=== PATIENT | female | born 1955 | race American Indian/Alaskan Native ===

== ENCOUNTER 2019-10-18 10:41 | Emergency (ER) | payer SELFPAY ==
[2019-10-18 11:17] VITALS: BP 221/93
[2019-10-18 11:55] LABS: Hematocrit 33.1 % (30.3-42.9); Hemoglobin 10.7 gm/dl (10.1-14.3); Mean Corpuscular HGB Conc 33 % (30-34); Mean Corpuscular Volume 93 fl (79-97); Platelet Count 235 K/mm3 (140-440); Red Blood Count 3.58 M/mm3 (3.65-5.03); Red Cell Distribution Width 18.5 % (13.2-15.2)
[2019-10-18 12:17] LABS: Calcium 7.8 mg/dL (8.4-10.2)
== END 2019-10-18 11:25 | disposition left against medical advice (07) ==
LOC: ED 10:41
DX: R10.2 Pelvic and perineal pain (principal); Z53.21 Procedure and treatment not carried out due to patient leaving prior to being seen by health care provider
CPT/HCPCS: 36415; 80053; 85027

== ENCOUNTER 2019-10-19 10:32 | Emergency (ER) | payer MEDICARE ==
[2019-10-19 10:50] VITALS: BP 217/91
[2019-10-19 11:27] LABS: Basophils # (Auto) 0.1 K/mm3 (0.0-0.1); Basophils % (Auto) 1.2 % (0.0-1.8); Eosinophils # (Auto) 0.1 K/mm3 (0.0-0.4); Eosinophils % (Auto) 1.6 % (0.0-4.3); Hematocrit 33.3 % (30.3-42.9); Hemoglobin 10.7 gm/dl (10.1-14.3); Lymphocytes # (Auto) 0.7 K/mm3 (1.2-5.4); Lymphocytes % (Auto) 15.2 % (13.4-35.0); Mean Corpuscular HGB Conc 32 % (30-34); Mean Corpuscular Volume 92 fl (79-97); Monocytes # (Auto) 0.3 K/mm3 (0.0-0.8); Monocytes % (Auto) 6.9 % (0.0-7.3); Platelet Count 260 K/mm3 (140-440); Red Blood Count 3.63 M/mm3 (3.65-5.03); Red Cell Distribution Width 18.6 % (13.2-15.2)
[2019-10-19 11:50] LABS: Albumin 3.3 g/dL (3.9-5); Calcium 8.1 mg/dL (8.4-10.2)
== END 2019-10-19 18:00 | disposition left against medical advice (07) ==
LOC: ED 10:32
DX: N18.6 End stage renal disease (principal); Z99.2 Dependence on renal dialysis
CPT/HCPCS: 36415; 80053; 85025

== ENCOUNTER 2019-11-20 23:37 | Emergency (ER) | payer MEDICARE, OTHER ==
[2019-11-21] MEDS ORDERED: ACETAMINOPHEN 325 MG TAB PO ONE ×2 (04:02→04:05)
[2019-11-21] MEDS ORDERED: ACETAMINOPHEN 325 MG TAB ONE (04:04)
[2019-11-21] MEDS ORDERED: HYDROcodone/ACETAMINOPHEN 5-325 MG TAB PO ONE (06:28)
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
[2019-11-21 08:18] VITALS: BP 109/49
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
== END 2019-11-21 08:40 | disposition home or self-care (01) ==
LOC: ED 23:37
DX: S13.4XXA Sprain of ligaments of cervical spine, initial encounter (principal); S39.012A Strain of muscle, fascia and tendon of lower back, initial encounter; I11.0 Hypertensive heart disease with heart failure; I50.9 Heart failure, unspecified; E11.9 Type 2 diabetes mellitus without complications; Z90.710 Acquired absence of both cervix and uterus; Z79.899 Other long term (current) drug therapy; Z88.8 Allergy status to other drugs, medicaments and biological substances; V49.49XA Driver injured in collision with other motor vehicles in traffic accident, initial encounter; Y93.89 Activity, other specified; Y92.410 Unspecified street and highway as the place of occurrence of the external cause; Y99.8 Other external cause status
CPT/HCPCS: 72040; 72072

== ENCOUNTER 2019-11-30 00:45 | Emergency (ER) | payer MEDICARE ==
[2019-11-30 02:20] LABS: Basophils # (Auto) 0.1 K/mm3 (0.0-0.1); Basophils % (Auto) 1.1 % (0.0-1.8); Eosinophils # (Auto) 0.2 K/mm3 (0.0-0.4); Eosinophils % (Auto) 3.8 % (0.0-4.3); Hematocrit 30.2 % (30.3-42.9); Hemoglobin 9.9 gm/dl (10.1-14.3); Lymphocytes # (Auto) 0.9 K/mm3 (1.2-5.4); Lymphocytes % (Auto) 15.1 % (13.4-35.0); Mean Corpuscular HGB Conc 33 % (30-34); Mean Corpuscular Volume 93 fl (79-97); Monocytes # (Auto) 0.5 K/mm3 (0.0-0.8); Monocytes % (Auto) 8.7 % (0.0-7.3); Platelet Count 290 K/mm3 (140-440); Red Blood Count 3.27 M/mm3 (3.65-5.03); Red Cell Distribution Width 17.8 % (13.2-15.2)
[2019-11-30 02:48] LABS: Albumin 3.6 g/dL (3.9-5); Calcium 8.4 mg/dL (8.4-10.2)
--- NOTE | 2019-11-30 02:48 | XRay Report ---
CHEST 2 VIEWS INDICATION / CLINICAL INFORMATION: Difficulty in breathing for one day. COMPARISON: One view of the chest from 11/06/2019. FINDINGS: SUPPORT DEVICES: The right internal jugular vein PermCath has been removed. Stable left internal jugu lar vein Port-A-Cath. HEART / MEDIASTINUM: Stable. LUNGS / PLEURA: Bibasilar opacities are again seen with a small right pleural effusion. No pneumothor ax. ADDITIONAL FINDINGS: No significant additional findings. IMPRESSION: 1. Similar bibasilar opacities with a small right pleural effusion. 2. Additional findings as above. Signer Name: Aditya Jackson MD Signed: 11/30/2019 2:43 AM Workstation Name: [id number]
--- NOTE | 2019-11-30 04:39 | Emergency Department Report ---
ED General Adult HPI - General Chief complaint: Dyspnea/Respdistress Stated complaint: DIALYSIS MARY Time Seen by Provider: 11/30/19 05:14 Source: patient, family, RN notes reviewed, old records reviewed Mode of arrival: Ambulatory Limitations: No Limitations - History of Present Illness Initial comments: Nephrology: Dr. Carroll Primary care doctor: Dr. Alize Ramirez The patient is a 64-year-old female, whom I have evaluated in the past. Has a history of COPD, not home oxygen dependent, distant history of breast cancer, , typically receives hemodialysis Tuesday, , Tuesday, heart disease, history of CABG, left upper extremity dialysis access. Patient typically receives dialysis on Tuesday, , Tuesday. Today is Tuesday. Her last hemodialysis session was Tuesday. She missed hemodialysis secondary to transportation issues Presents to the ER today with a primary complaint of painless shortness of breath. Worsens with physical exertion and laying flat. decreases with rest. Does not endorse headache, neck pain, chest pain, abdominal pain. Has bilateral lower extremity swelling. Endorses acute on chronic orthopnea. No fevers or chills. Also endorses left great toe skin avulsion, for which she saw her primary care doctor yesterday for. She reports that she is able to produce urine. -: Gradual Consistency: intermittent Improves with: rest Worsens with: movement - Related Data Home Medications Medication Instructions Recorded Confirmed Last Taken Atorvastatin [Lipitor] 40 mg PO DAILY 11/06/19 11/06/19 11/05/19 Gabapentin 100 mg PO DAILY 11/06/19 11/06/19 11/05/19 amLODIPine 10 mg PO DAILY 11/06/19 11/06/19 11/05/19 carvediloL [Coreg] 12.5 mg PO DAILY 11/06/19 11/06/19 11/05/19 Previous Rx's Medication Instructions Recorded Last Taken Type Acetaminophen [Acetaminophen 8 650 mg PO Q8H PRN #30 tablet.er 11/21/19 Unknown Rx Hour] Cyclobenzaprine HCl [Flexeril 5 MG 5 mg PO QHS PRN #20 tab 11/21/19 Unknown Rx TAB] Allergies Allergy/AdvReac Type Severity Reaction Status Date / Time clonidine Allergy Anaphylaxis Verified 10/18/19 11:07 iodine Allergy Anaphylaxis Verified 10/18/19 11:07 ED Review of Systems ROS: Stated complaint: DIALYSIS MARY Other details as noted in HPI Constitutional: see HPI Eyes: as per HPI ENT: as per HPI Respiratory: see HPI Cardiovascular: as per HPI Gastrointestinal: as per HPI Genitourinary: as per HPI Musculoskeletal: as per HPI Skin: as per HPI Neurological: as per HPI Psychiatric: as per HPI Hematological/Lymphatic: as per HPI ED Past Medical Hx - Past Medical History Previous Medical History?: Yes Hx Hypertension: Yes Hx Congestive Heart Failure: Yes Hx Diabetes: Yes Hx Renal Disease: Yes (, , Tue) Hx COPD: Yes Additional medical history: Breast CA - Surgical History Past Surgical History?: Yes Hx Open Heart Surgery: Yes (Quadruple Bypass) Additional Surgical History: Hysterectomy - Social History Smoking Status: Never Smoker Substance Use Type: None - Medications Home Medications: Home Medications Medication Instructions Recorded Confirmed Last Taken Type Atorvastatin [Lipitor] 40 mg PO DAILY 11/06/19 11/06/19 11/05/19 History Gabapentin 100 mg PO DAILY 11/06/19 11/06/19 11/05/19 History amLODIPine 10 mg PO DAILY 11/06/19 11/06/19 11/05/19 History carvediloL [Coreg] 12.5 mg PO DAILY 11/06/19 11/06/19 11/05/19 History Acetaminophen [Acetaminophen 8 650 mg PO Q8H PRN #30 tablet.er 11/21/19 Unknown Rx Hour] Cyclobenzaprine HCl [Flexeril 5 MG 5 mg PO QHS PRN #20 tab 11/21/19 Unknown Rx TAB] ED Physical Exam - General Limitations: No Limitations General appearance: alert, in no apparent distress - Head Head exam: Present: atraumatic, normocephalic - Eye Eye exam: Present: normal appearance, EOMI. Absent: nystagmus - ENT ENT exam: Present: normal exam, normal orophraynx, mucous membranes moist, normal external ear exam - Neck Neck exam: Present: normal inspection, full ROM. Absent: tenderness, meningismus - Respiratory Respiratory exam: Present: decreased breath sounds. Absent: respiratory distress, wheezes, rhonchi, stridor - Cardiovascular Cardiovascular Exam: Present: regular rate, normal rhythm, normal heart sounds. Absent: bradycardia, tachycardia, irregular rhythm, systolic murmur, diastolic murmur, rubs, gallop - GI/Abdominal GI/Abdominal exam: Present: soft. Absent: distended, tenderness, guarding, rebound, rigid, pulsatile mass - Extremities Exam Extremities exam: Present: normal inspection, full ROM, pedal edema (3+ edema noted in the bilateral lower extremities. There is no palpable cord. There is a negative Homans sign.), other (2+ pulses noted in the bilateral upper and lower extremities. There is no palpable cord. negative Homans sign. Muscular compartments are soft. The pelvis is stable.). Absent: calf tenderness - Back Exam Back exam: Present: normal inspection, full ROM. Absent: tenderness, CVA tenderness (R), CVA tenderness (L), paraspinal tenderness, vertebral tenderness - Neurological Exam Neurological exam: Present: alert, normal gait, other (There is no facial droop. The tongue is midline. Extraocular movements are intact bilaterally. There is 5 out of 5 strength in bilateral upper and lower extremities. Sensation is intact to light touch bilateral upper and lower extremities. There is a normal gait.). Absent: motor sensory deficit - Psychiatric Psychiatric exam: Present: normal affect, normal mood - Skin Skin exam: Present: warm, dry, intact, normal color, other (Upper extremity dial ysis access noted, left arm, with no redness, pus or streaking.). Absent: rash ED Course Vital Signs 11/30/19 11/30/19 11/30/19 01:05 04:59 05:00 Temperature 97.6 F 98.2 F Pulse Rate 80 78 83 Respiratory 20 22 Rate Blood Pressure 223/105 210/83 Blood Pressure 215/89 [Right] O2 Sat by Pulse 95 95 Oximetry 11/30/19 11/30/19 05:21 06:10 Temperature 98.3 F Pulse Rate 89 79 Respiratory 21 Rate Blood Pressure 212/93 Blood Pressure 174/72 [Right] O2 Sat by Pulse 92 Oximetry - Reevaluation(s) Reevaluation #1: 11/30/19 05:20 Differential diagnosis, including but not limited to: Hypertensive urgency, fluid overload, azotemia, uremia Assessment and plan: 64-year-old female with recurrent complaint of hypertension, lower extremity swelling, and shortness of breath. Laboratory studies reviewed and appreciated. Lung sounds are fairly clear, and she appears to be quite comfortable. JVD noted, we will treat with antihypertensive therapy. Discussed with her clin nurse covering, Dr. Ware, who advises Lasix, antihypertensive therapy, and request call back after initial interventions have been initiated, to determine patient's suitability for close outpatient follow-up, versus admission. 11/30/19 06:33 The patient is reassessed. Blood pressure is improved. We discussed with Dr. Ware. Patient is going to be set up for a short chair time today at her outpatient dialysis center, 10:15 in the morning, and then tomorrow will be her regularly scheduled dialysis. Discussed this with the patient. She understands the impor tance of following up closely today at 1015 for her dialysis, and tomorrow routinely. ED Medical Decision Making - Lab Data Result diagrams: 11/30/19 01:44 11/30/19 01:44 Vital Signs 11/30/19 11/30/19 11/30/19 01:05 04:59 05:00 Temperature 97.6 F 98.2 F Pulse Rate 80 78 83 Respiratory 20 22 Rate Blood Pressure 223/105 210/83 Blood Pressure 215/89 [Right] O2 Sat by Pulse 95 95 Oximetry Lab Results 11/30/19 11/30/19 Range/Units 01:44 01:44 WBC 5.6 (4.5-11.0) K/mm3 RBC 3.27 L (3.65-5.03) M/mm3 Hgb 9.9 L (10.1-14.3) gm/dl Hct 30.2 L (30.3-42.9) % MCV 93 (79-97) fl MCH 30 (28-32) pg MCHC 33 (30-34) % RDW 17.8 H (13.2-15.2) % Plt Count 290 (140-440) K/mm3 Lymph % (Auto) 15.1 (13.4-35.0) % [place] % (Auto) 8.7 H (0.0-7.3) % Eos % (Auto) 3.8 (0.0-4.3) % Baso % (Auto) 1.1 (0.0-1.8) % Lymph # 0.9 L (1.2-5.4) K/mm3 [place] # 0.5 (0.0-0.8) K/mm3 Eos # 0.2 (0.0-0.4) K/mm3 Baso # 0.1 (0.0-0.1) K/mm3 Seg Neutrophils % 71.3 H (40.0-70.0) % Seg Neutrophils # 4.0 (1.8-7.7) K/mm3 Sodium 140 (137-145) mmol/L Potassium 5.1 H (3.6-5.0) mmol/L Chloride 97.1 L (98-107) mmol/L Carbon Dioxide 21 L (22-30) mmol/L Anion Gap 27 mmol/L BUN 53 H (7-17) mg/dL Creatinine 9.4 H (0.7-1.2) mg/dL Estimated GFR 5 ml/min BUN/Creatinine Ratio 6 % Glucose 149 H (65-100) mg/dL Calcium 8.4 (8.4-10.2) mg/dL Total Bilirubin 0.30 (0.1-1.2) mg/dL AST 19 (5-40) units/L ALT 19 (7-56) units/L Alkaline Phosphatase 145 H (35-129) units/L Total Protein 6.4 (6.3-8.2) g/dL Albumin 3.6 L (3.9-5) g/dL Albumin/Globulin Ratio 1.3 % - EKG Data -: EKG Interpreted by Ct EKG shows normal: sinus rhythm - EKG Data When compared to previous EKG there are: no significant change 11/30/19 05:20 The EKG today shows a sinus rhythm, 77 bpm, normal axis, QTC 498 ms, left ventricular hypertrophy, low voltage, Q waves in the inferior leads, no en dorsement of chest pain, the EKG is abnormal, it is unchanged from prior EKG from 11/06/2019. - Radiology Data Radiology results: report reviewed, image reviewed Print Report Referring Physician: KAILASH PALENCIA III Patient Name: JOYCELYN WALTER Date of : 1955 Sex: Female Report Date: 2019-11-30 Report Status: Finalized Findings [facility] [address] [place] [address] XRay Report Signed Patient: JOYCELYN WALTER MR#: [id number] : 1955 Acct:[id number] Age/Sex: 64 / F ADM Date: 11/30/19 Loc: ED Attending Dr: Ordering Physician: KAILASH PALENCIA III, MD Date of Service: 11/30/19 Procedure(s): XR chest routine 2V Accession Number(s): [id number] cc: KAILASH PALENCIA III, MD Fluoro Time In Minutes: CHEST 2 VIEWS INDICATION / CLINICAL INFORMATION: Difficulty in breathing for one day. COMPARISON: One view of the chest from 11/06/2019. FINDINGS: SUPPORT DEVICES: The right internal jugular vein PermCath has been removed. Stable left internal jugular vein Port-A-Cath. HEART / MEDIASTINUM: Stable. LUNGS / PLEURA: Bibasilar opacities are again seen with a small right pleural effusion. No pneumothorax. ADDITIONAL FINDINGS: No significant additional findings. IMPRESSION: 1. Similar bibasilar opacities with a small right pleural effusion. 2. Additional findings as above. Signer Name: Aditya Jackson MD Signed: 11/30/2019 2:43 AM Workstation Name: [email or web address] Transcribed By: [place] Dictated By: Aditya Jackson MD Electronically Authenticated By: Aditya Jackson MD Signed Date/Time: 11/30/19 0243 Print Report Referring Physician: EDWIN KENNEY Patient Name: JOYCELYN WALTER Date of : 1955 Sex: Female Report Date: 2019-11-06 Report Status: Finalized Findings [facility] [address] [place] [address] XRa y Report Signed Patient: JOYCELYN WALTER MR#: [id number] : 1955 Acct:[id number] Age/Sex: 63 / F ADM Date: 11/06/19 Loc: ED Attending Dr: Ordering Physician: EDWIN KENNEY MD Date of Service: 11/06/19 Procedure(s): XR chest 1V ap Accession Number(s): [id number] cc: EDWIN KENNEY MD Fluoro Time In Minutes: CHEST 1 VIEW INDICATION / CLINICAL INFORMATION: sob. COMPARISON: None available. FINDINGS: SUPPORT DEVICES: Right PermCath tip projects at the expected location of the right atrium. Tip of the left Port-A-Cath projects the level the superior vena cava. HEART / MEDIASTINUM: There is prominence of the cardiac silhouette. Changes of prior median sternotomy are noted LUNGS / PLEURA: There is patchy airspace opacity noted in the lung bases. There is mild bilateral interstitial disease likely representing edema.. No pneumothorax. ADDITIONAL FINDINGS: No significant additional fi ndings. IMPRESSION: 1. There is mild patchy airspace opacity in the lung bases. There is mild diffuse interstitial disease likely representing edema. Signer Name: Naseem Charles MD Signed: 11/06/2019 8:00 AM Workstation Name: [id number] Transcribed By: SS Dictated By: Naseem Charles MD Electronically Authenticated By: Naseem Charles MD Signed Date/Time: 11/06/19 0800 Critical care attestation.: If time is entered above; I have spent that time in minutes in the direct care of this critically ill patient, excluding procedure time. ED Disposition Clinical Impression: Hypertension, Hypertensive chronic kidney disease with stage 5 chronic kidney disease or end stage renal disease, Dependent edema Disposition: DC-01 TO HOME OR SELFCARE Is pt being admited?: No Does the pt Need Aspirin: No Condition: Stable Instructions: Hypertension (ED) Additional Instructions: Please continue current outpatient medications. Patient should go to her outpatient dialysis center today, for a scheduled chair time at 10:15 in the morning. Then, she should continue her outpatient dialysis tomorrow, Tuesday as scheduled. It is very important that patient go to her outpatient dialysis sessions. Noncompliance with dialysis sessions may cause fluid overload, res piratory distress, hypertension, which of uncontrolled may cause disability, paralysis, loss of quality of life, or even . Please continue current outpatient medications. Avoid heavy lifting and strenuous physical activity, and make certain to consume a diet that is appropriate for patient's renal insufficiency. Please return to the emergency room right away with new, worsened or different symptoms not present on the initial emergency room evaluation. Patient should go to her outpatient dialysis center at the following address: [facility] * Address: [address] [place] [address] * * Hours: Open Closes 4 PM Referrals: DINH WARE, [Staff Physician] - 3-5 Days PARK,HOSSEIN-KI, MD [Staff Physician] - 3-5 Days
[2019-11-30] MEDS: amLODIPine 10 MG TAB PO STA (05:00)
[2019-11-30] MEDS: carvediloL 12.5 MG TAB PO STA (05:21)
[2019-11-30] MEDS: FUROSEMIDE 40 MG/4 ML INJ IV ONE (05:30)
[2019-11-30 06:10] VITALS: BP 174/72
== END 2019-11-30 07:00 | disposition home or self-care (01) ==
LOC: ED 00:45
DX: I13.2 Hypertensive heart and chronic kidney disease with heart failure and with stage 5 chronic kidney disease, or end stage renal disease (principal); E11.22 Type 2 diabetes mellitus with diabetic chronic kidney disease; N18.6 End stage renal disease; I50.9 Heart failure, unspecified; R60.9 Edema, unspecified; J44.9 Chronic obstructive pulmonary disease, unspecified; Z90.710 Acquired absence of both cervix and uterus; Z79.899 Other long term (current) drug therapy; Z88.8 Allergy status to other drugs, medicaments and biological substances; Z91.048 Other nonmedicinal substance allergy status
CPT/HCPCS: 36415; 71046; 80053; 85025; 93005; 93010; 96374; 99284; J1940

== ENCOUNTER 2019-12-10 01:30 | Emergency (ER) | payer MEDICARE ==
[2019-12-10] MEDS ORDERED: IPRATROPIUM/ALBUTEROL SULFATE 3 ML AMPUL.NEB IH ONE (01:58)
[2019-12-10] MEDS ORDERED: FUROSEMIDE 100 MG/10 ML INJ IV ONE (01:58)
--- NOTE | 2019-12-10 02:04 | Emergency Department Report ---
ED Shortness of Breath HPI - General Chief Complaint: Dyspnea/Respdistress Stated Complaint: DIFF BREATHING Time Seen by Provider: 12/10/19 01:56 Source: patient Mode of arrival: Wheelchair Limitations: No Limitations - History of Present Illness Initial Comments: Chief complaint "I just could not breathe." HPI: Mrs. Ramsey is a 64-year-old female with history of end-stage renal disease on hemodialysis Tuesday, COPD, CAD status post four-vessel CABG, diabetes mellitus breast cancer in remission, who presents with shortness of breath. Shortness of breath is worse when she lays down. She underwent 3 hours of dialysis on yesterday. She she explains that "I think I have some fluid on me". She denies pain. She has been compliant with her medications. Her day light relief operator is Dr. Carroll. PCP Dr. Ramirez. She received dialysis at [facility] [place]. She still does produce some urine. MD Complaint: shortness of breath -: Gradual, days(s) (1) Severity: mild Consistency: constant Improves With: upright position Worsens With: lying flat Known History Of: COPD, other (End-stage renal disease dialysis dependent) Associated Symptoms: denies other symptoms - Related Data Home Medications Medication Instructions Recorded Confirmed Last Taken Atorvastatin [Lipitor] 40 mg PO DAILY 11/06/19 11/06/19 11/05/19 Gabapentin 100 mg PO DAILY 11/06/19 11/06/19 11/05/19 amLODIPine 10 mg PO DAILY 11/06/19 11/06/19 11/05/19 carvediloL [Coreg] 12.5 mg PO DAILY 11/06/19 11/06/19 11/05/19 Previous Rx's Medication Instructions Recorded Last Taken Type Acetaminophen [Acetaminophen 8 650 mg PO Q8H PRN #30 tablet.er 11/21/19 Unknown Rx Hour] Cyclobenzaprine HCl [Flexeril 5 MG 5 mg PO QHS PRN #20 tab 11/21/19 Unknown Rx TAB] Allergies Allergy/AdvReac Type Severity Reaction Status Date / Time clonidine Allergy Anaphylaxis Verified 10/18/19 11:07 iodine Allergy Anaphylaxis Verified 10/18/19 11:07 ED Review of Systems ROS: Stated complaint: DIFF BREATHING Other details as noted in HPI Comment: All other systems reviewed and negative Constitutional: denies: fever, malaise Respiratory: shortness of breath. denies: cough Cardiovascular: orthopnea, paroxysmal nocturnal dyspnea. denies: chest pain Gastrointestinal: denies: abdominal pain, nausea, vomiting ED Past Medical Hx - Past Medical History Previous Medical History?: Yes Hx Hypertension: Yes Hx Congestive Heart Failure: Yes Hx Diabetes: Yes Hx Renal Disease: Yes (Tues, Thurs, Sat) Hx of Cancer: Yes (breast cancer free at present) Hx COPD: Yes Additional medical history: Breast CA - Surgical History Past Surgical History?: Yes Hx Open Heart Surgery: Yes (Quadruple Bypass) Additional Surgical History: Hysterectomy - Social History Smoking Status: Never Smoker Substance Use Type: None - Medications Home Medications: Home Medications Medication Instructions Recorded Confirmed Last Taken Type Atorvastatin [Lipitor] 40 mg PO DAILY 11/06/19 11/06/19 11/05/19 History Gabapentin 100 mg PO DAILY 11/06/19 11/06/19 11/05/19 History amLODIPine 10 mg PO DAILY 11/06/19 11/06/19 11/05/19 History carvediloL [Coreg] 12.5 mg PO DAILY 11/06/19 11/06/19 11/05/19 History Acetaminophen [Acetaminophen 8 650 mg PO Q8H PRN #30 tablet.er 11/21/19 Unknown Rx Hour] Cyclobenzaprine HCl [Flexeril 5 MG 5 mg PO QHS PRN #20 tab 11/21/19 Unknown Rx TAB] ED Physical Exam - General Limitations: No Limitations General appearance: alert, in no apparent distress, other (Appears well, speaking full word sentences comfortably) - Head Head exam: Present: atraumatic, normocephalic - Eye Eye exam: Present: normal appearance - ENT ENT exam: Present: mucous membranes moist - Neck Neck exam: Present: normal inspection, full ROM - Respiratory Respiratory exam: Present: normal lung sounds bilaterally. Absent: respiratory distress, wheezes, rales, rhonchi - Cardiovascular Cardiovascular Exam: Present: regular rate, normal rhythm, normal heart sounds. Absent: rubs, gallop - GI/Abdominal GI/Abdominal exam: Present: soft. Absent: distended, tenderness, guarding, rebound - Extremities Exam Extremities exam: Present: pedal edema - Neurological Exam Neurological exam: Present: alert, oriented X3 - Psychiatric Psychiatric exam: Present: normal affect, normal mood - Skin Skin exam: Present: warm, dry, intact, normal color. Absent: rash ED Course Vital Signs 12/10/19 12/10/19 12/10/19 01:41 02:03 02:16 Temperature 98.7 F 98.7 F Pulse Rate 88 88 87 Pulse Rate [ Anterior Bilateral Throughout] Respiratory 18 14 22 Rate Respiratory Rate [Anterior Bilateral Throughout] Blood Pressure 218/102 220/100 Blood Pressure 215/109 [Right] O2 Sat by Pulse 96 99 97 Oximetry 12/10/19 12/10/19 12/10/19 02:24 02:33 02:46 Temperature Pulse Rate 73 76 Pulse Rate [ 77 Anterior Bilateral Throughout] Respiratory 17 Rate Respiratory 18 Rate [Anterior Bilateral Throughout] Blood Pressure 220/100 171/84 Blood Pressure [Right] O2 Sat by Pulse 99 Oximetry ED Medical Decision Making - Lab Data Result diagrams: 12/10/19 02:15 12/10/19 02:15 - EKG Data EKG shows normal: sinus rhythm, axis, intervals, QRS complexes, ST-T waves Rate: normal - EKG Data Interpretation: normal EKG - Radiology Data Radiology results: report reviewed Chest radiograph: No change from prior minimal pleural effusion scarring versus interstitial edema - Medical Decision Making Ms. Ramsey presents with shortness of breath. Differential diagnosis includes COPD exacerbation versus pulmonary edema. Symptoms improved with DuoNeb, blood pressure control IV labetalol repeat blood pressure 172 systolic, she also received IV Lasix 100 mg. On reassessment patient was able to lay in a semi-sup ine position in 45 degrees. She understands to contact her day light relief operator or hemodialysis clinic for extra dialysis session today. She is discharged home. Critical care attestation.: If time is entered above; I have spent that time in minutes in the direct care of this critically ill patient, excluding procedure time. ED Disposition Clinical Impression: Dyspnea, End stage renal disease on dialysis, COPD (chronic obstructive pul monary disease) Disposition: DC-01 TO HOME OR SELFCARE Is pt being admited?: No Does the pt Need Aspirin: No Condition: Stable Additional Instructions: Please contact your day light relief operator or dialysis clinic today as discussed. Referrals: CARLTON CARROLL MD [Staff Physician] - 3-5 Days
[2019-12-10 02:28] LABS: Eosinophils # (Auto) 0.2 K/mm3 (0.0-0.4); Eosinophils % (Auto) 3.3 % (0.0-4.3); Hematocrit 30.3 % (30.3-42.9); Hemoglobin 9.9 gm/dl (10.1-14.3); Lymphocytes # (Auto) 0.9 K/mm3 (1.2-5.4); Lymphocytes % (Auto) 16.8 % (13.4-35.0); Mean Corpuscular HGB Conc 33 % (30-34); Mean Corpuscular Volume 92 fl (79-97); Monocytes # (Auto) 0.6 K/mm3 (0.0-0.8); Monocytes % (Auto) 11.8 % (0.0-7.3); Platelet Count 266 K/mm3 (140-440); Red Blood Count 3.29 M/mm3 (3.65-5.03); Red Cell Distribution Width 16.4 % (13.2-15.2)
--- NOTE | 2019-12-10 02:30 | XRay Report ---
CHEST 1 VIEW INDICATION: Dyspnea. COMPARISON: 11/30/2019 FINDINGS: Support devices: Unchanged. Heart: Stable. Lungs/Pleura: There is persistent blunting at the right costophrenic angle which may be due to pleura l thickening. Adjacent right basilar opacities may be atelectatic. No consolidation, significant effu ye, or pneumothorax. IMPRESSION: 1. No significant change. Signer Name: Leland Alfonso MD Signed: 12/10/2019 2:26 AM Workstation Name: [email or web address]
[2019-12-10 02:40] LABS: Albumin 3.4 g/dL (3.9-5); Calcium 8.9 mg/dL (8.4-10.2)
[2019-12-10 02:54] VITALS: BP 171/84
== END 2019-12-10 03:30 | disposition home or self-care (01) ==
LOC: ED 01:30
DX: I13.2 Hypertensive heart and chronic kidney disease with heart failure and with stage 5 chronic kidney disease, or end stage renal disease (principal); E11.22 Type 2 diabetes mellitus with diabetic chronic kidney disease; N18.6 End stage renal disease; I50.9 Heart failure, unspecified; J44.9 Chronic obstructive pulmonary disease, unspecified; Z90.710 Acquired absence of both cervix and uterus; Z98.890 Other specified postprocedural states; Z79.899 Other long term (current) drug therapy; Z91.048 Other nonmedicinal substance allergy status; Z88.8 Allergy status to other drugs, medicaments and biological substances; Z99.2 Dependence on renal dialysis
CPT/HCPCS: 36415; 71045; 80053; 85025; 93005; 93010; 94640; 96374; 96375; 99284; J1940; 94644

== ENCOUNTER 2019-12-13 00:16 | Emergency (ER) | payer MEDICARE ==
[2019-12-13] MEDS ORDERED: HYDROcodone/ACETAMINOPHEN 10-325MG TAB PO ONE (00:57)
--- NOTE | 2019-12-13 01:00 | Emergency Department Report ---
ED General Adult HPI - General Chief complaint: Extremity Injury, Lower Stated complaint: RT LEG PAIN Time Seen by Provider: 12/13/19 00:38 Source: patient Mode of arrival: Ambulatory Limitations: No Limitations - History of Present Illness Initial comments: 64-year-old female with a history of COPD, coronary disease, diabetes, breast cancer in remission and end-stage renal disease on Tuesday schedule presents with complaint of lower extremity pain for the past 2 weeks. Patient states that she is also noticed swelling of bilateral lower extremities in the past 2 weeks. Patient denies any history of DVT in the lower extremities. Patient states that sometimes her knee goes out on her right side and she fell on her right knee. Patient states she saw her primary care doctor regarding her left toe 2 weeks ago and had x-rays performed as well as a wound culture but is not currently on any antibiotic therapy. Patient denies any chest pain at current time. - Related Data Home Medications Medication Instructions Recorded Confirmed Last Taken Atorvastatin [Lipitor] 40 mg PO DAILY 11/06/19 11/06/19 11/05/19 Gabapentin 100 mg PO DAILY 11/06/19 11/06/19 11/05/19 amLODIPine 10 mg PO DAILY 11/06/19 11/06/19 11/05/19 carvediloL [Coreg] 12.5 mg PO DAILY 11/06/19 11/06/19 11/05/19 Previous Rx's Medication Instructions Recorded Last Taken Type Acetaminophen [Acetaminophen 8 650 mg PO Q8H PRN #30 tablet.er 11/21/19 Unknown Rx Hour] Cyclobenzaprine HCl [Flexeril 5 MG 5 mg PO QHS PRN #20 tab 11/21/19 Unknown Rx TAB] HYDROcodone/APAP 5-325 [[place] 1 each PO Q6HR PRN #18 tablet 12/13/19 Unknown Rx 5/325] Allergies Allergy/AdvReac Type Severity Reaction Status Date / Time clonidine Allergy Anaphylaxis Verified 10/18/19 11:07 iodine Allergy Anaphylaxis Verified 10/18/19 11:07 ED Review of Systems ROS: Stated complaint: RT LEG PAIN Other details as noted in HPI Constitutional: denies: chills, fever Eyes: denies: eye pain, eye discharge, vision change ENT: denies: ear pain, throat pain Respiratory: denies: cough, shortness of breath, wheezing Cardiovascular: denies: chest pain, palpitations Endocrine: no symptoms reported Gastrointestinal: denies: abdominal pain, nausea, diarrhea Genitourinary: denies: urgency, dysuria, discharge Musculoskeletal: myalgia Skin: denies: rash, lesions Neurological: denies: headache, weakness, paresthesias Psychiatric: denies: anxiety, depression Hematological/Lymphatic: denies: easy bleeding, easy bruising ED Past Medical Hx - Past Medical History Previous Medical History?: Yes Hx Hypertension: Yes Hx Congestive Heart Failure: Yes Hx Diabetes: Yes Hx Renal Disease: Yes (Tues, Thurs, Sat) Hx COPD: Yes Additional medical history: Breast CA - Surgical History Past Surgical History?: Yes Hx Open Heart Surgery: Yes (Quadruple Bypass) Additional Surgical History: Hysterectomy - Social History Smoking Status: Former Smoker Substance Use Type: None - Medications Home Medications: Home Medications Medication Instructions Recorded Confirmed Last Taken Type Atorvastatin [Lipitor] 40 mg PO DAILY 11/06/19 11/06/19 11/05/19 History Gabapentin 100 mg PO DAILY 11/06/19 11/06/19 11/05/19 History amLODIPine 10 mg PO DAILY 11/06/19 11/06/19 11/05/19 History carvediloL [Coreg] 12.5 mg PO DAILY 11/06/19 11/06/19 11/05/19 History Acetaminophen [Acetaminophen 8 650 mg PO Q8H PRN #30 tablet.er 11/21/19 Unknown Rx Hour] Cyclobenzaprine HCl [Flexeril 5 MG 5 mg PO QHS PRN #20 tab 11/21/19 Unknown Rx TAB] HYDROcodone/APAP 5-325 [[place] 1 each PO Q6HR PRN #18 tablet 12/13/19 Unknown Rx 5/325] ED Physical Exam - General Limitations: No Limitations General appearance: alert, in no apparent distress - Head Head exam: Present: atraumatic, normocephalic - Eye Eye exam: Present: normal appearance - ENT ENT exam: Present: mucous membranes moist - Neck Neck exam: Present: normal inspection - Respiratory Respiratory exam: Present: normal lung sounds bilaterally. Absent: respiratory distress - Cardiovascular Cardiovascular Exam: Present: regular rate, normal rhythm, other (Auscultated thrill appreciated in the left upper extremity; bilateral mastectomy; midline bypass scar in chest wall). Absent: systolic murmur, diastolic murmur, rubs, gallop - GI/Abdominal GI/Abdominal exam: Present: soft, normal bowel sounds - Extremities Exam Extremities exam: Present: normal inspection, tenderness (Noted in the right knee region without any evidence of erythema or ecchymosis.), calf tenderness (Noted in the right calf region), other (Bilateral lower extremity edema present with more prominent swelling in the left lower extremity.) - Back Exam Back exam: Present: normal inspection - Neurological Exam Neurological exam: Present: alert, oriented X3 - Psychiatric Psychiatric exam: Present: normal affect, normal mood - Skin Skin exam: Present: warm, dry, intact, normal color. Absent: rash ED Course Vital Signs 12/13/19 12/13/19 12/13/19 00:20 00:26 01:00 Temperature 98.3 F Pulse Rate 74 74 Respiratory 18 22 Rate Blood Pressure 193/87 Blood Pressure 201/82 [Right] O2 Sat by Pulse 95 90 Oximetry ED Medical Decision Making - Medical Decision Making Patient received [place] therapy while here in emergency department. - Differential Diagnosis DVT; fracture; ruptured Huitron's cyst; dislocation Critical care attestation.: If time is entered above; I have spent that time in minutes in the direct care of this critically ill patient, excluding procedure time. ED Disposition Clinical Impression: End stage renal disease on dialysis, Lower extremity pain Disposition: TO HOME OR SELFCARE Is pt being admited?: No Condition: Stable Instructions: Chronic Kidney Disease (ED), Arthralgia (ED) Prescriptions: HYDROcodone/APAP 5-325 [[place] 5/325] 1 each PO Q6HR PRN #18 tablet PRN Reason: Pain Time of Disposition: 03:05 Print Language: KYRGYZ
--- NOTE | 2019-12-13 01:40 | XRay Report ---
RIGHT KNEE 4 VIEWS INDICATION: knee pain. COMPARISON: No relevant prior imaging study available. FINDINGS: There is advanced tricompartmental osteoarthrosis greatest at the lateral compartment. No acute, disp laced fracture or dislocation is seen. There is a trace joint effusion. IMPRESSION: 1. No acute findings. Signer Name: Leland Alfonso MD Signed: 12/13/2019 1:36 AM Workstation Name: [id number]
--- NOTE | 2019-12-13 03:01 | Vascular Lab Report ---
DUPLEX DOPPLER LOWER EXTREMITY VEINS, BILATERAL INDICATION: lower extremity pain. TECHNIQUE: Duplex doppler imaging was performed through the veins of both lower extremities using venous donna ye and other maneuvers. COMPARISON: None available. FINDINGS: Right Common Femoral vein: Negative. Right Superficial Femoral vein: Negative. Right Popliteal vein: Negative. Right Calf veins: Negative. Left Common Femoral vein: Negative. Left Superficial Femoral vein: Negative. Left Popliteal vein: Negative. Left Calf veins: Negative. Additional findings: There is echogenic thrombus within the cephalad portion of the left greater saph enous vein IMPRESSION: 1. No sonographic evidence for DVT in either lower extremity. 2. Focal superficial venous thrombosis within the left greater saphenous vein. Signer Name: Leland Alfonso MD Signed: 12/13/2019 2:57 AM Workstation Name: [id number]
[2019-12-13 03:11] VITALS: BP 195/97
== END 2019-12-13 03:15 | disposition home or self-care (01) ==
LOC: ED 00:16
DX: I13.2 Hypertensive heart and chronic kidney disease with heart failure and with stage 5 chronic kidney disease, or end stage renal disease (principal); N18.6 End stage renal disease; I50.9 Heart failure, unspecified; E11.22 Type 2 diabetes mellitus with diabetic chronic kidney disease; M79.604 Pain in right leg; J44.9 Chronic obstructive pulmonary disease, unspecified; Z85.3 Personal history of malignant neoplasm of breast; Z90.710 Acquired absence of both cervix and uterus; Z98.890 Other specified postprocedural states; Z91.041 Radiographic dye allergy status; Z88.8 Allergy status to other drugs, medicaments and biological substances; Z87.891 Personal history of nicotine dependence; Z79.899 Other long term (current) drug therapy; Z99.2 Dependence on renal dialysis
CPT/HCPCS: 93970

== ENCOUNTER 2019-12-14 01:15 | Emergency (ER) | payer MEDICAID, MEDICARE ==
[2019-12-14 02:16] LABS: Basophils # (Auto) 0.1 K/mm3 (0.0-0.1); Basophils % (Auto) 1.3 % (0.0-1.8); Eosinophils # (Auto) 0.1 K/mm3 (0.0-0.4); Hematocrit 32.2 % (30.3-42.9); Hemoglobin 10.4 gm/dl (10.1-14.3); Lymphocytes # (Auto) 0.6 K/mm3 (1.2-5.4); Lymphocytes % (Auto) 13.4 % (13.4-35.0); Mean Corpuscular HGB Conc 32 % (30-34); Mean Corpuscular Volume 93 fl (79-97); Monocytes # (Auto) 0.5 K/mm3 (0.0-0.8); Monocytes % (Auto) 10.2 % (0.0-7.3); Platelet Count 290 K/mm3 (140-440); Red Blood Count 3.45 M/mm3 (3.65-5.03); Red Cell Distribution Width 17.1 % (13.2-15.2)
--- NOTE | 2019-12-14 02:20 | XRay Report ---
CHEST 1 VIEW INDICATION: Chest Pain. COMPARISON: 12/10/2019 FINDINGS: Support devices: Unchanged. Heart: Stable. Lungs/Pleura: Blunting of the right costophrenic angle may be due to pleural thickening. There is adj acent right basilar scarring. There is pulmonary venous hypertension. I suspect there is mild interst itial edema. IMPRESSION: 1. Cardiomegaly with pulmonary venous hypertension. Probable mild interstitial edema. 2. Stable pleural-parenchymal scarring in the right lower hemithorax. Signer Name: Leland Alfonso MD Signed: 12/14/2019 2:16 AM Workstation Name: [id number]
[2019-12-14 02:37] LABS: Calcium 8.9 mg/dL (8.4-10.2)
[2019-12-14 02:59] VITALS: BP 225/99
--- NOTE | 2019-12-14 03:15 | Emergency Department Report ---
ED Shortness of Breath HPI - General Chief Complaint: Dyspnea/Respdistress Stated Complaint: SOB COUGHING Time Seen by Provider: 12/14/19 02:55 Source: patient Mode of arrival: Ambulatory Limitations: No Limitations - History of Present Illness Initial Comments: 64-year-old female with history of ESRD presents to ED with shortness of breath that awoke her from sleep. Patient states she felt the need to get up and walk around, open the door and get some fresh air. Patient states currently she feels much better. states this usually happens at this exact same time every morning "for a long time now", where patient will feel as if she is experiencing some shortness of breath. Patient denies any chest pain. Patient reports yesterday she went to dialysis, but was only dialyzed for 2 hours because she had another doctor's appointment. Patient is scheduled to return a couple of hours from now at 9:30 AM so that they can complete her dialysis. Patient is currently symptom-free. O2 sats are normal. MD Complaint: shortness of breath -: hour(s) (2) Consistency: now resolved Improves With: other (walking around, getting fresh air) Worsens With: nothing Known History Of: COPD, other (ESRD) Treatments Prior to Arrival: none - Related Data Home Oxygen Therapy: No Home Medications Medication Instructions Recorded Confirmed Last Taken Atorvastatin [Lipitor] 40 mg PO DAILY 11/06/19 11/06/19 11/05/19 Gabapentin 100 mg PO DAILY 11/06/19 11/06/19 11/05/19 amLODIPine 10 mg PO DAILY 11/06/19 11/06/19 11/05/19 carvediloL [Coreg] 12.5 mg PO DAILY 11/06/19 11/06/19 11/05/19 Previous Rx's Medication Instructions Recorded Last Taken Type Acetaminophen [Acetaminophen 8 650 mg PO Q8H PRN #30 tablet.er 11/21/19 Unknown Rx Hour] Cyclobenzaprine HCl [Flexeril 5 MG 5 mg PO QHS PRN #20 tab 11/21/19 Unknown Rx TAB] HYDROcodone/APAP 5-325 [[place] 1 each PO Q6HR PRN #18 tablet 12/13/19 Unknown Rx 5/325] Allergies Allergy/AdvReac Type Severity Reaction Status Date / Time clonidine Allergy Anaphylaxis Verified 10/18/19 11:07 iodine Allergy Anaphylaxis Verified 10/18/19 11:07 ED Review of Systems ROS: Stated complaint: SOB COUGHING Other details as noted in HPI Comment: All other systems reviewed and negative Constitutional: denies: chills, fever Respiratory: shortness of breath. denies: cough Cardiovascular: denies: chest pain Gastrointestinal: denies: nausea, vomiting ED Past Medical Hx - Past Medical History Previous Medical History?: Yes Hx Hypertension: Yes Hx Congestive Heart Failure: Yes Hx Diabetes: Yes Hx Renal Disease: Yes (Tues, Thurs, Sat) Hx COPD: Yes Additional medical history: Breast CA - Surgical History Past Surgical History?: Yes Hx Open Heart Surgery: Yes (Quadruple Bypass) Additional Surgical History: Hysterectomy - Social History Smoking Status: Never Smoker Substance Use Type: None - Medications Home Medications: Home Medications Medication Instructions Recorded Confirmed Last Taken Type Atorvastatin [Lipitor] 40 mg PO DAILY 11/06/19 11/06/19 11/05/19 History Gabapentin 100 mg PO DAILY 11/06/19 11/06/19 11/05/19 History amLODIPine 10 mg PO DAILY 11/06/19 11/06/19 11/05/19 History carvediloL [Coreg] 12.5 mg PO DAILY 11/06/19 11/06/19 11/05/19 History Acetaminophen [Acetaminophen 8 650 mg PO Q8H PRN #30 tablet.er 11/21/19 Unknown Rx Hour] Cyclobenzaprine HCl [Flexeril 5 MG 5 mg PO QHS PRN #20 tab 11/21/19 Unknown Rx TAB] HYDROcodone/APAP 5-325 [[place] 1 each PO Q6HR PRN #18 tablet 12/13/19 Unknown Rx 5/325] ED Physical Exam - General Limitations: No Limitations General appearance: alert, in no apparent distress - Head Head exam: Present: atraumatic, normocephalic - Eye Eye exam: Present: normal appearance, EOMI - ENT ENT exam: Present: mucous membranes moist - Neck Neck exam: Present: normal inspection - Respiratory Respiratory exam: Present: normal lung sounds bilaterally. Absent: respiratory distress, rales - Cardiovascular Cardiovascular Exam: Present: regular rate, normal rhythm - GI/Abdominal GI/Abdominal exam: Present: soft. Absent: distended, tenderness - Neurological Exam Neurological exam: Present: alert, oriented X3 - Psychiatric Psychiatric exam: Present: normal affect, normal mood - Skin Skin exam: Present: warm, dry, intact, normal color. Absent: rash ED Course Vital Signs 12/14/19 02:55 Pulse Rate 75 Respiratory 13 Rate Blood Pressure 225/99 [right arm] O2 Sat by Pulse 96 Oximetry ED Medical Decision Making - Lab Data Result diagrams: 12/14/19 01:51 12/14/19 01:51 - EKG Data -: EKG Interpreted by Me EKG shows normal: sinus rhythm, axis, QRS complexes, ST-T waves Rate: normal - EKG Data Interpretation: no acute changes, other (prolonged QT) - Radiology Data Radiology results: report reviewed, image reviewed - Medical Decision Making 64-year-old female with report of shortness of breath that is currently resolved. Chest x-ray shows mild pulmonary edema, however patient has normal O2 sats on room air. She is in no respiratory distress. Lung sounds are clear. Patient is speaking in full sentences laying supine on the stretcher. Patient is scheduled to report back to dialysis in a couple of hours. Troponin is elevated at 0.153, however EKG shows no ST changes, patient has no chest pain, and elevated troponin is most likely the result of her renal function. Patient will not benefit from admission since she is already scheduled to go to dialysis later this morning. We will discharge home at this time. Critical care attestation.: If time is entered above; I have spent that time in minutes in the direct care of this critically ill patient, excluding procedure time. ED Disposition Clinical Impression: Dyspnea Disposition: DC-01 TO HOME OR SELFCARE Is pt being admited?: No Condition: Stable Instructions: Dyspnea (ED) Referrals: PRIMARY CARE, [Referring] - [facility] Time of Disposition: 03:32
[2019-12-14 04:23] LABS: Chol/HDL Ratio 2.46 %
== END 2019-12-14 03:45 | disposition home or self-care (01) ==
LOC: ED 01:15
DX: R06.02 Shortness of breath (principal); I11.0 Hypertensive heart disease with heart failure; I50.9 Heart failure, unspecified; E11.9 Type 2 diabetes mellitus without complications; J44.9 Chronic obstructive pulmonary disease, unspecified; Z85.3 Personal history of malignant neoplasm of breast
CPT/HCPCS: 36415; 71045; 80048; 80061; 84484; 85025; 93005; 93010

== ENCOUNTER 2019-12-18 12:24 | Emergency (ER) | payer MEDICARE, OTHER ==
--- NOTE | 2019-12-18 12:42 | Emergency Department Report ---
ED Shortness of Breath HPI - General Chief Complaint: High BP Stated Complaint: HBP/DIALYSIS PATIENT Time Seen by Provider: 12/18/19 12:37 Source: patient Mode of arrival: Ambulatory Limitations: No Limitations - History of Present Illness Initial Comments: Mrs. Ramsey is a 64 yo female with hx of HTN, COPD, ESRD on HD TRSa, CAD status post CABG who presents with elevated blood pressure at dialysis today. Dr. Carroll recommended EMS transport to ED. Mrs. Ramsey has been without blood pressure medications since Tuesday. Has mild shortness of breath currently. MD Complaint: shortness of breath -: Gradual, days(s) (1) Severity: mild Consistency: constant Improves With: nothing Worsens With: nothing Known History Of: congestive heart failure, other (End-stage renal disease) Associated Symptoms: denies other symptoms - Related Data Home Medications Medication Instructions Recorded Confirmed Last Taken Atorvastatin [Lipitor] 40 mg PO DAILY 11/06/19 11/06/19 11/05/19 Gabapentin 100 mg PO DAILY 11/06/19 11/06/19 11/05/19 amLODIPine 10 mg PO DAILY 11/06/19 11/06/19 11/05/19 carvediloL [Coreg] 12.5 mg PO DAILY 11/06/19 11/06/19 11/05/19 Previous Rx's Medication Instructions Recorded Last Taken Type Acetaminophen [Acetaminophen 8 650 mg PO Q8H PRN #30 tablet.er 11/21/19 Unknown Rx Hour] Cyclobenzaprine HCl [Flexeril 5 MG 5 mg PO QHS PRN #20 tab 11/21/19 Unknown Rx TAB] HYDROcodone/APAP 5-325 [[place] 1 each PO Q6HR PRN #18 tablet 12/13/19 Unknown Rx 5/325] amLODIPine 10 mg PO DAILY 90 Days #90 tab 12/18/19 Unknown Rx carvediloL [Coreg] 12.5 mg PO BID 90 Days #180 tablet 12/18/19 Unknown Rx Allergies Allergy/AdvReac Type Severity Reaction Status Date / Time clonidine Allergy Anaphylaxis Verified 10/18/19 11:07 iodine Allergy Anaphylaxis Verified 10/18/19 11:07 shellfish derived AdvReac Angioedema Verified 12/18/19 13:02 ED Review of Systems ROS: Stated complaint: HBP/DIALYSIS PATIENT Other details as noted in HPI Comment: All other systems reviewed and negative Constitutional: denies: fever, malaise Respiratory: shortness of breath. denies: cough Cardiovascular: denies: chest pain ED Past Medical Hx - Past Medical History Previous Medical History?: Yes Hx Hypertension: Yes Hx Congestive Heart Failure: Yes Hx Diabetes: Yes Hx Renal Disease: Yes (Tues, Thurs, Sat) Hx COPD: Yes Additional medical history: Breast CA - Surgical History Past Surgical History?: Yes Hx Open Heart Surgery: Yes (Quadruple Bypass) Additional Surgical History: Hysterectomy - Social History Smoking Status: Never Smoker Substance Use Type: None - Medications Home Medications: Home Medications Medication Instructions Recorded Confirmed Last Taken Type Atorvastatin [Lipitor] 40 mg PO DAILY 11/06/19 11/06/19 11/05/19 History Gabapentin 100 mg PO DAILY 11/06/19 11/06/19 11/05/19 History amLODIPine 10 mg PO DAILY 11/06/19 11/06/19 11/05/19 History carvediloL [Coreg] 12.5 mg PO DAILY 11/06/19 11/06/19 11/05/19 History Acetaminophen [Acetaminophen 8 650 mg PO Q8H PRN #30 tablet.er 11/21/19 Unknown Rx Hour] Cyclobenzaprine HCl [Flexeril 5 MG 5 mg PO QHS PRN #20 tab 11/21/19 Unknown Rx TAB] HYDROcodone/APAP 5-325 [[place] 1 each PO Q6HR PRN #18 tablet 12/13/19 Unknown Rx 5/325] amLODIPine 10 mg PO DAILY 90 Days #90 tab 12/18/19 Unknown Rx carvediloL [Coreg] 12.5 mg PO BID 90 Days #180 tablet 12/18/19 Unknown Rx ED Physical Exam - General Limitations: No Limitations General appearance: alert, in no apparent distress - Head Head exam: Present: atraumatic, normocephalic - Eye Eye exam: Present: normal appearance - ENT ENT exam: Present: mucous membranes moist - Neck Neck exam: Present: normal inspection, full ROM - Respiratory Respiratory exam: Present: normal lung sounds bilaterally. Absent: respiratory distress, wheezes, rales, rhonchi - Cardiovascular Cardiovascular Exam: Present: regular rate, normal rhythm, normal heart sounds. Absent: rubs, gallop - GI/Abdominal GI/Abdominal exam: Present: soft, normal bowel sounds. Absent: distended, tenderness, guarding, rebound - Extremities Exam Extremities exam: Present: pedal edema - Neurological Exam Neurological exam: Present: alert, oriented X3 - Psychiatric Psychiatric exam: Present: normal affect, normal mood - Skin Skin exam: Present: warm, dry, intact, normal color. Absent: rash ED Course Vital Signs 12/18/19 12/18/19 12/18/19 12:29 12:42 12:58 Temperature 97.7 F Pulse Rate 87 Respiratory 24 11 L 12 Rate Blood Pressure 239/110 Blood Pressure 239/119 [Right] O2 Sat by Pulse 57 L 96 99 Oximetry 12/18/19 12/18/19 12/18/19 13:00 13:01 13:16 Temperature Pulse Rate 73 87 77 Respiratory 8 L 15 Rate Blood Pressure 239/119 Blood Pressure [Right] O2 Sat by Pulse 99 97 Oximetry 12/18/19 12/18/19 12/18/19 13:30 13:46 14:20 Temperature Pulse Rate 71 Respiratory Rate Blood Pressure 217/99 Blood Pressure [Right] O2 Sat by Pulse 100 98 Oximetry ED Medical Decision Making - Lab Data Result diagrams: 12/18/19 12:54 12/18/19 12:54 - Radiology Data Radiology results: report reviewed No significant pulmonary edema seen on chest radiograph according to radiology impression - Medical Decision Making Mrs. Ramsey presents with hypertensive urgency at dialysis clinic. 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 Repeat blood pressure systolic 151/101 after 2 doses of IV labetalol. She is not experiencing any acute respiratory distress at this time. Repeat pulse ox 96% on room air. I have provided 90-day prescription of her home medications which include Coreg and amlodipine. Dr. Carroll recommended that patient comes to her next dialysis session on . Critical care attestation.: If time is entered above; I have spent that time in minutes in the direct care of this critically ill patient, excluding procedure time. ED Disposition Clinical Impression: Hypertensive urgency, End stage renal disease on dialysis Disposition: - TO HOME OR SELFCARE Is pt being admited?: No Does the pt Need Aspirin: No Condition: Stable Additional Instructions: Please obtain your next dialysis session on . Prescriptions: amLODIPine 10 mg PO DAILY 90 Days #90 tab carvediloL [Coreg] 12.5 mg PO BID 90 Days #180 tablet Referrals: SYLVIA LANDIN MD [Staff Physician] - 3-5 Days
[2019-12-18 13:15] LABS: Basophils # (Auto) 0.1 K/mm3 (0.0-0.1); Basophils % (Auto) 1.1 % (0.0-1.8); Eosinophils # (Auto) 0.1 K/mm3 (0.0-0.4); Eosinophils % (Auto) 1.7 % (0.0-4.3); Hematocrit 34.5 % (30.3-42.9); Hemoglobin 11.5 gm/dl (10.1-14.3); Lymphocytes # (Auto) 0.8 K/mm3 (1.2-5.4); Lymphocytes % (Auto) 14.1 % (13.4-35.0); Mean Corpuscular HGB Conc 33 % (30-34); Mean Corpuscular Volume 92 fl (79-97); Monocytes # (Auto) 0.5 K/mm3 (0.0-0.8); Monocytes % (Auto) 9.6 % (0.0-7.3); Platelet Count 256 K/mm3 (140-440); Red Blood Count 3.75 M/mm3 (3.65-5.03); Red Cell Distribution Width 17.9 % (13.2-15.2)
[2019-12-18 13:25] LABS: Calcium 9.2 mg/dL (8.4-10.2)
--- NOTE | 2019-12-18 13:58 | XRay Report ---
CHEST 1 VIEW 12/18/2019 12:38 PM INDICATION / CLINICAL INFORMATION: Dyspnea. COMPARISON: One view of the chest from 12/14/2019. FINDINGS: SUPPORT DEVICES: Stable left internal jugular vein Port-A-Cath. HEART / MEDIASTINUM: Stable. LUNGS / PLEURA: Bilateral pulmonary opacities have improved. There are small pleural effusions. No pn eumothorax. ADDITIONAL FINDINGS: No significant additional findings. IMPRESSION: 1. Improved aeration of the lungs with residual probable atelectasis/edema. 2. Small pleural effusions. Signer Name: Aditya Jackson MD Signed: 12/18/2019 1:53 PM Workstation Name: [id number]
[2019-12-18] MEDS ORDERED: diphenhydrAMINE 50 MG/ML VIAL IV ONE (14:07)
[2019-12-18 15:31] VITALS: BP 181/101
== END 2019-12-18 16:23 | disposition home or self-care (01) ==
LOC: ED 12:24
DX: I13.2 Hypertensive heart and chronic kidney disease with heart failure and with stage 5 chronic kidney disease, or end stage renal disease (principal); I50.9 Heart failure, unspecified; E11.22 Type 2 diabetes mellitus with diabetic chronic kidney disease; N18.6 End stage renal disease; I16.0 Hypertensive urgency; J44.9 Chronic obstructive pulmonary disease, unspecified; I25.10 Atherosclerotic heart disease of native coronary artery without angina pectoris; Z95.1 Presence of aortocoronary bypass graft; Z79.899 Other long term (current) drug therapy; Z91.041 Radiographic dye allergy status; Z91.013 Allergy to seafood; Z88.8 Allergy status to other drugs, medicaments and biological substances; Z99.2 Dependence on renal dialysis; Z85.3 Personal history of malignant neoplasm of breast; Z90.710 Acquired absence of both cervix and uterus; Z98.890 Other specified postprocedural states
CPT/HCPCS: 36415; 71045; 80048; 85025; 96374; 96375; 96376; 99284; J1200

== ENCOUNTER 2019-12-24 15:29 | Emergency (ER) | payer MEDICARE, OTHER | END 2019-12-24 16:28 | disposition left against medical advice (07) | LOC: ED 15:29 | DX: M79.89 Other specified soft tissue disorders (principal); Z53.21 Procedure and treatment not carried out due to patient leaving prior to being seen by health care provider ==

== ENCOUNTER 2019-12-28 23:21 | Emergency (ER) | payer MEDICARE, OTHER ==
[2019-12-29 02:00] LABS: Basophils # (Auto) 0.1 K/mm3 (0.0-0.1); Eosinophils # (Auto) 0.1 K/mm3 (0.0-0.4); Eosinophils % (Auto) 2.1 % (0.0-4.3); Hematocrit 33.2 % (30.3-42.9); Hemoglobin 10.6 gm/dl (10.1-14.3); Lymphocytes % (Auto) 16.3 % (13.4-35.0); Mean Corpuscular HGB Conc 32 % (30-34); Mean Corpuscular Volume 95 fl (79-97); Monocytes # (Auto) 0.8 K/mm3 (0.0-0.8); Monocytes % (Auto) 13.3 % (0.0-7.3); Platelet Count 292 K/mm3 (140-440); Red Cell Distribution Width 18.7 % (13.2-15.2)
[2019-12-29 02:11] LABS: Calcium 8.8 mg/dL (8.4-10.2)
[2019-12-29 02:58] LABS: Chol/HDL Ratio 2.04 %
--- NOTE | 2019-12-29 03:08 | XRay Report ---
CHEST 1 VIEW INDICATION: Chest Pain COMPARISON: 12/19/2019 FINDINGS: Support devices: Left Port-A-Cath unchanged Heart: Mildly enlarged but unchanged Lungs/Pleura: There appears to be some degree of chronic interstitial fibrosis and scarring, especial ly in the right lower lung. However, I suspect some degree of acute superimposed disease in the right base. IMPRESSION: 1. Chronic lung disease with probable acute disease in the right base. Signer Name: Eric Castaneda MD Signed: 12/29/2019 3:04 AM Workstation Name: [id number]
[2019-12-29] MEDS ORDERED: HYDROcodone/ACETAMINOPHEN 5-325 MG TAB PO ONE (04:42)
[2019-12-29] MEDS ORDERED: ENOXAPARIN 100 MG/1 ML INJ SUB-Q SCH (05:00)
--- NOTE | 2019-12-29 05:53 | Emergency Department Report ---
ED General Adult HPI - General Chief complaint: Extremity Injury, Lower Stated complaint: BILATERAL LEG PAIN/SWELLING Time Seen by Provider: 12/29/19 04:53 Source: patient Mode of arrival: Ambulatory Limitations: No Limitations - History of Present Illness Initial comments: 64-year-old female with a history of end-stage renal disease, congestive heart failure and coronary artery disease status post CABG and 2011 presents with complaint of lower extremity pain. Patient states she is had lower extremity pain and swelling for the past 2 weeks. Patient was previously evaluated emergency department for lower extremity swelling and had a Doppler that was negative in November 2019. Patient denies any recent falls. Patient denies any chest pain or shortness of breath at current time. Patient denies any recent travel and denies knowing anyone who was recently quarantined. - Related Data Home Medications Medication Instructions Recorded Confirmed Last Taken Atorvastatin [Lipitor] 40 mg PO DAILY 11/06/19 12/19/19 11/05/19 Gabapentin 100 mg PO DAILY 12/19/19 12/19/19 Unknown Ibuprofen 800 mg PO TID 12/19/19 12/19/19 Unknown Magnesium Oxide [Mag-Ox] 400 mg PO QDAY 12/19/19 12/19/19 Unknown diphenhydrAMINE [Benadryl CAP] 25 mg PO Q8HR PRN 12/19/19 12/19/19 Unknown Previous Rx's Medication Instructions Recorded Last Taken Type Acetaminophen [Acetaminophen 8 650 mg PO Q8H PRN #30 tablet.er 11/21/19 Unknown Rx Hour] Cyclobenzaprine HCl [Flexeril 5 MG 5 mg PO QHS PRN #20 tab 11/21/19 Unknown Rx TAB] HYDROcodone/APAP 5-325 [Rison 1 each PO Q6HR PRN #18 tablet 12/13/19 Unknown Rx 5-325 mg TAB] amLODIPine 10 mg PO DAILY 90 Days #90 tab 12/18/19 Unknown Rx labetaloL [Labetalol 100mg TAB] 100 mg PO Q8H #90 tablet 12/21/19 Unknown Rx traMADoL [Ultram] 50 mg PO Q6HR PRN #20 tablet 12/29/19 Unknown Rx Allergies Allergy/AdvReac Type Severity Reaction Status Date / Time cheese Allergy Mild Itching Verified 12/20/19 10:19 iodine Allergy Mild Anaphylaxis Verified 12/20/19 10:16 clonidine Allergy Anaphylaxis Verified 12/19/19 04:13 shellfish derived AdvReac Angioedema Verified 12/19/19 04:13 ED Review of Systems ROS: Stated complaint: BILATERAL LEG PAIN/SWELLING Other details as noted in HPI Constitutional: denies: chills, fever Eyes: denies: eye pain, eye discharge, vision change ENT: denies: ear pain, throat pain Respiratory: denies: cough, shortness of breath, wheezing Cardiovascular: denies: chest pain, palpitations Endocrine: no symptoms reported Gastrointestinal: denies: abdominal pain, nausea, diarrhea Genitourinary: denies: urgency, dysuria, discharge Musculoskeletal: arthralgia Skin: denies: rash, lesions Neurological: denies: headache, weakness, paresthesias Psychiatric: denies: anxiety, depression Hematological/Lymphatic: denies: easy bleeding, easy bruising ED Past Medical Hx - Past Medical History Previous Medical History?: Yes Hx Hypertension: Yes Hx Congestive Heart Failure: Yes Hx Diabetes: Yes Hx Renal Disease: Yes (, , Sat) Hx COPD: Yes Additional medical history: Breast CA 2017 - Surgical History Past Surgical History?: Yes Hx Open Heart Surgery: Yes (Quadruple Bypass) Additional Surgical History: Hysterectomy - Social History Smoking Status: Former Smoker Substance Use Type: None - Medications Home Medications: Home Medications Medication Instructions Recorded Confirmed Last Taken Type Atorvastatin [Lipitor] 40 mg PO DAILY 11/06/19 12/19/19 11/05/19 History Acetaminophen [Acetaminophen 8 650 mg PO Q8H PRN #30 tablet.er 11/21/19 12/19/19 Unknown Rx Hour] Cyclobenzaprine HCl [Flexeril 5 MG 5 mg PO QHS PRN #20 tab 11/21/19 12/19/19 Unknown Rx TAB] HYDROcodone/APAP 5-325 [Rison 1 each PO Q6HR PRN #18 tablet 12/13/19 12/19/19 Unknown Rx 5-325 mg TAB] amLODIPine 10 mg PO DAILY 90 Days #90 tab 12/18/19 12/19/19 Unknown Rx Gabapentin 100 mg PO DAILY 12/19/19 12/19/19 Unknown History Ibuprofen 800 mg PO TID 12/19/19 12/19/19 Unknown History Magnesium Oxide [Mag-Ox] 400 mg PO QDAY 12/19/19 12/19/19 Unknown History diphenhydrAMINE [Benadryl CAP] 25 mg PO Q8HR PRN 12/19/19 12/19/19 Unknown History labetaloL [Labetalol 100mg TAB] 100 mg PO Q8H #90 tablet 12/21/19 Unknown Rx traMADoL [Ultram] 50 mg PO Q6HR PRN #20 tablet 12/29/19 Unknown Rx ED Physical Exam - General Limitations: No Limitations General appearance: alert, in no apparent distress - Head Head exam: Present: atraumatic, normocephalic - Eye Eye exam: Present: normal appearance - ENT ENT exam: Present: mucous membranes moist - Neck Neck exam: Present: normal inspection - Respiratory Respiratory exam: Present: normal lung sounds bilaterally. Absent: respiratory distress - Cardiovascular Cardiovascular Exam: Present: regular rate, normal rhythm. Absent: systolic murmur, diastolic murmur, rubs, gallop - GI/Abdominal GI/Abdominal exam: Present: soft, normal bowel sounds - Extremities Exam Extremities exam: Present: normal inspection, other (2+ edema noted in bilateral lower extremities with no evidence of erythema). Absent: calf tenderness - Back Exam Back exam: Present: normal inspection - Neurological Exam Neurological exam: Present: alert, oriented X3 - Psychiatric Psychiatric exam: Present: normal affect, normal mood - Skin Skin exam: Present: warm, dry, intact, normal color. Absent: rash ED Course Vital Signs 12/28/19 12/29/19 12/29/19 23:27 03:30 03:45 Temperature 99.5 F Pulse Rate 82 82 Respiratory 18 12 14 Rate Blood Pressure 197/76 195/94 208/89 O2 Sat by Pulse 96 100 97 Oximetry ED Medical Decision Making - Lab Data Result diagrams: 12/29/19 01:44 12/29/19 01:44 - EKG Data EKG shows normal: sinus rhythm Rate: normal - EKG Data When compared to previous EKG there are: no significant change Interpretation: no acute changes - Medical Decision Making Patient unable to obtain lower extremity ultrasound while in the emergency department. Patient given outpatient prescription for lower extremity Doppler. Patient prophylactically treated with Lovenox therapy while here in emergency department. Patient denies any chest pain or shortness of breath. Troponin was ordered in triage and was noted to be elevated. Patient was recently evaluated by cardiology on December 21, 2019 and was scheduled for a outpatient thallium on January 03. Patient case discussed with lofter sponge packer covering for [facility]. Patient told that she can follow-up as an outpatient and continue her same appointment. The troponin was thought to be elevated secondary to patient's history of renal disease which was the thought when the patient was evaluated by cardiology on December 20 as well. - Differential Diagnosis Dehydration; electrolyte abnormality; anemia; Critical care attestation.: If time is entered above; I have spent that time in minutes in the direct care of this critically ill patient, excluding procedure time. ED Disposition Clinical Impression: Lower extremity pain, bilateral Disposition: DC-01 TO HOME OR SELFCARE Is pt being admited?: No Does the pt Need Aspirin: No Condition: Stable Instructions: Arthralgia (ED) Prescriptions: traMADoL [Ultram] 50 mg PO Q6HR PRN #20 tablet PRN Reason: Pain Referrals: KINZA PENNINGTON MD [Primary Care Provider] - 3-5 Days Time of Disposition: 05:55 Print Language: SERBIAN
[2019-12-29 06:13] VITALS: BP 183/75
== END 2019-12-29 06:48 | disposition home or self-care (01) ==
LOC: ED 23:21
DX: M79.662 Pain in left lower leg (principal); M79.661 Pain in right lower leg; R22.43 Localized swelling, mass and lump, lower limb, bilateral; E11.22 Type 2 diabetes mellitus with diabetic chronic kidney disease; I12.0 Hypertensive chronic kidney disease with stage 5 chronic kidney disease or end stage renal disease; N18.6 End stage renal disease; I50.9 Heart failure, unspecified; J44.9 Chronic obstructive pulmonary disease, unspecified; Z85.3 Personal history of malignant neoplasm of breast; Z87.891 Personal history of nicotine dependence; Z98.890 Other specified postprocedural states; Z90.710 Acquired absence of both cervix and uterus; Z79.1 Long term (current) use of non-steroidal anti-inflammatories (NSAID); Z79.899 Other long term (current) drug therapy; Z91.013 Allergy to seafood; Z91.018 Allergy to other foods; Z88.8 Allergy status to other drugs, medicaments and biological substances
CPT/HCPCS: 36415; 71045; 80048; 80061; 84484; 85025; 93005; 93010; 96372; 99284; J1650

== ENCOUNTER 2019-12-31 11:29 | Outpatient (CLI) | payer MEDICARE, OTHER ==
--- NOTE | 2019-12-31 13:43 | Vascular Lab Report ---
DUPLEX DOPPLER LOWER EXTREMITY VEINS, BILATERAL INDICATION: BILATERAL LOWER EXTREMITY PAIN AND SWELLING. TECHNIQUE: Duplex doppler imaging was performed through the veins of both lower extremities using venous donna ye and other maneuvers. COMPARISON: No relevant prior imaging study available. FINDINGS: Right Common femoral vein: Negative. Right Superficial femoral vein: Negative. Right Popliteal vein: Negative. Right Calf veins: Negative. Left Common femoral vein: Negative. Left Superficial femoral vein: Negative. Left Popliteal vein: Negative. Left Calf veins: Negative. Additional findings: None.. IMPRESSION: 1. No sonographic evidence for DVT in either lower extremity. Signer Name: Dash Whitt MD Signed: 12/31/2019 1:38 PM Workstation Name: [id number]
== END 2019-12-31 11:30 | disposition home or self-care (01) ==
LOC: VAS 11:29
PROVIDERS: ATTEND Emergency Medicine
DX: M79.662 Pain in left lower leg (principal); M79.661 Pain in right lower leg; M79.89 Other specified soft tissue disorders
CPT/HCPCS: 93970

== ENCOUNTER 2020-01-02 22:44 | Observation (INO) | payer MEDICARE, OTHER ==
--- NOTE | 2020-01-03 00:04 | XRay Report ---
CHEST 2 VIEWS INDICATION: SOB. COMPARISON: 12/29/2019 FINDINGS: Support devices: [id number] catheters tip in the superior vena cava. Heart: Within normal limits. Lungs: No acute air space or interstitial disease. Pleura: No interval change in diffuse pulmonary process characterized by marked increased bronchovasc ular markings. No pneumothorax. Additional findings: None. IMPRESSION: 1. No interval change as compared to Signer Name: Severino Villanueva MD Signed: 01/02/2020 11:59 PM Workstation Name: [id number]
[2020-01-03 00:54] LABS: Hematocrit 33.2 % (30.3-42.9); Hemoglobin 10.8 gm/dl (10.1-14.3); Mean Corpuscular HGB Conc 33 % (30-34); Mean Corpuscular Volume 94 fl (79-97); Platelet Count 260 K/mm3 (140-440); Red Blood Count 3.54 M/mm3 (3.65-5.03); Red Cell Distribution Width 17.7 % (13.2-15.2)
[2020-01-03 01:11] LABS: BUN/Creatinine Ratio 9; Blood Urea Nitrogen 98 mg/dL (7-17); Hemolysis Index 9
[2020-01-03] MEDS ORDERED: MORPHINE 4 MG/1 ML INJ IM ONE (02:26)
[2020-01-03] MEDS ORDERED: hydrALAZINE 20 MG/1 ML INJ IV ONE (03:20)
--- NOTE | 2020-01-03 03:30 | Emergency Department Report ---
HPI - General Chief Complaint: Extremity Problem,Nontraumatic Time Seen by Provider: 01/03/20 02:17 - HPI HPI: 64-year-old -[place] female presents to the emergency department with a complaint of bilateral lower extremity swelling and pain that is been going on for about the past month. The patient has been seen here multiple times for the same symptoms. The patient was admitted here on 12/18 for about 2 days with the lower extremity swelling, but also some shortness of breath, volume overload and chest discomfort. She was seen by cardiology at that time and has been set up for an outpatient stress test. The patient was also seen in the emergency department here 3 days ago for the lower extremity swelling and pain and had an outpatient lower extremity venous Doppler ultrasound that was negative for any DVT. The patient went to see her primary care physician today, Alize Ramirez. Patient says that she is set up to see a doctor tomorrow, , regarding "a blockage in my legs." She has a past medical history of CHF, COPD, diabetes, hypertension, coronary artery disease with previous bypass surgery, and the patient is end-stage renal disease on hemodialysis on Tuesday//Tuesday. She has not missed any recent dialysis sessions. Her cdl service technician is Dr. Freeman. ED Past Medical Hx - Past Medical History Previous Medical History?: Yes Hx Hypertension: Yes Hx Congestive Heart Failure: Yes Hx Diabetes: Yes Hx Renal Disease: Yes (, , Tue) Hx COPD: Yes Additional medical history: Breast CA 2017 - Surgical History Past Surgical History?: Yes Hx Open Heart Surgery: Yes (Quadruple Bypass) Additional Surgical History: Hysterectomy - Social History Smoking Status: Never Smoker Substance Use Type: None - Medications Home Medications: Home Medications Medication Instructions Recorded Confirmed Last Taken Type Atorvastatin [Lipitor] 40 mg PO DAILY 11/06/19 12/19/19 11/05/19 History Acetaminophen [Acetaminophen 8 650 mg PO Q8H PRN #30 tablet.er 11/21/19 12/19/19 Unknown Rx Hour] Cyclobenzaprine HCl [Flexeril 5 MG 5 mg PO QHS PRN #20 tab 11/21/19 12/19/19 Unknown Rx TAB] HYDROcodone/APAP 5-325 [Goodrich 1 each PO Q6HR PRN #18 tablet 12/13/19 12/19/19 Unknown Rx 5-325 mg TAB] amLODIPine 10 mg PO DAILY 90 Days #90 tab 12/18/19 12/19/19 Unknown Rx Gabapentin 100 mg PO DAILY 12/19/19 12/19/19 Unknown History Ibuprofen 800 mg PO TID 12/19/19 12/19/19 Unknown History Magnesium Oxide [Mag-Ox] 400 mg PO QDAY 12/19/19 12/19/19 Unknown History diphenhydrAMINE [Benadryl CAP] 25 mg PO Q8HR PRN 12/19/19 12/19/19 Unknown History labetaloL [Labetalol 100mg TAB] 100 mg PO Q8H #90 tablet 12/21/19 Unknown Rx traMADoL [Ultram] 50 mg PO Q6HR PRN #20 tablet 12/29/19 Unknown Rx ED Review of Systems ROS: Stated complaint: LEGS AND FEET SWELLING Other details as noted in HPI Comment: All other systems reviewed and negative Constitutional: denies: chills, fever Eyes: denies: eye pain, vision change ENT: denies: ear pain, throat pain Respiratory: denies: cough, shortness of breath Cardiovascular: edema. denies: chest pain Gastrointestinal: denies: abdominal pain, vomiting Genitourinary: denies: dysuria, discharge Musculoskeletal: myalgia. denies: back pain Skin: denies: rash, lesions Neurological: denies: headache, weakness Physical Exam - Physical Exam Vital Signs: Vital Signs 01/02/20 22:58 Temperature 98.5 F Pulse Rate 74 Respiratory 18 Rate Blood Pressure 211/101 O2 Sat by Pulse 98 Oximetry Physical Exam: GENERAL: The patient is well-developed well-nourished. HENT: Normocephalic. Atraumatic. Patient has moist mucous membranes. EYES: Extraocular motions are intact. NECK: Supple. Trachea is midline. CHEST/LUNGS: Clear to auscultation. There is no respiratory distress noted. HEART/CARDIOVASCULAR: Regular. There is no tachycardia. ABDOMEN: Abdomen is soft, nontender. Patient has normal bowel sounds. There is no abdominal distention. SKIN: 2-3+ pitting edema from the mid thigh distally. NEURO: The patient is awake, alert, and oriented. The patient is cooperative. The patient has no focal neurologic deficits. Normal speech. MUSCULOSKELETAL: Tenderness to palpation along the bilateral lower extremities. There is no limitation range of motion. ED Course Vital Signs 01/02/20 22:58 Temperature 98.5 F Pulse Rate 74 Respiratory 18 Rate Blood Pressure 211/101 O2 Sat by Pulse 98 Oximetry ED Medical Decision Making - Lab Data Result diagrams: 01/02/20 23:55 01/02/20 23:55 - Radiology Data Radiology results: image reviewed interpreted by me: Chest x-ray does not show any acute process. There are no pleural effusions, obvious pneumonia and there is no pneumothorax. - Medical Decision Making This patient presents to the emergency department with a complaint of bilateral lower extremity swelling and discomfort. This appears to be more of a chronic issue but has worsened over the past few days. The patient was recently here and had an outpatient bilateral lower extremity venous Doppler ultrasound that was negative for any DVT. However the patient says that she is currently being evaluated for a "blockage" in 1 of her legs and is supposed to have some procedure coming up. However neither the patient, nor her , know what type of specialist they have seen or the name of this physician. The patient presents with extremely elevated blood pressure. She was given a dose of IV hydralazine which did drop the blood pressure down to a more reasonable level. I spoke to the patient's cdl service technician, Dr. Carroll, who agreed for the patient to get some Lasix to try and start diuresis of the lower extremity swelling that is causing her so much discomfort and difficulty. She was placed on a pure wick. However despite the blood pressure control, diuresis, and IV analgesia, the patient still complains of the leg pain and still appears to have moderate to significant swelling up through her thighs. For all these reasons the patient will be admitted to the hospital for further evaluation and treatment and was accepted for admission by the hospitalist, Dr. Wagner. - Differential Diagnosis DVT, cellulitis, venous stasis, hypervolemia Critical Care Time: No Critical care attestation.: If time is entered above; I have spent that time in minutes in the direct care of this critically ill patient, excluding procedure time. ED Disposition Clinical Impression: Lower extremity pain, bilateral, Bilateral lower extremity edema, Difficulty walking, ESRD needing dialysis, Hypertensive urgency Volume overload Qualifiers: Hypervolemia type: unspecified Qualified Code(s): E87.70 - Fluid overload, unspecified Disposition: 09 OP ADMIT IP TO THIS HOSP Is pt being admited?: Yes Condition: Fair Referrals: ALIZE RAMIREZ MD [Primary Care Provider] - 3-5 Days Time of Disposition: 06:16
[2020-01-03] MEDS ORDERED: ONDANSETRON 4 MG/2 ML INJ IV ONE (04:27)
[2020-01-03] MEDS ORDERED: ONDANSETRON 4 MG/2 ML INJ ONE (04:29)
[2020-01-03] MEDS ORDERED: FUROSEMIDE 40 MG/4 ML INJ IV ONE (04:48)
[2020-01-03] MEDS ORDERED: HYDROcodone/ACETAMINOPHEN 5-325 MG TAB PO PRN (07:15)
[2020-01-03] MEDS ORDERED: ACETAMINOPHEN 650 MG PO PRN (07:15)
[2020-01-03] MEDS ORDERED: NON-FORMULARY EACH (Cyclobenzaprine Hcl [Flexeril 5 Mg Tab] 5 MG) PO PRN (07:15)
--- NOTE | 2020-01-03 07:15 | History and Physical Report ---
History of Present Illness Date of examination: 01/03/20 Date of admission: January 03, 2020 Chief complaint: Lower extremity swelling and hypertensive urgency History of present illness: Patient is a 64-year-old female with past medical history of end-stage renal disease, diet-controlled diabetes mellitus, hypertension, CAD with previous bypass surgery. Hypertension, who presents to the hospital with complaints of bilateral lower extremity swelling and was noted to have a blood pressure systolic of 220/69 on admission. Based on ED documentation and review of re cords patient has been seen here in the hospital for the same symptoms multiple times in the prior admission she has had shortness of breath and chest discomfort with underlying volume overload. Was seen by cardiology prior set up for outpatient stress test. Patient was also seen here 3 days ago and also had a lower extremity Doppler which was negative for DVT. According to the patient she has been noted to have some blockage in her veins questionable varicose veins for which she is supposed to see her doctor. She claims she has not missed any recent dialysis sessions. Past History Past Medical History: CAD, COPD, diabetes, hypertension, hyperlipidemia, other Past Surgical History: No surgical history Social history: no significant social history, full code Family history: no significant family history Medications and Allergies Allergies Allergy/AdvReac Type Severity Reaction Status Date / Time cheese Allergy Mild Itching Verified 12/20/19 10:19 iodine Allergy Mild Anaphylaxis Verified 12/20/19 10:16 clonidine Allergy Anaphylaxis Verified 12/19/19 04:13 shellfish derived AdvReac Angioedema Verified 12/19/19 04:13 Home Medications Medication Instructions Recorded Confirmed Last Taken Type Atorvastatin [Lipitor] 40 mg PO DAILY 11/06/19 01/04/20 01/02/20 10:00 History Acetaminophen [Acetaminophen 8 650 mg PO Q8H PRN #30 tablet.er 11/21/19 01/04/20 01/03/20 22:00 Rx Hour] Cyclobenzaprine HCl [Flexeril 5 MG 5 mg PO QHS PRN #20 tab 11/21/19 01/04/20 01/01/20 22:00 Rx TAB] HYDROcodone/APAP 5-325 [[place] 1 each PO Q6HR PRN #18 tablet 12/13/19 01/04/20 01/01/20 22:00 Rx 5-325 mg TAB] amLODIPine 10 mg PO DAILY 90 Days #90 tab 12/18/19 01/04/20 01/01/20 10:00 Rx Gabapentin 100 mg PO DAILY 12/19/19 01/04/20 01/01/20 10:00 History Ibuprofen 800 mg PO TID 12/19/19 01/04/20 01/02/20 22:00 History Magnesium Oxide [Mag-Ox] 400 mg PO QDAY 12/19/19 01/04/20 01/03/20 10:00 History diphenhydrAMINE [Benadryl CAP] 25 mg PO Q8HR PRN 12/19/19 01/04/20 01/03/20 21:00 History labetaloL [Labetalol 100mg TAB] 100 mg PO Q8H #90 tablet 12/21/19 01/04/20 01/02/20 10:00 Rx traMADoL [Ultram] 50 mg PO Q6HR PRN #20 tablet 12/29/19 01/04/20 12/31/19 10:00 Rx Review of Systems All systems: negative Constitutional: weight gain, fatigue, weakness, no fever, no chills, no sweats, no night sweats, no malaise, no lethargy Cardiovascular: no chest pain, no orthopnea, no palpitations, no rapid/irregular heart beat, no edema, no lightheadedness, no shortness of breath, no dyspnea on exertion, no paroxysmal nocturnal dyspnea, no claudication, no high blood pressure Respiratory: no cough, no cough with sputum, no excessive sputum, no hemoptysis, no shortness of breath, no dyspnea on exertion, no wheezing, no pleurisy, no pain on inspiration Gastrointestinal: no abdominal pain, no nausea, no vomiting, no constipation, no hematemesis, no melena, no loss of appetite, no early satiety, no jaundice Musculoskeletal: no neck pain, no shooting arm pain, no low back pain, no shooting leg pain, no leg numbness/tingling, no muscle weakness, no muscle cramps, no myalgias, no fractures Integumentary: no rash, no pruritis, no wounds, no jaundice, no lesions, no depigmentation, no dryness, no color changes, no striae, no hirsutism, no onychomycosis Neurological: no transient paralysis, no weakness, no tingling, no seizures, no syncope, no change in speech, no change in mentation, no confusion, no loss of vision, no hearing difficulties Psychiatric: no sleep disturbances, no hypersomnia, no change in appetite, no change in libido, no disorientation Endocrine: no heat intolerance, no excessive thirst, no increase in ring/shoe/hat size, no deepening of the voice, no palpatations, no low blood sugars, no recent glucocorticoid use Hematologic/Lymphatic: no easy bruising Allergic/Immunologic: no allergic rhinitis Exam - Physical Exam Narrative exam: GENERAL: The patient is well-developed well-nourished. HENT: Normocephalic. Atraumatic. Patient has moist mucous membranes. EYES: Extraocular motions are intact. NECK: Supple. Trachea is midline. CHEST/LUNGS: Clear to auscultation. There is no respiratory distress noted. HEART/CARDIOVASCULAR: Regular. There is no tachycardia. ABDOMEN: Abdomen is soft, nontender. Patient has normal bowel sounds. There is no abdominal distention. SKIN: 2-3+ pitting edema from the mid thigh distally. NEURO: The patient is awake, alert, and oriented. The patient is cooperative. The patient has no focal neurologic deficits. Normal speech. MUSCULOSKELETAL: Tenderness to palpation along the bilateral lower extremities. There is no limitation range of motion. - Constitutional Vitals: Temp Pulse Resp BP Pulse Ox 98.5 F 74 18 170/50 100 01/02/20 22:58 01/03/20 03:45 01/02/20 22:58 01/03/20 07:01 01/03/20 07:01 General appearance: Present: no acute distress, well-nourished Results - Labs CBC & Chem 7: 01/02/20 23:55 01/02/20 23:55 Labs: Laboratory Last Values WBC 5.3 K/mm3 (4.5-11.0) 01/02/20 23:55 RBC 3.54 M/mm3 (3.65-5.03) L 01/02/20 23:55 Hgb 10.8 gm/dl (10.1-14.3) 01/02/20 23:55 Hct 33.2 % (30.3-42.9) 01/02/20 23:55 MCV 94 fl (79-97) 01/02/20 23:55 MCH 30 pg (28-32) 01/02/20 23:55 MCHC 33 % (30-34) 01/02/20 23:55 RDW 17.7 % (13.2-15.2) H 01/02/20 23:55 Plt Count 260 K/mm3 (140-440) 01/02/20 23:55 Lymph % (Auto) Coordinator Of Placement 01/02/20 23:55 [place] % (Auto) Coordinator Of Placement 01/02/20 23:55 Eos % (Auto) Coordinator Of Placement 01/02/20 23:55 Baso % (Auto) Coordinator Of Placement 01/02/20 23:55 Lymph # Coordinator Of Placement 01/02/20 23:55 [place] # Coordinator Of Placement 01/02/20 23:55 Eos # Coordinator Of Placement 01/02/20 23:55 Baso # Coordinator Of Placement 01/02/20 23:55 Seg Neutrophils % Coordinator Of Placement 01/02/20 23:55 Seg Neutrophils # Coordinator Of Placement 01/02/20 23:55 Sodium 130 mmol/L (137-145) L 01/02/20 23:55 Potassium 5.1 mmol/L (3.6-5.0) H 01/02/20 23:55 Chloride 87.4 mmol/L (98-107) L 01/02/20 23:55 Carbon Dioxide 21 mmol/L (22-30) L 01/02/20 23:55 Anion Gap 27 mmol/L 01/02/20 23:55 BUN 98 mg/dL (7-17) H 01/02/20 23:55 Creatinine 10.4 mg/dL (0.7-1.2) H D 01/02/20 23:55 Estimated GFR 5 ml/min 01/02/20 23:55 BUN/Creatinine Ratio 9 % 01/02/20 23:55 Glucose 111 mg/dL (65-100) H 01/02/20 23:55 Calcium 9.0 mg/dL (8.4-10.2) 01/02/20 23:55 NT-Pro-B Natriuret Pep > 30298 pg/mL (0-900) H 01/02/20 23:55 Pleitez/IV: IV Catheter Type [Right INT / Saline Lock Antecubital] Assessment and Plan Assessment and plan: Patient is a 64-year-old female with past medical history of end-stage renal disease, diet-controlled diabetes mellitus, hypertension, CAD with previous bypass surgery. Hypertension, who presents to the hospital with complaints of bilateral lower extremity swelling and was noted to have a blood pressure systolic of 220/69 on admission. Based on ED documentation and review of record s patient has been seen here in the hospital for the same symptoms multiple times in the prior admission she has had shortness of breath and chest discomfort with underlying volume overload. Was seen by cardiology prior set up for outpatient stress test. Patient was also seen here 3 days ago and also had a lower extremity Doppler which was negative for DVT. According to the patient she has been noted to have some blockage in her veins questionable varicose veins for which she is supposed to see her doctor. She claims she has not missed any recent dialysis sessions. PCP: Alize Ramirez Special Education Director: Dr. Freeman Dialysis days Tuesday * While the patient had been seen in the hospital multiple times, reports more pain this time. she has not been using her gabpentin * The patient was recently here and had an outpatient bilateral lower extremity venous Doppler ultrasound that was negative for any DVT. However the patient says that she is currently being evaluated for a "blockage" in 1 of her legs and is supposed to have some procedure coming up * Patient per Nephrology will have dialysis today, I have also discussed with them and will change gabapentin to cymbalta, as gabapentin can lead to fluid retention. Hypertensive urgency End-stage renal disease on HD Lower extremity swelling Hyponatremia CAD status post CABG Hyperkalemia Elevated proBNP Anemia of chronic disease Type 2 NV HTN DM Type 2 with hyperglycemia PLAN Admit to Observation Pain control Nephrology and vascular consult Continue sliding scale Monitor sodium level Anticipate discharge in am if electrolytes are corrected DVT/GI PROPHY Advance Directives: Yes Plan of care discussed with patient/family: Yes
[2020-01-03] MEDS ORDERED: SODIUM CHLORIDE 0.9% 100 ML IV PRN (07:32)
[2020-01-03] MEDS ORDERED: DEXTROSE 50% IN WATER (25GM) 50 ML SYRINGE IV PRN (07:36)
[2020-01-03] MEDS ORDERED: ONDANSETRON 4 MG/2 ML INJ IV PRN (07:36)
[2020-01-03] MEDS ORDERED: NON-FORMULARY EACH (Ibuprofen 800 MG) PO SCH (08:00)
[2020-01-03] MEDS: diphenhydrAMINE 25 MG CAP PO PRN ×2 (08:25→16:06)
[2020-01-03] MEDS: amLODIPine 10 MG TAB PO SCH (08:47)
[2020-01-03] MEDS ORDERED: GABAPENTIN 100 MG CAP PO SCH (10:00)
[2020-01-03] MEDS ORDERED: ACETAMINOPHEN 325 MG TAB PO PRN (10:47)
--- NOTE | 2020-01-03 11:00 | Consultation ---
History of Present Illness - Reason for Consult Consult date: 01/03/20 Bilateral lower extremity swelling, right first toe pressure ulceration - History of Present Illness Patient with a history of end-stage renal disease on hemodialysis on Tuesday and Tuesday. She has over the past month noticed an increase in bilateral lower extremity swelling. An outside ultrasound demonstrates no acute DVT. Patient states that she has a blockage in the blood vessels in her left leg. She has a pressure wound at the distal aspect of the first toe on her left foot. An arterial duplex was performed which demonstrates high-grade stenosis to near occlusion of the right popliteal artery. Past History Past Medical History: dialysis, ESRD, PVD Past Surgical History: Other (Left arm AV fistula) Social history: no significant social history Family history: no significant family history Medications and Allergies Allergies Allergy/AdvReac Type Severity Reaction Status Date / Time cheese Allergy Mild Itching Verified 12/20/19 10:19 iodine Allergy Mild Anaphylaxis Verified 12/20/19 10:16 clonidine Allergy Anaphylaxis Verified 12/19/19 04:13 shellfish derived AdvReac Angioedema Verified 12/19/19 04:13 Home Medications Medication Instructions Recorded Confirmed Last Taken Type Atorvastatin [Lipitor] 40 mg PO DAILY 11/06/19 12/19/19 11/05/19 History Acetaminophen [Acetaminophen 8 650 mg PO Q8H PRN #30 tablet.er 11/21/19 12/19/19 Unknown Rx Hour] Cyclobenzaprine HCl [Flexeril 5 MG 5 mg PO QHS PRN #20 tab 11/21/19 12/19/19 Unknown Rx TAB] HYDROcodone/APAP 5-325 [[place] 1 each PO Q6HR PRN #18 tablet 12/13/19 12/19/19 Unknown Rx 5-325 mg TAB] amLODIPine 10 mg PO DAILY 90 Days #90 tab 12/18/19 12/19/19 Unknown Rx Gabapentin 100 mg PO DAILY 12/19/19 12/19/19 Unknown History Ibuprofen 800 mg PO TID 12/19/19 12/19/19 Unknown History Magnesium Oxide [Mag-Ox] 400 mg PO QDAY 12/19/19 12/19/19 Unknown History diphenhydrAMINE [Benadryl CAP] 25 mg PO Q8HR PRN 12/19/19 12/19/19 Unknown History labetaloL [Labetalol 100mg TAB] 100 mg PO Q8H #90 tablet 12/21/19 Unknown Rx traMADoL [Ultram] 50 mg PO Q6HR PRN #20 tablet 12/29/19 Unknown Rx Active Meds: Active Medications Acetaminophen (Tylenol) 650 mg PO Q8HR PRN PRN Reason: Pain, Moderate (4-6) Acetaminophen/Hydrocodone Bitart ([place] 5/325) 1 each PO Q6HR PRN PRN Reason: PAIN Amlodipine Besylate (Amlodipine) 10 mg PO DAILY [facility] Last Admin: 01/03/20 08:47 Dose: 10 mg Documented by: Atorvastatin Calcium (Lipitor) 40 mg PO DAILY [facility] Dextrose (D50w (25gm) Syringe) 50 ml IV Q30MIN PRN; Protocol PRN Reason: Hypoglycemia Diphenhydramine HCl (Benadryl) 25 mg PO Q8HR PRN PRN Reason: Itching Last Admin: 01/03/20 08:25 Dose: 25 mg Documented by: Gabapentin (Gabapentin) 100 mg PO DAILY [facility] Sodium Chloride (Nacl 0.9%) 100 mls @ 999 mls/hr IV SILVERIO PRN PRN Reason: Hypotension Ibuprofen (Ibuprofen) 800 mg PO TID [facility] Labetalol HCl (Labetalol) 100 mg PO Q8HR [facility] Last Admin: 01/03/20 08:47 Dose: 100 mg Documented by: Magnesium Oxide (Mag-Ox) 400 mg PO QDAY [facility] Miscellaneous Medication (Cyclobenzaprine Hcl [Flexeril 5 Mg Tab]) 5 mg PO QHS PRN PRN Reason: Muscle Spasm Ondansetron HCl (Zofran) 4 mg IV Q8HR PRN PRN Reason: Nausea And Vomiting Sodium Chloride (Sodium Chloride Flush Syringe 10 Ml) 10 ml IV BID [facility] Sodium Chloride (Sodium Chloride Flush Syringe 10 Ml) 10 ml IV PRN PRN PRN Reason: LINE FLUSH Tramadol HCl (Ultram) 50 mg PO Q6HR PRN PRN Reason: PAIN Valsartan (Diovan) 80 mg PO BID [facility] Review of Systems All systems: negative Exam - Constitutional Vitals: Temp Pulse Resp BP Pulse Ox 98.5 F 68 14 154/73 100 01/02/20 22:58 01/03/20 09:46 01/03/20 09:46 01/03/20 09:46 01/03/20 09:46 General appearance: Present: no acute distress - EENT Eyes: Present: EOM intact ENT: hearing intact - Neck Neck: Present: supple, normal ROM - Respiratory Respiratory effort: normal - Extremities Extremities: abnormal (Distal phalanx of left first toe with slow to heal pressure ulcer) Extremity abnormal: pulses diminished - Abdominal General gastrointestinal: Present: deferred - Rectal Rectal Exam: deferred - Psychiatric Psychiatric: appropriate mood/affect, cooperative Results - Labs CBC & Chem 7: 01/02/20 23:55 01/02/20 23:55 Labs: Abnormal lab results 01/02/20 01/02/20 Range/Units 23:55 23:55 RBC 3.54 L (3.65-5.03) M/mm3 RDW 17.7 H (13.2-15.2) % Sodium 130 L (137-145) mmol/L Potassium 5.1 H (3.6-5.0) mmol/L Chloride 87.4 L (98-107) mmol/L Carbon Dioxide 21 L (22-30) mmol/L BUN 98 H (7-17) mg/dL Creatinine 10.4 H D (0.7-1.2) mg/dL Glucose 111 H (65-100) mg/dL NT-Pro-B Natriuret Pep > 27543 H (0-900) pg/mL - Imaging and Cardiology Venous US: image reviewed (Left lower extremity arterial duplex) Assessment and Plan Patient with bilateral lower extremity swelling. Negative for DVT per outpatien t study. Given the length of the patient's symptoms, the patient has a likely a component of volume overload, venous insufficiency as well as lymphedema. She does have peripheral vascular disease with a popliteal artery high-grade stenosis versus occlusion on the left. No emergent need to treat while the patient is in the hospital. Would recommend that the patient be diuresed and dialyzed. She will follow-up with her outpatient vascular surgeon Dr. Chowdhury to determine the time and appropriate treatment for her left popliteal artery.
[2020-01-03] MEDS ORDERED: traMADol 50 MG TAB PO PRN (11:30)
--- NOTE | 2020-01-03 12:33 | Vascular Lab Report ---
DUPLEX DOPPLER LOWER EXTREMITY ARTERIAL, LEFT INDICATION: diabetic ulcer. TECHNIQUE: Arterial duplex examination of the left lower extremity performed using B-mode, color flow and spectr al Doppler assessment. FINDINGS: LEFT: Common Femoral Artery: PSV 188 cm/sec. Biphasic waveform. Proximal SFA: PSV 167 cm/sec. Biphasic waveform. Mid SFA: PSV 158 cm/sec. Biphasic waveform. Distal SFA: PSV 141 cm/sec. Biphasic waveform. Popliteal artery: PSV 147 cm/sec. Biphasic waveform. Popliteal artery: PSV 28 cm/s. Biphasic waveform Posterior tibial artery: PSV 17 cm/sec. Monophasic waveform. Dorsalis Pedis Artery: PSV 18 cm/sec. Monophasic waveform. IMPRESSION: 1. There is significant velocity decrease in the popliteal artery with velocity decreases distally. T here is monophasic flow in the runoff vessels. Findings are indicative of significant disease in the runoff vessels. Doppler Waveform: * Triphasic is normal. * Biphasic is abnormal if clear transition from triphasic signal along vascular tree. * Monophasic is abnormal. Signer Name: Naseem Charles MD Signed: 01/03/2020 12:29 PM Workstation Name: [id number]
[2020-01-03] MEDS ORDERED: SODIUM CHLORIDE*PRIMING MACHINE ONLY FOR DIALYSIS MC ONE (14:58)
[2020-01-03] MEDS: IBUPROFEN 800 MG TAB PO SCH ×2 (16:03→20:55)
[2020-01-03] MEDS: MAGNESIUM OXIDE 400 MG TAB PO SCH (16:03)
[2020-01-03] MEDS: VALSARTAN 40 MG TAB PO SCH ×2 (16:04→20:59)
--- NOTE | 2020-01-03 16:58 | Vascular Lab Report ---
DUPLEX DOPPLER BILATERAL LOWER EXTREMITY VEINS INDICATION: Bilateral leg swelling FINDINGS: There is no thrombus within the deep veins of either lower extremity from the common femoral to the c jessica veins. There is normal compression and augmentation on spectral analysis. IMPRESSION: No sonographic evidence for DVT in either lower extremity. Signer Name: Adrián Diaz MD Signed: 01/03/2020 4:54 PM Workstation Name: [id number]
--- NOTE | 2020-01-03 20:20 | Consultation ---
History of Present Illness - Reason for Consult Consult date: 01/03/20 end stage renal disease, hyponatremia, hyperkalemia Requesting physician: GIGI CHARLES - History of Present Illness 64-year-old lady with a history of hypertension, type 2 diabetes mellitus, complicated by end-stage renal disease on hemodialysis on a Tuesday, Tuesday and Tuesday schedule. Patient dialyzes for 3-1/[address] [facility]. She has had problems with fluid overload with numerous hospitalizations since she moved here from [place] a few months ago.patient also had a pressure ulcer on the tip of the left first toe all referred to vascular surgeon. Arteriogram showed high-grade stenosis to near occlusion of the right popliteal artery. She is actually scheduled to have a surgical procedure tomorrow. Presents now because of worsening bilateral lower extremity swelling and pain. She denies any fever or chills. No cough. She developed worsening shortness of breath and vomited once in the ER last night. On account of her symptoms she came to the hospital for further management. Past History Past Medical History: COPD, diabetes, dialysis, ESRD, hypertension, PVD Past Surgical History: Other (Left arm AV fistula) Social history: no significant social history, lives with family, other (lives with her .). denies: smoking (quit smoking years ago.), alcohol abuse, prescription drug abuse Family history: cancer (Father at age 62 of lung cancer. Mother had diabetes and kidney disease at age 57.), diabetes Medications and Allergies Allergies Allergy/AdvReac Type Severity Reaction Status Date / Time cheese Allergy Mild Itching Verified 12/20/19 10:19 iodine Allergy Mild Anaphylaxis Verified 12/20/19 10:16 clonidine Allergy Anaphylaxis Verified 12/19/19 04:13 shellfish derived AdvReac Angioedema Verified 12/19/19 04:13 Home Medications Medication Instructions Recorded Confirmed Last Taken Type Atorvastatin [Lipitor] 40 mg PO DAILY 11/06/19 12/19/19 11/05/19 History Acetaminophen [Acetaminophen 8 650 mg PO Q8H PRN #30 tablet.er 11/21/19 12/19/19 Unknown Rx Hour] Cyclobenzaprine HCl [Flexeril 5 MG 5 mg PO QHS PRN #20 tab 11/21/19 12/19/19 Unknown Rx TAB] HYDROcodone/APAP 5-325 [[place] 1 each PO Q6HR PRN #18 tablet 12/13/19 12/19/19 Unknown Rx 5-325 mg TAB] amLODIPine 10 mg PO DAILY 90 Days #90 tab 12/18/19 12/19/19 Unknown Rx Gabapentin 100 mg PO DAILY 12/19/19 12/19/19 Unknown History Ibuprofen 800 mg PO TID 12/19/19 12/19/19 Unknown History Magnesium Oxide [Mag-Ox] 400 mg PO QDAY 12/19/19 12/19/19 Unknown History diphenhydrAMINE [Benadryl CAP] 25 mg PO Q8HR PRN 12/19/19 12/19/19 Unknown H istory labetaloL [Labetalol 100mg TAB] 100 mg PO Q8H #90 tablet 12/21/19 Unknown Rx traMADoL [Ultram] 50 mg PO Q6HR PRN #20 tablet 12/29/19 Unknown Rx Active Meds: Active Medications Acetaminophen (Tylenol) 650 mg PO Q8HR PRN PRN Reason: Pain, Mild (1-3) Acetaminophen/Hydrocodone Bitart ([place] 5/325) 1 each PO Q6HR PRN PRN Reason: Pain , Severe (7-10) Amlodipine Besylate (Amlodipine) 10 mg PO DAILY [facility] Last Admin: 01/03/20 08:47 Dose: 10 mg Documented by: Atorvastatin Calcium (Lipitor) 40 mg PO DAILY [facility] Last Admin: 01/03/20 16:03 Dose: 40 mg Documented by: Cyclobenzaprine HCl (Flexeril) 5 mg PO QHS PRN PRN Reason: Muscle Spasm Dextrose (D50w (25gm) Syringe) 50 ml IV Q30MIN PRN; Protocol PRN Reason: Hypoglycemia Diphenhydramine HCl (Benadryl) 25 mg PO Q8HR PRN PRN Reason: Itching Last Admin: 01/03/20 16:06 Dose: 25 mg Documented by: Gabapentin (Gabapentin) 100 mg PO DAILY [facility] Last Admin: 01/03/20 16:03 Dose: 100 mg Documented by: Sodium Chloride (Nacl 0.9%) 100 mls @ 999 mls/hr IV SILVERIO PRN PRN Reason: Hypotension Ibuprofen (Ibuprofen) 800 mg PO TID [facility] Last Admin: 01/03/20 16:03 Dose: 800 mg Documented by: Labetalol HCl (Labetalol) 100 mg PO Q8HR [facility] Last Admin: 01/03/20 16:04 Dose: 100 mg Documented by: Magnesium Oxide (Mag-Ox) 400 mg PO QDAY [facility] Last Admin: 01/03/20 16:03 Dose: 400 mg Documented by: Ondansetron HCl (Zofran) 4 mg IV Q8HR PRN PRN Reason: Nausea And Vomiting Sodium Chloride (Sodium Chloride Flush Syringe 10 Ml) 10 ml IV BID [facility] Last Admin: 01/03/20 16:10 Dose: Not Given Documented by: Sodium Chloride (Sodium Chloride Flush Syringe 10 Ml) 10 ml IV PRN PRN PRN Reason: LINE FLUSH Tramadol HCl (Ultram) 50 mg PO Q6HR PRN PRN Reason: Pain, Moderate (4-6) Valsartan (Diovan) 80 mg PO BID [facility] Last Admin: 01/03/20 16:04 Dose: 80 mg Documented by: Review of Systems All systems: negative (Constitutional: No fever or chills. Appetite is diminished but no weight loss) Exam - Vital Signs Vital signs: Vital Signs Temp Pulse Resp BP Pulse Ox 98.5 F 74 18 211/101 98 01/02/20 22:58 01/02/20 22:58 01/02/20 22:58 01/02/20 22:58 01/02/20 22:58 - Physical Exam Narrative exam: middle-aged Afro-[place] female lying in bed on dialysisn no acute distress HEENT: Normocephalic atraumatic, pupils equal round reactive to light Normal oropharynx, Neck: Supple, no venous distention, no goiter CVS: S1S2 RRR Huber Huber, rub or gallop Lungs: mildly diminished in the lower zones,no use of accessory muscles of respiration Abdomen: Full, soft, nontender, no organomegaly no bruit, bowel sounds are present Extremities: 2+ edema, no cyanosis or clubbing Urinary: Deferred Musculo-skeletal: No joint deformities or swelling Neuro: Awake, alert, no focal deficits Results - Lab Results 01/02/20 23:55 01/02/20 23:55 Most recent lab results Calcium 9.0 mg/dL (8.4-10.2) 01/02/20 23:55 Assessment and Plan - Patient Problems (1) Volume overload Current Visit: Yes Status: Acute Qualifiers: Hypervolemia type: unspecified Qualified Code(s): E87.70 - Fluid overload, unspecified Plan to address problem: fluid overload secondary to dietary sodium and fluid indiscretion. Intensive dialysis. Counseled the patient again about the importance of sodium and fluid restriction (2) Hyperkalemia Current Visit: Yes Status: Acute Plan to address problem: dialyze on a low potassium bathand follow-up potassium level (3) Hyponatremia Current Visit: Yes Status: Acute Plan to address problem: hypervolemic hyponatremia. Follow-up sodium with fluid removal (4) Bilateral lower extremity edema Current Visit: Yes Status: Acute Plan to address problem: gabapentin could also be contributing. Will switch to duloxetine. Discussed with primary attending (5) Type 2 diabetes mellitus with diabetic nephropathy Current Visit: Yes Status: Acute Plan to address problem: blood sugar management by primary attending (6) End stage renal disease on dialysis Current Visit: No Status: Acute Plan to address problem: hemodialysis today for fluid removal and also solute clearance. If The patient is not discharged home, will dialyze again tomorrow. (7) Hypertensive chronic kidney disease with stage 5 chronic kidney disease or end stage renal disease Current Visit: No Status: Acute Plan to address problem: follow-up blood pressure on current medication
[2020-01-03] MEDS ORDERED: CYCLOBENZAPRINE 10 MG TAB PO PRN (22:00)
[2020-01-04] MEDS: diphenhydrAMINE 25 MG CAP PO PRN ×2 (01:16→09:01)
--- NOTE | 2020-01-04 07:54 | Discharge Summary ---
Providers - Providers Date of Admission: 01/03/20 06:16 Attending physician: GIGI CHARLES MD 01/03/20 06:06 Consult to Physician [CONS] Routine Comment: Consulting Provider: CARLTON GARCIA Physician Instructions: Reason For Exam: Dialysis 01/03/20 07:34 Consult to Physician [CONS] Routine Comment: Consulting Provider: KELVIN RICHARDSON Physician Instructions: Reason For Exam: left hallux Diabetic Ulcer 01/03/20 07:39 Physical Therapy Evaluation and Treat [CONS] Routine Comment: Reason For Exam: chronic lymphedema 01/03/20 16:34 Consult to Wound/ET Nurse [CONS] Routine Reason For Exam: wound eval left foot, big toe Primary care physician: ALIZE RAMIREZ Hospitalization Reason for admission: Volume overload Condition: Fair Hospital course: Patient is a 64-year-old female with past medical history of end-stage renal disease, diet-controlled diabetes mellitus, hypertension, CAD with previous bypass surgery. Hypertension, who presents to the hospital with complaints of bilateral lower extremity swelling and was noted to have a blood pressure systolic of 220/69 on admission. Based on ED documentation and review of records patient has been seen here in the hospital for the same symptoms multiple times in the prior admission she has had shortness of breath and chest discomfort with underlying volume overload. Was seen by cardiology prior set up for outpatient stress test. Patient was also seen here 3 days ago and also had a lower extremity Doppler which was negative for DVT. According to the patient she has been noted to have some blockage in her veins questionable varicose veins for which she is supposed to see her doctor. She claims she has not missed any recent dialysis sessions. PCP: Alize Ramirez Corporate Intern: Dr. Freeman Dialysis days Tuesday * While the patient had been seen in the hospital multiple times, reports more pain this time. she has not been using her gabpentin * The patient was recently here and had an outpatient bilateral lower extremity venous Doppler ultrasound that was negative for any DVT. However the patient says that she is currently being evaluated for a "blockage" in 1 of her legs and is supposed to have some procedure coming up * Patient per Nephrology will have dialysis today, I have also discussed with them and will change gabapentin to cymbalta, as gabapentin can lead to fluid retention. * Patient underwent dialysis. Following discussion with nephrology patient was noted to be consuming more salt diet recommended. Extensive counseling was provided. * Patient was also seen by vascular surgeon ultrasound was negative for DVT per outpatient study per their documentation. Further recommendations as noted t he patient has a likely a component of volume overload, venous insufficiency as well as lymphedema. She does have peripheral vascular disease with a popliteal artery high-grade stenosis versus occlusion on the left. No emergent need to treat while the patient is in the hospital. Would recommend that the patient be diuresed and dialyzed. She will follow-up with her outpatient vascular surgeon Dr. Fernandez to determine the time and appropriate treatment for her left popliteal artery. * Blood pressure is better controlled this morning. Diovan was reintroduced as discussed previously and past admission. Hypertensive urgency/hypertensive chronic kidney disease with stage V chronic kidney disease with end-stage renal disease End-stage renal disease on HD Volume overload Lower extremity swelling Hypervolemic hyponatremia CAD status post CABG Hyperkalemia Elevated proBNP Anemia of chronic disease Type 2 AL HTN DM Type 2 with hyperglycemia Chronic pain syndrome Disposition: DC/TX-06 HOME UNDER HOME [facility] Time spent for discharge: 35 minutes Core Measure Documentation - Palliative Care Palliative Care/ Comfort Measures: Not Applicable - Core Measures Any of the following diagnoses?: none Exam - Physical Exam Narrative exam: GENERAL: The patient is well-developed well-nourished. HENT: Normocephalic. Atraumatic. Patient has moist mucous membranes. EYES: Extraocular motions are intact. NECK: Supple. Trachea is midline. CHEST/LUNGS: Clear to auscultation. There is no respiratory distress noted. HEART/CARDIOVASCULAR: Regular. There is no tachycardia. ABDOMEN: Abdomen is soft, nontender. Patient has normal bowel sounds. There is no abdominal distention. SKIN: 2-3+ pitting edema from the mid thigh distally. NEURO: The patient is awake, alert, and oriented. The patient is cooperative. The patient has no focal neurologic deficits. Normal speech. MUSCULOSKELETAL: Tenderness to palpation along the bilateral lower extremities. There is no limitation range of motion. - Constitutional Vitals: Temp Pulse Resp BP Pulse Ox 97.7 F 61 18 131/54 98 01/04/20 07:45 01/04/20 07:45 01/04/20 07:45 01/04/20 07:45 01/04/20 07:45 Plan Activity: advance as tolerated, fall precautions Diet: low salt, diabetic, renal Wound: per your surgeon's advice Special Instructions: restrict fluid intake to (1000cc/day), record daily weights, record daily BP diary, record blood sugar diary, other (Reduce salt intake) Follow up with: ALIZE RAMIREZ MD [Primary Care Provider] - 3-5 Days CARLTON GARCIA MD [Staff Physician] - 7 Days GIGI FERNANDEZ MD [Staff Physician] - 7 Days Prescriptions: DULoxetine [Cymbalta] 30 mg PO QDAY #30 capsule Valsartan [Diovan] 80 mg PO DAILY #30 tablet
[2020-01-04] MEDS: IBUPROFEN 800 MG TAB PO SCH ×2 (08:56→13:27)
[2020-01-04] MEDS: VALSARTAN 40 MG TAB PO SCH (09:00)
[2020-01-04] MEDS: amLODIPine 10 MG TAB PO SCH (09:01)
[2020-01-04] MEDS: MAGNESIUM OXIDE 400 MG TAB PO SCH (09:01)
[2020-01-04] MEDS ORDERED: DULoxetine 30 MG CAP PO SCH (10:00)
[2020-01-04 10:05] LABS: Calcium 7.9 mg/dL (8.4-10.2)
[2020-01-04] MEDS ORDERED: SODIUM CHLORIDE 0.9% 100 ML IV PRN (11:02)
--- NOTE | 2020-01-04 13:35 | Progress Note ---
Assessment and Plan - Patient Problems (1) ESRD needing dialysis Current Visit: Yes Status: Acute Plan to address problem: hemodialysis again today for fluid removal and also solute clearance. stable for discharge after HD today, to cont outpatient HD on TTS schedule (2) Hyperkalemia Current Visit: Yes Status: Acute Plan to address problem: dialyze on a low potassium bathand follow-up potassium level (3) Hyponatremia Current Visit: Yes Status: Acute Plan to address problem: hypervolemic hyponatremia. Follow-up sodium with fluid removal (4) Lower extremity pain, bilateral Current Visit: Yes Status: Acute Plan to address problem: fluid overload secondary to dietary sodium and fluid indiscretion. Intensive dialysis. Counseled the patient again about the importance of sodium and fluid restriction (5) Type 2 diabetes mellitus with diabetic nephropathy Current Visit: Yes Status: Acute Plan to address problem: blood sugar management by primary attending (6) Hypertensive chronic kidney disease with stage 5 chronic kidney disease or e nd stage renal disease Current Visit: No Status: Acute Plan to address problem: follow-up blood pressure on current medication Subjective Date of service: 01/04/20 Principal diagnosis: ESRD Interval history: Pt awake, alert, c/o persistent b/l LE edema, denies CP, SOB, palpitations, n/v/d Objective - Vital Signs Vital signs: Vital Signs - 12hr 01/04/20 01/04/20 01/04/20 04:27 06:01 07:45 Temperature 98.9 F 97.7 F Pulse Rate 61 60 61 Pulse Rate [ Apical] Pulse Rate [ From Monitor] Respiratory 18 18 Rate Blood Pressure 140/65 141/71 131/54 O2 Sat by Pulse 96 98 Oximetry 01/04/20 01/04/20 01/04/20 08:38 08:56 08:57 Temperature Pulse Rate 61 Pulse Rate [ 81 Apical] Pulse Rate [ 81 From Monitor] Respiratory 17 16 Rate Blood Pressure 157/64 O2 Sat by Pulse 98 97 Oximetry 01/04/20 01/04/20 01/04/20 09:00 09:01 12:07 Temperature 98.6 F Pulse Rate 63 63 60 Pulse Rate [ Apical] Pulse Rate [ From Monitor] Respiratory 18 Rate Blood Pressure 157/64 157/64 137/65 O2 Sat by Pulse 100 Oximetry - General Appearance General appearance: well-developed, well-nourished, appears stated age EENT: ATNC, PERRL, mucous membranes moist Neck: no JVD Respiratory: Present: Decreased Breath Sounds Cardiology: regular, S1S2 Gastrointestinal: normoactive bowel sounds Integumentary: no rash, other (++ b/l LE ) Neurologic: no focal deficit, alert and oriented x3, strength 5/5, CN 3-12 intact Psychiatric: mood/affect appropriate, cooperative - Lab 01/02/20 23:55 01/04/20 08:17 Most recent lab results Calcium 7.9 mg/dL (8.4-10.2) L 01/04/20 08:17 Medications & Allergies - Medications Allergies/Adverse Reactions: Allergies cheese Allergy (Mild, Verified 12/20/19 10:19) Itching iodine Allergy (Mild, Verified 12/20/19 10:16) Anaphylaxis clonidine Allergy (Verified 12/19/19 04:13) Anaphylaxis shellfish derived Adverse Reaction (Verified 12/19/19 04:13) Angioedema Home Medications: Home Medications Medication Instructions Recorded Confirmed Last Taken Type Atorvastatin [Lipitor] 40 mg PO DAILY 11/06/19 01/04/20 01/02/20 10:00 History Acetaminophen [Acetaminophen 8 650 mg PO Q8H PRN #30 tablet.er 11/21/19 01/04/20 01/03/20 22:00 Rx Hour] Cyclobenzaprine HCl [Flexeril 5 MG 5 mg PO QHS PRN #20 tab 11/21/19 01/04/20 01/01/20 22:00 Rx TAB] HYDROcodone/APAP 5-325 [[place] 1 each PO Q6HR PRN #18 tablet 12/13/19 01/04/20 01/01/20 22:00 Rx 5-325 mg TAB] amLODIPine 10 mg PO DAILY 90 Days #90 tab 12/18/19 01/04/20 01/01/20 10:00 Rx Ibuprofen 800 mg PO TID 12/19/19 01/04/20 01/02/20 22:00 History Magnesium Oxide [Mag-Ox] 400 mg PO QDAY 12/19/19 01/04/20 01/03/20 10:00 History diphenhydrAMINE [Benadryl CAP] 25 mg PO Q8HR PRN 12/19/19 01/04/20 01/03/20 21:00 History labetaloL [Labetalol 100mg TAB] 100 mg PO Q8H #90 tablet 12/21/19 01/04/20 01/02/20 10:00 Rx traMADoL [Ultram 50 MG tab] 50 mg PO Q6HR PRN #20 tablet 12/29/19 01/04/20 12/31/19 10:00 Rx DULoxetine [Cymbalta] 30 mg PO QDAY #30 capsule 01/04/20 Unknown Rx Valsartan [Diovan] 80 mg PO DAILY #30 tablet 01/04/20 Unknown Rx Active Medications: Generic Name Dose Route Start Last Admin Trade Name Freq PRN Reason Stop Dose Admin Acetaminophen 650 mg 01/03/20 10:47 Tylenol PO Q8HR PRN Pain, Mild (1-3) Acetaminophen/Hydrocodone [place] 1 each 01/03/20 07:15 01/03/20 21:00 [place] 5/325 PO 1 each Q6HR PRN Administration Pain , Severe (7-10) Amlodipine Besylate 10 mg 01/03/20 10:00 01/04/20 09:01 Amlodipine PO 10 mg DAILY PHILLY Administration Atorvastatin Calcium 40 mg 01/03/20 10:00 01/04/20 09:01 Lipitor PO 40 mg DAILY PHILLY Administration Cyclobenzaprine HCl 5 mg 01/03/20 22:00 Flexeril PO QHS PRN Muscle Spasm Dextrose 50 ml 01/03/20 07:36 D50w (25gm) Syringe IV Q30MIN PRN Hypoglycemia Protocol Diphenhydramine HCl 25 mg 01/03/20 07:15 01/04/20 09:01 Benadryl PO 25 mg Q8HR PRN Administration Itching Duloxetine HCl 30 mg 01/04/20 10:00 01/04/20 09:03 Cymbalta PO 30 mg QDAY PHILLY Administration Sodium Chloride 100 mls @ 999 mls/hr 01/03/20 07:32 Nacl 0.9% IV SILVERIO PRN Hypotension Ibuprofen 800 mg 01/03/20 14:00 01/04/20 13:27 Ibuprofen PO Not Given TID PHILLY Labetalol HCl 100 mg 01/03/20 09:00 01/04/20 13:27 Labetalol PO Not Given Q8HR PHILLY Magnesium Oxide 400 mg 01/03/20 10:00 03/20/20 09:01 Mag-Ox PO 400 mg QDAY PHILLY Administration Ondansetron HCl 4 mg 01/03/20 07:36 Zofran IV Q8HR PRN Nausea And Vomiting Sodium Chloride 10 ml 01/03/20 10:00 01/04/20 09:01 Sodium Chloride Flush Syringe 10 Ml IV 10 ml BID PHILLY Administration Sodium Chloride 10 ml 01/03/20 07:36 Sodium Chloride Flush Syringe 10 Ml IV PRN PRN LINE FLUSH Tramadol HCl 50 mg 01/03/20 11:30 Ultram PO Q6HR PRN Pain, Moderate (4-6) Valsartan 80 mg 01/03/20 12:00 01/04/20 09:00 Diovan PO 80 mg BID PHILLY Administration
[2020-01-04] MEDS ORDERED: SODIUM CHLORIDE*PRIMING MACHINE ONLY FOR DIALYSIS MC ONE (13:38)
[2020-01-04 17:43] VITALS: BP 168/80
== END 2020-01-04 18:41 | disposition home health service (06) ==
LOC: ED 22:44 → 4A 01-03 06:16
PROVIDERS: ADMIT Internal Medicine Geriatric Medicine; ATTEND Internal Medicine
DX: I16.0 Hypertensive urgency (principal); I13.2 Hypertensive heart and chronic kidney disease with heart failure and with stage 5 chronic kidney disease, or end stage renal disease; E11.22 Type 2 diabetes mellitus with diabetic chronic kidney disease; N18.6 End stage renal disease; I50.9 Heart failure, unspecified; D63.1 Anemia in chronic kidney disease; I25.10 Atherosclerotic heart disease of native coronary artery without angina pectoris; R22.42 Localized swelling, mass and lump, left lower limb; E87.1 Hypo-osmolality and hyponatremia; E87.6 Hypokalemia; R79.89 Other specified abnormal findings of blood chemistry; E11.65 Type 2 diabetes mellitus with hyperglycemia; E78.5 Hyperlipidemia, unspecified; J44.9 Chronic obstructive pulmonary disease, unspecified; E11.51 Type 2 diabetes mellitus with diabetic peripheral angiopathy without gangrene; E87.70 Fluid overload, unspecified; Z95.1 Presence of aortocoronary bypass graft; Z99.2 Dependence on renal dialysis; Z85.3 Personal history of malignant neoplasm of breast; Z90.710 Acquired absence of both cervix and uterus; Z79.899 Other long term (current) drug therapy; Z91.013 Allergy to seafood; Z91.018 Allergy to other foods
CPT/HCPCS: 36415; 71046; 80048; 82962; 83880; 85025; 87116; 93005; 93010; 93926; 93970; 96372; 96374; 96375; 97162; 99285; A9270; G0257; G0378; J0360; J1940; J2270; J2405; J7030

== ENCOUNTER 2020-01-09 12:02 | Inpatient (IN) | payer MEDICARE ==
--- NOTE | 2020-01-09 12:28 | Emergency Department Report ---
Blank Doc - Documentation Documentation: 64-year-old female that presents with leg swelling and pain bilateral, chest p ain, and SOB. Was sent by PCP for stress test and dialysis. This initial assessment/diagnostic orders/clinical plan/treatment(s) is/are subject to change based on patient's health status, clinical progression and re- assessment by fellow clinical providers in the ED. Further treatment and workup at subsequent clinical providers discretion. Patient/guardians urged not to elope from the ED as their condition may be serious if not clinically assessed and managed. Initial orders include: 1- Patient sent to MAIN ED for further evaluation and treatment 2- cardiac workup
--- NOTE | 2020-01-09 12:58 | Emergency Department Report ---
ED Shortness of Breath HPI - General Chief Complaint: Dyspnea/Respdistress Stated Complaint: FLUID OVER LOAD PER. DR. GARCIA, CHEST TIGHTNESS Time Seen by Provider: 01/09/20 12:26 Source: patient Mode of arrival: Ambulatory Limitations: No Limitations - History of Present Illness Initial Comments: Patient is 64 years old female with history of end-stage renal disease on hemodialysis. Patient also had history of CABG, hypertension and diabetes and COPD. Patient presented to the ER from her primary care physician office for evaluation of chest pain, shortness of breath and generalized body swelling. Patient stated that she finished her dialysis yesterday but she did not feel better. Patient denied any fever or chills. No abdominal pain, nausea or vomiting. MD Complaint: shortness of breath, cough, chest pain -: Last night Severity: moderate Pain Scale: 4 Consistency: constant Known History Of: congestive heart failure - Related Data Home Medications Medication Instructions Recorded Confirmed Last Taken Atorvastatin [Lipitor] 40 mg PO DAILY 11/06/19 01/04/20 01/02/20 10:00 Ibuprofen 800 mg PO TID 12/19/19 01/04/20 01/02/20 22:00 Magnesium Oxide [Mag-Ox] 400 mg PO QDAY 12/19/19 01/04/20 01/03/20 10:00 diphenhydrAMINE [Benadryl CAP] 25 mg PO Q8HR PRN 12/19/19 01/04/20 01/03/20 21:00 Previous Rx's Medication Instructions Recorded Last Taken Type Acetaminophen [Acetaminophen 8 650 mg PO Q8H PRN #30 tablet.er 11/21/19 01/03/20 22:00 Rx Hour] Cyclobenzaprine HCl [Flexeril 5 MG 5 mg PO QHS PRN #20 tab 11/21/19 01/01/20 22:00 Rx TAB] HYDROcodone/APAP 5-325 [[place] 1 each PO Q6HR PRN #18 tablet 12/13/19 01/01/20 22:00 Rx 5-325 mg TAB] amLODIPine 10 mg PO DAILY 90 Days #90 tab 12/18/19 01/01/20 10:00 Rx labetaloL [Labetalol 100mg TAB] 100 mg PO Q8H #90 tablet 12/21/19 01/02/20 10:00 Rx traMADoL [Ultram 50 MG tab] 50 mg PO Q6HR PRN #20 tablet 12/29/19 12/31/19 10:00 Rx DULoxetine [Cymbalta] 30 mg PO QDAY #30 capsule 01/04/20 Unknown Rx Valsartan [Diovan] 80 mg PO DAILY #30 tablet 01/04/20 Unknown Rx Allergies Allergy/AdvReac Type Severity Reaction Status Date / Time cheese Allergy Mild Itching Verified 12/20/19 10:19 iodine Allergy Mild Anaphylaxis Verified 12/20/19 10:16 clonidine Allergy Anaphylaxis Verified 12/19/19 04:13 shellfish derived AdvReac Angioedema Verified 12/19/19 04:13 ED Review of Systems ROS: Stated complaint: FLUID OVER LOAD PER. DR. GARCIA, CHEST TIGHTNESS Other details as noted in HPI Comment: All other systems reviewed and negative Constitutional: denies: chills, fever Respiratory: cough, orthopnea, shortness of breath, SOB with exertion, SOB at rest Cardiovascular: chest pain. denies: palpitations Gastrointestinal: denies: abdominal pain, nausea, vomiting Musculoskeletal: denies: back pain ED Past Medical Hx - Past Medical History Hx Hypertension: Yes Hx Congestive Heart Failure: Yes Hx Diabetes: Yes Hx Renal Disease: Yes (Tues, Thurs, Sat) Hx COPD: Yes Additional medical history: Breast CA 2017 - Surgical History Hx Open Heart Surgery: Yes (Quadruple Bypass) Additional Surgical History: Hysterectomy - Social History Smoking Status: Never Smoker Substance Use Type: None - Medications Home Medications: Home Medications Medication Instructions Recorded Confirmed Last Taken Type Atorvastatin [Lipitor] 40 mg PO DAILY 11/06/19 01/04/20 01/02/20 10:00 History Acetaminophen [Acetaminophen 8 650 mg PO Q8H PRN #30 tablet.er 11/21/19 01/04/20 01/03/20 22:00 Rx Hour] Cyclobenzaprine HCl [Flexeril 5 MG 5 mg PO QHS PRN #20 tab 11/21/19 01/04/20 01/01/20 22:00 Rx TAB] HYDROcodone/APAP 5-325 [[place] 1 each PO Q6HR PRN #18 tablet 12/13/19 01/04/20 01/01/20 22:00 Rx 5-325 mg TAB] amLODIPine 10 mg PO DAILY 90 Days #90 tab 12/18/19 01/04/2012/31/20 10:00 Rx Ibuprofen 800 mg PO TID 12/19/19 01/04/20 01/02/20 22:00 History Magnesium Oxide [Mag-Ox] 400 mg PO QDAY 12/19/19 01/04/20 01/03/20 10:00 History diphenhydrAMINE [Benadryl CAP] 25 mg PO Q8HR PRN 12/19/19 01/04/20 01/03/20 21:00 History labetaloL [Labetalol 100mg TAB] 100 mg PO Q8H #90 tablet 12/21/19 01/04/20 01/02/20 10:00 Rx traMADoL [Ultram 50 MG tab] 50 mg PO Q6HR PRN #20 tablet 12/29/19 01/04/20 12/31/19 10:00 Rx DULoxetine [Cymbalta] 30 mg PO QDAY #30 capsule 01/04/20 Unknown Rx Valsartan [Diovan] 80 mg PO DAILY #30 tablet 01/04/20 Unknown Rx ED Physical Exam - General Limitations: No Limitations General appearance: alert, in distress (Moderate respiratory distress) - Head Head exam: Present: atraumatic, normocephalic, normal inspection - Eye Eye exam: Present: normal appearance - ENT ENT exam: Present: normal exam, normal orophraynx, mucous membranes moist - Neck Neck exam: Present: normal inspection, full ROM. Absent: tenderness, meningismus, lymphadenopathy, thyromegaly - Respiratory Respiratory exam: Present: respiratory distress, rales. Absent: wheezes, rhonchi - Cardiovascular Cardiovascular Exam: Present: regular rate, normal rhythm, normal heart sounds - GI/Abdominal GI/Abdominal exam: Present: soft, normal bowel sounds. Absent: distended, tenderness, guarding, rebound, rigid, organomegaly, mass, bruit, pulsatile mass, hernia - Extremities Exam Extremities exam: Present: normal inspection, full ROM, normal capillary refill. Absent: tenderness, pedal edema, joint swelling, calf tenderness - Back Exam Back exam: Present: normal inspection, full ROM. Absent: CVA tenderness (R), CVA tenderness (L) - Neurological Exam Neurological exam: Present: alert, oriented X3, CN II-XII intact. Absent: motor sensory deficit - Psychiatric Psychiatric exam: Present: normal mood - Skin Skin exam: Present: warm, intact, normal color ED Course Vital Signs 01/09/20 01/09/20 01/09/20 12:19 12:26 12:38 Temperature 99.0 F 99 F Pulse Rate 75 74 Respiratory 20 20 11 L Rate Blood Pressure 184/71 184/71 Blood Pressure [Right] O2 Sat by Pulse 97 95 Oximetry 01/09/20 01/09/20 01/09/20 12:45 12:53 13:00 Temperature Pulse Rate 72 72 Respiratory 15 18 9 L Rate Blood Pressure 189/79 185/67 Blood Pressure [Right] O2 Sat by Pulse 99 100 100 Oximetry 01/09/20 13:12 Temperature 98.2 F Pulse Rate 72 Respiratory 18 Rate Blood Pressure Blood Pressure 189/79 [Right] O2 Sat by Pulse 100 Oximetry ED Medical Decision Making - Lab Data Result diagrams: 01/09/20 12:55 01/09/20 12:55 - EKG Data -: EKG Interpreted by Co EKG shows normal: sinus rhythm Rate: normal - EKG Data Interpretation: no acute changes - Radiology Data Radiology results: report reviewed - Medical Decision Making Patient is 64 years old female with history of end-stage renal disease on hemodialysis. Patient also had history of CABG, hypertension and diabetes and COPD. Patient presented to the ER from her primary care physician office for evaluation of chest pain, shortness of breath and generalized body swelling. Patient stated that she finished her dialysis yesterday but she did not feel better. Patient denied any fever or chills. No abdominal pain, nausea or vomiting. EKG unremarkable. Troponin is elevated. I discussed the patient with Dr. Jules watts, body former and he stated that he will dialyze the patient in the morning. Patient discussed with Dr. Perez, he agreed to admit the patient to medical service for further management. Critical care attestation.: If time is entered above; I have spent that time in minutes in the direct care of this critically ill patient, excluding procedure time. ED Disposition Clinical Impression: Volume overload, Chest pain Disposition: DC-09 OP ADMIT IP TO THIS HOSP Is pt being admited?: Yes Condition: Stable Instructions: Chest Pain (ED)
[2020-01-09 13:09] LABS: Basophils % (Auto) 0.6 % (0.0-1.8); Hematocrit 31.9 % (30.3-42.9); Hemoglobin 10.4 gm/dl (10.1-14.3); Lymphocytes # (Auto) 0.3 K/mm3 (1.2-5.4); Lymphocytes % (Auto) 6.8 % (13.4-35.0); Mean Corpuscular HGB Conc 33 % (30-34); Mean Corpuscular Volume 93 fl (79-97); Monocytes # (Auto) 0.6 K/mm3 (0.0-0.8); Monocytes % (Auto) 13.6 % (0.0-7.3); Platelet Count 281 K/mm3 (140-440); Red Blood Count 3.44 M/mm3 (3.65-5.03)
[2020-01-09 13:21] LABS: INR 1.22 (0.87-1.13)
[2020-01-09 13:22] LABS: Partial Thromboplastin Time 31.5 Sec. (24.2-36.6)
[2020-01-09 13:38] LABS: Albumin 3.2 g/dL (3.9-5); Calcium 8.7 mg/dL (8.4-10.2)
[2020-01-09 13:57] LABS: Chol/HDL Ratio 2.61 %
--- NOTE | 2020-01-09 13:58 | XRay Report ---
CHEST 1 VIEW INDICATION / CLINICAL INFORMATION: Chest Pain. COMPARISON: 01/02/2020 FINDINGS: SUPPORT DEVICES: Port-A-Cath remains on the left. HEART / MEDIASTINUM: Minimally enlarged with evidence of median sternotomy. LUNGS / PLEURA: Left lung appears clear. Right lung consolidation shows improvement. No effusions or edema. No pneumothorax. ADDITIONAL FINDINGS: No significant additional findings. IMPRESSION: 1 Improving chest Signer Name: Marcial Bill MD Signed: 01/09/2020 1:54 PM Workstation Name: [id number]
[2020-01-09] MEDS ORDERED: ASPIRIN 325 MG TAB ONE (14:15)
[2020-01-09] MEDS ORDERED: ASPIRIN 81 MG TAB CHEW PO ONE (14:26)
--- NOTE | 2020-01-09 16:11 | History and Physical Report ---
History of Present Illness Date of examination: 01/09/20 Date of admission: 01/09/20 14:26 Chief complaint: Chest tightness since a.m. History of present illness: 64-year-old female with history of hyperlipidemia, end-stage renal disease on dialysis, hypertension and depression. Patient comes in for evaluation of chest pain and shortness of breath and generalized body swelling. Patient has orthopnea. In spite of dialysis yesterday does not feel better. No nausea vomiting. No fever or chills. No exposure to coronavirus patients or family members. Past Medical History Hypertension: Yes Congestive Heart Failure: Yes Diabetes: Yes Renal Disease: Yes (Tues, Th, Sat) COPD: Yes Additional medical history: Breast CA 2017 Surgical History Hx Open Heart Surgery: Yes (Quadruple Bypass) Additional Surgical History: Hysterectomy Social History Smoking Status: Never Smoker Substance Use Type: None Family history Hypertension - Medications Home Medications: Home Medications Medication Instructions Recorded Confirmed Last Taken Type Atorvastatin [Lipitor] 40 mg PO DAILY 11/06/19 01/04/20 01/02/20 10:00 History Acetaminophen [Acetaminophen 8 650 mg PO Q8H PRN #30 tablet.er 11/21/19 01/04/20 01/03/20 22:00 Rx Hour] Cyclobenzaprine HCl [Flexeril 5 MG 5 mg PO QHS PRN #20 tab 11/21/19 01/04/20 01/01/20 22:00 Rx TAB] HYDROcodone/APAP 5-325 [[place] 1 each PO Q6HR PRN #18 tablet 12/13/19 01/04/20 01/01/20 22:00 Rx 5-325 mg TAB] amLODIPine 10 mg PO DAILY 90 Days #90 tab 12/18/19 01/04/20 01/01/20 10:00 Rx Ibuprofen 800 mg PO TID 12/19/19 01/04/20 01/02/20 22:00 History Magnesium Oxide [Mag-Ox] 400 mg PO QDAY 12/19/19 01/04/20 01/03/20 10:00 History diphenhydrAMINE [Benadryl CAP] 25 mg PO Q8HR PRN 12/19/19 01/04/20 01/03/20 21:00 History labetaloL [Labetalol 100mg TAB] 100 mg PO Q8H #90 tablet 12/21/19 01/04/20 01/02/20 10:00 Rx traMADoL [Ultram 50 MG tab] 50 mg PO Q6HR PRN #20 tablet 12/29/19 01/04/20 12/31/19 10:00 Rx DULoxetine [Cymbalta] 30 mg PO QDAY #30 capsule 01/04/20 Unknown Rx Valsartan [Diovan] 80 mg PO DAILY #30 tablet 01/04/20 Unknown Rx Review of Systems ROS: Constitutional: no fever, no chills, no weight loss Ears, eyes, nose, mouth and throat: no nasal congestion, no nasal discharge, no sinus pressure, no vision change, no red eye. Neck: No neck pain or rigidity. Cardiovascular: chest pain, orthopnea, no palpitations, leg swelling Respiratory: No shortness of breath, no cough, no congestion, no wheezing Gastrointestinal: no abdominal pain, no nausea, no vomiting Genitourinary : no dysuria, no hematuria Musculoskeletal: no joint swelling or muscle ache Integumentary: no rash, no pruritis Neurological: no parathesias, no numbness, no tingling Endocrine: no cold or heat intolerance, no polyuria or polydipsia Hematologic/Lymphatic: no easy bruising, no easy bleeding, no gland swelling Allergic/Immunologic: no urticaria, no angioedema. Medications and Allergies Allergies Allergy/AdvReac Type Severity Reaction Status Date / Time cheese Allergy Mild Itching Verified 12/20/19 10:19 iodine Allergy Mild Anaphylaxis Verified 12/20/19 10:16 clonidine Allergy Anaphylaxis Verified 12/19/19 04:13 shellfish derived AdvReac Angioedema Verified 12/19/19 04:13 Home Medications Medication Instructions Recorded Confirmed Last Taken Type Atorvastatin [Lipitor] 40 mg PO DAILY 11/06/19 01/04/20 01/02/20 10:00 History Acetaminophen [Acetaminophen 8 650 mg PO Q8H PRN #30 tablet.er 11/21/19 01/04/20 01/03/20 22:00 Rx Hour] Cyclobenzaprine HCl [Flexeril 5 MG 5 mg PO QHS PRN #20 tab 11/21/19 01/04/20 01/01/20 22:00 Rx TAB] HYDROcodone/APAP 5-325 [[place] 1 each PO Q6HR PRN #18 tablet 12/13/19 01/04/20 01/01/20 22:00 Rx 5-325 mg TAB] amLODIPine 10 mg PO DAILY 90 Days #90 tab 12/18/19 01/04/20 01/01/20 10:00 Rx Ibuprofen 800 mg PO TID 12/19/19 01/04/20 01/02/20 22:00 History Magnesium Oxide [Mag-Ox] 400 mg PO QDAY 12/19/19 01/04/20 01/03/20 10:00 History diphenhydrAMINE [Benadryl CAP] 25 mg PO Q8HR PRN 12/19/19 01/04/20 01/03/20 21:00 History labetaloL [Labetalol 100mg TAB] 100 mg PO Q8H #90 tablet 12/21/19 01/04/2001/01 10:00 Rx traMADoL [Ultram 50 MG tab] 50 mg PO Q6HR PRN #20 tablet 12/29/19 01/04/20 12/31/19 10:00 Rx DULoxetine [Cymbalta] 30 mg PO QDAY #30 capsule 01/04/20 Unknown Rx Valsartan [Diovan] 80 mg PO DAILY #30 tablet 01/04/20 Unknown Rx Exam - Constitutional Vitals: Temp Pulse Resp BP Pulse Ox 98.2 F 72 18 189/79 100 01/09/20 13:12 01/09/20 13:12 01/09/20 13:12 01/09/20 13:12 01/09/20 13:12 General appearance: Present: no acute distress, well-nourished - EENT Eyes: Present: PERRL ENT: hearing intact, clear oral mucosa - Neck Neck: Present: supple, normal ROM - Respiratory Respiratory effort: normal Respiratory: bilateral: CTA - Cardiovascular Heart rate: 72 Rhythm: regular Heart Sounds: Present: S1 & S2. Absent: rub, click - Extremities Extremities: no ischemia, pulses intact, pulses symmetrical, No edema Peripheral Pulses: within normal limits - Abdominal General gastrointestinal: Present: soft, non-tender, non-distended, normal bowel sounds Female genitourinary: Present: normal - Integumentary Integumentary: Present: clear, warm, dry - Musculoskeletal Musculoskeletal: gait normal, strength equal bilaterally - Psychiatric Psychiatric: appropriate mood/affect, intact judgment & insight - Neurologic Neurologic: CNII-XII intact, moves all extremities - Allied Health Allied health notes reviewed: nursing, case management SEAN score - Sean Score Age > 65: (1) Yes Aspirin use within the Past 7 Days: (1) Yes 3 or more CAD Risk Factors: (1) Yes 2 or more Angina events in past 24 hrs: (1) Yes Known CAD with more than 50% Stenosis: (0) No Elevated Cardiac Markers: (0) No ST Deviation Greater than 0.5mm: (0) No SEAN Score: 4 Results - Labs CBC & Chem 7: 01/09/20 12:55 01/09/20 12:55 Labs: Laboratory Last Values WBC 4.4 K/mm3 (4.5-11.0) L 01/09/20 12:55 RBC 3.44 M/mm3 (3.65-5.03) L 01/09/20 12:55 Hgb 10.4 gm/dl (10.1-14.3) 01/09/20 12:55 Hct 31.9 % (30.3-42.9) 01/09/20 12:55 MCV 93 fl (79-97) 01/09/20 12:55 MCH 30 pg (28-32) 01/09/20 12:55 MCHC 33 % (30-34) 01/09/20 12:55 RDW 17.0 % (13.2-15.2) H 01/09/20 12:55 Plt Count 281 K/mm3 (140-440) 01/09/20 12:55 Lymph % (Auto) 6.8 % (13.4-35.0) L 01/09/20 12:55 [place] % (Auto) 13.6 % (0.0-7.3) H 01/09/20 12:55 Eos % (Auto) 0.0 % (0.0-4.3) 01/09/20 12:55 Baso % (Auto) 0.6 % (0.0-1.8) 01/09/20 12:55 Lymph # 0.3 K/mm3 (1.2-5.4) L 01/09/20 12:55 [place] # 0.6 K/mm3 (0.0-0.8) 01/09/20 12:55 Eos # 0.0 K/mm3 (0.0-0.4) 01/09/20 12:55 Baso # 0.0 K/mm3 (0.0-0.1) 01/09/20 12:55 Seg Neutrophils % 79.0 % (40.0-70.0) H 01/09/20 12:55 Seg Neutrophils # 3.4 K/mm3 (1.8-7.7) 01/09/20 12:55 PT 15.6 Sec. (12.2-14.9) H 01/09/20 12:55 INR 1.22 (0.87-1.13) H 01/09/20 12:55 APTT 31.5 Sec. (24.2-36.6) 01/09/20 12:55 Sodium 130 mmol/L (137-145) L 01/09/20 12:55 Potassium 4.3 mmol/L (3.6-5.0) 01/09/20 12:55 Chloride 88.9 mmol/L (98-107) L 01/09/20 12:55 Carbon Dioxide 20 mmol/L (22-30) L 01/09/20 12:55 Anion Gap 25 mmol/L 01/09/20 12:55 BUN 41 mg/dL (7-17) H 01/09/20 12:55 Creatinine 7.6 mg/dL (0.7-1.2) H 01/09/20 12:55 Estimated GFR 6 ml/min 01/09/20 12:55 BUN/Creatinine Ratio 5 % 01/09/20 12:55 Glucose 115 mg/dL (65-100) H 01/09/20 12:55 Calcium 8.7 mg/dL (8.4-10.2) 01/09/20 12:55 Total Bilirubin 0.30 mg/dL (0.1-1.2) 01/09/20 12:55 AST 24 units/L (5-40) 01/09/20 12:55 ALT 26 units/L (7-56) 01/09/20 12:55 Alkaline Phosphatase 153 units/L (35-129) H 01/09/20 12:55 Troponin T 0.382 ng/mL (0.00-0.029) H* 01/09/20 12:55 NT-Pro-B Natriuret Pep 18103 pg/mL (0-900) H 01/09/20 12:55 Total Protein 6.4 g/dL (6.3-8.2) 01/09/20 12:55 Albumin 3.2 g/dL (3.9-5) L 01/09/20 12:55 Albumin/Globulin Ratio 1.0 % 01/09/20 12:55 Triglycerides 82 mg/dL (2-149) 01/09/20 12:55 Cholesterol 123 mg/dL (50-199) 01/09/20 12:55 LDL Cholesterol Direct 66 mg/dL (50-130) 01/09/20 12:55 HDL Cholesterol 47 mg/dL (40-59) 01/09/20 12:55 Cholesterol/HDL Ratio 2.61 % 01/09/20 12:55 Short CBC 01/09/20 Range/Units 12:55 WBC 4.4 L (4.5-11.0) K/mm3 Hgb 10.4 (10.1-14.3) gm/dl Hct 31.9 (30.3-42.9) % Plt Count 281 (140-440) K/mm3 BMP 01/09/20 12:55 Sodium 130 L Potassium 4.3 Chloride 88.9 L Carbon Dioxide 20 L BUN 41 H Creatinine 7.6 H Glucose 115 H Calcium 8.7 Cardiac Enzymes 01/09/20 01/09/20 Range/Units 12:55 20:14 Troponin T 0.382 H* 0.349 H* (0.00-0.029) ng/mL Liver Function 01/09/20 Range/Units 12:55 Total Bilirubin 0.30 (0.1-1.2) mg/dL AST 24 (5-40) units/L ALT 26 (7-56) units/L Alkaline Phosphatase 153 H (35-129) units/L Albumin 3.2 L (3.9-5) g/dL - Imaging and Cardiology EKG: report reviewed (Normal sinus rhythm heart rate of 72/min) Chest x-ray: report reviewed (No acute findings) Pleitez/IV: IV Catheter Type [Left INT / Saline Lock External Jugular] Assessment and Plan Advance Directives: Yes (Full code) VTE prophylaxis?: Chemical Plan of care discussed with patient/family: Yes - Patient Problems (1) Chest pain Current Visit: Yes Status: Acute Plan to address problem: Serial troponins Lexiscan in the morning GERD and costochondritis in differential diagnosis (2) Volume overload Current Visit: Yes Status: Acute Qualifiers: Plan to address problem: Needs hemodialysis Nephrology consulted (3) CHF exacerbation Current Visit: Yes Status: Acute Qualifiers: Heart failure type: combined systolic and diastolic Qualified Code(s): I50.43 - Acute on chronic combined systolic (congestive) and diastolic (congestive) heart failure Plan to address problem: Secondary to volume overload Please increase ultrafiltration (4) End stage renal disease on dialysis Current Visit: No Status: Chronic (5) T2DM (type 2 diabetes mellitus) Current Visit: Yes Status: Acute Qualifiers: 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 insulin use status Plan to address problem: Continue continue coverage Check hemoglobin A1c (6) Hypertension Current Visit: Yes Status: Chronic Qualifiers: Hypertension type: essential hypertension Qualified Code(s): I10 - Essential (primary) hypertension Plan to address problem: Continue antihypertensives (7) Elevated troponin level Current Visit: Yes Status: Acute Plan to address problem: For Lexiscan in the morning Probable troponin leak secondary to end-stage renal disease (8) Hyponatremia Current Visit: No Status: Acute Plan to address problem: Secondary to increased volume--dilutional Needs ultrafiltration (9) DVT prophylaxis Current Visit: No Status: Acute Plan to address problem: On heparin and GI prophylaxis
[2020-01-09] MEDS ORDERED: traMADol 50 MG TAB PO PRN (16:15)
[2020-01-09] MEDS ORDERED: NON-FORMULARY EACH (Cyclobenzaprine Hcl [Flexeril 5 Mg Tab] 5 MG) PO PRN (16:15)
[2020-01-09] MEDS ORDERED: ACETAMINOPHEN 650 MG PO PRN (16:15)
[2020-01-09] MEDS ORDERED: CYCLOBENZAPRINE 10 MG TAB PO PRN (16:27)
[2020-01-09] MEDS ORDERED: ACETAMINOPHEN 325 MG TAB PO PRN (16:28)
[2020-01-09] MEDS ORDERED: VALSARTAN 80 MG PO SCH (16:30)
[2020-01-09] MEDS ORDERED: amLODIPine 10 MG TAB ONE (16:57)
[2020-01-09] MEDS ORDERED: DULoxetine 30 MG CAP ONE (16:58)
[2020-01-09] MEDS ORDERED: HYDROcodone/ACETAMINOPHEN 5-325 MG TAB ONE (17:01)
[2020-01-09] MEDS: amLODIPine 10 MG TAB PO SCH (17:09)
[2020-01-09] MEDS: DULoxetine 30 MG CAP PO SCH (17:10)
[2020-01-09] MEDS: oxyCODONE /ACETAMINOPHEN 5-325MG TAB PO PRN (17:12)
[2020-01-09] MEDS ORDERED: diphenhydrAMINE 50 MG/ML VIAL ONE (18:08)
[2020-01-09] MEDS: diphenhydrAMINE 25 MG CAP PO PRN ×2 (18:13→22:10)
[2020-01-09] MEDS ORDERED: diphenhydrAMINE 50 MG/ML VIAL IV ONE (18:50)
[2020-01-09] MEDS ORDERED: SODIUM CHLORIDE 0.9% 100 ML IV PRN (19:13)
[2020-01-09] MEDS: MAGNESIUM OXIDE 400 MG TAB PO SCH (21:55)
[2020-01-09] MEDS: FAMOTIDINE 20 MG TAB PO SCH (21:55)
[2020-01-10] MEDS: ACETAMINOPHEN 325 MG TAB PO PRN (06:09)
[2020-01-10 07:15] LABS: Basophils % (Auto) 0.5 % (0.0-1.8); Hematocrit 27.8 % (30.3-42.9); Hemoglobin 9.2 gm/dl (10.1-14.3); Lymphocytes # (Auto) 0.3 K/mm3 (1.2-5.4); Lymphocytes % (Auto) 8.9 % (13.4-35.0); Mean Corpuscular HGB Conc 33 % (30-34); Mean Corpuscular Volume 93 fl (79-97); Monocytes # (Auto) 0.4 K/mm3 (0.0-0.8); Monocytes % (Auto) 11.5 % (0.0-7.3); Platelet Count 206 K/mm3 (140-440); Red Cell Distribution Width 17.2 % (13.2-15.2)
[2020-01-10 07:33] LABS: Albumin 2.7 g/dL (3.9-5); Calcium 8.1 mg/dL (8.4-10.2)
[2020-01-10] MEDS ORDERED: REGADENOSON 0.4 MG/5 ML INJ IV ONE ×2 (08:35→08:49)
--- NOTE | 2020-01-10 09:34 | Consultation ---
History of Present Illness - Reason for Consult Consult date: 01/10/20 end stage renal disease - History of Present Illness 64 y/o F with h/o ESRD, well known to our outpatient HD unit at [facility], presented to the ED secondary to complaints of shortness of breath and chest discomfort. Denies missing any recent HD session, with her last session on Tuesday. She is on a TTS HD schedule as outpatient. Nephrology consulted secondary to chronic HD needs. Past History Past Medical History: dialysis, heart failure, hypertension, hyperlipidemia Past Surgical History: Other (CABG, ) Social history: no significant social history Family history: hypertension Medications and Allergies Allergies Allergy/AdvReac Type Severity Reaction Status Date / Time cheese Allergy Mild Itching Verified 12/20/19 10:19 iodine Allergy Mild Anaphylaxis Verified 12/20/19 10:16 clonidine Allergy Anaphylaxis Verified 12/19/19 04:13 shellfish derived AdvReac Angioedema Verified 12/19/19 04:13 Home Medications Medication Instructions Recorded Confirmed Last Taken Type Atorvastatin [Lipitor] 40 mg PO DAILY 11/06/19 01/04/20 01/02/20 10:00 History Acetaminophen [Acetaminophen 8 650 mg PO Q8H PRN #30 tablet.er 11/21/19 01/04/20 01/03/20 22:00 Rx Hour] Cyclobenzaprine HCl [Flexeril 5 MG 5 mg PO QHS PRN #20 tab 11/21/19 01/04/20 01/01/20 22:00 Rx TAB] HYDROcodone/APAP 5-325 [[place] 1 each PO Q6HR PRN #18 tablet 12/13/19 01/04/20 01/01/20 22:00 Rx 5-325 mg TAB] amLODIPine 10 mg PO DAILY 90 Days #90 tab 12/18/19 01/04/20 01/01/20 10:00 Rx Ibuprofen 800 mg PO TID 12/19/19 01/04/20 01/02/20 22:00 History Magnesium Oxide [Mag-Ox] 400 mg PO QDAY 12/19/19 01/04/20 01/03/20 10:00 History diphenhydrAMINE [Benadryl CAP] 25 mg PO Q8HR PRN 12/19/19 01/04/20 01/03/20 21:0 0 History labetaloL [Labetalol 100mg TAB] 100 mg PO Q8H #90 tablet 12/21/19 01/04/20 01/02/20 10:00 Rx traMADoL [Ultram 50 MG tab] 50 mg PO Q6HR PRN #20 tablet 12/29/19 01/04/20 12/31/19 10:00 Rx DULoxetine [Cymbalta] 30 mg PO QDAY #30 capsule 01/04/20 Unknown Rx Valsartan [Diovan] 80 mg PO DAILY #30 tablet 01/04/20 Unknown Rx Active Meds: Active Medications Acetaminophen (Tylenol) 650 mg PO Q4H PRN PRN Reason: Pain MILD(1-3)/Fever >100.5/MEANS Last Admin: 01/10/20 06:09 Dose: 650 mg Documented by: Acetaminophen/Hydrocodone Bitart ([place] 5/325) 1 each PO Q6HR PRN PRN Reason: PAIN Amlodipine Besylate (Amlodipine) 10 mg PO DAILY [facility] Last Admin: 01/09/20 17:09 Dose: 10 mg Documented by: Atorvastatin Calcium (Lipitor) 40 mg PO QHS [facility] Last Admin: 01/09/20 21:56 Dose: 40 mg Documented by: Cyclobenzaprine HCl (Flexeril) 5 mg PO QHS PRN PRN Reason: Muscle Spasm Diphenhydramine HCl (Benadryl) 25 mg PO Q8HR PRN PRN Reason: Itching Last Admin: 01/09/20 22:10 Dose: 25 mg Documented by: Duloxetine HCl (Cymbalta) 30 mg PO QDAY [facility] Last Admin: 01/09/20 17:10 Dose: 30 mg Documented by: Famotidine (Pepcid) 20 mg PO DAILY [facility] Last Admin: 01/09/20 21:55 Dose: 20 mg Documented by: Heparin Sodium (Porcine) (Heparin) 5,000 unit SUB-Q Q12HR [facility] Sodium Chloride (Nacl 0.9%) 100 mls @ 999 mls/hr IV SILVERIO PRN PRN Reason: Hypotension Labetalol HCl (Labetalol) 100 mg PO Q8H [facility] Last Admin: 01/10/20 02:54 Dose: 100 mg Documented by: Magnesium Oxide (Mag-Ox) 400 mg PO QDAY [facility] Last Admin: 01/09/20 21:55 Dose: 400 mg Documented by: Ondansetron HCl (Zofran) 4 mg IV Q8H PRN PRN Reason: Nausea And Vomiting Oxycodone/Acetaminophen (Percocet 5/325) 1 tab PO Q6H PRN PRN Reason: Pain, Moderate (4-6) Last Admin: 01/09/20 17:12 Dose: 1 tab Documented by: Sodium Chloride (Sodium Chloride Flush Syringe 10 Ml) 10 ml IV BID [facility] Last Admin: 01/09/20 21:56 Dose: 10 ml Documented by: Sodium Chloride (Sodium Chloride Flush Syringe 10 Ml) 10 ml IV PRN PRN PRN Reason: LINE FLUSH Tramadol HCl (Ultram) 50 mg PO Q6HR PRN PRN Reason: PAIN Valsartan (Diovan) 80 mg PO DAILY [facility] Exam - Vital Signs Vital signs: Vital Signs Temp Pulse Resp BP Pulse Ox 99.0 F 75 20 184/71 97 01/09/20 12:19 01/09/20 12:19 01/09/20 12:19 01/09/20 12:19 01/09/20 12:19 - General Appearance General appearance: well-developed, appears stated age EENT: ATNC Neck: Present: neck supple Respiratory: Wheezes Heart: regular, S1S2 Gastrointestinal: Present: normal Integumentary: no rash Neurologic: no focal deficit Musculoskeletal: Present: deferred Psychiatric: mood/affect appropriate Results - Lab Results 01/10/20 06:54 01/10/20 06:54 Most recent lab results Calcium 8.1 mg/dL (8.4-10.2) L 01/10/20 06:54 Assessment and Plan - Patient Problems (1) ESRD needing dialysis Current Visit: No Status: Acute Plan to address problem: Will continue on TTS HD schedule as inpatient. Orders placed. (2) Volume overload Current Visit: Yes Status: Acute Qualifiers: Plan to address problem: Goal is to optimize volume status with adequate fluid removal with HD. Evaluate daily for need of extra isolated UF sessions. (3) Hyponatremia Current Visit: No Status: Acute Plan to address problem: Possibly in the setting of fluid overload. Optimze volume status with adequate UF during HD. (4) Hypertensive chronic kidney disease with stage 5 chronic kidney disease or end stage renal disease Current Visit: No Status: Chronic Plan to address problem: Monitor on current regimen. (5) Anemia in CKD (chronic kidney disease) Current Visit: Yes Status: Acute Qualifiers: Chronic kidney disease stage: on chronic dialysis Qualified Code(s): N18.6 - End stage renal disease; D63.1 - Anemia in chronic kidney disease; Z99.2 - Dependence on renal dialysis Plan to address problem: CLARITA therapy with HD. (6) Secondary hyperparathyroidism (of renal origin) Current Visit: Yes Status: Chronic Plan to address problem: Continue on current outpatient phos binder regimen.
[2020-01-10] MEDS: amLODIPine 10 MG TAB PO SCH ×2 (10:00→18:15)
[2020-01-10] MEDS: MAGNESIUM OXIDE 400 MG TAB PO SCH ×2 (10:00→18:14)
[2020-01-10] MEDS: DULoxetine 30 MG CAP PO SCH ×2 (10:00→18:12)
[2020-01-10] MEDS: FAMOTIDINE 20 MG TAB PO SCH ×2 (10:00→18:14)
[2020-01-10] MEDS: VALSARTAN 40 MG TAB PO SCH (10:00)
[2020-01-10] MEDS: HEPARIN 5,000 UNIT/1 ML VIAL SUB-Q SCH ×2 (10:00→21:18)
--- NOTE | 2020-01-10 13:45 | Consultation ---
History of Present Illness Consult date: 01/10/20 Consult reason: shortness of breath History of present illness: 64y F admitted with persistent SOB and bilateral pulmonary infiltrates in CXR. She has ESRD on hemodialysis. She has CAD, and underwent 3 vessel CABG on 2011 when she lived in [place]. Most recent cardiac assessment 2 months ago with Echo: EF was normal 50-55%, with pulm HTN with PASP 55. On this presentation, there is no chest pain. She denies missing any dialysis sessions. Chest Xray shows bilateral pulmonary infiltrates R>L. ECG is NSR with no acute ST or T wave abnormalities. Today, she underwent a lexiscan thallium stress which was ordered by internal me domenica. Imgages show a normal LV size with normal EF 56%. There is a moderate-sized fixed apical defect of an old apical KS, no reversible ischemia. Past History Past Medical History: dialysis, heart failure, hypertension, hyperlipidemia Past Surgical History: Other (CABG, ) Social history: no significant social history Family history: hypertension Medications and Allergies Allergies Allergy/AdvReac Type Severity Reaction Status Date / Time cheese Allergy Mild Itching Verified 12/20/19 10:19 iodine Allergy Mild Anaphylaxis Verified 12/20/19 10:16 clonidine Allergy Anaphylaxis Verified 12/19/19 04:13 shellfish derived AdvReac Angioedema Verified 12/19/19 04:13 Home Medications Medication Instructions Recorded Confirmed Last Taken Type Atorvastatin [Lipitor] 40 mg PO DAILY 11/06/19 01/04/20 01/02/20 10:00 History Acetaminophen [Acetaminophen 8 650 mg PO Q8H PRN #30 tablet.er 11/21/19 01/04/20 01/03/20 22:00 Rx Hour] Cyclobenzaprine HCl [Flexeril 5 MG 5 mg PO QHS PRN #20 tab 11/21/19 01/04/20 01/01/20 22:00 Rx TAB] HYDROcodone/APAP 5-325 [[place] 1 each PO Q6HR PRN #18 tablet 12/13/19 01/04/20 01/01/20 22:00 Rx 5-325 mg TAB] amLODIPine 10 mg PO DAILY 90 Days #90 tab 12/18/19 01/04/20 01/01/20 10:00 Rx Ibuprofen 800 mg PO TID 12/19/19 01/04/20 01/02/20 22:00 History Magnesium Oxide [Mag-Ox] 400 mg PO QDAY 12/19/19 01/04/20 01/03/20 10:00 History diphenhydrAMINE [Benadryl CAP] 25 mg PO Q8HR PRN 12/19/19 01/04/20 01/03/20 21:00 History labetaloL [Labetalol 100mg TAB] 100 mg PO Q8H #90 tablet 12/21/19 01/04/20 01/02/20 10:00 Rx traMADoL [Ultram 50 MG tab] 50 mg PO Q6HR PRN #20 tablet 12/29/19 01/04/20 12/31/19 10:00 Rx DULoxetine [Cymbalta] 30 mg PO QDAY #30 capsule 01/04/20 Unknown Rx Valsartan [Diovan] 80 mg PO DAILY #30 tablet 01/04/20 Unknown Rx Active Meds: Active Medications Acetaminophen (Tylenol) 650 mg PO Q4H PRN PRN Reason: Pain MILD(1-3)/Fever >100.5/MEANS Last Admin: 01/10/20 06:09 Dose: 650 mg Documented by: Acetaminophen/Hydrocodone Bitart ([place] 5/325) 1 each PO Q6HR PRN PRN Reason: Pain, Moderate (4-6) Amlodipine Besylate (Amlodipine) 10 mg PO DAILY [facility] Last Admin: 01/10/20 10:00 Dose: Not Given Documented by: Atorvastatin Calcium (Lipitor) 40 mg PO QHS [facility] Last Admin: 01/09/20 21:56 Dose: 40 mg Documented by: Cyclobenzaprine HCl (Flexeril) 5 mg PO QHS PRN PRN Reason: Muscle Spasm Diphenhydramine HCl (Benadryl) 25 mg PO Q8HR PRN PRN Reason: Itching Last Admin: 01/09/20 22:10 Dose: 25 mg Documented by: Duloxetine HCl (Cymbalta) 30 mg PO QDAY [facility] Last Admin: 01/10/20 10:00 Dose: Not Given Documented by: Famotidine (Pepcid) 20 mg PO DAILY [facility] Last Admin: 01/10/20 10:00 Dose: Not Given Documented by: Heparin Sodium (Porcine) (Heparin) 5,000 unit SUB-Q Q12HR [facility] Last Admin: 01/10/20 10:00 Dose: Not Given Documented by: Sodium Chloride (Nacl 0.9%) 100 mls @ 999 mls/hr IV SILVERIO PRN PRN Reason: Hypotension Labetalol HCl (Labetalol) 100 mg PO Q8H [facility] Last Admin: 01/10/20 09:36 Dose: Not Given Documented by: Magnesium Oxide (Mag-Ox) 400 mg PO QDAY [facility] Last Admin: 01/10/20 10:00 Dose: Not Given Documented by: Ondansetron HCl (Zofran) 4 mg IV Q8H PRN PRN Reason: Nausea And Vomiting Oxycodone/Acetaminophen (Percocet 5/325) 1 tab PO Q6H PRN PRN Reason: Pain, Moderate (4-6) Last Admin: 01/09/20 17:12 Dose: 1 tab Documented by: Sodium Chloride (Sodium Chloride Flush Syringe 10 Ml) 10 ml IV BID [facility] Last Admin: 01/09/20 21:56 Dose: 10 ml Documented by: Sodium Chloride (Sodium Chloride Flush Syringe 10 Ml) 10 ml IV PRN PRN PRN Reason: LINE FLUSH Tramadol HCl (Ultram) 50 mg PO Q6HR PRN PRN Reason: Pain, Moderate (4-6) Valsartan (Diovan) 80 mg PO DAILY [facility] Last Admin: 01/10/20 10:00 Dose: Not Given Documented by: Review of Systems Cardiovascular: edema, shortness of breath, no chest pain, no orthopnea, no palpitations, no rapid/irregular heart beat, no syncope, no lightheadedness Physical Examination Vital Signs Temp Pulse Resp BP Pulse Ox 99.0 F 75 20 184/71 97 01/09/20 12:19 01/09/20 12:19 01/09/20 12:19 01/09/20 12:19 01/09/20 12:19 General appearance: no acute distress HEENT: Positive: PERRL Neck: Positive: neck supple Lungs: Positive: Decreased Breath Sounds Neuro: Positive: Grossly Intact Abdomen: Positive: Soft Female genitourinary: deferred Skin: Positive: Clear Extremities: Present: edema (trace) Results 01/10/20 06:54 01/10/20 06:54 Cardiac Enzymes 01/09/20 01/10/20 Range/Units 12:55 06:54 AST 24 30 (5-40) units/L Lipids 01/09/20 Range/Units 12:55 Triglycerides 82 (2-149) mg/dL Cholesterol 123 (50-199) mg/dL HDL Cholesterol 47 (40-59) mg/dL Cholesterol/HDL Ratio 2.61 % CBC 01/10/20 Range/Units 06:54 WBC 3.3 L (4.5-11.0) K/mm3 RBC 3.00 L (3.65-5.03) M/mm3 Hgb 9.2 L (10.1-14.3) gm/dl Hct 27.8 L (30.3-42.9) % Plt Count 206 (140-440) K/mm3 Lymph # 0.3 L (1.2-5.4) K/mm3 [place] # 0.4 (0.0-0.8) K/mm3 Eos # 0.0 (0.0-0.4) K/mm3 Baso # 0.0 (0.0-0.1) K/mm3 Comprehensive Metabolic Panel 01/09/20 01/10/20 Range/Units 12:55 06:54 Sodium 130 L 133 L (137-145) mmol/L Potassium 4.3 4.8 (3.6-5.0) mmol/L Chloride 88.9 L 90.6 L (98-107) mmol/L Carbon Dioxide 20 L 22 (22-30) mmol/L BUN 41 H 50 H (7-17) mg/dL Creatinine 7.6 H 8.4 H (0.7-1.2) mg/dL Glucose 115 H 101 H (65-100) mg/dL Calcium 8.7 8.1 L (8.4-10.2) mg/dL AST 24 30 (5-40) units/L ALT 26 24 (7-56) units/L Alkaline Phosphatase 153 H 148 H (35-129) units/L Total Protein 6.4 5.4 L (6.3-8.2) g/dL Albumin 3.2 L 2.7 L (3.9-5) g/dL EKG interpretations - Telemetry EKG Rhythm: Sinus Rhythm Assessment and Plan - Patient Problems (1) Bilateral pulmonary infiltrates on chest x-ray Current Visit: Yes Status: Acute Plan to address problem: Patient presents with cough/SOB and bilateral pulm infiltrates on CXR. She is on adequate hemodialysis for fluid management. Lexiscan shows a fixed apical defect of old KS. EF is 50-55%. Recommend further evaluation for atypical pneumonia INCLUDING COVID-19 infection. No further cardiac workup indicated. We will follow intermittently.
--- NOTE | 2020-01-10 14:22 | Progress Note ---
Assessment and Plan Assessment and plan: Chest pain Stress test neg for ischemia GERD and costochondritis in differential diagnosis Volume overload s/p hemodialysis yesterday Nephrology consulted,following Chronic diastolic CHF exacerbation Secondary to volume overload End stage renal disease on dialysis Nephrology following T2DM (type 2 diabetes mellitus) Continue continue coverage Check hemoglobin A1c Hypertension Continue antihypertensives Hyponatremia Secondary to increased volume--dilutional Needs ultrafiltration DVT prophylaxis On heparin and GI prophylaxis Fever to r/o Covid- 19 Will fill Covid 19 survey testing History Interval history: Patient presented with chest tightness Now fever Hospitalist Physical - Physical exam Narrative exam: GEN: Not in acute distress, lying in bed,obese HEENT: Normocephalic, atraumatic, Neck: supple, No JVD Lungs: Clear, no crackles, heart;S1 and S2 reg, no murmurs, rubs or gallop Abd:soft, non tender, non distended, normal bowel sounds Ext: No edema, no clubbing, no cyanosis, Neuro: Awake,alert, has dementia - Constitutional Vitals: Temp Pulse Resp BP Pulse Ox 98.3 F 72 16 166/75 92 01/10/20 10:50 01/10/20 13:45 01/10/20 10:50 01/10/20 13:45 01/10/20 05:58 General appearance: Present: no acute distress SEAN score - Sean Score Age > 65: (1) Yes Aspirin use within the Past 7 Days: (1) Yes 3 or more CAD Risk Factors: (1) Yes 2 or more Angina events in past 24 hrs: (1) Yes Known CAD with more than 50% Stenosis: (0) No Elevated Cardiac Markers: (0) No ST Deviation Greater than 0.5mm: (0) No SEAN Score: 4 Results - Labs CBC & Chem 7: 01/10/20 06:54 01/10/20 06:54 Labs: Laboratory Last Values WBC 3.3 K/mm3 (4.5-11.0) L 01/10/20 06:54 RBC 3.00 M/mm3 (3.65-5.03) L 01/10/20 06:54 Hgb 9.2 gm/dl (10.1-14.3) L 01/10/20 06:54 Hct 27.8 % (30.3-42.9) L 01/10/20 06:54 MCV 93 fl (79-97) 01/10/20 06:54 MCH 31 pg (28-32) 01/10/20 06:54 MCHC 33 % (30-34) 01/10/20 06:54 RDW 17.2 % (13.2-15.2) H 01/10/20 06:54 Plt Count 206 K/mm3 (140-440) 01/10/20 06:54 Lymph % (Auto) 8.9 % (13.4-35.0) L 01/10/20 06:54 [place] % (Auto) 11.5 % (0.0-7.3) H 01/10/20 06:54 Eos % (Auto) 0.0 % (0.0-4.3) 01/10/20 06:54 Baso % (Auto) 0.5 % (0.0-1.8) 01/10/20 06:54 Lymph # 0.3 K/mm3 (1.2-5.4) L 01/10/20 06:54 [place] # 0.4 K/mm3 (0.0-0.8) 01/10/20 06:54 Eos # 0.0 K/mm3 (0.0-0.4) 01/10/20 06:54 Baso # 0.0 K/mm3 (0.0-0.1) 01/10/20 06:54 Seg Neutrophils % 79.1 % (40.0-70.0) H 01/10/20 06:54 Seg Neutrophils # 2.6 K/mm3 (1.8-7.7) 01/10/20 06:54 PT 15.6 Sec. (12.2-14.9) H 01/09/20 12:55 INR 1.22 (0.87-1.13) H 01/09/20 12:55 APTT 31.5 Sec. (24.2-36.6) 01/09/20 12:55 Sodium 133 mmol/L (137-145) L 01/10/20 06:54 Potassium 4.8 mmol/L (3.6-5.0) 01/10/20 06:54 Chloride 90.6 mmol/L (98-107) L 01/10/20 06:54 Carbon Dioxide 22 mmol/L (22-30) 01/10/20 06:54 Anion Gap 25 mmol/L 01/10/20 06:54 BUN 50 mg/dL (7-17) H 01/10/20 06:54 Creatinine 8.4 mg/dL (0.7-1.2) H 01/10/20 06:54 Estimated GFR 6 ml/min 01/10/20 06:54 BUN/Creatinine Ratio 6 % 01/10/20 06:54 Glucose 101 mg/dL (65-100) H 01/10/20 06:54 POC Glucose 76 (70-105) 01/09/20 21:13 Hemoglobin A1c 5.0 % (4-6) 01/10/20 06:54 Calcium 8.1 mg/dL (8.4-10.2) L 01/10/20 06:54 Total Bilirubin 0.30 mg/dL (0.1-1.2) 01/10/20 06:54 AST 30 units/L (5-40) 01/10/20 06:54 ALT 24 units/L (7-56) 01/10/20 06:54 Alkaline Phosphatase 148 units/L (35-129) H 01/10/20 06:54 Troponin T 0.315 ng/mL (0.00-0.029) H* 01/10/20 06:54 NT-Pro-B Natriuret Pep 73289 pg/mL (0-900) H 01/09/20 12:55 Total Protein 5.4 g/dL (6.3-8.2) L 01/10/20 06:54 Albumin 2.7 g/dL (3.9-5) L 01/10/20 06:54 Albumin/Globulin Ratio 1.0 % 01/10/20 06:54 Triglycerides 82 mg/dL (2-149) 01/09/20 12:55 Cholesterol 123 mg/dL (50-199) 01/09/20 12:55 LDL Cholesterol Direct 66 mg/dL (50-130) 01/09/20 12:55 HDL Cholesterol 47 mg/dL (40-59) 01/09/20 12:55 Cholesterol/HDL Ratio 2.61 % 01/09/20 12:55 Pleitez/IV: Voiding Method Toilet IV Catheter Type [Left INT / Saline Lock External Jugular] Active Medications - Current Medications Current Medications: Generic Name Dose Route Start Last Admin Trade Name Freq PRN Reason Stop Dose Admin Acetaminophen 650 mg 01/09/20 16:33 01/10/20 06:09 Tylenol PO 650 mg Q4H PRN Administration Pain MILD(1-3)/Fever >100.5/MEANS Acetaminophen/Hydrocodone Bitart 1 each 01/09/20 16:15 [place] 5/325 PO Q6HR PRN Pain, Moderate (4-6) Amlodipine Besylate 10 mg 01/09/20 17:00 01/10/20 10:00 Amlodipine PO Not Given DAILY [facility] Atorvastatin Calcium 40 mg 01/09/20 22:00 01/09/20 21:56 Lipitor PO 40 mg QHS PHILLY Administration Cyclobenzaprine HCl 5 mg 01/09/20 16:27 Flexeril PO QHS PRN Muscle Spasm Diphenhydramine HCl 25 mg 01/09/20 16:15 01/09/20 22:10 Benadryl PO 25 mg Q8HR PRN Administration Itching Duloxetine HCl 30 mg 01/09/20 17:00 01/10/20 10:00 Cymbalta PO Not Given QDAY [facility] Famotidine 20 mg 01/09/20 22:00 01/10/20 10:00 Pepcid PO Not Given DAILY [facility] Heparin Sodium (Porcine) 5,000 unit 01/10/20 10:00 01/10/20 10:00 Heparin SUB-Q Not Given Q12HR [facility] Sodium Chloride 100 mls @ 999 mls/hr 01/09/20 19:13 Nacl 0.9% IV SILVERIO PRN Hypotension Labetalol HCl 100 mg 01/09/20 17:00 01/10/20 09:36 Labetalol PO Not Given Q8H [facility] Magnesium Oxide 400 mg 01/09/20 17:00 01/10/20 10:00 Mag-Ox PO Not Given QDAY [facility] Ondansetron HCl 4 mg 01/09/20 16:33 Zofran IV Q8H PRN Nausea And Vomiting Oxycodone/Acetaminophen 1 tab 01/09/20 16:43 01/09/20 17:12 Percocet 5/325 PO 1 tab Q6H PRN Administration Pain, Moderate (4-6) Sodium Chloride 10 ml 01/09/20 22:00 01/09/20 21:56 Sodium Chloride Flush Syringe 10 Ml IV 10 ml BID PHILLY Administration Sodium Chloride 10 ml 01/09/20 16:33 Sodium Chloride Flush Syringe 10 Ml IV PRN PRN LINE FLUSH Tramadol HCl 50 mg 01/09/20 16:15 Ultram PO Q6HR PRN Pain, Moderate (4-6) Valsartan 80 mg 01/10/20 10:00 01/10/20 10:00 Diovan PO Not Given DAILY [facility]
--- NOTE | 2020-01-10 14:23 | Event Note ---
Date: 01/10/20 Informed by Nurse that cardiology wants COVID-19 ruled out. Will start contact precautions, droplet precautions.
--- NOTE | 2020-01-10 15:04 | Treadmill Report ---
THALLIUM STRESS TEST LEFT VENTRICLE: Left ventricle is within normal limits in size. Perfusion study demonstrates a moderate sized, fixed apical defect with no reversibility on the resting study. Gated analysis demonstrates well preserved overall left ventricular systolic function with ejection fraction 56%. CONCLUSION: Fixed apical defect consistent with a prior apical myocardial infarction. There is no reversible periinfarct ischemia. Clinical correlation is recommended. JOB# [id number] CA/NTS
[2020-01-10] MEDS: HYDROcodone/ACETAMINOPHEN 5-325 MG TAB PO PRN (18:14)
[2020-01-11] MEDS: HYDROcodone/ACETAMINOPHEN 5-325 MG TAB PO PRN ×2 (01:30→21:04)
[2020-01-11] MEDS: ACETAMINOPHEN 325 MG TAB PO PRN ×2 (01:31→23:43)
--- NOTE | 2020-01-11 08:18 | Event Note ---
Date: 01/11/20 Covid survey form filled and sent to [facility] yesterday.
--- NOTE | 2020-01-11 11:09 | Progress Note ---
Assessment and Plan - Patient Problems (1) ESRD needing dialysis Current Visit: No Status: Acute Plan to address problem: Will continue on TTS HD schedule as inpatient. Orders placed. (2) Volume overload Current Visit: Yes Status: Acute Qualifiers: Plan to address problem: Goal is to optimize volume status with adequate fluid removal with HD. Evaluate daily for need of extra isolated UF sessions. No acute HD needs today. (3) Hyponatremia Current Visit: No Status: Acute Plan to address problem: Possibly in the setting of fluid overload. Optimze volume status with adequate UF during HD. (4) Hypertensive chronic kidney disease with stage 5 chronic kidney disease or end stage renal disease Current Visit: No Status: Chronic Plan to address problem: Monitor on current regimen. (5) Anemia in CKD (chronic kidney disease) Current Visit: Yes Status: Acute Qualifiers: Chronic kidney disease stage: on chronic dialysis Qualified Code(s): N18.6 - End stage renal disease; D63.1 - Anemia in chronic kidney disease; Z99.2 - Dependence on renal dialysis Plan to address problem: CLARITA therapy with HD. (6) Secondary hyperparathyroidism (of renal origin) Current Visit: Yes Status: Chronic Plan to address problem: Continue on current outpatient phos binder regimen. Subjective Date of service: 01/11/20 Interval history: Patient is being ruled out for COVID-19 at this time based on chest xray findings. Objective - Vital Signs Vital signs: Vital Signs - 12hr 01/11/20 01/11/20 01/11/20 01:00 01:24 01:25 Temperature 100.6 F H Pulse Rate 75 84 Respiratory 20 Rate Blood Pressure 156/55 O2 Sat by Pulse 95 Oximetry 01/11/20 01/11/20 02:28 05:52 Temperature 99.5 F 98.2 F Pulse Rate 67 Respiratory 20 Rate Blood Pressure 150/61 O2 Sat by Pulse 87 Oximetry - General Appearance General appearance: appears stated age EENT: ATNC Neck: no JVD Respiratory: Present: Wheezes Cardiology: regular Gastrointestinal: normal Integumentary: no rash Neurologic: no focal deficit Musculoskeletal: deferred Psychiatric: cooperative - Lab 01/10/20 06:54 01/10/20 06:54 Most recent lab results Calcium 8.1 mg/dL (8.4-10.2) L 01/10/20 06:54 - Allied health notes Allied health notes reviewed: nursing Medications & Allergies - Medications Allergies/Adverse Reactions: Allergies cheese Allergy (Mild, Verified 12/20/19 10:19) Itching iodine Allergy (Mild, Verified 12/20/19 10:16) Anaphylaxis clonidine Allergy (Verified 12/19/19 04:13) Anaphylaxis shellfish derived Adverse Reaction (Verified 12/19/19 04:13) Angioedema Home Medications: Home Medications Medication Instructions Recorded Confirmed Last Taken Type Atorvastatin [Lipitor] 40 mg PO DAILY 11/06/19 01/04/20 01/02/20 10:00 History Acetaminophen [Acetaminophen 8 650 mg PO Q8H PRN #30 tablet.er 11/21/19 01/04/20 01/03/20 22:00 Rx Hour] Cyclobenzaprine HCl [Flexeril 5 MG 5 mg PO QHS PRN #20 tab 11/21/19 01/04/20 01/01/20 22:00 Rx TAB] HYDROcodone/APAP 5-325 [[place] 1 each PO Q6HR PRN #18 tablet 12/13/19 01/04/20 01/01/20 22:00 Rx 5-325 mg TAB] amLODIPine 10 mg PO DAILY 90 Days #90 tab 12/18/19 01/04/20 01/01/20 10:00 Rx Ibuprofen 800 mg PO TID 12/19/19 01/04/20 01/02/20 22:00 History Magnesium Oxide [Mag-Ox] 400 mg PO QDAY 12/19/19 01/04/20 01/03/20 10:00 History diphenhydrAMINE [Benadryl CAP] 25 mg PO Q8HR PRN 12/19/19 01/04/20 01/03/20 21:00 History labetaloL [Labetalol 100mg TAB] 100 mg PO Q8H #90 tablet 12/21/19 01/04/20 01/02/20 10:00 Rx traMADoL [Ultram 50 MG tab] 50 mg PO Q6HR PRN #20 tablet 12/29/19 01/04/20 12/31/19 10:00 Rx DULoxetine [Cymbalta] 30 mg PO QDAY #30 capsule 01/04/20 Unknown Rx Valsartan [Diovan] 80 mg PO DAILY #30 tablet 01/04/20 Unknown Rx Active Medications: Generic Name Dose Route Start Last Admin Trade Name Freq PRN Reason Stop Dose Admin Acetaminophen 650 mg 01/09/20 16:33 01/11/20 01:31 Tylenol PO 650 mg Q4H PRN Administration Pain MILD(1-3)/Fever >100.5/MEANS Acetaminophen/Hydrocodone Bitart 1 each 01/09/20 16:15 01/11/20 01:30 [place] 5/325 PO 1 each Q6HR PRN Administration Pain, Moderate (4-6) Amlodipine Besylate 10 mg 01/09/20 17:00 01/10/20 18:15 Amlodipine PO 10 mg DAILY [facility] Administration Atorvastatin Calcium 40 mg 01/09/20 22:00 01/10/20 21:18 Lipitor PO 40 mg QHS PHILLY Administration Cyclobenzaprine HCl 5 mg 01/09/20 16:27 01/10/20 23:17 Flexeril PO 5 mg QHS PRN Administration Muscle Spasm Diphenhydramine HCl 25 mg 01/09/20 16:15 01/09/20 22:10 Benadryl PO 25 mg Q8HR PRN Administration Itching Duloxetine HCl 30 mg 01/09/20 17:00 01/10/20 18:12 Cymbalta PO 30 mg QDAY [facility] Administration Famotidine 20 mg 01/09/20 22:00 01/10/20 18:14 Pepcid PO 20 mg DAILY [facility] Administration Heparin Sodium (Porcine) 5,000 unit 01/10/20 10:00 01/10/20 21:18 Heparin SUB-Q 5,000 unit Q12HR [facility] Administration Sodium Chloride 100 mls @ 999 mls/hr 01/09/20 19:13 Nacl 0.9% IV SILVERIO PRN Hypotension Labetalol HCl 100 mg 01/09/20 17:00 01/11/20 01:31 Labetalol PO 100 mg Q8H [facility]Y Administration Magnesium Oxide 400 mg 01/09/20 17:00 01/10/20 18:14 Mag-Ox PO 400 mg QDAY [facility] Administration Ondansetron HCl 4 mg 01/09/20 16:33 Zofran IV Q8H PRN Nausea And Vomiting Oxycodone/Acetaminophen 1 tab 01/09/20 16:43 01/09/20 17:12 Percocet 5/325 PO 1 tab Q6H PRN Administration Pain, Moderate (4-6) Sodium Chloride 10 ml 01/09/20 22:00 01/11/20 01:38 Sodium Chloride Flush Syringe 10 Ml IV 10 ml BID PHILLY Administration Sodium Chloride 10 ml 01/09/20 16:33 Sodium Chloride Flush Syringe 10 Ml IV PRN PRN LINE FLUSH Tramadol HCl 50 mg 01/09/20 16:15 Ultram PO Q6HR PRN Pain, Moderate (4-6) Valsartan 80 mg 01/10/20 10:00 01/10/20 10:00 Diovan PO Not Given DAILY [facility]
[2020-01-11] MEDS: amLODIPine 10 MG TAB PO SCH (11:50)
[2020-01-11] MEDS: DULoxetine 30 MG CAP PO SCH (11:51)
[2020-01-11] MEDS: FAMOTIDINE 20 MG TAB PO SCH (11:51)
[2020-01-11] MEDS: HEPARIN 5,000 UNIT/1 ML VIAL SUB-Q SCH ×2 (11:52→21:04)
[2020-01-11] MEDS: MAGNESIUM OXIDE 400 MG TAB PO SCH (11:52)
--- NOTE | 2020-01-11 15:30 | Progress Note ---
Assessment and Plan Assessment and plan: Chest pain Stress test neg for ischemia GERD and costochondritis in differential diagnosis Volume overload s/p hemodialysis yesterday Nephrology consulted,following Chronic diastolic CHF exacerbation Secondary to volume overload End stage renal disease on dialysis Nephrology following T2DM (type 2 diabetes mellitus) Continue continue coverage Check hemoglobin A1c Hypertension Continue antihypertensives Hyponatremia Secondary to increased volume--dilutional Needs ultrafiltration DVT prophylaxis On heparin and GI prophylaxis Fever to r/o Covid- 19 Will fill Covid 19 survey testing History Interval history: Patient presented with chest tightness Now fever Hospitalist Physical - Physical exam Narrative exam: GEN: Not in acute distress, lying in bed,obese HEENT: Normocephalic, atraumatic, Neck: supple, No JVD Lungs: Clear, no crackles, heart;S1 and S2 reg, no murmurs, rubs or gallop Abd:soft, non tender, non distended, normal bowel sounds Ext: No edema, no clubbing, no cyanosis, Neuro: Awake,alert, has dementia - Constitutional Vitals: Temp Pulse Resp BP Pulse Ox 99.2 F 69 19 158/67 91 01/11/20 11:27 01/11/20 12:03 01/11/20 11:27 01/11/20 12:03 01/11/20 11:27 General appearance: Present: no acute distress SEAN score - Sean Score Age > 65: (1) Yes Aspirin use within the Past 7 Days: (1) Yes 3 or more CAD Risk Factors: (1) Yes 2 or more Angina events in past 24 hrs: (1) Yes Known CAD with more than 50% Stenosis: (0) No Elevated Cardiac Markers: (0) No ST Deviation Greater than 0.5mm: (0) No SEAN Score: 4 Results - Labs CBC & Chem 7: 01/10/20 06:54 01/10/20 06:54 Labs: Laboratory Last Values WBC 3.3 K/mm3 (4.5-11.0) L 01/10/20 06:54 RBC 3.00 M/mm3 (3.65-5.03) L 01/10/20 06:54 Hgb 9.2 gm/dl (10.1-14.3) L 01/10/20 06:54 Hct 27.8 % (30.3-42.9) L 01/10/20 06:54 MCV 93 fl (79-97) 01/10/20 06:54 MCH 31 pg (28-32) 01/10/20 06:54 MCHC 33 % (30-34) 01/10/20 06:54 RDW 17.2 % (13.2-15.2) H 01/10/20 06:54 Plt Count 206 K/mm3 (140-440) 01/10/20 06:54 Lymph % (Auto) 8.9 % (13.4-35.0) L 01/10/20 06:54 [place] % (Auto) 11.5 % (0.0-7.3) H 01/10/20 06:54 Eos % (Auto) 0.0 % (0.0-4.3) 01/10/20 06:54 Baso % (Auto) 0.5 % (0.0-1.8) 01/10/20 06:54 Lymph # 0.3 K/mm3 (1.2-5.4) L 01/10/20 06:54 [place] # 0.4 K/mm3 (0.0-0.8) 01/10/20 06:54 Eos # 0.0 K/mm3 (0.0-0.4) 01/10/20 06:54 Baso # 0.0 K/mm3 (0.0-0.1) 01/10/20 06:54 Seg Neutrophils % 79.1 % (40.0-70.0) H 01/10/20 06:54 Seg Neutrophils # 2.6 K/mm3 (1.8-7.7) 01/10/20 06:54 PT 15.6 Sec. (12.2-14.9) H 01/09/20 12:55 INR 1.22 (0.87-1.13) H 01/09/20 12:55 APTT 31.5 Sec. (24.2-36.6) 01/09/20 12:55 Sodium 133 mmol/L (137-145) L 01/10/20 06:54 Potassium 4.8 mmol/L (3.6-5.0) 01/10/20 06:54 Chloride 90.6 mmol/L (98-107) L 01/10/20 06:54 Carbon Dioxide 22 mmol/L (22-30) 01/10/20 06:54 Anion Gap 25 mmol/L 01/10/20 06:54 BUN 50 mg/dL (7-17) H 01/10/20 06:54 Creatinine 8.4 mg/dL (0.7-1.2) H 01/10/20 06:54 Estimated GFR 6 ml/min 01/10/20 06:54 BUN/Creatinine Ratio 6 % 01/10/20 06:54 Glucose 101 mg/dL (65-100) H 01/10/20 06:54 POC Glucose 97 (70-105) 01/10/20 16:54 Hemoglobin A1c 5.0 % (4-6) 01/10/20 06:54 Calcium 8.1 mg/dL (8.4-10.2) L 01/10/20 06:54 Total Bilirubin 0.30 mg/dL (0.1-1.2) 01/10/20 06:54 AST 30 units/L (5-40) 01/10/20 06:54 ALT 24 units/L (7-56) 01/10/20 06:54 Alkaline Phosphatase 148 units/L (35-129) H 01/10/20 06:54 Troponin T 0.315 ng/mL (0.00-0.029) H* 01/10/20 06:54 NT-Pro-B Natriuret Pep 37505 pg/mL (0-900) H 01/09/20 12:55 Total Protein 5.4 g/dL (6.3-8.2) L 01/10/20 06:54 Albumin 2.7 g/dL (3.9-5) L 01/10/20 06:54 Albumin/Globulin Ratio 1.0 % 01/10/20 06:54 Triglycerides 82 mg/dL (2-149) 01/09/20 12:55 Cholesterol 123 mg/dL (50-199) 01/09/20 12:55 LDL Cholesterol Direct 66 mg/dL (50-130) 01/09/20 12:55 HDL Cholesterol 47 mg/dL (40-59) 01/09/20 12:55 Cholesterol/HDL Ratio 2.61 % 01/09/20 12:55 Microbiology: Microbiology 01/10/20 19:55 Peripheral/Venous Blood Culture - Preliminary Culture in Progress 01/10/20 19:55 Peripheral/Venous Blood Culture - Preliminary Culture in Progress Pleitez/IV: Voiding Method Toilet IV Catheter Type [Left INT / Saline Lock External Jugular] Active Medications - Current Medications Current Medications: Generic Name Dose Route Start Last Admin Trade Name Freq PRN Reason Stop Dose Admin Acetaminophen 650 mg 01/09/20 16:33 01/11/20 01:31 Tylenol PO 650 mg Q4H PRN Administration Pain MILD(1-3)/Fever >100.5/MEANS Acetaminophen/Hydrocodone Bitart 1 each 01/09/20 16:15 01/11/20 01:30 [place] 5/325 PO 1 each Q6HR PRN Administration Pain, Moderate (4-6) Amlodipine Besylate 10 mg 01/09/20 17:00 01/11/20 11:50 Amlodipine PO 10 mg DAILY [facility] Administration Atorvastatin Calcium 40 mg 01/09/20 22:00 01/10/20 21:18 Lipitor PO 40 mg QHS PHILLY Administration Cyclobenzaprine HCl 5 mg 01/09/20 16:27 01/10/20 23:17 Flexeril PO 5 mg QHS PRN Administration Muscle Spasm Diphenhydramine HCl 25 mg 01/09/20 16:15 01/09/20 22:10 Benadryl PO 25 mg Q8HR PRN Administration Itching Duloxetine HCl 30 mg 01/09/20 17:00 01/11/20 11:51 Cymbalta PO 30 mg QDAY [facility] Administration Famotidine 20 mg 01/09/20 22:00 01/11/20 11:51 Pepcid PO 20 mg DAILY [facility] Administration Heparin Sodium (Porcine) 5,000 unit 01/10/20 10:00 01/11/20 11:52 Heparin SUB-Q 5,000 unit Q12HR [facility] Administration Sodium Chloride 100 mls @ 999 mls/hr 01/09/20 19:13 Nacl 0.9% IV SILVERIO PRN Hypotension Labetalol HCl 100 mg 01/09/20 17:00 01/11/20 12:03 Labetalol PO 100 mg Q8H [facility]ILLY Administration Magnesium Oxide 400 mg 01/09/20 17:00 01/11/20 11:52 Mag-Ox PO 400 mg QDAY [facility] Administration Ondansetron HCl 4 mg 01/09/20 16:33 Zofran IV Q8H PRN Nausea And Vomiting Oxycodone/Acetaminophen 1 tab 01/09/20 16:43 01/09/20 17:12 Percocet 5/325 PO 1 tab Q6H PRN Administration Pain, Moderate (4-6) Sodium Chloride 10 ml 01/09/20 22:00 01/11/20 11:53 Sodium Chloride Flush Syringe 10 Ml IV 10 ml BID PHILLY Administration Sodium Chloride 10 ml 01/09/20 16:33 Sodium Chloride Flush Syringe 10 Ml IV PRN PRN LINE FLUSH Tramadol HCl 50 mg 01/09/20 16:15 Ultram PO Q6HR PRN Pain, Moderate (4-6) Valsartan 80 mg 01/10/20 10:00 01/10/20 10:00 Diovan PO Not Given DAILY [facility]
[2020-01-11] MEDS: VALSARTAN 40 MG TAB PO SCH (18:47)
[2020-01-12] MEDS: diphenhydrAMINE 25 MG CAP PO PRN (00:50)
--- NOTE | 2020-01-12 08:54 | Progress Note ---
Assessment and Plan - Patient Problems (1) ESRD needing dialysis Current Visit: No Status: Acute Plan to address problem: Will continue on TTS HD schedule as inpatient. Orders placed. (2) Volume overload Current Visit: Yes Status: Acute Qualifiers: Plan to address problem: Goal is to optimize volume status with adequate fluid removal with HD. Evaluate daily for need of extra isolated UF sessions. No acute HD needs today. (3) Hyponatremia Current Visit: No Status: Acute Plan to address problem: Possibly in the setting of fluid overload. Optimze volume status with adequate UF during HD. (4) Hypertensive chronic kidney disease with stage 5 chronic kidney disease or end stage renal disease Current Visit: No Status: Chronic Plan to address problem: Monitor on current regimen. (5) Anemia in CKD (chronic kidney disease) Current Visit: Yes Status: Acute Qualifiers: Chronic kidney disease stage: on chronic dialysis Qualified Code(s): N18.6 - End stage renal disease; D63.1 - Anemia in chronic kidney disease; Z99.2 - Dependence on renal dialysis Plan to address problem: CLARITA therapy with HD. (6) Secondary hyperparathyroidism (of renal origin) Current Visit: Yes Status: Chronic Plan to address problem: Continue on current outpatient phos binder regimen. Subjective Date of service: 01/12/20 Interval history: No acute issues this am. Still complaining of mild shortness of breath. Plan for HD today. Objective - Vital Signs Vital signs: Vital Signs - 12hr 01/11/20 01/12/20 01/12/20 22:53 00:43 05:16 Temperature 100.9 F H 99.7 F H 99.2 F Pulse Rate 68 65 Respiratory 18 20 Rate Blood Pressure 144/66 154/68 O2 Sat by Pulse 91 94 Oximetry - General Appearance General appearance: well-developed, well-nourished EENT: ATNC Neck: no JVD, no thyromegaly Respiratory: Present: Decreased Breath Sounds Cardiology: regular, S1S2 Gastrointestinal: normal, normoactive bowel sounds Integumentary: no rash Neurologic: no focal deficit Musculoskeletal: deferred Psychiatric: cooperative - Lab 01/10/20 06:54 01/10/20 06:54 Most recent lab results Calcium 8.1 mg/dL (8.4-10.2) L 01/10/20 06:54 - Allied health notes Allied health notes reviewed: nursing Medications & Allergies - Medications Allergies/Adverse Reactions: Allergies cheese Allergy (Mild, Verified 12/20/19 10:19) Itching iodine Allergy (Mild, Verified 12/20/19 10:16) Anaphylaxis clonidine Allergy (Verified 12/19/19 04:13) Anaphylaxis shellfish derived Adverse Reaction (Verified 12/19/19 04:13) Angioedema Home Medications: Home Medications Medication Instructions Recorded Confirmed Last Taken Type Atorvastatin [Lipitor] 40 mg PO DAILY 11/06/19 01/04/20 01/02/20 10:00 History Acetaminophen [Acetaminophen 8 650 mg PO Q8H PRN #30 tablet.er 11/21/19 01/04/20 01/03/20 22:00 Rx Hour] Cyclobenzaprine HCl [Flexeril 5 MG 5 mg PO QHS PRN #20 tab 11/21/19 01/04/20 01/01/20 22:00 Rx TAB] HYDROcodone/APAP 5-325 [[place] 1 each PO Q6HR PRN #18 tablet 12/13/19 01/04/20 01/01/20 22:00 Rx 5-325 mg TAB] amLODIPine 10 mg PO DAILY 90 Days #90 tab 12/18/19 01/04/20 01/01/20 10:00 Rx Ibuprofen 800 mg PO TID 12/19/19 01/04/20 01/02/20 22:00 History Magnesium Oxide [Mag-Ox] 400 mg PO QDAY 12/19/19 01/04/20 01/03/20 10:00 History diphenhydrAMINE [Benadryl CAP] 25 mg PO Q8HR PRN 12/19/19 01/04/20 01/03/20 21:00 History labetaloL [Labetalol 100mg TAB] 100 mg PO Q8H #90 tablet 12/21/19 01/04/20 01/02/20 10:00 Rx traMADoL [Ultram 50 MG tab] 50 mg PO Q6HR PRN #20 tablet 12/29/19 01/04/20 12/31/19 10:00 Rx DULoxetine [Cymbalta] 30 mg PO QDAY #30 capsule 01/04/20 Unknown Rx Valsartan [Diovan] 80 mg PO DAILY #30 tablet 01/04/20 Unknown Rx Active Medications: Generic Name Dose Route Start Last Admin Trade Name Freq PRN Reason Stop Dose Admin Acetaminophen 650 mg 01/09/20 16:33 01/11/20 23:43 Tylenol PO 650 mg Q4H PRN Administration Pain MILD(1-3)/Fever >100.5/MEANS Acetaminophen/Hydrocodone Bitart 1 each 01/09/20 16:15 01/11/20 21:04 [place] 5/325 PO 1 each Q6HR PRN Administration Pain, Moderate (4-6) Amlodipine Besylate 10 mg 01/09/20 17:00 01/11/20 11:50 Amlodipine PO 10 mg DAILY PHILLY Administration Atorvastatin Calcium 40 mg 01/09/20 22:00 01/11/20 21:04 Lipitor PO 40 mg QHS PHILLY Administration Cyclobenzaprine HCl 5 mg 01/09/20 16:27 01/10/20 23:17 Flexeril PO 5 mg QHS PRN Administration Muscle Spasm Diphenhydramine HCl 25 mg 01/09/20 16:15 01/12/20 00:50 Benadryl PO 25 mg Q8HR PRN Administration Itching Duloxetine HCl 30 mg 01/09/20 17:00 01/11/20 11:51 Cymbalta PO 30 mg QDAY PHILLY Administration Famotidine 20 mg 01/09/20 22:00 01/11/20 11:51 Pepcid PO 20 mg DAILY PHILLY Administration Heparin Sodium (Porcine) 5,000 unit 01/10/20 10:00 01/11/20 21:04 Heparin SUB-Q 5,000 unit Q12HR PHILLY Administration Sodium Chloride 100 mls @ 999 mls/hr 01/09/20 19:13 Nacl 0.9% IV SILVERIO PRN Hypotension Levofloxacin/Dextrose 750 mg in 150 mls @ 100 mls/hr 01/12/20 09:00 Levaquin 750mg/150ml IV Q48H [facility] Protocol Labetalol HCl 100 mg 01/09/20 17:00 01/12/20 00:36 Labetalol PO 100 mg Q8H PHILLY Administration Magnesium Oxide 400 mg 01/09/20 17:00 01/11/20 11:52 Mag-Ox PO 400 mg QDAY PHILLY Administration Ondansetron HCl 4 mg 01/09/20 16:33 Zofran IV Q8H PRN Nausea And Vomiting Oxycodone/Acetaminophen 1 tab 01/09/20 16:43 01/09/20 17:12 Percocet 5/325 PO 1 tab Q6H PRN Administration Pain, Moderate (4-6) Sodium Chloride 10 ml 01/09/20 22:00 01/11/20 21:09 Sodium Chloride Flush Syringe 10 Ml IV 10 ml BID PHILLY Administration Sodium Chloride 10 ml 01/09/20 16:33 Sodium Chloride Flush Syringe 10 Ml IV PRN PRN LINE FLUSH Tramadol HCl 50 mg 01/09/20 16:15 Ultram PO Q6HR PRN Pain, Moderate (4-6) Valsartan 80 mg 01/10/20 10:00 01/11/20 18:47 Diovan PO 80 mg DAILY PHILLY Administration
[2020-01-12] MEDS: HYDROcodone/ACETAMINOPHEN 5-325 MG TAB PO PRN (11:30)
--- NOTE | 2020-01-12 12:08 | Progress Note ---
Assessment and Plan Assessment and plan: Chest pain Stress test neg for ischemia GERD and costochondritis in differential diagnosis Volume overload s/p hemodialysis yesterday Nephrology consulted,following Chronic diastolic CHF exacerbation Secondary to volume overload End stage renal disease on dialysis Nephrology following T2DM (type 2 diabetes mellitus) Continue continue coverage Check hemoglobin A1c Hypertension Continue antihypertensives Hyponatremia Secondary to increased volume--dilutional DVT prophylaxis On heparin and GI prophylaxis Fever to r/o Covid- 19 01/11 Covid 19 survey testing sent, nasal swab done 01/10 History Interval history: Patient presented with chest tightness Now fever Hospitalist Physical - Physical exam Narrative exam: GEN: Not in acute distress, lying in bed,obese HEENT: Normocephalic, atraumatic, Neck: supple, No JVD Lungs: Clear, no crackles, heart;S1 and S2 reg, no murmurs, rubs or gallop Abd:soft, non tender, non distended, normal bowel sounds Ext: No edema, no clubbing, no cyanosis, Neuro: Awake,alert, has dementia - Constitutional Vitals: Temp Pulse Resp BP Pulse Ox 99.2 F 77 20 190/86 94 01/12/20 08:55 01/12/20 12:00 01/12/20 08:55 01/12/20 12:00 01/12/20 05:16 General appearance: Present: no acute distress SEAN score - Sean Score Age > 65: (1) Yes Aspirin use within the Past 7 Days: (1) Yes 3 or more CAD Risk Factors: (1) Yes 2 or more Angina events in past 24 hrs: (1) Yes Known CAD with more than 50% Stenosis: (0) No Elevated Cardiac Markers: (0) No ST Deviation Greater than 0.5mm: (0) No SEAN Score: 4 Results - Labs CBC & Chem 7: 01/13/20 06:11 01/13/20 06:11 Labs: Laboratory Last Values WBC 3.3 K/mm3 (4.5-11.0) L 01/10/20 06:54 RBC 3.00 M/mm3 (3.65-5.03) L 01/10/20 06:54 Hgb 9.2 gm/dl (10.1-14.3) L 01/10/20 06:54 Hct 27.8 % (30.3-42.9) L 01/10/20 06:54 MCV 93 fl (79-97) 01/10/20 06:54 MCH 31 pg (28-32) 01/10/20 06:54 MCHC 33 % (30-34) 01/10/20 06:54 RDW 17.2 % (13.2-15.2) H 01/10/20 06:54 Plt Count 206 K/mm3 (140-440) 01/10/20 06:54 Lymph % (Auto) 8.9 % (13.4-35.0) L 01/10/20 06:54 [place] % (Auto) 11.5 % (0.0-7.3) H 01/10/20 06:54 Eos % (Auto) 0.0 % (0.0-4.3) 01/10/20 06:54 Baso % (Auto) 0.5 % (0.0-1.8) 01/10/20 06:54 Lymph # 0.3 K/mm3 (1.2-5.4) L 01/10/20 06:54 [place] # 0.4 K/mm3 (0.0-0.8) 01/10/20 06:54 Eos # 0.0 K/mm3 (0.0-0.4) 01/10/20 06:54 Baso # 0.0 K/mm3 (0.0-0.1) 01/10/20 06:54 Seg Neutrophils % 79.1 % (40.0-70.0) H 01/10/20 06:54 Seg Neutrophils # 2.6 K/mm3 (1.8-7.7) 01/10/20 06:54 PT 15.6 Sec. (12.2-14.9) H 01/09/20 12:55 INR 1.22 (0.87-1.13) H 01/09/20 12:55 APTT 31.5 Sec. (24.2-36.6) 01/09/20 12:55 Sodium 133 mmol/L (137-145) L 01/10/20 06:54 Potassium 4.8 mmol/L (3.6-5.0) 01/10/20 06:54 Chloride 90.6 mmol/L (98-107) L 01/10/20 06:54 Carbon Dioxide 22 mmol/L (22-30) 01/10/20 06:54 Anion Gap 25 mmol/L 01/10/20 06:54 BUN 50 mg/dL (7-17) H 01/10/20 06:54 Creatinine 8.4 mg/dL (0.7-1.2) H 01/10/20 06:54 Estimated GFR 6 ml/min 01/10/20 06:54 BUN/Creatinine Ratio 6 % 01/10/20 06:54 Glucose 101 mg/dL (65-100) H 01/10/20 06:54 POC Glucose 106 (70-105) H 01/11/20 16:45 Hemoglobin A1c 5.0 % (4-6) 01/10/20 06:54 Calcium 8.1 mg/dL (8.4-10.2) L 01/10/20 06:54 Total Bilirubin 0.30 mg/dL (0.1-1.2) 01/10/20 06:54 AST 30 units/L (5-40) 01/10/20 06:54 ALT 24 units/L (7-56) 01/10/20 06:54 Alkaline Phosphatase 148 units/L (35-129) H 01/10/20 06:54 Troponin T 0.315 ng/mL (0.00-0.029) H* 01/10/20 06:54 NT-Pro-B Natriuret Pep 31177 pg/mL (0-900) H 01/09/20 12:55 Total Protein 5.4 g/dL (6.3-8.2) L 01/10/20 06:54 Albumin 2.7 g/dL (3.9-5) L 01/10/20 06:54 Albumin/Globulin Ratio 1.0 % 01/10/20 06:54 Triglycerides 82 mg/dL (2-149) 01/09/20 12:55 Cholesterol 123 mg/dL (50-199) 01/09/20 12:55 LDL Cholesterol Direct 66 mg/dL (50-130) 01/09/20 12:55 HDL Cholesterol 47 mg/dL (40-59) 01/09/20 12:55 Cholesterol/HDL Ratio 2.61 % 01/09/20 12:55 Microbiology: Microbiology 01/10/20 19:55 Peripheral/Venous Blood Culture - Preliminary NO GROWTH AFTER 24 HOURS 01/10/20 19:55 Peripheral/Venous Blood Culture - Preliminary NO GROWTH AFTER 24 HOURS Pleitez/IV: Voiding Method Toilet IV Catheter Type [Left INT / Saline Lock External Jugular] Active Medications - Current Medications Current Medications: Generic Name Dose Route Start Last Admin Trade Name Freq PRN Reason Stop Dose Admin Acetaminophen 650 mg 01/09/20 16:33 01/11/20 23:43 Tylenol PO 650 mg Q4H PRN Administration Pain MILD(1-3)/Fever >100.5/MEANS Acetaminophen/Hydrocodone [place] 1 each 01/09/20 16:15 01/11/20 21:04 [place] 5/325 PO 1 each Q6HR PRN Administration Pain, Moderate (4-6) Amlodipine Besylate 10 mg 01/09/20 17:00 01/11/20 11:50 Amlodipine PO 10 mg DAILY PHILLY Administration Atorvastatin Calcium 40 mg 01/09/20 22:00 01/11/20 21:04 Lipitor PO 40 mg QHS PHILLY Administration Cyclobenzaprine HCl 5 mg 01/09/20 16:27 01/10/20 23:17 Flexeril PO 5 mg QHS PRN Administration Muscle Spasm Diphenhydramine HCl 25 mg 01/09/20 16:15 01/12/20 00:50 Benadryl PO 25 mg Q8HR PRN Administration Itching Duloxetine HCl 30 mg 01/09/20 17:00 01/11/20 11:51 Cymbalta PO 30 mg QDAY PHILLY Administration Famotidine 20 mg 01/09/20 22:00 01/11/20 11:51 Pepcid PO 20 mg DAILY PHILLY Administration Heparin Sodium (Porcine) 5,000 unit 01/10/20 10:00 01/11/20 21:04 Heparin SUB-Q 5,000 unit Q12HR PHILLY Administration Sodium Chloride 100 mls @ 999 mls/hr 01/09/20 19:13 Nacl 0.9% IV SILVERIO PRN Hypotension Levofloxacin/Dextrose 500 mg in 100 mls @ 100 mls/hr 01/14/20 09:00 Levaquin 500mg/100ml IV Q48H PHILLY Labetalol HCl 100 mg 01/09/20 17:00 01/12/20 00:36 Labetalol PO 100 mg Q8H PHILLY Administration Magnesium Oxide 400 mg 01/09/20 17:00 01/11/20 11:52 Mag-Ox PO 400 mg QDAY PHILLY Administration Ondansetron HCl 4 mg 01/09/20 16:33 Zofran IV Q8H PRN Nausea And Vomiting Oxycodone/Acetaminophen 1 tab 01/09/20 16:43 01/09/20 17:12 Percocet 5/325 PO 1 tab Q6H PRN Administration Pain, Moderate (4-6) Sodium Chloride 10 ml 01/09/20 22:00 01/11/20 21:09 Sodium Chloride Flush Syringe 10 Ml IV 10 ml BID PHILLY Administration Sodium Chloride 10 ml 01/09/20 16:33 Sodium Chloride Flush Syringe 10 Ml IV PRN PRN LINE FLUSH Tramadol HCl 50 mg 01/09/20 16:15 Ultram PO Q6HR PRN Pain, Moderate (4-6) Valsartan 80 mg 01/10/20 10:00 01/11/20 18:47 Diovan PO 80 mg DAILY PHILLY Administration
[2020-01-12] MEDS: VALSARTAN 40 MG TAB PO SCH (12:36)
[2020-01-12] MEDS: amLODIPine 10 MG TAB PO SCH (12:37)
[2020-01-12] MEDS: DULoxetine 30 MG CAP PO SCH (15:53)
[2020-01-12] MEDS: MAGNESIUM OXIDE 400 MG TAB PO SCH (15:53)
[2020-01-12] MEDS: FAMOTIDINE 20 MG TAB PO SCH (15:53)
[2020-01-12] MEDS: HEPARIN 5,000 UNIT/1 ML VIAL SUB-Q SCH ×2 (15:53→21:51)
[2020-01-12] MEDS: ACETAMINOPHEN 325 MG TAB PO PRN (18:23)
[2020-01-12] MEDS: ONDANSETRON 4 MG/2 ML INJ IV PRN (18:35)
[2020-01-12] MEDS ORDERED: MAGNESIUM SULFATE 2 GM/50 ML BAG IV ONE (22:35)
[2020-01-13] MEDS: HYDROcodone/ACETAMINOPHEN 5-325 MG TAB PO PRN ×3 (02:49→23:05)
[2020-01-13] MEDS: ONDANSETRON 4 MG/2 ML INJ IV PRN (02:50)
[2020-01-13 07:13] LABS: Hematocrit 30.7 % (30.3-42.9); Hemoglobin 9.8 gm/dl (10.1-14.3); Mean Corpuscular HGB Conc 32 % (30-34); Mean Corpuscular Volume 94 fl (79-97); Platelet Count 136 K/mm3 (140-440); Red Blood Count 3.25 M/mm3 (3.65-5.03); Red Cell Distribution Width 17.2 % (13.2-15.2)
[2020-01-13 07:25] LABS: Calcium 7.8 mg/dL (8.4-10.2)
[2020-01-13] MEDS: VALSARTAN 40 MG TAB PO SCH (09:58)
[2020-01-13] MEDS: HEPARIN 5,000 UNIT/1 ML VIAL SUB-Q SCH ×2 (09:58→23:07)
[2020-01-13] MEDS: FAMOTIDINE 20 MG TAB PO SCH (09:59)
[2020-01-13] MEDS: DULoxetine 30 MG CAP PO SCH (09:59)
[2020-01-13] MEDS: MAGNESIUM OXIDE 400 MG TAB PO SCH (09:59)
[2020-01-13] MEDS: amLODIPine 10 MG TAB PO SCH (09:59)
--- NOTE | 2020-01-13 14:20 | Progress Note ---
Assessment and Plan - Patient Problems (1) ESRD needing dialysis Current Visit: No Status: Acute Plan to address problem: Will continue on TTS HD schedule as inpatient. Orders placed. (2) Volume overload Current Visit: Yes Status: Acute Qualifiers: Plan to address problem: Goal is to optimize volume status with adequate fluid removal with HD. Evaluate daily for need of extra isolated UF sessions. No acute HD needs today. (3) Hyponatremia Current Visit: No Status: Acute Plan to address problem: Possibly in the setting of fluid overload. Optimze volume status with adequate UF during HD. (4) Hypertensive chronic kidney disease with stage 5 chronic kidney disease or end stage renal disease Current Visit: No Status: Chronic Plan to address problem: Monitor on current regimen. (5) Anemia in CKD (chronic kidney disease) Current Visit: Yes Status: Acute Qualifiers: Chronic kidney disease stage: on chronic dialysis Qualified Code(s): N18.6 - End stage renal disease; D63.1 - Anemia in chronic kidney disease; Z99.2 - Dependence on renal dialysis Plan to address problem: CLARITA therapy with HD. (6) Secondary hyperparathyroidism (of renal origin) Current Visit: Yes Status: Chronic Plan to address problem: Continue on current outpatient phos binder regimen. Subjective Date of service: 01/13/20 Interval history: Tolerated HD with UF 1L yesterday. Objective - Vital Signs Vital signs: Vital Signs - 12hr 01/13/20 01/13/20 01/13/20 02:49 03:32 03:49 Temperature 98.5 F Pulse Rate 67 Respiratory 19 20 18 Rate Blood Pressure 103/48 Blood Pressure [Right] O2 Sat by Pulse 63 L Oximetry 01/13/20 01/13/20 01/13/20 04:00 07:15 09:14 Temperature Pulse Rate 70 69 Respiratory 18 18 Rate Blood Pressure 138/71 Blood Pressure [Right] O2 Sat by Pulse 100 Oximetry 01/13/20 01/13/20 01/13/20 09:24 09:58 12:49 Temperature 99.1 F 98.9 F Pulse Rate 69 72 Respiratory 90 H Rate Blood Pressure 138/71 Blood Pressure 117/50 [Right] O2 Sat by Pulse Oximetry - General Appearance General appearance: appears stated age EENT: ATNC Neck: no JVD Respiratory: Present: Decreased Breath Sounds Cardiology: regular, S1S2 Gastrointestinal: normal Integumentary: no rash Neurologic: no focal deficit Musculoskeletal: deferred Psychiatric: cooperative - Lab 01/13/20 06:11 01/13/20 06:11 Most recent lab results Calcium 7.8 mg/dL (8.4-10.2) L 01/13/20 06:11 Phosphorus 3.30 mg/dL (2.5-4.5) 01/12/20 16:01 Magnesium 2.00 mg/dL (1.7-2.3) 01/13/20 06:11 - Allied health notes Allied health notes reviewed: nursing Medications & Allergies - Medications Allergies/Adverse Reactions: Allergies cheese Allergy (Mild, Verified 12/20/19 10:19) Itching iodine Allergy (Mild, Verified 12/20/19 10:16) Anaphylaxis clonidine Allergy (Verified 12/19/19 04:13) Anaphylaxis shellfish derived Adverse Reaction (Verified 12/19/19 04:13) Angioedema Home Medications: Home Medications Medication Instructions Recorded Confirmed Last Taken Type Atorvastatin [Lipitor] 40 mg PO DAILY 11/06/19 01/04/20 01/02/20 10:00 History Acetaminophen [Acetaminophen 8 650 mg PO Q8H PRN #30 tablet.er 11/21/19 01/04/20 01/03/20 22:00 Rx Hour] Cyclobenzaprine HCl [Flexeril 5 MG 5 mg PO QHS PRN #20 tab 11/21/19 01/04/20 01/01/20 22:00 Rx TAB] HYDROcodone/APAP 5-325 [[place] 1 each PO Q6HR PRN #18 tablet 12/13/19 01/04/20 01/01/20 22:00 Rx 5-325 mg TAB] amLODIPine 10 mg PO DAILY 90 Days #90 tab 12/18/19 01/04/20 01/01/20 10:00 Rx Ibuprofen 800 mg PO TID 12/19/19 01/04/20 01/02/20 22:00 History Magnesium Oxide [Mag-Ox] 400 mg PO QDAY 12/19/19 01/04/20 01/03/20 10:00 History diphenhydrAMINE [Benadryl CAP] 25 mg PO Q8HR PRN 12/19/19 01/04/20 01/03/20 21:00 History labetaloL [Labetalol 100mg TAB] 100 mg PO Q8H #90 tablet 12/21/19 01/04/20 01/02/20 10:00 Rx traMADoL [Ultram 50 MG tab] 50 mg PO Q6HR PRN #20 tablet 12/29/19 01/04/20 12/31/19 10:00 Rx DULoxetine [Cymbalta] 30 mg PO QDAY #30 capsule 01/04/20 Unknown Rx Valsartan [Diovan] 80 mg PO DAILY #30 tablet 01/04/20 Unknown Rx Active Medications: Generic Name Dose Route Start Last Admin Trade Name Freq PRN Reason Stop Dose Admin Acetaminophen 650 mg 01/09/20 16:33 01/12/20 18:23 Tylenol PO 650 mg Q4H PRN Administration Pain MILD(1-3)/Fever >100.5/MEANS Acetaminophen/Hydrocodone [place] 1 each 01/09/20 16:15 01/13/20 11:16 [place] 5/325 PO 1 each Q6HR PRN Administration Pain, Moderate (4-6) Amlodipine Besylate 10 mg 01/09/20 17:00 01/13/20 09:59 Amlodipine PO 10 mg DAILY PHILLY Administration Atorvastatin Calcium 40 mg 01/09/20 22:00 01/12/20 21:51 Lipitor PO 40 mg QHS PHILLY Administration Cyclobenzaprine HCl 5 mg 01/09/20 16:27 01/10/20 23:17 Flexeril PO 5 mg QHS PRN Administration Muscle Spasm Diphenhydramine HCl 25 mg 01/09/20 16:15 01/12/20 00:50 Benadryl PO 25 mg Q8HR PRN Administration Itching Duloxetine HCl 30 mg 01/09/20 17:00 01/13/20 09:59 Cymbalta PO 30 mg QDAY PHILLY Administration Famotidine 20 mg 01/09/20 22:00 01/13/20 09:59 Pepcid PO 20 mg DAILY PHILLY Administration Heparin Sodium (Porcine) 5,000 unit 01/10/20 10:00 01/13/20 09:58 Heparin SUB-Q 5,000 unit Q12HR PHILLY Administration Sodium Chloride 100 mls @ 999 mls/hr 01/09/20 19:13 Nacl 0.9% IV SILVERIO PRN Hypotension Levofloxacin/Dextrose 500 mg in 100 mls @ 100 mls/hr 01/14/20 09:00 Levaquin 500mg/100ml IV Q48H PHILLY Labetalol HCl 100 mg 01/09/20 17:00 01/13/20 11:16 Labetalol PO 100 mg Q8H PHILLY Administration Magnesium Oxide 400 mg 01/09/20 17:00 01/13/20 09:59 Mag-Ox PO 400 mg QDAY PHILLY Administration Ondansetron HCl 4 mg 01/09/20 16:33 01/13/20 02:50 Zofran IV 4 mg Q8H PRN Administration Nausea And Vomiting Oxycodone/Acetaminophen 1 tab 01/09/20 16:43 01/09/20 17:12 Percocet 5/325 PO 1 tab Q6H PRN Administration Pain, Moderate (4-6) Sodium Chloride 10 ml 01/09/20 22:00 01/13/20 09:59 Sodium Chloride Flush Syringe 10 Ml IV 10 ml BID PHILLY Administration Sodium Chloride 10 ml 01/09/20 16:33 Sodium Chloride Flush Syringe 10 Ml IV PRN PRN LINE FLUSH Tramadol HCl 50 mg 01/09/20 16:15 Ultram PO Q6HR PRN Pain, Moderate (4-6) Valsartan 80 mg 01/10/20 10:00 01/13/20 09:58 Diovan PO 80 mg DAILY PHILLY Administration
--- NOTE | 2020-01-13 23:16 | Progress Note ---
Assessment and Plan Assessment and plan: Chest pain Stress test neg for ischemia GERD and costochondritis in differential diagnosis Volume overload s/p hemodialysis Nephrology consulted,following Chronic diastolic CHF exacerbation Secondary to volume overload Acute resp fauilure on Oxygen May need Oxygen on dc End stage renal disease on dialysis Nephrology following T2DM (type 2 diabetes mellitus) Continue continue coverage Check hemoglobin A1c Hypertension Continue antihypertensives Hyponatremia Secondary to increased volume--dilutional DVT prophylaxis On heparin and GI prophylaxis Fever to r/o Covid- 19 01/11 Covid 19 survey testing sent, nasal swab done 01/10 01/12 Patient has acute resp failure. may need Oxygen on dc. awaiting Covid result History Interval history: Patient presented with chest tightness Now fever Hospitalist Physical - Physical exam Narrative exam: GEN: Not in acute distress, lying in bed,obese HEENT: Normocephalic, atraumatic, Neck: supple, No JVD Lungs: Clear, no crackles, heart;S1 and S2 reg, no murmurs, rubs or gallop Abd:soft, non tender, non distended, normal bowel sounds Ext: No edema, no clubbing, no cyanosis, Neuro: Awake,alert, has dementia - Constitutional Vitals: Temp Pulse Resp BP Pulse Ox 98.8 F 66 17 134/69 96 01/13/20 21:43 01/13/20 22:38 01/13/20 23:05 01/13/20 22:38 01/13/20 22:38 General appearance: Present: no acute distress SEAN score - Sean Score Age > 65: (1) Yes Aspirin use within the Past 7 Days: (1) Yes 3 or more CAD Risk Factors: (1) Yes 2 or more Angina events in past 24 hrs: (1) Yes Known CAD with more than 50% Stenosis: (0) No Elevated Cardiac Markers: (0) No ST Deviation Greater than 0.5mm: (0) No SEAN Score: 4 Results - Labs CBC & Chem 7: 01/13/20 06:11 01/13/20 06:11 Labs: Laboratory Last Values WBC 3.1 K/mm3 (4.5-11.0) L 01/13/20 06:11 RBC 3.25 M/mm3 (3.65-5.03) L 01/13/20 06:11 Hgb 9.8 gm/dl (10.1-14.3) L 01/13/20 06:11 Hct 30.7 % (30.3-42.9) 01/13/20 06:11 MCV 94 fl (79-97) 01/13/20 06:11 MCH 30 pg (28-32) 01/13/20 06:11 MCHC 32 % (30-34) 01/13/20 06:11 RDW 17.2 % (13.2-15.2) H 01/13/20 06:11 Plt Count 136 K/mm3 (140-440) L 01/13/20 06:11 Lymph % (Auto) 8.9 % (13.4-35.0) L 01/10/20 06:54 [place] % (Auto) 11.5 % (0.0-7.3) H 01/10/20 06:54 Eos % (Auto) 0.0 % (0.0-4.3) 01/10/20 06:54 Baso % (Auto) 0.5 % (0.0-1.8) 01/10/20 06:54 Lymph # 0.3 K/mm3 (1.2-5.4) L 01/10/20 06:54 [place] # 0.4 K/mm3 (0.0-0.8) 01/10/20 06:54 Eos # 0.0 K/mm3 (0.0-0.4) 01/10/20 06:54 Baso # 0.0 K/mm3 (0.0-0.1) 01/10/20 06:54 Seg Neutrophils % 79.1 % (40.0-70.0) H 01/10/20 06:54 Seg Neutrophils # 2.6 K/mm3 (1.8-7.7) 01/10/20 06:54 PT 15.6 Sec. (12.2-14.9) H 01/09/20 12:55 INR 1.22 (0.87-1.13) H 01/09/20 12:55 APTT 31.5 Sec. (24.2-36.6) 01/09/20 12:55 Sodium 135 mmol/L (137-145) L 01/13/20 06:11 Potassium 4.3 mmol/L (3.6-5.0) 01/13/20 06:11 Chloride 93.4 mmol/L (98-107) L 01/13/20 06:11 Carbon Dioxide 23 mmol/L (22-30) 01/13/20 06:11 Anion Gap 23 mmol/L 01/13/20 06:11 BUN 19 mg/dL (7-17) H 01/13/20 06:11 Creatinine 4.5 mg/dL (0.7-1.2) H 01/13/20 06:11 Estimated GFR 12 ml/min 01/13/20 06:11 BUN/Creatinine Ratio 4 % 01/13/20 06:11 Glucose 120 mg/dL (65-100) H 01/13/20 06:11 POC Glucose 106 (70-105) H 01/11/20 16:45 Hemoglobin A1c 5.0 % (4-6) 01/10/20 06:54 Calcium 7.8 mg/dL (8.4-10.2) L 01/13/20 06:11 Phosphorus 3.30 mg/dL (2.5-4.5) 01/12/20 16:01 Magnesium 2.00 mg/dL (1.7-2.3) 01/13/20 06:11 Total Bilirubin 0.30 mg/dL (0.1-1.2) 01/10/20 06:54 AST 30 units/L (5-40) 01/10/20 06:54 ALT 24 units/L (7-56) 01/10/20 06:54 Alkaline Phosphatase 148 units/L (35-129) H 01/10/20 06:54 Troponin T 0.315 ng/mL (0.00-0.029) H* 01/10/20 06:54 NT-Pro-B Natriuret Pep 57857 pg/mL (0-900) H 01/09/20 12:55 Total Protein 5.4 g/dL (6.3-8.2) L 01/10/20 06:54 Albumin 2.7 g/dL (3.9-5) L 01/10/20 06:54 Albumin/Globulin Ratio 1.0 % 01/10/20 06:54 Triglycerides 82 mg/dL (2-149) 01/09/20 12:55 Cholesterol 123 mg/dL (50-199) 01/09/20 12:55 LDL Cholesterol Direct 66 mg/dL (50-130) 01/09/20 12:55 HDL Cholesterol 47 mg/dL (40-59) 01/09/20 12:55 Cholesterol/HDL Ratio 2.61 % 01/09/20 12:55 Microbiology: Microbiology 01/10/20 19:55 Peripheral/Venous Blood Culture - Preliminary NO GROWTH AFTER 72 HOURS 01/10/20 19:55 Peripheral/Venous Blood Culture - Preliminary NO GROWTH AFTER 72 HOURS Pleitez/IV: Voiding Method Toilet IV Catheter Type [Left INT / Saline Lock External Jugular] Active Medications - Current Medications Current Medications: Generic Name Dose Route Start Last Admin Trade Name Freq PRN Reason Stop Dose Admin Acetaminophen 650 mg 01/09/20 16:33 01/12/20 18:23 Tylenol PO 650 mg Q4H PRN Administration Pain MILD(1-3)/Fever >100.5/MEANS Acetaminophen/Hydrocodone Bitart 1 each 01/09/20 16:15 01/13/20 23:05 [place] 5/325 PO 1 each Q6HR PRN Administration Pain, Moderate (4-6) Amlodipine Besylate 10 mg 01/09/20 17:00 01/13/20 09:59 Amlodipine PO 10 mg DAILY PHILLY Administration Atorvastatin Calcium 40 mg 01/09/20 22:00 01/13/20 22:03 Lipitor PO 40 mg QHS PHILLY Administration Cyclobenzaprine HCl 5 mg 01/09/20 16:27 01/10/20 23:17 Flexeril PO 5 mg QHS PRN Administration Muscle Spasm Diphenhydramine HCl 25 mg 01/09/20 16:15 01/12/20 00:50 Benadryl PO 25 mg Q8HR PRN Administration Itching Duloxetine HCl 30 mg 01/09/20 17:00 01/13/20 09:59 Cymbalta PO 30 mg QDAY PHILLY Administration Famotidine 20 mg 01/09/20 22:00 01/13/20 09:59 Pepcid PO 20 mg DAILY PHILLY Administration Heparin Sodium (Porcine) 5,000 unit 01/10/20 10:00 01/13/20 23:07 Heparin SUB-Q 5,000 unit Q12HR PHILLY Administration Sodium Chloride 100 mls @ 999 mls/hr 01/09/20 19:13 Nacl 0.9% IV SILVERIO PRN Hypotension Levofloxacin/Dextrose 500 mg in 100 mls @ 100 mls/hr 01/14/20 09:00 Levaquin 500mg/100ml IV Q48H [facility] Labetalol HCl 100 mg 01/09/20 17:00 01/13/20 17:49 Labetalol PO Not Given Q8H PHILLY Magnesium Oxide 400 mg 01/09/20 17:00 01/13/20 09:59 Mag-Ox PO 400 mg QDAY PHILLY Administration Ondansetron HCl 4 mg 01/09/20 16:33 01/13/20 02:50 Zofran IV 4 mg Q8H PRN Administration Nausea And Vomiting Oxycodone/Acetaminophen 1 tab 01/09/20 16:43 01/09/20 17:12 Percocet 5/325 PO 1 tab Q6H PRN Administration Pain, Moderate (4-6) Sodium Chloride 10 ml 01/09/20 22:00 01/13/20 22:03 Sodium Chloride Flush Syringe 10 Ml IV 10 ml BID PHILLY Administration Sodium Chloride 10 ml 01/09/20 16:33 Sodium Chloride Flush Syringe 10 Ml IV PRN PRN LINE FLUSH Tramadol HCl 50 mg 01/09/20 16:15 Ultram PO Q6HR PRN Pain, Moderate (4-6) Valsartan 80 mg 01/10/20 10:00 01/13/20 09:58 Diovan PO 80 mg DAILY PHILLY Administration
[2020-01-14] MEDS: FAMOTIDINE 20 MG TAB PO SCH (09:55)
[2020-01-14] MEDS: MAGNESIUM OXIDE 400 MG TAB PO SCH (09:55)
[2020-01-14] MEDS: DULoxetine 30 MG CAP PO SCH (09:55)
[2020-01-14] MEDS: amLODIPine 10 MG TAB PO SCH (09:55)
[2020-01-14] MEDS: HEPARIN 5,000 UNIT/1 ML VIAL SUB-Q SCH ×2 (09:56→21:47)
[2020-01-14] MEDS: VALSARTAN 40 MG TAB PO SCH (10:01)
--- NOTE | 2020-01-14 15:03 | Progress Note ---
Assessment and Plan - Patient Problems (1) End stage renal disease on dialysis Current Visit: No Status: Chronic Plan to address problem: continue on TTS HD schedule (2) Volume overload Current Visit: Yes Status: Acute Qualifiers: Plan to address problem: Goal is to optimize volume status with adequate fluid removal with HD. Evaluate daily for need of extra isolated UF sessions (3) Bilateral pulmonary infiltrates on chest x-ray Current Visit: Yes Status: Acute Plan to address problem: improved on HD (4) Hyponatremia Current Visit: No Status: Acute Plan to address problem: Possibly in the setting of fluid overload. improving with optimizing volume status with HD. 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 (7) Anemia in CKD (chronic kidney disease) Current Visit: Yes Status: Acute Qualifiers: Chronic kidney disease stage: on chronic dialysis Qualified Code(s): N18.6 - End stage renal disease; D63.1 - Anemia in chronic kidney disease; Z99.2 - Dependence on renal dialysis Plan to address problem: CLARITA therapy with HD. (8) Secondary hyperparathyroidism (of renal origin) Current Visit: Yes Status: Chronic Plan to address problem: Continue on current outpatient phos binder regimen. Subjective Date of service: 01/14/20 Principal diagnosis: Fluid overload Interval history: patient awake, alert, in no acute respiratory distress, denies SOB, CP, fever, chills n/v/d overnight Objective - Vital Signs Vital signs: Vital Signs - 12hr 01/14/20 01/14/20 01/14/20 03:55 04:15 05:45 Temperature 98.8 F Pulse Rate 66 69 66 Pulse Rate [ Right Radial] Respiratory 20 21 Rate Blood Pressure 128/65 109/57 Blood Pressure 132/64 [Right] O2 Sat by Pulse 89 91 Oximetry 01/14/20 01/14/20 01/14/20 08:00 09:55 10:01 Temperature Pulse Rate 66 66 Pulse Rate [ 68 Right Radial] Respiratory 22 Rate Blood Pressure 132/64 132/64 Blood Pressure [Right] O2 Sat by Pulse Oximetry 01/14/20 11:19 Temperature 98.5 F Pulse Rate 68 Pulse Rate [ Right Radial] Respiratory 20 Rate Blood Pressure 131/65 Blood Pressure [Right] O2 Sat by Pulse 95 Oximetry - General Appearance General appearance: well-developed, well-nourished, appears stated age EENT: ATNC, PERRL, mucous membranes moist Neck: no JVD Respiratory: Present: Decreased Breath Sounds Cardiology: regular, S1S2 Gastrointestinal: normoactive bowel sounds Integumentary: no rash, other (trace edema ) Neurologic: no focal deficit, alert and oriented x3, strength 5/5, CN 3-12 intact Psychiatric: mood/affect appropriate, cooperative - Lab 01/13/20 06:11 01/13/20 06:11 Most recent lab results Calcium 7.8 mg/dL (8.4-10.2) L 01/13/20 06:11 Phosphorus 3.30 mg/dL (2.5-4.5) 01/12/20 16:01 Magnesium 2.00 mg/dL (1.7-2.3) 01/13/20 06:11 Medications & Allergies - Medications Allergies/Adverse Reactions: Allergies cheese Allergy (Mild, Verified 12/20/19 10:19) Itching iodine Allergy (Mild, Verified 12/20/19 10:16) Anaphylaxis clonidine Allergy (Verified 12/19/19 04:13) Anaphylaxis shellfish derived Adverse Reaction (Verified 12/19/19 04:13) Angioedema Home Medications: Home Medications Medication Instructions Recorded Confirmed Last Taken Type Atorvastatin [Lipitor] 40 mg PO DAILY 11/06/19 01/13/20 01/02/20 10:00 History Acetaminophen [Acetaminophen 8 650 mg PO Q8H PRN #30 tablet.er 11/21/19 01/13/20 01/03/20 22:00 Rx Hour] Cyclobenzaprine HCl [Flexeril 5 MG 5 mg PO QHS PRN #20 tab 11/21/19 01/13/20 01/01/20 22:00 Rx TAB] HYDROcodone/APAP 5-325 [[place] 1 each PO Q6HR PRN #18 tablet 12/13/19 01/13/20 01/01/20 22:00 Rx 5-325 mg TAB] amLODIPine 10 mg PO DAILY 90 Days #90 tab 12/18/19 01/13/20 01/01/20 10:00 Rx Ibuprofen 800 mg PO TID 12/19/19 01/13/20 01/02/20 22:00 History Magnesium Oxide [Mag-Ox] 400 mg PO QDAY 12/19/19 01/13/20 01/03/20 10:00 History diphenhydrAMINE [Benadryl CAP] 25 mg PO Q8HR PRN 12/19/19 01/13/20 01/03/20 21:00 History labetaloL [Labetalol 100mg TAB] 100 mg PO Q8H #90 tablet 12/21/19 01/13/20 01/02/20 10:00 Rx traMADoL [Ultram 50 MG tab] 50 mg PO Q6HR PRN #20 tablet 12/29/19 01/13/20 0 12/31/19 10:00 Rx DULoxetine [Cymbalta] 30 mg PO QDAY #30 capsule 01/04/20 01/13/20 Unknown Rx Valsartan [Diovan] 80 mg PO DAILY #30 tablet 01/04/20 01/13/20 Unknown Rx Active Medications: Generic Name Dose Route Start Last Admin Trade Name Freq PRN Reason Stop Dose Admin Acetaminophen 650 mg 01/09/20 16:33 01/12/20 18:23 Tylenol PO 650 mg Q4H PRN Administration Pain MILD(1-3)/Fever >100.5/MEANS Acetaminophen/Hydrocodone Bitart 1 each 01/09/20 16:15 01/13/20 23:05 [place] 5/325 PO 1 each Q6HR PRN Administration Pain, Moderate (4-6) Amlodipine Besylate 10 mg 01/09/20 17:00 01/14/20 09:55 Amlodipine PO 10 mg DAILY PHILLY Administration Atorvastatin Calcium 40 mg 01/09/20 22:00 01/13/20 22:03 Lipitor PO 40 mg QHS PHILLY Administration Cyclobenzaprine HCl 5 mg 01/09/20 16:27 01/10/20 23:17 Flexeril PO 5 mg QHS PRN Administration Muscle Spasm Diphenhydramine HCl 25 mg 01/09/20 16:15 01/12/20 00:50 Benadryl PO 25 mg Q8HR PRN Administration Itching Duloxetine HCl 30 mg 01/09/20 17:00 01/14/20 09:55 Cymbalta PO 30 mg QDAY PHILLY Administration Famotidine 20 mg 01/09/20 22:00 01/14/20 09:55 Pepcid PO 20 mg DAILY PHILLY Administration Heparin Sodium (Porcine) 5,000 unit 01/10/20 10:00 01/14/20 09:56 Heparin SUB-Q 5,000 unit Q12HR PHILLY Administration Sodium Chloride 100 mls @ 999 mls/hr 01/09/20 19:13 Nacl 0.9% IV SILVERIO PRN Hypotension Levofloxacin/Dextrose 500 mg in 100 mls @ 100 mls/hr 01/14/20 09:00 01/14/20 09:54 Levaquin 500mg/100ml IV 01/18/20 12:59 100 mls/hr Q48H PHILLY Administration Labetalol HCl 100 mg 01/09/20 17:00 01/14/20 10:01 Labetalol PO 100 mg Q8H PHILLY Administration Magnesium Oxide 400 mg 01/09/20 17:00 01/14/20 09:55 Mag-Ox PO 400 mg QDAY PHILLY Administration Ondansetron HCl 4 mg 01/09/20 16:33 01/13/20 02:50 Zofran IV 4 mg Q8H PRN Administration Nausea And Vomiting Oxycodone/Acetaminophen 1 tab 01/09/20 16:43 01/09/20 17:12 Percocet 5/325 PO 1 tab Q6H PRN Administration Pain, Moderate (4-6) Sodium Chloride 10 ml 01/09/20 22:00 01/14/20 09:56 Sodium Chloride Flush Syringe 10 Ml IV 10 ml BID PHILLY Administration Sodium Chloride 10 ml 01/09/20 16:33 Sodium Chloride Flush Syringe 10 Ml IV PRN PRN LINE FLUSH Tramadol HCl 50 mg 01/09/20 16:15 Ultram PO Q6HR PRN Pain, Moderate (4-6) Valsartan 80 mg 01/10/20 10:00 01/14/20 10:01 Diovan PO 80 mg DAILY PHILLY Administration
--- NOTE | 2020-01-14 17:19 | Progress Note ---
Assessment and Plan Assessment and plan: 64-year-old female with history of hyperlipidemia, end-stage renal disease on dialysis, hypertension and depression. Patient comes in for evaluation of chest pain and shortness of breath and generalized body swelling. Patient has orthopnea. In spite of dialysis day before presentation, she did not feel better. No nausea vomiting. No fever or chills. She was admitted, stress test negative. cardiology recommended to r/o Covid 19. Test done. Results pending. Chest pain Stress test neg for ischemia GERD and costochondritis in differential diagnosis Volume overload s/p hemodialysis Nephrology consulted,following Acute on Chronic diastolic CHF exacerbation Secondary to volume overload Acute resp fauilure on Oxygen On supplemental Oxygen May need Oxygen on dc End stage renal disease on dialysis Nephrology following T2DM (type 2 diabetes mellitus) Continue continue coverage Check hemoglobin A1c Hypertension Continue antihypertensives Hyponatremia Secondary to increased volume--dilutional DVT prophylaxis On heparin and GI prophylaxis Fever to r/o Covid- 19 01/11 Covid 19 survey testing sent, nasal swab done 01/10 01/12 Patient has acute resp failure. may need Oxygen on dc. awaiting Covid result 01/13 Still has shortness of breath, awaiting Covid test. History Interval history: Patient presented with chest tightness Now Fever, shortness of breath Hospitalist Physical - Physical exam Narrative exam: GEN: Not in acute distress, lying in bed,obese HEENT: Normocephalic, atraumatic, Neck: supple, No JVD Lungs: Clear, no crackles, heart;S1 and S2 reg, no murmurs, rubs or gallop Abd:soft, non tender, non distended, normal bowel sounds Ext: No edema, no clubbing, no cyanosis, Neuro: Awake,alert, has dementia - Constitutional Vitals: Temp Pulse Resp BP Pulse Ox 98.5 F 68 22 131/65 95 01/14/20 11:19 01/14/20 14:00 01/14/20 14:00 01/14/20 11:19 01/14/20 11:19 General appearance: Present: no acute distress SEAN score - Sean Score Age > 65: (1) Yes Aspirin use within the Past 7 Days: (1) Yes 3 or more CAD Risk Factors: (1) Yes 2 or more Angina events in past 24 hrs: (1) Yes Known CAD with more than 50% Stenosis: (0) No Elevated Cardiac Markers: (0) No ST Deviation Greater than 0.5mm: (0) No SEAN Score: 4 Results - Labs CBC & Chem 7: 01/13/20 06:11 01/13/20 06:11 Labs: Laboratory Last Values WBC 3.1 K/mm3 (4.5-11.0) L 01/13/20 06:11 RBC 3.25 M/mm3 (3.65-5.03) L 01/13/20 06:11 Hgb 9.8 gm/dl (10.1-14.3) L 01/13/20 06:11 Hct 30.7 % (30.3-42.9) 01/13/20 06:11 MCV 94 fl (79-97) 01/13/20 06:11 MCH 30 pg (28-32) 01/13/20 06:11 MCHC 32 % (30-34) 01/13/20 06:11 RDW 17.2 % (13.2-15.2) H 01/13/20 06:11 Plt Count 136 K/mm3 (140-440) L 01/13/20 06:11 Lymph % (Auto) 8.9 % (13.4-35.0) L 01/10/20 06:54 [place] % (Auto) 11.5 % (0.0-7.3) H 01/10/20 06:54 Eos % (Auto) 0.0 % (0.0-4.3) 01/10/20 06:54 Baso % (Auto) 0.5 % (0.0-1.8) 01/10/20 06:54 Lymph # 0.3 K/mm3 (1.2-5.4) L 01/10/20 06:54 [place] # 0.4 K/mm3 (0.0-0.8) 01/10/20 06:54 Eos # 0.0 K/mm3 (0.0-0.4) 01/10/20 06:54 Baso # 0.0 K/mm3 (0.0-0.1) 01/10/20 06:54 Seg Neutrophils % 79.1 % (40.0-70.0) H 01/10/20 06:54 Seg Neutrophils # 2.6 K/mm3 (1.8-7.7) 01/10/20 06:54 PT 15.6 Sec. (12.2-14.9) H 01/09/20 12:55 INR 1.22 (0.87-1.13) H 01/09/20 12:55 APTT 31.5 Sec. (24.2-36.6) 01/09/20 12:55 Sodium 135 mmol/L (137-145) L 01/13/20 06:11 Potassium 4.3 mmol/L (3.6-5.0) 01/13/20 06:11 Chloride 93.4 mmol/L (98-107) L 01/13/20 06:11 Carbon Dioxide 23 mmol/L (22-30) 01/13/20 06:11 Anion Gap 23 mmol/L 01/13/20 06:11 BUN 19 mg/dL (7-17) H 01/13/20 06:11 Creatinine 4.5 mg/dL (0.7-1.2) H 01/13/20 06:11 Estimated GFR 12 ml/min 01/13/20 06:11 BUN/Creatinine Ratio 4 % 01/13/20 06:11 Glucose 120 mg/dL (65-100) H 01/13/20 06:11 POC Glucose 101 (70-105) 01/14/20 16:51 Hemoglobin A1c 5.0 % (4-6) 01/10/20 06:54 Calcium 7.8 mg/dL (8.4-10.2) L 01/13/20 06:11 Phosphorus 3.30 mg/dL (2.5-4.5) 01/12/20 16:01 Magnesium 2.00 mg/dL (1.7-2.3) 01/13/20 06:11 Total Bilirubin 0.30 mg/dL (0.1-1.2) 01/10/20 06:54 AST 30 units/L (5-40) 01/10/20 06:54 ALT 24 units/L (7-56) 01/10/20 06:54 Alkaline Phosphatase 148 units/L (35-129) H 01/10/20 06:54 Troponin T 0.315 ng/mL (0.00-0.029) H* 01/10/20 06:54 NT-Pro-B Natriuret Pep 78389 pg/mL (0-900) H 01/09/20 12:55 Total Protein 5.4 g/dL (6.3-8.2) L 01/10/20 06:54 Albumin 2.7 g/dL (3.9-5) L 01/10/20 06:54 Albumin/Globulin Ratio 1.0 % 01/10/20 06:54 Triglycerides 82 mg/dL (2-149) 01/09/20 12:55 Cholesterol 123 mg/dL (50-199) 01/09/20 12:55 LDL Cholesterol Direct 66 mg/dL (50-130) 01/09/20 12:55 HDL Cholesterol 47 mg/dL (40-59) 01/09/20 12:55 Cholesterol/HDL Ratio 2.61 % 01/09/20 12:55 Microbiology: Microbiology 01/10/20 19:55 Peripheral/Venous Blood Culture - Preliminary NO GROWTH AFTER 72 HOURS 01/10/20 19:55 Peripheral/Venous Blood Culture - Preliminary NO GROWTH AFTER 72 HOURS Pleitez/IV: Voiding Method Toilet IV Catheter Type [Left INT / Saline Lock External Jugular] Active Medications - Current Medications Current Medications: Generic Name Dose Route Start Last Admin Trade Name Freq PRN Reason Stop Dose Admin Acetaminophen 650 mg 01/09/20 16:33 01/12/20 18:23 Tylenol PO 650 mg Q4H PRN Administration Pain MILD(1-3)/Fever >100.5/MEANS Acetaminophen/Hydrocodone Bitart 1 each 01/09/20 16:15 01/13/20 23:05 [place] 5/325 PO 1 each Q6HR PRN Administration Pain, Moderate (4-6) Amlodipine Besylate 10 mg 01/09/20 17:00 01/14/20 09:55 Amlodipine PO 10 mg DAILY PHILLY Administration Atorvastatin Calcium 40 mg 01/09/20 22:00 01/13/20 22:03 Lipitor PO 40 mg QHS PHILLY Administration Cyclobenzaprine HCl 5 mg 01/09/20 16:27 01/10/20 23:17 Flexeril PO 5 mg QHS PRN Administration Muscle Spasm Diphenhydramine HCl 25 mg 01/09/20 16:15 01/12/20 00:50 Benadryl PO 25 mg Q8HR PRN Administration Itching Duloxetine HCl 30 mg 01/09/20 17:00 01/14/20 09:55 Cymbalta PO 30 mg QDAY PHILLY Administration Famotidine 20 mg 01/09/20 22:00 01/14/20 09:55 Pepcid PO 20 mg DAILY PHILLY Administration Heparin Sodium (Porcine) 5,000 unit 01/10/20 10:00 01/14/20 09:56 Heparin SUB-Q 5,000 unit Q12HR PHILLY Administration Sodium Chloride 100 mls @ 999 mls/hr 01/09/20 19:13 Nacl 0.9% IV SILVERIO PRN Hypotension Levofloxacin/Dextrose 500 mg in 100 mls @ 100 mls/hr 01/14/20 09:00 01/14/20 09:54 Levaquin 500mg/100ml IV 01/18/20 12:59 100 mls/hr Q48H PHILLY Administration Labetalol HCl 100 mg 01/09/20 17:00 01/14/20 10:01 Labetalol PO 100 mg Q8H PHILLY Administration Magnesium Oxide 400 mg 01/09/20 17:00 01/14/20 09:55 Mag-Ox PO 400 mg QDAY [facility] Administration Ondansetron HCl 4 mg 01/09/20 16:33 01/13/20 02:50 Zofran IV 4 mg Q8H PRN Administration Nausea And Vomiting Oxycodone/Acetaminophen 1 tab 01/09/20 16:43 01/09/20 17:12 Percocet 5/325 PO 1 tab Q6H PRN Administration Pain, Moderate (4-6) Sodium Chloride 10 ml 01/09/20 22:00 01/14/20 09:56 Sodium Chloride Flush Syringe 10 Ml IV 10 ml BID PHILLY Administration Sodium Chloride 10 ml 01/09/20 16:33 Sodium Chloride Flush Syringe 10 Ml IV PRN PRN LINE FLUSH Tramadol HCl 50 mg 01/09/20 16:15 Ultram PO Q6HR PRN Pain, Moderate (4-6) Valsartan 80 mg 01/10/20 10:00 01/14/20 10:01 Diovan PO 80 mg DAILY PHILLY Administration
[2020-01-14] MEDS: HYDROcodone/ACETAMINOPHEN 5-325 MG TAB PO PRN (21:48)
[2020-01-15] MEDS: HYDROcodone/ACETAMINOPHEN 5-325 MG TAB PO PRN (06:21)
[2020-01-15] MEDS: amLODIPine 10 MG TAB PO SCH (10:00)
[2020-01-15] MEDS: HEPARIN 5,000 UNIT/1 ML VIAL SUB-Q SCH ×2 (10:00→21:14)
[2020-01-15] MEDS: DULoxetine 30 MG CAP PO SCH (10:17)
[2020-01-15] MEDS: MAGNESIUM OXIDE 400 MG TAB PO SCH (10:17)
[2020-01-15] MEDS: FAMOTIDINE 20 MG TAB PO SCH (10:17)
[2020-01-15] MEDS: VALSARTAN 40 MG TAB PO SCH (10:18)
--- NOTE | 2020-01-15 14:51 | Progress Note ---
Assessment and Plan Assessment and plan: Chest pain Stress test neg for ischemia GERD and costochondritis in differential diagnosis Volume overload s/p hemodialysis Nephrology consulted,following Acute on Chronic diastolic CHF exacerbation Secondary to volume overload Acute resp fauilure on Oxygen On supplemental Oxygen May need Oxygen on dc End stage renal disease on dialysis Nephrology following T2DM (type 2 diabetes mellitus) Continue continue coverage Check hemoglobin A1c Hypertension Continue antihypertensives Hyponatremia Secondary to increased volume--dilutional DVT prophylaxis On heparin and GI prophylaxis Fever to r/o Covid- 19 01/11 Covid 19 survey testing sent, nasal swab done 01/10 01/12 Patient has acute resp failure. may need Oxygen on dc. awaiting Covid result 01/13 Still has shortness of breath, awaiting Covid test. 01/14 Pt still dyspneic, await covid testing, Pulse ox 83% History Interval history: No new issues overnight Hospitalist Physical - Constitutional Vitals: Temp Pulse Resp BP Pulse Ox 99.2 F 66 22 114/50 83 L 01/15/20 06:14 01/15/20 06:14 01/15/20 06:14 01/15/20 06:14 01/15/20 06:14 General appearance: Present: no acute distress - EENT Eyes: Present: PERRL, EOM intact ENT: hearing intact, clear oral mucosa, dentition normal - Neck Neck: Present: supple, normal ROM - Respiratory Respiratory effort: normal Respiratory: bilateral: CTA - Cardiovascular Rhythm: regular Heart Sounds: Present: S1 & S2. Absent: gallop, rub - Extremities Extremities: no ischemia, No edema, Full ROM - Abdominal General gastrointestinal: soft, non-tender, non-distended, normal bowel sounds - Integumentary Integumentary: Present: clear, warm, dry - Neurologic Neurologic: CNII-XII intact, moves all extremities SEAN score - Sean Score Age > 65: (1) Yes Aspirin use within the Past 7 Days: (1) Yes 3 or more CAD Risk Factors: (1) Yes 2 or more Angina events in past 24 hrs: (1) Yes Known CAD with more than 50% Stenosis: (0) No Elevated Cardiac Markers: (0) No ST Deviation Greater than 0.5mm: (0) No SEAN Score: 4 Results - Labs CBC & Chem 7: 01/13/20 06:11 01/13/20 06:11 Labs: Laboratory Last Values WBC 3.1 K/mm3 (4.5-11.0) L 01/13/20 06:11 RBC 3.25 M/mm3 (3.65-5.03) L 01/13/20 06:11 Hgb 9.8 gm/dl (10.1-14.3) L 01/13/20 06:11 Hct 30.7 % (30.3-42.9) 01/13/20 06:11 MCV 94 fl (79-97) 01/13/20 06:11 MCH 30 pg (28-32) 01/13/20 06:11 MCHC 32 % (30-34) 01/13/20 06:11 RDW 17.2 % (13.2-15.2) H 01/13/20 06:11 Plt Count 136 K/mm3 (140-440) L 01/13/20 06:11 Lymph % (Auto) 8.9 % (13.4-35.0) L 01/10/20 06:54 [place] % (Auto) 11.5 % (0.0-7.3) H 01/10/20 06:54 Eos % (Auto) 0.0 % (0.0-4.3) 01/10/20 06:54 Baso % (Auto) 0.5 % (0.0-1.8) 01/10/20 06:54 Lymph # 0.3 K/mm3 (1.2-5.4) L 01/10/20 06:54 [place] # 0.4 K/mm3 (0.0-0.8) 01/10/20 06:54 Eos # 0.0 K/mm3 (0.0-0.4) 01/10/20 06:54 Baso # 0.0 K/mm3 (0.0-0.1) 01/10/20 06:54 Seg Neutrophils % 79.1 % (40.0-70.0) H 01/10/20 06:54 Seg Neutrophils # 2.6 K/mm3 (1.8-7.7) 01/10/20 06:54 PT 15.6 Sec. (12.2-14.9) H 01/09/20 12:55 INR 1.22 (0.87-1.13) H 01/09/20 12:55 APTT 31.5 Sec. (24.2-36.6) 01/09/20 12:55 Sodium 135 mmol/L (137-145) L 01/13/20 06:11 Potassium 4.3 mmol/L (3.6-5.0) 01/13/20 06:11 Chloride 93.4 mmol/L (98-107) L 01/13/20 06:11 Carbon Dioxide 23 mmol/L (22-30) 01/13/20 06:11 Anion Gap 23 mmol/L 01/13/20 06:11 BUN 19 mg/dL (7-17) H 01/13/20 06:11 Creatinine 4.5 mg/dL (0.7-1.2) H 01/13/20 06:11 Estimated GFR 12 ml/min 01/13/20 06:11 BUN/Creatinine Ratio 4 % 01/13/20 06:11 Glucose 120 mg/dL (65-100) H 01/13/20 06:11 POC Glucose 101 (70-105) 01/14/20 16:51 Hemoglobin A1c 5.0 % (4-6) 01/10/20 06:54 Calcium 7.8 mg/dL (8.4-10.2) L 01/13/20 06:11 Phosphorus 3.30 mg/dL (2.5-4.5) 01/12/20 16:01 Magnesium 2.00 mg/dL (1.7-2.3) 01/13/20 06:11 Total Bilirubin 0.30 mg/dL (0.1-1.2) 01/10/20 06:54 AST 30 units/L (5-40) 01/10/20 06:54 ALT 24 units/L (7-56) 01/10/20 06:54 Alkaline Phosphatase 148 units/L (35-129) H 01/10/20 06:54 Troponin T 0.315 ng/mL (0.00-0.029) H* 01/10/20 06:54 NT-Pro-B Natriuret Pep 53451 pg/mL (0-900) H 01/09/20 12:55 Total Protein 5.4 g/dL (6.3-8.2) L 01/10/20 06:54 Albumin 2.7 g/dL (3.9-5) L 01/10/20 06:54 Albumin/Globulin Ratio 1.0 % 01/10/20 06:54 Triglycerides 82 mg/dL (2-149) 01/09/20 12:55 Cholesterol 123 mg/dL (50-199) 01/09/20 12:55 LDL Cholesterol Direct 66 mg/dL (50-130) 01/09/20 12:55 HDL Cholesterol 47 mg/dL (40-59) 01/09/20 12:55 Cholesterol/HDL Ratio 2.61 % 01/09/20 12:55 Microbiology: Microbiology 01/10/20 19:55 Peripheral/Venous Blood Culture - Preliminary NO GROWTH AFTER 4 DAYS 01/10/20 19:55 Peripheral/Venous Blood Culture - Preliminary NO GROWTH AFTER 4 DAYS Pleitez/IV: Voiding Method Toilet IV Catheter Type [Right Peripheral IV External Jugular] IV Catheter Type [Left INT / Saline Lock External Jugular] Active Medications - Current Medications Current Medications: Generic Name Dose Route Start Last Admin Trade Name Freq PRN Reason Stop Dose Admin Acetaminophen 650 mg 01/09/20 16:33 01/12/20 18:23 Tylenol PO 650 mg Q4H PRN Administration Pain MILD(1-3)/Fever >100.5/MEANS Acetaminophen/Hydrocodone Bitart 1 each 01/09/20 16:15 01/15/20 06:21 [place] 5/325 PO 1 each Q6HR PRN Administration Pain, Moderate (4-6) Amlodipine Besylate 10 mg 01/09/20 17:00 01/14/20 09:55 Amlodipine PO 10 mg DAILY PHILLY Administration Atorvastatin Calcium 40 mg 01/09/20 22:00 01/14/20 21:47 Lipitor PO 40 mg QHS PHILLY Administration Cyclobenzaprine HCl 5 mg 01/09/20 16:27 01/10/20 23:17 Flexeril PO 5 mg QHS PRN Administration Muscle Spasm Diphenhydramine HCl 25 mg 01/09/20 16:15 01/12/20 00:50 Benadryl PO 25 mg Q8HR PRN Administration Itching Duloxetine HCl 30 mg 01/09/20 17:00 01/15/20 10:17 Cymbalta PO 30 mg QDAY PHILLY Administration Famotidine 20 mg 01/09/20 22:00 01/15/20 10:17 Pepcid PO 20 mg DAILY PHILLY Administration Heparin Sodium (Porcine) 5,000 unit 01/10/20 10:00 01/14/20 21:47 Heparin SUB-Q 5,000 unit Q12HR PHILLY Administration Sodium Chloride 100 mls @ 999 mls/hr 01/09/20 19:13 Nacl 0.9% IV SILVERIO PRN Hypotension Levofloxacin/Dextrose 500 mg in 100 mls @ 100 mls/hr 01/14/20 09:00 01/14/20 09:54 Levaquin 500mg/100ml IV 01/18/20 12:59 100 mls/hr Q48H PHILLY Administration Labetalol HCl 100 mg 01/09/20 17:00 01/15/20 01:05 Labetalol PO 100 mg Q8H PHILLY Administration Magnesium Oxide 400 mg 01/09/20 17:00 01/15/20 10:17 Mag-Ox PO 400 mg QDAY PHILLY Administration Ondansetron HCl 4 mg 01/09/20 16:33 01/13/20 02:50 Zofran IV 4 mg Q8H PRN Administration Nausea And Vomiting Oxycodone/Acetaminophen 1 tab 01/09/20 16:43 01/09/20 17:12 Percocet 5/325 PO 1 tab Q6H PRN Administration Pain, Moderate (4-6) Sodium Chloride 10 ml 01/09/20 22:00 01/15/20 10:18 Sodium Chloride Flush Syringe 10 Ml IV 10 ml BID PHILLY Administration Sodium Chloride 10 ml 01/09/20 16:33 Sodium Chloride Flush Syringe 10 Ml IV PRN PRN LINE FLUSH Tramadol HCl 50 mg 01/09/20 16:15 Ultram PO Q6HR PRN Pain, Moderate (4-6) Valsartan 80 mg 01/10/20 10:00 01/15/20 10:18 Diovan PO 80 mg DAILY PHILLY Administration
--- NOTE | 2020-01-15 15:37 | Progress Note ---
Assessment and Plan - Patient Problems (1) End stage renal disease on dialysis Current Visit: No Status: Chronic Plan to address problem: continue on TTS HD schedule (2) Volume overload Current Visit: Yes Status: Acute Qualifiers: Plan to address problem: Goal is to optimize volume status with adequate fluid removal with HD. Evaluate daily for need of extra isolated UF sessions (3) Bilateral pulmonary infiltrates on chest x-ray Current Visit: Yes Status: Acute Plan to address problem: improved on HD (4) Hyponatremia Current Visit: No Status: Acute Plan to address problem: Possibly in the setting of fluid overload. improving with optimizing volume status with HD. 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 (7) Anemia in CKD (chronic kidney disease) Current Visit: Yes Status: Acute Qualifiers: Chronic kidney disease stage: on chronic dialysis Qualified Code(s): N18.6 - End stage renal disease; D63.1 - Anemia in chronic kidney disease; Z99.2 - Dependence on renal dialysis Plan to address problem: CLARITA therapy with HD. (8) Secondary hyperparathyroidism (of renal origin) Current Visit: Yes Status: Chronic Plan to address problem: Continue on current outpatient phos binder regimen. Subjective Date of service: 01/15/20 Principal diagnosis: Fluid overload Interval history: patient awake, alert, in no acute respiratory distress, denies SOB, CP, fever, chills n/v/d overnight Objective - Vital Signs Vital signs: Vital Signs - 12hr 01/15/20 01/15/20 04:00 06:14 Temperature 99.2 F Pulse Rate 63 66 Respiratory 22 Rate Blood Pressure 114/50 O2 Sat by Pulse 83 L Oximetry - General Appearance General appearance: well-developed, well-nourished, appears stated age EENT: ATNC, PERRL, mucous membranes moist Neck: no JVD Respiratory: Present: Decreased Breath Sounds Cardiology: regular, S1S2 Gastrointestinal: normoactive bowel sounds Integumentary: no rash, other (no edema ) Neurologic: no focal deficit, alert and oriented x3, strength 5/5, CN 3-12 intact Psychiatric: mood/affect appropriate, cooperative - Lab 01/13/20 06:11 01/13/20 06:11 Most recent lab results Calcium 7.8 mg/dL (8.4-10.2) L 01/13/20 06:11 Phosphorus 3.30 mg/dL (2.5-4.5) 01/12/20 16:01 Magnesium 2.00 mg/dL (1.7-2.3) 01/13/20 06:11 Medications & Allergies - Medications Allergies/Adverse Reactions: Allergies cheese Allergy (Mild, Verified 12/20/19 10:19) Itching iodine Allergy (Mild, Verified 12/20/19 10:16) Anaphylaxis clonidine Allergy (Verified 12/19/19 04:13) Anaphylaxis shellfish derived Adverse Reaction (Verified 12/19/19 04:13) Angioedema Home Medications: Home Medications Medication Instructions Recorded Confirmed Last Taken Type Atorvastatin [Lipitor] 40 mg PO DAILY 11/06/19 01/13/20 01/02/20 10:00 History Acetaminophen [Acetaminophen 8 650 mg PO Q8H PRN #30 tablet.er 11/21/19 01/13/20 01/03/20 22:00 Rx Hour] Cyclobenzaprine HCl [Flexeril 5 MG 5 mg PO QHS PRN #20 tab 11/21/19 01/13/20 01/01/20 22:00 Rx TAB] HYDROcodone/APAP 5-325 [[place] 1 each PO Q6HR PRN #18 tablet 12/13/19 01/13/20 01/01/20 22:00 Rx 5-325 mg TAB] amLODIPine 10 mg PO DAILY 90 Days #90 tab 12/18/19 01/13/20 01/01/20 10:00 Rx Ibuprofen 800 mg PO TID 12/19/19 01/13/20 01/02/20 22:00 History Magnesium Oxide [Mag-Ox] 400 mg PO QDAY 12/19/19 01/13/20 01/03/20 10:00 History diphenhydrAMINE [Benadryl CAP] 25 mg PO Q8HR PRN 12/19/19 01/13/20 01/03/20 21:00 History labetaloL [Labetalol 100mg TAB] 100 mg PO Q8H #90 tablet 12/21/19 01/13/20 01/02/20 10:00 Rx traMADoL [Ultram 50 MG tab] 50 mg PO Q6HR PRN #20 tablet 12/29/19 01/13/20 12/31/19 10:00 Rx DULoxetine [Cymbalta] 30 mg PO QDAY #30 capsule 01/04/20 01/13/20 Unknown Rx Valsartan [Diovan] 80 mg PO DAILY #30 tablet 01/04/20 01/13/20 Unknown Rx Active Medications: Generic Name Dose Route Start Last Admin Trade Name Freq PRN Reason Stop Dose Admin Acetaminophen 650 mg 01/09/20 16:33 01/12/20 18:23 Tylenol PO 650 mg Q4H PRN Administration Pain MILD(1-3)/Fever >100.5/MEANS Acetaminophen/Hydrocodone Bitart 1 each 01/09/20 16:15 01/15/20 06:21 [place] 5/325 PO 1 each Q6HR PRN Administration Pain, Moderate (4-6) Amlodipine Besylate 10 mg 01/09/20 17:00 01/14/20 09:55 Amlodipine PO 10 mg DAILY PHILLY Administration Atorvastatin Calcium 40 mg 01/09/20 22:00 01/14/20 21:47 Lipitor PO 40 mg QHS PHILLY Administration Cyclobenzaprine HCl 5 mg 01/09/20 16:27 01/10/20 23:17 Flexeril PO 5 mg QHS PRN Administration Muscle Spasm Diphenhydramine HCl 25 mg 01/09/20 16:15 01/12/20 00:50 Benadryl PO 25 mg Q8HR PRN Administration Itching Duloxetine HCl 30 mg 01/09/20 17:00 01/15/20 10:17 Cymbalta PO 30 mg QDAY PHILLY Administration Famotidine 20 mg 01/09/20 22:00 01/15/20 10:17 Pepcid PO 20 mg DAILY PHILLY Administration Heparin Sodium (Porcine) 5,000 unit 01/10/20 10:00 01/14/20 21:47 Heparin SUB-Q 5,000 unit Q12HR PHILLY Administration Sodium Chloride 100 mls @ 999 mls/hr 01/09/20 19:13 Nacl 0.9% IV SILVERIO PRN Hypotension Levofloxacin/Dextrose 500 mg in 100 mls @ 100 mls/hr 01/14/20 09:00 01/14/20 09:54 Levaquin 500mg/100ml IV 01/18/20 12:59 100 mls/hr Q48H PHILLY Administration Labetalol HCl 100 mg 01/09/20 17:00 01/15/20 01:05 Labetalol PO 100 mg Q8H PHILLY Administration Magnesium Oxide 400 mg 01/09/20 17:00 01/15/20 10:17 Mag-Ox PO 400 mg QDAY PHILLY Administration Ondansetron HCl 4 mg 01/09/20 16:33 01/13/20 02:50 Zofran IV 4 mg Q8H PRN Administration Nausea And Vomiting Oxycodone/Acetaminophen 1 tab 01/09/20 16:43 01/09/20 17:12 Percocet 5/325 PO 1 tab Q6H PRN Administration Pain, Moderate (4-6) Sodium Chloride 10 ml 01/09/20 22:00 01/15/20 10:18 Sodium Chloride Flush Syringe 10 Ml IV 10 ml BID PHILLY Administration Sodium Chloride 10 ml 01/09/20 16:33 Sodium Chloride Flush Syringe 10 Ml IV PRN PRN LINE FLUSH Tramadol HCl 50 mg 01/09/20 16:15 Ultram PO Q6HR PRN Pain, Moderate (4-6) Valsartan 80 mg 01/10/20 10:00 01/15/20 10:18 Diovan PO 80 mg DAILY PHILLY Administration
[2020-01-16] MEDS: oxyCODONE /ACETAMINOPHEN 5-325MG TAB PO PRN (05:43)
[2020-01-16] MEDS: HYDROcodone/ACETAMINOPHEN 5-325 MG TAB PO PRN ×2 (08:31→21:40)
[2020-01-16] MEDS: amLODIPine 10 MG TAB PO SCH (10:50)
[2020-01-16] MEDS: VALSARTAN 40 MG TAB PO SCH (10:50)
[2020-01-16] MEDS: MAGNESIUM OXIDE 400 MG TAB PO SCH (10:51)
[2020-01-16] MEDS: DULoxetine 30 MG CAP PO SCH (10:51)
[2020-01-16] MEDS: FAMOTIDINE 20 MG TAB PO SCH (10:52)
[2020-01-16] MEDS: HEPARIN 5,000 UNIT/1 ML VIAL SUB-Q SCH ×2 (10:52→21:40)
[2020-01-16] MEDS ORDERED: traMADol 50 MG TAB PO PRN (13:07)
--- NOTE | 2020-01-16 13:09 | Progress Note ---
Assessment and Plan - Patient Problems (1) Altered mental status Current Visit: Yes Status: Acute Plan to address problem: pt received dilauded this AM, arousable to pain stimuli however somnolent, confused, disoriented, stat ABG ordered. (2) End stage renal disease on dialysis Current Visit: No Status: Chronic Plan to address problem: continue on TTS HD schedule (3) Volume overload Current Visit: Yes Status: Acute Qualifiers: Plan to address problem: Goal is to optimize volume status with adequate fluid removal with HD. Evaluate daily for need of extra isolated UF sessions (4) Bilateral pulmonary infiltrates on chest x-ray Current Visit: Yes Status: Acute Plan to address problem: improved on HD (5) Hyponatremia Current Visit: No Status: Acute Plan to address problem: Possibly in the setting of fluid overload. improving with optimizing volume status with HD. 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 (8) Anemia in CKD (chronic kidney disease) Current Visit: Yes Status: Acute Qualifiers: Chronic kidney disease stage: on chronic dialysis Qualified Code(s): N18.6 - End stage renal disease; D63.1 - Anemia in chronic kidney disease; Z99.2 - Dependence on renal dialysis Plan to address problem: CLARITA therapy with HD. (9) Secondary hyperparathyroidism (of renal origin) Current Visit: Yes Status: Chronic Plan to address problem: Continue on current outpatient phos binder regimen. Subjective Date of service: 01/16/20 Principal diagnosis: Fluid overload Interval history: patient somnolent, wakes up on sternal rub, but confused, disoriented, on NRB mask stat ABG ordered Objective - Vital Signs Vital signs: Vital Signs - 12hr 01/16/20 01/16/20 01/16/20 05:18 08:32 10:46 Temperature 98.2 F Pulse Rate 75 85 Respiratory 16 Rate Blood Pressure 134/61 134/61 O2 Sat by Pulse 97 95 Oximetry 01/16/20 10:50 Temperature Pulse Rate 85 Respiratory Rate Blood Pressure 134/61 O2 Sat by Pulse Oximetry - General Appearance General appearance: well-developed, appears stated age, fatigue EENT: ATNC, PERRL, mucous membranes moist Neck: no JVD Respiratory: Present: Decreased Breath Sounds Cardiology: regular, S1S2 Gastrointestinal: normoactive bowel sounds Integumentary: no rash Neurologic: confused, disoriented - Lab 01/13/20 06:11 01/13/20 06:11 Most recent lab results Calcium 7.8 mg/dL (8.4-10.2) L 01/13/20 06:11 Phosphorus 3.30 mg/dL (2.5-4.5) 01/12/20 16:01 Magnesium 2.00 mg/dL (1.7-2.3) 01/13/20 06:11 Medications & Allergies - Medications Allergies/Adverse Reactions: Allergies cheese Allergy (Mild, Verified 12/20/19 10:19) Itching iodine Allergy (Mild, Verified 12/20/19 10:16) Anaphylaxis clonidine Allergy (Verified 12/19/19 04:13) Anaphylaxis shellfish derived Adverse Reaction (Verified 12/19/19 04:13) Angioedema Home Medications: Home Medications Medication Instructions Recorded Confirmed Last Taken Type Atorvastatin [Lipitor] 40 mg PO DAILY 11/06/19 01/13/20 01/02/20 10:00 History Acetaminophen [Acetaminophen 8 650 mg PO Q8H PRN #30 tablet.er 11/21/19 01/13/20 01/03/20 22:00 Rx Hour] Cyclobenzaprine HCl [Flexeril 5 MG 5 mg PO QHS PRN #20 tab 11/21/19 01/13/20 22:00 Rx TAB] HYDROcodone/APAP 5-325 [[place] 1 each PO Q6HR PRN #18 tablet 12/13/19 01/13/20 01/01/20 22:00 Rx 5-325 mg TAB] amLODIPine 10 mg PO DAILY 90 Days #90 tab 12/18/19 01/13/20 01/01/20 10:00 Rx Ibuprofen 800 mg PO TID 12/19/19 01/13/20 01/02/20 22:00 History Magnesium Oxide [Mag-Ox] 400 mg PO QDAY 12/19/19 01/13/20 01/03/20 10:00 History diphenhydrAMINE [Benadryl CAP] 25 mg PO Q8HR PRN 12/19/19 01/13/20 01/03/20 21:00 History labetaloL [Labetalol 100mg TAB] 100 mg PO Q8H #90 tablet 12/21/19 01/13/20 01/02/20 10:00 Rx traMADoL [Ultram 50 MG tab] 50 mg PO Q6HR PRN #20 tablet 12/29/19 01/13/20 12/31/19 10:00 Rx DULoxetine [Cymbalta] 30 mg PO QDAY #30 capsule 01/04/20 01/13/20 Unknown Rx Valsartan [Diovan] 80 mg PO DAILY #30 tablet 01/04/20 01/13/20 Unknown Rx Active Medications: Generic Name Dose Route Start Last Admin Trade Name Freq PRN Reason Stop Dose Admin Acetaminophen 650 mg 01/09/20 16:33 01/12/20 18:23 Tylenol PO 650 mg Q4H PRN Administration Pain MILD(1-3)/Fever >100.5/MEANS Acetaminophen/Hydrocodone Bitart 1 each 01/09/20 16:15 01/16/20 08:31 [place] 5/325 PO 1 each Q6HR PRN Administration Pain, Moderate (4-6) Amlodipine Besylate 10 mg 01/09/20 17:00 01/16/20 10:50 Amlodipine PO 10 mg DAILY PHILLY Administration Atorvastatin Calcium 40 mg 01/09/20 22:00 01/15/20 21:13 Lipitor PO 40 mg QHS PHILLY Administration Cyclobenzaprine HCl 5 mg 01/09/20 16:27 01/10/20 23:17 Flexeril PO 5 mg QHS PRN Administration Muscle Spasm Diphenhydramine HCl 25 mg 01/09/20 16:15 01/12/20 00:50 Benadryl PO 25 mg Q8HR PRN Administration Itching Duloxetine HCl 30 mg 01/09/20 17:00 01/16/20 10:51 Cymbalta PO 30 mg QDAY PHILLY Administration Famotidine 20 mg 01/09/20 22:00 01/16/20 10:52 Pepcid PO 20 mg DAILY PHILLY Administration Heparin Sodium (Porcine) 5,000 unit 01/10/20 10:00 01/16/20 10:52 Heparin SUB-Q 5,000 unit Q12HR PHILLY Administration Sodium Chloride 100 mls @ 999 mls/hr 01/09/20 19:13 Nacl 0.9% IV SILVERIO PRN Hypotension Levofloxacin/Dextrose 500 mg in 100 mls @ 100 mls/hr 01/14/20 09:00 01/16/20 08:33 Levaquin 500mg/100ml IV 01/18/20 12:59 100 mls/hr Q48H PHILLY Administration Labetalol HCl 100 mg 01/09/20 17:00 01/16/20 08:32 Labetalol PO 100 mg Q8H PHILLY Administration Magnesium Oxide 400 mg 01/09/20 17:00 01/16/20 10:51 Mag-Ox PO 400 mg QDAY PHILLY Administration Ondansetron HCl 4 mg 01/09/20 16:33 01/13/20 02:50 Zofran IV 4 mg Q8H PRN Administration Nausea And Vomiting Oxycodone/Acetaminophen 1 tab 01/09/20 16:43 01/16/20 05:43 Percocet 5/325 PO 1 tab Q6H PRN Administration Pain, Moderate (4-6) Sodium Chloride 10 ml 01/09/20 22:00 01/16/20 10:52 Sodium Chloride Flush Syringe 10 Ml IV 10 ml BID PHILLY Administration Sodium Chloride 10 ml 01/09/20 16:33 Sodium Chloride Flush Syringe 10 Ml IV PRN PRN LINE FLUSH Tramadol HCl 50 mg 01/16/20 13:07 Ultram PO Q12HR PRN Pain, Moderate (4-6) Valsartan 80 mg 01/10/20 10:00 01/16/20 10:50 Diovan PO 80 mg DAILY PHILLY Administration
[2020-01-16 14:23] LABS: ABG Base Excess 4.6 mmol/L (-2.0-3.0); ABG HCO3 30.5 mmol/L (20.0-26.0); ABG Methemoglobin 0.6 % (0.0-1.5); ABG Oxygen Saturation 81.9 % (95.0-99.0); ABG PCO2 52.3 mm Hg; ABG PH 7.384 pH Units (7.350-7.450); ABG PO2 48.4 mm Hg (80.0-90.0)
[2020-01-16 17:14] LABS: C-Reactive Protein 24.1 mg/dL (0.00-1.30)
[2020-01-17] MEDS: HEPARIN 5,000 UNIT/1 ML VIAL SUB-Q SCH ×2 (09:23→23:38)
[2020-01-17] MEDS: FAMOTIDINE 20 MG TAB PO SCH (09:23)
[2020-01-17] MEDS: MAGNESIUM OXIDE 400 MG TAB PO SCH (09:24)
[2020-01-17] MEDS: amLODIPine 10 MG TAB PO SCH (09:24)
[2020-01-17] MEDS: VALSARTAN 40 MG TAB PO SCH (09:24)
[2020-01-17] MEDS: DULoxetine 30 MG CAP PO SCH (09:24)
--- NOTE | 2020-01-17 10:25 | Progress Note ---
Assessment and Plan Assessment and plan: Chest pain Stress test neg for ischemia GERD and costochondritis in differential diagnosis Volume overload s/p hemodialysis Nephrology consulted,following Acute on Chronic diastolic CHF exacerbation Secondary to volume overload Acute resp fauilure on Oxygen On supplemental Oxygen May need Oxygen on dc End stage renal disease on dialysis Nephrology following T2DM (type 2 diabetes mellitus) Continue continue coverage Check hemoglobin A1c Hypertension Continue antihypertensives Hyponatremia Secondary to increased volume--dilutional DVT prophylaxis On heparin and GI prophylaxis Fever to r/o Covid- 19 01/11 Covid 19 survey testing sent, nasal swab done 01/10 01/12 Patient has acute resp failure. may need Oxygen on dc. awaiting Covid result 01/13 Still has shortness of breath, awaiting Covid test. 01/14 Pt still dyspneic, await covid testing, Pulse ox 83% 01/16/2020. Patient remains dyspneic. Follow-up COVID testing. 01/17/2020. Patient still requiring large amounts of oxygen. Patient currently with 15 L satting at 95%. Patient with increased inflammatory markers. Follow- up chest x-ray today. History Interval history: No new issues overnight Hospitalist Physical - Constitutional Vitals: Temp Pulse Resp BP Pulse Ox 97.5 F L 69 18 129/73 95 01/17/20 09:45 01/17/20 10:00 01/17/20 09:45 01/17/20 10:00 01/17/20 04:45 General appearance: Present: no acute distress - EENT Eyes: Present: PERRL, EOM intact ENT: hearing intact, clear oral mucosa, dentition normal - Neck Neck: Present: supple, normal ROM - Respiratory Respiratory effort: normal Respiratory: bilateral: CTA - Cardiovascular Rhythm: regular Heart Sounds: Present: S1 & S2. Absent: gallop, rub - Extremities Extremities: no ischemia, No edema, Full ROM - Abdominal General gastrointestinal: soft, non-tender, non-distended, normal bowel sounds - Integumentary Integumentary: Present: clear, warm, dry - Neurologic Neurologic: CNII-XII intact, moves all extremities SEAN score - Sean Score Age > 65: (1) Yes Aspirin use within the Past 7 Days: (1) Yes 3 or more CAD Risk Factors: (1) Yes 2 or more Angina events in past 24 hrs: (1) Yes Known CAD with more than 50% Stenosis: (0) No Elevated Cardiac Markers: (0) No ST Deviation Greater than 0.5mm: (0) No SEAN Score: 4 Results - Labs CBC & Chem 7: 01/13/20 06:11 01/13/20 06:11 Labs: Laboratory Last Values WBC 3.1 K/mm3 (4.5-11.0) L 01/13/20 06:11 RBC 3.25 M/mm3 (3.65-5.03) L 01/13/20 06:11 Hgb 9.8 gm/dl (10.1-14.3) L 01/13/20 06:11 Hct 30.7 % (30.3-42.9) 01/13/20 06:11 MCV 94 fl (79-97) 01/13/20 06:11 MCH 30 pg (28-32) 01/13/20 06:11 MCHC 32 % (30-34) 01/13/20 06:11 RDW 17.2 % (13.2-15.2) H 01/13/20 06:11 Plt Count 136 K/mm3 (140-440) L 01/13/20 06:11 Lymph % (Auto) 8.9 % (13.4-35.0) L 01/10/20 06:54 [place] % (Auto) 11.5 % (0.0-7.3) H 01/10/20 06:54 Eos % (Auto) 0.0 % (0.0-4.3) 01/10/20 06:54 Baso % (Auto) 0.5 % (0.0-1.8) 01/10/20 06:54 Lymph # 0.3 K/mm3 (1.2-5.4) L 01/10/20 06:54 [place] # 0.4 K/mm3 (0.0-0.8) 01/10/20 06:54 Eos # 0.0 K/mm3 (0.0-0.4) 01/10/20 06:54 Baso # 0.0 K/mm3 (0.0-0.1) 01/10/20 06:54 Seg Neutrophils % 79.1 % (40.0-70.0) H 01/10/20 06:54 Seg Neutrophils # 2.6 K/mm3 (1.8-7.7) 01/10/20 06:54 PT 15.6 Sec. (12.2-14.9) H 01/09/20 12:55 INR 1.22 (0.87-1.13) H 01/09/20 12:55 APTT 31.5 Sec. (24.2-36.6) 01/09/20 12:55 D-Dimer 1104.64 ng/mlDDU (0-234) H 01/16/20 15:38 ABG pH 7.384 pH Units (7.350-7.450) 01/16/20 14:11 ABG pCO2 52.3 mm Hg 01/16/20 14:11 ABG pO2 48.4 mm Hg (80.0-90.0) L 01/16/20 14:11 ABG HCO3 30.5 mmol/L (20.0-26.0) H 01/16/20 14:11 ABG O2 Saturation 81.9 % (95.0-99.0) L 01/16/20 14:11 ABG O2 Content 11.8 (0.0-44) 01/16/20 14:11 ABG Base Excess 4.6 mmol/L (-2.0-3.0) H 01/16/20 14:11 ABG Hemoglobin 10.5 gm/dl (12.0-16.0) L 01/16/20 14:11 ABG Carboxyhemoglobin 1.5 % (0.0-5.0) 01/16/20 14:11 ABG Methemoglobin 0.6 % (0.0-1.5) 01/16/20 14:11 Oxyhemoglobin 80.1 % (95.0-99.0) L 01/16/20 14:11 FiO2 100 % 01/16/20 14:11 Sodium 135 mmol/L (137-145) L 01/13/20 06:11 Potassium 4.3 mmol/L (3.6-5.0) 01/13/20 06:11 Chloride 93.4 mmol/L (98-107) L 01/13/20 06:11 Carbon Dioxide 23 mmol/L (22-30) 01/13/20 06:11 Anion Gap 23 mmol/L 01/13/20 06:11 BUN 19 mg/dL (7-17) H 01/13/20 06:11 Creatinine 4.5 mg/dL (0.7-1.2) H 01/13/20 06:11 Estimated GFR 12 ml/min 01/13/20 06:11 BUN/Creatinine Ratio 4 % 01/13/20 06:11 Glucose 120 mg/dL (65-100) H 01/13/20 06:11 POC Glucose 130 (70-105) H 01/16/20 18:11 Hemoglobin A1c 5.0 % (4-6) 01/10/20 06:54 Calcium 7.8 mg/dL (8.4-10.2) L 01/13/20 06:11 Phosphorus 3.30 mg/dL (2.5-4.5) 01/12/20 16:01 Magnesium 2.00 mg/dL (1.7-2.3) 01/13/20 06:11 Ferritin > 2000.0 ng/mL (13.0-400.0) H 01/16/20 15:38 Total Bilirubin 0.30 mg/dL (0.1-1.2) 01/10/20 06:54 AST 30 units/L (5-40) 01/10/20 06:54 ALT 24 units/L (7-56) 01/10/20 06:54 Alkaline Phosphatase 148 units/L (35-129) H 01/10/20 06:54 Lactate Dehydrogenase 690 units/L (91-180) H 01/16/20 15:38 Troponin T 0.315 ng/mL (0.00-0.029) H* 01/10/20 06:54 C-Reactive Protein 24.10 mg/dL (0.00-1.30) H 01/16/20 15:38 NT-Pro-B Natriuret Pep 15262 pg/mL (0-900) H 01/09/20 12:55 Total Protein 5.4 g/dL (6.3-8.2) L 01/10/20 06:54 Albumin 2.7 g/dL (3.9-5) L 01/10/20 06:54 Albumin/Globulin Ratio 1.0 % 01/10/20 06:54 Triglycerides 82 mg/dL (2-149) 01/09/20 12:55 Cholesterol 123 mg/dL (50-199) 01/09/20 12:55 LDL Cholesterol Direct 66 mg/dL (50-130) 01/09/20 12:55 HDL Cholesterol 47 mg/dL (40-59) 01/09/20 12:55 Cholesterol/HDL Ratio 2.61 % 01/09/20 12:55 Miscellaneous Test See scanned result 01/11/20 Unknown Pleitez/IV: Voiding Method Incontinent IV Catheter Type [Right Peripheral IV External Jugular] IV Catheter Type [Left INT / Saline Lock External Jugular] Active Medications - Current Medications Current Medications: Generic Name Dose Route Start Last Admin Trade Name Freq PRN Reason Stop Dose Admin Acetaminophen 650 mg 01/09/20 16:33 01/12/20 18:23 Tylenol PO 650 mg Q4H PRN Administration Pain MILD(1-3)/Fever >100.5/MEANS Acetaminophen/Hydrocodone Bitart 1 each 01/09/20 16:15 01/16/20 21:40 [place] 5/325 PO 1 each Q6HR PRN Administration Pain, Moderate (4-6) Amlodipine Besylate 10 mg 01/09/20 17:00 01/17/20 09:24 Amlodipine PO 10 mg DAILY PHILLY Administration Atorvastatin Calcium 40 mg 01/09/20 22:00 01/16/20 21:40 Lipitor PO 40 mg QHS PHILLY Administration Cyclobenzaprine HCl 5 mg 01/09/20 16:27 01/10/20 23:17 Flexeril PO 5 mg QHS PRN Administration Muscle Spasm Diphenhydramine HCl 25 mg 01/09/20 16:15 01/12/20 00:50 Benadryl PO 25 mg Q8HR PRN Administration Itching Duloxetine HCl 30 mg 01/09/20 17:00 01/17/20 09:24 Cymbalta PO 30 mg QDAY PHILLY Administration Famotidine 20 mg 01/09/20 22:00 01/17/20 09:23 Pepcid PO 20 mg DAILY PHILLY Administration Heparin Sodium (Porcine) 5,000 unit 01/10/20 10:00 01/17/20 09:23 Heparin SUB-Q 5,000 unit Q12HR PHILLY Administration Sodium Chloride 100 mls @ 999 mls/hr 01/09/20 19:13 Nacl 0.9% IV SILVERIO PRN Hypotension Levofloxacin/Dextrose 500 mg in 100 mls @ 100 mls/hr 01/14/20 09:00 01/16/20 08:33 Levaquin 500mg/100ml IV 01/18/20 12:59 100 mls/hr Q48H PHILLY Administration Labetalol HCl 100 mg 01/09/20 17:00 01/17/20 03:15 Labetalol PO Not Given Q8H PHILLY Magnesium Oxide 400 mg 01/09/20 17:00 01/17/20 09:24 Mag-Ox PO 400 mg QDAY PHILLY Administration Ondansetron HCl 4 mg 01/09/20 16:33 01/13/20 02:50 Zofran IV 4 mg Q8H PRN Administration Nausea And Vomiting Oxycodone/Acetaminophen 1 tab 01/09/20 16:43 01/16/20 05:43 Percocet 5/325 PO 1 tab Q6H PRN Administration Pain, Moderate (4-6) Sodium Chloride 10 ml 01/09/20 22:00 01/17/20 09:25 Sodium Chloride Flush Syringe 10 Ml IV 10 ml BID PHILLY Administration Sodium Chloride 10 ml 01/09/20 16:33 Sodium Chloride Flush Syringe 10 Ml IV PRN PRN LINE FLUSH Tramadol HCl 50 mg 01/16/20 13:07 Ultram PO Q12HR PRN Pain, Moderate (4-6) Valsartan 80 mg 01/10/20 10:00 01/17/20 09:24 Diovan PO 80 mg DAILY PHILLY Administration
[2020-01-17] MEDS ORDERED: ZINC SULFATE 220 MG CAP PO SCH (11:00)
[2020-01-17] MEDS: ZINC SULFATE 220 MG CAP PO SCH (14:00)
--- NOTE | 2020-01-17 16:26 | XRay Report ---
CHEST 1 VIEW INDICATION: Pneumonia. COMPARISON: 01/09/2020 FINDINGS: Support devices: Left Uviekd-p-Pyhi remains in good position. Heart: Stable borderline to mild cardiomegaly. Lungs/Pleura: Increased bilateral interstitial infiltrates is appreciated since the previous exam. No consolidation, large pleural effusion or pneumonia pneumothorax. Additional findings: None. IMPRESSION: Increased bilateral interstitial infiltrates. Signer Name: Griffin Brito Jr, MD Signed: 01/17/2020 4:22 PM Workstation Name: [id number]
--- NOTE | 2020-01-17 16:31 | Progress Note ---
Assessment and Plan - Patient Problems (1) End stage renal disease on dialysis Current Visit: No Status: Chronic Plan to address problem: continue on TTS HD schedule (2) Pneumonia due to COVID-19 virus Current Visit: Yes Status: Acute Plan to address problem: COVID19 test returned positive, severely positive inflammatory parameters incl. ferritin> 2000, CRP >24, LDH> 600, d-dimer >1000 putting her at high risk for respiratory decompensation/ARDS. Management as per ID (3) Volume overload Current Visit: Yes Status: Acute Qualifiers: Plan to address problem: Fluid status improved with HD (4) Bilateral pulmonary infiltrates on chest x-ray Current Visit: Yes Status: Acute Plan to address problem: improved on HD. (5) Hyponatremia Current Visit: No Status: Acute Plan to address problem: Possibly in the setting of fluid overload. improving with optimizing volume status with HD. (6) T2DM (type 2 diabetes mellitus) Current Visit: Yes Status: Acute Qualifiers: Diabetes mellitus psychiatry resident insulin use: unspecified psychiatry resident insulin use status Plan to address problem: management as per primary attending (7) Hypertension Current Visit: Yes Status: Chronic Qualifiers: Hypertension type: essential hypertension Qualified Code(s): I10 - Essential (primary) hypertension Plan to address problem: Monitor on current regimen. (8) Anemia in CKD (chronic kidney disease) Current Visit: Yes Status: Acute Qualifiers: Chronic kidney disease stage: on chronic dialysis Qualified Code(s): N18.6 - End stage renal disease; D63.1 - Anemia in chronic kidney disease; Z99.2 - Dependence on renal dialysis Plan to address problem: CLARITA therapy with HD. (9) Secondary hyperparathyroidism (of renal origin) Current Visit: Yes Status: Chronic Plan to address problem: Continue on current outpatient phos binder regimen. (10) Altered mental status Current Visit: Yes Status: Acute Plan to address problem: mental status improved back to baseline Subjective Date of service: 01/17/20 Principal diagnosis: Fluid overload Interval history: patient more awake, alert, in no acute distress, tolerating HD well. on NRB mask. patient tested positive for COVID 19 Objective - Vital Signs Vital signs: Vital Signs - 12hr 01/17/20 01/17/20 01/17/20 04:45 09:24 09:45 Temperature 97.5 F L 97.5 F L Pulse Rate 68 70 Respiratory 18 18 Rate Blood Pressure 131/67 131/69 128/72 O2 Sat by Pulse 95 Oximetry 01/17/20 01/17/20 01/17/20 09:50 10:00 10:15 Temperature Pulse Rate 69 69 70 Respiratory Rate Blood Pressure 125/70 129/73 129/69 O2 Sat by Pulse Oximetry 01/17/20 01/17/20 01/17/20 10:30 10:51 11:13 Temperature Pulse Rate 70 71 72 Respiratory Rate Blood Pressure 130/73 130/67 144/72 O2 Sat by Pulse Oximetry 01/17/20 01/17/20 01/17/20 11:15 11:30 11:45 Temperature Pulse Rate 70 71 72 Respiratory Rate Blood Pressure 140/69 138/65 136/74 O2 Sat by Pulse Oximetry 01/17/20 01/17/20 01/17/20 12:00 12:15 12:30 Temperature Pulse Rate 71 71 72 Respiratory Rate Blood Pressure 137/69 142/77 152/73 O2 Sat by Pulse Oximetry 01/17/20 01/17/20 12:45 12:56 Temperature 97.4 F L Pulse Rate 73 73 Respiratory 18 Rate Blood Pressure 150/73 147/70 O2 Sat by Pulse Oximetry - General Appearance General appearance: well-developed, well-nourished, appears stated age EENT: ATNC, PERRL, mucous membranes moist Neck: no JVD Respiratory: Present: Decreased Breath Sounds Cardiology: regular, S1S2 Gastrointestinal: normoactive bowel sounds Integumentary: no rash, other (trace edema b/l LE ) Neurologic: no focal deficit, alert and oriented x3, strength 5/5, CN 3-12 intact Psychiatric: mood/affect appropriate, cooperative - Lab 01/13/20 06:11 01/13/20 06:11 Most recent lab results ABG pH 7.384 pH Units (7.350-7.450) 01/16/20 14:11 ABG pCO2 52.3 mm Hg 01/16/20 14:11 ABG pO2 48.4 mm Hg (80.0-90.0) L 01/16/20 14:11 ABG HCO3 30.5 mmol/L (20.0-26.0) H 01/16/20 14:11 ABG O2 Saturation 81.9 % (95.0-99.0) L 01/16/20 14:11 Calcium 7.8 mg/dL (8.4-10.2) L 01/13/20 06:11 Phosphorus 3.30 mg/dL (2.5-4.5) 01/12/20 16:01 Magnesium 2.00 mg/dL (1.7-2.3) 01/13/20 06:11 Medications & Allergies - Medications Allergies/Adverse Reactions: Allergies cheese Allergy (Mild, Verified 12/20/19 10:19) Itching iodine Allergy (Mild, Verified 12/20/19 10:16) Anaphylaxis clonidine Allergy (Verified 12/19/19 04:13) Anaphylaxis shellfish derived Adverse Reaction (Verified 12/19/19 04:13) Angioedema Home Medications: Home Medications Medication Instructions Recorded Confirmed Last Taken Type Atorvastatin [Lipitor] 40 mg PO DAILY 11/06/19 01/13/20 01/02/20 10:00 History Acetaminophen [Acetaminophen 8 650 mg PO Q8H PRN #30 tablet.er 11/21/19 01/13/20 01/03/20 22:00 Rx Hour] Cyclobenzaprine HCl [Flexeril 5 MG 5 mg PO QHS PRN #20 tab 11/21/19 01/13/20 01/01/20 22:00 Rx TAB] HYDROcodone/APAP 5-325 [[place] 1 each PO Q6HR PRN #18 tablet 12/13/19 01/13/20 01/01/20 22:00 Rx 5-325 mg TAB] amLODIPine 10 mg PO DAILY 90 Days #90 tab 12/18/19 01/13/20 01/01/20 10:00 Rx Ibuprofen 800 mg PO TID 12/19/19 01/13/20 01/02/20 22:00 History Magnesium Oxide [Mag-Ox] 400 mg PO QDAY 12/19/19 01/13/20 01/03/20 10:00 History diphenhydrAMINE [Benadryl CAP] 25 mg PO Q8HR PRN 12/19/19 01/13/20 01/03/20 21:00 History labetaloL [Labetalol 100mg TAB] 100 mg PO Q8H #90 tablet 12/21/19 01/13/20 01/02/20 10:00 Rx traMADoL [Ultram 50 MG tab] 50 mg PO Q6HR PRN #20 tablet 12/29/19 01/13/20 12/31/19 10:00 Rx DULoxetine [Cymbalta] 30 mg PO QDAY #30 capsule 01/04/20 01/13/20 Unknown Rx Valsartan [Diovan] 80 mg PO DAILY #30 tablet 01/04/20 01/13/20 Unknown Rx Active Medications: Generic Name Dose Route Start Last Admin Trade Name Freq PRN Reason Stop Dose Admin Acetaminophen 650 mg 01/09/20 16:33 01/12/20 18:23 Tylenol PO 650 mg Q4H PRN Administration Pain MILD(1-3)/Fever >100.5/MEANS Acetaminophen/Hydrocodone Bitart 1 each 01/09/20 16:15 01/16/20 21:40 [place] 5/325 PO 1 each Q6HR PRN Administration Pain, Moderate (4-6) Amlodipine Besylate 10 mg 01/09/20 17:00 01/17/20 09:24 Amlodipine PO 10 mg DAILY PHILLY Administration Atorvastatin Calcium 40 mg 01/09/20 22:00 01/16/20 21:40 Lipitor PO 40 mg QHS PHILLY Administration Cyclobenzaprine HCl 5 mg 01/09/20 16:27 01/10/20 23:17 Flexeril PO 5 mg QHS PRN Administration Muscle Spasm Diphenhydramine HCl 25 mg 01/09/20 16:15 01/12/20 00:50 Benadryl PO 25 mg Q8HR PRN Administration Itching Duloxetine HCl 30 mg 01/09/20 17:00 01/17/20 09:24 Cymbalta PO 30 mg QDAY PHILLY Administration Famotidine 20 mg 01/09/20 22:00 01/17/20 09:23 Pepcid PO 20 mg DAILY PHILLY Administration Heparin Sodium (Porcine) 5,000 unit 01/10/20 10:00 01/17/20 09:23 Heparin SUB-Q 5,000 unit Q12HR PHILLY Administration Hydroxychloroquine Sulfate 400 mg 01/17/20 11:00 Plaquenil PO 01/17/20 22:01 BID PHILLY Hydroxychloroquine Sulfate 200 mg 01/18/20 10:00 Plaquenil PO 01/21/20 22:01 BID [facility] Sodium Chloride 100 mls @ 999 mls/hr 01/09/20 19:13 Nacl 0.9% IV SILVERIO PRN Hypotension Ceftriaxone Sodium 1 gm in 50 mls @ 100 mls/hr 01/17/20 11:00 Rocephin/Ns 1 Gm/50 Ml IV Q24HR [facility] Labetalol HCl 100 mg 01/09/20 17:00 01/17/20 03:15 Labetalol PO Not Given Q8H [facility] Magnesium Oxide 400 mg 01/09/20 17:00 01/17/20 09:24 Mag-Ox PO 400 mg QDAY [facility] Administration Ondansetron HCl 4 mg 01/09/20 16:33 01/13/20 02:50 Zofran IV 4 mg Q8H PRN Administration Nausea And Vomiting Oxycodone/Acetaminophen 1 tab 01/09/20 16:43 01/16/20 05:43 Percocet 5/325 PO 1 tab Q6H PRN Administration Pain, Moderate (4-6) Sodium Chloride 10 ml 01/09/20 22:00 01/17/20 09:25 Sodium Chloride Flush Syringe 10 Ml IV 10 ml BID PHILLY Administration Sodium Chloride 10 ml 01/09/20 16:33 Sodium Chloride Flush Syringe 10 Ml IV PRN PRN LINE FLUSH Tramadol HCl 50 mg 01/16/20 13:07 Ultram PO Q12HR PRN Pain, Moderate (4-6) Valsartan 80 mg 01/10/20 10:00 01/17/20 09:24 Diovan PO 80 mg DAILY [facility] Administration Zinc Sulfate 220 mg 01/17/20 12:00 Zinc Sulfate PO 01/21/20 12:01 DAILY@1200 [facility]
[2020-01-17] MEDS: cefTRIAXone/NS 1 GM/50 ML 1 GM/50 ML BAG IV SCH (16:34)
[2020-01-17] MEDS: HYDROXYCHLOROQUINE 200 MG TAB PO SCH ×2 (16:35→23:37)
--- NOTE | 2020-01-17 18:47 | Consultation ---
History of Present Illness - Reason for Consult Consult date: 01/17/20 fever r/o COVID Requesting physician: LILLIAN LEACH - History of Present Illness 64-year-old female with history of hyperlipidemia, end-stage renal disease on dialysis, hypertension and depression admitted on due to a week history of chest pain and shortness of breath and generalized body swelling. Patient has MELVIN and orthopnea. In spite of dialysis did not feel better. No nausea vomiting. No fever or chills. No exposure to coronavirus patients or family members. On arrival, temp 99-100.5. WBC normal with lymphopenia. Trop high. Blood culture negative. CXR steph interstitial infiltrates. Review of Systems:limited Past History Past Medical History: dialysis, heart failure, hypertension, hyperlipidemia Past Surgical History: Other (CABG, ) Social history: no significant social history Family history: hypertension Medications and Allergies Allergies Allergy/AdvReac Type Severity Reaction Status Date / Time cheese Allergy Mild Itching Verified 12/20/19 10:19 iodine Allergy Mild Anaphylaxis Verified 12/20/19 10:16 clonidine Allergy Anaphylaxis Verified 12/19/19 04:13 shellfish derived AdvReac Angioedema Verified 12/19/19 04:13 Home Medications Medication Instructions Recorded Confirmed Last Taken Type Atorvastatin [Lipitor] 40 mg PO DAILY 11/06/19 01/13/20 01/02/20 10:00 History Acetaminophen [Acetaminophen 8 650 mg PO Q8H PRN #30 tablet.er 11/21/19 01/13/20 01/03/20 22:00 Rx Hour] Cyclobenzaprine HCl [Flexeril 5 MG 5 mg PO QHS PRN #20 tab 11/21/19 01/13/20 01/01/20 22:00 Rx TAB] HYDROcodone/APAP 5-325 [[place] 1 each PO Q6HR PRN #18 tablet 12/13/19 01/13/20 01/01/20 22:00 Rx 5-325 mg TAB] amLODIPine 10 mg PO DAILY 90 Days #90 tab 12/18/19 01/13/20 01/01/20 10:00 Rx Ibuprofen 800 mg PO TID 12/19/19 01/13/20 01/02/20 22:00 History Magnesium Oxide [Mag-Ox] 400 mg PO QDAY 12/19/19 01/13/20 01/03/20 10:00 History diphenhydrAMINE [Benadryl CAP] 25 mg PO Q8HR PRN 12/19/19 01/13/20 01/03/20 21:00 History labetaloL [Labetalol 100mg TAB] 100 mg PO Q8H #90 tablet 12/21/19 01/13/20 01/02/20 10:00 Rx traMADoL [Ultram 50 MG tab] 50 mg PO Q6HR PRN #20 tablet 12/29/19 01/13/20 12/31/19 10:00 Rx DULoxetine [Cymbalta] 30 mg PO QDAY #30 capsule 01/04/20 01/13/20 Unknown Rx Valsartan [Diovan] 80 mg PO DAILY #30 tablet 01/04/20 01/13/20 Unknown Rx Active Meds: Active Medications Acetaminophen (Tylenol) 650 mg PO Q4H PRN PRN Reason: Pain MILD(1-3)/Fever >100.5/MEANS Last Admin: 01/12/20 18:23 Dose: 650 mg Documented by: Acetaminophen/Hydrocodone Bitart ([place] 5/325) 1 each PO Q6HR PRN PRN Reason: Pain, Moderate (4-6) Last Admin: 01/16/20 21:40 Dose: 1 each Documented by: Amlodipine Besylate (Amlodipine) 10 mg PO DAILY [facility] Last Admin: 01/17/20 09:24 Dose: 10 mg Documented by: Atorvastatin Calcium (Lipitor) 40 mg PO QHS [facility] Last Admin: 01/16/20 21:40 Dose: 40 mg Documented by: Cyclobenzaprine HCl (Flexeril) 5 mg PO QHS PRN PRN Reason: Muscle Spasm Last Admin: 01/10/20 23:17 Dose: 5 mg Documented by: Diphenhydramine HCl (Benadryl) 25 mg PO Q8HR PRN PRN Reason: Itching Last Admin: 01/12/20 00:50 Dose: 25 mg Documented by: Duloxetine HCl (Cymbalta) 30 mg PO QDAY [facility] Last Admin: 01/17/20 09:24 Dose: 30 mg Documented by: Famotidine (Pepcid) 20 mg PO DAILY [facility] Last Admin: 01/17/20 09:23 Dose: 20 mg Documented by: Heparin Sodium (Porcine) (Heparin) 5,000 unit SUB-Q Q12HR [facility] Last Admin: 01/17/20 09:23 Dose: 5,000 unit Documented by: Hydroxychloroquine Sulfate (Plaquenil) 400 mg PO BID [facility] Stop: 01/17/20 22:01 Last Admin: 01/17/20 16:35 Dose: 400 mg Documented by: Hydroxychloroquine Sulfate (Plaquenil) 200 mg PO BID [facility] Stop: 01/21/20 22:01 Sodium Chloride (Nacl 0.9%) 100 mls @ 999 mls/hr IV SILVERIO PRN PRN Reason: Hypotension Ceftriaxone Sodium (Rocephin/Ns 1 Gm/50 Ml) 1 gm in 50 mls @ 100 mls/hr IV Q24HR [facility] Last Admin: 01/17/20 16:34 Dose: 100 mls/hr Documented by: Labetalol HCl (Labetalol) 100 mg PO Q8H [facility] Last Admin: 01/17/20 16:35 Dose: 100 mg Documented by: Magnesium Oxide (Mag-Ox) 400 mg PO QDAY [facility] Last Admin: 01/17/20 09:24 Dose: 400 mg Documented by: Ondansetron HCl (Zofran) 4 mg IV Q8H PRN PRN Reason: Nausea And Vomiting Last Admin: 01/13/20 02:50 Dose: 4 mg Documented by: Oxycodone/Acetaminophen (Percocet 5/325) 1 tab PO Q6H PRN PRN Reason: Pain, Moderate (4-6) Last Admin: 01/16/20 05:43 Dose: 1 tab Documented by: Sodium Chloride (Sodium Chloride Flush Syringe 10 Ml) 10 ml IV BID [facility] Last Admin: 01/17/20 09:25 Dose: 10 ml Documented by: Sodium Chloride (Sodium Chloride Flush Syringe 10 Ml) 10 ml IV PRN PRN PRN Reason: LINE FLUSH Tramadol HCl (Ultram) 50 mg PO Q12HR PRN PRN Reason: Pain, Moderate (4-6) Valsartan (Diovan) 80 mg PO DAILY [facility] Last Admin: 01/17/20 09:24 Dose: 80 mg Documented by: Zinc Sulfate (Zinc Sulfate) 220 mg PO DAILY@1200 [facility] Stop: 01/21/20 12:01 Last Admin: 01/17/20 14:00 Dose: 220 mg Documented by: Physical Examination - Physical Exam Narrative exam: Gen: alert in NAD in NON rebreather mask Head, Ears, Nose: Normocephalic, atraumatic. Oral: Limited Cardiovascular: Limited evaluation due to PPE shortage Respiratory: steph crackles GI: Limited evaluation due to PPE shortage Musculoskeletal: Limited evaluation due to PPE shortage Neurological: alert non focal - Constitutional Vitals: Vital Signs Temp Pulse Resp BP Pulse Ox 97.4 F L 88 18 147/70 95 01/17/20 12:56 01/17/20 16:35 01/17/20 12:56 01/17/20 12:56 01/17/20 04:45 Temperature -Last 24 Hours Temperature 97.4 F Temperature 97.5 F Temperature 97.5 F Temperature 97.9 F Results - Labs CBC & Chem 7: 01/13/20 06:11 01/13/20 06:11 Assessment and Plan Cultures: Blood culture 01/14/2020 no growth to date A/P: #Fever: likely due to severe COVID pneumonia. #Severe COVIDpneumonia: very elevated inflammatory markers- ferritin> 2000, CRP >24, LDH> 600, d-dimer >1000 putting her at high risk for ARDS. #Acute resp failure: on Nonrebreathing #ESRD on HD Recs: Continuos pulse oximetry Pulmonary consult - high risk for ARDS Discuss code status with family Start hydroxychloroquine 400 mg PO BID for 1 day then 200 mg PO BID for 4 days (total 5 days) with zinc 220 mg PO qday Start ceftriaxone Stop levaquin Obtain serial Ferritin, LDH, D-Dimer, CRP every 48h Daily EKG - QT monitoring - stop plaqenil if QT interval >500 ContinueCOVID isolationprecautions per [facility] protocol High risk mortality Thank you for the consult, we will continue to follow. Angela Bales MD Infectious Diseases Line Service Supervisor [facility] ([facility] M [phone]
[2020-01-17] MEDS ORDERED: SODIUM CHLORIDE*PRIMING MACHINE ONLY FOR DIALYSIS MC ONE (20:36)
[2020-01-17] MEDS: HYDROcodone/ACETAMINOPHEN 5-325 MG TAB PO PRN (23:37)
[2020-01-18 06:52] LABS: Basophils % (Auto) 0.1 % (0.0-1.8); Eosinophils % (Auto) 0.8 % (0.0-4.3); Hematocrit 29.4 % (30.3-42.9); Hemoglobin 9.4 gm/dl (10.1-14.3); Lymphocytes # (Auto) 0.2 K/mm3 (1.2-5.4); Lymphocytes % (Auto) 3.8 % (13.4-35.0); Mean Corpuscular HGB Conc 32 % (30-34); Mean Corpuscular Volume 94 fl (79-97); Monocytes # (Auto) 0.4 K/mm3 (0.0-0.8); Monocytes % (Auto) 6.5 % (0.0-7.3); Platelet Count 135 K/mm3 (140-440); Red Blood Count 3.15 M/mm3 (3.65-5.03); Red Cell Distribution Width 17.5 % (13.2-15.2)
[2020-01-18 07:16] LABS: C-Reactive Protein 17.1 mg/dL (0.00-1.30); Calcium 8.2 mg/dL (8.4-10.2)
[2020-01-18] MEDS: MAGNESIUM OXIDE 400 MG TAB PO SCH (10:25)
[2020-01-18] MEDS: cefTRIAXone/NS 1 GM/50 ML 1 GM/50 ML BAG IV SCH (10:25)
[2020-01-18] MEDS: DULoxetine 30 MG CAP PO SCH (10:26)
[2020-01-18] MEDS: HYDROXYCHLOROQUINE 200 MG TAB PO SCH ×2 (10:26→22:07)
[2020-01-18] MEDS: FAMOTIDINE 20 MG TAB PO SCH (10:26)
[2020-01-18] MEDS: amLODIPine 10 MG TAB PO SCH (10:49)
[2020-01-18] MEDS: VALSARTAN 40 MG TAB PO SCH (10:50)
[2020-01-18] MEDS: HEPARIN 5,000 UNIT/1 ML VIAL SUB-Q SCH ×2 (10:50→22:07)
--- NOTE | 2020-01-18 11:00 | Consultation ---
History of Present Illness Consult date: 01/18/20 Requesting physician: JOELLE DAVIS Reason for consult: hypoxemia History of present illness: 64 y/o female, COVID Positive admitted with acute respiratory failure. Being seen now by ID and has been started on experimental therapy. Pulmonary asked to see given the high oxygen requirements currently. Past History Past Medical History: dialysis, heart failure, hypertension, hyperlipidemia Past Surgical History: Other (CABG, ) Social history: no significant social history Family history: hypertension Medications and Allergies Allergies Allergy/AdvReac Type Severity Reaction Status Date / Time cheese Allergy Mild Itching Verified 12/20/19 10:19 iodine Allergy Mild Anaphylaxis Verified 12/20/19 10:16 clonidine Allergy Anaphylaxis Verified 12/19/19 04:13 shellfish derived AdvReac Angioedema Verified 12/19/19 04:13 Home Medications Medication Instructions Recorded Confirmed Last Taken Type Atorvastatin [Lipitor] 40 mg PO DAILY 11/06/19 01/13/20 01/02/20 10:00 History Acetaminophen [Acetaminophen 8 650 mg PO Q8H PRN #30 tablet.er 11/21/19 01/13/20 01/03/20 22:00 Rx Hour] Cyclobenzaprine HCl [Flexeril 5 MG 5 mg PO QHS PRN #20 tab 11/21/19 01/13/20 01/01/20 22:00 Rx TAB] HYDROcodone/APAP 5-325 [[place] 1 each PO Q6HR PRN #18 tablet 12/13/19 01/13/20 01/01/20 22:00 Rx 5-325 mg TAB] amLODIPine 10 mg PO DAILY 90 Days #90 tab 12/18/19 01/13/20 01/01/20 10:00 Rx Ibuprofen 800 mg PO TID 12/19/19 01/13/20 01/02/20 22:00 History Magnesium Oxide [Mag-Ox] 400 mg PO QDAY 12/19/19 01/13/20 01/03/20 10:00 History diphenhydrAMINE [Benadryl CAP] 25 mg PO Q8HR PRN 12/19/19 01/13/20 01/03/20 21:00 History labetaloL [Labetalol 100mg TAB] 100 mg PO Q8H #90 tablet 12/21/19 01/13/20 01/02/20 10:00 Rx traMADoL [Ultram 50 MG tab] 50 mg PO Q6HR PRN #20 tablet 12/29/19 01/13/20 12/31/19 10:00 Rx DULoxetine [Cymbalta] 30 mg PO QDAY #30 capsule 01/04/20 01/13/20 Unknown Rx Valsartan [Diovan] 80 mg PO DAILY #30 tablet 01/04/20 01/13/20 Unknown Rx Active Meds: Active Medications Acetaminophen (Tylenol) 650 mg PO Q4H PRN PRN Reason: Pain MILD(1-3)/Fever >100.5/MEANS Last Admin: 01/12/20 18:23 Dose: 650 mg Documented by: Acetaminophen/Hydrocodone Bitart ([place] 5/325) 1 each PO Q6HR PRN PRN Reason: Pain, Moderate (4-6) Last Admin: 01/17/20 23:37 Dose: 1 each Documented by: Amlodipine Besylate (Amlodipine) 10 mg PO DAILY [facility] Last Admin: 01/18/20 10:49 Dose: 10 mg Documented by: Atorvastatin Calcium (Lipitor) 40 mg PO QHS [facility] Last Admin: 01/17/20 23:37 Dose: 40 mg Documented by: Cyclobenzaprine HCl (Flexeril) 5 mg PO QHS PRN PRN Reason: Muscle Spasm Last Admin: 01/10/20 23:17 Dose: 5 mg Documented by: Diphenhydramine HCl (Benadryl) 25 mg PO Q8HR PRN PRN Reason: Itching Last Admin: 01/12/20 00:50 Dose: 25 mg Documented by: Duloxetine HCl (Cymbalta) 30 mg PO QDAY [facility] Last Admin: 01/18/20 10:26 Dose: 30 mg Documented by: Famotidine (Pepcid) 20 mg PO DAILY [facility] Last Admin: 01/18/20 10:26 Dose: 20 mg Documented by: Heparin Sodium (Porcine) (Heparin) 5,000 unit SUB-Q Q12HR [facility] Last Admin: 01/18/20 10:50 Dose: 5,000 unit Documented by: Hydroxychloroquine Sulfate (Plaquenil) 200 mg PO BID [facility] Stop: 01/21/20 22:01 Last Admin: 01/18/20 10:26 Dose: 200 mg Documented by: Sodium Chloride (Nacl 0.9%) 100 mls @ 999 mls/hr IV SILVERIO PRN PRN Reason: Hypotension Ceftriaxone Sodium (Rocephin/Ns 1 Gm/50 Ml) 1 gm in 50 mls @ 100 mls/hr IV Q24HR [facility] Last Admin: 01/18/20 10:25 Dose: 100 mls/hr Documented by: Labetalol HCl (Labetalol) 100 mg PO Q8H [facility] Last Admin: 01/18/20 10:49 Dose: 100 mg Documented by: Magnesium Oxide (Mag-Ox) 400 mg PO QDAY [facility] Last Admin: 01/18/20 10:25 Dose: 400 mg Documented by: Ondansetron HCl (Zofran) 4 mg IV Q8H PRN PRN Reason: Nausea And Vomiting Last Admin: 01/13/20 02:50 Dose: 4 mg Documented by: Oxycodone/Acetaminophen (Percocet 5/325) 1 tab PO Q6H PRN PRN Reason: Pain, Moderate (4-6) Last Admin: 01/16/20 05:43 Dose: 1 tab Documented by: Sodium Chloride (Sodium Chloride Flush Syringe 10 Ml) 10 ml IV BID [facility] Last Admin: 01/18/20 10:51 Dose: 10 ml Documented by: Sodium Chloride (Sodium Chloride Flush Syringe 10 Ml) 10 ml IV PRN PRN PRN Reason: LINE FLUSH Tramadol HCl (Ultram) 50 mg PO Q12HR PRN PRN Reason: Pain, Moderate (4-6) Valsartan (Diovan) 80 mg PO DAILY [facility] Last Admin: 01/18/20 10:50 Dose: 80 mg Documented by: Zinc Sulfate (Zinc Sulfate) 220 mg PO DAILY@1200 [facility] Stop: 01/21/20 12:01 Last Admin: 01/17/20 14:00 Dose: 220 mg Documented by: Review of Systems All systems: negative Physical Examination Vital signs: Vital Signs Temp Pulse Resp BP Pulse Ox 99.0 F 75 20 184/71 97 01/09/20 12:19 01/09/20 12:19 01/09/20 12:19 01/09/20 12:19 01/09/20 12:19 Results - Laboratory Findings CBC and BMP: 01/18/20 06:25 01/18/20 06:25 ABG ABG pH 7.384 pH Units (7.350-7.450) 01/16/20 14:11 ABG pCO2 52.3 mm Hg 01/16/20 14:11 ABG pO2 48.4 mm Hg (80.0-90.0) L 01/16/20 14:11 ABG O2 Saturation 81.9 % (95.0-99.0) L 01/16/20 14:11 PT/INR, D-dimer PT 15.6 Sec. (12.2-14.9) H 01/09/20 12:55 INR 1.22 (0.87-1.13) H 01/09/20 12:55 D-Dimer 938.03 ng/mlDDU (0-234) H 01/18/20 06:25 Abnormal lab findings: Abnormal Labs 01/09/20 01/09/20 01/09/20 12:55 12:55 12:55 WBC 4.4 L RBC 3.44 L Hgb Hct RDW 17.0 H Plt Count Lymph % (Auto) 6.8 L [place] % (Auto) 13.6 H Lymph # 0.3 L Seg Neutrophils % 79.0 H PT 15.6 H INR 1.22 H D-Dimer ABG pO2 ABG HCO3 ABG O2 Saturation ABG Base Excess ABG Hemoglobin Oxyhemoglobin Sodium 130 L Chloride 88.9 L Carbon Dioxide 20 L BUN 41 H Creatinine 7.6 H Glucose 115 H POC Glucose Calcium Magnesium Ferritin Alkaline Phosphatase 153 H Lactate Dehydrogenase Troponin T 0.382 H* C-Reactive Protein NT-Pro-B Natriuret Pep 04012 H Total Protein Albumin 3.2 L 01/09/20 01/10/20 01/10/20 20:14 00:16 06:54 WBC 3.3 L RBC 3.00 L Hgb 9.2 L Hct 27.8 L RDW 17.2 H Plt Count Lymph % (Auto) 8.9 L [place] % (Auto) 11.5 H Lymph # 0.3 L Seg Neutrophils % 79.1 H PT INR D-Dimer ABG pO2 ABG HCO3 ABG O2 Saturation ABG Base Excess ABG Hemoglobin Oxyhemoglobin Sodium Chloride Carbon Dioxide BUN Creatinine Glucose POC Glucose Calcium Magnesium Ferritin Alkaline Phosphatase Lactate Dehydrogenase Troponin T 0.349 H* 0.328 H* C-Reactive Protein NT-Pro-B Natriuret Pep Total Protein Albumin 01/10/20 01/10/20 01/11/20 06:54 06:54 16:45 WBC RBC Hgb Hct RDW Plt Count Lymph % (Auto) [place] % (Auto) Lymph # Seg Neutrophils % PT INR D-Dimer ABG pO2 ABG HCO3 ABG O2 Saturation ABG Base Excess ABG Hemoglobin Oxyhemoglobin Sodium 133 L Chloride 90.6 L Carbon Dioxide BUN 50 H Creatinine 8.4 H Glucose 101 H POC Glucose 106 H Calcium 8.1 L Magnesium Ferritin Alkaline Phosphatase 148 H Lactate Dehydrogenase Troponin T 0.315 H* C-Reactive Protein NT-Pro-B Natriuret Pep Total Protein 5.4 L Albumin 2.7 L 01/12/20 01/13/20 01/13/20 16:01 06:11 06:11 WBC 3.1 L RBC 3.25 L Hgb 9.8 L Hct RDW 17.2 H Plt Count 136 L Lymph % (Auto) [place] % (Auto) Lymph # Seg Neutrophils % PT INR D-Dimer ABG pO2 ABG HCO3 ABG O2 Saturation ABG Base Excess ABG Hemoglobin Oxyhemoglobin Sodium 135 L Chloride 93.4 L Carbon Dioxide BUN 19 H Creatinine 4.5 H Glucose 120 H POC Glucose Calcium 7.8 L Magnesium 1.40 L Ferritin Alkaline Phosphatase Lactate Dehydrogenase Troponin T C-Reactive Protein NT-Pro-B Natriuret Pep Total Protein Albumin 01/16/20 01/16/20 01/16/20 08:35 11:49 14:11 WBC RBC Hgb Hct RDW Plt Count Lymph % (Auto) [place] % (Auto) Lymph # Seg Neutrophils % PT INR D-Dimer ABG pO2 48.4 L ABG HCO3 30.5 H ABG O2 Saturation 81.9 L ABG Base Excess 4.6 H ABG Hemoglobin 10.5 L Oxyhemoglobin 80.1 L Sodium Chloride Carbon Dioxide BUN Creatinine Glucose POC Glucose 126 H 119 H Calcium Magnesium Ferritin Alkaline Phosphatase Lactate Dehydrogenase Troponin T C-Reactive Protein NT-Pro-B Natriuret Pep Total Protein Albumin 01/16/20 01/16/20 01/16/20 15:38 15:38 15:38 WBC RBC Hgb Hct RDW Plt Count Lymph % (Auto) [place] % (Auto) Lymph # Seg Neutrophils % PT INR D-Dimer 1104.64 H ABG pO2 ABG HCO3 ABG O2 Saturation ABG Base Excess ABG Hemoglobin Oxyhemoglobin Sodium Chloride Carbon Dioxide BUN Creatinine Glucose POC Glucose Calcium Magnesium Ferritin > 2000.0 H Alkaline Phosphatase Lactate Dehydrogenase 690 H Troponin T C-Reactive Protein 24.10 H NT-Pro-B Natriuret Pep Total Protein Albumin 01/16/20 01/18/20 01/18/20 18:11 06:25 06:25 WBC RBC 3.15 L Hgb 9.4 L Hct 29.4 L RDW 17.5 H Plt Count 135 L Lymph % (Auto) 3.8 L [place] % (Auto) Lymph # 0.2 L Seg Neutrophils % 88.8 H PT INR D-Dimer ABG pO2 ABG HCO3 ABG O2 Saturation ABG Base Excess ABG Hemoglobin Oxyhemoglobin Sodium Chloride 96.8 L Carbon Dioxide BUN 26 H Creatinine 4.2 H Glucose 115 H POC Glucose 130 H Calcium 8.2 L Magnesium Ferritin Alkaline Phosphatase Lactate Dehydrogenase 537 H Troponin T C-Reactive Protein 17.10 H NT-Pro-B Natriuret Pep Total Protein Albumin 01/18/20 01/18/20 06:25 06:25 WBC RBC Hgb Hct RDW Plt Count Lymph % (Auto) [place] % (Auto) Lymph # Seg Neutrophils % PT INR D-Dimer 938.03 H ABG pO2 ABG HCO3 ABG O2 Saturation ABG Base Excess ABG Hemoglobin Oxyhemoglobin Sodium Chloride Carbon Dioxide BUN Creatinine Glucose POC Glucose Calcium Magnesium Ferritin 3105.0 H Alkaline Phosphatase Lactate Dehydrogenase Troponin T C-Reactive Protein NT-Pro-B Natriuret Pep Total Protein Albumin - Diagnostic Findings Chest x-ray: image reviewed (bilateral alveolar infiltrates) Assessment and Plan 64 y/o female with COVID positive, viral pneumonia with some pulmonary vascular congestion superimposed. 1. Experimental therapy for COVID 2. Maintain sats of 88% and greater 3. Do not give these individuals fluids, please run them on the dry side if possible. She is a dialysis patient so the more fluid you can pull the better. 4. If patient progresses could give bipap a one hour trial to see if there is improvement, repeat ABG, if not would suggest elective intubation Given age and multiple comorbids, progness is poor if oxygen requirement continues to increase.
[2020-01-18 12:39] LABS: ABG Base Excess 4.6 mmol/L (-2.0-3.0); ABG HCO3 30.1 mmol/L (20.0-26.0); ABG Methemoglobin 0.4 % (0.0-1.5); ABG Oxygen Saturation 93.2 % (95.0-99.0); ABG PCO2 49.2 mm Hg; ABG PH 7.404 pH Units (7.350-7.450); ABG PO2 66.5 mm Hg (80.0-90.0)
--- NOTE | 2020-01-18 14:23 | Progress Note ---
Assessment and Plan - Patient Problems (1) End stage renal disease on dialysis Current Visit: No Status: Chronic Plan to address problem: continue on TTS HD schedule with increased UF target 3L as tolerated (2) Pneumonia due to COVID-19 virus Current Visit: Yes Status: Acute Plan to address problem: COVID19 test returned positive, severely positive inflammatory parameters incl. ferritin> 2000, CRP >24, LDH> 600, d-dimer >1000 putting her at high risk for respiratory decompensation/ARDS. Management as per ID/pulmonary consult (3) Volume overload Current Visit: Yes Status: Acute Qualifiers: Plan to address problem: Fluid status improved with HD (4) Bilateral pulmonary infiltrates on chest x-ray Current Visit: Yes Status: Acute Plan to address problem: initially mproved on HD, repeat CXR showing worsening b/l interstitial infiltrates. will challenge with increased UF target on HD (5) Hyponatremia Current Visit: No Status: Acute Plan to address problem: improving with optimizing volume status with HD. 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 (8) Anemia in CKD (chronic kidney disease) Current Visit: Yes Status: Acute Qualifiers: Chronic kidney disease stage: on chronic dialysis Qualified Code(s): N18.6 - End stage renal disease; D63.1 - Anemia in chronic kidney disease; Z99.2 - Dependence on renal dialysis Plan to address problem: CLARITA therapy with HD. (9) Secondary hyperparathyroidism (of renal origin) Current Visit: Yes Status: Chronic Plan to address problem: Continue on current outpatient phos binder regimen. (10) Altered mental status Current Visit: Yes Status: Acute Plan to address problem: mental status improved back to baseline Subjective Date of service: 01/18/20 Principal diagnosis: Fluid overload Interval history: patient tested positive for COVID 19, is now on HFNC. Objective - Vital Signs Vital signs: Vital Signs - 12hr 01/18/20 01/18/20 01/18/20 04:00 04:56 10:38 Temperature 98.3 F Pulse Rate 74 67 69 Respiratory 18 Rate Blood Pressure 117/61 122/62 O2 Sat by Pulse 97 96 Oximetry 01/18/20 01/18/20 01/18/20 10:49 10:50 11:08 Temperature 97.7 F Pulse Rate 69 69 73 Respiratory 22 Rate Blood Pressure 122/62 122/62 119/65 O2 Sat by Pulse 95 Oximetry 01/18/20 11:56 Temperature Pulse Rate 77 Respiratory Rate Blood Pressure 153/75 O2 Sat by Pulse 96 Oximetry - General Appearance General appearance: well-developed, appears stated age, chronically ill EENT: ATNC, PERRL, mucous membranes moist Neck: no JVD Respiratory: Present: Rales Cardiology: regular, S1S2 Gastrointestinal: normoactive bowel sounds Integumentary: no rash, other (trace edema b/l LE ) Neurologic: no focal deficit, alert and oriented x3, strength 5/5, CN 3-12 intact Psychiatric: mood/affect appropriate, cooperative - Lab 01/18/20 06:25 01/18/20 06:25 Most recent lab results ABG pH 7.404 pH Units (7.350-7.450) 01/18/20 12:15 ABG pCO2 49.2 mm Hg 01/18/20 12:15 ABG pO2 66.5 mm Hg (80.0-90.0) L 01/18/20 12:15 ABG HCO3 30.1 mmol/L (20.0-26.0) H 01/18/20 12:15 ABG O2 Saturation 93.2 % (95.0-99.0) L 01/18/20 12:15 Calcium 8.2 mg/dL (8.4-10.2) L 01/18/20 06:25 Phosphorus 3.30 mg/dL (2.5-4.5) 01/12/20 16:01 Magnesium 2.00 mg/dL (1.7-2.3) 01/13/20 06:11 Medications & Allergies - Medications Allergies/Adverse Reactions: Allergies cheese Allergy (Mild, Verified 12/20/19 10:19) Itching iodine Allergy (Mild, Verified 12/20/19 10:16) Anaphylaxis clonidine Allergy (Verified 12/19/19 04:13) Anaphylaxis shellfish derived Adverse Reaction (Verified 12/19/19 04:13) Angioedema Home Medications: Home Medications Medication Instructions Recorded Confirmed Last Taken Type Atorvastatin [Lipitor] 40 mg PO DAILY 11/06/19 01/13/20 01/02/20 10:00 History Acetaminophen [Acetaminophen 8 650 mg PO Q8H PRN #30 tablet.er 11/21/19 01/13/20 01/03/20 22:00 Rx Hour] Cyclobenzaprine HCl [Flexeril 5 MG 5 mg PO QHS PRN #20 tab 11/21/19 01/13/20 01/01/20 22:00 Rx TAB] HYDROcodone/APAP 5-325 [[place] 1 each PO Q6HR PRN #18 tablet 12/13/19 01/13/20 01/01/20 22:00 Rx 5-325 mg TAB] amLODIPine 10 mg PO DAILY 90 Days #90 tab 12/18/19 01/13/20 01/01/20 10:00 Rx Ibuprofen 800 mg PO TID 12/19/19 01/13/20 01/02/20 22:00 History Magnesium Oxide [Mag-Ox] 400 mg PO QDAY 12/19/19 01/13/20 01/03/20 10:00 History diphenhydrAMINE [Benadryl CAP] 25 mg PO Q8HR PRN 12/19/19 01/13/20 01/03/20 21:00 History labetaloL [Labetalol 100mg TAB] 100 mg PO Q8H #90 tablet 12/21/19 01/13/20 10:00 Rx traMADoL [Ultram 50 MG tab] 50 mg PO Q6HR PRN #20 tablet 12/29/19 01/13/20 12/31/19 10:00 Rx DULoxetine [Cymbalta] 30 mg PO QDAY #30 capsule 01/04/20 01/13/20 Unknown Rx Valsartan [Diovan] 80 mg PO DAILY #30 tablet 01/04/20 01/13/20 Unknown Rx Active Medications: Generic Name Dose Route Start Last Admin Trade Name Freq PRN Reason Stop Dose Admin Acetaminophen 650 mg 01/09/20 16:33 01/12/20 18:23 Tylenol PO 650 mg Q4H PRN Administration Pain MILD(1-3)/Fever >100.5/MEANS Acetaminophen/Hydrocodone [place] 1 each 01/09/20 16:15 01/17/20 23:37 [place] 5/325 PO 1 each Q6HR PRN Administration Pain, Moderate (4-6) Amlodipine Besylate 10 mg 01/09/20 17:00 01/18/20 10:49 Amlodipine PO 10 mg DAILY PHILLY Administration Atorvastatin Calcium 40 mg 01/09/20 22:00 01/17/20 23:37 Lipitor PO 40 mg QHS PHILLY Administration Cyclobenzaprine HCl 5 mg 01/09/20 16:27 01/10/20 23:17 Flexeril PO 5 mg QHS PRN Administration Muscle Spasm Diphenhydramine HCl 25 mg 01/09/20 16:15 01/12/20 00:50 Benadryl PO 25 mg Q8HR PRN Administration Itching Duloxetine HCl 30 mg 01/09/20 17:00 01/18/20 10:26 Cymbalta PO 30 mg QDAY PHILLY Administration Famotidine 20 mg 01/09/20 22:00 01/18/20 10:26 Pepcid PO 20 mg DAILY PHILLY Administration Heparin Sodium (Porcine) 5,000 unit 01/10/20 10:00 01/18/20 10:50 Heparin SUB-Q 5,000 unit Q12HR PHILLY Administration Hydroxychloroquine Sulfate 200 mg 01/18/20 10:00 01/18/20 10:26 Plaquenil PO 01/21/20 22:01 200 mg BID PHILLY Administration Sodium Chloride 100 mls @ 999 mls/hr 01/09/20 19:13 Nacl 0.9% IV SILVERIO PRN Hypotension Ceftriaxone Sodium 1 gm in 50 mls @ 100 mls/hr 01/17/20 11:00 01/18/20 10:25 Rocephin/Ns 1 Gm/50 Ml IV 100 mls/hr Q24HR PHILLY Administration Labetalol HCl 100 mg 01/09/20 17:00 01/18/20 10:49 Labetalol PO 100 mg Q8H PHILLY Administration Magnesium Oxide 400 mg 01/09/20 17:00 01/18/20 10:25 Mag-Ox PO 400 mg QDAY PHILLY Administration Ondansetron HCl 4 mg 01/09/20 16:33 01/13/20 02:50 Zofran IV 4 mg Q8H PRN Administration Nausea And Vomiting Oxycodone/Acetaminophen 1 tab 01/09/20 16:43 01/16/20 05:43 Percocet 5/325 PO 1 tab Q6H PRN Administration Pain, Moderate (4-6) Sodium Chloride 10 ml 01/09/20 22:00 01/18/20 10:51 Sodium Chloride Flush Syringe 10 Ml IV 10 ml BID PHILLY Administration Sodium Chloride 10 ml 01/09/20 16:33 Sodium Chloride Flush Syringe 10 Ml IV PRN PRN LINE FLUSH Tramadol HCl 50 mg 01/16/20 13:07 Ultram PO Q12HR PRN Pain, Moderate (4-6) Valsartan 80 mg 01/10/20 10:00 01/18/20 10:50 Diovan PO 80 mg DAILY PHILLY Administration Zinc Sulfate 220 mg 01/17/20 12:00 01/17/20 14:00 Zinc Sulfate PO 01/21/20 12:01 220 mg DAILY@1200 PHILLY Administration
--- NOTE | 2020-01-18 15:33 | Progress Note ---
Assessment and Plan Cultures: Blood culture 01/14/2020 no growth to date A/P: #Fever: likely due to severe COVID pneumonia. #Severe COVID pneumonia: very elevated inflammatory markers- ferritin> 2000, CRP >24, LDH> 600, d-dimer >1000 putting her at high risk for ARDS. #Acute resp failure: on Nonrebreathing #ESRD on HD Recs: Discuss code status with family Continuos pulse oximetry Pulmonary on board Continue hydroxychloroquine 400 mg PO BID for 1 day then 200 mg PO BID for 4 days (total 5 days) with zinc 220 mg PO qday Continue ceftriaxone Obtain serial Ferritin, LDH, D-Dimer, CRP every 48h Daily EKG - QT monitoring - stop plaqenil if QT interval >500 ContinueCOVID isolationprecautions per [facility] protocol High risk mortality Thank you for the consult, we will continue to follow. Angela Bales MD Infectious Diseases Retail Customer Service Specialist [facility] ([facility]) M [phone] Subjective Date of service: 01/18/20 Principal diagnosis: Fluid overload Interval history: Feels about the same, weak, no fever Objective - Exam Narrative Exam: Gen: alert in NAD in NON rebreather mask Head, Ears, Nose: Normocephalic, atraumatic. Oral: Limited Cardiovascular: Limited evaluation due to PPE shortage Respiratory: steph crackles GI: Limited evaluation due to PPE shortage Musculoskeletal: Limited evaluation due to PPE shortage Neurological: alert non focal - Constitutional Vitals: Vital Signs Temp Pulse Resp BP Pulse Ox 97.7 F 77 22 153/75 96 01/18/20 11:08 01/18/20 11:56 01/18/20 11:08 01/18/20 11:56 01/18/20 11:56 Temperature -Last 24 Hours Temperature 97.7 F Temperature 98.3 F Temperature 98.4 F - Labs CBC & Chem 7: 01/18/20 06:25 01/18/20 06:25 Labs: Abnormal lab results 01/18/20 01/18/20 01/18/20 Range/Units 06:25 06:25 06:25 RBC 3.15 L (3.65-5.03) M/mm3 Hgb 9.4 L (10.1-14.3) gm/dl Hct 29.4 L (30.3-42.9) % RDW 17.5 H (13.2-15.2) % Plt Count 135 L (140-440) K/mm3 Lymph % (Auto) 3.8 L (13.4-35.0) % Lymph # 0.2 L (1.2-5.4) K/mm3 Seg Neutrophils % 88.8 H (40.0-70.0) % D-Dimer 938.03 H (0-234) ng/mlDDU ABG pO2 (80.0-90.0) mm Hg ABG HCO3 (20.0-26.0) mmol/L ABG O2 Saturation (95.0-99.0) % ABG Base Excess (-2.0-3.0) mmol/L ABG Hemoglobin (12.0-16.0) gm/dl Oxyhemoglobin (95.0-99.0) % Chloride 96.8 L (98-107) mmol/L BUN 26 H (7-17) mg/dL Creatinine 4.2 H (0.7-1.2) mg/dL Glucose 115 H (65-100) mg/dL Calcium 8.2 L (8.4-10.2) mg/dL Ferritin (13.0-400.0) ng/mL Lactate Dehydrogenase 537 H (91-180) units/L C-Reactive Protein 17.10 H (0.00-1.30) mg/dL 01/18/20 01/18/20 Range/Units 06:25 12:15 RBC (3.65-5.03) M/mm3 Hgb (10.1-14.3) gm/dl Hct (30.3-42.9) % RDW (13.2-15.2) % Plt Count (140-440) K/mm3 Lymph % (Auto) (13.4-35.0) % Lymph # (1.2-5.4) K/mm3 Seg Neutrophils % (40.0-70.0) % D-Dimer (0-234) ng/mlDDU ABG pO2 66.5 L (80.0-90.0) mm Hg ABG HCO3 30.1 H (20.0-26.0) mmol/L ABG O2 Saturation 93.2 L (95.0-99.0) % ABG Base Excess 4.6 H (-2.0-3.0) mmol/L ABG Hemoglobin 10.0 L (12.0-16.0) gm/dl Oxyhemoglobin 91.3 L (95.0-99.0) % Chloride (98-107) mmol/L BUN (7-17) mg/dL Creatinine (0.7-1.2) mg/dL Glucose (65-100) mg/dL Calcium (8.4-10.2) mg/dL Ferritin 3105.0 H (13.0-400.0) ng/mL Lactate Dehydrogenase (91-180) units/L C-Reactive Protein (0.00-1.30) mg/dL
--- NOTE | 2020-01-18 17:10 | Progress Note ---
Assessment and Plan Assessment and plan: Chest pain Stress test neg for ischemia GERD and costochondritis in differential diagnosis Volume overload s/p hemodialysis Nephrology consulted,following Acute on Chronic diastolic CHF exacerbation Secondary to volume overload Acute resp fauilure on Oxygen On supplemental Oxygen May need Oxygen on dc End stage renal disease on dialysis Nephrology following T2DM (type 2 diabetes mellitus) Continue continue coverage Check hemoglobin A1c Hypertension Continue antihypertensives Hyponatremia Secondary to increased volume--dilutional DVT prophylaxis On heparin and GI prophylaxis Fever to r/o Covid- 19 01/11 Covid 19 survey testing sent, nasal swab done 01/10 01/12 Patient has acute resp failure. may need Oxygen on dc. awaiting Covid result 01/13 Still has shortness of breath, awaiting Covid test. 01/14 Pt still dyspneic, await covid testing, Pulse ox 83% 01/16/2020. Patient remains dyspneic. Follow-up COVID testing. 01/17/2020. Patient still requiring large amounts of oxygen. Patient currently with 15 L satting at 95%. Patient with increased inflammatory markers. Follow- up chest x-ray today. 01/17--Patient still requiring large amounts of oxygen. Patient currently with 15 L %. Patient with increased inflammatory markers. History Interval history: No new issues overnight Hospitalist Physical - Constitutional Vitals: Temp Pulse Resp BP Pulse Ox 97.7 F 77 22 153/75 96 01/18/20 11:08 01/18/20 11:56 01/18/20 11:08 01/18/20 11:56 01/18/20 11:56 General appearance: Present: no acute distress - EENT Eyes: Present: PERRL, EOM intact ENT: hearing intact, clear oral mucosa, dentition normal - Neck Neck: Present: supple, normal ROM - Respiratory Respiratory effort: normal Respiratory: bilateral: CTA - Cardiovascular Rhythm: regular Heart Sounds: Present: S1 & S2. Absent: gallop, rub - Extremities Extremities: no ischemia, No edema, Full ROM - Abdominal General gastrointestinal: soft, non-tender, non-distended, normal bowel sounds - Integumentary Integumentary: Present: clear, warm, dry - Neurologic Neurologic: CNII-XII intact, moves all extremities SEAN score - Sean Score Age > 65: (1) Yes Aspirin use within the Past 7 Days: (1) Yes 3 or more CAD Risk Factors: (1) Yes 2 or more Angina events in past 24 hrs: (1) Yes Known CAD with more than 50% Stenosis: (0) No Elevated Cardiac Markers: (0) No ST Deviation Greater than 0.5mm: (0) No SEAN Score: 4 Results - Labs CBC & Chem 7: 01/18/20 06:25 04 06:25 Labs: Laboratory Last Values WBC 5.6 K/mm3 (4.5-11.0) 01/18/20 06:25 RBC 3.15 M/mm3 (3.65-5.03) L 01/18/20 06:25 Hgb 9.4 gm/dl (10.1-14.3) L 01/18/20 06:25 Hct 29.4 % (30.3-42.9) L 01/18/20 06:25 MCV 94 fl (79-97) 01/18/20 06:25 MCH 30 pg (28-32) 01/18/20 06:25 MCHC 32 % (30-34) 01/18/20 06:25 RDW 17.5 % (13.2-15.2) H 01/18/20 06:25 Plt Count 135 K/mm3 (140-440) L 01/18/20 06:25 Lymph % (Auto) 3.8 % (13.4-35.0) L 01/18/20 06:25 [place] % (Auto) 6.5 % (0.0-7.3) 01/18/20 06:25 Eos % (Auto) 0.8 % (0.0-4.3) 01/18/20 06:25 Baso % (Auto) 0.1 % (0.0-1.8) 01/18/20 06:25 Lymph # 0.2 K/mm3 (1.2-5.4) L 01/18/20 06:25 [place] # 0.4 K/mm3 (0.0-0.8) 01/18/20 06:25 Eos # 0.0 K/mm3 (0.0-0.4) 01/18/20 06:25 Baso # 0.0 K/mm3 (0.0-0.1) 01/18/20 06:25 Seg Neutrophils % 88.8 % (40.0-70.0) H 01/18/20 06:25 Seg Neutrophils # 5.0 K/mm3 (1.8-7.7) 01/18/20 06:25 PT 15.6 Sec. (12.2-14.9) H 01/09/20 12:55 INR 1.22 (0.87-1.13) H 01/09/20 12:55 APTT 31.5 Sec. (24.2-36.6) 01/09/20 12:55 D-Dimer 938.03 ng/mlDDU (0-234) H 01/18/20 06:25 ABG pH 7.404 pH Units (7.350-7.450) 01/18/20 12:15 ABG pCO2 49.2 mm Hg 01/18/20 12:15 ABG pO2 66.5 mm Hg (80.0-90.0) L 01/18/20 12:15 ABG HCO3 30.1 mmol/L (20.0-26.0) H 01/18/20 12:15 ABG O2 Saturation 93.2 % (95.0-99.0) L 01/18/20 12:15 ABG O2 Content 12.9 (0.0-44) 01/18/20 12:15 ABG Base Excess 4.6 mmol/L (-2.0-3.0) H 01/18/20 12:15 ABG Hemoglobin 10.0 gm/dl (12.0-16.0) L 01/18/20 12:15 ABG Carboxyhemoglobin 1.7 % (0.0-5.0) 01/18/20 12:15 ABG Methemoglobin 0.4 % (0.0-1.5) 01/18/20 12:15 Oxyhemoglobin 91.3 % (95.0-99.0) L 01/18/20 12:15 FiO2 100 % 01/18/20 12:15 Sodium 138 mmol/L (137-145) 01/18/20 06:25 Potassium 3.9 mmol/L (3.6-5.0) 01/18/20 06:25 Chloride 96.8 mmol/L (98-107) L 01/18/20 06:25 Carbon Dioxide 25 mmol/L (22-30) 01/18/20 06:25 Anion Gap 20 mmol/L 01/18/20 06:25 BUN 26 mg/dL (7-17) H 01/18/20 06:25 Creatinine 4.2 mg/dL (0.7-1.2) H 01/18/20 06:25 Estimated GFR 13 ml/min 01/18/20 06:25 BUN/Creatinine Ratio 6 % 01/18/20 06:25 Glucose 115 mg/dL (65-100) H 01/18/20 06:25 POC Glucose 130 (70-105) H 01/16/20 18:11 Hemoglobin A1c 5.0 % (4-6) 01/10/20 06:54 Calcium 8.2 mg/dL (8.4-10.2) L 01/18/20 06:25 Phosphorus 3.30 mg/dL (2.5-4.5) 01/12/20 16:01 Magnesium 2.00 mg/dL (1.7-2.3) 01/13/20 06:11 Ferritin 3105.0 ng/mL (13.0-400.0) H 01/18/20 06:25 Total Bilirubin 0.30 mg/dL (0.1-1.2) 01/10/20 06:54 AST 30 units/L (5-40) 01/10/20 06:54 ALT 24 units/L (7-56) 01/10/20 06:54 Alkaline Phosphatase 148 units/L (35-129) H 01/10/20 06:54 Lactate Dehydrogenase 537 units/L (91-180) H 01/18/20 06:25 Troponin T 0.315 ng/mL (0.00-0.029) H* 01/10/20 06:54 C-Reactive Protein 17.10 mg/dL (0.00-1.30) H 01/18/20 06:25 NT-Pro-B Natriuret Pep 26140 pg/mL (0-900) H 01/09/20 12:55 Total Protein 5.4 g/dL (6.3-8.2) L 01/10/20 06:54 Albumin 2.7 g/dL (3.9-5) L 01/10/20 06:54 Albumin/Globulin Ratio 1.0 % 01/10/20 06:54 Triglycerides 82 mg/dL (2-149) 01/09/20 12:55 Cholesterol 123 mg/dL (50-199) 01/09/20 12:55 LDL Cholesterol Direct 66 mg/dL (50-130) 01/09/20 12:55 HDL Cholesterol 47 mg/dL (40-59) 01/09/20 12:55 Cholesterol/HDL Ratio 2.61 % 01/09/20 12:55 Miscellaneous Test See scanned result 01/11/20 Unknown Miscellaneous Test See scanned result 01/11/20 Unknown Pleitez/IV: Voiding Method Diaper IV Catheter Type [Right Peripheral IV External Jugular] IV Catheter Type [Left INT / Saline Lock External Jugular] Active Medications - Current Medications Current Medications: Generic Name Dose Route Start Last Admin Trade Name Freq PRN Reason Stop Dose Admin Acetaminophen 650 mg 01/09/20 16:33 01/12/20 18:23 Tylenol PO 650 mg Q4H PRN Administration Pain MILD(1-3)/Fever >100.5/MEANS Acetaminophen/Hydrocodone Bitart 1 each 01/09/20 16:15 01/17/20 23:37 [place] 5/325 PO 1 each Q6HR PRN Administration Pain, Moderate (4-6) Amlodipine Besylate 10 mg 01/09/20 17:00 01/18/20 10:49 Amlodipine PO 10 mg DAILY PHILLY Administration Atorvastatin Calcium 40 mg 01/09/20 22:00 01/17/20 23:37 Lipitor PO 40 mg QHS PHILLY Administration Cyclobenzaprine HCl 5 mg 01/09/20 16:27 01/10/20 23:17 Flexeril PO 5 mg QHS PRN Administration Muscle Spasm Diphenhydramine HCl 25 mg 01/09/20 16:15 01/12/20 00:50 Benadryl PO 25 mg Q8HR PRN Administration Itching Duloxetine HCl 30 mg 01/09/20 17:00 01/18/20 10:26 Cymbalta PO 30 mg QDAY PHILLY Administration Famotidine 20 mg 01/09/20 22:00 01/18/20 10:26 Pepcid PO 20 mg DAILY PHILLY Administration Heparin Sodium (Porcine) 5,000 unit 01/10/20 10:00 01/18/20 10:50 Heparin SUB-Q 5,000 unit Q12HR PHILLY Administration Hydroxychloroquine Sulfate 200 mg 01/18/20 10:00 01/18/20 10:26 Plaquenil PO 01/21/20 22:01 200 mg BID PHILLY Administration Sodium Chloride 100 mls @ 999 mls/hr 01/09/20 19:13 Nacl 0.9% IV SILVERIO PRN Hypotension Ceftriaxone Sodium 1 gm in 50 mls @ 100 mls/hr 01/17/20 11:00 01/18/20 10:25 Rocephin/Ns 1 Gm/50 Ml IV 100 mls/hr Q24HR PHILLY Administration Labetalol HCl 100 mg 01/09/20 17:00 01/18/20 10:49 Labetalol PO 100 mg Q8H PHILLY Administration Magnesium Oxide 400 mg 01/09/20 17:00 01/18/20 10:25 Mag-Ox PO 400 mg QDAY PHILLY Administration Ondansetron HCl 4 mg 01/09/20 16:33 01/13/20 02:50 Zofran IV 4 mg Q8H PRN Administration Nausea And Vomiting Oxycodone/Acetaminophen 1 tab 01/09/20 16:43 01/16/20 05:43 Percocet 5/325 PO 1 tab Q6H PRN Administration Pain, Moderate (4-6) Sodium Chloride 10 ml 01/09/20 22:00 01/18/20 10:51 Sodium Chloride Flush Syringe 10 Ml IV 10 ml BID PHILLY Administration Sodium Chloride 10 ml 01/09/20 16:33 Sodium Chloride Flush Syringe 10 Ml IV PRN PRN LINE FLUSH Tramadol HCl 50 mg 01/16/20 13:07 Ultram PO Q12HR PRN Pain, Moderate (4-6) Valsartan 80 mg 01/10/20 10:00 01/18/20 10:50 Diovan PO 80 mg DAILY PHILLY Administration Zinc Sulfate 220 mg 01/17/20 12:00 01/17/20 14:00 Zinc Sulfate PO 01/21/20 12:01 220 mg DAILY@1200 PHILLY Administration Nutrition/Malnutrition Assess - Dietary Evaluation Nutrition/Malnutrition Findings: Nutrition Notes Start: 01/17/20 13:49 Freq: Status: Active Protocol: Document 01/17/20 13:49 LM (Rec: 01/17/20 14:00 LM [email or web address]) Nutrition Notes Need for Assessment generated from: LOS Initial or Follow up Assessment Current Diagnosis CKD (stage V CKD),COPD, Diabetes,Hypertension,Heart Failure,Hyperlipidemia Current Diet renal Labs/Tests reviewed Pertinent Medications Mag-Ox Height 5 ft 6 in Weight 78.5 kg [place] Body Weight (kg) 59.09 BMI 27.9 Weight change and time frame 8% wt loss in 2 weeks Weight Status Overweight Subjective/Other Information Screen for LOS. Unable to speak to pt. Pt receiving HD at bedside. Noticed 0% intakes in chart. Pt with edema and weak cloth stock sorter strength. Reviewed chart from 01/03/19 and 12/20/18. Pt weighed 85.6kg and 77.2 kg . Wt fluctuation could be due to fluid. Burn Absent Trauma Absent Minimum of two criteria Yes Interpretation of Weight Loss (non- 5% in 1 month severe) Fluid Accumulation Mild (non-severe) Reduced Cardiograph Operator Strength Measurably Reduced (severe) #1 Nutrition Diagnosis Malnutrition Etiology ESRD, chronic illness As Evidenced by Signs and Symptoms pt with 8% wt loss in 2 weeks, weak cloth stock sorter strength, fluid accumulation Is patient on ventilator? No Is Patient Ambulatory and/or Out of Bed No REE-([facility]-confined to bed) [phone] Calculation [facility] Additional Notes Protein: 94g (>1.2g/kg) Fluid: per MD Nutrition Intervention Change Diet Order: Continue renal Add Supplement/Snack (indicate name/kcal Nepro BID /protein ) Provides kCal: 850 Provides Protein (gm) 38 Goal #1 Meet at least 80% of energy and protein needs Anticipated Discharge Needs: Renal diet Follow-Up By: 01/21/20 Additional Comments F/U for full assessment, intakes
[2020-01-18] MEDS: ZINC SULFATE 220 MG CAP PO SCH (18:02)
--- NOTE | 2020-01-19 09:19 | Progress Note ---
Assessment and Plan Assessment and plan: Suspected COVID- 19 Patient with very elevated inflammatory markers of ferritin, CRP, LDH and d- dimer. Chest pain Stress test neg for ischemia GERD and costochondritis in differential diagnosis Volume overload s/p hemodialysis Nephrology consulted,following Acute on Chronic diastolic CHF exacerbation Secondary to volume overload Acute resp fauilure on Oxygen On supplemental Oxygen May need Oxygen on dc End stage renal disease on dialysis Nephrology following T2DM (type 2 diabetes mellitus) Continue continue coverage Check hemoglobin A1c Hypertension Continue antihypertensives Hyponatremia Secondary to increased volume--dilutional DVT prophylaxis On heparin and GI prophylaxis Fever to r/o Covid- 19 01/11 Covid 19 survey testing sent, nasal swab done 01/10 01/12 Patient has acute resp failure. may need Oxygen on dc. awaiting Covid result 01/13 Still has shortness of breath, awaiting Covid test. 01/14 Pt still dyspneic, await covid testing, Pulse ox 83% 01/16/2020. Patient remains dyspneic. Follow-up COVID testing. 01/17/2020. Patient still requiring large amounts of oxygen. Patient currently with 15 L satting at 95%. Patient with increased inflammatory markers. Follow-up chest x-ray today. 01/18/20--Patient still requiring large amounts of oxygen. Patient currently with 15 L %. Patient with increased inflammatory markers. 01/19/2020 very elevated inflammatory markers- ferritin> 2000, CRP >24, LDH> 600, d-dimer >1000 putting her at high risk for ARDS. Continue hydroxychloroquine 400 mg PO BID for 1 day then 200 mg PO BID for 4 days (total 5 days) with zinc 2 20 mg PO qday. Continue ceftriaxone. ContinueCOVID isolationprecautions per PSYCHIATRIC protocol. Continue serial Ferritin, LDH, D-Dimer, CRP every 48h History Interval history: No new issues overnight Hospitalist Physical - Constitutional Vitals: Temp Pulse Resp BP Pulse Ox 97.5 F L 67 16 128/66 99 01/18/20 21:53 01/19/20 04:00 01/18/20 21:53 01/19/20 04:00 01/18/20 21:53 General appearance: Present: no acute distress - EENT Eyes: Present: PERRL, EOM intact ENT: hearing intact, clear oral mucosa, dentition normal - Neck Neck: Present: supple, normal ROM - Respiratory Respiratory effort: normal Respiratory: bilateral: CTA - Cardiovascular Rhythm: regular Heart Sounds: Present: S1 & S2. Absent: gallop, rub - Extremities Extremities: no ischemia, No edema, Full ROM - Abdominal General gastrointestinal: soft, non-tender, non-distended, normal bowel sounds - Integumentary Integumentary: Present: clear, warm, dry - Neurologic Neurologic: CNII-XII intact, moves all extremities SEAN score - Sean Score Age > 65: (1) Yes Aspirin use within the Past 7 Days: (1) Yes 3 or more CAD Risk Factors: (1) Yes 2 or more Angina events in past 24 hrs: (1) Yes Known CAD with more than 50% Stenosis: (0) No Elevated Cardiac Markers: (0) No ST Deviation Greater than 0.5mm: (0) No ESAN Score: 4 Results - Labs CBC & Chem 7: 01/18/20 06:25 01/18/20 06:25 Labs: Laboratory Last Values WBC 5.6 K/mm3 (4.5-11.0) 01/18/20 06:25 RBC 3.15 M/mm3 (3.65-5.03) L 01/18/20 06:25 Hgb 9.4 gm/dl (10.1-14.3) L 01/18/20 06:25 Hct 29.4 % (30.3-42.9) L 01/18/20 06:25 MCV 94 fl (79-97) 01/18/20 06:25 MCH 30 pg (28-32) 01/18/20 06:25 MCHC 32 % (30-34) 01/18/20 06:25 RDW 17.5 % (13.2-15.2) H 01/18/20 06:25 Plt Count 135 K/mm3 (140-440) L 01/18/20 06:25 Lymph % (Auto) 3.8 % (13.4-35.0) L 01/18/20 06:25 [place] % (Auto) 6.5 % (0.0-7.3) 01/18/20 06:25 Eos % (Auto) 0.8 % (0.0-4.3) 01/18/20 06:25 Baso % (Auto) 0.1 % (0.0-1.8) 01/18/20 06:25 Lymph # 0.2 K/mm3 (1.2-5.4) L 01/18/20 06:25 [place] # 0.4 K/mm3 (0.0-0.8) 01/18/20 06:25 Eos # 0.0 K/mm3 (0.0-0.4) 01/18/20 06:25 Baso # 0.0 K/mm3 (0.0-0.1) 01/18/20 06:25 Seg Neutrophils % 88.8 % (40.0-70.0) H 01/18/20 06:25 Seg Neutrophils # 5.0 K/mm3 (1.8-7.7) 01/18/20 06:25 PT 15.6 Sec. (12.2-14.9) H 01/09/20 12:55 INR 1.22 (0.87-1.13) H 01/09/20 12:55 APTT 31.5 Sec. (24.2-36.6) 01/09/20 12:55 D-Dimer 938.03 ng/mlDDU (0-234) H 01/18/20 06:25 ABG pH 7.404 pH Units (7.350-7.450) 01/18/20 12:15 ABG pCO2 49.2 mm Hg 01/18/20 12:15 ABG pO2 66.5 mm Hg (80.0-90.0) L 01/18/20 12:15 ABG HCO3 30.1 mmol/L (20.0-26.0) H 01/18/20 12:15 ABG O2 Saturation 93.2 % (95.0-99.0) L 01/18/20 12:15 ABG O2 Content 12.9 (0.0-44) 01/18/20 12:15 ABG Base Excess 4.6 mmol/L (-2.0-3.0) H 01/18/20 12:15 ABG Hemoglobin 10.0 gm/dl (12.0-16.0) L 01/18/20 12:15 ABG Carboxyhemoglobin 1.7 % (0.0-5.0) 01/18/20 12:15 ABG Methemoglobin 0.4 % (0.0-1.5) 01/18/20 12:15 Oxyhemoglobin 91.3 % (95.0-99.0) L 01/18/20 12:15 FiO2 100 % 01/18/20 12:15 Sodium 138 mmol/L (137-145) 01/18/20 06:25 Potassium 3.9 mmol/L (3.6-5.0) 01/18/20 06:25 Chloride 96.8 mmol/L (98-107) L 01/18/20 06:25 Carbon Dioxide 25 mmol/L (22-30) 01/18/20 06:25 Anion Gap 20 mmol/L 01/18/20 06:25 BUN 26 mg/dL (7-17) H 01/18/20 06:25 Creatinine 4.2 mg/dL (0.7-1.2) H 01/18/20 06:25 Estimated GFR 13 ml/min 01/18/20 06:25 BUN/Creatinine Ratio 6 % 01/18/20 06:25 Glucose 115 mg/dL (65-100) H 01/18/20 06:25 POC Glucose 130 (70-105) H 01/16/20 18:11 Hemoglobin A1c 5.0 % (4-6) 01/10/20 06:54 Calcium 8.2 mg/dL (8.4-10.2) L 01/18/20 06:25 Phosphorus 3.30 mg/dL (2.5-4.5) 01/12/20 16:01 Magnesium 2.00 mg/dL (1.7-2.3) 01/13/20 06:11 Ferritin 3105.0 ng/mL (13.0-400.0) H 01/18/20 06:25 Total Bilirubin 0.30 mg/dL (0.1-1.2) 01/10/20 06:54 AST 30 units/L (5-40) 01/10/20 06:54 ALT 24 units/L (7-56) 01/10/20 06:54 Alkaline Phosphatase 148 units/L (35-129) H 01/10/20 06:54 Lactate Dehydrogenase 537 units/L (91-180) H 01/18/20 06:25 Troponin T 0.315 ng/mL (0.00-0.029) H* 01/10/20 06:54 C-Reactive Protein 17.10 mg/dL (0.00-1.30) H 01/18/20 06:25 NT-Pro-B Natriuret Pep 11933 pg/mL (0-900) H 01/09/20 12:55 Total Protein 5.4 g/dL (6.3-8.2) L 01/10/20 06:54 Albumin 2.7 g/dL (3.9-5) L 01/10/20 06:54 Albumin/Globulin Ratio 1.0 % 01/10/20 06:54 Triglycerides 82 mg/dL (2-149) 01/09/20 12:55 Cholesterol 123 mg/dL (50-199) 01/09/20 12:55 LDL Cholesterol Direct 66 mg/dL (50-130) 01/09/20 12:55 HDL Cholesterol 47 mg/dL (40-59) 01/09/20 12:55 Cholesterol/HDL Ratio 2.61 % 01/09/20 12:55 Miscellaneous Test See scanned result 01/11/20 Unknown Miscellaneous Test See scanned result 01/11/20 Unknown Pleitez/IV: Voiding Method Diaper IV Catheter Type [Right Peripheral IV External Jugular] IV Catheter Type [Left INT / Saline Lock External Jugular] Active Medications - Current Medications Current Medications: Generic Name Dose Route Start Last Admin Trade Name Freq PRN Reason Stop Dose Admin Acetaminophen 650 mg 01/09/20 16:33 01/12/20 18:23 Tylenol PO 650 mg Q4H PRN Administration Pain MILD(1-3)/Fever >100.5/MEANS Acetaminophen/Hydrocodone Bitart 1 each 01/09/20 16:15 01/17/20 23:37 [place] 5/325 PO 1 each Q6HR PRN Administration Pain, Moderate (4-6) Amlodipine Besylate 10 mg 01/09/20 17:00 01/18/20 10:49 Amlodipine PO 10 mg DAILY PHILLY Administration Atorvastatin Calcium 40 mg 01/09/20 22:00 01/18/20 22:07 Lipitor PO 40 mg QHS PHILLY Administration Cyclobenzaprine HCl 5 mg 01/09/20 16:27 01/10/20 23:17 Flexeril PO 5 mg QHS PRN Administration Muscle Spasm Diphenhydramine HCl 25 mg 01/09/20 16:15 01/12/20 00:50 Benadryl PO 25 mg Q8HR PRN Administration Itching Duloxetine HCl 30 mg 01/09/20 17:00 01/18/20 10:26 Cymbalta PO 30 mg QDAY PHILLY Administration Famotidine 20 mg 01/09/20 22:00 01/18/20 10:26 Pepcid PO 20 mg DAILY PHILLY Administration Heparin Sodium (Porcine) 5,000 unit 01/10/20 10:00 01/18/20 22:07 Heparin SUB-Q 5,000 unit Q12HR PHILLY Administration Hydroxychloroquine Sulfate 200 mg 01/18/20 10:00 01/18/20 22:07 Plaquenil PO 01/21/20 22:01 200 mg BID PHILLY Administration Sodium Chloride 100 mls @ 999 mls/hr 01/09/20 19:13 Nacl 0.9% IV SILVERIO PRN Hypotension Ceftriaxone Sodium 1 gm in 50 mls @ 100 mls/hr 01/17/20 11:00 01/18/20 18:01 Rocephin/Ns 1 Gm/50 Ml IV Infused Q24HR PHILLY Infusion Labetalol HCl 100 mg 01/09/20 17:00 01/19/20 04:00 Labetalol PO 100 mg Q8H PHILLY Administration Magnesium Oxide 400 mg 01/09/20 17:00 01/18/20 10:25 Mag-Ox PO 400 mg QDAY PHILLY Administration Ondansetron HCl 4 mg 01/09/20 16:33 01/13/20 02:50 Zofran IV 4 mg Q8H PRN Administration Nausea And Vomiting Oxycodone/Acetaminophen 1 tab 01/09/20 16:43 01/16/20 05:43 Percocet 5/325 PO 1 tab Q6H PRN Administration Pain, Moderate (4-6) Sodium Chloride 10 ml 01/09/20 22:00 01/18/20 22:08 Sodium Chloride Flush Syringe 10 Ml IV 10 ml BID PHILLY Administration Sodium Chloride 10 ml 01/09/20 16:33 Sodium Chloride Flush Syringe 10 Ml IV PRN PRN LINE FLUSH Tramadol HCl 50 mg 01/16/20 13:07 Ultram PO Q12HR PRN Pain, Moderate (4-6) Valsartan 80 mg 01/10/20 10:00 01/18/20 10:50 Diovan PO 80 mg DAILY PHILLY Administration Zinc Sulfate 220 mg 01/17/20 12:00 01/18/20 18:02 Zinc Sulfate PO 01/21/20 12:01 220 mg DAILY@1200 PHILLY Administration Nutrition/Malnutrition Assess - Dietary Evaluation Nutrition/Malnutrition Findings: Nutrition Notes Start: 01/17/20 13:49 Freq: Status: Active Protocol: Document 01/17/20 13:49 LM (Rec: 01/17/20 14:00 LM [email or web address]) Nutrition Notes Need for Assessment generated from: LOS Initial or Follow up Assessment Current Diagnosis CKD (stage V CKD),COPD, Diabetes,Hypertension,Heart Failure,Hyperlipidemia Current Diet renal Labs/Tests reviewed Pertinent Medications Mag-Ox Height 5 ft 6 in Weight 78.5 kg [place] Body Weight (kg) 59.09 BMI 27.9 Weight change and time frame 8% wt loss in 2 weeks Weight Status Overweight Subjective/Other Information Screen for LOS. Unable to speak to pt. Pt receiving HD at bedside. Noticed 0% intakes in chart. Pt with edema and weak content curator strength. Reviewed chart from 01/03/19 and 12/20/18. Pt weighed 85.6kg and 77.2 kg . Wt fluctuation could be due to fluid. 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 No Is Patient Ambulatory and/or Out of Bed No REE-([facility]-confined to bed) 1621.404 Calculation Used for Recommendations [facility] Additional Notes Protein: 94g (>1.2g/kg) Fluid: per MD Nutrition Intervention Change Diet Order: Continue renal Add Supplement/Snack (indicate name/kcal Nepro BID /protein ) Provides kCal: 850 Provides Protein (gm) 38 Goal #1 Meet at least 80% of energy and protein needs Anticipated Discharge Needs: Renal diet Follow-Up By: 01/21/20 Additional Comments F/U for full assessment, intakes
[2020-01-19] MEDS: cefTRIAXone/NS 1 GM/50 ML 1 GM/50 ML BAG IV SCH (09:20)
[2020-01-19] MEDS: FAMOTIDINE 20 MG TAB PO SCH (09:20)
[2020-01-19] MEDS: amLODIPine 10 MG TAB PO SCH (09:20)
[2020-01-19] MEDS: HEPARIN 5,000 UNIT/1 ML VIAL SUB-Q SCH ×2 (09:21→22:23)
[2020-01-19] MEDS: MAGNESIUM OXIDE 400 MG TAB PO SCH (09:21)
[2020-01-19] MEDS: VALSARTAN 40 MG TAB PO SCH (09:21)
[2020-01-19] MEDS: HYDROXYCHLOROQUINE 200 MG TAB PO SCH ×2 (09:21→22:23)
[2020-01-19] MEDS: DULoxetine 30 MG CAP PO SCH (09:21)
[2020-01-19] MEDS: ZINC SULFATE 220 MG CAP PO SCH (12:33)
[2020-01-19] MEDS ORDERED: SODIUM CHLORIDE*PRIMING MACHINE ONLY FOR DIALYSIS MC ONE (17:02)
--- NOTE | 2020-01-19 18:38 | Progress Note ---
Assessment and Plan - Patient Problems (1) Volume overload Current Visit: Yes Status: Acute Qualifiers: Plan to address problem: end-stage renal disease with fluid overload. Improving with fluid removal on dialysis. (2) Pneumonia due to COVID-19 virus Current Visit: Yes Status: Acute Plan to address problem: continue antibiotics per infectious disease. 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 (5) Acute respiratory failure with hypoxia Current Visit: No Status: Acute Plan to address problem: ventilator management by pulmonary/fiction and nonfiction writer prose (6) Hyponatremia Current Visit: No Status: Acute Plan to address problem: hypervolemic hyponatremia. Follow-up sodium with fluid removal on dialysis (7) Hypertensive chronic kidney disease with stage 5 chronic kidney disease or end stage renal disease Current Visit: No Status: Chronic Plan to address problem: follow-up blood pressure on current medications Subjective Date of service: 01/19/20 Principal diagnosis: Fluid overload Interval history: Patient lying in bed. She was completing dialysis treatment. 3 L fluid shelly matilda.she denies any complaints. Breathing better Objective - Exam Narrative Exam: elderly -[place] female lying in bedin no acute distress HEENT: Normocephalic atraumatic, pupils equal round reactive to light Normal oropharynx, Neck: Supple, no venous distention, no goiter CVS: S1S2 RRR Huber Huber, rub or gallop Lungs: diminished breath sounds bilaterally, no use of accessory muscles of respiration Abdomen: Full, soft, nontender, no organomegaly no bruit, bowel sounds are present Extremities: No edema, no cyanosis or clubbing Urinary: Deferred Musculo-skeletal: No joint deformities or swelling Neuro: Awake,looks dull, no focal deficits - Vital Signs Vital signs: Vital Signs - 12hr 01/19/20 01/19/20 01/19/20 08:00 09:30 09:40 Temperature 97.5 F L Pulse Rate 71 73 73 Respiratory 16 Rate Blood Pressure 133/64 131/72 O2 Sat by Pulse Oximetry 01/19/20 01/19/20 01/19/20 09:45 10:00 10:16 Temperature Pulse Rate 72 73 73 Respiratory 20 Rate Blood Pressure 136/71 142/76 140/77 O2 Sat by Pulse 97 Oximetry 01/19/20 01/19/20 01/19/20 10:30 10:45 11:00 Temperature Pulse Rate 74 75 76 Respiratory Rate Blood Pressure 149/79 140/75 147/74 O2 Sat by Pulse Oximetry 01/19/20 01/19/20 01/19/20 11:15 11:30 11:45 Temperature Pulse Rate 76 79 78 Respiratory Rate Blood Pressure 152/77 140/77 144/77 O2 Sat by Pulse Oximetry 01/19/20 01/19/20 01/19/20 12:00 12:15 12:30 Temperature Pulse Rate 78 79 79 Respiratory Rate Blood Pressure 149/63 151/72 159/78 O2 Sat by Pulse Oximetry 01/19/20 01/19/20 12:48 16:54 Temperature 97.5 F L 98.7 F Pulse Rate 81 59 L Respiratory 20 22 Rate Blood Pressure 158/78 127/60 O2 Sat by Pulse 91 Oximetry - Lab 01/18/20 06:25 01/18/20 06:25 Most recent lab results ABG pH 7.404 pH Units (7.350-7.450) 01/18/20 12:15 ABG pCO2 49.2 mm Hg 01/18/20 12:15 ABG pO2 66.5 mm Hg (80.0-90.0) L 01/18/20 12:15 ABG HCO3 30.1 mmol/L (20.0-26.0) H 01/18/20 12:15 ABG O2 Saturation 93.2 % (95.0-99.0) L 01/18/20 12:15 Calcium 8.2 mg/dL (8.4-10.2) L 01/18/20 06:25 Phosphorus 3.30 mg/dL (2.5-4.5) 01/12/20 16:01 Magnesium 2.00 mg/dL (1.7-2.3) 01/13/20 06:11 Medications & Allergies - Medications Allergies/Adverse Reactions: Allergies cheese Allergy (Mild, Verified 12/20/19 10:19) Itching iodine Allergy (Mild, Verified 12/20/19 10:16) Anaphylaxis clonidine Allergy (Verified 12/19/19 04:13) Anaphylaxis shellfish derived Adverse Reaction (Verified 12/19/19 04:13) Angioedema Home Medications: Home Medications Medication Instructions Recorded Confirmed Last Taken Type Atorvastatin [Lipitor] 40 mg PO DAILY 11/06/19 01/13/20 01/02/20 10:00 History Acetaminophen [Acetaminophen 8 650 mg PO Q8H PRN #30 tablet.er 11/21/19 01/13/20 01/03/20 22:00 Rx Hour] Cyclobenzaprine HCl [Flexeril 5 MG 5 mg PO QHS PRN #20 tab 11/21/19 01/13/20 01/01/20 22:00 Rx TAB] HYDROcodone/APAP 5-325 [[place] 1 each PO Q6HR PRN #18 tablet 12/13/19 01/13/20 01/01/20 22:00 Rx 5-325 mg TAB] amLODIPine 10 mg PO DAILY 90 Days #90 tab 12/18/19 01/13/20 01/01/20 10:00 Rx Ibuprofen 800 mg PO TID 12/19/19 01/13/20 01/02/20 22:00 History Magnesium Oxide [Mag-Ox] 400 mg PO QDAY 12/19/19 01/13/20 01/03/20 10:00 History diphenhydrAMINE [Benadryl CAP] 25 mg PO Q8HR PRN 12/19/19 01/13/20 01/03/20 21:00 History labetaloL [Labetalol 100mg TAB] 100 mg PO Q8H #90 tablet 12/21/19 01/13/20 01/02/20 10:00 Rx traMADoL [Ultram 50 MG tab] 50 mg PO Q6HR PRN #20 tablet 12/29/19 01/13/20 12/31/19 10:00 Rx DULoxetine [Cymbalta] 30 mg PO QDAY #30 capsule 01/04/20 01/13/20 Unknown Rx Valsartan [Diovan] 80 mg PO DAILY #30 tablet 01/04/20 01/13/20 Unknown Rx Active Medications: Generic Name Dose Route Start Last Admin Trade Name Freq PRN Reason Stop Dose Admin Acetaminophen 650 mg 01/09/20 16:33 01/12/20 18:23 Tylenol PO 650 mg Q4H PRN Administration Pain MILD(1-3)/Fever >100.5/MEANS Acetaminophen/Hydrocodone Bitart 1 each 01/09/20 16:15 01/17/20 23:37 [place] 5/325 PO 1 each Q6HR PRN Administration Pain, Moderate (4-6) Amlodipine Besylate 10 mg 01/09/20 17:00 01/19/20 09:20 Amlodipine PO 10 mg DAILY PHILLY Administration Atorvastatin Calcium 40 mg 01/09/20 22:00 01/18/20 22:07 Lipitor PO 40 mg QHS PHILLY Administration Cyclobenzaprine HCl 5 mg 01/09/20 16:27 01/10/20 23:17 Flexeril PO 5 mg QHS PRN Administration Muscle Spasm Diphenhydramine HCl 25 mg 01/09/20 16:15 01/12/20 00:50 Benadryl PO 25 mg Q8HR PRN Administration Itching Duloxetine HCl 30 mg 01/09/20 17:00 01/19/20 09:21 Cymbalta PO 30 mg QDAY PHILLY Administration Famotidine 20 mg 01/09/20 22:00 01/19/20 09:20 Pepcid PO 20 mg DAILY PHILLY Administration Heparin Sodium (Porcine) 5,000 unit 01/10/20 10:00 01/19/20 09:21 Heparin SUB-Q 5,000 unit Q12HR PHILLY Administration Hydroxychloroquine Sulfate 200 mg 01/18/20 10:00 01/19/20 09:21 Plaquenil PO 01/21/20 22:01 200 mg BID PHILLY Administration Sodium Chloride 100 mls @ 999 mls/hr 01/09/20 19:13 Nacl 0.9% IV SILVERIO PRN Hypotension Ceftriaxone Sodium 1 gm in 50 mls @ 100 mls/hr 01/17/20 11:00 01/19/20 09:20 Rocephin/Ns 1 Gm/50 Ml IV 100 mls/hr Q24HR PHILLY Administration Labetalol HCl 100 mg 01/09/20 17:00 01/19/20 17:27 Labetalol PO 100 mg Q8H PHILLY Administration Magnesium Oxide 400 mg 01/09/20 17:00 01/19/20 09:21 Mag-Ox PO 400 mg QDAY PHILLY Administration Ondansetron HCl 4 mg 01/09/20 16:33 01/13/20 02:50 Zofran IV 4 mg Q8H PRN Administration Nausea And Vomiting Oxycodone/Acetaminophen 1 tab 01/09/20 16:43 01/16/20 05:43 Percocet 5/325 PO 1 tab Q6H PRN Administration Pain, Moderate (4-6) Sodium Chloride 10 ml 01/09/20 22:00 01/19/20 09:22 Sodium Chloride Flush Syringe 10 Ml IV 10 ml BID PHILLY Administration Sodium Chloride 10 ml 01/09/20 16:33 Sodium Chloride Flush Syringe 10 Ml IV PRN PRN LINE FLUSH Tramadol HCl 50 mg 01/16/20 13:07 Ultram PO Q12HR PRN Pain, Moderate (4-6) Valsartan 80 mg 01/10/20 10:00 01/19/20 09:21 Diovan PO 80 mg DAILY PHILLY Administration Zinc Sulfate 220 mg 01/17/20 12:00 01/19/20 12:33 Zinc Sulfate PO 01/21/20 12:01 220 mg DAILY@1200 PHILLY Administration
--- NOTE | 2020-01-19 22:19 | Progress Note ---
Assessment and Plan Imp: 1. Pneumonia due to Covid-19 2. ARDS 3. Acute respiratory failure, hypoxia 4. ESRD 5. Thrombocytopenia Rec: 1. ABX, Plaquenil per ID; monitor inflammatory marker, EKG, CXR periodically 2. Appears stable on HFNC; wean FiO2 then flow; if she were to worsen I would skip BIPAP and move directly to intubation 3. Keep as dry as possible with HD 4. Monitor platelets 5. DVT PPx CCt 31 minutes Plan of care reviewed w/ patient, she understands/agrees Subjective Date of service: 01/19/20 Principal diagnosis: Fluid overload Interval history: Pt. just finished HD when I saw her. Remains on 40LPM and 100% FiO2 HFNC. SOB a little better. Minimal cough. No new complaints. Active Medications Acetaminophen (Tylenol) 650 mg PO Q4H PRN PRN Reason: Pain MILD(1-3)/Fever >100.5/MEANS Last Admin: 01/12/20 18:23 Dose: 650 mg Documented by: Acetaminophen/Hydrocodone Bitart ([place] 5/325) 1 each PO Q6HR PRN PRN Reason: Pain, Moderate (4-6) Last Admin: 01/17/20 23:37 Dose: 1 each Documented by: Amlodipine Besylate (Amlodipine) 10 mg PO DAILY [facility] Last Admin: 01/19/20 09:20 Dose: 10 mg Documented by: Atorvastatin Calcium (Lipitor) 40 mg PO QHS [facility] Last Admin: 01/18/20 22:07 Dose: 40 mg Documented by: Cyclobenzaprine HCl (Flexeril) 5 mg PO QHS PRN PRN Reason: Muscle Spasm Last Admin: 01/10/20 23:17 Dose: 5 mg Documented by: Diphenhydramine HCl (Benadryl) 25 mg PO Q8HR PRN PRN Reason: Itching Last Admin: 01/12/20 00:50 Dose: 25 mg Documented by: Duloxetine HCl (Cymbalta) 30 mg PO QDAY [facility] Last Admin: 01/19/20 09:21 Dose: 30 mg Documented by: Famotidine (Pepcid) 20 mg PO DAILY [facility] Last Admin: 01/19/20 09:20 Dose: 20 mg Documented by: Heparin Sodium (Porcine) (Heparin) 5,000 unit SUB-Q Q12HR [facility] Last Admin: 01/19/20 09:21 Dose: 5,000 unit Documented by: Hydroxychloroquine Sulfate (Plaquenil) 200 mg PO BID [facility] Stop: 01/21/20 22:01 Last Admin: 01/19/20 09:21 Dose: 200 mg Documented by: Sodium Chloride (Nacl 0.9%) 100 mls @ 999 mls/hr IV SILVERIO PRN PRN Reason: Hypotension Ceftriaxone Sodium (Rocephin/Ns 1 Gm/50 Ml) 1 gm in 50 mls @ 100 mls/hr IV Q24HR [facility] Last Admin: 01/19/20 09:20 Dose: 100 mls/hr Documented by: Labetalol HCl (Labetalol) 100 mg PO Q8H [facility] Last Admin: 01/19/20 17:27 Dose: 100 mg Documented by: Magnesium Oxide (Mag-Ox) 400 mg PO QDAY [facility] Last Admin: 01/19/20 09:21 Dose: 400 mg Documented by: Ondansetron HCl (Zofran) 4 mg IV Q8H PRN PRN Reason: Nausea And Vomiting Last Admin: 01/13/20 02:50 Dose: 4 mg Documented by: Oxycodone/Acetaminophen (Percocet 5/325) 1 tab PO Q6H PRN PRN Reason: Pain, Moderate (4-6) Last Admin: 01/16/20 05:43 Dose: 1 tab Documented by: Sodium Chloride (Sodium Chloride Flush Syringe 10 Ml) 10 ml IV BID [facility] Last Admin: 01/19/20 09:22 Dose: 10 ml Documented by: Sodium Chloride (Sodium Chloride Flush Syringe 10 Ml) 10 ml IV PRN PRN PRN Reason: LINE FLUSH Tramadol HCl (Ultram) 50 mg PO Q12HR PRN PRN Reason: Pain, Moderate (4-6) Valsartan (Diovan) 80 mg PO DAILY [facility] Last Admin: 01/19/20 09:21 Dose: 80 mg Documented by: Zinc Sulfate (Zinc Sulfate) 220 mg PO DAILY@1200 [facility] Stop: 01/21/20 12:01 Last Admin: 01/19/20 12:33 Dose: 220 mg Documented by: Objective Vital Signs - 12hr 01/19/20 01/19/20 01/19/20 10:30 10:45 11:00 Temperature Pulse Rate 74 75 76 Respiratory Rate Blood Pressure 149/79 140/75 147/74 O2 Sat by Pulse Oximetry 01/19/20 01/19/20 01/19/20 11:15 11:30 11:45 Temperature Pulse Rate 76 79 78 Respiratory Rate Blood Pressure 152/77 140/77 144/77 O2 Sat by Pulse Oximetry 01/19/20 01/19/20 01/19/20 12:00 12:15 12:30 Temperature Pulse Rate 78 79 79 Respiratory Rate Blood Pressure 149/63 151/72 159/78 O2 Sat by Pulse Oximetry 01/19/20 01/19/20 01/19/20 12:48 16:54 21:52 Temperature 97.5 F L 98.7 F Pulse Rate 81 59 L Respiratory 20 22 Rate Blood Pressure 158/78 127/60 O2 Sat by Pulse 91 98 Oximetry Constitutional: alert, other (critically ill on HFNC) Eyes: non-icteric ENT: oropharynx moist Neck: supple Effort: normal Ascultation: Bilateral: rales Cardiovascular: regular rate and rhythm (no mrg) Gastrointestinal: normoactive bowel sounds, soft, non-tender, non-distended Integumentary: normal Extremities: no cyanosis, no edema, pink and warm Neurologic: normal mental status, non-focal exam, pupils equal and round, CN II- XII normal Psychiatric: mood appropriate, affect normal CBC and BMP: 01/18/20 06:25 01/18/20 06:25 ABG, PT/INR, D-dimer: ABG ABG pH 7.404 pH Units (7.350-7.450) 01/18/20 12:15 ABG pCO2 49.2 mm Hg 01/18/20 12:15 ABG pO2 66.5 mm Hg (80.0-90.0) L 01/18/20 12:15 ABG O2 Saturation 93.2 % (95.0-99.0) L 01/18/20 12:15 PT/INR, D-dimer PT 15.6 Sec. (12.2-14.9) H 01/09/20 12:55 INR 1.22 (0.87-1.13) H 01/09/20 12:55 D-Dimer 938.03 ng/mlDDU (0-234) H 01/18/20 06:25 Abnormal lab findings: Abnormal Labs 03/01/09/20 01/09/20 12:55 12:55 12:55 WBC 4.4 L RBC 3.44 L Hgb Hct RDW 17.0 H Plt Count Lymph % (Auto) 6.8 L [place] % (Auto) 13.6 H Lymph # 0.3 L Seg Neutrophils % 79.0 H PT 15.6 H INR 1.22 H D-Dimer ABG pO2 ABG HCO3 ABG O2 Saturation ABG Base Excess ABG Hemoglobin Oxyhemoglobin Sodium 130 L Chloride 88.9 L Carbon Dioxide 20 L BUN 41 H Creatinine 7.6 H Glucose 115 H POC Glucose Calcium Magnesium Ferritin Alkaline Phosphatase 153 H Lactate Dehydrogenase Troponin T 0.382 H* C-Reactive Protein NT-Pro-B Natriuret Pep 30935 H Total Protein Albumin 3.2 L 01/09/20 01/10/20 01/10/20 20:14 00:16 06:54 WBC 3.3 L RBC 3.00 L Hgb 9.2 L Hct 27.8 L RDW 17.2 H Plt Count Lymph % (Auto) 8.9 L [place] % (Auto) 11.5 H Lymph # 0.3 L Seg Neutrophils % 79.1 H PT INR D-Dimer ABG pO2 ABG HCO3 ABG O2 Saturation ABG Base Excess ABG Hemoglobin Oxyhemoglobin Sodium Chloride Carbon Dioxide BUN Creatinine Glucose POC Glucose Calcium Magnesium Ferritin Alkaline Phosphatase Lactate Dehydrogenase Troponin T 0.349 H* 0.328 H* C-Reactive Protein NT-Pro-B Natriuret Pep Total Protein Albumin 01/10/20 01/10/20 01/11/20 06:54 06:54 16:45 WBC RBC Hgb Hct RDW Plt Count Lymph % (Auto) [place] % (Auto) Lymph # Seg Neutrophils % PT INR D-Dimer ABG pO2 ABG HCO3 ABG O2 Saturation ABG Base Excess ABG Hemoglobin Oxyhemoglobin Sodium 133 L Chloride 90.6 L Carbon Dioxide BUN 50 H Creatinine 8.4 H Glucose 101 H POC Glucose 106 H Calcium 8.1 L Magnesium Ferritin Alkaline Phosphatase 148 H Lactate Dehydrogenase Troponin T 0.315 H* C-Reactive Protein NT-Pro-B Natriuret Pep Total Protein 5.4 L Albumin 2.7 L 01/12/20 01/13/20 01/13/20 16:01 06:11 06:11 WBC 3.1 L RBC 3.25 L Hgb 9.8 L Hct RDW 17.2 H Plt Count 136 L Lymph % (Auto) [place] % (Auto) Lymph # Seg Neutrophils % PT INR D-Dimer ABG pO2 ABG HCO3 ABG O2 Saturation ABG Base Excess ABG Hemoglobin Oxyhemoglobin Sodium 135 L Chloride 93.4 L Carbon Dioxide BUN 19 H Creatinine 4.5 H Glucose 120 H POC Glucose Calcium 7.8 L Magnesium 1.40 L Ferritin Alkaline Phosphatase Lactate Dehydrogenase Troponin T C-Reactive Protein NT-Pro-B Natriuret Pep Total Protein Albumin 01/16/20 01/16/20 01/16/20 08:35 11:49 14:11 WBC RBC Hgb Hct RDW Plt Count Lymph % (Auto) [place] % (Auto) Lymph # Seg Neutrophils % PT INR D-Dimer ABG pO2 48.4 L ABG HCO3 30.5 H ABG O2 Saturation 81.9 L ABG Base Excess 4.6 H ABG Hemoglobin 10.5 L Oxyhemoglobin 80.1 L Sodium Chloride Carbon Dioxide BUN Creatinine Glucose POC Glucose 126 H 119 H Calcium Magnesium Ferritin Alkaline Phosphatase Lactate Dehydrogenase Troponin T C-Reactive Protein NT-Pro-B Natriuret Pep Total Protein Albumin 01/16/20 01/16/20 01/16/20 15:38 15:38 15:38 WBC RBC Hgb Hct RDW Plt Count Lymph % (Auto) [place] % (Auto) Lymph # Seg Neutrophils % PT INR D-Dimer 1104.64 H ABG pO2 ABG HCO3 ABG O2 Saturation ABG Base Excess ABG Hemoglobin Oxyhemoglobin Sodium Chloride Carbon Dioxide BUN Creatinine Glucose POC Glucose Calcium Magnesium Ferritin > 2000.0 H Alkaline Phosphatase Lactate Dehydrogenase 690 H Troponin T C-Reactive Protein 24.10 H NT-Pro-B Natriuret Pep Total Protein Albumin 01/16/20 01/18/20 01/18/20 18:11 06:25 06:25 WBC RBC 3.15 L Hgb 9.4 L Hct 29.4 L RDW 17.5 H Plt Count 135 L Lymph % (Auto) 3.8 L [place] % (Auto) Lymph # 0.2 L Seg Neutrophils % 88.8 H PT INR D-Dimer ABG pO2 ABG HCO3 ABG O2 Saturation ABG Base Excess ABG Hemoglobin Oxyhemoglobin Sodium Chloride 96.8 L Carbon Dioxide BUN 26 H Creatinine 4.2 H Glucose 115 H POC Glucose 130 H Calcium 8.2 L Magnesium Ferritin Alkaline Phosphatase Lactate Dehydrogenase 537 H Troponin T C-Reactive Protein 17.10 H NT-Pro-B Natriuret Pep Total Protein Albumin 01/18/20 01/18/20 01/18/20 06:25 06:25 12:15 WBC RBC Hgb Hct RDW Plt Count Lymph % (Auto) [place] % (Auto) Lymph # Seg Neutrophils % PT INR D-Dimer 938.03 H ABG pO2 66.5 L ABG HCO3 30.1 H ABG O2 Saturation 93.2 L ABG Base Excess 4.6 H ABG Hemoglobin 10.0 L Oxyhemoglobin 91.3 L Sodium Chloride Carbon Dioxide BUN Creatinine Glucose POC Glucose Calcium Magnesium Ferritin 3105.0 H Alkaline Phosphatase Lactate Dehydrogenase Troponin T C-Reactive Protein NT-Pro-B Natriuret Pep Total Protein Albumin Chest x-ray: report reviewed, image reviewed (bilateral infiltrates) Allied health notes reviewed: nursing
[2020-01-20] MEDS: oxyCODONE /ACETAMINOPHEN 5-325MG TAB PO PRN (03:19)
[2020-01-20 08:25] LABS: C-Reactive Protein 19.3 mg/dL (0.00-1.30)
--- NOTE | 2020-01-20 09:43 | Progress Note ---
Assessment and Plan Assessment and plan: Suspected COVID- 19 Patient with very elevated inflammatory markers of ferritin, CRP, LDH and d- dimer. Bilateral pneumonia. Continue antibiotics per ID ARDS. Etiology secondary to above. Acute hypoxemic respiratory failure. Continue oxygen to maintain sats greater than 92% Appears stable on HFNC; wean FiO2 then flow Chest pain Stress test neg for ischemia GERD and costochondritis in differential diagnosis Volume overload s/p hemodialysis Nephrology consulted,following Acute on Chronic diastolic CHF exacerbation Secondary to volume overload End stage renal disease on dialysis Nephrology following T2DM (type 2 diabetes mellitus) Continue continue coverage Check hemoglobin A1c Hypertension Continue antihypertensives Hyponatremia Secondary to increased volume--dilutional DVT prophylaxis On heparin and GI prophylaxis 01/11 Covid 19 survey testing sent, nasal swab done 01/10 01/12 Patient has acute resp failure. may need Oxygen on dc. awaiting Covid result 01/13 Still has shortness of breath, awaiting Covid test. 01/14 Pt still dyspneic, await covid testing, Pulse ox 83% 01/16/2020. Patient remains dyspneic. Follow-up COVID testing. 01/17/2020. Patient still requiring large amounts of oxygen. Patient currently with 15 L satting at 95%. Patient with increased inflammatory markers. Follow- up chest x-ray today. 01/18/20--Patient still requiring large amounts of oxygen. Patient currently with 15 L %. Patient with increased inflammatory markers. 01/19/2020 very elevated inflammatory markers- ferritin> 2000, CRP >24, LDH> 600, d-dimer >1000 putting her at high risk for ARDS. Continue hydroxychloroquine 400 mg PO BID for 1 day then 200 mg PO BID for 4 days (total 5 days) with zinc 220 mg PO qday. Continue ceftriaxone. ContinueCOVID isolationprecautions pe r [facility] protocol. Continue serial Ferritin, LDH, D-Dimer, CRP every 48h 01/20/2020. Inflammatory markers remain elevated with ferritin 1826, LDH 496, CRP 19.3, and d-dimer 2072. Patient requiring high flow nasal cannula 40L, FiO2 80%. Pulmonary following. Continue antibiotics and Plaquenil. Continue COVID isolationprecautions per [facility] protocol. Patient has a high risk mortality and remains guarded. History Interval history: Due to lack of PPE and in an effort to conserve current PPE, visit made via telephone. Chart reviewed. Case discussed with nurses and consultants. Hospitalist Physical - Constitutional Vitals: Temp Pulse Resp BP Pulse Ox 98.1 F 69 22 136/64 88 01/20/20 05:26 01/20/20 05:26 01/20/20 05:26 01/20/20 05:26 01/20/20 05:26 General appearance: Present: no acute distress - EENT Eyes: Present: PERRL, EOM intact ENT: hearing intact, clear oral mucosa, dentition normal - Neck Neck: Present: supple, normal ROM - Respiratory Respiratory effort: normal Respiratory: bilateral: CTA - Cardiovascular Rhythm: regular Heart Sounds: Present: S1 & S2. Absent: gallop, rub - Extremities Extremities: no ischemia, No edema, Full ROM - Abdominal General gastrointestinal: soft, non-tender, non-distended, normal bowel sounds - Integumentary Integumentary: Present: clear, warm, dry - Neurologic Neurologic: CNII-XII intact, moves all extremities BREEZY score - Breezy Score Age > 65: (1) Yes Aspirin use within the Past 7 Days: (1) Yes 3 or more CAD Risk Factors: (1) Yes 2 or more Angina events in past 24 hrs: (1) Yes Known CAD with more than 50% Stenosis: (0) No Elevated Cardiac Markers: (0) No ST Deviation Greater than 0.5mm: (0) No BREEZY Score: 4 Results - Labs CBC & Chem 7: 01/18/20 06:25 01/18/20 06:25 Labs: Laboratory Last Values WBC 5.6 K/mm3 (4.5-11.0) 01/18/20 06:25 RBC 3.15 M/mm3 (3.65-5.03) L 01/18/20 06:25 Hgb 9.4 gm/dl (10.1-14.3) L 01/18/20 06:25 Hct 29.4 % (30.3-42.9) L 01/18/20 06:25 MCV 94 fl (79-97) 01/18/20 06:25 MCH 30 pg (28-32) 01/18/20 06:25 MCHC 32 % (30-34) 01/18/20 06:25 RDW 17.5 % (13.2-15.2) H 01/18/20 06:25 Plt Count 135 K/mm3 (140-440) L 01/18/20 06:25 Lymph % (Auto) 3.8 % (13.4-35.0) L 01/18/20 06:25 [place] % (Auto) 6.5 % (0.0-7.3) 01/18/20 06:25 Eos % (Auto) 0.8 % (0.0-4.3) 01/18/20 06:25 Baso % (Auto) 0.1 % (0.0-1.8) 01/18/20 06:25 Lymph # 0.2 K/mm3 (1.2-5.4) L 01/18/20 06:25 [place] # 0.4 K/mm3 (0.0-0.8) 01/18/20 06:25 Eos # 0.0 K/mm3 (0.0-0.4) 01/18/20 06:25 Baso # 0.0 K/mm3 (0.0-0.1) 01/18/20 06:25 Seg Neutrophils % 88.8 % (40.0-70.0) H 01/18/20 06:25 Seg Neutrophils # 5.0 K/mm3 (1.8-7.7) 01/18/20 06:25 PT 15.6 Sec. (12.2-14.9) H 01/09/20 12:55 INR 1.22 (0.87-1.13) H 01/09/20 12:55 APTT 31.5 Sec. (24.2-36.6) 01/09/20 12:55 D-Dimer 2072.25 ng/mlDDU (0-234) H 01/20/20 07:37 ABG pH 7.404 pH Units (7.350-7.450) 01/18/20 12:15 ABG pCO2 49.2 mm Hg 01/18/20 12:15 ABG pO2 66.5 mm Hg (80.0-90.0) L 01/18/20 12:15 ABG HCO3 30.1 mmol/L (20.0-26.0) H 01/18/20 12:15 ABG O2 Saturation 93.2 % (95.0-99.0) L 01/18/20 12:15 ABG O2 Content 12.9 (0.0-44) 01/18/20 12:15 ABG Base Excess 4.6 mmol/L (-2.0-3.0) H 01/18/20 12:15 ABG Hemoglobin 10.0 gm/dl (12.0-16.0) L 01/18/20 12:15 ABG Carboxyhemoglobin 1.7 % (0.0-5.0) 01/18/20 12:15 ABG Methemoglobin 0.4 % (0.0-1.5) 01/18/20 12:15 Oxyhemoglobin 91.3 % (95.0-99.0) L 01/18/20 12:15 FiO2 100 % 01/18/20 12:15 Sodium 138 mmol/L (137-145) 01/18/20 06:25 Potassium 3.9 mmol/L (3.6-5.0) 01/18/20 06:25 Chloride 96.8 mmol/L (98-107) L 01/18/20 06:25 Carbon Dioxide 25 mmol/L (22-30) 01/18/20 06:25 Anion Gap 20 mmol/L 01/18/20 06:25 BUN 26 mg/dL (7-17) H 01/18/20 06:25 Creatinine 4.2 mg/dL (0.7-1.2) H 01/18/20 06:25 Estimated GFR 13 ml/min 01/18/20 06:25 BUN/Creatinine Ratio 6 % 01/18/20 06:25 Glucose 115 mg/dL (65-100) H 01/18/20 06:25 POC Glucose 130 (70-105) H 01/16/20 18:11 Hemoglobin A1c 5.0 % (4-6) 01/10/20 06:54 Calcium 8.2 mg/dL (8.4-10.2) L 01/18/20 06:25 Phosphorus 3.30 mg/dL (2.5-4.5) 01/12/20 16:01 Magnesium 2.00 mg/dL (1.7-2.3) 01/13/20 06:11 Ferritin 1826.0 ng/mL (13.0-400.0) H 01/20/20 07:37 Total Bilirubin 0.30 mg/dL (0.1-1.2) 01/10/20 06:54 AST 30 units/L (5-40) 01/10/20 06:54 ALT 24 units/L (7-56) 01/10/20 06:54 Alkaline Phosphatase 148 units/L (35-129) H 01/10/20 06:54 Lactate Dehydrogenase 496 units/L (91-180) H 01/20/20 07:37 Troponin T 0.315 ng/mL (0.00-0.029) H* 01/10/20 06:54 C-Reactive Protein 19.30 mg/dL (0.00-1.30) H 01/20/20 07:37 NT-Pro-B Natriuret Pep 98365 pg/mL (0-900) H 01/09/20 12:55 Total Protein 5.4 g/dL (6.3-8.2) L 01/10/20 06:54 Albumin 2.7 g/dL (3.9-5) L 01/10/20 06:54 Albumin/Globulin Ratio 1.0 % 01/10/20 06:54 Triglycerides 82 mg/dL (2-149) 01/09/20 12:55 Cholesterol 123 mg/dL (50-199) 01/09/20 12:55 LDL Cholesterol Direct 66 mg/dL (50-130) 01/09/20 12:55 HDL Cholesterol 47 mg/dL (40-59) 01/09/20 12:55 Cholesterol/HDL Ratio 2.61 % 01/09/20 12:55 Miscellaneous Test See scanned result 01/11/20 Unknown Miscellaneous Test See scanned result 01/11/20 Unknown Pleitez/IV: Voiding Method Diaper IV Catheter Type [Right Peripheral IV External Jugular] IV Catheter Type [Left INT / Saline Lock External Jugular] Active Medications - Current Medications Current Medications: Generic Name Dose Route Start Last Admin Trade Name Freq PRN Reason Stop Dose Admin Acetaminophen 650 mg 01/09/20 16:33 01/12/20 18:23 Tylenol PO 650 mg Q4H PRN Administration Pain MILD(1-3)/Fever >100.5/MEANS Acetaminophen/Hydrocodone Bitart 1 each 01/09/20 16:15 01/17/20 23:37 [place] 5/325 PO 1 each Q6HR PRN Administration Pain, Moderate (4-6) Amlodipine Besylate 10 mg 01/09/20 17:00 01/19/20 09:20 Amlodipine PO 10 mg DAILY PHILLY Administration Atorvastatin Calcium 40 mg 01/09/20 22:00 01/19/20 22:23 Lipitor PO 40 mg QHS PHILLY Administration Cyclobenzaprine HCl 5 mg 01/09/20 16:27 01/10/20 23:17 Flexeril PO 5 mg QHS PRN Administration Muscle Spasm Diphenhydramine HCl 25 mg 01/09/20 16:15 01/12/20 00:50 Benadryl PO 25 mg Q8HR PRN Administration Itching Duloxetine HCl 30 mg 01/09/20 17:00 01/19/20 09:21 Cymbalta PO 30 mg QDAY PHILLY Administration Famotidine 20 mg 01/09/20 22:00 01/19/20 09:20 Pepcid PO 20 mg DAILY PHILLY Administration Heparin Sodium (Porcine) 5,000 unit 01/10/20 10:00 01/19/20 22:23 Heparin SUB-Q 5,000 unit Q12HR PHILLY Administration Hydroxychloroquine Sulfate 200 mg 01/18/20 10:00 01/19/20 22:23 Plaquenil PO 01/21/20 22:01 200 mg BID PHILLY Administration Sodium Chloride 100 mls @ 999 mls/hr 01/09/20 19:13 Nacl 0.9% IV SILVERIO PRN Hypotension Ceftriaxone Sodium 1 gm in 50 mls @ 100 mls/hr 01/17/20 11:00 01/19/20 09:20 Rocephin/Ns 1 Gm/50 Ml IV 100 mls/hr Q24HR PHILLY Administration Labetalol HCl 100 mg 01/09/20 17:00 01/20/20 00:13 Labetalol PO 100 mg Q8H PHILLY Administration Magnesium Oxide 400 mg 01/09/20 17:00 01/19/20 09:21 Mag-Ox PO 400 mg QDAY PHILLY Administration Ondansetron HCl 4 mg 01/09/20 16:33 01/13/20 02:50 Zofran IV 4 mg Q8H PRN Administration Nausea And Vomiting Oxycodone/Acetaminophen 1 tab 01/09/20 16:43 01/20/20 03:19 Percocet 5/325 PO 1 tab Q6H PRN Administration Pain, Moderate (4-6) Sodium Chloride 10 ml 01/09/20 22:00 01/19/20 22:23 Sodium Chloride Flush Syringe 10 Ml IV 10 ml BID PHILLY Administration Sodium Chloride 10 ml 01/09/20 16:33 Sodium Chloride Flush Syringe 10 Ml IV PRN PRN LINE FLUSH Tramadol HCl 50 mg 01/16/20 13:07 Ultram PO Q12HR PRN Pain, Moderate (4-6) Valsartan 80 mg 01/10/20 10:00 01/19/20 09:21 Diovan PO 80 mg DAILY PHILLY Administration Zinc Sulfate 220 mg 01/17/20 12:00 01/19/20 12:33 Zinc Sulfate PO 01/21/20 12:01 220 mg DAILY@1200 PHILLY Administration Nutrition/Malnutrition Assess - Dietary Evaluation Nutrition/Malnutrition Findings: Nutrition Notes Start: 01/17/20 13:49 Freq: Status: Active Protocol: Document 01/17/20 13:49 LM (Rec: 01/17/20 14:00 LM [email or web address]) Nutrition Notes Need for Assessment generated from: LOS Initial or Follow up Assessment Current Diagnosis CKD (stage V CKD),COPD, Diabetes,Hypertension,Heart Failure,Hyperlipidemia Current Diet renal Labs/Tests reviewed Pertinent Medications Mag-Ox Height 5 ft 6 in Weight 78.5 kg [place] Body Weight (kg) 59.09 BMI 27.9 Weight change and time frame 8% wt loss in 2 weeks Weight Status Overweight Subjective/Other Information Screen for LOS. Unable to speak to pt. Pt receiving HD at bedside. Noticed 0% intakes in chart. 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 Reviewed chart from 01/03/19 and 12/20/18. Pt weighed 85.6kg and 77.2 kg . Wt fluctuation could be due to fluid. 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 No Is Patient Ambulatory and/or Out of Bed No REE-([facility]-confined to bed) 5039.170 Calculation Used for Recommendations [place] Additional Notes Protein: 94g (>1.2g/kg) Fluid: per MD Nutrition Intervention Change Diet Order: Continue renal Add Supplement/Snack (indicate name/kcal [place] BID /protein ) Provides kCal: 850 Provides Protein (gm) 38 Goal #1 Meet at least 80% of energy and protein needs Anticipated Discharge Needs: Renal diet Follow-Up By: 01/21/20 Additional Comments F/U for full assessment, intakes
[2020-01-20] MEDS: cefTRIAXone/NS 1 GM/50 ML 1 GM/50 ML BAG IV SCH (10:18)
[2020-01-20] MEDS: MAGNESIUM OXIDE 400 MG TAB PO SCH (10:19)
[2020-01-20] MEDS: ONDANSETRON 4 MG/2 ML INJ IV PRN (10:19)
[2020-01-20] MEDS: HYDROXYCHLOROQUINE 200 MG TAB PO SCH ×2 (10:20→21:38)
[2020-01-20] MEDS: DULoxetine 30 MG CAP PO SCH (10:20)
[2020-01-20] MEDS: FAMOTIDINE 20 MG TAB PO SCH (10:20)
[2020-01-20] MEDS: amLODIPine 10 MG TAB PO SCH (10:21)
[2020-01-20] MEDS: VALSARTAN 40 MG TAB PO SCH (10:21)
[2020-01-20] MEDS: HEPARIN 5,000 UNIT/1 ML VIAL SUB-Q SCH ×2 (10:23→21:38)
[2020-01-20] MEDS: ZINC SULFATE 220 MG CAP PO SCH (12:00)
[2020-01-20] MEDS: HYDROcodone/ACETAMINOPHEN 5-325 MG TAB PO PRN (13:15)
--- NOTE | 2020-01-20 15:24 | Progress Note ---
Assessment and Plan - Patient Problems (1) Volume overload Current Visit: Yes Status: Acute Qualifiers: Plan to address problem: end-stage renal disease with fluid overload. Improving with fluid removal on dialysis. Hemodialysis again tomorrow (2) Pneumonia due to COVID-19 virus Current Visit: Yes Status: Acute Plan to address problem: continue antibiotics per infectious disease. (3) Anemia in CKD (chronic kidney disease) Current Visit: Yes Status: Acute Qualifiers: Chronic kidney disease stage: on chronic dialysis Qualified Code(s): N18.6 - End stage renal disease; D63.1 - Anemia in chronic kidney disease; Z99.2 - Dep endence on renal dialysis Plan to address problem: give erythropoietin on dialysis (4) T2DM (type 2 diabetes mellitus) Current Visit: Yes Status: Acute Qualifiers: Diabetes mellitus jail insulin use: unspecified jail insulin use status Plan to address problem: blood sugar management by primary attending. (5) Acute respiratory failure with hypoxia Current Visit: No Status: Acute Plan to address problem: ventilator management by pulmonary/project inspector (6) Hyponatremia Current Visit: No Status: Acute Plan to address problem: hypervolemic hyponatremia. Follow-up sodium with fluid removal on dialysis (7) Hypertensive chronic kidney disease with stage 5 chronic kidney disease or end stage renal disease Current Visit: No Status: Chronic Plan to address problem: follow-up blood pressure on current medications Subjective Date of service: 01/20/20 Principal diagnosis: Fluid overload Interval history: Patient lying in bed. she has no new complaints today. She actually feels a bit better. Breathing better Objective - Exam Narrative Exam: elderly -Prydeinig female lying in bed in no acute distress HEENT: Normocephalic atraumatic, pupils equal round reactive to light Normal oropharynx, Neck: Supple, no venous distention, no goiter CVS: S1S2 RRR No murmur, rub or gallop Lungs: diminished breath sounds bilaterally, Abdomen: Full, soft, nontender, no organomegaly no bruit, bowel sounds are present Extremities: No edema, no cyanosis or clubbing Urinary: Deferred Musculo-skeletal: No joint deformities or swelling Neuro: Awake,looks dull, no focal deficits - Vital Signs Vital signs: Vital Signs - 12hr 01/20/20 01/20/20 01/20/20 05:26 08:12 10:00 Temperature 98.1 F Pulse Rate 69 71 Pulse Rate [ 86 Left Apical] Pulse Rate [ 86 Left Radial] Pulse Rate [ 86 Right Radial] Respiratory 22 25 H Rate Blood Pressure 136/64 143/68 O2 Sat by Pulse 88 93 94 Oximetry 01/20/20 01/20/20 01/20/20 10:14 10:21 11:16 Temperature 97.5 F L Pulse Rate 75 89 Pulse Rate [ Left Apical] Pulse Rate [ Left Radial] Pulse Rate [ Right Radial] Respiratory 20 Rate Blood Pressure 147/69 136/69 141/71 O2 Sat by Pulse 94 100 Oximetry - Lab 01/18/20 06:25 01/18/20 06:25 Most recent lab results ABG pH 7.404 pH Units (7.350-7.450) 01/18/20 12:15 ABG pCO2 49.2 mm Hg 01/18/20 12:15 ABG pO2 66.5 mm Hg (80.0-90.0) L 01/18/20 12:15 ABG HCO3 30.1 mmol/L (20.0-26.0) H 01/18/20 12:15 ABG O2 Saturation 93.2 % (95.0-99.0) L 01/18/20 12:15 Calcium 8.2 mg/dL (8.4-10.2) L 01/18/20 06:25 Phosphorus 3.30 mg/dL (2.5-4.5) 01/12/20 16:01 Magnesium 2.00 mg/dL (1.7-2.3) 01/13/20 06:11 Medications & Allergies - Medications Allergies/Adverse Reactions: Allergies cheese Allergy (Mild, Verified 12/20/19 10:19) Itching iodine Allergy (Mild, Verified 12/20/19 10:16) Anaphylaxis clonidine Allergy (Verified 12/19/19 04:13) Anaphylaxis shellfish derived Adverse Reaction (Verified 12/19/19 04:13) Angioedema Home Medications: Home Medications Medication Instructions Recorded Confirmed Last Taken Type Atorvastatin [Lipitor] 40 mg PO DAILY 11/06/19 01/13/20 01/02/20 10:00 History Acetaminophen [Acetaminophen 8 650 mg PO Q8H PRN #30 tablet.er 11/21/19 01/13/20 01/03/20 22:00 Rx Hour] Cyclobenzaprine HCl [Flexeril 5 MG 5 mg PO QHS PRN #20 tab 11/21/19 01/13/20 01/01/20 22:00 Rx TAB] HYDROcodone/APAP 5-325 [[place] 1 each PO Q6HR PRN #18 tablet 12/13/19 01/13/20 01/01/20 22:00 Rx 5-325 mg TAB] amLODIPine 10 mg PO DAILY 90 Days #90 tab 12/18/19 01/13/20 01/01/20 10:00 Rx Ibuprofen 800 mg PO TID 12/19/19 01/13/20 01/02/20 22:00 History Magnesium Oxide [Mag-Ox] 400 mg PO QDAY 12/19/19 01/13/20 01/03/20 10:00 History diphenhydrAMINE [Benadryl CAP] 25 mg PO Q8HR PRN 12/19/19 01/13/20 01/03/20 21:00 History labetaloL [Labetalol 100mg TAB] 100 mg PO Q8H #90 tablet 12/21/19 01/13/20 01/02/20 10:00 Rx traMADoL [Ultram 50 MG tab] 50 mg PO Q6HR PRN #20 tablet 12/29/19 01/13/20 12/31/19 10:00 Rx DULoxetine [Cymbalta] 30 mg PO QDAY #30 capsule 01/04/20 01/13/20 Unknown Rx Valsartan [Diovan] 80 mg PO DAILY #30 tablet 01/04/20 01/13/20 Unknown Rx Active Medications: Generic Name Dose Route Start Last Admin [facility] Name [facility] PRN Reason Stop Dose Admin Acetaminophen 650 mg 01/09/20 16:33 01/12/20 18:23 Tylenol PO 650 mg Q4H PRN Administration Pain MILD(1-3)/Fever >100.5/MEANS Acetaminophen/Hydrocodone Bitart 1 each 01/09/20 16:15 01/20/20 13:15 [place] 5/325 PO 1 each Q6HR PRN Administration Pain, Moderate (4-6) Amlodipine Besylate 10 mg 01/09/20 17:00 01/20/20 10:21 Amlodipine PO 10 mg DAILY PHILLY Administration Atorvastatin Calcium 40 mg 01/09/20 22:00 01/19/20 22:23 Lipitor PO 40 mg QHS PHILLY Administration Cyclobenzaprine HCl 5 mg 01/09/20 16:27 01/10/20 23:17 Flexeril PO 5 mg QHS PRN Administration Muscle Spasm Diphenhydramine HCl 25 mg 01/09/20 16:15 01/12/20 00:50 Benadryl PO 25 mg Q8HR PRN Administration Itching Duloxetine HCl 30 mg 01/09/20 17:00 01/20/20 10:20 Cymbalta PO 30 mg QDAY PHILLY Administration Famotidine 20 mg 01/09/20 22:00 01/20/20 10:20 Pepcid PO 20 mg DAILY PHILLY Administration Heparin Sodium (Porcine) 5,000 unit 01/10/20 10:00 01/20/20 10:23 Heparin SUB-Q 5,000 unit Q12HR PHILLY Administration Hydroxychloroquine Sulfate 200 mg 01/18/20 10:00 01/20/20 10:20 Plaquenil PO 01/21/20 22:01 200 mg BID PHILLY Administration Sodium Chloride 100 mls @ 999 mls/hr 01/09/20 19:13 Nacl 0.9% IV SILVERIO PRN Hypotension Ceftriaxone Sodium 1 gm in 50 mls @ 100 mls/hr 01/17/20 11:00 01/20/20 10:18 Rocephin/Ns 1 Gm/50 Ml IV 100 mls/hr Q24HR PHILLY Administration Labetalol HCl 100 mg 01/09/20 17:00 01/20/20 09:00 Labetalol PO 100 mg Q8H PHILLY Administration Magnesium Oxide 400 mg 01/09/20 17:00 01/20/20 10:19 Mag-Ox PO 400 mg QDAY PHILLY Administration Ondansetron HCl 4 mg 01/09/20 16:33 01/20/20 10:19 Zofran IV 4 mg Q8H PRN Administration Nausea And Vomiting Oxycodone/Acetaminophen 1 tab 01/09/20 16:43 01/20/20 03:19 Percocet 5/325 PO 1 tab Q6H PRN Administration Pain, Moderate (4-6) Sodium Chloride 10 ml 01/09/20 22:00 01/20/20 10:22 Sodium Chloride Flush Syringe 10 Ml IV 10 ml BID PHILLY Administration Sodium Chloride 10 ml 01/09/20 16:33 Sodium Chloride Flush Syringe 10 Ml IV PRN PRN LINE FLUSH Tramadol HCl 50 mg 01/16/20 13:07 01/20/20 10:19 Ultram PO 50 mg Q12HR PRN Administration Pain, Moderate (4-6) Valsartan 80 mg 01/10/20 10:00 01/20/20 10:21 Diovan PO 80 mg DAILY PHILLY Administration Zinc Sulfate 220 mg 01/17/20 12:00 01/20/20 12:00 Zinc Sulfate PO 01/21/20 12:01 220 mg DAILY@1200 PHILLY Administration
[2020-01-20] MEDS ORDERED: MAGNESIUM SULFATE 2 GM/50 ML BAG IV ONE (16:00)
[2020-01-20 17:42] LABS: ABG Base Excess 4.9 mmol/L (-2.0-3.0); ABG HCO3 29.9 mmol/L (20.0-26.0); ABG Methemoglobin 0.5 % (0.0-1.5); ABG Oxygen Saturation 91.7 % (95.0-99.0); ABG PCO2 46.9 mm Hg; ABG PH 7.423 pH Units (7.350-7.450); ABG PO2 61.1 mm Hg (80.0-90.0)
--- NOTE | 2020-01-20 19:59 | Progress Note ---
Assessment and Plan Imp: 1. Pneumonia due to Covid-19 2. ARDS 3. Acute respiratory failure, hypoxia 4. ESRD 5. Thrombocytopenia Rec: 1. ABX, Plaquenil per ID; monitor inflammatory marker, EKG, CXR periodically 2. Appears stable on HFNC; wean FiO2 then flow; if she were to worsen w/ respect to oxygenation or work of breathing I would skip BIPAP and move directly to intubation; confirmed with RN that the patient is on continuous pulse oximetry 3. Keep as dry as possible with HD 4. Monitor platelets 5. DVT PPx CCt 31 minutes Plan of care reviewed w/ patient, she understands/agrees Subjective Date of service: 01/20/20 Principal diagnosis: Pneumonia Interval history: Remains on 40LPM and 100% FiO2 HFNC. She is arousable and comfortable appearing. SOB is the same. Minimal cough. No new complaints. Active Medications Acetaminophen (Tylenol) 650 mg PO Q4H PRN PRN Reason: Pain MILD(1-3)/Fever >100.5/MEANS Last Admin: 01/12/20 18:23 Dose: 650 mg Documented by: Acetaminophen/Hydrocodone Bitart ([place] 5/325) 1 each PO Q6HR PRN PRN Reason: Pain, Moderate (4-6) Last Admin: 01/20/20 13:15 Dose: 1 each Documented by: Amlodipine Besylate (Amlodipine) 10 mg PO DAILY [facility] Last Admin: 01/20/20 10:21 Dose: 10 mg Documented by: Atorvastatin Calcium (Lipitor) 40 mg PO QHS [facility] Last Admin: 01/19/20 22:23 Dose: 40 mg Documented by: Cyclobenzaprine HCl (Flexeril) 5 mg PO QHS PRN PRN Reason: Muscle Spasm Last Admin: 01/10/20 23:17 Dose: 5 mg Documented by: Diphenhydramine HCl (Benadryl) 25 mg PO Q8HR PRN PRN Reason: Itching Last Admin: 01/12/20 00:50 Dose: 25 mg Documented by: Duloxetine HCl (Cymbalta) 30 mg PO QDAY [facility] Last Admin: 01/20/20 10:20 Dose: 30 mg Documented by: Famotidine (Pepcid) 20 mg PO DAILY [facility] Last Admin: 01/20/20 10:20 Dose: 20 mg Documented by: Heparin Sodium (Porcine) (Heparin) 5,000 unit SUB-Q Q12HR [facility] Last Admin: 01/20/20 10:23 Dose: 5,000 unit Documented by: Hydroxychloroquine Sulfate (Plaquenil) 200 mg PO BID [facility] Stop: 01/21/20 22:01 Last Admin: 01/20/20 10:20 Dose: 200 mg Documented by: Sodium Chloride (Nacl 0.9%) 100 mls @ 999 mls/hr IV SILVERIO PRN PRN Reason: Hypotension Ceftriaxone Sodium (Rocephin/Ns 1 Gm/50 Ml) 1 gm in 50 mls @ 100 mls/hr IV Q24HR [facility] Last Admin: 01/20/20 10:18 Dose: 100 mls/hr Documented by: Magnesium Oxide (Mag-Ox) 400 mg PO QDAY [facility] Last Admin: 01/20/20 10:19 Dose: 400 mg Documented by: Metoprolol Tartrate (Metoprolol) 50 mg PO BID [facility] Ondansetron HCl (Zofran) 4 mg IV Q8H PRN PRN Reason: Nausea And Vomiting Last Admin: 01/20/20 10:19 Dose: 4 mg Documented by: Oxycodone/Acetaminophen (Percocet 5/325) 1 tab PO Q6H PRN PRN Reason: Pain, Moderate (4-6) Last Admin: 01/20/20 03:19 Dose: 1 tab Documented by: Sodium Chloride (Sodium Chloride Flush Syringe 10 Ml) 10 ml IV BID [facility] Last Admin: 01/20/20 10:22 Dose: 10 ml Documented by: Sodium Chloride (Sodium Chloride Flush Syringe 10 Ml) 10 ml IV PRN PRN PRN Reason: LINE FLUSH Tramadol HCl (Ultram) 50 mg PO Q12HR PRN PRN Reason: Pain, Moderate (4-6) Last Admin: 01/20/20 10:19 Dose: 50 mg Documented by: Valsartan (Diovan) 80 mg PO DAILY [facility] Last Admin: 01/20/20 10:21 Dose: 80 mg Documented by: Zinc Sulfate (Zinc Sulfate) 220 mg PO DAILY@1200 [facility] Stop: 01/21/20 12:01 Last Admin: 01/20/20 12:00 Dose: 220 mg Documented by: Objective Vital Signs - 12hr 04/05/20 04/05/20 04/05/20 08:12 10:00 10:14 Temperature Pulse Rate 71 75 Pulse Rate [ 86 Left Apical] Pulse Rate [ 86 Left Radial] Pulse Rate [ 86 Right Radial] Respiratory 25 H Rate Blood Pressure 143/68 147/69 Blood Pressure [Right] O2 Sat by Pulse 93 95 94 Oximetry 01/20/20 01/20/20 01/20/20 10:21 11:16 12:11 Temperature 97.5 F L Pulse Rate 89 Pulse Rate [ Left Apical] Pulse Rate [ Left Radial] Pulse Rate [ Right Radial] Respiratory 20 Rate Blood Pressure 136/69 141/71 Blood Pressure [Right] O2 Sat by Pulse 100 92 Oximetry 01/20/20 18:00 Temperature 98.6 F Pulse Rate 70 Pulse Rate [ Left Apical] Pulse Rate [ Left Radial] Pulse Rate [ Right Radial] Respiratory 22 Rate Blood Pressure Blood Pressure 137/66 [Right] O2 Sat by Pulse 96 Oximetry Constitutional: alert, other (critically ill on HFNC) Eyes: non-icteric ENT: oropharynx moist Neck: supple Effort: normal Ascultation: Bilateral: rales Cardiovascular: regular rate and rhythm (no mrg) Gastrointestinal: normoactive bowel sounds, soft, non-tender, non-distended Integumentary: normal Extremities: no cyanosis, no edema, pink and warm Neurologic: normal mental status, non-focal exam, pupils equal and round, CN II- XII normal Psychiatric: mood appropriate, affect normal CBC and BMP: 01/18/20 06:25 01/18/20 06:25 ABG, PT/INR, D-dimer: ABG ABG pH 7.423 pH Units (7.350-7.450) 01/20/20 17:30 ABG pCO2 46.9 mm Hg 01/20/20 17:30 ABG pO2 61.1 mm Hg (80.0-90.0) L 01/20/20 17:30 ABG O2 Saturation 91.7 % (95.0-99.0) L 01/20/20 17:30 PT/INR, D-dimer PT 15.6 Sec. (12.2-14.9) H 01/09/20 12:55 INR 1.22 (0.87-1.13) H 01/09/20 12:55 D-Dimer 2072.25 ng/mlDDU (0-234) H 01/20/20 07:37 Abnormal lab findings: Abnormal Labs 01/09/20 01/09/20 01/09/20 12:55 12:55 12:55 WBC 4.4 L RBC 3.44 L Hgb Hct RDW 17.0 H Plt Count Lymph % (Auto) 6.8 L [place] % (Auto) 13.6 H Lymph # 0.3 L Seg Neutrophils % 79.0 H PT 15.6 H INR 1.22 H D-Dimer ABG pO2 ABG HCO3 ABG O2 Saturation ABG Base Excess ABG Hemoglobin Oxyhemoglobin Sodium 130 L Chloride 88.9 L Carbon Dioxide 20 L BUN 41 H Creatinine 7.6 H Glucose 115 H POC Glucose Calcium Magnesium Ferritin Alkaline Phosphatase 153 H Lactate Dehydrogenase Troponin T 0.382 H* C-Reactive Protein NT-Pro-B Natriuret Pep 50830 H Total Protein Albumin 3.2 L 01/09/20 01/10/20 01/10/20 20:14 00:16 06:54 WBC 3.3 L RBC 3.00 L Hgb 9.2 L Hct 27.8 L RDW 17.2 H Plt Count Lymph % (Auto) 8.9 L [place] % (Auto) 11.5 H Lymph # 0.3 L Seg Neutrophils % 79.1 H PT INR D-Dimer ABG pO2 ABG HCO3 ABG O2 Saturation ABG Base Excess ABG Hemoglobin Oxyhemoglobin Sodium Chloride Carbon Dioxide BUN Creatinine Glucose POC Glucose Calcium Magnesium Ferritin Alkaline Phosphatase Lactate Dehydrogenase Troponin T 0.349 H* 0.328 H* C-Reactive Protein NT-Pro-B Natriuret Pep Total Protein Albumin 01/10/20 01/10/20 01/11/20 06:54 06:54 16:45 WBC RBC Hgb Hct RDW Plt Count Lymph % (Auto) [place] % (Auto) Lymph # Seg Neutrophils % PT INR D-Dimer ABG pO2 ABG HCO3 ABG O2 Saturation ABG Base Excess ABG Hemoglobin Oxyhemoglobin Sodium 133 L Chloride 90.6 L Carbon Dioxide BUN 50 H Creatinine 8.4 H Glucose 101 H POC Glucose 106 H Calcium 8.1 L Magnesium Ferritin Alkaline Phosphatase 148 H Lactate Dehydrogenase Troponin T 0.315 H* C-Reactive Protein NT-Pro-B Natriuret Pep Total Protein 5.4 L Albumin 2.7 L 01/12/20 01/13/20 01/13/20 16:01 06:11 06:11 WBC 3.1 L RBC 3.25 L Hgb 9.8 L Hct RDW 17.2 H Plt Count 136 L Lymph % (Auto) [place] % (Auto) Lymph # Seg Neutrophils % PT INR D-Dimer ABG pO2 ABG HCO3 ABG O2 Saturation ABG Base Excess ABG Hemoglobin Oxyhemoglobin Sodium 135 L Chloride 93.4 L Carbon Dioxide BUN 19 H Creatinine 4.5 H Glucose 120 H POC Glucose Calcium 7.8 L Magnesium 1.40 L Ferritin Alkaline Phosphatase Lactate Dehydrogenase Troponin T C-Reactive Protein NT-Pro-B Natriuret Pep Total Protein Albumin 01/16/20 01/16/20 01/16/20 08:35 11:49 14:11 WBC RBC Hgb Hct RDW Plt Count Lymph % (Auto) [place] % (Auto) Lymph # Seg Neutrophils % PT INR D-Dimer ABG pO2 48.4 L ABG HCO3 30.5 H ABG O2 Saturation 81.9 L ABG Base Excess 4.6 H ABG Hemoglobin 10.5 L Oxyhemoglobin 80.1 L Sodium Chloride Carbon Dioxide BUN Creatinine Glucose POC Glucose 126 H 119 H Calcium Magnesium Ferritin Alkaline Phosphatase Lactate Dehydrogenase Troponin T C-Reactive Protein NT-Pro-B Natriuret Pep Total Protein Albumin 01/16/20 01/16/20 01/16/20 15:38 15:38 15:38 WBC RBC Hgb Hct RDW Plt Count Lymph % (Auto) [place] % (Auto) Lymph # Seg Neutrophils % PT INR D-Dimer 1104.64 H ABG pO2 ABG HCO3 ABG O2 Saturation ABG Base Excess ABG Hemoglobin Oxyhemoglobin Sodium Chloride Carbon Dioxide BUN Creatinine Glucose POC Glucose Calcium Magnesium Ferritin > 2000.0 H Alkaline Phosphatase Lactate Dehydrogenase 690 H Troponin T C-Reactive Protein 24.10 H NT-Pro-B Natriuret Pep Total Protein Albumin 01/16/20 01/18/20 01/18/20 18:11 06:25 06:25 WBC RBC 3.15 L Hgb 9.4 L Hct 29.4 L RDW 17.5 H Plt Count 135 L Lymph % (Auto) 3.8 L [place] % (Auto) Lymph # 0.2 L Seg Neutrophils % 88.8 H PT INR D-Dimer ABG pO2 ABG HCO3 ABG O2 Saturation ABG Base Excess ABG Hemoglobin Oxyhemoglobin Sodium Chloride 96.8 L Carbon Dioxide BUN 26 H Creatinine 4.2 H Glucose 115 H POC Glucose 130 H Calcium 8.2 L Magnesium Ferritin Alkaline Phosphatase Lactate Dehydrogenase 537 H Troponin T C-Reactive Protein 17.10 H NT-Pro-B Natriuret Pep Total Protein Albumin 01/18/20 01/18/20 01/18/20 06:25 06:25 12:15 WBC RBC Hgb Hct RDW Plt Count Lymph % (Auto) [place] % (Auto) Lymph # Seg Neutrophils % PT INR D-Dimer 938.03 H ABG pO2 66.5 L ABG HCO3 30.1 H ABG O2 Saturation 93.2 L ABG Base Excess 4.6 H ABG Hemoglobin 10.0 L Oxyhemoglobin 91.3 L Sodium Chloride Carbon Dioxide BUN Creatinine Glucose POC Glucose Calcium Magnesium Ferritin 3105.0 H Alkaline Phosphatase Lactate Dehydrogenase Troponin T C-Reactive Protein NT-Pro-B Natriuret Pep Total Protein Albumin 01/20/20 01/20/20 01/20/20 07:37 07:37 07:37 WBC RBC Hgb Hct RDW Plt Count Lymph % (Auto) [place] % (Auto) Lymph # Seg Neutrophils % PT INR D-Dimer 2072.25 H ABG pO2 ABG HCO3 ABG O2 Saturation ABG Base Excess ABG Hemoglobin Oxyhemoglobin Sodium Chloride Carbon Dioxide BUN Creatinine Glucose POC Glucose Calcium Magnesium Ferritin 1826.0 H Alkaline Phosphatase Lactate Dehydrogenase 496 H Troponin T C-Reactive Protein 19.30 H NT-Pro-B Natriuret Pep Total Protein Albumin 01/20/20 17:30 WBC RBC Hgb Hct RDW Plt Count Lymph % (Auto) [place] % (Auto) Lymph # Seg Neutrophils % PT INR D-Dimer ABG pO2 61.1 L ABG HCO3 29.9 H ABG O2 Saturation 91.7 L ABG Base Excess 4.9 H ABG Hemoglobin 9.0 L Oxyhemoglobin 89.5 L Sodium Chloride Carbon Dioxide BUN Creatinine Glucose POC Glucose Calcium Magnesium Ferritin Alkaline Phosphatase Lactate Dehydrogenase Troponin T C-Reactive Protein NT-Pro-B Natriuret Pep Total Protein Albumin Chest x-ray: report reviewed, image reviewed Allied health notes reviewed: nursing
[2020-01-20] MEDS: METOPROLOL TARTRATE 50 MG TAB PO SCH (21:38)
[2020-01-21] MEDS: CEFEPIME/NS 1 GM/100 ML 1 GM/100 ML BAG IV SCH (05:15)
[2020-01-21 05:27] LABS: Calcium 8.5 mg/dL (8.4-10.2)
--- NOTE | 2020-01-21 10:18 | Progress Note ---
Assessment and Plan 64 y/o female with COVID positive, viral pneumonia with some pulmonary vascular congestion superimposed. 1. Experimental therapy for COVID 2. Maintain sats of 88% and greater 3. Do not give these individuals fluids, please run them on the dry side if possible. She is a dialysis patient so the more fluid you can pull the better. 4. If patient progresses could give bipap a one hour trial to see if there is improvement, repeat ABG, if not would suggest elective intubation Given age and multiple comorbids, prognosis is poor if oxygen requirement continues to increase. Subjective Date of service: 01/21/20 Principal diagnosis: Pneumonia Interval history: No acute events. Still on HFNC, O2 weaned to 95% overnight. Sats documented at 98%. No new sats documented as of yet this am. Per renal, HD today. Objective Vital Signs - 12hr 01/20/20 01/21/20 01/21/20 22:29 04:59 06:34 Temperature 97.8 F 97.5 F L Pulse Rate 66 71 Respiratory 24 25 H Rate Blood Pressure 139/72 135/65 O2 Sat by Pulse 89 87 89 Oximetry Constitutional: alert, other (critically ill on HFNC) Eyes: non-icteric ENT: oropharynx moist Neck: supple Effort: normal Ascultation: Bilateral: rales Cardiovascular: regular rate and rhythm (no mrg) Gastrointestinal: normoactive bowel sounds, soft, non-tender, non-distended Integumentary: normal Extremities: no cyanosis, no edema, pink and warm Neurologic: normal mental status, non-focal exam, pupils equal and round, CN II- XII normal Psychiatric: mood appropriate, affect normal CBC and BMP: 01/18/20 06:25 01/21/20 03:59 ABG, PT/INR, D-dimer: ABG ABG pH 7.423 pH Units (7.350-7.450) 01/20/20 17:30 ABG pCO2 46.9 mm Hg 01/20/20 17:30 ABG pO2 61.1 mm Hg (80.0-90.0) L 01/20/20 17:30 ABG O2 Saturation 91.7 % (95.0-99.0) L 01/20/20 17:30 PT/INR, D-dimer PT 15.6 Sec. (12.2-14.9) H 01/09/20 12:55 INR 1.22 (0.87-1.13) H 01/09/20 12:55 D-Dimer 2072.25 ng/mlDDU (0-234) H 01/20/20 07:37 Abnormal lab findings: Abnormal Labs 01/09/20 01/09/20 01/09/20 12:55 12:55 12:55 WBC 4.4 L RBC 3.44 L Hgb Hct RDW 17.0 H Plt Count Lymph % (Auto) 6.8 L [place] % (Auto) 13.6 H Lymph # 0.3 L Seg Neutrophils % 79.0 H PT 15.6 H INR 1.22 H D-Dimer ABG pO2 ABG HCO3 ABG O2 Saturation ABG Base Excess ABG Hemoglobin Oxyhemoglobin Sodium 130 L Chloride 88.9 L Carbon Dioxide 20 L BUN 41 H Creatinine 7.6 H Glucose 115 H POC Glucose Calcium Magnesium Ferritin Alkaline Phosphatase 153 H Lactate Dehydrogenase Troponin T 0.382 H* C-Reactive Protein NT-Pro-B Natriuret Pep 49591 H Total Protein Albumin 3.2 L 01/09/20 01/10/20 01/10/20 20:14 00:16 06:54 WBC 3.3 L RBC 3.00 L Hgb 9.2 L Hct 27.8 L RDW 17.2 H Plt Count Lymph % (Auto) 8.9 L [place] % (Auto) 11.5 H Lymph # 0.3 L Seg Neutrophils % 79.1 H PT INR D-Dimer ABG pO2 ABG HCO3 ABG O2 Saturation ABG Base Excess ABG Hemoglobin Oxyhemoglobin Sodium Chloride Carbon Dioxide BUN Creatinine Glucose POC Glucose Calcium Magnesium Ferritin Alkaline Phosphatase Lactate Dehydrogenase Troponin T 0.349 H* 0.328 H* C-Reactive Protein NT-Pro-B Natriuret Pep Total Protein Albumin 01/10/20 01/10/20 01/11/20 06:54 06:54 16:45 WBC RBC Hgb Hct RDW Plt Count Lymph % (Auto) [place] % (Auto) Lymph # Seg Neutrophils % PT INR D-Dimer ABG pO2 ABG HCO3 ABG O2 Saturation ABG Base Excess ABG Hemoglobin Oxyhemoglobin Sodium 133 L Chloride 90.6 L Carbon Dioxide BUN 50 H Creatinine 8.4 H Glucose 101 H POC Glucose 106 H Calcium 8.1 L Magnesium Ferritin Alkaline Phosphatase 148 H Lactate Dehydrogenase Troponin T 0.315 H* C-Reactive Protein NT-Pro-B Natriuret Pep Total Protein 5.4 L Albumin 2.7 L 01/12/20 01/13/20 01/13/20 16:01 06:11 06:11 WBC 3.1 L RBC 3.25 L Hgb 9.8 L Hct RDW 17.2 H Plt Count 136 L Lymph % (Auto) [place] % (Auto) Lymph # Seg Neutrophils % PT INR D-Dimer ABG pO2 ABG HCO3 ABG O2 Saturation ABG Base Excess ABG Hemoglobin Oxyhemoglobin Sodium 135 L Chloride 93.4 L Carbon Dioxide BUN 19 H Creatinine 4.5 H Glucose 120 H POC Glucose Calcium 7.8 L Magnesium 1.40 L Ferritin Alkaline Phosphatase Lactate Dehydrogenase Troponin T C-Reactive Protein NT-Pro-B Natriuret Pep Total Protein Albumin 01/16/20 01/16/20 01/16/20 08:35 11:49 14:11 WBC RBC Hgb Hct RDW Plt Count Lymph % (Auto) [place] % (Auto) Lymph # Seg Neutrophils % PT INR D-Dimer ABG pO2 48.4 L ABG HCO3 30.5 H ABG O2 Saturation 81.9 L ABG Base Excess 4.6 H ABG Hemoglobin 10.5 L Oxyhemoglobin 80.1 L Sodium Chloride Carbon Dioxide BUN Creatinine Glucose POC Glucose 126 H 119 H Calcium Magnesium Ferritin Alkaline Phosphatase Lactate Dehydrogenase Troponin T C-Reactive Protein NT-Pro-B Natriuret Pep Total Protein Albumin 01/16/20 01/16/20 01/16/20 15:38 15:38 15:38 WBC RBC Hgb Hct RDW Plt Count Lymph % (Auto) [place] % (Auto) Lymph # Seg Neutrophils % PT INR D-Dimer 1104.64 H ABG pO2 ABG HCO3 ABG O2 Saturation ABG Base Excess ABG Hemoglobin Oxyhemoglobin Sodium Chloride Carbon Dioxide BUN Creatinine Glucose POC Glucose Calcium Magnesium Ferritin > 2000.0 H Alkaline Phosphatase Lactate Dehydrogenase 690 H Troponin T C-Reactive Protein 24.10 H NT-Pro-B Natriuret Pep Total Protein Albumin 01/16/20 01/18/20 01/18/20 18:11 06:25 06:25 WBC RBC 3.15 L Hgb 9.4 L Hct 29.4 L RDW 17.5 H Plt Count 135 L Lymph % (Auto) 3.8 L [place] % (Auto) Lymph # 0.2 L Seg Neutrophils % 88.8 H PT INR D-Dimer ABG pO2 ABG HCO3 ABG O2 Saturation ABG Base Excess ABG Hemoglobin Oxyhemoglobin Sodium Chloride 96.8 L Carbon Dioxide BUN 26 H Creatinine 4.2 H Glucose 115 H POC Glucose 130 H Calcium 8.2 L Magnesium Ferritin Alkaline Phosphatase Lactate Dehydrogenase 537 H Troponin T C-Reactive Protein 17.10 H NT-Pro-B Natriuret Pep Total Protein Albumin 01/18/20 01/18/20 01/18/20 06:25 06:25 12:15 WBC RBC Hgb Hct RDW Plt Count Lymph % (Auto) [place] % (Auto) Lymph # Seg Neutrophils % PT INR D-Dimer 938.03 H ABG pO2 66.5 L ABG HCO3 30.1 H ABG O2 Saturation 93.2 L ABG Base Excess 4.6 H ABG Hemoglobin 10.0 L Oxyhemoglobin 91.3 L Sodium Chloride Carbon Dioxide BUN Creatinine Glucose POC Glucose Calcium Magnesium Ferritin 3105.0 H Alkaline Phosphatase Lactate Dehydrogenase Troponin T C-Reactive Protein NT-Pro-B Natriuret Pep Total Protein Albumin 01/20/20 01/20/20 01/20/20 07:37 07:37 07:37 WBC RBC Hgb Hct RDW Plt Count Lymph % (Auto) [place] % (Auto) Lymph # Seg Neutrophils % PT INR D-Dimer 2072.25 H ABG pO2 ABG HCO3 ABG O2 Saturation ABG Base Excess ABG Hemoglobin Oxyhemoglobin Sodium Chloride Carbon Dioxide BUN Creatinine Glucose POC Glucose Calcium Magnesium Ferritin 1826.0 H Alkaline Phosphatase Lactate Dehydrogenase 496 H Troponin T C-Reactive Protein 19.30 H NT-Pro-B Natriuret Pep Total Protein Albumin 01/20/20 01/21/20 17:30 03:59 WBC RBC Hgb Hct RDW Plt Count Lymph % (Auto) [place] % (Auto) Lymph # Seg Neutrophils % PT INR D-Dimer ABG pO2 61.1 L ABG HCO3 29.9 H ABG O2 Saturation 91.7 L ABG Base Excess 4.9 H ABG Hemoglobin 9.0 L Oxyhemoglobin 89.5 L Sodium 136 L Chloride Carbon Dioxide BUN 36 H Creatinine 4.9 H Glucose POC Glucose Calcium Magnesium Ferritin Alkaline Phosphatase Lactate Dehydrogenase Troponin T C-Reactive Protein NT-Pro-B Natriuret Pep Total Protein Albumin Allied health notes reviewed: nursing
--- NOTE | 2020-01-21 10:27 | Progress Note ---
Assessment and Plan Assessment and plan: Suspected COVID- 19 Patient with very elevated inflammatory markers of ferritin, CRP, LDH and d- dimer. Bilateral pneumonia. Continue antibiotics per ID ARDS. Etiology secondary to above. Acute hypoxemic respiratory failure. Continue oxygen to maintain sats greater than 92% Appears stable on HFNC; wean FiO2 then flow Chest pain Stress test neg for ischemia GERD and costochondritis in differential diagnosis Volume overload s/p hemodialysis Nephrology consulted,following Acute on Chronic diastolic CHF exacerbation Secondary to volume overload End stage renal disease on dialysis Nephrology following T2DM (type 2 diabetes mellitus) Continue continue coverage Check hemoglobin A1c Hypertension Continue antihypertensives Hyponatremia Secondary to increased volume--dilutional DVT prophylaxis On heparin and GI prophylaxis 01/11 Covid 19 survey testing sent, nasal swab done 01/10 01/12 Patient has acute resp failure. may need Oxygen on dc. awaiting Covid result 01/13 Still has shortness of breath, awaiting Covid test. 01/14 Pt still dyspneic, await covid testing, Pulse ox 83% 01/16/2020. Patient remains dyspneic. Follow-up COVID testing. 01/17/2020. Patient still requiring large amounts of oxygen. Patient currently with 15 L satting at 95%. Patient with increased inflammatory markers. Follow- up chest x-ray today. 01/18/20--Patient still requiring large amounts of oxygen. Patient currently with 15 L %. Patient with increased inflammatory markers. 01/19/2020 very elevated inflammatory markers- ferritin> 2000, CRP >24, LDH> 600, d-dimer >1000 putting her at high risk for ARDS. Continue hydroxychloroquine 400 mg PO BID for 1 day then 200 mg PO BID for 4 days (total 5 days) with zinc 220 mg PO qday. Continue ceftriaxone. ContinueCOVID isolationprecautions pe r [facility] protocol. Continue serial Ferritin, LDH, D-Dimer, CRP every 48h 01/20/2020. Inflammatory markers remain elevated with ferritin 1826, LDH 496, CRP 19.3, and d-dimer 2072. Patient requiring high flow nasal cannula 40L, FiO2 80%. Pulmonary following. Continue antibiotics and Plaquenil. Continue COVID isolationprecautions per [facility] protocol. Patient has a high risk mortality and remains guarded. 01/21/2020. Continue antibiotics and Plaquenil. Continue COVID isolationprecautions per [facility] protocol. Maintain sats of 88% and greater. Still on HFNC, O2 weaned to 95% overnight. Sats documented at 98%. Pulmonary following and reports If patient progresses could give bipap a one hour trial to see if there is improvement, repeat ABG, if not would suggest elective intubation The high probability of a clinically significant, sudden or life threatening deterioration of the [immunologic and respiratory] system(s) required my full and direct attention, intervention and personal management. The aggregate critical care time was [32] minutes. This time is in addition to time spent pe rforming reported procedures but includes the following: [x] Data Review and interpretation [x] Patient assessment and monitoring of vital signs [x] Documentation [x] Medication orders and management History Interval history: Patient lethargic and tachypneic. Hospitalist Physical - Constitutional Vitals: Temp Pulse Resp BP Pulse Ox 97.5 F L 71 25 H 135/65 89 01/21/20 04:59 01/21/20 04:59 01/21/20 04:59 01/21/20 04:59 01/21/20 06:34 General appearance: Present: no acute distress - EENT Eyes: Present: PERRL, EOM intact ENT: hearing intact, clear oral mucosa, dentition normal - Neck Neck: Present: supple, normal ROM - Respiratory Respiratory effort: normal Respiratory: bilateral: CTA - Cardiovascular Rhythm: regular Heart Sounds: Present: S1 & S2. Absent: gallop, rub - Extremities Extremities: no ischemia, No edema, Full ROM - Abdominal General gastrointestinal: soft, non-tender, non-distended, normal bowel sounds - Integumentary Integumentary: Present: clear, warm, dry - Neurologic Neurologic: CNII-XII intact, moves all extremities SEAN score - Sean Score Age > 65: (1) Yes Aspirin use within the Past 7 Days: (1) Yes 3 or more CAD Risk Factors: (1) Yes 2 or more Angina events in past 24 hrs: (1) Yes Known CAD with more than 50% Stenosis: (0) No Elevated Cardiac Markers: (0) No ST Deviation Greater than 0.5mm: (0) No SEAN Score: 4 Results - Labs CBC & Chem 7: 01/18/20 06:25 01/21/20 03:59 Labs: Laboratory Last Values WBC 5.6 K/mm3 (4.5-11.0) 01/18/20 06:25 RBC 3.15 M/mm3 (3.65-5.03) L 01/18/20 06:25 Hgb 9.4 gm/dl (10.1-14.3) L 01/18/20 06:25 Hct 29.4 % (30.3-42.9) L 01/18/20 06:25 MCV 94 fl (79-97) 01/18/20 06:25 MCH 30 pg (28-32) 01/18/20 06:25 MCHC 32 % (30-34) 01/18/20 06:25 RDW 17.5 % (13.2-15.2) H 01/18/20 06:25 Plt Count 135 K/mm3 (140-440) L 01/18/20 06:25 Lymph % (Auto) 3.8 % (13.4-35.0) L 01/18/20 06:25 [place] % (Auto) 6.5 % (0.0-7.3) 01/18/20 06:25 Eos % (Auto) 0.8 % (0.0-4.3) 01/18/20 06:25 Baso % (Auto) 0.1 % (0.0-1.8) 01/18/20 06:25 Lymph # 0.2 K/mm3 (1.2-5.4) L 01/18/20 06:25 [place] # 0.4 K/mm3 (0.0-0.8) 01/18/20 06:25 Eos # 0.0 K/mm3 (0.0-0.4) 01/18/20 06:25 Baso # 0.0 K/mm3 (0.0-0.1) 01/18/20 06:25 Seg Neutrophils % 88.8 % (40.0-70.0) H 01/18/20 06:25 Seg Neutrophils # 5.0 K/mm3 (1.8-7.7) 01/18/20 06:25 PT 15.6 Sec. (12.2-14.9) H 01/09/20 12:55 INR 1.22 (0.87-1.13) H 01/09/20 12:55 APTT 31.5 Sec. (24.2-36.6) 01/09/20 12:55 D-Dimer 2072.25 ng/mlDDU (0-234) H 01/20/20 07:37 ABG pH 7.423 pH Units (7.350-7.450) 01/20/20 17:30 ABG pCO2 46.9 mm Hg 01/20/20 17:30 ABG pO2 61.1 mm Hg (80.0-90.0) L 01/20/20 17:30 ABG HCO3 29.9 mmol/L (20.0-26.0) H 01/20/20 17:30 ABG O2 Saturation 91.7 % (95.0-99.0) L 01/20/20 17:30 ABG O2 Content 11.4 (0.0-44) 01/20/20 17:30 ABG Base Excess 4.9 mmol/L (-2.0-3.0) H 01/20/20 17:30 ABG Hemoglobin 9.0 gm/dl (12.0-16.0) L 01/20/20 17:30 ABG Carboxyhemoglobin 1.8 % (0.0-5.0) 01/20/20 17:30 ABG Methemoglobin 0.5 % (0.0-1.5) 01/20/20 17:30 Oxyhemoglobin 89.5 % (95.0-99.0) L 01/20/20 17:30 FiO2 100 % 01/20/20 17:30 Sodium 136 mmol/L (137-145) L 01/21/20 03:59 Potassium 4.3 mmol/L (3.6-5.0) 01/21/20 03:59 Chloride 98.5 mmol/L (98-107) 01/21/20 03:59 Carbon Dioxide 24 mmol/L (22-30) 01/21/20 03:59 Anion Gap 18 mmol/L 01/21/20 03:59 BUN 36 mg/dL (7-17) H 01/21/20 03:59 Creatinine 4.9 mg/dL (0.7-1.2) H 01/21/20 03:59 Estimated GFR 11 ml/min 01/21/20 03:59 BUN/Creatinine Ratio 7 % 01/21/20 03:59 Glucose 91 mg/dL (65-100) 01/21/20 03:59 POC Glucose 130 (70-105) H 01/16/20 18:11 Hemoglobin A1c 5.0 % (4-6) 01/10/20 06:54 Calcium 8.5 mg/dL (8.4-10.2) 01/21/20 03:59 Phosphorus 3.30 mg/dL (2.5-4.5) 01/12/20 16:01 Magnesium 2.00 mg/dL (1.7-2.3) 01/13/20 06:11 Ferritin 1826.0 ng/mL (13.0-400.0) H 01/20/20 07:37 Total Bilirubin 0.30 mg/dL (0.1-1.2) 01/10/20 06:54 AST 30 units/L (5-40) 01/10/20 06:54 ALT 24 units/L (7-56) 01/10/20 06:54 Alkaline Phosphatase 148 units/L (35-129) H 01/10/20 06:54 Lactate Dehydrogenase 496 units/L (91-180) H 01/20/20 07:37 Troponin T 0.315 ng/mL (0.00-0.029) H* 01/10/20 06:54 C-Reactive Protein 19.30 mg/dL (0.00-1.30) H 01/20/20 07:37 NT-Pro-B Natriuret Pep 60636 pg/mL (0-900) H 01/09/20 12:55 Total Protein 5.4 g/dL (6.3-8.2) L 01/10/20 06:54 Albumin 2.7 g/dL (3.9-5) L 01/10/20 06:54 Albumin/Globulin Ratio 1.0 % 01/10/20 06:54 Triglycerides 82 mg/dL (2-149) 01/09/20 12:55 Cholesterol 123 mg/dL (50-199) 01/09/20 12:55 LDL Cholesterol Direct 66 mg/dL (50-130) 01/09/20 12:55 HDL Cholesterol 47 mg/dL (40-59) 01/09/20 12:55 Cholesterol/HDL Ratio 2.61 % 01/09/20 12:55 Miscellaneous Test See scanned result 01/11/20 Unknown Miscellaneous Test See scanned result 01/11/20 Unknown Pleitez/IV: Voiding Method Diaper IV Catheter Type [Right Peripheral IV External Jugular] IV Catheter Type [Left INT / Saline Lock External Jugular] Active Medications - Current Medications Current Medications: Generic Name Dose Route Start Last Admin Trade Name Freq PRN Reason Stop Dose Admin Acetaminophen 650 mg 01/09/20 16:33 01/12/20 18:23 Tylenol PO 650 mg Q4H PRN Administration Pain MILD(1-3)/Fever >100.5/MEANS Acetaminophen/Hydrocodone Bitart 1 each 01/09/20 16:15 01/20/20 13:15 [place] 5/325 PO 1 each Q6HR PRN Administration Pain, Moderate (4-6) Amlodipine Besylate 10 mg 01/09/20 17:00 01/20/20 10:21 Amlodipine PO 10 mg DAILY PHILLY Administration Atorvastatin Calcium 40 mg 01/09/20 22:00 01/20/20 21:38 Lipitor PO 40 mg QHS PHILLY Administration Cyclobenzaprine HCl 5 mg 01/09/20 16:27 01/10/20 23:17 Flexeril PO 5 mg QHS PRN Administration Muscle Spasm Diphenhydramine HCl 25 mg 01/09/20 16:15 01/12/20 00:50 Benadryl PO 25 mg Q8HR PRN Administration Itching Duloxetine HCl 30 mg 01/09/20 17:00 01/20/20 10:20 Cymbalta PO 30 mg QDAY PHILLY Administration Famotidine 20 mg 01/09/20 22:00 01/20/20 10:20 Pepcid PO 20 mg DAILY PHILLY Administration Heparin Sodium (Porcine) 5,000 unit 01/10/20 10:00 01/20/20 21:38 Heparin SUB-Q 5,000 unit Q12HR PHILLY Administration Hydroxychloroquine Sulfate 200 mg 01/18/20 10:00 01/20/20 21:38 Plaquenil PO 01/21/20 22:01 200 mg BID PHILLY Administration Sodium Chloride 100 mls @ 999 mls/hr 01/09/20 19:13 Nacl 0.9% IV SILVERIO PRN Hypotension Ceftriaxone Sodium 1 gm in 50 mls @ 100 mls/hr 01/17/20 11:00 01/20/20 10:18 Rocephin/Ns 1 Gm/50 Ml IV 100 mls/hr Q24HR PHILLY Administration Magnesium Oxide 400 mg 01/09/20 17:00 01/20/20 10:19 Mag-Ox PO 400 mg QDAY PHILLY Administration Metoprolol Tartrate 50 mg 01/20/20 22:00 01/20/20 21:38 Metoprolol PO 50 mg BID PHILLY Administration Ondansetron HCl 4 mg 01/09/20 16:33 01/20/20 10:19 Zofran IV 4 mg Q8H PRN Administration Nausea And Vomiting Oxycodone/Acetaminophen 1 tab 01/09/20 16:43 01/20/20 03:19 Percocet 5/325 PO 1 tab Q6H PRN Administration Pain, Moderate (4-6) Sodium Chloride 10 ml 01/09/20 22:00 01/20/20 21:39 Sodium Chloride Flush Syringe 10 Ml IV 10 ml BID PHILLY Administration Sodium Chloride 10 ml 01/09/20 16:33 Sodium Chloride Flush Syringe 10 Ml IV PRN PRN LINE FLUSH Tramadol HCl 50 mg 01/16/20 13:07 01/20/20 10:19 Ultram PO 50 mg Q12HR PRN Administration Pain, Moderate (4-6) Valsartan 80 mg 01/10/20 10:00 01/20/20 10:21 Diovan PO 80 mg DAILY PHILLY Administration Zinc Sulfate 220 mg 01/17/20 12:00 01/20/20 12:00 Zinc Sulfate PO 01/21/20 12:01 220 mg DAILY@1200 PHILLY Administration Nutrition/Malnutrition Assess - Dietary Evaluation Nutrition/Malnutrition Findings: Nutrition Notes Start: 01/17/20 13:49 Freq: Status: Active Protocol: Document 01/17/20 13:49 LM (Rec: 01/17/20 14:00 LM [id number]) Nutrition Notes Need for Assessment generated from: LOS Initial or Follow up Assessment Current Diagnosis CKD (stage V CKD),COPD, Diabetes,Hypertension,Heart Failure,Hyperlipidemia Current Diet renal Labs/Tests reviewed Pertinent Medications Mag-Ox Height 5 ft 6 in Weight 78.5 kg [place] Body Weight (kg) 59.09 BMI 27.9 Weight change and time frame 8% wt loss in 2 weeks Weight Status Overweight Subjective/Other Information Screen for LOS. Unable to speak to pt. Pt receiving HD at bedside. Noticed 0% intakes in chart. Pt with edema and weak color worker strength. Reviewed chart from 01/03/19 and 12/20/18. Pt weighed 85.6kg and 77.2 kg . Wt fluctuation could be due to fluid. Burn Absent Trauma Absent Minimum of two criteria Yes Interpretation of Weight Loss (non- 5% in 1 month severe) Fluid Accumulation Mild (non-severe) Reduced Communications Consultant Strength Measurably Reduced (severe) #1 Nutrition Diagnosis Malnutrition Etiology ESRD, chronic illness As Evidenced by Signs and Symptoms pt with 8% wt loss in 2 weeks, weak color worker strength, fluid accumulation Is patient on ventilator? No Is Patient Ambulatory and/or Out of Bed No REE-([facility]-confined to bed) [phone] Calculation Used for Recommendations [facility] Additional Notes Protein: 94g (>1.2g/kg) Fluid: per MD Nutrition Intervention Change Diet Order: Continue renal Add Supplement/Snack (indicate name/kcal Nepro BID /protein ) Provides kCal: 850 Provides Protein (gm) 38 Goal #1 Meet at least 80% of energy and protein needs Anticipated Discharge Needs: Renal diet Follow-Up By: 01/21/20 Additional Comments F/U for full assessment, intakes
--- NOTE | 2020-01-21 12:59 | Event Note ---
Date: 01/21/20 Patient is now on HFNC and NRB mask. Per nursing was just placed on this not too long ago. Spoke with patient again at bedside. She does want to be intubated. She is currently in mild distress. Will reach out to CNO to figure out staff for this situation. Spoke with Kaushal Ramsey at [phone]. He states this is the number to reach him on. He also states that patient has one son whom I have asked him to reach out too to let him know the change in current status. I also explained to him how sick the patient is the high li kelyhood of even with the ventilator.
[2020-01-21] MEDS: FAMOTIDINE 20 MG TAB PO SCH (13:05)
[2020-01-21] MEDS: DULoxetine 30 MG CAP PO SCH (13:05)
[2020-01-21] MEDS: ZINC SULFATE 220 MG CAP PO SCH (13:05)
[2020-01-21] MEDS: MAGNESIUM OXIDE 400 MG TAB PO SCH (13:05)
[2020-01-21] MEDS: amLODIPine 10 MG TAB PO SCH (13:05)
[2020-01-21] MEDS: HEPARIN 5,000 UNIT/1 ML VIAL SUB-Q SCH ×2 (13:06→23:12)
[2020-01-21] MEDS: cefTRIAXone/NS 1 GM/50 ML 1 GM/50 ML BAG IV SCH (13:08)
--- NOTE | 2020-01-21 14:03 | Progress Note ---
Assessment and Plan Cultures: Blood culture 01/14/2020 no growth to date A/P: #Fever: no fever. likely due to severe COVID pneumonia. #Severe COVID pneumonia: very elevated inflammatory markers- ferritin> 2000, CRP >24, LDH> 600, d-dimer >1000 putting her at high risk for ARDS. #Acute resp failure: on Nonrebreathing and HFO2 worsening, needing intubation, Dr Aiken on board #ESRD on HD Recs: Discuss code status with family, high risk mortality Will try one dose of po ivermectin (off labe use), inhibits COVID replication in vitro Eval for venous thromboembolism and consider therapeutic dose heparin as needed Continuos pulse oximetry Pulmonary on board, discussed with Dr Aiken Continue hydroxychloroquine 400 mg PO BID for 1 day then 200 mg PO BID for 4 da ys (total 5 days) with zinc 220 mg PO qday Stop ceftriaxone day 5 of 5 Add cefepime for 5 days Obtain serial Ferritin, LDH, D-Dimer, CRP every 48h Daily EKG - QT monitoring - stop plaqenil if QT interval >500 High risk mortality Angela Bales MD Infectious Diseases [employer]rent[employer] [facility] ([facility]) M [phone] Subjective Date of service: 01/21/20 Principal diagnosis: Pneumonia Interval history: Remains on Non rebreather mask Objective - Exam Narrative Exam: Gen: alert in NAD in NON rebreather mask and HFO2 Head, Ears, Nose: Normocephalic, atraumatic. Oral: Limited Cardiovascular: Limited evaluation due to PPE shortage Respiratory: steph crackles GI: Limited evaluation due to PPE shortage Musculoskeletal: Limited evaluation due to PPE shortage Neurological: alert non focal - Constitutional Vitals: Vital Signs Temp Pulse Resp BP Pulse Ox 98.2 F 78 20 164/77 97 01/21/20 11:45 01/21/20 11:45 01/21/20 11:45 01/21/20 11:45 01/21/20 12:44 Temperature -Last 24 Hours Temperature 98.2 F Temperature 97.5 F Temperature 97.8 F Temperature 98.6 F - Labs CBC & Chem 7: 01/18/20 06:25 01/21/20 03:59 Labs: Abnormal lab results 01/20/20 01/21/20 Range/Units 17:30 03:59 ABG pO2 61.1 L (80.0-90.0) mm Hg ABG HCO3 29.9 H (20.0-26.0) mmol/L ABG O2 Saturation 91.7 L (95.0-99.0) % ABG Base Excess 4.9 H (-2.0-3.0) mmol/L ABG Hemoglobin 9.0 L (12.0-16.0) gm/dl Oxyhemoglobin 89.5 L (95.0-99.0) % Sodium 136 L (137-145) mmol/L BUN 36 H (7-17) mg/dL Creatinine 4.9 H (0.7-1.2) mg/dL
--- NOTE | 2020-01-21 14:10 | Progress Note ---
Assessment and Plan - Patient Problems (1) ESRD needing dialysis Current Visit: No Status: Acute Plan to address problem: Patient on MWF schedule. Plan for HD today, and I anticipate the need for extra isolated UF session this week in order to optimize fluid status. (2) Volume overload Current Visit: Yes Status: Acute Qualifiers: Plan to address problem: Goal is to optimize volume status with adequate fluid removal with HD. Evaluate daily for need of extra isolated UF sessions. HD today. (3) Pneumonia due to COVID-19 virus Current Visit: Yes Status: Acute Plan to address problem: Management per ID recommendations. (4) Hyponatremia Current Visit: No Status: Acute Plan to address problem: Possibly in the setting of fluid overload. Optimze volume status with adequate UF during HD. (5) Hypertensive chronic kidney disease with stage 5 chronic kidney disease or end stage renal disease Current Visit: No Status: Chronic Plan to address problem: Monitor on current regimen. (6) Anemia in CKD (chronic kidney disease) Current Visit: Yes Status: Acute Qualifiers: Chronic kidney disease stage: on chronic dialysis Qualified Code(s): N18.6 - End stage renal disease; D63.1 - Anemia in chronic kidney disease; Z99.2 - Dependence on renal dialysis Plan to address problem: CLARITA therapy with HD. (7) Secondary hyperparathyroidism (of renal origin) Current Visit: Yes Status: Chronic Plan to address problem: Continue on current outpatient phos binder regimen. Subjective Date of service: 01/21/20 Principal diagnosis: Pneumonia Interval history: Worsening respiratory status. Pulmonology note reviewed, and agree that she is at risk for intubation. Have discussed with nursing staff and will have her dialyzed LUISA now. Dialysis staff was contacted and made aware by RN. Objective - Vital Signs Vital signs: Vital Signs - 12hr 01/21/20 01/21/20 01/21/20 04:59 06:34 08:00 Temperature 97.5 F L Pulse Rate 71 Respiratory 25 H Rate Blood Pressure 135/65 O2 Sat by Pulse 87 89 97 Oximetry 01/21/20 01/21/20 11:45 12:44 Temperature 98.2 F Pulse Rate 78 Respiratory 20 Rate Blood Pressure 164/77 O2 Sat by Pulse 94 97 Oximetry - General Appearance General appearance: chronically ill, frail EENT: ATNC Neck: no JVD Respiratory: Present: Ronchi, Decreased Breath Sounds Cardiology: regular, S1S2 Gastrointestinal: normal, normoactive bowel sounds Integumentary: no rash Neurologic: no focal deficit Musculoskeletal: deferred - Lab 01/18/20 06:25 01/21/20 03:59 Most recent lab results ABG pH 7.423 pH Units (7.350-7.450) 01/20/20 17:30 ABG pCO2 46.9 mm Hg 01/20/20 17:30 ABG pO2 61.1 mm Hg (80.0-90.0) L 01/20/20 17:30 ABG HCO3 29.9 mmol/L (20.0-26.0) H 01/20/20 17:30 ABG O2 Saturation 91.7 % (95.0-99.0) L 01/20/20 17:30 Calcium 8.5 mg/dL (8.4-10.2) 01/21/20 03:59 Phosphorus 3.30 mg/dL (2.5-4.5) 01/12/20 16:01 Magnesium 2.00 mg/dL (1.7-2.3) 01/13/20 06:11 - Allied health notes Allied health notes reviewed: nursing Medications & Allergies - Medications Allergies/Adverse Reactions: Allergies cheese Allergy (Mild, Verified 12/20/19 10:19) Itching iodine Allergy (Mild, Verified 12/20/19 10:16) Anaphylaxis clonidine Allergy (Verified 12/19/19 04:13) Anaphylaxis shellfish derived Adverse Reaction (Verified 12/19/19 04:13) Angioedema Home Medications: Home Medications Medication Instructions Recorded Confirmed Last Taken Type Atorvastatin [Lipitor] 40 mg PO DAILY 11/06/19 01/13/20 01/02/20 10:00 History Acetaminophen [Acetaminophen 8 650 mg PO Q8H PRN #30 tablet.er 11/21/19 01/13/20 01/03/20 22:00 Rx Hour] Cyclobenzaprine HCl [Flexeril 5 MG 5 mg PO QHS PRN #20 tab 11/21/19 01/13/20 01/01/20 22:00 Rx TAB] HYDROcodone/APAP 5-325 [[place] 1 each PO Q6HR PRN #18 tablet 12/13/19 01/13/20 01/01/20 22:00 Rx 5-325 mg TAB] amLODIPine 10 mg PO DAILY 90 Days #90 tab 12/18/19 01/13/20 01/01/20 10:00 Rx Ibuprofen 800 mg PO TID 12/19/19 01/13/20 01/02/20 22:00 History Magnesium Oxide [Mag-Ox] 400 mg PO QDAY 12/19/19 01/13/20 01/03/20 10:00 History diphenhydrAMINE [Benadryl CAP] 25 mg PO Q8HR PRN 12/19/19 01/13/20 01/03/20 21:00 History labetaloL [Labetalol 100mg TAB] 100 mg PO Q8H #90 tablet 12/21/19 01/13/20 01/02/20 10:00 Rx traMADoL [Ultram 50 MG tab] 50 mg PO Q6HR PRN #20 tablet 12/29/19 01/13/20 12/31/19 10:00 Rx DULoxetine [Cymbalta] 30 mg PO QDAY #30 capsule 01/04/20 01/13/20 Unknown Rx Valsartan [Diovan] 80 mg PO DAILY #30 tablet 01/04/20 01/13/20 Unknown Rx Active Medications: Generic Name Dose Route Start Last Admin Trade Name Freq PRN Reason Stop Dose Admin Acetaminophen 650 mg 01/09/20 16:33 01/12/20 18:23 Tylenol PO 650 mg Q4H PRN Administration Pain MILD(1-3)/Fever >100.5/MEANS Acetaminophen/Hydrocodone Bitart 1 each 01/09/20 16:15 01/20/20 13:15 [place] 5/325 PO 1 each Q6HR PRN Administration Pain, Moderate (4-6) Amlodipine Besylate 10 mg 01/09/20 17:00 01/21/20 13:05 Amlodipine PO 10 mg DAILY PHILLY Administration Atorvastatin Calcium 40 mg 01/09/20 22:00 01/20/20 21:38 Lipitor PO 40 mg QHS PHILLY Administration Cyclobenzaprine HCl 5 mg 01/09/20 16:27 01/10/20 23:17 Flexeril PO 5 mg QHS PRN Administration Muscle Spasm Diphenhydramine HCl 25 mg 01/09/20 16:15 01/12/20 00:50 Benadryl PO 25 mg Q8HR PRN Administration Itching Duloxetine HCl 30 mg 01/09/20 17:00 01/21/20 13:05 Cymbalta PO 30 mg QDAY PHILLY Administration Famotidine 20 mg 01/09/20 22:00 01/21/20 13:05 Pepcid PO 20 mg DAILY PHILLY Administration Heparin Sodium (Porcine) 5,000 unit 01/10/20 10:00 01/21/20 13:06 Heparin SUB-Q 5,000 unit Q12HR PHILLY Administration Hydroxychloroquine Sulfate 200 mg 01/18/20 10:00 01/20/20 21:38 Plaquenil PO 01/21/20 22:01 200 mg BID PHILLY Administration Sodium Chloride 100 mls @ 999 mls/hr 01/09/20 19:13 Nacl 0.9% IV SILVERIO PRN Hypotension Ceftriaxone Sodium 1 gm in 50 mls @ 100 mls/hr 01/17/20 11:00 01/21/20 13:08 Rocephin/Ns 1 Gm/50 Ml IV 100 mls/hr Q24HR PHILLY Administration Magnesium Oxide 400 mg 01/09/20 17:00 01/21/20 13:05 Mag-Ox PO 400 mg QDAY PHILLY Administration Metoprolol Tartrate 50 mg 01/20/20 22:00 01/20/20 21:38 Metoprolol PO 50 mg BID PHILLY Administration Ondansetron HCl 4 mg 01/09/20 16:33 01/20/20 10:19 Zofran IV 4 mg Q8H PRN Administration Nausea And Vomiting Oxycodone/Acetaminophen 1 tab 01/09/20 16:43 01/20/20 03:19 Percocet 5/325 PO 1 tab Q6H PRN Administration Pain, Moderate (4-6) Sodium Chloride 10 ml 01/09/20 22:00 01/21/20 13:07 Sodium Chloride Flush Syringe 10 Ml IV 10 ml BID PHILLY Administration Sodium Chloride 10 ml 01/09/20 16:33 Sodium Chloride Flush Syringe 10 Ml IV PRN PRN LINE FLUSH Tramadol HCl 50 mg 01/16/20 13:07 01/20/20 10:19 Ultram PO 50 mg Q12HR PRN Administration Pain, Moderate (4-6) Valsartan 80 mg 01/10/20 10:00 01/20/20 10:21 Diovan PO 80 mg DAILY PHILLY Administration
[2020-01-21] MEDS: VALSARTAN 40 MG TAB PO SCH (14:20)
[2020-01-21] MEDS: METOPROLOL TARTRATE 50 MG TAB PO SCH ×2 (14:20→23:10)
[2020-01-21] MEDS: HYDROXYCHLOROQUINE 200 MG TAB PO SCH ×2 (14:20→23:15)
[2020-01-21] MEDS ORDERED: EPINEPHrine 1:10,000 1 MG/10 ML SYRINGE ONE (15:00)
[2020-01-21] MEDS ORDERED: IVERMECTIN (NF) 3 MG TAB PO ONE (15:00)
[2020-01-21] MEDS ORDERED: SODIUM BICARB 8.4% 50 MEQ/50 ML SYRINGE IV ONE (15:00)
--- NOTE | 2020-01-21 16:09 | Event Note ---
EDMD CODE intubation note I was called to the floor under a CODE BLUE. Upon my arrival patient receiving chest compressions and being bagged via BVM by staff. PPE was donned by myself and patient was intubated using glidescope. After intubation the patient was left in the care of the hospital staff Dr. Pugh and Dr. Sanchez at bedside to continue ACLS protocols Intubation note Consent was unobtainable Preoxygenation with 100% oxygen A size 7.5 mm ET tube was inserted orally on first attempt however it passed only after some difficulty There was symmetric chest rise and bilateral breath sounds post intubation A CO2 indicator was used for confirmation and resulted in positive CO2 return ET tube was taped at 21 cm at the lips The patient tolerated the procedure well There were no complications
--- NOTE | 2020-01-21 16:35 | XRay Report ---
CHEST 1 VIEW INDICATION: MAIN: ETT TUBE PLACEMENT. COMPARISON: 01/17/2020 FINDINGS: Support devices: The endotracheal tube terminates 5.8 cm superior to the liya. Left Omlyux-d-Sfxc r emains in good position. Heart: Stable mild cardiomegaly. Lungs/Pleura: Bilateral interstitial infiltrates have increased by 50%, particularly in the right loc g. This could represent pulmonary edema, pneumonia or viral infection. No significant pleural effusio n or pneumothorax. Additional findings: None. IMPRESSION: The endotracheal tube terminates 5.8 cm superior to the liya. It appears in adequate position. Stable cardiomegaly. Increased bilateral pulmonary edema or infiltrates. Signer Name: Griffin Brito Jr, MD Signed: 01/21/2020 4:30 PM Workstation Name: [id number][id number]
--- NOTE | 2020-01-21 16:53 | Event Note ---
Date: 01/21/20 CODE LESA called. Patient seen and evaluated. Patient found to be in cardiopulmonary arrest. Patient treated in accordance with ACLS protocol. Patient intubated and placed on ventilatory support after subsequent return of perfusing rhythm. Patient found to have poor prognosis. Patient transferred to ICU. Advanced care planning conducted. This point discussed patient CODE STATUS with her whom I met in the emergency department waiting room. Patient acknowledges understanding and agreement with care plan. Disease education conducted. 65 minutes critical care time dedicated to patient care. Advanced care planning +30 minutes.
[2020-01-21 17:51] LABS: ABG Base Excess 0.9 mmol/L (-2.0-3.0); ABG HCO3 26.2 mmol/L (20.0-26.0); ABG Methemoglobin 0.5 % (0.0-1.5); ABG Oxygen Saturation 93.4 % (95.0-99.0); ABG PCO2 45.3 mm Hg; ABG PH 7.38 pH Units (7.350-7.450); ABG PO2 67.4 mm Hg (80.0-90.0)
--- NOTE | 2020-01-21 20:55 | XRay Report ---
ABDOMEN 1 VIEW(S) 01/21/2020 7:34 PM INDICATION / CLINICAL INFORMATION: dobhoff placement. COMPARISON: Chest radiograph from earlier the same day FINDINGS: The tip of a weighted feeding tube projects over the body of the stomach. Signer Name: Vince Dyson MD Signed: 01/21/2020 8:51 PM Workstation Name: [id number]
[2020-01-21 21:15] LABS: ABG Base Excess 2.8 mmol/L (-2.0-3.0); ABG HCO3 26.6 mmol/L (20.0-26.0); ABG Methemoglobin 0.6 % (0.0-1.5); ABG Oxygen Saturation 85.7 % (95.0-99.0); ABG PCO2 37.8 mm Hg; ABG PH 7.465 pH Units (7.350-7.450); ABG PO2 48.9 mm Hg (80.0-90.0)
[2020-01-22 00:50] LABS: Hepatitis B Surface Antigen Non-Reactive (Negative); Hepatitis C Virus Antibody Non-Reactive (NonReactive)
[2020-01-22 05:40] LABS: ABG Base Excess 2.5 mmol/L (-2.0-3.0); ABG HCO3 27.6 mmol/L (20.0-26.0); ABG Methemoglobin 0.5 % (0.0-1.5); ABG Oxygen Saturation 96.6 % (95.0-99.0); ABG PCO2 44.8 mm Hg; ABG PH 7.407 pH Units (7.350-7.450); ABG PO2 77.7 mm Hg (80.0-90.0)
--- NOTE | 2020-01-22 09:26 | Progress Note ---
Assessment and Plan 64 y/o female with COVID positive, viral pneumonia with some pulmonary vascular congestion superimposed. 1. Intubated, hypoxemic. Will heavily sedate patient and increase PEEP. Will need picc line as she may need pressors to maintain adequate blood pressures 2. May get HD today, no new renal notes yet. Agree with need for HD, and will attempt to get BP where it needs to be for this to happen 3. Finished plaquenil and zinc. IVERMECTIN on yesterday. Will follow up with ID to see when the next dose of IVERMECTIN will be 4. Overall prognosis is guarded to poor, especially with prior history of ESRD on HD. Continue supportive care CCT 31 minutes. Subjective Date of service: 01/22/20 Principal diagnosis: Pneumonia Interval history: Patient had cardiac arrest before elective intubation could happen. ROSC achieved and transitioned to the unit intubated. Not sedated but breathing over the vent. Oxygenation is worse today as well as CXR. Unsure if HD was done yesterday as patient was hypotensive on arrival from floor. Levo ordered but never started. Hypertensive this am. No visitors secondary to COVID 19 outbreak. Objective Vital Signs - 12hr 01/21/20 01/21/20 01/21/20 21:40 23:10 23:17 Temperature 98.9 F Pulse Rate 137 H Pulse Rate [ Right Radial] Respiratory Rate Respiratory 17 Rate [BL edema] Blood Pressure 137/67 O2 Sat by Pulse Oximetry 01/21/20 01/22/20 01/22/20 23:21 00:00 04:00 Temperature 98.1 F Pulse Rate 80 Pulse Rate [ 82 Right Radial] Respiratory 22 Rate Respiratory Rate [BL edema] Blood Pressure 136/65 O2 Sat by Pulse 95 96 Oximetry 01/22/20 04:56 Temperature Pulse Rate 79 Pulse Rate [ Right Radial] Respiratory Rate Respiratory Rate [BL edema] Blood Pressure 151/71 O2 Sat by Pulse 99 Oximetry Constitutional: other (orally intubated, not sedated currently on vent) Eyes: non-icteric ENT: oropharynx moist Neck: supple Effort: normal Ascultation: Bilateral: rales Cardiovascular: regular rate and rhythm (no mrg) Gastrointestinal: normoactive bowel sounds, soft, non-tender, non-distended Integumentary: normal Extremities: no cyanosis, no edema, pink and warm Neurologic: normal mental status, non-focal exam, pupils equal and round, CN II- XII normal Psychiatric: mood appropriate, affect normal CBC and BMP: 01/18/20 06:25 01/22/20 07:47 ABG, PT/INR, D-dimer: ABG ABG pH 7.407 pH Units (7.350-7.450) 01/22/20 Unknown ABG pCO2 44.8 mm Hg 01/22/20 Unknown ABG pO2 77.7 mm Hg (80.0-90.0) L 01/22/20 Unknown ABG O2 Saturation 96.6 % (95.0-99.0) 01/22/20 Unknown PT/INR, D-dimer PT 15.6 Sec. (12.2-14.9) H 01/09/20 12:55 INR 1.22 (0.87-1.13) H 01/09/20 12:55 D-Dimer > 38624 ng/mlDDU (0-234) H 01/22/20 03:41 Abnormal lab findings: Abnormal Labs 01/09/20 01/09/20 01/09/20 12:55 12:55 12:55 WBC 4.4 L RBC 3.44 L Hgb Hct RDW 17.0 H Plt Count Lymph % (Auto) 6.8 L [place] % (Auto) 13.6 H Lymph # 0.3 L Seg Neutrophils % 79.0 H PT 15.6 H INR 1.22 H D-Dimer ABG pH ABG pO2 ABG HCO3 ABG O2 Saturation ABG Base Excess ABG Hemoglobin Oxyhemoglobin Sodium 130 L Chloride 88.9 L Carbon Dioxide 20 L BUN 41 H Creatinine 7.6 H Glucose 115 H POC Glucose Calcium Magnesium Ferritin Alkaline Phosphatase 153 H Lactate Dehydrogenase Troponin T 0.382 H* C-Reactive Protein NT-Pro-B Natriuret Pep 49994 H Total Protein Albumin 3.2 L 01/09/20 01/10/20 01/10/20 20:14 00:16 06:54 WBC 3.3 L RBC 3.00 L Hgb 9.2 L Hct 27.8 L RDW 17.2 H Plt Count Lymph % (Auto) 8.9 L [place] % (Auto) 11.5 H Lymph # 0.3 L Seg Neutrophils % 79.1 H PT INR D-Dimer ABG pH ABG pO2 ABG HCO3 ABG O2 Saturation ABG Base Excess ABG Hemoglobin Oxyhemoglobin Sodium Chloride Carbon Dioxide BUN Creatinine Glucose POC Glucose Calcium Magnesium Ferritin Alkaline Phosphatase Lactate Dehydrogenase Troponin T 0.349 H* 0.328 H* C-Reactive Protein NT-Pro-B Natriuret Pep Total Protein Albumin 01/10/20 01/10/20 01/11/20 06:54 06:54 16:45 WBC RBC Hgb Hct RDW Plt Count Lymph % (Auto) [place] % (Auto) Lymph # Seg Neutrophils % PT INR D-Dimer ABG pH ABG pO2 ABG HCO3 ABG O2 Saturation ABG Base Excess ABG Hemoglobin Oxyhemoglobin Sodium 133 L Chloride 90.6 L Carbon Dioxide BUN 50 H Creatinine 8.4 H Glucose 101 H POC Glucose 106 H Calcium 8.1 L Magnesium Ferritin Alkaline Phosphatase 148 H Lactate Dehydrogenase Troponin T 0.315 H* C-Reactive Protein NT-Pro-B Natriuret Pep Total Protein 5.4 L Albumin 2.7 L 01/12/20 01/13/20 01/13/20 16:01 06:11 06:11 WBC 3.1 L RBC 3.25 L Hgb 9.8 L Hct RDW 17.2 H Plt Count 136 L Lymph % (Auto) [place] % (Auto) Lymph # Seg Neutrophils % PT INR D-Dimer ABG pH ABG pO2 ABG HCO3 ABG O2 Saturation ABG Base Excess ABG Hemoglobin Oxyhemoglobin Sodium 135 L Chloride 93.4 L Carbon Dioxide BUN 19 H Creatinine 4.5 H Glucose 120 H POC Glucose Calcium 7.8 L Magnesium 1.40 L Ferritin Alkaline Phosphatase Lactate Dehydrogenase Troponin T C-Reactive Protein NT-Pro-B Natriuret Pep Total Protein Albumin 01/16/20 01/16/20 01/16/20 08:35 11:49 14:11 WBC RBC Hgb Hct RDW Plt Count Lymph % (Auto) [place] % (Auto) Lymph # Seg Neutrophils % PT INR D-Dimer ABG pH ABG pO2 48.4 L ABG HCO3 30.5 H ABG O2 Saturation 81.9 L ABG Base Excess 4.6 H ABG Hemoglobin 10.5 L Oxyhemoglobin 80.1 L Sodium Chloride Carbon Dioxide BUN Creatinine Glucose POC Glucose 126 H 119 H Calcium Magnesium Ferritin Alkaline Phosphatase Lactate Dehydrogenase Troponin T C-Reactive Protein NT-Pro-B Natriuret Pep Total Protein Albumin 01/16/20 01/16/20 01/16/20 15:38 15:38 15:38 WBC RBC Hgb Hct RDW Plt Count Lymph % (Auto) [place] % (Auto) Lymph # Seg Neutrophils % PT INR D-Dimer 1104.64 H ABG pH ABG pO2 ABG HCO3 ABG O2 Saturation ABG Base Excess ABG Hemoglobin Oxyhemoglobin Sodium Chloride Carbon Dioxide BUN Creatinine Glucose POC Glucose Calcium Magnesium Ferritin > 2000.0 H Alkaline Phosphatase Lactate Dehydrogenase 690 H Troponin T C-Reactive Protein 24.10 H NT-Pro-B Natriuret Pep Total Protein Albumin 01/16/20 01/18/20 01/18/20 18:11 06:25 06:25 WBC RBC 3.15 L Hgb 9.4 L Hct 29.4 L RDW 17.5 H Plt Count 135 L Lymph % (Auto) 3.8 L [place] % (Auto) Lymph # 0.2 L Seg Neutrophils % 88.8 H PT INR D-Dimer ABG pH ABG pO2 ABG HCO3 ABG O2 Saturation ABG Base Excess ABG Hemoglobin Oxyhemoglobin Sodium Chloride 96.8 L Carbon Dioxide BUN 26 H Creatinine 4.2 H Glucose 115 H POC Glucose 130 H Calcium 8.2 L Magnesium Ferritin Alkaline Phosphatase Lactate Dehydrogenase 537 H Troponin T C-Reactive Protein 17.10 H NT-Pro-B Natriuret Pep Total Protein Albumin 01/18/20 01/18/20 01/18/20 06:25 06:25 12:15 WBC RBC Hgb Hct RDW Plt Count Lymph % (Auto) [place] % (Auto) Lymph # Seg Neutrophils % PT INR D-Dimer 938.03 H ABG pH ABG pO2 66.5 L ABG HCO3 30.1 H ABG O2 Saturation 93.2 L ABG Base Excess 4.6 H ABG Hemoglobin 10.0 L Oxyhemoglobin 91.3 L Sodium Chloride Carbon Dioxide BUN Creatinine Glucose POC Glucose Calcium Magnesium Ferritin 3105.0 H Alkaline Phosphatase Lactate Dehydrogenase Troponin T C-Reactive Protein NT-Pro-B Natriuret Pep Total Protein Albumin 01/20/20 01/20/20 01/20/20 07:37 07:37 07:37 WBC RBC Hgb Hct RDW Plt Count Lymph % (Auto) [place] % (Auto) Lymph # Seg Neutrophils % PT INR D-Dimer 2072.25 H ABG pH ABG pO2 ABG HCO3 ABG O2 Saturation ABG Base Excess ABG Hemoglobin Oxyhemoglobin Sodium Chloride Carbon Dioxide BUN Creatinine Glucose POC Glucose Calcium Magnesium Ferritin 1826.0 H Alkaline Phosphatase Lactate Dehydrogenase 496 H Troponin T C-Reactive Protein 19.30 H NT-Pro-B Natriuret Pep Total Protein Albumin 01/20/20 01/21/20 01/21/20 17:30 03:59 17:35 WBC RBC Hgb Hct RDW Plt Count Lymph % (Auto) [place] % (Auto) Lymph # Seg Neutrophils % PT INR D-Dimer ABG pH ABG pO2 61.1 L 67.4 L ABG HCO3 29.9 H 26.2 H ABG O2 Saturation 91.7 L 93.4 L ABG Base Excess 4.9 H ABG Hemoglobin 9.0 L 9.1 L Oxyhemoglobin 89.5 L 91.1 L Sodium 136 L Chloride Carbon Dioxide BUN 36 H Creatinine 4.9 H Glucose POC Glucose Calcium Magnesium Ferritin Alkaline Phosphatase Lactate Dehydrogenase Troponin T C-Reactive Protein NT-Pro-B Natriuret Pep Total Protein Albumin 01/21/20 01/22/20 01/22/20 Unknown 03:41 03:41 WBC RBC Hgb Hct RDW Plt Count Lymph % (Auto) [place] % (Auto) Lymph # Seg Neutrophils % PT INR D-Dimer ABG pH 7.465 H ABG pO2 48.9 L ABG HCO3 26.6 H ABG O2 Saturation 85.7 L ABG Base Excess ABG Hemoglobin 10.4 L Oxyhemoglobin 83.5 L Sodium Chloride Carbon Dioxide BUN Creatinine Glucose POC Glucose Calcium Magnesium Ferritin 6071.0 H Alkaline Phosphatase Lactate Dehydrogenase 963 H Troponin T C-Reactive Protein 30.00 H NT-Pro-B Natriuret Pep Total Protein Albumin 01/22/20 01/22/20 01/22/20 03:41 07:47 Unknown WBC RBC Hgb Hct RDW Plt Count Lymph % (Auto) [place] % (Auto) Lymph # Seg Neutrophils % PT INR D-Dimer > 71487 H ABG pH ABG pO2 77.7 L ABG HCO3 27.6 H ABG O2 Saturation ABG Base Excess ABG Hemoglobin 9.3 L Oxyhemoglobin 94.2 L Sodium Chloride 94.3 L Carbon Dioxide BUN 53 H Creatinine 6.5 H Glucose POC Glucose Calcium Magnesium Ferritin Alkaline Phosphatase Lactate Dehydrogenase Troponin T C-Reactive Protein NT-Pro-B Natriuret Pep Total Protein Albumin Allied health notes reviewed: nursing
[2020-01-22] MEDS: amLODIPine 10 MG TAB PO SCH (10:27)
[2020-01-22] MEDS: METOPROLOL TARTRATE 50 MG TAB PO SCH ×2 (10:27→21:40)
[2020-01-22] MEDS: HEPARIN 5,000 UNIT/1 ML VIAL SUB-Q SCH (10:27)
[2020-01-22] MEDS: DULoxetine 30 MG CAP PO SCH (10:27)
[2020-01-22] MEDS: FAMOTIDINE 20 MG TAB PO SCH (10:27)
--- NOTE | 2020-01-22 10:56 | Progress Note ---
Assessment and Plan Assessment and plan: Suspected COVID- 19 Patient with very elevated inflammatory markers of ferritin, CRP, LDH and d- dimer. Bilateral pneumonia. Continue antibiotics per ID ARDS. Etiology secondary to above. Acute hypoxemic respiratory failure. Continue oxygen to maintain sats greater than 92% Appears stable on HFNC; wean FiO2 then flow Chest pain Stress test neg for ischemia GERD and costochondritis in differential diagnosis Volume overload s/p hemodialysis Nephrology consulted,following Acute on Chronic diastolic CHF exacerbation Secondary to volume overload End stage renal disease on dialysis Nephrology following T2DM (type 2 diabetes mellitus) Continue continue coverage Check hemoglobin A1c Hypertension Continue antihypertensives Hyponatremia Secondary to increased volume--dilutional DVT prophylaxis On heparin and GI prophylaxis 01/11 Covid 19 survey testing sent, nasal swab done 01/10 01/12 Patient has acute resp failure. may need Oxygen on dc. awaiting Covid result 01/13 Still has shortness of breath, awaiting Covid test. 01/14 Pt still dyspneic, await covid testing, Pulse ox 83% 01/16/2020. Patient remains dyspneic. Follow-up COVID testing. 01/17/2020. Patient still requiring large amounts of oxygen. Patient currently with 15 L satting at 95%. Patient with increased inflammatory markers. Follow- up chest x-ray today. 01/18/20--Patient still requiring large amounts of oxygen. Patient currently with 15 L %. Patient with increased inflammatory markers. 01/19/2020 very elevated inflammatory markers- ferritin> 2000, CRP >24, LDH> 600, d-dimer >1000 putting her at high risk for ARDS. Continue hydroxychloroquine 400 mg PO BID for 1 day then 200 mg PO BID for 4 days (total 5 days) with zinc 220 mg PO qday. Continue ceftriaxone. ContinueCOVID [facility]precautions pe [facility]. Continue serial Ferritin, LDH, D-Dimer, CRP every 48h 01/20/2020. Inflammatory markers remain elevated with ferritin 1826, LDH 496, CRP 19.3, and d-dimer 2072. Patient requiring high flow nasal cannula 40L, FiO2 80%. Pulmonary following. Continue antibiotics and Plaquenil. Continue COVID isolationprecautions per [facility] protocol. Patient has a high risk mortality and remains guarded. 01/21/2020. Continue antibiotics and Plaquenil. Continue COVID isolationprecautions per [facility] protocol. Maintain sats of 88% and greater. Still on HFNC, O2 weaned to 95% overnight. Sats documented at 98%. Pulmonary following and reports If patient progresses could give bipap a one hour trial to see if there is improvement, repeat ABG, if not would suggest elective intubation. 01/22/2020 Patient still critically ill. Yesterday 01/20 had cardiopulmonary arrest so now intubated in ICU. Prognosis guarded. The high probability of a clinically significant, sudden or life threatening det erioration of the [immunologic and respiratory] system(s) required my full and direct attention, intervention and personal management. The aggregate critical care time was [35] minutes. This time is in addition to time spent performing reported procedures but includes the following: [x] Data Review and interpretation [x] Patient assessment and monitoring of vital signs [x] Documentation [x] Medication orders and management History Interval history: Patient initially presented with chest tightness, SOB Now diagnosed with Covid-19 infection,acute resp failure, intubated Hospitalist Physical - Physical exam Narrative exam: GEN: Intubated, sedated HEENT: Normocephalic, atraumatic, Neck: supple, No JVD Lungs: Bilateral crackles, heart;S1 and S2 reg, no murmurs, rubs or gallop Abd:soft, non tender, non distended, normal bowel sounds Ext: No edema, no clubbing, no cyanosis, Neuro: intubated, sedated - Constitutional Vitals: Temp Pulse Resp BP Pulse Ox 98.1 F 81 22 145/75 95 01/22/20 04:00 01/22/20 10:27 01/21/20 23:21 01/22/20 10:27 01/22/20 09:30 General appearance: Present: no acute distress BREEZY score - Breezy Score Age > 65: (1) Yes Aspirin use within the Past 7 Days: (1) Yes 3 or more CAD Risk Factors: (1) Yes 2 or more Angina events in past 24 hrs: (1) Yes Known CAD with more than 50% Stenosis: (0) No Elevated Cardiac Markers: (0) No ST Deviation Greater than 0.5mm: (0) No BREEZY Score: 4 Results - Labs CBC & Chem 7: 01/22/20 11:49 01/22/20 07:47 Labs: Laboratory Last Values WBC 5.6 K/mm3 (4.5-11.0) 01/18/20 06:25 RBC 3.15 M/mm3 (3.65-5.03) L 01/18/20 06:25 Hgb 9.4 gm/dl (10.1-14.3) L 01/18/20 06:25 Hct 29.4 % (30.3-42.9) L 01/18/20 06:25 MCV 94 fl (79-97) 01/18/20 06:25 MCH 30 pg (28-32) 01/18/20 06:25 MCHC 32 % (30-34) 01/18/20 06:25 RDW 17.5 % (13.2-15.2) H 01/18/20 06:25 Plt Count 135 K/mm3 (140-440) L 01/18/20 06:25 Lymph % (Auto) 3.8 % (13.4-35.0) L 01/18/20 06:25 [place] % (Auto) 6.5 % (0.0-7.3) 01/18/20 06:25 Eos % (Auto) 0.8 % (0.0-4.3) 01/18/20 06:25 Baso % (Auto) 0.1 % (0.0-1.8) 01/18/20 06:25 Lymph # 0.2 K/mm3 (1.2-5.4) L 01/18/20 06:25 [place] # 0.4 K/mm3 (0.0-0.8) 01/18/20 06:25 Eos # 0.0 K/mm3 (0.0-0.4) 01/18/20 06:25 Baso # 0.0 K/mm3 (0.0-0.1) 01/18/20 06:25 Seg Neutrophils % 88.8 % (40.0-70.0) H 01/18/20 06:25 Seg Neutrophils # 5.0 K/mm3 (1.8-7.7) 01/18/20 06:25 PT 15.6 Sec. (12.2-14.9) H 01/09/20 12:55 INR 1.22 (0.87-1.13) H 01/09/20 12:55 APTT 31.5 Sec. (24.2-36.6) 01/09/20 12:55 D-Dimer > 51429 ng/mlDDU (0-234) H 01/22/20 03:41 ABG pH 7.407 pH Units (7.350-7.450) 01/22/20 Unknown ABG pCO2 44.8 mm Hg 01/22/20 Unknown ABG pO2 77.7 mm Hg (80.0-90.0) L 01/22/20 Unknown ABG HCO3 27.6 mmol/L (20.0-26.0) H 01/22/20 Unknown ABG O2 Saturation 96.6 % (95.0-99.0) 01/22/20 Unknown ABG O2 Content 12.4 (0.0-44) 01/22/20 Unknown ABG Base Excess 2.5 mmol/L (-2.0-3.0) 01/22/20 Unknown ABG Hemoglobin 9.3 gm/dl (12.0-16.0) L 01/22/20 Unknown ABG Carboxyhemoglobin 2.0 % (0.0-5.0) 01/22/20 Unknown ABG Methemoglobin 0.5 % (0.0-1.5) 01/22/20 Unknown Oxyhemoglobin 94.2 % (95.0-99.0) L 01/22/20 Unknown FiO2 100 % 01/22/20 Unknown Sodium 139 mmol/L (137-145) 01/22/20 07:47 Potassium 4.8 mmol/L (3.6-5.0) 01/22/20 07:47 Chloride 94.3 mmol/L (98-107) L 01/22/20 07:47 Carbon Dioxide 24 mmol/L (22-30) 01/22/20 07:47 Anion Gap 26 mmol/L 01/22/20 07:47 BUN 53 mg/dL (7-17) H 01/22/20 07:47 Creatinine 6.5 mg/dL (0.7-1.2) H 01/22/20 07:47 Estimated GFR 8 ml/min 01/22/20 07:47 BUN/Creatinine Ratio 8 % 01/22/20 07:47 Glucose 72 mg/dL (65-100) 01/22/20 07:47 POC Glucose 72 (70-105) 01/21/20 15:50 Hemoglobin A1c 5.0 % (4-6) 01/10/20 06:54 Calcium 9.0 mg/dL (8.4-10.2) 01/22/20 07:47 Phosphorus 3.30 mg/dL (2.5-4.5) 01/12/20 16:01 Magnesium 2.00 mg/dL (1.7-2.3) 01/13/20 06:11 Ferritin 6071.0 ng/mL (13.0-400.0) H 01/22/20 03:41 Total Bilirubin 0.30 mg/dL (0.1-1.2) 01/10/20 06:54 AST 30 units/L (5-40) 01/10/20 06:54 ALT 24 units/L (7-56) 01/10/20 06:54 Alkaline Phosphatase 148 units/L (35-129) H 01/10/20 06:54 Lactate Dehydrogenase 963 units/L (91-180) H 01/22/20 03:41 Troponin T 0.315 ng/mL (0.00-0.029) H* 01/10/20 06:54 C-Reactive Protein 30.00 mg/dL (0.00-1.30) H 01/22/20 03:41 NT-Pro-B Natriuret Pep 28616 pg/mL (0-900) H 01/09/20 12:55 Total Protein 5.4 g/dL (6.3-8.2) L 01/10/20 06:54 Albumin 2.7 g/dL (3.9-5) L 01/10/20 06:54 Albumin/Globulin Ratio 1.0 % 01/10/20 06:54 Triglycerides 82 mg/dL (2-149) 01/09/20 12:55 Cholesterol 123 mg/dL (50-199) 01/09/20 12:55 LDL Cholesterol Direct 66 mg/dL (50-130) 01/09/20 12:55 HDL Cholesterol 47 mg/dL (40-59) 01/09/20 12:55 Cholesterol/HDL Ratio 2.61 % 01/09/20 12:55 Hepatitis A IgM Ab Non-reactive (NonReactive) 01/21/20 23:40 Hep Bs Antigen Non-reactive (Negative) 01/21/20 23:40 Hep B Core IgM Ab Non-reactive (NonReactive) 01/21/20 23:40 Hepatitis C Antibody Non-reactive (NonReactive) 01/21/20 23:40 Miscellaneous Test See scanned result 01/11/20 Unknown Miscellaneous Test See scanned result 01/11/20 Unknown Microbiology: Microbiology 01/21/20 17:35 Tracheal Aspirate Sputum Culture - Preliminary Pleitez/IV: Voiding Method Diaper IV Catheter Type [Right Peripheral IV External Jugular] IV Catheter Type [Left INT / Saline Lock External Jugular] Active Medications - Current Medications Current Medications: Generic Name Dose Route Start Last Admin Trade Name Freq PRN Reason Stop Dose Admin Acetaminophen 650 mg 01/09/20 16:33 01/12/20 18:23 Tylenol PO 650 mg Q4H PRN Administration Pain MILD(1-3)/Fever >100.5/MEANS Acetaminophen/Hydrocodone Bitart 1 each 01/09/20 16:15 01/20/20 13:15 [place] 5/325 PO 1 each Q6HR PRN Administration Pain, Moderate (4-6) Amlodipine Besylate 10 mg 01/09/20 17:00 01/22/20 10:27 Amlodipine PO 10 mg DAILY PHILLY Administration Atorvastatin Calcium 40 mg 01/09/20 22:00 01/21/20 23:15 Lipitor PO 40 mg QHS PHILLY Administration Cyclobenzaprine HCl 5 mg 01/09/20 16:27 01/10/20 23:17 Flexeril PO 5 mg QHS PRN Administration Muscle Spasm Diphenhydramine HCl 25 mg 01/09/20 16:15 01/12/20 00:50 Benadryl PO 25 mg Q8HR PRN Administration Itching Duloxetine HCl 30 mg 01/09/20 17:00 01/22/20 10:27 Cymbalta PO 30 mg QDAY PHILLY Administration Famotidine 20 mg 01/09/20 22:00 01/22/20 10:27 Pepcid PO 20 mg DAILY PHILLY Administration Heparin Sodium (Porcine) 5,000 unit 01/10/20 10:00 01/22/20 10:27 Heparin SUB-Q 5,000 unit Q12HR PHILLY Administration Sodium Chloride 100 mls @ 999 mls/hr 01/09/20 19:13 Nacl 0.9% IV SILVERIO PRN Hypotension Cefepime HCl 1 gm in 100 mls @ 200 mls/hr 01/21/20 18:00 01/21/20 05:15 Cefepime/Ns 1 Gm/100 Ml IV 01/25/20 18:29 200 mls/hr QPM PHILLY Administration Norepinephrine 4 mg in 250 mls @ 7.5 mls/hr 01/21/20 18:00 Levophed Drip 4 Mg/Ns 250 Ml IV TITR PHILLY Protocol 2 MCG/MIN Propofol 1,000 mg in 100 mls @ 2.265 mls/hr 01/22/20 09:00 01/22/20 10:26 Diprivan 10 Mg/Ml IV 5 mcg/kg/min TITR PHILLY 2.265 mls/hr Administration Protocol 5 MCG/KG/MIN Metoprolol Tartrate 50 mg 01/20/20 22:00 01/22/20 10:27 Metoprolol PO 50 mg BID PHILLY Administration Ondansetron HCl 4 mg 01/09/20 16:33 01/20/20 10:19 Zofran IV 4 mg Q8H PRN Administration Nausea And Vomiting Oxycodone/Acetaminophen 1 tab 01/09/20 16:43 01/20/20 03:19 Percocet 5/325 PO 1 tab Q6H PRN Administration Pain, Moderate (4-6) Sodium Chloride 10 ml 01/09/20 22:00 01/22/20 10:28 Sodium Chloride Flush Syringe 10 Ml IV 10 ml BID PHILLY Administration Sodium Chloride 10 ml 01/09/20 16:33 Sodium Chloride Flush Syringe 10 Ml IV PRN PRN LINE FLUSH Tramadol HCl 50 mg 01/16/20 13:07 01/20/20 10:19 Ultram PO 50 mg Q12HR PRN Administration Pain, Moderate (4-6) Valsartan 80 mg 01/10/20 10:00 01/21/20 14:20 Diovan PO 80 mg DAILY PHILLY Administration Nutrition/Malnutrition Assess - Dietary Evaluation Nutrition/Malnutrition Findings: Nutrition Notes Start: 01/17/20 13:49 Freq: Status: Active Protocol: Document 01/21/20 15:17 KAYLA (Rec: 01/21/20 15:25 KAYLA [email or web address]) Nutrition Notes Initial or Follow up Reassessment Current Diagnosis CKD (stage V CKD),Diabetes, Hypertension,Heart Failure, Respiratory Failure Other Pertinent Diagnosis Bilat pneu, COVID-19 (+), ARDS , volume overload, Chest pain Current Diet Renal + Nepro BID Labs/Tests reviewed Pertinent Medications reviewed Height 5 ft 6 in Weight 75.5 kg [place] Body Weight (kg) 59.09 BMI 26.9 Subjective/Other Information Per pulmonary, pt with poor prognosis. PO intake very poor (<25% of meals). Pt on high flow O2 and on non- rebreather mask. Burn Absent Trauma Absent #1 Nutrition Diagnosis Malnutrition Diagnosis Progress(for reassessment Continues documentation) Is patient on ventilator? No Is Patient Ambulatory and/or Out of Bed No REE-([facility]-confined to bed) [phone] Calculation Used for Recommendations [facility] Additional Notes Protein: 91g (>1.2g/kg) Fluid: per MD Nutrition Intervention Change Diet Order: Continue current diet as tolerated Add Supplement/Snack (indicate name/kcal Nepro BID /protein ) Provides kCal: 850 Provides Protein (gm) 38 Goal #1 PO tolerance Goal #2 Meet at least 75% of energy and protein needs via PO intake Follow-Up By: 01/23/20 Additional Comments F/U: POC, PO tolerance/intakes , respiratory status
[2020-01-22] MEDS: VALSARTAN 40 MG TAB PO SCH (11:11)
[2020-01-22] MEDS ORDERED: SODIUM CHLORIDE 0.9% 100 ML IV PRN (11:35)
[2020-01-22 11:40] LABS: ABG Base Excess 2.8 mmol/L (-2.0-3.0); ABG HCO3 28.7 mmol/L (20.0-26.0); ABG Methemoglobin 0.5 % (0.0-1.5); ABG Oxygen Saturation 91.9 % (95.0-99.0); ABG PCO2 51.6 mm Hg; ABG PH 7.364 pH Units (7.350-7.450); ABG PO2 66.7 mm Hg (80.0-90.0)
[2020-01-22 14:41] LABS: Hematocrit 28.3 % (30.3-42.9); Hemoglobin 8.8 gm/dl (10.1-14.3); Mean Corpuscular HGB Conc 31 % (30-34); Mean Corpuscular Volume 93 fl (79-97); Platelet Count 125 K/mm3 (140-440); Red Blood Count 3.05 M/mm3 (3.65-5.03); Red Cell Distribution Width 17.8 % (13.2-15.2)
--- NOTE | 2020-01-22 16:00 | Progress Note ---
Assessment and Plan Cultures: Blood culture 01/14/2020 no growth to date A/P: #Fever: no fever. likely due to severe COVID pneumonia. #Severe COVID pneumonia: very elevated inflammatory markers- ferritin> 2000, CRP >24, LDH> 600, d-dimer >1000 putting her at high risk for ARDS. Markers continue to worsen #Acute resp failure: on Nonrebreathing and HFO2 worsening, needing intubation, Dr Aiken on board #ESRD on HD #Thrombocytopenia: monitor Recs: S/p po ivermectin (off labe use), inhibits COVID replication in vitro on 01/21/2020 2nd dose of ivermectin today On steroid trial to start therapeutic heparin dose -Ddimer >10,000 Discuss code status with family, high risk mortality S/p hydroxychloroquine with zinc 5 of 5 Continue cefepime 2 of 5 Obtain serial Ferritin, LDH, D-Dimer, CRP every 48h High risk mortality Angela Bales MD Infectious Diseases [facility] ([facility]) M [phone] Subjective Date of service: 01/22/20 Principal diagnosis: Pneumonia Interval history: Intubated fiO2 80, p14 no fever Objective - Exam Narrative Exam: Gen: intubated sedated Head, Ears, Nose: Normocephalic, atraumatic. Oral: Limited Cardiovascular: Limited evaluation due to PPE shortage Respiratory: steph crackles GI: Limited evaluation due to PPE shortage Musculoskeletal: Limited evaluation due to PPE shortage Neurological: sedated - Constitutional Vitals: Vital Signs Temp Pulse Resp BP Pulse Ox 98.2 F 75 24 120/46 97 01/22/20 08:00 01/22/20 15:00 01/22/20 15:00 01/22/20 15:00 01/22/20 15:00 Temperature -Last 24 Hours Temperature 98.2 F Temperature 98.1 F Temperature 98.9 F Temperature 98.8 F - Labs CBC & Chem 7: 01/22/20 11:49 01/22/20 07:47 Labs: Abnormal lab results 01/21/20 01/21/20 01/22/20 Range/Units 17:35 Unknown 03:41 WBC (4.5-11.0) K/mm3 RBC (3.65-5.03) M/mm3 Hgb (10.1-14.3) gm/dl Hct (30.3-42.9) % RDW (13.2-15.2) % Plt Count (140-440) K/mm3 D-Dimer (0-234) ng/mlDDU ABG pH 7.465 H (7.350-7.450) pH Units ABG pO2 67.4 L 48.9 L (80.0-90.0) mm Hg ABG HCO3 26.2 H 26.6 H (20.0-26.0) mmol/L ABG O2 Saturation 93.4 L 85.7 L (95.0-99.0) % ABG Hemoglobin 9.1 L 10.4 L (12.0-16.0) gm/dl Oxyhemoglobin 91.1 L 83.5 L (95.0-99.0) % Chloride (98-107) mmol/L BUN (7-17) mg/dL Creatinine (0.7-1.2) mg/dL Ferritin 6071.0 H (13.0-400.0) ng/mL Lactate Dehydrogenase (91-180) units/L C-Reactive Protein (0.00-1.30) mg/dL 01/22/20 01/22/20 01/22/20 Range/Units 03:41 03:41 07:47 WBC (4.5-11.0) K/mm3 RBC (3.65-5.03) M/mm3 Hgb (10.1-14.3) gm/dl Hct (30.3-42.9) % RDW (13.2-15.2) % Plt Count (140-440) K/mm3 D-Dimer > 34630 H (0-234) ng/mlDDU ABG pH (7.350-7.450) pH Units ABG pO2 (80.0-90.0) mm Hg ABG HCO3 (20.0-26.0) mmol/L ABG O2 Saturation (95.0-99.0) % ABG Hemoglobin (12.0-16.0) gm/dl Oxyhemoglobin (95.0-99.0) % Chloride 94.3 L (98-107) mmol/L BUN 53 H (7-17) mg/dL Creatinine 6.5 H (0.7-1.2) mg/dL Ferritin (13.0-400.0) ng/mL Lactate Dehydrogenase 963 H (91-180) units/L C-Reactive Protein 30.00 H (0.00-1.30) mg/dL 01/22/20 01/22/20 01/22/20 Range/Units 11:20 11:49 Unknown WBC 15.1 H (4.5-11.0) K/mm3 RBC 3.05 L (3.65-5.03) M/mm3 Hgb 8.8 L (10.1-14.3) gm/dl Hct 28.3 L (30.3-42.9) % RDW 17.8 H (13.2-15.2) % Plt Count 125 L (140-440) K/mm3 D-Dimer (0-234) ng/mlDDU ABG pH (7.350-7.450) pH Units ABG pO2 66.7 L 77.7 L (80.0-90.0) mm Hg ABG HCO3 28.7 H 27.6 H (20.0-26.0) mmol/L ABG O2 Saturation 91.9 L (95.0-99.0) % ABG Hemoglobin 9.1 L 9.3 L (12.0-16.0) gm/dl Oxyhemoglobin 89.5 L 94.2 L (95.0-99.0) % Chloride (98-107) mmol/L BUN (7-17) mg/dL Creatinine (0.7-1.2) mg/dL Ferritin (13.0-400.0) ng/mL Lactate Dehydrogenase (91-180) units/L C-Reactive Protein (0.00-1.30) mg/dL
--- NOTE | 2020-01-22 16:48 | Progress Note ---
Assessment and Plan - Patient Problems (1) ESRD needing dialysis Current Visit: No Status: Acute Plan to address problem: Patient on MWF schedule. Plan for isolated UF session today. (2) Volume overload Current Visit: Yes Status: Acute Qualifiers: Plan to address problem: Goal is to optimize volume status with adequate fluid removal with HD. Evaluate daily for need of extra isolated UF sessions. Extra isolated UF session today. (3) Pneumonia due to COVID-19 virus Current Visit: Yes Status: Acute Plan to address problem: Management per ID recommendations. (4) Hyponatremia Current Visit: No Status: Acute Plan to address problem: Possibly in the setting of fluid overload. Optimze volume status with adequate UF during HD. (5) Hypertensive chronic kidney disease with stage 5 chronic kidney disease or end stage renal disease Current Visit: No Status: Chronic Plan to address problem: Monitor on current regimen. (6) Anemia in CKD (chronic kidney disease) Current Visit: Yes Status: Acute Qualifiers: Chronic kidney disease stage: on chronic dialysis Qualified Code(s): N18.6 - End stage renal disease; D63.1 - Anemia in chronic kidney disease; Z99.2 - Dependence on renal dialysis Plan to address problem: CLARITA therapy with HD. (7) Secondary hyperparathyroidism (of renal origin) Current Visit: Yes Status: Chronic Plan to address problem: Continue on current outpatient phos binder regimen. Subjective Date of service: 01/22/20 Principal diagnosis: Pneumonia Interval history: Transferred to the ICU and eventually intubated secondary to worsening respiratory failure. 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 She is not on pressors at this time and discussed with staff that we will be doing extra isolated UF session today in order to improve her respiratory status. Objective - Vital Signs Vital signs: Vital Signs - 12hr 01/22/20 01/22/20 01/22/20 04:56 06:50 07:00 Temperature Pulse Rate 79 80 81 Pulse Rate [ Right Radial] Respiratory 28 H 28 H Rate Blood Pressure 151/71 139/73 149/71 O2 Sat by Pulse 99 91 91 Oximetry 01/22/20 01/22/20 01/22/20 07:10 07:20 07:30 Temperature Pulse Rate 79 80 80 Pulse Rate [ Right Radial] Respiratory 27 H 27 H 27 H Rate Blood Pressure 147/72 147/65 148/69 O2 Sat by Pulse 92 92 92 Oximetry 01/22/20 01/22/20 01/22/20 07:40 07:50 08:00 Temperature 98.2 F Pulse Rate 81 81 80 Pulse Rate [ Right Radial] Respiratory 26 H 27 H 27 H Rate Blood Pressure 148/73 148/71 151/75 O2 Sat by Pulse 93 93 93 Oximetry 01/22/20 01/22/20 01/22/20 08:10 08:20 08:30 Temperature Pulse Rate 81 81 80 Pulse Rate [ Right Radial] Respiratory 26 H 27 H 27 H Rate Blood Pressure 147/69 147/69 148/68 O2 Sat by Pulse 92 92 93 Oximetry 01/22/20 01/22/20 01/22/20 08:40 08:50 09:00 Temperature Pulse Rate 81 80 81 Pulse Rate [ Right Radial] Respiratory 25 H 27 H 26 H Rate Blood Pressure 144/68 144/70 147/70 O2 Sat by Pulse 92 92 94 Oximetry 01/22/20 01/22/20 01/22/20 09:10 09:20 09:30 Temperature Pulse Rate 79 81 80 Pulse Rate [ Right Radial] Respiratory 24 26 H 20 Rate Blood Pressure 145/68 148/64 133/69 O2 Sat by Pulse 93 94 92 Oximetry 01/22/20 01/22/20 01/22/20 09:40 09:50 10:00 Temperature Pulse Rate 80 81 80 Pulse Rate [ Right Radial] Respiratory 27 H 24 23 Rate Blood Pressure 129/72 148/58 148/72 O2 Sat by Pulse 94 93 94 Oximetry 01/22/20 01/22/20 01/22/20 10:10 10:20 10:27 Temperature Pulse Rate 80 80 81 Pulse Rate [ Right Radial] Respiratory 27 H 26 H Rate Blood Pressure 139/72 146/75 145/75 O2 Sat by Pulse 94 93 Oximetry 01/22/20 01/22/20 01/22/20 10:30 10:40 10:50 Temperature Pulse Rate 80 80 79 Pulse Rate [ Right Radial] Respiratory 26 H 27 H 24 Rate Blood Pressure 140/71 140/71 146/60 O2 Sat by Pulse 94 95 94 Oximetry 01/22/20 01/22/20 01/22/20 11:00 11:10 11:20 Temperature Pulse Rate 74 73 73 Pulse Rate [ Right Radial] Respiratory 22 21 22 Rate Blood Pressure 126/65 126/65 125/60 O2 Sat by Pulse 95 96 96 Oximetry 01/22/20 01/22/20 01/22/20 11:30 11:40 11:50 Temperature Pulse Rate 72 73 72 Pulse Rate [ Right Radial] Respiratory 21 23 21 Rate Blood Pressure 122/58 122/58 132/66 O2 Sat by Pulse 95 96 96 Oximetry 01/22/20 01/22/20 01/22/20 12:00 12:10 12:18 Temperature Pulse Rate 74 74 81 Pulse Rate [ 73 Right Radial] Respiratory 21 28 H Rate Blood Pressure 128/62 128/62 137/63 O2 Sat by Pulse 96 97 97 Oximetry 01/22/20 01/22/20 01/22/20 12:20 12:30 12:40 Temperature Pulse Rate 73 73 75 Pulse Rate [ Right Radial] Respiratory 21 22 21 Rate Blood Pressure 137/63 134/66 134/66 O2 Sat by Pulse 97 95 97 Oximetry 01/22/20 01/22/20 01/22/20 12:50 13:00 13:10 Temperature Pulse Rate 74 76 74 Pulse Rate [ Right Radial] Respiratory 22 25 H 22 Rate Blood Pressure 144/71 144/71 142/75 O2 Sat by Pulse 97 96 97 Oximetry 01/22/20 01/22/20 01/22/20 13:20 13:30 13:40 Temperature Pulse Rate 75 76 75 Pulse Rate [ Right Radial] Respiratory 15 22 13 Rate Blood Pressure 136/67 145/72 145/72 O2 Sat by Pulse 97 95 98 Oximetry 01/22/20 01/22/20 01/22/20 13:50 14:00 14:10 Temperature Pulse Rate 75 76 76 Pulse Rate [ Right Radial] Respiratory 17 21 20 Rate Blood Pressure 140/69 143/58 143/58 O2 Sat by Pulse 97 96 98 Oximetry 01/22/20 01/22/20 01/22/20 14:20 14:30 14:40 Temperature Pulse Rate 76 77 76 Pulse Rate [ Right Radial] Respiratory 23 17 21 Rate Blood Pressure 124/61 136/64 136/64 O2 Sat by Pulse 98 96 97 Oximetry 01/22/20 01/22/20 01/22/20 14:50 15:00 15:10 Temperature Pulse Rate 77 75 76 Pulse Rate [ Right Radial] Respiratory 19 24 21 Rate Blood Pressure 133/69 120/46 120/46 O2 Sat by Pulse 98 97 97 Oximetry 01/22/20 01/22/20 01/22/20 15:20 15:30 15:40 Temperature Pulse Rate 76 76 76 Pulse Rate [ Right Radial] Respiratory 13 12 20 Rate Blood Pressure 120/46 131/57 131/57 O2 Sat by Pulse 98 97 99 Oximetry 01/22/20 01/22/20 15:50 16:00 Temperature Pulse Rate 75 76 Pulse Rate [ 76 Right Radial] Respiratory 20 17 Rate Blood Pressure 140/66 136/69 O2 Sat by Pulse 98 97 Oximetry - General Appearance General appearance: chronically ill, intubated, frail EENT: ATNC Neck: no JVD Respiratory: Present: Ronchi Cardiology: regular Gastrointestinal: normal Integumentary: no rash Musculoskeletal: deferred - Lab 01/22/20 11:49 01/22/20 07:47 Most recent lab results ABG pH 7.407 pH Units (7.350-7.450) 01/22/20 Unknown ABG pCO2 44.8 mm Hg 01/22/20 Unknown ABG pO2 77.7 mm Hg (80.0-90.0) L 01/22/20 Unknown ABG HCO3 27.6 mmol/L (20.0-26.0) H 01/22/20 Unknown ABG O2 Saturation 96.6 % (95.0-99.0) 01/22/20 Unknown Calcium 9.0 mg/dL (8.4-10.2) 01/22/20 07:47 Phosphorus 3.30 mg/dL (2.5-4.5) 01/12/20 16:01 Magnesium 2.00 mg/dL (1.7-2.3) 01/13/20 06:11 Medications & Allergies - Medications Allergies/Adverse Reactions: Allergies cheese Allergy (Mild, Verified 12/20/19 10:19) Itching iodine Allergy (Mild, Verified 12/20/19 10:16) Anaphylaxis clonidine Allergy (Verified 12/19/19 04:13) Anaphylaxis shellfish derived Adverse Reaction (Verified 12/19/19 04:13) Angioedema Home Medications: Home Medications Medication Instructions Recorded Confirmed Last Taken Type Atorvastatin [Lipitor] 40 mg PO DAILY 11/06/19 01/13/20 01/02/20 10:00 History Acetaminophen [Acetaminophen 8 650 mg PO Q8H PRN #30 tablet.er 11/21/19 01/13/2020 22:00 Rx Hour] Cyclobenzaprine HCl [Flexeril 5 MG 5 mg PO QHS PRN #20 tab 11/21/19 01/13/20 01/01/20 22:00 Rx TAB] HYDROcodone/APAP 5-325 [[place] 1 each PO Q6HR PRN #18 tablet 12/13/19 01/13/20 01/01/20 22:00 Rx 5-325 mg TAB] amLODIPine 10 mg PO DAILY 90 Days #90 tab 12/18/19 01/13/20 01/01/20 10:00 Rx Ibuprofen 800 mg PO TID 12/19/19 01/13/20 01/02/20 22:00 History Magnesium Oxide [Mag-Ox] 400 mg PO QDAY 12/19/19 01/13/20 01/03/20 10:00 History diphenhydrAMINE [Benadryl CAP] 25 mg PO Q8HR PRN 12/19/19 01/13/20 01/03/20 21:00 History labetaloL [Labetalol 100mg TAB] 100 mg PO Q8H #90 tablet 12/21/19 01/13/20 01/02/20 10:00 Rx traMADoL [Ultram 50 MG tab] 50 mg PO Q6HR PRN #20 tablet 12/29/19 01/13/20 12/31/19 10:00 Rx DULoxetine [Cymbalta] 30 mg PO QDAY #30 capsule 01/04/20 01/13/20 Unknown Rx Valsartan [Diovan] 80 mg PO DAILY #30 tablet 01/04/20 01/13/20 Unknown Rx Active Medications: Generic Name Dose Route Start Last Admin Trade Name Freq PRN Reason Stop Dose Admin Acetaminophen 650 mg 01/09/20 16:33 01/12/20 18:23 Tylenol PO 650 mg Q4H PRN Administration Pain MILD(1-3)/Fever >100.5/MEANS Acetaminophen/Hydrocodone Bitart 1 each 01/09/20 16:15 01/20/20 13:15 [place] 5/325 PO 1 each Q6HR PRN Administration Pain, Moderate (4-6) Amlodipine Besylate 10 mg 01/09/20 17:00 01/22/20 10:27 Amlodipine PO 10 mg DAILY PHILLY Administration Atorvastatin Calcium 40 mg 01/09/20 22:00 01/21/20 23:15 Lipitor PO 40 mg QHS PHILLY Administration Cyclobenzaprine HCl 5 mg 01/09/20 16:27 01/10/20 23:17 Flexeril PO 5 mg QHS PRN Administration Muscle Spasm Diphenhydramine HCl 25 mg 01/09/20 16:15 01/12/20 00:50 Benadryl PO 25 mg Q8HR PRN Administration Itching Duloxetine HCl 30 mg 01/09/20 17:00 01/22/20 10:27 Cymbalta PO 30 mg QDAY PHILLY Administration Enoxaparin Sodium 80 mg 01/23/20 12:00 Enoxaparin SUB-Q Q24HR PHILLY Famotidine 20 mg 01/09/20 22:00 01/22/20 10:27 Pepcid PO 20 mg DAILY PHILLY Administration Cefepime HCl 1 gm in 100 mls @ 200 mls/hr 01/21/20 18:00 01/21/20 05:15 Cefepime/Ns 1 Gm/100 Ml IV 01/25/20 18:29 200 mls/hr QPM PHILLY Administration Norepinephrine 4 mg in 250 mls @ 7.5 mls/hr 01/21/20 18:00 Levophed Drip 4 Mg/Ns 250 Ml IV TITR PHILLY Protocol 2 MCG/MIN Propofol 1,000 mg in 100 mls @ 2.265 mls/hr 01/22/20 09:00 01/22/20 16:35 Diprivan 10 Mg/Ml IV 15 mcg/kg/min TITR PHILLY 6.795 mls/hr Titration Protocol 5 MCG/KG/MIN Sodium Chloride 100 mls @ 999 mls/hr 01/22/20 11:35 Nacl 0.9% IV SILVERIO PRN Hypotension Metoprolol Tartrate 50 mg 01/20/20 22:00 01/22/20 10:27 Metoprolol PO 50 mg BID PHILLY Administration Ondansetron HCl 4 mg 01/09/20 16:33 01/20/20 10:19 Zofran IV 4 mg Q8H PRN Administration Nausea And Vomiting Oxycodone/Acetaminophen 1 tab 01/09/20 16:43 01/20/20 03:19 Percocet 5/325 PO 1 tab Q6H PRN Administration Pain, Moderate (4-6) Sodium Chloride 10 ml 01/09/20 22:00 01/22/20 10:28 Sodium Chloride Flush Syringe 10 Ml IV 10 ml BID PHILLY Administration Sodium Chloride 10 ml 01/09/20 16:33 Sodium Chloride Flush Syringe 10 Ml IV PRN PRN LINE FLUSH Tramadol HCl 50 mg 01/16/20 13:07 01/20/20 10:19 Ultram PO 50 mg Q12HR PRN Administration Pain, Moderate (4-6) Valsartan 80 mg 01/10/20 10:00 01/22/20 11:11 Diovan PO Not Given DAILY PHILLY
[2020-01-22] MEDS: NORepinephrine/NS 4 MG-250 ML 4 MG/250 ML BAG IV SCH (17:46)
[2020-01-22] MEDS: CEFEPIME/NS 1 GM/100 ML 1 GM/100 ML BAG IV SCH (17:49)
[2020-01-23 05:02] LABS: Hematocrit 28.6 % (30.3-42.9); Hemoglobin 8.9 gm/dl (10.1-14.3); Mean Corpuscular HGB Conc 31 % (30-34); Mean Corpuscular Volume 93 fl (79-97); Platelet Count 139 K/mm3 (140-440); Red Blood Count 3.08 M/mm3 (3.65-5.03); Red Cell Distribution Width 17.8 % (13.2-15.2)
[2020-01-23 05:28] LABS: ABG Base Excess 2.2 mmol/L (-2.0-3.0); ABG HCO3 28.8 mmol/L (20.0-26.0); ABG Methemoglobin 0.6 % (0.0-1.5); ABG Oxygen Saturation 98.5 % (95.0-99.0); ABG PCO2 54.7 mm Hg; ABG PH 7.34 pH Units (7.350-7.450); ABG PO2 136.3 mm Hg (80.0-90.0)
[2020-01-23] MEDS ORDERED: DEXTROSE 50% IN WATER (25GM) 50 ML SYRINGE IV ONE (06:16)
--- NOTE | 2020-01-23 08:53 | Progress Note ---
Assessment and Plan 64 y/o female with COVID positive, viral pneumonia with some pulmonary vascular congestion superimposed. 1. Increase sedation has helped. Will increase more as she is breathing over the vent. off levophed. Will wean FiO2 for sats >88%. Keep PEEP at 20, once FiO2 is under 60% then start to wean. No more than 2cmH2O of water at a time. 2. HD per renal. 3. Will discuss with ID about Ivermectin. Does not show up on DEC at this time. Also started empiric VTE therapy on yesterday. So far no issues. 4. Overall prognosis is guarded to poor, especially with prior history of ESRD on HD. Continue supportive care CCT 31 minutes. Subjective Date of service: 01/23/20 Principal diagnosis: Pneumonia Interval history: No acute events. Oxygenation is better but still breathing over the vent. Sat is 100% on monitor. STill on 80. FiO2 not weaned yet. Objective Vital Signs - 12hr 01/22/20 01/22/20 01/22/20 20:50 21:00 21:10 Temperature Pulse Rate 76 76 76 Pulse Rate [ Right Radial] Respiratory 16 16 16 Rate Blood Pressure 133/64 117/61 117/61 O2 Sat by Pulse 100 100 100 Oximetry 01/22/20 01/22/20 01/22/20 21:20 21:30 21:40 Temperature Pulse Rate 75 76 77 Pulse Rate [ Right Radial] Respiratory 16 18 18 Rate Blood Pressure 110/62 123/66 123/66 O2 Sat by Pulse 100 100 100 Oximetry 01/22/20 01/22/20 01/22/20 21:50 22:00 22:10 Temperature Pulse Rate 77 75 74 Pulse Rate [ Right Radial] Respiratory 17 16 15 Rate Blood Pressure 113/68 123/65 123/65 O2 Sat by Pulse 100 100 100 Oximetry 01/22/20 01/22/20 01/22/20 22:20 22:30 22:40 Temperature Pulse Rate 73 73 73 Pulse Rate [ Right Radial] Respiratory 15 23 16 Rate Blood Pressure 113/62 122/65 122/65 O2 Sat by Pulse 100 100 100 Oximetry 01/22/20 01/22/20 01/22/20 22:50 23:00 23:10 Temperature Pulse Rate 73 74 74 Pulse Rate [ Right Radial] Respiratory 15 20 15 Rate Blood Pressure 112/61 130/67 130/67 O2 Sat by Pulse 100 100 100 Oximetry 01/22/20 01/22/20 01/22/20 23:20 23:30 23:40 Temperature Pulse Rate 73 74 74 Pulse Rate [ Right Radial] Respiratory 15 14 15 Rate Blood Pressure 123/60 117/63 117/63 O2 Sat by Pulse 100 100 100 Oximetry 01/22/20 01/22/20 01/22/20 23:48 23:50 23:55 Temperature Pulse Rate 73 75 75 Pulse Rate [ Right Radial] Respiratory 16 19 Rate Blood Pressure 109/59 109/59 O2 Sat by Pulse 100 100 100 Oximetry 01/23/20 01/23/20 01/23/20 00:00 00:10 00:20 Temperature Pulse Rate 75 77 77 Pulse Rate [ 76 Right Radial] Respiratory 18 20 20 Rate Blood Pressure 127/67 127/67 137/68 O2 Sat by Pulse 100 100 100 Oximetry 01/23/20 01/23/20 01/23/20 00:30 00:40 00:50 Temperature Pulse Rate 74 73 72 Pulse Rate [ Right Radial] Respiratory 10 L 19 21 Rate Blood Pressure 111/58 111/58 107/52 O2 Sat by Pulse 100 100 100 Oximetry 01/23/20 01/23/20 01/23/20 01:00 01:10 01:20 Temperature Pulse Rate 71 71 71 Pulse Rate [ Right Radial] Respiratory 14 18 17 Rate Blood Pressure 100/48 100/48 102/51 O2 Sat by Pulse 100 100 100 Oximetry 01/23/20 01/23/20 01/23/20 01:30 01:40 01:50 Temperature Pulse Rate 71 72 73 Pulse Rate [ Right Radial] Respiratory 15 18 22 Rate Blood Pressure 105/52 100/48 103/52 O2 Sat by Pulse 99 100 100 Oximetry 01/23/20 01/23/20 01/23/20 02:00 02:10 02:20 Temperature Pulse Rate 72 72 73 Pulse Rate [ Right Radial] Respiratory 19 18 18 Rate Blood Pressure 113/53 113/53 111/52 O2 Sat by Pulse 99 100 100 Oximetry 01/23/20 01/23/20 01/23/20 02:30 02:40 02:50 Temperature Pulse Rate 72 72 72 Pulse Rate [ Right Radial] Respiratory 18 16 16 Rate Blood Pressure 104/56 104/56 107/56 O2 Sat by Pulse 100 100 100 Oximetry 01/23/20 01/23/2020 03:00 03:10 03:20 Temperature Pulse Rate 72 73 74 Pulse Rate [ Right Radial] Respiratory 17 16 17 Rate Blood Pressure 109/53 109/53 110/55 O2 Sat by Pulse 100 100 100 Oximetry 01/23/20 01/23/20 01/23/20 03:30 03:40 03:50 Temperature Pulse Rate 74 75 75 Pulse Rate [ Right Radial] Respiratory 18 19 17 Rate Blood Pressure 118/58 118/58 115/56 O2 Sat by Pulse 99 100 100 Oximetry 01/23/20 01/23/20 01/23/20 04:00 04:10 04:20 Temperature Pulse Rate 75 75 75 Pulse Rate [ 76 Right Radial] Respiratory 17 17 18 Rate Blood Pressure 125/58 125/58 112/55 O2 Sat by Pulse 99 100 100 Oximetry 01/23/20 01/23/20 01/23/20 04:30 04:40 04:50 Temperature Pulse Rate 76 77 75 Pulse Rate [ Right Radial] Respiratory 18 26 H 17 Rate Blood Pressure 112/55 119/59 O2 Sat by Pulse 100 100 100 Oximetry 01/23/20 01/23/20 01/23/20 04:56 05:00 05:10 Temperature Pulse Rate 74 74 73 Pulse Rate [ Right Radial] Respiratory 16 17 Rate Blood Pressure 119/59 92/49 O2 Sat by Pulse 100 100 100 Oximetry 01/23/20 01/23/20 01/23/20 05:20 05:30 05:40 Temperature Pulse Rate 72 71 71 Pulse Rate [ Right Radial] Respiratory 18 16 19 Rate Blood Pressure 91/50 90/50 90/50 O2 Sat by Pulse 100 100 100 Oximetry 01/23/20 01/23/20 01/23/20 05:50 06:00 08:00 Temperature 98.9 F Pulse Rate 72 71 Pulse Rate [ Right Radial] Respiratory 14 14 Rate Blood Pressure 98/54 99/51 O2 Sat by Pulse 100 100 Oximetry Constitutional: other (orally intubated, not sedated currently on vent) Eyes: non-icteric ENT: oropharynx moist Neck: supple Effort: normal Ascultation: Bilateral: rales Cardiovascular: regular rate and rhythm (no mrg) Gastrointestinal: normoactive bowel sounds, soft, non-tender, non-distended Integumentary: normal Extremities: no cyanosis, no edema, pink and warm Neurologic: normal mental status, non-focal exam, pupils equal and round, CN II- XII normal Psychiatric: mood appropriate, affect normal CBC and BMP: 01/23/20 Unknown 01/22/20 07:47 ABG, PT/INR, D-dimer: ABG ABG pH 7.340 pH Units (7.350-7.450) L 01/23/20 04:55 ABG pCO2 54.7 mm Hg 01/23/20 04:55 ABG pO2 136.3 mm Hg (80.0-90.0) H 01/23/20 04:55 ABG O2 Saturation 98.5 % (95.0-99.0) 01/23/20 04:55 PT/INR, D-dimer PT 15.6 Sec. (12.2-14.9) H 01/09/20 12:55 INR 1.22 (0.87-1.13) H 01/09/20 12:55 D-Dimer > 97738 ng/mlDDU (0-234) H 01/22/20 03:41 Abnormal lab findings: Abnormal Labs 01/09/20 01/09/20 01/09/20 12:55 12:55 12:55 WBC 4.4 L RBC 3.44 L Hgb Hct RDW 17.0 H Plt Count Lymph % (Auto) 6.8 L [place] % (Auto) 13.6 H Lymph # 0.3 L Seg Neutrophils % 79.0 H PT 15.6 H INR 1.22 H D-Dimer Heparin Anti-Xa Level ABG pH ABG pO2 ABG HCO3 ABG O2 Saturation ABG Base Excess ABG Hemoglobin Oxyhemoglobin Sodium 130 L Chloride 88.9 L Carbon Dioxide 20 L BUN 41 H Creatinine 7.6 H Glucose 115 H POC Glucose Calcium Magnesium Ferritin Alkaline Phosphatase 153 H Lactate Dehydrogenase Troponin T 0.382 H* C-Reactive Protein NT-Pro-B Natriuret Pep 74120 H Total Protein Albumin 3.2 L 01/09/20 01/10/20 01/10/20 20:14 00:16 06:54 WBC 3.3 L RBC 3.00 L Hgb 9.2 L Hct 27.8 L RDW 17.2 H Plt Count Lymph % (Auto) 8.9 L [place] % (Auto) 11.5 H Lymph # 0.3 L Seg Neutrophils % 79.1 H PT INR D-Dimer Heparin Anti-Xa Level ABG pH ABG pO2 ABG HCO3 ABG O2 Saturation ABG Base Excess ABG Hemoglobin Oxyhemoglobin Sodium Chloride Carbon Dioxide BUN Creatinine Glucose POC Glucose Calcium Magnesium Ferritin Alkaline Phosphatase Lactate Dehydrogenase Troponin T 0.349 H* 0.328 H* C-Reactive Protein NT-Pro-B Natriuret Pep Total Protein Albumin 01/10/20 01/10/20 01/11/20 06:54 06:54 16:45 WBC RBC Hgb Hct RDW Plt Count Lymph % (Auto) [place] % (Auto) Lymph # Seg Neutrophils % PT INR D-Dimer Heparin Anti-Xa Level ABG pH ABG pO2 ABG HCO3 ABG O2 Saturation ABG Base Excess ABG Hemoglobin Oxyhemoglobin Sodium 133 L Chloride 90.6 L Carbon Dioxide BUN 50 H Creatinine 8.4 H Glucose 101 H POC Glucose 106 H Calcium 8.1 L Magnesium Ferritin Alkaline Phosphatase 148 H Lactate Dehydrogenase Troponin T 0.315 H* C-Reactive Protein NT-Pro-B Natriuret Pep Total Protein 5.4 L Albumin 2.7 L 01/12/20 01/13/20 01/13/20 16:01 06:11 06:11 WBC 3.1 L RBC 3.25 L Hgb 9.8 L Hct RDW 17.2 H Plt Count 136 L Lymph % (Auto) [place] % (Auto) Lymph # Seg Neutrophils % PT INR D-Dimer Heparin Anti-Xa Level ABG pH ABG pO2 ABG HCO3 ABG O2 Saturation ABG Base Excess ABG Hemoglobin Oxyhemoglobin Sodium 135 L Chloride 93.4 L Carbon Dioxide BUN 19 H Creatinine 4.5 H Glucose 120 H POC Glucose Calcium 7.8 L Magnesium 1.40 L Ferritin Alkaline Phosphatase Lactate Dehydrogenase Troponin T C-Reactive Protein NT-Pro-B Natriuret Pep Total Protein Albumin 01/16/20 01/16/20 01/16/20 08:35 11:49 14:11 WBC RBC Hgb Hct RDW Plt Count Lymph % (Auto) [place] % (Auto) Lymph # Seg Neutrophils % PT INR D-Dimer Heparin Anti-Xa Level ABG pH ABG pO2 48.4 L ABG HCO3 30.5 H ABG O2 Saturation 81.9 L ABG Base Excess 4.6 H ABG Hemoglobin 10.5 L Oxyhemoglobin 80.1 L Sodium Chloride Carbon Dioxide BUN Creatinine Glucose POC Glucose 126 H 119 H Calcium Magnesium Ferritin Alkaline Phosphatase Lactate Dehydrogenase Troponin T C-Reactive Protein NT-Pro-B Natriuret Pep Total Protein Albumin 01/16/20 01/16/20 01/16/20 15:38 15:38 15:38 WBC RBC Hgb Hct RDW Plt Count Lymph % (Auto) [place] % (Auto) Lymph # Seg Neutrophils % PT INR D-Dimer 1104.64 H Heparin Anti-Xa Level ABG pH ABG pO2 ABG HCO3 ABG O2 Saturation ABG Base Excess ABG Hemoglobin Oxyhemoglobin Sodium Chloride Carbon Dioxide BUN Creatinine Glucose POC Glucose Calcium Magnesium Ferritin > 2000.0 H Alkaline Phosphatase Lactate Dehydrogenase 690 H Troponin T C-Reactive Protein 24.10 H NT-Pro-B Natriuret Pep Total Protein Albumin 01/16/20 01/18/20 01/18/20 18:11 06:25 06:25 WBC RBC 3.15 L Hgb 9.4 L Hct 29.4 L RDW 17.5 H Plt Count 135 L Lymph % (Auto) 3.8 L [place] % (Auto) Lymph # 0.2 L Seg Neutrophils % 88.8 H PT INR D-Dimer Heparin Anti-Xa Level ABG pH ABG pO2 ABG HCO3 ABG O2 Saturation ABG Base Excess ABG Hemoglobin Oxyhemoglobin Sodium Chloride 96.8 L Carbon Dioxide BUN 26 H Creatinine 4.2 H Glucose 115 H POC Glucose 130 H Calcium 8.2 L Magnesium Ferritin Alkaline Phosphatase Lactate Dehydrogenase 537 H Troponin T C-Reactive Protein 17.10 H NT-Pro-B Natriuret Pep Total Protein Albumin 01/18/20 01/18/20 01/18/20 06:25 06:25 12:15 WBC RBC Hgb Hct RDW Plt Count Lymph % (Auto) [place] % (Auto) Lymph # Seg Neutrophils % PT INR D-Dimer 938.03 H Heparin Anti-Xa Level ABG pH ABG pO2 66.5 L ABG HCO3 30.1 H ABG O2 Saturation 93.2 L ABG Base Excess 4.6 H ABG Hemoglobin 10.0 L Oxyhemoglobin 91.3 L Sodium Chloride Carbon Dioxide BUN Creatinine Glucose POC Glucose Calcium Magnesium Ferritin 3105.0 H Alkaline Phosphatase Lactate Dehydrogenase Troponin T C-Reactive Protein NT-Pro-B Natriuret Pep Total Protein Albumin 01/20/20 01/20/20 01/20/20 07:37 07:37 07:37 WBC RBC Hgb Hct RDW Plt Count Lymph % (Auto) [place] % (Auto) Lymph # Seg Neutrophils % PT INR D-Dimer 2072.25 H Heparin Anti-Xa Level ABG pH ABG pO2 ABG HCO3 ABG O2 Saturation ABG Base Excess ABG Hemoglobin Oxyhemoglobin Sodium Chloride Carbon Dioxide BUN Creatinine Glucose POC Glucose Calcium Magnesium Ferritin 1826.0 H Alkaline Phosphatase Lactate Dehydrogenase 496 H Troponin T C-Reactive Protein 19.30 H NT-Pro-B Natriuret Pep Total Protein Albumin 01/20/20 01/21/20 01/21/20 17:30 03:59 17:35 WBC RBC Hgb Hct RDW Plt Count Lymph % (Auto) [place] % (Auto) Lymph # Seg Neutrophils % PT INR D-Dimer Heparin Anti-Xa Level ABG pH ABG pO2 61.1 L 67.4 L ABG HCO3 29.9 H 26.2 H ABG O2 Saturation 91.7 L 93.4 L ABG Base Excess 4.9 H ABG Hemoglobin 9.0 L 9.1 L Oxyhemoglobin 89.5 L 91.1 L Sodium 136 L Chloride Carbon Dioxide BUN 36 H Creatinine 4.9 H Glucose POC Glucose Calcium Magnesium Ferritin Alkaline Phosphatase Lactate Dehydrogenase Troponin T C-Reactive Protein NT-Pro-B Natriuret Pep Total Protein Albumin 01/21/20 01/22/20 01/22/20 Unknown 03:41 03:41 WBC RBC Hgb Hct RDW Plt Count Lymph % (Auto) [place] % (Auto) Lymph # Seg Neutrophils % PT INR D-Dimer Heparin Anti-Xa Level ABG pH 7.465 H ABG pO2 48.9 L ABG HCO3 26.6 H ABG O2 Saturation 85.7 L ABG Base Excess ABG Hemoglobin 10.4 L Oxyhemoglobin 83.5 L Sodium Chloride Carbon Dioxide BUN Creatinine Glucose POC Glucose Calcium Magnesium Ferritin 6071.0 H Alkaline Phosphatase Lactate Dehydrogenase 963 H Troponin T C-Reactive Protein 30.00 H NT-Pro-B Natriuret Pep Total Protein Albumin 01/22/20 01/22/20 01/22/20 03:41 07:47 11:20 WBC RBC Hgb Hct RDW Plt Count Lymph % (Auto) [place] % (Auto) Lymph # Seg Neutrophils % PT INR D-Dimer > 59086 H Heparin Anti-Xa Level ABG pH ABG pO2 66.7 L ABG HCO3 28.7 H ABG O2 Saturation 91.9 L ABG Base Excess ABG Hemoglobin 9.1 L Oxyhemoglobin 89.5 L Sodium Chloride 94.3 L Carbon Dioxide BUN 53 H Creatinine 6.5 H Glucose POC Glucose Calcium Magnesium Ferritin Alkaline Phosphatase Lactate Dehydrogenase Troponin T C-Reactive Protein NT-Pro-B Natriuret Pep Total Protein Albumin 01/22/20 01/22/20 01/23/20 11:49 Unknown 04:55 WBC 15.1 H RBC 3.05 L Hgb 8.8 L Hct 28.3 L RDW 17.8 H Plt Count 125 L Lymph % (Auto) [place] % (Auto) Lymph # Seg Neutrophils % PT INR D-Dimer Heparin Anti-Xa Level ABG pH 7.340 L ABG pO2 77.7 L 136.3 H ABG HCO3 27.6 H 28.8 H ABG O2 Saturation ABG Base Excess ABG Hemoglobin 9.3 L 10.9 L Oxyhemoglobin 94.2 L Sodium Chloride Carbon Dioxide BUN Creatinine Glucose POC Glucose Calcium Magnesium Ferritin Alkaline Phosphatase Lactate Dehydrogenase Troponin T C-Reactive Protein NT-Pro-B Natriuret Pep Total Protein Albumin 01/23/20 01/23/20 01/23/20 06:23 07:07 Unknown WBC 16.2 H RBC 3.08 L Hgb 8.9 L Hct 28.6 L RDW 17.8 H Plt Count 139 L Lymph % (Auto) [place] % (Auto) Lymph # Seg Neutrophils % PT INR D-Dimer Heparin Anti-Xa Level ABG pH ABG pO2 ABG HCO3 ABG O2 Saturation ABG Base Excess ABG Hemoglobin Oxyhemoglobin Sodium Chloride Carbon Dioxide BUN Creatinine Glucose POC Glucose 57 L 127 H Calcium Magnesium Ferritin Alkaline Phosphatase Lactate Dehydrogenase Troponin T C-Reactive Protein NT-Pro-B Natriuret Pep Total Protein Albumin 01/23/20 Unknown WBC RBC Hgb Hct RDW Plt Count Lymph % (Auto) [place] % (Auto) Lymph # Seg Neutrophils % PT INR D-Dimer Heparin Anti-Xa Level < 0.10 L ABG pH ABG pO2 ABG HCO3 ABG O2 Saturation ABG Base Excess ABG Hemoglobin Oxyhemoglobin Sodium Chloride Carbon Dioxide BUN Creatinine Glucose POC Glucose Calcium Magnesium Ferritin Alkaline Phosphatase Lactate Dehydrogenase Troponin T C-Reactive Protein NT-Pro-B Natriuret Pep Total Protein Albumin Allied health notes reviewed: nursing
[2020-01-23] MEDS: DULoxetine 30 MG CAP PO SCH (09:21)
[2020-01-23] MEDS: FAMOTIDINE 20 MG TAB PO SCH (09:21)
--- NOTE | 2020-01-23 09:43 | Progress Note ---
Assessment and Plan Assessment and plan: Suspected COVID- 19 Patient with very elevated inflammatory markers of ferritin, CRP, LDH and d- dimer. Bilateral pneumonia. Continue antibiotics per ID ARDS. Etiology secondary to above. Acute hypoxemic respiratory failure. Continue oxygen to maintain sats greater than 92% Appears stable on HFNC; wean FiO2 then flow Chest pain Stress test neg for ischemia GERD and costochondritis in differential diagnosis Volume overload s/p hemodialysis Nephrology consulted,following Acute on Chronic diastolic CHF exacerbation Secondary to volume overload End stage renal disease on dialysis Nephrology following T2DM (type 2 diabetes mellitus) Continue continue coverage Check hemoglobin A1c Hypertension Continue antihypertensives Hyponatremia Secondary to increased volume--dilutional DVT prophylaxis On heparin and GI prophylaxis 01/11 Covid 19 survey testing sent, nasal swab done 01/10 01/12 Patient has acute resp failure. may need Oxygen on dc. awaiting Covid result 01/13 Still has shortness of breath, awaiting Covid test. 01/14 Pt still dyspneic, await covid testing, Pulse ox 83% 01/16/2020. Patient remains dyspneic. Follow-up COVID testing. 01/17/2020. Patient still requiring large amounts of oxygen. Patient currently with 15 L satting at 95%. Patient with increased inflammatory markers. Follow- up chest x-ray today. 01/18/20--Patient still requiring large amounts of oxygen. Patient currently with 15 L %. Patient with increased inflammatory markers. 01/19/2020 very elevated inflammatory markers- ferritin> 2000, CRP >24, LDH> 600, d-dimer >1000 putting her at high risk for ARDS. Continue hydroxychloroquine 400 mg PO BID for 1 day then 200 mg PO BID for 4 days (total 5 days) with zinc 220 mg PO qday. Continue ceftriaxone. ContinueCOVID isolationprecautions pe r [facility] protocol. Continue serial Ferritin, LDH, D-Dimer, CRP every 48h 01/20/2020. Inflammatory markers remain elevated with ferritin 1826, LDH 496, CRP 19.3, and d-dimer 2072. Patient requiring high flow nasal cannula 40L, FiO2 80%. Pulmonary following. Continue antibiotics and Plaquenil. Continue COVID isolationprecautions per [facility] protocol. Patient has a high risk mortality and remains guarded. 01/21/2020. Continue antibiotics and Plaquenil. Continue COVID isolationprecautions per [facility] protocol. Maintain sats of 88% and greater. Still on HFNC, O2 weaned to 95% overnight. Sats documented at 98%. Pulmonary following and reports If patient progresses could give bipap a one hour trial to see if there is improvement, repeat ABG, if not would suggest elective intubation. 01/22/2020 Patient still critically ill. Yesterday 01/20 had cardiopulmonary arrest so now intubated in ICU. Prognosis guarded. 01/23/2020 still critically ill. No more fever. Continue vent management. The high probability of a clinically significant, sudden or life threatening deterioration of the [immunologic and respiratory] system(s) required my full and direct attention, intervention and personal management. The aggregate critical care time was [34] minutes. This time is in addition to time spent pe rforming reported procedures but includes the following: [x] Data Review and interpretation [x] Patient assessment and monitoring of vital signs [x] Documentation [x] Medication orders and management History Interval history: Patient initially presented with chest tightness, SOB Now diagnosed with Covid-19 infection,acute resp failure, intubated COVID19: Positive Hospitalist Physical - Physical exam Narrative exam: GEN: Intubated, sedated HEENT: Normocephalic, atraumatic, Neck: supple, No JVD Lungs: Bilateral crackles, heart;S1 and S2 reg, no murmurs, rubs or gallop Abd:soft, non tender, non distended, normal bowel sounds Ext: No edema, no clubbing, no cyanosis, Neuro: intubated, sedated - Constitutional Vitals: Temp Pulse Resp BP Pulse Ox 98.9 F 76 20 100/52 98 01/23/20 08:00 01/23/20 09:30 01/23/20 09:30 01/23/20 09:30 01/23/20 09:30 General appearance: Present: no acute distress BREEZY score - Breezy Score Age > 65: (1) Yes Aspirin use within the Past 7 Days: (1) Yes 3 or more CAD Risk Factors: (1) Yes 2 or more Angina events in past 24 hrs: (1) Yes Known CAD with more than 50% Stenosis: (0) No Elevated Cardiac Markers: (0) No ST Deviation Greater than 0.5mm: (0) No BREEZY Score: 4 Results - Labs CBC & Chem 7: 01/23/20 Unknown 01/22/20 07:47 Labs: Laboratory Last Values WBC 16.2 K/mm3 (4.5-11.0) H 01/23/20 Unknown RBC 3.08 M/mm3 (3.65-5.03) L 01/23/20 Unknown Hgb 8.9 gm/dl (10.1-14.3) L 01/23/20 Unknown Hct 28.6 % (30.3-42.9) L 01/23/20 Unknown MCV 93 fl (79-97) 01/23/20 Unknown MCH 29 pg (28-32) 01/23/20 Unknown MCHC 31 % (30-34) 01/23/20 Unknown RDW 17.8 % (13.2-15.2) H 01/23/20 Unknown Plt Count 139 K/mm3 (140-440) L 01/23/20 Unknown Lymph % (Auto) 3.8 % (13.4-35.0) L 01/18/20 06:25 [place] % (Auto) 6.5 % (0.0-7.3) 01/18/20 06:25 Eos % (Auto) 0.8 % (0.0-4.3) 01/18/20 06:25 Baso % (Auto) 0.1 % (0.0-1.8) 01/18/20 06:25 Lymph # 0.2 K/mm3 (1.2-5.4) L 01/18/20 06:25 [place] # 0.4 K/mm3 (0.0-0.8) 01/18/20 06:25 Eos # 0.0 K/mm3 (0.0-0.4) 01/18/20 06:25 Baso # 0.0 K/mm3 (0.0-0.1) 01/18/20 06:25 Seg Neutrophils % 88.8 % (40.0-70.0) H 01/18/20 06:25 Seg Neutrophils # 5.0 K/mm3 (1.8-7.7) 01/18/20 06:25 PT 15.6 Sec. (12.2-14.9) H 01/09/20 12:55 INR 1.22 (0.87-1.13) H 01/09/20 12:55 APTT 31.5 Sec. (24.2-36.6) 01/09/20 12:55 D-Dimer > 48755 ng/mlDDU (0-234) H 01/22/20 03:41 Heparin Anti-Xa Level < 0.10 U.I./ml (0.3-0.7) L 01/23/20 Unknown ABG pH 7.340 pH Units (7.350-7.450) L 01/23/20 04:55 ABG pCO2 54.7 mm Hg 01/23/20 04:55 ABG pO2 136.3 mm Hg (80.0-90.0) H 01/23/20 04:55 ABG HCO3 28.8 mmol/L (20.0-26.0) H 01/23/20 04:55 ABG O2 Saturation 98.5 % (95.0-99.0) 01/23/20 04:55 ABG O2 Content 15.0 (0.0-44) 01/23/20 04:55 ABG Base Excess 2.2 mmol/L (-2.0-3.0) 01/23/20 04:55 ABG Hemoglobin 10.9 gm/dl (12.0-16.0) L 01/23/20 04:55 ABG Carboxyhemoglobin 1.7 % (0.0-5.0) 01/23/20 04:55 ABG Methemoglobin 0.6 % (0.0-1.5) 01/23/20 04:55 Oxyhemoglobin 96.2 % (95.0-99.0) 01/23/20 04:55 FiO2 80 % 01/23/20 04:55 Sodium 139 mmol/L (137-145) 01/22/20 07:47 Potassium 4.8 mmol/L (3.6-5.0) 01/22/20 07:47 Chloride 94.3 mmol/L (98-107) L 01/22/20 07:47 Carbon Dioxide 24 mmol/L (22-30) 01/22/20 07:47 Anion Gap 26 mmol/L 01/22/20 07:47 BUN 53 mg/dL (7-17) H 01/22/20 07:47 Creatinine 6.5 mg/dL (0.7-1.2) H 01/22/20 07:47 Estimated GFR 8 ml/min 01/22/20 07:47 BUN/Creatinine Ratio 8 % 01/22/20 07:47 Glucose 72 mg/dL (65-100) 01/22/20 07:47 POC Glucose 127 (70-105) H 01/23/20 07:07 Hemoglobin A1c 5.0 % (4-6) 01/10/20 06:54 Calcium 9.0 mg/dL (8.4-10.2) 01/22/20 07:47 Phosphorus 3.30 mg/dL (2.5-4.5) 01/12/20 16:01 Magnesium 2.00 mg/dL (1.7-2.3) 01/13/20 06:11 Ferritin 6071.0 ng/mL (13.0-400.0) H 01/22/20 03:41 Total Bilirubin 0.30 mg/dL (0.1-1.2) 01/10/20 06:54 AST 30 units/L (5-40) 01/10/20 06:54 ALT 24 units/L (7-56) 01/10/20 06:54 Alkaline Phosphatase 148 units/L (35-129) H 01/10/20 06:54 Lactate Dehydrogenase 963 units/L (91-180) H 01/22/20 03:41 Troponin T 0.315 ng/mL (0.00-0.029) H* 01/10/20 06:54 C-Reactive Protein 30.00 mg/dL (0.00-1.30) H 01/22/20 03:41 NT-Pro-B Natriuret Pep 66275 pg/mL (0-900) H 01/09/20 12:55 Total Protein 5.4 g/dL (6.3-8.2) L 01/10/20 06:54 Albumin 2.7 g/dL (3.9-5) L 01/10/20 06:54 Albumin/Globulin Ratio 1.0 % 01/10/20 06:54 Triglycerides 82 mg/dL (2-149) 01/09/20 12:55 Cholesterol 123 mg/dL (50-199) 01/09/20 12:55 LDL Cholesterol Direct 66 mg/dL (50-130) 01/09/20 12:55 HDL Cholesterol 47 mg/dL (40-59) 01/09/20 12:55 Cholesterol/HDL Ratio 2.61 % 01/09/20 12:55 Hepatitis A IgM Ab Non-reactive (NonReactive) 01/21/20 23:40 Hep Bs Antigen Non-reactive (Negative) 01/21/20 23:40 Hep B Core IgM Ab Non-reactive (NonReactive) 01/21/20 23:40 Hepatitis C Antibody Non-reactive (NonReactive) 01/21/20 23:40 Miscellaneous Test See scanned result 01/11/20 Unknown Miscellaneous Test See scanned result 01/11/20 Unknown Microbiology: Microbiology 01/21/20 17:35 Tracheal Aspirate Sputum Culture - Preliminary Pleitez/IV: Voiding Method Diaper IV Catheter Type [Left Chest] Infusaport IV Catheter Type [Right Peripheral IV External Jugular] IV Catheter Type [Left INT / Saline Lock External Jugular] Active Medications - Current Medications Current Medications: Generic Name Dose Route Start Last Admin Trade Name Freq PRN Reason Stop Dose Admin Acetaminophen 650 mg 01/09/20 16:33 01/12/20 18:23 Tylenol PO 650 mg Q4H PRN Administration Pain MILD(1-3)/Fever >100.5/MEANS Amlodipine Besylate 10 mg 01/09/20 17:00 01/22/20 10:27 Amlodipine PO 10 mg DAILY PHILLY Administration Atorvastatin Calcium 40 mg 01/09/20 22:00 01/22/20 21:39 Lipitor PO 40 mg QHS PHILLY Administration Cyclobenzaprine HCl 5 mg 01/09/20 16:27 01/10/20 23:17 Flexeril PO 5 mg QHS PRN Administration Muscle Spasm Dextrose 50 ml 01/23/20 07:26 D50w (25gm) Syringe IV Q30MIN PRN BLOOD GLUCOSE < 70 Diphenhydramine HCl 25 mg 01/09/20 16:15 01/12/20 00:50 Benadryl PO 25 mg Q8HR PRN Administration Itching Duloxetine HCl 30 mg 01/09/20 17:00 01/23/20 09:21 Cymbalta PO 30 mg QDAY PHILLY Administration Enoxaparin Sodium 80 mg 01/23/20 12:00 Enoxaparin SUB-Q Q24HR [facility] Famotidine 20 mg 01/09/20 22:00 01/23/20 09:21 Pepcid PO 20 mg DAILY PHILLY Administration Cefepime HCl 1 gm in 100 mls @ 200 mls/hr 01/21/20 18:00 01/22/20 17:49 Cefepime/Ns 1 Gm/100 Ml IV 01/25/20 18:29 200 mls/hr QPM PHILLY Administration Norepinephrine 4 mg in 250 mls @ 7.5 mls/hr 01/21/20 18:00 01/23/20 00:27 Levophed Drip 4 Mg/Ns 250 Ml IV 0 mcg/min TITR PHILLY 0 mls/hr Titration Protocol 2 MCG/MIN Propofol 1,000 mg in 100 mls @ 2.265 mls/hr 01/22/20 09:00 01/23/20 09:29 Diprivan 10 Mg/Ml IV 25 mcg/kg/min TITR PHILLY 11.325 mls/hr Administration Protocol 5 MCG/KG/MIN Sodium Chloride 100 mls @ 999 mls/hr 01/22/20 11:35 Nacl 0.9% IV SILVERIO PRN Hypotension Metoprolol Tartrate 50 mg 01/20/20 22:00 01/22/20 21:40 Metoprolol PO 50 mg BID PHILLY Administration Ondansetron HCl 4 mg 01/09/20 16:33 01/20/20 10:19 Zofran IV 4 mg Q8H PRN Administration Nausea And Vomiting Sodium Chloride 10 ml 01/09/20 22:00 01/22/20 21:40 Sodium Chloride Flush Syringe 10 Ml IV 10 ml BID HPILLY Administration Sodium Chloride 10 ml 01/09/20 16:33 Sodium Chloride Flush Syringe 10 Ml IV PRN PRN LINE FLUSH Tramadol HCl 50 mg 01/16/20 13:07 01/20/20 10:19 Ultram PO 50 mg Q12HR PRN Administration Pain, Moderate (4-6) Valsartan 80 mg 01/10/20 10:00 01/22/20 11:11 Diovan PO Not Given DAILY PHILLY Nutrition/Malnutrition Assess - Dietary Evaluation Nutrition/Malnutrition Findings: Nutrition Notes Start: 01/17/20 13:49 Freq: Status: Active Protocol: Document 01/21/20 15:17 KAYLA (Rec: 01/21/20 15:25 KAYLA SRW- [email or web address]) Nutrition Notes Initial or Follow up Reassessment Current Diagnosis CKD (stage V CKD),Diabetes, Hypertension,Heart Failure, Respiratory Failure Other Pertinent Diagnosis Bilat pneu, COVID-19 (+), ARDS , volume overload, Chest pain Current Diet Renal + Nepro BID Labs/Tests reviewed Pertinent Medications reviewed Height 5 ft 6 in Weight 75.5 kg [place] Body Weight (kg) 59.09 BMI 26.9 Subjective/Other Information Per pulmonary, pt with poor prognosis. PO intake very poor (<25% of meals). Pt on high flow O2 and on non- rebreather mask. Burn Absent Trauma Absent #1 Nutrition Diagnosis Malnutrition Diagnosis Progress(for reassessment Continues documentation) Is patient on ventilator? No Is Patient Ambulatory and/or Out of Bed No REE-([facility]-confined to bed) [phone] Calculation Used for Recommendations [facility] Additional Notes Protein: 91g (>1.2g/kg) Fluid: per MD Nutrition Intervention Change Diet Order: Continue current diet as tolerated Add Supplement/Snack (indicate name/kcal Nepro BID /protein ) Provides kCal: 850 Provides Protein (gm) 38 Goal #1 PO tolerance Goal #2 Meet at least 75% of energy and protein needs via PO intake Follow-Up By: 01/23/20 Additional Comments F/U: POC, PO tolerance/intakes , respiratory status
--- NOTE | 2020-01-23 09:44 | Progress Note ---
Assessment and Plan - Patient Problems (1) ESRD needing dialysis Current Visit: No Status: Acute Plan to address problem: Patient on MWF schedule. s/p isolated UF session yesterday. (2) Volume overload Current Visit: Yes Status: Acute Qualifiers: Plan to address problem: Goal is to optimize volume status with adequate fluid removal with HD. Evaluate daily for need of extra isolated UF sessions. Extra isolated UF session was done yesterday. (3) Pneumonia due to COVID-19 virus Current Visit: Yes Status: Acute Plan to address problem: Management per ID recommendations. (4) Hyponatremia Current Visit: No Status: Acute Plan to address problem: Possibly in the setting of fluid overload. improved at this time. (5) Hypertensive chronic kidney disease with stage 5 chronic kidney disease or end stage renal disease Current Visit: No Status: Chronic Plan to address problem: Monitor on current regimen. (6) Anemia in CKD (chronic kidney disease) Current Visit: Yes Status: Acute Qualifiers: Chronic kidney disease stage: on chronic dialysis Qualified Code(s): N18.6 - End stage renal disease; D63.1 - Anemia in chronic kidney disease; Z99.2 - Dependence on renal dialysis Plan to address problem: CLARITA therapy with HD. (7) Secondary hyperparathyroidism (of renal origin) Current Visit: Yes Status: Chronic Plan to address problem: Continue on current outpatient phos binder regimen. Subjective Date of service: 01/23/20 Principal diagnosis: Pneumonia Interval history: Patient had isolated UF session yesterday and tolerated 3L UF. Patient is receiving HD again today, with goal UF 3L as tolerated. Labs reviewed, Fi02 requirements have decreased to 70%. COVID19: Positive Objective - Vital Signs Vital signs: Vital Signs - 12hr 01/22/20 01/22/20 01/22/20 21:50 22:00 22:10 Temperature Pulse Rate 77 75 74 Pulse Rate [ Right Radial] Respiratory 17 16 15 Rate Blood Pressure 113/68 123/65 123/65 O2 Sat by Pulse 100 100 100 Oximetry 01/22/20 01/22/20 01/22/20 22:20 22:30 22:40 Temperature Pulse Rate 73 73 73 Pulse Rate [ Right Radial] Respiratory 15 23 16 Rate Blood Pressure 113/62 122/65 122/65 O2 Sat by Pulse 100 100 100 Oximetry 01/22/20 01/22/20 01/22/20 22:50 23:00 23:10 Temperature Pulse Rate 73 74 74 Pulse Rate [ Right Radial] Respiratory 15 20 15 Rate Blood Pressure 112/61 130/67 130/67 O2 Sat by Pulse 100 100 100 Oximetry 01/22/20 01/22/20 01/22/20 23:20 23:30 23:40 Temperature Pulse Rate 73 74 74 Pulse Rate [ Right Radial] Respiratory 15 14 15 Rate Blood Pressure 123/60 117/63 117/63 O2 Sat by Pulse 100 100 100 Oximetry 01/22/20 01/22/20 01/22/20 23:48 23:50 23:55 Temperature Pulse Rate 73 75 75 Pulse Rate [ Right Radial] Respiratory 16 19 Rate Blood Pressure 109/59 109/59 O2 Sat by Pulse 100 100 100 Oximetry 01/23/20 01/23/20 01/23/20 00:00 00:10 00:20 Temperature Pulse Rate 75 77 77 Pulse Rate [ 76 Right Radial] Respiratory 18 20 20 Rate Blood Pressure 127/67 127/67 137/68 O2 Sat by Pulse 100 100 100 Oximetry 01/23/20 01/23/20 01/23/20 00:30 00:40 00:50 Temperature Pulse Rate 74 73 72 Pulse Rate [ Right Radial] Respiratory 10 L 19 21 Rate Blood Pressure 111/58 111/58 107/52 O2 Sat by Pulse 100 100 100 Oximetry 01/23/20 01/23/20 01/23/20 01:00 01:10 01:20 Temperature Pulse Rate 71 71 71 Pulse Rate [ Right Radial] Respiratory 14 18 17 Rate Blood Pressure 100/48 100/48 102/51 O2 Sat by Pulse 100 100 100 Oximetry 01/23/20 01/23/20 01/23/20 01:30 01:40 01:50 Temperature Pulse Rate 71 72 73 Pulse Rate [ Right Radial] Respiratory 15 18 22 Rate Blood Pressure 105/52 100/48 103/52 O2 Sat by Pulse 99 100 100 Oximetry 01/23/20 01/23/20 01/23/20 02:00 02:10 02:20 Temperature Pulse Rate 72 72 73 Pulse Rate [ Right Radial] Respiratory 19 18 18 Rate Blood Pressure 113/53 113/53 111/52 O2 Sat by Pulse 99 100 100 Oximetry 01/23/20 01/23/20 01/23/20 02:30 02:40 02:50 Temperature Pulse Rate 72 72 72 Pulse Rate [ Right Radial] Respiratory 18 16 16 Rate Blood Pressure 104/56 104/56 107/56 O2 Sat by Pulse 100 100 100 Oximetry 01/23/20 01/23/20 01/23/20 03:00 03:10 03:20 Temperature Pulse Rate 72 73 74 Pulse Rate [ Right Radial] Respiratory 17 16 17 Rate Blood Pressure 109/53 109/53 110/55 O2 Sat by Pulse 100 100 100 Oximetry 01/23/20 01/23/20 01/23/20 03:30 03:40 03:50 Temperature Pulse Rate 74 75 75 Pulse Rate [ Right Radial] Respiratory 18 19 17 Rate Blood Pressure 118/58 118/58 115/56 O2 Sat by Pulse 99 100 100 Oximetry 01/23/20 01/23/20 01/23/20 04:00 04:10 04:20 Temperature Pulse Rate 75 75 75 Pulse Rate [ 76 Right Radial] Respiratory 17 17 18 Rate Blood Pressure 125/58 125/58 112/55 O2 Sat by Pulse 99 100 100 Oximetry 01/23/20 01/23/20 01/23/20 04:30 04:40 04:50 Temperature Pulse Rate 76 77 75 Pulse Rate [ Right Radial] Respiratory 18 26 H 17 Rate Blood Pressure 112/55 119/59 O2 Sat by Pulse 100 100 100 Oximetry 01/23/20 01/23/20 01/23/20 04:56 05:00 05:10 Temperature Pulse Rate 74 74 73 Pulse Rate [ Right Radial] Respiratory 16 17 Rate Blood Pressure 119/59 92/49 O2 Sat by Pulse 100 100 100 Oximetry 01/23/20 01/23/20 01/23/20 05:20 05:30 05:40 Temperature Pulse Rate 72 71 71 Pulse Rate [ Right Radial] Respiratory 18 16 19 Rate Blood Pressure 91/50 90/50 90/50 O2 Sat by Pulse 100 100 100 Oximetry 01/23/20 01/23/20 01/23/20 05:50 06:00 06:10 Temperature Pulse Rate 72 71 72 Pulse Rate [ Right Radial] Respiratory 14 14 15 Rate Blood Pressure 98/54 99/51 99/51 O2 Sat by Pulse 100 100 100 Oximetry 01/23/20 01/23/20 01/23/20 06:20 06:30 06:40 Temperature Pulse Rate 72 73 74 Pulse Rate [ Right Radial] Respiratory 16 18 16 Rate Blood Pressure 101/54 101/55 101/55 O2 Sat by Pulse 100 100 100 Oximetry 01/23/20 01/23/20 01/23/20 06:50 07:00 07:10 Temperature Pulse Rate 73 72 71 Pulse Rate [ Right Radial] Respiratory 18 15 17 Rate Blood Pressure 98/52 97/50 97/50 O2 Sat by Pulse 100 100 100 Oximetry 01/23/20 01/23/20 01/23/20 07:20 07:30 07:40 Temperature Pulse Rate 72 72 73 Pulse Rate [ Right Radial] Respiratory 15 14 13 Rate Blood Pressure 98/52 103/56 103/56 O2 Sat by Pulse 100 100 100 Oximetry 01/23/20 01/23/20 01/23/20 07:50 08:00 08:10 Temperature 98.9 F Pulse Rate 75 76 79 Pulse Rate [ Right Radial] Respiratory 15 16 16 Rate Blood Pressure 128/65 132/67 132/67 O2 Sat by Pulse 100 99 100 Oximetry 01/23/20 01/23/20 01/23/20 08:20 08:30 08:40 Temperature Pulse Rate 80 80 80 Pulse Rate [ Right Radial] Respiratory 18 16 17 Rate Blood Pressure 137/69 137/67 137/67 O2 Sat by Pulse 100 99 100 Oximetry 01/23/20 01/23/20 01/23/20 08:50 09:00 09:04 Temperature Pulse Rate 80 82 82 Pulse Rate [ Right Radial] Respiratory 18 16 Rate Blood Pressure 134/65 142/66 142/66 O2 Sat by Pulse 100 98 100 Oximetry 01/23/20 01/23/20 01/23/20 09:10 09:20 09:30 Temperature Pulse Rate 83 82 76 Pulse Rate [ Right Radial] Respiratory 18 19 20 Rate Blood Pressure 142/66 141/66 100/52 O2 Sat by Pulse 100 100 98 Oximetry - General Appearance General appearance: chronically ill, intubated, frail EENT: ATNC Neck: no JVD Respiratory: Present: Decreased Breath Sounds Cardiology: regular Gastrointestinal: normal Integumentary: no rash Musculoskeletal: deferred - Lab 01/23/20 Unknown 01/22/20 07:47 Most recent lab results ABG pH 7.340 pH Units (7.350-7.450) L 01/23/20 04:55 ABG pCO2 54.7 mm Hg 01/23/20 04:55 ABG pO2 136.3 mm Hg (80.0-90.0) H 01/23/20 04:55 ABG HCO3 28.8 mmol/L (20.0-26.0) H 01/23/20 04:55 ABG O2 Saturation 98.5 % (95.0-99.0) 01/23/20 04:55 Calcium 9.0 mg/dL (8.4-10.2) 01/22/20 07:47 Phosphorus 3.30 mg/dL (2.5-4.5) 01/12/20 16:01 Magnesium 2.00 mg/dL (1.7-2.3) 01/13/20 06:11 - Allied health notes Allied health notes reviewed: nursing Medications & Allergies - Medications Allergies/Adverse Reactions: Allergies cheese Allergy (Mild, Verified 12/20/19 10:19) Itching iodine Allergy (Mild, Verified 12/20/19 10:16) Anaphylaxis clonidine Allergy (Verified 12/19/19 04:13) Anaphylaxis shellfish derived Adverse Reaction (Verified 12/19/19 04:13) Angioedema Home Medications: Home Medications Medication Instructions Recorded Confirmed Last Taken Type Atorvastatin [Lipitor] 40 mg PO DAILY 11/06/19 01/13/20 01/02/20 10:00 History Acetaminophen [Acetaminophen 8 650 mg PO Q8H PRN #30 tablet.er 11/21/19 01/13/20 01/03/20 22:00 Rx Hour] Cyclobenzaprine HCl [Flexeril 5 MG 5 mg PO QHS PRN #20 tab 11/21/19 01/13/20 01/01/20 22:00 Rx TAB] HYDROcodone/APAP 5-325 [[place] 1 each PO Q6HR PRN #18 tablet 12/13/19 01/13/20 01/01/20 22:00 Rx 5-325 mg TAB] amLODIPine 10 mg PO DAILY 90 Days #90 tab 12/18/19 01/13/20 01/01/20 10:00 Rx Ibuprofen 800 mg PO TID 12/19/19 01/13/20 01/02/20 22:00 History Magnesium Oxide [Mag-Ox] 400 mg PO QDAY 12/19/19 01/13/20 01/03/20 10:00 History diphenhydrAMINE [Benadryl CAP] 25 mg PO Q8HR PRN 12/19/19 01/13/20 01/03/20 21:00 History labetaloL [Labetalol 100mg TAB] 100 mg PO Q8H #90 tablet 12/21/19 01/13/20 01/02/20 10:00 Rx traMADoL [Ultram 50 MG tab] 50 mg PO Q6HR PRN #20 tablet 12/29/19 01/13/20 12/31/19 10:00 Rx DULoxetine [Cymbalta] 30 mg PO QDAY #30 capsule 01/04/20 01/13/20 Unknown Rx Valsartan [Diovan] 80 mg PO DAILY #30 tablet 01/04/20 01/13/20 Unknown Rx Active Medications: Generic Name Dose Route Start Last Admin Trade Name Freq PRN Reason Stop Dose Admin Acetaminophen 650 mg 01/09/20 16:33 01/12/20 18:23 Tylenol PO 650 mg Q4H PRN Administration Pain MILD(1-3)/Fever >100.5/MEANS Amlodipine Besylate 10 mg 01/09/20 17:00 01/22/20 10:27 Amlodipine PO 10 mg DAILY PHILLY Administration Atorvastatin Calcium 40 mg 01/09/20 22:00 01/22/20 21:39 Lipitor PO 40 mg QHS PHILLY Administration Cyclobenzaprine HCl 5 mg 01/09/20 16:27 01/10/20 23:17 Flexeril PO 5 mg QHS PRN Administration Muscle Spasm Dextrose 50 ml 01/23/20 07:26 D50w (25gm) Syringe IV Q30MIN PRN BLOOD GLUCOSE < 70 Diphenhydramine HCl 25 mg 01/09/20 16:15 01/12/20 00:50 Benadryl PO 25 mg Q8HR PRN Administration Itching Duloxetine HCl 30 mg 01/09/20 17:00 01/23/20 09:21 Cymbalta PO 30 mg QDAY PHILLY Administration Enoxaparin Sodium 80 mg 01/23/20 12:00 Enoxaparin SUB-Q Q24HR PHILLY Famotidine 20 mg 01/09/20 22:00 01/23/20 09:21 Pepcid PO 20 mg DAILY PHILYL Administration Cefepime HCl 1 gm in 100 mls @ 200 mls/hr 01/21/20 18:00 01/22/20 17:49 Cefepime/Ns 1 Gm/100 Ml IV 01/25/20 18:29 200 mls/hr QPM PHILLY Administration Norepinephrine 4 mg in 250 mls @ 7.5 mls/hr 01/21/20 18:00 01/23/20 00:27 Levophed Drip 4 Mg/Ns 250 Ml IV 0 mcg/min TITR PHILLY 0 mls/hr Titration Protocol 2 MCG/MIN Propofol 1,000 mg in 100 mls @ 2.265 mls/hr 01/22/20 09:00 01/23/20 09:29 Diprivan 10 Mg/Ml IV 25 mcg/kg/min TITR PHILLY 11.325 mls/hr Administration Protocol 5 MCG/KG/MIN Sodium Chloride 100 mls @ 999 mls/hr 01/22/20 11:35 Nacl 0.9% IV SILVERIO PRN Hypotension Metoprolol Tartrate 50 mg 01/20/20 22:00 01/22/20 21:40 Metoprolol PO 50 mg BID PHILLY Administration Ondansetron HCl 4 mg 01/09/20 16:33 01/20/20 10:19 Zofran IV 4 mg Q8H PRN Administration Nausea And Vomiting Sodium Chloride 10 ml 01/09/20 22:00 01/22/20 21:40 Sodium Chloride Flush Syringe 10 Ml IV 10 ml BID PHILLY Administration Sodium Chloride 10 ml 01/09/20 16:33 Sodium Chloride Flush Syringe 10 Ml IV PRN PRN LINE FLUSH Tramadol HCl 50 mg 01/16/20 13:07 01/20/20 10:19 Ultram PO 50 mg Q12HR PRN Administration Pain, Moderate (4-6) Valsartan 80 mg 01/10/20 10:00 01/22/20 11:11 Diovan PO Not Given DAILY PHILLY
[2020-01-23] MEDS: METOPROLOL TARTRATE 50 MG TAB PO SCH ×3 (10:27→21:41)
[2020-01-23] MEDS: VALSARTAN 40 MG TAB PO SCH (10:28)
[2020-01-23] MEDS: amLODIPine 10 MG TAB PO SCH (10:28)
[2020-01-23] MEDS: ENOXAPARIN 80 MG/0.8 ML INJ SUB-Q SCH (13:41)
[2020-01-23] MEDS ORDERED: SODIUM BICARBONATE 325 MG TAB FEEDTUBE PRN (14:28)
[2020-01-23] MEDS ORDERED: SIMPLE SYRUP 15 ML FEEDTUBE PRN ×2 (14:28)
[2020-01-23] MEDS ORDERED: LIPASE 10,500/PROTEASE 25,000/AMYLASE 43,750 (UNITS) DR CAP FEEDTUBE PRN (14:28)
--- NOTE | 2020-01-23 14:35 | Progress Note ---
Assessment and Plan Cultures: Blood culture 01/14/2020 no growth to date A/P: #Fever: resolved. likely due to severe COVID pneumonia. #Severe COVID pneumonia: very elevated inflammatory markers- ferritin> 2000, CRP >24, LDH> 600, d-dimer >1000 putting her at high risk for ARDS. Markers continue to worsen, DDimer >10,000 #Acute resp failure: was on Nonrebreathing and HFO2 worsening, s/p intubation, fO2 70 p17 ([id number] on fiO2 80) #ESRD on HD #Thrombocytopenia: monitor Recs: Start atorvastatin S/p ivermectin x 1 on 01/21/2020 S/p hydroxychloroquine with zinc 5 of 5 On steroid trial On therapeutic lovenox dose -Ddimer >10,000 Continue cefepime 3 of 5 Obtain serial Ferritin, LDH, D-Dimer, CRP every 48h High risk mortality. Discussed with Dr Aiken and pharm Angela Bales MD Infectious Diseases [employer] [facility] [place] [facility] ([facility]) M [phone] Subjective Date of service: 01/23/20 Principal diagnosis: Pneumonia Interval history: Intubated fiO2 70, p14 no fever no acute changes overnight PUI?: Yes COVID19: Positive Objective - Exam Narrative Exam: Gen: intubated sedated Head, Ears, Nose: Normocephalic, atraumatic. Oral: Limited Cardiovascular: Limited evaluation due to PPE shortage Respiratory: steph crackles GI: Limited evaluation due to PPE shortage Musculoskeletal: Limited evaluation due to PPE shortage Neurological: sedated - Constitutional Vitals: Vital Signs Temp Pulse Resp BP Pulse Ox 98.9 F 63 18 119/68 99 01/23/20 14:21 01/23/20 14:21 01/23/20 14:21 01/23/20 14:21 01/23/20 12:17 Temperature -Last 24 Hours Temperature 98.9 F Temperature 98.9 F Temperature 98.9 F Temperature 98.1 F Temperature 98.9 F Temperature 98.9 F - Labs CBC & Chem 7: 01/23/20 Unknown 01/22/20 07:47 Labs: Abnormal lab results 01/22/20 01/23/20 01/23/20 Range/Units 11:49 04:55 06:23 WBC 15.1 H (4.5-11.0) K/mm3 RBC 3.05 L (3.65-5.03) M/mm3 Hgb 8.8 L (10.1-14.3) gm/dl Hct 28.3 L (30.3-42.9) % RDW 17.8 H (13.2-15.2) % Plt Count 125 L (140-440) K/mm3 Heparin Anti-Xa Level (0.3-0.7) U.I./ml ABG pH 7.340 L (7.350-7.450) pH Units ABG pO2 136.3 H (80.0-90.0) mm Hg ABG HCO3 28.8 H (20.0-26.0) mmol/L ABG Hemoglobin 10.9 L (12.0-16.0) gm/dl POC Glucose 57 L (70-105) 01/23/20 01/23/20 01/23/20 Range/Units 07:07 12:23 Unknown WBC 16.2 H (4.5-11.0) K/mm3 RBC 3.08 L (3.65-5.03) M/mm3 Hgb 8.9 L (10.1-14.3) gm/dl Hct 28.6 L (30.3-42.9) % RDW 17.8 H (13.2-15.2) % Plt Count 139 L (140-440) K/mm3 Heparin Anti-Xa Level (0.3-0.7) U.I./ml ABG pH (7.350-7.450) pH Units ABG pO2 (80.0-90.0) mm Hg ABG HCO3 (20.0-26.0) mmol/L ABG Hemoglobin (12.0-16.0) gm/dl POC Glucose 127 H 131 H (70-105) 01/23/20 Range/Units Unknown WBC (4.5-11.0) K/mm3 RBC (3.65-5.03) M/mm3 Hgb (10.1-14.3) gm/dl Hct (30.3-42.9) % RDW (13.2-15.2) % Plt Count (140-440) K/mm3 Heparin Anti-Xa Level < 0.10 L (0.3-0.7) U.I./ml ABG pH (7.350-7.450) pH Units ABG pO2 (80.0-90.0) mm Hg ABG HCO3 (20.0-26.0) mmol/L ABG Hemoglobin (12.0-16.0) gm/dl POC Glucose (70-105)
[2020-01-23] MEDS ORDERED: fentaNYL 100 MCG/2 ML INJ IV PRN (15:36)
[2020-01-23] MEDS ORDERED: LORazepam 2 MG/ML VIAL IV PRN (15:36)
[2020-01-23] MEDS: fentaNYL DRIP Premix 2,000 MCG/100 ML BAG IV SCH (15:59)
[2020-01-23] MEDS ORDERED: LORazepam 100 MG in SODIUM CHLORIDE 0.9% 50 ML, EMPTY BAG 0 ML IV SCH (16:00)
[2020-01-23] MEDS: CEFEPIME/NS 1 GM/100 ML 1 GM/100 ML BAG IV SCH (18:37)
[2020-01-23] MEDS: NORepinephrine/NS 4 MG-250 ML 4 MG/250 ML BAG IV SCH (20:36)
[2020-01-24] MEDS: fentaNYL DRIP Premix 2,000 MCG/100 ML BAG IV SCH (01:31)
[2020-01-24 04:57] LABS: ABG Base Excess 2.8 mmol/L (-2.0-3.0); ABG HCO3 32.2 mmol/L (20.0-26.0); ABG Methemoglobin 0.5 % (0.0-1.5); ABG Oxygen Saturation 90.4 % (95.0-99.0); ABG PCO2 86.7 mm Hg; ABG PO2 70.8 mm Hg (80.0-90.0)
[2020-01-24 05:03] LABS: ABG PH 7.188 pH Units (7.350-7.450)
[2020-01-24 05:30] LABS: ABG Base Excess 2.5 mmol/L (-2.0-3.0); ABG HCO3 31.5 mmol/L (20.0-26.0); ABG Methemoglobin 0.7 % (0.0-1.5); ABG Oxygen Saturation 91.8 % (95.0-99.0); ABG PH 7.214 pH Units (7.350-7.450); ABG PO2 71.7 mm Hg (80.0-90.0)
[2020-01-24] MEDS: DEXTROSE 50% IN WATER (25GM) 50 ML SYRINGE IV PRN ×3 (05:50→18:29)
[2020-01-24] MEDS: NORepinephrine/NS 4 MG-250 ML 4 MG/250 ML BAG IV SCH ×2 (06:33→17:54)
[2020-01-24 06:54] LABS: C-Reactive Protein 29.8 mg/dL (0.00-1.30)
[2020-01-24] MEDS ORDERED: DEXTROSE 50% IN WATER (25GM) 50 ML SYRINGE IV PRN (08:58)
[2020-01-24] MEDS: DULoxetine 30 MG CAP PO SCH (09:07)
[2020-01-24] MEDS: FAMOTIDINE 20 MG TAB PO SCH (09:07)
[2020-01-24] MEDS: amLODIPine 10 MG TAB PO SCH (09:08)
[2020-01-24] MEDS: ENOXAPARIN 80 MG/0.8 ML INJ SUB-Q SCH (09:08)
[2020-01-24] MEDS: VALSARTAN 40 MG TAB PO SCH (09:09)
[2020-01-24] MEDS: METOPROLOL TARTRATE 50 MG TAB PO SCH (09:09)
--- NOTE | 2020-01-24 09:17 | Progress Note ---
Assessment and Plan 64 y/o female with COVID positive, viral pneumonia with some pulmonary vascular congestion superimposed. 1. Continue to wean FiO2 for sats >88%. Now down to 50, PEEP at 14. No repeat gases during the day needed unless clinical change or decompensation. 2. HD per renal. UF is helping, if willing to do again today would not be opposed. Can given more pressor support for BP if needed. 3. Changed back to prophylactic dosing for VTE as not confirmed the presence of VTE 4. Overall prognosis is guarded to poor, especially with prior history of ESRD on HD. Continue supportive care. Markers are better today. CCT 31 minutes. Subjective Date of service: 01/24/20 Principal diagnosis: Pneumonia Interval history: No acute events. Remains heavily sedated and on high vent support. Able to wean FiO2 down to 50% this am. Still at PEEP of 14. Had isolated UF per notes on yesterday and tolerated well. PUI?: Yes COVID19: Positive Objective Vital Signs - 12hr 01/23/20 01/23/20 01/23/20 21:15 21:30 21:41 Pulse Rate 84 85 85 Respiratory 21 15 Rate Blood Pressure 104/54 103/55 103/55 O2 Sat by Pulse 95 95 Oximetry 01/23/20 01/23/20 01/23/20 21:45 22:00 22:15 Pulse Rate 86 84 85 Respiratory 15 12 18 Rate Blood Pressure 106/56 109/56 106/55 O2 Sat by Pulse 95 95 94 Oximetry 01/23/20 01/23/20 01/23/20 22:30 22:45 23:00 Pulse Rate 85 84 84 Respiratory 11 L 9 L 19 Rate Blood Pressure 103/54 102/56 103/55 O2 Sat by Pulse 95 95 95 Oximetry 01/23/20 01/23/20 01/23/20 23:15 23:30 23:45 Pulse Rate 84 84 84 Respiratory 12 19 12 Rate Blood Pressure 105/55 104/54 103/54 O2 Sat by Pulse 95 95 94 Oximetry 01/23/20 01/24/20 01/24/20 23:51 00:00 00:15 Pulse Rate 85 84 84 Respiratory 16 17 13 Rate Blood Pressure 103/54 99/52 104/55 O2 Sat by Pulse 95 92 91 Oximetry 01/24/20 01/24/20 01/24/20 00:30 00:45 01:00 Pulse Rate 85 83 83 Respiratory 20 20 21 Rate Blood Pressure 103/54 101/52 99/53 O2 Sat by Pulse 96 91 91 Oximetry 01/24/20 01/24/20 01/24/20 01:15 01:30 01:45 Pulse Rate 83 83 82 Respiratory 17 20 21 Rate Blood Pressure 97/52 102/55 100/52 O2 Sat by Pulse 91 91 91 Oximetry 01/24/20 01/24/20 01/24/20 02:00 02:15 02:30 Pulse Rate 83 83 83 Respiratory 19 11 L 20 Rate Blood Pressure 100/54 101/53 101/51 O2 Sat by Pulse 91 91 91 Oximetry 01/24/20 01/24/20 01/24/20 02:45 03:00 03:15 Pulse Rate 84 85 85 Respiratory 18 15 20 Rate Blood Pressure 106/57 106/56 104/56 O2 Sat by Pulse 93 93 93 Oximetry 01/24/20 01/24/20 01/24/20 03:30 03:45 04:00 Pulse Rate 85 86 87 Respiratory 17 16 13 Rate Blood Pressure 114/59 110/58 115/60 O2 Sat by Pulse 93 92 92 Oximetry 01/24/20 01/24/20 01/24/20 04:15 04:30 04:45 Pulse Rate 87 82 84 Respiratory 13 13 13 Rate Blood Pressure 114/60 114/60 117/56 O2 Sat by Pulse 94 92 91 Oximetry 01/24/20 01/24/20 01/24/20 04:58 05:00 05:15 Pulse Rate 86 86 86 Respiratory 16 15 Rate Blood Pressure 117/56 121/61 123/62 O2 Sat by Pulse 94 93 95 Oximetry 01/24/20 01/24/20 01/24/20 05:30 05:45 06:00 Pulse Rate 87 87 88 Respiratory 12 14 22 Rate Blood Pressure 125/62 128/63 122/61 O2 Sat by Pulse 95 95 94 Oximetry 01/24/20 01/24/20 01/24/20 06:15 06:30 06:45 Pulse Rate 88 88 89 Respiratory 15 14 15 Rate Blood Pressure 126/63 129/61 133/65 O2 Sat by Pulse 87 86 93 Oximetry 01/24/20 08:15 Pulse Rate 89 Respiratory Rate Blood Pressure 124/70 O2 Sat by Pulse 95 Oximetry Constitutional: other (orally intubated, not sedated currently on vent) Eyes: non-icteric ENT: oropharynx moist Neck: supple Effort: normal Ascultation: Bilateral: rales Cardiovascular: regular rate and rhythm (no mrg) Gastrointestinal: normoactive bowel sounds, soft, non-tender, non-distended Integumentary: normal Extremities: no cyanosis, no edema, pink and warm Neurologic: normal mental status, non-focal exam, pupils equal and round, CN II- XII normal Psychiatric: mood appropriate, affect normal CBC and BMP: 01/23/20 Unknown 01/22/20 07:47 ABG, PT/INR, D-dimer: ABG ABG pH 7.214 pH Units (7.350-7.450) L 01/24/20 05:20 ABG pCO2 80.0 mm Hg 01/24/20 05:20 ABG pO2 71.7 mm Hg (80.0-90.0) L 01/24/20 05:20 ABG O2 Saturation 91.8 % (95.0-99.0) L 01/24/20 05:20 PT/INR, D-dimer PT 15.6 Sec. (12.2-14.9) H 01/09/20 12:55 INR 1.22 (0.87-1.13) H 01/09/20 12:55 D-Dimer 5783.11 ng/mlDDU (0-234) H 01/24/20 04:00 Abnormal lab findings: Abnormal Labs 01/09/20 01/09/20 01/09/20 12:55 12:55 12:55 WBC 4.4 L RBC 3.44 L Hgb Hct RDW 17.0 H Plt Count Lymph % (Auto) 6.8 L [place] % (Auto) 13.6 H Lymph # 0.3 L Seg Neutrophils % 79.0 H PT 15.6 H INR 1.22 H D-Dimer Heparin Anti-Xa Level ABG pH ABG pO2 ABG HCO3 ABG O2 Saturation ABG Base Excess ABG Hemoglobin Oxyhemoglobin Sodium 130 L Chloride 88.9 L Carbon Dioxide 20 L BUN 41 H Creatinine 7.6 H Glucose 115 H POC Glucose Calcium Magnesium Ferritin Alkaline Phosphatase 153 H Lactate Dehydrogenase Troponin T 0.382 H* C-Reactive Protein NT-Pro-B Natriuret Pep 08553 H Total Protein Albumin 3.2 L 01/09/20 01/10/20 01/10/20 20:14 00:16 06:54 WBC 3.3 L RBC 3.00 L Hgb 9.2 L Hct 27.8 L RDW 17.2 H Plt Count Lymph % (Auto) 8.9 L [place] % (Auto) 11.5 H Lymph # 0.3 L Seg Neutrophils % 79.1 H PT INR D-Dimer Heparin Anti-Xa Level ABG pH ABG pO2 ABG HCO3 ABG O2 Saturation ABG Base Excess ABG Hemoglobin Oxyhemoglobin Sodium Chloride Carbon Dioxide BUN Creatinine Glucose POC Glucose Calcium Magnesium Ferritin Alkaline Phosphatase Lactate Dehydrogenase Troponin T 0.349 H* 0.328 H* C-Reactive Protein NT-Pro-B Natriuret Pep Total Protein Albumin 01/10/20 01/10/20 01/11/20 06:54 06:54 16:45 WBC RBC Hgb Hct RDW Plt Count Lymph % (Auto) [place] % (Auto) Lymph # Seg Neutrophils % PT INR D-Dimer Heparin Anti-Xa Level ABG pH ABG pO2 ABG HCO3 ABG O2 Saturation ABG Base Excess ABG Hemoglobin Oxyhemoglobin Sodium 133 L Chloride 90.6 L Carbon Dioxide BUN 50 H Creatinine 8.4 H Glucose 101 H POC Glucose 106 H Calcium 8.1 L Magnesium Ferritin Alkaline Phosphatase 148 H Lactate Dehydrogenase Troponin T 0.315 H* C-Reactive Protein NT-Pro-B Natriuret Pep Total Protein 5.4 L Albumin 2.7 L 01/12/20 01/13/20 01/13/20 16:01 06:11 06:11 WBC 3.1 L RBC 3.25 L Hgb 9.8 L Hct RDW 17.2 H Plt Count 136 L Lymph % (Auto) [place] % (Auto) Lymph # Seg Neutrophils % PT INR D-Dimer Heparin Anti-Xa Level ABG pH ABG pO2 ABG HCO3 ABG O2 Saturation ABG Base Excess ABG Hemoglobin Oxyhemoglobin Sodium 135 L Chloride 93.4 L Carbon Dioxide BUN 19 H Creatinine 4.5 H Glucose 120 H POC Glucose Calcium 7.8 L Magnesium 1.40 L Ferritin Alkaline Phosphatase Lactate Dehydrogenase Troponin T C-Reactive Protein NT-Pro-B Natriuret Pep Total Protein Albumin 01/16/20 01/16/20 01/16/20 08:35 11:49 14:11 WBC RBC Hgb Hct RDW Plt Count Lymph % (Auto) [place] % (Auto) Lymph # Seg Neutrophils % PT INR D-Dimer Heparin Anti-Xa Level ABG pH ABG pO2 48.4 L ABG HCO3 30.5 H ABG O2 Saturation 81.9 L ABG Base Excess 4.6 H ABG Hemoglobin 10.5 L Oxyhemoglobin 80.1 L Sodium Chloride Carbon Dioxide BUN Creatinine Glucose POC Glucose 126 H 119 H Calcium Magnesium Ferritin Alkaline Phosphatase Lactate Dehydrogenase Troponin T C-Reactive Protein NT-Pro-B Natriuret Pep Total Protein Albumin 01/16/20 01/16/20 01/16/20 15:38 15:38 15:38 WBC RBC Hgb Hct RDW Plt Count Lymph % (Auto) [place] % (Auto) Lymph # Seg Neutrophils % PT INR D-Dimer 1104.64 H Heparin Anti-Xa Level ABG pH ABG pO2 ABG HCO3 ABG O2 Saturation ABG Base Excess ABG Hemoglobin Oxyhemoglobin Sodium Chloride Carbon Dioxide BUN Creatinine Glucose POC Glucose Calcium Magnesium Ferritin > 2000.0 H Alkaline Phosphatase Lactate Dehydrogenase 690 H Troponin T C-Reactive Protein 24.10 H NT-Pro-B Natriuret Pep Total Protein Albumin 01/16/20 01/18/20 01/18/20 18:11 06:25 06:25 WBC RBC 3.15 L Hgb 9.4 L Hct 29.4 L RDW 17.5 H Plt Count 135 L Lymph % (Auto) 3.8 L [place] % (Auto) Lymph # 0.2 L Seg Neutrophils % 88.8 H PT INR D-Dimer Heparin Anti-Xa Level ABG pH ABG pO2 ABG HCO3 ABG O2 Saturation ABG Base Excess ABG Hemoglobin Oxyhemoglobin Sodium Chloride 96.8 L Carbon Dioxide BUN 26 H Creatinine 4.2 H Glucose 115 H POC Glucose 130 H Calcium 8.2 L Magnesium Ferritin Alkaline Phosphatase Lactate Dehydrogenase 537 H Troponin T C-Reactive Protein 17.10 H NT-Pro-B Natriuret Pep Total Protein Albumin 01/18/20 01/18/20 01/18/20 06:25 06:25 12:15 WBC RBC Hgb Hct RDW Plt Count Lymph % (Auto) [place] % (Auto) Lymph # Seg Neutrophils % PT INR D-Dimer 938.03 H Heparin Anti-Xa Level ABG pH ABG pO2 66.5 L ABG HCO3 30.1 H ABG O2 Saturation 93.2 L ABG Base Excess 4.6 H ABG Hemoglobin 10.0 L Oxyhemoglobin 91.3 L Sodium Chloride Carbon Dioxide BUN Creatinine Glucose POC Glucose Calcium Magnesium Ferritin 3105.0 H Alkaline Phosphatase Lactate Dehydrogenase Troponin T C-Reactive Protein NT-Pro-B Natriuret Pep Total Protein Albumin 01/20/20 01/20/20 01/20/20 07:37 07:37 07:37 WBC RBC Hgb Hct RDW Plt Count Lymph % (Auto) [place] % (Auto) Lymph # Seg Neutrophils % PT INR D-Dimer 2072.25 H Heparin Anti-Xa Level ABG pH ABG pO2 ABG HCO3 ABG O2 Saturation ABG Base Excess ABG Hemoglobin Oxyhemoglobin Sodium Chloride Carbon Dioxide BUN Creatinine Glucose POC Glucose Calcium Magnesium Ferritin 1826.0 H Alkaline Phosphatase Lactate Dehydrogenase 496 H Troponin T C-Reactive Protein 19.30 H NT-Pro-B Natriuret Pep Total Protein Albumin 01/20/20 01/21/20 01/21/20 17:30 03:59 17:35 WBC RBC Hgb Hct RDW Plt Count Lymph % (Auto) [place] % (Auto) Lymph # Seg Neutrophils % PT INR D-Dimer Heparin Anti-Xa Level ABG pH ABG pO2 61.1 L 67.4 L ABG HCO3 29.9 H 26.2 H ABG O2 Saturation 91.7 L 93.4 L ABG Base Excess 4.9 H ABG Hemoglobin 9.0 L 9.1 L Oxyhemoglobin 89.5 L 91.1 L Sodium 136 L Chloride Carbon Dioxide BUN 36 H Creatinine 4.9 H Glucose POC Glucose Calcium Magnesium Ferritin Alkaline Phosphatase Lactate Dehydrogenase Troponin T C-Reactive Protein NT-Pro-B Natriuret Pep Total Protein Albumin 01/21/20 01/22/20 01/22/20 Unknown 03:41 03:41 WBC RBC Hgb Hct RDW Plt Count Lymph % (Auto) [place] % (Auto) Lymph # Seg Neutrophils % PT INR D-Dimer Heparin Anti-Xa Level ABG pH 7.465 H ABG pO2 48.9 L ABG HCO3 26.6 H ABG O2 Saturation 85.7 L ABG Base Excess ABG Hemoglobin 10.4 L Oxyhemoglobin 83.5 L Sodium Chloride Carbon Dioxide BUN Creatinine Glucose POC Glucose Calcium Magnesium Ferritin 6071.0 H Alkaline Phosphatase Lactate Dehydrogenase 963 H Troponin T C-Reactive Protein 30.00 H NT-Pro-B Natriuret Pep Total Protein Albumin 01/22/20 01/22/20 01/22/20 03:41 07:47 11:20 WBC RBC Hgb Hct RDW Plt Count Lymph % (Auto) [place] % (Auto) Lymph # Seg Neutrophils % PT INR D-Dimer > 31658 H Heparin Anti-Xa Level ABG pH ABG pO2 66.7 L ABG HCO3 28.7 H ABG O2 Saturation 91.9 L ABG Base Excess ABG Hemoglobin 9.1 L Oxyhemoglobin 89.5 L Sodium Chloride 94.3 L Carbon Dioxide BUN 53 H Creatinine 6.5 H Glucose POC Glucose Calcium Magnesium Ferritin Alkaline Phosphatase Lactate Dehydrogenase Troponin T C-Reactive Protein NT-Pro-B Natriuret Pep Total Protein Albumin 01/22/20 01/22/20 01/23/20 11:49 Unknown 04:55 WBC 15.1 H RBC 3.05 L Hgb 8.8 L Hct 28.3 L RDW 17.8 H Plt Count 125 L Lymph % (Auto) [place] % (Auto) Lymph # Seg Neutrophils % PT INR D-Dimer Heparin Anti-Xa Level ABG pH 7.340 L ABG pO2 77.7 L 136.3 H ABG HCO3 27.6 H 28.8 H ABG O2 Saturation ABG Base Excess ABG Hemoglobin 9.3 L 10.9 L Oxyhemoglobin 94.2 L Sodium Chloride Carbon Dioxide BUN Creatinine Glucose POC Glucose Calcium Magnesium Ferritin Alkaline Phosphatase Lactate Dehydrogenase Troponin T C-Reactive Protein NT-Pro-B Natriuret Pep Total Protein Albumin 01/23/20 01/23/20 01/23/20 06:23 07:07 12:23 WBC RBC Hgb Hct RDW Plt Count Lymph % (Auto) [place] % (Auto) Lymph # Seg Neutrophils % PT INR D-Dimer Heparin Anti-Xa Level ABG pH ABG pO2 ABG HCO3 ABG O2 Saturation ABG Base Excess ABG Hemoglobin Oxyhemoglobin Sodium Chloride Carbon Dioxide BUN Creatinine Glucose POC Glucose 57 L 127 H 131 H Calcium Magnesium Ferritin Alkaline Phosphatase Lactate Dehydrogenase Troponin T C-Reactive Protein NT-Pro-B Natriuret Pep Total Protein Albumin 01/23/20 01/23/20 01/24/20 Unknown Unknown 04:00 WBC 16.2 H RBC 3.08 L Hgb 8.9 L Hct 28.6 L RDW 17.8 H Plt Count 139 L Lymph % (Auto) [place] % (Auto) Lymph # Seg Neutrophils % PT INR D-Dimer Heparin Anti-Xa Level < 0.10 L ABG pH ABG pO2 ABG HCO3 ABG O2 Saturation ABG Base Excess ABG Hemoglobin Oxyhemoglobin Sodium Chloride Carbon Dioxide BUN Creatinine Glucose POC Glucose Calcium Magnesium Ferritin 4195.0 H Alkaline Phosphatase Lactate Dehydrogenase Troponin T C-Reactive Protein NT-Pro-B Natriuret Pep Total Protein Albumin 01/24/20 01/24/20 01/24/20 04:00 04:00 04:00 WBC RBC Hgb Hct RDW Plt Count Lymph % (Auto) [place] % (Auto) Lymph # Seg Neutrophils % PT INR D-Dimer 5783.11 H Heparin Anti-Xa Level ABG pH 7.188 L* ABG pO2 70.8 L ABG HCO3 32.2 H ABG O2 Saturation 90.4 L ABG Base Excess ABG Hemoglobin 8.5 L Oxyhemoglobin 88.1 L Sodium Chloride Carbon Dioxide BUN Creatinine Glucose POC Glucose Calcium Magnesium Ferritin Alkaline Phosphatase Lactate Dehydrogenase 474 H Troponin T C-Reactive Protein 29.80 H NT-Pro-B Natriuret Pep Total Protein Albumin 01/24/20 01/24/20 05:20 05:51 WBC RBC Hgb Hct RDW Plt Count Lymph % (Auto) [place] % (Auto) Lymph # Seg Neutrophils % PT INR D-Dimer Heparin Anti-Xa Level ABG pH 7.214 L ABG pO2 71.7 L ABG HCO3 31.5 H ABG O2 Saturation 91.8 L ABG Base Excess ABG Hemoglobin 9.1 L Oxyhemoglobin 89.3 L Sodium Chloride Carbon Dioxide BUN Creatinine Glucose POC Glucose 50 L Calcium Magnesium Ferritin Alkaline Phosphatase Lactate Dehydrogenase Troponin T C-Reactive Protein NT-Pro-B Natriuret Pep Total Protein Albumin Allied health notes reviewed: nursing
[2020-01-24 09:18] LABS: ABG Base Excess 3.3 mmol/L (-2.0-3.0); ABG HCO3 30.6 mmol/L (20.0-26.0); ABG Methemoglobin 0.5 % (0.0-1.5); ABG Oxygen Saturation 93.6 % (95.0-99.0); ABG PH 7.291 pH Units (7.350-7.450); ABG PO2 71.3 mm Hg (80.0-90.0)
--- NOTE | 2020-01-24 09:39 | Progress Note ---
Assessment and Plan Assessment and plan: Suspected COVID- 19 Patient with very elevated inflammatory markers of ferritin, CRP, LDH and d- dimer. Bilateral pneumonia. Continue antibiotics per ID ARDS. Etiology secondary to above. Acute hypoxemic respiratory failure. Continue oxygen to maintain sats greater than 92% Appears stable on HFNC; wean FiO2 then flow Chest pain Stress test neg for ischemia GERD and costochondritis in differential diagnosis Volume overload s/p hemodialysis Nephrology consulted,following Acute on Chronic diastolic CHF exacerbation Secondary to volume overload End stage renal disease on dialysis Nephrology following T2DM (type 2 diabetes mellitus) Continue continue coverage Check hemoglobin A1c Hypertension Continue antihypertensives Hyponatremia Secondary to increased volume--dilutional DVT prophylaxis On heparin and GI prophylaxis 01/11 Covid 19 survey testing sent, nasal swab done 01/10 01/12 Patient has acute resp failure. may need Oxygen on dc. awaiting Covid result 01/13 Still has shortness of breath, awaiting Covid test. 01/14 Pt still dyspneic, await covid testing, Pulse ox 83% 01/16/2020. Patient remains dyspneic. Follow-up COVID testing. 01/17/2020. Patient still requiring large amounts of oxygen. Patient currently with 15 L satting at 95%. Patient with increased inflammatory markers. Follow- up chest x-ray today. 01/18/20--Patient still requiring large amounts of oxygen. Patient currently with 15 L %. Patient with increased inflammatory markers. 01/19/2020 very elevated inflammatory markers- ferritin> 2000, CRP >24, LDH> 600, d-dimer >1000 putting her at high risk for ARDS. Continue hydroxychloroquine 400 mg PO BID for 1 day then 200 mg PO BID for 4 days (total 5 days) with zinc 220 mg PO qday. Continue ceftriaxone. ContinueCOVID isolationprecautions pe r [facility] protocol. Continue serial Ferritin, LDH, D-Dimer, CRP every 48h 01/20/2020. Inflammatory markers remain elevated with ferritin 1826, LDH 496, CRP 19.3, and d-dimer 2072. Patient requiring high flow nasal cannula 40L, FiO2 80%. Pulmonary following. Continue antibiotics and Plaquenil. Continue COVID isolationprecautions per [facility] protocol. Patient has a high risk mortality and remains guarded. 01/21/2020. Continue antibiotics and Plaquenil. Continue COVID isolationprecautions per [facility] protocol. Maintain sats of 88% and greater. Still on HFNC, O2 weaned to 95% overnight. Sats documented at 98%. Pulmonary following and reports If patient progresses could give bipap a one hour trial to see if there is improvement, repeat ABG, if not would suggest elective intubation. 01/22/2020 Patient still critically ill. Yesterday 01/20 had cardiopulmonary arrest so now intubated in ICU. Prognosis guarded. 01/23/2020 still critically ill. No more fever. Continue vent management. 01/24/20 Still critically ill, remain on vent. Continue current management. Will call . The high probability of a clinically significant, sudden or life threatening deterioration of the [immunologic and respiratory] system(s) required my full and direct attention, intervention and personal management. The aggregate critical care time was [34] minutes. This time is in addition to time spent performing reported procedures but includes the following: [x] Data Review and interpretation [x] Patient assessment and monitoring of vital signs [x] Documentation [x] Medication orders and management History Interval history: Patient initially presented with chest tightness, SOB Now diagnosed with Covid-19 infection,acute resp failure, intubated PUI?: Yes COVID19: Positive Hospitalist Physical - Physical exam Narrative exam: GEN: Intubated, sedated HEENT: Normocephalic, atraumatic, Neck: supple, No JVD Lungs: Bilateral crackles, heart;S1 and S2 reg, no murmurs, rubs or gallop Abd:soft, non tender, non distended, normal bowel sounds Ext: No edema, no clubbing, no cyanosis, Neuro: intubated, sedated - Constitutional Vitals: Temp Pulse Resp BP Pulse Ox 98.9 F 90 17 135/65 89 01/23/20 14:21 01/24/20 09:15 01/24/20 09:15 01/24/20 09:15 01/24/20 09:15 General appearance: Present: no acute distress SEAN score - Sean Score Age > 65: (1) Yes Aspirin use within the Past 7 Days: (1) Yes 3 or more CAD Risk Factors: (1) Yes 2 or more Angina events in past 24 hrs: (1) Yes Known CAD with more than 50% Stenosis: (0) No Elevated Cardiac Markers: (0) No ST Deviation Greater than 0.5mm: (0) No SEAN Score: 4 Results - Labs CBC & Chem 7: 01/23/20 Unknown 01/22/20 07:47 Labs: Laboratory Last Values WBC 16.2 K/mm3 (4.5-11.0) H 01/23/20 Unknown RBC 3.08 M/mm3 (3.65-5.03) L 01/23/20 Unknown Hgb 8.9 gm/dl (10.1-14.3) L 01/23/20 Unknown Hct 28.6 % (30.3-42.9) L 01/23/20 Unknown MCV 93 fl (79-97) 01/23/20 Unknown MCH 29 pg (28-32) 01/23/20 Unknown MCHC 31 % (30-34) 01/23/20 Unknown RDW 17.8 % (13.2-15.2) H 01/23/20 Unknown Plt Count 139 K/mm3 (140-440) L 01/23/20 Unknown Lymph % (Auto) 3.8 % (13.4-35.0) L 01/18/20 06:25 [place] % (Auto) 6.5 % (0.0-7.3) 01/18/20 06:25 Eos % (Auto) 0.8 % (0.0-4.3) 01/18/20 06:25 Baso % (Auto) 0.1 % (0.0-1.8) 01/18/20 06:25 Lymph # 0.2 K/mm3 (1.2-5.4) L 01/18/20 06:25 [place] # 0.4 K/mm3 (0.0-0.8) 01/18/20 06:25 Eos # 0.0 K/mm3 (0.0-0.4) 01/18/20 06:25 Baso # 0.0 K/mm3 (0.0-0.1) 01/18/20 06:25 Seg Neutrophils % 88.8 % (40.0-70.0) H 01/18/20 06:25 Seg Neutrophils # 5.0 K/mm3 (1.8-7.7) 01/18/20 06:25 PT 15.6 Sec. (12.2-14.9) H 01/09/20 12:55 INR 1.22 (0.87-1.13) H 01/09/20 12:55 APTT 31.5 Sec. (24.2-36.6) 01/09/20 12:55 D-Dimer 5783.11 ng/mlDDU (0-234) H 01/24/20 04:00 Heparin Anti-Xa Level < 0.10 U.I./ml (0.3-0.7) L 01/23/20 Unknown ABG pH 7.291 pH Units (7.350-7.450) L 01/24/20 Unknown ABG pCO2 65.0 mm Hg 01/24/20 Unknown ABG pO2 71.3 mm Hg (80.0-90.0) L 01/24/20 Unknown ABG HCO3 30.6 mmol/L (20.0-26.0) H 01/24/20 Unknown ABG O2 Saturation 93.6 % (95.0-99.0) L 01/24/20 Unknown ABG O2 Content 10.5 (0.0-44) 01/24/20 Unknown ABG Base Excess 3.3 mmol/L (-2.0-3.0) H 01/24/20 Unknown ABG Hemoglobin 8.1 gm/dl (12.0-16.0) L 01/24/20 Unknown ABG Carboxyhemoglobin 2.1 % (0.0-5.0) 01/24/20 Unknown ABG Methemoglobin 0.5 % (0.0-1.5) 01/24/20 Unknown Oxyhemoglobin 91.2 % (95.0-99.0) L 01/24/20 Unknown FiO2 60 % 01/24/20 Unknown Sodium 139 mmol/L (137-145) 01/22/20 07:47 Potassium 4.8 mmol/L (3.6-5.0) 01/22/20 07:47 Chloride 94.3 mmol/L (98-107) L 01/22/20 07:47 Carbon Dioxide 24 mmol/L (22-30) 01/22/20 07:47 Anion Gap 26 mmol/L 01/22/20 07:47 BUN 53 mg/dL (7-17) H 01/22/20 07:47 Creatinine 6.5 mg/dL (0.7-1.2) H 01/22/20 07:47 Estimated GFR 8 ml/min 01/22/20 07:47 BUN/Creatinine Ratio 8 % 01/22/20 07:47 Glucose 72 mg/dL (65-100) 01/22/20 07:47 POC Glucose 50 (70-105) L 01/24/20 05:51 Hemoglobin A1c 5.0 % (4-6) 01/10/20 06:54 Calcium 9.0 mg/dL (8.4-10.2) 01/22/20 07:47 Phosphorus 3.30 mg/dL (2.5-4.5) 01/12/20 16:01 Magnesium 2.00 mg/dL (1.7-2.3) 01/13/20 06:11 Ferritin 4195.0 ng/mL (13.0-400.0) H 01/24/20 04:00 Total Bilirubin 0.30 mg/dL (0.1-1.2) 01/10/20 06:54 AST 30 units/L (5-40) 01/10/20 06:54 ALT 24 units/L (7-56) 01/10/20 06:54 Alkaline Phosphatase 148 units/L (35-129) H 01/10/20 06:54 Lactate Dehydrogenase 474 units/L (91-180) H 01/24/20 04:00 Troponin T 0.315 ng/mL (0.00-0.029) H* 01/10/20 06:54 C-Reactive Protein 29.80 mg/dL (0.00-1.30) H 01/24/20 04:00 NT-Pro-B Natriuret Pep 72256 pg/mL (0-900) H 01/09/20 12:55 Total Protein 5.4 g/dL (6.3-8.2) L 01/10/20 06:54 Albumin 2.7 g/dL (3.9-5) L 01/10/20 06:54 Albumin/Globulin Ratio 1.0 % 01/10/20 06:54 Triglycerides 81 mg/dL (2-149) 01/24/20 04:00 Cholesterol 123 mg/dL (50-199) 01/09/20 12:55 LDL Cholesterol Direct 66 mg/dL (50-130) 01/09/20 12:55 HDL Cholesterol 47 mg/dL (40-59) 01/09/20 12:55 Cholesterol/HDL Ratio 2.61 % 01/09/20 12:55 Hepatitis A IgM Ab Non-reactive (NonReactive) 01/21/20 23:40 Hep Bs Antigen Non-reactive (Negative) 01/21/20 23:40 Hep B Core IgM Ab Non-reactive (NonReactive) 01/21/20 23:40 Hepatitis C Antibody Non-reactive (NonReactive) 01/21/20 23:40 Miscellaneous Test See scanned result 01/11/20 Unknown Miscellaneous Test See scanned result 01/11/20 Unknown Microbiology: Microbiology 01/21/20 17:35 Tracheal Aspirate Sputum Culture - Final Pleitez/IV: Voiding Method Toilet IV Catheter Type [Left Chest] Infusaport IV Catheter Type [Right Peripheral IV External Jugular] IV Catheter Type [Left INT / Saline Lock External Jugular] Active Medications - Current Medications Current Medications: Generic Name Dose Route Start Last Admin Trade Name Freq PRN Reason Stop Dose Admin Acetaminophen 650 mg 01/09/20 16:33 01/12/20 18:23 Tylenol PO 650 mg Q4H PRN Administration Pain MILD(1-3)/Fever >100.5/MEANS Amlodipine Besylate 10 mg 01/09/20 17:00 01/24/20 09:08 Amlodipine PO Not Given DAILY PHILLY Lipase/Protease/Amylase 1 each 01/23/20 14:[address] 10,500 Unit FEEDTUBE PRN PRN For Clogged Feeding Tube Atorvastatin Calcium 40 mg 01/09/20 22:00 01/23/20 21:38 Lipitor PO 40 mg QHS PHILLY Administration Cyclobenzaprine HCl 5 mg 01/09/20 16:27 01/10/20 23:17 Flexeril PO 5 mg QHS PRN Administration Muscle Spasm Dextrose 50 ml 01/23/20 07:26 01/24/20 09:03 D50w (25gm) Syringe IV 50 ml Q30MIN PRN Administration BLOOD GLUCOSE < 70 Dextrose 25 ml 01/24/20 08:58 D50w (25gm) Syringe IV Q4H PRN BG < 80 MG/DL Diphenhydramine HCl 25 mg 01/09/20 16:15 01/12/20 00:50 Benadryl PO 25 mg Q8HR PRN Administration Itching Duloxetine HCl 30 mg 01/09/20 17:00 01/24/20 09:07 Cymbalta PO 30 mg QDAY PHILLY Administration Enoxaparin Sodium 80 mg 01/23/20 12:00 01/24/20 09:08 Enoxaparin SUB-Q 80 mg Q24HR PHILLY Administration Famotidine 20 mg 01/09/20 22:00 01/24/20 09:07 Pepcid PO 20 mg DAILY PHILLY Administration Fentanyl 50 mcg 01/23/20 15:36 01/23/20 15:54 Sublimaze IV 50 mcg Q10MIN PRN Administration ANALGESIA Cefepime HCl 1 gm in 100 mls @ 200 mls/hr 01/21/20 18:00 01/23/20 18:37 Cefepime/Ns 1 Gm/100 Ml IV 01/25/20 18:29 200 mls/hr QPM PHILLY Administration Norepinephrine 4 mg in 250 mls @ 7.5 mls/hr 01/21/20 18:00 01/24/20 06:33 Levophed Drip 4 Mg/Ns 250 Ml IV 6 mcg/min TITR PHILLY 22.5 mls/hr Administration Protocol 2 MCG/MIN Propofol 1,000 mg in 100 mls @ 2.265 mls/hr 01/22/20 09:00 01/24/20 06:12 Diprivan 10 Mg/Ml IV 30 mcg/kg/min TITR PHILLY 13.59 mls/hr Administration Protocol 5 MCG/KG/MIN Sodium Chloride 100 mls @ 999 mls/hr 01/22/20 11:35 Nacl 0.9% IV SILVERIO PRN Hypotension Fentanyl Citrate 2,000 mcg in 100 mls @ 3.775 mls/hr 01/23/20 16:00 01/24/20 01:32 Fentanyl Drip Premix IV 0 mcg/kg/hr TITR PHILLY 0 mls/hr Titration Protocol 1 MCG/KG/HR Lorazepam 100 mg/ Sodium 100 mls @ 1 mls/hr 01/23/20 16:00 Chloride/ Miscellaneous IV Information TITR PHILLY Protocol 1 MG/HR Lorazepam 2 mg 01/23/20 15:36 Ativan IV Q10MIN PRN Agitation Metoprolol Tartrate 50 mg 01/20/20 22:00 01/24/20 09:09 Metoprolol PO Not Given BID PHILLY Ondansetron HCl 4 mg 01/09/20 16:33 01/20/20 10:19 Zofran IV 4 mg Q8H PRN Administration Nausea And Vomiting Simple Syrup 15 ml 01/23/20 14:28 Simple Syrup FEEDTUBE PRN PRN Hypoglycemia Simple Syrup 30 ml 01/23/20 14:28 Simple Syrup FEEDTUBE PRN PRN Hypoglycemia Sodium Bicarbonate 325 mg 01/23/20 14:28 Sodium Bicarbonate FEEDTUBE PRN PRN For Clogged Feeding Tube Sodium Chloride 10 ml 01/09/20 22:00 01/24/20 09:09 Sodium Chloride Flush Syringe 10 Ml IV 10 ml BID PHILLY Administration Sodium Chloride 10 ml 01/09/20 16:33 Sodium Chloride Flush Syringe 10 Ml IV PRN PRN LINE FLUSH Tramadol HCl 50 mg 01/16/20 13:07 01/20/20 10:19 Ultram PO 50 mg Q12HR PRN Administration Pain, Moderate (4-6) Valsartan 80 mg 01/10/20 10:00 01/24/20 09:09 Diovan PO Not Given DAILY PHILLY Nutrition/Malnutrition Assess - Dietary Evaluation Nutrition/Malnutrition Findings: Nutrition Notes Start: 01/17/20 13:49 Freq: Status: Active Protocol: Document 01/23/20 14:19 LM (Rec: 01/23/20 14:27 LM [email or web address]) Nutrition Notes Initial or Follow up Reassessment Current Diagnosis CKD (stage V CKD),Diabetes, Hypertension,Heart Failure, Respiratory Failure Other Pertinent Diagnosis Bilat pneu, COVID-19 (+), ARDS , volume overload, Chest pain Current Diet Renal + Nepro BID Labs/Tests POC glu 127 Pertinent Medications Propofol at 2.265ml/hr (60 kcal) Height 5 ft 6 in Weight 75.5 kg [place] Body Weight (kg) 59.09 BMI 26.9 Subjective/Other Information MD consult for TF. Pt now on vent. Burn Absent Trauma Absent Current % PO Negligible Minimum of two criteria Yes Interpretation of Weight Loss (non- 5% in 1 month severe) Fluid Accumulation Mild (non-severe) Reduced Core Worker Strength Measurably Reduced (severe) #1 Nutrition Diagnosis Malnutrition Diagnosis Progress(for reassessment Continues documentation) Is patient on ventilator? No Is Patient Ambulatory and/or Out of Bed No REE-(Lamb-St. Jeor-confined to bed) 4974.298 Calculation Used for Recommendations [facility] Additional Notes Protein: 91-151g (1.2-2g/kg) Fluid: per Nutrition Intervention Change Diet Order: TF Nutrition Support: Nepro 1.8 at 35ml/hr (goal rate) Flush 150ml q4h Kcal 1,512 Protein (gm) 68 Fluid (mL) 611 Goal #1 TF start/tolerance Anticipated Discharge Needs: unable to determine at this time Follow-Up By: 01/25/20 Additional Comments F/U for TF start/tolerance
[2020-01-24] MEDS ORDERED: SODIUM CHLORIDE 0.9% 100 ML IV PRN (10:30)
--- NOTE | 2020-01-24 14:34 | Progress Note ---
Assessment and Plan - Patient Problems (1) ESRD needing dialysis Current Visit: No Status: Acute Plan to address problem: Patient on MWF schedule. Receiving isolated UF session today. (2) Volume overload Current Visit: Yes Status: Acute Qualifiers: Plan to address problem: Goal is to optimize volume status with adequate fluid removal with HD. Evaluate daily for need of extra isolated UF sessions. Extra isolated UF session today. (3) Pneumonia due to COVID-19 virus Current Visit: Yes Status: Acute Plan to address problem: Management per ID recommendations. (4) Hyponatremia Current Visit: No Status: Acute Plan to address problem: Possibly in the setting of fluid overload. improved at this time. (5) Hypertensive chronic kidney disease with stage 5 chronic kidney disease or end stage renal disease Current Visit: No Status: Chronic Plan to address problem: Monitor on current regimen. Now off all blood pressure medications, and in fact on pressors at present time. Will have ICU team titrate pressors so as to allow us to be aggressive in fluid removal with HD. (6) Anemia in CKD (chronic kidney disease) Current Visit: Yes Status: Acute Qualifiers: Chronic kidney disease stage: on chronic dialysis Qualified Code(s): N18.6 - End stage renal disease; D63.1 - Anemia in chronic kidney disease; Z99.2 - Dependence on renal dialysis Plan to address problem: CLARITA therapy with HD. (7) Secondary hyperparathyroidism (of renal origin) Current Visit: Yes Status: Chronic Plan to address problem: Continue on current outpatient phos binder regimen. Subjective Date of service: 01/24/20 Principal diagnosis: Pneumonia Interval history: Patient had isolated HD session yesterday with another 2L UF done. She is rec eiving bedside treatment today for sequential UF. Goal is to take off another 3L today. Her next HD session will be tomorrow. PUI?: Yes COVID19: Positive Objective - Vital Signs Vital signs: Vital Signs - 12hr 01/24/20 01/24/20 01/24/20 02:45 03:00 03:15 Temperature Pulse Rate 84 85 85 Pulse Rate [ Left Apical] Pulse Rate [ Left Dorsalis Pedis] Pulse Rate [ Left Radial] Pulse Rate [ Right Dorsalis Pedis] Pulse Rate [ Right Radial] Respiratory 18 15 20 Rate Blood Pressure 106/57 106/56 104/56 O2 Sat by Pulse 93 93 93 Oximetry O2 Sat by Pulse Oximetry [ Anterior Bilateral Throughout] O2 Sat by Pulse Oximetry [ Bilateral] 01/24/20 01/24/20 01/24/20 03:30 03:45 04:00 Temperature Pulse Rate 85 86 87 Pulse Rate [ Left Apical] Pulse Rate [ Left Dorsalis Pedis] Pulse Rate [ Left Radial] Pulse Rate [ Right Dorsalis Pedis] Pulse Rate [ Right Radial] Respiratory 17 16 13 Rate Blood Pressure 114/59 110/58 115/60 O2 Sat by Pulse 93 92 92 Oximetry O2 Sat by Pulse Oximetry [ Anterior Bilateral Throughout] O2 Sat by Pulse Oximetry [ Bilateral] 01/24/20 01/24/20 01/24/20 04:15 04:30 04:45 Temperature Pulse Rate 87 82 84 Pulse Rate [ Left Apical] Pulse Rate [ Left Dorsalis Pedis] Pulse Rate [ Left Radial] Pulse Rate [ Right Dorsalis Pedis] Pulse Rate [ Right Radial] Respiratory 13 13 13 Rate Blood Pressure 114/60 114/60 117/56 O2 Sat by Pulse 94 92 91 Oximetry O2 Sat by Pulse Oximetry [ Anterior Bilateral Throughout] O2 Sat by Pulse Oximetry [ Bilateral] 01/24/20 01/24/20 01/24/20 04:58 05:00 05:15 Temperature Pulse Rate 86 86 86 Pulse Rate [ Left Apical] Pulse Rate [ Left Dorsalis Pedis] Pulse Rate [ Left Radial] Pulse Rate [ Right Dorsalis Pedis] Pulse Rate [ Right Radial] Respiratory 16 15 Rate Blood Pressure 117/56 121/61 123/62 O2 Sat by Pulse 94 93 95 Oximetry O2 Sat by Pulse Oximetry [ Anterior Bilateral Throughout] O2 Sat by Pulse Oximetry [ Bilateral] 01/24/20 01/24/20 01/24/20 05:30 05:45 06:00 Temperature Pulse Rate 87 87 88 Pulse Rate [ Left Apical] Pulse Rate [ Left Dorsalis Pedis] Pulse Rate [ Left Radial] Pulse Rate [ Right Dorsalis Pedis] Pulse Rate [ Right Radial] Respiratory 12 14 22 Rate Blood Pressure 125/62 128/63 122/61 O2 Sat by Pulse 95 95 94 Oximetry O2 Sat by Pulse Oximetry [ Anterior Bilateral Throughout] O2 Sat by Pulse Oximetry [ Bilateral] 01/24/20 01/24/20 01/24/20 06:15 06:30 06:45 Temperature Pulse Rate 88 88 89 Pulse Rate [ Left Apical] Pulse Rate [ Left Dorsalis Pedis] Pulse Rate [ Left Radial] Pulse Rate [ Right Dorsalis Pedis] Pulse Rate [ Right Radial] Respiratory 15 14 15 Rate Blood Pressure 126/63 129/61 133/65 O2 Sat by Pulse 87 86 93 Oximetry O2 Sat by Pulse Oximetry [ Anterior Bilateral Throughout] O2 Sat by Pulse Oximetry [ Bilateral] 01/24/20 01/24/20 01/24/20 07:00 07:15 07:30 Temperature Pulse Rate 89 89 89 Pulse Rate [ Left Apical] Pulse Rate [ Left Dorsalis Pedis] Pulse Rate [ Left Radial] Pulse Rate [ Right Dorsalis Pedis] Pulse Rate [ Right Radial] Respiratory 20 16 19 Rate Blood Pressure 132/65 126/67 129/67 O2 Sat by Pulse 94 94 94 Oximetry O2 Sat by Pulse Oximetry [ Anterior Bilateral Throughout] O2 Sat by Pulse Oximetry [ Bilateral] 01/24/20 01/24/20 01/24/20 07:45 08:00 08:15 Temperature Pulse Rate 89 89 89 Pulse Rate [ 84 Left Apical] Pulse Rate [ 84 Left Dorsalis Pedis] Pulse Rate [ 84 Left Radial] Pulse Rate [ 84 Right Dorsalis Pedis] Pulse Rate [ 84 Right Radial] Respiratory 21 14 11 L Rate Blood Pressure 124/61 125/65 124/70 O2 Sat by Pulse 94 94 94 Oximetry O2 Sat by Pulse Oximetry [ Anterior Bilateral Throughout] O2 Sat by Pulse Oximetry [ Bilateral] 01/24/20 01/24/20 01/24/20 08:30 08:45 09:00 Temperature Pulse Rate 90 90 90 Pulse Rate [ Left Apical] Pulse Rate [ Left Dorsalis Pedis] Pulse Rate [ Left Radial] Pulse Rate [ Right Dorsalis Pedis] Pulse Rate [ Right Radial] Respiratory 12 13 13 Rate Blood Pressure 129/66 127/65 121/67 O2 Sat by Pulse 94 89 88 Oximetry O2 Sat by Pulse Oximetry [ Anterior Bilateral Throughout] O2 Sat by Pulse Oximetry [ Bilateral] 01/24/20 01/24/20 01/24/20 09:08 09:09 09:15 Temperature Pulse Rate 90 Pulse Rate [ Left Apical] Pulse Rate [ Left Dorsalis Pedis] Pulse Rate [ Left Radial] Pulse Rate [ Right Dorsalis Pedis] Pulse Rate [ Right Radial] Respiratory 17 Rate Blood Pressure 121/63 121/67 135/65 O2 Sat by Pulse 89 Oximetry O2 Sat by Pulse Oximetry [ Anterior Bilateral Throughout] O2 Sat by Pulse Oximetry [ Bilateral] 01/24/20 01/24/20 01/24/20 11:19 12:04 13:30 Temperature 98.1 F 98.1 F Pulse Rate 98 H 80 Pulse Rate [ Left Apical] Pulse Rate [ Left Dorsalis Pedis] Pulse Rate [ Left Radial] Pulse Rate [ Right Dorsalis Pedis] Pulse Rate [ Right Radial] Respiratory 17 Rate Blood Pressure 124/70 111/55 O2 Sat by Pulse 84 Oximetry O2 Sat by Pulse 90 Oximetry [ Anterior Bilateral Throughout] O2 Sat by Pulse 90 Oximetry [ Bilateral] 01/24/20 13:55 Temperature Pulse Rate 90 Pulse Rate [ Left Apical] Pulse Rate [ Left Dorsalis Pedis] Pulse Rate [ Left Radial] Pulse Rate [ Right Dorsalis Pedis] Pulse Rate [ Right Radial] Respiratory Rate Blood Pressure 143/65 O2 Sat by Pulse Oximetry O2 Sat by Pulse Oximetry [ Anterior Bilateral Throughout] O2 Sat by Pulse Oximetry [ Bilateral] - General Appearance General appearance: chronically ill, intubated, frail EENT: ATNC Neck: no JVD Respiratory: Present: Decreased Breath Sounds Cardiology: regular Gastrointestinal: normal Integumentary: warm and dry Musculoskeletal: deferred - Lab 01/23/20 Unknown 01/22/20 07:47 Most recent lab results ABG pH 7.291 pH Units (7.350-7.450) L 01/24/20 Unknown ABG pCO2 65.0 mm Hg 01/24/20 Unknown ABG pO2 71.3 mm Hg (80.0-90.0) L 01/24/20 Unknown ABG HCO3 30.6 mmol/L (20.0-26.0) H 01/24/20 Unknown ABG O2 Saturation 93.6 % (95.0-99.0) L 01/24/20 Unknown Calcium 9.0 mg/dL (8.4-10.2) 01/22/20 07:47 Phosphorus 3.30 mg/dL (2.5-4.5) 01/12/20 16:01 Magnesium 2.00 mg/dL (1.7-2.3) 01/13/20 06:11 - Allied health notes Allied health notes reviewed: nursing Medications & Allergies - Medications Allergies/Adverse Reactions: Allergies cheese Allergy (Mild, Verified 12/20/19 10:19) Itching iodine Allergy (Mild, Verified 12/20/19 10:16) Anaphylaxis clonidine Allergy (Verified 12/19/19 04:13) Anaphylaxis shellfish derived Adverse Reaction (Verified 12/19/19 04:13) Angioedema Home Medications: Home Medications Medication Instructions Recorded Confirmed Last Taken Type Atorvastatin [Lipitor] 40 mg PO DAILY 11/06/19 01/13/20 01/02/20 10:00 History Acetaminophen [Acetaminophen 8 650 mg PO Q8H PRN #30 tablet.er 11/21/19 01/13/20 01/03/20 22:00 Rx Hour] Cyclobenzaprine HCl [Flexeril 5 MG 5 mg PO QHS PRN #20 tab 11/21/19 01/13/20 01/01/20 22:00 Rx TAB] HYDROcodone/APAP 5-325 [[place] 1 each PO Q6HR PRN #18 tablet 12/13/19 01/13/20 01/01/20 22:00 Rx 5-325 mg TAB] amLODIPine 10 mg PO DAILY 90 Days #90 tab 12/18/19 01/13/20 01/01/20 10:00 Rx Ibuprofen 800 mg PO TID 12/19/19 01/13/20 01/02/20 22:00 History Magnesium Oxide [Mag-Ox] 400 mg PO QDAY 12/19/19 01/13/20 01/03/20 10:00 History diphenhydrAMINE [Benadryl CAP] 25 mg PO Q8HR PRN 12/19/19 01/13/20 01/03/20 21:00 History labetaloL [Labetalol 100mg TAB] 100 mg PO Q8H #90 tablet 12/21/19 01/13/20 01/02/20 10:00 Rx traMADoL [Ultram 50 MG tab] 50 mg PO Q6HR PRN #20 tablet 12/29/19 01/13/20 12/31/19 10:00 Rx DULoxetine [Cymbalta] 30 mg PO QDAY #30 capsule 01/04/20 01/13/20 Unknown Rx Valsartan [Diovan] 80 mg PO DAILY #30 tablet 01/04/20 01/13/20 Unknown Rx Active Medications: Generic Name Dose Route Start Last Admin Trade Name Freq PRN Reason Stop Dose Admin Acetaminophen 650 mg 01/09/20 16:33 01/12/20 18:23 Tylenol PO 650 mg Q4H PRN Administration Pain MILD(1-3)/Fever >100.5/MEANS Lipase/Protease/Amylase 1 each 01/23/20 14:[address] 10,500 Unit FEEDTUBE PRN PRN For Clogged Feeding Tube Atorvastatin Calcium 40 mg 01/09/20 22:00 01/23/20 21:38 Lipitor PO 40 mg QHS PHILLY Administration Cyclobenzaprine HCl 5 mg 01/09/20 16:27 01/10/20 23:17 Flexeril PO 5 mg QHS PRN Administration Muscle Spasm Dextrose 50 ml 01/23/20 07:26 01/24/20 09:03 D50w (25gm) Syringe IV 50 ml Q30MIN PRN Administration BLOOD GLUCOSE < 70 Dextrose 25 ml 01/24/20 08:58 01/24/20 13:41 D50w (25gm) Syringe IV 25 ml Q4H PRN Administration BG < 80 MG/DL Diphenhydramine HCl 25 mg 01/09/20 16:15 01/12/20 00:50 Benadryl PO 25 mg Q8HR PRN Administration Itching Duloxetine HCl 30 mg 01/09/20 17:00 01/24/20 09:07 Cymbalta PO 30 mg QDAY PHILLY Administration Enoxaparin Sodium 80 mg 01/23/20 12:00 01/24/20 09:08 Enoxaparin SUB-Q 80 mg Q24HR PHILLY Administration Famotidine 20 mg 01/09/20 22:00 01/24/20 09:07 Pepcid PO 20 mg DAILY PHILLY Administration Fentanyl 50 mcg 01/23/20 15:36 01/23/20 15:54 Sublimaze IV 50 mcg Q10MIN PRN Administration ANALGESIA Cefepime HCl 1 gm in 100 mls @ 200 mls/hr 01/21/20 18:00 01/23/20 18:37 Cefepime/Ns 1 Gm/100 Ml IV 01/25/20 18:29 200 mls/hr QPM PHILLY Administration Norepinephrine 4 mg in 250 mls @ 7.5 mls/hr 01/21/20 18:00 01/24/20 06:33 Levophed Drip 4 Mg/Ns 250 Ml IV 6 mcg/min TITR PHILLY 22.5 mls/hr Administration Protocol 2 MCG/MIN Propofol 1,000 mg in 100 mls @ 2.265 mls/hr 01/22/20 09:00 01/24/20 13:40 Diprivan 10 Mg/Ml IV 30 mcg/kg/min TITR PHILLY 13.59 mls/hr Administration Protocol 5 MCG/KG/MIN Fentanyl Citrate 2,000 mcg in 100 mls @ 3.775 mls/hr 01/23/20 16:00 01/24/20 01:32 Fentanyl Drip Premix IV 0 mcg/kg/hr TITR PHILLY 0 mls/hr Titration Protocol 1 MCG/KG/HR Lorazepam 100 mg/ Sodium 100 mls @ 1 mls/hr 01/23/20 16:00 Chloride/ Miscellaneous IV Information TITR PHILLY Protocol 1 MG/HR Sodium Chloride 100 mls @ 999 mls/hr 01/24/20 10:30 Nacl 0.9% IV SILVERIO PRN Hypotension Lorazepam 2 mg 01/23/20 15:36 Ativan IV Q10MIN PRN Agitation Ondansetron HCl 4 mg 01/09/20 16:33 01/20/20 10:19 Zofran IV 4 mg Q8H PRN Administration Nausea And Vomiting Simple Syrup 15 ml 01/23/20 14:28 Simple Syrup FEEDTUBE PRN PRN Hypoglycemia Simple Syrup 30 ml 01/23/20 14:28 Simple Syrup FEEDTUBE PRN PRN Hypoglycemia Sodium Bicarbonate 325 mg 01/23/20 14:28 Sodium Bicarbonate FEEDTUBE PRN PRN For Clogged Feeding Tube Sodium Chloride 10 ml 01/09/20 22:00 01/24/20 09:09 Sodium Chloride Flush Syringe 10 Ml IV 10 ml BID PHILLY Administration Sodium Chloride 10 ml 01/09/20 16:33 Sodium Chloride Flush Syringe 10 Ml IV PRN PRN LINE FLUSH Tramadol HCl 50 mg 01/16/20 13:07 01/20/20 10:19 Ultram PO 50 mg Q12HR PRN Administration Pain, Moderate (4-6) Valsartan 80 mg 01/10/20 10:00 01/24/20 09:09 Diovan PO Not Given DAILY [facility]
[2020-01-24] MEDS ORDERED: SODIUM CHLORIDE 0.9% 250ML 250 ML ONE (17:48)
[2020-01-24] MEDS: CEFEPIME/NS 1 GM/100 ML 1 GM/100 ML BAG IV SCH (17:53)
--- NOTE | 2020-01-24 18:14 | Progress Note ---
Assessment and Plan Cultures: Blood culture 01/14/2020 no growth to date A/P: #Fever: resolved. likely due to severe COVID pneumonia. #Severe COVID pneumonia: very elevated inflammatory markers- ferritin> 2000, CRP >24, LDH> 600, d-dimer >1000 putting her at high risk for ARDS. Markers continue better, DDimer >10,000 #Acute resp failure: was on Nonrebreathing and HFO2 worsening, s/p intubation, fO2 70 p17 ([id number] on fiO2 80) #ESRD on HD #Thrombocytopenia: monitor Recs: S/p ivermectin x 1 on 01/21/2020 S/p hydroxychloroquine with zinc 5 of 5 On steroid trial On therapeutic lovenox dose -Ddimer >10,000 Continue cefepime 3 of 5 Obtain serial Ferritin, LDH, D-Dimer, CRP every 48h High risk mortality. Discussed with Dr Aiken and pharm Angela Bales MD Infectious Diseases Health Information Coder [facility] ([facility]) M [phone] Subjective Date of service: 01/24/20 Principal diagnosis: Pneumonia Interval history: Intubated fiO2 50, p14, on levophed, no fever no acute changes overnight PUI?: Yes COVID19: Positive Objective - Exam Narrative Exam: Gen: intubated sedated Head, Ears, Nose: Normocephalic, atraumatic. Oral: Limited Cardiovascular: Limited evaluation due to PPE shortage Respiratory: steph crackles GI: Limited evaluation due to PPE shortage Musculoskeletal: Limited evaluation due to PPE shortage Neurological: sedated - Constitutional Vitals: Vital Signs Temp Pulse Resp BP Pulse Ox 97.2 F L 99 H 17 132/74 84 01/24/20 17:06 01/24/20 15:56 01/24/20 13:30 01/24/20 15:56 01/24/20 15:00 Temperature -Last 24 Hours Temperature 97.2 F Temperature 98.1 F Temperature 98.1 F - Labs CBC & Chem 7: 01/23/20 Unknown 01/22/20 07:47 Labs: Abnormal lab results 01/24/20 01/24/20 01/24/20 Range/Units 04:00 04:00 04:00 D-Dimer 5783.11 H (0-234) ng/mlDDU ABG pH (7.350-7.450) pH Units ABG pO2 (80.0-90.0) mm Hg ABG HCO3 (20.0-26.0) mmol/L ABG O2 Saturation (95.0-99.0) % ABG Base Excess (-2.0-3.0) mmol/L ABG Hemoglobin (12.0-16.0) gm/dl Oxyhemoglobin (95.0-99.0) % POC Glucose (70-105) Ferritin 4195.0 H (13.0-400.0) ng/mL Lactate Dehydrogenase 474 H (91-180) units/L C-Reactive Protein 29.80 H (0.00-1.30) mg/dL 01/24/20 01/24/20 01/24/20 Range/Units 04:00 05:20 05:51 D-Dimer (0-234) ng/mlDDU ABG pH 7.188 L* 7.214 L (7.350-7.450) pH Units ABG pO2 70.8 L 71.7 L (80.0-90.0) mm Hg ABG HCO3 32.2 H 31.5 H (20.0-26.0) mmol/L ABG O2 Saturation 90.4 L 91.8 L (95.0-99.0) % ABG Base Excess (-2.0-3.0) mmol/L ABG Hemoglobin 8.5 L 9.1 L (12.0-16.0) gm/dl Oxyhemoglobin 88.1 L 89.3 L (95.0-99.0) % POC Glucose 50 L (70-105) Ferritin (13.0-400.0) ng/mL Lactate Dehydrogenase (91-180) units/L C-Reactive Protein (0.00-1.30) mg/dL 01/24/20 01/24/20 01/24/20 Range/Units 09:14 15:10 Unknown D-Dimer (0-234) ng/mlDDU ABG pH 7.291 L (7.350-7.450) pH Units ABG pO2 71.3 L (80.0-90.0) mm Hg ABG HCO3 30.6 H (20.0-26.0) mmol/L ABG O2 Saturation 93.6 L (95.0-99.0) % ABG Base Excess 3.3 H (-2.0-3.0) mmol/L ABG Hemoglobin 8.1 L (12.0-16.0) gm/dl Oxyhemoglobin 91.2 L (95.0-99.0) % POC Glucose 53 L 114 H (70-105) Ferritin (13.0-400.0) ng/mL Lactate Dehydrogenase (91-180) units/L C-Reactive Protein (0.00-1.30) mg/dL
--- NOTE | 2020-01-25 04:25 | XRay Report ---
CHEST 1 VIEW INDICATION / CLINICAL INFORMATION: Hypoxemia. COMPARISON: 01/21/2020 FINDINGS: SUPPORT DEVICES: Stable, satisfactory device positioning. HEART / MEDIASTINUM: No significant abnormality. LUNGS / PLEURA: Interval improvement of bilateral interstitial and airspace opacities. No pneumothora x. ADDITIONAL FINDINGS: No significant additional findings. IMPRESSION: 1. Improving bilateral lung disease. Signer Name: Vincent Weinstein MD Signed: 01/25/2020 4:21 AM Workstation Name: [id number]
[2020-01-25 04:45] LABS: ABG Base Excess 2.6 mmol/L (-2.0-3.0); ABG HCO3 29.7 mmol/L (20.0-26.0); ABG Methemoglobin 0.6 % (0.0-1.5); ABG Oxygen Saturation 93.2 % (95.0-99.0); ABG PCO2 61.2 mm Hg; ABG PH 7.304 pH Units (7.350-7.450); ABG PO2 69.5 mm Hg (80.0-90.0)
[2020-01-25 04:45] LABS: Hemoglobin 9.2 gm/dl (10.1-14.3); Mean Corpuscular HGB Conc 32 % (30-34); Mean Corpuscular Volume 94 fl (79-97); Platelet Count 189 K/mm3 (140-440); Red Cell Distribution Width 17.7 % (13.2-15.2)
[2020-01-25 07:16] LABS: Basophils % (Manual) 0 % (0.0-1.8); Total Cells Counted 100
[2020-01-25 07:17] LABS: Anisocytosis 1+; Platelet Estimate Consistent w Auto
[2020-01-25] MEDS ORDERED: SODIUM CHLORIDE 0.9% 100 ML IV PRN (08:29)
--- NOTE | 2020-01-25 09:17 | Progress Note ---
Assessment and Plan Assessment and plan: Suspected COVID- 19 Patient with very elevated inflammatory markers of ferritin, CRP, LDH and d- dimer. Bilateral pneumonia. Continue antibiotics per ID ARDS. Etiology secondary to above. Acute hypoxemic respiratory failure. Continue oxygen to maintain sats greater than 92% Appears stable on HFNC; wean FiO2 then flow Chest pain Stress test neg for ischemia GERD and costochondritis in differential diagnosis Volume overload s/p hemodialysis Nephrology consulted,following Acute on Chronic diastolic CHF exacerbation Secondary to volume overload End stage renal disease on dialysis Nephrology following T2DM (type 2 diabetes mellitus) Continue continue coverage Check hemoglobin A1c Hypertension Continue antihypertensives Hyponatremia Secondary to increased volume--dilutional DVT prophylaxis On heparin and GI prophylaxis 01/11 Covid 19 survey testing sent, nasal swab done 01/10 01/12 Patient has acute resp failure. may need Oxygen on dc. awaiting Covid result 01/13 Still has shortness of breath, awaiting Covid test. 01/14 Pt still dyspneic, await covid testing, Pulse ox 83% 01/16/2020. Patient remains dyspneic. Follow-up COVID testing. 01/17/2020. Patient still requiring large amounts of oxygen. Patient currently with 15 L satting at 95%. Patient with increased inflammatory markers. Follow- up chest x-ray today. 01/18/20--Patient still requiring large amounts of oxygen. Patient currently with 15 L %. Patient with increased inflammatory markers. 01/19/2020 very elevated inflammatory markers- ferritin> 2000, CRP >24, LDH> 600, d-dimer >1000 putting her at high risk for ARDS. Continue hydroxychloroquine 400 mg PO BID for 1 day then 200 mg PO BID for 4 days (total 5 days) with zinc 220 mg PO qday. Continue ceftriaxone. ContinueCOVID isolationprecautions pe r [facility]. Continue serial Ferritin, LDH, D-Dimer, CRP every 48h 01/20/2020. Inflammatory markers remain elevated with ferritin 1826, LDH 496, CRP 19.3, and d-dimer 2072. Patient requiring high flow nasal cannula 40L, FiO2 80%. Pulmonary following. Continue antibiotics and Plaquenil. Continue COVID isolationprecautions per [facility] protocol. Patient has a high risk mortality and remains guarded. 01/21/2020. Continue antibiotics and Plaquenil. Continue COVID isolationprecautions per [facility] protocol. Maintain sats of 88% and greater. Still on HFNC, O2 weaned to 95% overnight. Sats documented at 98%. Pulmonary following and reports If patient progresses could give bipap a one hour trial to see if there is improvement, repeat ABG, if not would suggest elective intubation. 01/22/2020 Patient still critically ill. Yesterday 01/20 had cardiopulmonary arrest so now intubated in ICU. Prognosis guarded. 01/23/2020 still critically ill. No more fever. Continue vent management. 01/24/20 Still critically ill, remain on vent. Continue current management. Will call . 01/25/20 Patient still critically ill. I called Davis Hernandez and gave update. He wants DNR status and says he will request withdrawal of care if patient does not get better after weekend. I discussed with Sales And Marketing Administrator. The high probability of a clinically significant, sudden or life threatening deterioration of the [immunologic and respiratory] system(s) required my full and direct attention, intervention and personal management. The aggregate critical care time was [31] minutes. This time is in addition to time spent performing reported procedures but includes the following: [x] Data Review and interpretation [x] Patient assessment and monitoring of vital signs [x] Documentation [x] Medication orders and management History Interval history: Patient initially presented with chest tightness, SOB Now diagnosed with Covid-19 infection,acute resp failure, intubated requests DNR status PUI?: Yes COVID19: Positive Hospitalist Physical - Physical exam Narrative exam: GEN: Intubated, HEENT: Normocephalic, atraumatic, Neck: supple, No JVD Lungs: Bilateral crackles, heart;S1 and S2 reg, no murmurs, rubs or gallop Abd:soft, non tender, non distended, normal bowel sounds Ext: No edema, no clubbing, no cyanosis, Neuro: intubated, unresponsive - Constitutional Vitals: Temp Pulse Resp BP Pulse Ox 98.7 F 97 H 19 133/65 96 01/25/20 08:00 01/25/20 09:01 01/25/20 08:00 01/25/20 08:00 01/25/20 09:01 General appearance: Present: no acute distress BREEZY score - Breezy Score Age > 65: (1) Yes Aspirin use within the Past 7 Days: (1) Yes 3 or more CAD Risk Factors: (1) Yes 2 or more Angina events in past 24 hrs: (1) Yes Known CAD with more than 50% Stenosis: (0) No Elevated Cardiac Markers: (0) No ST Deviation Greater than 0.5mm: (0) No BREEZY Score: 4 Results - Labs CBC & Chem 7: 01/25/20 03:50 01/22/20 07:47 Labs: Laboratory Last Values WBC 13.0 K/mm3 (4.5-11.0) H 01/25/20 03:50 RBC 3.10 M/mm3 (3.65-5.03) L 01/25/20 03:50 Hgb 9.2 gm/dl (10.1-14.3) L 01/25/20 03:50 Hct 29.0 % (30.3-42.9) L 01/25/20 03:50 MCV 94 fl (79-97) 01/25/20 03:50 MCH 30 pg (28-32) 01/25/20 03:50 MCHC 32 % (30-34) 01/25/20 03:50 RDW 17.7 % (13.2-15.2) H 01/25/20 03:50 Plt Count 189 K/mm3 (140-440) 01/25/20 03:50 Lymph % (Auto) 3.8 % (13.4-35.0) L 01/18/20 06:25 [place] % (Auto) 6.5 % (0.0-7.3) 01/18/20 06:25 Eos % (Auto) 0.8 % (0.0-4.3) 01/18/20 06:25 Baso % (Auto) 0.1 % (0.0-1.8) 01/18/20 06:25 Lymph # 0.2 K/mm3 (1.2-5.4) L 01/18/20 06:25 [place] # 0.4 K/mm3 (0.0-0.8) 01/18/20 06:25 Eos # 0.0 K/mm3 (0.0-0.4) 01/18/20 06:25 Baso # 0.0 K/mm3 (0.0-0.1) 01/18/20 06:25 Add Manual Diff Complete 01/25/20 03:50 Total Counted 100 01/25/20 03:50 Seg Neutrophils % Passenger Service Agent 01/25/20 03:50 Seg Neuts % (Manual) 92.0 % (40.0-70.0) H 01/25/20 03:50 Band Neutrophils % 0 % 01/25/20 03:50 Lymphocytes % (Manual) 5.0 % (13.4-35.0) L 01/25/20 03:50 Reactive Lymphs % (Man) 0 % 01/25/20 03:50 Monocytes % (Manual) 2.0 % (0.0-7.3) 01/25/20 03:50 Eosinophils % (Manual) 1.0 % (0.0-4.3) 01/25/20 03:50 Basophils % (Manual) 0 % (0.0-1.8) 01/25/20 03:50 Metamyelocytes % 0 % 01/25/20 03:50 Myelocytes % 0 % 01/25/20 03:50 Promyelocytes % 0 % 01/25/20 03:50 Blast Cells % 0 % 01/25/20 03:50 Nucleated RBC % Not Reportable 01/25/20 03:50 Seg Neutrophils # 5.0 K/mm3 (1.8-7.7) 01/18/20 06:25 Seg Neutrophils # Man 12.0 K/mm3 (1.8-7.7) H 01/25/20 03:50 Band Neutrophils # 0.0 K/mm3 01/25/20 03:50 Lymphocytes # (Manual) 0.7 K/mm3 (1.2-5.4) L 01/25/20 03:50 Abs React Lymphs (Man) 0.0 K/mm3 01/25/20 03:50 Monocytes # (Manual) 0.3 K/mm3 (0.0-0.8) 01/25/20 03:50 Eosinophils # (Manual) 0.1 K/mm3 (0.0-0.4) 01/25/20 03:50 Basophils # (Manual) 0.0 K/mm3 (0.0-0.1) 01/25/20 03:50 Metamyelocytes # 0.0 K/mm3 01/25/20 03:50 Myelocytes # 0.0 K/mm3 01/25/20 03:50 Promyelocytes # 0.0 K/mm3 01/25/20 03:50 Blast Cells # 0.0 K/mm3 01/25/20 03:50 WBC Morphology Not Reportable 01/25/20 03:50 Hypersegmented Neuts Not Reportable 01/25/20 03:50 Hyposegmented Neuts Not Reportable 01/25/20 03:50 Hypogranular Neuts Not Reportable 01/25/20 03:50 Smudge Cells Not Reportable 01/25/20 03:50 Toxic Granulation Not Reportable 01/25/20 03:50 Toxic Vacuolation Not Reportable 01/25/20 03:50 Dohle Bodies Not Reportable 01/25/20 03:50 Pelger-Huet Anomaly Not Reportable 01/25/20 03:50 Armando Rods Not Reportable 01/25/20 03:50 Platelet Estimate Consistent w auto 01/25/20 03:50 Clumped Platelets Not Reportable 01/25/20 03:50 Plt Clumps, EDTA Not Reportable 01/25/20 03:50 Large Platelets Not Reportable 01/25/20 03:50 Giant Platelets Not Reportable 01/25/20 03:50 Platelet Satelliting Not Reportable 01/25/20 03:50 Plt Morphology Comment Not Reportable 01/25/20 03:50 RBC Morphology Not Reportable 01/25/20 03:50 Dimorphic RBCs Not Reportable 01/25/20 03:50 Polychromasia Not Reportable 01/25/20 03:50 Hypochromasia Not Reportable 01/25/20 03:50 Poikilocytosis Not Reportable 01/25/20 03:50 Anisocytosis 1+ 01/25/20 03:50 Microcytosis Not Reportable 01/25/20 03:50 Macrocytosis Not Reportable 01/25/20 03:50 Spherocytes Not Reportable 01/25/20 03:50 Pappenheimer Bodies Not Reportable 01/25/20 03:50 Sickle Cells Not Reportable 01/25/20 03:50 Target Cells Not Reportable 01/25/20 03:50 Tear Drop Cells Not Reportable 01/25/20 03:50 Ovalocytes Not Reportable 01/25/20 03:50 Helmet Cells Not Reportable 01/25/20 03:50 [place] Bodies Not Reportable 01/25/20 03:50 [place] Rings Not Reportable 01/25/20 03:50 Karen Cells Not Reportable 01/25/20 03:50 Bite Cells Not Reportable 01/25/20 03:50 Crenated Cell Not Reportable 01/25/20 03:50 Elliptocytes Not Reportable 01/25/20 03:50 Acanthocytes (Spur) Not Reportable 01/25/20 03:50 Rouleaux Not Reportable 01/25/20 03:50 Hemoglobin C Crystals Not Reportable 01/25/20 03:50 Schistocytes Not Reportable 01/25/20 03:50 Malaria parasites Not Reportable 01/25/20 03:50 Ney Bodies Not Reportable 01/25/20 03:50 Hem Pathologist Commnt No 01/25/20 03:50 PT 15.6 Sec. (12.2-14.9) H 01/09/20 12:55 INR 1.22 (0.87-1.13) H 01/09/20 12:55 APTT 31.5 Sec. (24.2-36.6) 01/09/20 12:55 D-Dimer 5783.11 ng/mlDDU (0-234) H 01/24/20 04:00 Heparin Anti-Xa Level < 0.10 U.I./ml (0.3-0.7) L 01/23/20 Unknown ABG pH 7.304 pH Units (7.350-7.450) L 01/25/20 04:22 ABG pCO2 61.2 mm Hg 01/25/20 04:22 ABG pO2 69.5 mm Hg (80.0-90.0) L 01/25/20 04:22 ABG HCO3 29.7 mmol/L (20.0-26.0) H 01/25/20 04:22 ABG O2 Saturation 93.2 % (95.0-99.0) L 01/25/20 04:22 ABG O2 Content 11.2 (0.0-44) 01/25/20 04:22 ABG Base Excess 2.6 mmol/L (-2.0-3.0) 01/25/20 04:22 ABG Hemoglobin 8.7 gm/dl (12.0-16.0) L 01/25/20 04:22 ABG Carboxyhemoglobin 2.1 % (0.0-5.0) 01/25/20 04:22 ABG Methemoglobin 0.6 % (0.0-1.5) 01/25/20 04:22 Oxyhemoglobin 90.7 % (95.0-99.0) L 01/25/20 04:22 FiO2 60 % 01/25/20 04:22 Sodium 139 mmol/L (137-145) 01/22/20 07:47 Potassium 4.8 mmol/L (3.6-5.0) 01/22/20 07:47 Chloride 94.3 mmol/L (98-107) L 01/22/20 07:47 Carbon Dioxide 24 mmol/L (22-30) 01/22/20 07:47 Anion Gap 26 mmol/L 01/22/20 07:47 BUN 53 mg/dL (7-17) H 01/22/20 07:47 Creatinine 6.5 mg/dL (0.7-1.2) H 01/22/20 07:47 Estimated GFR 8 ml/min 01/22/20 07:47 BUN/Creatinine Ratio 8 % 01/22/20 07:47 Glucose 72 mg/dL (65-100) 01/22/20 07:47 POC Glucose 136 (70-105) H 01/25/20 06:05 Hemoglobin A1c 5.0 % (4-6) 01/10/20 06:54 Calcium 9.0 mg/dL (8.4-10.2) 01/22/20 07:47 Phosphorus 3.30 mg/dL (2.5-4.5) 01/12/20 16:01 Magnesium 2.00 mg/dL (1.7-2.3) 01/13/20 06:11 Ferritin 4195.0 ng/mL (13.0-400.0) H 01/24/20 04:00 Total Bilirubin 0.30 mg/dL (0.1-1.2) 01/10/20 06:54 AST 30 units/L (5-40) 01/10/20 06:54 ALT 24 units/L (7-56) 01/10/20 06:54 Alkaline Phosphatase 148 units/L (35-129) H 01/10/20 06:54 Lactate Dehydrogenase 474 units/L (91-180) H 01/24/20 04:00 Troponin T 0.315 ng/mL (0.00-0.029) H* 01/10/20 06:54 C-Reactive Protein 29.80 mg/dL (0.00-1.30) H 01/24/20 04:00 NT-Pro-B Natriuret Pep 43691 pg/mL (0-900) H 01/09/20 12:55 Total Protein 5.4 g/dL (6.3-8.2) L 01/10/20 06:54 Albumin 2.7 g/dL (3.9-5) L 01/10/20 06:54 Albumin/Globulin Ratio 1.0 % 01/10/20 06:54 Triglycerides 81 mg/dL (2-149) 01/24/20 04:00 Cholesterol 123 mg/dL (50-199) 01/09/20 12:55 LDL Cholesterol Direct 66 mg/dL (50-130) 01/09/20 12:55 HDL Cholesterol 47 mg/dL (40-59) 01/09/20 12:55 Cholesterol/HDL Ratio 2.61 % 01/09/20 12:55 Hepatitis A IgM Ab Non-reactive (NonReactive) 01/21/20 23:40 Hep Bs Antigen Non-reactive (Negative) 01/21/20 23:40 Hep B Core IgM Ab Non-reactive (NonReactive) 01/21/20 23:40 Hepatitis C Antibody Non-reactive (NonReactive) 01/21/20 23:40 Miscellaneous Test See scanned result 01/11/20 Unknown Miscellaneous Test See scanned result 01/11/20 Unknown Pleitez/IV: Voiding Method Toilet IV Catheter Type [Left Chest] Infusaport IV Catheter Type [Right Peripheral IV External Jugular] IV Catheter Type [Left INT / Saline Lock External Jugular] IV Catheter Type [Left Upper IVAD / Port arm] Active Medications - Current Medications Current Medications: Generic Name Dose Route Start Last Admin Trade Name Freq PRN Reason Stop Dose Admin Acetaminophen 650 mg 01/09/20 16:33 01/12/20 18:23 Tylenol PO 650 mg Q4H PRN Administration Pain MILD(1-3)/Fever >100.5/MEANS Lipase/Protease/Amylase 1 each 01/23/20 14:[address] 10,500 Unit FEEDTUBE PRN PRN For Clogged Feeding Tube Atorvastatin Calcium 40 mg 01/09/20 22:00 01/24/20 21:13 Lipitor PO 40 mg QHS PHILLY Administration Cyclobenzaprine HCl 5 mg 01/09/20 16:27 01/10/20 23:17 Flexeril PO 5 mg QHS PRN Administration Muscle Spasm Dextrose 50 ml 01/23/20 07:26 01/24/20 18:29 D50w (25gm) Syringe IV 50 ml Q30MIN PRN Administration BLOOD GLUCOSE < 70 Dextrose 25 ml 01/24/20 08:58 01/24/20 13:41 D50w (25gm) Syringe IV 25 ml Q4H PRN Administration BG < 80 MG/DL Diphenhydramine HCl 25 mg 01/09/20 16:15 01/12/20 00:50 Benadryl PO 25 mg Q8HR PRN Administration Itching Duloxetine HCl 30 mg 01/09/20 17:00 01/24/20 09:07 Cymbalta PO 30 mg QDAY PHILLY Administration Enoxaparin Sodium 80 mg 01/23/20 12:00 01/24/20 09:08 Enoxaparin SUB-Q 80 mg Q24HR PHILLY Administration Famotidine 20 mg 01/09/20 22:00 01/24/20 09:07 Pepcid PO 20 mg DAILY PHILLY Administration Fentanyl 50 mcg 01/23/20 15:36 01/23/20 15:54 Sublimaze IV 50 mcg Q10MIN PRN Administration ANALGESIA Cefepime HCl 1 gm in 100 mls @ 200 mls/hr 01/21/20 18:00 01/24/20 17:53 Cefepime/Ns 1 Gm/100 Ml IV 01/25/20 18:29 200 mls/hr QPM PHILLY Administration Norepinephrine 4 mg in 250 mls @ 7.5 mls/hr 01/21/20 18:00 01/25/20 08:33 Levophed Drip 4 Mg/Ns 250 Ml IV 2 mcg/min TITR PHILLY 7.5 mls/hr Titration Protocol 2 MCG/MIN Propofol 1,000 mg in 100 mls @ 2.265 mls/hr 01/22/20 09:00 01/25/20 08:26 Diprivan 10 Mg/Ml IV 15 mcg/kg/min TITR PHILLY 6.795 mls/hr Administration Protocol 5 MCG/KG/MIN Fentanyl Citrate 2,000 mcg in 100 mls @ 3.775 mls/hr 01/23/20 16:00 01/24/20 01:32 Fentanyl Drip Premix IV 0 mcg/kg/hr TITR PHILLY 0 mls/hr Titration Protocol 1 MCG/KG/HR Lorazepam 100 mg/ Sodium 100 mls @ 1 mls/hr 01/23/20 16:00 Chloride/ Miscellaneous IV Information TITR PHILLY Protocol 1 MG/HR Sodium Chloride 100 mls @ 999 mls/hr 01/25/20 08:29 Nacl 0.9% IV SILVERIO PRN Hypotension Lorazepam 2 mg 01/23/20 15:36 Ativan IV Q10MIN PRN Agitation Ondansetron HCl 4 mg 01/09/20 16:33 01/20/20 10:19 Zofran IV 4 mg Q8H PRN Administration Nausea And Vomiting Simple Syrup 15 ml 01/23/20 14:28 Simple Syrup FEEDTUBE PRN PRN Hypoglycemia Simple Syrup 30 ml 01/23/20 14:28 Simple Syrup FEEDTUBE PRN PRN Hypoglycemia Sodium Bicarbonate 325 mg 01/23/20 14:28 Sodium Bicarbonate FEEDTUBE PRN PRN For Clogged Feeding Tube Sodium Chloride 10 ml 01/09/20 22:00 01/24/20 21:14 Sodium Chloride Flush Syringe 10 Ml IV 10 ml BID PHILLY Administration Sodium Chloride 10 ml 01/09/20 16:33 Sodium Chloride Flush Syringe 10 Ml IV PRN PRN LINE FLUSH Tramadol HCl 50 mg 01/16/20 13:07 01/20/20 10:19 Ultram PO 50 mg Q12HR PRN Administration Pain, Moderate (4-6) Valsartan 80 mg 01/10/20 10:00 01/24/20 09:09 Diovan PO Not Given DAILY [facility] Nutrition/Malnutrition Assess - Dietary Evaluation Nutrition/Malnutrition Findings: Nutrition Notes Start: 01/17/20 13:49 Freq: Status: Active Protocol: Document 01/23/20 14:19 LM (Rec: 01/23/20 14:27 LM [id number]) Nutrition Notes Initial or Follow up Reassessment Current Diagnosis CKD (stage V CKD),Diabetes, Hypertension,Heart Failure, Respiratory Failure Other Pertinent Diagnosis Bilat pneu, COVID-19 (+), ARDS , volume overload, Chest pain Current Diet Renal + Nepro BID Labs/Tests POC glu 127 Pertinent Medications Propofol at 2.265ml/hr (60 kcal) Height 5 ft 6 in Weight 75.5 kg [place] Body Weight (kg) 59.09 BMI 26.9 Subjective/Other Information MD consult for TF. Pt now on vent. Burn Absent Trauma Absent Current % PO Negligible Minimum of two criteria Yes Interpretation of Weight Loss (non- 5% in 1 month severe) Fluid Accumulation Mild (non-severe) Reduced Desktop Publisher Strength Measurably Reduced (severe) #1 Nutrition Diagnosis Malnutrition Diagnosis Progress(for reassessment Continues documentation) Is patient on ventilator? No Is Patient Ambulatory and/or Out of Bed No REE-([facility]-confined to bed) 9821.466 Calculation Used for Recommendations [facility] Additional Notes Protein: 91-151g (1.2-2g/kg) Fluid: per MD Nutrition Intervention Change Diet Order: TF Nutrition Support: Nepro 1.8 at 35ml/hr (goal rate) Flush 150ml q4h Kcal 1,512 Protein (gm) 68 Fluid (mL) 611 Goal #1 TF start/tolerance Anticipated Discharge Needs: unable to determine at this time Follow-Up By: 01/25/20 Additional Comments F/U for TF start/tolerance
[2020-01-25] MEDS: FAMOTIDINE 20 MG TAB PO SCH (09:46)
[2020-01-25] MEDS: VALSARTAN 40 MG TAB PO SCH (09:47)
[2020-01-25] MEDS: DULoxetine 30 MG CAP PO SCH (09:47)
[2020-01-25] MEDS: ENOXAPARIN 80 MG/0.8 ML INJ SUB-Q SCH (09:48)
--- NOTE | 2020-01-25 10:21 | Progress Note ---
Assessment and Plan 64 y/o female with COVID positive, viral pneumonia with some pulmonary vascular congestion superimposed. 1. Continue to wean FiO2 for sats >88%. FiO2 was increased with no explanation in charting. Asked RT to decrease again today. 2. HD per renal. UF is definitely helping as changes can be seen in CXR. Hopeful they will do again today and will increase pressors to whatever is needed to get more volume off. 3. Changed back to prophylactic dosing for VTE as not confirmed the presence of VTE 4. Overall prognosis is guarded to poor, especially with prior history of ESRD on HD. Continue supportive care. CCT 31 minutes. Subjective Date of service: 01/25/20 Principal diagnosis: Pneumonia Interval history: NO acute events. FiO2 did not get dropped to 50%. CXR actually improving. PUI?: Yes COVID19: Positive Objective Vital Signs - 12hr 01/24/20 01/24/20 01/24/20 22:30 22:45 23:00 Temperature Pulse Rate 92 H 93 H 94 H Pulse Rate [ From Monitor] Respiratory 17 11 L 10 L Rate Blood Pressure 118/68 118/70 122/65 O2 Sat by Pulse 94 95 95 Oximetry 01/24/20 01/24/20 01/24/20 23:02 23:15 23:30 Temperature Pulse Rate 99 H 94 H 94 H Pulse Rate [ From Monitor] Respiratory 14 11 L 10 L Rate Blood Pressure 118/70 111/61 119/67 O2 Sat by Pulse 97 95 95 Oximetry 01/24/20 01/25/20 01/25/20 23:45 00:00 00:10 Temperature 99.4 F Pulse Rate 95 H 94 H 98 H Pulse Rate [ 93 H From Monitor] Respiratory 10 L 10 L Rate Blood Pressure 115/65 120/63 131/59 O2 Sat by Pulse 94 95 94 Oximetry 01/25/20 01/25/20 01/25/20 00:15 00:30 00:45 Temperature Pulse Rate 94 H 92 H 97 H Pulse Rate [ From Monitor] Respiratory 11 L 13 13 Rate Blood Pressure 120/64 118/55 114/59 O2 Sat by Pulse 95 94 95 Oximetry 01/25/20 01/25/20 01/25/20 01:00 01:15 01:30 Temperature Pulse Rate 91 H 92 H 92 H Pulse Rate [ From Monitor] Respiratory 18 14 16 Rate Blood Pressure 106/50 115/55 115/54 O2 Sat by Pulse 93 93 94 Oximetry 01/25/20 01/25/20 01/25/20 01:45 02:00 02:15 Temperature Pulse Rate 93 H 93 H 94 H Pulse Rate [ From Monitor] Respiratory 13 15 16 Rate Blood Pressure 118/58 122/54 116/56 O2 Sat by Pulse 94 94 94 Oximetry 01/25/20 01/25/20 01/25/20 02:30 02:45 03:00 Temperature Pulse Rate 94 H 95 H 95 H Pulse Rate [ From Monitor] Respiratory 16 15 17 Rate Blood Pressure 128/56 118/55 120/57 O2 Sat by Pulse 94 94 94 Oximetry 01/25/20 01/25/20 01/25/20 03:15 03:19 03:30 Temperature Pulse Rate 95 H 95 H 95 H Pulse Rate [ From Monitor] Respiratory 17 12 Rate Blood Pressure 131/59 128/61 O2 Sat by Pulse 93 94 93 Oximetry 01/25/20 01/25/20 01/25/20 03:45 04:00 04:15 Temperature 99.5 F Pulse Rate 95 H 92 H 96 H Pulse Rate [ From Monitor] Respiratory 14 13 11 L Rate Blood Pressure 132/64 125/56 130/63 O2 Sat by Pulse 93 92 94 Oximetry 01/25/20 01/25/20 01/25/20 04:30 04:45 05:00 Temperature Pulse Rate 98 H 96 H 95 H Pulse Rate [ From Monitor] Respiratory 18 15 21 Rate Blood Pressure 141/73 119/58 114/57 O2 Sat by Pulse 96 94 94 Oximetry 01/25/20 01/25/20 01/25/20 05:15 05:30 05:45 Temperature Pulse Rate 94 H 93 H 92 H Pulse Rate [ From Monitor] Respiratory 17 20 18 Rate Blood Pressure 106/60 117/58 119/54 O2 Sat by Pulse 93 92 93 Oximetry 01/25/20 01/25/20 01/25/20 06:00 06:15 06:30 Temperature Pulse Rate 93 H 93 H 92 H Pulse Rate [ From Monitor] Respiratory 16 21 16 Rate Blood Pressure 114/54 124/55 110/53 O2 Sat by Pulse 93 92 94 Oximetry 01/25/20 01/25/20 01/25/20 06:45 07:00 07:15 Temperature Pulse Rate 92 H 97 H 95 H Pulse Rate [ From Monitor] Respiratory 19 13 23 Rate Blood Pressure 101/54 111/61 116/68 O2 Sat by Pulse 93 94 94 Oximetry 01/25/20 01/25/20 01/25/20 07:30 07:45 08:00 Temperature 98.7 F Pulse Rate 96 H 97 H 97 H Pulse Rate [ 97 H From Monitor] Respiratory 18 21 19 Rate Blood Pressure 121/63 128/64 133/65 O2 Sat by Pulse 94 94 94 Oximetry 01/25/20 01/25/20 01/25/20 08:15 08:30 08:45 Temperature Pulse Rate 100 H 95 H 97 H Pulse Rate [ From Monitor] Respiratory 17 15 19 Rate Blood Pressure 127/64 119/63 126/66 O2 Sat by Pulse 94 93 94 Oximetry 01/25/20 01/25/20 01/25/20 09:00 09:01 09:15 Temperature Pulse Rate 97 H 97 H 98 H Pulse Rate [ From Monitor] Respiratory 18 15 Rate Blood Pressure 131/66 130/65 O2 Sat by Pulse 93 96 93 Oximetry 01/25/20 01/25/20 01/25/20 09:30 09:45 09:47 Temperature Pulse Rate 98 H 96 H Pulse Rate [ From Monitor] Respiratory 21 14 Rate Blood Pressure 130/64 124/63 124/63 O2 Sat by Pulse 94 93 Oximetry Constitutional: other (orally intubated, not sedated currently on vent) Eyes: non-icteric ENT: oropharynx moist Neck: supple Effort: normal Ascultation: Bilateral: rales Cardiovascular: regular rate and rhythm (no mrg) Gastrointestinal: normoactive bowel sounds, soft, non-tender, non-distended Integumentary: normal Extremities: no cyanosis, no edema, pink and warm Neurologic: normal mental status, non-focal exam, pupils equal and round, CN II- XII normal Psychiatric: mood appropriate, affect normal CBC and BMP: 01/25/20 03:50 01/22/20 07:47 ABG, PT/INR, D-dimer: ABG ABG pH 7.304 pH Units (7.350-7.450) L 01/25/20 04:22 ABG pCO2 61.2 mm Hg 01/25/20 04:22 ABG pO2 69.5 mm Hg (80.0-90.0) L 01/25/20 04:22 ABG O2 Saturation 93.2 % (95.0-99.0) L 01/25/20 04:22 PT/INR, D-dimer PT 15.6 Sec. (12.2-14.9) H 01/09/20 12:55 INR 1.22 (0.87-1.13) H 01/09/20 12:55 D-Dimer 5783.11 ng/mlDDU (0-234) H 01/24/20 04:00 Abnormal lab findings: Abnormal Labs 01/09/20 01/09/20 01/09/20 12:55 12:55 12:55 WBC 4.4 L RBC 3.44 L Hgb Hct RDW 17.0 H Plt Count Lymph % (Auto) 6.8 L [place] % (Auto) 13.6 H Lymph # 0.3 L Seg Neutrophils % 79.0 H Seg Neuts % (Manual) Lymphocytes % (Manual) Seg Neutrophils # Man Lymphocytes # (Manual) PT 15.6 H INR 1.22 H D-Dimer Heparin Anti-Xa Level ABG pH ABG pO2 ABG HCO3 ABG O2 Saturation ABG Base Excess ABG Hemoglobin Oxyhemoglobin Sodium 130 L Chloride 88.9 L Carbon Dioxide 20 L BUN 41 H Creatinine 7.6 H Glucose 115 H POC Glucose Calcium Magnesium Ferritin Alkaline Phosphatase 153 H Lactate Dehydrogenase Troponin T 0.382 H* C-Reactive Protein NT-Pro-B Natriuret Pep 74987 H Total Protein Albumin 3.2 L 01/09/20 01/10/20 01/10/20 20:14 00:16 06:54 WBC 3.3 L RBC 3.00 L Hgb 9.2 L Hct 27.8 L RDW 17.2 H Plt Count Lymph % (Auto) 8.9 L [place] % (Auto) 11.5 H Lymph # 0.3 L Seg Neutrophils % 79.1 H Seg Neuts % (Manual) Lymphocytes % (Manual) Seg Neutrophils # Man Lymphocytes # (Manual) PT INR D-Dimer Heparin Anti-Xa Level ABG pH ABG pO2 ABG HCO3 ABG O2 Saturation ABG Base Excess ABG Hemoglobin Oxyhemoglobin Sodium Chloride Carbon Dioxide BUN Creatinine Glucose POC Glucose Calcium Magnesium Ferritin Alkaline Phosphatase Lactate Dehydrogenase Troponin T 0.349 H* 0.328 H* C-Reactive Protein NT-Pro-B Natriuret Pep Total Protein Albumin 01/10/20 01/10/20 01/11/20 06:54 06:54 16:45 WBC RBC Hgb Hct RDW Plt Count Lymph % (Auto) [place] % (Auto) Lymph # Seg Neutrophils % Seg Neuts % (Manual) Lymphocytes % (Manual) Seg Neutrophils # Man Lymphocytes # (Manual) PT INR D-Dimer Heparin Anti-Xa Level ABG pH ABG pO2 ABG HCO3 ABG O2 Saturation ABG Base Excess ABG Hemoglobin Oxyhemoglobin Sodium 133 L Chloride 90.6 L Carbon Dioxide BUN 50 H Creatinine 8.4 H Glucose 101 H POC Glucose 106 H Calcium 8.1 L Magnesium Ferritin Alkaline Phosphatase 148 H Lactate Dehydrogenase Troponin T 0.315 H* C-Reactive Protein NT-Pro-B Natriuret Pep Total Protein 5.4 L Albumin 2.7 L 01/12/20 01/13/20 01/13/20 16:01 06:11 06:11 WBC 3.1 L RBC 3.25 L Hgb 9.8 L Hct RDW 17.2 H Plt Count 136 L Lymph % (Auto) [place] % (Auto) Lymph # Seg Neutrophils % Seg Neuts % (Manual) Lymphocytes % (Manual) Seg Neutrophils # Man Lymphocytes # (Manual) PT INR D-Dimer Heparin Anti-Xa Level ABG pH ABG pO2 ABG HCO3 ABG O2 Saturation ABG Base Excess ABG Hemoglobin Oxyhemoglobin Sodium 135 L Chloride 93.4 L Carbon Dioxide BUN 19 H Creatinine 4.5 H Glucose 120 H POC Glucose Calcium 7.8 L Magnesium 1.40 L Ferritin Alkaline Phosphatase Lactate Dehydrogenase Troponin T C-Reactive Protein NT-Pro-B Natriuret Pep Total Protein Albumin 01/16/20 01/16/20 01/16/20 08:35 11:49 14:11 WBC RBC Hgb Hct RDW Plt Count Lymph % (Auto) [place] % (Auto) Lymph # Seg Neutrophils % Seg Neuts % (Manual) Lymphocytes % (Manual) Seg Neutrophils # Man Lymphocytes # (Manual) PT INR D-Dimer Heparin Anti-Xa Level ABG pH ABG pO2 48.4 L ABG HCO3 30.5 H ABG O2 Saturation 81.9 L ABG Base Excess 4.6 H ABG Hemoglobin 10.5 L Oxyhemoglobin 80.1 L Sodium Chloride Carbon Dioxide BUN Creatinine Glucose POC Glucose 126 H 119 H Calcium Magnesium Ferritin Alkaline Phosphatase Lactate Dehydrogenase Troponin T C-Reactive Protein NT-Pro-B Natriuret Pep Total Protein Albumin 01/16/20 01/16/20 01/16/20 15:38 15:38 15:38 WBC RBC Hgb Hct RDW Plt Count Lymph % (Auto) [place] % (Auto) Lymph # Seg Neutrophils % Seg Neuts % (Manual) Lymphocytes % (Manual) Seg Neutrophils # Man Lymphocytes # (Manual) PT INR D-Dimer 1104.64 H Heparin Anti-Xa Level ABG pH ABG pO2 ABG HCO3 ABG O2 Saturation ABG Base Excess ABG Hemoglobin Oxyhemoglobin Sodium Chloride Carbon Dioxide BUN Creatinine Glucose POC Glucose Calcium Magnesium Ferritin > 2000.0 H Alkaline Phosphatase Lactate Dehydrogenase 690 H Troponin T C-Reactive Protein 24.10 H NT-Pro-B Natriuret Pep Total Protein Albumin 01/16/20 01/18/20 01/18/20 18:11 06:25 06:25 WBC RBC 3.15 L Hgb 9.4 L Hct 29.4 L RDW 17.5 H Plt Count 135 L Lymph % (Auto) 3.8 L [place] % (Auto) Lymph # 0.2 L Seg Neutrophils % 88.8 H Seg Neuts % (Manual) Lymphocytes % (Manual) Seg Neutrophils # Man Lymphocytes # (Manual) PT INR D-Dimer Heparin Anti-Xa Level ABG pH ABG pO2 ABG HCO3 ABG O2 Saturation ABG Base Excess ABG Hemoglobin Oxyhemoglobin Sodium Chloride 96.8 L Carbon Dioxide BUN 26 H Creatinine 4.2 H Glucose 115 H POC Glucose 130 H Calcium 8.2 L Magnesium Ferritin Alkaline Phosphatase Lactate Dehydrogenase 537 H Troponin T C-Reactive Protein 17.10 H NT-Pro-B Natriuret Pep Total Protein Albumin 01/18/20 01/18/20 01/18/20 06:25 06:25 12:15 WBC RBC Hgb Hct RDW Plt Count Lymph % (Auto) [place] % (Auto) Lymph # Seg Neutrophils % Seg Neuts % (Manual) Lymphocytes % (Manual) Seg Neutrophils # Man Lymphocytes # (Manual) PT INR D-Dimer 938.03 H Heparin Anti-Xa Level ABG pH ABG pO2 66.5 L ABG HCO3 30.1 H ABG O2 Saturation 93.2 L ABG Base Excess 4.6 H ABG Hemoglobin 10.0 L Oxyhemoglobin 91.3 L Sodium Chloride Carbon Dioxide BUN Creatinine Glucose POC Glucose Calcium Magnesium Ferritin 3105.0 H Alkaline Phosphatase Lactate Dehydrogenase Troponin T C-Reactive Protein NT-Pro-B Natriuret Pep Total Protein Albumin 01/20/20 01/20/20 01/20/20 07:37 07:37 07:37 WBC RBC Hgb Hct RDW Plt Count Lymph % (Auto) [place] % (Auto) Lymph # Seg Neutrophils % Seg Neuts % (Manual) Lymphocytes % (Manual) Seg Neutrophils # Man Lymphocytes # (Manual) PT INR D-Dimer 2072.25 H Heparin Anti-Xa Level ABG pH ABG pO2 ABG HCO3 ABG O2 Saturation ABG Base Excess ABG Hemoglobin Oxyhemoglobin Sodium Chloride Carbon Dioxide BUN Creatinine Glucose POC Glucose Calcium Magnesium Ferritin 1826.0 H Alkaline Phosphatase Lactate Dehydrogenase 496 H Troponin T C-Reactive Protein 19.30 H NT-Pro-B Natriuret Pep Total Protein Albumin 01/20/20 01/21/20 01/21/20 17:30 03:59 17:35 WBC RBC Hgb Hct RDW Plt Count Lymph % (Auto) [place] % (Auto) Lymph # Seg Neutrophils % Seg Neuts % (Manual) Lymphocytes % (Manual) Seg Neutrophils # Man Lymphocytes # (Manual) PT INR D-Dimer Heparin Anti-Xa Level ABG pH ABG pO2 61.1 L 67.4 L ABG HCO3 29.9 H 26.2 H ABG O2 Saturation 91.7 L 93.4 L ABG Base Excess 4.9 H ABG Hemoglobin 9.0 L 9.1 L Oxyhemoglobin 89.5 L 91.1 L Sodium 136 L Chloride Carbon Dioxide BUN 36 H Creatinine 4.9 H Glucose POC Glucose Calcium Magnesium Ferritin Alkaline Phosphatase Lactate Dehydrogenase Troponin T C-Reactive Protein NT-Pro-B Natriuret Pep Total Protein Albumin 01/21/20 01/22/20 01/22/20 Unknown 03:41 03:41 WBC RBC Hgb Hct RDW Plt Count Lymph % (Auto) [place] % (Auto) Lymph # Seg Neutrophils % Seg Neuts % (Manual) Lymphocytes % (Manual) Seg Neutrophils # Man Lymphocytes # (Manual) PT INR D-Dimer Heparin Anti-Xa Level ABG pH 7.465 H ABG pO2 48.9 L ABG HCO3 26.6 H ABG O2 Saturation 85.7 L ABG Base Excess ABG Hemoglobin 10.4 L Oxyhemoglobin 83.5 L Sodium Chloride Carbon Dioxide BUN Creatinine Glucose POC Glucose Calcium Magnesium Ferritin 6071.0 H Alkaline Phosphatase Lactate Dehydrogenase 963 H Troponin T C-Reactive Protein 30.00 H NT-Pro-B Natriuret Pep Total Protein Albumin 01/22/20 01/22/20 01/22/20 03:41 07:47 11:20 WBC RBC Hgb Hct RDW Plt Count Lymph % (Auto) [place] % (Auto) Lymph # Seg Neutrophils % Seg Neuts % (Manual) Lymphocytes % (Manual) Seg Neutrophils # Man Lymphocytes # (Manual) PT INR D-Dimer > 11224 H Heparin Anti-Xa Level ABG pH ABG pO2 66.7 L ABG HCO3 28.7 H ABG O2 Saturation 91.9 L ABG Base Excess ABG Hemoglobin 9.1 L Oxyhemoglobin 89.5 L Sodium Chloride 94.3 L Carbon Dioxide BUN 53 H Creatinine 6.5 H Glucose POC Glucose Calcium Magnesium Ferritin Alkaline Phosphatase Lactate Dehydrogenase Troponin T C-Reactive Protein NT-Pro-B Natriuret Pep Total Protein Albumin 01/22/20 01/22/20 01/23/20 11:49 Unknown 04:55 WBC 15.1 H RBC 3.05 L Hgb 8.8 L Hct 28.3 L RDW 17.8 H Plt Count 125 L Lymph % (Auto) [place] % (Auto) Lymph # Seg Neutrophils % Seg Neuts % (Manual) Lymphocytes % (Manual) Seg Neutrophils # Man Lymphocytes # (Manual) PT INR D-Dimer Heparin Anti-Xa Level ABG pH 7.340 L ABG pO2 77.7 L 136.3 H ABG HCO3 27.6 H 28.8 H ABG O2 Saturation ABG Base Excess ABG Hemoglobin 9.3 L 10.9 L Oxyhemoglobin 94.2 L Sodium Chloride Carbon Dioxide BUN Creatinine Glucose POC Glucose Calcium Magnesium Ferritin Alkaline Phosphatase Lactate Dehydrogenase Troponin T C-Reactive Protein NT-Pro-B Natriuret Pep Total Protein Albumin 01/23/20 01/23/20 01/23/20 06:23 07:07 12:23 WBC RBC Hgb Hct RDW Plt Count Lymph % (Auto) [place] % (Auto) Lymph # Seg Neutrophils % Seg Neuts % (Manual) Lymphocytes % (Manual) Seg Neutrophils # Man Lymphocytes # (Manual) PT INR D-Dimer Heparin Anti-Xa Level ABG pH ABG pO2 ABG HCO3 ABG O2 Saturation ABG Base Excess ABG Hemoglobin Oxyhemoglobin Sodium Chloride Carbon Dioxide BUN Creatinine Glucose POC Glucose 57 L 127 H 131 H Calcium Magnesium Ferritin Alkaline Phosphatase Lactate Dehydrogenase Troponin T C-Reactive Protein NT-Pro-B Natriuret Pep Total Protein Albumin 01/23/20 01/23/20 01/24/20 Unknown Unknown 04:00 WBC 16.2 H RBC 3.08 L Hgb 8.9 L Hct 28.6 L RDW 17.8 H Plt Count 139 L Lymph % (Auto) [place] % (Auto) Lymph # Seg Neutrophils % Seg Neuts % (Manual) Lymphocytes % (Manual) Seg Neutrophils # Man Lymphocytes # (Manual) PT INR D-Dimer Heparin Anti-Xa Level < 0.10 L ABG pH ABG pO2 ABG HCO3 ABG O2 Saturation ABG Base Excess ABG Hemoglobin Oxyhemoglobin Sodium Chloride Carbon Dioxide BUN Creatinine Glucose POC Glucose Calcium Magnesium Ferritin 4195.0 H Alkaline Phosphatase Lactate Dehydrogenase Troponin T C-Reactive Protein NT-Pro-B Natriuret Pep Total Protein Albumin 01/24/20 01/24/20 01/24/20 04:00 04:00 04:00 WBC RBC Hgb Hct RDW Plt Count Lymph % (Auto) [place] % (Auto) Lymph # Seg Neutrophils % Seg Neuts % (Manual) Lymphocytes % (Manual) Seg Neutrophils # Man Lymphocytes # (Manual) PT INR D-Dimer 5783.11 H Heparin Anti-Xa Level ABG pH 7.188 L* ABG pO2 70.8 L ABG HCO3 32.2 H ABG O2 Saturation 90.4 L ABG Base Excess ABG Hemoglobin 8.5 L Oxyhemoglobin 88.1 L Sodium Chloride Carbon Dioxide BUN Creatinine Glucose POC Glucose Calcium Magnesium Ferritin Alkaline Phosphatase Lactate Dehydrogenase 474 H Troponin T C-Reactive Protein 29.80 H NT-Pro-B Natriuret Pep Total Protein Albumin 01/24/20 01/24/20 01/24/20 05:20 05:51 09:14 WBC RBC Hgb Hct RDW Plt Count Lymph % (Auto) [place] % (Auto) Lymph # Seg Neutrophils % Seg Neuts % (Manual) Lymphocytes % (Manual) Seg Neutrophils # Man Lymphocytes # (Manual) PT INR D-Dimer Heparin Anti-Xa Level ABG pH 7.214 L ABG pO2 71.7 L ABG HCO3 31.5 H ABG O2 Saturation 91.8 L ABG Base Excess ABG Hemoglobin 9.1 L Oxyhemoglobin 89.3 L Sodium Chloride Carbon Dioxide BUN Creatinine Glucose POC Glucose 50 L 53 L Calcium Magnesium Ferritin Alkaline Phosphatase Lactate Dehydrogenase Troponin T C-Reactive Protein NT-Pro-B Natriuret Pep Total Protein Albumin 01/24/20 01/24/20 01/24/20 15:10 18:04 21:10 WBC RBC Hgb Hct RDW Plt Count Lymph % (Auto) [place] % (Auto) Lymph # Seg Neutrophils % Seg Neuts % (Manual) Lymphocytes % (Manual) Seg Neutrophils # Man Lymphocytes # (Manual) PT INR D-Dimer Heparin Anti-Xa Level ABG pH ABG pO2 ABG HCO3 ABG O2 Saturation ABG Base Excess ABG Hemoglobin Oxyhemoglobin Sodium Chloride Carbon Dioxide BUN Creatinine Glucose POC Glucose 114 H 51 L 144 H Calcium Magnesium Ferritin Alkaline Phosphatase Lactate Dehydrogenase Troponin T C-Reactive Protein NT-Pro-B Natriuret Pep Total Protein Albumin 01/24/20 01/25/20 01/25/20 Unknown 00:32 03:50 WBC 13.0 H RBC 3.10 L Hgb 9.2 L Hct 29.0 L RDW 17.7 H Plt Count Lymph % (Auto) [place] % (Auto) Lymph # Seg Neutrophils % Seg Neuts % (Manual) 92.0 H Lymphocytes % (Manual) 5.0 L Seg Neutrophils # Man 12.0 H Lymphocytes # (Manual) 0.7 L PT INR D-Dimer Heparin Anti-Xa Level ABG pH 7.291 L ABG pO2 71.3 L ABG HCO3 30.6 H ABG O2 Saturation 93.6 L ABG Base Excess 3.3 H ABG Hemoglobin 8.1 L Oxyhemoglobin 91.2 L Sodium Chloride Carbon Dioxide BUN Creatinine Glucose POC Glucose 114 H Calcium Magnesium Ferritin Alkaline Phosphatase Lactate Dehydrogenase Troponin T C-Reactive Protein NT-Pro-B Natriuret Pep Total Protein Albumin 01/25/20 01/25/20 04:22 06:05 WBC RBC Hgb Hct RDW Plt Count Lymph % (Auto) [place] % (Auto) Lymph # Seg Neutrophils % Seg Neuts % (Manual) Lymphocytes % (Manual) Seg Neutrophils # Man Lymphocytes # (Manual) PT INR D-Dimer Heparin Anti-Xa Level ABG pH 7.304 L ABG pO2 69.5 L ABG HCO3 29.7 H ABG O2 Saturation 93.2 L ABG Base Excess ABG Hemoglobin 8.7 L Oxyhemoglobin 90.7 L Sodium Chloride Carbon Dioxide BUN Creatinine Glucose POC Glucose 136 H Calcium Magnesium Ferritin Alkaline Phosphatase Lactate Dehydrogenase Troponin T C-Reactive Protein NT-Pro-B Natriuret Pep Total Protein Albumin Allied health notes reviewed: nursing
--- NOTE | 2020-01-25 13:23 | Event Note ---
Date: 01/25/20 Spoke to , Davis Hernandez. He wants a DNR status. He states if patient does not get better after weekend he may be interested in withdrawal of care.
--- NOTE | 2020-01-25 13:33 | Progress Note ---
Assessment and Plan Cultures: Blood culture 01/14/2020 no growth to date A/P: #Sepsis with shock: on low dose levophed, fever resolved, leukocytosis improving . likely due to severe COVID pneumonia. #Severe COVID pneumonia: very elevated inflammatory markers- ferritin> 2000, CRP >24, LDH> 600, d-dimer >1000 putting her at high risk for ARDS. Markers continue better, DDimer >10,000 #Acute resp failure: was on Nonrebreathing and HFO2 worsening, s/p intubation, fO2 60 p14 #ESRD on HD #Thrombocytopenia: monitor, resolved Recs: obtain blood culture, UA, tracheal asp culture, sputum culture Continue cefepime 4 of 5 S/p ivermectin x 1 on 01/21/2020 S/p hydroxychloroquine with zinc 5 of 5 On steroid trial Now on prophylactic lovenox dose Obtain serial Ferritin, LDH, D-Dimer, CRP every 48h Dr Loza will be covering this weekend Angela Bales MD Infectious Diseases [employer] [facility] ([facility]) M [phone] Subjective Date of service: 01/25/20 Principal diagnosis: Pneumonia Interval history: Intubated fiO2 60, p14, on levophed, no fever no acute changes overnight PUI?: Yes COVID19: Positive Objective - Exam Narrative Exam: Gen: intubated sedated Head, Ears, Nose: Normocephalic, atraumatic. Oral: Limited Cardiovascular: Limited evaluation due to PPE shortage Respiratory: steph crackles GI: Limited evaluation due to PPE shortage Musculoskeletal: Limited evaluation due to PPE shortage Neurological: sedated - Constitutional Vitals: Vital Signs Temp Pulse Resp BP Pulse Ox 98.7 F 87 14 103/53 96 01/25/20 12:45 01/25/20 13:00 01/25/20 12:45 01/25/20 13:00 01/25/20 12:45 Temperature -Last 24 Hours Temperature 98.7 F Temperature 98.7 F Temperature 99.5 F Temperature 99.4 F Temperature 97.2 F Temperature 98.7 F Temperature 98.1 F - Labs CBC & Chem 7: 01/25/20 03:50 01/22/20 07:47 Labs: Abnormal lab results 01/24/20 01/24/20 01/24/20 Range/Units 15:10 18:04 21:10 WBC (4.5-11.0) K/mm3 RBC (3.65-5.03) M/mm3 Hgb (10.1-14.3) gm/dl Hct (30.3-42.9) % RDW (13.2-15.2) % Seg Neuts % (Manual) (40.0-70.0) % Lymphocytes % (Manual) (13.4-35.0) % Seg Neutrophils # Man (1.8-7.7) K/mm3 Lymphocytes # (Manual) (1.2-5.4) K/mm3 ABG pH (7.350-7.450) pH Units ABG pO2 (80.0-90.0) mm Hg ABG HCO3 (20.0-26.0) mmol/L ABG O2 Saturation (95.0-99.0) % ABG Hemoglobin (12.0-16.0) gm/dl Oxyhemoglobin (95.0-99.0) % POC Glucose 114 H 51 L 144 H (70-105) 01/25/20 01/25/20 01/25/20 Range/Units 00:32 03:50 04:22 WBC 13.0 H (4.5-11.0) K/mm3 RBC 3.10 L (3.65-5.03) M/mm3 Hgb 9.2 L (10.1-14.3) gm/dl Hct 29.0 L (30.3-42.9) % RDW 17.7 H (13.2-15.2) % Seg Neuts % (Manual) 92.0 H (40.0-70.0) % Lymphocytes % (Manual) 5.0 L (13.4-35.0) % Seg Neutrophils # Man 12.0 H (1.8-7.7) K/mm3 Lymphocytes # (Manual) 0.7 L (1.2-5.4) K/mm3 ABG pH 7.304 L (7.350-7.450) pH Units ABG pO2 69.5 L (80.0-90.0) mm Hg ABG HCO3 29.7 H (20.0-26.0) mmol/L ABG O2 Saturation 93.2 L (95.0-99.0) % ABG Hemoglobin 8.7 L (12.0-16.0) gm/dl Oxyhemoglobin 90.7 L (95.0-99.0) % POC Glucose 114 H (70-105) 01/25/20 Range/Units 06:05 WBC (4.5-11.0) K/mm3 RBC (3.65-5.03) M/mm3 Hgb (10.1-14.3) gm/dl Hct (30.3-42.9) % RDW (13.2-15.2) % Seg Neuts % (Manual) (40.0-70.0) % Lymphocytes % (Manual) (13.4-35.0) % Seg Neutrophils # Man (1.8-7.7) K/mm3 Lymphocytes # (Manual) (1.2-5.4) K/mm3 ABG pH (7.350-7.450) pH Units ABG pO2 (80.0-90.0) mm Hg ABG HCO3 (20.0-26.0) mmol/L ABG O2 Saturation (95.0-99.0) % ABG Hemoglobin (12.0-16.0) gm/dl Oxyhemoglobin (95.0-99.0) % POC Glucose 136 H (70-105)
--- NOTE | 2020-01-25 14:48 | Progress Note ---
Assessment and Plan - Patient Problems (1) ESRD needing dialysis Current Visit: No Status: Acute Plan to address problem: Patient on MWF schedule. (2) Volume overload Current Visit: Yes Status: Acute Qualifiers: Plan to address problem: Goal is to optimize volume status with adequate fluid removal with HD. Evaluate daily for need of extra isolated UF sessions. (3) Pneumonia due to COVID-19 virus Current Visit: Yes Status: Acute Plan to address problem: Management per ID recommendations. (4) Hyponatremia Current Visit: No Status: Acute Plan to address problem: Possibly in the setting of fluid overload. improved at this time. (5) Hypertensive chronic kidney disease with stage 5 chronic kidney disease or end stage renal disease Current Visit: No Status: Chronic Plan to address problem: Monitor on current regimen. Now off all blood pressure medications, and in fact on pressors at present time. Will have ICU team titrate pressors so as to allow us to be aggressive in fluid removal with HD. (6) Anemia in CKD (chronic kidney disease) Current Visit: Yes Status: Acute Qualifiers: Chronic kidney disease stage: on chronic dialysis Qualified Code(s): N18.6 - End stage renal disease; D63.1 - Anemia in chronic kidney disease; Z99.2 - Dependence on renal dialysis Plan to address problem: CLARITA therapy with HD. (7) Secondary hyperparathyroidism (of renal origin) Current Visit: Yes Status: Chronic Plan to address problem: Continue on current outpatient phos binder regimen. Subjective Date of service: 01/25/20 Principal diagnosis: Pneumonia Interval history: Patient had 2.5L UF removed with treatment done yesterday. Plan for HD today. PUI?: Yes COVID19: Positive Objective - Vital Signs Vital signs: Vital Signs - 12hr 01/25/20 01/25/20 01/25/20 02:45 03:00 03:15 Temperature Pulse Rate 95 H 95 H 95 H Pulse Rate [ From Monitor] Respiratory 15 17 17 Rate Blood Pressure 118/55 120/57 131/59 O2 Sat by Pulse 94 94 93 Oximetry O2 Sat by Pulse Oximetry [ Anterior Bilateral Throughout] O2 Sat by Pulse Oximetry [ Bilateral] O2 Sat by Pulse Oximetry [ Posterior Bilateral Throughout] 01/25/20 01/25/20 01/25/20 03:19 03:30 03:45 Temperature Pulse Rate 95 H 95 H 95 H Pulse Rate [ From Monitor] Respiratory 12 14 Rate Blood Pressure 128/61 132/64 O2 Sat by Pulse 94 93 93 Oximetry O2 Sat by Pulse Oximetry [ Anterior Bilateral Throughout] O2 Sat by Pulse Oximetry [ Bilateral] O2 Sat by Pulse Oximetry [ Posterior Bilateral Throughout] 01/25/20 01/25/20 01/25/20 04:00 04:15 04:30 Temperature 99.5 F Pulse Rate 92 H 96 H 98 H Pulse Rate [ From Monitor] Respiratory 13 11 L 18 Rate Blood Pressure 125/56 130/63 141/73 O2 Sat by Pulse 92 94 96 Oximetry O2 Sat by Pulse Oximetry [ Anterior Bilateral Throughout] O2 Sat by Pulse Oximetry [ Bilateral] O2 Sat by Pulse Oximetry [ Posterior Bilateral Throughout] 01/25/20 01/25/20 01/25/20 04:45 05:00 05:15 Temperature Pulse Rate 96 H 95 H 94 H Pulse Rate [ From Monitor] Respiratory 15 21 17 Rate Blood Pressure 119/58 114/57 106/60 O2 Sat by Pulse 94 94 93 Oximetry O2 Sat by Pulse Oximetry [ Anterior Bilateral Throughout] O2 Sat by Pulse Oximetry [ Bilateral] O2 Sat by Pulse Oximetry [ Posterior Bilateral Throughout] 01/25/20 01/25/20 01/25/20 05:30 05:45 06:00 Temperature Pulse Rate 93 H 92 H 93 H Pulse Rate [ From Monitor] Respiratory 20 18 16 Rate Blood Pressure 117/58 119/54 114/54 O2 Sat by Pulse 92 93 93 Oximetry O2 Sat by Pulse Oximetry [ Anterior Bilateral Throughout] O2 Sat by Pulse Oximetry [ Bilateral] O2 Sat by Pulse Oximetry [ Posterior Bilateral Throughout] 01/25/20 01/25/20 01/25/20 06:15 06:30 06:45 Temperature Pulse Rate 93 H 92 H 92 H Pulse Rate [ From Monitor] Respiratory 21 16 19 Rate Blood Pressure 124/55 110/53 101/54 O2 Sat by Pulse 92 94 93 Oximetry O2 Sat by Pulse Oximetry [ Anterior Bilateral Throughout] O2 Sat by Pulse Oximetry [ Bilateral] O2 Sat by Pulse Oximetry [ Posterior Bilateral Throughout] 01/25/20 01/25/20 01/25/20 07:00 07:15 07:30 Temperature Pulse Rate 97 H 95 H 96 H Pulse Rate [ From Monitor] Respiratory 13 23 18 Rate Blood Pressure 111/61 116/68 121/63 O2 Sat by Pulse 94 94 94 Oximetry O2 Sat by Pulse Oximetry [ Anterior Bilateral Throughout] O2 Sat by Pulse Oximetry [ Bilateral] O2 Sat by Pulse Oximetry [ Posterior Bilateral Throughout] 01/25/20 01/25/20 01/25/20 07:45 08:00 08:15 Temperature 98.7 F Pulse Rate 97 H 97 H 100 H Pulse Rate [ 97 H From Monitor] Respiratory 21 19 17 Rate Blood Pressure 128/64 133/65 127/64 O2 Sat by Pulse 94 94 94 Oximetry O2 Sat by Pulse Oximetry [ Anterior Bilateral Throughout] O2 Sat by Pulse Oximetry [ Bilateral] O2 Sat by Pulse Oximetry [ Posterior Bilateral Throughout] 01/25/20 01/25/20 01/25/20 08:30 08:45 09:00 Temperature Pulse Rate 95 H 97 H 97 H Pulse Rate [ From Monitor] Respiratory 15 19 18 Rate Blood Pressure 119/63 126/66 131/66 O2 Sat by Pulse 93 94 93 Oximetry O2 Sat by Pulse Oximetry [ Anterior Bilateral Throughout] O2 Sat by Pulse Oximetry [ Bilateral] O2 Sat by Pulse Oximetry [ Posterior Bilateral Throughout] 01/25/20 01/25/20 01/25/20 09:01 09:15 09:30 Temperature Pulse Rate 97 H 98 H 98 H Pulse Rate [ From Monitor] Respiratory 15 21 Rate Blood Pressure 130/65 130/64 O2 Sat by Pulse 96 93 94 Oximetry O2 Sat by Pulse Oximetry [ Anterior Bilateral Throughout] O2 Sat by Pulse Oximetry [ Bilateral] O2 Sat by Pulse Oximetry [ Posterior Bilateral Throughout] 01/25/20 01/25/20 01/25/20 09:45 09:47 12:23 Temperature Pulse Rate 96 H 96 H Pulse Rate [ From Monitor] Respiratory 14 Rate Blood Pressure 124/63 124/63 O2 Sat by Pulse 93 93 Oximetry O2 Sat by Pulse Oximetry [ Anterior Bilateral Throughout] O2 Sat by Pulse Oximetry [ Bilateral] O2 Sat by Pulse Oximetry [ Posterior Bilateral Throughout] 01/25/20 01/25/20 01/25/20 12:45 12:55 13:00 Temperature 98.7 F Pulse Rate 87 87 87 Pulse Rate [ From Monitor] Respiratory 14 Rate Blood Pressure 105/44 109/53 103/53 O2 Sat by Pulse Oximetry O2 Sat by Pulse 96 Oximetry [ Anterior Bilateral Throughout] O2 Sat by Pulse 96 Oximetry [ Bilateral] O2 Sat by Pulse 94 Oximetry [ Posterior Bilateral Throughout] 01/25/20 01/25/20 01/25/20 13:15 13:30 13:45 Temperature Pulse Rate 67 67 89 Pulse Rate [ From Monitor] Respiratory Rate Blood Pressure 94/48 88/45 99/45 O2 Sat by Pulse Oximetry O2 Sat by Pulse Oximetry [ Anterior Bilateral Throughout] O2 Sat by Pulse Oximetry [ Bilateral] O2 Sat by Pulse Oximetry [ Posterior Bilateral Throughout] 01/25/20 01/25/20 01/25/20 14:00 14:15 14:30 Temperature Pulse Rate 91 H 93 H 94 H Pulse Rate [ From Monitor] Respiratory Rate Blood Pressure 93/51 83/49 88/52 O2 Sat by Pulse Oximetry O2 Sat by Pulse Oximetry [ Anterior Bilateral Throughout] O2 Sat by Pulse Oximetry [ Bilateral] O2 Sat by Pulse Oximetry [ Posterior Bilateral Throughout] - General Appearance General appearance: chronically ill, intubated, frail EENT: ATNC Neck: no JVD Respiratory: Present: Decreased Breath Sounds Cardiology: regular Gastrointestinal: normal Integumentary: no rash Musculoskeletal: deferred - Lab 01/25/20 03:50 01/22/20 07:47 Most recent lab results ABG pH 7.304 pH Units (7.350-7.450) L 01/25/20 04:22 ABG pCO2 61.2 mm Hg 01/25/20 04:22 ABG pO2 69.5 mm Hg (80.0-90.0) L 01/25/20 04:22 ABG HCO3 29.7 mmol/L (20.0-26.0) H 01/25/20 04:22 ABG O2 Saturation 93.2 % (95.0-99.0) L 01/25/20 04:22 Calcium 9.0 mg/dL (8.4-10.2) 01/22/20 07:47 Phosphorus 3.30 mg/dL (2.5-4.5) 01/12/20 16:01 Magnesium 2.00 mg/dL (1.7-2.3) 01/13/20 06:11 - Allied health notes Allied health notes reviewed: nursing Medications & Allergies - Medications Allergies/Adverse Reactions: Allergies cheese Allergy (Mild, Verified 12/20/19 10:19) Itching iodine Allergy (Mild, Verified 12/20/19 10:16) Anaphylaxis clonidine Allergy (Verified 12/19/19 04:13) Anaphylaxis shellfish derived Adverse Reaction (Verified 12/19/19 04:13) Angioedema Home Medications: Home Medications Medication Instructions Recorded Confirmed Last Taken Type Atorvastatin [Lipitor] 40 mg PO DAILY 11/06/19 01/13/20 01/02/20 10:00 History Acetaminophen [Acetaminophen 8 650 mg PO Q8H PRN #30 tablet.er 11/21/19 01/13/20 01/03/20 22:00 Rx Hour] Cyclobenzaprine HCl [Flexeril 5 MG 5 mg PO QHS PRN #20 tab 11/21/19 01/13/20 01/01/20 22:00 Rx TAB] HYDROcodone/APAP 5-325 [[place] 1 each PO Q6HR PRN #18 tablet 12/13/19 01/13/20 01/01/20 22:00 Rx 5-325 mg TAB] amLODIPine 10 mg PO DAILY 90 Days #90 tab 12/18/19 01/13/20 01/01/20 10:00 Rx Ibuprofen 800 mg PO TID 12/19/19 01/13/20 01/02/20 22:00 History Magnesium Oxide [Mag-Ox] 400 mg PO QDAY 12/19/19 01/13/20 01/03/20 10:00 History diphenhydrAMINE [Benadryl CAP] 25 mg PO Q8HR PRN 12/19/19 01/13/20 01/03/20 21:00 History labetaloL [Labetalol 100mg TAB] 100 mg PO Q8H #90 tablet 12/21/19 01/13/20 01/02/20 10:00 Rx traMADoL [Ultram 50 MG tab] 50 mg PO Q6HR PRN #20 tablet 12/29/19 01/13/2012/30 10:00 Rx DULoxetine [Cymbalta] 30 mg PO QDAY #30 capsule 01/04/20 01/13/20 Unknown Rx Valsartan [Diovan] 80 mg PO DAILY #30 tablet 01/04/20 01/13/20 Unknown Rx Active Medications: Generic Name Dose Route Start Last Admin Trade Name Freq PRN Reason Stop Dose Admin Acetaminophen 650 mg 01/09/20 16:33 01/12/20 18:23 Tylenol PO 650 mg Q4H PRN Administration Pain MILD(1-3)/Fever >100.5/MEANS Lipase/Protease/Amylase 1 each 01/23/20 14:[address] 10,500 Unit FEEDTUBE PRN PRN For Clogged Feeding Tube Atorvastatin Calcium 40 mg 01/09/20 22:00 01/24/20 21:13 Lipitor PO 40 mg QHS PHILLY Administration Cyclobenzaprine HCl 5 mg 01/09/20 16:27 01/10/20 23:17 Flexeril PO 5 mg QHS PRN Administration Muscle Spasm Dextrose 50 ml 01/23/20 07:26 01/24/20 18:29 D50w (25gm) Syringe IV 50 ml Q30MIN PRN Administration BLOOD GLUCOSE < 70 Dextrose 25 ml 01/24/20 08:58 01/24/20 13:41 D50w (25gm) Syringe IV 25 ml Q4H PRN Administration BG < 80 MG/DL Diphenhydramine HCl 25 mg 01/09/20 16:15 01/12/20 00:50 Benadryl PO 25 mg Q8HR PRN Administration Itching Docusate Sodium 100 mg 01/25/20 22:00 Colace PO BID PHILLY Duloxetine HCl 30 mg 01/09/20 17:00 01/25/20 09:47 Cymbalta PO 30 mg QDAY PHILLY Administration Enoxaparin Sodium 80 mg 01/23/20 12:00 01/25/20 09:48 Enoxaparin SUB-Q 80 mg Q24HR PHILLY Administration Famotidine 20 mg 01/09/20 22:00 01/25/20 09:46 Pepcid PO 20 mg DAILY PHILLY Administration Fentanyl 50 mcg 01/23/20 15:36 01/23/20 15:54 Sublimaze IV 50 mcg Q10MIN PRN Administration ANALGESIA Cefepime HCl 1 gm in 100 mls @ 200 mls/hr 01/21/20 18:00 01/24/20 17:53 Cefepime/Ns 1 Gm/100 Ml IV 01/25/20 18:29 200 mls/hr QPM PHILLY Administration Norepinephrine 4 mg in 250 mls @ 7.5 mls/hr 01/21/20 18:00 01/25/20 08:33 Levophed Drip 4 Mg/Ns 250 Ml IV 2 mcg/min TITR PHILLY 7.5 mls/hr Titration Protocol 2 MCG/MIN Propofol 1,000 mg in 100 mls @ 2.265 mls/hr 01/22/20 09:00 01/25/20 09:50 Diprivan 10 Mg/Ml IV 15 mcg/kg/min TITR PHILLY 6.795 mls/hr Titration Protocol 5 MCG/KG/MIN Fentanyl Citrate 2,000 mcg in 100 mls @ 3.775 mls/hr 01/23/20 16:00 01/24/20 01:32 Fentanyl Drip Premix IV 0 mcg/kg/hr TITR PHILLY 0 mls/hr Titration Protocol 1 MCG/KG/HR Lorazepam 100 mg/ Sodium 100 mls @ 1 mls/hr 01/23/20 16:00 Chloride/ Miscellaneous IV Information TITR PHILLY Protocol 1 MG/HR Sodium Chloride 100 mls @ 999 mls/hr 01/25/20 08:29 Nacl 0.9% IV SILVERIO PRN Hypotension Lorazepam 2 mg 01/23/20 15:36 Ativan IV Q10MIN PRN Agitation Ondansetron HCl 4 mg 01/09/20 16:33 01/20/20 10:19 Zofran IV 4 mg Q8H PRN Administration Nausea And Vomiting Simple Syrup 15 ml 01/23/20 14:28 Simple Syrup FEEDTUBE PRN PRN Hypoglycemia Simple Syrup 30 ml 01/23/20 14:28 Simple Syrup FEEDTUBE PRN PRN Hypoglycemia Sodium Bicarbonate 325 mg 01/23/20 14:28 Sodium Bicarbonate FEEDTUBE PRN PRN For Clogged Feeding Tube Sodium Chloride 10 ml 01/09/20 22:00 01/25/20 09:49 Sodium Chloride Flush Syringe 10 Ml IV 10 ml BID PHILLY Administration Sodium Chloride 10 ml 01/09/20 16:33 Sodium Chloride Flush Syringe 10 Ml IV PRN PRN LINE FLUSH Tramadol HCl 50 mg 01/16/20 13:07 01/20/20 10:19 Ultram PO 50 mg Q12HR PRN Administration Pain, Moderate (4-6) Valsartan 80 mg 01/10/20 10:00 01/25/20 09:47 Diovan PO 80 mg DAILY PHILLY Administration
[2020-01-25] MEDS: NORepinephrine/NS 4 MG-250 ML 4 MG/250 ML BAG IV SCH (16:30)
[2020-01-25] MEDS: CEFEPIME/NS 1 GM/100 ML 1 GM/100 ML BAG IV SCH (17:17)
[2020-01-25] MEDS: DOCUSATE SODIUM 100 MG/10 ML ORAL LIQD PO SCH (21:08)
[2020-01-26 04:05] LABS: C-Reactive Protein 28.6 mg/dL (0.00-1.30)
[2020-01-26 05:42] LABS: ABG Base Excess 4.9 mmol/L (-2.0-3.0); ABG HCO3 30.8 mmol/L (20.0-26.0); ABG Methemoglobin 0.5 % (0.0-1.5); ABG PCO2 54.2 mm Hg; ABG PH 7.372 pH Units (7.350-7.450); ABG PO2 86.8 mm Hg (80.0-90.0)
[2020-01-26] MEDS ORDERED: SODIUM CHLORIDE 0.9% 100 ML IV PRN (07:54)
--- NOTE | 2020-01-26 08:36 | Progress Note ---
Assessment and Plan Assessment and plan: Suspected COVID- 19 Patient with very elevated inflammatory markers of ferritin, CRP, LDH and d- dimer. Bilateral pneumonia. Continue antibiotics per ID ARDS. Etiology secondary to above. Acute hypoxemic respiratory failure. Continue oxygen to maintain sats greater than 92% Appears stable on HFNC; wean FiO2 then flow Chest pain Stress test neg for ischemia GERD and costochondritis in differential diagnosis Volume overload s/p hemodialysis Nephrology consulted,following Acute on Chronic diastolic CHF exacerbation Secondary to volume overload End stage renal disease on dialysis Nephrology following T2DM (type 2 diabetes mellitus) Continue continue coverage Check hemoglobin A1c Hypertension Continue antihypertensives Hyponatremia Secondary to increased volume--dilutional DVT prophylaxis On heparin and GI prophylaxis 01/11 Covid 19 survey testing sent, nasal swab done 01/10 01/12 Patient has acute resp failure. may need Oxygen on dc. awaiting Covid result 01/13 Still has shortness of breath, awaiting Covid test. 01/14 Pt still dyspneic, await covid testing, Pulse ox 83% 01/16/2020. Patient remains dyspneic. Follow-up COVID testing. 01/17/2020. Patient still requiring large amounts of oxygen. Patient currently with 15 L satting at 95%. Patient with increased inflammatory markers. Follow- up chest x-ray today. 01/18/20--Patient still requiring large amounts of oxygen. Patient currently with 15 L %. Patient with increased inflammatory markers. 01/19/2020 very elevated inflammatory markers- ferritin> 2000, CRP >24, LDH> 600, d-dimer >1000 putting her at high risk for ARDS. Continue hydroxychloroquine 400 mg PO BID for 1 day then 200 mg PO BID for 4 days (total 5 days) with zinc 220 mg PO qday. Continue ceftriaxone. ContinueCOVID isolationprecautions pe r [facility]. Continue serial Ferritin, LDH, D-Dimer, CRP every 48h 01/20/2020. Inflammatory markers remain elevated with ferritin 1826, LDH 496, CRP 19.3, and d-dimer 2072. Patient requiring high flow nasal cannula 40L, FiO2 80%. Pulmonary following. Continue antibiotics and Plaquenil. Continue COVID isolationprecautions per [facility] protocol. Patient has a high risk mortality and remains guarded. 01/21/2020. Continue antibiotics and Plaquenil. Continue COVID isolationprecautions per [facility] protocol. Maintain sats of 88% and greater. Still on HFNC, O2 weaned to 95% overnight. Sats documented at 98%. Pulmonary following and reports If patient progresses could give bipap a one hour trial to see if there is improvement, repeat ABG, if not would suggest elective intubation. 01/22/2020 Patient still critically ill. Yesterday 01/20 had cardiopulmonary arrest so now intubated in ICU. Prognosis guarded. 01/23/2020 still critically ill. No more fever. Continue vent management. 01/24/20 Still critically ill, remain on vent. Continue current management. Will call . 01/25/20 Patient still critically ill. I called Davis Hernandez and gave update. He wants DNR status and says he will request withdrawal of care if patient does not get better after weekend. I discussed with [employer]. 01/26/20 patient still intubated, on vent. She means a DNR order. Discussed with Nurse The high probability of a clinically significant, sudden or life threatening deterioration of the [immunologic and respiratory] system(s) required my full and direct attention, intervention and personal management. The aggregate critical care time was [34] minutes. This time is in addition to time spent performing reported procedures but includes the following: [x] Data Review and interpretation [x] Patient assessment and monitoring of vital signs [x] Documentation [x] Medication orders and management History Interval history: Patient initially presented with chest tightness, SOB Now diagnosed with Covid-19 infection,acute resp failure, intubated requests DNR status PUI?: Yes COVID19: Positive Hospitalist Physical - Physical exam Narrative exam: GEN: Intubated, HEENT: Normocephalic, atraumatic, Neck: supple, No JVD Lungs: Bilateral crackles, heart;S1 and S2 reg, no murmurs, rubs or gallop Abd:soft, non tender, non distended, normal bowel sounds Ext: No edema, no clubbing, no cyanosis, Neuro: intubated, unresponsive - Constitutional Vitals: Temp Pulse Resp BP Pulse Ox 99.1 F 101 H 24 102/54 95 01/26/20 00:00 01/26/20 06:00 01/26/20 06:15 01/26/20 06:00 01/26/20 06:00 General appearance: Present: no acute distress BREEZY score - Breezy Score Age > 65: (1) Yes Aspirin use within the Past 7 Days: (1) Yes 3 or more CAD Risk Factors: (1) Yes 2 or more Angina events in past 24 hrs: (1) Yes Known CAD with more than 50% Stenosis: (0) No Elevated Cardiac Markers: (0) No ST Deviation Greater than 0.5mm: (0) No BREEZY Score: 4 Results - Labs CBC & Chem 7: 01/25/20 03:50 01/22/20 07:47 Labs: Laboratory Last Values WBC 13.0 K/mm3 (4.5-11.0) H 01/25/20 03:50 RBC 3.10 M/mm3 (3.65-5.03) L 01/25/20 03:50 Hgb 9.2 gm/dl (10.1-14.3) L 01/25/20 03:50 Hct 29.0 % (30.3-42.9) L 01/25/20 03:50 MCV 94 fl (79-97) 01/25/20 03:50 MCH 30 pg (28-32) 01/25/20 03:50 MCHC 32 % (30-34) 01/25/20 03:50 RDW 17.7 % (13.2-15.2) H 01/25/20 03:50 Plt Count 189 K/mm3 (140-440) 01/25/20 03:50 Lymph % (Auto) 3.8 % (13.4-35.0) L 01/18/20 06:25 [place]ila % (Auto) 6.5 % (0.0-7.3) 01/18/20 06:25 Eos % (Auto) 0.8 % (0.0-4.3) 01/18/20 06:25 Baso % (Auto) 0.1 % (0.0-1.8) 01/18/20 06:25 Lymph # 0.2 K/mm3 (1.2-5.4) L 01/18/20 06:25 Gila # 0.4 K/mm3 (0.0-0.8) 01/18/20 06:25 Eos # 0.0 K/mm3 (0.0-0.4) 01/18/20 06:25 Baso # 0.0 K/mm3 (0.0-0.1) 01/18/20 06:25 Add Manual Diff Complete 01/25/20 03:50 Total Counted 100 01/25/20 03:50 Seg Neutrophils % Cpr Ambulance Driver 01/25/20 03:50 Seg Neuts % (Manual) 92.0 % (40.0-70.0) H 01/25/20 03:50 Band Neutrophils % 0 % 01/25/20 03:50 Lymphocytes % (Manual) 5.0 % (13.4-35.0) L 01/25/20 03:50 Reactive Lymphs % (Man) 0 % 01/25/20 03:50 Monocytes % (Manual) 2.0 % (0.0-7.3) 01/25/20 03:50 Eosinophils % (Manual) 1.0 % (0.0-4.3) 01/25/20 03:50 Basophils % (Manual) 0 % (0.0-1.8) 01/25/20 03:50 Metamyelocytes % 0 % 01/25/20 03:50 Myelocytes % 0 % 01/25/20 03:50 Promyelocytes % 0 % 01/25/20 03:50 Blast Cells % 0 % 01/25/20 03:50 Nucleated RBC % Not Reportable 01/25/20 03:50 Seg Neutrophils # 5.0 K/mm3 (1.8-7.7) 01/18/20 06:25 Seg Neutrophils # Man 12.0 K/mm3 (1.8-7.7) H 01/25/20 03:50 Band Neutrophils # 0.0 K/mm3 01/25/20 03:50 Lymphocytes # (Manual) 0.7 K/mm3 (1.2-5.4) L 01/25/20 03:50 Abs React Lymphs (Man) 0.0 K/mm3 01/25/20 03:50 Monocytes # (Manual) 0.3 K/mm3 (0.0-0.8) 01/25/20 03:50 Eosinophils # (Manual) 0.1 K/mm3 (0.0-0.4) 01/25/20 03:50 Basophils # (Manual) 0.0 K/mm3 (0.0-0.1) 01/25/20 03:50 Metamyelocytes # 0.0 K/mm3 01/25/20 03:50 Myelocytes # 0.0 K/mm3 01/25/20 03:50 Promyelocytes # 0.0 K/mm3 01/25/20 03:50 Blast Cells # 0.0 K/mm3 01/25/20 03:50 WBC Morphology Not Reportable 01/25/20 03:50 Hypersegmented Neuts Not Reportable 01/25/20 03:50 Hyposegmented Neuts Not Reportable 01/25/20 03:50 Hypogranular Neuts Not Reportable 01/25/20 03:50 Smudge Cells Not Reportable 01/25/20 03:50 Toxic Granulation Not Reportable 01/25/20 03:50 Toxic Vacuolation Not Reportable 01/25/20 03:50 Dohle Bodies Not Reportable 01/25/20 03:50 Pelger-Huet Anomaly Not Reportable 01/25/20 03:50 Armando Rods Not Reportable 01/25/20 03:50 Platelet Estimate Consistent w auto 01/25/20 03:50 Clumped Platelets Not Reportable 01/25/20 03:50 Plt Clumps, EDTA Not Reportable 01/25/20 03:50 Large Platelets Not Reportable 01/25/20 03:50 Giant Platelets Not Reportable 01/25/20 03:50 Platelet Satelliting Not Reportable 01/25/20 03:50 Plt Morphology Comment Not Reportable 01/25/20 03:50 RBC Morphology Not Reportable 01/25/20 03:50 Dimorphic RBCs Not Reportable 01/25/20 03:50 Polychromasia Not Reportable 01/25/20 03:50 Hypochromasia Not Reportable 01/25/20 03:50 Poikilocytosis Not Reportable 01/25/20 03:50 Anisocytosis 1+ 01/25/20 03:50 Microcytosis Not Reportable 01/25/20 03:50 Macrocytosis Not Reportable 01/25/20 03:50 Spherocytes Not Reportable 01/25/20 03:50 Pappenheimer Bodies Not Reportable 01/25/20 03:50 Sickle Cells Not Reportable 01/25/20 03:50 Target Cells Not Reportable 01/25/20 03:50 Tear Drop Cells Not Reportable 01/25/20 03:50 Ovalocytes Not Reportable 01/25/20 03:50 Helmet Cells Not Reportable 01/25/20 03:50 Vu-Crosby Bodies Not Reportable 01/25/20 03:50 [place] Rings Not Reportable 01/25/20 03:50 [place] Cells Not Reportable 01/25/20 03:50 Bite Cells Not Reportable 01/25/20 03:50 Crenated Cell Not Reportable 01/25/20 03:50 Elliptocytes Not Reportable 01/25/20 03:50 Acanthocytes (Spur) Not Reportable 01/25/20 03:50 Rouleaux Not Reportable 01/25/20 03:50 Hemoglobin C Crystals Not Reportable 01/25/20 03:50 Schistocytes Not Reportable 01/25/20 03:50 Malaria parasites Not Reportable 01/25/20 03:50 Ney Bodies Not Reportable 01/25/20 03:50 Hem Pathologist Commnt No 01/25/20 03:50 PT 15.6 Sec. (12.2-14.9) H 01/09/20 12:55 INR 1.22 (0.87-1.13) H 01/09/20 12:55 APTT 31.5 Sec. (24.2-36.6) 01/09/20 12:55 D-Dimer 3828.76 ng/mlDDU (0-234) H 01/26/20 02:31 Heparin Anti-Xa Level < 0.10 U.I./ml (0.3-0.7) L 01/23/20 Unknown ABG pH 7.372 pH Units (7.350-7.450) 01/26/20 04:45 ABG pCO2 54.2 mm Hg 01/26/20 04:45 ABG pO2 86.8 mm Hg (80.0-90.0) 01/26/20 04:45 ABG HCO3 30.8 mmol/L (20.0-26.0) H 01/26/20 04:45 ABG O2 Saturation 97.0 % (95.0-99.0) 01/26/20 04:45 ABG O2 Content 10.0 (0.0-44) 01/26/20 04:45 ABG Base Excess 4.9 mmol/L (-2.0-3.0) H 01/26/20 04:45 ABG Hemoglobin 7.4 gm/dl (12.0-16.0) L 01/26/20 04:45 ABG Carboxyhemoglobin 2.0 % (0.0-5.0) 01/26/20 04:45 ABG Methemoglobin 0.5 % (0.0-1.5) 01/26/20 04:45 Oxyhemoglobin 94.6 % (95.0-99.0) L 01/26/20 04:45 FiO2 70 % 01/26/20 04:45 Sodium 139 mmol/L (137-145) 01/22/20 07:47 Potassium 4.8 mmol/L (3.6-5.0) 01/22/20 07:47 Chloride 94.3 mmol/L (98-107) L 01/22/20 07:47 Carbon Dioxide 24 mmol/L (22-30) 01/22/20 07:47 Anion Gap 26 mmol/L 01/22/20 07:47 BUN 53 mg/dL (7-17) H 01/22/20 07:47 Creatinine 6.5 mg/dL (0.7-1.2) H 01/22/20 07:47 Estimated GFR 8 ml/min 01/22/20 07:47 BUN/Creatinine Ratio 8 % 01/22/20 07:47 Glucose 72 mg/dL (65-100) 01/22/20 07:47 POC Glucose 121 (70-105) H 01/26/20 05:24 Hemoglobin A1c 5.0 % (4-6) 01/10/20 06:54 Calcium 9.0 mg/dL (8.4-10.2) 01/22/20 07:47 Phosphorus 3.30 mg/dL (2.5-4.5) 01/12/20 16:01 Magnesium 2.00 mg/dL (1.7-2.3) 01/13/20 06:11 Ferritin 3764.0 ng/mL (13.0-400.0) H 01/26/20 02:31 Total Bilirubin 0.30 mg/dL (0.1-1.2) 01/10/20 06:54 AST 30 units/L (5-40) 01/10/20 06:54 ALT 24 units/L (7-56) 01/10/20 06:54 Alkaline Phosphatase 148 units/L (35-129) H 01/10/20 06:54 Lactate Dehydrogenase 393 units/L (91-180) H 01/26/20 02:31 Troponin T 0.315 ng/mL (0.00-0.029) H* 01/10/20 06:54 C-Reactive Protein 28.60 mg/dL (0.00-1.30) H 01/26/20 02:31 NT-Pro-B Natriuret Pep 33811 pg/mL (0-900) H 01/09/20 12:55 Total Protein 5.4 g/dL (6.3-8.2) L 01/10/20 06:54 Albumin 2.7 g/dL (3.9-5) L 01/10/20 06:54 Albumin/Globulin Ratio 1.0 % 01/10/20 06:54 Triglycerides 81 mg/dL (2-149) 01/24/20 04:00 Cholesterol 123 mg/dL (50-199) 01/09/20 12:55 LDL Cholesterol Direct 66 mg/dL (50-130) 01/09/20 12:55 HDL Cholesterol 47 mg/dL (40-59) 01/09/20 12:55 Cholesterol/HDL Ratio 2.61 % 01/09/20 12:55 Hepatitis A IgM Ab Non-reactive (NonReactive) 01/21/20 23:40 Hep Bs Antigen Non-reactive (Negative) 01/21/20 23:40 Hep B Core IgM Ab Non-reactive (NonReactive) 01/21/20 23:40 Hepatitis C Antibody Non-reactive (NonReactive) 01/21/20 23:40 Miscellaneous Test See scanned result 01/11/20 Unknown Miscellaneous Test See scanned result 01/11/20 Unknown Microbiology: Microbiology 01/25/20 Unknown Peripheral/Venous Blood Culture - Preliminary Culture in Progress 01/25/20 Unknown Peripheral/Venous Blood Culture - Preliminary Culture in Progress Pleitez/IV: Voiding Method Toilet IV Catheter Type [Left Chest] Infusaport IV Catheter Type [Right Peripheral IV External Jugular] IV Catheter Type [Left INT / Saline Lock External Jugular] IV Catheter Type [Left Upper IVAD / Port arm] Active Medications - Current Medications Current Medications: Generic Name Dose Route Start Last Admin Trade Name Freq PRN Reason Stop Dose Admin Acetaminophen 650 mg 01/09/20 16:33 01/12/20 18:23 Tylenol PO 650 mg Q4H PRN Administration Pain MILD(1-3)/Fever >100.5/MEANS Lipase/Protease/Amylase 1 each 01/23/20 14:[address] 10,500 Unit FEEDTUBE PRN PRN For Clogged Feeding Tube Atorvastatin Calcium 40 mg 01/09/20 22:00 01/25/20 21:08 Lipitor PO 40 mg QHS PHILLY Administration Cyclobenzaprine HCl 5 mg 01/09/20 16:27 01/10/20 23:17 Flexeril PO 5 mg QHS PRN Administration Muscle Spasm Dextrose 50 ml 01/23/20 07:26 01/24/20 18:29 D50w (25gm) Syringe IV 50 ml Q30MIN PRN Administration BLOOD GLUCOSE < 70 Dextrose 25 ml 01/24/20 08:58 01/24/20 13:41 D50w (25gm) Syringe IV 25 ml Q4H PRN Administration BG < 80 MG/DL Diphenhydramine HCl 25 mg 01/09/20 16:15 01/12/20 00:50 Benadryl PO 25 mg Q8HR PRN Administration Itching Docusate Sodium 100 mg 01/25/20 22:00 01/25/20 21:08 Colace PO 100 mg BID PHILLY Administration Duloxetine HCl 30 mg 01/09/20 17:00 01/25/20 09:47 Cymbalta PO 30 mg QDAY PHILLY Administration Enoxaparin Sodium 80 mg 01/23/20 12:00 01/25/20 09:48 Enoxaparin SUB-Q 80 mg Q24HR PHILLY Administration Famotidine 20 mg 01/09/20 22:00 01/25/20 09:46 Pepcid PO 20 mg DAILY PHILLY Administration Fentanyl 50 mcg 01/23/20 15:36 01/23/20 15:54 Sublimaze IV 50 mcg Q10MIN PRN Administration ANALGESIA Norepinephrine 4 mg in 250 mls @ 7.5 mls/hr 01/21/20 18:00 01/25/20 16:30 Levophed Drip 4 Mg/Ns 250 Ml IV 2 mcg/min TITR PHILLY 7.5 mls/hr Administration Protocol 2 MCG/MIN Propofol 1,000 mg in 100 mls @ 2.265 mls/hr 01/22/20 09:00 01/26/20 05:15 Diprivan 10 Mg/Ml IV 20 mcg/kg/min TITR PHILLY 9.06 mls/hr Administration Protocol 5 MCG/KG/MIN Fentanyl Citrate 2,000 mcg in 100 mls @ 3.775 mls/hr 01/23/20 16:00 01/24/20 01:32 Fentanyl Drip Premix IV 0 mcg/kg/hr TITR PHILLY 0 mls/hr Titration Protocol 1 MCG/KG/HR Lorazepam 100 mg/ Sodium 100 mls @ 1 mls/hr 01/23/20 16:00 Chloride/ Miscellaneous IV Information TITR PHILLY Protocol 1 MG/HR Sodium Chloride 100 mls @ 999 mls/hr 01/25/20 08:29 Nacl 0.9% IV SILVERIO PRN Hypotension Sodium Chloride 100 mls @ 999 mls/hr 01/26/20 07:54 Nacl 0.9% IV SILVERIO PRN Hypotension Lorazepam 2 mg 01/23/20 15:36 Ativan IV Q10MIN PRN Agitation Ondansetron HCl 4 mg 01/09/20 16:33 01/20/20 10:19 Zofran IV 4 mg Q8H PRN Administration Nausea And Vomiting Simple Syrup 15 ml 01/23/20 14:28 Simple Syrup FEEDTUBE PRN PRN Hypoglycemia Simple Syrup 30 ml 01/23/20 14:28 Simple Syrup FEEDTUBE PRN PRN Hypoglycemia Sodium Bicarbonate 325 mg 01/23/20 14:28 Sodium Bicarbonate FEEDTUBE PRN PRN For Clogged Feeding Tube Sodium Chloride 10 ml 01/09/20 22:00 01/25/20 21:09 Sodium Chloride Flush Syringe 10 Ml IV 10 ml BID PHILLY Administration Sodium Chloride 10 ml 01/09/20 16:33 Sodium Chloride Flush Syringe 10 Ml IV PRN PRN LINE FLUSH Tramadol HCl 50 mg 01/16/20 13:07 01/20/20 10:19 Ultram PO 50 mg Q12HR PRN Administration Pain, Moderate (4-6) Valsartan 80 mg 01/10/20 10:00 01/25/20 09:47 Diovan PO 80 mg DAILY PHILLY Administration Nutrition/Malnutrition Assess - Dietary Evaluation Nutrition/Malnutrition Findings: Nutrition Notes Start: 01/17/20 13:49 Freq: Status: Active Protocol: Document 01/25/20 13:17 LM (Rec: 01/25/20 13:20 LM [email or web address]) Nutrition Notes Initial or Follow up Reassessment Current Diagnosis CKD (stage V CKD),Diabetes, Hypertension,Heart Failure, Respiratory Failure Other Pertinent Diagnosis Bilat pneu, COVID-19 (+), ARDS , volume overload, Chest pain Current Diet Nepro 1.8 at 35ml/hr Labs/Tests POC glu 136 Pertinent Medications Propofol at 2.265ml/hr (60 kcal) Levophed Height 5 ft 6 in Weight 75.5 kg [place] Body Weight (kg) 59.09 BMI 26.9 Subjective/Other Information Nepro running at goal rate and pt tolerating TF. Percent of energy/protein needs met: 95%/75% Burn Absent Trauma Absent Current % PO Negligible Minimum of two criteria Yes Interpretation of Weight Loss (non- 5% in 1 month severe) Fluid Accumulation Mild (non-severe) Reduced Assistant Plant Manager Strength Measurably Reduced (severe) #1 Nutrition Diagnosis Malnutrition Diagnosis Progress(for reassessment Continues documentation) Is patient on ventilator? No Is Patient Ambulatory and/or Out of Bed No [facility] [phone] Calculation Used for Recommendations [facility] Additional Notes Protein: 91-151g (1.2-2g/kg) Fluid: per MD Nutrition Intervention Change Diet Order: Continue TF Nutrition Support: Nepro 1.8 at 35ml/hr (goal rate) Flush 150ml q4h Kcal 1,512 Protein (gm) 68 Fluid (mL) 611 Goal #1 TF tolerance Goal #2 Meet at least 75% of energy and protein needs via TF Anticipated Discharge Needs: unable to determine at this time Follow-Up By: 02/01/20 Additional Comments F/U for TF tolerance
[2020-01-26] MEDS: ENOXAPARIN 80 MG/0.8 ML INJ SUB-Q SCH (10:43)
[2020-01-26] MEDS: DULoxetine 30 MG CAP PO SCH (10:43)
[2020-01-26] MEDS: VALSARTAN 40 MG TAB PO SCH (10:46)
[2020-01-26] MEDS: FAMOTIDINE 20 MG TAB PO SCH (10:47)
[2020-01-26] MEDS: DOCUSATE SODIUM 100 MG/10 ML ORAL LIQD PO SCH ×2 (10:47→22:13)
[2020-01-26] MEDS: ACETAMINOPHEN 325 MG TAB PO PRN (12:30)
--- NOTE | 2020-01-26 12:39 | Progress Note ---
Assessment and Plan - Patient Problems (1) ESRD needing dialysis Current Visit: No Status: Acute Plan to address problem: Patient on MWF schedule. Isolated UF session today. (2) Volume overload Current Visit: Yes Status: Acute Qualifiers: Plan to address problem: Goal is to optimize volume status with adequate fluid removal with HD. Evaluate daily for need of extra isolated UF sessions. Having isolated UF session today. (3) Pneumonia due to COVID-19 virus Current Visit: Yes Status: Acute Plan to address problem: Management per ID recommendations. (4) Hyponatremia Current Visit: No Status: Acute Plan to address problem: Possibly in the setting of fluid overload. improved at this time. (5) Hypertensive chronic kidney disease with stage 5 chronic kidney disease or end stage renal disease Current Visit: No Status: Chronic Plan to address problem: Monitor on current regimen. Now off all blood pressure medications, and in fact on pressors at present time. Will have ICU team titrate pressors so as to allow us to be aggressive in fluid removal with HD. (6) Anemia in CKD (chronic kidney disease) Current Visit: Yes Status: Acute Qualifiers: Chronic kidney disease stage: on chronic dialysis Qualified Code(s): N18.6 - End stage renal disease; D63.1 - Anemia in chronic kidney disease; Z99.2 - Dependence on renal dialysis Plan to address problem: CLARITA therapy with HD. (7) Secondary hyperparathyroidism (of renal origin) Current Visit: Yes Status: Chronic Plan to address problem: Continue on current outpatient phos binder regimen. Subjective Date of service: 01/26/20 Principal diagnosis: Pneumonia Interval history: No acute issues overnight. Receiving isolated UF session today. Remains intubated. PUI?: Yes COVID19: Positive Objective - Vital Signs Vital signs: Vital Signs - 12hr 01/26/20 01/26/20 01/26/20 00:45 01:00 01:15 Temperature Pulse Rate 98 H 99 H 100 H Pulse Rate [ From Monitor] Respiratory 14 14 14 Rate Blood Pressure 114/63 113/62 123/63 O2 Sat by Pulse 97 98 98 Oximetry O2 Sat by Pulse Oximetry [ Anterior Bilateral Throughout] O2 Sat by Pulse Oximetry [ Posterior Bilateral Throughout] 01/26/20 01/26/20 01/26/20 01:30 01:45 02:00 Temperature Pulse Rate 101 H 101 H 100 H Pulse Rate [ From Monitor] Respiratory 15 15 14 Rate Blood Pressure 126/62 121/60 128/63 O2 Sat by Pulse 98 98 98 Oximetry O2 Sat by Pulse Oximetry [ Anterior Bilateral Throughout] O2 Sat by Pulse Oximetry [ Posterior Bilateral Throughout] 01/26/20 01/26/20 01/26/20 02:15 02:30 02:45 Temperature Pulse Rate 101 H 100 H 101 H Pulse Rate [ From Monitor] Respiratory 14 14 15 Rate Blood Pressure 130/63 130/63 133/64 O2 Sat by Pulse 98 98 97 Oximetry O2 Sat by Pulse Oximetry [ Anterior Bilateral Throughout] O2 Sat by Pulse Oximetry [ Posterior Bilateral Throughout] 01/26/20 01/26/20 01/26/20 03:00 03:15 03:30 Temperature Pulse Rate 101 H 102 H 103 H Pulse Rate [ From Monitor] Respiratory 14 15 14 Rate Blood Pressure 142/64 140/66 143/69 O2 Sat by Pulse 97 97 97 Oximetry O2 Sat by Pulse Oximetry [ Anterior Bilateral Throughout] O2 Sat by Pulse Oximetry [ Posterior Bilateral Throughout] 01/26/20 01/26/20 01/26/20 03:45 04:00 04:15 Temperature Pulse Rate 102 H 107 H 103 H Pulse Rate [ 104 H From Monitor] Respiratory 14 14 15 Rate Blood Pressure 128/63 140/65 141/66 O2 Sat by Pulse 97 97 97 Oximetry O2 Sat by Pulse Oximetry [ Anterior Bilateral Throughout] O2 Sat by Pulse Oximetry [ Posterior Bilateral Throughout] 01/26/20 01/26/20 01/26/20 04:31 04:45 05:01 Temperature Pulse Rate 107 H 108 H 109 H Pulse Rate [ From Monitor] Respiratory 16 17 17 Rate Blood Pressure 131/74 131/74 130/73 O2 Sat by Pulse 97 96 96 Oximetry O2 Sat by Pulse Oximetry [ Anterior Bilateral Throughout] O2 Sat by Pulse Oximetry [ Posterior Bilateral Throughout] 01/26/20 01/26/20 01/26/20 05:15 05:31 05:45 Temperature Pulse Rate 110 H 100 H 100 H Pulse Rate [ From Monitor] Respiratory 15 20 13 Rate Blood Pressure 133/73 92/45 78/42 O2 Sat by Pulse 97 95 94 Oximetry O2 Sat by Pulse Oximetry [ Anterior Bilateral Throughout] O2 Sat by Pulse Oximetry [ Posterior Bilateral Throughout] 01/26/20 01/26/20 01/26/20 06:00 06:15 06:30 Temperature Pulse Rate 101 H 103 H 104 H Pulse Rate [ From Monitor] Respiratory 16 15 16 Rate Blood Pressure 102/54 138/66 150/68 O2 Sat by Pulse 95 97 97 Oximetry O2 Sat by Pulse Oximetry [ Anterior Bilateral Throughout] O2 Sat by Pulse Oximetry [ Posterior Bilateral Throughout] 01/26/20 01/26/20 01/26/20 06:45 07:01 07:15 Temperature Pulse Rate 104 H 106 H 105 H Pulse Rate [ From Monitor] Respiratory 16 15 16 Rate Blood Pressure 146/65 135/64 135/67 O2 Sat by Pulse 97 97 97 Oximetry O2 Sat by Pulse Oximetry [ Anterior Bilateral Throughout] O2 Sat by Pulse Oximetry [ Posterior Bilateral Throughout] 01/26/20 01/26/20 01/26/20 07:30 07:45 08:00 Temperature 101 F H Pulse Rate 104 H 104 H 104 H Pulse Rate [ From Monitor] Respiratory 16 16 17 Rate Blood Pressure 132/66 138/64 142/66 O2 Sat by Pulse 97 97 97 Oximetry O2 Sat by Pulse Oximetry [ Anterior Bilateral Throughout] O2 Sat by Pulse Oximetry [ Posterior Bilateral Throughout] 01/26/20 01/26/20 01/26/20 08:15 08:24 08:31 Temperature Pulse Rate 104 H 103 H 102 H Pulse Rate [ From Monitor] Respiratory 16 14 Rate Blood Pressure 141/63 125/62 125/62 O2 Sat by Pulse 97 98 97 Oximetry O2 Sat by Pulse Oximetry [ Anterior Bilateral Throughout] O2 Sat by Pulse Oximetry [ Posterior Bilateral Throughout] 01/26/20 01/26/20 01/26/20 08:41 08:51 09:00 Temperature Pulse Rate 101 H 103 H 103 H Pulse Rate [ From Monitor] Respiratory 22 25 H 30 H Rate Blood Pressure 125/62 125/65 125/65 O2 Sat by Pulse 95 97 97 Oximetry O2 Sat by Pulse Oximetry [ Anterior Bilateral Throughout] O2 Sat by Pulse Oximetry [ Posterior Bilateral Throughout] 01/26/20 01/26/20 01/26/20 09:15 09:30 09:45 Temperature Pulse Rate 102 H 102 H 101 H Pulse Rate [ From Monitor] Respiratory 31 H 29 H 25 H Rate Blood Pressure 138/66 141/69 141/69 O2 Sat by Pulse 96 96 97 Oximetry O2 Sat by Pulse Oximetry [ Anterior Bilateral Throughout] O2 Sat by Pulse Oximetry [ Posterior Bilateral Throughout] 01/26/20 01/26/20 01/26/20 10:00 10:15 10:30 Temperature Pulse Rate 101 H 102 H 100 H Pulse Rate [ From Monitor] Respiratory 25 H 27 H 23 Rate Blood Pressure 139/65 139/65 127/63 O2 Sat by Pulse 97 97 97 Oximetry O2 Sat by Pulse Oximetry [ Anterior Bilateral Throughout] O2 Sat by Pulse Oximetry [ Posterior Bilateral Throughout] 01/26/20 01/26/20 01/26/20 10:45 10:46 11:00 Temperature Pulse Rate 96 H 97 H 96 H Pulse Rate [ From Monitor] Respiratory 18 16 Rate Blood Pressure 127/63 114/60 112/50 O2 Sat by Pulse 97 96 Oximetry O2 Sat by Pulse Oximetry [ Anterior Bilateral Throughout] O2 Sat by Pulse Oximetry [ Posterior Bilateral Throughout] 01/26/20 01/26/20 01/26/20 11:15 11:30 11:36 Temperature 100.8 F H Pulse Rate 94 H 94 H 93 H Pulse Rate [ From Monitor] Respiratory 16 17 17 Rate Blood Pressure 112/50 117/54 112/54 O2 Sat by Pulse 97 96 Oximetry O2 Sat by Pulse 96 Oximetry [ Anterior Bilateral Throughout] O2 Sat by Pulse 96 Oximetry [ Posterior Bilateral Throughout] 01/26/20 01/26/20 01/26/20 11:45 12:00 12:15 Temperature Pulse Rate 96 H 96 H 94 H Pulse Rate [ From Monitor] Respiratory 22 Rate Blood Pressure 115/60 107/61 94/53 O2 Sat by Pulse 96 Oximetry O2 Sat by Pulse Oximetry [ Anterior Bilateral Throughout] O2 Sat by Pulse Oximetry [ Posterior Bilateral Throughout] - General Appearance General appearance: sedated on ventilator, intubated EENT: ATNC Neck: no JVD Respiratory: Present: Decreased Breath Sounds Cardiology: regular Gastrointestinal: normal Integumentary: no rash Musculoskeletal: deferred - Lab 01/25/20 03:50 01/22/20 07:47 Most recent lab results ABG pH 7.372 pH Units (7.350-7.450) 01/26/20 04:45 ABG pCO2 54.2 mm Hg 01/26/20 04:45 ABG pO2 86.8 mm Hg (80.0-90.0) 01/26/20 04:45 ABG HCO3 30.8 mmol/L (20.0-26.0) H 01/26/20 04:45 ABG O2 Saturation 97.0 % (95.0-99.0) 01/26/20 04:45 Calcium 9.0 mg/dL (8.4-10.2) 01/22/20 07:47 Phosphorus 3.30 mg/dL (2.5-4.5) 01/12/20 16:01 Magnesium 2.00 mg/dL (1.7-2.3) 01/13/20 06:11 Medications & Allergies - Medications Allergies/Adverse Reactions: Allergies cheese Allergy (Mild, Verified 12/20/19 10:19) Itching iodine Allergy (Mild, Verified 12/20/19 10:16) Anaphylaxis clonidine Allergy (Verified 12/19/19 04:13) Anaphylaxis shellfish derived Adverse Reaction (Verified 12/19/19 04:13) Angioedema Home Medications: Home Medications Medication Instructions Recorded Confirmed Last Taken Type Atorvastatin [Lipitor] 40 mg PO DAILY 11/06/19 01/13/20 01/02/20 10:00 History Acetaminophen [Acetaminophen 8 650 mg PO Q8H PRN #30 tablet.er 11/21/19 01/13/20 01/03/20 22:00 Rx Hour] Cyclobenzaprine HCl [Flexeril 5 MG 5 mg PO QHS PRN #20 tab 11/21/19 01/13/20 01/01/20 22:00 Rx TAB] HYDROcodone/APAP 5-325 [[place] 1 each PO Q6HR PRN #18 tablet 12/13/19 01/13/20 01/01/20 22:00 Rx 5-325 mg TAB] amLODIPine 10 mg PO DAILY 90 Days #90 tab 12/18/19 01/13/20 01/01/20 10:00 Rx Ibuprofen 800 mg PO TID 12/19/19 01/13/20 01/02/20 22:00 History Magnesium Oxide [Mag-Ox] 400 mg PO QDAY 12/19/19 01/13/20 01/03/20 10:00 History diphenhydrAMINE [Benadryl CAP] 25 mg PO Q8HR PRN 12/19/19 01/13/20 01/03/20 21:00 History labetaloL [Labetalol 100mg TAB] 100 mg PO Q8H #90 tablet 12/21/19 01/13/2001/01/20 10:00 Rx traMADoL [Ultram 50 MG tab] 50 mg PO Q6HR PRN #20 tablet 12/29/19 01/13/20 12/31/19 10:00 Rx DULoxetine [Cymbalta] 30 mg PO QDAY #30 capsule 01/04/20 01/13/20 Unknown Rx Valsartan [Diovan] 80 mg PO DAILY #30 tablet 01/04/20 01/13/20 Unknown Rx Active Medications: Generic Name Dose Route Start Last Admin Trade Name Freq PRN Reason Stop Dose Admin Acetaminophen 650 mg 01/09/20 16:33 01/26/20 12:30 Tylenol PO 650 mg Q4H PRN Administration Pain MILD(1-3)/Fever >100.5/MEANS Lipase/Protease/Amylase 1 each 01/23/20 14:[address] 10,500 Unit FEEDTUBE PRN PRN For Clogged Feeding Tube Atorvastatin Calcium 40 mg 01/09/20 22:00 01/25/20 21:08 Lipitor PO 40 mg QHS PHILLY Administration Cyclobenzaprine HCl 5 mg 01/09/20 16:27 01/10/20 23:17 Flexeril PO 5 mg QHS PRN Administration Muscle Spasm Dextrose 50 ml 01/23/20 07:26 01/24/20 18:29 D50w (25gm) Syringe IV 50 ml Q30MIN PRN Administration BLOOD GLUCOSE < 70 Dextrose 25 ml 01/24/20 08:58 01/24/20 13:41 D50w (25gm) Syringe IV 25 ml Q4H PRN Administration BG < 80 MG/DL Diphenhydramine HCl 25 mg 01/09/20 16:15 01/12/20 00:50 Benadryl PO 25 mg Q8HR PRN Administration Itching Docusate Sodium 100 mg 01/25/20 22:00 01/26/20 10:47 Colace PO 100 mg BID PHILLY Administration Duloxetine HCl 30 mg 01/09/20 17:00 01/26/20 10:43 Cymbalta PO 30 mg QDAY PHILLY Administration Enoxaparin Sodium 80 mg 01/23/20 12:00 01/26/20 10:43 Enoxaparin SUB-Q 80 mg Q24HR PHILLY Administration Famotidine 20 mg 01/09/20 22:00 01/26/20 10:47 Pepcid PO 20 mg DAILY PHILLY Administration Fentanyl 50 mcg 01/23/20 15:36 01/23/20 15:54 Sublimaze IV 50 mcg Q10MIN PRN Administration ANALGESIA Norepinephrine 4 mg in 250 mls @ 7.5 mls/hr 01/21/20 18:00 01/26/20 12:29 Levophed Drip 4 Mg/Ns 250 Ml IV 4 mcg/min TITR PHILLY 15 mls/hr Titration Protocol 2 MCG/MIN Propofol 1,000 mg in 100 mls @ 2.265 mls/hr 01/22/20 09:00 01/26/20 12:28 Diprivan 10 Mg/Ml IV 20 mcg/kg/min TITR PHILLY 9.06 mls/hr Administration Protocol 5 MCG/KG/MIN Fentanyl Citrate 2,000 mcg in 100 mls @ 3.775 mls/hr 01/23/20 16:00 01/24/20 01:32 Fentanyl Drip Premix IV 0 mcg/kg/hr TITR PHILLY 0 mls/hr Titration Protocol 1 MCG/KG/HR Lorazepam 100 mg/ Sodium 100 mls @ 1 mls/hr 01/23/20 16:00 Chloride/ Miscellaneous IV Information TITR HPILLY Protocol 1 MG/HR Sodium Chloride 100 mls @ 999 mls/hr 01/25/20 08:29 Nacl 0.9% IV SILVERIO PRN Hypotension Sodium Chloride 100 mls @ 999 mls/hr 01/26/20 07:54 Nacl 0.9% IV SILVERIO PRN Hypotension Lorazepam 2 mg 01/23/20 15:36 Ativan IV Q10MIN PRN Agitation Ondansetron HCl 4 mg 01/09/20 16:33 01/20/20 10:19 Zofran IV 4 mg Q8H PRN Administration Nausea And Vomiting Simple Syrup 15 ml 01/23/20 14:28 Simple Syrup FEEDTUBE PRN PRN Hypoglycemia Simple Syrup 30 ml 01/23/20 14:28 Simple Syrup FEEDTUBE PRN PRN Hypoglycemia Sodium Bicarbonate 325 mg 01/23/20 14:28 Sodium Bicarbonate FEEDTUBE PRN PRN For Clogged Feeding Tube Sodium Chloride 10 ml 01/09/20 22:00 01/26/20 11:00 Sodium Chloride Flush Syringe 10 Ml IV 10 ml BID PHILLY Administration Sodium Chloride 10 ml 01/09/20 16:33 Sodium Chloride Flush Syringe 10 Ml IV PRN PRN LINE FLUSH Tramadol HCl 50 mg 01/16/20 13:07 01/20/20 10:19 Ultram PO 50 mg Q12HR PRN Administration Pain, Moderate (4-6) Valsartan 80 mg 01/10/20 10:00 01/26/20 10:46 Diovan PO 80 mg DAILY PHILLY Administration
--- NOTE | 2020-01-26 12:57 | Progress Note ---
Assessment and Plan 64 y/o female with COVID positive, viral pneumonia with some pulmonary vascular congestion superimposed. 1. Continue to wean FiO2 for sats >88%. Will wean post HD session. 2. HD per renal. UF is definitely helping as changes can be seen in CXR. Per renal UF again today. Repeat CXR either tomorrow or Tuesday. 3. Changed back to prophylactic dosing for VTE as not confirmed the presence of VTE 4. Overall prognosis is guarded to poor, especially with prior history of ESRD on HD. Continue supportive care. IMS spoke with who has made patient a DNR. I have signed. Hopeful she can pull through but do agree with DNR status given evidence of increased mortality throughout [place] from this novel [place] virus. CCT 31 minutes. Subjective Date of service: 01/26/20 Principal diagnosis: Pneumonia Interval history: No acute events. HD about to start. PUI?: Yes COVID19: Positive Objective Vital Signs - 12hr 01/26/20 01/26/20 01/26/20 01:00 01:15 01:30 Temperature Pulse Rate 99 H 100 H 101 H Pulse Rate [ From Monitor] Respiratory 14 14 15 Rate Blood Pressure 113/62 123/63 126/62 O2 Sat by Pulse 98 98 98 Oximetry O2 Sat by Pulse Oximetry [ Anterior Bilateral Throughout] O2 Sat by Pulse Oximetry [ Posterior Bilateral Throughout] 01/26/20 01/26/20 01/26/20 01:45 02:00 02:15 Temperature Pulse Rate 101 H 100 H 101 H Pulse Rate [ From Monitor] Respiratory 15 14 14 Rate Blood Pressure 121/60 128/63 130/63 O2 Sat by Pulse 98 98 98 Oximetry O2 Sat by Pulse Oximetry [ Anterior Bilateral Throughout] O2 Sat by Pulse Oximetry [ Posterior Bilateral Throughout] 01/26/20 01/26/20 01/26/20 02:30 02:45 03:00 Temperature Pulse Rate 100 H 101 H 101 H Pulse Rate [ From Monitor] Respiratory 14 15 14 Rate Blood Pressure 130/63 133/64 142/64 O2 Sat by Pulse 98 97 97 Oximetry O2 Sat by Pulse Oximetry [ Anterior Bilateral Throughout] O2 Sat by Pulse Oximetry [ Posterior Bilateral Throughout] 01/26/20 01/26/20 01/26/20 03:15 03:30 03:45 Temperature Pulse Rate 102 H 103 H 102 H Pulse Rate [ From Monitor] Respiratory 15 14 14 Rate Blood Pressure 140/66 143/69 128/63 O2 Sat by Pulse 97 97 97 Oximetry O2 Sat by Pulse Oximetry [ Anterior Bilateral Throughout] O2 Sat by Pulse Oximetry [ Posterior Bilateral Throughout] 01/26/20 01/26/20 01/26/20 04:00 04:15 04:31 Temperature Pulse Rate 107 H 103 H 107 H Pulse Rate [ 104 H From Monitor] Respiratory 14 15 16 Rate Blood Pressure 140/65 141/66 131/74 O2 Sat by Pulse 97 97 97 Oximetry O2 Sat by Pulse Oximetry [ Anterior Bilateral Throughout] O2 Sat by Pulse Oximetry [ Posterior Bilateral Throughout] 01/26/20 01/26/20 01/26/20 04:45 05:01 05:15 Temperature Pulse Rate 108 H 109 H 110 H Pulse Rate [ From Monitor] Respiratory 17 17 15 Rate Blood Pressure 131/74 130/73 133/73 O2 Sat by Pulse 96 96 97 Oximetry O2 Sat by Pulse Oximetry [ Anterior Bilateral Throughout] O2 Sat by Pulse Oximetry [ Posterior Bilateral Throughout] 01/26/20 01/26/20 01/26/20 05:31 05:45 06:00 Temperature Pulse Rate 100 H 100 H 101 H Pulse Rate [ From Monitor] Respiratory 20 13 16 Rate Blood Pressure 92/45 78/42 102/54 O2 Sat by Pulse 95 94 95 Oximetry O2 Sat by Pulse Oximetry [ Anterior Bilateral Throughout] O2 Sat by Pulse Oximetry [ Posterior Bilateral Throughout] 01/26/20 01/26/20 01/26/20 06:15 06:30 06:45 Temperature Pulse Rate 103 H 104 H 104 H Pulse Rate [ From Monitor] Respiratory 15 16 16 Rate Blood Pressure 138/66 150/68 146/65 O2 Sat by Pulse 97 97 97 Oximetry O2 Sat by Pulse Oximetry [ Anterior Bilateral Throughout] O2 Sat by Pulse Oximetry [ Posterior Bilateral Throughout] 01/26/20 01/26/20 01/26/20 07:01 07:15 07:30 Temperature Pulse Rate 106 H 105 H 104 H Pulse Rate [ From Monitor] Respiratory 15 16 16 Rate Blood Pressure 135/64 135/67 132/66 O2 Sat by Pulse 97 97 97 Oximetry O2 Sat by Pulse Oximetry [ Anterior Bilateral Throughout] O2 Sat by Pulse Oximetry [ Posterior Bilateral Throughout] 01/26/20 01/26/20 01/26/20 07:45 08:00 08:15 Temperature 101 F H Pulse Rate 104 H 104 H 104 H Pulse Rate [ From Monitor] Respiratory 16 17 16 Rate Blood Pressure 138/64 142/66 141/63 O2 Sat by Pulse 97 97 97 Oximetry O2 Sat by Pulse Oximetry [ Anterior Bilateral Throughout] O2 Sat by Pulse Oximetry [ Posterior Bilateral Throughout] 01/26/20 01/26/20 01/26/20 08:24 08:31 08:41 Temperature Pulse Rate 103 H 102 H 101 H Pulse Rate [ From Monitor] Respiratory 14 22 Rate Blood Pressure 125/62 125/62 125/62 O2 Sat by Pulse 98 97 95 Oximetry O2 Sat by Pulse Oximetry [ Anterior Bilateral Throughout] O2 Sat by Pulse Oximetry [ Posterior Bilateral Throughout] 01/26/20 01/26/20 01/26/20 08:51 09:00 09:15 Temperature Pulse Rate 103 H 103 H 102 H Pulse Rate [ From Monitor] Respiratory 25 H 30 H 31 H Rate Blood Pressure 125/65 125/65 138/66 O2 Sat by Pulse 97 97 96 Oximetry O2 Sat by Pulse Oximetry [ Anterior Bilateral Throughout] O2 Sat by Pulse Oximetry [ Posterior Bilateral Throughout] 01/26/20 01/26/20 01/26/20 09:30 09:45 10:00 Temperature Pulse Rate 102 H 101 H 101 H Pulse Rate [ From Monitor] Respiratory 29 H 25 H 25 H Rate Blood Pressure 141/69 141/69 139/65 O2 Sat by Pulse 96 97 97 Oximetry O2 Sat by Pulse Oximetry [ Anterior Bilateral Throughout] O2 Sat by Pulse Oximetry [ Posterior Bilateral Throughout] 01/26/20 01/26/20 01/26/20 10:15 10:30 10:45 Temperature Pulse Rate 102 H 100 H 96 H Pulse Rate [ From Monitor] Respiratory 27 H 23 18 Rate Blood Pressure 139/65 127/63 127/63 O2 Sat by Pulse 97 97 97 Oximetry O2 Sat by Pulse Oximetry [ Anterior Bilateral Throughout] O2 Sat by Pulse Oximetry [ Posterior Bilateral Throughout] 01/26/20 01/26/20 01/26/20 10:46 11:00 11:15 Temperature Pulse Rate 97 H 96 H 94 H Pulse Rate [ From Monitor] Respiratory 16 16 Rate Blood Pressure 114/60 112/50 112/50 O2 Sat by Pulse 96 97 Oximetry O2 Sat by Pulse Oximetry [ Anterior Bilateral Throughout] O2 Sat by Pulse Oximetry [ Posterior Bilateral Throughout] 01/26/20 01/26/20 01/26/20 11:30 11:36 11:45 Temperature 100.8 F H Pulse Rate 94 H 93 H 96 H Pulse Rate [ From Monitor] Respiratory 17 17 22 Rate Blood Pressure 117/54 112/54 115/60 O2 Sat by Pulse 96 96 Oximetry O2 Sat by Pulse 96 Oximetry [ Anterior Bilateral Throughout] O2 Sat by Pulse 96 Oximetry [ Posterior Bilateral Throughout] 01/26/20 01/26/20 01/26/20 12:00 12:15 12:30 Temperature Pulse Rate 96 H 94 H 97 H Pulse Rate [ From Monitor] Respiratory Rate Blood Pressure 107/61 94/53 116/67 O2 Sat by Pulse Oximetry O2 Sat by Pulse Oximetry [ Anterior Bilateral Throughout] O2 Sat by Pulse Oximetry [ Posterior Bilateral Throughout] 01/26/20 12:45 Temperature Pulse Rate 100 H Pulse Rate [ From Monitor] Respiratory Rate Blood Pressure 104/59 O2 Sat by Pulse Oximetry O2 Sat by Pulse Oximetry [ Anterior Bilateral Throughout] O2 Sat by Pulse Oximetry [ Posterior Bilateral Throughout] Constitutional: other (orally intubated, not sedated currently on vent) Eyes: non-icteric ENT: oropharynx moist Neck: supple Effort: normal Ascultation: Bilateral: rales Cardiovascular: regular rate and rhythm (no mrg) Gastrointestinal: normoactive bowel sounds, soft, non-tender, non-distended Integumentary: normal Extremities: no cyanosis, no edema, pink and warm Neurologic: normal mental status, non-focal exam, pupils equal and round, CN II- XII normal Psychiatric: mood appropriate, affect normal CBC and BMP: 01/25/20 03:50 01/22/20 07:47 ABG, PT/INR, D-dimer: ABG ABG pH 7.372 pH Units (7.350-7.450) 01/26/20 04:45 ABG pCO2 54.2 mm Hg 01/26/20 04:45 ABG pO2 86.8 mm Hg (80.0-90.0) 01/26/20 04:45 ABG O2 Saturation 97.0 % (95.0-99.0) 01/26/20 04:45 PT/INR, D-dimer PT 15.6 Sec. (12.2-14.9) H 01/09/20 12:55 INR 1.22 (0.87-1.13) H 01/09/20 12:55 D-Dimer 3828.76 ng/mlDDU (0-234) H 01/26/20 02:31 Abnormal lab findings: Abnormal Labs 01/09/20 01/09/20 01/09/20 12:55 12:55 12:55 WBC 4.4 L RBC 3.44 L Hgb Hct RDW 17.0 H Plt Count Lymph % (Auto) 6.8 L [place] % (Auto) 13.6 H Lymph # 0.3 L Seg Neutrophils % 79.0 H Seg Neuts % (Manual) Lymphocytes % (Manual) Seg Neutrophils # Man Lymphocytes # (Manual) PT 15.6 H INR 1.22 H D-Dimer Heparin Anti-Xa Level ABG pH ABG pO2 ABG HCO3 ABG O2 Saturation ABG Base Excess ABG Hemoglobin Oxyhemoglobin Sodium 130 L Chloride 88.9 L Carbon Dioxide 20 L BUN 41 H Creatinine 7.6 H Glucose 115 H POC Glucose Calcium Magnesium Ferritin Alkaline Phosphatase 153 H Lactate Dehydrogenase Troponin T 0.382 H* C-Reactive Protein NT-Pro-B Natriuret Pep 76347 H Total Protein Albumin 3.2 L 01/09/20 01/10/20 01/10/20 20:14 00:16 06:54 WBC 3.3 L RBC 3.00 L Hgb 9.2 L Hct 27.8 L RDW 17.2 H Plt Count Lymph % (Auto) 8.9 L [place] % (Auto) 11.5 H Lymph # 0.3 L Seg Neutrophils % 79.1 H Seg Neuts % (Manual) Lymphocytes % (Manual) Seg Neutrophils # Man Lymphocytes # (Manual) PT INR D-Dimer Heparin Anti-Xa Level ABG pH ABG pO2 ABG HCO3 ABG O2 Saturation ABG Base Excess ABG Hemoglobin Oxyhemoglobin Sodium Chloride Carbon Dioxide BUN Creatinine Glucose POC Glucose Calcium Magnesium Ferritin Alkaline Phosphatase Lactate Dehydrogenase Troponin T 0.349 H* 0.328 H* C-Reactive Protein NT-Pro-B Natriuret Pep Total Protein Albumin 01/10/20 01/10/20 01/11/20 06:54 06:54 16:45 WBC RBC Hgb Hct RDW Plt Count Lymph % (Auto) [place] % (Auto) Lymph # Seg Neutrophils % Seg Neuts % (Manual) Lymphocytes % (Manual) Seg Neutrophils # Man Lymphocytes # (Manual) PT INR D-Dimer Heparin Anti-Xa Level ABG pH ABG pO2 ABG HCO3 ABG O2 Saturation ABG Base Excess ABG Hemoglobin Oxyhemoglobin Sodium 133 L Chloride 90.6 L Carbon Dioxide BUN 50 H Creatinine 8.4 H Glucose 101 H POC Glucose 106 H Calcium 8.1 L Magnesium Ferritin Alkaline Phosphatase 148 H Lactate Dehydrogenase Troponin T 0.315 H* C-Reactive Protein NT-Pro-B Natriuret Pep Total Protein 5.4 L Albumin 2.7 L 01/12/20 01/13/20 01/13/20 16:01 06:11 06:11 WBC 3.1 L RBC 3.25 L Hgb 9.8 L Hct RDW 17.2 H Plt Count 136 L Lymph % (Auto) [place] % (Auto) Lymph # Seg Neutrophils % Seg Neuts % (Manual) Lymphocytes % (Manual) Seg Neutrophils # Man Lymphocytes # (Manual) PT INR D-Dimer Heparin Anti-Xa Level ABG pH ABG pO2 ABG HCO3 ABG O2 Saturation ABG Base Excess ABG Hemoglobin Oxyhemoglobin Sodium 135 L Chloride 93.4 L Carbon Dioxide BUN 19 H Creatinine 4.5 H Glucose 120 H POC Glucose Calcium 7.8 L Magnesium 1.40 L Ferritin Alkaline Phosphatase Lactate Dehydrogenase Troponin T C-Reactive Protein NT-Pro-B Natriuret Pep Total Protein Albumin 01/16/20 01/16/20 01/16/20 08:35 11:49 14:11 WBC RBC Hgb Hct RDW Plt Count Lymph % (Auto) [place] % (Auto) Lymph # Seg Neutrophils % Seg Neuts % (Manual) Lymphocytes % (Manual) Seg Neutrophils # Man Lymphocytes # (Manual) PT INR D-Dimer Heparin Anti-Xa Level ABG pH ABG pO2 48.4 L ABG HCO3 30.5 H ABG O2 Saturation 81.9 L ABG Base Excess 4.6 H ABG Hemoglobin 10.5 L Oxyhemoglobin 80.1 L Sodium Chloride Carbon Dioxide BUN Creatinine Glucose POC Glucose 126 H 119 H Calcium Magnesium Ferritin Alkaline Phosphatase Lactate Dehydrogenase Troponin T C-Reactive Protein NT-Pro-B Natriuret Pep Total Protein Albumin 01/16/20 01/16/20 01/16/20 15:38 15:38 15:38 WBC RBC Hgb Hct RDW Plt Count Lymph % (Auto) [place] % (Auto) Lymph # Seg Neutrophils % Seg Neuts % (Manual) Lymphocytes % (Manual) Seg Neutrophils # Man Lymphocytes # (Manual) PT INR D-Dimer 1104.64 H Heparin Anti-Xa Level ABG pH ABG pO2 ABG HCO3 ABG O2 Saturation ABG Base Excess ABG Hemoglobin Oxyhemoglobin Sodium Chloride Carbon Dioxide BUN Creatinine Glucose POC Glucose Calcium Magnesium Ferritin > 2000.0 H Alkaline Phosphatase Lactate Dehydrogenase 690 H Troponin T C-Reactive Protein 24.10 H NT-Pro-B Natriuret Pep Total Protein Albumin 01/16/20 01/18/20 01/18/20 18:11 06:25 06:25 WBC RBC 3.15 L Hgb 9.4 L Hct 29.4 L RDW 17.5 H Plt Count 135 L Lymph % (Auto) 3.8 L [place] % (Auto) Lymph # 0.2 L Seg Neutrophils % 88.8 H Seg Neuts % (Manual) Lymphocytes % (Manual) Seg Neutrophils # Man Lymphocytes # (Manual) PT INR D-Dimer Heparin Anti-Xa Level ABG pH ABG pO2 ABG HCO3 ABG O2 Saturation ABG Base Excess ABG Hemoglobin Oxyhemoglobin Sodium Chloride 96.8 L Carbon Dioxide BUN 26 H Creatinine 4.2 H Glucose 115 H POC Glucose 130 H Calcium 8.2 L Magnesium Ferritin Alkaline Phosphatase Lactate Dehydrogenase 537 H Troponin T C-Reactive Protein 17.10 H NT-Pro-B Natriuret Pep Total Protein Albumin 01/18/20 01/18/20 01/18/20 06:25 06:25 12:15 WBC RBC Hgb Hct RDW Plt Count Lymph % (Auto) [place] % (Auto) Lymph # Seg Neutrophils % Seg Neuts % (Manual) Lymphocytes % (Manual) Seg Neutrophils # Man Lymphocytes # (Manual) PT INR D-Dimer 938.03 H Heparin Anti-Xa Level ABG pH ABG pO2 66.5 L ABG HCO3 30.1 H ABG O2 Saturation 93.2 L ABG Base Excess 4.6 H ABG Hemoglobin 10.0 L Oxyhemoglobin 91.3 L Sodium Chloride Carbon Dioxide BUN Creatinine Glucose POC Glucose Calcium Magnesium Ferritin 3105.0 H Alkaline Phosphatase Lactate Dehydrogenase Troponin T C-Reactive Protein NT-Pro-B Natriuret Pep Total Protein Albumin 01/20/20 01/20/20 01/20/20 07:37 07:37 07:37 WBC RBC Hgb Hct RDW Plt Count Lymph % (Auto) [place] % (Auto) Lymph # Seg Neutrophils % Seg Neuts % (Manual) Lymphocytes % (Manual) Seg Neutrophils # Man Lymphocytes # (Manual) PT INR D-Dimer 2072.25 H Heparin Anti-Xa Level ABG pH ABG pO2 ABG HCO3 ABG O2 Saturation ABG Base Excess ABG Hemoglobin Oxyhemoglobin Sodium Chloride Carbon Dioxide BUN Creatinine Glucose POC Glucose Calcium Magnesium Ferritin 1826.0 H Alkaline Phosphatase Lactate Dehydrogenase 496 H Troponin T C-Reactive Protein 19.30 H NT-Pro-B Natriuret Pep Total Protein Albumin 01/20/20 01/21/20 01/21/20 17:30 03:59 17:35 WBC RBC Hgb Hct RDW Plt Count Lymph % (Auto) [place] % (Auto) Lymph # Seg Neutrophils % Seg Neuts % (Manual) Lymphocytes % (Manual) Seg Neutrophils # Man Lymphocytes # (Manual) PT INR D-Dimer Heparin Anti-Xa Level ABG pH ABG pO2 61.1 L 67.4 L ABG HCO3 29.9 H 26.2 H ABG O2 Saturation 91.7 L 93.4 L ABG Base Excess 4.9 H ABG Hemoglobin 9.0 L 9.1 L Oxyhemoglobin 89.5 L 91.1 L Sodium 136 L Chloride Carbon Dioxide BUN 36 H Creatinine 4.9 H Glucose POC Glucose Calcium Magnesium Ferritin Alkaline Phosphatase Lactate Dehydrogenase Troponin T C-Reactive Protein NT-Pro-B Natriuret Pep Total Protein Albumin 01/21/20 01/22/20 01/22/20 Unknown 03:41 03:41 WBC RBC Hgb Hct RDW Plt Count Lymph % (Auto) [place] % (Auto) Lymph # Seg Neutrophils % Seg Neuts % (Manual) Lymphocytes % (Manual) Seg Neutrophils # Man Lymphocytes # (Manual) PT INR D-Dimer Heparin Anti-Xa Level ABG pH 7.465 H ABG pO2 48.9 L ABG HCO3 26.6 H ABG O2 Saturation 85.7 L ABG Base Excess ABG Hemoglobin 10.4 L Oxyhemoglobin 83.5 L Sodium Chloride Carbon Dioxide BUN Creatinine Glucose POC Glucose Calcium Magnesium Ferritin 6071.0 H Alkaline Phosphatase Lactate Dehydrogenase 963 H Troponin T C-Reactive Protein 30.00 H NT-Pro-B Natriuret Pep Total Protein Albumin 01/22/20 01/22/20 01/22/20 03:41 07:47 11:20 WBC RBC Hgb Hct RDW Plt Count Lymph % (Auto) [place] % (Auto) Lymph # Seg Neutrophils % Seg Neuts % (Manual) Lymphocytes % (Manual) Seg Neutrophils # Man Lymphocytes # (Manual) PT INR D-Dimer > 02034 H Heparin Anti-Xa Level ABG pH ABG pO2 66.7 L ABG HCO3 28.7 H ABG O2 Saturation 91.9 L ABG Base Excess ABG Hemoglobin 9.1 L Oxyhemoglobin 89.5 L Sodium Chloride 94.3 L Carbon Dioxide BUN 53 H Creatinine 6.5 H Glucose POC Glucose Calcium Magnesium Ferritin Alkaline Phosphatase Lactate Dehydrogenase Troponin T C-Reactive Protein NT-Pro-B Natriuret Pep Total Protein Albumin 01/22/20 01/22/20 01/23/20 11:49 Unknown 04:55 WBC 15.1 H RBC 3.05 L Hgb 8.8 L Hct 28.3 L RDW 17.8 H Plt Count 125 L Lymph % (Auto) [place] % (Auto) Lymph # Seg Neutrophils % Seg Neuts % (Manual) Lymphocytes % (Manual) Seg Neutrophils # Man Lymphocytes # (Manual) PT INR D-Dimer Heparin Anti-Xa Level ABG pH 7.340 L ABG pO2 77.7 L 136.3 H ABG HCO3 27.6 H 28.8 H ABG O2 Saturation ABG Base Excess ABG Hemoglobin 9.3 L 10.9 L Oxyhemoglobin 94.2 L Sodium Chloride Carbon Dioxide BUN Creatinine Glucose POC Glucose Calcium Magnesium Ferritin Alkaline Phosphatase Lactate Dehydrogenase Troponin T C-Reactive Protein NT-Pro-B Natriuret Pep Total Protein Albumin 01/23/20 01/23/20 01/23/20 06:23 07:07 12:23 WBC RBC Hgb Hct RDW Plt Count Lymph % (Auto) [place] % (Auto) Lymph # Seg Neutrophils % Seg Neuts % (Manual) Lymphocytes % (Manual) Seg Neutrophils # Man Lymphocytes # (Manual) PT INR D-Dimer Heparin Anti-Xa Level ABG pH ABG pO2 ABG HCO3 ABG O2 Saturation ABG Base Excess ABG Hemoglobin Oxyhemoglobin Sodium Chloride Carbon Dioxide BUN Creatinine Glucose POC Glucose 57 L 127 H 131 H Calcium Magnesium Ferritin Alkaline Phosphatase Lactate Dehydrogenase Troponin T C-Reactive Protein NT-Pro-B Natriuret Pep Total Protein Albumin 01/23/20 01/23/20 01/24/20 Unknown Unknown 04:00 WBC 16.2 H RBC 3.08 L Hgb 8.9 L Hct 28.6 L RDW 17.8 H Plt Count 139 L Lymph % (Auto) [place] % (Auto) Lymph # Seg Neutrophils % Seg Neuts % (Manual) Lymphocytes % (Manual) Seg Neutrophils # Man Lymphocytes # (Manual) PT INR D-Dimer Heparin Anti-Xa Level < 0.10 L ABG pH ABG pO2 ABG HCO3 ABG O2 Saturation ABG Base Excess ABG Hemoglobin Oxyhemoglobin Sodium Chloride Carbon Dioxide BUN Creatinine Glucose POC Glucose Calcium Magnesium Ferritin 4195.0 H Alkaline Phosphatase Lactate Dehydrogenase Troponin T C-Reactive Protein NT-Pro-B Natriuret Pep Total Protein Albumin 01/24/20 01/24/20 01/24/20 04:00 04:00 04:00 WBC RBC Hgb Hct RDW Plt Count Lymph % (Auto) [place] % (Auto) Lymph # Seg Neutrophils % Seg Neuts % (Manual) Lymphocytes % (Manual) Seg Neutrophils # Man Lymphocytes # (Manual) PT INR D-Dimer 5783.11 H Heparin Anti-Xa Level ABG pH 7.188 L* ABG pO2 70.8 L ABG HCO3 32.2 H ABG O2 Saturation 90.4 L ABG Base Excess ABG Hemoglobin 8.5 L Oxyhemoglobin 88.1 L Sodium Chloride Carbon Dioxide BUN Creatinine Glucose POC Glucose Calcium Magnesium Ferritin Alkaline Phosphatase Lactate Dehydrogenase 474 H Troponin T C-Reactive Protein 29.80 H NT-Pro-B Natriuret Pep Total Protein Albumin 01/24/20 01/24/20 01/24/20 05:20 05:51 09:14 WBC RBC Hgb Hct RDW Plt Count Lymph % (Auto) [place] % (Auto) Lymph # Seg Neutrophils % Seg Neuts % (Manual) Lymphocytes % (Manual) Seg Neutrophils # Man Lymphocytes # (Manual) PT INR D-Dimer Heparin Anti-Xa Level ABG pH 7.214 L ABG pO2 71.7 L ABG HCO3 31.5 H ABG O2 Saturation 91.8 L ABG Base Excess ABG Hemoglobin 9.1 L Oxyhemoglobin 89.3 L Sodium Chloride Carbon Dioxide BUN Creatinine Glucose POC Glucose 50 L 53 L Calcium Magnesium Ferritin Alkaline Phosphatase Lactate Dehydrogenase Troponin T C-Reactive Protein NT-Pro-B Natriuret Pep Total Protein Albumin 01/24/20 01/24/20 01/24/20 15:10 18:04 21:10 WBC RBC Hgb Hct RDW Plt Count Lymph % (Auto) [place] % (Auto) Lymph # Seg Neutrophils % Seg Neuts % (Manual) Lymphocytes % (Manual) Seg Neutrophils # Man Lymphocytes # (Manual) PT INR D-Dimer Heparin Anti-Xa Level ABG pH ABG pO2 ABG HCO3 ABG O2 Saturation ABG Base Excess ABG Hemoglobin Oxyhemoglobin Sodium Chloride Carbon Dioxide BUN Creatinine Glucose POC Glucose 114 H 51 L 144 H Calcium Magnesium Ferritin Alkaline Phosphatase Lactate Dehydrogenase Troponin T C-Reactive Protein NT-Pro-B Natriuret Pep Total Protein Albumin 01/24/20 01/25/20 01/25/20 Unknown 00:32 03:50 WBC 13.0 H RBC 3.10 L Hgb 9.2 L Hct 29.0 L RDW 17.7 H Plt Count Lymph % (Auto) [place] % (Auto) Lymph # Seg Neutrophils % Seg Neuts % (Manual) 92.0 H Lymphocytes % (Manual) 5.0 L Seg Neutrophils # Man 12.0 H Lymphocytes # (Manual) 0.7 L PT INR D-Dimer Heparin Anti-Xa Level ABG pH 7.291 L ABG pO2 71.3 L ABG HCO3 30.6 H ABG O2 Saturation 93.6 L ABG Base Excess 3.3 H ABG Hemoglobin 8.1 L Oxyhemoglobin 91.2 L Sodium Chloride Carbon Dioxide BUN Creatinine Glucose POC Glucose 114 H Calcium Magnesium Ferritin Alkaline Phosphatase Lactate Dehydrogenase Troponin T C-Reactive Protein NT-Pro-B Natriuret Pep Total Protein Albumin 01/25/20 01/25/20 01/25/20 04:22 06:05 17:28 WBC RBC Hgb Hct RDW Plt Count Lymph % (Auto) [place] % (Auto) Lymph # Seg Neutrophils % Seg Neuts % (Manual) Lymphocytes % (Manual) Seg Neutrophils # Man Lymphocytes # (Manual) PT INR D-Dimer Heparin Anti-Xa Level ABG pH 7.304 L ABG pO2 69.5 L ABG HCO3 29.7 H ABG O2 Saturation 93.2 L ABG Base Excess ABG Hemoglobin 8.7 L Oxyhemoglobin 90.7 L Sodium Chloride Carbon Dioxide BUN Creatinine Glucose POC Glucose 136 H 127 H Calcium Magnesium Ferritin Alkaline Phosphatase Lactate Dehydrogenase Troponin T C-Reactive Protein NT-Pro-B Natriuret Pep Total Protein Albumin 01/26/20 01/26/20 01/26/20 00:20 02:31 02:31 WBC RBC Hgb Hct RDW Plt Count Lymph % (Auto) [place] % (Auto) Lymph # Seg Neutrophils % Seg Neuts % (Manual) Lymphocytes % (Manual) Seg Neutrophils # Man Lymphocytes # (Manual) PT INR D-Dimer Heparin Anti-Xa Level ABG pH ABG pO2 ABG HCO3 ABG O2 Saturation ABG Base Excess ABG Hemoglobin Oxyhemoglobin Sodium Chloride Carbon Dioxide BUN Creatinine Glucose POC Glucose 127 H Calcium Magnesium Ferritin 3764.0 H Alkaline Phosphatase Lactate Dehydrogenase 393 H Troponin T C-Reactive Protein 28.60 H NT-Pro-B Natriuret Pep Total Protein Albumin 01/26/20 01/26/20 01/26/20 02:31 04:45 05:24 WBC RBC Hgb Hct RDW Plt Count Lymph % (Auto) [place] % (Auto) Lymph # Seg Neutrophils % Seg Neuts % (Manual) Lymphocytes % (Manual) Seg Neutrophils # Man Lymphocytes # (Manual) PT INR D-Dimer 3828.76 H Heparin Anti-Xa Level ABG pH ABG pO2 ABG HCO3 30.8 H ABG O2 Saturation ABG Base Excess 4.9 H ABG Hemoglobin 7.4 L Oxyhemoglobin 94.6 L Sodium Chloride Carbon Dioxide BUN Creatinine Glucose POC Glucose 121 H Calcium Magnesium Ferritin Alkaline Phosphatase Lactate Dehydrogenase Troponin T C-Reactive Protein NT-Pro-B Natriuret Pep Total Protein Albumin 01/26/20 12:36 WBC RBC Hgb Hct RDW Plt Count Lymph % (Auto) [place] % (Auto) Lymph # Seg Neutrophils % Seg Neuts % (Manual) Lymphocytes % (Manual) Seg Neutrophils # Man Lymphocytes # (Manual) PT INR D-Dimer Heparin Anti-Xa Level ABG pH ABG pO2 ABG HCO3 ABG O2 Saturation ABG Base Excess ABG Hemoglobin Oxyhemoglobin Sodium Chloride Carbon Dioxide BUN Creatinine Glucose POC Glucose 126 H Calcium Magnesium Ferritin Alkaline Phosphatase Lactate Dehydrogenase Troponin T C-Reactive Protein NT-Pro-B Natriuret Pep Total Protein Albumin Allied health notes reviewed: nursing
[2020-01-26] MEDS: NORepinephrine/NS 4 MG-250 ML 4 MG/250 ML BAG IV SCH (16:02)
[2020-01-27 05:03] LABS: ABG Base Excess 3.4 mmol/L (-2.0-3.0); ABG HCO3 30.5 mmol/L (20.0-26.0); ABG Methemoglobin 0.6 % (0.0-1.5); ABG Oxygen Saturation 96.8 % (95.0-99.0); ABG PCO2 62.4 mm Hg; ABG PH 7.307 pH Units (7.350-7.450); ABG PO2 91.1 mm Hg (80.0-90.0)
--- NOTE | 2020-01-27 05:58 | Progress Note ---
Assessment and Plan - Patient Problems (1) ESRD needing dialysis Current Visit: No Status: Acute Plan to address problem: Patient on MWF schedule. Next HD session for tomorrow. (2) Volume overload Current Visit: Yes Status: Acute Qualifiers: Plan to address problem: Goal is to optimize volume status with adequate fluid removal with HD. Evaluate daily for need of extra isolated UF sessions. (3) Pneumonia due to COVID-19 virus Current Visit: Yes Status: Acute Plan to address problem: Management per ID recommendations. (4) Hyponatremia Current Visit: No Status: Acute Plan to address problem: Possibly in the setting of fluid overload. improved at this time. (5) Hypertensive chronic kidney disease with stage 5 chronic kidney disease or end stage renal disease Current Visit: No Status: Chronic Plan to address problem: Monitor on current regimen. Now off all blood pressure medications, and in fact on pressors at present time. Will have ICU team titrate pressors so as to allow us to be aggressive in fluid removal with HD. (6) Anemia in CKD (chronic kidney disease) Current Visit: Yes Status: Acute Qualifiers: Chronic kidney disease stage: on chronic dialysis Qualified Code(s): N18.6 - End stage renal disease; D63.1 - Anemia in chronic kidney disease; Z99.2 - Dependence on renal dialysis Plan to address problem: CLARITA therapy with HD. (7) Secondary hyperparathyroidism (of renal origin) Current Visit: Yes Status: Chronic Plan to address problem: Continue on current outpatient phos binder regimen. Subjective Date of service: 01/27/20 Principal diagnosis: Pneumonia Interval history: No acute issues overnight. Received isolated UF yesterday with removal of 2.5L. Plan for next HD session tomorrow. PUI?: Yes COVID19: Positive Objective - Vital Signs Vital signs: Vital Signs - 12hr 01/26/20 01/26/20 01/26/20 18:00 18:15 18:30 Pulse Rate 98 H 98 H 98 H Pulse Rate [ From Monitor] Respiratory 18 22 21 Rate Blood Pressure 112/58 103/59 106/57 O2 Sat by Pulse Oximetry 01/26/20 01/26/20 01/26/20 18:45 18:51 19:01 Pulse Rate 99 H 100 H 102 H Pulse Rate [ From Monitor] Respiratory 18 17 19 Rate Blood Pressure 114/62 114/62 134/75 O2 Sat by Pulse Oximetry 01/26/20 01/26/20 01/26/20 19:03 19:15 19:30 Pulse Rate 102 H 103 H 105 H Pulse Rate [ From Monitor] Respiratory 23 22 25 H Rate Blood Pressure 134/75 114/62 150/78 O2 Sat by Pulse Oximetry 01/26/20 01/26/20 01/26/20 19:45 20:00 20:01 Pulse Rate 105 H 104 H 105 H Pulse Rate [ 104 H From Monitor] Respiratory 21 24 20 Rate Blood Pressure 142/79 140/73 O2 Sat by Pulse 98 Oximetry 01/26/20 01/26/20 01/26/20 20:15 20:20 20:30 Pulse Rate 105 H 104 H 104 H Pulse Rate [ From Monitor] Respiratory 22 18 Rate Blood Pressure 150/78 139/75 138/72 O2 Sat by Pulse 99 Oximetry 01/26/20 01/26/20 01/26/20 20:45 21:00 21:15 Pulse Rate 103 H 107 H 103 H Pulse Rate [ From Monitor] Respiratory 16 17 17 Rate Blood Pressure 138/72 114/72 126/72 O2 Sat by Pulse Oximetry 01/26/20 01/26/20 01/26/20 21:30 21:45 22:00 Pulse Rate 104 H 105 H 106 H Pulse Rate [ From Monitor] Respiratory 17 17 16 Rate Blood Pressure 141/76 141/76 141/74 O2 Sat by Pulse Oximetry 01/26/20 01/26/20 01/26/20 22:15 22:30 22:45 Pulse Rate 103 H 102 H 100 H Pulse Rate [ From Monitor] Respiratory 19 21 19 Rate Blood Pressure 141/74 130/69 141/73 O2 Sat by Pulse Oximetry 01/26/20 01/26/20 01/26/20 23:01 23:15 23:30 Pulse Rate 98 H 99 H 99 H Pulse Rate [ From Monitor] Respiratory 19 22 21 Rate Blood Pressure 119/65 119/65 123/63 O2 Sat by Pulse Oximetry 01/26/20 01/26/20 01/27/20 23:44 23:45 00:00 Pulse Rate 99 H 99 H 99 H Pulse Rate [ 98 H From Monitor] Respiratory 22 22 Rate Blood Pressure 114/62 114/62 119/61 O2 Sat by Pulse 98 98 Oximetry 01/27/20 01/27/20 01/27/20 00:15 00:30 00:45 Pulse Rate 98 H 97 H 98 H Pulse Rate [ From Monitor] Respiratory 22 22 17 Rate Blood Pressure 119/61 121/60 121/60 O2 Sat by Pulse Oximetry 01/27/20 01/27/20 01/27/20 01:00 01:15 01:30 Pulse Rate 97 H 97 H 97 H Pulse Rate [ From Monitor] Respiratory 17 20 24 Rate Blood Pressure 123/63 123/63 120/59 O2 Sat by Pulse Oximetry 01/27/20 01/27/20 01/27/20 01:45 02:00 02:15 Pulse Rate 97 H 97 H 97 H Pulse Rate [ From Monitor] Respiratory 22 19 16 Rate Blood Pressure 114/58 115/62 120/59 O2 Sat by Pulse Oximetry 01/27/20 03:43 Pulse Rate 97 H Pulse Rate [ From Monitor] Respiratory Rate Blood Pressure 124/61 O2 Sat by Pulse 98 Oximetry - General Appearance General appearance: chronically ill, intubated, frail EENT: ATNC Neck: no JVD Respiratory: Present: Decreased Breath Sounds Cardiology: regular Gastrointestinal: normal Integumentary: no rash Musculoskeletal: deferred - Lab 01/25/20 03:50 01/22/20 07:47 Most recent lab results ABG pH 7.307 pH Units (7.350-7.450) L 01/27/20 03:45 ABG pCO2 62.4 mm Hg 01/27/20 03:45 ABG pO2 91.1 mm Hg (80.0-90.0) H 01/27/20 03:45 ABG HCO3 30.5 mmol/L (20.0-26.0) H 01/27/20 03:45 ABG O2 Saturation 96.8 % (95.0-99.0) 01/27/20 03:45 Calcium 9.0 mg/dL (8.4-10.2) 01/22/20 07:47 Phosphorus 3.30 mg/dL (2.5-4.5) 01/12/20 16:01 Magnesium 2.00 mg/dL (1.7-2.3) 01/13/20 06:11 - Imaging Chest x-ray: image reviewed - Allied health notes Allied health notes reviewed: nursing Medications & Allergies - Medications Allergies/Adverse Reactions: Allergies cheese Allergy (Mild, Verified 12/20/19 10:19) Itching iodine Allergy (Mild, Verified 12/20/19 10:16) Anaphylaxis clonidine Allergy (Verified 12/19/19 04:13) Anaphylaxis shellfish derived Adverse Reaction (Verified 12/19/19 04:13) Angioedema Home Medications: Home Medications Medication Instructions Recorded Confirmed Last Taken Type Atorvastatin [Lipitor] 40 mg PO DAILY 11/06/19 01/13/20 01/02/20 10:00 History Acetaminophen [Acetaminophen 8 650 mg PO Q8H PRN #30 tablet.er 11/21/19 01/13/20 01/03/20 22:00 Rx Hour] Cyclobenzaprine HCl [Flexeril 5 MG 5 mg PO QHS PRN #20 tab 11/21/19 01/13/20 01/01/20 22:00 Rx TAB] HYDROcodone/APAP 5-325 [[place] 1 each PO Q6HR PRN #18 tablet 12/13/19 01/13/20 01/01/20 22:00 Rx 5-325 mg TAB] amLODIPine 10 mg PO DAILY 90 Days #90 tab 12/18/19 01/13/20 01/01/20 10:00 Rx Ibuprofen 800 mg PO TID 12/19/19 01/13/20 01/02/20 22:00 History Magnesium Oxide [Mag-Ox] 400 mg PO QDAY 12/19/19 01/13/20 01/03/20 10:00 History diphenhydrAMINE [Benadryl CAP] 25 mg PO Q8HR PRN 12/19/19 01/13/20 01/03/20 21:00 History labetaloL [Labetalol 100mg TAB] 100 mg PO Q8H #90 tablet 12/21/19 01/13/2012/15 10:00 Rx traMADoL [Ultram 50 MG tab] 50 mg PO Q6HR PRN #20 tablet 12/29/19 01/13/20 12/31/19 10:00 Rx DULoxetine [Cymbalta] 30 mg PO QDAY #30 capsule 01/04/20 01/13/20 Unknown Rx Valsartan [Diovan] 80 mg PO DAILY #30 tablet 01/04/20 01/13/20 Unknown Rx Active Medications: Generic Name Dose Route Start Last Admin Trade Name Freq PRN Reason Stop Dose Admin Acetaminophen 650 mg 01/09/20 16:33 01/26/20 12:30 Tylenol PO 650 mg Q4H PRN Administration Pain MILD(1-3)/Fever >100.5/MEANS Lipase/Protease/Amylase 1 each 01/23/20 14:[address] 10,500 Unit FEEDTUBE PRN PRN For Clogged Feeding Tube Atorvastatin Calcium 40 mg 01/09/20 22:00 01/26/20 22:13 Lipitor PO 40 mg QHS PHILLY Administration Cyclobenzaprine HCl 5 mg 01/09/20 16:27 01/10/20 23:17 Flexeril PO 5 mg QHS PRN Administration Muscle Spasm Dextrose 50 ml 01/23/20 07:26 01/24/20 18:29 D50w (25gm) Syringe IV 50 ml Q30MIN PRN Administration BLOOD GLUCOSE < 70 Dextrose 25 ml 01/24/20 08:58 01/24/20 13:41 D50w (25gm) Syringe IV 25 ml Q4H PRN Administration BG < 80 MG/DL Diphenhydramine HCl 25 mg 01/09/20 16:15 01/12/20 00:50 Benadryl PO 25 mg Q8HR PRN Administration Itching Docusate Sodium 100 mg 01/25/20 22:00 01/26/20 22:13 Colace PO 100 mg BID PHILLY Administration Duloxetine HCl 30 mg 01/09/20 17:00 01/26/20 10:43 Cymbalta PO 30 mg QDAY PHILLY Administration Enoxaparin Sodium 80 mg 01/23/20 12:00 01/26/20 10:43 Enoxaparin SUB-Q 80 mg Q24HR PHILLY Administration Famotidine 20 mg 01/09/20 22:00 01/26/20 10:47 Pepcid PO 20 mg DAILY PHILLY Administration Fentanyl 50 mcg 01/23/20 15:36 01/23/20 15:54 Sublimaze IV 50 mcg Q10MIN PRN Administration ANALGESIA Norepinephrine 4 mg in 250 mls @ 7.5 mls/hr 01/21/20 18:00 01/26/20 22:15 Levophed Drip 4 Mg/Ns 250 Ml IV 2 mcg/min TITR PHILLY 7.5 mls/hr Titration Protocol 2 MCG/MIN Propofol 1,000 mg in 100 mls @ 2.265 mls/hr 01/22/20 09:00 01/26/20 22:14 Diprivan 10 Mg/Ml IV 20 mcg/kg/min TITR PHILLY 9.06 mls/hr Administration Protocol 5 MCG/KG/MIN Fentanyl Citrate 2,000 mcg in 100 mls @ 3.775 mls/hr 01/23/20 16:00 01/24/20 01:32 Fentanyl Drip Premix IV 0 mcg/kg/hr TITR PHILLY 0 mls/hr Titration Protocol 1 MCG/KG/HR Lorazepam 100 mg/ Sodium 100 mls @ 1 mls/hr 01/23/20 16:00 Chloride/ Miscellaneous IV Information TITR PHILLY Protocol 1 MG/HR Sodium Chloride 100 mls @ 999 mls/hr 01/25/20 08:29 Nacl 0.9% IV SILVERIO PRN Hypotension Sodium Chloride 100 mls @ 999 mls/hr 01/26/20 07:54 Nacl 0.9% IV SILVERIO PRN Hypotension Lorazepam 2 mg 01/23/20 15:36 Ativan IV Q10MIN PRN Agitation Ondansetron HCl 4 mg 01/09/20 16:33 01/20/20 10:19 Zofran IV 4 mg Q8H PRN Administration Nausea And Vomiting Simple Syrup 15 ml 01/23/20 14:28 Simple Syrup FEEDTUBE PRN PRN Hypoglycemia Simple Syrup 30 ml 01/23/20 14:28 Simple Syrup FEEDTUBE PRN PRN Hypoglycemia Sodium Bicarbonate 325 mg 01/23/20 14:28 Sodium Bicarbonate FEEDTUBE PRN PRN For Clogged Feeding Tube Sodium Chloride 10 ml 01/09/20 22:00 01/26/20 11:00 Sodium Chloride Flush Syringe 10 Ml IV 10 ml BID PHILLY Administration Sodium Chloride 10 ml 01/09/20 16:33 Sodium Chloride Flush Syringe 10 Ml IV PRN PRN LINE FLUSH Tramadol HCl 50 mg 01/16/20 13:07 01/20/20 10:19 Ultram PO 50 mg Q12HR PRN Administration Pain, Moderate (4-6) Valsartan 80 mg 01/10/20 10:00 01/26/20 10:46 Diovan PO 80 mg DAILY PHILLY Administration
--- NOTE | 2020-01-27 09:04 | Progress Note ---
Assessment and Plan Assessment and plan: Suspected COVID- 19 Patient with very elevated inflammatory markers of ferritin, CRP, LDH and d- dimer. Bilateral pneumonia. Continue antibiotics per ID ARDS. Etiology secondary to above. Acute hypoxemic respiratory failure. Continue oxygen to maintain sats greater than 92% Appears stable on HFNC; wean FiO2 then flow Chest pain Stress test neg for ischemia GERD and costochondritis in differential diagnosis Volume overload s/p hemodialysis Nephrology consulted,following Acute on Chronic diastolic CHF exacerbation Secondary to volume overload End stage renal disease on dialysis Nephrology following T2DM (type 2 diabetes mellitus) Continue continue coverage Check hemoglobin A1c Hypertension Continue antihypertensives Hyponatremia Secondary to increased volume--dilutional DVT prophylaxis On heparin and GI prophylaxis 01/11 Covid 19 survey testing sent, nasal swab done 01/10 01/12 Patient has acute resp failure. may need Oxygen on dc. awaiting Covid result 01/13 Still has shortness of breath, awaiting Covid test. 01/14 Pt still dyspneic, await covid testing, Pulse ox 83% 01/16/2020. Patient remains dyspneic. Follow-up COVID testing. 01/17/2020. Patient still requiring large amounts of oxygen. Patient currently with 15 L satting at 95%. Patient with increased inflammatory markers. Follow- up chest x-ray today. 01/18/20--Patient still requiring large amounts of oxygen. Patient currently with 15 L %. Patient with increased inflammatory markers. 01/19/2020 very elevated inflammatory markers- ferritin> 2000, CRP >24, LDH> 600, d-dimer >1000 putting her at high risk for ARDS. Continue hydroxychloroquine 400 mg PO BID for 1 day then 200 mg PO BID for 4 days (total 5 days) with zinc 220 mg PO qday. Continue ceftriaxone. ContinueCOVID isolationprecautions pe r [facility]. Continue serial Ferritin, LDH, D-Dimer, CRP every 48h 01/20/2020. Inflammatory markers remain elevated with ferritin 1826, LDH 496, CRP 19.3, and d-dimer 2072. Patient requiring high flow nasal cannula 40L, FiO2 80%. Pulmonary following. Continue antibiotics and Plaquenil. Continue COVID isolationprecautions per [facility] protocol. Patient has a high risk mortality and remains guarded. 01/21/2020. Continue antibiotics and Plaquenil. Continue COVID isolationprecautions per [facility] protocol. Maintain sats of 88% and greater. Still on HFNC, O2 weaned to 95% overnight. Sats documented at 98%. Pulmonary following and reports If patient progresses could give bipap a one hour trial to see if there is improvement, repeat ABG, if not would suggest elective intubation. 01/22/2020 Patient still critically ill. Yesterday 01/20 had cardiopulmonary arrest so now intubated in ICU. Prognosis guarded. 01/23/2020 still critically ill. No more fever. Continue vent management. 01/24/20 Still critically ill, remain on vent. Continue current management. Will call . 01/25/20 Patient still critically ill. I called Davis Hernandez and gave update. He wants DNR status and says he will request withdrawal of care if patient does not get better after weekend. I discussed with Communications Clerk. 01/26/20 patient still intubated, on vent. She means a DNR order. Discussed with Nurse 01/26 patient still critically ill, vent dependent. The high probability of a clinically significant, sudden or life threatening deterioration of the [immunologic and respiratory] system(s) required my full and direct attention, intervention and personal management. The aggregate critical care time was [36] minutes. This time is in addition to time spent performing reported procedures but includes the following: [x] Data Review and interpretation [x] Patient assessment and monitoring of vital signs [x] Documentation [x] Medication orders and management History Interval history: Patient initially presented with chest tightness, SOB Now diagnosed with Covid-19 infection,acute resp failure, intubated requested DNR status PUI?: Yes COVID19: Positive Hospitalist Physical - Physical exam Narrative exam: GEN: Intubated, HEENT: Normocephalic, atraumatic, Neck: supple, No JVD Lungs: Bilateral crackles, heart;S1 and S2 reg, no murmurs, rubs or gallop Abd:soft, non tender, non distended, normal bowel sounds Ext: No edema, no clubbing, no cyanosis, Neuro: intubated, unresponsive - Constitutional Vitals: Temp Pulse Resp BP Pulse Ox 98.5 F 96 H 19 135/69 98 01/26/20 16:00 01/27/20 07:01 01/27/20 07:01 01/27/20 07:01 01/27/20 04:00 General appearance: Present: no acute distress BREEZY score - Breezy Score Age > 65: (1) Yes Aspirin use within the Past 7 Days: (1) Yes 3 or more CAD Risk Factors: (1) Yes 2 or more Angina events in past 24 hrs: (1) Yes Known CAD with more than 50% Stenosis: (0) No Elevated Cardiac Markers: (0) No ST Deviation Greater than 0.5mm: (0) No BREEZY Score: 4 Results - Labs CBC & Chem 7: 01/25/20 03:50 01/22/20 07:47 Labs: Laboratory Last Values WBC 13.0 K/mm3 (4.5-11.0) H 01/25/20 03:50 RBC 3.10 M/mm3 (3.65-5.03) L 01/25/20 03:50 Hgb 9.2 gm/dl (10.1-14.3) L 01/25/20 03:50 Hct 29.0 % (30.3-42.9) L 01/25/20 03:50 MCV 94 fl (79-97) 01/25/20 03:50 MCH 30 pg (28-32) 01/25/20 03:50 MCHC 32 % (30-34) 01/25/20 03:50 RDW 17.7 % (13.2-15.2) H 01/25/20 03:50 Plt Count 189 K/mm3 (140-440) 01/25/20 03:50 Lymph % (Auto) 3.8 % (13.4-35.0) L 01/18/20 06:25 [place] % (Auto) 6.5 % (0.0-7.3) 01/18/20 06:25 Eos % (Auto) 0.8 % (0.0-4.3) 01/18/20 06:25 Baso % (Auto) 0.1 % (0.0-1.8) 01/18/20 06:25 Lymph # 0.2 K/mm3 (1.2-5.4) L 01/18/20 06:25 [place] # 0.4 K/mm3 (0.0-0.8) 01/18/20 06:25 Eos # 0.0 K/mm3 (0.0-0.4) 01/18/20 06:25 Baso # 0.0 K/mm3 (0.0-0.1) 01/18/20 06:25 Add Manual Diff Complete 01/25/20 03:50 Total Counted 100 01/25/20 03:50 Seg Neutrophils % Customer Supply Chain Analyst 01/25/20 03:50 Seg Neuts % (Manual) 92.0 % (40.0-70.0) H 01/25/20 03:50 Band Neutrophils % 0 % 01/25/20 03:50 Lymphocytes % (Manual) 5.0 % (13.4-35.0) L 01/25/20 03:50 Reactive Lymphs % (Man) 0 % 01/25/20 03:50 Monocytes % (Manual) 2.0 % (0.0-7.3) 01/25/20 03:50 Eosinophils % (Manual) 1.0 % (0.0-4.3) 01/25/20 03:50 Basophils % (Manual) 0 % (0.0-1.8) 01/25/20 03:50 Metamyelocytes % 0 % 01/25/20 03:50 Myelocytes % 0 % 01/25/20 03:50 Promyelocytes % 0 % 01/25/20 03:50 Blast Cells % 0 % 01/25/20 03:50 Nucleated RBC % Not Reportable 01/25/20 03:50 Seg Neutrophils # 5.0 K/mm3 (1.8-7.7) 01/18/20 06:25 Seg Neutrophils # Man 12.0 K/mm3 (1.8-7.7) H 01/25/20 03:50 Band Neutrophils # 0.0 K/mm3 01/25/20 03:50 Lymphocytes # (Manual) 0.7 K/mm3 (1.2-5.4) L 01/25/20 03:50 Abs React Lymphs (Man) 0.0 K/mm3 01/25/20 03:50 Monocytes # (Manual) 0.3 K/mm3 (0.0-0.8) 01/25/20 03:50 Eosinophils # (Manual) 0.1 K/mm3 (0.0-0.4) 01/25/20 03:50 Basophils # (Manual) 0.0 K/mm3 (0.0-0.1) 01/25/20 03:50 Metamyelocytes # 0.0 K/mm3 01/25/20 03:50 Myelocytes # 0.0 K/mm3 01/25/20 03:50 Promyelocytes # 0.0 K/mm3 01/25/20 03:50 Blast Cells # 0.0 K/mm3 01/25/20 03:50 WBC Morphology Not Reportable 01/25/20 03:50 Hypersegmented Neuts Not Reportable 01/25/20 03:50 Hyposegmented Neuts Not Reportable 01/25/20 03:50 Hypogranular Neuts Not Reportable 01/25/20 03:50 Smudge Cells Not Reportable 01/25/20 03:50 Toxic Granulation Not Reportable 01/25/20 03:50 Toxic Vacuolation Not Reportable 01/25/20 03:50 Dohle Bodies Not Reportable 01/25/20 03:50 Pelger-Huet Anomaly Not Reportable 01/25/20 03:50 Armando Rods Not Reportable 01/25/20 03:50 Platelet Estimate Consistent w auto 01/25/20 03:50 Clumped Platelets Not Reportable 01/25/20 03:50 Plt Clumps, EDTA Not Reportable 01/25/20 03:50 Large Platelets Not Reportable 01/25/20 03:50 Giant Platelets Not Reportable 01/25/20 03:50 Platelet Satelliting Not Reportable 01/25/20 03:50 Plt Morphology Comment Not Reportable 01/25/20 03:50 RBC Morphology Not Reportable 01/25/20 03:50 Dimorphic RBCs Not Reportable 01/25/20 03:50 Polychromasia Not Reportable 01/25/20 03:50 Hypochromasia Not Reportable 01/25/20 03:50 Poikilocytosis Not Reportable 01/25/20 03:50 Anisocytosis 1+ 01/25/20 03:50 Microcytosis Not Reportable 01/25/20 03:50 Macrocytosis Not Reportable 01/25/20 03:50 Spherocytes Not Reportable 01/25/20 03:50 Pappenheimer Bodies Not Reportable 01/25/20 03:50 Sickle Cells Not Reportable 01/25/20 03:50 Target Cells Not Reportable 01/25/20 03:50 Tear Drop Cells Not Reportable 01/25/20 03:50 Ovalocytes Not Reportable 01/25/20 03:50 Helmet Cells Not Reportable 01/25/20 03:50 [place] Bodies Not Reportable 01/25/20 03:50 [place] Rings Not Reportable 01/25/20 03:50 Karen Cells Not Reportable 01/25/20 03:50 Bite Cells Not Reportable 01/25/20 03:50 Crenated Cell Not Reportable 01/25/20 03:50 Elliptocytes Not Reportable 01/25/20 03:50 Acanthocytes (Spur) Not Reportable 01/25/20 03:50 Rouleaux Not Reportable 01/25/20 03:50 Hemoglobin C Crystals Not Reportable 01/25/20 03:50 Schistocytes Not Reportable 01/25/20 03:50 Malaria parasites Not Reportable 01/25/20 03:50 Ney Bodies Not Reportable 01/25/20 03:50 Hem Pathologist Commnt No 01/25/20 03:50 PT 15.6 Sec. (12.2-14.9) H 01/09/20 12:55 INR 1.22 (0.87-1.13) H 01/09/20 12:55 APTT 31.5 Sec. (24.2-36.6) 01/09/20 12:55 D-Dimer 3828.76 ng/mlDDU (0-234) H 01/26/20 02:31 Heparin Anti-Xa Level < 0.10 U.I./ml (0.3-0.7) L 01/23/20 Unknown ABG pH 7.307 pH Units (7.350-7.450) L 01/27/20 03:45 ABG pCO2 62.4 mm Hg 01/27/20 03:45 ABG pO2 91.1 mm Hg (80.0-90.0) H 01/27/20 03:45 ABG HCO3 30.5 mmol/L (20.0-26.0) H 01/27/20 03:45 ABG O2 Saturation 96.8 % (95.0-99.0) 01/27/20 03:45 ABG O2 Content 11.7 (0.0-44) 01/27/20 03:45 ABG Base Excess 3.4 mmol/L (-2.0-3.0) H 01/27/20 03:45 ABG Hemoglobin 8.7 gm/dl (12.0-16.0) L 01/27/20 03:45 ABG Carboxyhemoglobin 2.0 % (0.0-5.0) 01/27/20 03:45 ABG Methemoglobin 0.6 % (0.0-1.5) 01/27/20 03:45 Oxyhemoglobin 94.3 % (95.0-99.0) L 01/27/20 03:45 FiO2 65 % 01/27/20 03:45 Sodium 139 mmol/L (137-145) 01/22/20 07:47 Potassium 4.8 mmol/L (3.6-5.0) 01/22/20 07:47 Chloride 94.3 mmol/L (98-107) L 01/22/20 07:47 Carbon Dioxide 24 mmol/L (22-30) 01/22/20 07:47 Anion Gap 26 mmol/L 01/22/20 07:47 BUN 53 mg/dL (7-17) H 01/22/20 07:47 Creatinine 6.5 mg/dL (0.7-1.2) H 01/22/20 07:47 Estimated GFR 8 ml/min 01/22/20 07:47 BUN/Creatinine Ratio 8 % 01/22/20 07:47 Glucose 72 mg/dL (65-100) 01/22/20 07:47 POC Glucose 147 (70-105) H 01/27/20 06:15 Hemoglobin A1c 5.0 % (4-6) 01/10/20 06:54 Calcium 9.0 mg/dL (8.4-10.2) 01/22/20 07:47 Phosphorus 3.30 mg/dL (2.5-4.5) 01/12/20 16:01 Magnesium 2.00 mg/dL (1.7-2.3) 01/13/20 06:11 Ferritin 3764.0 ng/mL (13.0-400.0) H 01/26/20 02:31 Total Bilirubin 0.30 mg/dL (0.1-1.2) 01/10/20 06:54 AST 30 units/L (5-40) 01/10/20 06:54 ALT 24 units/L (7-56) 01/10/20 06:54 Alkaline Phosphatase 148 units/L (35-129) H 01/10/20 06:54 Lactate Dehydrogenase 393 units/L (91-180) H 01/26/20 02:31 Troponin T 0.315 ng/mL (0.00-0.029) H* 01/10/20 06:54 C-Reactive Protein 28.60 mg/dL (0.00-1.30) H 01/26/20 02:31 NT-Pro-B Natriuret Pep 86641 pg/mL (0-900) H 01/09/20 12:55 Total Protein 5.4 g/dL (6.3-8.2) L 01/10/20 06:54 Albumin 2.7 g/dL (3.9-5) L 01/10/20 06:54 Albumin/Globulin Ratio 1.0 % 01/10/20 06:54 Triglycerides 81 mg/dL (2-149) 01/24/20 04:00 Cholesterol 123 mg/dL (50-199) 01/09/20 12:55 LDL Cholesterol Direct 66 mg/dL (50-130) 01/09/20 12:55 HDL Cholesterol 47 mg/dL (40-59) 01/09/20 12:55 Cholesterol/HDL Ratio 2.61 % 01/09/20 12:55 Hepatitis A IgM Ab Non-reactive (NonReactive) 01/21/20 23:40 Hep Bs Antigen Non-reactive (Negative) 01/21/20 23:40 Hep B Core IgM Ab Non-reactive (NonReactive) 01/21/20 23:40 Hepatitis C Antibody Non-reactive (NonReactive) 01/21/20 23:40 Miscellaneous Test See scanned result 01/11/20 Unknown Miscellaneous Test See scanned result 01/11/20 Unknown Microbiology: Microbiology 01/25/20 Unknown Peripheral/Venous Blood Culture - Preliminary NO GROWTH AFTER 24 HOURS 01/25/20 Unknown Peripheral/Venous Blood Culture - Preliminary NO GROWTH AFTER 24 HOURS Pleitez/IV: Voiding Method Toilet IV Catheter Type [Left Chest] Infusaport IV Catheter Type [Right Peripheral IV External Jugular] IV Catheter Type [Left INT / Saline Lock External Jugular] IV Catheter Type [Left Upper IVAD / Port arm] Active Medications - Current Medications Current Medications: Generic Name Dose Route Start Last Admin Trade Name Freq PRN Reason Stop Dose Admin Acetaminophen 650 mg 01/09/20 16:33 01/26/20 12:30 Tylenol PO 650 mg Q4H PRN Administration Pain MILD(1-3)/Fever >100.5/MEANS Lipase/Protease/Amylase 1 each 01/23/20 14:28 Pancreaze 10,500 Unit FEEDTUBE PRN PRN For Clogged Feeding Tube Atorvastatin Calcium 40 mg 01/09/20 22:00 01/26/20 22:13 Lipitor PO 40 mg QHS PHILLY Administration Cyclobenzaprine HCl 5 mg 01/09/20 16:27 01/10/20 23:17 Flexeril PO 5 mg QHS PRN Administration Muscle Spasm Dextrose 50 ml 01/23/20 07:26 01/24/20 18:29 D50w (25gm) Syringe IV 50 ml Q30MIN PRN Administration BLOOD GLUCOSE < 70 Dextrose 25 ml 01/24/20 08:58 01/24/20 13:41 D50w (25gm) Syringe IV 25 ml Q4H PRN Administration BG < 80 MG/DL Diphenhydramine HCl 25 mg 01/09/20 16:15 01/12/20 00:50 Benadryl PO 25 mg Q8HR PRN Administration Itching Docusate Sodium 100 mg 01/25/20 22:00 01/26/20 22:13 Colace PO 100 mg BID PHILLY Administration Duloxetine HCl 30 mg 01/09/20 17:00 01/26/20 10:43 Cymbalta PO 30 mg QDAY PHILLY Administration Enoxaparin Sodium 80 mg 01/23/20 12:00 01/26/20 10:43 Enoxaparin SUB-Q 80 mg Q24HR PHILLY Administration Famotidine 20 mg 01/09/20 22:00 01/26/20 10:47 Pepcid PO 20 mg DAILY PHILLY Administration Fentanyl 50 mcg 01/23/20 15:36 01/23/20 15:54 Sublimaze IV 50 mcg Q10MIN PRN Administration ANALGESIA Norepinephrine 4 mg in 250 mls @ 7.5 mls/hr 01/21/20 18:00 01/26/20 22:15 Levophed Drip 4 Mg/Ns 250 Ml IV 2 mcg/min TITR PHILLY 7.5 mls/hr Titration Protocol 2 MCG/MIN Propofol 1,000 mg in 100 mls @ 2.265 mls/hr 01/22/20 09:00 01/26/20 22:14 Diprivan 10 Mg/Ml IV 20 mcg/kg/min TITR PHILLY 9.06 mls/hr Administration Protocol 5 MCG/KG/MIN Fentanyl Citrate 2,000 mcg in 100 mls @ 3.775 mls/hr 01/23/20 16:00 01/24/20 01:32 Fentanyl Drip Premix IV 0 mcg/kg/hr TITR PHILLY 0 mls/hr Titration Protocol 1 MCG/KG/HR Lorazepam 100 mg/ Sodium 100 mls @ 1 mls/hr 01/23/20 16:00 Chloride/ Miscellaneous IV Information TITR PHILLY Protocol 1 MG/HR Sodium Chloride 100 mls @ 999 mls/hr 01/25/20 08:29 Nacl 0.9% IV SILVERIO PRN Hypotension Sodium Chloride 100 mls @ 999 mls/hr 01/26/20 07:54 Nacl 0.9% IV SILVERIO PRN Hypotension Lorazepam 2 mg 01/23/20 15:36 Ativan IV Q10MIN PRN Agitation Ondansetron HCl 4 mg 01/09/20 16:33 01/20/20 10:19 Zofran IV 4 mg Q8H PRN Administration Nausea And Vomiting Simple Syrup 15 ml 01/23/20 14:28 Simple Syrup FEEDTUBE PRN PRN Hypoglycemia Simple Syrup 30 ml 01/23/20 14:28 Simple Syrup FEEDTUBE PRN PRN Hypoglycemia Sodium Bicarbonate 325 mg 01/23/20 14:28 Sodium Bicarbonate FEEDTUBE PRN PRN For Clogged Feeding Tube Sodium Chloride 10 ml 01/09/20 22:00 01/26/20 11:00 Sodium Chloride Flush Syringe 10 Ml IV 10 ml BID PHILLY Administration Sodium Chloride 10 ml 01/09/20 16:33 Sodium Chloride Flush Syringe 10 Ml IV PRN PRN LINE FLUSH Tramadol HCl 50 mg 01/16/20 13:07 01/20/20 10:19 Ultram PO 50 mg Q12HR PRN Administration Pain, Moderate (4-6) Valsartan 80 mg 01/10/20 10:00 01/26/20 10:46 Diovan PO 80 mg DAILY PHILLY Administration Nutrition/Malnutrition Assess - Dietary Evaluation Nutrition/Malnutrition Findings: Nutrition Notes Start: 01/17/20 13: 49 Freq: Status: Active Protocol: Document 01/25/20 13:17 LM (Rec: 01/25/20 13:20 LM [email or web address]) Nutrition Notes Initial or Follow up Reassessment Current Diagnosis CKD (stage V CKD),Diabetes, Hypertension,Heart Failure, Respiratory Failure Other Pertinent Diagnosis Bilat pneu, COVID-19 (+), ARDS , volume overload, Chest pain Current Diet Nepro 1.8 at 35ml/hr Labs/Tests POC glu 136 Pertinent Medications Propofol at 2.265ml/hr (60 kcal) Levophed Height 5 ft 6 in Weight 75.5 kg [place] Body Weight (kg) 59.09 BMI 26.9 Subjective/Other Information Nepro running at goal rate and pt tolerating TF. Percent of energy/protein needs met: 95%/75% Burn Absent Trauma Absent Current % PO Negligible Minimum of two criteria Yes Interpretation of Weight Loss (non- 5% in 1 month severe) Fluid Accumulation Mild (non-severe) Reduced [employer] Manager Strength Measurably Reduced (severe) #1 Nutrition Diagnosis Malnutrition Diagnosis Progress(for reassessment Continues documentation) Is patient on ventilator? No Is Patient Ambulatory and/or Out of Bed No REE-([facility]-confined to bed) [phone] Calculation Used for Recommendations [facility] Additional Notes Protein: 91-151g (1.2-2g/kg) Fluid: per MD Nutrition Intervention Change Diet Order: Continue TF Nutrition Support: Nepro 1.8 at 35ml/hr (goal rate) Flush 150ml q4h Kcal 1,512 Protein (gm) 68 Fluid (mL) 611 Goal #1 TF tolerance Goal #2 Meet at least 75% of energy and protein needs via TF Anticipated Discharge Needs: unable to determine at this time Follow-Up By: 02/01/20 Additional Comments F/U for TF tolerance
[2020-01-27] MEDS: FAMOTIDINE 20 MG TAB PO SCH (09:42)
[2020-01-27] MEDS: ENOXAPARIN 80 MG/0.8 ML INJ SUB-Q SCH (09:42)
[2020-01-27] MEDS: DOCUSATE SODIUM 100 MG/10 ML ORAL LIQD PO SCH ×2 (09:42→21:55)
[2020-01-27] MEDS: DULoxetine 30 MG CAP PO SCH (09:42)
[2020-01-27] MEDS: VALSARTAN 40 MG TAB PO SCH (09:46)
--- NOTE | 2020-01-27 10:50 | Progress Note ---
Assessment and Plan 64 y/o female with COVID positive, viral pneumonia with some pulmonary vascular congestion superimposed. 1. Continue to wean FiO2 for sats >88%. HD again tomorrow per notes. 2. HD per renal. UF is definitely helping as changes can be seen in CXR. Per renal UF again today. Repeat CXR either tomorrow or Tuesday. 3. Changed back to prophylactic dosing for VTE as not confirmed the presence of VTE 4. Overall prognosis is guarded to poor, especially with prior history of ESRD on HD. Continue supportive care. IMS spoke with who has made patient a DNR. I have signed. Hopeful she can pull through but do agree with DNR status given evidence of increased mortality throughout the [place] from this novel [place]al virus. CCT 31 minutes. Subjective Date of service: 01/27/20 Principal diagnosis: Pneumonia Interval history: No acute events. PaO2 is better won 65%. Will wean down. Remains sedated. had HD yesterday. Per renal next session is scheduled for tomorrow. PUI?: Yes COVID19: Positive Objective Vital Signs - 12hr 01/26/20 01/26/20 01/26/20 23:01 23:15 23:30 Temperature Pulse Rate 98 H 99 H 99 H Pulse Rate [ From Monitor] Respiratory 19 22 21 Rate Blood Pressure 119/65 119/65 123/63 O2 Sat by Pulse Oximetry 01/26/20 01/26/20 01/27/20 23:44 23:45 00:00 Temperature Pulse Rate 99 H 99 H 99 H Pulse Rate [ 98 H From Monitor] Respiratory 22 22 Rate Blood Pressure 114/62 114/62 119/61 O2 Sat by Pulse 98 98 Oximetry 01/27/20 01/27/20 01/27/20 00:15 00:30 00:45 Temperature Pulse Rate 98 H 97 H 98 H Pulse Rate [ From Monitor] Respiratory 22 22 17 Rate Blood Pressure 119/61 121/60 121/60 O2 Sat by Pulse Oximetry 01/27/20 01/27/20 01/27/20 01:00 01:15 01:30 Temperature Pulse Rate 97 H 97 H 97 H Pulse Rate [ From Monitor] Respiratory 17 20 24 Rate Blood Pressure 123/63 123/63 120/59 O2 Sat by Pulse Oximetry 01/27/20 01/27/20 01/27/20 01:45 02:00 02:15 Temperature Pulse Rate 97 H 97 H 97 H Pulse Rate [ From Monitor] Respiratory 22 19 16 Rate Blood Pressure 114/58 115/62 120/59 O2 Sat by Pulse Oximetry 01/27/20 01/27/20 01/27/20 02:30 02:45 03:00 Temperature Pulse Rate 97 H 97 H 97 H Pulse Rate [ From Monitor] Respiratory 15 20 18 Rate Blood Pressure 118/60 127/64 126/63 O2 Sat by Pulse Oximetry 01/27/20 01/27/20 01/27/20 03:15 03:30 03:43 Temperature Pulse Rate 96 H 97 H 97 H Pulse Rate [ From Monitor] Respiratory 17 17 Rate Blood Pressure 126/63 124/61 124/61 O2 Sat by Pulse 98 Oximetry 01/27/20 01/27/20 01/27/20 03:45 04:00 04:15 Temperature Pulse Rate 97 H 97 H 97 H Pulse Rate [ 95 H From Monitor] Respiratory 16 19 17 Rate Blood Pressure 124/61 114/62 114/62 O2 Sat by Pulse 98 Oximetry 01/27/20 01/27/20 01/27/20 04:31 04:45 05:01 Temperature Pulse Rate 96 H 96 H 96 H Pulse Rate [ From Monitor] Respiratory 17 18 17 Rate Blood Pressure 122/58 122/58 125/58 O2 Sat by Pulse Oximetry 01/27/20 01/27/20 01/27/20 05:15 05:31 05:45 Temperature Pulse Rate 96 H 96 H 96 H Pulse Rate [ From Monitor] Respiratory 18 17 17 Rate Blood Pressure 125/58 124/60 124/60 O2 Sat by Pulse Oximetry 01/27/20 01/27/20 01/27/20 06:01 06:15 06:31 Temperature Pulse Rate 96 H 95 H 96 H Pulse Rate [ From Monitor] Respiratory 16 17 18 Rate Blood Pressure 122/64 122/64 117/60 O2 Sat by Pulse Oximetry 01/27/20 01/27/20 01/27/20 06:45 07:01 07:15 Temperature Pulse Rate 96 H 96 H 96 H Pulse Rate [ From Monitor] Respiratory 18 19 18 Rate Blood Pressure 117/60 135/69 135/69 O2 Sat by Pulse Oximetry 01/27/20 01/27/20 01/27/20 07:31 07:45 08:00 Temperature 98.2 F Pulse Rate 95 H 96 H Pulse Rate [ From Monitor] Respiratory 19 18 Rate Blood Pressure 122/60 122/60 O2 Sat by Pulse Oximetry 01/27/20 01/27/20 01/27/20 08:01 08:15 08:31 Temperature Pulse Rate 96 H 96 H 98 H Pulse Rate [ From Monitor] Respiratory 18 19 17 Rate Blood Pressure 126/61 126/61 144/72 O2 Sat by Pulse Oximetry 01/27/20 01/27/20 01/27/20 08:45 09:01 09:15 Temperature Pulse Rate 99 H 100 H 99 H Pulse Rate [ From Monitor] Respiratory 16 15 16 Rate Blood Pressure 144/72 142/68 142/68 O2 Sat by Pulse Oximetry 01/27/20 01/27/20 01/27/20 09:31 09:45 09:46 Temperature Pulse Rate 101 H 100 H 100 H Pulse Rate [ From Monitor] Respiratory 16 18 Rate Blood Pressure 146/74 146/74 130/68 O2 Sat by Pulse 99 Oximetry Constitutional: other (orally intubated, not sedated currently on vent) Eyes: non-icteric ENT: oropharynx moist Neck: supple Effort: normal Ascultation: Bilateral: rales Cardiovascular: regular rate and rhythm (no mrg) Gastrointestinal: normoactive bowel sounds, soft, non-tender, non-distended Integumentary: normal Extremities: no cyanosis, no edema, pink and warm Neurologic: normal mental status, non-focal exam, pupils equal and round, CN II- XII normal Psychiatric: mood appropriate, affect normal CBC and BMP: 01/25/20 03:50 01/22/20 07:47 ABG, PT/INR, D-dimer: ABG ABG pH 7.307 pH Units (7.350-7.450) L 01/27/20 03:45 ABG pCO2 62.4 mm Hg 01/27/20 03:45 ABG pO2 91.1 mm Hg (80.0-90.0) H 01/27/20 03:45 ABG O2 Saturation 96.8 % (95.0-99.0) 01/27/20 03:45 PT/INR, D-dimer PT 15.6 Sec. (12.2-14.9) H 01/09/20 12:55 INR 1.22 (0.87-1.13) H 01/09/20 12:55 D-Dimer 3828.76 ng/mlDDU (0-234) H 01/26/20 02:31 Abnormal lab findings: Abnormal Labs 01/09/20 01/09/20 01/09/20 12:55 12:55 12:55 WBC 4.4 L RBC 3.44 L Hgb Hct RDW 17.0 H Plt Count Lymph % (Auto) 6.8 L Arthur % (Auto) 13.6 H Lymph # 0.3 L Seg Neutrophils % 79.0 H Seg Neuts % (Manual) Lymphocytes % (Manual) Seg Neutrophils # Man Lymphocytes # (Manual) PT 15.6 H INR 1.22 H D-Dimer Heparin Anti-Xa Level ABG pH ABG pO2 ABG HCO3 ABG O2 Saturation ABG Base Excess ABG Hemoglobin Oxyhemoglobin Sodium 130 L Chloride 88.9 L Carbon Dioxide 20 L BUN 41 H Creatinine 7.6 H Glucose 115 H POC Glucose Calcium Magnesium Ferritin Alkaline Phosphatase 153 H Lactate Dehydrogenase Troponin T 0.382 H* C-Reactive Protein NT-Pro-B Natriuret Pep 10084 H Total Protein Albumin 3.2 L 01/09/20 01/10/20 01/10/20 20:14 00:16 06:54 WBC 3.3 L RBC 3.00 L Hgb 9.2 L Hct 27.8 L RDW 17.2 H Plt Count Lymph % (Auto) 8.9 L Arthur % (Auto) 11.5 H Lymph # 0.3 L Seg Neutrophils % 79.1 H Seg Neuts % (Manual) Lymphocytes % (Manual) Seg Neutrophils # Man Lymphocytes # (Manual) PT INR D-Dimer Heparin Anti-Xa Level ABG pH ABG pO2 ABG HCO3 ABG O2 Saturation ABG Base Excess ABG Hemoglobin Oxyhemoglobin Sodium Chloride Carbon Dioxide BUN Creatinine Glucose POC Glucose Calcium Magnesium Ferritin Alkaline Phosphatase Lactate Dehydrogenase Troponin T 0.349 H* 0.328 H* C-Reactive Protein NT-Pro-B Natriuret Pep Total Protein Albumin 01/10/20 01/10/20 01/11/20 06:54 06:54 16:45 WBC RBC Hgb Hct RDW Plt Count Lymph % (Auto) Arthur % (Auto) Lymph # Seg Neutrophils % Seg Neuts % (Manual) Lymphocytes % (Manual) Seg Neutrophils # Man Lymphocytes # (Manual) PT INR D-Dimer Heparin Anti-Xa Level ABG pH ABG pO2 ABG HCO3 ABG O2 Saturation ABG Base Excess ABG Hemoglobin Oxyhemoglobin Sodium 133 L Chloride 90.6 L Carbon Dioxide BUN 50 H Creatinine 8.4 H Glucose 101 H POC Glucose 106 H Calcium 8.1 L Magnesium Ferritin Alkaline Phosphatase 148 H Lactate Dehydrogenase Troponin T 0.315 H* C-Reactive Protein NT-Pro-B Natriuret Pep Total Protein 5.4 L Albumin 2.7 L 01/12/20 01/13/20 01/13/20 16:01 06:11 06:11 WBC 3.1 L RBC 3.25 L Hgb 9.8 L Hct RDW 17.2 H Plt Count 136 L Lymph % (Auto) Arthur % (Auto) Lymph # Seg Neutrophils % Seg Neuts % (Manual) Lymphocytes % (Manual) Seg Neutrophils # Man Lymphocytes # (Manual) PT INR D-Dimer Heparin Anti-Xa Level ABG pH ABG pO2 ABG HCO3 ABG O2 Saturation ABG Base Excess ABG Hemoglobin Oxyhemoglobin Sodium 135 L Chloride 93.4 L Carbon Dioxide BUN 19 H Creatinine 4.5 H Glucose 120 H POC Glucose Calcium 7.8 L Magnesium 1.40 L Ferritin Alkaline Phosphatase Lactate Dehydrogenase Troponin T C-Reactive Protein NT-Pro-B Natriuret Pep Total Protein Albumin 01/16/20 01/16/20 01/16/20 08:35 11:49 14:11 WBC RBC Hgb Hct RDW Plt Count Lymph % (Auto) Arthur % (Auto) Lymph # Seg Neutrophils % Seg Neuts % (Manual) Lymphocytes % (Manual) Seg Neutrophils # Man Lymphocytes # (Manual) PT INR D-Dimer Heparin Anti-Xa Level ABG pH ABG pO2 48.4 L ABG HCO3 30.5 H ABG O2 Saturation 81.9 L ABG Base Excess 4.6 H ABG Hemoglobin 10.5 L Oxyhemoglobin 80.1 L Sodium Chloride Carbon Dioxide BUN Creatinine Glucose POC Glucose 126 H 119 H Calcium Magnesium Ferritin Alkaline Phosphatase Lactate Dehydrogenase Troponin T C-Reactive Protein NT-Pro-B Natriuret Pep Total Protein Albumin 01/16/20 01/16/20 01/16/20 15:38 15:38 15:38 WBC RBC Hgb Hct RDW Plt Count Lymph % (Auto) Arthur % (Auto) Lymph # Seg Neutrophils % Seg Neuts % (Manual) Lymphocytes % (Manual) Seg Neutrophils # Man Lymphocytes # (Manual) PT INR D-Dimer 1104.64 H Heparin Anti-Xa Level ABG pH ABG pO2 ABG HCO3 ABG O2 Saturation ABG Base Excess ABG Hemoglobin Oxyhemoglobin Sodium Chloride Carbon Dioxide BUN Creatinine Glucose POC Glucose Calcium Magnesium Ferritin > 2000.0 H Alkaline Phosphatase Lactate Dehydrogenase 690 H Troponin T C-Reactive Protein 24.10 H NT-Pro-B Natriuret Pep Total Protein Albumin 01/16/20 01/18/20 01/18/20 18:11 06:25 06:25 WBC RBC 3.15 L Hgb 9.4 L Hct 29.4 L RDW 17.5 H Plt Count 135 L Lymph % (Auto) 3.8 L Arthur % (Auto) Lymph # 0.2 L Seg Neutrophils % 88.8 H Seg Neuts % (Manual) Lymphocytes % (Manual) Seg Neutrophils # Man Lymphocytes # (Manual) PT INR D-Dimer Heparin Anti-Xa Level ABG pH ABG pO2 ABG HCO3 ABG O2 Saturation ABG Base Excess ABG Hemoglobin Oxyhemoglobin Sodium Chloride 96.8 L Carbon Dioxide BUN 26 H Creatinine 4.2 H Glucose 115 H POC Glucose 130 H Calcium 8.2 L Magnesium Ferritin Alkaline Phosphatase Lactate Dehydrogenase 537 H Troponin T C-Reactive Protein 17.10 H NT-Pro-B Natriuret Pep Total Protein Albumin 01/18/20 01/18/20 01/18/20 06:25 06:25 12:15 WBC RBC Hgb Hct RDW Plt Count Lymph % (Auto) Arthur % (Auto) Lymph # Seg Neutrophils % Seg Neuts % (Manual) Lymphocytes % (Manual) Seg Neutrophils # Man Lymphocytes # (Manual) PT INR D-Dimer 938.03 H Heparin Anti-Xa Level ABG pH ABG pO2 66.5 L ABG HCO3 30.1 H ABG O2 Saturation 93.2 L ABG Base Excess 4.6 H ABG Hemoglobin 10.0 L Oxyhemoglobin 91.3 L Sodium Chloride Carbon Dioxide BUN Creatinine Glucose POC Glucose Calcium Magnesium Ferritin 3105.0 H Alkaline Phosphatase Lactate Dehydrogenase Troponin T C-Reactive Protein NT-Pro-B Natriuret Pep Total Protein Albumin 01/20/20 01/20/20 01/20/20 07:37 07:37 07:37 WBC RBC Hgb Hct RDW Plt Count Lymph % (Auto) Arthur % (Auto) Lymph # Seg Neutrophils % Seg Neuts % (Manual) Lymphocytes % (Manual) Seg Neutrophils # Man Lymphocytes # (Manual) PT INR D-Dimer 2072.25 H Heparin Anti-Xa Level ABG pH ABG pO2 ABG HCO3 ABG O2 Saturation ABG Base Excess ABG Hemoglobin Oxyhemoglobin Sodium Chloride Carbon Dioxide BUN Creatinine Glucose POC Glucose Calcium Magnesium Ferritin 1826.0 H Alkaline Phosphatase Lactate Dehydrogenase 496 H Troponin T C-Reactive Protein 19.30 H NT-Pro-B Natriuret Pep Total Protein Albumin 01/20/20 01/21/20 01/21/20 17:30 03:59 17:35 WBC RBC Hgb Hct RDW Plt Count Lymph % (Auto) Arthur % (Auto) Lymph # Seg Neutrophils % Seg Neuts % (Manual) Lymphocytes % (Manual) Seg Neutrophils # Man Lymphocytes # (Manual) PT INR D-Dimer Heparin Anti-Xa Level ABG pH ABG pO2 61.1 L 67.4 L ABG HCO3 29.9 H 26.2 H ABG O2 Saturation 91.7 L 93.4 L ABG Base Excess 4.9 H ABG Hemoglobin 9.0 L 9.1 L Oxyhemoglobin 89.5 L 91.1 L Sodium 136 L Chloride Carbon Dioxide BUN 36 H Creatinine 4.9 H Glucose POC Glucose Calcium Magnesium Ferritin Alkaline Phosphatase Lactate Dehydrogenase Troponin T C-Reactive Protein NT-Pro-B Natriuret Pep Total Protein Albumin 01/21/20 01/22/20 01/22/20 Unknown 03:41 03:41 WBC RBC Hgb Hct RDW Plt Count Lymph % (Auto) Arthur % (Auto) Lymph # Seg Neutrophils % Seg Neuts % (Manual) Lymphocytes % (Manual) Seg Neutrophils # Man Lymphocytes # (Manual) PT INR D-Dimer Heparin Anti-Xa Level ABG pH 7.465 H ABG pO2 48.9 L ABG HCO3 26.6 H ABG O2 Saturation 85.7 L ABG Base Excess ABG Hemoglobin 10.4 L Oxyhemoglobin 83.5 L Sodium Chloride Carbon Dioxide BUN Creatinine Glucose POC Glucose Calcium Magnesium Ferritin 6071.0 H Alkaline Phosphatase Lactate Dehydrogenase 963 H Troponin T C-Reactive Protein 30.00 H NT-Pro-B Natriuret Pep Total Protein Albumin 01/22/20 01/22/20 01/22/20 03:41 07:47 11:20 WBC RBC Hgb Hct RDW Plt Count Lymph % (Auto) Arthur % (Auto) Lymph # Seg Neutrophils % Seg Neuts % (Manual) Lymphocytes % (Manual) Seg Neutrophils # Man Lymphocytes # (Manual) PT INR D-Dimer > 52444 H Heparin Anti-Xa Level ABG pH ABG pO2 66.7 L ABG HCO3 28.7 H ABG O2 Saturation 91.9 L ABG Base Excess ABG Hemoglobin 9.1 L Oxyhemoglobin 89.5 L Sodium Chloride 94.3 L Carbon Dioxide BUN 53 H Creatinine 6.5 H Glucose POC Glucose Calcium Magnesium Ferritin Alkaline Phosphatase Lactate Dehydrogenase Troponin T C-Reactive Protein NT-Pro-B Natriuret Pep Total Protein Albumin 01/22/20 01/22/20 01/23/20 11:49 Unknown 04:55 WBC 15.1 H RBC 3.05 L Hgb 8.8 L Hct 28.3 L RDW 17.8 H Plt Count 125 L Lymph % (Auto) Arthur % (Auto) Lymph # Seg Neutrophils % Seg Neuts % (Manual) Lymphocytes % (Manual) Seg Neutrophils # Man Lymphocytes # (Manual) PT INR D-Dimer Heparin Anti-Xa Level ABG pH 7.340 L ABG pO2 77.7 L 136.3 H ABG HCO3 27.6 H 28.8 H ABG O2 Saturation ABG Base Excess ABG Hemoglobin 9.3 L 10.9 L Oxyhemoglobin 94.2 L Sodium Chloride Carbon Dioxide BUN Creatinine Glucose POC Glucose Calcium Magnesium Ferritin Alkaline Phosphatase Lactate Dehydrogenase Troponin T C-Reactive Protein NT-Pro-B Natriuret Pep Total Protein Albumin 01/23/20 01/23/20 01/23/20 06:23 07:07 12:23 WBC RBC Hgb Hct RDW Plt Count Lymph % (Auto) Arthur % (Auto) Lymph # Seg Neutrophils % Seg Neuts % (Manual) Lymphocytes % (Manual) Seg Neutrophils # Man Lymphocytes # (Manual) PT INR D-Dimer Heparin Anti-Xa Level ABG pH ABG pO2 ABG HCO3 ABG O2 Saturation ABG Base Excess ABG Hemoglobin Oxyhemoglobin Sodium Chloride Carbon Dioxide BUN Creatinine Glucose POC Glucose 57 L 127 H 131 H Calcium Magnesium Ferritin Alkaline Phosphatase Lactate Dehydrogenase Troponin T C-Reactive Protein NT-Pro-B Natriuret Pep Total Protein Albumin 01/23/20 01/23/20 01/24/20 Unknown Unknown 04:00 WBC 16.2 H RBC 3.08 L Hgb 8.9 L Hct 28.6 L RDW 17.8 H Plt Count 139 L Lymph % (Auto) Arthur % (Auto) Lymph # Seg Neutrophils % Seg Neuts % (Manual) Lymphocytes % (Manual) Seg Neutrophils # Man Lymphocytes # (Manual) PT INR D-Dimer Heparin Anti-Xa Level < 0.10 L ABG pH ABG pO2 ABG HCO3 ABG O2 Saturation ABG Base Excess ABG Hemoglobin Oxyhemoglobin Sodium Chloride Carbon Dioxide BUN Creatinine Glucose POC Glucose Calcium Magnesium Ferritin 4195.0 H Alkaline Phosphatase Lactate Dehydrogenase Troponin T C-Reactive Protein NT-Pro-B Natriuret Pep Total Protein Albumin 01/24/20 01/24/20 01/24/20 04:00 04:00 04:00 WBC RBC Hgb Hct RDW Plt Count Lymph % (Auto) Arthur % (Auto) Lymph # Seg Neutrophils % Seg Neuts % (Manual) Lymphocytes % (Manual) Seg Neutrophils # Man Lymphocytes # (Manual) PT INR D-Dimer 5783.11 H Heparin Anti-Xa Level ABG pH 7.188 L* ABG pO2 70.8 L ABG HCO3 32.2 H ABG O2 Saturation 90.4 L ABG Base Excess ABG Hemoglobin 8.5 L Oxyhemoglobin 88.1 L Sodium Chloride Carbon Dioxide BUN Creatinine Glucose POC Glucose Calcium Magnesium Ferritin Alkaline Phosphatase Lactate Dehydrogenase 474 H Troponin T C-Reactive Protein 29.80 H NT-Pro-B Natriuret Pep Total Protein Albumin 01/24/20 01/24/20 01/24/20 05:20 05:51 09:14 WBC RBC Hgb Hct RDW Plt Count Lymph % (Auto) Arthur % (Auto) Lymph # Seg Neutrophils % Seg Neuts % (Manual) Lymphocytes % (Manual) Seg Neutrophils # Man Lymphocytes # (Manual) PT INR D-Dimer Heparin Anti-Xa Level ABG pH 7.214 L ABG pO2 71.7 L ABG HCO3 31.5 H ABG O2 Saturation 91.8 L ABG Base Excess ABG Hemoglobin 9.1 L Oxyhemoglobin 89.3 L Sodium Chloride Carbon Dioxide BUN Creatinine Glucose POC Glucose 50 L 53 L Calcium Magnesium Ferritin Alkaline Phosphatase Lactate Dehydrogenase Troponin T C-Reactive Protein NT-Pro-B Natriuret Pep Total Protein Albumin 01/24/20 01/24/20 01/24/20 15:10 18:04 21:10 WBC RBC Hgb Hct RDW Plt Count Lymph % (Auto) Arthur % (Auto) Lymph # Seg Neutrophils % Seg Neuts % (Manual) Lymphocytes % (Manual) Seg Neutrophils # Man Lymphocytes # (Manual) PT INR D-Dimer Heparin Anti-Xa Level ABG pH ABG pO2 ABG HCO3 ABG O2 Saturation ABG Base Excess ABG Hemoglobin Oxyhemoglobin Sodium Chloride Carbon Dioxide BUN Creatinine Glucose POC Glucose 114 H 51 L 144 H Calcium Magnesium Ferritin Alkaline Phosphatase Lactate Dehydrogenase Troponin T C-Reactive Protein NT-Pro-B Natriuret Pep Total Protein Albumin 01/24/20 01/25/20 01/25/20 Unknown 00:32 03:50 WBC 13.0 H RBC 3.10 L Hgb 9.2 L Hct 29.0 L RDW 17.7 H Plt Count Lymph % (Auto) Arthur % (Auto) Lymph # Seg Neutrophils % Seg Neuts % (Manual) 92.0 H Lymphocytes % (Manual) 5.0 L Seg Neutrophils # Man 12.0 H Lymphocytes # (Manual) 0.7 L PT INR D-Dimer Heparin Anti-Xa Level ABG pH 7.291 L ABG pO2 71.3 L ABG HCO3 30.6 H ABG O2 Saturation 93.6 L ABG Base Excess 3.3 H ABG Hemoglobin 8.1 L Oxyhemoglobin 91.2 L Sodium Chloride Carbon Dioxide BUN Creatinine Glucose POC Glucose 114 H Calcium Magnesium Ferritin Alkaline Phosphatase Lactate Dehydrogenase Troponin T C-Reactive Protein NT-Pro-B Natriuret Pep Total Protein Albumin 01/25/20 01/25/20 01/25/20 04:22 06:05 17:28 WBC RBC Hgb Hct RDW Plt Count Lymph % (Auto) Arthur % (Auto) Lymph # Seg Neutrophils % Seg Neuts % (Manual) Lymphocytes % (Manual) Seg Neutrophils # Man Lymphocytes # (Manual) PT INR D-Dimer Heparin Anti-Xa Level ABG pH 7.304 L ABG pO2 69.5 L ABG HCO3 29.7 H ABG O2 Saturation 93.2 L ABG Base Excess ABG Hemoglobin 8.7 L Oxyhemoglobin 90.7 L Sodium Chloride Carbon Dioxide BUN Creatinine Glucose POC Glucose 136 H 127 H Calcium Magnesium Ferritin Alkaline Phosphatase Lactate Dehydrogenase Troponin T C-Reactive Protein NT-Pro-B Natriuret Pep Total Protein Albumin 01/26/20 01/26/20 01/26/20 00:20 02:31 02:31 WBC RBC Hgb Hct RDW Plt Count Lymph % (Auto) Arthur % (Auto) Lymph # Seg Neutrophils % Seg Neuts % (Manual) Lymphocytes % (Manual) Seg Neutrophils # Man Lymphocytes # (Manual) PT INR D-Dimer Heparin Anti-Xa Level ABG pH ABG pO2 ABG HCO3 ABG O2 Saturation ABG Base Excess ABG Hemoglobin Oxyhemoglobin Sodium Chloride Carbon Dioxide BUN Creatinine Glucose POC Glucose 127 H Calcium Magnesium Ferritin 3764.0 H Alkaline Phosphatase Lactate Dehydrogenase 393 H Troponin T C-Reactive Protein 28.60 H NT-Pro-B Natriuret Pep Total Protein Albumin 01/26/20 01/26/20 01/26/20 02:31 04:45 05:24 WBC RBC Hgb Hct RDW Plt Count Lymph % (Auto) Arthur % (Auto) Lymph # Seg Neutrophils % Seg Neuts % (Manual) Lymphocytes % (Manual) Seg Neutrophils # Man Lymphocytes # (Manual) PT INR D-Dimer 3828.76 H Heparin Anti-Xa Level ABG pH ABG pO2 ABG HCO3 30.8 H ABG O2 Saturation ABG Base Excess 4.9 H ABG Hemoglobin 7.4 L Oxyhemoglobin 94.6 L Sodium Chloride Carbon Dioxide BUN Creatinine Glucose POC Glucose 121 H Calcium Magnesium Ferritin Alkaline Phosphatase Lactate Dehydrogenase Troponin T C-Reactive Protein NT-Pro-B Natriuret Pep Total Protein Albumin 01/26/20 01/26/20 01/26/20 10:40 12:36 18:10 WBC RBC Hgb Hct RDW Plt Count Lymph % (Auto) Arthur % (Auto) Lymph # Seg Neutrophils % Seg Neuts % (Manual) Lymphocytes % (Manual) Seg Neutrophils # Man Lymphocytes # (Manual) PT INR D-Dimer Heparin Anti-Xa Level ABG pH ABG pO2 ABG HCO3 ABG O2 Saturation ABG Base Excess ABG Hemoglobin Oxyhemoglobin Sodium Chloride Carbon Dioxide BUN Creatinine Glucose POC Glucose 119 H 126 H 159 H Calcium Magnesium Ferritin Alkaline Phosphatase Lactate Dehydrogenase Troponin T C-Reactive Protein NT-Pro-B Natriuret Pep Total Protein Albumin 01/27/20 01/27/20 03:45 06:15 WBC RBC Hgb Hct RDW Plt Count Lymph % (Auto) Arthur % (Auto) Lymph # Seg Neutrophils % Seg Neuts % (Manual) Lymphocytes % (Manual) Seg Neutrophils # Man Lymphocytes # (Manual) PT INR D-Dimer Heparin Anti-Xa Level ABG pH 7.307 L ABG pO2 91.1 H ABG HCO3 30.5 H ABG O2 Saturation ABG Base Excess 3.4 H ABG Hemoglobin 8.7 L Oxyhemoglobin 94.3 L Sodium Chloride Carbon Dioxide BUN Creatinine Glucose POC Glucose 147 H Calcium Magnesium Ferritin Alkaline Phosphatase Lactate Dehydrogenase Troponin T C-Reactive Protein NT-Pro-B Natriuret Pep Total Protein Albumin Allied health notes reviewed: nursing
[2020-01-27] MEDS: ACETAMINOPHEN 325 MG TAB PO PRN (12:26)
[2020-01-27] MEDS: NORepinephrine/NS 4 MG-250 ML 4 MG/250 ML BAG IV SCH (20:43)
--- NOTE | 2020-01-28 05:21 | XRay Report ---
CHEST 1 VIEW 2:06 AM INDICATION / CLINICAL INFORMATION: Hypoxemia. COMPARISON: 01/25/20 FINDINGS: SUPPORT DEVICES: Unchanged. HEART / MEDIASTINUM: Stable. LUNGS / PLEURA: Slight interval improvement in bilateral pulmonary opacities. No pneumothorax. ADDITIONAL FINDINGS: No significant additional findings. IMPRESSION: 1. Slight improvement. Signer Name: Arik Damon MD Signed: 01/28/2020 5:17 AM Workstation Name: [id number]
[2020-01-28 06:38] LABS: C-Reactive Protein 9.7 mg/dL (0.00-1.30)
--- NOTE | 2020-01-28 08:35 | Progress Note ---
Assessment and Plan Assessment and plan: Suspected COVID- 19 Patient with very elevated inflammatory markers of ferritin, CRP, LDH and d- dimer. Bilateral pneumonia. Continue antibiotics per ID ARDS. Etiology secondary to above. Acute hypoxemic respiratory failure. Continue oxygen to maintain sats greater than 92% Appears stable on HFNC; wean FiO2 then flow Chest pain Stress test neg for ischemia GERD and costochondritis in differential diagnosis Volume overload s/p hemodialysis Nephrology consulted,following Acute on Chronic diastolic CHF exacerbation Secondary to volume overload End stage renal disease on dialysis Nephrology following T2DM (type 2 diabetes mellitus) Continue continue coverage Check hemoglobin A1c Hypertension Continue antihypertensives Hyponatremia Secondary to increased volume--dilutional DVT prophylaxis On heparin and GI prophylaxis DNR requested DNR. 01/11 Covid 19 survey testing sent, nasal swab done 01/10 01/12 Patient has acute resp failure. may need Oxygen on dc. awaiting Covid res ult 01/13 Still has shortness of breath, awaiting Covid test. 01/14 Pt still dyspneic, await covid testing, Pulse ox 83% 01/16/2020. Patient remains dyspneic. Follow-up COVID testing. 01/17/2020. Patient still requiring large amounts of oxygen. Patient currently with 15 L satting at 95%. Patient with increased inflammatory markers. Follow- up chest x-ray today. 01/18/20--Patient still requiring large amounts of oxygen. Patient currently with 15 L %. Patient with increased inflammatory markers. 01/19/2020 very elevated inflammatory markers- ferritin> 2000, CRP >24, LDH> 600, d-dimer >1000 putting her at high risk for ARDS. Continue hydroxychloroquine 400 mg PO BID for 1 day then 200 mg PO BID for 4 days (total 5 days) with zinc 220 mg PO qday. Continue ceftriaxone. ContinueCOVID isolationprecautions per [facility] protocol. Continue serial Ferritin, LDH, D-Dimer, CRP every 48h 01/20/2020. Inflammatory markers remain elevated with ferritin 1826, LDH 496, CRP 19.3, and d-dimer 2072. Patient requiring high flow nasal cannula 40L, FiO2 80%. Pulmonary following. Continue antibiotics and Plaquenil. Continue COVID isolationprecautions per [facility] protocol. Patient has a high risk mortality and remains guarded. 01/21/2020. Continue antibiotics and Plaquenil. Continue COVID isolationprecautions per [facility] protocol. Maintain sats of 88% and greater. Still on HFNC, O2 weaned to 95% overnight. Sats documented at 98%. Pulmonary following and reports If patient progresses could give bipap a one hour trial to see if there is improvement, repeat ABG, if not would suggest elective intubation. 01/22/2020 Patient still critically ill. Yesterday 01/20 had cardiopulmonary arrest so now intubated in ICU. Prognosis guarded. 01/23/2020 still critically ill. No more fever. Continue vent management. 01/24/20 Still critically ill, remain on vent. Continue current management. Will call . 01/25/20 Patient still critically ill. I called Davis Hernandez and gave update. He wants DNR status and says he will request withdrawal of care if patient does not get better after weekend. I discussed with Document Examiner. 01/26/20 patient still intubated, on vent. She means a DNR order. Discussed with Nurse 01/26 patient still critically ill, vent dependent. 01/27 patient still intubated, on vent. On levophed to keep MAP>65mmhg The high probability of a clinically significant, sudden or life threatening deterioration of the [immunologic and respiratory] system(s) required my full and direct attention, intervention and personal management. The aggregate critical care time was [36] minutes. This time is in addition to time spent performing reported procedures but includes the following: [x] Data Review and interpretation [x] Patient assessment and monitoring of vital signs [x] Documentation [x] Medication orders and management History Interval history: Patient initially presented with chest tightness, SOB Now diagnosed with Covid-19 infection,acute resp failure, intubated requested DNR status PUI?: Yes COVID19: Positive Hospitalist Physical - Physical exam Narrative exam: GEN: Intubated, HEENT: Normocephalic, atraumatic, Neck: supple, No JVD Lungs: Bilateral crackles, heart;S1 and S2 reg, no murmurs, rubs or gallop Abd:soft, non tender, non distended, normal bowel sounds Ext: No edema, no clubbing, no cyanosis, Neuro: intubated, unresponsive - Constitutional Vitals: Temp Pulse Resp BP Pulse Ox 100.1 F H 73 20 101/42 100 04/12/20 19:03 01/28/20 06:15 01/28/20 06:15 01/28/20 06:15 01/28/20 06:15 General appearance: Present: no acute distress BREEZY score - Breezy Score Age > 65: (1) Yes Aspirin use within the Past 7 Days: (1) Yes 3 or more CAD Risk Factors: (1) Yes 2 or more Angina events in past 24 hrs: (1) Yes Known CAD with more than 50% Stenosis: (0) No Elevated Cardiac Markers: (0) No ST Deviation Greater than 0.5mm: (0) No BREEZY Score: 4 Results - Labs CBC & Chem 7: 01/25/20 03:50 01/22/20 07:47 Labs: Laboratory Last Values WBC 13.0 K/mm3 (4.5-11.0) H 01/25/20 03:50 RBC 3.10 M/mm3 (3.65-5.03) L 01/25/20 03:50 Hgb 9.2 gm/dl (10.1-14.3) L 01/25/20 03:50 Hct 29.0 % (30.3-42.9) L 01/25/20 03:50 MCV 94 fl (79-97) 01/25/20 03:50 MCH 30 pg (28-32) 01/25/20 03:50 MCHC 32 % (30-34) 01/25/20 03:50 RDW 17.7 % (13.2-15.2) H 01/25/20 03:50 Plt Count 189 K/mm3 (140-440) 01/25/20 03:50 Lymph % (Auto) 3.8 % (13.4-35.0) L 01/18/20 06:25 [place] % (Auto) 6.5 % (0.0-7.3) 01/18/20 06:25 Eos % (Auto) 0.8 % (0.0-4.3) 01/18/20 06:25 Baso % (Auto) 0.1 % (0.0-1.8) 01/18/20 06:25 Lymph # 0.2 K/mm3 (1.2-5.4) L 01/18/20 06:25 [place] # 0.4 K/mm3 (0.0-0.8) 01/18/20 06:25 Eos # 0.0 K/mm3 (0.0-0.4) 01/18/20 06:25 Baso # 0.0 K/mm3 (0.0-0.1) 01/18/20 06:25 Add Manual Diff Complete 01/25/20 03:50 Total Counted 100 01/25/20 03:50 Seg Neutrophils % Stamps Or Coins Salesperson 01/25/20 03:50 Seg Neuts % (Manual) 92.0 % (40.0-70.0) H 01/25/20 03:50 Band Neutrophils % 0 % 01/25/20 03:50 Lymphocytes % (Manual) 5.0 % (13.4-35.0) L 01/25/20 03:50 Reactive Lymphs % (Man) 0 % 01/25/20 03:50 Monocytes % (Manual) 2.0 % (0.0-7.3) 01/25/20 03:50 Eosinophils % (Manual) 1.0 % (0.0-4.3) 01/25/20 03:50 Basophils % (Manual) 0 % (0.0-1.8) 01/25/20 03:50 Metamyelocytes % 0 % 01/25/20 03:50 Myelocytes % 0 % 01/25/20 03:50 Promyelocytes % 0 % 01/25/20 03:50 Blast Cells % 0 % 01/25/20 03:50 Nucleated RBC % Not Reportable 01/25/20 03:50 Seg Neutrophils # 5.0 K/mm3 (1.8-7.7) 01/18/20 06:25 Seg Neutrophils # Man 12.0 K/mm3 (1.8-7.7) H 01/25/20 03:50 Band Neutrophils # 0.0 K/mm3 01/25/20 03:50 Lymphocytes # (Manual) 0.7 K/mm3 (1.2-5.4) L 01/25/20 03:50 Abs React Lymphs (Man) 0.0 K/mm3 01/25/20 03:50 Monocytes # (Manual) 0.3 K/mm3 (0.0-0.8) 01/25/20 03:50 Eosinophils # (Manual) 0.1 K/mm3 (0.0-0.4) 01/25/20 03:50 Basophils # (Manual) 0.0 K/mm3 (0.0-0.1) 01/25/20 03:50 Metamyelocytes # 0.0 K/mm3 01/25/20 03:50 Myelocytes # 0.0 K/mm3 01/25/20 03:50 Promyelocytes # 0.0 K/mm3 01/25/20 03:50 Blast Cells # 0.0 K/mm3 01/25/20 03:50 WBC Morphology Not Reportable 01/25/20 03:50 Hypersegmented Neuts Not Reportable 01/25/20 03:50 Hyposegmented Neuts Not Reportable 01/25/20 03:50 Hypogranular Neuts Not Reportable 01/25/20 03:50 Smudge Cells Not Reportable 01/25/20 03:50 Toxic Granulation Not Reportable 01/25/20 03:50 Toxic Vacuolation Not Reportable 01/25/20 03:50 Dohle Bodies Not Reportable 01/25/20 03:50 Pelger-Huet Anomaly Not Reportable 01/25/20 03:50 Armando Rods Not Reportable 01/25/20 03:50 Platelet Estimate Consistent w auto 01/25/20 03:50 Clumped Platelets Not Reportable 01/25/20 03:50 Plt Clumps, EDTA Not Reportable 01/25/20 03:50 Large Platelets Not Reportable 01/25/20 03:50 Giant Platelets Not Reportable 01/25/20 03:50 Platelet Satelliting Not Reportable 01/25/20 03:50 Plt Morphology Comment Not Reportable 01/25/20 03:50 RBC Morphology Not Reportable 01/25/20 03:50 Dimorphic RBCs Not Reportable 01/25/20 03:50 Polychromasia Not Reportable 01/25/20 03:50 Hypochromasia Not Reportable 01/25/20 03:50 Poikilocytosis Not Reportable 01/25/20 03:50 Anisocytosis 1+ 01/25/20 03:50 Microcytosis Not Reportable 01/25/20 03:50 Macrocytosis Not Reportable 01/25/20 03:50 Spherocytes Not Reportable 01/25/20 03:50 Pappenheimer Bodies Not Reportable 01/25/20 03:50 Sickle Cells Not Reportable 01/25/20 03:50 Target Cells Not Reportable 01/25/20 03:50 Tear Drop Cells Not Reportable 01/25/20 03:50 Ovalocytes Not Reportable 01/25/20 03:50 Helmet Cells Not Reportable 01/25/20 03:50 [place] Bodies Not Reportable 01/25/20 03:50 [place] Rings Not Reportable 01/25/20 03:50 [place] Cells Not Reportable 01/25/20 03:50 Bite Cells Not Reportable 01/25/20 03:50 Crenated Cell Not Reportable 01/25/20 03:50 Elliptocytes Not Reportable 01/25/20 03:50 Acanthocytes (Spur) Not Reportable 01/25/20 03:50 Rouleaux Not Reportable 01/25/20 03:50 Hemoglobin C Crystals Not Reportable 01/25/20 03:50 Schistocytes Not Reportable 01/25/20 03:50 Malaria parasites Not Reportable 01/25/20 03:50 Ney Bodies Not Reportable 01/25/20 03:50 Hem Pathologist Commnt No 01/25/20 03:50 PT 15.6 Sec. (12.2-14.9) H 01/09/20 12:55 INR 1.22 (0.87-1.13) H 01/09/20 12:55 APTT 31.5 Sec. (24.2-36.6) 01/09/20 12:55 D-Dimer 2379 ng/mlDDU (0-234) H 01/28/20 04:34 Heparin Anti-Xa Level < 0.10 U.I./ml (0.3-0.7) L 01/23/20 Unknown ABG pH 7.307 pH Units (7.350-7.450) L 01/27/20 03:45 ABG pCO2 62.4 mm Hg 01/27/20 03:45 ABG pO2 91.1 mm Hg (80.0-90.0) H 01/27/20 03:45 ABG HCO3 30.5 mmol/L (20.0-26.0) H 01/27/20 03:45 ABG O2 Saturation 96.8 % (95.0-99.0) 01/27/20 03:45 ABG O2 Content 11.7 (0.0-44) 01/27/20 03:45 ABG Base Excess 3.4 mmol/L (-2.0-3.0) H 01/27/20 03:45 ABG Hemoglobin 8.7 gm/dl (12.0-16.0) L 01/27/20 03:45 ABG Carboxyhemoglobin 2.0 % (0.0-5.0) 01/27/20 03:45 ABG Methemoglobin 0.6 % (0.0-1.5) 01/27/20 03:45 Oxyhemoglobin 94.3 % (95.0-99.0) L 01/27/20 03:45 FiO2 65 % 01/27/20 03:45 Sodium 139 mmol/L (137-145) 01/22/20 07:47 Potassium 4.8 mmol/L (3.6-5.0) 01/22/20 07:47 Chloride 94.3 mmol/L (98-107) L 01/22/20 07:47 Carbon Dioxide 24 mmol/L (22-30) 01/22/20 07:47 Anion Gap 26 mmol/L 01/22/20 07:47 BUN 53 mg/dL (7-17) H 01/22/20 07:47 Creatinine 6.5 mg/dL (0.7-1.2) H 01/22/20 07:47 Estimated GFR 8 ml/min 01/22/20 07:47 BUN/Creatinine Ratio 8 % 01/22/20 07:47 Glucose 72 mg/dL (65-100) 01/22/20 07:47 POC Glucose 127 (70-105) H 01/28/20 06:21 Hemoglobin A1c 5.0 % (4-6) 01/10/20 06:54 Calcium 9.0 mg/dL (8.4-10.2) 01/22/20 07:47 Phosphorus 3.30 mg/dL (2.5-4.5) 01/12/20 16:01 Magnesium 2.00 mg/dL (1.7-2.3) 01/13/20 06:11 Ferritin > 2000.0 ng/mL (13.0-400.0) H 01/28/20 04:34 Total Bilirubin 0.30 mg/dL (0.1-1.2) 01/10/20 06:54 AST 30 units/L (5-40) 01/10/20 06:54 ALT 24 units/L (7-56) 01/10/20 06:54 Alkaline Phosphatase 148 units/L (35-129) H 01/10/20 06:54 Lactate Dehydrogenase 434 units/L (91-180) H 01/28/20 04:34 Troponin T 0.315 ng/mL (0.00-0.029) H* 01/10/20 06:54 C-Reactive Protein 9.70 mg/dL (0.00-1.30) H 01/28/20 04:34 NT-Pro-B Natriuret Pep 06559 pg/mL (0-900) H 01/09/20 12:55 Total Protein 5.4 g/dL (6.3-8.2) L 01/10/20 06:54 Albumin 2.7 g/dL (3.9-5) L 01/10/20 06:54 Albumin/Globulin Ratio 1.0 % 01/10/20 06:54 Triglycerides 81 mg/dL (2-149) 01/24/20 04:00 Cholesterol 123 mg/dL (50-199) 01/09/20 12:55 LDL Cholesterol Direct 66 mg/dL (50-130) 01/09/20 12:55 HDL Cholesterol 47 mg/dL (40-59) 01/09/20 12:55 Cholesterol/HDL Ratio 2.61 % 01/09/20 12:55 Hepatitis A IgM Ab Non-reactive (NonReactive) 01/21/20 23:40 Hep Bs Antigen Non-reactive (Negative) 01/21/20 23:40 Hep B Core IgM Ab Non-reactive (NonReactive) 01/21/20 23:40 Hepatitis C Antibody Non-reactive (NonReactive) 01/21/20 23:40 Miscellaneous Test See scanned result 01/11/20 Unknown Miscellaneous Test See scanned result 01/11/20 Unknown Microbiology: Microbiology 01/25/20 Unknown Peripheral/Venous Blood Culture - Preliminary NO GROWTH AFTER 48 HOURS 01/25/20 Unknown Peripheral/Venous Blood Culture - Preliminary NO GROWTH AFTER 48 HOURS Pleitez/IV: Voiding Method Toilet IV Catheter Type [Left Chest] Infusaport IV Catheter Type [Right Peripheral IV External Jugular] IV Catheter Type [Left INT / Saline Lock External Jugular] IV Catheter Type [Left Upper IVAD / Port arm] Active Medications - Current Medications Current Medications: Generic Name Dose Route Start Last Admin Trade Name Freq PRN Reason Stop Dose Admin Acetaminophen 650 mg 01/09/20 16:33 01/27/20 12:26 Tylenol PO 650 mg Q4H PRN Administration Pain MILD(1-3)/Fever >100.5/MEANS Lipase/Protease/Amylase 1 each 01/23/20 14:[address] 10,500 Unit FEEDTUBE PRN PRN For Clogged Feeding Tube Atorvastatin Calcium 40 mg 01/09/20 22:00 01/27/20 21:57 Lipitor PO 40 mg QHS PHILLY Administration Cyclobenzaprine HCl 5 mg 01/09/20 16:27 01/10/20 23:17 Flexeril PO 5 mg QHS PRN Administration Muscle Spasm Dextrose 50 ml 01/23/20 07:26 01/24/20 18:29 D50w (25gm) Syringe IV 50 ml Q30MIN PRN Administration BLOOD GLUCOSE < 70 Dextrose 25 ml 01/24/20 08:58 01/24/20 13:41 D50w (25gm) Syringe IV 25 ml Q4H PRN Administration BG < 80 MG/DL Diphenhydramine HCl 25 mg 01/09/20 16:15 01/12/20 00:50 Benadryl PO 25 mg Q8HR PRN Administration Itching Docusate Sodium 100 mg 01/25/20 22:00 01/27/20 21:55 Colace PO 100 mg BID PHILLY Administration Duloxetine HCl 30 mg 01/09/20 17:00 01/27/20 09:42 Cymbalta PO 30 mg QDAY PHILLY Administration Enoxaparin Sodium 80 mg 01/23/20 12:00 01/27/20 09:42 Enoxaparin SUB-Q 80 mg Q24HR PHILLY Administration Famotidine 20 mg 01/09/20 22:00 01/27/20 09:42 Pepcid PO 20 mg DAILY PHILLY Administration Fentanyl 50 mcg 01/23/20 15:36 01/23/20 15:54 Sublimaze IV 50 mcg Q10MIN PRN Administration ANALGESIA Norepinephrine 4 mg in 250 mls @ 7.5 mls/hr 01/21/20 18:00 01/27/20 20:43 Levophed Drip 4 Mg/Ns 250 Ml IV 2 mcg/min TITR PHILLY 7.5 mls/hr Administration Protocol 2 MCG/MIN Propofol 1,000 mg in 100 mls @ 2.265 mls/hr 01/22/20 09:00 01/28/20 06:30 Diprivan 10 Mg/Ml IV 15 mcg/kg/min TITR PHILLY 6.795 mls/hr Administration Protocol 5 MCG/KG/MIN Fentanyl Citrate 2,000 mcg in 100 mls @ 3.775 mls/hr 01/23/20 16:00 01/24/20 01:32 Fentanyl Drip Premix IV 0 mcg/kg/hr TITR PHILLY 0 mls/hr Titration Protocol 1 MCG/KG/HR Lorazepam 100 mg/ Sodium 100 mls @ 1 mls/hr 01/23/20 16:00 Chloride/ Miscellaneous IV Information TITR PHILLY Protocol 1 MG/HR Sodium Chloride 100 mls @ 999 mls/hr 01/25/20 08:29 Nacl 0.9% IV SILVERIO PRN Hypotension Sodium Chloride 100 mls @ 999 mls/hr 01/26/20 07:54 Nacl 0.9% IV SILVERIO PRN Hypotension Lorazepam 2 mg 01/23/20 15:36 Ativan IV Q10MIN PRN Agitation Ondansetron HCl 4 mg 01/09/20 16:33 01/20/20 10:19 Zofran IV 4 mg Q8H PRN Administration Nausea And Vomiting Simple Syrup 15 ml 01/23/20 14:28 Simple Syrup FEEDTUBE PRN PRN Hypoglycemia Simple Syrup 30 ml 01/23/20 14:28 Simple Syrup FEEDTUBE PRN PRN Hypoglycemia Sodium Bicarbonate 325 mg 01/23/20 14:28 Sodium Bicarbonate FEEDTUBE PRN PRN For Clogged Feeding Tube Sodium Chloride 10 ml 01/09/20 22:00 01/27/20 21:56 Sodium Chloride Flush Syringe 10 Ml IV 10 ml BID PHILLY Administration Sodium Chloride 10 ml 01/09/20 16:33 Sodium Chloride Flush Syringe 10 Ml IV PRN PRN LINE FLUSH Tramadol HCl 50 mg 01/16/20 13:07 01/20/20 10:19 Ultram PO 50 mg Q12HR PRN Administration Pain, Moderate (4-6) Valsartan 80 mg 01/10/20 10:00 01/27/20 09:46 Diovan PO 80 mg DAILY PHILLY Administration Nutrition/Malnutrition Assess - Dietary Evaluation Nutrition/Malnutrition Findings: Nutrition Notes Start: 01/17/20 13:49 Freq: Status: Active Protocol: Document 01/25/20 13:17 LM (Rec: 01/25/20 13:20 LM [email or web address]) Nutrition Notes Initial or Follow up Reassessment Current Diagnosis CKD (stage V CKD),Diabetes, Hypertension,Heart Failure, Respiratory Failure Other Pertinent Diagnosis Bilat pneu, COVID-19 (+), ARDS , volume overload, Chest pain Current Diet Nepro 1.8 at 35ml/hr Labs/Tests POC glu 136 Pertinent Medications Propofol at 2.265ml/hr (60 kcal) Levophed Height 5 ft 6 in Weight 75.5 kg [place] Body Weight (kg) 59.09 BMI 26.9 Subjective/Other Information Nepro running at goal rate and pt tolerating TF. Percent of energy/protein needs met: 95%/75% Burn Absent Trauma Absent Current % PO Negligible Minimum of two criteria Yes Interpretation of Weight Loss (non- 5% in 1 month severe) Fluid Accumulation Mild (non-severe) Reduced Rotary Cutter Feeder Strength Measurably Reduced (severe) #1 Nutrition Diagnosis Malnutrition Diagnosis Progress(for reassessment Continues documentation) Is patient on ventilator? No Is Patient Ambulatory and/or Out of Bed No REE-([facility]-confined to bed) [phone] Calculation Used for Recommendations [facility] Additional Notes Protein: 91-151g (1.2-2g/kg) Fluid: per MD Nutrition Intervention Change Diet Order: Continue TF Nutrition Support: Nepro 1.8 at 35ml/hr (goal rate) Flush 150ml q4h Kcal 1,512 Protein (gm) 68 Fluid (mL) 611 Goal #1 TF tolerance Goal #2 Meet at least 75% of energy and protein needs via TF Anticipated Discharge Needs: unable to determine at this time Follow-Up By: 01/29/20 Additional Comments F/U for TF tolerance
[2020-01-28 09:11] LABS: ABG PCO2 69.8 mm Hg; ABG PH 7.237 pH Units (7.350-7.450); ABG PO2 90.9 mm Hg (80.0-90.0)
[2020-01-28 09:12] LABS: ABG Base Excess 1.1 mmol/L (-2.0-3.0); ABG HCO3 29.1 mmol/L (20.0-26.0); ABG Methemoglobin 0.6 % (0.0-1.5); ABG Oxygen Saturation 96.5 % (95.0-99.0)
[2020-01-28] MEDS ORDERED: SODIUM CHLORIDE 0.9% 1000 ML 2,000 ML ONE (09:20)
[2020-01-28] MEDS: DOCUSATE SODIUM 100 MG/10 ML ORAL LIQD PO SCH ×3 (09:26→22:26)
[2020-01-28] MEDS: FAMOTIDINE 20 MG TAB PO SCH (11:35)
[2020-01-28] MEDS: ENOXAPARIN 80 MG/0.8 ML INJ SUB-Q SCH (11:37)
[2020-01-28] MEDS: VALSARTAN 40 MG TAB PO SCH (11:37)
[2020-01-28] MEDS: DULoxetine 30 MG CAP PO SCH (11:38)
--- NOTE | 2020-01-28 11:42 | Progress Note ---
Assessment and Plan 64 y/o female with COVID positive, viral pneumonia with some pulmonary vascular congestion superimposed. 1. Continue to wean FiO2 for sats >88%. Will attempt to get to as low as 40% today and then start to wean PEEP. May even consider PSV trials as early as tomorrow. 2. HD per renal. UF is definitely helping as changes can be seen in CXR. CXR is better again today. Repeat on Tuesday 3. Changed back to prophylactic dosing for VTE as not confirmed the presence of VTE 4. Overall prognosis is guarded to poor, especially with prior history of ESRD on HD. Continue supportive care. IMS spoke with who has made patient a DNR. I have signed. Hopeful she can pull through but do agree with DNR status given evidence of increased mortality [place] from this novel [place] virus. Spoke with IMS again as they will speak with today. Hopeful he will continue as she has made improvements CCT 31 minutes. Subjective Date of service: 01/28/20 Principal diagnosis: Pneumonia Interval history: No acute events. Down to 50% FiO2 and 14 of PEEP. Spoke with RT at bedside about further weaning. Otherwise no changes. PUI?: Yes COVID19: Positive Objective Vital Signs - 12hr 01/27/20 01/27/20 01/28/20 23:41 23:51 00:00 Temperature Pulse Rate 78 78 76 Pulse Rate [ 73 From Monitor] Respiratory 22 20 20 Rate Blood Pressure 92/49 97/39 113/53 O2 Sat by Pulse 97 97 98 Oximetry O2 Sat by Pulse Oximetry [ Posterior Bilateral Throughout] 01/28/20 01/28/20 01/28/20 00:11 00:12 00:21 Temperature Pulse Rate 77 78 79 Pulse Rate [ From Monitor] Respiratory 17 21 Rate Blood Pressure 113/53 113/53 97/39 O2 Sat by Pulse 98 98 97 Oximetry O2 Sat by Pulse Oximetry [ Posterior Bilateral Throughout] 01/28/20 01/28/20 01/28/20 00:30 00:45 01:01 Temperature Pulse Rate 78 78 75 Pulse Rate [ From Monitor] Respiratory 23 33 H 22 Rate Blood Pressure 113/50 113/50 106/50 O2 Sat by Pulse 97 98 96 Oximetry O2 Sat by Pulse Oximetry [ Posterior Bilateral Throughout] 01/28/20 01/28/20 01/28/20 01:15 01:30 01:45 Temperature Pulse Rate 76 76 75 Pulse Rate [ From Monitor] Respiratory 20 26 H 19 Rate Blood Pressure 106/50 97/55 97/55 O2 Sat by Pulse 97 96 98 Oximetry O2 Sat by Pulse Oximetry [ Posterior Bilateral Throughout] 01/28/20 01/28/20 01/28/20 02:01 02:15 02:31 Temperature Pulse Rate 76 77 77 Pulse Rate [ From Monitor] Respiratory 26 H 20 23 Rate Blood Pressure 94/40 98/43 102/54 O2 Sat by Pulse 98 97 Oximetry O2 Sat by Pulse Oximetry [ Posterior Bilateral Throughout] 01/28/20 01/28/20 01/28/20 02:45 03:01 03:15 Temperature Pulse Rate 77 75 74 Pulse Rate [ From Monitor] Respiratory 21 21 15 Rate Blood Pressure 102/54 100/49 100/49 O2 Sat by Pulse 99 96 98 Oximetry O2 Sat by Pulse Oximetry [ Posterior Bilateral Throughout] 01/28/20 01/28/20 01/28/20 03:31 03:45 04:00 Temperature Pulse Rate 73 74 Pulse Rate [ 72 From Monitor] Respiratory 21 23 Rate Blood Pressure 87/40 87/40 O2 Sat by Pulse 97 99 100 Oximetry O2 Sat by Pulse Oximetry [ Posterior Bilateral Throughout] 01/28/20 01/28/20 01/28/20 04:01 04:15 04:30 Temperature Pulse Rate 73 73 73 Pulse Rate [ From Monitor] Respiratory 17 17 13 Rate Blood Pressure 91/47 91/47 98/45 O2 Sat by Pulse 97 100 Oximetry O2 Sat by Pulse Oximetry [ Posterior Bilateral Throughout] 01/28/20 01/28/20 01/28/20 04:45 05:01 05:15 Temperature Pulse Rate 70 71 71 Pulse Rate [ From Monitor] Respiratory 19 17 21 Rate Blood Pressure 98/45 86/42 86/42 O2 Sat by Pulse 98 100 100 Oximetry O2 Sat by Pulse Oximetry [ Posterior Bilateral Throughout] 01/28/20 01/28/20 01/28/20 05:26 05:31 05:45 Temperature Pulse Rate 71 72 73 Pulse Rate [ From Monitor] Respiratory 18 16 Rate Blood Pressure 97/47 83/40 83/40 O2 Sat by Pulse 100 100 Oximetry O2 Sat by Pulse Oximetry [ Posterior Bilateral Throughout] 01/28/20 01/28/20 01/28/20 06:01 06:15 06:31 Temperature Pulse Rate 72 73 72 Pulse Rate [ From Monitor] Respiratory 17 20 20 Rate Blood Pressure 101/42 101/42 106/45 O2 Sat by Pulse 100 100 100 Oximetry O2 Sat by Pulse Oximetry [ Posterior Bilateral Throughout] 01/28/20 01/28/20 01/28/20 06:45 07:01 07:15 Temperature Pulse Rate 71 70 71 Pulse Rate [ From Monitor] Respiratory 19 19 18 Rate Blood Pressure 106/45 96/49 96/49 O2 Sat by Pulse 99 100 99 Oximetry O2 Sat by Pulse Oximetry [ Posterior Bilateral Throughout] 01/28/20 01/28/20 01/28/20 07:31 07:45 08:00 Temperature Pulse Rate 70 69 76 Pulse Rate [ 76 From Monitor] Respiratory 17 18 21 Rate Blood Pressure 94/43 94/43 O2 Sat by Pulse 100 Oximetry O2 Sat by Pulse Oximetry [ Posterior Bilateral Throughout] 01/28/20 01/28/20 01/28/20 08:01 08:15 08:31 Temperature Pulse Rate 77 76 77 Pulse Rate [ From Monitor] Respiratory 17 21 19 Rate Blood Pressure 78/38 140/53 132/59 O2 Sat by Pulse 100 100 100 Oximetry O2 Sat by Pulse Oximetry [ Posterior Bilateral Throughout] 01/28/20 01/28/20 01/28/20 08:45 09:00 09:17 Temperature 97.8 F Pulse Rate 76 76 Pulse Rate [ From Monitor] Respiratory 18 18 Rate Blood Pressure 132/59 131/59 O2 Sat by Pulse 100 100 Oximetry O2 Sat by Pulse Oximetry [ Posterior Bilateral Throughout] 01/28/20 01/28/20 01/28/20 09:50 10:00 10:15 Temperature 98.9 F Pulse Rate 78 78 78 Pulse Rate [ From Monitor] Respiratory 22 Rate Blood Pressure 120/54 117/61 110/56 O2 Sat by Pulse Oximetry O2 Sat by Pulse 96 Oximetry [ Posterior Bilateral Throughout] 01/28/20 10:30 Temperature Pulse Rate 82 Pulse Rate [ From Monitor] Respiratory Rate Blood Pressure 112/56 O2 Sat by Pulse Oximetry O2 Sat by Pulse Oximetry [ Posterior Bilateral Throughout] Constitutional: other (orally intubated, not sedated currently on vent) Eyes: non-icteric ENT: oropharynx moist Neck: supple Effort: normal Ascultation: Bilateral: rales Cardiovascular: regular rate and rhythm (no mrg) Gastrointestinal: normoactive bowel sounds, soft, non-tender, non-distended Integumentary: normal Extremities: no cyanosis, no edema, pink and warm Neurologic: normal mental status, non-focal exam, pupils equal and round, CN II- XII normal Psychiatric: mood appropriate, affect normal CBC and BMP: 01/25/20 03:50 01/22/20 07:47 ABG, PT/INR, D-dimer: ABG ABG pH 7.237 pH Units (7.350-7.450) L 01/28/20 05:20 ABG pCO2 69.8 mm Hg 01/28/20 05:20 ABG pO2 90.9 mm Hg (80.0-90.0) H 01/28/20 05:20 ABG O2 Saturation 96.5 % (95.0-99.0) 01/28/20 05:20 PT/INR, D-dimer PT 15.6 Sec. (12.2-14.9) H 01/09/20 12:55 INR 1.22 (0.87-1.13) H 01/09/20 12:55 D-Dimer 2379 ng/mlDDU (0-234) H 01/28/20 04:34 Abnormal lab findings: Abnormal Labs 01/09/20 01/09/20 01/09/20 12:55 12:55 12:55 WBC 4.4 L RBC 3.44 L Hgb Hct RDW 17.0 H Plt Count Lymph % (Auto) 6.8 L Dawson % (Auto) 13.6 H Lymph # 0.3 L Seg Neutrophils % 79.0 H Seg Neuts % (Manual) Lymphocytes % (Manual) Seg Neutrophils # Man Lymphocytes # (Manual) PT 15.6 H INR 1.22 H D-Dimer Heparin Anti-Xa Level ABG pH ABG pO2 ABG HCO3 ABG O2 Saturation ABG Base Excess ABG Hemoglobin Oxyhemoglobin Sodium 130 L Chloride 88.9 L Carbon Dioxide 20 L BUN 41 H Creatinine 7.6 H Glucose 115 H POC Glucose Calcium Magnesium Ferritin Alkaline Phosphatase 153 H Lactate Dehydrogenase Troponin T 0.382 H* C-Reactive Protein NT-Pro-B Natriuret Pep 16337 H Total Protein Albumin 3.2 L 01/09/20 01/10/20 01/10/20 20:14 00:16 06:54 WBC 3.3 L RBC 3.00 L Hgb 9.2 L Hct 27.8 L RDW 17.2 H Plt Count Lymph % (Auto) 8.9 L Dawson % (Auto) 11.5 H Lymph # 0.3 L Seg Neutrophils % 79.1 H Seg Neuts % (Manual) Lymphocytes % (Manual) Seg Neutrophils # Man Lymphocytes # (Manual) PT INR D-Dimer Heparin Anti-Xa Level ABG pH ABG pO2 ABG HCO3 ABG O2 Saturation ABG Base Excess ABG Hemoglobin Oxyhemoglobin Sodium Chloride Carbon Dioxide BUN Creatinine Glucose POC Glucose Calcium Magnesium Ferritin Alkaline Phosphatase Lactate Dehydrogenase Troponin T 0.349 H* 0.328 H* C-Reactive Protein NT-Pro-B Natriuret Pep Total Protein Albumin 01/10/20 01/10/20 01/11/20 06:54 06:54 16:45 WBC RBC Hgb Hct RDW Plt Count Lymph % (Auto) Dawson % (Auto) Lymph # Seg Neutrophils % Seg Neuts % (Manual) Lymphocytes % (Manual) Seg Neutrophils # Man Lymphocytes # (Manual) PT INR D-Dimer Heparin Anti-Xa Level ABG pH ABG pO2 ABG HCO3 ABG O2 Saturation ABG Base Excess ABG Hemoglobin Oxyhemoglobin Sodium 133 L Chloride 90.6 L Carbon Dioxide BUN 50 H Creatinine 8.4 H Glucose 101 H POC Glucose 106 H Calcium 8.1 L Magnesium Ferritin Alkaline Phosphatase 148 H Lactate Dehydrogenase Troponin T 0.315 H* C-Reactive Protein NT-Pro-B Natriuret Pep Total Protein 5.4 L Albumin 2.7 L 01/12/20 01/13/20 01/13/20 16:01 06:11 06:11 WBC 3.1 L RBC 3.25 L Hgb 9.8 L Hct RDW 17.2 H Plt Count 136 L Lymph % (Auto) Dawson % (Auto) Lymph # Seg Neutrophils % Seg Neuts % (Manual) Lymphocytes % (Manual) Seg Neutrophils # Man Lymphocytes # (Manual) PT INR D-Dimer Heparin Anti-Xa Level ABG pH ABG pO2 ABG HCO3 ABG O2 Saturation ABG Base Excess ABG Hemoglobin Oxyhemoglobin Sodium 135 L Chloride 93.4 L Carbon Dioxide BUN 19 H Creatinine 4.5 H Glucose 120 H POC Glucose Calcium 7.8 L Magnesium 1.40 L Ferritin Alkaline Phosphatase Lactate Dehydrogenase Troponin T C-Reactive Protein NT-Pro-B Natriuret Pep Total Protein Albumin 01/16/20 01/16/20 01/16/20 08:35 11:49 14:11 WBC RBC Hgb Hct RDW Plt Count Lymph % (Auto) [place] % (Auto) Lymph # Seg Neutrophils % Seg Neuts % (Manual) Lymphocytes % (Manual) Seg Neutrophils # Man Lymphocytes # (Manual) PT INR D-Dimer Heparin Anti-Xa Level ABG pH ABG pO2 48.4 L ABG HCO3 30.5 H ABG O2 Saturation 81.9 L ABG Base Excess 4.6 H ABG Hemoglobin 10.5 L Oxyhemoglobin 80.1 L Sodium Chloride Carbon Dioxide BUN Creatinine Glucose POC Glucose 126 H 119 H Calcium Magnesium Ferritin Alkaline Phosphatase Lactate Dehydrogenase Troponin T C-Reactive Protein NT-Pro-B Natriuret Pep Total Protein Albumin 01/16/20 01/16/20 01/16/20 15:38 15:38 15:38 WBC RBC Hgb Hct RDW Plt Count Lymph % (Auto) [place] % (Auto) Lymph # Seg Neutrophils % Seg Neuts % (Manual) Lymphocytes % (Manual) Seg Neutrophils # Man Lymphocytes # (Manual) PT INR D-Dimer 1104.64 H Heparin Anti-Xa Level ABG pH ABG pO2 ABG HCO3 ABG O2 Saturation ABG Base Excess ABG Hemoglobin Oxyhemoglobin Sodium Chloride Carbon Dioxide BUN Creatinine Glucose POC Glucose Calcium Magnesium Ferritin > 2000.0 H Alkaline Phosphatase Lactate Dehydrogenase 690 H Troponin T C-Reactive Protein 24.10 H NT-Pro-B Natriuret Pep Total Protein Albumin 01/16/20 01/18/20 01/18/20 18:11 06:25 06:25 WBC RBC 3.15 L Hgb 9.4 L Hct 29.4 L RDW 17.5 H Plt Count 135 L Lymph % (Auto) 3.8 L Dawson % (Auto) Lymph # 0.2 L Seg Neutrophils % 88.8 H Seg Neuts % (Manual) Lymphocytes % (Manual) Seg Neutrophils # Man Lymphocytes # (Manual) PT INR D-Dimer Heparin Anti-Xa Level ABG pH ABG pO2 ABG HCO3 ABG O2 Saturation ABG Base Excess ABG Hemoglobin Oxyhemoglobin Sodium Chloride 96.8 L Carbon Dioxide BUN 26 H Creatinine 4.2 H Glucose 115 H POC Glucose 130 H Calcium 8.2 L Magnesium Ferritin Alkaline Phosphatase Lactate Dehydrogenase 537 H Troponin T C-Reactive Protein 17.10 H NT-Pro-B Natriuret Pep Total Protein Albumin 01/18/20 01/18/20 01/18/20 06:25 06:25 12:15 WBC RBC Hgb Hct RDW Plt Count Lymph % (Auto) [place] % (Auto) Lymph # Seg Neutrophils % Seg Neuts % (Manual) Lymphocytes % (Manual) Seg Neutrophils # Man Lymphocytes # (Manual) PT INR D-Dimer 938.03 H Heparin Anti-Xa Level ABG pH ABG pO2 66.5 L ABG HCO3 30.1 H ABG O2 Saturation 93.2 L ABG Base Excess 4.6 H ABG Hemoglobin 10.0 L Oxyhemoglobin 91.3 L Sodium Chloride Carbon Dioxide BUN Creatinine Glucose POC Glucose Calcium Magnesium Ferritin 3105.0 H Alkaline Phosphatase Lactate Dehydrogenase Troponin T C-Reactive Protein NT-Pro-B Natriuret Pep Total Protein Albumin 01/20/20 01/20/20 01/20/20 07:37 07:37 07:37 WBC RBC Hgb Hct RDW Plt Count Lymph % (Auto) [place] % (Auto) Lymph # Seg Neutrophils % Seg Neuts % (Manual) Lymphocytes % (Manual) Seg Neutrophils # Man Lymphocytes # (Manual) PT INR D-Dimer 2072.25 H Heparin Anti-Xa Level ABG pH ABG pO2 ABG HCO3 ABG O2 Saturation ABG Base Excess ABG Hemoglobin Oxyhemoglobin Sodium Chloride Carbon Dioxide BUN Creatinine Glucose POC Glucose Calcium Magnesium Ferritin 1826.0 H Alkaline Phosphatase Lactate Dehydrogenase 496 H Troponin T C-Reactive Protein 19.30 H NT-Pro-B Natriuret Pep Total Protein Albumin 01/20/20 01/21/20 01/21/20 17:30 03:59 17:35 WBC RBC Hgb Hct RDW Plt Count Lymph % (Auto) [place] % (Auto) Lymph # Seg Neutrophils % Seg Neuts % (Manual) Lymphocytes % (Manual) Seg Neutrophils # Man Lymphocytes # (Manual) PT INR D-Dimer Heparin Anti-Xa Level ABG pH ABG pO2 61.1 L 67.4 L ABG HCO3 29.9 H 26.2 H ABG O2 Saturation 91.7 L 93.4 L ABG Base Excess 4.9 H ABG Hemoglobin 9.0 L 9.1 L Oxyhemoglobin 89.5 L 91.1 L Sodium 136 L Chloride Carbon Dioxide BUN 36 H Creatinine 4.9 H Glucose POC Glucose Calcium Magnesium Ferritin Alkaline Phosphatase Lactate Dehydrogenase Troponin T C-Reactive Protein NT-Pro-B Natriuret Pep Total Protein Albumin 01/21/20 01/22/20 01/22/20 Unknown 03:41 03:41 WBC RBC Hgb Hct RDW Plt Count Lymph % (Auto) [place] % (Auto) Lymph # Seg Neutrophils % Seg Neuts % (Manual) Lymphocytes % (Manual) Seg Neutrophils # Man Lymphocytes # (Manual) PT INR D-Dimer Heparin Anti-Xa Level ABG pH 7.465 H ABG pO2 48.9 L ABG HCO3 26.6 H ABG O2 Saturation 85.7 L ABG Base Excess ABG Hemoglobin 10.4 L Oxyhemoglobin 83.5 L Sodium Chloride Carbon Dioxide BUN Creatinine Glucose POC Glucose Calcium Magnesium Ferritin 6071.0 H Alkaline Phosphatase Lactate Dehydrogenase 963 H Troponin T C-Reactive Protein 30.00 H NT-Pro-B Natriuret Pep Total Protein Albumin 01/22/20 01/22/20 01/22/20 03:41 07:47 11:20 WBC RBC Hgb Hct RDW Plt Count Lymph % (Auto) Dawson % (Auto) Lymph # Seg Neutrophils % Seg Neuts % (Manual) Lymphocytes % (Manual) Seg Neutrophils # Man Lymphocytes # (Manual) PT INR D-Dimer > 78316 H Heparin Anti-Xa Level ABG pH ABG pO2 66.7 L ABG HCO3 28.7 H ABG O2 Saturation 91.9 L ABG Base Excess ABG Hemoglobin 9.1 L Oxyhemoglobin 89.5 L Sodium Chloride 94.3 L Carbon Dioxide BUN 53 H Creatinine 6.5 H Glucose POC Glucose Calcium Magnesium Ferritin Alkaline Phosphatase Lactate Dehydrogenase Troponin T C-Reactive Protein NT-Pro-B Natriuret Pep Total Protein Albumin 01/22/20 01/22/20 01/23/20 11:49 Unknown 04:55 WBC 15.1 H RBC 3.05 L Hgb 8.8 L Hct 28.3 L RDW 17.8 H Plt Count 125 L Lymph % (Auto) Dawson % (Auto) Lymph # Seg Neutrophils % Seg Neuts % (Manual) Lymphocytes % (Manual) Seg Neutrophils # Man Lymphocytes # (Manual) PT INR D-Dimer Heparin Anti-Xa Level ABG pH 7.340 L ABG pO2 77.7 L 136.3 H ABG HCO3 27.6 H 28.8 H ABG O2 Saturation ABG Base Excess ABG Hemoglobin 9.3 L 10.9 L Oxyhemoglobin 94.2 L Sodium Chloride Carbon Dioxide BUN Creatinine Glucose POC Glucose Calcium Magnesium Ferritin Alkaline Phosphatase Lactate Dehydrogenase Troponin T C-Reactive Protein NT-Pro-B Natriuret Pep Total Protein Albumin 01/23/20 01/23/20 01/23/20 06:23 07:07 12:23 WBC RBC Hgb Hct RDW Plt Count Lymph % (Auto) [place] % (Auto) Lymph # Seg Neutrophils % Seg Neuts % (Manual) Lymphocytes % (Manual) Seg Neutrophils # Man Lymphocytes # (Manual) PT INR D-Dimer Heparin Anti-Xa Level ABG pH ABG pO2 ABG HCO3 ABG O2 Saturation ABG Base Excess ABG Hemoglobin Oxyhemoglobin Sodium Chloride Carbon Dioxide BUN Creatinine Glucose POC Glucose 57 L 127 H 131 H Calcium Magnesium Ferritin Alkaline Phosphatase Lactate Dehydrogenase Troponin T C-Reactive Protein NT-Pro-B Natriuret Pep Total Protein Albumin 01/23/20 01/23/20 01/24/20 Unknown Unknown 04:00 WBC 16.2 H RBC 3.08 L Hgb 8.9 L Hct 28.6 L RDW 17.8 H Plt Count 139 L Lymph % (Auto) Dawson % (Auto) Lymph # Seg Neutrophils % Seg Neuts % (Manual) Lymphocytes % (Manual) Seg Neutrophils # Man Lymphocytes # (Manual) PT INR D-Dimer Heparin Anti-Xa Level < 0.10 L ABG pH ABG pO2 ABG HCO3 ABG O2 Saturation ABG Base Excess ABG Hemoglobin Oxyhemoglobin Sodium Chloride Carbon Dioxide BUN Creatinine Glucose POC Glucose Calcium Magnesium Ferritin 4195.0 H Alkaline Phosphatase Lactate Dehydrogenase Troponin T C-Reactive Protein NT-Pro-B Natriuret Pep Total Protein Albumin 01/24/20 01/24/20 01/24/20 04:00 04:00 04:00 WBC RBC Hgb Hct RDW Plt Count Lymph % (Auto) [place] % (Auto) Lymph # Seg Neutrophils % Seg Neuts % (Manual) Lymphocytes % (Manual) Seg Neutrophils # Man Lymphocytes # (Manual) PT INR D-Dimer 5783.11 H Heparin Anti-Xa Level ABG pH 7.188 L* ABG pO2 70.8 L ABG HCO3 32.2 H ABG O2 Saturation 90.4 L ABG Base Excess ABG Hemoglobin 8.5 L Oxyhemoglobin 88.1 L Sodium Chloride Carbon Dioxide BUN Creatinine Glucose POC Glucose Calcium Magnesium Ferritin Alkaline Phosphatase Lactate Dehydrogenase 474 H Troponin T C-Reactive Protein 29.80 H NT-Pro-B Natriuret Pep Total Protein Albumin 01/24/20 01/24/20 01/24/20 05:20 05:51 09:14 WBC RBC Hgb Hct RDW Plt Count Lymph % (Auto) [place] % (Auto) Lymph # Seg Neutrophils % Seg Neuts % (Manual) Lymphocytes % (Manual) Seg Neutrophils # Man Lymphocytes # (Manual) PT INR D-Dimer Heparin Anti-Xa Level ABG pH 7.214 L ABG pO2 71.7 L ABG HCO3 31.5 H ABG O2 Saturation 91.8 L ABG Base Excess ABG Hemoglobin 9.1 L Oxyhemoglobin 89.3 L Sodium Chloride Carbon Dioxide BUN Creatinine Glucose POC Glucose 50 L 53 L Calcium Magnesium Ferritin Alkaline Phosphatase Lactate Dehydrogenase Troponin T C-Reactive Protein NT-Pro-B Natriuret Pep Total Protein Albumin 01/24/20 01/24/20 01/24/20 15:10 18:04 21:10 WBC RBC Hgb Hct RDW Plt Count Lymph % (Auto) [place] % (Auto) Lymph # Seg Neutrophils % Seg Neuts % (Manual) Lymphocytes % (Manual) Seg Neutrophils # Man Lymphocytes # (Manual) PT INR D-Dimer Heparin Anti-Xa Level ABG pH ABG pO2 ABG HCO3 ABG O2 Saturation ABG Base Excess ABG Hemoglobin Oxyhemoglobin Sodium Chloride Carbon Dioxide BUN Creatinine Glucose POC Glucose 114 H 51 L 144 H Calcium Magnesium Ferritin Alkaline Phosphatase Lactate Dehydrogenase Troponin T C-Reactive Protein NT-Pro-B Natriuret Pep Total Protein Albumin 01/24/20 01/25/20 01/25/20 Unknown 00:32 03:50 WBC 13.0 H RBC 3.10 L Hgb 9.2 L Hct 29.0 L RDW 17.7 H Plt Count Lymph % (Auto) Dawson % (Auto) Lymph # Seg Neutrophils % Seg Neuts % (Manual) 92.0 H Lymphocytes % (Manual) 5.0 L Seg Neutrophils # Man 12.0 H Lymphocytes # (Manual) 0.7 L PT INR D-Dimer Heparin Anti-Xa Level ABG pH 7.291 L ABG pO2 71.3 L ABG HCO3 30.6 H ABG O2 Saturation 93.6 L ABG Base Excess 3.3 H ABG Hemoglobin 8.1 L Oxyhemoglobin 91.2 L Sodium Chloride Carbon Dioxide BUN Creatinine Glucose POC Glucose 114 H Calcium Magnesium Ferritin Alkaline Phosphatase Lactate Dehydrogenase Troponin T C-Reactive Protein NT-Pro-B Natriuret Pep Total Protein Albumin 01/25/20 01/25/20 01/25/20 04:22 06:05 17:28 WBC RBC Hgb Hct RDW Plt Count Lymph % (Auto) [place] % (Auto) Lymph # Seg Neutrophils % Seg Neuts % (Manual) Lymphocytes % (Manual) Seg Neutrophils # Man Lymphocytes # (Manual) PT INR D-Dimer Heparin Anti-Xa Level ABG pH 7.304 L ABG pO2 69.5 L ABG HCO3 29.7 H ABG O2 Saturation 93.2 L ABG Base Excess ABG Hemoglobin 8.7 L Oxyhemoglobin 90.7 L Sodium Chloride Carbon Dioxide BUN Creatinine Glucose POC Glucose 136 H 127 H Calcium Magnesium Ferritin Alkaline Phosphatase Lactate Dehydrogenase Troponin T C-Reactive Protein NT-Pro-B Natriuret Pep Total Protein Albumin 01/26/20 01/26/20 01/26/20 00:20 02:31 02:31 WBC RBC Hgb Hct RDW Plt Count Lymph % (Auto) [place] % (Auto) Lymph # Seg Neutrophils % Seg Neuts % (Manual) Lymphocytes % (Manual) Seg Neutrophils # Man Lymphocytes # (Manual) PT INR D-Dimer Heparin Anti-Xa Level ABG pH ABG pO2 ABG HCO3 ABG O2 Saturation ABG Base Excess ABG Hemoglobin Oxyhemoglobin Sodium Chloride Carbon Dioxide BUN Creatinine Glucose POC Glucose 127 H Calcium Magnesium Ferritin 3764.0 H Alkaline Phosphatase Lactate Dehydrogenase 393 H Troponin T C-Reactive Protein 28.60 H NT-Pro-B Natriuret Pep Total Protein Albumin 01/26/20 01/26/20 01/26/20 02:31 04:45 05:24 WBC RBC Hgb Hct RDW Plt Count Lymph % (Auto) [place] % (Auto) Lymph # Seg Neutrophils % Seg Neuts % (Manual) Lymphocytes % (Manual) Seg Neutrophils # Man Lymphocytes # (Manual) PT INR D-Dimer 3828.76 H Heparin Anti-Xa Level ABG pH ABG pO2 ABG HCO3 30.8 H ABG O2 Saturation ABG Base Excess 4.9 H ABG Hemoglobin 7.4 L Oxyhemoglobin 94.6 L Sodium Chloride Carbon Dioxide BUN Creatinine Glucose POC Glucose 121 H Calcium Magnesium Ferritin Alkaline Phosphatase Lactate Dehydrogenase Troponin T C-Reactive Protein NT-Pro-B Natriuret Pep Total Protein Albumin 01/26/20 01/26/20 01/26/20 10:40 12:36 18:10 WBC RBC Hgb Hct RDW Plt Count Lymph % (Auto) [place] % (Auto) Lymph # Seg Neutrophils % Seg Neuts % (Manual) Lymphocytes % (Manual) Seg Neutrophils # Man Lymphocytes # (Manual) PT INR D-Dimer Heparin Anti-Xa Level ABG pH ABG pO2 ABG HCO3 ABG O2 Saturation ABG Base Excess ABG Hemoglobin Oxyhemoglobin Sodium Chloride Carbon Dioxide BUN Creatinine Glucose POC Glucose 119 H 126 H 159 H Calcium Magnesium Ferritin Alkaline Phosphatase Lactate Dehydrogenase Troponin T C-Reactive Protein NT-Pro-B Natriuret Pep Total Protein Albumin 01/27/20 01/27/20 01/27/20 03:45 06:15 12:19 WBC RBC Hgb Hct RDW Plt Count Lymph % (Auto) [place] % (Auto) Lymph # Seg Neutrophils % Seg Neuts % (Manual) Lymphocytes % (Manual) Seg Neutrophils # Man Lymphocytes # (Manual) PT INR D-Dimer Heparin Anti-Xa Level ABG pH 7.307 L ABG pO2 91.1 H ABG HCO3 30.5 H ABG O2 Saturation ABG Base Excess 3.4 H ABG Hemoglobin 8.7 L Oxyhemoglobin 94.3 L Sodium Chloride Carbon Dioxide BUN Creatinine Glucose POC Glucose 147 H 164 H Calcium Magnesium Ferritin Alkaline Phosphatase Lactate Dehydrogenase Troponin T C-Reactive Protein NT-Pro-B Natriuret Pep Total Protein Albumin 01/27/20 01/28/20 01/28/20 17:42 00:29 04:34 WBC RBC Hgb Hct RDW Plt Count Lymph % (Auto) [place] % (Auto) Lymph # Seg Neutrophils % Seg Neuts % (Manual) Lymphocytes % (Manual) Seg Neutrophils # Man Lymphocytes # (Manual) PT INR D-Dimer Heparin Anti-Xa Level ABG pH ABG pO2 ABG HCO3 ABG O2 Saturation ABG Base Excess ABG Hemoglobin Oxyhemoglobin Sodium Chloride Carbon Dioxide BUN Creatinine Glucose POC Glucose 149 H 178 H Calcium Magnesium Ferritin > 2000.0 H Alkaline Phosphatase Lactate Dehydrogenase Troponin T C-Reactive Protein NT-Pro-B Natriuret Pep Total Protein Albumin 01/28/20 01/28/20 01/28/20 04:34 04:34 05:20 WBC RBC Hgb Hct RDW Plt Count Lymph % (Auto) [place] % (Auto) Lymph # Seg Neutrophils % Seg Neuts % (Manual) Lymphocytes % (Manual) Seg Neutrophils # Man Lymphocytes # (Manual) PT INR D-Dimer 2379 H Heparin Anti-Xa Level ABG pH 7.237 L ABG pO2 90.9 H ABG HCO3 29.1 H ABG O2 Saturation ABG Base Excess ABG Hemoglobin 7.5 L Oxyhemoglobin 94.0 L Sodium Chloride Carbon Dioxide BUN Creatinine Glucose POC Glucose Calcium Magnesium Ferritin Alkaline Phosphatase Lactate Dehydrogenase 434 H Troponin T C-Reactive Protein 9.70 H NT-Pro-B Natriuret Pep Total Protein Albumin 01/28/20 06:21 WBC RBC Hgb Hct RDW Plt Count Lymph % (Auto) [place] % (Auto) Lymph # Seg Neutrophils % Seg Neuts % (Manual) Lymphocytes % (Manual) Seg Neutrophils # Man Lymphocytes # (Manual) PT INR D-Dimer Heparin Anti-Xa Level ABG pH ABG pO2 ABG HCO3 ABG O2 Saturation ABG Base Excess ABG Hemoglobin Oxyhemoglobin Sodium Chloride Carbon Dioxide BUN Creatinine Glucose POC Glucose 127 H Calcium Magnesium Ferritin Alkaline Phosphatase Lactate Dehydrogenase Troponin T C-Reactive Protein NT-Pro-B Natriuret Pep Total Protein Albumin Allied health notes reviewed: nursing
--- NOTE | 2020-01-28 11:58 | Progress Note ---
Assessment and Plan Cultures: 01/10/2020 blood culture: No growth 01/21/2020 sputum culture: No growth 01/25/2020 blood culture: No growth A/P: #Sepsis with shock: likely due to severe COVID pneumonia. Completed empiric Cefepime x 5 days. #Severe COVID pneumonia: very elevated inflammatory markers. S/p ivermectin x 1 on 01/21/2020 (off label use). S/p hydroxychloroquine with zinc x 5 days. #Acute hypoxic resp failure: intubated, on the vent #ESRD on HD #Thrombocytopenia: resolved Recs: continue supportive care CRP trending down Slava Hannon MD, FACP [facility] ([facility]) C: [phone] O: [phone] F: [phone] Subjective Date of service: 01/28/20 Principal diagnosis: Pneumonia Interval history: Fever +. Remains intubated, sedated. PUI?: Yes COVID19: Positive Objective - Exam Narrative Exam: Physical Exam (reviewed in chart due to PPE conservation) Constitutional: intubated, sedated, on the vent Head, Ears, Nose: normocephalic, atraumatic Eyes: limited due to PPE conservation strategy Neck: intubated Oral: intubated Cardiovascular: limited due to PPE conservation strategy Respiratory: limited due to PPE conservation strategy GI: limited due to PPE conservation strategy Musculoskeletal: limited due to PPE conservation strategy Skin: limited due to PPE conservation strategy Hem/Lymphatic: limited due to PPE conservation strategy Psych: no agitation Neurological: sedated, intubated, on the vent, exam limited. - Constitutional Vitals: Vital Signs Temp Pulse Resp BP Pulse Ox 98.9 F 91 H 22 116/70 95 01/28/20 09:50 01/28/20 11:38 01/28/20 09:50 01/28/20 11:38 01/28/20 11:38 Temperature -Last 24 Hours Temperature 98.9 F Temperature 97.8 F Temperature 100.1 F Temperature 102.1 F Temperature 100.0 F Temperature 102.0 F - Labs CBC & Chem 7: 01/25/20 03:50 01/22/20 07:47 Labs: Abnormal lab results 01/27/20 01/27/20 01/28/20 Range/Units 12:19 17:42 00:29 D-Dimer (0-234) ng/mlDDU ABG pH (7.350-7.450) pH Units ABG pO2 (80.0-90.0) mm Hg ABG HCO3 (20.0-26.0) mmol/L ABG Hemoglobin (12.0-16.0) gm/dl Oxyhemoglobin (95.0-99.0) % POC Glucose 164 H 149 H 178 H (70-105) Ferritin (13.0-400.0) ng/mL Lactate Dehydrogenase (91-180) units/L C-Reactive Protein (0.00-1.30) mg/dL 01/28/20 01/28/20 01/28/20 Range/Units 04:34 04:34 04:34 D-Dimer 2379 H (0-234) ng/mlDDU ABG pH (7.350-7.450) pH Units ABG pO2 (80.0-90.0) mm Hg ABG HCO3 (20.0-26.0) mmol/L ABG Hemoglobin (12.0-16.0) gm/dl Oxyhemoglobin (95.0-99.0) % POC Glucose (70-105) Ferritin > 2000.0 H (13.0-400.0) ng/mL Lactate Dehydrogenase 434 H (91-180) units/L C-Reactive Protein 9.70 H (0.00-1.30) mg/dL 01/28/20 01/28/20 Range/Units 05:20 06:21 D-Dimer (0-234) ng/mlDDU ABG pH 7.237 L (7.350-7.450) pH Units ABG pO2 90.9 H (80.0-90.0) mm Hg ABG HCO3 29.1 H (20.0-26.0) mmol/L ABG Hemoglobin 7.5 L (12.0-16.0) gm/dl Oxyhemoglobin 94.0 L (95.0-99.0) % POC Glucose 127 H (70-105) Ferritin (13.0-400.0) ng/mL Lactate Dehydrogenase (91-180) units/L C-Reactive Protein (0.00-1.30) mg/dL
--- NOTE | 2020-01-28 18:14 | Progress Note ---
Assessment and Plan - Patient Problems (1) Volume overload Current Visit: Yes Status: Acute Qualifiers: Plan to address problem: end-stage renal disease with fluid overload. Improved with fluid removal on dialysis. (2) Pneumonia due to COVID-19 virus Current Visit: Yes Status: Acute Plan to address problem: continue treatment per infectious disease. 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 (5) Acute respiratory failure with hypoxia Current Visit: No Status: Acute Plan to address problem: ventilator management by pulmonary/sales operations consultant (6) Hyponatremia Current Visit: No Status: Acute Plan to address problem: hypervolemic hyponatremia. Follow-up sodium with fluid removal on dialysis (7) Hypertensive chronic kidney disease with stage 5 chronic kidney disease or end stage renal disease Current Visit: No Status: Chronic Plan to address problem: patient is now hypotensive (8) Sepsis with hypotension Current Visit: Yes Status: Acute Plan to address problem: wean Levophed and maintaining mean arterial pressure > 65mmHg Subjective Date of service: 01/28/20 Principal diagnosis: Pneumonia Interval history: Patient lying in bed. she is now intubated on the ventilator in intensive care unit. PUI?: Yes COVID19: Positive Objective - Exam Narrative Exam: elderly -[place] female lying in bed intubated on the ventilator HEENT: Normocephalic atraumatic, endotracheal tube intact Neck: Supple, no venous distention, no goiter CVS: S1S2 RRR No murmur, rub or gallop Lungs: Coarse breath sounds with bilateral rhonchi Abdomen: Full, soft, nontender, no organomegaly no bruit, bowel sounds are present Extremities: No edema, no cyanosis or clubbing Urinary: Deferred Musculo-skeletal: No joint deformities or swelling Neuro: intubated on ventilator - Vital Signs Vital signs: Vital Signs - 12hr 04/01/28/20 01/28/20 06:15 06:31 06:45 Temperature Pulse Rate 73 72 71 Pulse Rate [ From Monitor] Respiratory 20 20 19 Rate Blood Pressure 101/42 106/45 106/45 O2 Sat by Pulse 100 100 99 Oximetry O2 Sat by Pulse Oximetry [ Posterior Bilateral Throughout] 01/28/20 01/28/20 01/28/20 07:01 07:15 07:31 Temperature Pulse Rate 70 71 70 Pulse Rate [ From Monitor] Respiratory 19 18 17 Rate Blood Pressure 96/49 96/49 94/43 O2 Sat by Pulse 100 99 Oximetry O2 Sat by Pulse Oximetry [ Posterior Bilateral Throughout] 01/28/20 01/28/20 01/28/20 07:45 08:00 08:01 Temperature Pulse Rate 69 76 77 Pulse Rate [ 76 From Monitor] Respiratory 18 21 17 Rate Blood Pressure 94/43 78/38 O2 Sat by Pulse 100 100 Oximetry O2 Sat by Pulse Oximetry [ Posterior Bilateral Throughout] 01/28/20 01/28/20 01/28/20 08:15 08:31 08:45 Temperature Pulse Rate 76 77 76 Pulse Rate [ From Monitor] Respiratory 21 19 18 Rate Blood Pressure 140/53 132/59 132/59 O2 Sat by Pulse 100 100 100 Oximetry O2 Sat by Pulse Oximetry [ Posterior Bilateral Throughout] 01/28/20 01/28/20 01/28/20 09:00 09:15 09:17 Temperature 97.8 F Pulse Rate 76 77 Pulse Rate [ From Monitor] Respiratory 18 17 Rate Blood Pressure 131/59 126/57 O2 Sat by Pulse 100 100 Oximetry O2 Sat by Pulse Oximetry [ Posterior Bilateral Throughout] 01/28/20 01/28/20 01/28/20 09:31 09:45 09:50 Temperature 98.9 F Pulse Rate 77 76 78 Pulse Rate [ From Monitor] Respiratory 17 23 22 Rate Blood Pressure 131/59 131/59 120/54 O2 Sat by Pulse 99 97 Oximetry O2 Sat by Pulse 96 Oximetry [ Posterior Bilateral Throughout] 01/28/20 01/28/20 01/28/20 10:00 10:15 10:30 Temperature Pulse Rate 79 78 82 Pulse Rate [ From Monitor] Respiratory 22 20 26 H Rate Blood Pressure 117/61 117/61 112/56 O2 Sat by Pulse 99 97 96 Oximetry O2 Sat by Pulse Oximetry [ Posterior Bilateral Throughout] 01/28/20 01/28/20 01/28/20 10:45 11:00 11:15 Temperature Pulse Rate 87 87 90 Pulse Rate [ From Monitor] Respiratory 18 18 16 Rate Blood Pressure 111/63 104/60 116/68 O2 Sat by Pulse 96 96 95 Oximetry O2 Sat by Pulse Oximetry [ Posterior Bilateral Throughout] 01/28/20 01/28/20 01/28/20 11:30 11:38 11:45 Temperature Pulse Rate 91 H 91 H 92 H Pulse Rate [ From Monitor] Respiratory 17 17 Rate Blood Pressure 104/64 116/70 116/70 O2 Sat by Pulse 96 95 96 Oximetry O2 Sat by Pulse Oximetry [ Posterior Bilateral Throughout] 01/28/20 01/28/20 01/28/20 12:00 12:15 12:30 Temperature Pulse Rate 93 H 92 H 95 H Pulse Rate [ 93 H From Monitor] Respiratory 18 17 20 Rate Blood Pressure 106/68 97/61 111/67 O2 Sat by Pulse 96 96 96 Oximetry O2 Sat by Pulse Oximetry [ Posterior Bilateral Throughout] 01/28/20 01/28/20 01/28/20 12:45 13:00 13:15 Temperature Pulse Rate 94 H 94 H 97 H Pulse Rate [ From Monitor] Respiratory 20 19 21 Rate Blood Pressure 111/67 107/60 107/60 O2 Sat by Pulse 96 96 95 Oximetry O2 Sat by Pulse Oximetry [ Posterior Bilateral Throughout] 01/28/20 01/28/20 01/28/20 13:25 13:30 13:45 Temperature 97.9 F Pulse Rate 96 H 96 H 96 H Pulse Rate [ From Monitor] Respiratory 16 18 20 Rate Blood Pressure 121/65 121/62 121/62 O2 Sat by Pulse 94 98 Oximetry O2 Sat by Pulse 96 Oximetry [ Posterior Bilateral Throughout] 01/28/20 01/28/20 01/28/20 14:00 14:15 14:30 Temperature Pulse Rate 95 H 95 H 94 H Pulse Rate [ From Monitor] Respiratory 19 21 21 Rate Blood Pressure 124/61 124/61 115/65 O2 Sat by Pulse 96 98 95 Oximetry O2 Sat by Pulse Oximetry [ Posterior Bilateral Throughout] 01/28/20 01/28/20 01/28/20 14:45 15:00 15:15 Temperature Pulse Rate 92 H 90 90 Pulse Rate [ From Monitor] Respiratory 21 18 17 Rate Blood Pressure 115/65 105/59 106/62 O2 Sat by Pulse 98 95 94 Oximetry O2 Sat by Pulse Oximetry [ Posterior Bilateral Throughout] 01/28/20 01/28/20 01/28/20 15:30 15:45 16:00 Temperature Pulse Rate 89 90 91 H Pulse Rate [ 91 H From Monitor] Respiratory 22 22 20 Rate Blood Pressure 106/57 121/62 129/66 O2 Sat by Pulse 95 94 94 Oximetry O2 Sat by Pulse Oximetry [ Posterior Bilateral Throughout] 01/28/20 01/28/20 01/28/20 16:15 16:30 16:41 Temperature Pulse Rate 90 91 H 89 Pulse Rate [ From Monitor] Respiratory 20 17 Rate Blood Pressure 129/66 116/63 116/63 O2 Sat by Pulse 96 94 97 Oximetry O2 Sat by Pulse Oximetry [ Posterior Bilateral Throughout] 01/28/20 01/28/20 01/28/20 16:45 17:00 17:16 Temperature Pulse Rate 91 H 92 H 89 Pulse Rate [ From Monitor] Respiratory 19 20 19 Rate Blood Pressure 116/63 129/66 140/59 O2 Sat by Pulse 98 94 94 Oximetry O2 Sat by Pulse Oximetry [ Posterior Bilateral Throughout] 01/28/20 17:31 Temperature Pulse Rate 91 H Pulse Rate [ From Monitor] Respiratory 25 H Rate Blood Pressure 132/57 O2 Sat by Pulse 95 Oximetry O2 Sat by Pulse Oximetry [ Posterior Bilateral Throughout] - Lab 01/25/20 03:50 01/22/20 07:47 Most recent lab results ABG pH 7.237 pH Units (7.350-7.450) L 01/28/20 05:20 ABG pCO2 69.8 mm Hg 01/28/20 05:20 ABG pO2 90.9 mm Hg (80.0-90.0) H 01/28/20 05:20 ABG HCO3 29.1 mmol/L (20.0-26.0) H 01/28/20 05:20 ABG O2 Saturation 96.5 % (95.0-99.0) 01/28/20 05:20 Calcium 9.0 mg/dL (8.4-10.2) 01/22/20 07:47 Phosphorus 3.30 mg/dL (2.5-4.5) 01/12/20 16:01 Magnesium 2.00 mg/dL (1.7-2.3) 01/13/20 06:11 Medications & Allergies - Medications Allergies/Adverse Reactions: Allergies cheese Allergy (Mild, Verified 12/20/19 10:19) Itching iodine Allergy (Mild, Verified 12/20/19 10:16) Anaphylaxis clonidine Allergy (Verified 12/19/19 04:13) Anaphylaxis shellfish derived Adverse Reaction (Verified 12/19/19 04:13) Angioedema Home Medications: Home Medications Medication Instructions Recorded Confirmed Last Taken Type Atorvastatin [Lipitor] 40 mg PO DAILY 11/06/19 01/13/20 01/02/20 10:00 History Acetaminophen [Acetaminophen 8 650 mg PO Q8H PRN #30 tablet.er 11/21/19 01/13/20 01/03/20 22:00 Rx Hour] Cyclobenzaprine HCl [Flexeril 5 MG 5 mg PO QHS PRN #20 tab 11/21/19 01/13/20 01/01/20 22:00 Rx TAB] HYDROcodone/APAP 5-325 [[place] 1 each PO Q6HR PRN #18 tablet 12/13/19 01/13/20 01/01/20 22:00 Rx 5-325 mg TAB] amLODIPine 10 mg PO DAILY 90 Days #90 tab 12/18/19 01/13/20 01/01/20 10:00 Rx Ibuprofen 800 mg PO TID 12/19/19 01/13/20 01/02/20 22:00 History Magnesium Oxide [Mag-Ox] 400 mg PO QDAY 12/19/19 01/13/20 01/03/20 10:00 History diphenhydrAMINE [Benadryl CAP] 25 mg PO Q8HR PRN 12/19/19 01/13/20 01/03/20 21:00 History labetaloL [Labetalol 100mg TAB] 100 mg PO Q8H #90 tablet 12/21/19 01/13/20 01/02/20 10:00 Rx traMADoL [Ultram 50 MG tab] 50 mg PO Q6HR PRN #20 tablet 12/29/19 01/13/20 12/31/19 10:00 Rx DULoxetine [Cymbalta] 30 mg PO QDAY #30 capsule 01/04/20 01/13/20 Unknown Rx Valsartan [Diovan] 80 mg PO DAILY #30 tablet 01/04/20 01/13/20 Unknown Rx Active Medications: Generic Name Dose Route Start Last Admin Trade Name Freq PRN Reason Stop Dose Admin Acetaminophen 650 mg 01/09/20 16:33 01/27/20 12:26 Tylenol PO 650 mg Q4H PRN Administration Pain MILD(1-3)/Fever >100.5/MEANS Lipase/Protease/Amylase 1 each 01/23/20 14:[address] 10,500 Unit FEEDTUBE PRN PRN For Clogged Feeding Tube Atorvastatin Calcium 40 mg 01/09/20 22:00 01/27/20 21:57 Lipitor PO 40 mg QHS PHILLY Administration Cyclobenzaprine HCl 5 mg 01/09/20 16:27 01/10/20 23:17 Flexeril PO 5 mg QHS PRN Administration Muscle Spasm Dextrose 50 ml 01/23/20 07:26 01/24/20 18:29 D50w (25gm) Syringe IV 50 ml Q30MIN PRN Administration BLOOD GLUCOSE < 70 Dextrose 25 ml 01/24/20 08:58 01/24/20 13:41 D50w (25gm) Syringe IV 25 ml Q4H PRN Administration BG < 80 MG/DL Diphenhydramine HCl 25 mg 01/09/20 16:15 01/12/20 00:50 Benadryl PO 25 mg Q8HR PRN Administration Itching Docusate Sodium 100 mg 01/25/20 22:00 01/28/20 09:26 Colace PO Not Given BID PHILLY Duloxetine HCl 30 mg 01/09/20 17:00 01/28/20 11:38 Cymbalta PO 30 mg QDAY PHILLY Administration Enoxaparin Sodium 80 mg 01/23/20 12:00 01/28/20 11:37 Enoxaparin SUB-Q 80 mg Q24HR PHILLY Administration Famotidine 20 mg 01/09/20 22:00 01/28/20 11:35 Pepcid PO 20 mg DAILY PHILLY Administration Fentanyl 50 mcg 01/23/20 15:36 01/23/20 15:54 Sublimaze IV 50 mcg Q10MIN PRN Administration ANALGESIA Norepinephrine 4 mg in 250 mls @ 7.5 mls/hr 01/21/20 18:00 01/28/20 14:00 Levophed Drip 4 Mg/Ns 250 Ml IV 0 mcg/min TITR PHILLY 0 mls/hr Titration Protocol 2 MCG/MIN Propofol 1,000 mg in 100 mls @ 2.265 mls/hr 01/22/20 09:00 01/28/20 16:09 Diprivan 10 Mg/Ml IV 15 mcg/kg/min TITR PHILLY 6.795 mls/hr Titration Protocol 5 MCG/KG/MIN Fentanyl Citrate 2,000 mcg in 100 mls @ 3.775 mls/hr 01/23/20 16:00 01/24/20 01:32 Fentanyl Drip Premix IV 0 mcg/kg/hr TITR PHILLY 0 mls/hr Titration Protocol 1 MCG/KG/HR Lorazepam 100 mg/ Sodium 100 mls @ 1 mls/hr 01/23/20 16:00 Chloride/ Miscellaneous IV Information TITR PHILLY Protocol 1 MG/HR Sodium Chloride 100 mls @ 999 mls/hr 01/26/20 07:54 Nacl 0.9% IV SILVERIO PRN Hypotension Lorazepam 2 mg 01/23/20 15:36 Ativan IV Q10MIN PRN Agitation Ondansetron HCl 4 mg 01/09/20 16:33 01/20/20 10:19 Zofran IV 4 mg Q8H PRN Administration Nausea And Vomiting Simple Syrup 15 ml 01/23/20 14:28 Simple Syrup FEEDTUBE PRN PRN Hypoglycemia Simple Syrup 30 ml 01/23/20 14:28 Simple Syrup FEEDTUBE PRN PRN Hypoglycemia Sodium Bicarbonate 325 mg 01/23/20 14:28 Sodium Bicarbonate FEEDTUBE PRN PRN For Clogged Feeding Tube Sodium Chloride 10 ml 01/09/20 22:00 01/28/20 11:38 Sodium Chloride Flush Syringe 10 Ml IV 10 ml BID PHILLY Administration Sodium Chloride 10 ml 01/09/20 16:33 Sodium Chloride Flush Syringe 10 Ml IV PRN PRN LINE FLUSH Tramadol HCl 50 mg 01/16/20 13:07 01/20/20 10:19 Ultram PO 50 mg Q12HR PRN Administration Pain, Moderate (4-6) Valsartan 80 mg 01/10/20 10:00 01/28/20 11:37 Diovan PO 80 mg DAILY PHILLY Administration
--- NOTE | 2020-01-28 19:39 | Event Note ---
Date: 01/28/20 Called and gave update.
[2020-01-29 05:43] LABS: Hematocrit 29.3 % (30.3-42.9); Hemoglobin 9.2 gm/dl (10.1-14.3); Mean Corpuscular HGB Conc 31 % (30-34); Mean Corpuscular Volume 98 fl (79-97); Platelet Count 275 K/mm3 (140-440); Red Blood Count 3.01 M/mm3 (3.65-5.03); Red Cell Distribution Width 18.1 % (13.2-15.2)
[2020-01-29 05:56] LABS: Albumin 1.7 g/dL (3.9-5); Calcium 8.9 mg/dL (8.4-10.2)
[2020-01-29] MEDS: FAMOTIDINE 20 MG TAB PO SCH (09:49)
[2020-01-29] MEDS: ENOXAPARIN 80 MG/0.8 ML INJ SUB-Q SCH (09:49)
[2020-01-29] MEDS: DULoxetine 30 MG CAP PO SCH (09:49)
[2020-01-29] MEDS: VALSARTAN 40 MG TAB PO SCH (09:50)
[2020-01-29] MEDS: DOCUSATE SODIUM 100 MG/10 ML ORAL LIQD PO SCH ×2 (09:51→21:12)
--- NOTE | 2020-01-29 11:44 | Progress Note ---
Assessment and Plan Assessment and plan: Suspected COVID- 19 Patient with very elevated inflammatory markers of ferritin, CRP, LDH and d- dimer. Bilateral pneumonia. Continue antibiotics per ID ARDS. Etiology secondary to above. Acute hypoxemic respiratory failure. Continue oxygen to maintain sats greater than 92% Appears stable on HFNC; wean FiO2 then flow Chest pain Stress test neg for ischemia GERD and costochondritis in differential diagnosis Volume overload s/p hemodialysis Nephrology consulted,following Acute on Chronic diastolic CHF exacerbation Secondary to volume overload End stage renal disease on dialysis Nephrology following T2DM (type 2 diabetes mellitus) Continue continue coverage Check hemoglobin A1c Hypertension Continue antihypertensives Hyponatremia Secondary to increased volume--dilutional DVT prophylaxis On heparin and GI prophylaxis 01/11 Covid 19 survey testing sent, nasal swab done 01/10 01/12 Patient has acute resp failure. may need Oxygen on dc. awaiting Covid result 01/13 Still has shortness of breath, awaiting Covid test. 01/14 Pt still dyspneic, await covid testing, Pulse ox 83% 01/16/2020. Patient remains dyspneic. Follow-up COVID testing. 01/17/2020. Patient still requiring large amounts of oxygen. Patient currently with 15 L satting at 95%. Patient with increased inflammatory markers. Follow- up chest x-ray today. 01/18/20--Patient still requiring large amounts of oxygen. Patient currently with 15 L %. Patient with increased inflammatory markers. 01/19/2020 very elevated inflammatory markers- ferritin> 2000, CRP >24, LDH> 600, d-dimer >1000 putting her at high risk for ARDS. Continue hydroxychloroquine 400 mg PO BID for 1 day then 200 mg PO BID for 4 days (total 5 days) with zinc 220 mg PO qday. Continue ceftriaxone. ContinueCOVID isolationprecautions pe r [facility] protocol. Continue serial Ferritin, LDH, D-Dimer, CRP every 48h 01/20/2020. Inflammatory markers remain elevated with ferritin 1826, LDH 496, CRP 19.3, and d-dimer 2072. Patient requiring high flow nasal cannula 40L, FiO2 80%. Pulmonary following. Continue antibiotics and Plaquenil. Continue COVID isolationprecautions per [facility] protocol. Patient has a high risk mortality and remains guarded. 01/21/2020. Continue antibiotics and Plaquenil. Continue COVID isolationprecautions per [facility] protocol. Maintain sats of 88% and greater. Still on HFNC, O2 weaned to 95% overnight. Sats documented at 98%. Pulmonary following and reports If patient progresses could give bipap a one hour trial to see if there is improvement, repeat ABG, if not would suggest elective intubation 01/22/2020 Patient still critically ill. Yesterday 01/20 had cardiopulmonary arrest so now intubated in ICU. Prognosis guarded. 01/23/2020 still critically ill. No more fever. Continue vent management. 01/24/20 Still critically ill, remain on vent. Continue current management. Will call . 01/25/20 Patient still critically ill. I called Davis Hernandez and gave update. He wants DNR status and says he will request withdrawal of care if patient does not get better after weekend. I discussed with Residential Support Specialist. 01/26/20 patient still intubated, on vent. She means a DNR order. Discussed with Nurse 01/26 patient still critically ill, vent dependent. 01/27 patient still intubated, on vent. On levophed to keep MAP>65mmhg 01/29/2020 patient still intubated on mechanical ventilation. AC mode ventila tion with rate 20, tidal volume 400, FiO2 45% and PEEP 12. patient with no fever. Patient currently with sedation of propofol. Patient received hemodialysis yesterday with approximately 3 L removed. The high probability of a clinically significant, sudden or life threatening deterioration of the [immunologic and respiratory] system(s) required my full and direct attention, intervention and personal management. The aggregate critical care time was [32] minutes. This time is in addition to time spent performing reported procedures but includes the following: [x] Data Review and interpretation [x] Patient assessment and monitoring of vital signs [x] Documentation [x] Medication orders and management History Interval history: Patient on mechanical ventilation. PUI?: Yes COVID19: Positive Hospitalist Physical - Constitutional Vitals: Temp Pulse Resp BP Pulse Ox 98.7 F 83 17 107/48 95 01/29/20 08:00 01/29/20 09:56 01/29/20 08:00 01/29/20 09:56 01/29/20 09:56 General appearance: Present: no acute distress - EENT Eyes: Present: PERRL, EOM intact ENT: hearing intact, clear oral mucosa, dentition normal - Neck Neck: Present: supple, normal ROM - Respiratory Respiratory effort: normal Respiratory: bilateral: CTA - Cardiovascular Rhythm: regular Heart Sounds: Present: S1 & S2. Absent: gallop, rub - Extremities Extremities: no ischemia, No edema, Full ROM - Abdominal General gastrointestinal: soft, non-tender, non-distended, normal bowel sounds - Integumentary Integumentary: Present: clear, warm, dry - Neurologic Neurologic: CNII-XII intact, moves all extremities BREEZY score - Breezy Score Age > 65: (1) Yes Aspirin use within the Past 7 Days: (1) Yes 3 or more CAD Risk Factors: (1) Yes 2 or more Angina events in past 24 hrs: (1) Yes Known CAD with more than 50% Stenosis: (0) No Elevated Cardiac Markers: (0) No ST Deviation Greater than 0.5mm: (0) No BREEZY Score: 4 Results - Labs CBC & Chem 7: 01/29/20 04:00 01/29/20 04:00 Labs: Laboratory Last Values WBC 12.6 K/mm3 (4.5-11.0) H 01/29/20 04:00 RBC 3.01 M/mm3 (3.65-5.03) L 01/29/20 04:00 Hgb 9.2 gm/dl (10.1-14.3) L 01/29/20 04:00 Hct 29.3 % (30.3-42.9) L 01/29/20 04:00 MCV 98 fl (79-97) H 01/29/20 04:00 MCH 31 pg (28-32) 01/29/20 04:00 MCHC 31 % (30-34) 01/29/20 04:00 RDW 18.1 % (13.2-15.2) H 01/29/20 04:00 Plt Count 275 K/mm3 (140-440) 01/29/20 04:00 Lymph % (Auto) 3.8 % (13.4-35.0) L 01/18/20 06:25 [place] % (Auto) 6.5 % (0.0-7.3) 01/18/20 06:25 Eos % (Auto) 0.8 % (0.0-4.3) 01/18/20 06:25 Baso % (Auto) 0.1 % (0.0-1.8) 01/18/20 06:25 Lymph # 0.2 K/mm3 (1.2-5.4) L 01/18/20 06:25 [place] # 0.4 K/mm3 (0.0-0.8) 01/18/20 06:25 Eos # 0.0 K/mm3 (0.0-0.4) 01/18/20 06:25 Baso # 0.0 K/mm3 (0.0-0.1) 01/18/20 06:25 Add Manual Diff Complete 01/25/20 03:50 Total Counted 100 01/25/20 03:50 Seg Neutrophils % Overhead Distribution Engineer 01/25/20 03:50 Seg Neuts % (Manual) 92.0 % (40.0-70.0) H 01/25/20 03:50 Band Neutrophils % 0 % 01/25/20 03:50 Lymphocytes % (Manual) 5.0 % (13.4-35.0) L 01/25/20 03:50 Reactive Lymphs % (Man) 0 % 01/25/20 03:50 Monocytes % (Manual) 2.0 % (0.0-7.3) 01/25/20 03:50 Eosinophils % (Manual) 1.0 % (0.0-4.3) 01/25/20 03:50 Basophils % (Manual) 0 % (0.0-1.8) 01/25/20 03:50 Metamyelocytes % 0 % 01/25/20 03:50 Myelocytes % 0 % 01/25/20 03:50 Promyelocytes % 0 % 01/25/20 03:50 Blast Cells % 0 % 01/25/20 03:50 Nucleated RBC % Not Reportable 01/25/20 03:50 Seg Neutrophils # 5.0 K/mm3 (1.8-7.7) 01/18/20 06:25 Seg Neutrophils # Man 12.0 K/mm3 (1.8-7.7) H 01/25/20 03:50 Band Neutrophils # 0.0 K/mm3 01/25/20 03:50 Lymphocytes # (Manual) 0.7 K/mm3 (1.2-5.4) L 01/25/20 03:50 Abs React Lymphs (Man) 0.0 K/mm3 01/25/20 03:50 Monocytes # (Manual) 0.3 K/mm3 (0.0-0.8) 01/25/20 03:50 Eosinophils # (Manual) 0.1 K/mm3 (0.0-0.4) 01/25/20 03:50 Basophils # (Manual) 0.0 K/mm3 (0.0-0.1) 01/25/20 03:50 Metamyelocytes # 0.0 K/mm3 01/25/20 03:50 Myelocytes # 0.0 K/mm3 01/25/20 03:50 Promyelocytes # 0.0 K/mm3 01/25/20 03:50 Blast Cells # 0.0 K/mm3 01/25/20 03:50 WBC Morphology Not Reportable 01/25/20 03:50 Hypersegmented Neuts Not Reportable 01/25/20 03:50 Hyposegmented Neuts Not Reportable 01/25/20 03:50 Hypogranular Neuts Not Reportable 01/25/20 03:50 Smudge Cells Not Reportable 01/25/20 03:50 Toxic Granulation Not Reportable 01/25/20 03:50 Toxic Vacuolation Not Reportable 01/25/20 03:50 Dohle Bodies Not Reportable 01/25/20 03:50 Pelger-Huet Anomaly Not Reportable 01/25/20 03:50 Armando Rods Not Reportable 01/25/20 03:50 Platelet Estimate Consistent w auto 01/25/20 03:50 Clumped Platelets Not Reportable 01/25/20 03:50 Plt Clumps, EDTA Not Reportable 01/25/20 03:50 Large Platelets Not Reportable 01/25/20 03:50 Giant Platelets Not Reportable 01/25/20 03:50 Platelet Satelliting Not Reportable 01/25/20 03:50 Plt Morphology Comment Not Reportable 01/25/20 03:50 RBC Morphology Not Reportable 01/25/20 03:50 Dimorphic RBCs Not Reportable 01/25/20 03:50 Polychromasia Not Reportable 01/25/20 03:50 Hypochromasia Not Reportable 01/25/20 03:50 Poikilocytosis Not Reportable 01/25/20 03:50 Anisocytosis 1+ 01/25/20 03:50 Microcytosis Not Reportable 01/25/20 03:50 Macrocytosis Not Reportable 01/25/20 03:50 Spherocytes Not Reportable 01/25/20 03:50 Pappenheimer Bodies Not Reportable 01/25/20 03:50 Sickle Cells Not Reportable 01/25/20 03:50 Target Cells Not Reportable 01/25/20 03:50 Tear Drop Cells Not Reportable 01/25/20 03:50 Ovalocytes Not Reportable 01/25/20 03:50 Helmet Cells Not Reportable 01/25/20 03:50 [place] Bodies Not Reportable 01/25/20 03:50 [place] Rings Not Reportable 01/25/20 03:50 Karen Cells Not Reportable 01/25/20 03:50 Bite Cells Not Reportable 01/25/20 03:50 Crenated Cell Not Reportable 01/25/20 03:50 Elliptocytes Not Reportable 01/25/20 03:50 Acanthocytes (Spur) Not Reportable 01/25/20 03:50 Rouleaux Not Reportable 01/25/20 03:50 Hemoglobin C Crystals Not Reportable 01/25/20 03:50 Schistocytes Not Reportable 01/25/20 03:50 Malaria parasites Not Reportable 01/25/20 03:50 Ney Bodies Not Reportable 01/25/20 03:50 Hem Pathologist Commnt No 01/25/20 03:50 PT 15.6 Sec. (12.2-14.9) H 01/09/20 12:55 INR 1.22 (0.87-1.13) H 01/09/20 12:55 APTT 31.5 Sec. (24.2-36.6) 01/09/20 12:55 D-Dimer 2379 ng/mlDDU (0-234) H 01/28/20 04:34 Heparin Anti-Xa Level < 0.10 U.I./ml (0.3-0.7) L 01/23/20 Unknown ABG pH 7.237 pH Units (7.350-7.450) L 01/28/20 05:20 ABG pCO2 69.8 mm Hg 01/28/20 05:20 ABG pO2 90.9 mm Hg (80.0-90.0) H 01/28/20 05:20 ABG HCO3 29.1 mmol/L (20.0-26.0) H 01/28/20 05:20 ABG O2 Saturation 96.5 % (95.0-99.0) 01/28/20 05:20 ABG O2 Content 10.1 (0.0-44) 01/28/20 05:20 ABG Base Excess 1.1 mmol/L (-2.0-3.0) 01/28/20 05:20 ABG Hemoglobin 7.5 gm/dl (12.0-16.0) L 01/28/20 05:20 ABG Carboxyhemoglobin 2.0 % (0.0-5.0) 01/28/20 05: ABG Methemoglobin 0.6 % (0.0-1.5) 01/28/20 05:20 Oxyhemoglobin 94.0 % (95.0-99.0) L 01/28/20 05: FiO2 55 % 01/28/20 05:20 Sodium 132 mmol/L (137-145) L 01/29/20 04:00 Potassium 4.4 mmol/L (3.6-5.0) 01/29/20 04:00 Chloride 90.1 mmol/L (98-107) L 01/29/20 04:00 Carbon Dioxide 22 mmol/L (22-30) 01/29/20 04:00 Anion Gap 24 mmol/L 01/29/20 04:00 BUN 50 mg/dL (7-17) H 01/29/20 04:00 Creatinine 3.7 mg/dL (0.7-1.2) H 01/29/20 04:00 Estimated GFR 15 ml/min 01/29/20 04:00 BUN/Creatinine Ratio 14 % 01/29/20 04:00 Glucose 184 mg/dL (65-100) H 01/29/20 04:00 POC Glucose 145 (70-105) H 01/29/20 05:03 Hemoglobin A1c 5.0 % (4-6) 01/10/20 06:54 Calcium 8.9 mg/dL (8.4-10.2) 01/29/20 04:00 Phosphorus 3.30 mg/dL (2.5-4.5) 01/12/20 16:01 Magnesium 2.00 mg/dL (1.7-2.3) 01/13/20 06:11 Ferritin > 2000.0 ng/mL (13.0-400.0) H 01/28/20 04:34 Total Bilirubin 0.40 mg/dL (0.1-1.2) 01/29/20 04:00 AST 93 units/L (5-40) H 01/29/20 04:00 ALT 54 units/L (7-56) 01/29/20 04:00 Alkaline Phosphatase 678 units/L (35-129) H 01/29/20 04:00 Lactate Dehydrogenase 434 units/L (91-180) H 01/28/20 04:34 Troponin T 0.315 ng/mL (0.00-0.029) H* 01/10/20 06:54 C-Reactive Protein 9.70 mg/dL (0.00-1.30) H 01/28/20 04:34 NT-Pro-B Natriuret Pep 00159 pg/mL (0-900) H 01/09/20 12:55 Total Protein 7.5 g/dL (6.3-8.2) 01/29/20 04:00 Albumin 1.7 g/dL (3.9-5) L 01/29/20 04:00 Albumin/Globulin Ratio 0.3 % 01/29/20 04:00 Triglycerides 81 mg/dL (2-149) 01/24/20 04:00 Cholesterol 123 mg/dL (50-199) 01/09/20 12:55 LDL Cholesterol Direct 66 mg/dL (50-130) 01/09/20 12:55 HDL Cholesterol 47 mg/dL (40-59) 01/09/20 12:55 Cholesterol/HDL Ratio 2.61 % 01/09/20 12:55 Hepatitis A IgM Ab Non-reactive (NonReactive) 01/21/20 23:40 Hep Bs Antigen Non-reactive (Negative) 01/21/20 23:40 Hep B Core IgM Ab Non-reactive (NonReactive) 01/21/20 23:40 Hepatitis C Antibody Non-reactive (NonReactive) 01/21/20 23:40 Miscellaneous Test See scanned result 01/11/20 Unknown Miscellaneous Test See scanned result 01/11/20 Unknown Microbiology: Microbiology 01/25/20 Unknown Peripheral/Venous Blood Culture - Preliminary NO GROWTH AFTER 72 HOURS 01/25/20 Unknown Peripheral/Venous Blood Culture - Preliminary NO GROWTH AFTER 72 HOURS Pleitez/IV: Voiding Method Toilet IV Catheter Type [Left Chest] Infusaport IV Catheter Type [Right Peripheral IV External Jugular] IV Catheter Type [Left INT / Saline Lock External Jugular] IV Catheter Type [Left Upper IVAD / Port arm] Active Medications - Current Medications Current Medications: Generic Name Dose Route Start Last Admin Trade Name Freq PRN Reason Stop Dose Admin Acetaminophen 650 mg 01/09/20 16:33 01/27/20 12:26 Tylenol PO 650 mg Q4H PRN Administration Pain MILD(1-3)/Fever >100.5/MEANS Lipase/Protease/Amylase 1 each 01/23/20 14:[address] 10,500 Unit FEEDTUBE PRN PRN For Clogged Feeding Tube Atorvastatin Calcium 40 mg 01/09/20 22:00 01/28/20 21:12 Lipitor PO 40 mg QHS PHILLY Administration Cyclobenzaprine HCl 5 mg 01/09/20 16:27 01/10/20 23:17 Flexeril PO 5 mg QHS PRN Administration Muscle Spasm Dextrose 50 ml 01/23/20 07:26 01/24/20 18:29 D50w (25gm) Syringe IV 50 ml Q30MIN PRN Administration BLOOD GLUCOSE < 70 Dextrose 25 ml 01/24/20 08:58 01/24/20 13:41 D50w (25gm) Syringe IV 25 ml Q4H PRN Administration BG < 80 MG/DL Diphenhydramine HCl 25 mg 01/09/20 16:15 01/12/20 00:50 Benadryl PO 25 mg Q8HR PRN Administration Itching Docusate Sodium 100 mg 01/25/20 22:00 01/29/20 09:51 Colace PO Not Given BID PHILLY Duloxetine HCl 30 mg 01/09/20 17:00 01/29/20 09:49 Cymbalta PO 30 mg QDAY PHILLY Administration Enoxaparin Sodium 80 mg 01/23/20 12:00 01/29/20 09:49 Enoxaparin SUB-Q 80 mg Q24HR PHILLY Administration Famotidine 20 mg 01/09/20 22:00 01/29/20 09:49 Pepcid PO 20 mg DAILY PHILLY Administration Fentanyl 50 mcg 01/23/20 15:36 01/23/20 15:54 Sublimaze IV 50 mcg Q10MIN PRN Administration ANALGESIA Norepinephrine 4 mg in 250 mls @ 7.5 mls/hr 01/21/20 18:00 01/28/20 14:00 Levophed Drip 4 Mg/Ns 250 Ml IV 0 mcg/min TITR PHILLY 0 mls/hr Titration Protocol 2 MCG/MIN Propofol 1,000 mg in 100 mls @ 2.265 mls/hr 01/22/20 09:00 01/28/20 21:12 Diprivan 10 Mg/Ml IV 15 mcg/kg/min TITR PHILLY 6.795 mls/hr Administration Protocol 5 MCG/KG/MIN Fentanyl Citrate 2,000 mcg in 100 mls @ 3.775 mls/hr 01/23/20 16:00 01/24/20 01:32 Fentanyl Drip Premix IV 0 mcg/kg/hr TITR PHILLY 0 mls/hr Titration Protocol 1 MCG/KG/HR Lorazepam 100 mg/ Sodium 100 mls @ 1 mls/hr 01/23/20 16:00 Chloride/ Miscellaneous IV Information TITR PHILLY Protocol 1 MG/HR Sodium Chloride 100 mls @ 999 mls/hr 01/26/20 07:54 Nacl 0.9% IV SILVERIO PRN Hypotension Lorazepam 2 mg 01/23/20 15:36 Ativan IV Q10MIN PRN Agitation Ondansetron HCl 4 mg 01/09/20 16:33 01/20/20 10:19 Zofran IV 4 mg Q8H PRN Administration Nausea And Vomiting Simple Syrup 15 ml 01/23/20 14:28 Simple Syrup FEEDTUBE PRN PRN Hypoglycemia Simple Syrup 30 ml 01/23/20 14:28 Simple Syrup FEEDTUBE PRN PRN Hypoglycemia Sodium Bicarbonate 325 mg 01/23/20 14:28 Sodium Bicarbonate FEEDTUBE PRN PRN For Clogged Feeding Tube Sodium Chloride 10 ml 01/09/20 22:00 01/29/20 09:51 Sodium Chloride Flush Syringe 10 Ml IV 10 ml BID PHILLY Administration Sodium Chloride 10 ml 01/09/20 16:33 Sodium Chloride Flush Syringe 10 Ml IV PRN PRN LINE FLUSH Tramadol HCl 50 mg 01/16/20 13:07 01/20/20 10:19 Ultram PO 50 mg Q12HR PRN Administration Pain, Moderate (4-6) Valsartan 80 mg 01/10/20 10:00 01/29/20 09:50 Diovan PO 80 mg DAILY PHILLY Administration Nutrition/Malnutrition Assess - Dietary Evaluation Nutrition/Malnutrition Findings: Nutrition Notes Start: 01/17/20 13:49 Freq: Status: Active Protocol: Document 01/29/20 08:55 LP (Rec: 01/29/20 08:58 LP [email or web address]) Nutrition Notes Initial or Follow up Reassessment Current Diagnosis CKD (stage V CKD),Diabetes, Hypertension,Heart Failure, Respiratory Failure Other Pertinent Diagnosis on HD, Bilat pneu, COVID-19 (+ ) Current Diet Nepro 1.8 at 35ml/hr Labs/Tests Na 132 K 44 BUN 50 Cr 3.7 BG 184 Pertinent Medications Propofol at 6.79 Height 5 ft 6 in Weight 78 kg [place] Body Weight (kg) 59.09 BMI 27.7 Weight Status Overweight Subjective/Other Information Nepro continue at goal rate and tolerating. Percent of energy/protein needs met: 95%/75% Burn Absent Trauma Absent Current % PO Negligible Minimum of two criteria Yes Interpretation of Weight Loss (non- 5% in 1 month severe) Fluid Accumulation Mild (non-severe) Reduced Education Analyst Strength Measurably Reduced (severe) #1 Nutrition Diagnosis Malnutrition Diagnosis Progress(for reassessment Continues documentation) Is patient on ventilator? No Is Patient Ambulatory and/or Out of Bed No REE-([facility]-confined to bed) [phone] Calculation Used for Recommendations [facility] Additional Notes Protein: 91-151g (1.2-2g/kg) Fluid: per MD Nutrition Intervention Change Diet Order: Continue TF Nutrition Support: Nepro 1.8 at 35ml/hr (goal rate) Flush 150ml q4h Kcal 1,512 Protein (gm) 68 Fluid (mL) 611 Goal #1 TF tolerance Goal #2 Meet at least 75% of energy and protein needs via TF Anticipated Discharge Needs: unable to determine at this time Follow-Up By: 01/31/20 Additional Comments Follow for TF tolerance
--- NOTE | 2020-01-29 11:49 | Progress Note ---
Assessment and Plan 64 y/o female with COVID positive, viral pneumonia with some pulmonary vascular congestion superimposed. 1. Continue to wean FiO2 for sats >88%. Will attempt to get to as low as 40% today and then start to wean PEEP. May even consider PSV trials as early as tomorrow. 2. HD per renal. UF is definitely helping as changes can be seen in CXR. Repeat on , will do after HD session tomorrow. 3. Changed back to prophylactic dosing for VTE as not confirmed the presence of VTE 4. Overall prognosis is guarded to poor, especially with prior history of ESRD on HD. Continue supportive care. IMS spoke with who has made patient a DNR. I have signed. Hopeful she can pull through but do agree with DNR status given evidence of increased mortality throughout [place] from this novel [place] virus. Spoke with IMS again as they will speak with today. Hopeful he will continue as she has made improvements CCT 31 minutes. Subjective Date of service: 01/29/20 Principal diagnosis: Pneumonia Interval history: Had HD on yesterday. Down to 45%. PEEP still at 14. On diprovan only for sedation. All others are stable PUI?: Yes COVID19: Positive Objective Vital Signs - 12hr 01/29/20 01/29/20 01/29/20 00:00 00:15 00:30 Temperature Pulse Rate 88 87 89 Pulse Rate [ From Monitor] Respiratory 19 19 20 Rate Blood Pressure 130/58 125/60 131/61 O2 Sat by Pulse 92 92 92 Oximetry 01/29/20 01/29/20 01/29/20 00:37 00:45 01:00 Temperature 98.3 F Pulse Rate 89 88 Pulse Rate [ 87 From Monitor] Respiratory 19 15 Rate Blood Pressure 133/61 O2 Sat by Pulse 93 96 Oximetry 01/29/20 01/29/20 01/29/20 01:01 01:15 01:31 Temperature Pulse Rate 88 88 89 Pulse Rate [ From Monitor] Respiratory 22 21 20 Rate Blood Pressure 111/49 129/60 114/56 O2 Sat by Pulse 92 92 94 Oximetry 01/29/20 01/29/20 01/29/20 01:45 02:00 02:15 Temperature Pulse Rate 89 87 88 Pulse Rate [ From Monitor] Respiratory 21 20 21 Rate Blood Pressure 122/60 123/56 123/58 O2 Sat by Pulse 92 92 92 Oximetry 01/29/20 01/29/20 01/29/20 02:30 02:45 03:00 Temperature Pulse Rate 88 89 88 Pulse Rate [ From Monitor] Respiratory 17 21 21 Rate Blood Pressure 123/57 122/57 128/56 O2 Sat by Pulse 93 93 93 Oximetry 01/29/20 01/29/20 01/29/20 03:05 03:15 03:30 Temperature Pulse Rate 87 89 Pulse Rate [ 87 From Monitor] Respiratory 15 20 Rate Blood Pressure 125/57 122/55 O2 Sat by Pulse 96 92 93 Oximetry 01/29/20 01/29/20 01/29/20 03:45 04:00 04:15 Temperature Pulse Rate 88 87 88 Pulse Rate [ From Monitor] Respiratory 20 22 22 Rate Blood Pressure 121/58 133/58 127/58 O2 Sat by Pulse 93 92 92 Oximetry 01/29/20 01/29/20 01/29/20 04:30 04:44 04:45 Temperature Pulse Rate 88 89 88 Pulse Rate [ From Monitor] Respiratory 19 20 Rate Blood Pressure 134/60 134/63 134/63 O2 Sat by Pulse 92 94 93 Oximetry 01/29/20 01/29/20 01/29/20 05:01 05:15 05:22 Temperature Pulse Rate 86 88 88 Pulse Rate [ From Monitor] Respiratory 19 21 15 Rate Blood Pressure 134/63 129/58 O2 Sat by Pulse 93 96 Oximetry 01/29/20 01/29/20 01/29/20 05:27 05:30 05:45 Temperature 98.4 F Pulse Rate 82 85 Pulse Rate [ From Monitor] Respiratory 21 20 Rate Blood Pressure 104/49 119/55 O2 Sat by Pulse 92 93 Oximetry 01/29/20 01/29/20 01/29/20 06:01 06:15 06:31 Temperature Pulse Rate 84 84 84 Pulse Rate [ From Monitor] Respiratory 21 21 20 Rate Blood Pressure 111/52 116/53 117/54 O2 Sat by Pulse 93 94 93 Oximetry 01/29/20 01/29/20 01/29/20 06:45 07:00 07:15 Temperature Pulse Rate 83 86 85 Pulse Rate [ From Monitor] Respiratory 20 22 19 Rate Blood Pressure 103/49 121/55 116/54 O2 Sat by Pulse 91 93 Oximetry 01/29/20 01/29/20 01/29/20 07:31 07:42 07:45 Temperature Pulse Rate 83 81 82 Pulse Rate [ From Monitor] Respiratory 20 19 Rate Blood Pressure 111/53 111/53 99/46 O2 Sat by Pulse 93 97 94 Oximetry 01/29/20 01/29/20 01/29/20 08:00 08:15 08:30 Temperature 98.7 F Pulse Rate 84 82 84 Pulse Rate [ 84 From Monitor] Respiratory 17 22 21 Rate Blood Pressure 115/56 112/50 112/53 O2 Sat by Pulse 93 94 93 Oximetry 01/29/20 01/29/20 01/29/20 08:45 09:01 09:15 Temperature Pulse Rate 84 85 83 Pulse Rate [ From Monitor] Respiratory 21 16 22 Rate Blood Pressure 112/51 113/50 111/51 O2 Sat by Pulse 93 93 92 Oximetry 01/29/20 01/29/20 01/29/20 09:30 09:45 09:50 Temperature Pulse Rate 85 84 85 Pulse Rate [ From Monitor] Respiratory 22 23 Rate Blood Pressure 108/51 107/48 107/48 O2 Sat by Pulse 93 93 Oximetry 01/29/20 01/29/20 01/29/20 09:56 10:00 10:15 Temperature Pulse Rate 83 83 84 Pulse Rate [ From Monitor] Respiratory 22 22 Rate Blood Pressure 107/48 108/50 107/48 O2 Sat by Pulse 95 94 95 Oximetry 01/29/20 01/29/20 01/29/20 10:30 10:45 11:01 Temperature Pulse Rate 83 83 84 Pulse Rate [ From Monitor] Respiratory 22 15 24 Rate Blood Pressure 110/51 110/48 109/49 O2 Sat by Pulse 93 93 93 Oximetry 01/29/20 01/29/20 11:15 11:31 Temperature Pulse Rate 82 82 Pulse Rate [ From Monitor] Respiratory 18 22 Rate Blood Pressure 103/45 94/47 O2 Sat by Pulse 94 94 Oximetry Constitutional: other (orally intubated, not sedated currently on vent) Eyes: non-icteric ENT: oropharynx moist Neck: supple Effort: normal Ascultation: Bilateral: rales Cardiovascular: regular rate and rhythm (no mrg) Gastrointestinal: normoactive bowel sounds, soft, non-tender, non-distended Integumentary: normal Extremities: no cyanosis, no edema, pink and warm Neurologic: normal mental status, non-focal exam, pupils equal and round, CN II- XII normal Psychiatric: mood appropriate, affect normal CBC and BMP: 01/29/20 04:00 01/29/20 04:00 ABG, PT/INR, D-dimer: ABG ABG pH 7.237 pH Units (7.350-7.450) L 01/28/20 05:20 ABG pCO2 69.8 mm Hg 01/28/20 05:20 ABG pO2 90.9 mm Hg (80.0-90.0) H 01/28/20 05:20 ABG O2 Saturation 96.5 % (95.0-99.0) 01/28/20 05:20 PT/INR, D-dimer PT 15.6 Sec. (12.2-14.9) H 01/09/20 12:55 INR 1.22 (0.87-1.13) H 01/09/20 12:55 D-Dimer 2379 ng/mlDDU (0-234) H 01/28/20 04:34 Abnormal lab findings: Abnormal Labs 01/09/20 01/09/20 01/09/20 12:55 12:55 12:55 WBC 4.4 L RBC 3.44 L Hgb Hct MCV RDW 17.0 H Plt Count Lymph % (Auto) 6.8 L [place] % (Auto) 13.6 H Lymph # 0.3 L Seg Neutrophils % 79.0 H Seg Neuts % (Manual) Lymphocytes % (Manual) Seg Neutrophils # Man Lymphocytes # (Manual) PT 15.6 H INR 1.22 H D-Dimer Heparin Anti-Xa Level ABG pH ABG pO2 ABG HCO3 ABG O2 Saturation ABG Base Excess ABG Hemoglobin Oxyhemoglobin Sodium 130 L Chloride 88.9 L Carbon Dioxide 20 L BUN 41 H Creatinine 7.6 H Glucose 115 H POC Glucose Calcium Magnesium Ferritin AST Alkaline Phosphatase 153 H Lactate Dehydrogenase Troponin T 0.382 H* C-Reactive Protein NT-Pro-B Natriuret Pep 92293 H Total Protein Albumin 3.2 L 01/09/20 01/10/20 01/10/20 20:14 00:16 06:54 WBC 3.3 L RBC 3.00 L Hgb 9.2 L Hct 27.8 L MCV RDW 17.2 H Plt Count Lymph % (Auto) 8.9 L [place] % (Auto) 11.5 H Lymph # 0.3 L Seg Neutrophils % 79.1 H Seg Neuts % (Manual) Lymphocytes % (Manual) Seg Neutrophils # Man Lymphocytes # (Manual) PT INR D-Dimer Heparin Anti-Xa Level ABG pH ABG pO2 ABG HCO3 ABG O2 Saturation ABG Base Excess ABG Hemoglobin Oxyhemoglobin Sodium Chloride Carbon Dioxide BUN Creatinine Glucose POC Glucose Calcium Magnesium Ferritin AST Alkaline Phosphatase Lactate Dehydrogenase Troponin T 0.349 H* 0.328 H* C-Reactive Protein NT-Pro-B Natriuret Pep Total Protein Albumin 01/10/20 01/10/20 01/11/20 06:54 06:54 16:45 WBC RBC Hgb Hct MCV RDW Plt Count Lymph % (Auto) [place] % (Auto) Lymph # Seg Neutrophils % Seg Neuts % (Manual) Lymphocytes % (Manual) Seg Neutrophils # Man Lymphocytes # (Manual) PT INR D-Dimer Heparin Anti-Xa Level ABG pH ABG pO2 ABG HCO3 ABG O2 Saturation ABG Base Excess ABG Hemoglobin Oxyhemoglobin Sodium 133 L Chloride 90.6 L Carbon Dioxide BUN 50 H Creatinine 8.4 H Glucose 101 H POC Glucose 106 H Calcium 8.1 L Magnesium Ferritin AST Alkaline Phosphatase 148 H Lactate Dehydrogenase Troponin T 0.315 H* C-Reactive Protein NT-Pro-B Natriuret Pep Total Protein 5.4 L Albumin 2.7 L 01/12/20 01/13/20 01/13/20 16:01 06:11 06:11 WBC 3.1 L RBC 3.25 L Hgb 9.8 L Hct MCV RDW 17.2 H Plt Count 136 L Lymph % (Auto) [place] % (Auto) Lymph # Seg Neutrophils % Seg Neuts % (Manual) Lymphocytes % (Manual) Seg Neutrophils # Man Lymphocytes # (Manual) PT INR D-Dimer Heparin Anti-Xa Level ABG pH ABG pO2 ABG HCO3 ABG O2 Saturation ABG Base Excess ABG Hemoglobin Oxyhemoglobin Sodium 135 L Chloride 93.4 L Carbon Dioxide BUN 19 H Creatinine 4.5 H Glucose 120 H POC Glucose Calcium 7.8 L Magnesium 1.40 L Ferritin AST Alkaline Phosphatase Lactate Dehydrogenase Troponin T C-Reactive Protein NT-Pro-B Natriuret Pep Total Protein Albumin 01/16/20 01/16/20 01/16/20 08:35 11:49 14:11 WBC RBC Hgb Hct MCV RDW Plt Count Lymph % (Auto) [place] % (Auto) Lymph # Seg Neutrophils % Seg Neuts % (Manual) Lymphocytes % (Manual) Seg Neutrophils # Man Lymphocytes # (Manual) PT INR D-Dimer Heparin Anti-Xa Level ABG pH ABG pO2 48.4 L ABG HCO3 30.5 H ABG O2 Saturation 81.9 L ABG Base Excess 4.6 H ABG Hemoglobin 10.5 L Oxyhemoglobin 80.1 L Sodium Chloride Carbon Dioxide BUN Creatinine Glucose POC Glucose 126 H 119 H Calcium Magnesium Ferritin AST Alkaline Phosphatase Lactate Dehydrogenase Troponin T C-Reactive Protein NT-Pro-B Natriuret Pep Total Protein Albumin 01/16/20 01/16/20 01/16/20 15:38 15:38 15:38 WBC RBC Hgb Hct MCV RDW Plt Count Lymph % (Auto) [place] % (Auto) Lymph # Seg Neutrophils % Seg Neuts % (Manual) Lymphocytes % (Manual) Seg Neutrophils # Man Lymphocytes # (Manual) PT INR D-Dimer 1104.64 H Heparin Anti-Xa Level ABG pH ABG pO2 ABG HCO3 ABG O2 Saturation ABG Base Excess ABG Hemoglobin Oxyhemoglobin Sodium Chloride Carbon Dioxide BUN Creatinine Glucose POC Glucose Calcium Magnesium Ferritin > 2000.0 H AST Alkaline Phosphatase Lactate Dehydrogenase 690 H Troponin T C-Reactive Protein 24.10 H NT-Pro-B Natriuret Pep Total Protein Albumin 01/16/20 01/18/20 01/18/20 18:11 06:25 06:25 WBC RBC 3.15 L Hgb 9.4 L Hct 29.4 L MCV RDW 17.5 H Plt Count 135 L Lymph % (Auto) 3.8 L [place] % (Auto) Lymph # 0.2 L Seg Neutrophils % 88.8 H Seg Neuts % (Manual) Lymphocytes % (Manual) Seg Neutrophils # Man Lymphocytes # (Manual) PT INR D-Dimer Heparin Anti-Xa Level ABG pH ABG pO2 ABG HCO3 ABG O2 Saturation ABG Base Excess ABG Hemoglobin Oxyhemoglobin Sodium Chloride 96.8 L Carbon Dioxide BUN 26 H Creatinine 4.2 H Glucose 115 H POC Glucose 130 H Calcium 8.2 L Magnesium Ferritin AST Alkaline Phosphatase Lactate Dehydrogenase 537 H Troponin T C-Reactive Protein 17.10 H NT-Pro-B Natriuret Pep Total Protein Albumin 01/18/20 01/18/20 01/18/20 06:25 06:25 12:15 WBC RBC Hgb Hct MCV RDW Plt Count Lymph % (Auto) [place] % (Auto) Lymph # Seg Neutrophils % Seg Neuts % (Manual) Lymphocytes % (Manual) Seg Neutrophils # Man Lymphocytes # (Manual) PT INR D-Dimer 938.03 H Heparin Anti-Xa Level ABG pH ABG pO2 66.5 L ABG HCO3 30.1 H ABG O2 Saturation 93.2 L ABG Base Excess 4.6 H ABG Hemoglobin 10.0 L Oxyhemoglobin 91.3 L Sodium Chloride Carbon Dioxide BUN Creatinine Glucose POC Glucose Calcium Magnesium Ferritin 3105.0 H AST Alkaline Phosphatase Lactate Dehydrogenase Troponin T C-Reactive Protein NT-Pro-B Natriuret Pep Total Protein Albumin 01/20/20 01/20/20 01/20/20 07:37 07:37 07:37 WBC RBC Hgb Hct MCV RDW Plt Count Lymph % (Auto) [place] % (Auto) Lymph # Seg Neutrophils % Seg Neuts % (Manual) Lymphocytes % (Manual) Seg Neutrophils # Man Lymphocytes # (Manual) PT INR D-Dimer 2072.25 H Heparin Anti-Xa Level ABG pH ABG pO2 ABG HCO3 ABG O2 Saturation ABG Base Excess ABG Hemoglobin Oxyhemoglobin Sodium Chloride Carbon Dioxide BUN Creatinine Glucose POC Glucose Calcium Magnesium Ferritin 1826.0 H AST Alkaline Phosphatase Lactate Dehydrogenase 496 H Troponin T C-Reactive Protein 19.30 H NT-Pro-B Natriuret Pep Total Protein Albumin 01/20/20 01/21/20 01/21/20 17:30 03:59 17:35 WBC RBC Hgb Hct MCV RDW Plt Count Lymph % (Auto) [place] % (Auto) Lymph # Seg Neutrophils % Seg Neuts % (Manual) Lymphocytes % (Manual) Seg Neutrophils # Man Lymphocytes # (Manual) PT INR D-Dimer Heparin Anti-Xa Level ABG pH ABG pO2 61.1 L 67.4 L ABG HCO3 29.9 H 26.2 H ABG O2 Saturation 91.7 L 93.4 L ABG Base Excess 4.9 H ABG Hemoglobin 9.0 L 9.1 L Oxyhemoglobin 89.5 L 91.1 L Sodium 136 L Chloride Carbon Dioxide BUN 36 H Creatinine 4.9 H Glucose POC Glucose Calcium Magnesium Ferritin AST Alkaline Phosphatase Lactate Dehydrogenase Troponin T C-Reactive Protein NT-Pro-B Natriuret Pep Total Protein Albumin 04/04/0501/22/20 01/22/20 Unknown 03:41 03:41 WBC RBC Hgb Hct MCV RDW Plt Count Lymph % (Auto) [place] % (Auto) Lymph # Seg Neutrophils % Seg Neuts % (Manual) Lymphocytes % (Manual) Seg Neutrophils # Man Lymphocytes # (Manual) PT INR D-Dimer Heparin Anti-Xa Level ABG pH 7.465 H ABG pO2 48.9 L ABG HCO3 26.6 H ABG O2 Saturation 85.7 L ABG Base Excess ABG Hemoglobin 10.4 L Oxyhemoglobin 83.5 L Sodium Chloride Carbon Dioxide BUN Creatinine Glucose POC Glucose Calcium Magnesium Ferritin 6071.0 H AST Alkaline Phosphatase Lactate Dehydrogenase 963 H Troponin T C-Reactive Protein 30.00 H NT-Pro-B Natriuret Pep Total Protein Albumin 01/22/20 01/22/20 01/22/20 03:41 07:47 11:20 WBC RBC Hgb Hct MCV RDW Plt Count Lymph % (Auto) [place] % (Auto) Lymph # Seg Neutrophils % Seg Neuts % (Manual) Lymphocytes % (Manual) Seg Neutrophils # Man Lymphocytes # (Manual) PT INR D-Dimer > 23800 H Heparin Anti-Xa Level ABG pH ABG pO2 66.7 L ABG HCO3 28.7 H ABG O2 Saturation 91.9 L ABG Base Excess ABG Hemoglobin 9.1 L Oxyhemoglobin 89.5 L Sodium Chloride 94.3 L Carbon Dioxide BUN 53 H Creatinine 6.5 H Glucose POC Glucose Calcium Magnesium Ferritin AST Alkaline Phosphatase Lactate Dehydrogenase Troponin T C-Reactive Protein NT-Pro-B Natriuret Pep Total Protein Albumin 01/22/20 01/22/20 01/23/20 11:49 Unknown 04:55 WBC 15.1 H RBC 3.05 L Hgb 8.8 L Hct 28.3 L MCV RDW 17.8 H Plt Count 125 L Lymph % (Auto) [place] % (Auto) Lymph # Seg Neutrophils % Seg Neuts % (Manual) Lymphocytes % (Manual) Seg Neutrophils # Man Lymphocytes # (Manual) PT INR D-Dimer Heparin Anti-Xa Level ABG pH 7.340 L ABG pO2 77.7 L 136.3 H ABG HCO3 27.6 H 28.8 H ABG O2 Saturation ABG Base Excess ABG Hemoglobin 9.3 L 10.9 L Oxyhemoglobin 94.2 L Sodium Chloride Carbon Dioxide BUN Creatinine Glucose POC Glucose Calcium Magnesium Ferritin AST Alkaline Phosphatase Lactate Dehydrogenase Troponin T C-Reactive Protein NT-Pro-B Natriuret Pep Total Protein Albumin 01/23/20 01/23/20 01/23/20 06:23 07:07 12:23 WBC RBC Hgb Hct MCV RDW Plt Count Lymph % (Auto) [place] % (Auto) Lymph # Seg Neutrophils % Seg Neuts % (Manual) Lymphocytes % (Manual) Seg Neutrophils # Man Lymphocytes # (Manual) PT INR D-Dimer Heparin Anti-Xa Level ABG pH ABG pO2 ABG HCO3 ABG O2 Saturation ABG Base Excess ABG Hemoglobin Oxyhemoglobin Sodium Chloride Carbon Dioxide BUN Creatinine Glucose POC Glucose 57 L 127 H 131 H Calcium Magnesium Ferritin AST Alkaline Phosphatase Lactate Dehydrogenase Troponin T C-Reactive Protein NT-Pro-B Natriuret Pep Total Protein Albumin 01/23/20 01/23/20 01/24/20 Unknown Unknown 04:00 WBC 16.2 H RBC 3.08 L Hgb 8.9 L Hct 28.6 L MCV RDW 17.8 H Plt Count 139 L Lymph % (Auto) [place] % (Auto) Lymph # Seg Neutrophils % Seg Neuts % (Manual) Lymphocytes % (Manual) Seg Neutrophils # Man Lymphocytes # (Manual) PT INR D-Dimer Heparin Anti-Xa Level < 0.10 L ABG pH ABG pO2 ABG HCO3 ABG O2 Saturation ABG Base Excess ABG Hemoglobin Oxyhemoglobin Sodium Chloride Carbon Dioxide BUN Creatinine Glucose POC Glucose Calcium Magnesium Ferritin 4195.0 H AST Alkaline Phosphatase Lactate Dehydrogenase Troponin T C-Reactive Protein NT-Pro-B Natriuret Pep Total Protein Albumin 01/24/20 01/24/20 01/24/20 04:00 04:00 04:00 WBC RBC Hgb Hct MCV RDW Plt Count Lymph % (Auto) [place] % (Auto) Lymph # Seg Neutrophils % Seg Neuts % (Manual) Lymphocytes % (Manual) Seg Neutrophils # Man Lymphocytes # (Manual) PT INR D-Dimer 5783.11 H Heparin Anti-Xa Level ABG pH 7.188 L* ABG pO2 70.8 L ABG HCO3 32.2 H ABG O2 Saturation 90.4 L ABG Base Excess ABG Hemoglobin 8.5 L Oxyhemoglobin 88.1 L Sodium Chloride Carbon Dioxide BUN Creatinine Glucose POC Glucose Calcium Magnesium Ferritin AST Alkaline Phosphatase Lactate Dehydrogenase 474 H Troponin T C-Reactive Protein 29.80 H NT-Pro-B Natriuret Pep Total Protein Albumin 01/24/20 01/24/20 01/24/20 05:20 05:51 09:14 WBC RBC Hgb Hct MCV RDW Plt Count Lymph % (Auto) [place] % (Auto) Lymph # Seg Neutrophils % Seg Neuts % (Manual) Lymphocytes % (Manual) Seg Neutrophils # Man Lymphocytes # (Manual) PT INR D-Dimer Heparin Anti-Xa Level ABG pH 7.214 L ABG pO2 71.7 L ABG HCO3 31.5 H ABG O2 Saturation 91.8 L ABG Base Excess ABG Hemoglobin 9.1 L Oxyhemoglobin 89.3 L Sodium Chloride Carbon Dioxide BUN Creatinine Glucose POC Glucose 50 L 53 L Calcium Magnesium Ferritin AST Alkaline Phosphatase Lactate Dehydrogenase Troponin T C-Reactive Protein NT-Pro-B Natriuret Pep Total Protein Albumin 01/24/20 01/24/20 01/24/20 15:10 18:04 21:10 WBC RBC Hgb Hct MCV RDW Plt Count Lymph % (Auto) [place] % (Auto) Lymph # Seg Neutrophils % Seg Neuts % (Manual) Lymphocytes % (Manual) Seg Neutrophils # Man Lymphocytes # (Manual) PT INR D-Dimer Heparin Anti-Xa Level ABG pH ABG pO2 ABG HCO3 ABG O2 Saturation ABG Base Excess ABG Hemoglobin Oxyhemoglobin Sodium Chloride Carbon Dioxide BUN Creatinine Glucose POC Glucose 114 H 51 L 144 H Calcium Magnesium Ferritin AST Alkaline Phosphatase Lactate Dehydrogenase Troponin T C-Reactive Protein NT-Pro-B Natriuret Pep Total Protein Albumin 01/24/20 01/25/20 01/25/20 Unknown 00:32 03:50 WBC 13.0 H RBC 3.10 L Hgb 9.2 L Hct 29.0 L MCV RDW 17.7 H Plt Count Lymph % (Auto) [place] % (Auto) Lymph # Seg Neutrophils % Seg Neuts % (Manual) 92.0 H Lymphocytes % (Manual) 5.0 L Seg Neutrophils # Man 12.0 H Lymphocytes # (Manual) 0.7 L PT INR D-Dimer Heparin Anti-Xa Level ABG pH 7.291 L ABG pO2 71.3 L ABG HCO3 30.6 H ABG O2 Saturation 93.6 L ABG Base Excess 3.3 H ABG Hemoglobin 8.1 L Oxyhemoglobin 91.2 L Sodium Chloride Carbon Dioxide BUN Creatinine Glucose POC Glucose 114 H Calcium Magnesium Ferritin AST Alkaline Phosphatase Lactate Dehydrogenase Troponin T C-Reactive Protein NT-Pro-B Natriuret Pep Total Protein Albumin 01/25/20 01/25/20 01/25/20 04:22 06:05 17:28 WBC RBC Hgb Hct MCV RDW Plt Count Lymph % (Auto) [place] % (Auto) Lymph # Seg Neutrophils % Seg Neuts % (Manual) Lymphocytes % (Manual) Seg Neutrophils # Man Lymphocytes # (Manual) PT INR D-Dimer Heparin Anti-Xa Level ABG pH 7.304 L ABG pO2 69.5 L ABG HCO3 29.7 H ABG O2 Saturation 93.2 L ABG Base Excess ABG Hemoglobin 8.7 L Oxyhemoglobin 90.7 L Sodium Chloride Carbon Dioxide BUN Creatinine Glucose POC Glucose 136 H 127 H Calcium Magnesium Ferritin AST Alkaline Phosphatase Lactate Dehydrogenase Troponin T C-Reactive Protein NT-Pro-B Natriuret Pep Total Protein Albumin 01/26/20 01/26/20 01/26/20 00:20 02:31 02:31 WBC RBC Hgb Hct MCV RDW Plt Count Lymph % (Auto) [place] % (Auto) Lymph # Seg Neutrophils % Seg Neuts % (Manual) Lymphocytes % (Manual) Seg Neutrophils # Man Lymphocytes # (Manual) PT INR D-Dimer Heparin Anti-Xa Level ABG pH ABG pO2 ABG HCO3 ABG O2 Saturation ABG Base Excess ABG Hemoglobin Oxyhemoglobin Sodium Chloride Carbon Dioxide BUN Creatinine Glucose POC Glucose 127 H Calcium Magnesium Ferritin 3764.0 H AST Alkaline Phosphatase Lactate Dehydrogenase 393 H Troponin T C-Reactive Protein 28.60 H NT-Pro-B Natriuret Pep Total Protein Albumin 01/26/20 01/26/20 01/26/20 02:31 04:45 05:24 WBC RBC Hgb Hct MCV RDW Plt Count Lymph % (Auto) [place] % (Auto) Lymph # Seg Neutrophils % Seg Neuts % (Manual) Lymphocytes % (Manual) Seg Neutrophils # Man Lymphocytes # (Manual) PT INR D-Dimer 3828.76 H Heparin Anti-Xa Level ABG pH ABG pO2 ABG HCO3 30.8 H ABG O2 Saturation ABG Base Excess 4.9 H ABG Hemoglobin 7.4 L Oxyhemoglobin 94.6 L Sodium Chloride Carbon Dioxide BUN Creatinine Glucose POC Glucose 121 H Calcium Magnesium Ferritin AST Alkaline Phosphatase Lactate Dehydrogenase Troponin T C-Reactive Protein NT-Pro-B Natriuret Pep Total Protein Albumin 01/26/20 01/26/20 01/26/20 10:40 12:36 18:10 WBC RBC Hgb Hct MCV RDW Plt Count Lymph % (Auto) [place] % (Auto) Lymph # Seg Neutrophils % Seg Neuts % (Manual) Lymphocytes % (Manual) Seg Neutrophils # Man Lymphocytes # (Manual) PT INR D-Dimer Heparin Anti-Xa Level ABG pH ABG pO2 ABG HCO3 ABG O2 Saturation ABG Base Excess ABG Hemoglobin Oxyhemoglobin Sodium Chloride Carbon Dioxide BUN Creatinine Glucose POC Glucose 119 H 126 H 159 H Calcium Magnesium Ferritin AST Alkaline Phosphatase Lactate Dehydrogenase Troponin T C-Reactive Protein NT-Pro-B Natriuret Pep Total Protein Albumin 01/27/20 01/27/20 01/27/20 03:45 06:15 12:19 WBC RBC Hgb Hct MCV RDW Plt Count Lymph % (Auto) [place] % (Auto) Lymph # Seg Neutrophils % Seg Neuts % (Manual) Lymphocytes % (Manual) Seg Neutrophils # Man Lymphocytes # (Manual) PT INR D-Dimer Heparin Anti-Xa Level ABG pH 7.307 L ABG pO2 91.1 H ABG HCO3 30.5 H ABG O2 Saturation ABG Base Excess 3.4 H ABG Hemoglobin 8.7 L Oxyhemoglobin 94.3 L Sodium Chloride Carbon Dioxide BUN Creatinine Glucose POC Glucose 147 H 164 H Calcium Magnesium Ferritin AST Alkaline Phosphatase Lactate Dehydrogenase Troponin T C-Reactive Protein NT-Pro-B Natriuret Pep Total Protein Albumin 01/27/20 01/28/20 01/28/20 17:42 00:29 04:34 WBC RBC Hgb Hct MCV RDW Plt Count Lymph % (Auto) [place] % (Auto) Lymph # Seg Neutrophils % Seg Neuts % (Manual) Lymphocytes % (Manual) Seg Neutrophils # Man Lymphocytes # (Manual) PT INR D-Dimer Heparin Anti-Xa Level ABG pH ABG pO2 ABG HCO3 ABG O2 Saturation ABG Base Excess ABG Hemoglobin Oxyhemoglobin Sodium Chloride Carbon Dioxide BUN Creatinine Glucose POC Glucose 149 H 178 H Calcium Magnesium Ferritin > 2000.0 H AST Alkaline Phosphatase Lactate Dehydrogenase Troponin T C-Reactive Protein NT-Pro-B Natriuret Pep Total Protein Albumin 01/28/20 01/28/20 01/28/20 04:34 04:34 05:20 WBC RBC Hgb Hct MCV RDW Plt Count Lymph % (Auto) [place] % (Auto) Lymph # Seg Neutrophils % Seg Neuts % (Manual) Lymphocytes % (Manual) Seg Neutrophils # Man Lymphocytes # (Manual) PT INR D-Dimer 2379 H Heparin Anti-Xa Level ABG pH 7.237 L ABG pO2 90.9 H ABG HCO3 29.1 H ABG O2 Saturation ABG Base Excess ABG Hemoglobin 7.5 L Oxyhemoglobin 94.0 L Sodium Chloride Carbon Dioxide BUN Creatinine Glucose POC Glucose Calcium Magnesium Ferritin AST Alkaline Phosphatase Lactate Dehydrogenase 434 H Troponin T C-Reactive Protein 9.70 H NT-Pro-B Natriuret Pep Total Protein Albumin 01/28/20 01/28/20 01/28/20 06:21 12:25 18:17 WBC RBC Hgb Hct MCV RDW Plt Count Lymph % (Auto) [place] % (Auto) Lymph # Seg Neutrophils % Seg Neuts % (Manual) Lymphocytes % (Manual) Seg Neutrophils # Man Lymphocytes # (Manual) PT INR D-Dimer Heparin Anti-Xa Level ABG pH ABG pO2 ABG HCO3 ABG O2 Saturation ABG Base Excess ABG Hemoglobin Oxyhemoglobin Sodium Chloride Carbon Dioxide BUN Creatinine Glucose POC Glucose 127 H 196 H 190 H Calcium Magnesium Ferritin AST Alkaline Phosphatase Lactate Dehydrogenase Troponin T C-Reactive Protein NT-Pro-B Natriuret Pep Total Protein Albumin 01/28/20 01/29/20 01/29/20 23:35 04:00 04:00 WBC 12.6 H RBC 3.01 L Hgb 9.2 L Hct 29.3 L MCV 98 H RDW 18.1 H Plt Count Lymph % (Auto) [place] % (Auto) Lymph # Seg Neutrophils % Seg Neuts % (Manual) Lymphocytes % (Manual) Seg Neutrophils # Man Lymphocytes # (Manual) PT INR D-Dimer Heparin Anti-Xa Level ABG pH ABG pO2 ABG HCO3 ABG O2 Saturation ABG Base Excess ABG Hemoglobin Oxyhemoglobin Sodium 132 L Chloride 90.1 L Carbon Dioxide BUN 50 H Creatinine 3.7 H Glucose 184 H POC Glucose 177 H Calcium Magnesium Ferritin AST 93 H Alkaline Phosphatase 678 H Lactate Dehydrogenase Troponin T C-Reactive Protein NT-Pro-B Natriuret Pep Total Protein Albumin 1.7 L 01/29/20 05:03 WBC RBC Hgb Hct MCV RDW Plt Count Lymph % (Auto) [place] % (Auto) Lymph # Seg Neutrophils % Seg Neuts % (Manual) Lymphocytes % (Manual) Seg Neutrophils # Man Lymphocytes # (Manual) PT INR D-Dimer Heparin Anti-Xa Level ABG pH ABG pO2 ABG HCO3 ABG O2 Saturation ABG Base Excess ABG Hemoglobin Oxyhemoglobin Sodium Chloride Carbon Dioxide BUN Creatinine Glucose POC Glucose 145 H Calcium Magnesium Ferritin AST Alkaline Phosphatase Lactate Dehydrogenase Troponin T C-Reactive Protein NT-Pro-B Natriuret Pep Total Protein Albumin Allied health notes reviewed: nursing
--- NOTE | 2020-01-29 13:24 | Progress Note ---
Assessment and Plan Cultures: 01/10/2020 blood culture: No growth 01/21/2020 sputum culture: No growth 01/25/2020 blood culture: No growth A/P: #Sepsis with shock: likely due to severe COVID pneumonia. Completed empiric Cefepime x 5 days. #Severe COVID pneumonia: very elevated inflammatory markers. S/p ivermectin x 1 on 01/21/2020 (off label use). S/p hydroxychloroquine with zinc x 5 days. #Acute hypoxic resp failure: intubated, on the vent #ESRD on HD #Thrombocytopenia: resolved #Elevated LFTs Recs: continue supportive care, ventilatory support monitor LFTs, if alk phos, continues to rise, may need to image abdomen Slava Hannon MD, FACP [facility] C: [phone] O: [phone] F: [phone] Subjective Date of service: 01/29/20 Principal diagnosis: Pneumonia Interval history: No fever. Remains intubated, sedated. PUI?: Yes COVID19: Positive Objective - Exam Narrative Exam: Physical Exam (reviewed in chart due to PPE conservation) Constitutional: intubated, sedated, on the vent Head, Ears, Nose: normocephalic, atraumatic Eyes: limited due to PPE conservation strategy Neck: intubated Oral: intubated Cardiovascular: limited due to PPE conservation strategy Respiratory: limited due to PPE conservation strategy GI: limited due to PPE conservation strategy Musculoskeletal: limited due to PPE conservation strategy Skin: limited due to PPE conservation strategy Hem/Lymphatic: limited due to PPE conservation strategy Psych: no agitation Neurological: sedated, intubated, on the vent, exam limited. - Constitutional Vitals: Vital Signs Temp Pulse Resp BP Pulse Ox 98.6 F 84 25 H 105/49 92 01/29/20 12:00 01/29/20 12:15 01/29/20 12:15 01/29/20 12:15 01/29/20 12:15 Temperature -Last 24 Hours Temperature 98.6 F Temperature 98.7 F Temperature 98.4 F Temperature 98.3 F Temperature 98.9 F Temperature 97.9 F - Labs CBC & Chem 7: 01/29/20 04:00 01/29/20 04:00 Labs: Abnormal lab results 01/28/20 01/28/20 01/29/20 Range/Units 18:17 23:35 04:00 WBC 12.6 H (4.5-11.0) K/mm3 RBC 3.01 L (3.65-5.03) M/mm3 Hgb 9.2 L (10.1-14.3) gm/dl Hct 29.3 L (30.3-42.9) % MCV 98 H (79-97) fl RDW 18.1 H (13.2-15.2) % Sodium (137-145) mmol/L Chloride (98-107) mmol/L BUN (7-17) mg/dL Creatinine (0.7-1.2) mg/dL Glucose (65-100) mg/dL POC Glucose 190 H 177 H (70-105) AST (5-40) units/L Alkaline Phosphatase (35-129) units/L Albumin (3.9-5) g/dL 01/29/20 01/29/20 01/29/20 Range/Units 04:00 05:03 11:53 WBC (4.5-11.0) K/mm3 RBC (3.65-5.03) M/mm3 Hgb (10.1-14.3) gm/dl Hct (30.3-42.9) % MCV (79-97) fl RDW (13.2-15.2) % Sodium 132 L (137-145) mmol/L Chloride 90.1 L (98-107) mmol/L BUN 50 H (7-17) mg/dL Creatinine 3.7 H (0.7-1.2) mg/dL Glucose 184 H (65-100) mg/dL POC Glucose 145 H 193 H (70-105) AST 93 H (5-40) units/L Alkaline Phosphatase 678 H (35-129) units/L Albumin 1.7 L (3.9-5) g/dL
--- NOTE | 2020-01-29 17:51 | Progress Note ---
Assessment and Plan - Patient Problems (1) Volume overload Current Visit: Yes Status: Acute Qualifiers: Plan to address problem: end-stage renal disease with fluid overload. Improved with fluid removal on dialysis. (2) Pneumonia due to COVID-19 virus Current Visit: Yes Status: Acute Plan to address problem: continue treatment per infectious disease. 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 (5) Acute respiratory failure with hypoxia Current Visit: No Status: Acute Plan to address problem: ventilator management by pulmonary/phlebotomy support tech (6) Hyponatremia Current Visit: No Status: Acute Plan to address problem: hypervolemic hyponatremia. 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 she is intubated on the ventilator in intensive care unit. I did not examine patient today for PPE conservation PUI?: Yes COVID19: Positive Objective - Exam Narrative Exam: elderly -British female lying in bed intubated on the ventilator HEENT: Normocephalic atraumatic, endotracheal tube intact Neck: Supple, no venous distention, no goiter CVS: S1S2 RRR No murmur, rub or gallop Lungs: Coarse breath sounds with bilateral rhonchi Abdomen: Full, soft, nontender, no organomegaly no bruit, bowel sounds are present Extremities: No edema, no cyanosis or clubbing Urinary: Deferred Musculo-skeletal: No joint deformities or swelling Neuro: intubated on ventilator - Vital Signs Vital signs: Vital Signs - 12hr 01/29/20 01/29/20 01/29/20 06:01 06:15 06:31 Temperature Pulse Rate 84 84 84 Pulse Rate [ From Monitor] Respiratory 21 21 20 Rate Blood Pressure 111/52 116/53 117/54 O2 Sat by Pulse 93 94 93 Oximetry 01/29/20 01/29/20 01/29/20 06:45 07:00 07:15 Temperature Pulse Rate 83 86 85 Pulse Rate [ From Monitor] Respiratory 20 22 19 Rate Blood Pressure 103/49 121/55 116/54 O2 Sat by Pulse 91 93 Oximetry 01/29/20 01/29/20 01/29/20 07:31 07:42 07:45 Temperature Pulse Rate 83 81 82 Pulse Rate [ From Monitor] Respiratory 20 19 Rate Blood Pressure 111/53 111/53 99/46 O2 Sat by Pulse 93 97 94 Oximetry 01/29/20 01/29/20 01/29/20 08:00 08:15 08:30 Temperature 98.7 F Pulse Rate 84 82 84 Pulse Rate [ 84 From Monitor] Respiratory 17 22 21 Rate Blood Pressure 115/56 112/50 112/53 O2 Sat by Pulse 93 94 93 Oximetry 01/29/20 01/29/20 01/29/20 08:45 09:01 09:15 Temperature Pulse Rate 84 85 83 Pulse Rate [ From Monitor] Respiratory 21 16 22 Rate Blood Pressure 112/51 113/50 111/51 O2 Sat by Pulse 93 93 92 Oximetry 01/29/20 01/29/20 01/29/20 09:30 09:45 09:50 Temperature Pulse Rate 85 84 85 Pulse Rate [ From Monitor] Respiratory 22 23 Rate Blood Pressure 108/51 107/48 107/48 O2 Sat by Pulse 93 93 Oximetry 01/29/20 01/29/20 01/29/20 09:56 10:00 10:15 Temperature Pulse Rate 83 83 84 Pulse Rate [ From Monitor] Respiratory 22 22 Rate Blood Pressure 107/48 108/50 107/48 O2 Sat by Pulse 95 94 95 Oximetry 01/29/20 01/29/20 01/29/20 10:30 10:45 11:01 Temperature Pulse Rate 83 83 84 Pulse Rate [ From Monitor] Respiratory 22 15 24 Rate Blood Pressure 110/51 110/48 109/49 O2 Sat by Pulse 93 93 93 Oximetry 01/29/20 01/29/20 01/29/20 11:15 11:31 11:45 Temperature Pulse Rate 82 82 82 Pulse Rate [ From Monitor] Respiratory 18 22 19 Rate Blood Pressure 103/45 94/47 105/46 O2 Sat by Pulse 94 94 93 Oximetry 01/29/20 01/29/20 01/29/20 11:58 12:00 12:01 Temperature 98.6 F Pulse Rate 83 83 83 Pulse Rate [ 83 From Monitor] Respiratory 22 22 Rate Blood Pressure 105/46 104/49 O2 Sat by Pulse 95 93 93 Oximetry 01/29/20 01/29/20 01/29/20 12:15 12:30 12:45 Temperature Pulse Rate 84 85 84 Pulse Rate [ From Monitor] Respiratory 25 H 24 23 Rate Blood Pressure 105/49 107/47 108/49 O2 Sat by Pulse 92 92 91 Oximetry 01/29/20 01/29/20 01/29/20 13:01 13:15 13:30 Temperature Pulse Rate 84 86 85 Pulse Rate [ From Monitor] Respiratory 16 22 22 Rate Blood Pressure 102/46 107/48 118/50 O2 Sat by Pulse 92 92 92 Oximetry 01/29/20 01/29/20 01/29/20 13:45 14:01 14:12 Temperature Pulse Rate 87 86 Pulse Rate [ From Monitor] Respiratory 22 21 17 Rate Blood Pressure 113/53 117/49 O2 Sat by Pulse 91 92 Oximetry 01/29/20 01/29/20 01/29/20 14:15 14:31 14:45 Temperature Pulse Rate 87 87 86 Pulse Rate [ From Monitor] Respiratory 19 21 22 Rate Blood Pressure 117/50 119/50 112/49 O2 Sat by Pulse 91 92 90 Oximetry 01/29/20 01/29/20 01/29/20 15:01 15:15 15:31 Temperature Pulse Rate 87 87 88 Pulse Rate [ From Monitor] Respiratory 22 21 22 Rate Blood Pressure 113/48 116/48 109/49 O2 Sat by Pulse 92 92 91 Oximetry 01/29/20 01/29/20 01/29/20 15:45 16:00 16:01 Temperature Pulse Rate 88 88 88 Pulse Rate [ 88 From Monitor] Respiratory 18 18 18 Rate Blood Pressure 119/52 121/51 O2 Sat by Pulse 92 92 92 Oximetry 01/29/20 01/29/20 01/29/20 16:15 16:31 16:45 Temperature Pulse Rate 87 88 87 Pulse Rate [ From Monitor] Respiratory 20 19 21 Rate Blood Pressure 120/52 111/43 110/49 O2 Sat by Pulse 92 91 92 Oximetry 01/29/20 01/29/20 17:01 17:18 Temperature Pulse Rate 87 87 Pulse Rate [ From Monitor] Respiratory 22 Rate Blood Pressure 109/47 104/46 O2 Sat by Pulse 91 93 Oximetry - Lab 01/29/20 04:00 01/29/20 04:00 Most recent lab results ABG pH 7.237 pH Units (7.350-7.450) L 01/28/20 05:20 ABG pCO2 69.8 mm Hg 01/28/20 05:20 ABG pO2 90.9 mm Hg (80.0-90.0) H 01/28/20 05: ABG HCO3 29.1 mmol/L (20.0-26.0) H 01/28/20 05:20 ABG O2 Saturation 96.5 % (95.0-99.0) 01/28/20 05:20 Calcium 8.9 mg/dL (8.4-10.2) 01/29/20 04:00 Phosphorus 3.30 mg/dL (2.5-4.5) 01/12/20 16:01 Magnesium 2.00 mg/dL (1.7-2.3) 01/13/20 06:11 Medications & Allergies - Medications Allergies/Adverse Reactions: Allergies cheese Allergy (Mild, Verified 12/20/19 10:19) Itching iodine Allergy (Mild, Verified 12/20/19 10:16) Anaphylaxis clonidine Allergy (Verified 12/19/19 04:13) Anaphylaxis shellfish derived Adverse Reaction (Verified 12/19/19 04:13) Angioedema Home Medications: Home Medications Medication Instructions Recorded Confirmed Last Taken Type Atorvastatin [Lipitor] 40 mg PO DAILY 11/06/19 01/13/20 01/02/20 10:00 History Acetaminophen [Acetaminophen 8 650 mg PO Q8H PRN #30 tablet.er 11/21/19 01/13/20 01/03/20 22:00 Rx Hour] Cyclobenzaprine HCl [Flexeril 5 MG 5 mg PO QHS PRN #20 tab 11/21/19 01/13/20 01/01/20 22:00 Rx TAB] HYDROcodone/APAP 5-325 [Chapman 1 each PO Q6HR PRN #18 tablet 12/13/19 01/13/20 01/01/20 22:00 Rx 5-325 mg TAB] amLODIPine 10 mg PO DAILY 90 Days #90 tab 12/18/19 01/13/20 01/01/20 10:00 Rx Ibuprofen 800 mg PO TID 12/19/19 01/13/20 01/02/20 22:00 History Magnesium Oxide [Mag-Ox] 400 mg PO QDAY 12/19/19 01/13/20 01/03/20 10:00 History diphenhydrAMINE [Benadryl CAP] 25 mg PO Q8HR PRN 12/19/19 01/13/20 01/03/20 21:00 History labetaloL [Labetalol 100mg TAB] 100 mg PO Q8H #90 tablet 12/21/19 01/13/20 01/02/20 10:00 Rx traMADoL [Ultram 50 MG tab] 50 mg PO Q6HR PRN #20 tablet 12/29/19 01/13/20 12/31/19 10:00 Rx DULoxetine [Cymbalta] 30 mg PO QDAY #30 capsule 01/04/20 01/13/20 Unknown Rx Valsartan [Diovan] 80 mg PO DAILY #30 tablet 01/04/20 01/13/20 Unknown Rx Active Medications: Generic Name Dose Route Start Last Admin Trade Name Freq PRN Reason Stop Dose Admin Acetaminophen 650 mg 01/09/20 16:33 01/27/20 12:26 Tylenol PO 650 mg Q4H PRN Administration Pain MILD(1-3)/Fever >100.5/MEANS Lipase/Protease/Amylase 1 each 01/23/20 14:28 Pancreestrella Albarran 10,500 Unit FEEDTUBE PRN PRN For Clogged Feeding Tube Atorvastatin Calcium 40 mg 01/09/20 22:00 01/28/20 21:12 Lipitor PO 40 mg QHS PHILLY Administration Cyclobenzaprine HCl 5 mg 01/09/20 16:27 01/10/20 23:17 Flexeril PO 5 mg QHS PRN Administration Muscle Spasm Dextrose 50 ml 01/23/20 07:26 01/24/20 18:29 D50w (25gm) Syringe IV 50 ml Q30MIN PRN Administration BLOOD GLUCOSE < 70 Dextrose 25 ml 01/24/20 08:58 01/24/20 13:41 D50w (25gm) Syringe IV 25 ml Q4H PRN Administration BG < 80 MG/DL Diphenhydramine HCl 25 mg 01/09/20 16:15 01/12/20 00:50 Benadryl PO 25 mg Q8HR PRN Administration Itching Docusate Sodium 100 mg 01/25/20 22:00 01/29/20 09:51 Colace PO Not Given BID PHILLY Duloxetine HCl 30 mg 01/09/20 17:00 01/29/20 09:49 Cymbalta PO 30 mg QDAY PHILLY Administration Enoxaparin Sodium 80 mg 01/23/20 12:00 01/29/20 09:49 Enoxaparin SUB-Q 80 mg Q24HR PHILLY Administration Famotidine 20 mg 01/09/20 22:00 01/29/20 09:49 Pepcid PO 20 mg DAILY PHILLY Administration Fentanyl 50 mcg 01/23/20 15:36 01/23/20 15:54 Sublimaze IV 50 mcg Q10MIN PRN Administration ANALGESIA Norepinephrine 4 mg in 250 mls @ 7.5 mls/hr 01/21/20 18:00 01/28/20 14:00 Levophed Drip 4 Mg/Ns 250 Ml IV 0 mcg/min TITR PHILLY 0 mls/hr Titration Protocol 2 MCG/MIN Propofol 1,000 mg in 100 mls @ 2.265 mls/hr 01/22/20 09:00 01/29/20 16:12 Diprivan 10 Mg/Ml IV 15 mcg/kg/min TITR PHILLY 6.795 mls/hr Administration Protocol 5 MCG/KG/MIN Fentanyl Citrate 2,000 mcg in 100 mls @ 3.775 mls/hr 01/23/20 16:00 01/24/20 01:32 Fentanyl Drip Premix IV 0 mcg/kg/hr TITR PHILLY 0 mls/hr Titration Protocol 1 MCG/KG/HR Lorazepam 100 mg/ Sodium 100 mls @ 1 mls/hr 01/23/20 16:00 Chloride/ Miscellaneous IV Information TITR PHILLY Protocol 1 MG/HR Sodium Chloride 100 mls @ 999 mls/hr 01/26/20 07:54 Nacl 0.9% IV SILVERIO PRN Hypotension Lorazepam 2 mg 01/23/20 15:36 Ativan IV Q10MIN PRN Agitation Ondansetron HCl 4 mg 01/09/20 16:33 01/20/20 10:19 Zofran IV 4 mg Q8H PRN Administration Nausea And Vomiting Simple Syrup 15 ml 01/23/20 14:28 Simple Syrup FEEDTUBE PRN PRN Hypoglycemia Simple Syrup 30 ml 01/23/20 14:28 Simple Syrup FEEDTUBE PRN PRN Hypoglycemia Sodium Bicarbonate 325 mg 01/23/20 14:28 Sodium Bicarbonate FEEDTUBE PRN PRN For Clogged Feeding Tube Sodium Chloride 10 ml 01/09/20 22:00 01/29/20 09:51 Sodium Chloride Flush Syringe 10 Ml IV 10 ml BID PHILLY Administration Sodium Chloride 10 ml 01/09/20 16:33 Sodium Chloride Flush Syringe 10 Ml IV PRN PRN LINE FLUSH Tramadol HCl 50 mg 01/16/20 13:07 01/20/20 10:19 Ultram PO 50 mg Q12HR PRN Administration Pain, Moderate (4-6) Valsartan 80 mg 01/10/20 10:00 01/29/20 09:50 Diovan PO 80 mg DAILY PHILLY Administration
[2020-01-30 05:03] LABS: ABG Base Excess 1.8 mmol/L (-2.0-3.0); ABG HCO3 29.7 mmol/L (20.0-26.0); ABG Methemoglobin 0.6 % (0.0-1.5); ABG Oxygen Saturation 90.1 % (95.0-99.0); ABG PCO2 68.8 mm Hg; ABG PH 7.253 pH Units (7.350-7.450); ABG PO2 61.8 mm Hg (80.0-90.0)
[2020-01-30] MEDS ORDERED: SODIUM CHLORIDE 0.9% 1000 ML 2,000 ML ONE (10:19)
--- NOTE | 2020-01-30 11:04 | Progress Note ---
Assessment and Plan Assessment and plan: Suspected COVID- 19 Patient with very elevated inflammatory markers of ferritin, CRP, LDH and d- dimer. Bilateral pneumonia. Continue antibiotics per ID ARDS. Etiology secondary to above. Acute hypoxemic respiratory failure. Continue oxygen to maintain sats greater than 92% Appears stable on HFNC; wean FiO2 then flow Chest pain Stress test neg for ischemia GERD and costochondritis in differential diagnosis Volume overload s/p hemodialysis Nephrology consulted,following Acute on Chronic diastolic CHF exacerbation Secondary to volume overload End stage renal disease on dialysis Nephrology following T2DM (type 2 diabetes mellitus) Continue continue coverage Check hemoglobin A1c Hypertension Continue antihypertensives Hyponatremia Secondary to increased volume--dilutional DVT prophylaxis On heparin and GI prophylaxis 01/11 Covid 19 survey testing sent, nasal swab done 01/10 01/12 Patient has acute resp failure. may need Oxygen on dc. awaiting Covid result 01/13 Still has shortness of breath, awaiting Covid test. 01/14 Pt still dyspneic, await covid testing, Pulse ox 83% 01/16/2020. Patient remains dyspneic. Follow-up COVID testing. 01/17/2020. Patient still requiring large amounts of oxygen. Patient currently with 15 L satting at 95%. Patient with increased inflammatory markers. Follow- up chest x-ray today. 01/18/20--Patient still requiring large amounts of oxygen. Patient currently with 15 L %. Patient with increased inflammatory markers. 01/19/2020 very elevated inflammatory markers- ferritin> 2000, CRP >24, LDH> 600, d-dimer >1000 putting her at high risk for ARDS. Continue hydroxychloroquine 400 mg PO BID for 1 day then 200 mg PO BID for 4 days (total 5 days) with zinc 220 mg PO qday. Continue ceftriaxone. ContinueCOVID [facility]precautions pe [facility]. Continue serial Ferritin, LDH, D-Dimer, CRP every 48h 01/20/2020. Inflammatory markers remain elevated with ferritin 1826, LDH 496, CRP 19.3, and d-dimer 2072. Patient requiring high flow nasal cannula 40L, FiO2 80%. Pulmonary following. Continue antibiotics and Plaquenil. Continue COVID isolationprecautions per [facility] protocol. Patient has a high risk mortality and remains guarded. 01/21/2020. Continue antibiotics and Plaquenil. Continue COVID isolationprecautions per [facility] protocol. Maintain sats of 88% and greater. Still on HFNC, O2 weaned to 95% overnight. Sats documented at 98%. Pulmonary following and reports If patient progresses could give bipap a one hour trial to see if there is improvement, repeat ABG, if not would suggest elective intubation 01/22/2020 Patient still critically ill. Yesterday 01/20 had cardiopulmonary arrest so now intubated in ICU. Prognosis guarded. 01/23/2020 still critically ill. No more fever. Continue vent management. 01/24/20 Still critically ill, remain on vent. Continue current management. Will call . 01/25/20 Patient still critically ill. I called Davis Hernandez and gave update. He wants DNR status and says he will request withdrawal of care if patient does not get better after weekend. I discussed with Rotor Winder. 01/26/20 patient still intubated, on vent. She means a DNR order. Discussed with Nurse 01/26 patient still critically ill, vent dependent. 01/27 patient still intubated, on vent. On levophed to keep MAP>65mmhg 01/29/2020 patient still intubated on mechanical ventilation. AC mode ventila tion with rate 20, tidal volume 400, FiO2 45% and PEEP 12. patient with no fever. Patient currently with sedation of propofol. Patient received hemodialysis yesterday with approximately 3 L removed. 01/30/2020. Patient still on mechanical ventilation. AC mode ventilation with rate 20, tidal volume 400, FiO2 45% and PEEP 8. Patient with elevated alkaline phosphatase. Check abdominal ultrasound. The high probability of a clinically significant, sudden or life threatening deterioration of the [immunologic and respiratory] system(s) required my full and direct attention, intervention and personal management. The aggregate critical care time was [32] minutes. This time is in addition to time spent performing reported procedures but includes the following: [x] Data Review and interpretation [x] Patient assessment and monitoring of vital signs [x] Documentation [x] Medication orders and management History Interval history: Patient on mechanical ventilation. PUI?: Yes COVID19: Positive Hospitalist Physical - Constitutional Vitals: Temp Pulse Resp BP Pulse Ox 98.8 F 819 H 25 H 104/55 92 01/30/20 09:10 01/30/20 10:15 01/30/20 09:10 01/30/20 10:15 01/30/20 09:10 General appearance: Present: no acute distress - EENT Eyes: Present: PERRL, EOM intact ENT: hearing intact, clear oral mucosa, dentition normal - Neck Neck: Present: supple, normal ROM - Respiratory Respiratory effort: normal Respiratory: bilateral: CTA - Cardiovascular Rhythm: regular Heart Sounds: Present: S1 & S2. Absent: gallop, rub - Extremities Extremities: no ischemia, No edema, Full ROM - Abdominal General gastrointestinal: soft, non-tender, non-distended, normal bowel sounds - Integumentary Integumentary: Present: clear, warm, dry - Neurologic Neurologic: CNII-XII intact, moves all extremities BREEZY score - Breezy Score Age > 65: (1) Yes Aspirin use within the Past 7 Days: (1) Yes 3 or more CAD Risk Factors: (1) Yes 2 or more Angina events in past 24 hrs: (1) Yes Known CAD with more than 50% Stenosis: (0) No Elevated Cardiac Markers: (0) No ST Deviation Greater than 0.5mm: (0) No BREEZY Score: 4 Results - Labs CBC & Chem 7: 01/29/20 04:00 01/29/20 04:00 Labs: Laboratory Last Values WBC 12.6 K/mm3 (4.5-11.0) H 01/29/20 04:00 RBC 3.01 M/mm3 (3.65-5.03) L 01/29/20 04:00 Hgb 9.2 gm/dl (10.1-14.3) L 01/29/20 04:00 Hct 29.3 % (30.3-42.9) L 01/29/20 04:00 MCV 98 fl (79-97) H 01/29/20 04:00 MCH 31 pg (28-32) 01/29/20 04:00 MCHC 31 % (30-34) 01/29/20 04:00 RDW 18.1 % (13.2-15.2) H 01/29/20 04:00 Plt Count 275 K/mm3 (140-440) 01/29/20 04:00 Lymph % (Auto) 3.8 % (13.4-35.0) L 01/18/20 06:25 [place] % (Auto) 6.5 % (0.0-7.3) 01/18/20 06:25 Eos % (Auto) 0.8 % (0.0-4.3) 01/18/20 06:25 Baso % (Auto) 0.1 % (0.0-1.8) 01/18/20 06:25 Lymph # 0.2 K/mm3 (1.2-5.4) L 01/18/20 06:25 [place]linger # 0.4 K/mm3 (0.0-0.8) 01/18/20 06:25 Eos # 0.0 K/mm3 (0.0-0.4) 01/18/20 06:25 Baso # 0.0 K/mm3 (0.0-0.1) 01/18/20 06:25 Add Manual Diff Complete 01/25/20 03:50 Total Counted 100 01/25/20 03:50 Seg Neutrophils % Scraper Tender 01/25/20 03:50 Seg Neuts % (Manual) 92.0 % (40.0-70.0) H 01/25/20 03:50 Band Neutrophils % 0 % 01/25/20 03:50 Lymphocytes % (Manual) 5.0 % (13.4-35.0) L 01/25/20 03:50 Reactive Lymphs % (Man) 0 % 01/25/20 03:50 Monocytes % (Manual) 2.0 % (0.0-7.3) 01/25/20 03:50 Eosinophils % (Manual) 1.0 % (0.0-4.3) 01/25/20 03:50 Basophils % (Manual) 0 % (0.0-1.8) 01/25/20 03:50 Metamyelocytes % 0 % 01/25/20 03:50 Myelocytes % 0 % 01/25/20 03:50 Promyelocytes % 0 % 01/25/20 03:50 Blast Cells % 0 % 01/25/20 03:50 Nucleated RBC % Not Reportable 01/25/20 03:50 Seg Neutrophils # 5.0 K/mm3 (1.8-7.7) 01/18/20 06:25 Seg Neutrophils # Man 12.0 K/mm3 (1.8-7.7) H 01/25/20 03:50 Band Neutrophils # 0.0 K/mm3 01/25/20 03:50 Lymphocytes # (Manual) 0.7 K/mm3 (1.2-5.4) L 01/25/20 03:50 Abs React Lymphs (Man) 0.0 K/mm3 01/25/20 03:50 Monocytes # (Manual) 0.3 K/mm3 (0.0-0.8) 01/25/20 03:50 Eosinophils # (Manual) 0.1 K/mm3 (0.0-0.4) 01/25/20 03:50 Basophils # (Manual) 0.0 K/mm3 (0.0-0.1) 01/25/20 03:50 Metamyelocytes # 0.0 K/mm3 01/25/20 03:50 Myelocytes # 0.0 K/mm3 01/25/20 03:50 Promyelocytes # 0.0 K/mm3 01/25/20 03:50 Blast Cells # 0.0 K/mm3 01/25/20 03:50 WBC Morphology Not Reportable 01/25/20 03:50 Hypersegmented Neuts Not Reportable 01/25/20 03:50 Hyposegmented Neuts Not Reportable 01/25/20 03:50 Hypogranular Neuts Not Reportable 01/25/20 03:50 Smudge Cells Not Reportable 01/25/20 03:50 Toxic Granulation Not Reportable 01/25/20 03:50 Toxic Vacuolation Not Reportable 01/25/20 03:50 Dohle Bodies Not Reportable 01/25/20 03:50 Pelger-Huet Anomaly Not Reportable 01/25/20 03:50 Armando Rods Not Reportable 01/25/20 03:50 Platelet Estimate Consistent w auto 01/25/20 03:50 Clumped Platelets Not Reportable 01/25/20 03:50 Plt Clumps, EDTA Not Reportable 01/25/20 03:50 Large Platelets Not Reportable 01/25/20 03:50 Giant Platelets Not Reportable 01/25/20 03:50 Platelet Satelliting Not Reportable 01/25/20 03:50 Plt Morphology Comment Not Reportable 01/25/20 03:50 RBC Morphology Not Reportable 01/25/20 03:50 Dimorphic RBCs Not Reportable 01/25/20 03:50 Polychromasia Not Reportable 01/25/20 03:50 Hypochromasia Not Reportable 01/25/20 03:50 Poikilocytosis Not Reportable 01/25/20 03:50 Anisocytosis 1+ 01/25/20 03:50 Microcytosis Not Reportable 01/25/20 03:50 Macrocytosis Not Reportable 01/25/20 03:50 Spherocytes Not Reportable 01/25/20 03:50 Pappenheimer Bodies Not Reportable 01/25/20 03:50 Sickle Cells Not Reportable 01/25/20 03:50 Target Cells Not Reportable 01/25/20 03:50 Tear Drop Cells Not Reportable 01/25/20 03:50 Ovalocytes Not Reportable 01/25/20 03:50 Helmet Cells Not Reportable 01/25/20 03:50 [place] Bodies Not Reportable 01/25/20 03:50 [place] Rings Not Reportable 01/25/20 03:50 Karen Cells Not Reportable 01/25/20 03:50 Bite Cells Not Reportable 01/25/20 03:50 Crenated Cell Not Reportable 01/25/20 03:50 Elliptocytes Not Reportable 01/25/20 03:50 Acanthocytes (Spur) Not Reportable 01/25/20 03:50 Rouleaux Not Reportable 01/25/20 03:50 Hemoglobin C Crystals Not Reportable 01/25/20 03:50 Schistocytes Not Reportable 01/25/20 03:50 Malaria parasites Not Reportable 01/25/20 03:50 Ney Bodies Not Reportable 01/25/20 03:50 Hem Pathologist Commnt No 01/25/20 03:50 PT 15.6 Sec. (12.2-14.9) H 01/09/20 12:55 INR 1.22 (0.87-1.13) H 01/09/20 12:55 APTT 31.5 Sec. (24.2-36.6) 01/09/20 12:55 D-Dimer 2379 ng/mlDDU (0-234) H 01/28/20 04:34 Heparin Anti-Xa Level < 0.10 U.I./ml (0.3-0.7) L 01/23/20 Unknown ABG pH 7.253 pH Units (7.350-7.450) L 01/30/20 04:25 ABG pCO2 68.8 mm Hg 01/30/20 04:25 ABG pO2 61.8 mm Hg (80.0-90.0) L 01/30/20 04:25 ABG HCO3 29.7 mmol/L (20.0-26.0) H 01/30/20 04:25 ABG O2 Saturation 90.1 % (95.0-99.0) L 01/30/20 04:25 ABG O2 Content 10.1 (0.0-44) 01/30/20 04:25 ABG Base Excess 1.8 mmol/L (-2.0-3.0) 01/30/20 04:25 ABG Hemoglobin 8.2 gm/dl (12.0-16.0) L 01/30/20 04:25 ABG Carboxyhemoglobin 2.3 % (0.0-5.0) 01/30/20 04:25 ABG Methemoglobin 0.6 % (0.0-1.5) 01/30/20 04:25 Oxyhemoglobin 87.5 % (95.0-99.0) L 01/30/20 04:25 FiO2 45 % 01/30/20 04:25 Sodium 132 mmol/L (137-145) L 01/29/20 04:00 Potassium 4.4 mmol/L (3.6-5.0) 01/29/20 04:00 Chloride 90.1 mmol/L (98-107) L 01/29/20 04:00 Carbon Dioxide 22 mmol/L (22-30) 01/29/20 04:00 Anion Gap 24 mmol/L 01/29/20 04:00 BUN 50 mg/dL (7-17) H 01/29/20 04:00 Creatinine 3.7 mg/dL (0.7-1.2) H 01/29/20 04:00 Estimated GFR 15 ml/min 01/29/20 04:00 BUN/Creatinine Ratio 14 % 01/29/20 04:00 Glucose 184 mg/dL (65-100) H 01/29/20 04:00 POC Glucose 144 (70-105) H 01/29/20 23:38 Hemoglobin A1c 5.0 % (4-6) 01/10/20 06:54 Calcium 8.9 mg/dL (8.4-10.2) 01/29/20 04:00 Phosphorus 3.30 mg/dL (2.5-4.5) 01/12/20 16:01 Magnesium 2.00 mg/dL (1.7-2.3) 01/13/20 06:11 Ferritin > 2000.0 ng/mL (13.0-400.0) H 01/28/20 04:34 Total Bilirubin 0.40 mg/dL (0.1-1.2) 01/29/20 04:00 AST 93 units/L (5-40) H 01/29/20 04:00 ALT 54 units/L (7-56) 01/29/20 04:00 Alkaline Phosphatase 678 units/L (35-129) H 01/29/20 04:00 Lactate Dehydrogenase 434 units/L (91-180) H 01/28/20 04:34 Troponin T 0.315 ng/mL (0.00-0.029) H* 01/10/20 06:54 C-Reactive Protein 9.70 mg/dL (0.00-1.30) H 01/28/20 04:34 NT-Pro-B Natriuret Pep 88971 pg/mL (0-900) H 01/09/20 12:55 Total Protein 7.5 g/dL (6.3-8.2) 01/29/20 04:00 Albumin 1.7 g/dL (3.9-5) L 01/29/20 04:00 Albumin/Globulin Ratio 0.3 % 01/29/20 04:00 Triglycerides 56 mg/dL (2-149) 01/30/20 04:04 Cholesterol 123 mg/dL (50-199) 01/09/20 12:55 LDL Cholesterol Direct 66 mg/dL (50-130) 01/09/20 12:55 HDL Cholesterol 47 mg/dL (40-59) 01/09/20 12:55 Cholesterol/HDL Ratio 2.61 % 01/09/20 12:55 Hepatitis A IgM Ab Non-reactive (NonReactive) 01/21/20 23:40 Hep Bs Antigen Non-reactive (Negative) 01/21/20 23:40 Hep B Core IgM Ab Non-reactive (NonReactive) 01/21/20 23:40 Hepatitis C Antibody Non-reactive (NonReactive) 01/21/20 23:40 Miscellaneous Test See scanned result 01/11/20 Unknown Miscellaneous Test See scanned result 01/11/20 Unknown Microbiology: Microbiology 01/25/20 Unknown Peripheral/Venous Blood Culture - Preliminary NO GROWTH AFTER 4 DAYS 01/25/20 Unknown Peripheral/Venous Blood Culture - Preliminary NO GROWTH AFTER 4 DAYS Pleitez/IV: Voiding Method Toilet IV Catheter Type [Left Chest] Infusaport IV Catheter Type [Right Peripheral IV External Jugular] IV Catheter Type [Left INT / Saline Lock External Jugular] IV Catheter Type [Left Upper IVAD / Port arm] Active Medications - Current Medications Current Medications: Generic Name Dose Route Start Last Admin Trade Name Freq PRN Reason Stop Dose Admin Acetaminophen 650 mg 01/09/20 16:33 01/27/20 12:26 Tylenol PO 650 mg Q4H PRN Administration Pain MILD(1-3)/Fever >100.5/MEANS Lipase/Protease/Amylase 1 each 01/23/20 14:[address] 10,500 Unit FEEDTUBE PRN PRN For Clogged Feeding Tube Atorvastatin Calcium 40 mg 01/09/20 22:00 01/29/20 21:11 Lipitor PO 40 mg QHS PHILLY Administration Cyclobenzaprine HCl 5 mg 01/09/20 16:27 01/10/20 23:17 Flexeril PO 5 mg QHS PRN Administration Muscle Spasm Dextrose 50 ml 01/23/20 07:26 01/24/20 18:29 D50w (25gm) Syringe IV 50 ml Q30MIN PRN Administration BLOOD GLUCOSE < 70 Dextrose 25 ml 01/24/20 08:58 01/24/20 13:41 D50w (25gm) Syringe IV 25 ml Q4H PRN Administration BG < 80 MG/DL Diphenhydramine HCl 25 mg 01/09/20 16:15 01/12/20 00:50 Benadryl PO 25 mg Q8HR PRN Administration Itching Docusate Sodium 100 mg 01/25/20 22:00 01/29/20 21:12 Colace PO Not Given BID PHILLY Duloxetine HCl 30 mg 01/09/20 17:00 01/29/20 09:49 Cymbalta PO 30 mg QDAY PHILLY Administration Enoxaparin Sodium 80 mg 01/23/20 12:00 01/29/20 09:49 Enoxaparin SUB-Q 80 mg Q24HR PHILLY Administration Famotidine 20 mg 01/09/20 22:00 01/29/20 09:49 Pepcid PO 20 mg DAILY PHILLY Administration Fentanyl 50 mcg 01/23/20 15:36 01/23/20 15:54 Sublimaze IV 50 mcg Q10MIN PRN Administration ANALGESIA Norepinephrine 4 mg in 250 mls @ 7.5 mls/hr 01/21/20 18:00 01/28/20 14:00 Levophed Drip 4 Mg/Ns 250 Ml IV 0 mcg/min TITR PHILLY 0 mls/hr Titration Protocol 2 MCG/MIN Propofol 1,000 mg in 100 mls @ 2.265 mls/hr 01/22/20 09:00 01/30/20 07:10 Diprivan 10 Mg/Ml IV 15 mcg/kg/min TITR PHILLY 6.795 mls/hr Administration Protocol 5 MCG/KG/MIN Fentanyl Citrate 2,000 mcg in 100 mls @ 3.775 mls/hr 01/23/20 16:00 01/24/20 01:32 Fentanyl Drip Premix IV 0 mcg/kg/hr TITR PHILLY 0 mls/hr Titration Protocol 1 MCG/KG/HR Lorazepam 100 mg/ Sodium 100 mls @ 1 mls/hr 01/23/20 16:00 Chloride/ Miscellaneous IV Information TITR PHILLY Protocol 1 MG/HR Sodium Chloride 100 mls @ 999 mls/hr 01/26/20 07:54 01/30/20 10:22 Nacl 0.9% IV 999 mls/hr SILVERIO PRN Administration Hypotension Lorazepam 2 mg 01/23/20 15:36 Ativan IV Q10MIN PRN Agitation Ondansetron HCl 4 mg 01/09/20 16:33 01/20/20 10:19 Zofran IV 4 mg Q8H PRN Administration Nausea And Vomiting Simple Syrup 15 ml 01/23/20 14:28 Simple Syrup FEEDTUBE PRN PRN Hypoglycemia Simple Syrup 30 ml 01/23/20 14:28 Simple Syrup FEEDTUBE PRN PRN Hypoglycemia Sodium Bicarbonate 325 mg 01/23/20 14:28 Sodium Bicarbonate FEEDTUBE PRN PRN For Clogged Feeding Tube Sodium Chloride 10 ml 01/09/20 22:00 01/29/20 21:12 Sodium Chloride Flush Syringe 10 Ml IV 10 ml BID PHILLY Administration Sodium Chloride 10 ml 01/09/20 16:33 Sodium Chloride Flush Syringe 10 Ml IV PRN PRN LINE FLUSH Tramadol HCl 50 mg 01/16/20 13:07 01/20/20 10:19 Ultram PO 50 mg Q12HR PRN Administration Pain, Moderate (4-6) Valsartan 80 mg 01/10/20 10:00 01/29/20 09:50 Diovan PO 80 mg DAILY PHILLY Administration Nutrition/Malnutrition Assess - Dietary Evaluation Nutrition/Malnutrition Findings: Nutrition Notes Start: 01/17/20 13:49 Freq: Status: Active Protocol: Document 01/29/20 08:55 LP (Rec: 01/29/20 08:58 LP [id number]) Nutrition Notes Initial or Follow up Reassessment Current Diagnosis CKD (stage V CKD),Diabetes, Hypertension,Heart Failure, Respiratory Failure Other Pertinent Diagnosis on HD, Bilat pneu, COVID-19 (+ ) Current Diet Nepro 1.8 at 35ml/hr Labs/Tests Na 132 K 44 BUN 50 Cr 3.7 BG 184 Pertinent Medications Propofol at 6.79 Height 5 ft 6 in Weight 78 kg [place] Body Weight (kg) 59.09 BMI 27.7 Weight Status Overweight Subjective/Other Information Nepro continue at goal rate and tolerating. Percent of energy/protein needs met: 95%/75% Burn Absent Trauma Absent Current % PO Negligible Minimum of two criteria Yes Interpretation of Weight Loss (non- 5% in 1 month severe) Fluid Accumulation Mild (non-severe) Reduced Project Scientist Strength Measurably Reduced (severe) #1 Nutrition Diagnosis Malnutrition Diagnosis Progress(for reassessment Continues documentation) Is patient on ventilator? No Is Patient Ambulatory and/or Out of Bed No REE-(Mart-St Jeor-confined to bed) 1385.325 Calculation [facility]ations [facility] Additional Notes Protein: 91-151g (1.2-2g/kg) Fluid: per MD Nutrition Intervention Change Diet Order: Continue TF Nutrition Support: Nepro 1.8 at 35ml/hr (goal rate) Flush 150ml q4h Kcal 1,512 Protein (gm) 68 Fluid (mL) 611 Goal #1 TF tolerance Goal #2 Meet at least 75% of energy and protein needs via TF Anticipated Discharge Needs: unable to determine at this time Follow-Up By: 01/31/20 Additional Comments Follow for TF tolerance
--- NOTE | 2020-01-30 11:11 | Progress Note ---
Assessment and Plan Cultures: 01/10/2020 blood culture: No growth 01/21/2020 sputum culture: No growth 01/25/2020 blood culture: No growth A/P: #Sepsis with shock: likely due to severe COVID pneumonia. Completed empiric Cefepime x 5 days. #Severe COVID pneumonia: very elevated inflammatory markers. S/p ivermectin x 1 on 01/21/2020 (off label use). S/p hydroxychloroquine with zinc x 5 days. #Acute hypoxic resp failure: intubated, on the vent #ESRD on HD #Thrombocytopenia: resolved #Elevated LFTs Recs: continue supportive care, ventilatory support monitor LFTs, if alk phos, continues to rise, may need to image abdomen CBC, CMP ordered for AM Slava Hannon MD, FACP [facility] ([facility] C: [phone] O: [phone] F: [phone] Subjective Date of service: 01/30/20 Principal diagnosis: Pneumonia Interval history: Afebrile. Remains intubated, sedated. Getting dialysis. PUI?: Yes COVID19: Positive Objective - Exam Narrative Exam: Physical Exam (reviewed in chart due to PPE conservation) Constitutional: intubated, sedated, on the vent Head, Ears, Nose: normocephalic, atraumatic Eyes: limited due to PPE conservation strategy Neck: intubated Oral: intubated Cardiovascular: limited due to PPE conservation strategy Respiratory: limited due to PPE conservation strategy GI: limited due to PPE conservation strategy Musculoskeletal: limited due to PPE conservation strategy Skin: limited due to PPE conservation strategy Hem/Lymphatic: limited due to PPE conservation strategy Psych: no agitation Neurological: sedated, intubated, on the vent, exam limited. - Constitutional Vitals: Vital Signs Temp Pulse Resp BP Pulse Ox 98.8 F 819 H 25 H 104/55 92 01/30/20 09:10 01/30/20 10:15 01/30/20 09:10 01/30/20 10:15 01/30/20 09:10 Temperature -Last 24 Hours Temperature 98.8 F Temperature 99.4 F Temperature 99.1 F Temperature 99.1 F Temperature 98.6 F - Labs CBC & Chem 7: 01/29/20 04:00 01/29/20 04:00 Labs: Abnormal lab results 01/29/20 01/29/20 01/29/20 Range/Units 11:53 16:44 23:38 ABG pH (7.350-7.450) pH Units ABG pO2 (80.0-90.0) mm Hg ABG HCO3 (20.0-26.0) mmol/L ABG O2 Saturation (95.0-99.0) % ABG Hemoglobin (12.0-16.0) gm/dl Oxyhemoglobin (95.0-99.0) % POC Glucose 193 H 174 H 144 H (70-105) 01/30/20 Range/Units 04:25 ABG pH 7.253 L (7.350-7.450) pH Units ABG pO2 61.8 L (80.0-90.0) mm Hg ABG HCO3 29.7 H (20.0-26.0) mmol/L ABG O2 Saturation 90.1 L (95.0-99.0) % ABG Hemoglobin 8.2 L (12.0-16.0) gm/dl Oxyhemoglobin 87.5 L (95.0-99.0) % POC Glucose (70-105)
--- NOTE | 2020-01-30 11:53 | Progress Note ---
Assessment and Plan 64 y/o female with COVID positive, viral pneumonia with some pulmonary vascular congestion superimposed. 1. Continue to wean FiO2 for sats >88%. Will attempt to get to as low as 40% today and then start to wean PEEP. May even consider PSV trials as early as tomorrow. 2. HD per renal. UF is definitely helping as changes can be seen in CXR. Repeat on , will do after HD session today. Had a meeting with radiology and will try to not order as many films as necessary. 3. Changed back to prophylactic dosing for VTE as not confirmed the presence of VTE 4. Overall prognosis is guarded to poor, especially with prior history of ESRD on HD. Continue supportive care. IMS spoke with who has made patient a DNR. I have signed. Hopeful she can pull through but do agree with DNR status given evidence of increased mortality throughout [place] from this novel [place] virus. Spoke with IMS again as they will speak with today. Hopeful he will continue as she has made improvements CCT 31 minutes. Subjective Date of service: 01/30/20 Principal diagnosis: Pneumonia Interval history: No acute events. Getting HD right now. Down to 8 of PEEP and 45%. PaO2 this am was 61. PUI?: Yes COVID19: Positive Objective Vital Signs - 12hr 01/30/20 01/30/20 01/30/20 00:00 00:01 00:03 Temperature Pulse Rate 89 88 Pulse Rate [ 86 From Monitor] Respiratory 22 24 Rate Blood Pressure 118/46 118/46 O2 Sat by Pulse 92 91 92 Oximetry O2 Sat by Pulse Oximetry [ Posterior Bilateral Throughout] 01/30/20 01/30/20 01/30/20 00:05 00:43 01:00 Temperature 99.1 F Pulse Rate 86 88 Pulse Rate [ From Monitor] Respiratory 23 Rate Blood Pressure 118/46 O2 Sat by Pulse 93 Oximetry O2 Sat by Pulse Oximetry [ Posterior Bilateral Throughout] 01/30/20 01/30/20 01/30/20 02:00 03:01 04:00 Temperature Pulse Rate 87 86 85 Pulse Rate [ From Monitor] Respiratory 20 22 Rate Blood Pressure 122/47 125/46 O2 Sat by Pulse 90 90 Oximetry O2 Sat by Pulse Oximetry [ Posterior Bilateral Throughout] 01/30/20 01/30/20 01/30/20 04:01 04:08 04:19 Temperature 99.4 F Pulse Rate 87 86 Pulse Rate [ From Monitor] Respiratory 25 H Rate Blood Pressure 121/46 121/46 O2 Sat by Pulse 91 92 Oximetry O2 Sat by Pulse Oximetry [ Posterior Bilateral Throughout] 01/30/20 01/30/20 01/30/20 05:00 05:08 06:01 Temperature Pulse Rate 90 85 Pulse Rate [ 85 From Monitor] Respiratory 24 30 H 25 H Rate Blood Pressure 117/58 124/59 O2 Sat by Pulse 90 91 92 Oximetry O2 Sat by Pulse Oximetry [ Posterior Bilateral Throughout] 01/30/20 01/30/20 01/30/20 07:00 08:00 08:13 Temperature Pulse Rate 87 89 87 Pulse Rate [ From Monitor] Respiratory 22 25 H Rate Blood Pressure 125/59 126/60 126/60 O2 Sat by Pulse 91 91 94 Oximetry O2 Sat by Pulse Oximetry [ Posterior Bilateral Throughout] 01/30/20 01/30/20 01/30/20 09:01 09:10 09:15 Temperature 98.8 F Pulse Rate 89 86 86 Pulse Rate [ From Monitor] Respiratory 26 H 25 H Rate Blood Pressure 129/58 127/61 121/58 O2 Sat by Pulse 91 Oximetry O2 Sat by Pulse 92 Oximetry [ Posterior Bilateral Throughout] 01/30/20 01/30/20 01/30/20 09:30 09:45 10:00 Temperature Pulse Rate 87 88 88 Pulse Rate [ From Monitor] Respiratory 24 Rate Blood Pressure 118/57 93/44 102/53 O2 Sat by Pulse 89 Oximetry O2 Sat by Pulse Oximetry [ Posterior Bilateral Throughout] 01/30/20 01/30/20 01/30/20 10:15 11:00 11:40 Temperature Pulse Rate 819 H 85 86 Pulse Rate [ From Monitor] Respiratory 20 Rate Blood Pressure 104/55 98/49 100/50 O2 Sat by Pulse 90 94 Oximetry O2 Sat by Pulse Oximetry [ Posterior Bilateral Throughout] Constitutional: other (orally intubated, not sedated currently on vent) Eyes: non-icteric ENT: oropharynx moist Neck: supple Effort: normal Ascultation: Bilateral: rales Cardiovascular: regular rate and rhythm (no mrg) Gastrointestinal: normoactive bowel sounds, soft, non-tender, non-distended Integumentary: normal Extremities: no cyanosis, no edema, pink and warm Neurologic: normal mental status, non-focal exam, pupils equal and round, CN II- XII normal Psychiatric: mood appropriate, affect normal CBC and BMP: 01/29/20 04:00 01/29/20 04:00 ABG, PT/INR, D-dimer: ABG ABG pH 7.253 pH Units (7.350-7.450) L 01/30/20 04:25 ABG pCO2 68.8 mm Hg 01/30/20 04:25 ABG pO2 61.8 mm Hg (80.0-90.0) L 01/30/20 04:25 ABG O2 Saturation 90.1 % (95.0-99.0) L 01/30/20 04:25 PT/INR, D-dimer PT 15.6 Sec. (12.2-14.9) H 01/09/20 12:55 INR 1.22 (0.87-1.13) H 01/09/20 12:55 D-Dimer 2379 ng/mlDDU (0-234) H 01/28/20 04:34 Abnormal lab findings: Abnormal Labs 01/09/20 01/09/20 01/09/20 12:55 12:55 12:55 WBC 4.4 L RBC 3.44 L Hgb Hct MCV RDW 17.0 H Plt Count Lymph % (Auto) 6.8 L [place] % (Auto) 13.6 H Lymph # 0.3 L Seg Neutrophils % 79.0 H Seg Neuts % (Manual) Lymphocytes % (Manual) Seg Neutrophils # Man Lymphocytes # (Manual) PT 15.6 H INR 1.22 H D-Dimer Heparin Anti-Xa Level ABG pH ABG pO2 ABG HCO3 ABG O2 Saturation ABG Base Excess ABG Hemoglobin Oxyhemoglobin Sodium 130 L Chloride 88.9 L Carbon Dioxide 20 L BUN 41 H Creatinine 7.6 H Glucose 115 H POC Glucose Calcium Magnesium Ferritin AST Alkaline Phosphatase 153 H Lactate Dehydrogenase Troponin T 0.382 H* C-Reactive Protein NT-Pro-B Natriuret Pep 70578 H Total Protein Albumin 3.2 L 01/09/20 01/10/20 01/10/20 20:14 00:16 06:54 WBC 3.3 L RBC 3.00 L Hgb 9.2 L Hct 27.8 L MCV RDW 17.2 H Plt Count Lymph % (Auto) 8.9 L [place] % (Auto) 11.5 H Lymph # 0.3 L Seg Neutrophils % 79.1 H Seg Neuts % (Manual) Lymphocytes % (Manual) Seg Neutrophils # Man Lymphocytes # (Manual) PT INR D-Dimer Heparin Anti-Xa Level ABG pH ABG pO2 ABG HCO3 ABG O2 Saturation ABG Base Excess ABG Hemoglobin Oxyhemoglobin Sodium Chloride Carbon Dioxide BUN Creatinine Glucose POC Glucose Calcium Magnesium Ferritin AST Alkaline Phosphatase Lactate Dehydrogenase Troponin T 0.349 H* 0.328 H* C-Reactive Protein NT-Pro-B Natriuret Pep Total Protein Albumin 01/10/20 01/10/20 01/11/20 06:54 06:54 16:45 WBC RBC Hgb Hct MCV RDW Plt Count Lymph % (Auto) [place] % (Auto) Lymph # Seg Neutrophils % Seg Neuts % (Manual) Lymphocytes % (Manual) Seg Neutrophils # Man Lymphocytes # (Manual) PT INR D-Dimer Heparin Anti-Xa Level ABG pH ABG pO2 ABG HCO3 ABG O2 Saturation ABG Base Excess ABG Hemoglobin Oxyhemoglobin Sodium 133 L Chloride 90.6 L Carbon Dioxide BUN 50 H Creatinine 8.4 H Glucose 101 H POC Glucose 106 H Calcium 8.1 L Magnesium Ferritin AST Alkaline Phosphatase 148 H Lactate Dehydrogenase Troponin T 0.315 H* C-Reactive Protein NT-Pro-B Natriuret Pep Total Protein 5.4 L Albumin 2.7 L 01/12/20 01/13/20 01/13/20 16:01 06:11 06:11 WBC 3.1 L RBC 3.25 L Hgb 9.8 L Hct MCV RDW 17.2 H Plt Count 136 L Lymph % (Auto) [place] % (Auto) Lymph # Seg Neutrophils % Seg Neuts % (Manual) Lymphocytes % (Manual) Seg Neutrophils # Man Lymphocytes # (Manual) PT INR D-Dimer Heparin Anti-Xa Level ABG pH ABG pO2 ABG HCO3 ABG O2 Saturation ABG Base Excess ABG Hemoglobin Oxyhemoglobin Sodium 135 L Chloride 93.4 L Carbon Dioxide BUN 19 H Creatinine 4.5 H Glucose 120 H POC Glucose Calcium 7.8 L Magnesium 1.40 L Ferritin AST Alkaline Phosphatase Lactate Dehydrogenase Troponin T C-Reactive Protein NT-Pro-B Natriuret Pep Total Protein Albumin 01/16/20 01/16/20 01/16/20 08:35 11:49 14:11 WBC RBC Hgb Hct MCV RDW Plt Count Lymph % (Auto) [place] % (Auto) Lymph # Seg Neutrophils % Seg Neuts % (Manual) Lymphocytes % (Manual) Seg Neutrophils # Man Lymphocytes # (Manual) PT INR D-Dimer Heparin Anti-Xa Level ABG pH ABG pO2 48.4 L ABG HCO3 30.5 H ABG O2 Saturation 81.9 L ABG Base Excess 4.6 H ABG Hemoglobin 10.5 L Oxyhemoglobin 80.1 L Sodium Chloride Carbon Dioxide BUN Creatinine Glucose POC Glucose 126 H 119 H Calcium Magnesium Ferritin AST Alkaline Phosphatase Lactate Dehydrogenase Troponin T C-Reactive Protein NT-Pro-B Natriuret Pep Total Protein Albumin 01/16/20 01/16/20 01/16/20 15:38 15:38 15:38 WBC RBC Hgb Hct MCV RDW Plt Count Lymph % (Auto) [place] % (Auto) Lymph # Seg Neutrophils % Seg Neuts % (Manual) Lymphocytes % (Manual) Seg Neutrophils # Man Lymphocytes # (Manual) PT INR D-Dimer 1104.64 H Heparin Anti-Xa Level ABG pH ABG pO2 ABG HCO3 ABG O2 Saturation ABG Base Excess ABG Hemoglobin Oxyhemoglobin Sodium Chloride Carbon Dioxide BUN Creatinine Glucose POC Glucose Calcium Magnesium Ferritin > 2000.0 H AST Alkaline Phosphatase Lactate Dehydrogenase 690 H Troponin T C-Reactive Protein 24.10 H NT-Pro-B Natriuret Pep Total Protein Albumin 01/16/20 01/18/20 01/18/20 18:11 06:25 06:25 WBC RBC 3.15 L Hgb 9.4 L Hct 29.4 L MCV RDW 17.5 H Plt Count 135 L Lymph % (Auto) 3.8 L [place] % (Auto) Lymph # 0.2 L Seg Neutrophils % 88.8 H Seg Neuts % (Manual) Lymphocytes % (Manual) Seg Neutrophils # Man Lymphocytes # (Manual) PT INR D-Dimer Heparin Anti-Xa Level ABG pH ABG pO2 ABG HCO3 ABG O2 Saturation ABG Base Excess ABG Hemoglobin Oxyhemoglobin Sodium Chloride 96.8 L Carbon Dioxide BUN 26 H Creatinine 4.2 H Glucose 115 H POC Glucose 130 H Calcium 8.2 L Magnesium Ferritin AST Alkaline Phosphatase Lactate Dehydrogenase 537 H Troponin T C-Reactive Protein 17.10 H NT-Pro-B Natriuret Pep Total Protein Albumin 01/18/20 01/18/20 01/18/20 06:25 06:25 12:15 WBC RBC Hgb Hct MCV RDW Plt Count Lymph % (Auto) [place] % (Auto) Lymph # Seg Neutrophils % Seg Neuts % (Manual) Lymphocytes % (Manual) Seg Neutrophils # Man Lymphocytes # (Manual) PT INR D-Dimer 938.03 H Heparin Anti-Xa Level ABG pH ABG pO2 66.5 L ABG HCO3 30.1 H ABG O2 Saturation 93.2 L ABG Base Excess 4.6 H ABG Hemoglobin 10.0 L Oxyhemoglobin 91.3 L Sodium Chloride Carbon Dioxide BUN Creatinine Glucose POC Glucose Calcium Magnesium Ferritin 3105.0 H AST Alkaline Phosphatase Lactate Dehydrogenase Troponin T C-Reactive Protein NT-Pro-B Natriuret Pep Total Protein Albumin 01/20/20 01/20/20 01/20/20 07:37 07:37 07:37 WBC RBC Hgb Hct MCV RDW Plt Count Lymph % (Auto) [place] % (Auto) Lymph # Seg Neutrophils % Seg Neuts % (Manual) Lymphocytes % (Manual) Seg Neutrophils # Man Lymphocytes # (Manual) PT INR D-Dimer 2072.25 H Heparin Anti-Xa Level ABG pH ABG pO2 ABG HCO3 ABG O2 Saturation ABG Base Excess ABG Hemoglobin Oxyhemoglobin Sodium Chloride Carbon Dioxide BUN Creatinine Glucose POC Glucose Calcium Magnesium Ferritin 1826.0 H AST Alkaline Phosphatase Lactate Dehydrogenase 496 H Troponin T C-Reactive Protein 19.30 H NT-Pro-B Natriuret Pep Total Protein Albumin 01/20/20 01/21/20 01/21/20 17:30 03:59 17:35 WBC RBC Hgb Hct MCV RDW Plt Count Lymph % (Auto) [place] % (Auto) Lymph # Seg Neutrophils % Seg Neuts % (Manual) Lymphocytes % (Manual) Seg Neutrophils # Man Lymphocytes # (Manual) PT INR D-Dimer Heparin Anti-Xa Level ABG pH ABG pO2 61.1 L 67.4 L ABG HCO3 29.9 H 26.2 H ABG O2 Saturation 91.7 L 93.4 L ABG Base Excess 4.9 H ABG Hemoglobin 9.0 L 9.1 L Oxyhemoglobin 89.5 L 91.1 L Sodium 136 L Chloride Carbon Dioxide BUN 36 H Creatinine 4.9 H Glucose POC Glucose Calcium Magnesium Ferritin AST Alkaline Phosphatase Lactate Dehydrogenase Troponin T C-Reactive Protein NT-Pro-B Natriuret Pep Total Protein Albumin 01/21/20 01/22/20 01/22/20 Unknown 03:41 03:41 WBC RBC Hgb Hct MCV RDW Plt Count Lymph % (Auto) [place] % (Auto) Lymph # Seg Neutrophils % Seg Neuts % (Manual) Lymphocytes % (Manual) Seg Neutrophils # Man Lymphocytes # (Manual) PT INR D-Dimer Heparin Anti-Xa Level ABG pH 7.465 H ABG pO2 48.9 L ABG HCO3 26.6 H ABG O2 Saturation 85.7 L ABG Base Excess ABG Hemoglobin 10.4 L Oxyhemoglobin 83.5 L Sodium Chloride Carbon Dioxide BUN Creatinine Glucose POC Glucose Calcium Magnesium Ferritin 6071.0 H AST Alkaline Phosphatase Lactate Dehydrogenase 963 H Troponin T C-Reactive Protein 30.00 H NT-Pro-B Natriuret Pep Total Protein Albumin 01/22/20 01/22/20 01/22/20 03:41 07:47 11:20 WBC RBC Hgb Hct MCV RDW Plt Count Lymph % (Auto) [place] % (Auto) Lymph # Seg Neutrophils % Seg Neuts % (Manual) Lymphocytes % (Manual) Seg Neutrophils # Man Lymphocytes # (Manual) PT INR D-Dimer > 27560 H Heparin Anti-Xa Level ABG pH ABG pO2 66.7 L ABG HCO3 28.7 H ABG O2 Saturation 91.9 L ABG Base Excess ABG Hemoglobin 9.1 L Oxyhemoglobin 89.5 L Sodium Chloride 94.3 L Carbon Dioxide BUN 53 H Creatinine 6.5 H Glucose POC Glucose Calcium Magnesium Ferritin AST Alkaline Phosphatase Lactate Dehydrogenase Troponin T C-Reactive Protein NT-Pro-B Natriuret Pep Total Protein Albumin 01/22/20 01/22/20 01/23/20 11:49 Unknown 04:55 WBC 15.1 H RBC 3.05 L Hgb 8.8 L Hct 28.3 L MCV RDW 17.8 H Plt Count 125 L Lymph % (Auto) [place] % (Auto) Lymph # Seg Neutrophils % Seg Neuts % (Manual) Lymphocytes % (Manual) Seg Neutrophils # Man Lymphocytes # (Manual) PT INR D-Dimer Heparin Anti-Xa Level ABG pH 7.340 L ABG pO2 77.7 L 136.3 H ABG HCO3 27.6 H 28.8 H ABG O2 Saturation ABG Base Excess ABG Hemoglobin 9.3 L 10.9 L Oxyhemoglobin 94.2 L Sodium Chloride Carbon Dioxide BUN Creatinine Glucose POC Glucose Calcium Magnesium Ferritin AST Alkaline Phosphatase Lactate Dehydrogenase Troponin T C-Reactive Protein NT-Pro-B Natriuret Pep Total Protein Albumin 01/23/20 01/23/20 01/23/20 06:23 07:07 12:23 WBC RBC Hgb Hct MCV RDW Plt Count Lymph % (Auto) [place] % (Auto) Lymph # Seg Neutrophils % Seg Neuts % (Manual) Lymphocytes % (Manual) Seg Neutrophils # Man Lymphocytes # (Manual) PT INR D-Dimer Heparin Anti-Xa Level ABG pH ABG pO2 ABG HCO3 ABG O2 Saturation ABG Base Excess ABG Hemoglobin Oxyhemoglobin Sodium Chloride Carbon Dioxide BUN Creatinine Glucose POC Glucose 57 L 127 H 131 H Calcium Magnesium Ferritin AST Alkaline Phosphatase Lactate Dehydrogenase Troponin T C-Reactive Protein NT-Pro-B Natriuret Pep Total Protein Albumin 01/23/20 01/23/20 01/24/20 Unknown Unknown 04:00 WBC 16.2 H RBC 3.08 L Hgb 8.9 L Hct 28.6 L MCV RDW 17.8 H Plt Count 139 L Lymph % (Auto) [place] % (Auto) Lymph # Seg Neutrophils % Seg Neuts % (Manual) Lymphocytes % (Manual) Seg Neutrophils # Man Lymphocytes # (Manual) PT INR D-Dimer Heparin Anti-Xa Level < 0.10 L ABG pH ABG pO2 ABG HCO3 ABG O2 Saturation ABG Base Excess ABG Hemoglobin Oxyhemoglobin Sodium Chloride Carbon Dioxide BUN Creatinine Glucose POC Glucose Calcium Magnesium Ferritin 4195.0 H AST Alkaline Phosphatase Lactate Dehydrogenase Troponin T C-Reactive Protein NT-Pro-B Natriuret Pep Total Protein Albumin 01/24/20 01/24/20 01/24/20 04:00 04:00 04:00 WBC RBC Hgb Hct MCV RDW Plt Count Lymph % (Auto) [place] % (Auto) Lymph # Seg Neutrophils % Seg Neuts % (Manual) Lymphocytes % (Manual) Seg Neutrophils # Man Lymphocytes # (Manual) PT INR D-Dimer 5783.11 H Heparin Anti-Xa Level ABG pH 7.188 L* ABG pO2 70.8 L ABG HCO3 32.2 H ABG O2 Saturation 90.4 L ABG Base Excess ABG Hemoglobin 8.5 L Oxyhemoglobin 88.1 L Sodium Chloride Carbon Dioxide BUN Creatinine Glucose POC Glucose Calcium Magnesium Ferritin AST Alkaline Phosphatase Lactate Dehydrogenase 474 H Troponin T C-Reactive Protein 29.80 H NT-Pro-B Natriuret Pep Total Protein Albumin 01/24/20 01/24/20 01/24/20 05:20 05:51 09:14 WBC RBC Hgb Hct MCV RDW Plt Count Lymph % (Auto) [place] % (Auto) Lymph # Seg Neutrophils % Seg Neuts % (Manual) Lymphocytes % (Manual) Seg Neutrophils # Man Lymphocytes # (Manual) PT INR D-Dimer Heparin Anti-Xa Level ABG pH 7.214 L ABG pO2 71.7 L ABG HCO3 31.5 H ABG O2 Saturation 91.8 L ABG Base Excess ABG Hemoglobin 9.1 L Oxyhemoglobin 89.3 L Sodium Chloride Carbon Dioxide BUN Creatinine Glucose POC Glucose 50 L 53 L Calcium Magnesium Ferritin AST Alkaline Phosphatase Lactate Dehydrogenase Troponin T C-Reactive Protein NT-Pro-B Natriuret Pep Total Protein Albumin 01/24/20 01/24/20 01/24/20 15:10 18:04 21:10 WBC RBC Hgb Hct MCV RDW Plt Count Lymph % (Auto) [place] % (Auto) Lymph # Seg Neutrophils % Seg Neuts % (Manual) Lymphocytes % (Manual) Seg Neutrophils # Man Lymphocytes # (Manual) PT INR D-Dimer Heparin Anti-Xa Level ABG pH ABG pO2 ABG HCO3 ABG O2 Saturation ABG Base Excess ABG Hemoglobin Oxyhemoglobin Sodium Chloride Carbon Dioxide BUN Creatinine Glucose POC Glucose 114 H 51 L 144 H Calcium Magnesium Ferritin AST Alkaline Phosphatase Lactate Dehydrogenase Troponin T C-Reactive Protein NT-Pro-B Natriuret Pep Total Protein Albumin 01/24/20 01/25/20 01/25/20 Unknown 00:32 03:50 WBC 13.0 H RBC 3.10 L Hgb 9.2 L Hct 29.0 L MCV RDW 17.7 H Plt Count Lymph % (Auto) [place] % (Auto) Lymph # Seg Neutrophils % Seg Neuts % (Manual) 92.0 H Lymphocytes % (Manual) 5.0 L Seg Neutrophils # Man 12.0 H Lymphocytes # (Manual) 0.7 L PT INR D-Dimer Heparin Anti-Xa Level ABG pH 7.291 L ABG pO2 71.3 L ABG HCO3 30.6 H ABG O2 Saturation 93.6 L ABG Base Excess 3.3 H ABG Hemoglobin 8.1 L Oxyhemoglobin 91.2 L Sodium Chloride Carbon Dioxide BUN Creatinine Glucose POC Glucose 114 H Calcium Magnesium Ferritin AST Alkaline Phosphatase Lactate Dehydrogenase Troponin T C-Reactive Protein NT-Pro-B Natriuret Pep Total Protein Albumin 01/25/20 01/25/20 01/25/20 04:22 06:05 17:28 WBC RBC Hgb Hct MCV RDW Plt Count Lymph % (Auto) [place] % (Auto) Lymph # Seg Neutrophils % Seg Neuts % (Manual) Lymphocytes % (Manual) Seg Neutrophils # Man Lymphocytes # (Manual) PT INR D-Dimer Heparin Anti-Xa Level ABG pH 7.304 L ABG pO2 69.5 L ABG HCO3 29.7 H ABG O2 Saturation 93.2 L ABG Base Excess ABG Hemoglobin 8.7 L Oxyhemoglobin 90.7 L Sodium Chloride Carbon Dioxide BUN Creatinine Glucose POC Glucose 136 H 127 H Calcium Magnesium Ferritin AST Alkaline Phosphatase Lactate Dehydrogenase Troponin T C-Reactive Protein NT-Pro-B Natriuret Pep Total Protein Albumin 01/26/20 01/26/20 01/26/20 00:20 02:31 02:31 WBC RBC Hgb Hct MCV RDW Plt Count Lymph % (Auto) [place] % (Auto) Lymph # Seg Neutrophils % Seg Neuts % (Manual) Lymphocytes % (Manual) Seg Neutrophils # Man Lymphocytes # (Manual) PT INR D-Dimer Heparin Anti-Xa Level ABG pH ABG pO2 ABG HCO3 ABG O2 Saturation ABG Base Excess ABG Hemoglobin Oxyhemoglobin Sodium Chloride Carbon Dioxide BUN Creatinine Glucose POC Glucose 127 H Calcium Magnesium Ferritin 3764.0 H AST Alkaline Phosphatase Lactate Dehydrogenase 393 H Troponin T C-Reactive Protein 28.60 H NT-Pro-B Natriuret Pep Total Protein Albumin 01/26/20 01/26/20 01/26/20 02:31 04:45 05:24 WBC RBC Hgb Hct MCV RDW Plt Count Lymph % (Auto) [place] % (Auto) Lymph # Seg Neutrophils % Seg Neuts % (Manual) Lymphocytes % (Manual) Seg Neutrophils # Man Lymphocytes # (Manual) PT INR D-Dimer 3828.76 H Heparin Anti-Xa Level ABG pH ABG pO2 ABG HCO3 30.8 H ABG O2 Saturation ABG Base Excess 4.9 H ABG Hemoglobin 7.4 L Oxyhemoglobin 94.6 L Sodium Chloride Carbon Dioxide BUN Creatinine Glucose POC Glucose 121 H Calcium Magnesium Ferritin AST Alkaline Phosphatase Lactate Dehydrogenase Troponin T C-Reactive Protein NT-Pro-B Natriuret Pep Total Protein Albumin 01/26/20 01/26/20 01/26/20 10:40 12:36 18:10 WBC RBC Hgb Hct MCV RDW Plt Count Lymph % (Auto) [place] % (Auto) Lymph # Seg Neutrophils % Seg Neuts % (Manual) Lymphocytes % (Manual) Seg Neutrophils # Man Lymphocytes # (Manual) PT INR D-Dimer Heparin Anti-Xa Level ABG pH ABG pO2 ABG HCO3 ABG O2 Saturation ABG Base Excess ABG Hemoglobin Oxyhemoglobin Sodium Chloride Carbon Dioxide BUN Creatinine Glucose POC Glucose 119 H 126 H 159 H Calcium Magnesium Ferritin AST Alkaline Phosphatase Lactate Dehydrogenase Troponin T C-Reactive Protein NT-Pro-B Natriuret Pep Total Protein Albumin 01/27/20 01/27/20 01/27/20 03:45 06:15 12:19 WBC RBC Hgb Hct MCV RDW Plt Count Lymph % (Auto) [place] % (Auto) Lymph # Seg Neutrophils % Seg Neuts % (Manual) Lymphocytes % (Manual) Seg Neutrophils # Man Lymphocytes # (Manual) PT INR D-Dimer Heparin Anti-Xa Level ABG pH 7.307 L ABG pO2 91.1 H ABG HCO3 30.5 H ABG O2 Saturation ABG Base Excess 3.4 H ABG Hemoglobin 8.7 L Oxyhemoglobin 94.3 L Sodium Chloride Carbon Dioxide BUN Creatinine Glucose POC Glucose 147 H 164 H Calcium Magnesium Ferritin AST Alkaline Phosphatase Lactate Dehydrogenase Troponin T C-Reactive Protein NT-Pro-B Natriuret Pep Total Protein Albumin 01/27/20 01/28/20 01/28/20 17:42 00:29 04:34 WBC RBC Hgb Hct MCV RDW Plt Count Lymph % (Auto) [place] % (Auto) Lymph # Seg Neutrophils % Seg Neuts % (Manual) Lymphocytes % (Manual) Seg Neutrophils # Man Lymphocytes # (Manual) PT INR D-Dimer Heparin Anti-Xa Level ABG pH ABG pO2 ABG HCO3 ABG O2 Saturation ABG Base Excess ABG Hemoglobin Oxyhemoglobin Sodium Chloride Carbon Dioxide BUN Creatinine Glucose POC Glucose 149 H 178 H Calcium Magnesium Ferritin > 2000.0 H AST Alkaline Phosphatase Lactate Dehydrogenase Troponin T C-Reactive Protein NT-Pro-B Natriuret Pep Total Protein Albumin 01/28/20 01/28/20 01/28/20 04:34 04:34 05:20 WBC RBC Hgb Hct MCV RDW Plt Count Lymph % (Auto) [place] % (Auto) Lymph # Seg Neutrophils % Seg Neuts % (Manual) Lymphocytes % (Manual) Seg Neutrophils # Man Lymphocytes # (Manual) PT INR D-Dimer 2379 H Heparin Anti-Xa Level ABG pH 7.237 L ABG pO2 90.9 H ABG HCO3 29.1 H ABG O2 Saturation ABG Base Excess ABG Hemoglobin 7.5 L Oxyhemoglobin 94.0 L Sodium Chloride Carbon Dioxide BUN Creatinine Glucose POC Glucose Calcium Magnesium Ferritin AST Alkaline Phosphatase Lactate Dehydrogenase 434 H Troponin T C-Reactive Protein 9.70 H NT-Pro-B Natriuret Pep Total Protein Albumin 01/28/20 01/28/20 01/28/20 06:21 12:25 18:17 WBC RBC Hgb Hct MCV RDW Plt Count Lymph % (Auto) [place] % (Auto) Lymph # Seg Neutrophils % Seg Neuts % (Manual) Lymphocytes % (Manual) Seg Neutrophils # Man Lymphocytes # (Manual) PT INR D-Dimer Heparin Anti-Xa Level ABG pH ABG pO2 ABG HCO3 ABG O2 Saturation ABG Base Excess ABG Hemoglobin Oxyhemoglobin Sodium Chloride Carbon Dioxide BUN Creatinine Glucose POC Glucose 127 H 196 H 190 H Calcium Magnesium Ferritin AST Alkaline Phosphatase Lactate Dehydrogenase Troponin T C-Reactive Protein NT-Pro-B Natriuret Pep Total Protein Albumin 01/28/20 01/29/20 01/29/20 23:35 04:00 04:00 WBC 12.6 H RBC 3.01 L Hgb 9.2 L Hct 29.3 L MCV 98 H RDW 18.1 H Plt Count Lymph % (Auto) [place] % (Auto) Lymph # Seg Neutrophils % Seg Neuts % (Manual) Lymphocytes % (Manual) Seg Neutrophils # Man Lymphocytes # (Manual) PT INR D-Dimer Heparin Anti-Xa Level ABG pH ABG pO2 ABG HCO3 ABG O2 Saturation ABG Base Excess ABG Hemoglobin Oxyhemoglobin Sodium 132 L Chloride 90.1 L Carbon Dioxide BUN 50 H Creatinine 3.7 H Glucose 184 H POC Glucose 177 H Calcium Magnesium Ferritin AST 93 H Alkaline Phosphatase 678 H Lactate Dehydrogenase Troponin T C-Reactive Protein NT-Pro-B Natriuret Pep Total Protein Albumin 1.7 L 01/29/20 01/29/20 01/29/20 05:03 11:53 16:44 WBC RBC Hgb Hct MCV RDW Plt Count Lymph % (Auto) [place] % (Auto) Lymph # Seg Neutrophils % Seg Neuts % (Manual) Lymphocytes % (Manual) Seg Neutrophils # Man Lymphocytes # (Manual) PT INR D-Dimer Heparin Anti-Xa Level ABG pH ABG pO2 ABG HCO3 ABG O2 Saturation ABG Base Excess ABG Hemoglobin Oxyhemoglobin Sodium Chloride Carbon Dioxide BUN Creatinine Glucose POC Glucose 145 H 193 H 174 H Calcium Magnesium Ferritin AST Alkaline Phosphatase Lactate Dehydrogenase Troponin T C-Reactive Protein NT-Pro-B Natriuret Pep Total Protein Albumin 01/29/20 01/30/20 01/30/20 23:38 04:25 11:45 WBC RBC Hgb Hct MCV RDW Plt Count Lymph % (Auto) [place] % (Auto) Lymph # Seg Neutrophils % Seg Neuts % (Manual) Lymphocytes % (Manual) Seg Neutrophils # Man Lymphocytes # (Manual) PT INR D-Dimer Heparin Anti-Xa Level ABG pH 7.253 L ABG pO2 61.8 L ABG HCO3 29.7 H ABG O2 Saturation 90.1 L ABG Base Excess ABG Hemoglobin 8.2 L Oxyhemoglobin 87.5 L Sodium Chloride Carbon Dioxide BUN Creatinine Glucose POC Glucose 144 H 191 H Calcium Magnesium Ferritin AST Alkaline Phosphatase Lactate Dehydrogenase Troponin T C-Reactive Protein NT-Pro-B Natriuret Pep Total Protein Albumin Allied health notes reviewed: nursing
[2020-01-30] MEDS ORDERED: SODIUM CHLORIDE*PRIMING MACHINE ONLY FOR DIALYSIS MC ONE (12:23)
[2020-01-30] MEDS: VALSARTAN 40 MG TAB PO SCH (13:17)
[2020-01-30] MEDS: DOCUSATE SODIUM 100 MG/10 ML ORAL LIQD PO SCH ×2 (13:17→22:06)
[2020-01-30] MEDS: DULoxetine 30 MG CAP PO SCH (13:25)
[2020-01-30] MEDS: ENOXAPARIN 80 MG/0.8 ML INJ SUB-Q SCH (13:25)
[2020-01-30] MEDS: FAMOTIDINE 20 MG TAB PO SCH (13:25)
--- NOTE | 2020-01-30 18:23 | Progress Note ---
Assessment and Plan - Patient Problems (1) Volume overload Current Visit: Yes Status: Acute Qualifiers: Plan to address problem: end-stage renal disease with fluid overload. Improved with fluid removal on dialysis. (2) Pneumonia due to COVID-19 virus Current Visit: Yes Status: Acute Plan to address problem: continue treatment per infectious disease. 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 (5) Acute respiratory failure with hypoxia Current Visit: No Status: Acute Plan to address problem: ventilator management by pulmonary/typewriter mechanic (6) Hyponatremia Current Visit: No Status: Acute Plan to address problem: hypervolemic hyponatremia. Follow-up sodium with fluid removal on dialysis (7) Hypertensive chronic kidney disease with stage 5 chronic kidney disease or end stage renal disease Current Visit: No Status: Chronic Plan to address problem: patient is now hypotensive (8) Sepsis with hypotension Current Visit: Yes Status: Acute Plan to address problem: Off of vasopressor. Monitor closely Subjective Date of service: 01/30/20 Principal diagnosis: Pneumonia Interval history: Patient seen lying in bed. She is intubated on the ventilator in intensive care unit. Off vasopressor PUI?: Yes COVID19: Positive Objective - Exam Narrative Exam: elderly -[place] female lying in bed intubated on the ventilator HEENT: Normocephalic atraumatic, endotracheal tube intact Neck: Supple, no venous distention, no goiter CVS: S1S2 RRR No murmur, rub or gallop Lungs: Coarse breath sounds with bilateral rhonchi Abdomen: Full, soft, nontender, no organomegaly no bruit, bowel sounds are present Extremities: No edema, no cyanosis or clubbing Urinary: Deferred Musculo-skeletal: No joint deformities or swelling Neuro: intubated on ventilator - Vital Signs Vital signs: Vital Signs - 12hr 01/30/20 01/30/20 01/30/20 07:00 08:00 08:13 Temperature Pulse Rate 87 89 87 Respiratory 22 25 H Rate Blood Pressure 125/59 126/60 126/60 O2 Sat by Pulse 91 91 94 Oximetry O2 Sat by Pulse Oximetry [ Posterior Bilateral Throughout] 01/30/20 01/30/20 01/30/20 09:01 09:10 09:15 Temperature 98.8 F Pulse Rate 89 86 86 Respiratory 26 H 25 H Rate Blood Pressure 129/58 127/61 121/58 O2 Sat by Pulse 91 Oximetry O2 Sat by Pulse 92 Oximetry [ Posterior Bilateral Throughout] 01/30/20 01/30/20 01/30/20 09:30 09:45 10:00 Temperature Pulse Rate 87 88 88 Respiratory 24 Rate Blood Pressure 118/57 93/44 102/53 O2 Sat by Pulse 89 Oximetry O2 Sat by Pulse Oximetry [ Posterior Bilateral Throughout] 01/30/20 01/30/20 01/30/20 10:15 10:30 10:45 Temperature Pulse Rate 819 H 87 87 Respiratory Rate Blood Pressure 104/55 103/49 101/50 O2 Sat by Pulse Oximetry O2 Sat by Pulse Oximetry [ Posterior Bilateral Throughout] 01/30/20 01/30/20 01/30/20 11:00 11:15 11:30 Temperature Pulse Rate 85 87 87 Respiratory 20 Rate Blood Pressure 98/49 99/50 100/50 O2 Sat by Pulse 90 Oximetry O2 Sat by Pulse Oximetry [ Posterior Bilateral Throughout] 01/30/20 01/30/20 01/30/20 11:40 11:45 12:00 Temperature Pulse Rate 86 86 85 Respiratory Rate Blood Pressure 100/50 101/47 103/80 O2 Sat by Pulse 94 Oximetry O2 Sat by Pulse Oximetry [ Posterior Bilateral Throughout] 01/30/20 01/30/20 01/30/20 12:15 12:30 15:31 Temperature 99.1 F Pulse Rate 88 87 90 Respiratory 21 23 Rate Blood Pressure 116/54 94/47 123/57 O2 Sat by Pulse 95 Oximetry O2 Sat by Pulse 92 Oximetry [ Posterior Bilateral Throughout] 01/30/20 01/30/20 15:46 17:13 Temperature 98.4 F Pulse Rate 94 H Respiratory 13 Rate Blood Pressure 100/36 O2 Sat by Pulse 98 Oximetry O2 Sat by Pulse Oximetry [ Posterior Bilateral Throughout] - Lab 01/29/20 04:00 01/29/20 04:00 Most recent lab results ABG pH 7.253 pH Units (7.350-7.450) L 01/30/20 04:25 ABG pCO2 68.8 mm Hg 01/30/20 04:25 ABG pO2 61.8 mm Hg (80.0-90.0) L 01/30/20 04:25 ABG HCO3 29.7 mmol/L (20.0-26.0) H 01/30/20 04:25 ABG O2 Saturation 90.1 % (95.0-99.0) L 01/30/20 04:25 Calcium 8.9 mg/dL (8.4-10.2) 01/29/20 04:00 Phosphorus 3.30 mg/dL (2.5-4.5) 01/12/20 16:01 Magnesium 2.00 mg/dL (1.7-2.3) 01/13/20 06:11 Medications & Allergies - Medications Allergies/Adverse Reactions: Allergies cheese Allergy (Mild, Verified 12/20/19 10:19) Itching iodine Allergy (Mild, Verified 12/20/19 10:16) Anaphylaxis clonidine Allergy (Verified 12/19/19 04:13) Anaphylaxis shellfish derived Adverse Reaction (Verified 12/19/19 04:13) Angioedema Home Medications: Home Medications Medication Instructions Recorded Confirmed Last Taken Type Atorvastatin [Lipitor] 40 mg PO DAILY 11/06/19 01/13/20 01/02/20 10:00 History Acetaminophen [Acetaminophen 8 650 mg PO Q8H PRN #30 tablet.er 11/21/19 01/13/20 01/03/20 22:00 Rx Hour] Cyclobenzaprine HCl [Flexeril 5 MG 5 mg PO QHS PRN #20 tab 11/21/19 01/13/20 01/01/20 22:00 Rx TAB] HYDROcodone/APAP 5-325 [[place] 1 each PO Q6HR PRN #18 tablet 12/13/19 01/13/20 01/01/20 22:00 Rx 5-325 mg TAB] amLODIPine 10 mg PO DAILY 90 Days #90 tab 12/18/19 01/13/20 01/01/20 10:00 Rx Ibuprofen 800 mg PO TID 12/19/19 01/13/20 01/02/20 22:00 History Magnesium Oxide [Mag-Ox] 400 mg PO QDAY 12/19/19 01/13/20 01/03/20 10:00 History diphenhydrAMINE [Benadryl CAP] 25 mg PO Q8HR PRN 12/19/19 01/13/20 01/03/20 21:00 History labetaloL [Labetalol 100mg TAB] 100 mg PO Q8H #90 tablet 12/21/19 01/13/20 01/02/20 10:00 Rx traMADoL [Ultram 50 MG tab] 50 mg PO Q6HR PRN #20 tablet 12/29/19 01/13/20 12/31/19 10:00 Rx DULoxetine [Cymbalta] 30 mg PO QDAY #30 capsule 01/04/20 01/13/20 Unknown Rx Valsartan [Diovan] 80 mg PO DAILY #30 tablet 01/04/20 01/13/20 Unknown Rx Active Medications: Generic Name Dose Route Start Last Admin Trade Name Tobyq PRN Reason Stop Dose Admin Acetaminophen 650 mg 01/09/20 16:33 01/27/20 12:26 Tylenol PO 650 mg Q4H PRN Administration Pain MILD(1-3)/Fever >100.5/MEANS Lipase/Protease/Amylase 1 each 01/23/20 14:28 Pancreaze 10,500 Unit FEEDTUBE PRN PRN For Clogged Feeding Tube Atorvastatin Calcium 40 mg 01/09/20 22:00 01/29/20 21:11 Lipitor PO 40 mg QHS PHILLY Administration Cyclobenzaprine HCl 5 mg 01/09/20 16:27 01/10/20 23:17 Flexeril PO 5 mg QHS PRN Administration Muscle Spasm Dextrose 50 ml 01/23/20 07:26 01/24/20 18:29 D50w (25gm) Syringe IV 50 ml Q30MIN PRN Administration BLOOD GLUCOSE < 70 Dextrose 25 ml 01/24/20 08:58 01/24/20 13:41 D50w (25gm) Syringe IV 25 ml Q4H PRN Administration BG < 80 MG/DL Docusate Sodium 100 mg 01/25/20 22:00 01/30/20 13:17 Colace PO 100 mg BID PHILLY Administration Enoxaparin Sodium 80 mg 01/23/20 12:00 01/30/20 13:25 Enoxaparin SUB-Q 80 mg Q24HR PHILLY Administration Famotidine 20 mg 01/09/20 22:00 01/30/20 13:25 Pepcid PO 20 mg DAILY PHILLY Administration Norepinephrine 4 mg in 250 mls @ 7.5 mls/hr 01/21/20 18:00 01/28/20 14:00 Levophed Drip 4 Mg/Ns 250 Ml IV 0 mcg/min TITR PHILLY 0 mls/hr Titration Protocol 2 MCG/MIN Propofol 1,000 mg in 100 mls @ 2.265 mls/hr 01/22/20 09:00 01/30/20 14:25 Diprivan 10 Mg/Ml IV 0 mcg/kg/min TITR PHILLY 0 mls/hr Titration Protocol 5 MCG/KG/MIN Sodium Chloride 100 mls @ 999 mls/hr 01/26/20 07:54 01/30/20 10:22 Nacl 0.9% IV 999 mls/hr SILVERIO PRN Administration Hypotension Lorazepam 2 mg 01/23/20 15:36 Ativan IV Q10MIN PRN Agitation Morphine Sulfate 1 mg 01/30/20 11:21 Morphine IV Q4H PRN Pain, Moderate (4-6) Ondansetron HCl 4 mg 01/09/20 16:33 01/20/20 10:19 Zofran IV 4 mg Q8H PRN Administration Nausea And Vomiting Simple Syrup 15 ml 01/23/20 14:28 Simple Syrup FEEDTUBE PRN PRN Hypoglycemia Simple Syrup 30 ml 01/23/20 14:28 Simple Syrup FEEDTUBE PRN PRN Hypoglycemia Sodium Bicarbonate 325 mg 01/23/20 14:28 Sodium Bicarbonate FEEDTUBE PRN PRN For Clogged Feeding Tube Sodium Chloride 10 ml 01/09/20 22:00 01/30/20 13:25 Sodium Chloride Flush Syringe 10 Ml IV 10 ml BID PHILLY Administration Sodium Chloride 10 ml 01/09/20 16:33 Sodium Chloride Flush Syringe 10 Ml IV PRN PRN LINE FLUSH Valsartan 80 mg 01/10/20 10:00 01/30/20 13:17 Diovan PO 80 mg DAILY PHILLY Administration
[2020-01-30] MEDS: NORepinephrine/NS 4 MG-250 ML 4 MG/250 ML BAG IV SCH (18:46)
[2020-01-31 04:09] LABS: ABG Base Excess 3.7 mmol/L (-2.0-3.0); ABG HCO3 29.4 mmol/L (20.0-26.0); ABG Methemoglobin 0.5 % (0.0-1.5); ABG Oxygen Saturation 98.2 % (95.0-99.0); ABG PCO2 54.2 mm Hg; ABG PH 7.353 pH Units (7.350-7.450); ABG PO2 69.3 mm Hg (80.0-90.0)
[2020-01-31 05:05] LABS: Hematocrit 25.7 % (30.3-42.9); Hemoglobin 8.3 gm/dl (10.1-14.3); Mean Corpuscular HGB Conc 32 % (30-34); Mean Corpuscular Volume 94 fl (79-97); Platelet Count 350 K/mm3 (140-440); Red Blood Count 2.73 M/mm3 (3.65-5.03)
[2020-01-31 05:29] LABS: Albumin 2.1 g/dL (3.9-5); Calcium 8.8 mg/dL (8.4-10.2)
[2020-01-31 06:14] LABS: Basophils % (Manual) 0 % (0.0-1.8); Eosinophils % (Manual) 0 % (0.0-4.3); Total Cells Counted 100
[2020-01-31 06:15] LABS: Anisocytosis Few
[2020-01-31 06:16] LABS: Platelet Estimate Consistent w Auto; Schistocytes Few; Spherocytes Rare
[2020-01-31] MEDS: DOCUSATE SODIUM 100 MG/10 ML ORAL LIQD PO SCH ×2 (10:28→22:09)
[2020-01-31] MEDS: FAMOTIDINE 20 MG TAB PO SCH (11:00)
[2020-01-31] MEDS: ENOXAPARIN 80 MG/0.8 ML INJ SUB-Q SCH (11:04)
[2020-01-31] MEDS: VALSARTAN 40 MG TAB PO SCH (11:04)
--- NOTE | 2020-01-31 12:06 | Progress Note ---
Assessment and Plan Cultures: 01/10/2020 blood culture: No growth 01/21/2020 sputum culture: No growth 01/25/2020 blood culture: No growth A/P: #Sepsis with shock: likely due to severe COVID pneumonia. Completed empiric Cefepime x 5 days. #Severe COVID pneumonia: very elevated inflammatory markers. S/p ivermectin x 1 on 01/21/2020 (off label use). S/p hydroxychloroquine with zinc x 5 days. #Acute hypoxic resp failure: intubated, on the vent #ESRD on HD #Thrombocytopenia: resolved #Elevated LFTs: etiology unclear. Bilirubin is normal. Alk phos and transaminases elevated. May need to consider RUQ US if hemodynamic instability or new fevers. Recs: continue supportive care, ventilatory support Slava Hannon MD, FACP [facility] ([facility]) C: [phone] O: [phone] F: [phone] Subjective Date of service: 01/31/20 Principal diagnosis: Pneumonia Interval history: Afebrile. Remains intubated, sedated, on the vent. PUI?: Yes COVID19: Positive Objective - Exam Narrative Exam: Physical Exam (reviewed in chart due to PPE conservation) Constitutional: intubated, sedated, on the vent Head, Ears, Nose: normocephalic, atraumatic Eyes: limited due to PPE conservation strategy Neck: intubated Oral: intubated Cardiovascular: limited due to PPE conservation strategy Respiratory: limited due to PPE conservation strategy GI: limited due to PPE conservation strategy Musculoskeletal: limited due to PPE conservation strategy Skin: limited due to PPE conservation strategy Hem/Lymphatic: limited due to PPE conservation strategy Psych: no agitation Neurological: sedated, intubated, on the vent, exam limited. - Constitutional Vitals: Vital Signs Temp Pulse Resp BP Pulse Ox 98.9 F 102 H 15 95/41 93 01/31/20 08:00 01/31/20 11:04 01/31/20 11:01 01/31/20 11:04 01/31/20 11:01 Temperature -Last 24 Hours Temperature 98.9 F Temperature 99.4 F Temperature 97.4 F Temperature 98.4 F Temperature 99.1 F - Labs CBC & Chem 7: 01/31/20 04:16 01/31/20 04:00 Labs: Abnormal lab results 01/30/20 01/31/20 01/31/20 Range/Units 18:21 00:04 03:52 WBC (4.5-11.0) K/mm3 RBC (3.65-5.03) M/mm3 Hgb (10.1-14.3) gm/dl Hct (30.3-42.9) % RDW (13.2-15.2) % Seg Neuts % (Manual) (40.0-70.0) % Lymphocytes % (Manual) (13.4-35.0) % Seg Neutrophils # Man (1.8-7.7) K/mm3 Lymphocytes # (Manual) (1.2-5.4) K/mm3 Monocytes # (Manual) (0.0-0.8) K/mm3 ABG pO2 69.3 L (80.0-90.0) mm Hg ABG HCO3 29.4 H (20.0-26.0) mmol/L ABG Base Excess 3.7 H (-2.0-3.0) mmol/L ABG Hemoglobin 10.8 L (12.0-16.0) gm/dl Sodium (137-145) mmol/L Chloride (98-107) mmol/L BUN (7-17) mg/dL Creatinine (0.7-1.2) mg/dL Glucose (65-100) mg/dL POC Glucose 198 H 129 H (70-105) AST (5-40) units/L ALT (7-56) units/L Alkaline Phosphatase (35-129) units/L Albumin (3.9-5) g/dL 01/31/20 01/31/20 01/31/20 Range/Units 04:00 04:16 05:12 WBC 16.7 H (4.5-11.0) K/mm3 RBC 2.73 L (3.65-5.03) M/mm3 Hgb 8.3 L (10.1-14.3) gm/dl Hct 25.7 L (30.3-42.9) % RDW 18.0 H (13.2-15.2) % Seg Neuts % (Manual) 92.0 H (40.0-70.0) % Lymphocytes % (Manual) 2.0 L (13.4-35.0) % Seg Neutrophils # Man 15.4 H (1.8-7.7) K/mm3 Lymphocytes # (Manual) 0.3 L (1.2-5.4) K/mm3 Monocytes # (Manual) 1.0 H (0.0-0.8) K/mm3 ABG pO2 (80.0-90.0) mm Hg ABG HCO3 (20.0-26.0) mmol/L ABG Base Excess (-2.0-3.0) mmol/L ABG Hemoglobin (12.0-16.0) gm/dl Sodium 130 L (137-145) mmol/L Chloride 90.1 L (98-107) mmol/L BUN 61 H (7-17) mg/dL Creatinine 3.4 H (0.7-1.2) mg/dL Glucose 128 H (65-100) mg/dL POC Glucose 157 H (70-105) AST 103 H (5-40) units/L ALT 63 H (7-56) units/L Alkaline Phosphatase 534 H (35-129) units/L Albumin 2.1 L (3.9-5) g/dL 01/31/20 Range/Units 11:50 WBC (4.5-11.0) K/mm3 RBC (3.65-5.03) M/mm3 Hgb (10.1-14.3) gm/dl Hct (30.3-42.9) % RDW (13.2-15.2) % Seg Neuts % (Manual) (40.0-70.0) % Lymphocytes % (Manual) (13.4-35.0) % Seg Neutrophils # Man (1.8-7.7) K/mm3 Lymphocytes # (Manual) (1.2-5.4) K/mm3 Monocytes # (Manual) (0.0-0.8) K/mm3 ABG pO2 (80.0-90.0) mm Hg ABG HCO3 (20.0-26.0) mmol/L ABG Base Excess (-2.0-3.0) mmol/L ABG Hemoglobin (12.0-16.0) gm/dl Sodium (137-145) mmol/L Chloride (98-107) mmol/L BUN (7-17) mg/dL Creatinine (0.7-1.2) mg/dL Glucose (65-100) mg/dL POC Glucose 129 H (70-105) AST (5-40) units/L ALT (7-56) units/L Alkaline Phosphatase (35-129) units/L Albumin (3.9-5) g/dL
--- NOTE | 2020-01-31 13:46 | Progress Note ---
Assessment and Plan 64 y/o female with COVID positive, viral pneumonia with some pulmonary vascular congestion superimposed. 1. Continue PSV trials. Asked RT to attempt to drop PEEP to 6 2. HD per renal. UF is definitely helping as changes can be seen in CXR. HD again tomorrow. Will not repeat CXR any time soon unless increase in oxygen requirements. 3. Changed back to prophylactic dosing for VTE as not confirmed the presence of VTE 4. Overall prognosis is guarded to poor, especially with prior history of ESRD on HD. Continue supportive care. IMS spoke with who has made patient a DNR. I have signed. Hopeful she can pull through but do agree with DNR status given evidence of increased mortality throughout [place] from this novel [place] virus. Spoke with IMS again as they will speak with today. Hopeful he will continue as she has made improvements CCT 31 minutes. Subjective Date of service: 01/31/20 Principal diagnosis: Pneumonia Interval history: Currently on PSV 09/23. Tolerating well. Off sedation. Had HD on yesterday. Mild hypotension today so started back on levophed. PUI?: Yes COVID19: Positive Objective Vital Signs - 12hr 01/31/20 01/31/20 01/31/20 02:00 03:00 03:41 Temperature Pulse Rate 104 H 99 H 102 H Respiratory 36 H 32 H Rate Blood Pressure 128/65 124/66 O2 Sat by Pulse 93 94 Oximetry 01/31/20 01/31/20 01/31/20 03:42 03:56 04:00 Temperature 99.4 F Pulse Rate 103 H 103 H Respiratory 42 H Rate Blood Pressure 128/62 139/70 O2 Sat by Pulse 95 95 Oximetry 01/31/20 01/31/20 01/31/20 05:01 05:31 05:45 Temperature Pulse Rate 96 H 94 H 95 H Respiratory 18 23 19 Rate Blood Pressure 107/54 113/57 113/57 O2 Sat by Pulse 94 95 94 Oximetry 01/31/20 01/31/20 01/31/20 06:01 06:15 06:31 Temperature Pulse Rate 94 H 96 H 97 H Respiratory 20 19 18 Rate Blood Pressure 117/55 129/58 123/59 O2 Sat by Pulse 95 95 95 Oximetry 01/31/20 01/31/20 01/31/20 06:45 07:01 07:15 Temperature Pulse Rate 97 H 97 H 99 H Respiratory 21 22 21 Rate Blood Pressure 131/63 131/58 131/63 O2 Sat by Pulse 95 95 95 Oximetry 01/31/20 01/31/20 01/31/20 07:31 07:45 08:00 Temperature 98.9 F Pulse Rate 97 H 96 H 96 H Respiratory 16 21 Rate Blood Pressure 124/56 124/56 O2 Sat by Pulse 95 95 94 Oximetry 01/31/20 01/31/20 01/31/20 08:01 08:15 08:31 Temperature Pulse Rate 99 H 98 H 97 H Respiratory 21 22 21 Rate Blood Pressure 135/57 135/57 122/58 O2 Sat by Pulse 95 95 96 Oximetry 01/31/20 01/31/20 01/31/20 08:45 09:00 09:01 Temperature Pulse Rate 97 H 95 H 94 H Respiratory 18 14 Rate Blood Pressure 122/58 117/75 137/61 O2 Sat by Pulse 97 92 Oximetry 01/31/20 01/31/20 01/31/20 09:15 09:17 09:31 Temperature Pulse Rate 97 H 98 H 99 H Respiratory 17 25 H 14 Rate Blood Pressure 137/61 137/61 132/53 O2 Sat by Pulse 92 95 93 Oximetry 01/31/20 01/31/20 01/31/20 09:45 10:01 10:15 Temperature Pulse Rate 99 H 102 H 100 H Respiratory 15 13 13 Rate Blood Pressure 132/53 128/44 128/44 O2 Sat by Pulse 93 Oximetry 01/31/20 01/31/20 01/31/20 10:31 10:45 11:01 Temperature Pulse Rate 99 H 98 H 99 H Respiratory 13 13 15 Rate Blood Pressure 105/42 98/42 95/41 O2 Sat by Pulse 93 91 93 Oximetry 01/31/20 01/31/20 01/31/20 11:04 12:00 12:52 Temperature 98.8 F Pulse Rate 102 H 102 H Respiratory 18 Rate Blood Pressure 95/41 84/39 O2 Sat by Pulse 89 Oximetry Constitutional: other (orally intubated, not sedated currently on vent) Eyes: non-icteric ENT: oropharynx moist Neck: supple Effort: normal Ascultation: Bilateral: rales Cardiovascular: regular rate and rhythm (no mrg) Gastrointestinal: normoactive bowel sounds, soft, non-tender, non-distended Integumentary: normal Extremities: no cyanosis, no edema, pink and warm Neurologic: normal mental status, non-focal exam, pupils equal and round, CN II- XII normal Psychiatric: mood appropriate, affect normal CBC and BMP: 01/31/20 04:16 01/31/20 04:00 ABG, PT/INR, D-dimer: ABG ABG pH 7.353 pH Units (7.350-7.450) 01/31/20 03:52 ABG pCO2 54.2 mm Hg 01/31/20 03:52 ABG pO2 69.3 mm Hg (80.0-90.0) L 01/31/20 03:52 ABG O2 Saturation 98.2 % (95.0-99.0) 01/31/20 03:52 PT/INR, D-dimer PT 15.6 Sec. (12.2-14.9) H 01/09/20 12:55 INR 1.22 (0.87-1.13) H 01/09/20 12:55 D-Dimer 2379 ng/mlDDU (0-234) H 01/28/20 04:34 Abnormal lab findings: Abnormal Labs 01/09/20 01/09/20 01/09/20 12:55 12:55 12:55 WBC 4.4 L RBC 3.44 L Hgb Hct MCV RDW 17.0 H Plt Count Lymph % (Auto) 6.8 L [place] % (Auto) 13.6 H Lymph # 0.3 L Seg Neutrophils % 79.0 H Seg Neuts % (Manual) Lymphocytes % (Manual) Seg Neutrophils # Man Lymphocytes # (Manual) Monocytes # (Manual) PT 15.6 H INR 1.22 H D-Dimer Heparin Anti-Xa Level ABG pH ABG pO2 ABG HCO3 ABG O2 Saturation ABG Base Excess ABG Hemoglobin Oxyhemoglobin Sodium 130 L Chloride 88.9 L Carbon Dioxide 20 L BUN 41 H Creatinine 7.6 H Glucose 115 H POC Glucose Calcium Magnesium Ferritin AST ALT Alkaline Phosphatase 153 H Lactate Dehydrogenase Troponin T 0.382 H* C-Reactive Protein NT-Pro-B Natriuret Pep 90248 H Total Protein Albumin 3.2 L 01/09/20 01/10/20 01/10/20 20:14 00:16 06:54 WBC 3.3 L RBC 3.00 L Hgb 9.2 L Hct 27.8 L MCV RDW 17.2 H Plt Count Lymph % (Auto) 8.9 L [place] % (Auto) 11.5 H Lymph # 0.3 L Seg Neutrophils % 79.1 H Seg Neuts % (Manual) Lymphocytes % (Manual) Seg Neutrophils # Man Lymphocytes # (Manual) Monocytes # (Manual) PT INR D-Dimer Heparin Anti-Xa Level ABG pH ABG pO2 ABG HCO3 ABG O2 Saturation ABG Base Excess ABG Hemoglobin Oxyhemoglobin Sodium Chloride Carbon Dioxide BUN Creatinine Glucose POC Glucose Calcium Magnesium Ferritin AST ALT Alkaline Phosphatase Lactate Dehydrogenase Troponin T 0.349 H* 0.328 H* C-Reactive Protein NT-Pro-B Natriuret Pep Total Protein Albumin 01/10/20 01/10/20 01/11/20 06:54 06:54 16:45 WBC RBC Hgb Hct MCV RDW Plt Count Lymph % (Auto) [place] % (Auto) Lymph # Seg Neutrophils % Seg Neuts % (Manual) Lymphocytes % (Manual) Seg Neutrophils # Man Lymphocytes # (Manual) Monocytes # (Manual) PT INR D-Dimer Heparin Anti-Xa Level ABG pH ABG pO2 ABG HCO3 ABG O2 Saturation ABG Base Excess ABG Hemoglobin Oxyhemoglobin Sodium 133 L Chloride 90.6 L Carbon Dioxide BUN 50 H Creatinine 8.4 H Glucose 101 H POC Glucose 106 H Calcium 8.1 L Magnesium Ferritin AST ALT Alkaline Phosphatase 148 H Lactate Dehydrogenase Troponin T 0.315 H* C-Reactive Protein NT-Pro-B Natriuret Pep Total Protein 5.4 L Albumin 2.7 L 01/12/20 01/13/20 01/13/20 16:01 06:11 06:11 WBC 3.1 L RBC 3.25 L Hgb 9.8 L Hct MCV RDW 17.2 H Plt Count 136 L Lymph % (Auto) [place] % (Auto) Lymph # Seg Neutrophils % Seg Neuts % (Manual) Lymphocytes % (Manual) Seg Neutrophils # Man Lymphocytes # (Manual) Monocytes # (Manual) PT INR D-Dimer Heparin Anti-Xa Level ABG pH ABG pO2 ABG HCO3 ABG O2 Saturation ABG Base Excess ABG Hemoglobin Oxyhemoglobin Sodium 135 L Chloride 93.4 L Carbon Dioxide BUN 19 H Creatinine 4.5 H Glucose 120 H POC Glucose Calcium 7.8 L Magnesium 1.40 L Ferritin AST ALT Alkaline Phosphatase Lactate Dehydrogenase Troponin T C-Reactive Protein NT-Pro-B Natriuret Pep Total Protein Albumin 01/16/20 01/16/20 01/16/20 08:35 11:49 14:11 WBC RBC Hgb Hct MCV RDW Plt Count Lymph % (Auto) [place] % (Auto) Lymph # Seg Neutrophils % Seg Neuts % (Manual) Lymphocytes % (Manual) Seg Neutrophils # Man Lymphocytes # (Manual) Monocytes # (Manual) PT INR D-Dimer Heparin Anti-Xa Level ABG pH ABG pO2 48.4 L ABG HCO3 30.5 H ABG O2 Saturation 81.9 L ABG Base Excess 4.6 H ABG Hemoglobin 10.5 L Oxyhemoglobin 80.1 L Sodium Chloride Carbon Dioxide BUN Creatinine Glucose POC Glucose 126 H 119 H Calcium Magnesium Ferritin AST ALT Alkaline Phosphatase Lactate Dehydrogenase Troponin T C-Reactive Protein NT-Pro-B Natriuret Pep Total Protein Albumin 01/16/20 01/16/20 01/16/20 15:38 15:38 15:38 WBC RBC Hgb Hct MCV RDW Plt Count Lymph % (Auto) [place] % (Auto) Lymph # Seg Neutrophils % Seg Neuts % (Manual) Lymphocytes % (Manual) Seg Neutrophils # Man Lymphocytes # (Manual) Monocytes # (Manual) PT INR D-Dimer 1104.64 H Heparin Anti-Xa Level ABG pH ABG pO2 ABG HCO3 ABG O2 Saturation ABG Base Excess ABG Hemoglobin Oxyhemoglobin Sodium Chloride Carbon Dioxide BUN Creatinine Glucose POC Glucose Calcium Magnesium Ferritin > 2000.0 H AST ALT Alkaline Phosphatase Lactate Dehydrogenase 690 H Troponin T C-Reactive Protein 24.10 H NT-Pro-B Natriuret Pep Total Protein Albumin 01/16/20 01/18/20 01/18/20 18:11 06:25 06:25 WBC RBC 3.15 L Hgb 9.4 L Hct 29.4 L MCV RDW 17.5 H Plt Count 135 L Lymph % (Auto) 3.8 L [place] % (Auto) Lymph # 0.2 L Seg Neutrophils % 88.8 H Seg Neuts % (Manual) Lymphocytes % (Manual) Seg Neutrophils # Man Lymphocytes # (Manual) Monocytes # (Manual) PT INR D-Dimer Heparin Anti-Xa Level ABG pH ABG pO2 ABG HCO3 ABG O2 Saturation ABG Base Excess ABG Hemoglobin Oxyhemoglobin Sodium Chloride 96.8 L Carbon Dioxide BUN 26 H Creatinine 4.2 H Glucose 115 H POC Glucose 130 H Calcium 8.2 L Magnesium Ferritin AST ALT Alkaline Phosphatase Lactate Dehydrogenase 537 H Troponin T C-Reactive Protein 17.10 H NT-Pro-B Natriuret Pep Total Protein Albumin 01/18/20 01/18/20 01/18/20 06:25 06:25 12:15 WBC RBC Hgb Hct MCV RDW Plt Count Lymph % (Auto) [place] % (Auto) Lymph # Seg Neutrophils % Seg Neuts % (Manual) Lymphocytes % (Manual) Seg Neutrophils # Man Lymphocytes # (Manual) Monocytes # (Manual) PT INR D-Dimer 938.03 H Heparin Anti-Xa Level ABG pH ABG pO2 66.5 L ABG HCO3 30.1 H ABG O2 Saturation 93.2 L ABG Base Excess 4.6 H ABG Hemoglobin 10.0 L Oxyhemoglobin 91.3 L Sodium Chloride Carbon Dioxide BUN Creatinine Glucose POC Glucose Calcium Magnesium Ferritin 3105.0 H AST ALT Alkaline Phosphatase Lactate Dehydrogenase Troponin T C-Reactive Protein NT-Pro-B Natriuret Pep Total Protein Albumin 01/20/20 01/20/20 01/20/20 07:37 07:37 07:37 WBC RBC Hgb Hct MCV RDW Plt Count Lymph % (Auto) [place] % (Auto) Lymph # Seg Neutrophils % Seg Neuts % (Manual) Lymphocytes % (Manual) Seg Neutrophils # Man Lymphocytes # (Manual) Monocytes # (Manual) PT INR D-Dimer 2072.25 H Heparin Anti-Xa Level ABG pH ABG pO2 ABG HCO3 ABG O2 Saturation ABG Base Excess ABG Hemoglobin Oxyhemoglobin Sodium Chloride Carbon Dioxide BUN Creatinine Glucose POC Glucose Calcium Magnesium Ferritin 1826.0 H AST ALT Alkaline Phosphatase Lactate Dehydrogenase 496 H Troponin T C-Reactive Protein 19.30 H NT-Pro-B Natriuret Pep Total Protein Albumin 01/20/20 01/21/20 01/21/20 17:30 03:59 17:35 WBC RBC Hgb Hct MCV RDW Plt Count Lymph % (Auto) [place] % (Auto) Lymph # Seg Neutrophils % Seg Neuts % (Manual) Lymphocytes % (Manual) Seg Neutrophils # Man Lymphocytes # (Manual) Monocytes # (Manual) PT INR D-Dimer Heparin Anti-Xa Level ABG pH ABG pO2 61.1 L 67.4 L ABG HCO3 29.9 H 26.2 H ABG O2 Saturation 91.7 L 93.4 L ABG Base Excess 4.9 H ABG Hemoglobin 9.0 L 9.1 L Oxyhemoglobin 89.5 L 91.1 L Sodium 136 L Chloride Carbon Dioxide BUN 36 H Creatinine 4.9 H Glucose POC Glucose Calcium Magnesium Ferritin AST ALT Alkaline Phosphatase Lactate Dehydrogenase Troponin T C-Reactive Protein NT-Pro-B Natriuret Pep Total Protein Albumin 01/21/20 01/22/20 01/22/20 Unknown 03:41 03:41 WBC RBC Hgb Hct MCV RDW Plt Count Lymph % (Auto) [place] % (Auto) Lymph # Seg Neutrophils % Seg Neuts % (Manual) Lymphocytes % (Manual) Seg Neutrophils # Man Lymphocytes # (Manual) Monocytes # (Manual) PT INR D-Dimer Heparin Anti-Xa Level ABG pH 7.465 H ABG pO2 48.9 L ABG HCO3 26.6 H ABG O2 Saturation 85.7 L ABG Base Excess ABG Hemoglobin 10.4 L Oxyhemoglobin 83.5 L Sodium Chloride Carbon Dioxide BUN Creatinine Glucose POC Glucose Calcium Magnesium Ferritin 6071.0 H AST ALT Alkaline Phosphatase Lactate Dehydrogenase 963 H Troponin T C-Reactive Protein 30.00 H NT-Pro-B Natriuret Pep Total Protein Albumin 01/22/20 01/22/20 01/22/20 03:41 07:47 11:20 WBC RBC Hgb Hct MCV RDW Plt Count Lymph % (Auto) [place] % (Auto) Lymph # Seg Neutrophils % Seg Neuts % (Manual) Lymphocytes % (Manual) Seg Neutrophils # Man Lymphocytes # (Manual) Monocytes # (Manual) PT INR D-Dimer > 12256 H Heparin Anti-Xa Level ABG pH ABG pO2 66.7 L ABG HCO3 28.7 H ABG O2 Saturation 91.9 L ABG Base Excess ABG Hemoglobin 9.1 L Oxyhemoglobin 89.5 L Sodium Chloride 94.3 L Carbon Dioxide BUN 53 H Creatinine 6.5 H Glucose POC Glucose Calcium Magnesium Ferritin AST ALT Alkaline Phosphatase Lactate Dehydrogenase Troponin T C-Reactive Protein NT-Pro-B Natriuret Pep Total Protein Albumin 01/22/20 01/22/20 01/23/20 11:49 Unknown 04:55 WBC 15.1 H RBC 3.05 L Hgb 8.8 L Hct 28.3 L MCV RDW 17.8 H Plt Count 125 L Lymph % (Auto) [place] % (Auto) Lymph # Seg Neutrophils % Seg Neuts % (Manual) Lymphocytes % (Manual) Seg Neutrophils # Man Lymphocytes # (Manual) Monocytes # (Manual) PT INR D-Dimer Heparin Anti-Xa Level ABG pH 7.340 L ABG pO2 77.7 L 136.3 H ABG HCO3 27.6 H 28.8 H ABG O2 Saturation ABG Base Excess ABG Hemoglobin 9.3 L 10.9 L Oxyhemoglobin 94.2 L Sodium Chloride Carbon Dioxide BUN Creatinine Glucose POC Glucose Calcium Magnesium Ferritin AST ALT Alkaline Phosphatase Lactate Dehydrogenase Troponin T C-Reactive Protein NT-Pro-B Natriuret Pep Total Protein Albumin 01/23/20 01/23/20 01/23/20 06:23 07:07 12:23 WBC RBC Hgb Hct MCV RDW Plt Count Lymph % (Auto) [place] % (Auto) Lymph # Seg Neutrophils % Seg Neuts % (Manual) Lymphocytes % (Manual) Seg Neutrophils # Man Lymphocytes # (Manual) Monocytes # (Manual) PT INR D-Dimer Heparin Anti-Xa Level ABG pH ABG pO2 ABG HCO3 ABG O2 Saturation ABG Base Excess ABG Hemoglobin Oxyhemoglobin Sodium Chloride Carbon Dioxide BUN Creatinine Glucose POC Glucose 57 L 127 H 131 H Calcium Magnesium Ferritin AST ALT Alkaline Phosphatase Lactate Dehydrogenase Troponin T C-Reactive Protein NT-Pro-B Natriuret Pep Total Protein Albumin 01/23/20 01/23/20 01/24/20 Unknown Unknown 04:00 WBC 16.2 H RBC 3.08 L Hgb 8.9 L Hct 28.6 L MCV RDW 17.8 H Plt Count 139 L Lymph % (Auto) [place] % (Auto) Lymph # Seg Neutrophils % Seg Neuts % (Manual) Lymphocytes % (Manual) Seg Neutrophils # Man Lymphocytes # (Manual) Monocytes # (Manual) PT INR D-Dimer Heparin Anti-Xa Level < 0.10 L ABG pH ABG pO2 ABG HCO3 ABG O2 Saturation ABG Base Excess ABG Hemoglobin Oxyhemoglobin Sodium Chloride Carbon Dioxide BUN Creatinine Glucose POC Glucose Calcium Magnesium Ferritin 4195.0 H AST ALT Alkaline Phosphatase Lactate Dehydrogenase Troponin T C-Reactive Protein NT-Pro-B Natriuret Pep Total Protein Albumin 01/24/20 01/24/20 01/24/20 04:00 04:00 04:00 WBC RBC Hgb Hct MCV RDW Plt Count Lymph % (Auto) [place] % (Auto) Lymph # Seg Neutrophils % Seg Neuts % (Manual) Lymphocytes % (Manual) Seg Neutrophils # Man Lymphocytes # (Manual) Monocytes # (Manual) PT INR D-Dimer 5783.11 H Heparin Anti-Xa Level ABG pH 7.188 L* ABG pO2 70.8 L ABG HCO3 32.2 H ABG O2 Saturation 90.4 L ABG Base Excess ABG Hemoglobin 8.5 L Oxyhemoglobin 88.1 L Sodium Chloride Carbon Dioxide BUN Creatinine Glucose POC Glucose Calcium Magnesium Ferritin AST ALT Alkaline Phosphatase Lactate Dehydrogenase 474 H Troponin T C-Reactive Protein 29.80 H NT-Pro-B Natriuret Pep Total Protein Albumin 01/24/20 01/24/20 01/24/20 05:20 05:51 09:14 WBC RBC Hgb Hct MCV RDW Plt Count Lymph % (Auto) [place] % (Auto) Lymph # Seg Neutrophils % Seg Neuts % (Manual) Lymphocytes % (Manual) Seg Neutrophils # Man Lymphocytes # (Manual) Monocytes # (Manual) PT INR D-Dimer Heparin Anti-Xa Level ABG pH 7.214 L ABG pO2 71.7 L ABG HCO3 31.5 H ABG O2 Saturation 91.8 L ABG Base Excess ABG Hemoglobin 9.1 L Oxyhemoglobin 89.3 L Sodium Chloride Carbon Dioxide BUN Creatinine Glucose POC Glucose 50 L 53 L Calcium Magnesium Ferritin AST ALT Alkaline Phosphatase Lactate Dehydrogenase Troponin T C-Reactive Protein NT-Pro-B Natriuret Pep Total Protein Albumin 01/24/20 01/24/20 01/24/20 15:10 18:04 21:10 WBC RBC Hgb Hct MCV RDW Plt Count Lymph % (Auto) [place] % (Auto) Lymph # Seg Neutrophils % Seg Neuts % (Manual) Lymphocytes % (Manual) Seg Neutrophils # Man Lymphocytes # (Manual) Monocytes # (Manual) PT INR D-Dimer Heparin Anti-Xa Level ABG pH ABG pO2 ABG HCO3 ABG O2 Saturation ABG Base Excess ABG Hemoglobin Oxyhemoglobin Sodium Chloride Carbon Dioxide BUN Creatinine Glucose POC Glucose 114 H 51 L 144 H Calcium Magnesium Ferritin AST ALT Alkaline Phosphatase Lactate Dehydrogenase Troponin T C-Reactive Protein NT-Pro-B Natriuret Pep Total Protein Albumin 01/24/20 01/25/20 01/25/20 Unknown 00:32 03:50 WBC 13.0 H RBC 3.10 L Hgb 9.2 L Hct 29.0 L MCV RDW 17.7 H Plt Count Lymph % (Auto) [place] % (Auto) Lymph # Seg Neutrophils % Seg Neuts % (Manual) 92.0 H Lymphocytes % (Manual) 5.0 L Seg Neutrophils # Man 12.0 H Lymphocytes # (Manual) 0.7 L Monocytes # (Manual) PT INR D-Dimer Heparin Anti-Xa Level ABG pH 7.291 L ABG pO2 71.3 L ABG HCO3 30.6 H ABG O2 Saturation 93.6 L ABG Base Excess 3.3 H ABG Hemoglobin 8.1 L Oxyhemoglobin 91.2 L Sodium Chloride Carbon Dioxide BUN Creatinine Glucose POC Glucose 114 H Calcium Magnesium Ferritin AST ALT Alkaline Phosphatase Lactate Dehydrogenase Troponin T C-Reactive Protein NT-Pro-B Natriuret Pep Total Protein Albumin 01/25/20 01/25/20 01/25/20 04:22 06:05 17:28 WBC RBC Hgb Hct MCV RDW Plt Count Lymph % (Auto) [place] % (Auto) Lymph # Seg Neutrophils % Seg Neuts % (Manual) Lymphocytes % (Manual) Seg Neutrophils # Man Lymphocytes # (Manual) Monocytes # (Manual) PT INR D-Dimer Heparin Anti-Xa Level ABG pH 7.304 L ABG pO2 69.5 L ABG HCO3 29.7 H ABG O2 Saturation 93.2 L ABG Base Excess ABG Hemoglobin 8.7 L Oxyhemoglobin 90.7 L Sodium Chloride Carbon Dioxide BUN Creatinine Glucose POC Glucose 136 H 127 H Calcium Magnesium Ferritin AST ALT Alkaline Phosphatase Lactate Dehydrogenase Troponin T C-Reactive Protein NT-Pro-B Natriuret Pep Total Protein Albumin 01/26/20 01/26/20 01/26/20 00:20 02:31 02:31 WBC RBC Hgb Hct MCV RDW Plt Count Lymph % (Auto) [place] % (Auto) Lymph # Seg Neutrophils % Seg Neuts % (Manual) Lymphocytes % (Manual) Seg Neutrophils # Man Lymphocytes # (Manual) Monocytes # (Manual) PT INR D-Dimer Heparin Anti-Xa Level ABG pH ABG pO2 ABG HCO3 ABG O2 Saturation ABG Base Excess ABG Hemoglobin Oxyhemoglobin Sodium Chloride Carbon Dioxide BUN Creatinine Glucose POC Glucose 127 H Calcium Magnesium Ferritin 3764.0 H AST ALT Alkaline Phosphatase Lactate Dehydrogenase 393 H Troponin T C-Reactive Protein 28.60 H NT-Pro-B Natriuret Pep Total Protein Albumin 01/26/20 01/26/20 01/26/20 02:31 04:45 05:24 WBC RBC Hgb Hct MCV RDW Plt Count Lymph % (Auto) [place] % (Auto) Lymph # Seg Neutrophils % Seg Neuts % (Manual) Lymphocytes % (Manual) Seg Neutrophils # Man Lymphocytes # (Manual) Monocytes # (Manual) PT INR D-Dimer 3828.76 H Heparin Anti-Xa Level ABG pH ABG pO2 ABG HCO3 30.8 H ABG O2 Saturation ABG Base Excess 4.9 H ABG Hemoglobin 7.4 L Oxyhemoglobin 94.6 L Sodium Chloride Carbon Dioxide BUN Creatinine Glucose POC Glucose 121 H Calcium Magnesium Ferritin AST ALT Alkaline Phosphatase Lactate Dehydrogenase Troponin T C-Reactive Protein NT-Pro-B Natriuret Pep Total Protein Albumin 01/26/20 01/26/20 01/26/20 10:40 12:36 18:10 WBC RBC Hgb Hct MCV RDW Plt Count Lymph % (Auto) [place] % (Auto) Lymph # Seg Neutrophils % Seg Neuts % (Manual) Lymphocytes % (Manual) Seg Neutrophils # Man Lymphocytes # (Manual) Monocytes # (Manual) PT INR D-Dimer Heparin Anti-Xa Level ABG pH ABG pO2 ABG HCO3 ABG O2 Saturation ABG Base Excess ABG Hemoglobin Oxyhemoglobin Sodium Chloride Carbon Dioxide BUN Creatinine Glucose POC Glucose 119 H 126 H 159 H Calcium Magnesium Ferritin AST ALT Alkaline Phosphatase Lactate Dehydrogenase Troponin T C-Reactive Protein NT-Pro-B Natriuret Pep Total Protein Albumin 01/27/20 01/27/20 01/27/20 03:45 06:15 12:19 WBC RBC Hgb Hct MCV RDW Plt Count Lymph % (Auto) [place] % (Auto) Lymph # Seg Neutrophils % Seg Neuts % (Manual) Lymphocytes % (Manual) Seg Neutrophils # Man Lymphocytes # (Manual) Monocytes # (Manual) PT INR D-Dimer Heparin Anti-Xa Level ABG pH 7.307 L ABG pO2 91.1 H ABG HCO3 30.5 H ABG O2 Saturation ABG Base Excess 3.4 H ABG Hemoglobin 8.7 L Oxyhemoglobin 94.3 L Sodium Chloride Carbon Dioxide BUN Creatinine Glucose POC Glucose 147 H 164 H Calcium Magnesium Ferritin AST ALT Alkaline Phosphatase Lactate Dehydrogenase Troponin T C-Reactive Protein NT-Pro-B Natriuret Pep Total Protein Albumin 01/27/20 01/28/20 01/28/20 17:42 00:29 04:34 WBC RBC Hgb Hct MCV RDW Plt Count Lymph % (Auto) [place] % (Auto) Lymph # Seg Neutrophils % Seg Neuts % (Manual) Lymphocytes % (Manual) Seg Neutrophils # Man Lymphocytes # (Manual) Monocytes # (Manual) PT INR D-Dimer Heparin Anti-Xa Level ABG pH ABG pO2 ABG HCO3 ABG O2 Saturation ABG Base Excess ABG Hemoglobin Oxyhemoglobin Sodium Chloride Carbon Dioxide BUN Creatinine Glucose POC Glucose 149 H 178 H Calcium Magnesium Ferritin > 2000.0 H AST ALT Alkaline Phosphatase Lactate Dehydrogenase Troponin T C-Reactive Protein NT-Pro-B Natriuret Pep Total Protein Albumin 01/28/20 01/28/20 01/28/20 04:34 04:34 05:20 WBC RBC Hgb Hct MCV RDW Plt Count Lymph % (Auto) [place] % (Auto) Lymph # Seg Neutrophils % Seg Neuts % (Manual) Lymphocytes % (Manual) Seg Neutrophils # Man Lymphocytes # (Manual) Monocytes # (Manual) PT INR D-Dimer 2379 H Heparin Anti-Xa Level ABG pH 7.237 L ABG pO2 90.9 H ABG HCO3 29.1 H ABG O2 Saturation ABG Base Excess ABG Hemoglobin 7.5 L Oxyhemoglobin 94.0 L Sodium Chloride Carbon Dioxide BUN Creatinine Glucose POC Glucose Calcium Magnesium Ferritin AST ALT Alkaline Phosphatase Lactate Dehydrogenase 434 H Troponin T C-Reactive Protein 9.70 H NT-Pro-B Natriuret Pep Total Protein Albumin 01/28/20 01/28/20 01/28/20 06:21 12:25 18:17 WBC RBC Hgb Hct MCV RDW Plt Count Lymph % (Auto) [place] % (Auto) Lymph # Seg Neutrophils % Seg Neuts % (Manual) Lymphocytes % (Manual) Seg Neutrophils # Man Lymphocytes # (Manual) Monocytes # (Manual) PT INR D-Dimer Heparin Anti-Xa Level ABG pH ABG pO2 ABG HCO3 ABG O2 Saturation ABG Base Excess ABG Hemoglobin Oxyhemoglobin Sodium Chloride Carbon Dioxide BUN Creatinine Glucose POC Glucose 127 H 196 H 190 H Calcium Magnesium Ferritin AST ALT Alkaline Phosphatase Lactate Dehydrogenase Troponin T C-Reactive Protein NT-Pro-B Natriuret Pep Total Protein Albumin 01/28/20 01/29/20 01/29/20 23:35 04:00 04:00 WBC 12.6 H RBC 3.01 L Hgb 9.2 L Hct 29.3 L MCV 98 H RDW 18.1 H Plt Count Lymph % (Auto) [place] % (Auto) Lymph # Seg Neutrophils % Seg Neuts % (Manual) Lymphocytes % (Manual) Seg Neutrophils # Man Lymphocytes # (Manual) Monocytes # (Manual) PT INR D-Dimer Heparin Anti-Xa Level ABG pH ABG pO2 ABG HCO3 ABG O2 Saturation ABG Base Excess ABG Hemoglobin Oxyhemoglobin Sodium 132 L Chloride 90.1 L Carbon Dioxide BUN 50 H Creatinine 3.7 H Glucose 184 H POC Glucose 177 H Calcium Magnesium Ferritin AST 93 H ALT Alkaline Phosphatase 678 H Lactate Dehydrogenase Troponin T C-Reactive Protein NT-Pro-B Natriuret Pep Total Protein Albumin 1.7 L 01/29/20 01/29/20 01/29/20 05:03 11:53 16:44 WBC RBC Hgb Hct MCV RDW Plt Count Lymph % (Auto) [place] % (Auto) Lymph # Seg Neutrophils % Seg Neuts % (Manual) Lymphocytes % (Manual) Seg Neutrophils # Man Lymphocytes # (Manual) Monocytes # (Manual) PT INR D-Dimer Heparin Anti-Xa Level ABG pH ABG pO2 ABG HCO3 ABG O2 Saturation ABG Base Excess ABG Hemoglobin Oxyhemoglobin Sodium Chloride Carbon Dioxide BUN Creatinine Glucose POC Glucose 145 H 193 H 174 H Calcium Magnesium Ferritin AST ALT Alkaline Phosphatase Lactate Dehydrogenase Troponin T C-Reactive Protein NT-Pro-B Natriuret Pep Total Protein Albumin 01/29/20 01/30/20 01/30/20 23:38 04:25 11:45 WBC RBC Hgb Hct MCV RDW Plt Count Lymph % (Auto) [place] % (Auto) Lymph # Seg Neutrophils % Seg Neuts % (Manual) Lymphocytes % (Manual) Seg Neutrophils # Man Lymphocytes # (Manual) Monocytes # (Manual) PT INR D-Dimer Heparin Anti-Xa Level ABG pH 7.253 L ABG pO2 61.8 L ABG HCO3 29.7 H ABG O2 Saturation 90.1 L ABG Base Excess ABG Hemoglobin 8.2 L Oxyhemoglobin 87.5 L Sodium Chloride Carbon Dioxide BUN Creatinine Glucose POC Glucose 144 H 191 H Calcium Magnesium Ferritin AST ALT Alkaline Phosphatase Lactate Dehydrogenase Troponin T C-Reactive Protein NT-Pro-B Natriuret Pep Total Protein Albumin 01/30/20 01/31/20 01/31/20 18:21 00:04 03:52 WBC RBC Hgb Hct MCV RDW Plt Count Lymph % (Auto) [place] % (Auto) Lymph # Seg Neutrophils % Seg Neuts % (Manual) Lymphocytes % (Manual) Seg Neutrophils # Man Lymphocytes # (Manual) Monocytes # (Manual) PT INR D-Dimer Heparin Anti-Xa Level ABG pH ABG pO2 69.3 L ABG HCO3 29.4 H ABG O2 Saturation ABG Base Excess 3.7 H ABG Hemoglobin 10.8 L Oxyhemoglobin Sodium Chloride Carbon Dioxide BUN Creatinine Glucose POC Glucose 198 H 129 H Calcium Magnesium Ferritin AST ALT Alkaline Phosphatase Lactate Dehydrogenase Troponin T C-Reactive Protein NT-Pro-B Natriuret Pep Total Protein Albumin 01/31/20 01/31/20 01/31/20 04:00 04:16 05:12 WBC 16.7 H RBC 2.73 L Hgb 8.3 L Hct 25.7 L MCV RDW 18.0 H Plt Count Lymph % (Auto) [place] % (Auto) Lymph # Seg Neutrophils % Seg Neuts % (Manual) 92.0 H Lymphocytes % (Manual) 2.0 L Seg Neutrophils # Man 15.4 H Lymphocytes # (Manual) 0.3 L Monocytes # (Manual) 1.0 H PT INR D-Dimer Heparin Anti-Xa Level ABG pH ABG pO2 ABG HCO3 ABG O2 Saturation ABG Base Excess ABG Hemoglobin Oxyhemoglobin Sodium 130 L Chloride 90.1 L Carbon Dioxide BUN 61 H Creatinine 3.4 H Glucose 128 H POC Glucose 157 H Calcium Magnesium Ferritin AST 103 H ALT 63 H Alkaline Phosphatase 534 H Lactate Dehydrogenase Troponin T C-Reactive Protein NT-Pro-B Natriuret Pep Total Protein Albumin 2.1 L 01/31/20 11:50 WBC RBC Hgb Hct MCV RDW Plt Count Lymph % (Auto) [place] % (Auto) Lymph # Seg Neutrophils % Seg Neuts % (Manual) Lymphocytes % (Manual) Seg Neutrophils # Man Lymphocytes # (Manual) Monocytes # (Manual) PT INR D-Dimer Heparin Anti-Xa Level ABG pH ABG pO2 ABG HCO3 ABG O2 Saturation ABG Base Excess ABG Hemoglobin Oxyhemoglobin Sodium Chloride Carbon Dioxide BUN Creatinine Glucose POC Glucose 129 H Calcium Magnesium Ferritin AST ALT Alkaline Phosphatase Lactate Dehydrogenase Troponin T C-Reactive Protein NT-Pro-B Natriuret Pep Total Protein Albumin Allied health notes reviewed: nursing
--- NOTE | 2020-01-31 14:09 | Progress Note ---
Assessment and Plan Assessment and plan: Suspected COVID- 19 Patient with very elevated inflammatory markers of ferritin, CRP, LDH and d- dimer. Bilateral pneumonia. Continue antibiotics per ID ARDS. Etiology secondary to above. Acute hypoxemic respiratory failure. Continue oxygen to maintain sats greater than 92% Appears stable on HFNC; wean FiO2 then flow Chest pain Stress test neg for ischemia GERD and costochondritis in differential diagnosis Volume overload s/p hemodialysis Nephrology consulted,following Acute on Chronic diastolic CHF exacerbation Secondary to volume overload End stage renal disease on dialysis Nephrology following T2DM (type 2 diabetes mellitus) Continue continue coverage Check hemoglobin A1c Hypertension Continue antihypertensives Hyponatremia Secondary to increased volume--dilutional DVT prophylaxis On heparin and GI prophylaxis 01/11 Covid 19 survey testing sent, nasal swab done 01/10 01/12 Patient has acute resp failure. may need Oxygen on dc. awaiting Covid result 01/13 Still has shortness of breath, awaiting Covid test. 01/14 Pt still dyspneic, await covid testing, Pulse ox 83% 01/16/2020. Patient remains dyspneic. Follow-up COVID testing. 01/17/2020. Patient still requiring large amounts of oxygen. Patient currently with 15 L satting at 95%. Patient with increased inflammatory markers. Follow- up chest x-ray today. 01/18/20--Patient still requiring large amounts of oxygen. Patient currently with 15 L %. Patient with increased inflammatory markers. 01/19/2020 very elevated inflammatory markers- ferritin> 2000, CRP >24, LDH> 600, d-dimer >1000 putting her at high risk for ARDS. Continue hydroxychloroquine 400 mg PO BID for 1 day then 200 mg PO BID for 4 days (total 5 days) with zinc 220 mg PO qday. Continue ceftriaxone. ContinueCOVID isolationprecautions pe r [facility] protocol. Continue serial Ferritin, LDH, D-Dimer, CRP every 48h 01/20/2020. Inflammatory markers remain elevated with ferritin 1826, LDH 496, CRP 19.3, and d-dimer 2072. Patient requiring high flow nasal cannula 40L, FiO2 80%. Pulmonary following. Continue antibiotics and Plaquenil. Continue COVID isolationprecautions per [facility] protocol. Patient has a high risk mortality and remains guarded. 01/21/2020. Continue antibiotics and Plaquenil. Continue COVID isolationprecautions per [facility] protocol. Maintain sats of 88% and greater. Still on HFNC, O2 weaned to 95% overnight. Sats documented at 98%. Pulmonary following and reports If patient progresses could give bipap a one hour trial to see if there is improvement, repeat ABG, if not would suggest elective intubation 01/22/2020 Patient still critically ill. Yesterday 01/20 had cardiopulmonary arrest so now intubated in ICU. Prognosis guarded. 01/23/2020 still critically ill. No more fever. Continue vent management. 01/24/20 Still critically ill, remain on vent. Continue current management. Will call . 01/25/20 Patient still critically ill. I called Davis Hernandez and gave update. He wants DNR status and says he will request withdrawal of care if patient does not get better after weekend. I discussed with Assisted Living Nursing Director. 01/26/20 patient still intubated, on vent. She means a DNR order. Discussed with Nurse 01/26 patient still critically ill, vent dependent. 01/27 patient still intubated, on vent. On levophed to keep MAP>65mmhg 01/29/2020 patient still intubated on mechanical ventilation. AC mode ventila tion with rate 20, tidal volume 400, FiO2 45% and PEEP 12. patient with no fever. Patient currently with sedation of propofol. Patient received hemodialysis yesterday with approximately 3 L removed. 01/30/2020. Patient still on mechanical ventilation. AC mode ventilation with rate 20, tidal volume 400, FiO2 45% and PEEP 8. Patient with elevated alkaline phosphatase. Check abdominal ultrasound. 01/31/2020. Patient still on mechanical ventilation. PSV mode ventilation with FiO2 50% and PEEP 8 and PS=12. Follow-up abdominal ultrasound for elevated alkaline phosphatase The high probability of a clinically significant, sudden or life threatening deterioration of the [immunologic and respiratory] system(s) required my full and direct attention, intervention and personal management. The aggregate critical care time was [31] minutes. This time is in addition to time spent performing reported procedures but includes the following: [x] Data Review and interpretation [x] Patient assessment and monitoring of vital signs [x] Documentation [x] Medication orders and management History Interval history: Patient on mechanical ventilation. PUI?: Yes COVID19: Positive Hospitalist Physical - Constitutional Vitals: Temp Pulse Resp BP Pulse Ox 98.8 F 102 H 18 84/39 89 01/31/20 12:00 01/31/20 12:52 01/31/20 12:52 01/31/20 12:52 01/31/20 12:52 General appearance: Present: no acute distress - EENT Eyes: Present: PERRL, EOM intact ENT: hearing intact, clear oral mucosa, dentition normal - Neck Neck: Present: supple, normal ROM - Respiratory Respiratory effort: normal Respiratory: bilateral: CTA - Cardiovascular Rhythm: regular Heart Sounds: Present: S1 & S2. Absent: gallop, rub - Extremities Extremities: no ischemia, No edema, Full ROM - Abdominal General gastrointestinal: soft, non-tender, non-distended, normal bowel sounds - Integumentary Integumentary: Present: clear, warm, dry - Neurologic Neurologic: CNII-XII intact, moves all extremities BREEZY score - Breezy Score Age > 65: (1) Yes Aspirin use within the Past 7 Days: (1) Yes 3 or more CAD Risk Factors: (1) Yes 2 or more Angina events in past 24 hrs: (1) Yes Known CAD with more than 50% Stenosis: (0) No Elevated Cardiac Markers: (0) No ST Deviation Greater than 0.5mm: (0) No BREEZY Score: 4 Results - Labs CBC & Chem 7: 01/31/20 04:16 01/31/20 04:00 Labs: Laboratory Last Values WBC 16.7 K/mm3 (4.5-11.0) H 01/31/20 04:16 RBC 2.73 M/mm3 (3.65-5.03) L 01/31/20 04:16 Hgb 8.3 gm/dl (10.1-14.3) L 01/31/20 04:16 Hct 25.7 % (30.3-42.9) L 01/31/20 04:16 MCV 94 fl (79-97) 01/31/20 04:16 MCH 30 pg (28-32) 01/31/20 04:16 MCHC 32 % (30-34) 01/31/20 04:16 RDW 18.0 % (13.2-15.2) H 01/31/20 04:16 Plt Count 350 K/mm3 (140-440) 01/31/20 04:16 Lymph % (Auto) 3.8 % (13.4-35.0) L 01/18/20 06:25 [place] % (Auto) 6.5 % (0.0-7.3) 01/18/20 06:25 Eos % (Auto) 0.8 % (0.0-4.3) 01/18/20 06:25 Baso % (Auto) 0.1 % (0.0-1.8) 01/18/20 06:25 Lymph # 0.2 K/mm3 (1.2-5.4) L 01/18/20 06:25 [place] # 0.4 K/mm3 (0.0-0.8) 01/18/20 06:25 Eos # 0.0 K/mm3 (0.0-0.4) 01/18/20 06:25 Baso # 0.0 K/mm3 (0.0-0.1) 01/18/20 06:25 Add Manual Diff Complete 01/31/20 04:16 Total Counted 100 01/31/20 04:16 Seg Neutrophils % Power Plant Installer 01/31/20 04:16 Seg Neuts % (Manual) 92.0 % (40.0-70.0) H 01/31/20 04:16 Band Neutrophils % 0 % 01/31/20 04:16 Lymphocytes % (Manual) 2.0 % (13.4-35.0) L 01/31/20 04:16 Reactive Lymphs % (Man) 0 % 01/31/20 04:16 Monocytes % (Manual) 6.0 % (0.0-7.3) 01/31/20 04:16 Eosinophils % (Manual) 0 % (0.0-4.3) 01/31/20 04:16 Basophils % (Manual) 0 % (0.0-1.8) 01/31/20 04:16 Metamyelocytes % 0 % 01/31/20 04:16 Myelocytes % 0 % 01/31/20 04:16 Promyelocytes % 0 % 01/31/20 04:16 Blast Cells % 0 % 01/31/20 04:16 Nucleated RBC % Not Reportable 01/31/20 04:16 Seg Neutrophils # 5.0 K/mm3 (1.8-7.7) 01/18/20 06:25 Seg Neutrophils # Man 15.4 K/mm3 (1.8-7.7) H 01/31/20 04:16 Band Neutrophils # 0.0 K/mm3 01/31/20 04:16 Lymphocytes # (Manual) 0.3 K/mm3 (1.2-5.4) L 01/31/20 04:16 Abs React Lymphs (Man) 0.0 K/mm3 01/31/20 04:16 Monocytes # (Manual) 1.0 K/mm3 (0.0-0.8) H 01/31/20 04:16 Eosinophils # (Manual) 0.0 K/mm3 (0.0-0.4) 01/31/20 04:16 Basophils # (Manual) 0.0 K/mm3 (0.0-0.1) 01/31/20 04:16 Metamyelocytes # 0.0 K/mm3 01/31/20 04:16 Myelocytes # 0.0 K/mm3 01/31/20 04:16 Promyelocytes # 0.0 K/mm3 01/31/20 04:16 Blast Cells # 0.0 K/mm3 01/31/20 04:16 WBC Morphology Not Reportable 01/31/20 04:16 Hypersegmented Neuts Not Reportable 01/31/20 04:16 Hyposegmented Neuts Not Reportable 01/31/20 04:16 Hypogranular Neuts Not Reportable 01/31/20 04:16 Smudge Cells Not Reportable 01/31/20 04:16 Toxic Granulation Not Reportable 01/31/20 04:16 Toxic Vacuolation Not Reportable 01/31/20 04:16 Dohle Bodies Not Reportable 01/31/20 04:16 Pelger-Huet Anomaly Not Reportable 01/31/20 04:16 Armando Rods Not Reportable 01/31/20 04:16 Platelet Estimate Consistent w auto 01/31/20 04:16 Clumped Platelets Not Reportable 01/31/20 04:16 Plt Clumps, EDTA Not Reportable 01/31/20 04:16 Large Platelets Not Reportable 01/31/20 04:16 Giant Platelets Not Reportable 01/31/20 04:16 Platelet Satelliting Not Reportable 01/31/20 04:16 Plt Morphology Comment Not Reportable 01/31/20 04:16 RBC Morphology Not Reportable 01/31/20 04:16 Dimorphic RBCs Not Reportable 01/31/20 04:16 Polychromasia Few 01/31/20 04:16 Hypochromasia Not Reportable 01/31/20 04:16 Poikilocytosis Not Reportable 01/31/20 04:16 Anisocytosis Few 01/31/20 04:16 Microcytosis Not Reportable 01/31/20 04:16 Macrocytosis Not Reportable 01/31/20 04:16 Spherocytes Rare 01/31/20 04:16 Pappenheimer Bodies Not Reportable 01/31/20 04:16 Sickle Cells Not Reportable 01/31/20 04:16 Target Cells Not Reportable 01/31/20 04:16 Tear Drop Cells Not Reportable 01/31/20 04:16 Ovalocytes Not Reportable 01/31/20 04:16 Helmet Cells Not Reportable 01/31/20 04:16 [place] Bodies Not Reportable 01/31/20 04:16 [place] Rings Not Reportable 01/31/20 04:16 Karen Cells Not Reportable 01/31/20 04:16 Bite Cells Not Reportable 01/31/20 04:16 Crenated Cell Not Reportable 01/31/20 04:16 Elliptocytes Not Reportable 01/31/20 04:16 Acanthocytes (Spur) Not Reportable 01/31/20 04:16 Rouleaux Not Reportable 01/31/20 04:16 Hemoglobin C Crystals Not Reportable 01/31/20 04:16 Schistocytes Few 01/31/20 04:16 Malaria parasites Not Reportable 01/31/20 04:16 Ney Bodies Not Reportable 01/31/20 04:16 Hem Pathologist Commnt No 01/31/20 04:16 PT 15.6 Sec. (12.2-14.9) H 01/09/20 12:55 INR 1.22 (0.87-1.13) H 01/09/20 12:55 APTT 31.5 Sec. (24.2-36.6) 01/09/20 12:55 D-Dimer 2379 ng/mlDDU (0-234) H 01/28/20 04:34 Heparin Anti-Xa Level < 0.10 U.I./ml (0.3-0.7) L 01/23/20 Unknown ABG pH 7.353 pH Units (7.350-7.450) 01/31/20 03:52 ABG pCO2 54.2 mm Hg 01/31/20 03:52 ABG pO2 69.3 mm Hg (80.0-90.0) L 01/31/20 03:52 ABG HCO3 29.4 mmol/L (20.0-26.0) H 01/31/20 03:52 ABG O2 Saturation 98.2 % (95.0-99.0) 01/31/20 03:52 ABG O2 Content 6.6 (0.0-44) 01/31/20 03:52 ABG Base Excess 3.7 mmol/L (-2.0-3.0) H 01/31/20 03:52 ABG Hemoglobin 10.8 gm/dl (12.0-16.0) L 01/31/20 03:52 ABG Carboxyhemoglobin 2.4 % (0.0-5.0) 01/31/20 03:52 ABG Methemoglobin 0.5 % (0.0-1.5) 01/31/20 03:52 Oxyhemoglobin 95.3 % (95.0-99.0) 01/31/20 03:52 FiO2 45 % 01/31/20 03:52 Sodium 130 mmol/L (137-145) L 01/31/20 04:00 Potassium 3.8 mmol/L (3.6-5.0) 01/31/20 04:00 Chloride 90.1 mmol/L (98-107) L 01/31/20 04:00 Carbon Dioxide 26 mmol/L (22-30) 01/31/20 04:00 Anion Gap 18 mmol/L 01/31/20 04:00 BUN 61 mg/dL (7-17) H 01/31/20 04:00 Creatinine 3.4 mg/dL (0.7-1.2) H 01/31/20 04:00 Estimated GFR 16 ml/min 01/31/20 04:00 BUN/Creatinine Ratio 18 % 01/31/20 04:00 Glucose 128 mg/dL (65-100) H 01/31/20 04:00 POC Glucose 129 (70-105) H 01/31/20 11:50 Hemoglobin A1c 5.0 % (4-6) 01/10/20 06:54 Calcium 8.8 mg/dL (8.4-10.2) 01/31/20 04:00 Phosphorus 3.30 mg/dL (2.5-4.5) 01/12/20 16:01 Magnesium 2.00 mg/dL (1.7-2.3) 01/13/20 06:11 Ferritin > 2000.0 ng/mL (13.0-400.0) H 01/28/20 04:34 Total Bilirubin 0.50 mg/dL (0.1-1.2) 01/31/20 04:00 AST 103 units/L (5-40) H 01/31/20 04:00 ALT 63 units/L (7-56) H 01/31/20 04:00 Alkaline Phosphatase 534 units/L (35-129) H 01/31/20 04:00 Lactate Dehydrogenase 434 units/L (91-180) H 01/28/20 04:34 Troponin T 0.315 ng/mL (0.00-0.029) H* 01/10/20 06:54 C-Reactive Protein 9.70 mg/dL (0.00-1.30) H 01/28/20 04:34 NT-Pro-B Natriuret Pep 54909 pg/mL (0-900) H 01/09/20 12:55 Total Protein 7.0 g/dL (6.3-8.2) 01/31/20 04:00 Albumin 2.1 g/dL (3.9-5) L 01/31/20 04:00 Albumin/Globulin Ratio 0.4 % 01/31/20 04:00 Triglycerides 56 mg/dL (2-149) 01/30/20 04:04 Cholesterol 123 mg/dL (50-199) 01/09/20 12:55 LDL Cholesterol Direct 66 mg/dL (50-130) 01/09/20 12:55 HDL Cholesterol 47 mg/dL (40-59) 01/09/20 12:55 Cholesterol/HDL Ratio 2.61 % 01/09/20 12:55 Hepatitis A IgM Ab Non-reactive (NonReactive) 01/21/20 23:40 Hep Bs Antigen Non-reactive (Negative) 01/21/20 23:40 Hep B Core IgM Ab Non-reactive (NonReactive) 01/21/20 23:40 Hepatitis C Antibody Non-reactive (NonReactive) 01/21/20 23:40 Miscellaneous Test See scanned result 01/11/20 Unknown Miscellaneous Test See scanned result 01/11/20 Unknown Microbiology: Microbiology 01/25/20 Unknown Peripheral/Venous Blood Culture - Final NO GROWTH AFTER 5 DAYS 01/25/20 Unknown Peripheral/Venous Blood Culture - Final NO GROWTH AFTER 5 DAYS Pleitez/IV: Voiding Method Toilet IV Catheter Type [Left Chest] Infusaport IV Catheter Type [Right Peripheral IV External Jugular] IV Catheter Type [Left INT / Saline Lock External Jugular] IV Catheter Type [Left Upper IVAD / Port arm] Active Medications - Current Medications Current Medications: Generic Name Dose Route Start Last Admin Trade Name Freq PRN Reason Stop Dose Admin Acetaminophen 650 mg 01/09/20 16:33 01/27/20 12:26 Tylenol PO 650 mg Q4H PRN Administration Pain MILD(1-3)/Fever >100.5/MEANS Lipase/Protease/Amylase 1 each 01/23/20 14:[address] 10,500 Unit FEEDTUBE PRN PRN For Clogged Feeding Tube Atorvastatin Calcium 40 mg 01/09/20 22:00 01/30/20 22:06 Lipitor PO 40 mg QHS PHILLY Administration Cyclobenzaprine HCl 5 mg 01/09/20 16:27 01/10/20 23:17 Flexeril PO 5 mg QHS PRN Administration Muscle Spasm Dextrose 50 ml 01/23/20 07:26 01/24/20 18:29 D50w (25gm) Syringe IV 50 ml Q30MIN PRN Administration BLOOD GLUCOSE < 70 Dextrose 25 ml 01/24/20 08:58 01/24/20 13:41 D50w (25gm) Syringe IV 25 ml Q4H PRN Administration BG < 80 MG/DL Docusate Sodium 100 mg 01/25/20 22:00 01/31/20 10:28 Colace PO Not Given BID PHILLY Enoxaparin Sodium 80 mg 01/23/20 12:00 01/31/20 11:04 Enoxaparin SUB-Q 80 mg Q24HR PHILLY Administration Famotidine 20 mg 01/09/20 22:00 01/31/20 11:00 Pepcid PO 20 mg DAILY PHILLY Administration Norepinephrine 4 mg in 250 mls @ 7.5 mls/hr 01/21/20 18:00 01/31/20 11:04 Levophed Drip 4 Mg/Ns 250 Ml IV 2 mcg/min TITR PHILLY 7.5 mls/hr Titration Protocol 2 MCG/MIN Propofol 1,000 mg in 100 mls @ 2.265 mls/hr 01/22/20 09:00 01/30/20 14:25 Diprivan 10 Mg/Ml IV 0 mcg/kg/min TITR PHILLY 0 mls/hr Titration Protocol 5 MCG/KG/MIN Sodium Chloride 100 mls @ 999 mls/hr 01/26/20 07:54 01/30/20 10:22 Nacl 0.9% IV 999 mls/hr SILVERIO PRN Administration Hypotension Lorazepam 2 mg 01/23/20 15:36 Ativan IV Q10MIN PRN Agitation Morphine Sulfate 1 mg 01/30/20 11:21 Morphine IV Q4H PRN Pain, Moderate (4-6) Ondansetron HCl 4 mg 01/09/20 16:33 01/20/20 10:19 Zofran IV 4 mg Q8H PRN Administration Nausea And Vomiting Simple Syrup 15 ml 01/23/20 14:28 Simple Syrup FEEDTUBE PRN PRN Hypoglycemia Simple Syrup 30 ml 01/23/20 14:28 Simple Syrup FEEDTUBE PRN PRN Hypoglycemia Sodium Bicarbonate 325 mg 01/23/20 14:28 Sodium Bicarbonate FEEDTUBE PRN PRN For Clogged Feeding Tube Sodium Chloride 10 ml 01/09/20 22:00 01/31/20 11:05 Sodium Chloride Flush Syringe 10 Ml IV 10 ml BID PHILLY Administration Sodium Chloride 10 ml 01/09/20 16:33 Sodium Chloride Flush Syringe 10 Ml IV PRN PRN LINE FLUSH Valsartan 80 mg 01/10/20 10:00 01/31/20 11:04 Diovan PO Not Given DAILY PHILLY Nutrition/Malnutrition Assess - Dietary Evaluation Nutrition/Malnutrition Findings: Nutrition Notes Start: 01/17/20 13:49 Freq: Status: Active Protocol: Document 01/29/20 08:55 LP (Rec: 01/29/20 08:58 LP [id number]) Nutrition Notes Initial or Follow up Reassessment Current Diagnosis CKD (stage V CKD),Diabetes, Hypertension,Heart Failure, Respiratory Failure Other Pertinent Diagnosis on HD, Bilat pneu, COVID-19 (+ ) Current Diet Nepro 1.8 at 35ml/hr Labs/Tests Na 132 K 44 BUN 50 Cr 3.7 BG 184 Pertinent Medications Propofol at 6.79 Height 5 ft 6 in Weight 78 kg [place] Body Weight (kg) 59.09 BMI 27.7 Weight Status Overweight Subjective/Other Information Nepro continue at goal rate and tolerating. Percent of energy/protein needs met: 95%/75% Burn Absent Trauma Absent Current % PO Negligible Minimum of two criteria Yes Interpretation of Weight Loss (non- 5% in 1 month severe) Fluid Accumulation Mild (non-severe) Reduced Monument Installer Strength Measurably Reduced (severe) #1 Nutrition Diagnosis Malnutrition Diagnosis Progress(for reassessment Continues documentation) Is patient on ventilator? No Is Patient Ambulatory and/or Out of Bed No REE-([facility]-confined to bed) [phone] Calculation Used for Recommendations [facility] Additional Notes Protein: 91-151g (1.2-2g/kg) Fluid: per MD Nutrition Intervention Change Diet Order: Continue TF Nutrition Support: Nepro 1.8 at 35ml/hr (goal rate) Flush 150ml q4h Kcal 1,512 Protein (gm) 68 Fluid (mL) 611 Goal #1 TF tolerance Goal #2 Meet at least 75% of energy and protein needs via TF Anticipated Discharge Needs: unable to determine at this time Follow-Up By: 01/31/20 Additional Comments Follow for TF tolerance
[2020-01-31] MEDS ORDERED: LACTATED RINGERS 1,000 ML IV SCH (15:00)
--- NOTE | 2020-01-31 16:53 | Progress Note ---
Assessment and Plan - Patient Problems (1) Volume overload Current Visit: Yes Status: Acute Qualifiers: Plan to address problem: end-stage renal disease with fluid overload. Improved with fluid removal on dialysis. We will evaluate volume status tomorrow. May need to do dialysis on Tuesday again (2) Pneumonia due to COVID-19 virus Current Visit: Yes Status: Acute Plan to address problem: continue treatment per infectious disease. (3) Anemia in CKD (chronic kidney disease) Current Visit: Yes Status: Acute Qualifiers: Chronic kidney disease stage: on chronic dialysis Qualified Code(s): N18.6 - End stage renal disease; D63.1 - Anemia in chronic kidney disease; Z99.2 - Dependence on renal dialysis Plan to address problem: give erythropoietin on dialysis (4) T2DM (type 2 diabetes mellitus) Current Visit: Yes Status: Acute Qualifiers: Diabetes mellitus care home insulin use: unspecified care home insulin use status Plan to address problem: blood sugar management by primary attending. (5) Acute respiratory failure with hypoxia Current Visit: No Status: Acute Plan to address problem: ventilator management by pulmonary/[place] (6) Hyponatremia Current Visit: No Status: Acute Plan to address problem: hypervolemic hyponatremia. Follow-up sodium with fluid removal on dialysis (7) Hypertensive chronic kidney disease with stage 5 chronic kidney disease or end stage renal disease Current Visit: No Status: Chronic Plan to address problem: patient is off of vasopressor. Follow blood pressure current medications (8) Sepsis with hypotension Current Visit: Yes Status: Acute Plan to address problem: Off of vasopressor. Monitor closely Subjective Date of service: 01/31/20 Principal diagnosis: Pneumonia Interval history: Patient is intubated on the ventilator in intensive care unit. Off vasopressor. Patient was not examined today due to Personal protective equipment conservation in current Covid19 Pandemic. Based exam on that of Hospitalists and other consultants PUI?: Yes COVID19: Positive Objective - Exam Narrative Exam: elderly -[place] female lying in bed intubated on the ventilator Patient was not examined today due to Personal protective equipment conservation in current Covid19 Pandemic. Based exam on that of Hospitalists and other cons ultants - Vital Signs Vital signs: Vital Signs - 12hr 01/31/20 01/31/20 01/31/20 05:01 05:31 05:45 Temperature Pulse Rate 96 H 94 H 95 H Respiratory 18 23 19 Rate Blood Pressure 107/54 113/57 113/57 O2 Sat by Pulse 94 95 94 Oximetry 01/31/20 01/31/20 01/31/20 06:01 06:15 06:31 Temperature Pulse Rate 94 H 96 H 97 H Respiratory 20 19 18 Rate Blood Pressure 117/55 129/58 123/59 O2 Sat by Pulse 95 95 95 Oximetry 01/31/20 01/31/20 01/31/20 06:45 07:01 07:15 Temperature Pulse Rate 97 H 97 H 99 H Respiratory 21 22 21 Rate Blood Pressure 131/63 131/58 131/63 O2 Sat by Pulse 95 95 95 Oximetry 01/31/20 01/31/20 01/31/20 07:31 07:45 08:00 Temperature 98.9 F Pulse Rate 97 H 96 H 96 H Respiratory 16 21 Rate Blood Pressure 124/56 124/56 O2 Sat by Pulse 95 95 94 Oximetry 01/31/20 01/31/20 01/31/20 08:01 08:15 08:31 Temperature Pulse Rate 99 H 98 H 97 H Respiratory 21 22 21 Rate Blood Pressure 135/57 135/57 122/58 O2 Sat by Pulse 95 95 96 Oximetry 01/31/20 01/31/20 01/31/20 08:45 09:00 09:01 Temperature Pulse Rate 97 H 95 H 94 H Respiratory 18 14 Rate Blood Pressure 122/58 117/75 137/61 O2 Sat by Pulse 97 92 Oximetry 01/31/20 01/31/20 01/31/20 09:15 09:17 09:31 Temperature Pulse Rate 97 H 98 H 99 H Respiratory 17 25 H 14 Rate Blood Pressure 137/61 137/61 132/53 O2 Sat by Pulse 92 95 93 Oximetry 01/31/20 01/31/20 01/31/20 09:45 10:01 10:15 Temperature Pulse Rate 99 H 102 H 100 H Respiratory 15 13 13 Rate Blood Pressure 132/53 128/44 128/44 O2 Sat by Pulse 93 Oximetry 01/31/20 01/31/20 01/31/20 10:31 10:45 11:01 Temperature Pulse Rate 99 H 98 H 99 H Respiratory 13 13 15 Rate Blood Pressure 105/42 98/42 95/41 O2 Sat by Pulse 93 91 93 Oximetry 01/31/20 01/31/20 01/31/20 11:04 11:15 11:31 Temperature Pulse Rate 102 H 98 H 101 H Respiratory 12 12 Rate Blood Pressure 95/41 98/40 96/42 O2 Sat by Pulse 92 92 Oximetry 01/31/20 01/31/20 01/31/20 11:45 12:00 12:15 Temperature 98.8 F Pulse Rate 102 H 102 H 103 H Respiratory 12 12 12 Rate Blood Pressure 92/44 99/45 99/45 O2 Sat by Pulse 91 91 89 Oximetry 01/31/20 01/31/20 01/31/20 12:31 12:45 12:52 Temperature Pulse Rate 102 H 103 H 102 H Respiratory 15 12 18 Rate Blood Pressure 84/39 97/46 84/39 O2 Sat by Pulse 90 94 89 Oximetry 01/31/20 01/31/20 01/31/20 13:01 13:15 13:30 Temperature Pulse Rate 102 H 100 H 100 H Respiratory 11 L 14 10 L Rate Blood Pressure 91/43 79/36 81/38 O2 Sat by Pulse 94 93 92 Oximetry 01/31/20 01/31/20 01/31/20 13:45 14:01 14:15 Temperature Pulse Rate 100 H 108 H 109 H Respiratory 12 10 L 12 Rate Blood Pressure 71/40 103/43 98/48 O2 Sat by Pulse 92 92 93 Oximetry 01/31/20 01/31/20 01/31/20 14:30 14:45 15:00 Temperature Pulse Rate 110 H 110 H 106 H Respiratory 14 10 L 12 Rate Blood Pressure 99/49 94/42 84/41 O2 Sat by Pulse 93 93 93 Oximetry 01/31/20 01/31/20 01/31/20 15:15 15:31 15:45 Temperature Pulse Rate 64 76 79 Respiratory 16 8 L 10 L Rate Blood Pressure 84/41 96/38 96/38 O2 Sat by Pulse 92 92 89 Oximetry 01/31/20 01/31/20 16:00 16:17 Temperature 98.3 F Pulse Rate 83 82 Respiratory 23 25 H Rate Blood Pressure 104/42 104/42 O2 Sat by Pulse 93 95 Oximetry - Lab 01/31/20 04:16 01/31/20 04:00 Most recent lab results ABG pH 7.353 pH Units (7.350-7.450) 01/31/20 03:52 ABG pCO2 54.2 mm Hg 01/31/20 03:52 ABG pO2 69.3 mm Hg (80.0-90.0) L 01/31/20 03:52 ABG HCO3 29.4 mmol/L (20.0-26.0) H 01/31/20 03:52 ABG O2 Saturation 98.2 % (95.0-99.0) 01/31/20 03:52 Calcium 8.8 mg/dL (8.4-10.2) 01/31/20 04:00 Phosphorus 3.30 mg/dL (2.5-4.5) 01/12/20 16:01 Magnesium 2.00 mg/dL (1.7-2.3) 01/13/20 06:11 Medications & Allergies - Medications Allergies/Adverse Reactions: Allergies cheese Allergy (Mild, Verified 12/20/19 10:19) Itching iodine Allergy (Mild, Verified 12/20/19 10:16) Anaphylaxis clonidine Allergy (Verified 12/19/19 04:13) Anaphylaxis shellfish derived Adverse Reaction (Verified 12/19/19 04:13) Angioedema Home Medications: Home Medications Medication Instructions Recorded Confirmed Last Taken Type Atorvastatin [Lipitor] 40 mg PO DAILY 11/06/19 01/13/20 01/02/20 10:00 History Acetaminophen [Acetaminophen 8 650 mg PO Q8H PRN #30 tablet.er 11/21/19 01/13/20 01/03/20 22:00 Rx Hour] Cyclobenzaprine HCl [Flexeril 5 MG 5 mg PO QHS PRN #20 tab 11/21/19 01/13/20 01/01/20 22:00 Rx TAB] HYDROcodone/APAP 5-325 [[place] 1 each PO Q6HR PRN #18 tablet 12/13/19 01/13/20 01/01/20 22:00 Rx 5-325 mg TAB] amLODIPine 10 mg PO DAILY 90 Days #90 tab 12/18/19 01/13/20 01/01/20 10:00 Rx Ibuprofen 800 mg PO TID 12/19/19 01/13/20 01/02/20 22:00 History Magnesium Oxide [Mag-Ox] 400 mg PO QDAY 12/19/19 01/13/20 01/03/20 10:00 History diphenhydrAMINE [Benadryl CAP] 25 mg PO Q8HR PRN 12/19/19 01/13/20 01/03/20 21:00 History labetaloL [Labetalol 100mg TAB] 100 mg PO Q8H #90 tablet 12/21/19 01/13/20 01/02/20 10:00 Rx traMADoL [Ultram 50 MG tab] 50 mg PO Q6HR PRN #20 tablet 12/29/19 01/13/20 0 12/31/19 10:00 Rx DULoxetine [Cymbalta] 30 mg PO QDAY #30 capsule 01/04/20 01/13/20 Unknown Rx Valsartan [Diovan] 80 mg PO DAILY #30 tablet 01/04/20 01/13/20 Unknown Rx Active Medications: Generic Name Dose Route Start Last Admin Trade Name Freq PRN Reason Stop Dose Admin Acetaminophen 650 mg 01/09/20 16:33 01/27/20 12:26 Tylenol PO 650 mg Q4H PRN Administration Pain MILD(1-3)/Fever >100.5/MEANS Lipase/Protease/Amylase 1 each 01/23/20 14:[address] 10,500 Unit FEEDTUBE PRN PRN For Clogged Feeding Tube Atorvastatin Calcium 40 mg 01/09/20 22:00 01/30/20 22:06 Lipitor PO 40 mg QHS PHILLY Administration Cyclobenzaprine HCl 5 mg 01/09/20 16:27 01/10/20 23:17 Flexeril PO 5 mg QHS PRN Administration Muscle Spasm Dextrose 50 ml 01/23/20 07:26 01/24/20 18:29 D50w (25gm) Syringe IV 50 ml Q30MIN PRN Administration BLOOD GLUCOSE < 70 Dextrose 25 ml 01/24/20 08:58 01/24/20 13:41 D50w (25gm) Syringe IV 25 ml Q4H PRN Administration BG < 80 MG/DL Docusate Sodium 100 mg 01/25/20 22:00 01/31/20 10:28 Colace PO Not Given BID PHILLY Enoxaparin Sodium 80 mg 01/23/20 12:00 01/31/20 11:04 Enoxaparin SUB-Q 80 mg Q24HR PHILLY Administration Famotidine 20 mg 01/09/20 22:00 01/31/20 11:00 Pepcid PO 20 mg DAILY PHILLY Administration Norepinephrine 4 mg in 250 mls @ 7.5 mls/hr 01/21/20 18:00 01/31/20 16:00 Levophed Drip 4 Mg/Ns 250 Ml IV 12 mcg/min TITR PHILLY 45 mls/hr Titration Protocol 2 MCG/MIN Propofol 1,000 mg in 100 mls @ 2.265 mls/hr 01/22/20 09:00 01/30/20 14:25 Diprivan 10 Mg/Ml IV 0 mcg/kg/min TITR PHILLY 0 mls/hr Titration Protocol 5 MCG/KG/MIN Sodium Chloride 100 mls @ 999 mls/hr 01/26/20 07:54 01/30/20 10:22 Nacl 0.9% IV 999 mls/hr SILVERIO PRN Administration Hypotension Lorazepam 2 mg 01/23/20 15:36 Ativan IV Q10MIN PRN Agitation Morphine Sulfate 1 mg 01/30/20 11:21 Morphine IV Q4H PRN Pain, Moderate (4-6) Ondansetron HCl 4 mg 01/09/20 16:33 01/20/20 10:19 Zofran IV 4 mg Q8H PRN Administration Nausea And Vomiting Simple Syrup 15 ml 01/23/20 14:28 Simple Syrup FEEDTUBE PRN PRN Hypoglycemia Simple Syrup 30 ml 01/23/20 14:28 Simple Syrup FEEDTUBE PRN PRN Hypoglycemia Sodium Bicarbonate 325 mg 01/23/20 14:28 Sodium Bicarbonate FEEDTUBE PRN PRN For Clogged Feeding Tube Sodium Chloride 10 ml 01/09/20 22:00 01/31/20 11:05 Sodium Chloride Flush Syringe 10 Ml IV 10 ml BID PHILLY Administration Sodium Chloride 10 ml 01/09/20 16:33 Sodium Chloride Flush Syringe 10 Ml IV PRN PRN LINE FLUSH Valsartan 80 mg 01/10/20 10:00 01/31/20 11:04 Diovan PO Not Given DAILY PHILLY
[2020-01-31] MEDS: NORepinephrine/NS 4 MG-250 ML 4 MG/250 ML BAG IV SCH (16:57)
[2020-01-31] MEDS: DEXTROSE 50% IN WATER (25GM) 50 ML SYRINGE IV PRN (18:10)
[2020-02-01 04:44] LABS: Hematocrit 25.2 % (30.3-42.9); Mean Corpuscular HGB Conc 32 % (30-34); Mean Corpuscular Volume 94 fl (79-97); Platelet Count 368 K/mm3 (140-440); Red Blood Count 2.68 M/mm3 (3.65-5.03); Red Cell Distribution Width 18.4 % (13.2-15.2)
[2020-02-01 04:49] LABS: Calcium 8.6 mg/dL (8.4-10.2)
[2020-02-01 05:24] LABS: ABG HCO3 26.8 mmol/L (20.0-26.0); ABG Methemoglobin 0.6 % (0.0-1.5); ABG Oxygen Saturation 96.8 % (95.0-99.0); ABG PCO2 57.1 mm Hg; ABG PH 7.29 pH Units (7.350-7.450); ABG PO2 86.9 mm Hg (80.0-90.0)
[2020-02-01] MEDS ORDERED: SODIUM CHLORIDE 0.9% 100 ML IV PRN (09:47)
[2020-02-01] MEDS: FAMOTIDINE 20 MG TAB PO SCH (10:16)
[2020-02-01] MEDS: ENOXAPARIN 80 MG/0.8 ML INJ SUB-Q SCH (10:16)
[2020-02-01] MEDS: VALSARTAN 40 MG TAB PO SCH (10:17)
[2020-02-01] MEDS: DOCUSATE SODIUM 100 MG/10 ML ORAL LIQD PO SCH ×2 (10:21→22:07)
--- NOTE | 2020-02-01 11:30 | Progress Note ---
Assessment and Plan Assessment and plan: Suspected COVID- 19 Patient with very elevated inflammatory markers of ferritin, CRP, LDH and d- dimer. Bilateral pneumonia. Continue antibiotics per ID ARDS. Etiology secondary to above. Acute hypoxemic respiratory failure. Continue oxygen to maintain sats greater than 92% Appears stable on HFNC; wean FiO2 then flow Chest pain Stress test neg for ischemia GERD and costochondritis in differential diagnosis Volume overload s/p hemodialysis Nephrology consulted,following Acute on Chronic diastolic CHF exacerbation Secondary to volume overload End stage renal disease on dialysis Nephrology following T2DM (type 2 diabetes mellitus) Continue continue coverage Check hemoglobin A1c Hypertension Continue antihypertensives Hyponatremia Secondary to increased volume--dilutional DVT prophylaxis On heparin and GI prophylaxis 01/11 Covid 19 survey testing sent, nasal swab done 01/10 01/12 Patient has acute resp failure. may need Oxygen on dc. awaiting Covid result 01/13 Still has shortness of breath, awaiting Covid test. 01/14 Pt still dyspneic, await covid testing, Pulse ox 83% 01/16/2020. Patient remains dyspneic. Follow-up COVID testing. 01/17/2020. Patient still requiring large amounts of oxygen. Patient currently with 15 L satting at 95%. Patient with increased inflammatory markers. Follow- up chest x-ray today. 01/18/20--Patient still requiring large amounts of oxygen. Patient currently with 15 L %. Patient with increased inflammatory markers. 01/19/2020 very elevated inflammatory markers- ferritin> 2000, CRP >24, LDH> 600, d-dimer >1000 putting her at high risk for ARDS. Continue hydroxychloroquine 400 mg PO BID for 1 day then 200 mg PO BID for 4 days (total 5 days) with zinc 220 mg PO qday. Continue ceftriaxone. ContinueCOVID isolationprecautions pe r [facility] protocol. Continue serial Ferritin, LDH, D-Dimer, CRP every 48h 01/20/2020. Inflammatory markers remain elevated with ferritin 1826, LDH 496, CRP 19.3, and d-dimer 2072. Patient requiring high flow nasal cannula 40L, FiO2 80%. Pulmonary following. Continue antibiotics and Plaquenil. Continue COVID isolationprecautions per [facility] protocol. Patient has a high risk mortality and remains guarded. 01/21/2020. Continue antibiotics and Plaquenil. Continue COVID isolationprecautions per [facility] protocol. Maintain sats of 88% and greater. Still on HFNC, O2 weaned to 95% overnight. Sats documented at 98%. Pulmonary following and reports If patient progresses could give bipap a one hour trial to see if there is improvement, repeat ABG, if not would suggest elective intubation 01/22/2020 Patient still critically ill. Yesterday 01/20 had cardiopulmonary arrest so now intubated in ICU. Prognosis guarded. 01/23/2020 still critically ill. No more fever. Continue vent management. 01/24/20 Still critically ill, remain on vent. Continue current management. Will call . 01/25/20 Patient still critically ill. I called Davis Hernandez and gave update. He wants DNR status and says he will request withdrawal of care if patient does not get better after weekend. I discussed with Mother Repairer. 01/26/20 patient still intubated, on vent. She means a DNR order. Discussed with Nurse 01/26 patient still critically ill, vent dependent. 01/27 patient still intubated, on vent. On levophed to keep MAP>65mmhg 01/29/2020 patient still intubated on mechanical ventilation. AC mode ventila tion with rate 20, tidal volume 400, FiO2 45% and PEEP 12. patient with no fever. Patient currently with sedation of propofol. Patient received hemodialysis yesterday with approximately 3 L removed. 01/30/2020. Patient still on mechanical ventilation. AC mode ventilation with rate 20, tidal volume 400, FiO2 45% and PEEP 8. Patient with elevated alkaline phosphatase. Check abdominal ultrasound. 01/31/2020. Patient still on mechanical ventilation. PSV mode ventilation with FiO2 50% and PEEP 8 and PS=12. Follow-up abdominal ultrasound for elevated alkaline phosphatase 02/01/2020. Patient currently with PSV FiO2 50%, pressure support 12, PEEP 8. Continue PSV trials per pulmonary. Continue Levophed to maintain MAP greater than 65. Continue propofol for sedation. The high probability of a clinically significant, sudden or life threatening deterioration of the [immunologic and respiratory] system(s) required my full and direct attention, intervention and personal management. The aggregate critical care time was [31] minutes. This time is in addition to time spent performing reported procedures but includes the following: [x] Data Review and interpretation [x] Patient assessment and monitoring of vital signs [x] Documentation [x] Medication orders and management History Interval history: Patient on mechanical ventilation. PUI?: Yes COVID19: Positive Hospitalist Physical - Constitutional Vitals: Temp Pulse Resp BP Pulse Ox 100.6 F H 93 H 13 114/44 97 02/01/20 03:09 02/01/20 11:00 02/01/20 10:45 02/01/20 11:00 02/01/20 10:45 General appearance: Present: no acute distress - EENT Eyes: Present: PERRL, EOM intact ENT: hearing intact, clear oral mucosa, dentition normal - Neck Neck: Present: supple, normal ROM - Respiratory Respiratory effort: normal Respiratory: bilateral: CTA - Cardiovascular Rhythm: regular Heart Sounds: Present: S1 & S2. Absent: gallop, rub - Extremities Extremities: no ischemia, No edema, Full ROM - Abdominal General gastrointestinal: soft, non-tender, non-distended, normal bowel sounds - Integumentary Integumentary: Present: clear, warm, dry - Neurologic Neurologic: CNII-XII intact, moves all extremities BREEZY score - Breezy Score Age > 65: (1) Yes Aspirin use within the Past 7 Days: (1) Yes 3 or more CAD Risk Factors: (1) Yes 2 or more Angina events in past 24 hrs: (1) Yes Known CAD with more than 50% Stenosis: (0) No Elevated Cardiac Markers: (0) No ST Deviation Greater than 0.5mm: (0) No BREEZY Score: 4 Results - Labs CBC & Chem 7: 02/01/20 03:49 02/01/20 03:49 Labs: Laboratory Last Values WBC 17.4 K/mm3 (4.5-11.0) H 02/01/20 03:49 RBC 2.68 M/mm3 (3.65-5.03) L 02/01/20 03:49 Hgb 8.0 gm/dl (10.1-14.3) L 02/01/20 03:49 Hct 25.2 % (30.3-42.9) L 02/01/20 03:49 MCV 94 fl (79-97) 02/01/20 03:49 MCH 30 pg (28-32) 02/01/20 03:49 MCHC 32 % (30-34) 02/01/20 03:49 RDW 18.4 % (13.2-15.2) H 02/01/20 03:49 Plt Count 368 K/mm3 (140-440) 02/01/20 03:49 Lymph % (Auto) Shoe Polisher 02/01/20 03:49 [place] % (Auto) Shoe Polisher 02/01/20 03:49 Eos % (Auto) Shoe Polisher 02/01/20 03:49 Baso % (Auto) Shoe Polisher 02/01/20 03:49 Lymph # Shoe Polisher 02/01/20 03:49 [place] # Shoe Polisher 02/01/20 03:49 Eos # Shoe Polisher 02/01/20 03:49 Baso # Shoe Polisher 02/01/20 03:49 Add Manual Diff Complete 01/31/20 04:16 Total Counted 100 01/31/20 04:16 Seg Neutrophils % Shoe Polisher 02/01/20 03:49 Seg Neuts % (Manual) 92.0 % (40.0-70.0) H 01/31/20 04:16 Band Neutrophils % 0 % 01/31/20 04:16 Lymphocytes % (Manual) 2.0 % (13.4-35.0) L 01/31/20 04:16 Reactive Lymphs % (Man) 0 % 01/31/20 04:16 Monocytes % (Manual) 6.0 % (0.0-7.3) 01/31/20 04:16 Eosinophils % (Manual) 0 % (0.0-4.3) 01/31/20 04:16 Basophils % (Manual) 0 % (0.0-1.8) 01/31/20 04:16 Metamyelocytes % 0 % 01/31/20 04:16 Myelocytes % 0 % 01/31/20 04:16 Promyelocytes % 0 % 01/31/20 04:16 Blast Cells % 0 % 01/31/20 04:16 Nucleated RBC % Not Reportable 01/31/20 04:16 Seg Neutrophils # Shoe Polisher 02/01/20 03:49 Seg Neutrophils # Man 15.4 K/mm3 (1.8-7.7) H 01/31/20 04:16 Band Neutrophils # 0.0 K/mm3 01/31/20 04:16 Lymphocytes # (Manual) 0.3 K/mm3 (1.2-5.4) L 01/31/20 04:16 Abs React Lymphs (Man) 0.0 K/mm3 01/31/20 04:16 Monocytes # (Manual) 1.0 K/mm3 (0.0-0.8) H 01/31/20 04:16 Eosinophils # (Manual) 0.0 K/mm3 (0.0-0.4) 01/31/20 04:16 Basophils # (Manual) 0.0 K/mm3 (0.0-0.1) 01/31/20 04:16 Metamyelocytes # 0.0 K/mm3 01/31/20 04:16 Myelocytes # 0.0 K/mm3 01/31/20 04:16 Promyelocytes # 0.0 K/mm3 01/31/20 04:16 Blast Cells # 0.0 K/mm3 01/31/20 04:16 WBC Morphology Not Reportable 01/31/20 04:16 Hypersegmented Neuts Not Reportable 01/31/20 04:16 Hyposegmented Neuts Not Reportable 01/31/20 04:16 Hypogranular Neuts Not Reportable 01/31/20 04:16 Smudge Cells Not Reportable 01/31/20 04:16 Toxic Granulation Not Reportable 01/31/20 04:16 Toxic Vacuolation Not Reportable 01/31/20 04:16 Dohle Bodies Not Reportable 01/31/20 04:16 Pelger-Huet Anomaly Not Reportable 01/31/20 04:16 Armando Rods Not Reportable 01/31/20 04:16 Platelet Estimate Consistent w auto 01/31/20 04:16 Clumped Platelets Not Reportable 01/31/20 04:16 Plt Clumps, EDTA Not Reportable 01/31/20 04:16 Large Platelets Not Reportable 01/31/20 04:16 Giant Platelets Not Reportable 01/31/20 04:16 Platelet Satelliting Not Reportable 01/31/20 04:16 Plt Morphology Comment Not Reportable 01/31/20 04:16 RBC Morphology Not Reportable 01/31/20 04:16 Dimorphic RBCs Not Reportable 01/31/20 04:16 Polychromasia Few 01/31/20 04:16 Hypochromasia Not Reportable 01/31/20 04:16 Poikilocytosis Not Reportable 01/31/20 04:16 Anisocytosis Few 01/31/20 04:16 Microcytosis Not Reportable 01/31/20 04:16 Macrocytosis Not Reportable 01/31/20 04:16 Spherocytes Rare 01/31/20 04:16 Pappenheimer Bodies Not Reportable 01/31/20 04:16 Sickle Cells Not Reportable 01/31/20 04:16 Target Cells Not Reportable 01/31/20 04:16 Tear Drop Cells Not Reportable 01/31/20 04:16 Ovalocytes Not Reportable 01/31/20 04:16 Helmet Cells Not Reportable 01/31/20 04:16 [place] Bodies Not Reportable 01/31/20 04:16 Raymond Rings Not Reportable 01/31/20 04:16 Karen Cells Not Reportable 01/31/20 04:16 Bite Cells Not Reportable 01/31/20 04:16 Crenated Cell Not Reportable 01/31/20 04:16 Elliptocytes Not Reportable 01/31/20 04:16 Acanthocytes (Spur) Not Reportable 01/31/20 04:16 Rouleaux Not Reportable 01/31/20 04:16 Hemoglobin C Crystals Not Reportable 01/31/20 04:16 Schistocytes Few 01/31/20 04:16 Malaria parasites Not Reportable 01/31/20 04:16 Ney Bodies Not Reportable 01/31/20 04:16 Hem Pathologist Commnt No 01/31/20 04:16 PT 15.6 Sec. (12.2-14.9) H 01/09/20 12:55 INR 1.22 (0.87-1.13) H 01/09/20 12:55 APTT 31.5 Sec. (24.2-36.6) 01/09/20 12:55 D-Dimer 2379 ng/mlDDU (0-234) H 01/28/20 04:34 Heparin Anti-Xa Level < 0.10 U.I./ml (0.3-0.7) L 01/23/20 Unknown ABG pH 7.290 pH Units (7.350-7.450) L 02/01/20 05:00 ABG pCO2 57.1 mm Hg 02/01/20 05:00 ABG pO2 86.9 mm Hg (80.0-90.0) 02/01/20 05:00 ABG HCO3 26.8 mmol/L (20.0-26.0) H 02/01/20 05:00 ABG O2 Saturation 96.8 % (95.0-99.0) 02/01/20 05:00 ABG O2 Content 10.1 (0.0-44) 02/01/20 05:00 ABG Base Excess 0.0 mmol/L (-2.0-3.0) 02/01/20 05:00 ABG Hemoglobin 7.5 gm/dl (12.0-16.0) L 02/01/20 05:00 ABG Carboxyhemoglobin 2.0 % (0.0-5.0) 02/01/20 05:00 ABG Methemoglobin 0.6 % (0.0-1.5) 02/01/20 05:00 Oxyhemoglobin 94.2 % (95.0-99.0) L 02/01/20 05:00 FiO2 50 % 02/01/20 05:00 Sodium 133 mmol/L (137-145) L 02/01/20 03:49 Potassium 4.5 mmol/L (3.6-5.0) 02/01/20 03:49 Chloride 90.8 mmol/L (98-107) L 02/01/20 03:49 Carbon Dioxide 21 mmol/L (22-30) L 02/01/20 03:49 Anion Gap 26 mmol/L 02/01/20 03:49 BUN 90 mg/dL (7-17) H 02/01/20 03:49 Creatinine 4.6 mg/dL (0.7-1.2) H 02/01/20 03:49 Estimated GFR 12 ml/min 02/01/20 03:49 BUN/Creatinine Ratio 20 % 02/01/20 03:49 Glucose 145 mg/dL (65-100) H 02/01/20 03:49 POC Glucose 143 (70-105) H 02/01/20 06:09 Hemoglobin A1c 5.0 % (4-6) 01/10/20 06:54 Calcium 8.6 mg/dL (8.4-10.2) 02/01/20 03:49 Phosphorus 3.30 mg/dL (2.5-4.5) 01/12/20 16:01 Magnesium 2.00 mg/dL (1.7-2.3) 01/13/20 06:11 Ferritin > 2000.0 ng/mL (13.0-400.0) H 01/28/20 04:34 Total Bilirubin 0.50 mg/dL (0.1-1.2) 01/31/20 04:00 AST 103 units/L (5-40) H 01/31/20 04:00 ALT 63 units/L (7-56) H 01/31/20 04:00 Alkaline Phosphatase 534 units/L (35-129) H 01/31/20 04:00 Lactate Dehydrogenase 434 units/L (91-180) H 01/28/20 04:34 Troponin T 0.315 ng/mL (0.00-0.029) H* 01/10/20 06:54 C-Reactive Protein 9.70 mg/dL (0.00-1.30) H 01/28/20 04:34 NT-Pro-B Natriuret Pep 56556 pg/mL (0-900) H 01/09/20 12:55 Total Protein 7.0 g/dL (6.3-8.2) 01/31/20 04:00 Albumin 2.1 g/dL (3.9-5) L 01/31/20 04:00 Albumin/Globulin Ratio 0.4 % 01/31/20 04:00 Triglycerides 56 mg/dL (2-149) 01/30/20 04:04 Cholesterol 123 mg/dL (50-199) 01/09/20 12:55 LDL Cholesterol Direct 66 mg/dL (50-130) 01/09/20 12:55 HDL Cholesterol 47 mg/dL (40-59) 01/09/20 12:55 Cholesterol/HDL Ratio 2.61 % 01/09/20 12:55 Hepatitis A IgM Ab Non-reactive (NonReactive) 01/21/20 23:40 Hep Bs Antigen Non-reactive (Negative) 01/21/20 23:40 Hep B Core IgM Ab Non-reactive (NonReactive) 01/21/20 23:40 Hepatitis C Antibody Non-reactive (NonReactive) 01/21/20 23:40 Miscellaneous Test See scanned result 01/11/20 Unknown Miscellaneous Test See scanned result 01/11/20 Unknown Pleitez/IV: Voiding Method Toilet IV Catheter Type [Left Chest] Infusaport IV Catheter Type [Right Peripheral IV External Jugular] IV Catheter Type [Left INT / Saline Lock External Jugular] IV Catheter Type [Left Upper IVAD / Port arm] Active Medications - Current Medications Current Medications: Generic Name Dose Route Start Last Admin Trade Name Freq PRN Reason Stop Dose Admin Acetaminophen 650 mg 01/09/20 16:33 01/27/20 12:26 Tylenol PO 650 mg Q4H PRN Administration Pain MILD(1-3)/Fever >100.5/MEANS Lipase/Protease/Amylase 1 each 01/23/20 14:[address] 10,500 Unit FEEDTUBE PRN PRN For Clogged Feeding Tube Atorvastatin Calcium 40 mg 01/09/20 22:00 01/31/20 22:09 Lipitor PO 40 mg QHS PHILLY Administration Cyclobenzaprine HCl 5 mg 01/09/20 16:27 01/10/20 23:17 Flexeril PO 5 mg QHS PRN Administration Muscle Spasm Dextrose 50 ml 01/23/20 07:26 01/31/20 18:10 D50w (25gm) Syringe IV 50 ml Q30MIN PRN Administration BLOOD GLUCOSE < 70 Dextrose 25 ml 01/24/20 08:58 01/24/20 13:41 D50w (25gm) Syringe IV 25 ml Q4H PRN Administration BG < 80 MG/DL Docusate Sodium 100 mg 01/25/20 22:00 02/01/20 10:21 Colace PO 100 mg BID PHILLY Administration Enoxaparin Sodium 80 mg 01/23/20 12:00 02/01/20 10:16 Enoxaparin SUB-Q 80 mg Q24HR PHILLY Administration Famotidine 20 mg 01/09/20 22:00 02/01/20 10:16 Pepcid PO 20 mg DAILY PHILLY Administration Norepinephrine 4 mg in 250 mls @ 7.5 mls/hr 01/21/20 18:00 02/01/20 09:05 Levophed Drip 4 Mg/Ns 250 Ml IV 2 mcg/min TITR PHILLY 7.5 mls/hr Titration Protocol 2 MCG/MIN Propofol 1,000 mg in 100 mls @ 2.265 mls/hr 01/22/20 09:00 01/30/20 14:25 Diprivan 10 Mg/Ml IV 0 mcg/kg/min TITR PHILLY 0 mls/hr Titration Protocol 5 MCG/KG/MIN Sodium Chloride 100 mls @ 999 mls/hr 01/26/20 07:54 01/30/20 10:22 Nacl 0.9% IV 999 mls/hr SILVERIO PRN Administration Hypotension Sodium Chloride 100 mls @ 999 mls/hr 02/01/20 09:47 Nacl 0.9% IV SILVERIO PRN Hypotension Lorazepam 2 mg 01/23/20 15:36 Ativan IV Q10MIN PRN Agitation Morphine Sulfate 1 mg 01/30/20 11:21 Morphine IV Q4H PRN Pain, Moderate (4-6) Ondansetron HCl 4 mg 01/09/20 16:33 01/20/20 10:19 Zofran IV 4 mg Q8H PRN Administration Nausea And Vomiting Simple Syrup 15 ml 01/23/20 14:28 Simple Syrup FEEDTUBE PRN PRN Hypoglycemia Simple Syrup 30 ml 01/23/20 14:28 Simple Syrup FEEDTUBE PRN PRN Hypoglycemia Sodium Bicarbonate 325 mg 01/23/20 14:28 Sodium Bicarbonate FEEDTUBE PRN PRN For Clogged Feeding Tube Sodium Chloride 10 ml 01/09/20 22:00 02/01/20 10:17 Sodium Chloride Flush Syringe 10 Ml IV 10 ml BID PHILLY Administration Sodium Chloride 10 ml 01/09/20 16:33 Sodium Chloride Flush Syringe 10 Ml IV PRN PRN LINE FLUSH Valsartan 80 mg 01/10/20 10:00 02/01/20 10:17 Diovan PO Not Given DAILY PHILLY Nutrition/Malnutrition Assess - Dietary Evaluation Nutrition/Malnutrition Findings: Nutrition Notes Start: 01/17/20 13:49 Freq: Status: Active Protocol: Document 01/31/20 14:05 LM (Rec: 01/31/20 14:13 LM [email or web address]) Nutrition Notes Initial or Follow up Brief Note Subjective/Other Information Per RN, TF on hold due to ultrasound but was tolerating well prior to being on hold. Nutrition Intervention Follow-Up By: 02/01/20 Additional Comments F/U for TF tolerance
--- NOTE | 2020-02-01 11:32 | Progress Note ---
Assessment and Plan - Patient Problems (1) Volume overload Current Visit: Yes Status: Acute Qualifiers: Plan to address problem: end-stage renal disease with fluid overload. Improved with fluid removal on dialysis. hemodialysis today and again on Tuesday (2) Pneumonia due to COVID-19 virus Current Visit: Yes Status: Acute Plan to address problem: continue treatment per infectious disease. (3) Anemia in CKD (chronic kidney disease) Current Visit: Yes Status: Acute Qualifiers: Qualified Code(s): N18.6 - End stage renal disease; D63.1 - Anemia in chronic kidney disease; Z99.2 - Dependence on renal dialysis Plan to address problem: give erythropoietin on dialysis (4) T2DM (type 2 diabetes mellitus) Current Visit: Yes Status: Acute Plan to address problem: blood sugar management by primary attending. 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 Follow-up sodium with fluid removal on dialysis (7) Hypertensive chronic kidney disease with stage 5 chronic kidney disease or end stage renal disease Current Visit: No Status: Chronic Plan to address problem: patient is off of vasopressor. Follow blood pressure current medications (8) Sepsis with hypotension Current Visit: Yes Status: Acute Plan to address problem: back on Levophed. Wean to mean arterial pressure more than 65. Subjective Date of service: 02/01/20 Principal diagnosis: Pneumonia Interval history: Patient is intubated on the ventilator in intensive care unit. Back on vas opressor -Levophed. patient was seen and examined today PUI?: Yes COVID19: Positive Objective - Exam Narrative Exam: elderly -[place] female lying in bed intubated on the ventilator HEENT: Normocephalic atraumatic, pupils equal round reactive to light ETT intact Neck: Supple, no venous distention, no goiter CVS: S1S2 RRR No murmur, rub or gallop Lungs: Coarse Bs, no use of accessory muscles of respiration Abdomen: Full, soft, nontender, no organomegaly no bruit, bowel sounds are present Extremities: No edema, no cyanosis or clubbing Urinary: Deferred Musculo-skeletal: No joint deformities or swelling Neuro: Awake, alert, no focal deficits - Vital Signs Vital signs: Vital Signs - 12hr 04/16/20 04/16/20 04/16/20 23:31 23:45 23:55 Temperature 99.1 F Pulse Rate 104 H 102 H Respiratory 35 H 33 H Rate Blood Pressure 122/57 122/57 O2 Sat by Pulse 96 96 Oximetry 02/01/20 02/01/20 02/01/20 00:01 00:15 00:31 Temperature Pulse Rate 103 H 104 H 102 H Respiratory 47 H 33 H 32 H Rate Blood Pressure 124/58 124/58 122/57 O2 Sat by Pulse 96 97 96 Oximetry 02/01/20 02/01/20 02/01/20 00:45 00:56 01:01 Temperature Pulse Rate 102 H 100 H 102 H Respiratory 32 H 42 H Rate Blood Pressure 122/57 124/57 127/57 O2 Sat by Pulse 97 99 96 Oximetry 02/01/20 02/01/20 02/01/20 01:15 01:31 01:45 Temperature Pulse Rate 101 H 101 H 103 H Respiratory 28 H 40 H 52 H Rate Blood Pressure 127/57 128/55 128/55 O2 Sat by Pulse 95 95 98 Oximetry 02/01/20 02/01/20 02/01/20 02:01 02:15 02:31 Temperature Pulse Rate 103 H 101 H 101 H Respiratory 31 H 41 H 27 H Rate Blood Pressure 120/56 120/56 127/60 O2 Sat by Pulse 96 96 96 Oximetry 02/01/20 02/01/20 02/01/20 02:35 02:45 03:01 Temperature Pulse Rate 101 H 102 H Respiratory 36 H 43 H Rate Blood Pressure 127/60 129/57 O2 Sat by Pulse 93 96 96 Oximetry 02/01/20 02/01/20 02/01/20 03:09 03:15 03:30 Temperature 100.6 F H Pulse Rate 100 H 100 H Respiratory 50 H 37 H Rate Blood Pressure 129/57 129/55 O2 Sat by Pulse 97 98 Oximetry 02/01/20 02/01/20 02/01/20 03:45 03:50 04:01 Temperature Pulse Rate 101 H 97 H 101 H Respiratory 35 H 21 Rate Blood Pressure 131/60 125/58 O2 Sat by Pulse 95 93 96 Oximetry 02/01/20 02/01/20 02/01/20 04:15 04:31 04:38 Temperature Pulse Rate 97 H 93 H 98 H Respiratory 28 H 21 Rate Blood Pressure 125/58 102/44 102/44 O2 Sat by Pulse 98 96 98 Oximetry 02/01/20 02/01/20 02/01/20 04:45 05:01 05:15 Temperature Pulse Rate 97 H 97 H 97 H Respiratory 20 20 24 Rate Blood Pressure 121/55 124/53 124/53 O2 Sat by Pulse 97 95 96 Oximetry 02/01/20 02/01/20 02/01/20 05:31 05:45 06:01 Temperature Pulse Rate 97 H 97 H 96 H Respiratory 16 16 22 Rate Blood Pressure 128/54 128/54 125/54 O2 Sat by Pulse 96 98 95 Oximetry 02/01/20 02/01/20 02/01/20 06:15 06:31 06:45 Temperature Pulse Rate 94 H 93 H 92 H Respiratory 25 H 20 22 Rate Blood Pressure 125/54 107/41 107/41 O2 Sat by Pulse 97 96 95 Oximetry 02/01/20 02/01/20 02/01/20 07:00 07:15 07:31 Temperature Pulse Rate 91 H 90 91 H Respiratory 21 20 21 Rate Blood Pressure 110/47 108/51 114/46 O2 Sat by Pulse 96 96 Oximetry 02/01/20 02/01/20 02/01/20 07:45 08:00 08:01 Temperature Pulse Rate 92 H 90 92 H Respiratory 14 23 Rate Blood Pressure 114/52 114/48 110/46 O2 Sat by Pulse 97 99 97 Oximetry 02/01/20 02/01/20 02/01/20 08:15 08:31 08:45 Temperature Pulse Rate 91 H 90 90 Respiratory 20 28 H 21 Rate Blood Pressure 113/47 111/44 111/44 O2 Sat by Pulse 96 97 96 Oximetry 02/01/20 02/01/20 02/01/20 09:00 09:01 09:15 Temperature Pulse Rate 88 88 87 Respiratory 18 16 37 H Rate Blood Pressure 120/50 120/50 120/50 O2 Sat by Pulse 99 96 95 Oximetry 02/01/20 02/01/20 02/01/20 09:31 09:45 10:01 Temperature Pulse Rate 94 H 95 H 94 H Respiratory 46 H 29 H 22 Rate Blood Pressure 124/38 124/38 117/39 O2 Sat by Pulse 96 97 95 Oximetry 02/01/20 02/01/20 02/01/20 10:15 10:31 10:45 Temperature Pulse Rate 95 H 97 H 96 H Respiratory 29 H 11 L 13 Rate Blood Pressure 117/39 125/40 125/40 O2 Sat by Pulse 95 97 Oximetry 02/01/20 02/01/20 02/01/20 10:56 11:00 11:15 Temperature Pulse Rate 93 H 93 H 91 H Respiratory Rate Blood Pressure 116/33 114/44 111/39 O2 Sat by Pulse Oximetry - Lab 02/01/20 03:49 02/01/20 03:49 Most recent lab results ABG pH 7.290 pH Units (7.350-7.450) L 02/01/20 05:00 ABG pCO2 57.1 mm Hg 02/01/20 05:00 ABG pO2 86.9 mm Hg (80.0-90.0) 02/01/20 05:00 ABG HCO3 26.8 mmol/L (20.0-26.0) H 02/01/20 05:00 ABG O2 Saturation 96.8 % (95.0-99.0) 02/01/20 05:00 Calcium 8.6 mg/dL (8.4-10.2) 02/01/20 03:49 Phosphorus 3.30 mg/dL (2.5-4.5) 01/12/20 16:01 Magnesium 2.00 mg/dL (1.7-2.3) 01/13/20 06:11 Medications & Allergies - Medications Allergies/Adverse Reactions: Allergies cheese Allergy (Mild, Verified 12/20/19 10:19) Itching iodine Allergy (Mild, Verified 12/20/19 10:16) Anaphylaxis clonidine Allergy (Verified 12/19/19 04:13) Anaphylaxis shellfish derived Adverse Reaction (Verified 12/19/19 04:13) Angioedema Home Medications: Home Medications Medication Instructions Recorded Confirmed Last Taken Type Atorvastatin [Lipitor] 40 mg PO DAILY 11/06/19 01/13/20 01/02/20 10:00 History Acetaminophen [Acetaminophen 8 650 mg PO Q8H PRN #30 tablet.er 11/21/19 01/13/20 01/03/20 22:00 Rx Hour] Cyclobenzaprine HCl [Flexeril 5 MG 5 mg PO QHS PRN #20 tab 11/21/19 01/13/20 01/01/20 22:00 Rx TAB] HYDROcodone/APAP 5-325 [[place] 1 each PO Q6HR PRN #18 tablet 12/13/19 01/13/20 01/01/20 22:00 Rx 5-325 mg TAB] amLODIPine 10 mg PO DAILY 90 Days #90 tab 12/18/19 01/13/20 01/01/20 10:00 Rx Ibuprofen 800 mg PO TID 12/19/19 01/13/20 01/02/20 22:00 History Magnesium Oxide [Mag-Ox] 400 mg PO QDAY 12/19/19 01/13/20 01/03/20 10:00 History diphenhydrAMINE [Benadryl CAP] 25 mg PO Q8HR PRN 12/19/19 01/13/20 01/03/20 21:00 History labetaloL [Labetalol 100mg TAB] 100 mg PO Q8H #90 tablet 12/21/19 01/13/20 01/02/20 10:00 Rx traMADoL [Ultram 50 MG tab] 50 mg PO Q6HR PRN #20 tablet 12/29/19 01/13/20 12/31/19 10:00 Rx DULoxetine [Cymbalta] 30 mg PO QDAY #30 capsule 01/04/20 01/13/20 Unknown Rx Valsartan [Diovan] 80 mg PO DAILY #30 tablet 01/04/20 01/13/20 Unknown Rx Active Medications: Generic Name Dose Route Start Last Admin Trade Name Freq PRN Reason Stop Dose Admin Acetaminophen 650 mg 01/09/20 16:33 01/27/20 12:26 Tylenol PO 650 mg Q4H PRN Administration Pain MILD(1-3)/Fever >100.5/MEANS Lipase/Protease/Amylase 1 each 01/23/20 14:[address] 10,500 Unit FEEDTUBE PRN PRN For Clogged Feeding Tube Atorvastatin Calcium 40 mg 01/09/20 22:00 01/31/20 22:09 Lipitor PO 40 mg QHS PHILLY Administration Dextrose 50 ml 01/23/20 07:26 01/31/20 18:10 D50w (25gm) Syringe IV 50 ml Q30MIN PRN Administration BLOOD GLUCOSE < 70 Dextrose 25 ml 01/24/20 08:58 01/24/20 13:41 D50w (25gm) Syringe IV 25 ml Q4H PRN Administration BG < 80 MG/DL Docusate Sodium 100 mg 01/25/20 22:00 02/01/20 10:21 Colace PO 100 mg BID PHILLY Administration Enoxaparin Sodium 80 mg 01/23/20 12:00 02/01/20 10:16 Enoxaparin SUB-Q 80 mg Q24HR PHILLY Administration Famotidine 20 mg 01/09/20 22:00 02/01/20 10:16 Pepcid PO 20 mg DAILY PHILLY Administration Norepinephrine 4 mg in 250 mls @ 7.5 mls/hr 01/21/20 18:00 02/01/20 09:05 Levophed Drip 4 Mg/Ns 250 Ml IV 2 mcg/min TITR PHILLY 7.5 mls/hr Titration Protocol 2 MCG/MIN Propofol 1,000 mg in 100 mls @ 2.265 mls/hr 01/22/20 09:00 01/30/20 14:25 Diprivan 10 Mg/Ml IV 0 mcg/kg/min TITR PHILLY 0 mls/hr Titration Protocol 5 MCG/KG/MIN Sodium Chloride 100 mls @ 999 mls/hr 01/26/20 07:54 01/30/20 10:22 Nacl 0.9% IV 999 mls/hr SILVERIO PRN Administration Hypotension Sodium Chloride 100 mls @ 999 mls/hr 02/01/20 09:47 Nacl 0.9% IV SILVERIO PRN Hypotension Lorazepam 2 mg 01/23/20 15:36 Ativan IV Q10MIN PRN Agitation Morphine Sulfate 1 mg 01/30/20 11:21 Morphine IV Q4H PRN Pain, Moderate (4-6) Ondansetron HCl 4 mg 01/09/20 16:33 01/20/20 10:19 Zofran IV 4 mg Q8H PRN Administration Nausea And Vomiting Simple Syrup 15 ml 01/23/20 14:28 Simple Syrup FEEDTUBE PRN PRN Hypoglycemia Simple Syrup 30 ml 01/23/20 14:28 Simple Syrup FEEDTUBE PRN PRN Hypoglycemia Sodium Bicarbonate 325 mg 01/23/20 14:28 Sodium Bicarbonate FEEDTUBE PRN PRN For Clogged Feeding Tube Sodium Chloride 10 ml 01/09/20 22:00 02/01/20 10:17 Sodium Chloride Flush Syringe 10 Ml IV 10 ml BID PHILLY Administration Sodium Chloride 10 ml 01/09/20 16:33 Sodium Chloride Flush Syringe 10 Ml IV PRN PRN LINE FLUSH Valsartan 80 mg 01/10/20 10:00 02/01/20 10:17 Diovan PO Not Given DAILY PHILLY
--- NOTE | 2020-02-01 11:53 | Progress Note ---
Assessment and Plan 64 y/o female with COVID positive, viral pneumonia with some pulmonary vascular congestion superimposed. 1. Continue PSV trials. Asked RT to attempt to drop PEEP to 6 2. HD per renal today. UF is definitely helping as changes can be seen in CXR. HD again tomorrow. Will not repeat CXR any time soon unless increase in oxygen requirements. 3. Changed back to prophylactic dosing for VTE as not confirmed the presence of VTE 4. Overall prognosis is guarded to poor, especially with prior history of ESRD on HD. Continue supportive care. IMS spoke with who has made patient a DNR. I have signed. Hopeful she can pull through but do agree with DNR status given evidence of increased mortality throughout [place] from this novel [place] virus. Spoke with IMS again as they will speak with today. Hopeful he will continue as she has made improvements. Please continue daily PSV's, hoping her mental state will improve and she will clear the sedation and be extubated. Otherwise consider trach and peg and follow up from there. CCT 31 minutes. Subjective Date of service: 02/01/20 Principal diagnosis: Pneumonia Interval history: No acute events. Tolerating PSV trials. Currently getting HD. PUI?: Yes COVID19: Positive Objective Vital Signs - 12hr 01/31/20 01/31/20 02/01/20 23:45 23:55 00:01 Temperature 99.1 F Pulse Rate 102 H 103 H Respiratory 33 H 47 H Rate Blood Pressure 122/57 124/58 O2 Sat by Pulse 96 96 Oximetry O2 Sat by Pulse Oximetry [ Anterior Bilateral Throughout] 02/01/20 02/01/20 02/01/20 00:15 00:31 00:45 Temperature Pulse Rate 104 H 102 H 102 H Respiratory 33 H 32 H 32 H Rate Blood Pressure 124/58 122/57 122/57 O2 Sat by Pulse 97 96 97 Oximetry O2 Sat by Pulse Oximetry [ Anterior Bilateral Throughout] 02/01/20 02/01/20 02/01/20 00:56 01:01 01:15 Temperature Pulse Rate 100 H 102 H 101 H Respiratory 42 H 28 H Rate Blood Pressure 124/57 127/57 127/57 O2 Sat by Pulse 99 96 95 Oximetry O2 Sat by Pulse Oximetry [ Anterior Bilateral Throughout] 02/01/20 02/01/20 02/01/20 01:31 01:45 02:01 Temperature Pulse Rate 101 H 103 H 103 H Respiratory 40 H 52 H 31 H Rate Blood Pressure 128/55 128/55 120/56 O2 Sat by Pulse 95 98 96 Oximetry O2 Sat by Pulse Oximetry [ Anterior Bilateral Throughout] 02/01/20 02/01/20 02/01/20 02:15 02:31 02:35 Temperature Pulse Rate 101 H 101 H Respiratory 41 H 27 H Rate Blood Pressure 120/56 127/60 O2 Sat by Pulse 96 96 93 Oximetry O2 Sat by Pulse Oximetry [ Anterior Bilateral Throughout] 02/01/20 02/01/20 02/01/20 02:45 03:01 03:09 Temperature 100.6 F H Pulse Rate 101 H 102 H Respiratory 36 H 43 H Rate Blood Pressure 127/60 129/57 O2 Sat by Pulse 96 96 Oximetry O2 Sat by Pulse Oximetry [ Anterior Bilateral Throughout] 02/01/20 02/01/20 02/01/20 03:15 03:30 03:45 Temperature Pulse Rate 100 H 100 H 101 H Respiratory 50 H 37 H 35 H Rate Blood Pressure 129/57 129/55 131/60 O2 Sat by Pulse 97 98 95 Oximetry O2 Sat by Pulse Oximetry [ Anterior Bilateral Throughout] 02/01/20 02/01/20 02/01/20 03:50 04:01 04:15 Temperature Pulse Rate 97 H 101 H 97 H Respiratory 21 28 H Rate Blood Pressure 125/58 125/58 O2 Sat by Pulse 93 96 98 Oximetry O2 Sat by Pulse Oximetry [ Anterior Bilateral Throughout] 02/01/20 02/01/20 02/01/20 04:31 04:38 04:45 Temperature Pulse Rate 93 H 98 H 97 H Respiratory 21 20 Rate Blood Pressure 102/44 102/44 121/55 O2 Sat by Pulse 96 98 97 Oximetry O2 Sat by Pulse Oximetry [ Anterior Bilateral Throughout] 02/01/20 02/01/20 02/01/20 05:01 05:15 05:31 Temperature Pulse Rate 97 H 97 H 97 H Respiratory 20 24 16 Rate Blood Pressure 124/53 124/53 128/54 O2 Sat by Pulse 95 96 96 Oximetry O2 Sat by Pulse Oximetry [ Anterior Bilateral Throughout] 02/01/20 02/01/20 02/01/20 05:45 06:01 06:15 Temperature Pulse Rate 97 H 96 H 94 H Respiratory 16 22 25 H Rate Blood Pressure 128/54 125/54 125/54 O2 Sat by Pulse 98 95 97 Oximetry O2 Sat by Pulse Oximetry [ Anterior Bilateral Throughout] 02/01/20 02/01/20 02/01/20 06:31 06:45 07:00 Temperature Pulse Rate 93 H 92 H 91 H Respiratory 20 22 21 Rate Blood Pressure 107/41 107/41 110/47 O2 Sat by Pulse 96 95 96 Oximetry O2 Sat by Pulse Oximetry [ Anterior Bilateral Throughout] 02/01/20 02/01/20 02/01/20 07:15 07:31 07:45 Temperature Pulse Rate 90 91 H 92 H Respiratory 20 21 14 Rate Blood Pressure 108/51 114/46 114/52 O2 Sat by Pulse 96 97 Oximetry O2 Sat by Pulse Oximetry [ Anterior Bilateral Throughout] 02/01/20 02/01/20 02/01/20 08:00 08:01 08:15 Temperature Pulse Rate 90 92 H 91 H Respiratory 23 20 Rate Blood Pressure 114/48 110/46 113/47 O2 Sat by Pulse 99 97 96 Oximetry O2 Sat by Pulse Oximetry [ Anterior Bilateral Throughout] 02/01/20 02/01/20 02/01/20 08:31 08:45 09:00 Temperature Pulse Rate 90 90 88 Respiratory 28 H 21 18 Rate Blood Pressure 111/44 111/44 120/50 O2 Sat by Pulse 97 96 99 Oximetry O2 Sat by Pulse Oximetry [ Anterior Bilateral Throughout] 02/01/20 02/01/20 02/01/20 09:01 09:15 09:31 Temperature Pulse Rate 88 87 94 H Respiratory 16 37 H 46 H Rate Blood Pressure 120/50 120/50 124/38 O2 Sat by Pulse 96 95 96 Oximetry O2 Sat by Pulse Oximetry [ Anterior Bilateral Throughout] 02/01/20 02/01/20 02/01/20 09:45 10:01 10:15 Temperature Pulse Rate 95 H 94 H 95 H Respiratory 29 H 22 29 H Rate Blood Pressure 124/38 117/39 117/39 O2 Sat by Pulse 97 95 Oximetry O2 Sat by Pulse Oximetry [ Anterior Bilateral Throughout] 02/01/20 02/01/20 02/01/20 10:31 10:45 10:56 Temperature Pulse Rate 97 H 96 H 93 H Respiratory 11 L 13 Rate Blood Pressure 125/40 125/40 116/33 O2 Sat by Pulse 95 97 Oximetry O2 Sat by Pulse Oximetry [ Anterior Bilateral Throughout] 02/01/20 02/01/20 02/01/20 11:00 11:15 11:18 Temperature 98.1 F Pulse Rate 93 H 91 H 96 H Respiratory 12 Rate Blood Pressure 114/44 111/39 118/42 O2 Sat by Pulse Oximetry O2 Sat by Pulse 92 Oximetry [ Anterior Bilateral Throughout] 02/01/20 11:30 Temperature Pulse Rate 93 H Respiratory Rate Blood Pressure 107/46 O2 Sat by Pulse Oximetry O2 Sat by Pulse Oximetry [ Anterior Bilateral Throughout] Constitutional: other (orally intubated, not sedated currently on vent) Eyes: non-icteric ENT: oropharynx moist Neck: supple Effort: normal Ascultation: Bilateral: rales Cardiovascular: regular rate and rhythm (no mrg) Gastrointestinal: normoactive bowel sounds, soft, non-tender, non-distended Integumentary: normal Extremities: no cyanosis, no edema, pink and warm Neurologic: normal mental status, non-focal exam, pupils equal and round, CN II- XII normal Psychiatric: mood appropriate, affect normal CBC and BMP: 02/01/20 03:49 02/01/20 03:49 ABG, PT/INR, D-dimer: ABG ABG pH 7.290 pH Units (7.350-7.450) L 02/01/20 05:00 ABG pCO2 57.1 mm Hg 02/01/20 05:00 ABG pO2 86.9 mm Hg (80.0-90.0) 02/01/20 05:00 ABG O2 Saturation 96.8 % (95.0-99.0) 02/01/20 05:00 PT/INR, D-dimer PT 15.6 Sec. (12.2-14.9) H 01/09/20 12:55 INR 1.22 (0.87-1.13) H 01/09/20 12:55 D-Dimer 2379 ng/mlDDU (0-234) H 01/28/20 04:34 Abnormal lab findings: Abnormal Labs 01/09/20 01/09/20 01/09/20 12:55 12:55 12:55 WBC 4.4 L RBC 3.44 L Hgb Hct MCV RDW 17.0 H Plt Count Lymph % (Auto) 6.8 L [place] % (Auto) 13.6 H Lymph # 0.3 L Seg Neutrophils % 79.0 H Seg Neuts % (Manual) Lymphocytes % (Manual) Seg Neutrophils # Man Lymphocytes # (Manual) Monocytes # (Manual) PT 15.6 H INR 1.22 H D-Dimer Heparin Anti-Xa Level ABG pH ABG pO2 ABG HCO3 ABG O2 Saturation ABG Base Excess ABG Hemoglobin Oxyhemoglobin Sodium 130 L Chloride 88.9 L Carbon Dioxide 20 L BUN 41 H Creatinine 7.6 H Glucose 115 H POC Glucose Calcium Magnesium Ferritin AST ALT Alkaline Phosphatase 153 H Lactate Dehydrogenase Troponin T 0.382 H* C-Reactive Protein NT-Pro-B Natriuret Pep 51780 H Total Protein Albumin 3.2 L 01/09/20 01/10/20 01/10/20 20:14 00:16 06:54 WBC 3.3 L RBC 3.00 L Hgb 9.2 L Hct 27.8 L MCV RDW 17.2 H Plt Count Lymph % (Auto) 8.9 L [place] % (Auto) 11.5 H Lymph # 0.3 L Seg Neutrophils % 79.1 H Seg Neuts % (Manual) Lymphocytes % (Manual) Seg Neutrophils # Man Lymphocytes # (Manual) Monocytes # (Manual) PT INR D-Dimer Heparin Anti-Xa Level ABG pH ABG pO2 ABG HCO3 ABG O2 Saturation ABG Base Excess ABG Hemoglobin Oxyhemoglobin Sodium Chloride Carbon Dioxide BUN Creatinine Glucose POC Glucose Calcium Magnesium Ferritin AST ALT Alkaline Phosphatase Lactate Dehydrogenase Troponin T 0.349 H* 0.328 H* C-Reactive Protein NT-Pro-B Natriuret Pep Total Protein Albumin 01/10/20 01/10/20 01/11/20 06:54 06:54 16:45 WBC RBC Hgb Hct MCV RDW Plt Count Lymph % (Auto) [place] % (Auto) Lymph # Seg Neutrophils % Seg Neuts % (Manual) Lymphocytes % (Manual) Seg Neutrophils # Man Lymphocytes # (Manual) Monocytes # (Manual) PT INR D-Dimer Heparin Anti-Xa Level ABG pH ABG pO2 ABG HCO3 ABG O2 Saturation ABG Base Excess ABG Hemoglobin Oxyhemoglobin Sodium 133 L Chloride 90.6 L Carbon Dioxide BUN 50 H Creatinine 8.4 H Glucose 101 H POC Glucose 106 H Calcium 8.1 L Magnesium Ferritin AST ALT Alkaline Phosphatase 148 H Lactate Dehydrogenase Troponin T 0.315 H* C-Reactive Protein NT-Pro-B Natriuret Pep Total Protein 5.4 L Albumin 2.7 L 01/12/20 01/13/20 01/13/20 16:01 06:11 06:11 WBC 3.1 L RBC 3.25 L Hgb 9.8 L Hct MCV RDW 17.2 H Plt Count 136 L Lymph % (Auto) [place] % (Auto) Lymph # Seg Neutrophils % Seg Neuts % (Manual) Lymphocytes % (Manual) Seg Neutrophils # Man Lymphocytes # (Manual) Monocytes # (Manual) PT INR D-Dimer Heparin Anti-Xa Level ABG pH ABG pO2 ABG HCO3 ABG O2 Saturation ABG Base Excess ABG Hemoglobin Oxyhemoglobin Sodium 135 L Chloride 93.4 L Carbon Dioxide BUN 19 H Creatinine 4.5 H Glucose 120 H POC Glucose Calcium 7.8 L Magnesium 1.40 L Ferritin AST ALT Alkaline Phosphatase Lactate Dehydrogenase Troponin T C-Reactive Protein NT-Pro-B Natriuret Pep Total Protein Albumin 01/16/20 01/16/20 01/16/20 08:35 11:49 14:11 WBC RBC Hgb Hct MCV RDW Plt Count Lymph % (Auto) [place] % (Auto) Lymph # Seg Neutrophils % Seg Neuts % (Manual) Lymphocytes % (Manual) Seg Neutrophils # Man Lymphocytes # (Manual) Monocytes # (Manual) PT INR D-Dimer Heparin Anti-Xa Level ABG pH ABG pO2 48.4 L ABG HCO3 30.5 H ABG O2 Saturation 81.9 L ABG Base Excess 4.6 H ABG Hemoglobin 10.5 L Oxyhemoglobin 80.1 L Sodium Chloride Carbon Dioxide BUN Creatinine Glucose POC Glucose 126 H 119 H Calcium Magnesium Ferritin AST ALT Alkaline Phosphatase Lactate Dehydrogenase Troponin T C-Reactive Protein NT-Pro-B Natriuret Pep Total Protein Albumin 01/16/20 01/16/20 01/16/20 15:38 15:38 15:38 WBC RBC Hgb Hct MCV RDW Plt Count Lymph % (Auto) [place] % (Auto) Lymph # Seg Neutrophils % Seg Neuts % (Manual) Lymphocytes % (Manual) Seg Neutrophils # Man Lymphocytes # (Manual) Monocytes # (Manual) PT INR D-Dimer 1104.64 H Heparin Anti-Xa Level ABG pH ABG pO2 ABG HCO3 ABG O2 Saturation ABG Base Excess ABG Hemoglobin Oxyhemoglobin Sodium Chloride Carbon Dioxide BUN Creatinine Glucose POC Glucose Calcium Magnesium Ferritin > 2000.0 H AST ALT Alkaline Phosphatase Lactate Dehydrogenase 690 H Troponin T C-Reactive Protein 24.10 H NT-Pro-B Natriuret Pep Total Protein Albumin 01/16/20 01/18/20 01/18/20 18:11 06:25 06:25 WBC RBC 3.15 L Hgb 9.4 L Hct 29.4 L MCV RDW 17.5 H Plt Count 135 L Lymph % (Auto) 3.8 L [place] % (Auto) Lymph # 0.2 L Seg Neutrophils % 88.8 H Seg Neuts % (Manual) Lymphocytes % (Manual) Seg Neutrophils # Man Lymphocytes # (Manual) Monocytes # (Manual) PT INR D-Dimer Heparin Anti-Xa Level ABG pH ABG pO2 ABG HCO3 ABG O2 Saturation ABG Base Excess ABG Hemoglobin Oxyhemoglobin Sodium Chloride 96.8 L Carbon Dioxide BUN 26 H Creatinine 4.2 H Glucose 115 H POC Glucose 130 H Calcium 8.2 L Magnesium Ferritin AST ALT Alkaline Phosphatase Lactate Dehydrogenase 537 H Troponin T C-Reactive Protein 17.10 H NT-Pro-B Natriuret Pep Total Protein Albumin 01/18/20 01/18/20 01/18/20 06:25 06:25 12:15 WBC RBC Hgb Hct MCV RDW Plt Count Lymph % (Auto) [place] % (Auto) Lymph # Seg Neutrophils % Seg Neuts % (Manual) Lymphocytes % (Manual) Seg Neutrophils # Man Lymphocytes # (Manual) Monocytes # (Manual) PT INR D-Dimer 938.03 H Heparin Anti-Xa Level ABG pH ABG pO2 66.5 L ABG HCO3 30.1 H ABG O2 Saturation 93.2 L ABG Base Excess 4.6 H ABG Hemoglobin 10.0 L Oxyhemoglobin 91.3 L Sodium Chloride Carbon Dioxide BUN Creatinine Glucose POC Glucose Calcium Magnesium Ferritin 3105.0 H AST ALT Alkaline Phosphatase Lactate Dehydrogenase Troponin T C-Reactive Protein NT-Pro-B Natriuret Pep Total Protein Albumin 01/20/20 01/20/20 01/20/20 07:37 07:37 07:37 WBC RBC Hgb Hct MCV RDW Plt Count Lymph % (Auto) [place] % (Auto) Lymph # Seg Neutrophils % Seg Neuts % (Manual) Lymphocytes % (Manual) Seg Neutrophils # Man Lymphocytes # (Manual) Monocytes # (Manual) PT INR D-Dimer 2072.25 H Heparin Anti-Xa Level ABG pH ABG pO2 ABG HCO3 ABG O2 Saturation ABG Base Excess ABG Hemoglobin Oxyhemoglobin Sodium Chloride Carbon Dioxide BUN Creatinine Glucose POC Glucose Calcium Magnesium Ferritin 1826.0 H AST ALT Alkaline Phosphatase Lactate Dehydrogenase 496 H Troponin T C-Reactive Protein 19.30 H NT-Pro-B Natriuret Pep Total Protein Albumin 01/20/20 01/21/20 01/21/20 17:30 03:59 17:35 WBC RBC Hgb Hct MCV RDW Plt Count Lymph % (Auto) [place] % (Auto) Lymph # Seg Neutrophils % Seg Neuts % (Manual) Lymphocytes % (Manual) Seg Neutrophils # Man Lymphocytes # (Manual) Monocytes # (Manual) PT INR D-Dimer Heparin Anti-Xa Level ABG pH ABG pO2 61.1 L 67.4 L ABG HCO3 29.9 H 26.2 H ABG O2 Saturation 91.7 L 93.4 L ABG Base Excess 4.9 H ABG Hemoglobin 9.0 L 9.1 L Oxyhemoglobin 89.5 L 91.1 L Sodium 136 L Chloride Carbon Dioxide BUN 36 H Creatinine 4.9 H Glucose POC Glucose Calcium Magnesium Ferritin AST ALT Alkaline Phosphatase Lactate Dehydrogenase Troponin T C-Reactive Protein NT-Pro-B Natriuret Pep Total Protein Albumin 01/21/20 01/22/20 01/22/20 Unknown 03:41 03:41 WBC RBC Hgb Hct MCV RDW Plt Count Lymph % (Auto) [place] % (Auto) Lymph # Seg Neutrophils % Seg Neuts % (Manual) Lymphocytes % (Manual) Seg Neutrophils # Man Lymphocytes # (Manual) Monocytes # (Manual) PT INR D-Dimer Heparin Anti-Xa Level ABG pH 7.465 H ABG pO2 48.9 L ABG HCO3 26.6 H ABG O2 Saturation 85.7 L ABG Base Excess ABG Hemoglobin 10.4 L Oxyhemoglobin 83.5 L Sodium Chloride Carbon Dioxide BUN Creatinine Glucose POC Glucose Calcium Magnesium Ferritin 6071.0 H AST ALT Alkaline Phosphatase Lactate Dehydrogenase 963 H Troponin T C-Reactive Protein 30.00 H NT-Pro-B Natriuret Pep Total Protein Albumin 01/22/20 01/22/20 01/22/20 03:41 07:47 11:20 WBC RBC Hgb Hct MCV RDW Plt Count Lymph % (Auto) [place] % (Auto) Lymph # Seg Neutrophils % Seg Neuts % (Manual) Lymphocytes % (Manual) Seg Neutrophils # Man Lymphocytes # (Manual) Monocytes # (Manual) PT INR D-Dimer > 50969 H Heparin Anti-Xa Level ABG pH ABG pO2 66.7 L ABG HCO3 28.7 H ABG O2 Saturation 91.9 L ABG Base Excess ABG Hemoglobin 9.1 L Oxyhemoglobin 89.5 L Sodium Chloride 94.3 L Carbon Dioxide BUN 53 H Creatinine 6.5 H Glucose POC Glucose Calcium Magnesium Ferritin AST ALT Alkaline Phosphatase Lactate Dehydrogenase Troponin T C-Reactive Protein NT-Pro-B Natriuret Pep Total Protein Albumin 01/22/20 01/22/20 01/23/20 11:49 Unknown 04:55 WBC 15.1 H RBC 3.05 L Hgb 8.8 L Hct 28.3 L MCV RDW 17.8 H Plt Count 125 L Lymph % (Auto) [place] % (Auto) Lymph # Seg Neutrophils % Seg Neuts % (Manual) Lymphocytes % (Manual) Seg Neutrophils # Man Lymphocytes # (Manual) Monocytes # (Manual) PT INR D-Dimer Heparin Anti-Xa Level ABG pH 7.340 L ABG pO2 77.7 L 136.3 H ABG HCO3 27.6 H 28.8 H ABG O2 Saturation ABG Base Excess ABG Hemoglobin 9.3 L 10.9 L Oxyhemoglobin 94.2 L Sodium Chloride Carbon Dioxide BUN Creatinine Glucose POC Glucose Calcium Magnesium Ferritin AST ALT Alkaline Phosphatase Lactate Dehydrogenase Troponin T C-Reactive Protein NT-Pro-B Natriuret Pep Total Protein Albumin 01/23/20 01/23/20 01/23/20 06:23 07:07 12:23 WBC RBC Hgb Hct MCV RDW Plt Count Lymph % (Auto) [place] % (Auto) Lymph # Seg Neutrophils % Seg Neuts % (Manual) Lymphocytes % (Manual) Seg Neutrophils # Man Lymphocytes # (Manual) Monocytes # (Manual) PT INR D-Dimer Heparin Anti-Xa Level ABG pH ABG pO2 ABG HCO3 ABG O2 Saturation ABG Base Excess ABG Hemoglobin Oxyhemoglobin Sodium Chloride Carbon Dioxide BUN Creatinine Glucose POC Glucose 57 L 127 H 131 H Calcium Magnesium Ferritin AST ALT Alkaline Phosphatase Lactate Dehydrogenase Troponin T C-Reactive Protein NT-Pro-B Natriuret Pep Total Protein Albumin 01/23/20 01/23/20 01/24/20 Unknown Unknown 04:00 WBC 16.2 H RBC 3.08 L Hgb 8.9 L Hct 28.6 L MCV RDW 17.8 H Plt Count 139 L Lymph % (Auto) [place] % (Auto) Lymph # Seg Neutrophils % Seg Neuts % (Manual) Lymphocytes % (Manual) Seg Neutrophils # Man Lymphocytes # (Manual) Monocytes # (Manual) PT INR D-Dimer Heparin Anti-Xa Level < 0.10 L ABG pH ABG pO2 ABG HCO3 ABG O2 Saturation ABG Base Excess ABG Hemoglobin Oxyhemoglobin Sodium Chloride Carbon Dioxide BUN Creatinine Glucose POC Glucose Calcium Magnesium Ferritin 4195.0 H AST ALT Alkaline Phosphatase Lactate Dehydrogenase Troponin T C-Reactive Protein NT-Pro-B Natriuret Pep Total Protein Albumin 01/24/20 01/24/20 01/24/20 04:00 04:00 04:00 WBC RBC Hgb Hct MCV RDW Plt Count Lymph % (Auto) [place] % (Auto) Lymph # Seg Neutrophils % Seg Neuts % (Manual) Lymphocytes % (Manual) Seg Neutrophils # Man Lymphocytes # (Manual) Monocytes # (Manual) PT INR D-Dimer 5783.11 H Heparin Anti-Xa Level ABG pH 7.188 L* ABG pO2 70.8 L ABG HCO3 32.2 H ABG O2 Saturation 90.4 L ABG Base Excess ABG Hemoglobin 8.5 L Oxyhemoglobin 88.1 L Sodium Chloride Carbon Dioxide BUN Creatinine Glucose POC Glucose Calcium Magnesium Ferritin AST ALT Alkaline Phosphatase Lactate Dehydrogenase 474 H Troponin T C-Reactive Protein 29.80 H NT-Pro-B Natriuret Pep Total Protein Albumin 01/24/20 01/24/20 01/24/20 05:20 05:51 09:14 WBC RBC Hgb Hct MCV RDW Plt Count Lymph % (Auto) [place] % (Auto) Lymph # Seg Neutrophils % Seg Neuts % (Manual) Lymphocytes % (Manual) Seg Neutrophils # Man Lymphocytes # (Manual) Monocytes # (Manual) PT INR D-Dimer Heparin Anti-Xa Level ABG pH 7.214 L ABG pO2 71.7 L ABG HCO3 31.5 H ABG O2 Saturation 91.8 L ABG Base Excess ABG Hemoglobin 9.1 L Oxyhemoglobin 89.3 L Sodium Chloride Carbon Dioxide BUN Creatinine Glucose POC Glucose 50 L 53 L Calcium Magnesium Ferritin AST ALT Alkaline Phosphatase Lactate Dehydrogenase Troponin T C-Reactive Protein NT-Pro-B Natriuret Pep Total Protein Albumin 01/24/20 01/24/2020 15:10 18:04 21:10 WBC RBC Hgb Hct MCV RDW Plt Count Lymph % (Auto) [place] % (Auto) Lymph # Seg Neutrophils % Seg Neuts % (Manual) Lymphocytes % (Manual) Seg Neutrophils # Man Lymphocytes # (Manual) Monocytes # (Manual) PT INR D-Dimer Heparin Anti-Xa Level ABG pH ABG pO2 ABG HCO3 ABG O2 Saturation ABG Base Excess ABG Hemoglobin Oxyhemoglobin Sodium Chloride Carbon Dioxide BUN Creatinine Glucose POC Glucose 114 H 51 L 144 H Calcium Magnesium Ferritin AST ALT Alkaline Phosphatase Lactate Dehydrogenase Troponin T C-Reactive Protein NT-Pro-B Natriuret Pep Total Protein Albumin 01/24/20 01/25/20 01/25/20 Unknown 00:32 03:50 WBC 13.0 H RBC 3.10 L Hgb 9.2 L Hct 29.0 L MCV RDW 17.7 H Plt Count Lymph % (Auto) [place] % (Auto) Lymph # Seg Neutrophils % Seg Neuts % (Manual) 92.0 H Lymphocytes % (Manual) 5.0 L Seg Neutrophils # Man 12.0 H Lymphocytes # (Manual) 0.7 L Monocytes # (Manual) PT INR D-Dimer Heparin Anti-Xa Level ABG pH 7.291 L ABG pO2 71.3 L ABG HCO3 30.6 H ABG O2 Saturation 93.6 L ABG Base Excess 3.3 H ABG Hemoglobin 8.1 L Oxyhemoglobin 91.2 L Sodium Chloride Carbon Dioxide BUN Creatinine Glucose POC Glucose 114 H Calcium Magnesium Ferritin AST ALT Alkaline Phosphatase Lactate Dehydrogenase Troponin T C-Reactive Protein NT-Pro-B Natriuret Pep Total Protein Albumin 01/25/20 01/25/20 01/25/20 04:22 06:05 17:28 WBC RBC Hgb Hct MCV RDW Plt Count Lymph % (Auto) [place] % (Auto) Lymph # Seg Neutrophils % Seg Neuts % (Manual) Lymphocytes % (Manual) Seg Neutrophils # Man Lymphocytes # (Manual) Monocytes # (Manual) PT INR D-Dimer Heparin Anti-Xa Level ABG pH 7.304 L ABG pO2 69.5 L ABG HCO3 29.7 H ABG O2 Saturation 93.2 L ABG Base Excess ABG Hemoglobin 8.7 L Oxyhemoglobin 90.7 L Sodium Chloride Carbon Dioxide BUN Creatinine Glucose POC Glucose 136 H 127 H Calcium Magnesium Ferritin AST ALT Alkaline Phosphatase Lactate Dehydrogenase Troponin T C-Reactive Protein NT-Pro-B Natriuret Pep Total Protein Albumin 01/26/20 01/26/20 01/26/20 00:20 02:31 02:31 WBC RBC Hgb Hct MCV RDW Plt Count Lymph % (Auto) [place] % (Auto) Lymph # Seg Neutrophils % Seg Neuts % (Manual) Lymphocytes % (Manual) Seg Neutrophils # Man Lymphocytes # (Manual) Monocytes # (Manual) PT INR D-Dimer Heparin Anti-Xa Level ABG pH ABG pO2 ABG HCO3 ABG O2 Saturation ABG Base Excess ABG Hemoglobin Oxyhemoglobin Sodium Chloride Carbon Dioxide BUN Creatinine Glucose POC Glucose 127 H Calcium Magnesium Ferritin 3764.0 H AST ALT Alkaline Phosphatase Lactate Dehydrogenase 393 H Troponin T C-Reactive Protein 28.60 H NT-Pro-B Natriuret Pep Total Protein Albumin 01/26/20 01/26/20 01/26/20 02:31 04:45 05:24 WBC RBC Hgb Hct MCV RDW Plt Count Lymph % (Auto) [place] % (Auto) Lymph # Seg Neutrophils % Seg Neuts % (Manual) Lymphocytes % (Manual) Seg Neutrophils # Man Lymphocytes # (Manual) Monocytes # (Manual) PT INR D-Dimer 3828.76 H Heparin Anti-Xa Level ABG pH ABG pO2 ABG HCO3 30.8 H ABG O2 Saturation ABG Base Excess 4.9 H ABG Hemoglobin 7.4 L Oxyhemoglobin 94.6 L Sodium Chloride Carbon Dioxide BUN Creatinine Glucose POC Glucose 121 H Calcium Magnesium Ferritin AST ALT Alkaline Phosphatase Lactate Dehydrogenase Troponin T C-Reactive Protein NT-Pro-B Natriuret Pep Total Protein Albumin 01/26/20 01/26/20 01/26/20 10:40 12:36 18:10 WBC RBC Hgb Hct MCV RDW Plt Count Lymph % (Auto) [place] % (Auto) Lymph # Seg Neutrophils % Seg Neuts % (Manual) Lymphocytes % (Manual) Seg Neutrophils # Man Lymphocytes # (Manual) Monocytes # (Manual) PT INR D-Dimer Heparin Anti-Xa Level ABG pH ABG pO2 ABG HCO3 ABG O2 Saturation ABG Base Excess ABG Hemoglobin Oxyhemoglobin Sodium Chloride Carbon Dioxide BUN Creatinine Glucose POC Glucose 119 H 126 H 159 H Calcium Magnesium Ferritin AST ALT Alkaline Phosphatase Lactate Dehydrogenase Troponin T C-Reactive Protein NT-Pro-B Natriuret Pep Total Protein Albumin 01/27/20 01/27/20 01/27/20 03:45 06:15 12:19 WBC RBC Hgb Hct MCV RDW Plt Count Lymph % (Auto) [place] % (Auto) Lymph # Seg Neutrophils % Seg Neuts % (Manual) Lymphocytes % (Manual) Seg Neutrophils # Man Lymphocytes # (Manual) Monocytes # (Manual) PT INR D-Dimer Heparin Anti-Xa Level ABG pH 7.307 L ABG pO2 91.1 H ABG HCO3 30.5 H ABG O2 Saturation ABG Base Excess 3.4 H ABG Hemoglobin 8.7 L Oxyhemoglobin 94.3 L Sodium Chloride Carbon Dioxide BUN Creatinine Glucose POC Glucose 147 H 164 H Calcium Magnesium Ferritin AST ALT Alkaline Phosphatase Lactate Dehydrogenase Troponin T C-Reactive Protein NT-Pro-B Natriuret Pep Total Protein Albumin 01/27/20 01/28/20 01/28/20 17:42 00:29 04:34 WBC RBC Hgb Hct MCV RDW Plt Count Lymph % (Auto) [place] % (Auto) Lymph # Seg Neutrophils % Seg Neuts % (Manual) Lymphocytes % (Manual) Seg Neutrophils # Man Lymphocytes # (Manual) Monocytes # (Manual) PT INR D-Dimer Heparin Anti-Xa Level ABG pH ABG pO2 ABG HCO3 ABG O2 Saturation ABG Base Excess ABG Hemoglobin Oxyhemoglobin Sodium Chloride Carbon Dioxide BUN Creatinine Glucose POC Glucose 149 H 178 H Calcium Magnesium Ferritin > 2000.0 H AST ALT Alkaline Phosphatase Lactate Dehydrogenase Troponin T C-Reactive Protein NT-Pro-B Natriuret Pep Total Protein Albumin 01/28/20 01/28/20 01/28/20 04:34 04:34 05:20 WBC RBC Hgb Hct MCV RDW Plt Count Lymph % (Auto) [place] % (Auto) Lymph # Seg Neutrophils % Seg Neuts % (Manual) Lymphocytes % (Manual) Seg Neutrophils # Man Lymphocytes # (Manual) Monocytes # (Manual) PT INR D-Dimer 2379 H Heparin Anti-Xa Level ABG pH 7.237 L ABG pO2 90.9 H ABG HCO3 29.1 H ABG O2 Saturation ABG Base Excess ABG Hemoglobin 7.5 L Oxyhemoglobin 94.0 L Sodium Chloride Carbon Dioxide BUN Creatinine Glucose POC Glucose Calcium Magnesium Ferritin AST ALT Alkaline Phosphatase Lactate Dehydrogenase 434 H Troponin T C-Reactive Protein 9.70 H NT-Pro-B Natriuret Pep Total Protein Albumin 04/01/28/20 01/28/20 06:21 12:25 18:17 WBC RBC Hgb Hct MCV RDW Plt Count Lymph % (Auto) [place] % (Auto) Lymph # Seg Neutrophils % Seg Neuts % (Manual) Lymphocytes % (Manual) Seg Neutrophils # Man Lymphocytes # (Manual) Monocytes # (Manual) PT INR D-Dimer Heparin Anti-Xa Level ABG pH ABG pO2 ABG HCO3 ABG O2 Saturation ABG Base Excess ABG Hemoglobin Oxyhemoglobin Sodium Chloride Carbon Dioxide BUN Creatinine Glucose POC Glucose 127 H 196 H 190 H Calcium Magnesium Ferritin AST ALT Alkaline Phosphatase Lactate Dehydrogenase Troponin T C-Reactive Protein NT-Pro-B Natriuret Pep Total Protein Albumin 01/28/20 01/29/20 01/29/20 23:35 04:00 04:00 WBC 12.6 H RBC 3.01 L Hgb 9.2 L Hct 29.3 L MCV 98 H RDW 18.1 H Plt Count Lymph % (Auto) [place] % (Auto) Lymph # Seg Neutrophils % Seg Neuts % (Manual) Lymphocytes % (Manual) Seg Neutrophils # Man Lymphocytes # (Manual) Monocytes # (Manual) PT INR D-Dimer Heparin Anti-Xa Level ABG pH ABG pO2 ABG HCO3 ABG O2 Saturation ABG Base Excess ABG Hemoglobin Oxyhemoglobin Sodium 132 L Chloride 90.1 L Carbon Dioxide BUN 50 H Creatinine 3.7 H Glucose 184 H POC Glucose 177 H Calcium Magnesium Ferritin AST 93 H ALT Alkaline Phosphatase 678 H Lactate Dehydrogenase Troponin T C-Reactive Protein NT-Pro-B Natriuret Pep Total Protein Albumin 1.7 L 01/29/20 01/29/20 01/29/20 05:03 11:53 16:44 WBC RBC Hgb Hct MCV RDW Plt Count Lymph % (Auto) [place] % (Auto) Lymph # Seg Neutrophils % Seg Neuts % (Manual) Lymphocytes % (Manual) Seg Neutrophils # Man Lymphocytes # (Manual) Monocytes # (Manual) PT INR D-Dimer Heparin Anti-Xa Level ABG pH ABG pO2 ABG HCO3 ABG O2 Saturation ABG Base Excess ABG Hemoglobin Oxyhemoglobin Sodium Chloride Carbon Dioxide BUN Creatinine Glucose POC Glucose 145 H 193 H 174 H Calcium Magnesium Ferritin AST ALT Alkaline Phosphatase Lactate Dehydrogenase Troponin T C-Reactive Protein NT-Pro-B Natriuret Pep Total Protein Albumin 01/29/20 01/30/20 01/30/20 23:38 04:25 11:45 WBC RBC Hgb Hct MCV RDW Plt Count Lymph % (Auto) [place] % (Auto) Lymph # Seg Neutrophils % Seg Neuts % (Manual) Lymphocytes % (Manual) Seg Neutrophils # Man Lymphocytes # (Manual) Monocytes # (Manual) PT INR D-Dimer Heparin Anti-Xa Level ABG pH 7.253 L ABG pO2 61.8 L ABG HCO3 29.7 H ABG O2 Saturation 90.1 L ABG Base Excess ABG Hemoglobin 8.2 L Oxyhemoglobin 87.5 L Sodium Chloride Carbon Dioxide BUN Creatinine Glucose POC Glucose 144 H 191 H Calcium Magnesium Ferritin AST ALT Alkaline Phosphatase Lactate Dehydrogenase Troponin T C-Reactive Protein NT-Pro-B Natriuret Pep Total Protein Albumin 01/30/20 01/31/20 01/31/20 18:21 00:04 03:52 WBC RBC Hgb Hct MCV RDW Plt Count Lymph % (Auto) [place] % (Auto) Lymph # Seg Neutrophils % Seg Neuts % (Manual) Lymphocytes % (Manual) Seg Neutrophils # Man Lymphocytes # (Manual) Monocytes # (Manual) PT INR D-Dimer Heparin Anti-Xa Level ABG pH ABG pO2 69.3 L ABG HCO3 29.4 H ABG O2 Saturation ABG Base Excess 3.7 H ABG Hemoglobin 10.8 L Oxyhemoglobin Sodium Chloride Carbon Dioxide BUN Creatinine Glucose POC Glucose 198 H 129 H Calcium Magnesium Ferritin AST ALT Alkaline Phosphatase Lactate Dehydrogenase Troponin T C-Reactive Protein NT-Pro-B Natriuret Pep Total Protein Albumin 01/31/20 01/31/20 01/31/20 04:00 04:16 05:12 WBC 16.7 H RBC 2.73 L Hgb 8.3 L Hct 25.7 L MCV RDW 18.0 H Plt Count Lymph % (Auto) [place] % (Auto) Lymph # Seg Neutrophils % Seg Neuts % (Manual) 92.0 H Lymphocytes % (Manual) 2.0 L Seg Neutrophils # Man 15.4 H Lymphocytes # (Manual) 0.3 L Monocytes # (Manual) 1.0 H PT INR D-Dimer Heparin Anti-Xa Level ABG pH ABG pO2 ABG HCO3 ABG O2 Saturation ABG Base Excess ABG Hemoglobin Oxyhemoglobin Sodium 130 L Chloride 90.1 L Carbon Dioxide BUN 61 H Creatinine 3.4 H Glucose 128 H POC Glucose 157 H Calcium Magnesium Ferritin AST 103 H ALT 63 H Alkaline Phosphatase 534 H Lactate Dehydrogenase Troponin T C-Reactive Protein NT-Pro-B Natriuret Pep Total Protein Albumin 2.1 L 01/31/20 01/31/20 01/31/20 11:50 17:39 18:47 WBC RBC Hgb Hct MCV RDW Plt Count Lymph % (Auto) [place] % (Auto) Lymph # Seg Neutrophils % Seg Neuts % (Manual) Lymphocytes % (Manual) Seg Neutrophils # Man Lymphocytes # (Manual) Monocytes # (Manual) PT INR D-Dimer Heparin Anti-Xa Level ABG pH ABG pO2 ABG HCO3 ABG O2 Saturation ABG Base Excess ABG Hemoglobin Oxyhemoglobin Sodium Chloride Carbon Dioxide BUN Creatinine Glucose POC Glucose 129 H 51 L 172 H Calcium Magnesium Ferritin AST ALT Alkaline Phosphatase Lactate Dehydrogenase Troponin T C-Reactive Protein NT-Pro-B Natriuret Pep Total Protein Albumin 02/01/20 02/01/20 02/01/20 03:49 03:49 05:00 WBC 17.4 H RBC 2.68 L Hgb 8.0 L Hct 25.2 L MCV RDW 18.4 H Plt Count Lymph % (Auto) [place] % (Auto) Lymph # Seg Neutrophils % Seg Neuts % (Manual) Lymphocytes % (Manual) Seg Neutrophils # Man Lymphocytes # (Manual) Monocytes # (Manual) PT INR D-Dimer Heparin Anti-Xa Level ABG pH 7.290 L ABG pO2 ABG HCO3 26.8 H ABG O2 Saturation ABG Base Excess ABG Hemoglobin 7.5 L Oxyhemoglobin 94.2 L Sodium 133 L Chloride 90.8 L Carbon Dioxide 21 L BUN 90 H Creatinine 4.6 H Glucose 145 H POC Glucose Calcium Magnesium Ferritin AST ALT Alkaline Phosphatase Lactate Dehydrogenase Troponin T C-Reactive Protein NT-Pro-B Natriuret Pep Total Protein Albumin 02/01/20 02/01/20 05:34 06:09 WBC RBC Hgb Hct MCV RDW Plt Count Lymph % (Auto) [place] % (Auto) Lymph # Seg Neutrophils % Seg Neuts % (Manual) Lymphocytes % (Manual) Seg Neutrophils # Man Lymphocytes # (Manual) Monocytes # (Manual) PT INR D-Dimer Heparin Anti-Xa Level ABG pH ABG pO2 ABG HCO3 ABG O2 Saturation ABG Base Excess ABG Hemoglobin Oxyhemoglobin Sodium Chloride Carbon Dioxide BUN Creatinine Glucose POC Glucose 166 H 143 H Calcium Magnesium Ferritin AST ALT Alkaline Phosphatase Lactate Dehydrogenase Troponin T C-Reactive Protein NT-Pro-B Natriuret Pep Total Protein Albumin Allied health notes reviewed: nursing
--- NOTE | 2020-02-01 12:01 | Progress Note ---
Assessment and Plan Cultures: 01/10/2020 blood culture: No growth 01/21/2020 sputum culture: No growth 01/25/2020 blood culture: No growth A/P: #Sepsis with shock: likely due to severe COVID pneumonia. Completed empiric Cefepime x 5 days. #Severe COVID pneumonia: very elevated inflammatory markers. S/p ivermectin x 1 on 01/21/2020 (off label use). S/p hydroxychloroquine with zinc x 5 days. #Acute hypoxic resp failure: intubated, on the vent #ESRD on HD #Thrombocytopenia: resolved #Elevated LFTs: etiology unclear. Bilirubin is normal. Alk phos and transaminases elevated. May need to consider RUQ US if hemodynamic instability or new fevers. Recs: continue supportive care and weaning of ventilatory support LFTs ordered for XENA Hannon MD, FACP [facility] C: [phone] O: [phone] F: [phone] Subjective Date of service: 02/01/20 Principal diagnosis: Pneumonia Interval history: One low grade temperature, otherwise she remains afebrile. Remains intubated, on the vent. On dialysis. PUI?: Yes COVID19: Positive Objective - Exam Narrative Exam: Physical Exam (reviewed in chart due to PPE conservation) Constitutional: intubated, on the vent Head, Ears, Nose: normocephalic, atraumatic Eyes: limited due to PPE conservation strategy Neck: intubated Oral: intubated Cardiovascular: limited due to PPE conservation strategy Respiratory: limited due to PPE conservation strategy GI: limited due to PPE conservation strategy Musculoskeletal: limited due to PPE conservation strategy Skin: limited due to PPE conservation strategy Hem/Lymphatic: limited due to PPE conservation strategy Psych: no agitation Neurological: intubated, on the vent, exam limited. - Constitutional Vitals: Vital Signs Temp Pulse Resp BP Pulse Ox 98.1 F 89 12 103/44 92 02/01/20 11:18 02/01/20 11:45 02/01/20 11:18 02/01/20 11:45 02/01/20 11:18 Temperature -Last 24 Hours Temperature 98.1 F Temperature 100.6 F Temperature 99.1 F Temperature 99.2 F Temperature 98.3 F Temperature 98.8 F - Labs CBC & Chem 7: 02/01/20 03:49 02/01/20 03:49 Labs: Abnormal lab results 01/31/20 01/31/20 02/01/20 Range/Units 17:39 18:47 03:49 WBC (4.5-11.0) K/mm3 RBC (3.65-5.03) M/mm3 Hgb (10.1-14.3) gm/dl Hct (30.3-42.9) % RDW (13.2-15.2) % ABG pH (7.350-7.450) pH Units ABG HCO3 (20.0-26.0) mmol/L ABG Hemoglobin (12.0-16.0) gm/dl Oxyhemoglobin (95.0-99.0) % Sodium 133 L (137-145) mmol/L Chloride 90.8 L (98-107) mmol/L Carbon Dioxide 21 L (22-30) mmol/L BUN 90 H (7-17) mg/dL Creatinine 4.6 H (0.7-1.2) mg/dL Glucose 145 H (65-100) mg/dL POC Glucose 51 L 172 H (70-105) 02/01/20 02/01/20 02/01/20 Range/Units 03:49 05:00 05:34 WBC 17.4 H (4.5-11.0) K/mm3 RBC 2.68 L (3.65-5.03) M/mm3 Hgb 8.0 L (10.1-14.3) gm/dl Hct 25.2 L (30.3-42.9) % RDW 18.4 H (13.2-15.2) % ABG pH 7.290 L (7.350-7.450) pH Units ABG HCO3 26.8 H (20.0-26.0) mmol/L ABG Hemoglobin 7.5 L (12.0-16.0) gm/dl Oxyhemoglobin 94.2 L (95.0-99.0) % Sodium (137-145) mmol/L Chloride (98-107) mmol/L Carbon Dioxide (22-30) mmol/L BUN (7-17) mg/dL Creatinine (0.7-1.2) mg/dL Glucose (65-100) mg/dL POC Glucose 166 H (70-105) 01/31/ Range/Units 06:09 WBC (4.5-11.0) K/mm3 RBC (3.65-5.03) M/mm3 Hgb (10.1-14.3) gm/dl Hct (30.3-42.9) % RDW (13.2-15.2) % ABG pH (7.350-7.450) pH Units ABG HCO3 (20.0-26.0) mmol/L ABG Hemoglobin (12.0-16.0) gm/dl Oxyhemoglobin (95.0-99.0) % Sodium (137-145) mmol/L Chloride (98-107) mmol/L Carbon Dioxide (22-30) mmol/L BUN (7-17) mg/dL Creatinine (0.7-1.2) mg/dL Glucose (65-100) mg/dL POC Glucose 143 H (70-105)
[2020-02-01] MEDS: MORPHINE 2 MG/1 ML INJ IV PRN ×2 (12:51→17:47)
[2020-02-01] MEDS: NORepinephrine/NS 4 MG-250 ML 4 MG/250 ML BAG IV SCH (18:25)
--- NOTE | 2020-02-01 18:59 | Ultrasound Report ---
ULTRASOUND ABDOMEN, COMPLETE INDICATION: Elevated alkaline phosphatase. COMPARISON: None available. FINDINGS: PANCREAS: No significant abnormality. ABDOMINAL AORTA: No significant abnormality. IVC: No significant abnormality.. LIVER: No significant abnormality. GALLBLADDER: Not seen. BILE DUCTS: No significant abnormality. Common bile duct measures 2.3 mm. KIDNEYS: Right: 8.8 cm in length with diffuse increased echogenicity of the renal cortex. Left: 7.8 cm in length with diffuse increased echogenicity of the renal cortex. SPLEEN: Multiple small calcified granulomata. FREE FLUID: None. ADDITIONAL FINDINGS: None. IMPRESSION: 1. Small kidneys with findings characteristic of medical renal disease bilaterally. 2. Nonvisualization of the gallbladder. 3. No sonographic abnormality of the liver or bile ducts. Signer Name: Leland Cannon MD Signed: 02/01/2020 6:55 PM Workstation Name: [id number]
[2020-02-01] MEDS ORDERED: SODIUM CHLORIDE*PRIMING MACHINE ONLY FOR DIALYSIS MC ONE (20:52)
[2020-02-02 05:42] LABS: ABG Base Excess 1.4 mmol/L (-2.0-3.0); ABG HCO3 28.2 mmol/L (20.0-26.0); ABG Methemoglobin 0.6 % (0.0-1.5); ABG Oxygen Saturation 96.5 % (95.0-99.0); ABG PCO2 56.4 mm Hg; ABG PH 7.317 pH Units (7.350-7.450)
[2020-02-02 06:15] LABS: Hematocrit 26.3 % (30.3-42.9); Hemoglobin 8.3 gm/dl (10.1-14.3); Mean Corpuscular HGB Conc 32 % (30-34); Mean Corpuscular Volume 92 fl (79-97); Platelet Count 416 K/mm3 (140-440); Red Blood Count 2.85 M/mm3 (3.65-5.03); Red Cell Distribution Width 18.6 % (13.2-15.2)
[2020-02-02 06:22] LABS: Albumin 2.3 g/dL (3.9-5); Bilirubin,Direct 0.3 mg/dL (0-0.2)
[2020-02-02 06:31] LABS: Calcium 8.1 mg/dL (8.4-10.2)
[2020-02-02 07:04] LABS: Basophils % (Manual) 0 % (0.0-1.8); Hypochromasia 1+; Total Cells Counted 100
[2020-02-02 07:05] LABS: Platelet Estimate Consistent w Auto; Target Cells Few
[2020-02-02] MEDS: ENOXAPARIN 80 MG/0.8 ML INJ SUB-Q SCH ×2 (08:14→10:41)
[2020-02-02] MEDS: FAMOTIDINE 20 MG TAB PO SCH ×2 (08:14→10:42)
--- NOTE | 2020-02-02 10:13 | Progress Note ---
Assessment and Plan - Patient Problems (1) COVID-19 virus infection Current Visit: Yes Status: Acute (2) Anemia in CKD (chronic kidney disease) Current Visit: Yes Status: Acute Qualifiers: Chronic kidney disease stage: on chronic dialysis Qualified Code(s): N18.6 - End stage renal disease; D63.1 - Anemia in chronic kidney disease; Z99.2 - Dependence on renal dialysis (3) Bilateral pulmonary infiltrates on chest x-ray Current Visit: Yes Status: Acute (4) Pneumonia due to COVID-19 virus Current Visit: Yes Status: Acute (5) Sepsis with hypotension Current Visit: Yes Status: Acute (6) T2DM (type 2 diabetes mellitus) Current Visit: Yes Status: Acute Qualifiers: Diabetes mellitus mcc insulin use: unspecified mcc insulin use status (7) Volume overload Current Visit: Yes Status: Acute Qualifiers: (8) Secondary hyperparathyroidism (of renal origin) Current Visit: Yes Status: Chronic (9) Acute respiratory failure with hypoxia Current Visit: No Status: Acute (10) End stage renal disease on dialysis Current Visit: No Status: Chronic Subjective Principal diagnosis: Pneumonia Interval history: on vent Objective Vital Signs - 12hr 02/01/20 02/01/20 02/01/20 22:15 22:31 22:45 Temperature Pulse Rate 120 H 119 H 119 H Pulse Rate [ From Monitor] Respiratory 19 14 19 Rate Blood Pressure 124/63 130/61 130/61 O2 Sat by Pulse 47 L 97 99 Oximetry O2 Sat by Pulse Oximetry [ Anterior Bilateral Throughout] 02/01/20 02/01/20 02/01/20 23:01 23:15 23:31 Temperature Pulse Rate 119 H 119 H 121 H Pulse Rate [ From Monitor] Respiratory 23 20 21 Rate Blood Pressure 126/61 126/61 128/61 O2 Sat by Pulse 99 100 98 Oximetry O2 Sat by Pulse Oximetry [ Anterior Bilateral Throughout] 02/01/20 02/01/20 02/02/20 23:45 23:54 00:00 Temperature 97.8 F Pulse Rate 122 H 121 H Pulse Rate [ 121 H From Monitor] Respiratory 19 18 Rate Blood Pressure 128/61 O2 Sat by Pulse 99 98 Oximetry O2 Sat by Pulse Oximetry [ Anterior Bilateral Throughout] 02/02/20 02/02/20 02/02/20 00:01 00:15 00:30 Temperature Pulse Rate 120 H 120 H 122 H Pulse Rate [ From Monitor] Respiratory 18 22 21 Rate Blood Pressure 117/59 117/59 117/59 O2 Sat by Pulse 98 100 100 Oximetry O2 Sat by Pulse Oximetry [ Anterior Bilateral Throughout] 02/02/20 02/02/20 02/02/20 00:45 01:01 01:15 Temperature Pulse Rate 121 H 120 H 118 H Pulse Rate [ From Monitor] Respiratory 19 21 21 Rate Blood Pressure 125/60 127/53 125/60 O2 Sat by Pulse 100 98 99 Oximetry O2 Sat by Pulse Oximetry [ Anterior Bilateral Throughout] 02/02/20 02/02/20 02/02/20 01:31 01:45 02:01 Temperature Pulse Rate 118 H 119 H 118 H Pulse Rate [ From Monitor] Respiratory 18 21 20 Rate Blood Pressure 132/54 132/54 126/62 O2 Sat by Pulse 98 99 97 Oximetry O2 Sat by Pulse Oximetry [ Anterior Bilateral Throughout] 02/02/20 02/02/20 02/02/20 02:15 02:31 02:45 Temperature Pulse Rate 118 H 117 H 117 H Pulse Rate [ From Monitor] Respiratory 21 24 20 Rate Blood Pressure 126/62 136/58 131/60 O2 Sat by Pulse 98 97 98 Oximetry O2 Sat by Pulse Oximetry [ Anterior Bilateral Throughout] 02/02/20 02/02/20 02/02/20 03:01 03:15 03:31 Temperature Pulse Rate 118 H 117 H 117 H Pulse Rate [ From Monitor] Respiratory 17 22 19 Rate Blood Pressure 150/67 150/67 141/70 O2 Sat by Pulse 97 99 97 Oximetry O2 Sat by Pulse Oximetry [ Anterior Bilateral Throughout] 02/02/20 02/02/20 02/02/20 03:45 03:51 04:00 Temperature 99.1 F Pulse Rate 118 H 114 H Pulse Rate [ From Monitor] Respiratory 18 Rate Blood Pressure 148/69 O2 Sat by Pulse 99 Oximetry O2 Sat by Pulse Oximetry [ Anterior Bilateral Throughout] 02/02/20 02/02/20 02/02/20 04:01 04:15 04:31 Temperature Pulse Rate 116 H 116 H 114 H Pulse Rate [ From Monitor] Respiratory 22 17 18 Rate Blood Pressure 130/61 130/61 135/63 O2 Sat by Pulse 96 98 96 Oximetry O2 Sat by Pulse Oximetry [ Anterior Bilateral Throughout] 02/02/20 02/02/20 02/02/20 04:45 04:52 05:01 Temperature Pulse Rate 114 H 114 H 114 H Pulse Rate [ 110 H From Monitor] Respiratory 22 22 Rate Blood Pressure 135/63 134/61 140/68 O2 Sat by Pulse 98 98 95 Oximetry O2 Sat by Pulse Oximetry [ Anterior Bilateral Throughout] 02/02/20 02/02/20 02/02/20 05:15 05:31 05:45 Temperature Pulse Rate 114 H 113 H 113 H Pulse Rate [ From Monitor] Respiratory 20 21 21 Rate Blood Pressure 134/61 146/65 140/68 O2 Sat by Pulse 99 96 97 Oximetry O2 Sat by Pulse Oximetry [ Anterior Bilateral Throughout] 02/02/20 02/02/20 02/02/20 06:01 06:45 07:00 Temperature 99.1 F Pulse Rate 113 H 107 H 108 H Pulse Rate [ From Monitor] Respiratory 19 18 Rate Blood Pressure 149/69 127/63 122/62 O2 Sat by Pulse 96 Oximetry O2 Sat by Pulse 99 Oximetry [ Anterior Bilateral Throughout] 02/02/20 02/02/20 02/02/20 07:15 07:30 07:45 Temperature Pulse Rate 107 H 109 H 105 H Pulse Rate [ From Monitor] Respiratory Rate Blood Pressure 134/68 134/65 142/67 O2 Sat by Pulse Oximetry O2 Sat by Pulse Oximetry [ Anterior Bilateral Throughout] 02/02/20 02/02/20 02/02/20 08:00 08:15 08:30 Temperature 98.8 F Pulse Rate 106 H 107 H 108 H Pulse Rate [ From Monitor] Respiratory Rate Blood Pressure 143/67 139/67 133/65 O2 Sat by Pulse Oximetry O2 Sat by Pulse Oximetry [ Anterior Bilateral Throughout] 02/02/20 08:45 Temperature Pulse Rate 108 H Pulse Rate [ From Monitor] Respiratory Rate Blood Pressure 130/65 O2 Sat by Pulse Oximetry O2 Sat by Pulse Oximetry [ Anterior Bilateral Throughout] Constitutional: other (orally intubated, not sedated currently on vent. on AC 450 50%mv9.3) Eyes: non-icteric ENT: oropharynx moist Neck: supple Effort: normal Ascultation: Bilateral: rales Cardiovascular: regular rate and rhythm (no mrg) Gastrointestinal: normoactive bowel sounds, soft, non-tender, non-distended Integumentary: normal Extremities: no cyanosis, no edema, pink and warm Neurologic: normal mental status, non-focal exam, pupils equal and round, CN II- XII normal Psychiatric: mood appropriate, affect normal CBC and BMP: 02/02/20 05:44 02/02/20 05:44 ABG, PT/INR, D-dimer: ABG ABG pH 7.317 pH Units (7.350-7.450) L 02/02/20 05:00 ABG pCO2 56.4 mm Hg 02/02/20 05:00 ABG pO2 85.0 mm Hg (80.0-90.0) 02/02/20 05:00 ABG O2 Saturation 96.5 % (95.0-99.0) 02/02/20 05:00 PT/INR, D-dimer PT 15.6 Sec. (12.2-14.9) H 01/09/20 12:55 INR 1.22 (0.87-1.13) H 01/09/20 12:55 D-Dimer 2379 ng/mlDDU (0-234) H 01/28/20 04:34 Abnormal lab findings: Abnormal Labs 01/09/20 01/09/20 01/09/20 12:55 12:55 12:55 WBC 4.4 L RBC 3.44 L Hgb Hct MCV RDW 17.0 H Plt Count Lymph % (Auto) 6.8 L [place] % (Auto) 13.6 H Lymph # 0.3 L Seg Neutrophils % 79.0 H Seg Neuts % (Manual) Lymphocytes % (Manual) Seg Neutrophils # Man Lymphocytes # (Manual) Monocytes # (Manual) PT 15.6 H INR 1.22 H D-Dimer Heparin Anti-Xa Level ABG pH ABG pO2 ABG HCO3 ABG O2 Saturation ABG Base Excess ABG Hemoglobin Oxyhemoglobin Sodium 130 L Chloride 88.9 L Carbon Dioxide 20 L BUN 41 H Creatinine 7.6 H Glucose 115 H POC Glucose Calcium Magnesium Ferritin Direct Bilirubin AST ALT Alkaline Phosphatase 153 H Lactate Dehydrogenase Troponin T 0.382 H* C-Reactive Protein NT-Pro-B Natriuret Pep 71759 H Total Protein Albumin 3.2 L 01/09/20 01/10/20 01/10/20 20:14 00:16 06:54 WBC 3.3 L RBC 3.00 L Hgb 9.2 L Hct 27.8 L MCV RDW 17.2 H Plt Count Lymph % (Auto) 8.9 L [place] % (Auto) 11.5 H Lymph # 0.3 L Seg Neutrophils % 79.1 H Seg Neuts % (Manual) Lymphocytes % (Manual) Seg Neutrophils # Man Lymphocytes # (Manual) Monocytes # (Manual) PT INR D-Dimer Heparin Anti-Xa Level ABG pH ABG pO2 ABG HCO3 ABG O2 Saturation ABG Base Excess ABG Hemoglobin Oxyhemoglobin Sodium Chloride Carbon Dioxide BUN Creatinine Glucose POC Glucose Calcium Magnesium Ferritin Direct Bilirubin AST ALT Alkaline Phosphatase Lactate Dehydrogenase Troponin T 0.349 H* 0.328 H* C-Reactive Protein NT-Pro-B Natriuret Pep Total Protein Albumin 01/10/20 01/10/20 01/11/20 06:54 06:54 16:45 WBC RBC Hgb Hct MCV RDW Plt Count Lymph % (Auto) [place] % (Auto) Lymph # Seg Neutrophils % Seg Neuts % (Manual) Lymphocytes % (Manual) Seg Neutrophils # Man Lymphocytes # (Manual) Monocytes # (Manual) PT INR D-Dimer Heparin Anti-Xa Level ABG pH ABG pO2 ABG HCO3 ABG O2 Saturation ABG Base Excess ABG Hemoglobin Oxyhemoglobin Sodium 133 L Chloride 90.6 L Carbon Dioxide BUN 50 H Creatinine 8.4 H Glucose 101 H POC Glucose 106 H Calcium 8.1 L Magnesium Ferritin Direct Bilirubin AST ALT Alkaline Phosphatase 148 H Lactate Dehydrogenase Troponin T 0.315 H* C-Reactive Protein NT-Pro-B Natriuret Pep Total Protein 5.4 L Albumin 2.7 L 01/12/20 01/13/20 01/13/20 16:01 06:11 06:11 WBC 3.1 L RBC 3.25 L Hgb 9.8 L Hct MCV RDW 17.2 H Plt Count 136 L Lymph % (Auto) [place] % (Auto) Lymph # Seg Neutrophils % Seg Neuts % (Manual) Lymphocytes % (Manual) Seg Neutrophils # Man Lymphocytes # (Manual) Monocytes # (Manual) PT INR D-Dimer Heparin Anti-Xa Level ABG pH ABG pO2 ABG HCO3 ABG O2 Saturation ABG Base Excess ABG Hemoglobin Oxyhemoglobin Sodium 135 L Chloride 93.4 L Carbon Dioxide BUN 19 H Creatinine 4.5 H Glucose 120 H POC Glucose Calcium 7.8 L Magnesium 1.40 L Ferritin Direct Bilirubin AST ALT Alkaline Phosphatase Lactate Dehydrogenase Troponin T C-Reactive Protein NT-Pro-B Natriuret Pep Total Protein Albumin 01/16/20 01/16/20 01/16/20 08:35 11:49 14:11 WBC RBC Hgb Hct MCV RDW Plt Count Lymph % (Auto) [place] % (Auto) Lymph # Seg Neutrophils % Seg Neuts % (Manual) Lymphocytes % (Manual) Seg Neutrophils # Man Lymphocytes # (Manual) Monocytes # (Manual) PT INR D-Dimer Heparin Anti-Xa Level ABG pH ABG pO2 48.4 L ABG HCO3 30.5 H ABG O2 Saturation 81.9 L ABG Base Excess 4.6 H ABG Hemoglobin 10.5 L Oxyhemoglobin 80.1 L Sodium Chloride Carbon Dioxide BUN Creatinine Glucose POC Glucose 126 H 119 H Calcium Magnesium Ferritin Direct Bilirubin AST ALT Alkaline Phosphatase Lactate Dehydrogenase Troponin T C-Reactive Protein NT-Pro-B Natriuret Pep Total Protein Albumin 01/16/20 01/16/20 01/16/20 15:38 15:38 15:38 WBC RBC Hgb Hct MCV RDW Plt Count Lymph % (Auto) [place] % (Auto) Lymph # Seg Neutrophils % Seg Neuts % (Manual) Lymphocytes % (Manual) Seg Neutrophils # Man Lymphocytes # (Manual) Monocytes # (Manual) PT INR D-Dimer 1104.64 H Heparin Anti-Xa Level ABG pH ABG pO2 ABG HCO3 ABG O2 Saturation ABG Base Excess ABG Hemoglobin Oxyhemoglobin Sodium Chloride Carbon Dioxide BUN Creatinine Glucose POC Glucose Calcium Magnesium Ferritin > 2000.0 H Direct Bilirubin AST ALT Alkaline Phosphatase Lactate Dehydrogenase 690 H Troponin T C-Reactive Protein 24.10 H NT-Pro-B Natriuret Pep Total Protein Albumin 01/16/20 01/18/20 01/18/20 18:11 06:25 06:25 WBC RBC 3.15 L Hgb 9.4 L Hct 29.4 L MCV RDW 17.5 H Plt Count 135 L Lymph % (Auto) 3.8 L [place] % (Auto) Lymph # 0.2 L Seg Neutrophils % 88.8 H Seg Neuts % (Manual) Lymphocytes % (Manual) Seg Neutrophils # Man Lymphocytes # (Manual) Monocytes # (Manual) PT INR D-Dimer Heparin Anti-Xa Level ABG pH ABG pO2 ABG HCO3 ABG O2 Saturation ABG Base Excess ABG Hemoglobin Oxyhemoglobin Sodium Chloride 96.8 L Carbon Dioxide BUN 26 H Creatinine 4.2 H Glucose 115 H POC Glucose 130 H Calcium 8.2 L Magnesium Ferritin Direct Bilirubin AST ALT Alkaline Phosphatase Lactate Dehydrogenase 537 H Troponin T C-Reactive Protein 17.10 H NT-Pro-B Natriuret Pep Total Protein Albumin 01/18/20 01/18/20 01/18/20 06:25 06:25 12:15 WBC RBC Hgb Hct MCV RDW Plt Count Lymph % (Auto) [place] % (Auto) Lymph # Seg Neutrophils % Seg Neuts % (Manual) Lymphocytes % (Manual) Seg Neutrophils # Man Lymphocytes # (Manual) Monocytes # (Manual) PT INR D-Dimer 938.03 H Heparin Anti-Xa Level ABG pH ABG pO2 66.5 L ABG HCO3 30.1 H ABG O2 Saturation 93.2 L ABG Base Excess 4.6 H ABG Hemoglobin 10.0 L Oxyhemoglobin 91.3 L Sodium Chloride Carbon Dioxide BUN Creatinine Glucose POC Glucose Calcium Magnesium Ferritin 3105.0 H Direct Bilirubin AST ALT Alkaline Phosphatase Lactate Dehydrogenase Troponin T C-Reactive Protein NT-Pro-B Natriuret Pep Total Protein Albumin 01/20/20 01/20/20 01/20/20 07:37 07:37 07:37 WBC RBC Hgb Hct MCV RDW Plt Count Lymph % (Auto) [place] % (Auto) Lymph # Seg Neutrophils % Seg Neuts % (Manual) Lymphocytes % (Manual) Seg Neutrophils # Man Lymphocytes # (Manual) Monocytes # (Manual) PT INR D-Dimer 2072.25 H Heparin Anti-Xa Level ABG pH ABG pO2 ABG HCO3 ABG O2 Saturation ABG Base Excess ABG Hemoglobin Oxyhemoglobin Sodium Chloride Carbon Dioxide BUN Creatinine Glucose POC Glucose Calcium Magnesium Ferritin 1826.0 H Direct Bilirubin AST ALT Alkaline Phosphatase Lactate Dehydrogenase 496 H Troponin T C-Reactive Protein 19.30 H NT-Pro-B Natriuret Pep Total Protein Albumin 01/20/20 01/21/20 01/21/20 17:30 03:59 17:35 WBC RBC Hgb Hct MCV RDW Plt Count Lymph % (Auto) [place] % (Auto) Lymph # Seg Neutrophils % Seg Neuts % (Manual) Lymphocytes % (Manual) Seg Neutrophils # Man Lymphocytes # (Manual) Monocytes # (Manual) PT INR D-Dimer Heparin Anti-Xa Level ABG pH ABG pO2 61.1 L 67.4 L ABG HCO3 29.9 H 26.2 H ABG O2 Saturation 91.7 L 93.4 L ABG Base Excess 4.9 H ABG Hemoglobin 9.0 L 9.1 L Oxyhemoglobin 89.5 L 91.1 L Sodium 136 L Chloride Carbon Dioxide BUN 36 H Creatinine 4.9 H Glucose POC Glucose Calcium Magnesium Ferritin Direct Bilirubin AST ALT Alkaline Phosphatase Lactate Dehydrogenase Troponin T C-Reactive Protein NT-Pro-B Natriuret Pep Total Protein Albumin 01/21/20 01/22/20 01/22/20 Unknown 03:41 03:41 WBC RBC Hgb Hct MCV RDW Plt Count Lymph % (Auto) [place] % (Auto) Lymph # Seg Neutrophils % Seg Neuts % (Manual) Lymphocytes % (Manual) Seg Neutrophils # Man Lymphocytes # (Manual) Monocytes # (Manual) PT INR D-Dimer Heparin Anti-Xa Level ABG pH 7.465 H ABG pO2 48.9 L ABG HCO3 26.6 H ABG O2 Saturation 85.7 L ABG Base Excess ABG Hemoglobin 10.4 L Oxyhemoglobin 83.5 L Sodium Chloride Carbon Dioxide BUN Creatinine Glucose POC Glucose Calcium Magnesium Ferritin 6071.0 H Direct Bilirubin AST ALT Alkaline Phosphatase Lactate Dehydrogenase 963 H Troponin T C-Reactive Protein 30.00 H NT-Pro-B Natriuret Pep Total Protein Albumin 01/22/20 01/22/20 01/22/20 03:41 07:47 11:20 WBC RBC Hgb Hct MCV RDW Plt Count Lymph % (Auto) [place] % (Auto) Lymph # Seg Neutrophils % Seg Neuts % (Manual) Lymphocytes % (Manual) Seg Neutrophils # Man Lymphocytes # (Manual) Monocytes # (Manual) PT INR D-Dimer > 10919 H Heparin Anti-Xa Level ABG pH ABG pO2 66.7 L ABG HCO3 28.7 H ABG O2 Saturation 91.9 L ABG Base Excess ABG Hemoglobin 9.1 L Oxyhemoglobin 89.5 L Sodium Chloride 94.3 L Carbon Dioxide BUN 53 H Creatinine 6.5 H Glucose POC Glucose Calcium Magnesium Ferritin Direct Bilirubin AST ALT Alkaline Phosphatase Lactate Dehydrogenase Troponin T C-Reactive Protein NT-Pro-B Natriuret Pep Total Protein Albumin 01/22/20 01/22/20 01/23/20 11:49 Unknown 04:55 WBC 15.1 H RBC 3.05 L Hgb 8.8 L Hct 28.3 L MCV RDW 17.8 H Plt Count 125 L Lymph % (Auto) [place] % (Auto) Lymph # Seg Neutrophils % Seg Neuts % (Manual) Lymphocytes % (Manual) Seg Neutrophils # Man Lymphocytes # (Manual) Monocytes # (Manual) PT INR D-Dimer Heparin Anti-Xa Level ABG pH 7.340 L ABG pO2 77.7 L 136.3 H ABG HCO3 27.6 H 28.8 H ABG O2 Saturation ABG Base Excess ABG Hemoglobin 9.3 L 10.9 L Oxyhemoglobin 94.2 L Sodium Chloride Carbon Dioxide BUN Creatinine Glucose POC Glucose Calcium Magnesium Ferritin Direct Bilirubin AST ALT Alkaline Phosphatase Lactate Dehydrogenase Troponin T C-Reactive Protein NT-Pro-B Natriuret Pep Total Protein Albumin 01/23/20 01/23/20 01/23/20 06:23 07:07 12:23 WBC RBC Hgb Hct MCV RDW Plt Count Lymph % (Auto) [place] % (Auto) Lymph # Seg Neutrophils % Seg Neuts % (Manual) Lymphocytes % (Manual) Seg Neutrophils # Man Lymphocytes # (Manual) Monocytes # (Manual) PT INR D-Dimer Heparin Anti-Xa Level ABG pH ABG pO2 ABG HCO3 ABG O2 Saturation ABG Base Excess ABG Hemoglobin Oxyhemoglobin Sodium Chloride Carbon Dioxide BUN Creatinine Glucose POC Glucose 57 L 127 H 131 H Calcium Magnesium Ferritin Direct Bilirubin AST ALT Alkaline Phosphatase Lactate Dehydrogenase Troponin T C-Reactive Protein NT-Pro-B Natriuret Pep Total Protein Albumin 01/23/20 01/23/20 01/24/20 Unknown Unknown 04:00 WBC 16.2 H RBC 3.08 L Hgb 8.9 L Hct 28.6 L MCV RDW 17.8 H Plt Count 139 L Lymph % (Auto) [place] % (Auto) Lymph # Seg Neutrophils % Seg Neuts % (Manual) Lymphocytes % (Manual) Seg Neutrophils # Man Lymphocytes # (Manual) Monocytes # (Manual) PT INR D-Dimer Heparin Anti-Xa Level < 0.10 L ABG pH ABG pO2 ABG HCO3 ABG O2 Saturation ABG Base Excess ABG Hemoglobin Oxyhemoglobin Sodium Chloride Carbon Dioxide BUN Creatinine Glucose POC Glucose Calcium Magnesium Ferritin 4195.0 H Direct Bilirubin AST ALT Alkaline Phosphatase Lactate Dehydrogenase Troponin T C-Reactive Protein NT-Pro-B Natriuret Pep Total Protein Albumin 01/24/20 01/24/20 01/24/20 04:00 04:00 04:00 WBC RBC Hgb Hct MCV RDW Plt Count Lymph % (Auto) [place] % (Auto) Lymph # Seg Neutrophils % Seg Neuts % (Manual) Lymphocytes % (Manual) Seg Neutrophils # Man Lymphocytes # (Manual) Monocytes # (Manual) PT INR D-Dimer 5783.11 H Heparin Anti-Xa Level ABG pH 7.188 L* ABG pO2 70.8 L ABG HCO3 32.2 H ABG O2 Saturation 90.4 L ABG Base Excess ABG Hemoglobin 8.5 L Oxyhemoglobin 88.1 L Sodium Chloride Carbon Dioxide BUN Creatinine Glucose POC Glucose Calcium Magnesium Ferritin Direct Bilirubin AST ALT Alkaline Phosphatase Lactate Dehydrogenase 474 H Troponin T C-Reactive Protein 29.80 H NT-Pro-B Natriuret Pep Total Protein Albumin 01/24/20 01/24/20 01/24/20 05:20 05:51 09:14 WBC RBC Hgb Hct MCV RDW Plt Count Lymph % (Auto) [place] % (Auto) Lymph # Seg Neutrophils % Seg Neuts % (Manual) Lymphocytes % (Manual) Seg Neutrophils # Man Lymphocytes # (Manual) Monocytes # (Manual) PT INR D-Dimer Heparin Anti-Xa Level ABG pH 7.214 L ABG pO2 71.7 L ABG HCO3 31.5 H ABG O2 Saturation 91.8 L ABG Base Excess ABG Hemoglobin 9.1 L Oxyhemoglobin 89.3 L Sodium Chloride Carbon Dioxide BUN Creatinine Glucose POC Glucose 50 L 53 L Calcium Magnesium Ferritin Direct Bilirubin AST ALT Alkaline Phosphatase Lactate Dehydrogenase Troponin T C-Reactive Protein NT-Pro-B Natriuret Pep Total Protein Albumin 01/24/20 01/24/20 01/24/20 15:10 18:04 21:10 WBC RBC Hgb Hct MCV RDW Plt Count Lymph % (Auto) [place] % (Auto) Lymph # Seg Neutrophils % Seg Neuts % (Manual) Lymphocytes % (Manual) Seg Neutrophils # Man Lymphocytes # (Manual) Monocytes # (Manual) PT INR D-Dimer Heparin Anti-Xa Level ABG pH ABG pO2 ABG HCO3 ABG O2 Saturation ABG Base Excess ABG Hemoglobin Oxyhemoglobin Sodium Chloride Carbon Dioxide BUN Creatinine Glucose POC Glucose 114 H 51 L 144 H Calcium Magnesium Ferritin Direct Bilirubin AST ALT Alkaline Phosphatase Lactate Dehydrogenase Troponin T C-Reactive Protein NT-Pro-B Natriuret Pep Total Protein Albumin 01/24/20 01/25/20 01/25/20 Unknown 00:32 03:50 WBC 13.0 H RBC 3.10 L Hgb 9.2 L Hct 29.0 L MCV RDW 17.7 H Plt Count Lymph % (Auto) [place] % (Auto) Lymph # Seg Neutrophils % Seg Neuts % (Manual) 92.0 H Lymphocytes % (Manual) 5.0 L Seg Neutrophils # Man 12.0 H Lymphocytes # (Manual) 0.7 L Monocytes # (Manual) PT INR D-Dimer Heparin Anti-Xa Level ABG pH 7.291 L ABG pO2 71.3 L ABG HCO3 30.6 H ABG O2 Saturation 93.6 L ABG Base Excess 3.3 H ABG Hemoglobin 8.1 L Oxyhemoglobin 91.2 L Sodium Chloride Carbon Dioxide BUN Creatinine Glucose POC Glucose 114 H Calcium Magnesium Ferritin Direct Bilirubin AST ALT Alkaline Phosphatase Lactate Dehydrogenase Troponin T C-Reactive Protein NT-Pro-B Natriuret Pep Total Protein Albumin 01/25/20 01/25/20 01/25/20 04:22 06:05 17:28 WBC RBC Hgb Hct MCV RDW Plt Count Lymph % (Auto) [place] % (Auto) Lymph # Seg Neutrophils % Seg Neuts % (Manual) Lymphocytes % (Manual) Seg Neutrophils # Man Lymphocytes # (Manual) Monocytes # (Manual) PT INR D-Dimer Heparin Anti-Xa Level ABG pH 7.304 L ABG pO2 69.5 L ABG HCO3 29.7 H ABG O2 Saturation 93.2 L ABG Base Excess ABG Hemoglobin 8.7 L Oxyhemoglobin 90.7 L Sodium Chloride Carbon Dioxide BUN Creatinine Glucose POC Glucose 136 H 127 H Calcium Magnesium Ferritin Direct Bilirubin AST ALT Alkaline Phosphatase Lactate Dehydrogenase Troponin T C-Reactive Protein NT-Pro-B Natriuret Pep Total Protein Albumin 01/26/20 01/26/20 01/26/20 00:20 02:31 02:31 WBC RBC Hgb Hct MCV RDW Plt Count Lymph % (Auto) [place] % (Auto) Lymph # Seg Neutrophils % Seg Neuts % (Manual) Lymphocytes % (Manual) Seg Neutrophils # Man Lymphocytes # (Manual) Monocytes # (Manual) PT INR D-Dimer Heparin Anti-Xa Level ABG pH ABG pO2 ABG HCO3 ABG O2 Saturation ABG Base Excess ABG Hemoglobin Oxyhemoglobin Sodium Chloride Carbon Dioxide BUN Creatinine Glucose POC Glucose 127 H Calcium Magnesium Ferritin 3764.0 H Direct Bilirubin AST ALT Alkaline Phosphatase Lactate Dehydrogenase 393 H Troponin T C-Reactive Protein 28.60 H NT-Pro-B Natriuret Pep Total Protein Albumin 01/26/20 01/26/20 01/26/20 02:31 04:45 05:24 WBC RBC Hgb Hct MCV RDW Plt Count Lymph % (Auto) [place] % (Auto) Lymph # Seg Neutrophils % Seg Neuts % (Manual) Lymphocytes % (Manual) Seg Neutrophils # Man Lymphocytes # (Manual) Monocytes # (Manual) PT INR D-Dimer 3828.76 H Heparin Anti-Xa Level ABG pH ABG pO2 ABG HCO3 30.8 H ABG O2 Saturation ABG Base Excess 4.9 H ABG Hemoglobin 7.4 L Oxyhemoglobin 94.6 L Sodium Chloride Carbon Dioxide BUN Creatinine Glucose POC Glucose 121 H Calcium Magnesium Ferritin Direct Bilirubin AST ALT Alkaline Phosphatase Lactate Dehydrogenase Troponin T C-Reactive Protein NT-Pro-B Natriuret Pep Total Protein Albumin 01/26/20 01/26/20 01/26/20 10:40 12:36 18:10 WBC RBC Hgb Hct MCV RDW Plt Count Lymph % (Auto) [place] % (Auto) Lymph # Seg Neutrophils % Seg Neuts % (Manual) Lymphocytes % (Manual) Seg Neutrophils # Man Lymphocytes # (Manual) Monocytes # (Manual) PT INR D-Dimer Heparin Anti-Xa Level ABG pH ABG pO2 ABG HCO3 ABG O2 Saturation ABG Base Excess ABG Hemoglobin Oxyhemoglobin Sodium Chloride Carbon Dioxide BUN Creatinine Glucose POC Glucose 119 H 126 H 159 H Calcium Magnesium Ferritin Direct Bilirubin AST ALT Alkaline Phosphatase Lactate Dehydrogenase Troponin T C-Reactive Protein NT-Pro-B Natriuret Pep Total Protein Albumin 01/27/20 01/27/20 01/27/20 03:45 06:15 12:19 WBC RBC Hgb Hct MCV RDW Plt Count Lymph % (Auto) [place] % (Auto) Lymph # Seg Neutrophils % Seg Neuts % (Manual) Lymphocytes % (Manual) Seg Neutrophils # Man Lymphocytes # (Manual) Monocytes # (Manual) PT INR D-Dimer Heparin Anti-Xa Level ABG pH 7.307 L ABG pO2 91.1 H ABG HCO3 30.5 H ABG O2 Saturation ABG Base Excess 3.4 H ABG Hemoglobin 8.7 L Oxyhemoglobin 94.3 L Sodium Chloride Carbon Dioxide BUN Creatinine Glucose POC Glucose 147 H 164 H Calcium Magnesium Ferritin Direct Bilirubin AST ALT Alkaline Phosphatase Lactate Dehydrogenase Troponin T C-Reactive Protein NT-Pro-B Natriuret Pep Total Protein Albumin 01/27/20 01/28/20 01/28/20 17:42 00:29 04:34 WBC RBC Hgb Hct MCV RDW Plt Count Lymph % (Auto) [place] % (Auto) Lymph # Seg Neutrophils % Seg Neuts % (Manual) Lymphocytes % (Manual) Seg Neutrophils # Man Lymphocytes # (Manual) Monocytes # (Manual) PT INR D-Dimer Heparin Anti-Xa Level ABG pH ABG pO2 ABG HCO3 ABG O2 Saturation ABG Base Excess ABG Hemoglobin Oxyhemoglobin Sodium Chloride Carbon Dioxide BUN Creatinine Glucose POC Glucose 149 H 178 H Calcium Magnesium Ferritin > 2000.0 H Direct Bilirubin AST ALT Alkaline Phosphatase Lactate Dehydrogenase Troponin T C-Reactive Protein NT-Pro-B Natriuret Pep Total Protein Albumin 01/28/20 01/28/20 01/28/20 04:34 04:34 05:20 WBC RBC Hgb Hct MCV RDW Plt Count Lymph % (Auto) [place] % (Auto) Lymph # Seg Neutrophils % Seg Neuts % (Manual) Lymphocytes % (Manual) Seg Neutrophils # Man Lymphocytes # (Manual) Monocytes # (Manual) PT INR D-Dimer 2379 H Heparin Anti-Xa Level ABG pH 7.237 L ABG pO2 90.9 H ABG HCO3 29.1 H ABG O2 Saturation ABG Base Excess ABG Hemoglobin 7.5 L Oxyhemoglobin 94.0 L Sodium Chloride Carbon Dioxide BUN Creatinine Glucose POC Glucose Calcium Magnesium Ferritin Direct Bilirubin AST ALT Alkaline Phosphatase Lactate Dehydrogenase 434 H Troponin T C-Reactive Protein 9.70 H NT-Pro-B Natriuret Pep Total Protein Albumin 01/28/20 01/28/20 01/28/20 06:21 12:25 18:17 WBC RBC Hgb Hct MCV RDW Plt Count Lymph % (Auto) [place] % (Auto) Lymph # Seg Neutrophils % Seg Neuts % (Manual) Lymphocytes % (Manual) Seg Neutrophils # Man Lymphocytes # (Manual) Monocytes # (Manual) PT INR D-Dimer Heparin Anti-Xa Level ABG pH ABG pO2 ABG HCO3 ABG O2 Saturation ABG Base Excess ABG Hemoglobin Oxyhemoglobin Sodium Chloride Carbon Dioxide BUN Creatinine Glucose POC Glucose 127 H 196 H 190 H Calcium Magnesium Ferritin Direct Bilirubin AST ALT Alkaline Phosphatase Lactate Dehydrogenase Troponin T C-Reactive Protein NT-Pro-B Natriuret Pep Total Protein Albumin 01/28/20 01/29/2001/28/20 23:35 04:00 04:00 WBC 12.6 H RBC 3.01 L Hgb 9.2 L Hct 29.3 L MCV 98 H RDW 18.1 H Plt Count Lymph % (Auto) [place] % (Auto) Lymph # Seg Neutrophils % Seg Neuts % (Manual) Lymphocytes % (Manual) Seg Neutrophils # Man Lymphocytes # (Manual) Monocytes # (Manual) PT INR D-Dimer Heparin Anti-Xa Level ABG pH ABG pO2 ABG HCO3 ABG O2 Saturation ABG Base Excess ABG Hemoglobin Oxyhemoglobin Sodium 132 L Chloride 90.1 L Carbon Dioxide BUN 50 H Creatinine 3.7 H Glucose 184 H POC Glucose 177 H Calcium Magnesium Ferritin Direct Bilirubin AST 93 H ALT Alkaline Phosphatase 678 H Lactate Dehydrogenase Troponin T C-Reactive Protein NT-Pro-B Natriuret Pep Total Protein Albumin 1.7 L 01/29/20 01/29/20 01/29/20 05:03 11:53 16:44 WBC RBC Hgb Hct MCV RDW Plt Count Lymph % (Auto) [place] % (Auto) Lymph # Seg Neutrophils % Seg Neuts % (Manual) Lymphocytes % (Manual) Seg Neutrophils # Man Lymphocytes # (Manual) Monocytes # (Manual) PT INR D-Dimer Heparin Anti-Xa Level ABG pH ABG pO2 ABG HCO3 ABG O2 Saturation ABG Base Excess ABG Hemoglobin Oxyhemoglobin Sodium Chloride Carbon Dioxide BUN Creatinine Glucose POC Glucose 145 H 193 H 174 H Calcium Magnesium Ferritin Direct Bilirubin AST ALT Alkaline Phosphatase Lactate Dehydrogenase Troponin T C-Reactive Protein NT-Pro-B Natriuret Pep Total Protein Albumin 01/29/20 01/30/20 01/30/20 23:38 04:25 11:45 WBC RBC Hgb Hct MCV RDW Plt Count Lymph % (Auto) [place] % (Auto) Lymph # Seg Neutrophils % Seg Neuts % (Manual) Lymphocytes % (Manual) Seg Neutrophils # Man Lymphocytes # (Manual) Monocytes # (Manual) PT INR D-Dimer Heparin Anti-Xa Level ABG pH 7.253 L ABG pO2 61.8 L ABG HCO3 29.7 H ABG O2 Saturation 90.1 L ABG Base Excess ABG Hemoglobin 8.2 L Oxyhemoglobin 87.5 L Sodium Chloride Carbon Dioxide BUN Creatinine Glucose POC Glucose 144 H 191 H Calcium Magnesium Ferritin Direct Bilirubin AST ALT Alkaline Phosphatase Lactate Dehydrogenase Troponin T C-Reactive Protein NT-Pro-B Natriuret Pep Total Protein Albumin 01/30/20 01/31/20 01/31/20 18:21 00:04 03:52 WBC RBC Hgb Hct MCV RDW Plt Count Lymph % (Auto) [place] % (Auto) Lymph # Seg Neutrophils % Seg Neuts % (Manual) Lymphocytes % (Manual) Seg Neutrophils # Man Lymphocytes # (Manual) Monocytes # (Manual) PT INR D-Dimer Heparin Anti-Xa Level ABG pH ABG pO2 69.3 L ABG HCO3 29.4 H ABG O2 Saturation ABG Base Excess 3.7 H ABG Hemoglobin 10.8 L Oxyhemoglobin Sodium Chloride Carbon Dioxide BUN Creatinine Glucose POC Glucose 198 H 129 H Calcium Magnesium Ferritin Direct Bilirubin AST ALT Alkaline Phosphatase Lactate Dehydrogenase Troponin T C-Reactive Protein NT-Pro-B Natriuret Pep Total Protein Albumin 01/31/20 01/31/20 01/31/20 04:00 04:16 05:12 WBC 16.7 H RBC 2.73 L Hgb 8.3 L Hct 25.7 L MCV RDW 18.0 H Plt Count Lymph % (Auto) [place] % (Auto) Lymph # Seg Neutrophils % Seg Neuts % (Manual) 92.0 H Lymphocytes % (Manual) 2.0 L Seg Neutrophils # Man 15.4 H Lymphocytes # (Manual) 0.3 L Monocytes # (Manual) 1.0 H PT INR D-Dimer Heparin Anti-Xa Level ABG pH ABG pO2 ABG HCO3 ABG O2 Saturation ABG Base Excess ABG Hemoglobin Oxyhemoglobin Sodium 130 L Chloride 90.1 L Carbon Dioxide BUN 61 H Creatinine 3.4 H Glucose 128 H POC Glucose 157 H Calcium Magnesium Ferritin Direct Bilirubin AST 103 H ALT 63 H Alkaline Phosphatase 534 H Lactate Dehydrogenase Troponin T C-Reactive Protein NT-Pro-B Natriuret Pep Total Protein Albumin 2.1 L 01/31/20 01/31/20 01/31/20 11:50 17:39 18:47 WBC RBC Hgb Hct MCV RDW Plt Count Lymph % (Auto) [place] % (Auto) Lymph # Seg Neutrophils % Seg Neuts % (Manual) Lymphocytes % (Manual) Seg Neutrophils # Man Lymphocytes # (Manual) Monocytes # (Manual) PT INR D-Dimer Heparin Anti-Xa Level ABG pH ABG pO2 ABG HCO3 ABG O2 Saturation ABG Base Excess ABG Hemoglobin Oxyhemoglobin Sodium Chloride Carbon Dioxide BUN Creatinine Glucose POC Glucose 129 H 51 L 172 H Calcium Magnesium Ferritin Direct Bilirubin AST ALT Alkaline Phosphatase Lactate Dehydrogenase Troponin T C-Reactive Protein NT-Pro-B Natriuret Pep Total Protein Albumin 02/01/20 02/01/20 02/01/20 03:49 03:49 05:00 WBC 17.4 H RBC 2.68 L Hgb 8.0 L Hct 25.2 L MCV RDW 18.4 H Plt Count Lymph % (Auto) [place] % (Auto) Lymph # Seg Neutrophils % Seg Neuts % (Manual) Lymphocytes % (Manual) Seg Neutrophils # Man Lymphocytes # (Manual) Monocytes # (Manual) PT INR D-Dimer Heparin Anti-Xa Level ABG pH 7.290 L ABG pO2 ABG HCO3 26.8 H ABG O2 Saturation ABG Base Excess ABG Hemoglobin 7.5 L Oxyhemoglobin 94.2 L Sodium 133 L Chloride 90.8 L Carbon Dioxide 21 L BUN 90 H Creatinine 4.6 H Glucose 145 H POC Glucose Calcium Magnesium Ferritin Direct Bilirubin AST ALT Alkaline Phosphatase Lactate Dehydrogenase Troponin T C-Reactive Protein NT-Pro-B Natriuret Pep Total Protein Albumin 02/01/20 02/01/20 02/01/20 05:34 06:09 12:42 WBC RBC Hgb Hct MCV RDW Plt Count Lymph % (Auto) [place] % (Auto) Lymph # Seg Neutrophils % Seg Neuts % (Manual) Lymphocytes % (Manual) Seg Neutrophils # Man Lymphocytes # (Manual) Monocytes # (Manual) PT INR D-Dimer Heparin Anti-Xa Level ABG pH ABG pO2 ABG HCO3 ABG O2 Saturation ABG Base Excess ABG Hemoglobin Oxyhemoglobin Sodium Chloride Carbon Dioxide BUN Creatinine Glucose POC Glucose 166 H 143 H 218 H Calcium Magnesium Ferritin Direct Bilirubin AST ALT Alkaline Phosphatase Lactate Dehydrogenase Troponin T C-Reactive Protein NT-Pro-B Natriuret Pep Total Protein Albumin 02/01/20 02/01/20 02/02/20 17:38 18:24 05:00 WBC RBC Hgb Hct MCV RDW Plt Count Lymph % (Auto) [place] % (Auto) Lymph # Seg Neutrophils % Seg Neuts % (Manual) Lymphocytes % (Manual) Seg Neutrophils # Man Lymphocytes # (Manual) Monocytes # (Manual) PT INR D-Dimer Heparin Anti-Xa Level ABG pH 7.317 L ABG pO2 ABG HCO3 28.2 H ABG O2 Saturation ABG Base Excess ABG Hemoglobin 10.1 L Oxyhemoglobin 94.0 L Sodium Chloride Carbon Dioxide BUN Creatinine Glucose POC Glucose 158 H 233 H Calcium Magnesium Ferritin Direct Bilirubin AST ALT Alkaline Phosphatase Lactate Dehydrogenase Troponin T C-Reactive Protein NT-Pro-B Natriuret Pep Total Protein Albumin 02/02/20 02/02/20 02/02/20 05:44 05:44 05:44 WBC 16.0 H RBC 2.85 L Hgb 8.3 L Hct 26.3 L MCV RDW 18.6 H Plt Count Lymph % (Auto) [place] % (Auto) Lymph # Seg Neutrophils % Seg Neuts % (Manual) 91.0 H Lymphocytes % (Manual) 2.0 L Seg Neutrophils # Man 14.6 H Lymphocytes # (Manual) 0.3 L Monocytes # (Manual) PT INR D-Dimer Heparin Anti-Xa Level 0.77 H ABG pH ABG pO2 ABG HCO3 ABG O2 Saturation ABG Base Excess ABG Hemoglobin Oxyhemoglobin Sodium Chloride 95.5 L Carbon Dioxide BUN 57 H Creatinine 3.0 H Glucose 144 H POC Glucose Calcium 8.1 L Magnesium Ferritin Direct Bilirubin 0.3 H AST 179 H ALT 106 H Alkaline Phosphatase 557 H Lactate Dehydrogenase Troponin T C-Reactive Protein NT-Pro-B Natriuret Pep Total Protein 6.1 L Albumin 2.3 L Allied health notes reviewed: nursing
[2020-02-02] MEDS: VALSARTAN 40 MG TAB PO SCH (10:41)
[2020-02-02] MEDS: DOCUSATE SODIUM 100 MG/10 ML ORAL LIQD PO SCH ×2 (10:41→21:41)
--- NOTE | 2020-02-02 10:45 | Progress Note ---
Assessment and Plan Assessment and plan: Suspected COVID- 19 Patient with very elevated inflammatory markers of ferritin, CRP, LDH and d- dimer. Bilateral pneumonia. Continue antibiotics per ID ARDS. Etiology secondary to above. Acute hypoxemic respiratory failure. Continue oxygen to maintain sats greater than 92% Appears stable on HFNC; wean FiO2 then flow Chest pain Stress test neg for ischemia GERD and costochondritis in differential diagnosis Volume overload s/p hemodialysis Nephrology consulted,following Acute on Chronic diastolic CHF exacerbation Secondary to volume overload End stage renal disease on dialysis Nephrology following T2DM (type 2 diabetes mellitus) Continue continue coverage Check hemoglobin A1c Hypertension Continue antihypertensives Hyponatremia Secondary to increased volume--dilutional DVT prophylaxis On heparin and GI prophylaxis 01/11 Covid 19 survey testing sent, nasal swab done 01/10 01/12 Patient has acute resp failure. may need Oxygen on dc. awaiting Covid result 01/13 Still has shortness of breath, awaiting Covid test. 01/14 Pt still dyspneic, await covid testing, Pulse ox 83% 01/16/2020. Patient remains dyspneic. Follow-up COVID testing. 01/17/2020. Patient still requiring large amounts of oxygen. Patient currently with 15 L satting at 95%. Patient with increased inflammatory markers. Follow- up chest x-ray today. 01/18/20--Patient still requiring large amounts of oxygen. Patient currently with 15 L %. Patient with increased inflammatory markers. 01/19/2020 very elevated inflammatory markers- ferritin> 2000, CRP >24, LDH> 600, d-dimer >1000 putting her at high risk for ARDS. Continue hydroxychloroquine 400 mg PO BID for 1 day then 200 mg PO BID for 4 days (total 5 days) with zinc 220 mg PO qday. Continue ceftriaxone. ContinueCOVID isolationprecautions pe r [facility]. Continue serial Ferritin, LDH, D-Dimer, CRP every 48h 01/20/2020. Inflammatory markers remain elevated with ferritin 1826, LDH 496, CRP 19.3, and d-dimer 2072. Patient requiring high flow nasal cannula 40L, FiO2 80%. Pulmonary following. Continue antibiotics and Plaquenil. Continue COVID isolationprecautions per [facility] protocol. Patient has a high risk mortality and remains guarded. 01/21/2020. Continue antibiotics and Plaquenil. Continue COVID isolationprecautions per [facility] protocol. Maintain sats of 88% and greater. Still on HFNC, O2 weaned to 95% overnight. Sats documented at 98%. Pulmonary following and reports If patient progresses could give bipap a one hour trial to see if there is improvement, repeat ABG, if not would suggest elective intubation 01/22/2020 Patient still critically ill. Yesterday 01/20 had cardiopulmonary arrest so now intubated in ICU. Prognosis guarded. 01/23/2020 still critically ill. No more fever. Continue vent management. 01/24/20 Still critically ill, remain on vent. Continue current management. Will call . 01/25/20 Patient still critically ill. I called Davis Hernandez and gave update. He wants DNR status and says he will request withdrawal of care if patient does not get better after weekend. I discussed with [employer] Professor. 01/26/20 patient still intubated, on vent. She means a DNR order. Discussed with Nurse 01/26 patient still critically ill, vent dependent. 01/27 patient still intubated, on vent. On levophed to keep MAP>65mmhg 01/29/2020 patient still intubated on mechanical ventilation. AC mode ventila tion with rate 20, tidal volume 400, FiO2 45% and PEEP 12. patient with no fever. Patient currently with sedation of propofol. Patient received hemodialysis yesterday with approximately 3 L removed. 01/30/2020. Patient still on mechanical ventilation. AC mode ventilation with rate 20, tidal volume 400, FiO2 45% and PEEP 8. Patient with elevated alkaline phosphatase. Check abdominal ultrasound. 01/31/2020. Patient still on mechanical ventilation. PSV mode ventilation with FiO2 50% and PEEP 8 and PS=12. Follow-up abdominal ultrasound for elevated alkaline phosphatase 02/01/2020. Patient currently with PSV FiO2 50%, pressure support 12, PEEP 8. Continue PSV trials per pulmonary. Continue Levophed to maintain MAP greater than 65. Continue propofol for sedation. 02/02/2020. Patient currently on AC mode ventilation rate 20, tidal volume 450, FiO2 50% and PEEP of 6. ABG with pH of 7.31, PCO2 56.4, and PO2 85. Patient confirmed COVID-19 positive on 01/17/2020. Patient with MOS F and guarded prognosis. Follow-up abdominal ultrasound (ordered 3 days ago) for elevated alkaline phosphatase and fevers. The high probability of a clinically significant, sudden or life threatening deterioration of the [immunologic and respiratory] system(s) required my full and direct attention, intervention and personal management. The aggregate critical care time was [31] minutes. This time is in addition to time spent performing reported procedures but includes the following: [x] Data Review and interpretation [x] Patient assessment and monitoring of vital signs [x] Documentation [x] Medication orders and management History Interval history: Patient on mechanical ventilation. Hospitalist Physical - Constitutional Vitals: Temp Pulse Resp BP Pulse Ox 98.9 F 113 H 18 116/65 100 02/02/20 10:15 02/02/20 10:15 02/02/20 10:15 02/02/20 10:15 02/02/20 10:15 General appearance: Present: no acute distress - EENT Eyes: Present: PERRL, EOM intact ENT: hearing intact, clear oral mucosa, dentition normal - Neck Neck: Present: supple, normal ROM - Respiratory Respiratory effort: normal Respiratory: bilateral: CTA - Cardiovascular Rhythm: regular Heart Sounds: Present: S1 & S2. Absent: gallop, rub - Extremities Extremities: no ischemia, No edema, Full ROM - Abdominal General gastrointestinal: soft, non-tender, non-distended, normal bowel sounds - Integumentary Integumentary: Present: clear, warm, dry - Neurologic Neurologic: CNII-XII intact, moves all extremities BREEZY score - Breezy Score Age > 65: (1) Yes Aspirin use within the Past 7 Days: (1) Yes 3 or more CAD Risk Factors: (1) Yes 2 or more Angina events in past 24 hrs: (1) Yes Known CAD with more than 50% Stenosis: (0) No Elevated Cardiac Markers: (0) No ST Deviation Greater than 0.5mm: (0) No BREEZY Score: 4 Results - Labs CBC & Chem 7: 02/02/20 05:44 02/02/20 05:44 Labs: Laboratory Last Values WBC 16.0 K/mm3 (4.5-11.0) H 02/02/20 05:44 RBC 2.85 M/mm3 (3.65-5.03) L 02/02/20 05:44 Hgb 8.3 gm/dl (10.1-14.3) L 02/02/20 05:44 Hct 26.3 % (30.3-42.9) L 02/02/20 05:44 MCV 92 fl (79-97) 02/02/20 05:44 MCH 29 pg (28-32) 02/02/20 05:44 MCHC 32 % (30-34) 02/02/20 05:44 RDW 18.6 % (13.2-15.2) H 02/02/20 05:44 Plt Count 416 K/mm3 (140-440) 02/02/20 05:44 Lymph % (Auto) [employer] 02/01/20 03:49 [place] % (Auto) [employer] 02/01/20 03:49 Eos % (Auto) [employer] 02/01/20 03:49 Baso % (Auto) [employer] 02/01/20 03:49 Lymph # [employer] 02/01/20 03:49 [place] # [employer] 02/01/20 03:49 Eos # [employer] 02/01/20 03:49 Baso # [employer] 02/01/20 03:49 Add Manual Diff Complete 02/02/20 05:44 Total Counted 100 02/02/20 05:44 Seg Neutrophils % [employer] 02/02/20 05:44 Seg Neuts % (Manual) 91.0 % (40.0-70.0) H 02/02/20 05:44 Band Neutrophils % 0 % 02/02/20 05:44 Lymphocytes % (Manual) 2.0 % (13.4-35.0) L 02/02/20 05:44 Reactive Lymphs % (Man) 0 % 02/02/20 05:44 Monocytes % (Manual) 5.0 % (0.0-7.3) 02/02/20 05:44 Eosinophils % (Manual) 2.0 % (0.0-4.3) 02/02/20 05:44 Basophils % (Manual) 0 % (0.0-1.8) 02/02/20 05:44 Metamyelocytes % 0 % 02/02/20 05:44 Myelocytes % 0 % 02/02/20 05:44 Promyelocytes % 0 % 02/02/20 05:44 Blast Cells % 0 % 02/02/20 05:44 Nucleated RBC % Not Reportable 02/02/20 05:44 Seg Neutrophils # [employer] 02/01/20 03:49 Seg Neutrophils # Man 14.6 K/mm3 (1.8-7.7) H 02/02/20 05:44 Band Neutrophils # 0.0 K/mm3 02/02/20 05:44 Lymphocytes # (Manual) 0.3 K/mm3 (1.2-5.4) L 02/02/20 05:44 Abs React Lymphs (Man) 0.0 K/mm3 02/02/20 05:44 Monocytes # (Manual) 0.8 K/mm3 (0.0-0.8) 02/02/20 05:44 Eosinophils # (Manual) 0.3 K/mm3 (0.0-0.4) 02/02/20 05:44 Basophils # (Manual) 0.0 K/mm3 (0.0-0.1) 02/02/20 05:44 Metamyelocytes # 0.0 K/mm3 02/02/20 05:44 Myelocytes # 0.0 K/mm3 02/02/20 05:44 Promyelocytes # 0.0 K/mm3 02/02/20 05:44 Blast Cells # 0.0 K/mm3 02/02/20 05:44 WBC Morphology Not Reportable 02/02/20 05:44 Hypersegmented Neuts Not Reportable 02/02/20 05:44 Hyposegmented Neuts Not Reportable 02/02/20 05:44 Hypogranular Neuts Not Reportable 02/02/20 05:44 Smudge Cells Not Reportable 02/02/20 05:44 Toxic Granulation Not Reportable 02/02/20 05:44 Toxic Vacuolation Not Reportable 02/02/20 05:44 Dohle Bodies Not Reportable 02/02/20 05:44 Pelger-Huet Anomaly Not Reportable 02/02/20 05:44 Armando Rods Not Reportable 02/02/20 05:44 Platelet Estimate Consistent w auto 02/02/20 05:44 Clumped Platelets Not Reportable 02/02/20 05:44 Plt Clumps, EDTA Not Reportable 02/02/20 05:44 Large Platelets Not Reportable 02/02/20 05:44 Giant Platelets Not Reportable 02/02/20 05:44 Platelet Satelliting Not Reportable 02/02/20 05:44 Plt Morphology Comment Not Reportable 02/02/20 05:44 RBC Morphology Not Reportable 02/02/20 05:44 Dimorphic RBCs Not Reportable 02/02/20 05:44 Polychromasia Not Reportable 02/02/20 05:44 Hypochromasia 1+ 02/02/20 05:44 Poikilocytosis Not Reportable 02/02/20 05:44 Anisocytosis Not Reportable 02/02/20 05:44 Microcytosis Not Reportable 02/02/20 05:44 Macrocytosis Not Reportable 02/02/20 05:44 Spherocytes Not Reportable 02/02/20 05:44 Pappenheimer Bodies Not Reportable 02/02/20 05:44 Sickle Cells Not Reportable 02/02/20 05:44 Target Cells Few 02/02/20 05:44 Tear Drop Cells Not Reportable 02/02/20 05:44 Ovalocytes Not Reportable 02/02/20 05:44 Helmet Cells Not Reportable 02/02/20 05:44 [place] Bodies Not Reportable 02/02/20 05:44 [place] Rings Not Reportable 02/02/20 05:44 [place] Cells Not Reportable 02/02/20 05:44 Bite Cells Not Reportable 02/02/20 05:44 Crenated Cell Not Reportable 02/02/20 05:44 Elliptocytes Not Reportable 02/02/20 05:44 Acanthocytes (Spur) Not Reportable 02/02/20 05:44 Rouleaux Not Reportable 02/02/20 05:44 Hemoglobin C Crystals Not Reportable 02/02/20 05:44 Schistocytes Not Reportable 02/02/20 05:44 Malaria parasites Not Reportable 02/02/20 05:44 Ney Bodies Not Reportable 02/02/20 05:44 Hem Pathologist Commnt No 02/02/20 05:44 PT 15.6 Sec. (12.2-14.9) H 01/09/20 12:55 INR 1.22 (0.87-1.13) H 01/09/20 12:55 APTT 31.5 Sec. (24.2-36.6) 01/09/20 12:55 D-Dimer 2379 ng/mlDDU (0-234) H 01/28/20 04:34 Heparin Anti-Xa Level 0.77 U.I./ml (0.3-0.7) H 02/02/20 05:44 ABG pH 7.317 pH Units (7.350-7.450) L 02/02/20 05:00 ABG pCO2 56.4 mm Hg 02/02/20 05:00 ABG pO2 85.0 mm Hg (80.0-90.0) 02/02/20 05:00 ABG HCO3 28.2 mmol/L (20.0-26.0) H 02/02/20 05:00 ABG O2 Saturation 96.5 % (95.0-99.0) 02/02/20 05:00 ABG O2 Content 13.4 (0.0-44) 02/02/20 05:00 ABG Base Excess 1.4 mmol/L (-2.0-3.0) 02/02/20 05:00 ABG Hemoglobin 10.1 gm/dl (12.0-16.0) L 02/02/20 05:00 ABG Carboxyhemoglobin 2.0 % (0.0-5.0) 02/02/20 05:00 ABG Methemoglobin 0.6 % (0.0-1.5) 02/02/20 05:00 Oxyhemoglobin 94.0 % (95.0-99.0) L 02/02/20 05:00 FiO2 50 % 02/02/20 05:00 Sodium 137 mmol/L (137-145) 02/02/20 05:44 Potassium 3.9 mmol/L (3.6-5.0) 02/02/20 05:44 Chloride 95.5 mmol/L (98-107) L 02/02/20 05:44 Carbon Dioxide 25 mmol/L (22-30) 02/02/20 05:44 Anion Gap 20 mmol/L 02/02/20 05:44 BUN 57 mg/dL (7-17) H 02/02/20 05:44 Creatinine 3.0 mg/dL (0.7-1.2) H 02/02/20 05:44 Estimated GFR 19 ml/min 02/02/20 05:44 BUN/Creatinine Ratio 19 % 02/02/20 05:44 Glucose 144 mg/dL (65-100) H 02/02/20 05:44 POC Glucose 233 (70-105) H 02/01/20 18:24 Hemoglobin A1c 5.0 % (4-6) 01/10/20 06:54 Calcium 8.1 mg/dL (8.4-10.2) L 02/02/20 05:44 Phosphorus 3.30 mg/dL (2.5-4.5) 01/12/20 16:01 Magnesium 2.00 mg/dL (1.7-2.3) 01/13/20 06:11 Ferritin > 2000.0 ng/mL (13.0-400.0) H 01/28/20 04:34 Total Bilirubin 0.50 mg/dL (0.1-1.2) 02/02/20 05:44 Direct Bilirubin 0.3 mg/dL (0-0.2) H 02/02/20 05:44 Indirect Bilirubin 0.2 mg/dL 02/02/20 05:44 AST 179 units/L (5-40) H 02/02/20 05:44 ALT 106 units/L (7-56) H 02/02/20 05:44 Alkaline Phosphatase 557 units/L (35-129) H 02/02/20 05:44 Lactate Dehydrogenase 434 units/L (91-180) H 01/28/20 04:34 Troponin T 0.315 ng/mL (0.00-0.029) H* 01/10/20 06:54 C-Reactive Protein 9.70 mg/dL (0.00-1.30) H 01/28/20 04:34 NT-Pro-B Natriuret Pep 69373 pg/mL (0-900) H 01/09/20 12:55 Total Protein 6.1 g/dL (6.3-8.2) L 02/02/20 05:44 Albumin 2.3 g/dL (3.9-5) L 02/02/20 05:44 Albumin/Globulin Ratio 0.6 % 02/02/20 05:44 Triglycerides 56 mg/dL (2-149) 01/30/20 04:04 Cholesterol 123 mg/dL (50-199) 01/09/20 12:55 LDL Cholesterol Direct 66 mg/dL (50-130) 01/09/20 12:55 HDL Cholesterol 47 mg/dL (40-59) 01/09/20 12:55 Cholesterol/HDL Ratio 2.61 % 01/09/20 12:55 Hepatitis A IgM Ab Non-reactive (NonReactive) 01/21/20 23:40 Hep Bs Antigen Non-reactive (Negative) 01/21/20 23:40 Hep B Core IgM Ab Non-reactive (NonReactive) 01/21/20 23:40 Hepatitis C Antibody Non-reactive (NonReactive) 01/21/20 23:40 Miscellaneous Test See scanned result 01/11/20 Unknown Miscellaneous Test See scanned result 01/11/20 Unknown Pleitez/IV: Voiding Method Toilet IV Catheter Type [Left Chest] Infusaport IV Catheter Type [Right Peripheral IV External Jugular] IV Catheter Type [Left INT / Saline Lock External Jugular] IV Catheter Type [Left Upper IVAD / Port arm] Active Medications - Current Medications Current Medications: Generic Name Dose Route Start Last Admin Trade Name Freq PRN Reason Stop Dose Admin Acetaminophen 650 mg 01/09/20 16:33 01/27/20 12:26 Tylenol PO 650 mg Q4H PRN Administration Pain MILD(1-3)/Fever >100.5/MEANS Lipase/Protease/Amylase 1 each 01/23/20 14:28 Pancreaze 10,500 Unit FEEDTUBE PRN PRN For Clogged Feeding Tube Atorvastatin Calcium 40 mg 01/09/20 22:00 02/01/20 22:06 Lipitor PO 40 mg QHS PHILLY Administration Dextrose 50 ml 01/23/20 07:26 01/31/20 18:10 D50w (25gm) Syringe IV 50 ml Q30MIN PRN Administration BLOOD GLUCOSE < 70 Dextrose 25 ml 01/24/20 08:58 01/24/20 13:41 D50w (25gm) Syringe IV 25 ml Q4H PRN Administration BG < 80 MG/DL Docusate Sodium 100 mg 01/25/20 22:00 02/01/20 22:07 Colace PO 100 mg BID PHILLY Administration Enoxaparin Sodium 80 mg 01/23/20 12:00 02/02/20 08:14 Enoxaparin SUB-Q 80 mg Q24HR PHILLY Administration Famotidine 20 mg 01/09/20 22:00 02/02/20 08:14 Pepcid PO 20 mg DAILY PHILLY Administration Norepinephrine 4 mg in 250 mls @ 7.5 mls/hr 01/21/20 18:00 02/02/20 06:12 Levophed Drip 4 Mg/Ns 250 Ml IV 4 mcg/min TITR PHILLY 15 mls/hr Titration Protocol 2 MCG/MIN Propofol 1,000 mg in 100 mls @ 2.265 mls/hr 01/22/20 09:00 01/30/20 14:25 Diprivan 10 Mg/Ml IV 0 mcg/kg/min TITR PHILLY 0 mls/hr Titration Protocol 5 MCG/KG/MIN Sodium Chloride 100 mls @ 999 mls/hr 01/26/20 07:54 01/30/20 10:22 Nacl 0.9% IV 999 mls/hr SIVLERIO PRN Administration Hypotension Sodium Chloride 100 mls @ 999 mls/hr 02/01/20 09:47 Nacl 0.9% IV SILVERIO PRN Hypotension Lorazepam 2 mg 01/23/20 15:36 Ativan IV Q10MIN PRN Agitation Morphine Sulfate 1 mg 01/30/20 11:21 02/01/20 17:47 Morphine IV 1 mg Q4H PRN Administration Pain, Moderate (4-6) Ondansetron HCl 4 mg 01/09/20 16:33 01/20/20 10:19 Zofran IV 4 mg Q8H PRN Administration Nausea And Vomiting Simple Syrup 15 ml 01/23/20 14:28 Simple Syrup FEEDTUBE PRN PRN Hypoglycemia Simple Syrup 30 ml 01/23/20 14:28 Simple Syrup FEEDTUBE PRN PRN Hypoglycemia Sodium Bicarbonate 325 mg 01/23/20 14:28 Sodium Bicarbonate FEEDTUBE PRN PRN For Clogged Feeding Tube Sodium Chloride 10 ml 01/09/20 22:00 02/01/20 22:07 Sodium Chloride Flush Syringe 10 Ml IV 10 ml BID PHILLY Administration Sodium Chloride 10 ml 01/09/20 16:33 Sodium Chloride Flush Syringe 10 Ml IV PRN PRN LINE FLUSH Valsartan 80 mg 01/10/20 10:00 02/01/20 10:17 Diovan PO Not Given DAILY PHILLY Nutrition/Malnutrition Assess - Dietary Evaluation Nutrition/Malnutrition Findings: Nutrition Notes Start: 01/17/20 13:49 Freq: Status: Active Protocol: Document 02/01/20 11:59 LM (Rec: 02/01/20 12:00 LM [id number]) Nutrition Notes Initial or Follow up Brief Note Subjective/Other Information Pt receiving HD. Nutrition Intervention Follow-Up By: 02/04/20 Additional Comments F/U for TF tolerance
[2020-02-02] MEDS: DEXTROSE 50% IN WATER (25GM) 50 ML SYRINGE IV PRN (11:33)
[2020-02-02] MEDS ORDERED: D5W/0.45% NACL 1,000 ML IV SCH (12:00)
--- NOTE | 2020-02-02 15:43 | Progress Note ---
Assessment and Plan - Patient Problems (1) Volume overload Current Visit: Yes Status: Acute Qualifiers: Plan to address problem: end-stage renal disease with fluid overload. Improved with fluid removal on dialysis. hemodialysis again today (2) Pneumonia due to COVID-19 virus Current Visit: Yes Status: Acute Plan to address problem: continue treatment per infectious disease. (3) Anemia in CKD (chronic kidney disease) Current Visit: Yes Status: Acute Qualifiers: Chronic kidney disease stage: on chronic dialysis Qualified Code(s): N18.6 - End stage renal disease; D63.1 - Anemia in chronic kidney disease; Z99.2 - Dependence on renal dialysis Plan to address problem: give erythropoietin on dialysis (4) T2DM (type 2 diabetes mellitus) Current Visit: Yes Status: Acute Qualifiers: Diabetes mellitus group home insulin use: unspecified group home insulin use status Plan to address problem: blood sugar management by primary attending. (5) Acute respiratory failure with hypoxia Current Visit: No Status: Acute Plan to address problem: ventilator management by pulmonary/development professional (6) Hyponatremia Current Visit: No Status: Acute Plan to address problem: hypervolemic hyponatremia. Follow-up sodium with fluid removal on dialysis (7) Hypertensive chronic kidney disease with stage 5 chronic kidney disease or end stage renal disease Current Visit: No Status: Chronic Plan to address problem: patient is on vasopressor. Follow blood pressure current medications (8) Sepsis with hypotension Current Visit: Yes Status: Acute Plan to address problem: back on Levophed. Wean to mean arterial pressure more than 65. Subjective Date of service: 02/02/20 Principal diagnosis: Pneumonia Interval history: Patient is intubated on the ventilator in intensive care unit. On vasopressor - Levophed 2 mcg/Kg/min. Patient was seen and examined today remains sedated on the ventilator Objective - Exam Narrative Exam: elderly -[place] female lying in bed intubated on the ventilator HEENT: Normocephalic atraumatic, pupils equal round reactive to light ETT intact Neck: Supple, no venous distention, no goiter CVS: S1S2 RRR No murmur, rub or gallop Lungs: Coarse Bs, no use of accessory muscles of respiration Abdomen: Full, soft, nontender, no organomegaly no bruit, bowel sounds are present Extremities: No edema, no cyanosis or clubbing Urinary: Deferred Musculo-skeletal: No joint deformities or swelling Neuro: Awake, alert, no focal deficits - Vital Signs Vital signs: Vital Signs - 12hr 02/02/20 02/02/20 02/02/20 03:45 03:51 04:00 Temperature 99.1 F Pulse Rate 118 H 114 H Pulse Rate [ From Monitor] Respiratory 18 Rate Blood Pressure 148/69 O2 Sat by Pulse 99 Oximetry O2 Sat by Pulse Oximetry [ Anterior Bilateral Throughout] 02/02/20 02/02/20 02/02/20 04:01 04:15 04:31 Temperature Pulse Rate 116 H 116 H 114 H Pulse Rate [ From Monitor] Respiratory 22 17 18 Rate Blood Pressure 130/61 130/61 135/63 O2 Sat by Pulse 96 98 96 Oximetry O2 Sat by Pulse Oximetry [ Anterior Bilateral Throughout] 02/02/20 02/02/20 02/02/20 04:45 04:52 05:01 Temperature Pulse Rate 114 H 114 H 114 H Pulse Rate [ 110 H From Monitor] Respiratory 22 22 Rate Blood Pressure 135/63 134/61 140/68 O2 Sat by Pulse 98 98 95 Oximetry O2 Sat by Pulse Oximetry [ Anterior Bilateral Throughout] 02/02/20 02/02/20 02/02/20 05:15 05:31 05:45 Temperature Pulse Rate 114 H 113 H 113 H Pulse Rate [ From Monitor] Respiratory 20 21 21 Rate Blood Pressure 134/61 146/65 140/68 O2 Sat by Pulse 99 96 97 Oximetry O2 Sat by Pulse Oximetry [ Anterior Bilateral Throughout] 02/02/20 02/02/20 02/02/20 06:01 06:15 06:30 Temperature Pulse Rate 113 H 110 H 109 H Pulse Rate [ From Monitor] Respiratory 19 24 22 Rate Blood Pressure 149/69 149/69 145/61 O2 Sat by Pulse 96 99 98 Oximetry O2 Sat by Pulse Oximetry [ Anterior Bilateral Throughout] 02/02/20 02/02/20 02/02/20 06:45 07:00 07:01 Temperature 99.1 F Pulse Rate 109 H 108 H 109 H Pulse Rate [ From Monitor] Respiratory 21 23 Rate Blood Pressure 145/61 122/62 122/62 O2 Sat by Pulse 98 96 Oximetry O2 Sat by Pulse 99 Oximetry [ Anterior Bilateral Throughout] 02/02/20 02/02/20 02/02/20 07:15 07:30 07:31 Temperature Pulse Rate 106 H 109 H 105 H Pulse Rate [ From Monitor] Respiratory 22 19 Rate Blood Pressure 151/61 134/65 142/67 O2 Sat by Pulse 99 98 Oximetry O2 Sat by Pulse Oximetry [ Anterior Bilateral Throughout] 02/02/20 02/02/20 02/02/20 07:45 08:00 08:01 Temperature 98.8 F Pulse Rate 104 H 106 H 106 H Pulse Rate [ 109 H From Monitor] Respiratory 20 18 10 L Rate Blood Pressure 143/67 143/67 133/65 O2 Sat by Pulse 100 100 99 Oximetry O2 Sat by Pulse Oximetry [ Anterior Bilateral Throughout] 02/02/20 02/02/20 02/02/20 08:15 08:30 08:45 Temperature Pulse Rate 107 H 108 H 108 H Pulse Rate [ From Monitor] Respiratory 13 12 15 Rate Blood Pressure 132/66 126/66 123/67 O2 Sat by Pulse 100 99 100 Oximetry O2 Sat by Pulse Oximetry [ Anterior Bilateral Throughout] 02/02/20 02/02/20 02/02/20 09:00 09:15 09:30 Temperature Pulse Rate 110 H 111 H 116 H Pulse Rate [ From Monitor] Respiratory 12 14 14 Rate Blood Pressure 113/60 89/49 116/68 O2 Sat by Pulse 96 96 Oximetry O2 Sat by Pulse Oximetry [ Anterior Bilateral Throughout] 02/02/20 02/02/20 02/02/20 09:45 09:55 10:00 Temperature Pulse Rate 113 H 110 H 113 H Pulse Rate [ From Monitor] Respiratory 18 16 Rate Blood Pressure 123/64 103/55 122/65 O2 Sat by Pulse 95 99 98 Oximetry O2 Sat by Pulse Oximetry [ Anterior Bilateral Throughout] 02/02/20 02/02/20 02/02/20 10:15 10:41 12:00 Temperature 98.9 F Pulse Rate 109 H 110 H 115 H Pulse Rate [ 107 H From Monitor] Respiratory 19 20 Rate Blood Pressure 100/52 103/55 O2 Sat by Pulse 99 99 Oximetry O2 Sat by Pulse 100 Oximetry [ Anterior Bilateral Throughout] 02/02/20 12:03 Temperature Pulse Rate 110 H Pulse Rate [ From Monitor] Respiratory Rate Blood Pressure 105/59 O2 Sat by Pulse 100 Oximetry O2 Sat by Pulse Oximetry [ Anterior Bilateral Throughout] - Lab 02/02/20 05:44 02/02/20 12:33 Most recent lab results ABG pH 7.317 pH Units (7.350-7.450) L 02/02/20 05:00 ABG pCO2 56.4 mm Hg 02/02/20 05:00 ABG pO2 85.0 mm Hg (80.0-90.0) 02/02/20 05:00 ABG HCO3 28.2 mmol/L (20.0-26.0) H 02/02/20 05:00 ABG O2 Saturation 96.5 % (95.0-99.0) 02/02/20 05:00 Calcium 8.1 mg/dL (8.4-10.2) L 02/02/20 05:44 Phosphorus 3.30 mg/dL (2.5-4.5) 01/12/20 16:01 Magnesium 2.00 mg/dL (1.7-2.3) 01/13/20 06:11 Medications & Allergies - Medications Allergies/Adverse Reactions: Allergies cheese Allergy (Mild, Verified 12/20/19 10:19) Itching iodine Allergy (Mild, Verified 12/20/19 10:16) Anaphylaxis clonidine Allergy (Verified 12/19/19 04:13) Anaphylaxis shellfish derived Adverse Reaction (Verified 12/19/19 04:13) Angioedema Home Medications: Home Medications Medication Instructions Recorded Confirmed Last Taken Type Atorvastatin [Lipitor] 40 mg PO DAILY 11/06/19 01/13/20 01/02/20 10:00 History Acetaminophen [Acetaminophen 8 650 mg PO Q8H PRN #30 tablet.er 11/21/19 01/13/20 01/03/20 22:00 Rx Hour] Cyclobenzaprine HCl [Flexeril 5 MG 5 mg PO QHS PRN #20 tab 11/21/19 01/13/20 01/01/20 22:00 Rx TAB] HYDROcodone/APAP 5-325 [[place] 1 each PO Q6HR PRN #18 tablet 12/13/19 01/13/20 01/01/20 22:00 Rx 5-325 mg TAB] amLODIPine 10 mg PO DAILY 90 Days #90 tab 12/18/19 01/13/20 01/01/20 10:00 Rx Ibuprofen 800 mg PO TID 12/19/19 01/13/20 01/02/20 22:00 History Magnesium Oxide [Mag-Ox] 400 mg PO QDAY 12/19/19 01/13/2001/02/20 10:00 History diphenhydrAMINE [Benadryl CAP] 25 mg PO Q8HR PRN 12/19/19 01/13/20 01/03/20 21:00 History labetaloL [Labetalol 100mg TAB] 100 mg PO Q8H #90 tablet 12/21/19 01/13/20 01/02/20 10:00 Rx traMADoL [Ultram 50 MG tab] 50 mg PO Q6HR PRN #20 tablet 12/29/19 01/13/20 12/31/19 10:00 Rx DULoxetine [Cymbalta] 30 mg PO QDAY #30 capsule 01/04/20 01/13/20 Unknown Rx Valsartan [Diovan] 80 mg PO DAILY #30 tablet 01/04/20 01/13/20 Unknown Rx Active Medications: Generic Name Dose Route Start Last Admin Trade Name Freq PRN Reason Stop Dose Admin Acetaminophen 650 mg 01/09/20 16:33 01/27/20 12:26 Tylenol PO 650 mg Q4H PRN Administration Pain MILD(1-3)/Fever >100.5/MEANS Lipase/Protease/Amylase 1 each 01/23/20 14:[address] 10,500 Unit FEEDTUBE PRN PRN For Clogged Feeding Tube Atorvastatin Calcium 40 mg 01/09/20 22:00 02/01/20 22:06 Lipitor PO 40 mg QHS PHILLY Administration Dextrose 50 ml 01/23/20 07:26 02/02/20 11:33 D50w (25gm) Syringe IV 50 ml Q30MIN PRN Administration BLOOD GLUCOSE < 70 Dextrose 25 ml 01/24/20 08:58 01/24/20 13:41 D50w (25gm) Syringe IV 25 ml Q4H PRN Administration BG < 80 MG/DL Docusate Sodium 100 mg 01/25/20 22:00 02/02/20 10:41 Colace PO Not Given BID PHILLY Enoxaparin Sodium 80 mg 01/23/20 12:00 02/02/20 10:41 Enoxaparin SUB-Q Not Given Q24HR PHILLY Famotidine 20 mg 01/09/20 22:00 02/02/20 10:42 Pepcid PO Not Given DAILY PHILLY Norepinephrine 4 mg in 250 mls @ 7.5 mls/hr 01/21/20 18:00 02/02/20 06:12 Levophed Drip 4 Mg/Ns 250 Ml IV 4 mcg/min TITR PHILLY 15 mls/hr Titration Protocol 2 MCG/MIN Propofol 1,000 mg in 100 mls @ 2.265 mls/hr 01/22/20 09:00 01/30/20 14:25 Diprivan 10 Mg/Ml IV 0 mcg/kg/min TITR PHILLY 0 mls/hr Titration Protocol 5 MCG/KG/MIN Sodium Chloride 100 mls @ 999 mls/hr 02/01/20 09:47 Nacl 0.9% IV SILVERIO PRN Hypotension Dextrose/Sodium Chloride 1,000 mls @ 75 mls/hr 02/02/20 12:00 02/02/20 11:33 D5/0.45ns IV 02/03/20 01:19 75 mls/hr DIRECT PHILLY Administration Lorazepam 2 mg 01/23/20 15:36 Ativan IV Q10MIN PRN Agitation Morphine Sulfate 1 mg 01/30/20 11:21 02/01/20 17:47 Morphine IV 1 mg Q4H PRN Administration Pain, Moderate (4-6) Ondansetron HCl 4 mg 01/09/20 16:33 01/20/20 10:19 Zofran IV 4 mg Q8H PRN Administration Nausea And Vomiting Simple Syrup 15 ml 01/23/20 14:28 Simple Syrup FEEDTUBE PRN PRN Hypoglycemia Simple Syrup 30 ml 01/23/20 14:28 Simple Syrup FEEDTUBE PRN PRN Hypoglycemia Sodium Bicarbonate 325 mg 01/23/20 14:28 Sodium Bicarbonate FEEDTUBE PRN PRN For Clogged Feeding Tube Sodium Chloride 10 ml 01/09/20 22:00 02/02/20 10:20 Sodium Chloride Flush Syringe 10 Ml IV Not Given BID PHILLY Sodium Chloride 10 ml 01/09/20 16:33 Sodium Chloride Flush Syringe 10 Ml IV PRN PRN LINE FLUSH Valsartan 80 mg 01/10/20 10:00 02/02/20 10:41 Diovan PO Not Given DAILY PHILLY
[2020-02-02] MEDS ORDERED: SODIUM CHLORIDE*PRIMING MACHINE ONLY FOR DIALYSIS MC ONE (15:56)
[2020-02-03] MEDS: NORepinephrine/NS 4 MG-250 ML 4 MG/250 ML BAG IV SCH (01:05)
[2020-02-03 04:32] LABS: Hematocrit 27.4 % (30.3-42.9); Hemoglobin 8.3 gm/dl (10.1-14.3); Mean Corpuscular HGB Conc 30 % (30-34); Mean Corpuscular Volume 98 fl (79-97); Red Cell Distribution Width 19.2 % (13.2-15.2)
[2020-02-03 04:51] LABS: Calcium 8.5 mg/dL (8.4-10.2)
[2020-02-03 05:26] LABS: ABG Base Excess 1.8 mmol/L (-2.0-3.0); ABG HCO3 28.5 mmol/L (20.0-26.0); ABG Methemoglobin 0.6 % (0.0-1.5); ABG Oxygen Saturation 97.1 % (95.0-99.0); ABG PCO2 57.4 mm Hg; ABG PH 7.315 pH Units (7.350-7.450); ABG PO2 97.3 mm Hg (80.0-90.0)
[2020-02-03 06:13] LABS: Band Neutrophils # (Manual) 0.2 K/mm3; Basophils % (Manual) 0 % (0.0-1.8); Total Cells Counted 100
[2020-02-03 06:15] LABS: Platelet Count 388 K/mm3 (140-440); Platelet Estimate Consistent w Auto; RBC Morphology Normal
--- NOTE | 2020-02-03 09:32 | Progress Note ---
Assessment and Plan Assessment and plan: Suspected COVID- 19 Patient with very elevated inflammatory markers of ferritin, CRP, LDH and d- dimer. Bilateral pneumonia. Continue antibiotics per ID ARDS. Etiology secondary to above. Acute hypoxemic respiratory failure. Continue oxygen to maintain sats greater than 92% Appears stable on HFNC; wean FiO2 then flow Chest pain Stress test neg for ischemia GERD and costochondritis in differential diagnosis Volume overload s/p hemodialysis Nephrology consulted,following Acute on Chronic diastolic CHF exacerbation Secondary to volume overload End stage renal disease on dialysis Nephrology following T2DM (type 2 diabetes mellitus) Continue continue coverage Check hemoglobin A1c Hypertension Continue antihypertensives Hyponatremia Secondary to increased volume--dilutional DVT prophylaxis On heparin and GI prophylaxis 01/11 Covid 19 survey testing sent, nasal swab done 01/10 01/12 Patient has acute resp failure. may need Oxygen on dc. awaiting Covid result 01/13 Still has shortness of breath, awaiting Covid test. 01/14 Pt still dyspneic, await covid testing, Pulse ox 83% 01/16/2020. Patient remains dyspneic. Follow-up COVID testing. 01/17/2020. Patient still requiring large amounts of oxygen. Patient currently with 15 L satting at 95%. Patient with increased inflammatory markers. Follow- up chest x-ray today. 01/18/20--Patient still requiring large amounts of oxygen. Patient currently with 15 L %. Patient with increased inflammatory markers. 01/19/2020 very elevated inflammatory markers- ferritin> 2000, CRP >24, LDH> 600, d-dimer >1000 putting her at high risk for ARDS. Continue hydroxychloroquine 400 mg PO BID for 1 day then 200 mg PO BID for 4 days (total 5 days) with zinc 220 mg PO qday. Continue ceftriaxone. ContinueCOVID [facility]precautions pe r [facility]. Continue serial Ferritin, LDH, D-Dimer, CRP every 48h 01/20/2020. Inflammatory markers remain elevated with ferritin 1826, LDH 496, CRP 19.3, and d-dimer 2072. Patient requiring high flow nasal cannula 40L, FiO2 80%. Pulmonary following. Continue antibiotics and Plaquenil. Continue COVID isolationprecautions per [facility] protocol. Patient has a high risk mortality and remains guarded. 01/21/2020. Continue antibiotics and Plaquenil. Continue COVID isolationprecautions per [facility] protocol. Maintain sats of 88% and greater. Still on HFNC, O2 weaned to 95% overnight. Sats documented at 98%. Pulmonary following and reports If patient progresses could give bipap a one hour trial to see if there is improvement, repeat ABG, if not would suggest elective intubation 01/22/2020 Patient still critically ill. Yesterday 01/20 had cardiopulmonary arrest so now intubated in ICU. Prognosis guarded. 01/23/2020 still critically ill. No more fever. Continue vent management. 01/24/20 Still critically ill, remain on vent. Continue current management. Will call . 01/25/20 Patient still critically ill. I called Davis Hernandez and gave update. He wants DNR status and says he will request withdrawal of care if patient does not get better after weekend. I discussed with [employer]. 01/26/20 patient still intubated, on vent. She means a DNR order. Discussed with Nurse 01/26 patient still critically ill, vent dependent. 01/27 patient still intubated, on vent. On levophed to keep MAP>65mmhg 01/29/2020 patient still intubated on mechanical ventilation. AC mode ventila tion with rate 20, tidal volume 400, FiO2 45% and PEEP 12. patient with no fever. Patient currently with sedation of propofol. Patient received hemodialysis yesterday with approximately 3 L removed. 01/30/2020. Patient still on mechanical ventilation. AC mode ventilation with rate 20, tidal volume 400, FiO2 45% and PEEP 8. Patient with elevated alkaline phosphatase. Check abdominal ultrasound. 01/31/2020. Patient still on mechanical ventilation. PSV mode ventilation with FiO2 50% and PEEP 8 and PS=12. Follow-up abdominal ultrasound for elevated alkaline phosphatase 02/01/2020. Patient currently with PSV FiO2 50%, pressure support 12, PEEP 8. Continue PSV trials per pulmonary. Continue Levophed to maintain MAP greater than 65. Continue propofol for sedation. 02/02/2020. Patient currently on AC mode ventilation rate 20, tidal volume 450, FiO2 50% and PEEP of 6. ABG with pH of 7.31, PCO2 56.4, and PO2 85. Patient confirmed COVID-19 positive on 01/17/2020. Patient with MOSF and guarded prognosis. Follow-up abdominal ultrasound (ordered 3 days ago) for elevated alkaline phosphatase and fevers. 02/03/2020. Patient continues on mechanical ventilation AC mode with rate 20, tidal volume 450 and PEEP of 8. Patient still with temperature 100.5. Patient off sedation but requiring Levophed at 2 mics. Patient with an episode of hypoglycemia yesterday requiring D5 half-normal. Continue to monitor for hypoglycemia. Patient with MOSF and guarded prognosis. Follow-up abdominal ultrasound (ordered 4 days ago) for elevated alkaline phosphatase and fevers. The high probability of a clinically significant, sudden or life threatening deterioration of the [immunologic and respiratory] system(s) required my full and direct attention, intervention and personal management. The aggregate critical care time was [31] minutes. This time is in addition to time spent performing reported procedures but includes the following: [x] Data Review and interpretation [x] Patient assessment and monitoring of vital signs [x] Documentation [x] Medication orders and management History Interval history: Patient on mechanical ventilation. Hospitalist Physical - Constitutional Vitals: Temp Pulse Resp BP Pulse Ox 98.9 F 107 H 23 119/54 94 02/03/20 04:00 02/03/20 09:00 02/03/20 09:00 02/03/20 09:00 02/03/20 09:00 General appearance: Present: no acute distress - EENT Eyes: Present: PERRL, EOM intact ENT: hearing intact, clear oral mucosa, dentition normal - Neck Neck: Present: supple, normal ROM - Respiratory Respiratory effort: normal Respiratory: bilateral: CTA - Cardiovascular Rhythm: regular Heart Sounds: Present: S1 & S2. Absent: gallop, rub - Extremities Extremities: no ischemia, No edema, Full ROM - Abdominal General gastrointestinal: soft, non-tender, non-distended, normal bowel sounds - Integumentary Integumentary: Present: clear, warm, dry - Neurologic Neurologic: CNII-XII intact, moves all extremities BREEZY score - Breezy Score Age > 65: (1) Yes Aspirin use within the Past 7 Days: (1) Yes 3 or more CAD Risk Factors: (1) Yes 2 or more Angina events in past 24 hrs: (1) Yes Known CAD with more than 50% Stenosis: (0) No Elevated Cardiac Markers: (0) No ST Deviation Greater than 0.5mm: (0) No BREEZY Score: 4 Results - Labs CBC & Chem 7: 02/03/20 03:59 02/03/20 03:59 Labs: Laboratory Last Values WBC 22.9 K/mm3 (4.5-11.0) H 02/03/20 03:59 RBC 2.80 M/mm3 (3.65-5.03) L 02/03/20 03:59 Hgb 8.3 gm/dl (10.1-14.3) L 02/03/20 03:59 Hct 27.4 % (30.3-42.9) L 02/03/20 03:59 MCV 98 fl (79-97) H 02/03/20 03:59 MCH 30 pg (28-32) 02/03/20 03:59 MCHC 30 % (30-34) 02/03/20 03:59 RDW 19.2 % (13.2-15.2) H 02/03/20 03:59 Plt Count 388 K/mm3 (140-440) 02/03/20 03:59 Lymph % (Auto) [place] 02/03/20 03:59 [place] % (Auto) [place] 02/03/20 03:59 Eos % (Auto) [place] 02/03/20 03:59 Baso % (Auto) [place] 02/03/20 03:59 Lymph # [place] 02/03/20 03:59 [place] # [place] 02/03/20 03:59 Eos # [place] 02/03/20 03:59 Baso # [place] 02/03/20 03:59 Add Manual Diff Complete 02/03/20 03:59 Total Counted 100 02/03/20 03:59 Seg Neutrophils % [place] 02/03/20 03:59 Seg Neuts % (Manual) 92.0 % (40.0-70.0) H 02/03/20 03:59 Band Neutrophils % 1.0 % 02/03/20 03:59 Lymphocytes % (Manual) 4.0 % (13.4-35.0) L 02/03/20 03:59 Reactive Lymphs % (Man) 0 % 02/03/20 03:59 Monocytes % (Manual) 2.0 % (0.0-7.3) 02/03/20 03:59 Eosinophils % (Manual) 1.0 % (0.0-4.3) 02/03/20 03:59 Basophils % (Manual) 0 % (0.0-1.8) 02/03/20 03:59 Metamyelocytes % 0 % 02/03/20 03:59 Myelocytes % 0 % 02/03/20 03:59 Promyelocytes % 0 % 02/03/20 03:59 Blast Cells % 0 % 02/03/20 03:59 Nucleated RBC % Not Reportable 02/03/20 03:59 Seg Neutrophils # [place] 02/03/20 03:59 Seg Neutrophils # Man 21.1 K/mm3 (1.8-7.7) H 02/03/20 03:59 Band Neutrophils # 0.2 K/mm3 02/03/20 03:59 Lymphocytes # (Manual) 0.9 K/mm3 (1.2-5.4) L 02/03/20 03:59 Abs React Lymphs (Man) 0.0 K/mm3 02/03/20 03:59 Monocytes # (Manual) 0.5 K/mm3 (0.0-0.8) 02/03/20 03:59 Eosinophils # (Manual) 0.2 K/mm3 (0.0-0.4) 02/03/20 03:59 Basophils # (Manual) 0.0 K/mm3 (0.0-0.1) 02/03/20 03:59 Metamyelocytes # 0.0 K/mm3 02/03/20 03:59 Myelocytes # 0.0 K/mm3 02/03/20 03:59 Promyelocytes # 0.0 K/mm3 02/03/20 03:59 Blast Cells # 0.0 K/mm3 02/03/20 03:59 WBC Morphology Not Reportable 02/03/20 03:59 Hypersegmented Neuts Not Reportable 02/03/20 03:59 Hyposegmented Neuts Not Reportable 02/03/20 03:59 Hypogranular Neuts Not Reportable 02/03/20 03:59 Smudge Cells Not Reportable 02/03/20 03:59 Toxic Granulation Not Reportable 02/03/20 03:59 Toxic Vacuolation Not Reportable 02/03/20 03:59 Dohle Bodies Not Reportable 02/03/20 03:59 Pelger-Huet Anomaly Not Reportable 02/03/20 03:59 Armando Rods Not Reportable 02/03/20 03:59 Platelet Estimate Consistent w auto 02/03/20 03:59 Clumped Platelets Not Reportable 02/03/20 03:59 Plt Clumps, EDTA Not Reportable 02/03/20 03:59 Large Platelets Not Reportable 02/03/20 03:59 Giant Platelets Not Reportable 02/03/20 03:59 Platelet Satelliting Not Reportable 02/03/20 03:59 Plt Morphology Comment Not Reportable 02/03/20 03:59 RBC Morphology Normal 02/03/20 03:59 Dimorphic RBCs Not Reportable 02/03/20 03:59 Polychromasia Not Reportable 02/03/20 03:59 Hypochromasia Not Reportable 02/03/20 03:59 Poikilocytosis Not Reportable 02/03/20 03:59 Anisocytosis Not Reportable 02/03/20 03:59 Microcytosis Not Reportable 02/03/20 03:59 Macrocytosis Not Reportable 02/03/20 03:59 Spherocytes Not Reportable 02/03/20 03:59 Pappenheimer Bodies Not Reportable 02/03/20 03:59 Sickle Cells Not Reportable 02/03/20 03:59 Target Cells Not Reportable 02/03/20 03:59 Tear Drop Cells Not Reportable 02/03/20 03:59 Ovalocytes Not Reportable 02/03/20 03:59 Helmet Cells Not Reportable 02/03/20 03:59 [place] Bodies Not Reportable 02/03/20 03:59 [place] Rings Not Reportable 02/03/20 03:59 Karen Cells Not Reportable 02/03/20 03:59 Bite Cells Not Reportable 02/03/20 03:59 Crenated Cell Not Reportable 02/03/20 03:59 Elliptocytes Not Reportable 02/03/20 03:59 Acanthocytes (Spur) Not Reportable 02/03/20 03:59 Rouleaux Not Reportable 02/03/20 03:59 Hemoglobin C Crystals Not Reportable 02/03/20 03:59 Schistocytes Not Reportable 02/03/20 03:59 Malaria parasites Not Reportable 02/03/20 03:59 Ney Bodies Not Reportable 02/03/20 03:59 Hem Pathologist Commnt No 02/03/20 03:59 PT 15.6 Sec. (12.2-14.9) H 01/09/20 12:55 INR 1.22 (0.87-1.13) H 01/09/20 12:55 APTT 31.5 Sec. (24.2-36.6) 01/09/20 12:55 D-Dimer 2379 ng/mlDDU (0-234) H 01/28/20 04:34 Heparin Anti-Xa Level 0.77 U.I./ml (0.3-0.7) H 02/02/20 05:44 ABG pH 7.315 pH Units (7.350-7.450) L 02/03/20 05:00 ABG pCO2 57.4 mm Hg 02/03/20 05:00 ABG pO2 97.3 mm Hg (80.0-90.0) H 02/03/20 05:00 ABG HCO3 28.5 mmol/L (20.0-26.0) H 02/03/20 05:00 ABG O2 Saturation 97.1 % (95.0-99.0) 02/03/20 05:00 ABG O2 Content 11.2 (0.0-44) 02/03/20 05:00 ABG Base Excess 1.8 mmol/L (-2.0-3.0) 02/03/20 05:00 ABG Hemoglobin 8.3 gm/dl (12.0-16.0) L 02/03/20 05:00 ABG Carboxyhemoglobin 1.8 % (0.0-5.0) 02/03/20 05:00 ABG Methemoglobin 0.6 % (0.0-1.5) 02/03/20 05:00 Oxyhemoglobin 94.8 % (95.0-99.0) L 02/03/20 05:00 FiO2 50 % 02/03/20 05:00 Sodium 134 mmol/L (137-145) L 02/03/20 03:59 Potassium 3.5 mmol/L (3.6-5.0) L 02/03/20 03:59 Chloride 99.4 mmol/L (98-107) 02/03/20 03:59 Carbon Dioxide 21 mmol/L (22-30) L 02/03/20 03:59 Anion Gap 17 mmol/L 02/03/20 03:59 BUN 40 mg/dL (7-17) H 02/03/20 03:59 Creatinine 2.6 mg/dL (0.7-1.2) H 02/03/20 03:59 Estimated GFR 22 ml/min 02/03/20 03:59 BUN/Creatinine Ratio 15 % 02/03/20 03:59 Glucose 180 mg/dL (65-100) H 02/03/20 03:59 POC Glucose 182 (70-105) H 02/03/20 04:48 Hemoglobin A1c 5.0 % (4-6) 01/10/20 06:54 Calcium 8.5 mg/dL (8.4-10.2) 02/03/20 03:59 Phosphorus 3.30 mg/dL (2.5-4.5) 01/12/20 16:01 Magnesium 2.00 mg/dL (1.7-2.3) 01/13/20 06:11 Ferritin > 2000.0 ng/mL (13.0-400.0) H 01/28/20 04:34 Total Bilirubin 0.50 mg/dL (0.1-1.2) 02/02/20 05:44 Direct Bilirubin 0.3 mg/dL (0-0.2) H 02/02/20 05:44 Indirect Bilirubin 0.2 mg/dL 02/02/20 05:44 AST 179 units/L (5-40) H 02/02/20 05:44 ALT 106 units/L (7-56) H 02/02/20 05:44 Alkaline Phosphatase 557 units/L (35-129) H 02/02/20 05:44 Lactate Dehydrogenase 434 units/L (91-180) H 01/28/20 04:34 Troponin T 0.315 ng/mL (0.00-0.029) H* 01/10/20 06:54 C-Reactive Protein 9.70 mg/dL (0.00-1.30) H 01/28/20 04:34 NT-Pro-B Natriuret Pep 67880 pg/mL (0-900) H 01/09/20 12:55 Total Protein 6.1 g/dL (6.3-8.2) L 02/02/20 05:44 Albumin 2.3 g/dL (3.9-5) L 02/02/20 05:44 Albumin/Globulin Ratio 0.6 % 02/02/20 05:44 Triglycerides 56 mg/dL (2-149) 01/30/20 04:04 Cholesterol 123 mg/dL (50-199) 01/09/20 12:55 LDL Cholesterol Direct 66 mg/dL (50-130) 01/09/20 12:55 HDL Cholesterol 47 mg/dL (40-59) 01/09/20 12:55 Cholesterol/HDL Ratio 2.61 % 01/09/20 12:55 Hepatitis A IgM Ab Non-reactive (NonReactive) 01/21/20 23:40 Hep Bs Antigen Non-reactive (Negative) 01/21/20 23:40 Hep B Core IgM Ab Non-reactive (NonReactive) 01/21/20 23:40 Hepatitis C Antibody Non-reactive (NonReactive) 01/21/20 23:40 Miscellaneous Test See scanned result 01/11/20 Unknown Miscellaneous Test See scanned result 01/11/20 Unknown Pleitez/IV: Voiding Method Toilet IV Catheter Type [Left Chest] Infusaport IV Catheter Type [Right Peripheral IV External Jugular] IV Catheter Type [Left INT / Saline Lock External Jugular] IV Catheter Type [Left Upper IVAD / Port arm] Active Medications - Current Medications Current Medications: Generic Name Dose Route Start Last Admin Trade Name Freq PRN Reason Stop Dose Admin Acetaminophen 650 mg 01/09/20 16:33 01/27/20 12:26 Tylenol PO 650 mg Q4H PRN Administration Pain MILD(1-3)/Fever >100.5/MEANS Lipase/Protease/Amylase 1 each 01/23/20 14:28 Pancreaze 10,500 Unit FEEDTUBE PRN PRN For Clogged Feeding Tube Atorvastatin Calcium 40 mg 01/09/20 22:00 02/02/20 21:41 Lipitor PO 40 mg QHS PHILLY Administration Dextrose 50 ml 01/23/20 07:26 02/02/20 11:33 D50w (25gm) Syringe IV 50 ml Q30MIN PRN Administration BLOOD GLUCOSE < 70 Dextrose 25 ml 01/24/20 08:58 01/24/20 13:41 D50w (25gm) Syringe IV 25 ml Q4H PRN Administration BG < 80 MG/DL Docusate Sodium 100 mg 01/25/20 22:00 02/02/20 21:41 Colace PO Not Given BID [facility] Enoxaparin Sodium 80 mg 01/23/20 12:00 02/02/20 10:41 Enoxaparin SUB-Q Not Given Q24HR [facility] Famotidine 20 mg 01/09/20 22:00 02/02/20 10:42 Pepcid PO Not Given DAILY [facility] Norepinephrine 4 mg in 250 mls @ 7.5 mls/hr 01/21/20 18:00 02/03/20 01:05 Levophed Drip 4 Mg/Ns 250 Ml IV 2 mcg/min TITR PHILLY 7.5 mls/hr Administration Protocol 2 MCG/MIN Propofol 1,000 mg in 100 mls @ 2.265 mls/hr 01/22/20 09:00 01/30/20 14:25 Diprivan 10 Mg/Ml IV 0 mcg/kg/min TITR PHILLY 0 mls/hr Titration Protocol 5 MCG/KG/MIN Sodium Chloride 100 mls @ 999 mls/hr 02/01/20 09:47 Nacl 0.9% IV SILVERIO PRN Hypotension Lorazepam 2 mg 01/23/20 15:36 Ativan IV Q10MIN PRN Agitation Morphine Sulfate 1 mg 01/30/20 11:21 02/01/20 17:47 Morphine IV 1 mg Q4H PRN Administration Pain, Moderate (4-6) Ondansetron HCl 4 mg 01/09/20 16:33 01/20/20 10:19 Zofran IV 4 mg Q8H PRN Administration Nausea And Vomiting Simple Syrup 15 ml 01/23/20 14:28 Simple Syrup FEEDTUBE PRN PRN Hypoglycemia Simple Syrup 30 ml 01/23/20 14:28 Simple Syrup FEEDTUBE PRN PRN Hypoglycemia Sodium Bicarbonate 325 mg 01/23/20 14:28 Sodium Bicarbonate FEEDTUBE PRN PRN For Clogged Feeding Tube Sodium Chloride 10 ml 01/09/20 22:00 02/02/20 21:42 Sodium Chloride Flush Syringe 10 Ml IV 10 ml BID PHILLY Administration Sodium Chloride 10 ml 01/09/20 16:33 Sodium Chloride Flush Syringe 10 Ml IV PRN PRN LINE FLUSH Valsartan 80 mg 01/10/20 10:00 02/02/20 10:41 Diovan PO Not Given DAILY [facility] Nutrition/Malnutrition Assess - Dietary Evaluation Nutrition/Malnutrition Findings: Nutrition Notes Start: 01/17/20 13:49 Freq: Status: Active Protocol: Document 02/01/20 11:59 LM (Rec: 02/01/20 12:00 LM [id number]) Nutrition Notes Initial or Follow up Brief Note Subjective/Other Information Pt receiving HD. Nutrition Intervention Follow-Up By: 02/04/20 Additional Comments F/U for TF tolerance
[2020-02-03] MEDS: FAMOTIDINE 20 MG TAB PO SCH (10:22)
[2020-02-03] MEDS: VALSARTAN 40 MG TAB PO SCH (10:22)
[2020-02-03] MEDS: DOCUSATE SODIUM 100 MG/10 ML ORAL LIQD PO SCH ×2 (10:22→21:21)
[2020-02-03] MEDS: ENOXAPARIN 80 MG/0.8 ML INJ SUB-Q SCH (10:23)
--- NOTE | 2020-02-03 11:29 | Progress Note ---
Assessment and Plan - Patient Problems (1) COVID-19 virus infection Current Visit: Yes Status: Acute (2) Anemia in CKD (chronic kidney disease) Current Visit: Yes Status: Acute Qualifiers: Chronic kidney disease stage: on chronic dialysis Qualified Code(s): N18.6 - End stage renal disease; D63.1 - Anemia in chronic kidney disease; Z99.2 - Dependence on renal dialysis (3) Bilateral pulmonary infiltrates on chest x-ray Current Visit: Yes Status: Acute (4) Pneumonia due to COVID-19 virus Current Visit: Yes Status: Acute (5) Sepsis with hypotension Current Visit: Yes Status: Acute (6) T2DM (type 2 diabetes mellitus) Current Visit: Yes Status: Acute Qualifiers: Diabetes mellitus custodial insulin use: unspecified custodial insulin use status (7) Volume overload Current Visit: Yes Status: Acute Qualifiers: (8) Secondary hyperparathyroidism (of renal origin) Current Visit: Yes Status: Chronic (9) Acute respiratory failure with hypoxia Current Visit: No Status: Acute (10) End stage renal disease on dialysis Current Visit: No Status: Chronic Subjective Principal diagnosis: Pneumonia Interval history: on vent chart reviewed Objective Vital Signs - 12hr 02/02/20 02/02/20 02/02/20 23:30 23:43 23:45 Temperature Pulse Rate 99 H 99 H 100 H Pulse Rate [ From Monitor] Respiratory 20 24 22 Rate Blood Pressure 107/53 103/44 103/44 O2 Sat by Pulse 98 100 100 Oximetry 02/02/20 02/03/20 02/03/20 23:59 00:00 00:14 Temperature 99.5 F Pulse Rate 96 H 96 H 101 H Pulse Rate [ From Monitor] Respiratory 19 18 Rate Blood Pressure 99/47 96/46 96/46 O2 Sat by Pulse 100 100 100 Oximetry 02/03/20 02/03/20 02/03/20 00:15 00:30 00:45 Temperature Pulse Rate 102 H 98 H 98 H Pulse Rate [ From Monitor] Respiratory 19 21 21 Rate Blood Pressure 84/37 91/42 103/49 O2 Sat by Pulse 99 98 100 Oximetry 02/03/20 02/03/20 02/03/20 01:01 01:15 01:31 Temperature Pulse Rate 93 H 100 H 101 H Pulse Rate [ From Monitor] Respiratory 20 19 20 Rate Blood Pressure 89/36 111/56 120/54 O2 Sat by Pulse 98 98 98 Oximetry 02/03/20 02/03/20 02/03/20 01:45 02:00 02:15 Temperature Pulse Rate 102 H 106 H 105 H Pulse Rate [ From Monitor] Respiratory 19 19 22 Rate Blood Pressure 120/54 123/57 123/57 O2 Sat by Pulse 100 97 99 Oximetry 02/03/20 02/03/20 02/03/20 02:30 02:45 03:00 Temperature Pulse Rate 109 H 105 H 105 H Pulse Rate [ From Monitor] Respiratory 20 21 21 Rate Blood Pressure 116/55 116/55 109/53 O2 Sat by Pulse 96 99 96 Oximetry 02/03/20 02/03/20 02/03/20 03:15 03:30 03:45 Temperature Pulse Rate 104 H 105 H 109 H Pulse Rate [ From Monitor] Respiratory 20 20 22 Rate Blood Pressure 118/58 123/58 123/58 O2 Sat by Pulse 98 97 98 Oximetry 02/03/20 02/03/20 02/03/20 04:00 04:15 04:30 Temperature 98.9 F Pulse Rate 101 H 109 H 112 H Pulse Rate [ From Monitor] Respiratory 21 23 29 H Rate Blood Pressure 115/55 123/58 120/55 O2 Sat by Pulse 85 98 97 Oximetry 02/03/20 02/03/20 02/03/20 04:41 04:45 05:01 Temperature Pulse Rate 105 H 103 H 105 H Pulse Rate [ From Monitor] Respiratory 21 22 Rate Blood Pressure 111/51 118/53 124/49 O2 Sat by Pulse 98 98 97 Oximetry 02/03/20 02/03/20 02/03/20 05:15 05:31 05:45 Temperature Pulse Rate 105 H 103 H 104 H Pulse Rate [ From Monitor] Respiratory 18 21 21 Rate Blood Pressure 124/49 125/50 114/42 O2 Sat by Pulse 98 97 98 Oximetry 02/03/20 02/03/20 02/03/20 06:01 06:16 06:30 Temperature Pulse Rate 104 H 106 H 103 H Pulse Rate [ From Monitor] Respiratory 19 20 23 Rate Blood Pressure 110/52 109/49 118/46 O2 Sat by Pulse 96 96 96 Oximetry 02/03/20 02/03/20 02/03/20 06:46 07:00 07:16 Temperature Pulse Rate 105 H 104 H 105 H Pulse Rate [ From Monitor] Respiratory 22 22 17 Rate Blood Pressure 108/54 105/45 115/38 O2 Sat by Pulse 97 96 96 Oximetry 02/03/20 02/03/20 02/03/20 07:30 07:46 08:00 Temperature Pulse Rate 106 H 103 H 106 H Pulse Rate [ 106 H From Monitor] Respiratory 19 21 17 Rate Blood Pressure 111/53 114/50 118/41 O2 Sat by Pulse 96 97 96 Oximetry 02/03/20 02/03/20 02/03/20 08:16 08:26 08:30 Temperature Pulse Rate 104 H 105 H 105 H Pulse Rate [ From Monitor] Respiratory 19 23 Rate Blood Pressure 107/44 117/49 117/49 O2 Sat by Pulse 96 100 96 Oximetry 02/03/20 02/03/20 02/03/20 08:46 09:00 10:22 Temperature Pulse Rate 109 H 107 H 107 H Pulse Rate [ From Monitor] Respiratory 19 23 Rate Blood Pressure 126/53 119/54 123/45 O2 Sat by Pulse 96 94 Oximetry Constitutional: other (orally intubated, not sedated currently on vent. on AC 450 50%mv 10.2) Eyes: non-icteric ENT: oropharynx moist Neck: supple Effort: normal Ascultation: Bilateral: rales Cardiovascular: regular rate and rhythm (no mrg) Gastrointestinal: normoactive bowel sounds, soft, non-tender, non-distended Integumentary: normal Extremities: no cyanosis, no edema, pink and warm Neurologic: unable to assess CBC and BMP: 02/03/20 03:59 02/03/20 03:59 ABG, PT/INR, D-dimer: ABG ABG pH 7.315 pH Units (7.350-7.450) L 02/03/20 05:00 ABG pCO2 57.4 mm Hg 02/03/20 05:00 ABG pO2 97.3 mm Hg (80.0-90.0) H 02/03/20 05:00 ABG O2 Saturation 97.1 % (95.0-99.0) 02/03/20 05:00 PT/INR, D-dimer PT 15.6 Sec. (12.2-14.9) H 01/09/20 12:55 INR 1.22 (0.87-1.13) H 01/09/20 12:55 D-Dimer 2379 ng/mlDDU (0-234) H 01/28/20 04:34 Abnormal lab findings: Abnormal Labs 01/09/20 01/09/20 01/09/20 12:55 12:55 12:55 WBC 4.4 L RBC 3.44 L Hgb Hct MCV RDW 17.0 H Plt Count Lymph % (Auto) 6.8 L [place] % (Auto) 13.6 H Lymph # 0.3 L Seg Neutrophils % 79.0 H Seg Neuts % (Manual) Lymphocytes % (Manual) Seg Neutrophils # Man Lymphocytes # (Manual) Monocytes # (Manual) PT 15.6 H INR 1.22 H D-Dimer Heparin Anti-Xa Level ABG pH ABG pO2 ABG HCO3 ABG O2 Saturation ABG Base Excess ABG Hemoglobin Oxyhemoglobin Sodium 130 L Potassium Chloride 88.9 L Carbon Dioxide 20 L BUN 41 H Creatinine 7.6 H Glucose 115 H POC Glucose Calcium Magnesium Ferritin Direct Bilirubin AST ALT Alkaline Phosphatase 153 H Lactate Dehydrogenase Troponin T 0.382 H* C-Reactive Protein NT-Pro-B Natriuret Pep 37654 H Total Protein Albumin 3.2 L 01/09/20 01/10/20 01/10/20 20:14 00:16 06:54 WBC 3.3 L RBC 3.00 L Hgb 9.2 L Hct 27.8 L MCV RDW 17.2 H Plt Count Lymph % (Auto) 8.9 L [place] % (Auto) 11.5 H Lymph # 0.3 L Seg Neutrophils % 79.1 H Seg Neuts % (Manual) Lymphocytes % (Manual) Seg Neutrophils # Man Lymphocytes # (Manual) Monocytes # (Manual) PT INR D-Dimer Heparin Anti-Xa Level ABG pH ABG pO2 ABG HCO3 ABG O2 Saturation ABG Base Excess ABG Hemoglobin Oxyhemoglobin Sodium Potassium Chloride Carbon Dioxide BUN Creatinine Glucose POC Glucose Calcium Magnesium Ferritin Direct Bilirubin AST ALT Alkaline Phosphatase Lactate Dehydrogenase Troponin T 0.349 H* 0.328 H* C-Reactive Protein NT-Pro-B Natriuret Pep Total Protein Albumin 01/10/20 01/10/20 01/11/20 06:54 06:54 16:45 WBC RBC Hgb Hct MCV RDW Plt Count Lymph % (Auto) [place] % (Auto) Lymph # Seg Neutrophils % Seg Neuts % (Manual) Lymphocytes % (Manual) Seg Neutrophils # Man Lymphocytes # (Manual) Monocytes # (Manual) PT INR D-Dimer Heparin Anti-Xa Level ABG pH ABG pO2 ABG HCO3 ABG O2 Saturation ABG Base Excess ABG Hemoglobin Oxyhemoglobin Sodium 133 L Potassium Chloride 90.6 L Carbon Dioxide BUN 50 H Creatinine 8.4 H Glucose 101 H POC Glucose 106 H Calcium 8.1 L Magnesium Ferritin Direct Bilirubin AST ALT Alkaline Phosphatase 148 H Lactate Dehydrogenase Troponin T 0.315 H* C-Reactive Protein NT-Pro-B Natriuret Pep Total Protein 5.4 L Albumin 2.7 L 01/12/20 01/13/20 01/13/20 16:01 06:11 06:11 WBC 3.1 L RBC 3.25 L Hgb 9.8 L Hct MCV RDW 17.2 H Plt Count 136 L Lymph % (Auto) [place] % (Auto) Lymph # Seg Neutrophils % Seg Neuts % (Manual) Lymphocytes % (Manual) Seg Neutrophils # Man Lymphocytes # (Manual) Monocytes # (Manual) PT INR D-Dimer Heparin Anti-Xa Level ABG pH ABG pO2 ABG HCO3 ABG O2 Saturation ABG Base Excess ABG Hemoglobin Oxyhemoglobin Sodium 135 L Potassium Chloride 93.4 L Carbon Dioxide BUN 19 H Creatinine 4.5 H Glucose 120 H POC Glucose Calcium 7.8 L Magnesium 1.40 L Ferritin Direct Bilirubin AST ALT Alkaline Phosphatase Lactate Dehydrogenase Troponin T C-Reactive Protein NT-Pro-B Natriuret Pep Total Protein Albumin 01/16/20 01/16/20 01/16/20 08:35 11:49 14:11 WBC RBC Hgb Hct MCV RDW Plt Count Lymph % (Auto) [place] % (Auto) Lymph # Seg Neutrophils % Seg Neuts % (Manual) Lymphocytes % (Manual) Seg Neutrophils # Man Lymphocytes # (Manual) Monocytes # (Manual) PT INR D-Dimer Heparin Anti-Xa Level ABG pH ABG pO2 48.4 L ABG HCO3 30.5 H ABG O2 Saturation 81.9 L ABG Base Excess 4.6 H ABG Hemoglobin 10.5 L Oxyhemoglobin 80.1 L Sodium Potassium Chloride Carbon Dioxide BUN Creatinine Glucose POC Glucose 126 H 119 H Calcium Magnesium Ferritin Direct Bilirubin AST ALT Alkaline Phosphatase Lactate Dehydrogenase Troponin T C-Reactive Protein NT-Pro-B Natriuret Pep Total Protein Albumin 01/16/20 01/16/20 01/16/20 15:38 15:38 15:38 WBC RBC Hgb Hct MCV RDW Plt Count Lymph % (Auto) [place] % (Auto) Lymph # Seg Neutrophils % Seg Neuts % (Manual) Lymphocytes % (Manual) Seg Neutrophils # Man Lymphocytes # (Manual) Monocytes # (Manual) PT INR D-Dimer 1104.64 H Heparin Anti-Xa Level ABG pH ABG pO2 ABG HCO3 ABG O2 Saturation ABG Base Excess ABG Hemoglobin Oxyhemoglobin Sodium Potassium Chloride Carbon Dioxide BUN Creatinine Glucose POC Glucose Calcium Magnesium Ferritin > 2000.0 H Direct Bilirubin AST ALT Alkaline Phosphatase Lactate Dehydrogenase 690 H Troponin T C-Reactive Protein 24.10 H NT-Pro-B Natriuret Pep Total Protein Albumin 01/16/20 01/18/20 01/18/20 18:11 06:25 06:25 WBC RBC 3.15 L Hgb 9.4 L Hct 29.4 L MCV RDW 17.5 H Plt Count 135 L Lymph % (Auto) 3.8 L [place] % (Auto) Lymph # 0.2 L Seg Neutrophils % 88.8 H Seg Neuts % (Manual) Lymphocytes % (Manual) Seg Neutrophils # Man Lymphocytes # (Manual) Monocytes # (Manual) PT INR D-Dimer Heparin Anti-Xa Level ABG pH ABG pO2 ABG HCO3 ABG O2 Saturation ABG Base Excess ABG Hemoglobin Oxyhemoglobin Sodium Potassium Chloride 96.8 L Carbon Dioxide BUN 26 H Creatinine 4.2 H Glucose 115 H POC Glucose 130 H Calcium 8.2 L Magnesium Ferritin Direct Bilirubin AST ALT Alkaline Phosphatase Lactate Dehydrogenase 537 H Troponin T C-Reactive Protein 17.10 H NT-Pro-B Natriuret Pep Total Protein Albumin 01/18/20 01/18/20 01/18/20 06:25 06:25 12:15 WBC RBC Hgb Hct MCV RDW Plt Count Lymph % (Auto) [place] % (Auto) Lymph # Seg Neutrophils % Seg Neuts % (Manual) Lymphocytes % (Manual) Seg Neutrophils # Man Lymphocytes # (Manual) Monocytes # (Manual) PT INR D-Dimer 938.03 H Heparin Anti-Xa Level ABG pH ABG pO2 66.5 L ABG HCO3 30.1 H ABG O2 Saturation 93.2 L ABG Base Excess 4.6 H ABG Hemoglobin 10.0 L Oxyhemoglobin 91.3 L Sodium Potassium Chloride Carbon Dioxide BUN Creatinine Glucose POC Glucose Calcium Magnesium Ferritin 3105.0 H Direct Bilirubin AST ALT Alkaline Phosphatase Lactate Dehydrogenase Troponin T C-Reactive Protein NT-Pro-B Natriuret Pep Total Protein Albumin 01/20/20 01/20/20 01/20/20 07:37 07:37 07:37 WBC RBC Hgb Hct MCV RDW Plt Count Lymph % (Auto) [place] % (Auto) Lymph # Seg Neutrophils % Seg Neuts % (Manual) Lymphocytes % (Manual) Seg Neutrophils # Man Lymphocytes # (Manual) Monocytes # (Manual) PT INR D-Dimer 2072.25 H Heparin Anti-Xa Level ABG pH ABG pO2 ABG HCO3 ABG O2 Saturation ABG Base Excess ABG Hemoglobin Oxyhemoglobin Sodium Potassium Chloride Carbon Dioxide BUN Creatinine Glucose POC Glucose Calcium Magnesium Ferritin 1826.0 H Direct Bilirubin AST ALT Alkaline Phosphatase Lactate Dehydrogenase 496 H Troponin T C-Reactive Protein 19.30 H NT-Pro-B Natriuret Pep Total Protein Albumin 01/20/20 01/21/20 01/21/20 17:30 03:59 17:35 WBC RBC Hgb Hct MCV RDW Plt Count Lymph % (Auto) [place] % (Auto) Lymph # Seg Neutrophils % Seg Neuts % (Manual) Lymphocytes % (Manual) Seg Neutrophils # Man Lymphocytes # (Manual) Monocytes # (Manual) PT INR D-Dimer Heparin Anti-Xa Level ABG pH ABG pO2 61.1 L 67.4 L ABG HCO3 29.9 H 26.2 H ABG O2 Saturation 91.7 L 93.4 L ABG Base Excess 4.9 H ABG Hemoglobin 9.0 L 9.1 L Oxyhemoglobin 89.5 L 91.1 L Sodium 136 L Potassium Chloride Carbon Dioxide BUN 36 H Creatinine 4.9 H Glucose POC Glucose Calcium Magnesium Ferritin Direct Bilirubin AST ALT Alkaline Phosphatase Lactate Dehydrogenase Troponin T C-Reactive Protein NT-Pro-B Natriuret Pep Total Protein Albumin 01/21/20 01/22/20 01/22/20 Unknown 03:41 03:41 WBC RBC Hgb Hct MCV RDW Plt Count Lymph % (Auto) [place] % (Auto) Lymph # Seg Neutrophils % Seg Neuts % (Manual) Lymphocytes % (Manual) Seg Neutrophils # Man Lymphocytes # (Manual) Monocytes # (Manual) PT INR D-Dimer Heparin Anti-Xa Level ABG pH 7.465 H ABG pO2 48.9 L ABG HCO3 26.6 H ABG O2 Saturation 85.7 L ABG Base Excess ABG Hemoglobin 10.4 L Oxyhemoglobin 83.5 L Sodium Potassium Chloride Carbon Dioxide BUN Creatinine Glucose POC Glucose Calcium Magnesium Ferritin 6071.0 H Direct Bilirubin AST ALT Alkaline Phosphatase Lactate Dehydrogenase 963 H Troponin T C-Reactive Protein 30.00 H NT-Pro-B Natriuret Pep Total Protein Albumin 01/22/20 01/22/20 01/22/20 03:41 07:47 11:20 WBC RBC Hgb Hct MCV RDW Plt Count Lymph % (Auto) [place] % (Auto) Lymph # Seg Neutrophils % Seg Neuts % (Manual) Lymphocytes % (Manual) Seg Neutrophils # Man Lymphocytes # (Manual) Monocytes # (Manual) PT INR D-Dimer > 31060 H Heparin Anti-Xa Level ABG pH ABG pO2 66.7 L ABG HCO3 28.7 H ABG O2 Saturation 91.9 L ABG Base Excess ABG Hemoglobin 9.1 L Oxyhemoglobin 89.5 L Sodium Potassium Chloride 94.3 L Carbon Dioxide BUN 53 H Creatinine 6.5 H Glucose POC Glucose Calcium Magnesium Ferritin Direct Bilirubin AST ALT Alkaline Phosphatase Lactate Dehydrogenase Troponin T C-Reactive Protein NT-Pro-B Natriuret Pep Total Protein Albumin 01/22/20 01/22/20 01/23/20 11:49 Unknown 04:55 WBC 15.1 H RBC 3.05 L Hgb 8.8 L Hct 28.3 L MCV RDW 17.8 H Plt Count 125 L Lymph % (Auto) [place] % (Auto) Lymph # Seg Neutrophils % Seg Neuts % (Manual) Lymphocytes % (Manual) Seg Neutrophils # Man Lymphocytes # (Manual) Monocytes # (Manual) PT INR D-Dimer Heparin Anti-Xa Level ABG pH 7.340 L ABG pO2 77.7 L 136.3 H ABG HCO3 27.6 H 28.8 H ABG O2 Saturation ABG Base Excess ABG Hemoglobin 9.3 L 10.9 L Oxyhemoglobin 94.2 L Sodium Potassium Chloride Carbon Dioxide BUN Creatinine Glucose POC Glucose Calcium Magnesium Ferritin Direct Bilirubin AST ALT Alkaline Phosphatase Lactate Dehydrogenase Troponin T C-Reactive Protein NT-Pro-B Natriuret Pep Total Protein Albumin 01/23/20 01/23/20 01/23/20 06:23 07:07 12:23 WBC RBC Hgb Hct MCV RDW Plt Count Lymph % (Auto) [place] % (Auto) Lymph # Seg Neutrophils % Seg Neuts % (Manual) Lymphocytes % (Manual) Seg Neutrophils # Man Lymphocytes # (Manual) Monocytes # (Manual) PT INR D-Dimer Heparin Anti-Xa Level ABG pH ABG pO2 ABG HCO3 ABG O2 Saturation ABG Base Excess ABG Hemoglobin Oxyhemoglobin Sodium Potassium Chloride Carbon Dioxide BUN Creatinine Glucose POC Glucose 57 L 127 H 131 H Calcium Magnesium Ferritin Direct Bilirubin AST ALT Alkaline Phosphatase Lactate Dehydrogenase Troponin T C-Reactive Protein NT-Pro-B Natriuret Pep Total Protein Albumin 01/23/20 01/23/20 01/24/20 Unknown Unknown 04:00 WBC 16.2 H RBC 3.08 L Hgb 8.9 L Hct 28.6 L MCV RDW 17.8 H Plt Count 139 L Lymph % (Auto) [place] % (Auto) Lymph # Seg Neutrophils % Seg Neuts % (Manual) Lymphocytes % (Manual) Seg Neutrophils # Man Lymphocytes # (Manual) Monocytes # (Manual) PT INR D-Dimer Heparin Anti-Xa Level < 0.10 L ABG pH ABG pO2 ABG HCO3 ABG O2 Saturation ABG Base Excess ABG Hemoglobin Oxyhemoglobin Sodium Potassium Chloride Carbon Dioxide BUN Creatinine Glucose POC Glucose Calcium Magnesium Ferritin 4195.0 H Direct Bilirubin AST ALT Alkaline Phosphatase Lactate Dehydrogenase Troponin T C-Reactive Protein NT-Pro-B Natriuret Pep Total Protein Albumin 01/24/20 01/24/20 01/24/20 04:00 04:00 04:00 WBC RBC Hgb Hct MCV RDW Plt Count Lymph % (Auto) [place] % (Auto) Lymph # Seg Neutrophils % Seg Neuts % (Manual) Lymphocytes % (Manual) Seg Neutrophils # Man Lymphocytes # (Manual) Monocytes # (Manual) PT INR D-Dimer 5783.11 H Heparin Anti-Xa Level ABG pH 7.188 L* ABG pO2 70.8 L ABG HCO3 32.2 H ABG O2 Saturation 90.4 L ABG Base Excess ABG Hemoglobin 8.5 L Oxyhemoglobin 88.1 L Sodium Potassium Chloride Carbon Dioxide BUN Creatinine Glucose POC Glucose Calcium Magnesium Ferritin Direct Bilirubin AST ALT Alkaline Phosphatase Lactate Dehydrogenase 474 H Troponin T C-Reactive Protein 29.80 H NT-Pro-B Natriuret Pep Total Protein Albumin 01/24/20 01/24/20 01/24/20 05:20 05:51 09:14 WBC RBC Hgb Hct MCV RDW Plt Count Lymph % (Auto) [place] % (Auto) Lymph # Seg Neutrophils % Seg Neuts % (Manual) Lymphocytes % (Manual) Seg Neutrophils # Man Lymphocytes # (Manual) Monocytes # (Manual) PT INR D-Dimer Heparin Anti-Xa Level ABG pH 7.214 L ABG pO2 71.7 L ABG HCO3 31.5 H ABG O2 Saturation 91.8 L ABG Base Excess ABG Hemoglobin 9.1 L Oxyhemoglobin 89.3 L Sodium Potassium Chloride Carbon Dioxide BUN Creatinine Glucose POC Glucose 50 L 53 L Calcium Magnesium Ferritin Direct Bilirubin AST ALT Alkaline Phosphatase Lactate Dehydrogenase Troponin T C-Reactive Protein NT-Pro-B Natriuret Pep Total Protein Albumin 01/24/20 01/24/20 01/24/20 15:10 18:04 21:10 WBC RBC Hgb Hct MCV RDW Plt Count Lymph % (Auto) [place] % (Auto) Lymph # Seg Neutrophils % Seg Neuts % (Manual) Lymphocytes % (Manual) Seg Neutrophils # Man Lymphocytes # (Manual) Monocytes # (Manual) PT INR D-Dimer Heparin Anti-Xa Level ABG pH ABG pO2 ABG HCO3 ABG O2 Saturation ABG Base Excess ABG Hemoglobin Oxyhemoglobin Sodium Potassium Chloride Carbon Dioxide BUN Creatinine Glucose POC Glucose 114 H 51 L 144 H Calcium Magnesium Ferritin Direct Bilirubin AST ALT Alkaline Phosphatase Lactate Dehydrogenase Troponin T C-Reactive Protein NT-Pro-B Natriuret Pep Total Protein Albumin 01/24/20 01/25/20 01/25/20 Unknown 00:32 03:50 WBC 13.0 H RBC 3.10 L Hgb 9.2 L Hct 29.0 L MCV RDW 17.7 H Plt Count Lymph % (Auto) [place] % (Auto) Lymph # Seg Neutrophils % Seg Neuts % (Manual) 92.0 H Lymphocytes % (Manual) 5.0 L Seg Neutrophils # Man 12.0 H Lymphocytes # (Manual) 0.7 L Monocytes # (Manual) PT INR D-Dimer Heparin Anti-Xa Level ABG pH 7.291 L ABG pO2 71.3 L ABG HCO3 30.6 H ABG O2 Saturation 93.6 L ABG Base Excess 3.3 H ABG Hemoglobin 8.1 L Oxyhemoglobin 91.2 L Sodium Potassium Chloride Carbon Dioxide BUN Creatinine Glucose POC Glucose 114 H Calcium Magnesium Ferritin Direct Bilirubin AST ALT Alkaline Phosphatase Lactate Dehydrogenase Troponin T C-Reactive Protein NT-Pro-B Natriuret Pep Total Protein Albumin 0401/25/20 01/25/20 04:22 06:05 17:28 WBC RBC Hgb Hct MCV RDW Plt Count Lymph % (Auto) [place] % (Auto) Lymph # Seg Neutrophils % Seg Neuts % (Manual) Lymphocytes % (Manual) Seg Neutrophils # Man Lymphocytes # (Manual) Monocytes # (Manual) PT INR D-Dimer Heparin Anti-Xa Level ABG pH 7.304 L ABG pO2 69.5 L ABG HCO3 29.7 H ABG O2 Saturation 93.2 L ABG Base Excess ABG Hemoglobin 8.7 L Oxyhemoglobin 90.7 L Sodium Potassium Chloride Carbon Dioxide BUN Creatinine Glucose POC Glucose 136 H 127 H Calcium Magnesium Ferritin Direct Bilirubin AST ALT Alkaline Phosphatase Lactate Dehydrogenase Troponin T C-Reactive Protein NT-Pro-B Natriuret Pep Total Protein Albumin 01/26/20 01/26/20 01/26/20 00:20 02:31 02:31 WBC RBC Hgb Hct MCV RDW Plt Count Lymph % (Auto) [place] % (Auto) Lymph # Seg Neutrophils % Seg Neuts % (Manual) Lymphocytes % (Manual) Seg Neutrophils # Man Lymphocytes # (Manual) Monocytes # (Manual) PT INR D-Dimer Heparin Anti-Xa Level ABG pH ABG pO2 ABG HCO3 ABG O2 Saturation ABG Base Excess ABG Hemoglobin Oxyhemoglobin Sodium Potassium Chloride Carbon Dioxide BUN Creatinine Glucose POC Glucose 127 H Calcium Magnesium Ferritin 3764.0 H Direct Bilirubin AST ALT Alkaline Phosphatase Lactate Dehydrogenase 393 H Troponin T C-Reactive Protein 28.60 H NT-Pro-B Natriuret Pep Total Protein Albumin 01/26/20 01/26/20 01/26/20 02:31 04:45 05:24 WBC RBC Hgb Hct MCV RDW Plt Count Lymph % (Auto) [place] % (Auto) Lymph # Seg Neutrophils % Seg Neuts % (Manual) Lymphocytes % (Manual) Seg Neutrophils # Man Lymphocytes # (Manual) Monocytes # (Manual) PT INR D-Dimer 3828.76 H Heparin Anti-Xa Level ABG pH ABG pO2 ABG HCO3 30.8 H ABG O2 Saturation ABG Base Excess 4.9 H ABG Hemoglobin 7.4 L Oxyhemoglobin 94.6 L Sodium Potassium Chloride Carbon Dioxide BUN Creatinine Glucose POC Glucose 121 H Calcium Magnesium Ferritin Direct Bilirubin AST ALT Alkaline Phosphatase Lactate Dehydrogenase Troponin T C-Reactive Protein NT-Pro-B Natriuret Pep Total Protein Albumin 01/26/20 01/26/20 01/26/20 10:40 12:36 18:10 WBC RBC Hgb Hct MCV RDW Plt Count Lymph % (Auto) [place] % (Auto) Lymph # Seg Neutrophils % Seg Neuts % (Manual) Lymphocytes % (Manual) Seg Neutrophils # Man Lymphocytes # (Manual) Monocytes # (Manual) PT INR D-Dimer Heparin Anti-Xa Level ABG pH ABG pO2 ABG HCO3 ABG O2 Saturation ABG Base Excess ABG Hemoglobin Oxyhemoglobin Sodium Potassium Chloride Carbon Dioxide BUN Creatinine Glucose POC Glucose 119 H 126 H 159 H Calcium Magnesium Ferritin Direct Bilirubin AST ALT Alkaline Phosphatase Lactate Dehydrogenase Troponin T C-Reactive Protein NT-Pro-B Natriuret Pep Total Protein Albumin 01/27/20 01/27/20 01/27/20 03:45 06:15 12:19 WBC RBC Hgb Hct MCV RDW Plt Count Lymph % (Auto) [place] % (Auto) Lymph # Seg Neutrophils % Seg Neuts % (Manual) Lymphocytes % (Manual) Seg Neutrophils # Man Lymphocytes # (Manual) Monocytes # (Manual) PT INR D-Dimer Heparin Anti-Xa Level ABG pH 7.307 L ABG pO2 91.1 H ABG HCO3 30.5 H ABG O2 Saturation ABG Base Excess 3.4 H ABG Hemoglobin 8.7 L Oxyhemoglobin 94.3 L Sodium Potassium Chloride Carbon Dioxide BUN Creatinine Glucose POC Glucose 147 H 164 H Calcium Magnesium Ferritin Direct Bilirubin AST ALT Alkaline Phosphatase Lactate Dehydrogenase Troponin T C-Reactive Protein NT-Pro-B Natriuret Pep Total Protein Albumin 01/27/20 01/28/20 01/28/20 17:42 00:29 04:34 WBC RBC Hgb Hct MCV RDW Plt Count Lymph % (Auto) [place] % (Auto) Lymph # Seg Neutrophils % Seg Neuts % (Manual) Lymphocytes % (Manual) Seg Neutrophils # Man Lymphocytes # (Manual) Monocytes # (Manual) PT INR D-Dimer Heparin Anti-Xa Level ABG pH ABG pO2 ABG HCO3 ABG O2 Saturation ABG Base Excess ABG Hemoglobin Oxyhemoglobin Sodium Potassium Chloride Carbon Dioxide BUN Creatinine Glucose POC Glucose 149 H 178 H Calcium Magnesium Ferritin > 2000.0 H Direct Bilirubin AST ALT Alkaline Phosphatase Lactate Dehydrogenase Troponin T C-Reactive Protein NT-Pro-B Natriuret Pep Total Protein Albumin 01/28/20 01/28/20 01/28/20 04:34 04:34 05:20 WBC RBC Hgb Hct MCV RDW Plt Count Lymph % (Auto) [place] % (Auto) Lymph # Seg Neutrophils % Seg Neuts % (Manual) Lymphocytes % (Manual) Seg Neutrophils # Man Lymphocytes # (Manual) Monocytes # (Manual) PT INR D-Dimer 2379 H Heparin Anti-Xa Level ABG pH 7.237 L ABG pO2 90.9 H ABG HCO3 29.1 H ABG O2 Saturation ABG Base Excess ABG Hemoglobin 7.5 L Oxyhemoglobin 94.0 L Sodium Potassium Chloride Carbon Dioxide BUN Creatinine Glucose POC Glucose Calcium Magnesium Ferritin Direct Bilirubin AST ALT Alkaline Phosphatase Lactate Dehydrogenase 434 H Troponin T C-Reactive Protein 9.70 H NT-Pro-B Natriuret Pep Total Protein Albumin 01/28/20 01/28/20 01/28/20 06:21 12:25 18:17 WBC RBC Hgb Hct MCV RDW Plt Count Lymph % (Auto) [place] % (Auto) Lymph # Seg Neutrophils % Seg Neuts % (Manual) Lymphocytes % (Manual) Seg Neutrophils # Man Lymphocytes # (Manual) Monocytes # (Manual) PT INR D-Dimer Heparin Anti-Xa Level ABG pH ABG pO2 ABG HCO3 ABG O2 Saturation ABG Base Excess ABG Hemoglobin Oxyhemoglobin Sodium Potassium Chloride Carbon Dioxide BUN Creatinine Glucose POC Glucose 127 H 196 H 190 H Calcium Magnesium Ferritin Direct Bilirubin AST ALT Alkaline Phosphatase Lactate Dehydrogenase Troponin T C-Reactive Protein NT-Pro-B Natriuret Pep Total Protein Albumin 01/28/20 01/29/20 01/29/20 23:35 04:00 04:00 WBC 12.6 H RBC 3.01 L Hgb 9.2 L Hct 29.3 L MCV 98 H RDW 18.1 H Plt Count Lymph % (Auto) [place] % (Auto) Lymph # Seg Neutrophils % Seg Neuts % (Manual) Lymphocytes % (Manual) Seg Neutrophils # Man Lymphocytes # (Manual) Monocytes # (Manual) PT INR D-Dimer Heparin Anti-Xa Level ABG pH ABG pO2 ABG HCO3 ABG O2 Saturation ABG Base Excess ABG Hemoglobin Oxyhemoglobin Sodium 132 L Potassium Chloride 90.1 L Carbon Dioxide BUN 50 H Creatinine 3.7 H Glucose 184 H POC Glucose 177 H Calcium Magnesium Ferritin Direct Bilirubin AST 93 H ALT Alkaline Phosphatase 678 H Lactate Dehydrogenase Troponin T C-Reactive Protein NT-Pro-B Natriuret Pep Total Protein Albumin 1.7 L 01/29/20 01/29/20 01/29/20 05:03 11:53 16:44 WBC RBC Hgb Hct MCV RDW Plt Count Lymph % (Auto) [place] % (Auto) Lymph # Seg Neutrophils % Seg Neuts % (Manual) Lymphocytes % (Manual) Seg Neutrophils # Man Lymphocytes # (Manual) Monocytes # (Manual) PT INR D-Dimer Heparin Anti-Xa Level ABG pH ABG pO2 ABG HCO3 ABG O2 Saturation ABG Base Excess ABG Hemoglobin Oxyhemoglobin Sodium Potassium Chloride Carbon Dioxide BUN Creatinine Glucose POC Glucose 145 H 193 H 174 H Calcium Magnesium Ferritin Direct Bilirubin AST ALT Alkaline Phosphatase Lactate Dehydrogenase Troponin T C-Reactive Protein NT-Pro-B Natriuret Pep Total Protein Albumin 01/29/20 01/30/20 01/30/20 23:38 04:25 11:45 WBC RBC Hgb Hct MCV RDW Plt Count Lymph % (Auto) [place] % (Auto) Lymph # Seg Neutrophils % Seg Neuts % (Manual) Lymphocytes % (Manual) Seg Neutrophils # Man Lymphocytes # (Manual) Monocytes # (Manual) PT INR D-Dimer Heparin Anti-Xa Level ABG pH 7.253 L ABG pO2 61.8 L ABG HCO3 29.7 H ABG O2 Saturation 90.1 L ABG Base Excess ABG Hemoglobin 8.2 L Oxyhemoglobin 87.5 L Sodium Potassium Chloride Carbon Dioxide BUN Creatinine Glucose POC Glucose 144 H 191 H Calcium Magnesium Ferritin Direct Bilirubin AST ALT Alkaline Phosphatase Lactate Dehydrogenase Troponin T C-Reactive Protein NT-Pro-B Natriuret Pep Total Protein Albumin 01/30/20 01/31/20 01/31/20 18:21 00:04 03:52 WBC RBC Hgb Hct MCV RDW Plt Count Lymph % (Auto) [place] % (Auto) Lymph # Seg Neutrophils % Seg Neuts % (Manual) Lymphocytes % (Manual) Seg Neutrophils # Man Lymphocytes # (Manual) Monocytes # (Manual) PT INR D-Dimer Heparin Anti-Xa Level ABG pH ABG pO2 69.3 L ABG HCO3 29.4 H ABG O2 Saturation ABG Base Excess 3.7 H ABG Hemoglobin 10.8 L Oxyhemoglobin Sodium Potassium Chloride Carbon Dioxide BUN Creatinine Glucose POC Glucose 198 H 129 H Calcium Magnesium Ferritin Direct Bilirubin AST ALT Alkaline Phosphatase Lactate Dehydrogenase Troponin T C-Reactive Protein NT-Pro-B Natriuret Pep Total Protein Albumin 01/31/20 01/31/20 01/31/20 04:00 04:16 05:12 WBC 16.7 H RBC 2.73 L Hgb 8.3 L Hct 25.7 L MCV RDW 18.0 H Plt Count Lymph % (Auto) [place] % (Auto) Lymph # Seg Neutrophils % Seg Neuts % (Manual) 92.0 H Lymphocytes % (Manual) 2.0 L Seg Neutrophils # Man 15.4 H Lymphocytes # (Manual) 0.3 L Monocytes # (Manual) 1.0 H PT INR D-Dimer Heparin Anti-Xa Level ABG pH ABG pO2 ABG HCO3 ABG O2 Saturation ABG Base Excess ABG Hemoglobin Oxyhemoglobin Sodium 130 L Potassium Chloride 90.1 L Carbon Dioxide BUN 61 H Creatinine 3.4 H Glucose 128 H POC Glucose 157 H Calcium Magnesium Ferritin Direct Bilirubin AST 103 H ALT 63 H Alkaline Phosphatase 534 H Lactate Dehydrogenase Troponin T C-Reactive Protein NT-Pro-B Natriuret Pep Total Protein Albumin 2.1 L 01/31/20 01/31/20 01/31/20 11:50 17:39 18:47 WBC RBC Hgb Hct MCV RDW Plt Count Lymph % (Auto) [place] % (Auto) Lymph # Seg Neutrophils % Seg Neuts % (Manual) Lymphocytes % (Manual) Seg Neutrophils # Man Lymphocytes # (Manual) Monocytes # (Manual) PT INR D-Dimer Heparin Anti-Xa Level ABG pH ABG pO2 ABG HCO3 ABG O2 Saturation ABG Base Excess ABG Hemoglobin Oxyhemoglobin Sodium Potassium Chloride Carbon Dioxide BUN Creatinine Glucose POC Glucose 129 H 51 L 172 H Calcium Magnesium Ferritin Direct Bilirubin AST ALT Alkaline Phosphatase Lactate Dehydrogenase Troponin T C-Reactive Protein NT-Pro-B Natriuret Pep Total Protein Albumin 02/01/20 02/01/20 02/01/20 03:49 03:49 05:00 WBC 17.4 H RBC 2.68 L Hgb 8.0 L Hct 25.2 L MCV RDW 18.4 H Plt Count Lymph % (Auto) [place] % (Auto) Lymph # Seg Neutrophils % Seg Neuts % (Manual) Lymphocytes % (Manual) Seg Neutrophils # Man Lymphocytes # (Manual) Monocytes # (Manual) PT INR D-Dimer Heparin Anti-Xa Level ABG pH 7.290 L ABG pO2 ABG HCO3 26.8 H ABG O2 Saturation ABG Base Excess ABG Hemoglobin 7.5 L Oxyhemoglobin 94.2 L Sodium 133 L Potassium Chloride 90.8 L Carbon Dioxide 21 L BUN 90 H Creatinine 4.6 H Glucose 145 H POC Glucose Calcium Magnesium Ferritin Direct Bilirubin AST ALT Alkaline Phosphatase Lactate Dehydrogenase Troponin T C-Reactive Protein NT-Pro-B Natriuret Pep Total Protein Albumin 02/01/20 02/01/20 02/01/20 05:34 06:09 12:42 WBC RBC Hgb Hct MCV RDW Plt Count Lymph % (Auto) [place] % (Auto) Lymph # Seg Neutrophils % Seg Neuts % (Manual) Lymphocytes % (Manual) Seg Neutrophils # Man Lymphocytes # (Manual) Monocytes # (Manual) PT INR D-Dimer Heparin Anti-Xa Level ABG pH ABG pO2 ABG HCO3 ABG O2 Saturation ABG Base Excess ABG Hemoglobin Oxyhemoglobin Sodium Potassium Chloride Carbon Dioxide BUN Creatinine Glucose POC Glucose 166 H 143 H 218 H Calcium Magnesium Ferritin Direct Bilirubin AST ALT Alkaline Phosphatase Lactate Dehydrogenase Troponin T C-Reactive Protein NT-Pro-B Natriuret Pep Total Protein Albumin 02/01/20 02/01/20 02/02/20 17:38 18:24 05:00 WBC RBC Hgb Hct MCV RDW Plt Count Lymph % (Auto) [place] % (Auto) Lymph # Seg Neutrophils % Seg Neuts % (Manual) Lymphocytes % (Manual) Seg Neutrophils # Man Lymphocytes # (Manual) Monocytes # (Manual) PT INR D-Dimer Heparin Anti-Xa Level ABG pH 7.317 L ABG pO2 ABG HCO3 28.2 H ABG O2 Saturation ABG Base Excess ABG Hemoglobin 10.1 L Oxyhemoglobin 94.0 L Sodium Potassium Chloride Carbon Dioxide BUN Creatinine Glucose POC Glucose 158 H 233 H Calcium Magnesium Ferritin Direct Bilirubin AST ALT Alkaline Phosphatase Lactate Dehydrogenase Troponin T C-Reactive Protein NT-Pro-B Natriuret Pep Total Protein Albumin 02/02/20 02/02/20 02/02/20 05:44 05:44 05:44 WBC 16.0 H RBC 2.85 L Hgb 8.3 L Hct 26.3 L MCV RDW 18.6 H Plt Count Lymph % (Auto) [place] % (Auto) Lymph # Seg Neutrophils % Seg Neuts % (Manual) 91.0 H Lymphocytes % (Manual) 2.0 L Seg Neutrophils # Man 14.6 H Lymphocytes # (Manual) 0.3 L Monocytes # (Manual) PT INR D-Dimer Heparin Anti-Xa Level 0.77 H ABG pH ABG pO2 ABG HCO3 ABG O2 Saturation ABG Base Excess ABG Hemoglobin Oxyhemoglobin Sodium Potassium Chloride 95.5 L Carbon Dioxide BUN 57 H Creatinine 3.0 H Glucose 144 H POC Glucose Calcium 8.1 L Magnesium Ferritin Direct Bilirubin 0.3 H AST 179 H ALT 106 H Alkaline Phosphatase 557 H Lactate Dehydrogenase Troponin T C-Reactive Protein NT-Pro-B Natriuret Pep Total Protein 6.1 L Albumin 2.3 L 02/02/20 02/02/20 02/02/20 11:17 11:33 12:24 WBC RBC Hgb Hct MCV RDW Plt Count Lymph % (Auto) [place] % (Auto) Lymph # Seg Neutrophils % Seg Neuts % (Manual) Lymphocytes % (Manual) Seg Neutrophils # Man Lymphocytes # (Manual) Monocytes # (Manual) PT INR D-Dimer Heparin Anti-Xa Level ABG pH ABG pO2 ABG HCO3 ABG O2 Saturation ABG Base Excess ABG Hemoglobin Oxyhemoglobin Sodium Potassium Chloride Carbon Dioxide BUN Creatinine Glucose POC Glucose < 40 L < 40 L 224 H Calcium Magnesium Ferritin Direct Bilirubin AST ALT Alkaline Phosphatase Lactate Dehydrogenase Troponin T C-Reactive Protein NT-Pro-B Natriuret Pep Total Protein Albumin 02/02/20 02/02/20 02/03/20 12:33 17:42 00:25 WBC RBC Hgb Hct MCV RDW Plt Count Lymph % (Auto) [place] % (Auto) Lymph # Seg Neutrophils % Seg Neuts % (Manual) Lymphocytes % (Manual) Seg Neutrophils # Man Lymphocytes # (Manual) Monocytes # (Manual) PT INR D-Dimer Heparin Anti-Xa Level ABG pH ABG pO2 ABG HCO3 ABG O2 Saturation ABG Base Excess ABG Hemoglobin Oxyhemoglobin Sodium Potassium Chloride Carbon Dioxide BUN Creatinine Glucose 296 H POC Glucose 228 H < 40 L Calcium Magnesium Ferritin Direct Bilirubin AST ALT Alkaline Phosphatase Lactate Dehydrogenase Troponin T C-Reactive Protein NT-Pro-B Natriuret Pep Total Protein Albumin 02/03/20 02/03/20 02/03/20 00:27 03:59 03:59 WBC 22.9 H RBC 2.80 L Hgb 8.3 L Hct 27.4 L MCV 98 H RDW 19.2 H Plt Count Lymph % (Auto) [place] % (Auto) Lymph # Seg Neutrophils % Seg Neuts % (Manual) 92.0 H Lymphocytes % (Manual) 4.0 L Seg Neutrophils # Man 21.1 H Lymphocytes # (Manual) 0.9 L Monocytes # (Manual) PT INR D-Dimer Heparin Anti-Xa Level ABG pH ABG pO2 ABG HCO3 ABG O2 Saturation ABG Base Excess ABG Hemoglobin Oxyhemoglobin Sodium 134 L Potassium 3.5 L Chloride Carbon Dioxide 21 L BUN 40 H Creatinine 2.6 H Glucose 180 H POC Glucose 198 H Calcium Magnesium Ferritin Direct Bilirubin AST ALT Alkaline Phosphatase Lactate Dehydrogenase Troponin T C-Reactive Protein NT-Pro-B Natriuret Pep Total Protein Albumin 02/03/20 02/03/20 04:48 05:00 WBC RBC Hgb Hct MCV RDW Plt Count Lymph % (Auto) [place] % (Auto) Lymph # Seg Neutrophils % Seg Neuts % (Manual) Lymphocytes % (Manual) Seg Neutrophils # Man Lymphocytes # (Manual) Monocytes # (Manual) PT INR D-Dimer Heparin Anti-Xa Level ABG pH 7.315 L ABG pO2 97.3 H ABG HCO3 28.5 H ABG O2 Saturation ABG Base Excess ABG Hemoglobin 8.3 L Oxyhemoglobin 94.8 L Sodium Potassium Chloride Carbon Dioxide BUN Creatinine Glucose POC Glucose 182 H Calcium Magnesium Ferritin Direct Bilirubin AST ALT Alkaline Phosphatase Lactate Dehydrogenase Troponin T C-Reactive Protein NT-Pro-B Natriuret Pep Total Protein Albumin Allied health notes reviewed: nursing
--- NOTE | 2020-02-03 13:04 | Progress Note ---
Assessment and Plan - Patient Problems (1) Volume overload Current Visit: Yes Status: Acute Qualifiers: Plan to address problem: end-stage renal disease with fluid overload. Improved with fluid removal on dialysis. hemodialysis again in am (2) Pneumonia due to COVID-19 virus Current Visit: Yes Status: Acute Plan to address problem: continue treatment per infectious disease. (3) Anemia in CKD (chronic kidney disease) Current Visit: Yes Status: Acute Qualifiers: Chronic kidney disease stage: on chronic dialysis Qualified Code(s): N18.6 - End stage renal disease; D63.1 - Anemia in chronic kidney disease; Z99.2 - Dependence on renal dialysis Plan to address problem: give erythropoietin on dialysis (4) T2DM (type 2 diabetes mellitus) Current Visit: Yes Status: Acute Qualifiers: Diabetes mellitus halfway insulin use: unspecified halfway insulin use status Plan to address problem: blood sugar management by primary attending. (5) Acute respiratory failure with hypoxia Current Visit: No Status: Acute Plan to address problem: ventilator management by pulmonary/infantry assaultman (6) Hyponatremia Current Visit: No Status: Acute Plan to address problem: hypervolemic hyponatremia. Follow-up sodium with fluid removal on dialysis (7) Hypertensive chronic kidney disease with stage 5 chronic kidney disease or end stage renal disease Current Visit: No Status: Chronic Plan to address problem: patient is on vasopressor. Follow blood pressure current medications (8) Sepsis with hypotension Current Visit: Yes Status: Acute Plan to address problem: back on Levophed. Wean to mean arterial pressure more than 65. Subjective Date of service: 02/03/20 Principal diagnosis: Pneumonia Interval history: Patient is intubated on the ventilator in intensive care unit. On vasopressor - Levophed 2 mcg/Kg/min. Patient was seen and examined today remains sedated on the ventilator Objective - Exam Narrative Exam: elderly -[place] female lying in bed intubated on the ventilator HEENT: Normocephalic atraumatic, pupils equal round reactive to light ETT intact Neck: Supple, no venous distention, no goiter CVS: S1S2 RRR No murmur, rub or gallop Lungs: Coarse Bs, no use of accessory muscles of respiration Abdomen: Full, soft, nontender, no organomegaly no bruit, bowel sounds are present Extremities: No edema, no cyanosis or clubbing Urinary: Deferred Musculo-skeletal: No joint deformities or swelling Neuro: Awake, alert, no focal deficits - Vital Signs Vital signs: Vital Signs - 12hr 02/03/20 02/03/20 02/03/20 01:15 01:31 01:45 Temperature Pulse Rate 100 H 101 H 102 H Pulse Rate [ From Monitor] Respiratory 19 20 19 Rate Blood Pressure 111/56 120/54 120/54 O2 Sat by Pulse 98 98 100 Oximetry 02/03/20 02/03/20 02/03/20 02:00 02:15 02:30 Temperature Pulse Rate 106 H 105 H 109 H Pulse Rate [ From Monitor] Respiratory 19 22 20 Rate Blood Pressure 123/57 123/57 116/55 O2 Sat by Pulse 97 99 96 Oximetry 02/03/20 02/03/20 02/03/20 02:45 03:00 03:15 Temperature Pulse Rate 105 H 105 H 104 H Pulse Rate [ From Monitor] Respiratory 21 21 20 Rate Blood Pressure 116/55 109/53 118/58 O2 Sat by Pulse 99 96 98 Oximetry 02/03/20 02/03/20 02/03/20 03:30 03:45 04:00 Temperature 98.9 F Pulse Rate 105 H 109 H 101 H Pulse Rate [ From Monitor] Respiratory 20 22 21 Rate Blood Pressure 123/58 123/58 115/55 O2 Sat by Pulse 97 98 85 Oximetry 02/03/20 02/03/20 02/03/20 04:15 04:30 04:41 Temperature Pulse Rate 109 H 112 H 105 H Pulse Rate [ From Monitor] Respiratory 23 29 H Rate Blood Pressure 123/58 120/55 111/51 O2 Sat by Pulse 98 97 98 Oximetry 02/03/20 02/03/20 02/03/20 04:45 05:01 05:15 Temperature Pulse Rate 103 H 105 H 105 H Pulse Rate [ From Monitor] Respiratory 21 22 18 Rate Blood Pressure 118/53 124/49 124/49 O2 Sat by Pulse 98 97 98 Oximetry 02/03/20 02/03/20 02/03/20 05:31 05:45 06:01 Temperature Pulse Rate 103 H 104 H 104 H Pulse Rate [ From Monitor] Respiratory 21 21 19 Rate Blood Pressure 125/50 114/42 110/52 O2 Sat by Pulse 97 98 96 Oximetry 02/03/20 02/03/20 02/03/20 06:16 06:30 06:46 Temperature Pulse Rate 106 H 103 H 105 H Pulse Rate [ From Monitor] Respiratory 20 23 22 Rate Blood Pressure 109/49 118/46 108/54 O2 Sat by Pulse 96 96 97 Oximetry 02/03/20 02/03/20 02/03/20 07:00 07:16 07:30 Temperature Pulse Rate 104 H 105 H 106 H Pulse Rate [ From Monitor] Respiratory 22 17 19 Rate Blood Pressure 105/45 115/38 111/53 O2 Sat by Pulse 96 96 96 Oximetry 02/03/20 02/03/20 02/03/20 07:46 08:00 08:16 Temperature Pulse Rate 103 H 106 H 104 H Pulse Rate [ 106 H From Monitor] Respiratory 21 17 19 Rate Blood Pressure 114/50 118/41 107/44 O2 Sat by Pulse 97 96 96 Oximetry 02/03/20 02/03/20 02/03/20 08:26 08:30 08:46 Temperature Pulse Rate 105 H 105 H 109 H Pulse Rate [ From Monitor] Respiratory 23 19 Rate Blood Pressure 117/49 117/49 126/53 O2 Sat by Pulse 100 96 96 Oximetry 02/03/20 02/03/20 02/03/20 09:00 09:16 09:30 Temperature Pulse Rate 107 H 107 H 107 H Pulse Rate [ From Monitor] Respiratory 23 23 18 Rate Blood Pressure 119/54 120/54 116/48 O2 Sat by Pulse 94 96 96 Oximetry 02/03/20 02/03/20 02/03/20 09:46 10:00 10:16 Temperature Pulse Rate 107 H 107 H 105 H Pulse Rate [ From Monitor] Respiratory 22 22 17 Rate Blood Pressure 114/51 124/51 123/45 O2 Sat by Pulse 96 96 95 Oximetry 02/03/20 02/03/20 02/03/20 10:22 10:30 10:46 Temperature Pulse Rate 107 H 107 H 100 H Pulse Rate [ From Monitor] Respiratory 24 19 Rate Blood Pressure 123/45 125/47 96/41 O2 Sat by Pulse 96 97 Oximetry 02/03/20 02/03/20 02/03/20 11:00 11:16 11:30 Temperature Pulse Rate 107 H 107 H 107 H Pulse Rate [ From Monitor] Respiratory 22 20 24 Rate Blood Pressure 123/52 124/54 107/46 O2 Sat by Pulse 96 96 95 Oximetry 02/03/20 02/03/20 02/03/20 11:45 12:00 12:16 Temperature 100.1 F H Pulse Rate 107 H 109 H 107 H Pulse Rate [ 109 H From Monitor] Respiratory 21 18 22 Rate Blood Pressure 123/60 132/52 117/51 O2 Sat by Pulse 96 96 96 Oximetry 02/03/20 02/03/20 12:18 12:30 Temperature Pulse Rate 105 H 106 H Pulse Rate [ From Monitor] Respiratory 21 Rate Blood Pressure 117/51 130/54 O2 Sat by Pulse 100 98 Oximetry - Lab 02/03/20 03:59 02/03/20 03:59 Most recent lab results ABG pH 7.315 pH Units (7.350-7.450) L 02/03/20 05:00 ABG pCO2 57.4 mm Hg 02/03/20 05:00 ABG pO2 97.3 mm Hg (80.0-90.0) H 02/03/20 05:00 ABG HCO3 28.5 mmol/L (20.0-26.0) H 02/03/20 05:00 ABG O2 Saturation 97.1 % (95.0-99.0) 02/03/20 05:00 Calcium 8.5 mg/dL (8.4-10.2) 02/03/20 03:59 Phosphorus 3.30 mg/dL (2.5-4.5) 01/12/20 16:01 Magnesium 2.00 mg/dL (1.7-2.3) 01/13/20 06:11 Medications & Allergies - Medications Allergies/Adverse Reactions: Allergies cheese Allergy (Mild, Verified 12/20/19 10:19) Itching iodine Allergy (Mild, Verified 12/20/19 10:16) Anaphylaxis clonidine Allergy (Verified 12/19/19 04:13) Anaphylaxis shellfish derived Adverse Reaction (Verified 12/19/19 04:13) Angioedema Home Medications: Home Medications Medication Instructions Recorded Confirmed Last Taken Type Atorvastatin [Lipitor] 40 mg PO DAILY 11/06/19 01/13/20 01/02/20 10:00 History Acetaminophen [Acetaminophen 8 650 mg PO Q8H PRN #30 tablet.er 11/21/19 01/13/20 01/03/20 22:00 Rx Hour] Cyclobenzaprine HCl [Flexeril 5 MG 5 mg PO QHS PRN #20 tab 11/21/19 01/13/20 01/01/20 22:00 Rx TAB] HYDROcodone/APAP 5-325 [[place] 1 each PO Q6HR PRN #18 tablet 12/13/19 01/13/20 01/01/20 22:00 Rx 5-325 mg TAB] amLODIPine 10 mg PO DAILY 90 Days #90 tab 12/18/19 01/13/20 01/01/20 10:00 Rx Ibuprofen 800 mg PO TID 12/19/19 01/13/20 01/02/20 22:00 History Magnesium Oxide [Mag-Ox] 400 mg PO QDAY 12/19/19 01/13/20 01/03/20 10:00 History diphenhydrAMINE [Benadryl CAP] 25 mg PO Q8HR PRN 12/19/19 01/13/20 01/03/20 21:00 History labetaloL [Labetalol 100mg TAB] 100 mg PO Q8H #90 tablet 12/21/19 01/13/2012/15 10:00 Rx traMADoL [Ultram 50 MG tab] 50 mg PO Q6HR PRN #20 tablet 12/29/19 01/13/20 12/31/19 10:00 Rx DULoxetine [Cymbalta] 30 mg PO QDAY #30 capsule 01/04/20 01/13/20 Unknown Rx Valsartan [Diovan] 80 mg PO DAILY #30 tablet 01/04/20 01/13/20 Unknown Rx Active Medications: Generic Name Dose Route Start Last Admin Trade Name Freq PRN Reason Stop Dose Admin Acetaminophen 650 mg 01/09/20 16:33 01/27/20 12:26 Tylenol PO 650 mg Q4H PRN Administration Pain MILD(1-3)/Fever >100.5/MEANS Lipase/Protease/Amylase 1 each 01/23/20 14:28 Pancreestrella Albarran 10,500 Unit FEEDTUBE PRN PRN For Clogged Feeding Tube Atorvastatin Calcium 40 mg 01/09/20 22:00 02/02/20 21:41 Lipitor PO 40 mg QHS PHILLY Administration Dextrose 50 ml 01/23/20 07:26 02/02/20 11:33 D50w (25gm) Syringe IV 50 ml Q30MIN PRN Administration BLOOD GLUCOSE < 70 Dextrose 25 ml 01/24/20 08:58 01/24/20 13:41 D50w (25gm) Syringe IV 25 ml Q4H PRN Administration BG < 80 MG/DL Docusate Sodium 100 mg 01/25/20 22:00 02/03/20 10:22 Colace PO 100 mg BID PHILLY Administration Enoxaparin Sodium 80 mg 01/23/20 12:00 02/03/20 10:23 Enoxaparin SUB-Q 80 mg Q24HR PHILLY Administration Famotidine 20 mg 01/09/20 22:00 02/03/20 10:22 Pepcid PO 20 mg DAILY PHILLY Administration Norepinephrine 4 mg in 250 mls @ 7.5 mls/hr 01/21/20 18:00 02/03/20 01:05 Levophed Drip 4 Mg/Ns 250 Ml IV 2 mcg/min TITR PHILLY 7.5 mls/hr Administration Protocol 2 MCG/MIN Propofol 1,000 mg in 100 mls @ 2.265 mls/hr 01/22/20 09:00 01/30/20 14:25 Diprivan 10 Mg/Ml IV 0 mcg/kg/min TITR PHILLY 0 mls/hr Titration Protocol 5 MCG/KG/MIN Sodium Chloride 100 mls @ 999 mls/hr 02/01/20 09:47 Nacl 0.9% IV SILVERIO PRN Hypotension Lorazepam 2 mg 01/23/20 15:36 Ativan IV Q10MIN PRN Agitation Morphine Sulfate 1 mg 01/30/20 11:21 02/01/20 17:47 Morphine IV 1 mg Q4H PRN Administration Pain, Moderate (4-6) Ondansetron HCl 4 mg 01/09/20 16:33 01/20/20 10:19 Zofran IV 4 mg Q8H PRN Administration Nausea And Vomiting Simple Syrup 15 ml 01/23/20 14:28 Simple Syrup FEEDTUBE PRN PRN Hypoglycemia Simple Syrup 30 ml 01/23/20 14:28 Simple Syrup FEEDTUBE PRN PRN Hypoglycemia Sodium Bicarbonate 325 mg 01/23/20 14:28 Sodium Bicarbonate FEEDTUBE PRN PRN For Clogged Feeding Tube Sodium Chloride 10 ml 01/09/20 22:00 02/03/20 10:23 Sodium Chloride Flush Syringe 10 Ml IV 10 ml BID PHILLY Administration Sodium Chloride 10 ml 01/09/20 16:33 Sodium Chloride Flush Syringe 10 Ml IV PRN PRN LINE FLUSH Valsartan 80 mg 01/10/20 10:00 02/03/20 10:22 Diovan PO 80 mg DAILY PHILLY Administration
[2020-02-04 05:23] LABS: Hemoglobin 6.9 gm/dl (10.1-14.3); Mean Corpuscular HGB Conc 31 % (30-34); Mean Corpuscular Volume 95 fl (79-97); Platelet Count 313 K/mm3 (140-440); Red Blood Count 2.31 M/mm3 (3.65-5.03); Red Cell Distribution Width 18.2 % (13.2-15.2)
[2020-02-04 05:41] LABS: Calcium 8.2 mg/dL (8.4-10.2)
[2020-02-04 06:02] LABS: ABG Base Excess 0.9 mmol/L (-2.0-3.0); ABG HCO3 27.4 mmol/L (20.0-26.0); ABG Methemoglobin 0.5 % (0.0-1.5); ABG Oxygen Saturation 96.8 % (95.0-99.0); ABG PCO2 54.8 mm Hg; ABG PH 7.317 pH Units (7.350-7.450); ABG PO2 77.7 mm Hg (80.0-90.0)
[2020-02-04 08:44] LABS: Anisocytosis 1+; Band Neutrophils # (Manual) 0.7 K/mm3; Basophils % (Manual) 0 % (0.0-1.8); Hypochromasia 1+; Macrocytosis Few; Myelocytes # (Manual) 0.2 K/mm3; Platelet Estimate Consistent w Auto; Total Cells Counted 100
[2020-02-04] MEDS ORDERED: SODIUM CHLORIDE 0.9% 500 ML 500 ML IV NR (09:08)
[2020-02-04] MEDS: VALSARTAN 40 MG TAB PO SCH (09:52)
--- NOTE | 2020-02-04 09:55 | Progress Note ---
Assessment and Plan Assessment and plan: Suspected COVID- 19 Patient with very elevated inflammatory markers of ferritin, CRP, LDH and d- dimer. Bilateral pneumonia. Continue antibiotics per ID ARDS. Etiology secondary to above. Acute hypoxemic respiratory failure. Continue oxygen to maintain sats greater than 92% Appears stable on HFNC; wean FiO2 then flow Chest pain Stress test neg for ischemia GERD and costochondritis in differential diagnosis Volume overload s/p hemodialysis Nephrology consulted,following Acute on Chronic diastolic CHF exacerbation Secondary to volume overload End stage renal disease on dialysis Nephrology following T2DM (type 2 diabetes mellitus) Continue continue coverage Check hemoglobin A1c Hypertension Continue antihypertensives Hyponatremia Secondary to increased volume--dilutional DVT prophylaxis On heparin and GI prophylaxis 01/11 Covid 19 survey testing sent, nasal swab done 01/10 01/12 Patient has acute resp failure. may need Oxygen on dc. awaiting Covid result 01/13 Still has shortness of breath, awaiting Covid test. 01/14 Pt still dyspneic, await covid testing, Pulse ox 83% 01/16/2020. Patient remains dyspneic. Follow-up COVID testing. 01/17/2020. Patient still requiring large amounts of oxygen. Patient currently with 15 L satting at 95%. Patient with increased inflammatory markers. Follow- up chest x-ray today. 01/18/20--Patient still requiring large amounts of oxygen. Patient currently with 15 L %. Patient with increased inflammatory markers. 01/19/2020 very elevated inflammatory markers- ferritin> 2000, CRP >24, LDH> 600, d-dimer >1000 putting her at high risk for ARDS. Continue hydroxychloroquine 400 mg PO BID for 1 day then 200 mg PO BID for 4 days (total 5 days) with zinc 220 mg PO qday. Continue ceftriaxone. ContinueCOVID isolationprecautions pe r [facility]. Continue serial Ferritin, LDH, D-Dimer, CRP every 48h 01/20/2020. Inflammatory markers remain elevated with ferritin 1826, LDH 496, CRP 19.3, and d-dimer 2072. Patient requiring high flow nasal cannula 40L, FiO2 80%. Pulmonary following. Continue antibiotics and Plaquenil. Continue COVID isolationprecautions per [facility] protocol. Patient has a high risk mortality and remains guarded. 01/21/2020. Continue antibiotics and Plaquenil. Continue COVID isolationprecautions per [facility] protocol. Maintain sats of 88% and greater. Still on HFNC, O2 weaned to 95% overnight. Sats documented at 98%. Pulmonary following and reports If patient progresses could give bipap a one hour trial to see if there is improvement, repeat ABG, if not would suggest elective intubation 01/22/2020 Patient still critically ill. Yesterday 01/20 had cardiopulmonary arrest so now intubated in ICU. Prognosis guarded. 01/23/2020 still critically ill. No more fever. Continue vent management. 01/24/20 Still critically ill, remain on vent. Continue current management. Will call . 01/25/20 Patient still critically ill. I called Davis Hernandez and gave update. He wants DNR status and says he will request withdrawal of care if patient does not get better after weekend. I discussed with Truck [employer]. 01/26/20 patient still intubated, on vent. She means a DNR order. Discussed with Nurse 01/26 patient still critically ill, vent dependent. 01/27 patient still intubated, on vent. On levophed to keep MAP>65mmhg 01/29/2020 patient still intubated on mechanical ventilation. AC mode ventila tion with rate 20, tidal volume 400, FiO2 45% and PEEP 12. patient with no fever. Patient currently with sedation of propofol. Patient received hemodialysis yesterday with approximately 3 L removed. 01/30/2020. Patient still on mechanical ventilation. AC mode ventilation with rate 20, tidal volume 400, FiO2 45% and PEEP 8. Patient with elevated alkaline phosphatase. Check abdominal ultrasound. 01/31/2020. Patient still on mechanical ventilation. PSV mode ventilation with FiO2 50% and PEEP 8 and PS=12. Follow-up abdominal ultrasound for elevated alkaline phosphatase 02/01/2020. Patient currently with PSV FiO2 50%, pressure support 12, PEEP 8. Continue PSV trials per pulmonary. Continue Levophed to maintain MAP greater than 65. Continue propofol for sedation. 02/02/2020. Patient currently on AC mode ventilation rate 20, tidal volume 450, FiO2 50% and PEEP of 6. ABG with pH of 7.31, PCO2 56.4, and PO2 85. Patient confirmed COVID-19 positive on 01/17/2020. Patient with MOSF and guarded prognosis. Follow-up abdominal ultrasound (ordered 3 days ago) for elevated alkaline phosphatase and fevers. 02/03/2020. Patient continues on mechanical ventilation AC mode with rate 20, tidal volume 450 and PEEP of 8. Patient still with temperature 100.5. Patient off sedation but requiring Levophed at 2 mics. Patient with an episode of hypoglycemia yesterday requiring D5 half-normal. Continue to monitor for hypoglycemia. Patient with MOSF and guarded prognosis. Follow-up abdominal ultrasound (ordered 4 days ago) for elevated alkaline phosphatase and fevers. 02/04/2020. Patient continues on mechanical ventilation AC mode with rate 20, tidal volume 450, FiO2 50% and PEEP of 8. Patient continues to have fevers. Patient currently on Levophed. Continue pressors to maintain map greater than 65. Hemoglobin 6.9-1 unit PRBCs ordered. Patient may be able to wean off of Levophed with volume resuscitation of PRBCs. Follow-up abdominal ultrasound (ordered 5 days ago) for elevated alkaline phosphatase and fevers. Patient's prognosis remains guarded. The high probability of a clinically significant, sudden or life threatening deterioration of the [immunologic and respiratory] system(s) required my full and direct attention, intervention and personal management. The aggregate critical care time was [31] minutes. This time is in addition to time spent performing reported procedures but includes the following: [x] Data Review and interpretation [x] Patient assessment and monitoring of vital signs [x] Documentation [x] Medication orders and management History Interval history: Patient on mechanical ventilation. Hospitalist Physical - Constitutional Vitals: Temp Pulse Resp BP Pulse Ox 100.6 F H 94 H 23 115/50 96 02/03/20 20:32 02/04/20 09:45 02/04/20 09:45 02/04/20 09:45 02/04/20 09:45 General appearance: Present: no acute distress - EENT Eyes: Present: PERRL, EOM intact ENT: hearing intact, clear oral mucosa, dentition normal - Neck Neck: Present: supple, normal ROM - Respiratory Respiratory effort: normal Respiratory: bilateral: CTA - Cardiovascular Rhythm: regular Heart Sounds: Present: S1 & S2. Absent: gallop, rub - Extremities Extremities: no ischemia, No edema, Full ROM - Abdominal General gastrointestinal: soft, non-tender, non-distended, normal bowel sounds - Integumentary Integumentary: Present: clear, warm, dry - Neurologic Neurologic: CNII-XII intact, moves all extremities BREEZY score - Breezy Score Age > 65: (1) Yes Aspirin use within the Past 7 Days: (1) Yes 3 or more CAD Risk Factors: (1) Yes 2 or more Angina events in past 24 hrs: (1) Yes Known CAD with more than 50% Stenosis: (0) No Elevated Cardiac Markers: (0) No ST Deviation Greater than 0.5mm: (0) No BREEZY Score: 4 Results - Labs CBC & Chem 7: 02/04/20 04:50 02/04/20 04:50 Labs: Laboratory Last Values WBC 18.3 K/mm3 (4.5-11.0) H 02/04/20 04:50 RBC 2.31 M/mm3 (3.65-5.03) L 02/04/20 04:50 Hgb 6.9 gm/dl (10.1-14.3) L 02/04/20 04:50 Hct 22.0 % (30.3-42.9) L 02/04/20 04:50 MCV 95 fl (79-97) 02/04/20 04:50 MCH 30 pg (28-32) 02/04/20 04:50 MCHC 31 % (30-34) 02/04/20 04:50 RDW 18.2 % (13.2-15.2) H 02/04/20 04:50 Plt Count 313 K/mm3 (140-440) 02/04/20 04:50 Lymph % (Auto) Animal Nursery Worker 02/03/20 03:59 [place] % (Auto) Animal Nursery Worker 02/03/20 03:59 Eos % (Auto) Animal Nursery Worker 02/03/20 03:59 Baso % (Auto) Animal Nursery Worker 02/03/20 03:59 Lymph # Animal Nursery Worker 02/03/20 03:59 [place] # Animal Nursery Worker 02/03/20 03:59 Eos # Animal Nursery Worker 02/03/20 03:59 Baso # Animal Nursery Worker 02/03/20 03:59 Add Manual Diff Complete 02/04/20 04:50 Total Counted 100 02/04/20 04:50 Seg Neutrophils % Animal Nursery Worker 02/04/20 04:50 Seg Neuts % (Manual) 85.0 % (40.0-70.0) H 02/04/20 04:50 Band Neutrophils % 4.0 % 02/04/20 04:50 Lymphocytes % (Manual) 4.0 % (13.4-35.0) L 02/04/20 04:50 Reactive Lymphs % (Man) 1.0 % 02/04/20 04:50 Monocytes % (Manual) 3.0 % (0.0-7.3) 02/04/20 04:50 Eosinophils % (Manual) 2.0 % (0.0-4.3) 02/04/20 04:50 Basophils % (Manual) 0 % (0.0-1.8) 02/04/20 04:50 Metamyelocytes % 0 % 02/04/20 04:50 Myelocytes % 1.0 % 02/04/20 04:50 Promyelocytes % 0 % 02/04/20 04:50 Blast Cells % 0 % 02/04/20 04:50 Nucleated RBC % 1.0 % (0.0-0.9) H 02/04/20 04:50 Seg Neutrophils # Animal Nursery Worker 02/03/20 03:59 Seg Neutrophils # Man 15.6 K/mm3 (1.8-7.7) H 02/04/20 04:50 Band Neutrophils # 0.7 K/mm3 02/04/20 04:50 Lymphocytes # (Manual) 0.7 K/mm3 (1.2-5.4) L 02/04/20 04:50 Abs React Lymphs (Man) 0.2 K/mm3 02/04/20 04:50 Monocytes # (Manual) 0.5 K/mm3 (0.0-0.8) 02/04/20 04:50 Eosinophils # (Manual) 0.4 K/mm3 (0.0-0.4) 02/04/20 04:50 Basophils # (Manual) 0.0 K/mm3 (0.0-0.1) 02/04/20 04:50 Metamyelocytes # 0.0 K/mm3 02/04/20 04:50 Myelocytes # 0.2 K/mm3 02/04/20 04:50 Promyelocytes # 0.0 K/mm3 02/04/20 04:50 Blast Cells # 0.0 K/mm3 02/04/20 04:50 WBC Morphology Not Reportable 02/04/20 04:50 Hypersegmented Neuts Not Reportable 02/04/20 04:50 Hyposegmented Neuts Not Reportable 02/04/20 04:50 Hypogranular Neuts Not Reportable 02/04/20 04:50 Smudge Cells Not Reportable 02/04/20 04:50 Toxic Granulation Not Reportable 02/04/20 04:50 Toxic Vacuolation Not Reportable 02/04/20 04:50 Dohle Bodies Not Reportable 02/04/20 04:50 Pelger-Huet Anomaly Not Reportable 02/04/20 04:50 Armando Rods Not Reportable 02/04/20 04:50 Platelet Estimate Consistent w auto 02/04/20 04:50 Clumped Platelets Not Reportable 02/04/20 04:50 Plt Clumps, EDTA Not Reportable 02/04/20 04:50 Large Platelets Not Reportable 02/04/20 04:50 Giant Platelets Not Reportable 02/04/20 04:50 Platelet Satelliting Not Reportable 02/04/20 04:50 Plt Morphology Comment Not Reportable 02/04/20 04:50 RBC Morphology Not Reportable 02/04/20 04:50 Dimorphic RBCs Not Reportable 02/04/20 04:50 Polychromasia Not Reportable 02/04/20 04:50 Hypochromasia 1+ 02/04/20 04:50 Poikilocytosis Not Reportable 02/04/20 04:50 Anisocytosis 1+ 02/04/20 04:50 Microcytosis Not Reportable 02/04/20 04:50 Macrocytosis Few 02/04/20 04:50 Spherocytes Not Reportable 02/04/20 04:50 Pappenheimer Bodies Not Reportable 02/04/20 04:50 Sickle Cells Not Reportable 02/04/20 04:50 Target Cells Not Reportable 02/04/20 04:50 Tear Drop Cells Not Reportable 02/04/20 04:50 Ovalocytes Not Reportable 02/04/20 04:50 Helmet Cells Not Reportable 02/04/20 04:50 [place] Bodies Not Reportable 02/04/20 04:50 [place] Rings Not Reportable 02/04/20 04:50 [place] Cells Not Reportable 02/04/20 04:50 Bite Cells Not Reportable 02/04/20 04:50 Crenated Cell Not Reportable 02/04/20 04:50 Elliptocytes Not Reportable 02/04/20 04:50 Acanthocytes (Spur) Not Reportable 02/04/20 04:50 Rouleaux Not Reportable 02/04/20 04:50 Hemoglobin C Crystals Not Reportable 02/04/20 04:50 Schistocytes Not Reportable 02/04/20 04:50 Malaria parasites Not Reportable 02/04/20 04:50 Ney Bodies Not Reportable 02/04/20 04:50 Hem Pathologist Commnt No 02/04/20 04:50 PT 15.6 Sec. (12.2-14.9) H 01/09/20 12:55 INR 1.22 (0.87-1.13) H 01/09/20 12:55 APTT 31.5 Sec. (24.2-36.6) 01/09/20 12:55 D-Dimer 2379 ng/mlDDU (0-234) H 01/28/20 04:34 Heparin Anti-Xa Level 0.77 U.I./ml (0.3-0.7) H 02/02/20 05:44 ABG pH 7.317 pH Units (7.350-7.450) L 02/04/20 05:30 ABG pCO2 54.8 mm Hg 02/04/20 05:30 ABG pO2 77.7 mm Hg (80.0-90.0) L 02/04/20 05:30 ABG HCO3 27.4 mmol/L (20.0-26.0) H 02/04/20 05:30 ABG O2 Saturation 96.8 % (95.0-99.0) 02/04/20 05:30 ABG O2 Content 10.7 (0.0-44) 02/04/20 05:30 ABG Base Excess 0.9 mmol/L (-2.0-3.0) 02/04/20 05:30 ABG Hemoglobin 8.0 gm/dl (12.0-16.0) L 02/04/20 05:30 ABG Carboxyhemoglobin 1.8 % (0.0-5.0) 02/04/20 05:30 ABG Methemoglobin 0.5 % (0.0-1.5) 02/04/20 05:30 Oxyhemoglobin 94.5 % (95.0-99.0) L 02/04/20 05:30 FiO2 50 % 02/04/20 05:30 Sodium 135 mmol/L (137-145) L 02/04/20 04:50 Potassium 3.7 mmol/L (3.6-5.0) 02/04/20 04:50 Chloride 96.3 mmol/L (98-107) L 02/04/20 04:50 Carbon Dioxide 21 mmol/L (22-30) L 02/04/20 04:50 Anion Gap 21 mmol/L 02/04/20 04:50 BUN 63 mg/dL (7-17) H 02/04/20 04:50 Creatinine 4.1 mg/dL (0.7-1.2) H D 02/04/20 04:50 Estimated GFR 13 ml/min 02/04/20 04:50 BUN/Creatinine Ratio 15 % 02/04/20 04:50 Glucose 156 mg/dL (65-100) H 02/04/20 04:50 POC Glucose 202 (70-105) H 02/04/20 05:40 Hemoglobin A1c 5.0 % (4-6) 01/10/20 06:54 Calcium 8.2 mg/dL (8.4-10.2) L 02/04/20 04:50 Phosphorus 3.30 mg/dL (2.5-4.5) 01/12/20 16:01 Magnesium 2.00 mg/dL (1.7-2.3) 01/13/20 06:11 Ferritin > 2000.0 ng/mL (13.0-400.0) H 01/28/20 04:34 Total Bilirubin 0.50 mg/dL (0.1-1.2) 02/02/20 05:44 Direct Bilirubin 0.3 mg/dL (0-0.2) H 02/02/20 05:44 Indirect Bilirubin 0.2 mg/dL 02/02/20 05:44 AST 179 units/L (5-40) H 02/02/20 05:44 ALT 106 units/L (7-56) H 02/02/20 05:44 Alkaline Phosphatase 557 units/L (35-129) H 02/02/20 05:44 Lactate Dehydrogenase 434 units/L (91-180) H 01/28/20 04:34 Troponin T 0.315 ng/mL (0.00-0.029) H* 01/10/20 06:54 C-Reactive Protein 9.70 mg/dL (0.00-1.30) H 01/28/20 04:34 NT-Pro-B Natriuret Pep 80709 pg/mL (0-900) H 01/09/20 12:55 Total Protein 6.1 g/dL (6.3-8.2) L 02/02/20 05:44 Albumin 2.3 g/dL (3.9-5) L 02/02/20 05:44 Albumin/Globulin Ratio 0.6 % 02/02/20 05:44 Triglycerides 56 mg/dL (2-149) 01/30/20 04:04 Cholesterol 123 mg/dL (50-199) 01/09/20 12:55 LDL Cholesterol Direct 66 mg/dL (50-130) 01/09/20 12:55 HDL Cholesterol 47 mg/dL (40-59) 01/09/20 12:55 Cholesterol/HDL Ratio 2.61 % 01/09/20 12:55 Hepatitis A IgM Ab Non-reactive (NonReactive) 01/21/20 23:40 Hep Bs Antigen Non-reactive (Negative) 01/21/20 23:40 Hep B Core IgM Ab Non-reactive (NonReactive) 01/21/20 23:40 Hepatitis C Antibody Non-reactive (NonReactive) 01/21/20 23:40 Miscellaneous Test See scanned result 01/11/20 Unknown Miscellaneous Test See scanned result 01/11/20 Unknown Pleitez/IV: Voiding Method Toilet IV Catheter Type [Left Chest] Infusaport IV Catheter Type [Right Peripheral IV External Jugular] IV Catheter Type [Left INT / Saline Lock External Jugular] IV Catheter Type [Left Upper IVAD / Port arm] Active Medications - Current Medications Current Medications: Generic Name Dose Route Start Last Admin Trade Name Freq PRN Reason Stop Dose Admin Acetaminophen 650 mg 01/09/20 16:33 01/27/20 12:26 Tylenol PO 650 mg Q4H PRN Administration Pain MILD(1-3)/Fever >100.5/MEANS Lipase/Protease/Amylase 1 each 01/23/20 14:[address] 10,500 Unit FEEDTUBE PRN PRN For Clogged Feeding Tube Atorvastatin Calcium 40 mg 01/09/20 22:00 02/03/20 21:21 Lipitor PO 40 mg QHS PHILLY Administration Dextrose 50 ml 01/23/20 07:26 02/02/20 11:33 D50w (25gm) Syringe IV 50 ml Q30MIN PRN Administration BLOOD GLUCOSE < 70 Dextrose 25 ml 01/24/20 08:58 01/24/20 13:41 D50w (25gm) Syringe IV 25 ml Q4H PRN Administration BG < 80 MG/DL Docusate Sodium 100 mg 01/25/20 22:00 02/03/20 21:21 Colace PO 100 mg BID PHILLY Administration Enoxaparin Sodium 80 mg 01/23/20 12:00 02/03/20 10:23 Enoxaparin SUB-Q 80 mg Q24HR PHILLY Administration Famotidine 20 mg 01/09/20 22:00 02/03/20 10:22 Pepcid PO 20 mg DAILY PHILLY Administration Norepinephrine 4 mg in 250 mls @ 7.5 mls/hr 01/21/20 18:00 02/04/20 09:50 Levophed Drip 4 Mg/Ns 250 Ml IV 2 mcg/min TITR PHILLY 7.5 mls/hr Titration Protocol 2 MCG/MIN Propofol 1,000 mg in 100 mls @ 2.265 mls/hr 01/22/20 09:00 01/30/20 14:25 Diprivan 10 Mg/Ml IV 0 mcg/kg/min TITR PHILLY 0 mls/hr Titration Protocol 5 MCG/KG/MIN Sodium Chloride 100 mls @ 999 mls/hr 02/01/20 09:47 Nacl 0.9% IV SILVERIO PRN Hypotension Sodium Chloride 500 mls @ 0 mls/hr 02/04/20 09:08 Nacl 0.9% 500 Ml IV 02/04/20 13:00 ONCE NR As Directed Lorazepam 2 mg 01/23/20 15:36 Ativan IV Q10MIN PRN Agitation Ondansetron HCl 4 mg 01/09/20 16:33 01/20/20 10:19 Zofran IV 4 mg Q8H PRN Administration Nausea And Vomiting Simple Syrup 15 ml 01/23/20 14:28 Simple Syrup FEEDTUBE PRN PRN Hypoglycemia Simple Syrup 30 ml 01/23/20 14:28 Simple Syrup FEEDTUBE PRN PRN Hypoglycemia Sodium Bicarbonate 325 mg 01/23/20 14:28 Sodium Bicarbonate FEEDTUBE PRN PRN For Clogged Feeding Tube Sodium Chloride 10 ml 01/09/20 22:00 02/03/20 21:21 Sodium Chloride Flush Syringe 10 Ml IV 10 ml BID PHILLY Administration Sodium Chloride 10 ml 01/09/20 16:33 Sodium Chloride Flush Syringe 10 Ml IV PRN PRN LINE FLUSH Valsartan 80 mg 01/10/20 10:00 02/03/20 10:22 Diovan PO 80 mg DAILY PHILLY Administration Nutrition/Malnutrition Assess - Dietary Evaluation Nutrition/Malnutrition Findings: Nutrition Notes Start: 01/17/20 13:49 Freq: Status: Active Protocol: Document 02/01/20 11:59 LM (Rec: 02/01/20 12:00 LM [id number]) Nutrition Notes Initial or Follow up Brief Note Subjective/Other Information Pt receiving HD. Nutrition Intervention Follow-Up By: 02/04/20 Additional Comments F/U for TF tolerance
[2020-02-04] MEDS: ENOXAPARIN 80 MG/0.8 ML INJ SUB-Q SCH (09:57)
[2020-02-04] MEDS: DOCUSATE SODIUM 100 MG/10 ML ORAL LIQD PO SCH ×2 (09:57→21:15)
[2020-02-04] MEDS: FAMOTIDINE 20 MG TAB PO SCH (09:58)
--- NOTE | 2020-02-04 11:25 | Progress Note ---
Assessment and Plan - Patient Problems (1) End stage renal disease on dialysis Current Visit: No Status: Chronic Plan to address problem: continue HD on MWF schedule. vasopressor support during HD prn to maintain MAP > 65mmhg (2) Pneumonia due to COVID-19 virus Current Visit: Yes Status: Acute Plan to address problem: continue treatment per infectious disease. (3) Acute respiratory failure with hypoxia Current Visit: No Status: Acute Plan to address problem: ventilator management by pulmonary/cable puller (4) Volume overload Current Visit: Yes Status: Acute Qualifiers: Plan to address problem: Fluid status improved with HD (5) Hyponatremia Current Visit: No Status: Acute Plan to address problem: improving with optimizing volume status with HD. 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 (8) Anemia in CKD (chronic kidney disease) Current Visit: Yes Status: Acute Qualifiers: Chronic kidney disease stage: on chronic dialysis Qualified Code(s): N18.6 - End stage renal disease; D63.1 - Anemia in chronic kidney disease; Z99.2 - Dependence on renal dialysis Plan to address problem: CLARITA therapy with HD. (9) Secondary hyperparathyroidism (of renal origin) Current Visit: Yes Status: Chronic Plan to address problem: Continue on current outpatient phos binder regimen. Subjective Date of service: 02/04/20 Principal diagnosis: Pneumonia Interval history: pt intubated, sedate, undergoing HD this AM without acute issues Objective - Vital Signs Vital signs: Vital Signs - 12hr 02/03/20 02/03/20 02/04/20 23:30 23:45 00:00 Temperature Pulse Rate 102 H 101 H 98 H Pulse Rate [ From Monitor] Respiratory 24 22 24 Rate Blood Pressure 117/54 108/49 116/44 O2 Sat by Pulse 97 95 100 Oximetry O2 Sat by Pulse Oximetry [ Posterior Bilateral Throughout] 02/04/20 02/04/20 02/04/20 00:15 00:30 00:46 Temperature Pulse Rate 99 H 99 H 95 H Pulse Rate [ From Monitor] Respiratory 15 23 18 Rate Blood Pressure 105/48 102/47 102/44 O2 Sat by Pulse 97 96 96 Oximetry O2 Sat by Pulse Oximetry [ Posterior Bilateral Throughout] 02/04/20 02/04/20 02/04/20 01:00 01:15 01:30 Temperature Pulse Rate 97 H 99 H 99 H Pulse Rate [ From Monitor] Respiratory 20 20 20 Rate Blood Pressure 106/52 97/47 107/50 O2 Sat by Pulse 95 95 95 Oximetry O2 Sat by Pulse Oximetry [ Posterior Bilateral Throughout] 02/04/20 02/04/20 02/04/20 01:46 02:00 02:15 Temperature Pulse Rate 102 H 97 H 96 H Pulse Rate [ From Monitor] Respiratory 20 24 21 Rate Blood Pressure 109/42 101/44 99/45 O2 Sat by Pulse 95 97 98 Oximetry O2 Sat by Pulse Oximetry [ Posterior Bilateral Throughout] 02/04/20 02/04/20 02/04/20 02:30 02:46 03:00 Temperature Pulse Rate 99 H 102 H 98 H Pulse Rate [ From Monitor] Respiratory 21 20 24 Rate Blood Pressure 108/50 97/49 95/48 O2 Sat by Pulse 95 95 95 Oximetry O2 Sat by Pulse Oximetry [ Posterior Bilateral Throughout] 02/04/20 02/04/20 02/04/20 03:15 03:30 03:46 Temperature Pulse Rate 102 H 99 H 98 H Pulse Rate [ From Monitor] Respiratory 25 H 19 21 Rate Blood Pressure 99/48 99/46 105/43 O2 Sat by Pulse 97 95 96 Oximetry O2 Sat by Pulse Oximetry [ Posterior Bilateral Throughout] 02/04/20 02/04/20 02/04/20 04:00 04:16 04:30 Temperature Pulse Rate 97 H 96 H 94 H Pulse Rate [ From Monitor] Respiratory 25 H 22 21 Rate Blood Pressure 103/47 104/43 85/41 O2 Sat by Pulse 96 95 97 Oximetry O2 Sat by Pulse Oximetry [ Posterior Bilateral Throughout] 02/04/20 02/04/20 02/04/20 04:44 04:45 04:48 Temperature Pulse Rate 96 H 97 H 96 H Pulse Rate [ From Monitor] Respiratory 25 H Rate Blood Pressure 93/45 108/52 O2 Sat by Pulse 97 97 Oximetry O2 Sat by Pulse Oximetry [ Posterior Bilateral Throughout] 02/04/20 02/04/20 02/04/20 04:49 05:00 05:15 Temperature Pulse Rate 99 H 100 H 96 H Pulse Rate [ From Monitor] Respiratory 18 21 Rate Blood Pressure 93/45 108/52 100/45 O2 Sat by Pulse 98 97 96 Oximetry O2 Sat by Pulse Oximetry [ Posterior Bilateral Throughout] 02/04/20 02/04/20 02/04/20 05:30 05:45 06:00 Temperature Pulse Rate 96 H 96 H 101 H Pulse Rate [ From Monitor] Respiratory 21 25 H 23 Rate Blood Pressure 103/48 98/43 106/49 O2 Sat by Pulse 96 98 96 Oximetry O2 Sat by Pulse Oximetry [ Posterior Bilateral Throughout] 02/04/20 02/04/20 02/04/20 06:15 06:30 06:45 Temperature Pulse Rate 96 H 95 H 98 H Pulse Rate [ From Monitor] Respiratory 20 25 H 16 Rate Blood Pressure 96/43 90/39 102/45 O2 Sat by Pulse 96 96 96 Oximetry O2 Sat by Pulse Oximetry [ Posterior Bilateral Throughout] 02/04/20 02/04/20 02/04/20 07:00 07:16 07:30 Temperature Pulse Rate 93 H 91 H 99 H Pulse Rate [ From Monitor] Respiratory 21 23 22 Rate Blood Pressure 99/46 95/38 103/52 O2 Sat by Pulse 97 97 96 Oximetry O2 Sat by Pulse Oximetry [ Posterior Bilateral Throughout] 02/04/20 02/04/20 02/04/20 07:45 08:00 08:16 Temperature Pulse Rate 94 H 95 H 95 H Pulse Rate [ 89 From Monitor] Respiratory 22 22 22 Rate Blood Pressure 96/47 106/51 86/38 O2 Sat by Pulse 98 99 100 Oximetry O2 Sat by Pulse Oximetry [ Posterior Bilateral Throughout] 02/04/20 02/04/20 02/04/20 08:30 08:45 09:00 Temperature Pulse Rate 98 H 95 H 102 H Pulse Rate [ From Monitor] Respiratory 23 23 17 Rate Blood Pressure 109/52 109/49 113/55 O2 Sat by Pulse 97 97 99 Oximetry O2 Sat by Pulse Oximetry [ Posterior Bilateral Throughout] 02/04/20 02/04/20 02/04/20 09:15 09:30 09:45 Temperature 100.2 F H Pulse Rate 96 H 94 H 94 H Pulse Rate [ From Monitor] Respiratory 22 22 20 Rate Blood Pressure 106/51 107/53 107/53 O2 Sat by Pulse 97 97 96 Oximetry O2 Sat by Pulse 99 Oximetry [ Posterior Bilateral Throughout] 02/04/20 02/04/20 02/04/20 09:50 09:52 10:00 Temperature Pulse Rate 94 H 96 H 96 H Pulse Rate [ From Monitor] Respiratory 17 Rate Blood Pressure 115/50 90/51 122/52 O2 Sat by Pulse 97 Oximetry O2 Sat by Pulse Oximetry [ Posterior Bilateral Throughout] 02/04/20 02/04/20 02/04/20 10:15 10:30 10:45 Temperature Pulse Rate 99 H 99 H 99 H Pulse Rate [ From Monitor] Respiratory 19 18 20 Rate Blood Pressure 130/61 128/61 135/63 O2 Sat by Pulse 98 97 98 Oximetry O2 Sat by Pulse Oximetry [ Posterior Bilateral Throughout] 02/04/20 11:00 Temperature Pulse Rate 101 H Pulse Rate [ From Monitor] Respiratory 14 Rate Blood Pressure 122/63 O2 Sat by Pulse 97 Oximetry O2 Sat by Pulse Oximetry [ Posterior Bilateral Throughout] - General Appearance General appearance: well-developed, sedated on ventilator, intubated EENT: ATNC, mucous membranes moist Neck: no JVD Respiratory: Present: Decreased Breath Sounds Cardiology: regular, S1S2 Gastrointestinal: normoactive bowel sounds Integumentary: no rash, other (+ edema ) Neurologic: other (intubated, sedated ) - Lab 02/04/20 04:50 02/04/20 04:50 Most recent lab results ABG pH 7.317 pH Units (7.350-7.450) L 02/04/20 05:30 ABG pCO2 54.8 mm Hg 02/04/20 05:30 ABG pO2 77.7 mm Hg (80.0-90.0) L 02/04/20 05:30 ABG HCO3 27.4 mmol/L (20.0-26.0) H 02/04/20 05:30 ABG O2 Saturation 96.8 % (95.0-99.0) 02/04/20 05:30 Calcium 8.2 mg/dL (8.4-10.2) L 02/04/20 04:50 Phosphorus 3.30 mg/dL (2.5-4.5) 01/12/20 16:01 Magnesium 2.00 mg/dL (1.7-2.3) 01/13/20 06:11 Medications & Allergies - Medications Allergies/Adverse Reactions: Allergies cheese Allergy (Mild, Verified 12/20/19 10:19) Itching iodine Allergy (Mild, Verified 12/20/19 10:16) Anaphylaxis clonidine Allergy (Verified 12/19/19 04:13) Anaphylaxis shellfish derived Adverse Reaction (Verified 12/19/19 04:13) Angioedema Home Medications: Home Medications Medication Instructions Recorded Confirmed Last Taken Type Atorvastatin [Lipitor] 40 mg PO DAILY 11/06/19 01/13/20 01/02/20 10:00 History Acetaminophen [Acetaminophen 8 650 mg PO Q8H PRN #30 tablet.er 11/21/19 01/13/20 01/03/20 22:00 Rx Hour] Cyclobenzaprine HCl [Flexeril 5 MG 5 mg PO QHS PRN #20 tab 11/21/19 01/13/20 01/01/20 22:00 Rx TAB] HYDROcodone/APAP 5-325 [[place] 1 each PO Q6HR PRN #18 tablet 12/13/19 01/13/20 01/01/20 22:00 Rx 5-325 mg TAB] amLODIPine 10 mg PO DAILY 90 Days #90 tab 12/18/19 01/13/20 01/01/20 10:00 Rx Ibuprofen 800 mg PO TID 12/19/19 01/13/20 01/02/20 22:00 History Magnesium Oxide [Mag-Ox] 400 mg PO QDAY 12/19/19 01/13/20 01/03/20 10:00 History diphenhydrAMINE [Benadryl CAP] 25 mg PO Q8HR PRN 12/19/19 01/13/20 01/03/20 21:00 History labetaloL [Labetalol 100mg TAB] 100 mg PO Q8H #90 tablet 12/21/19 01/13/20 01/02/20 10:00 Rx traMADoL [Ultram 50 MG tab] 50 mg PO Q6HR PRN #20 tablet 12/29/19 01/13/20 12/31/19 10:00 Rx DULoxetine [Cymbalta] 30 mg PO QDAY #30 capsule 01/04/20 01/13/20 Unknown Rx Valsartan [Diovan] 80 mg PO DAILY #30 tablet 01/04/20 01/13/20 Unknown Rx Active Medications: Generic Name Dose Route Start Last Admin Trade Name Freq PRN Reason Stop Dose Admin Acetaminophen 650 mg 01/09/20 16:33 01/27/20 12:26 Tylenol PO 650 mg Q4H PRN Administration Pain MILD(1-3)/Fever >100.5/MEANS Lipase/Protease/Amylase 1 each 01/23/20 14:[address] 10,500 Unit FEEDTUBE PRN PRN For Clogged Feeding Tube Atorvastatin Calcium 40 mg 01/09/20 22:00 02/03/20 21:21 Lipitor PO 40 mg QHS PHILLY Administration Dextrose 50 ml 01/23/20 07:26 02/02/20 11:33 D50w (25gm) Syringe IV 50 ml Q30MIN PRN Administration BLOOD GLUCOSE < 70 Dextrose 25 ml 01/24/20 08:58 01/24/20 13:41 D50w (25gm) Syringe IV 25 ml Q4H PRN Administration BG < 80 MG/DL Docusate Sodium 100 mg 01/25/20 22:00 02/04/20 09:57 Colace PO 100 mg BID PHILLY Administration Enoxaparin Sodium 80 mg 01/23/20 12:00 02/04/20 09:57 Enoxaparin SUB-Q 80 mg Q24HR PHILLY Administration Famotidine 20 mg 01/09/20 22:00 02/04/20 09:58 Pepcid PO 20 mg DAILY PHILLY Administration Norepinephrine 4 mg in 250 mls @ 7.5 mls/hr 01/21/20 18:00 02/04/20 09:50 Levophed Drip 4 Mg/Ns 250 Ml IV 2 mcg/min TITR PHILLY 7.5 mls/hr Titration Protocol 2 MCG/MIN Propofol 1,000 mg in 100 mls @ 2.265 mls/hr 01/22/20 09:00 01/30/20 14:25 Diprivan 10 Mg/Ml IV 0 mcg/kg/min TITR PHILLY 0 mls/hr Titration Protocol 5 MCG/KG/MIN Sodium Chloride 100 mls @ 999 mls/hr 02/01/20 09:47 Nacl 0.9% IV SILVERIO PRN Hypotension Sodium Chloride 500 mls @ 0 mls/hr 02/04/20 09:08 Nacl 0.9% 500 Ml IV 02/04/20 13:00 ONCE NR As Directed Lorazepam 2 mg 01/23/20 15:36 Ativan IV Q10MIN PRN Agitation Ondansetron HCl 4 mg 01/09/20 16:33 01/20/20 10:19 Zofran IV 4 mg Q8H PRN Administration Nausea And Vomiting Simple Syrup 15 ml 01/23/20 14:28 Simple Syrup FEEDTUBE PRN PRN Hypoglycemia Simple Syrup 30 ml 01/23/20 14:28 Simple Syrup FEEDTUBE PRN PRN Hypoglycemia Sodium Bicarbonate 325 mg 01/23/20 14:28 Sodium Bicarbonate FEEDTUBE PRN PRN For Clogged Feeding Tube Sodium Chloride 10 ml 01/09/20 22:00 02/04/20 09:58 Sodium Chloride Flush Syringe 10 Ml IV 10 ml BID PHILLY Administration Sodium Chloride 10 ml 01/09/20 16:33 Sodium Chloride Flush Syringe 10 Ml IV PRN PRN LINE FLUSH Valsartan 80 mg 01/10/20 10:00 02/04/20 09:52 Diovan PO Not Given DAILY PHILLY
[2020-02-04] MEDS ORDERED: EPOETIN ALFA 20,000 UNIT/1 ML INJ SUB-Q SCH (12:00)
--- NOTE | 2020-02-04 12:12 | Progress Note ---
Assessment and Plan 64 y/o female with COVID positive, viral pneumonia with some pulmonary vascular congestion superimposed. 1. Continue PSV trials. Asked RT to attempt to drop PEEP to 6. They have not been able to do this. 2. HD per renal today. UF is definitely helping as changes can be seen in CXR. Will given blood during HD. 3. Changed back to prophylactic dosing for VTE as not confirmed the presence of VTE 4. Overall prognosis is guarded to poor, especially with prior history of ESRD on HD. Continue supportive care. IMS spoke with who has made patient a DNR. I have signed. Hopeful she can pull through but do agree with DNR status given evidence of increased mortality throughout [place] from this novel [place] virus. Spoke with IMS again as they will speak with today. Hopeful he will continue as she has made improvements. Please continue daily PSV's, hoping her mental state will improve and she will clear the sedation and be extubated. Otherwise consider trach and peg and follow up from there. Will speak with CM about this. CCT 31 minutes. Subjective Date of service: 02/04/20 Principal diagnosis: Pneumonia Interval history: No acute events. HgB is 6.9 today. BP stable. Getting HD this morning. Objective Vital Signs - 12hr 02/04/20 02/04/20 02/04/20 00:15 00:30 00:46 Temperature Pulse Rate 99 H 99 H 95 H Pulse Rate [ From Monitor] Respiratory 15 23 18 Rate Blood Pressure 105/48 102/47 102/44 O2 Sat by Pulse 97 96 96 Oximetry O2 Sat by Pulse Oximetry [ Posterior Bilateral Throughout] 02/04/20 02/04/20 02/04/20 01:00 01:15 01:30 Temperature Pulse Rate 97 H 99 H 99 H Pulse Rate [ From Monitor] Respiratory 20 20 20 Rate Blood Pressure 106/52 97/47 107/50 O2 Sat by Pulse 95 95 95 Oximetry O2 Sat by Pulse Oximetry [ Posterior Bilateral Throughout] 02/04/20 02/04/20 02/04/20 01:46 02:00 02:15 Temperature Pulse Rate 102 H 97 H 96 H Pulse Rate [ From Monitor] Respiratory 20 24 21 Rate Blood Pressure 109/42 101/44 99/45 O2 Sat by Pulse 95 97 98 Oximetry O2 Sat by Pulse Oximetry [ Posterior Bilateral Throughout] 02/04/20 02/04/2020 02:30 02:46 03:00 Temperature Pulse Rate 99 H 102 H 98 H Pulse Rate [ From Monitor] Respiratory 21 20 24 Rate Blood Pressure 108/50 97/49 95/48 O2 Sat by Pulse 95 95 95 Oximetry O2 Sat by Pulse Oximetry [ Posterior Bilateral Throughout] 02/04/20 02/04/20 02/04/20 03:15 03:30 03:46 Temperature Pulse Rate 102 H 99 H 98 H Pulse Rate [ From Monitor] Respiratory 25 H 19 21 Rate Blood Pressure 99/48 99/46 105/43 O2 Sat by Pulse 97 95 96 Oximetry O2 Sat by Pulse Oximetry [ Posterior Bilateral Throughout] 02/04/20 02/04/20 02/04/20 04:00 04:16 04:30 Temperature Pulse Rate 97 H 96 H 94 H Pulse Rate [ From Monitor] Respiratory 25 H 22 21 Rate Blood Pressure 103/47 104/43 85/41 O2 Sat by Pulse 96 95 97 Oximetry O2 Sat by Pulse Oximetry [ Posterior Bilateral Throughout] 02/04/20 02/04/20 02/04/20 04:44 04:45 04:48 Temperature Pulse Rate 96 H 97 H 96 H Pulse Rate [ From Monitor] Respiratory 25 H Rate Blood Pressure 93/45 108/52 O2 Sat by Pulse 97 97 Oximetry O2 Sat by Pulse Oximetry [ Posterior Bilateral Throughout] 02/04/20 02/04/20 02/04/20 04:49 05:00 05:15 Temperature Pulse Rate 99 H 100 H 96 H Pulse Rate [ From Monitor] Respiratory 18 21 Rate Blood Pressure 93/45 108/52 100/45 O2 Sat by Pulse 98 97 96 Oximetry O2 Sat by Pulse Oximetry [ Posterior Bilateral Throughout] 02/04/20 02/04/20 02/04/20 05:30 05:45 06:00 Temperature Pulse Rate 96 H 96 H 101 H Pulse Rate [ From Monitor] Respiratory 21 25 H 23 Rate Blood Pressure 103/48 98/43 106/49 O2 Sat by Pulse 96 98 96 Oximetry O2 Sat by Pulse Oximetry [ Posterior Bilateral Throughout] 02/04/20 02/04/20 02/04/20 06:15 06:30 06:45 Temperature Pulse Rate 96 H 95 H 98 H Pulse Rate [ From Monitor] Respiratory 20 25 H 16 Rate Blood Pressure 96/43 90/39 102/45 O2 Sat by Pulse 96 96 96 Oximetry O2 Sat by Pulse Oximetry [ Posterior Bilateral Throughout] 02/04/20 02/04/20 02/04/20 07:00 07:16 07:30 Temperature Pulse Rate 93 H 91 H 99 H Pulse Rate [ From Monitor] Respiratory 21 23 22 Rate Blood Pressure 99/46 95/38 103/52 O2 Sat by Pulse 97 97 96 Oximetry O2 Sat by Pulse Oximetry [ Posterior Bilateral Throughout] 02/04/20 02/04/20 02/04/20 07:45 08:00 08:16 Temperature Pulse Rate 94 H 95 H 95 H Pulse Rate [ 89 From Monitor] Respiratory 22 22 22 Rate Blood Pressure 96/47 106/51 86/38 O2 Sat by Pulse 98 99 100 Oximetry O2 Sat by Pulse Oximetry [ Posterior Bilateral Throughout] 02/04/20 02/04/20 02/04/20 08:30 08:45 09:00 Temperature Pulse Rate 98 H 95 H 102 H Pulse Rate [ From Monitor] Respiratory 23 23 17 Rate Blood Pressure 109/52 109/49 113/55 O2 Sat by Pulse 97 97 99 Oximetry O2 Sat by Pulse Oximetry [ Posterior Bilateral Throughout] 02/04/20 02/04/20 02/04/20 09:15 09:30 09:45 Temperature 100.2 F H Pulse Rate 96 H 94 H 94 H Pulse Rate [ From Monitor] Respiratory 22 22 20 Rate Blood Pressure 106/51 107/53 107/53 O2 Sat by Pulse 97 97 96 Oximetry O2 Sat by Pulse 99 Oximetry [ Posterior Bilateral Throughout] 02/04/20 02/04/20 02/04/20 09:50 09:52 10:00 Temperature Pulse Rate 94 H 96 H 96 H Pulse Rate [ From Monitor] Respiratory 17 Rate Blood Pressure 115/50 90/51 122/52 O2 Sat by Pulse 97 Oximetry O2 Sat by Pulse Oximetry [ Posterior Bilateral Throughout] 02/04/20 02/04/20 02/04/20 10:15 10:30 10:45 Temperature Pulse Rate 99 H 99 H 99 H Pulse Rate [ From Monitor] Respiratory 19 18 20 Rate Blood Pressure 130/61 128/61 135/63 O2 Sat by Pulse 98 97 98 Oximetry O2 Sat by Pulse Oximetry [ Posterior Bilateral Throughout] 02/04/20 11:00 Temperature Pulse Rate 101 H Pulse Rate [ From Monitor] Respiratory 14 Rate Blood Pressure 122/63 O2 Sat by Pulse 97 Oximetry O2 Sat by Pulse Oximetry [ Posterior Bilateral Throughout] Constitutional: other (orally intubated, not sedated currently on vent. on AC 450 50) Eyes: non-icteric ENT: oropharynx moist Neck: supple Effort: normal Ascultation: Bilateral: rales Cardiovascular: regular rate and rhythm (no mrg) Gastrointestinal: normoactive bowel sounds, soft, non-tender, non-distended Integumentary: normal Extremities: no cyanosis, no edema, pink and warm Neurologic: unable to assess Psychiatric: mood appropriate, affect normal CBC and BMP: 02/04/20 04:50 02/04/20 04:50 ABG, PT/INR, D-dimer: ABG ABG pH 7.317 pH Units (7.350-7.450) L 02/04/20 05:30 ABG pCO2 54.8 mm Hg 02/04/20 05:30 ABG pO2 77.7 mm Hg (80.0-90.0) L 02/04/20 05:30 ABG O2 Saturation 96.8 % (95.0-99.0) 02/04/20 05:30 PT/INR, D-dimer PT 15.6 Sec. (12.2-14.9) H 01/09/20 12:55 INR 1.22 (0.87-1.13) H 01/09/20 12:55 D-Dimer 2379 ng/mlDDU (0-234) H 01/28/20 04:34 Abnormal lab findings: Abnormal Labs 01/09/20 01/09/20 01/09/20 12:55 12:55 12:55 WBC 4.4 L RBC 3.44 L Hgb Hct MCV RDW 17.0 H Plt Count Lymph % (Auto) 6.8 L [place] % (Auto) 13.6 H Lymph # 0.3 L Seg Neutrophils % 79.0 H Seg Neuts % (Manual) Lymphocytes % (Manual) Nucleated RBC % Seg Neutrophils # Man Lymphocytes # (Manual) Monocytes # (Manual) PT 15.6 H INR 1.22 H D-Dimer Heparin Anti-Xa Level ABG pH ABG pO2 ABG HCO3 ABG O2 Saturation ABG Base Excess ABG Hemoglobin Oxyhemoglobin Sodium 130 L Potassium Chloride 88.9 L Carbon Dioxide 20 L BUN 41 H Creatinine 7.6 H Glucose 115 H POC Glucose Calcium Magnesium Ferritin Direct Bilirubin AST ALT Alkaline Phosphatase 153 H Lactate Dehydrogenase Troponin T 0.382 H* C-Reactive Protein NT-Pro-B Natriuret Pep 40438 H Total Protein Albumin 3.2 L Crossmatch 01/09/20 01/10/20 01/10/20 20:14 00:16 06:54 WBC 3.3 L RBC 3.00 L Hgb 9.2 L Hct 27.8 L MCV RDW 17.2 H Plt Count Lymph % (Auto) 8.9 L [place] % (Auto) 11.5 H Lymph # 0.3 L Seg Neutrophils % 79.1 H Seg Neuts % (Manual) Lymphocytes % (Manual) Nucleated RBC % Seg Neutrophils # Man Lymphocytes # (Manual) Monocytes # (Manual) PT INR D-Dimer Heparin Anti-Xa Level ABG pH ABG pO2 ABG HCO3 ABG O2 Saturation ABG Base Excess ABG Hemoglobin Oxyhemoglobin Sodium Potassium Chloride Carbon Dioxide BUN Creatinine Glucose POC Glucose Calcium Magnesium Ferritin Direct Bilirubin AST ALT Alkaline Phosphatase Lactate Dehydrogenase Troponin T 0.349 H* 0.328 H* C-Reactive Protein NT-Pro-B Natriuret Pep Total Protein Albumin Crossmatch 01/10/20 01/10/20 01/11/20 06:54 06:54 16:45 WBC RBC Hgb Hct MCV RDW Plt Count Lymph % (Auto) [place] % (Auto) Lymph # Seg Neutrophils % Seg Neuts % (Manual) Lymphocytes % (Manual) Nucleated RBC % Seg Neutrophils # Man Lymphocytes # (Manual) Monocytes # (Manual) PT INR D-Dimer Heparin Anti-Xa Level ABG pH ABG pO2 ABG HCO3 ABG O2 Saturation ABG Base Excess ABG Hemoglobin Oxyhemoglobin Sodium 133 L Potassium Chloride 90.6 L Carbon Dioxide BUN 50 H Creatinine 8.4 H Glucose 101 H POC Glucose 106 H Calcium 8.1 L Magnesium Ferritin Direct Bilirubin AST ALT Alkaline Phosphatase 148 H Lactate Dehydrogenase Troponin T 0.315 H* C-Reactive Protein NT-Pro-B Natriuret Pep Total Protein 5.4 L Albumin 2.7 L Crossmatch 01/12/20 01/13/20 01/13/20 16:01 06:11 06:11 WBC 3.1 L RBC 3.25 L Hgb 9.8 L Hct MCV RDW 17.2 H Plt Count 136 L Lymph % (Auto) [place] % (Auto) Lymph # Seg Neutrophils % Seg Neuts % (Manual) Lymphocytes % (Manual) Nucleated RBC % Seg Neutrophils # Man Lymphocytes # (Manual) Monocytes # (Manual) PT INR D-Dimer Heparin Anti-Xa Level ABG pH ABG pO2 ABG HCO3 ABG O2 Saturation ABG Base Excess ABG Hemoglobin Oxyhemoglobin Sodium 135 L Potassium Chloride 93.4 L Carbon Dioxide BUN 19 H Creatinine 4.5 H Glucose 120 H POC Glucose Calcium 7.8 L Magnesium 1.40 L Ferritin Direct Bilirubin AST ALT Alkaline Phosphatase Lactate Dehydrogenase Troponin T C-Reactive Protein NT-Pro-B Natriuret Pep Total Protein Albumin Crossmatch 01/16/20 01/16/20 01/16/20 08:35 11:49 14:11 WBC RBC Hgb Hct MCV RDW Plt Count Lymph % (Auto) [place] % (Auto) Lymph # Seg Neutrophils % Seg Neuts % (Manual) Lymphocytes % (Manual) Nucleated RBC % Seg Neutrophils # Man Lymphocytes # (Manual) Monocytes # (Manual) PT INR D-Dimer Heparin Anti-Xa Level ABG pH ABG pO2 48.4 L ABG HCO3 30.5 H ABG O2 Saturation 81.9 L ABG Base Excess 4.6 H ABG Hemoglobin 10.5 L Oxyhemoglobin 80.1 L Sodium Potassium Chloride Carbon Dioxide BUN Creatinine Glucose POC Glucose 126 H 119 H Calcium Magnesium Ferritin Direct Bilirubin AST ALT Alkaline Phosphatase Lactate Dehydrogenase Troponin T C-Reactive Protein NT-Pro-B Natriuret Pep Total Protein Albumin Crossmatch 01/16/20 01/16/20 01/16/20 15:38 15:38 15:38 WBC RBC Hgb Hct MCV RDW Plt Count Lymph % (Auto) [place] % (Auto) Lymph # Seg Neutrophils % Seg Neuts % (Manual) Lymphocytes % (Manual) Nucleated RBC % Seg Neutrophils # Man Lymphocytes # (Manual) Monocytes # (Manual) PT INR D-Dimer 1104.64 H Heparin Anti-Xa Level ABG pH ABG pO2 ABG HCO3 ABG O2 Saturation ABG Base Excess ABG Hemoglobin Oxyhemoglobin Sodium Potassium Chloride Carbon Dioxide BUN Creatinine Glucose POC Glucose Calcium Magnesium Ferritin > 2000.0 H Direct Bilirubin AST ALT Alkaline Phosphatase Lactate Dehydrogenase 690 H Troponin T C-Reactive Protein 24.10 H NT-Pro-B Natriuret Pep Total Protein Albumin Crossmatch 01/16/20 01/18/20 01/18/20 18:11 06:25 06:25 WBC RBC 3.15 L Hgb 9.4 L Hct 29.4 L MCV RDW 17.5 H Plt Count 135 L Lymph % (Auto) 3.8 L [place] % (Auto) Lymph # 0.2 L Seg Neutrophils % 88.8 H Seg Neuts % (Manual) Lymphocytes % (Manual) Nucleated RBC % Seg Neutrophils # Man Lymphocytes # (Manual) Monocytes # (Manual) PT INR D-Dimer Heparin Anti-Xa Level ABG pH ABG pO2 ABG HCO3 ABG O2 Saturation ABG Base Excess ABG Hemoglobin Oxyhemoglobin Sodium Potassium Chloride 96.8 L Carbon Dioxide BUN 26 H Creatinine 4.2 H Glucose 115 H POC Glucose 130 H Calcium 8.2 L Magnesium Ferritin Direct Bilirubin AST ALT Alkaline Phosphatase Lactate Dehydrogenase 537 H Troponin T C-Reactive Protein 17.10 H NT-Pro-B Natriuret Pep Total Protein Albumin Crossmatch 01/18/20 01/18/20 01/18/20 06:25 06:25 12:15 WBC RBC Hgb Hct MCV RDW Plt Count Lymph % (Auto) [place] % (Auto) Lymph # Seg Neutrophils % Seg Neuts % (Manual) Lymphocytes % (Manual) Nucleated RBC % Seg Neutrophils # Man Lymphocytes # (Manual) Monocytes # (Manual) PT INR D-Dimer 938.03 H Heparin Anti-Xa Level ABG pH ABG pO2 66.5 L ABG HCO3 30.1 H ABG O2 Saturation 93.2 L ABG Base Excess 4.6 H ABG Hemoglobin 10.0 L Oxyhemoglobin 91.3 L Sodium Potassium Chloride Carbon Dioxide BUN Creatinine Glucose POC Glucose Calcium Magnesium Ferritin 3105.0 H Direct Bilirubin AST ALT Alkaline Phosphatase Lactate Dehydrogenase Troponin T C-Reactive Protein NT-Pro-B Natriuret Pep Total Protein Albumin Crossmatch 01/20/20 01/20/20 01/20/20 07:37 07:37 07:37 WBC RBC Hgb Hct MCV RDW Plt Count Lymph % (Auto) [place] % (Auto) Lymph # Seg Neutrophils % Seg Neuts % (Manual) Lymphocytes % (Manual) Nucleated RBC % Seg Neutrophils # Man Lymphocytes # (Manual) Monocytes # (Manual) PT INR D-Dimer 2072.25 H Heparin Anti-Xa Level ABG pH ABG pO2 ABG HCO3 ABG O2 Saturation ABG Base Excess ABG Hemoglobin Oxyhemoglobin Sodium Potassium Chloride Carbon Dioxide BUN Creatinine Glucose POC Glucose Calcium Magnesium Ferritin 1826.0 H Direct Bilirubin AST ALT Alkaline Phosphatase Lactate Dehydrogenase 496 H Troponin T C-Reactive Protein 19.30 H NT-Pro-B Natriuret Pep Total Protein Albumin Crossmatch 01/20/20 01/21/20 01/21/20 17:30 03:59 17:35 WBC RBC Hgb Hct MCV RDW Plt Count Lymph % (Auto) [place] % (Auto) Lymph # Seg Neutrophils % Seg Neuts % (Manual) Lymphocytes % (Manual) Nucleated RBC % Seg Neutrophils # Man Lymphocytes # (Manual) Monocytes # (Manual) PT INR D-Dimer Heparin Anti-Xa Level ABG pH ABG pO2 61.1 L 67.4 L ABG HCO3 29.9 H 26.2 H ABG O2 Saturation 91.7 L 93.4 L ABG Base Excess 4.9 H ABG Hemoglobin 9.0 L 9.1 L Oxyhemoglobin 89.5 L 91.1 L Sodium 136 L Potassium Chloride Carbon Dioxide BUN 36 H Creatinine 4.9 H Glucose POC Glucose Calcium Magnesium Ferritin Direct Bilirubin AST ALT Alkaline Phosphatase Lactate Dehydrogenase Troponin T C-Reactive Protein NT-Pro-B Natriuret Pep Total Protein Albumin Crossmatch 01/21/20 01/22/20 01/22/20 Unknown 03:41 03:41 WBC RBC Hgb Hct MCV RDW Plt Count Lymph % (Auto) [place] % (Auto) Lymph # Seg Neutrophils % Seg Neuts % (Manual) Lymphocytes % (Manual) Nucleated RBC % Seg Neutrophils # Man Lymphocytes # (Manual) Monocytes # (Manual) PT INR D-Dimer Heparin Anti-Xa Level ABG pH 7.465 H ABG pO2 48.9 L ABG HCO3 26.6 H ABG O2 Saturation 85.7 L ABG Base Excess ABG Hemoglobin 10.4 L Oxyhemoglobin 83.5 L Sodium Potassium Chloride Carbon Dioxide BUN Creatinine Glucose POC Glucose Calcium Magnesium Ferritin 6071.0 H Direct Bilirubin AST ALT Alkaline Phosphatase Lactate Dehydrogenase 963 H Troponin T C-Reactive Protein 30.00 H NT-Pro-B Natriuret Pep Total Protein Albumin Crossmatch 01/22/20 01/22/20 01/22/20 03:41 07:47 11:20 WBC RBC Hgb Hct MCV RDW Plt Count Lymph % (Auto) [place] % (Auto) Lymph # Seg Neutrophils % Seg Neuts % (Manual) Lymphocytes % (Manual) Nucleated RBC % Seg Neutrophils # Man Lymphocytes # (Manual) Monocytes # (Manual) PT INR D-Dimer > 53081 H Heparin Anti-Xa Level ABG pH ABG pO2 66.7 L ABG HCO3 28.7 H ABG O2 Saturation 91.9 L ABG Base Excess ABG Hemoglobin 9.1 L Oxyhemoglobin 89.5 L Sodium Potassium Chloride 94.3 L Carbon Dioxide BUN 53 H Creatinine 6.5 H Glucose POC Glucose Calcium Magnesium Ferritin Direct Bilirubin AST ALT Alkaline Phosphatase Lactate Dehydrogenase Troponin T C-Reactive Protein NT-Pro-B Natriuret Pep Total Protein Albumin Crossmatch 01/22/20 01/22/20 01/23/20 11:49 Unknown 04:55 WBC 15.1 H RBC 3.05 L Hgb 8.8 L Hct 28.3 L MCV RDW 17.8 H Plt Count 125 L Lymph % (Auto) [place] % (Auto) Lymph # Seg Neutrophils % Seg Neuts % (Manual) Lymphocytes % (Manual) Nucleated RBC % Seg Neutrophils # Man Lymphocytes # (Manual) Monocytes # (Manual) PT INR D-Dimer Heparin Anti-Xa Level ABG pH 7.340 L ABG pO2 77.7 L 136.3 H ABG HCO3 27.6 H 28.8 H ABG O2 Saturation ABG Base Excess ABG Hemoglobin 9.3 L 10.9 L Oxyhemoglobin 94.2 L Sodium Potassium Chloride Carbon Dioxide BUN Creatinine Glucose POC Glucose Calcium Magnesium Ferritin Direct Bilirubin AST ALT Alkaline Phosphatase Lactate Dehydrogenase Troponin T C-Reactive Protein NT-Pro-B Natriuret Pep Total Protein Albumin Crossmatch 01/23/20 01/23/20 01/23/20 06:23 07:07 12:23 WBC RBC Hgb Hct MCV RDW Plt Count Lymph % (Auto) [place] % (Auto) Lymph # Seg Neutrophils % Seg Neuts % (Manual) Lymphocytes % (Manual) Nucleated RBC % Seg Neutrophils # Man Lymphocytes # (Manual) Monocytes # (Manual) PT INR D-Dimer Heparin Anti-Xa Level ABG pH ABG pO2 ABG HCO3 ABG O2 Saturation ABG Base Excess ABG Hemoglobin Oxyhemoglobin Sodium Potassium Chloride Carbon Dioxide BUN Creatinine Glucose POC Glucose 57 L 127 H 131 H Calcium Magnesium Ferritin Direct Bilirubin AST ALT Alkaline Phosphatase Lactate Dehydrogenase Troponin T C-Reactive Protein NT-Pro-B Natriuret Pep Total Protein Albumin Crossmatch 01/23/20 01/23/20 01/24/20 Unknown Unknown 04:00 WBC 16.2 H RBC 3.08 L Hgb 8.9 L Hct 28.6 L MCV RDW 17.8 H Plt Count 139 L Lymph % (Auto) [place] % (Auto) Lymph # Seg Neutrophils % Seg Neuts % (Manual) Lymphocytes % (Manual) Nucleated RBC % Seg Neutrophils # Man Lymphocytes # (Manual) Monocytes # (Manual) PT INR D-Dimer Heparin Anti-Xa Level < 0.10 L ABG pH ABG pO2 ABG HCO3 ABG O2 Saturation ABG Base Excess ABG Hemoglobin Oxyhemoglobin Sodium Potassium Chloride Carbon Dioxide BUN Creatinine Glucose POC Glucose Calcium Magnesium Ferritin 4195.0 H Direct Bilirubin AST ALT Alkaline Phosphatase Lactate Dehydrogenase Troponin T C-Reactive Protein NT-Pro-B Natriuret Pep Total Protein Albumin Crossmatch 01/24/20 01/24/20 01/24/20 04:00 04:00 04:00 WBC RBC Hgb Hct MCV RDW Plt Count Lymph % (Auto) [place] % (Auto) Lymph # Seg Neutrophils % Seg Neuts % (Manual) Lymphocytes % (Manual) Nucleated RBC % Seg Neutrophils # Man Lymphocytes # (Manual) Monocytes # (Manual) PT INR D-Dimer 5783.11 H Heparin Anti-Xa Level ABG pH 7.188 L* ABG pO2 70.8 L ABG HCO3 32.2 H ABG O2 Saturation 90.4 L ABG Base Excess ABG Hemoglobin 8.5 L Oxyhemoglobin 88.1 L Sodium Potassium Chloride Carbon Dioxide BUN Creatinine Glucose POC Glucose Calcium Magnesium Ferritin Direct Bilirubin AST ALT Alkaline Phosphatase Lactate Dehydrogenase 474 H Troponin T C-Reactive Protein 29.80 H NT-Pro-B Natriuret Pep Total Protein Albumin Crossmatch 01/24/20 01/24/20 01/24/20 05:20 05:51 09:14 WBC RBC Hgb Hct MCV RDW Plt Count Lymph % (Auto) [place] % (Auto) Lymph # Seg Neutrophils % Seg Neuts % (Manual) Lymphocytes % (Manual) Nucleated RBC % Seg Neutrophils # Man Lymphocytes # (Manual) Monocytes # (Manual) PT INR D-Dimer Heparin Anti-Xa Level ABG pH 7.214 L ABG pO2 71.7 L ABG HCO3 31.5 H ABG O2 Saturation 91.8 L ABG Base Excess ABG Hemoglobin 9.1 L Oxyhemoglobin 89.3 L Sodium Potassium Chloride Carbon Dioxide BUN Creatinine Glucose POC Glucose 50 L 53 L Calcium Magnesium Ferritin Direct Bilirubin AST ALT Alkaline Phosphatase Lactate Dehydrogenase Troponin T C-Reactive Protein NT-Pro-B Natriuret Pep Total Protein Albumin Crossmatch 01/24/20 01/24/20 01/24/20 15:10 18:04 21:10 WBC RBC Hgb Hct MCV RDW Plt Count Lymph % (Auto) [place] % (Auto) Lymph # Seg Neutrophils % Seg Neuts % (Manual) Lymphocytes % (Manual) Nucleated RBC % Seg Neutrophils # Man Lymphocytes # (Manual) Monocytes # (Manual) PT INR D-Dimer Heparin Anti-Xa Level ABG pH ABG pO2 ABG HCO3 ABG O2 Saturation ABG Base Excess ABG Hemoglobin Oxyhemoglobin Sodium Potassium Chloride Carbon Dioxide BUN Creatinine Glucose POC Glucose 114 H 51 L 144 H Calcium Magnesium Ferritin Direct Bilirubin AST ALT Alkaline Phosphatase Lactate Dehydrogenase Troponin T C-Reactive Protein NT-Pro-B Natriuret Pep Total Protein Albumin Crossmatch 01/24/20 01/25/20 01/25/20 Unknown 00:32 03:50 WBC 13.0 H RBC 3.10 L Hgb 9.2 L Hct 29.0 L MCV RDW 17.7 H Plt Count Lymph % (Auto) [place] % (Auto) Lymph # Seg Neutrophils % Seg Neuts % (Manual) 92.0 H Lymphocytes % (Manual) 5.0 L Nucleated RBC % Seg Neutrophils # Man 12.0 H Lymphocytes # (Manual) 0.7 L Monocytes # (Manual) PT INR D-Dimer Heparin Anti-Xa Level ABG pH 7.291 L ABG pO2 71.3 L ABG HCO3 30.6 H ABG O2 Saturation 93.6 L ABG Base Excess 3.3 H ABG Hemoglobin 8.1 L Oxyhemoglobin 91.2 L Sodium Potassium Chloride Carbon Dioxide BUN Creatinine Glucose POC Glucose 114 H Calcium Magnesium Ferritin Direct Bilirubin AST ALT Alkaline Phosphatase Lactate Dehydrogenase Troponin T C-Reactive Protein NT-Pro-B Natriuret Pep Total Protein Albumin Crossmatch 01/25/20 01/25/20 01/25/20 04:22 06:05 17:28 WBC RBC Hgb Hct MCV RDW Plt Count Lymph % (Auto) [place] % (Auto) Lymph # Seg Neutrophils % Seg Neuts % (Manual) Lymphocytes % (Manual) Nucleated RBC % Seg Neutrophils # Man Lymphocytes # (Manual) Monocytes # (Manual) PT INR D-Dimer Heparin Anti-Xa Level ABG pH 7.304 L ABG pO2 69.5 L ABG HCO3 29.7 H ABG O2 Saturation 93.2 L ABG Base Excess ABG Hemoglobin 8.7 L Oxyhemoglobin 90.7 L Sodium Potassium Chloride Carbon Dioxide BUN Creatinine Glucose POC Glucose 136 H 127 H Calcium Magnesium Ferritin Direct Bilirubin AST ALT Alkaline Phosphatase Lactate Dehydrogenase Troponin T C-Reactive Protein NT-Pro-B Natriuret Pep Total Protein Albumin Crossmatch 01/26/20 01/26/20 01/26/20 00:20 02:31 02:31 WBC RBC Hgb Hct MCV RDW Plt Count Lymph % (Auto) [place] % (Auto) Lymph # Seg Neutrophils % Seg Neuts % (Manual) Lymphocytes % (Manual) Nucleated RBC % Seg Neutrophils # Man Lymphocytes # (Manual) Monocytes # (Manual) PT INR D-Dimer Heparin Anti-Xa Level ABG pH ABG pO2 ABG HCO3 ABG O2 Saturation ABG Base Excess ABG Hemoglobin Oxyhemoglobin Sodium Potassium Chloride Carbon Dioxide BUN Creatinine Glucose POC Glucose 127 H Calcium Magnesium Ferritin 3764.0 H Direct Bilirubin AST ALT Alkaline Phosphatase Lactate Dehydrogenase 393 H Troponin T C-Reactive Protein 28.60 H NT-Pro-B Natriuret Pep Total Protein Albumin Crossmatch 01/26/20 01/26/20 01/26/20 02:31 04:45 05:24 WBC RBC Hgb Hct MCV RDW Plt Count Lymph % (Auto) [place] % (Auto) Lymph # Seg Neutrophils % Seg Neuts % (Manual) Lymphocytes % (Manual) Nucleated RBC % Seg Neutrophils # Man Lymphocytes # (Manual) Monocytes # (Manual) PT INR D-Dimer 3828.76 H Heparin Anti-Xa Level ABG pH ABG pO2 ABG HCO3 30.8 H ABG O2 Saturation ABG Base Excess 4.9 H ABG Hemoglobin 7.4 L Oxyhemoglobin 94.6 L Sodium Potassium Chloride Carbon Dioxide BUN Creatinine Glucose POC Glucose 121 H Calcium Magnesium Ferritin Direct Bilirubin AST ALT Alkaline Phosphatase Lactate Dehydrogenase Troponin T C-Reactive Protein NT-Pro-B Natriuret Pep Total Protein Albumin Crossmatch 01/26/20 01/26/20 01/26/20 10:40 12:36 18:10 WBC RBC Hgb Hct MCV RDW Plt Count Lymph % (Auto) [place] % (Auto) Lymph # Seg Neutrophils % Seg Neuts % (Manual) Lymphocytes % (Manual) Nucleated RBC % Seg Neutrophils # Man Lymphocytes # (Manual) Monocytes # (Manual) PT INR D-Dimer Heparin Anti-Xa Level ABG pH ABG pO2 ABG HCO3 ABG O2 Saturation ABG Base Excess ABG Hemoglobin Oxyhemoglobin Sodium Potassium Chloride Carbon Dioxide BUN Creatinine Glucose POC Glucose 119 H 126 H 159 H Calcium Magnesium Ferritin Direct Bilirubin AST ALT Alkaline Phosphatase Lactate Dehydrogenase Troponin T C-Reactive Protein NT-Pro-B Natriuret Pep Total Protein Albumin Crossmatch 01/27/20 01/27/20 01/27/20 03:45 06:15 12:19 WBC RBC Hgb Hct MCV RDW Plt Count Lymph % (Auto) [place] % (Auto) Lymph # Seg Neutrophils % Seg Neuts % (Manual) Lymphocytes % (Manual) Nucleated RBC % Seg Neutrophils # Man Lymphocytes # (Manual) Monocytes # (Manual) PT INR D-Dimer Heparin Anti-Xa Level ABG pH 7.307 L ABG pO2 91.1 H ABG HCO3 30.5 H ABG O2 Saturation ABG Base Excess 3.4 H ABG Hemoglobin 8.7 L Oxyhemoglobin 94.3 L Sodium Potassium Chloride Carbon Dioxide BUN Creatinine Glucose POC Glucose 147 H 164 H Calcium Magnesium Ferritin Direct Bilirubin AST ALT Alkaline Phosphatase Lactate Dehydrogenase Troponin T C-Reactive Protein NT-Pro-B Natriuret Pep Total Protein Albumin Crossmatch 01/27/20 01/28/20 01/28/20 17:42 00:29 04:34 WBC RBC Hgb Hct MCV RDW Plt Count Lymph % (Auto) [place] % (Auto) Lymph # Seg Neutrophils % Seg Neuts % (Manual) Lymphocytes % (Manual) Nucleated RBC % Seg Neutrophils # Man Lymphocytes # (Manual) Monocytes # (Manual) PT INR D-Dimer Heparin Anti-Xa Level ABG pH ABG pO2 ABG HCO3 ABG O2 Saturation ABG Base Excess ABG Hemoglobin Oxyhemoglobin Sodium Potassium Chloride Carbon Dioxide BUN Creatinine Glucose POC Glucose 149 H 178 H Calcium Magnesium Ferritin > 2000.0 H Direct Bilirubin AST ALT Alkaline Phosphatase Lactate Dehydrogenase Troponin T C-Reactive Protein NT-Pro-B Natriuret Pep Total Protein Albumin Crossmatch 01/28/20 01/28/20 01/28/20 04:34 04:34 05:20 WBC RBC Hgb Hct MCV RDW Plt Count Lymph % (Auto) [place] % (Auto) Lymph # Seg Neutrophils % Seg Neuts % (Manual) Lymphocytes % (Manual) Nucleated RBC % Seg Neutrophils # Man Lymphocytes # (Manual) Monocytes # (Manual) PT INR D-Dimer 2379 H Heparin Anti-Xa Level ABG pH 7.237 L ABG pO2 90.9 H ABG HCO3 29.1 H ABG O2 Saturation ABG Base Excess ABG Hemoglobin 7.5 L Oxyhemoglobin 94.0 L Sodium Potassium Chloride Carbon Dioxide BUN Creatinine Glucose POC Glucose Calcium Magnesium Ferritin Direct Bilirubin AST ALT Alkaline Phosphatase Lactate Dehydrogenase 434 H Troponin T C-Reactive Protein 9.70 H NT-Pro-B Natriuret Pep Total Protein Albumin Crossmatch 01/28/20 01/28/20 01/28/20 06:21 12:25 18:17 WBC RBC Hgb Hct MCV RDW Plt Count Lymph % (Auto) [place] % (Auto) Lymph # Seg Neutrophils % Seg Neuts % (Manual) Lymphocytes % (Manual) Nucleated RBC % Seg Neutrophils # Man Lymphocytes # (Manual) Monocytes # (Manual) PT INR D-Dimer Heparin Anti-Xa Level ABG pH ABG pO2 ABG HCO3 ABG O2 Saturation ABG Base Excess ABG Hemoglobin Oxyhemoglobin Sodium Potassium Chloride Carbon Dioxide BUN Creatinine Glucose POC Glucose 127 H 196 H 190 H Calcium Magnesium Ferritin Direct Bilirubin AST ALT Alkaline Phosphatase Lactate Dehydrogenase Troponin T C-Reactive Protein NT-Pro-B Natriuret Pep Total Protein Albumin Crossmatch 01/28/20 01/29/20 01/29/20 23:35 04:00 04:00 WBC 12.6 H RBC 3.01 L Hgb 9.2 L Hct 29.3 L MCV 98 H RDW 18.1 H Plt Count Lymph % (Auto) [place] % (Auto) Lymph # Seg Neutrophils % Seg Neuts % (Manual) Lymphocytes % (Manual) Nucleated RBC % Seg Neutrophils # Man Lymphocytes # (Manual) Monocytes # (Manual) PT INR D-Dimer Heparin Anti-Xa Level ABG pH ABG pO2 ABG HCO3 ABG O2 Saturation ABG Base Excess ABG Hemoglobin Oxyhemoglobin Sodium 132 L Potassium Chloride 90.1 L Carbon Dioxide BUN 50 H Creatinine 3.7 H Glucose 184 H POC Glucose 177 H Calcium Magnesium Ferritin Direct Bilirubin AST 93 H ALT Alkaline Phosphatase 678 H Lactate Dehydrogenase Troponin T C-Reactive Protein NT-Pro-B Natriuret Pep Total Protein Albumin 1.7 L Crossmatch 01/29/20 01/29/20 01/29/20 05:03 11:53 16:44 WBC RBC Hgb Hct MCV RDW Plt Count Lymph % (Auto) [place] % (Auto) Lymph # Seg Neutrophils % Seg Neuts % (Manual) Lymphocytes % (Manual) Nucleated RBC % Seg Neutrophils # Man Lymphocytes # (Manual) Monocytes # (Manual) PT INR D-Dimer Heparin Anti-Xa Level ABG pH ABG pO2 ABG HCO3 ABG O2 Saturation ABG Base Excess ABG Hemoglobin Oxyhemoglobin Sodium Potassium Chloride Carbon Dioxide BUN Creatinine Glucose POC Glucose 145 H 193 H 174 H Calcium Magnesium Ferritin Direct Bilirubin AST ALT Alkaline Phosphatase Lactate Dehydrogenase Troponin T C-Reactive Protein NT-Pro-B Natriuret Pep Total Protein Albumin Crossmatch 01/29/20 01/30/20 01/30/20 23:38 04:25 11:45 WBC RBC Hgb Hct MCV RDW Plt Count Lymph % (Auto) [place] % (Auto) Lymph # Seg Neutrophils % Seg Neuts % (Manual) Lymphocytes % (Manual) Nucleated RBC % Seg Neutrophils # Man Lymphocytes # (Manual) Monocytes # (Manual) PT INR D-Dimer Heparin Anti-Xa Level ABG pH 7.253 L ABG pO2 61.8 L ABG HCO3 29.7 H ABG O2 Saturation 90.1 L ABG Base Excess ABG Hemoglobin 8.2 L Oxyhemoglobin 87.5 L Sodium Potassium Chloride Carbon Dioxide BUN Creatinine Glucose POC Glucose 144 H 191 H Calcium Magnesium Ferritin Direct Bilirubin AST ALT Alkaline Phosphatase Lactate Dehydrogenase Troponin T C-Reactive Protein NT-Pro-B Natriuret Pep Total Protein Albumin Crossmatch 01/30/20 01/31/20 01/31/20 18:21 00:04 03:52 WBC RBC Hgb Hct MCV RDW Plt Count Lymph % (Auto) [place] % (Auto) Lymph # Seg Neutrophils % Seg Neuts % (Manual) Lymphocytes % (Manual) Nucleated RBC % Seg Neutrophils # Man Lymphocytes # (Manual) Monocytes # (Manual) PT INR D-Dimer Heparin Anti-Xa Level ABG pH ABG pO2 69.3 L ABG HCO3 29.4 H ABG O2 Saturation ABG Base Excess 3.7 H ABG Hemoglobin 10.8 L Oxyhemoglobin Sodium Potassium Chloride Carbon Dioxide BUN Creatinine Glucose POC Glucose 198 H 129 H Calcium Magnesium Ferritin Direct Bilirubin AST ALT Alkaline Phosphatase Lactate Dehydrogenase Troponin T C-Reactive Protein NT-Pro-B Natriuret Pep Total Protein Albumin Crossmatch 04/16/20 04/16/20 04/16/20 04:00 04:16 05:12 WBC 16.7 H RBC 2.73 L Hgb 8.3 L Hct 25.7 L MCV RDW 18.0 H Plt Count Lymph % (Auto) [place] % (Auto) Lymph # Seg Neutrophils % Seg Neuts % (Manual) 92.0 H Lymphocytes % (Manual) 2.0 L Nucleated RBC % Seg Neutrophils # Man 15.4 H Lymphocytes # (Manual) 0.3 L Monocytes # (Manual) 1.0 H PT INR D-Dimer Heparin Anti-Xa Level ABG pH ABG pO2 ABG HCO3 ABG O2 Saturation ABG Base Excess ABG Hemoglobin Oxyhemoglobin Sodium 130 L Potassium Chloride 90.1 L Carbon Dioxide BUN 61 H Creatinine 3.4 H Glucose 128 H POC Glucose 157 H Calcium Magnesium Ferritin Direct Bilirubin AST 103 H ALT 63 H Alkaline Phosphatase 534 H Lactate Dehydrogenase Troponin T C-Reactive Protein NT-Pro-B Natriuret Pep Total Protein Albumin 2.1 L Crossmatch 01/31/20 01/31/20 01/31/20 11:50 17:39 18:47 WBC RBC Hgb Hct MCV RDW Plt Count Lymph % (Auto) [place] % (Auto) Lymph # Seg Neutrophils % Seg Neuts % (Manual) Lymphocytes % (Manual) Nucleated RBC % Seg Neutrophils # Man Lymphocytes # (Manual) Monocytes # (Manual) PT INR D-Dimer Heparin Anti-Xa Level ABG pH ABG pO2 ABG HCO3 ABG O2 Saturation ABG Base Excess ABG Hemoglobin Oxyhemoglobin Sodium Potassium Chloride Carbon Dioxide BUN Creatinine Glucose POC Glucose 129 H 51 L 172 H Calcium Magnesium Ferritin Direct Bilirubin AST ALT Alkaline Phosphatase Lactate Dehydrogenase Troponin T C-Reactive Protein NT-Pro-B Natriuret Pep Total Protein Albumin Crossmatch 02/01/20 02/01/20 02/01/20 03:49 03:49 05:00 WBC 17.4 H RBC 2.68 L Hgb 8.0 L Hct 25.2 L MCV RDW 18.4 H Plt Count Lymph % (Auto) [place] % (Auto) Lymph # Seg Neutrophils % Seg Neuts % (Manual) Lymphocytes % (Manual) Nucleated RBC % Seg Neutrophils # Man Lymphocytes # (Manual) Monocytes # (Manual) PT INR D-Dimer Heparin Anti-Xa Level ABG pH 7.290 L ABG pO2 ABG HCO3 26.8 H ABG O2 Saturation ABG Base Excess ABG Hemoglobin 7.5 L Oxyhemoglobin 94.2 L Sodium 133 L Potassium Chloride 90.8 L Carbon Dioxide 21 L BUN 90 H Creatinine 4.6 H Glucose 145 H POC Glucose Calcium Magnesium Ferritin Direct Bilirubin AST ALT Alkaline Phosphatase Lactate Dehydrogenase Troponin T C-Reactive Protein NT-Pro-B Natriuret Pep Total Protein Albumin Crossmatch 02/01/20 02/01/20 02/01/20 05:34 06:09 12:42 WBC RBC Hgb Hct MCV RDW Plt Count Lymph % (Auto) [place] % (Auto) Lymph # Seg Neutrophils % Seg Neuts % (Manual) Lymphocytes % (Manual) Nucleated RBC % Seg Neutrophils # Man Lymphocytes # (Manual) Monocytes # (Manual) PT INR D-Dimer Heparin Anti-Xa Level ABG pH ABG pO2 ABG HCO3 ABG O2 Saturation ABG Base Excess ABG Hemoglobin Oxyhemoglobin Sodium Potassium Chloride Carbon Dioxide BUN Creatinine Glucose POC Glucose 166 H 143 H 218 H Calcium Magnesium Ferritin Direct Bilirubin AST ALT Alkaline Phosphatase Lactate Dehydrogenase Troponin T C-Reactive Protein NT-Pro-B Natriuret Pep Total Protein Albumin Crossmatch 02/01/20 02/01/20 02/02/20 17:38 18:24 05:00 WBC RBC Hgb Hct MCV RDW Plt Count Lymph % (Auto) [place] % (Auto) Lymph # Seg Neutrophils % Seg Neuts % (Manual) Lymphocytes % (Manual) Nucleated RBC % Seg Neutrophils # Man Lymphocytes # (Manual) Monocytes # (Manual) PT INR D-Dimer Heparin Anti-Xa Level ABG pH 7.317 L ABG pO2 ABG HCO3 28.2 H ABG O2 Saturation ABG Base Excess ABG Hemoglobin 10.1 L Oxyhemoglobin 94.0 L Sodium Potassium Chloride Carbon Dioxide BUN Creatinine Glucose POC Glucose 158 H 233 H Calcium Magnesium Ferritin Direct Bilirubin AST ALT Alkaline Phosphatase Lactate Dehydrogenase Troponin T C-Reactive Protein NT-Pro-B Natriuret Pep Total Protein Albumin Crossmatch 02/02/20 02/02/20 02/02/20 05:44 05:44 05:44 WBC 16.0 H RBC 2.85 L Hgb 8.3 L Hct 26.3 L MCV RDW 18.6 H Plt Count Lymph % (Auto) [place] % (Auto) Lymph # Seg Neutrophils % Seg Neuts % (Manual) 91.0 H Lymphocytes % (Manual) 2.0 L Nucleated RBC % Seg Neutrophils # Man 14.6 H Lymphocytes # (Manual) 0.3 L Monocytes # (Manual) PT INR D-Dimer Heparin Anti-Xa Level 0.77 H ABG pH ABG pO2 ABG HCO3 ABG O2 Saturation ABG Base Excess ABG Hemoglobin Oxyhemoglobin Sodium Potassium Chloride 95.5 L Carbon Dioxide BUN 57 H Creatinine 3.0 H Glucose 144 H POC Glucose Calcium 8.1 L Magnesium Ferritin Direct Bilirubin 0.3 H AST 179 H ALT 106 H Alkaline Phosphatase 557 H Lactate Dehydrogenase Troponin T C-Reactive Protein NT-Pro-B Natriuret Pep Total Protein 6.1 L Albumin 2.3 L Crossmatch 02/02/20 02/02/20 02/02/20 11:17 11:33 12:24 WBC RBC Hgb Hct MCV RDW Plt Count Lymph % (Auto) [place] % (Auto) Lymph # Seg Neutrophils % Seg Neuts % (Manual) Lymphocytes % (Manual) Nucleated RBC % Seg Neutrophils # Man Lymphocytes # (Manual) Monocytes # (Manual) PT INR D-Dimer Heparin Anti-Xa Level ABG pH ABG pO2 ABG HCO3 ABG O2 Saturation ABG Base Excess ABG Hemoglobin Oxyhemoglobin Sodium Potassium Chloride Carbon Dioxide BUN Creatinine Glucose POC Glucose < 40 L < 40 L 224 H Calcium Magnesium Ferritin Direct Bilirubin AST ALT Alkaline Phosphatase Lactate Dehydrogenase Troponin T C-Reactive Protein NT-Pro-B Natriuret Pep Total Protein Albumin Crossmatch 02/02/20 02/02/20 02/03/20 12:33 17:42 00:25 WBC RBC Hgb Hct MCV RDW Plt Count Lymph % (Auto) [place] % (Auto) Lymph # Seg Neutrophils % Seg Neuts % (Manual) Lymphocytes % (Manual) Nucleated RBC % Seg Neutrophils # Man Lymphocytes # (Manual) Monocytes # (Manual) PT INR D-Dimer Heparin Anti-Xa Level ABG pH ABG pO2 ABG HCO3 ABG O2 Saturation ABG Base Excess ABG Hemoglobin Oxyhemoglobin Sodium Potassium Chloride Carbon Dioxide BUN Creatinine Glucose 296 H POC Glucose 228 H < 40 L Calcium Magnesium Ferritin Direct Bilirubin AST ALT Alkaline Phosphatase Lactate Dehydrogenase Troponin T C-Reactive Protein NT-Pro-B Natriuret Pep Total Protein Albumin Crossmatch 02/03/20 02/03/20 02/03/20 00:27 03:59 03:59 WBC 22.9 H RBC 2.80 L Hgb 8.3 L Hct 27.4 L MCV 98 H RDW 19.2 H Plt Count Lymph % (Auto) [place] % (Auto) Lymph # Seg Neutrophils % Seg Neuts % (Manual) 92.0 H Lymphocytes % (Manual) 4.0 L Nucleated RBC % Seg Neutrophils # Man 21.1 H Lymphocytes # (Manual) 0.9 L Monocytes # (Manual) PT INR D-Dimer Heparin Anti-Xa Level ABG pH ABG pO2 ABG HCO3 ABG O2 Saturation ABG Base Excess ABG Hemoglobin Oxyhemoglobin Sodium 134 L Potassium 3.5 L Chloride Carbon Dioxide 21 L BUN 40 H Creatinine 2.6 H Glucose 180 H POC Glucose 198 H Calcium Magnesium Ferritin Direct Bilirubin AST ALT Alkaline Phosphatase Lactate Dehydrogenase Troponin T C-Reactive Protein NT-Pro-B Natriuret Pep Total Protein Albumin Crossmatch 02/03/20 02/03/20 02/03/20 04:48 05:00 12:21 WBC RBC Hgb Hct MCV RDW Plt Count Lymph % (Auto) [place] % (Auto) Lymph # Seg Neutrophils % Seg Neuts % (Manual) Lymphocytes % (Manual) Nucleated RBC % Seg Neutrophils # Man Lymphocytes # (Manual) Monocytes # (Manual) PT INR D-Dimer Heparin Anti-Xa Level ABG pH 7.315 L ABG pO2 97.3 H ABG HCO3 28.5 H ABG O2 Saturation ABG Base Excess ABG Hemoglobin 8.3 L Oxyhemoglobin 94.8 L Sodium Potassium Chloride Carbon Dioxide BUN Creatinine Glucose POC Glucose 182 H 201 H Calcium Magnesium Ferritin Direct Bilirubin AST ALT Alkaline Phosphatase Lactate Dehydrogenase Troponin T C-Reactive Protein NT-Pro-B Natriuret Pep Total Protein Albumin Crossmatch 02/03/20 02/03/20 02/04/20 17:43 23:36 04:50 WBC RBC Hgb Hct MCV RDW Plt Count Lymph % (Auto) [place] % (Auto) Lymph # Seg Neutrophils % Seg Neuts % (Manual) Lymphocytes % (Manual) Nucleated RBC % Seg Neutrophils # Man Lymphocytes # (Manual) Monocytes # (Manual) PT INR D-Dimer Heparin Anti-Xa Level ABG pH ABG pO2 ABG HCO3 ABG O2 Saturation ABG Base Excess ABG Hemoglobin Oxyhemoglobin Sodium 135 L Potassium Chloride 96.3 L Carbon Dioxide 21 L BUN 63 H Creatinine 4.1 H D Glucose 156 H POC Glucose 224 H 146 H Calcium 8.2 L Magnesium Ferritin Direct Bilirubin AST ALT Alkaline Phosphatase Lactate Dehydrogenase Troponin T C-Reactive Protein NT-Pro-B Natriuret Pep Total Protein Albumin Crossmatch 02/04/20 02/04/20 02/04/20 04:50 05:30 05:40 WBC 18.3 H RBC 2.31 L Hgb 6.9 L Hct 22.0 L MCV RDW 18.2 H Plt Count Lymph % (Auto) [place] % (Auto) Lymph # Seg Neutrophils % Seg Neuts % (Manual) 85.0 H Lymphocytes % (Manual) 4.0 L Nucleated RBC % 1.0 H Seg Neutrophils # Man 15.6 H Lymphocytes # (Manual) 0.7 L Monocytes # (Manual) PT INR D-Dimer Heparin Anti-Xa Level ABG pH 7.317 L ABG pO2 77.7 L ABG HCO3 27.4 H ABG O2 Saturation ABG Base Excess ABG Hemoglobin 8.0 L Oxyhemoglobin 94.5 L Sodium Potassium Chloride Carbon Dioxide BUN Creatinine Glucose POC Glucose 202 H Calcium Magnesium Ferritin Direct Bilirubin AST ALT Alkaline Phosphatase Lactate Dehydrogenase Troponin T C-Reactive Protein NT-Pro-B Natriuret Pep Total Protein Albumin Crossmatch 02/04/20 10:47 WBC RBC Hgb Hct MCV RDW Plt Count Lymph % (Auto) [place] % (Auto) Lymph # Seg Neutrophils % Seg Neuts % (Manual) Lymphocytes % (Manual) Nucleated RBC % Seg Neutrophils # Man Lymphocytes # (Manual) Monocytes # (Manual) PT INR D-Dimer Heparin Anti-Xa Level ABG pH ABG pO2 ABG HCO3 ABG O2 Saturation ABG Base Excess ABG Hemoglobin Oxyhemoglobin Sodium Potassium Chloride Carbon Dioxide BUN Creatinine Glucose POC Glucose Calcium Magnesium Ferritin Direct Bilirubin AST ALT Alkaline Phosphatase Lactate Dehydrogenase Troponin T C-Reactive Protein NT-Pro-B Natriuret Pep Total Protein Albumin Crossmatch See Detail Allied health notes reviewed: nursing
--- NOTE | 2020-02-04 12:12 | Progress Note ---
Assessment and Plan Cultures: 01/10/2020 blood culture: No growth 01/21/2020 sputum culture: No growth 01/25/2020 blood culture: No growth A/P: #Sepsis with shock: likely due to severe COVID pneumonia. Completed empiric Cefepime x 5 days. #Severe COVID pneumonia: very elevated inflammatory markers. S/p ivermectin x 1 on 01/21/2020 (off label use). S/p hydroxychloroquine with zinc x 5 days. #Acute hypoxic resp failure: intubated, on the vent #ESRD on HD #Thrombocytopenia: resolved #Elevated LFTs: etiology unclear. Bilirubin is normal. Alk phos and transaminases elevated. RUQ US showed no gall bladder, CBD appeared normal. Recs: given persistent low grade fevers and pressor requirements, would reculture and start empiric abx: Cefepime, Vancomycin + Fluconazole renally adjusted Slava Hannon MD, FACP [facility] ([facility]) C: [phone] O: [phone] F: [phone] Subjective Date of service: 02/04/20 Principal diagnosis: Pneumonia Interval history: Low grade fevers persist. also on low dose pressors. Remains intubated, on the vent. Objective - Exam Narrative Exam: Physical Exam (reviewed in chart due to PPE conservation) Constitutional: intubated, on the vent Head, Ears, Nose: normocephalic, atraumatic Eyes: limited due to PPE conservation strategy Neck: intubated Oral: intubated Cardiovascular: limited due to PPE conservation strategy Respiratory: limited due to PPE conservation strategy GI: limited due to PPE conservation strategy Musculoskeletal: limited due to PPE conservation strategy Skin: limited due to PPE conservation strategy Hem/Lymphatic: limited due to PPE conservation strategy Psych: no agitation Neurological: intubated, on the vent, exam limited. - Constitutional Vitals: Vital Signs Temp Pulse Resp BP Pulse Ox 100.2 F H 102 H 14 92/49 97 02/04/20 09:45 02/04/20 12:00 02/04/20 11:00 02/04/20 12:00 02/04/20 11:00 Temperature -Last 24 Hours Temperature 100.2 F Temperature 100.6 F Temperature 100.2 F - Labs CBC & Chem 7: 02/04/20 04:50 02/04/20 04:50 Labs: Abnormal lab results 02/03/20 02/03/20 02/03/20 Range/Units 12:21 17:43 23:36 WBC (4.5-11.0) K/mm3 RBC (3.65-5.03) M/mm3 Hgb (10.1-14.3) gm/dl Hct (30.3-42.9) % RDW (13.2-15.2) % Seg Neuts % (Manual) (40.0-70.0) % Lymphocytes % (Manual) (13.4-35.0) % Nucleated RBC % (0.0-0.9) % Seg Neutrophils # Man (1.8-7.7) K/mm3 Lymphocytes # (Manual) (1.2-5.4) K/mm3 ABG pH (7.350-7.450) pH Units ABG pO2 (80.0-90.0) mm Hg ABG HCO3 (20.0-26.0) mmol/L ABG Hemoglobin (12.0-16.0) gm/dl Oxyhemoglobin (95.0-99.0) % Sodium (137-145) mmol/L Chloride (98-107) mmol/L Carbon Dioxide (22-30) mmol/L BUN (7-17) mg/dL Creatinine (0.7-1.2) mg/dL Glucose (65-100) mg/dL POC Glucose 201 H 224 H 146 H (70-105) Calcium (8.4-10.2) mg/dL Crossmatch 02/04/20 02/04/20 02/04/20 Range/Units 04:50 04:50 05:30 WBC 18.3 H (4.5-11.0) K/mm3 RBC 2.31 L (3.65-5.03) M/mm3 Hgb 6.9 L (10.1-14.3) gm/dl Hct 22.0 L (30.3-42.9) % RDW 18.2 H (13.2-15.2) % Seg Neuts % (Manual) 85.0 H (40.0-70.0) % Lymphocytes % (Manual) 4.0 L (13.4-35.0) % Nucleated RBC % 1.0 H (0.0-0.9) % Seg Neutrophils # Man 15.6 H (1.8-7.7) K/mm3 Lymphocytes # (Manual) 0.7 L (1.2-5.4) K/mm3 ABG pH 7.317 L (7.350-7.450) pH Units ABG pO2 77.7 L (80.0-90.0) mm Hg ABG HCO3 27.4 H (20.0-26.0) mmol/L ABG Hemoglobin 8.0 L (12.0-16.0) gm/dl Oxyhemoglobin 94.5 L (95.0-99.0) % Sodium 135 L (137-145) mmol/L Chloride 96.3 L (98-107) mmol/L Carbon Dioxide 21 L (22-30) mmol/L BUN 63 H (7-17) mg/dL Creatinine 4.1 H D (0.7-1.2) mg/dL Glucose 156 H (65-100) mg/dL POC Glucose (70-105) Calcium 8.2 L (8.4-10.2) mg/dL Crossmatch 02/04/20 02/04/20 Range/Units 05:40 10:47 WBC (4.5-11.0) K/mm3 RBC (3.65-5.03) M/mm3 Hgb (10.1-14.3) gm/dl Hct (30.3-42.9) % RDW (13.2-15.2) % Seg Neuts % (Manual) (40.0-70.0) % Lymphocytes % (Manual) (13.4-35.0) % Nucleated RBC % (0.0-0.9) % Seg Neutrophils # Man (1.8-7.7) K/mm3 Lymphocytes # (Manual) (1.2-5.4) K/mm3 ABG pH (7.350-7.450) pH Units ABG pO2 (80.0-90.0) mm Hg ABG HCO3 (20.0-26.0) mmol/L ABG Hemoglobin (12.0-16.0) gm/dl Oxyhemoglobin (95.0-99.0) % Sodium (137-145) mmol/L Chloride (98-107) mmol/L Carbon Dioxide (22-30) mmol/L BUN (7-17) mg/dL Creatinine (0.7-1.2) mg/dL Glucose (65-100) mg/dL POC Glucose 202 H (70-105) Calcium (8.4-10.2) mg/dL Crossmatch See Detail
[2020-02-04] MEDS ORDERED: VANCOMYCIN 1,250 MG in SODIUM CHLORIDE 0.9% 500 ML 500 ML IV ONE (12:15)
[2020-02-04] MEDS ORDERED: VANCOMYCIN PHARMACY TO DOSE IV SCH (13:00)
[2020-02-04] MEDS: FLUCONAZOLE 200 MG 200 MG/100 ML BAG IV SCH (13:30)
[2020-02-04] MEDS: CEFEPIME/NS 1 GM/100 ML 1 GM/100 ML BAG IV SCH (14:30)
[2020-02-04] MEDS ORDERED: VANCOMYCIN 1,500 MG in SODIUM CHLORIDE 0.9% 500 ML 500 ML IV ONE (15:00)
[2020-02-04] MEDS: ACETAMINOPHEN 325 MG TAB PO PRN (21:32)
[2020-02-05 04:57] LABS: ABG Base Excess 3.5 mmol/L (-2.0-3.0); ABG HCO3 30.1 mmol/L (20.0-26.0); ABG Methemoglobin 0.5 % (0.0-1.5); ABG Oxygen Saturation 96.2 % (95.0-99.0); ABG PCO2 58.9 mm Hg; ABG PH 7.327 pH Units (7.350-7.450); ABG PO2 75.5 mm Hg (80.0-90.0)
[2020-02-05 05:01] LABS: Hematocrit 25.2 % (30.3-42.9); Hemoglobin 7.9 gm/dl (10.1-14.3); Mean Corpuscular HGB Conc 32 % (30-34); Mean Corpuscular Volume 92 fl (79-97); Platelet Count 363 K/mm3 (140-440); Red Blood Count 2.75 M/mm3 (3.65-5.03); Red Cell Distribution Width 18.1 % (13.2-15.2)
[2020-02-05 05:12] LABS: Calcium 8.1 mg/dL (8.4-10.2)
[2020-02-05] MEDS: ACETAMINOPHEN 325 MG TAB PO PRN (05:58)
[2020-02-05 05:59] LABS: Basophils % (Manual) 0 % (0.0-1.8); Total Cells Counted 100
[2020-02-05 06:00] LABS: Anisocytosis Few; Hypochromasia Rare; Macrocytosis Rare; Platelet Estimate Consistent w Auto
--- NOTE | 2020-02-05 09:47 | Progress Note ---
Assessment and Plan Assessment and plan: COVID- 19 infection confirmed. Bilateral pneumonia. Continue antibiotics per ID ARDS. Etiology secondary to above. Acute hypoxemic respiratory failure. Intubated, on ventilator Pulm following Chest pain Stress test neg for ischemia GERD and costochondritis in differential diagnosis Volume overload s/p hemodialysis Nephrology consulted,following Acute on Chronic diastolic CHF exacerbation Secondary to volume overload End stage renal disease on dialysis Nephrology following T2DM (type 2 diabetes mellitus) Continue continue coverage Check hemoglobin A1c Hypertension Continue antihypertensives Hyponatremia Secondary to increased volume--dilutional DVT prophylaxis On heparin and GI prophylaxis 01/11 Covid 19 survey testing sent, nasal swab done 01/10 01/12 Patient has acute resp failure. may need Oxygen on dc. awaiting Covid result 01/13 Still has shortness of breath, awaiting Covid test. 01/14 Pt still dyspneic, await covid testing, Pulse ox 83% 01/16/2020. Patient remains dyspneic. Follow-up COVID testing. 01/17/2020. Patient still requiring large amounts of oxygen. Patient currently with 15 L satting at 95%. Patient with increased inflammatory markers. Follow- up chest x-ray today. 01/18/20--Patient still requiring large amounts of oxygen. Patient currently with 15 L %. Patient with increased inflammatory markers. 01/19/2020 very elevated inflammatory markers- ferritin> 2000, CRP >24, LDH> 600, d-dimer >1000 putting her at high risk for ARDS. Continue hydroxychloroquine 400 mg PO BID for 1 day then 200 mg PO BID for 4 days (total 5 days) with zinc 220 mg PO qday. Continue ceftriaxone. ContinueCOVID isolationprecautions per [facility] protocol. Continue serial Ferritin, LDH, D-Dimer, CRP every 48h 01/20/2020. Inflammatory markers remain elevated with ferritin 1826, LDH 496, CRP 19.3, and d-dimer 2072. Patient requiring high flow nasal cannula 40L, FiO2 80%. Pulmonary following. Continue antibiotics and Plaquenil. Continue COVID [facility]precautions [facility] protocol. Patient has a high risk mortality and remains guarded. 01/21/2020. Continue antibiotics and Plaquenil. Continue COVID isolationprecautions per [facility] protocol. Maintain sats of 88% and greater. Still on HFNC, O2 weaned to 95% overnight. Sats documented at 98%. Pulmonary following and reports If patient progresses could give bipap a one hour trial to see if there is improvement, repeat ABG, if not would suggest elective intubation 01/22/2020 Patient still critically ill. Yesterday 01/20 had cardiopulmonary arrest so now intubated in ICU. Prognosis guarded. 01/23/2020 still critically ill. No more fever. Continue vent management. 01/24/20 Still critically ill, remain on vent. Continue current management. Will call . 01/25/20 Patient still critically ill. I called Davis Hernandez and gave update. He wants DNR status and says he will request withdrawal of care if patient does not get better after weekend. I discussed with Multimedia Production Assistant. 01/26/20 patient still intubated, on vent. She means a DNR order. Discussed with Nurse 01/26 patient still critically ill, vent dependent. 01/27 patient still intubated, on vent. On levophed to keep MAP>65mmhg 01/29/2020 patient still intubated on mechanical ventilation. AC mode ventilation with rate 20, tidal volume 400, FiO2 45% and PEEP 12. patient with no fever. Patient currently with sedation of propofol. Patient received hemodialysis yesterday with approximately 3 L removed. 01/30/2020. Patient still on mechanical ventilation. AC mode ventilation with rate 20, tidal volume 400, FiO2 45% and PEEP 8. Patient with elevated alkaline phosphatase. Check abdominal ultrasound. 01/31/2020. Patient still on mechanical ventilation. PSV mode ventilation with FiO2 50% and PEEP 8 and PS=12. Follow-up abdominal ultrasound for elevated alkaline phosphatase 02/01/2020. Patient currently with PSV FiO2 50%, pressure support 12, PEEP 8. Continue PSV trials per pulmonary. Continue Levophed to maintain MAP greater than 65. Continue propofol for sedation. 02/02/2020. Patient currently on AC mode ventilation rate 20, tidal volume 450, FiO2 50% and PEEP of 6. ABG with pH of 7.31, PCO2 56.4, and PO2 85. Patient confirmed COVID-19 positive on 01/17/2020. Patient with MOSF and guarded prognosis. Follow-up abdominal ultrasound (ordered 3 days ago) for elevated alkaline phosphatase and fevers. 02/03/2020. Patient continues on mechanical ventilation AC mode with rate 20, tidal volume 450 and PEEP of 8. Patient still with temperature 100.5. Patient off sedation but requiring Levophed at 2 mics. Patient with an episode of hypoglycemia yesterday requiring D5 half-normal. Continue to monitor for hypoglycemia. Patient with MOSF and guarded prognosis. Follow-up abdominal ultrasound (ordered 4 days ago) for elevated alkaline phosphatase and fevers. 02/04/2020. Patient continues on mechanical ventilation AC mode with rate 20, tidal volume 450, FiO2 50% and PEEP of 8. Patient continues to have fevers. Patient currently on Levophed. Continue pressors to maintain map greater than 65. Hemoglobin 6.9-1 unit PRBCs ordered. Patient may be able to wean off of Levophed with volume resuscitation of PRBCs. Follow-up abdominal ultrasound (ordered 5 days ago) for elevated alkaline phosphatase and fevers. Patient's prognosis remains guarded. 02/05/2020 patient with covid-19 infection with acute resp failure, intubated, still on vent. Now off Levophed since 02/03 The high probability of a clinically significant, sudden or life threatening deterioration of the [immunologic and respiratory] system(s) required my full and direct attention, intervention and personal management. The aggregate critical care time was [35] minutes. This time is in addition to time spent performing reported procedures but includes the following: [x] Data Review and interpretation [x] Patient assessment and monitoring of vital signs [x] Documentation [x] Medication orders and management History Interval history: Patient initially presented with chest tightness, SOB Now diagnosed with Covid-19 infection,acute resp failure, intubated Now having fevers Hospitalist Physical - Physical exam Narrative exam: GEN: Intubated, HEENT: Normocephalic, atraumatic, Neck: supple, No JVD Lungs: Bilateral crackles, heart;S1 and S2 reg, no murmurs, rubs or gallop Abd:soft, non tender, non distended, normal bowel sounds Ext: No edema, no clubbing, no cyanosis, Neuro: intubated, unresponsive - Constitutional Vitals: Temp Pulse Resp BP Pulse Ox 99.5 F 99 H 22 109/52 100 02/05/20 08:12 02/05/20 08:40 02/05/20 08:40 02/05/20 08:40 02/05/20 08:40 General appearance: Present: no acute distress BREEZY score - Breezy Score Age > 65: (1) Yes Aspirin use within the Past 7 Days: (1) Yes 3 or more CAD Risk Factors: (1) Yes 2 or more Angina events in past 24 hrs: (1) Yes Known CAD with more than 50% Stenosis: (0) No Elevated Cardiac Markers: (0) No ST Deviation Greater than 0.5mm: (0) No BREEZY Score: 4 Results - Labs CBC & Chem 7: 02/05/20 04:35 02/05/20 04:35 Labs: Laboratory Last Values WBC 24.4 K/mm3 (4.5-11.0) H 02/05/20 04:35 RBC 2.75 M/mm3 (3.65-5.03) L 02/05/20 04:35 Hgb 7.9 gm/dl (10.1-14.3) L 02/05/20 04:35 Hct 25.2 % (30.3-42.9) L 02/05/20 04:35 MCV 92 fl (79-97) 02/05/20 04:35 MCH 29 pg (28-32) 02/05/20 04:35 MCHC 32 % (30-34) 02/05/20 04:35 RDW 18.1 % (13.2-15.2) H 02/05/20 04:35 Plt Count 363 K/mm3 (140-440) 02/05/20 04:35 Lymph % (Auto) Stopper Setter 02/03/20 03:59 Kimble % (Auto) Stopper Setter 02/03/20 03:59 Eos % (Auto) Stopper Setter 02/03/20 03:59 Baso % (Auto) Stopper Setter 02/03/20 03:59 Lymph # Stopper Setter 02/03/20 03:59 Kimble # Stopper Setter 02/03/20 03:59 Eos # Stopper Setter 02/03/20 03:59 Baso # Stopper Setter 02/03/20 03:59 Add Manual Diff Complete 02/05/20 04:35 Total Counted 100 02/05/20 04:35 Seg Neutrophils % Stopper Setter 02/05/20 04:35 Seg Neuts % (Manual) 96.0 % (40.0-70.0) H 02/05/20 04:35 Band Neutrophils % 0 % 02/05/20 04:35 Lymphocytes % (Manual) 1.0 % (13.4-35.0) L 02/05/20 04:35 Reactive Lymphs % (Man) 0 % 02/05/20 04:35 Monocytes % (Manual) 1.0 % (0.0-7.3) 02/05/20 04:35 Eosinophils % (Manual) 2.0 % (0.0-4.3) 02/05/20 04:35 Basophils % (Manual) 0 % (0.0-1.8) 02/05/20 04:35 Metamyelocytes % 0 % 02/05/20 04:35 Myelocytes % 0 % 02/05/20 04:35 Promyelocytes % 0 % 02/05/20 04:35 Blast Cells % 0 % 02/05/20 04:35 Nucleated RBC % Not Reportable 02/05/20 04:35 Seg Neutrophils # Stopper Setter 02/03/20 03:59 Seg Neutrophils # Man 23.4 K/mm3 (1.8-7.7) H 02/05/20 04:35 Band Neutrophils # 0.0 K/mm3 02/05/20 04:35 Lymphocytes # (Manual) 0.2 K/mm3 (1.2-5.4) L 02/05/20 04:35 Abs React Lymphs (Man) 0.0 K/mm3 02/05/20 04:35 Monocytes # (Manual) 0.2 K/mm3 (0.0-0.8) 02/05/20 04:35 Eosinophils # (Manual) 0.5 K/mm3 (0.0-0.4) H 02/05/20 04:35 Basophils # (Manual) 0.0 K/mm3 (0.0-0.1) 02/05/20 04:35 Metamyelocytes # 0.0 K/mm3 02/05/20 04:35 Myelocytes # 0.0 K/mm3 02/05/20 04:35 Promyelocytes # 0.0 K/mm3 02/05/20 04:35 Blast Cells # 0.0 K/mm3 02/05/20 04:35 WBC Morphology Not Reportable 02/05/20 04:35 Hypersegmented Neuts Not Reportable 02/05/20 04:35 Hyposegmented Neuts Not Reportable 02/05/20 04:35 Hypogranular Neuts Not Reportable 02/05/20 04:35 Smudge Cells Not Reportable 02/05/20 04:35 Toxic Granulation Not Reportable 02/05/20 04:35 Toxic Vacuolation Not Reportable 02/05/20 04:35 Dohle Bodies Not Reportable 02/05/20 04:35 Pelger-Huet Anomaly Not Reportable 02/05/20 04:35 Armando Rods Not Reportable 02/05/20 04:35 Platelet Estimate Consistent w auto 02/05/20 04:35 Clumped Platelets Not Reportable 02/05/20 04:35 Plt Clumps, EDTA Not Reportable 02/05/20 04:35 Large Platelets Not Reportable 02/05/20 04:35 Giant Platelets Not Reportable 02/05/20 04:35 Platelet Satelliting Not Reportable 02/05/20 04:35 Plt Morphology Comment Not Reportable 02/05/20 04:35 RBC Morphology Not Reportable 02/05/20 04:35 Dimorphic RBCs Not Reportable 02/05/20 04:35 Polychromasia Not Reportable 02/05/20 04:35 Hypochromasia Rare 02/05/20 04:35 Poikilocytosis Not Reportable 02/05/20 04:35 Anisocytosis Few 02/05/20 04:35 Microcytosis Not Reportable 02/05/20 04:35 Macrocytosis Rare 02/05/20 04:35 Spherocytes Not Reportable 02/05/20 04:35 Pappenheimer Bodies Not Reportable 02/05/20 04:35 Sickle Cells Not Reportable 02/05/20 04:35 Target Cells Not Reportable 02/05/20 04:35 Tear Drop Cells Not Reportable 02/05/20 04:35 Ovalocytes Not Reportable 02/05/20 04:35 Helmet Cells Not Reportable 02/05/20 04:35 Vu[place] Bodies Not Reportable 02/05/20 04:35 Wray Rings Not Reportable 02/05/20 04:35 Karen Cells Not Reportable 02/05/20 04:35 Bite Cells Not Reportable 02/05/20 04:35 Crenated Cell Not Reportable 02/05/20 04:35 Elliptocytes Not Reportable 02/05/20 04:35 Acanthocytes (Spur) Not Reportable 02/05/20 04:35 Rouleaux Not Reportable 02/05/20 04:35 Hemoglobin C Crystals Not Reportable 02/05/20 04:35 Schistocytes Not Reportable 02/05/20 04:35 Malaria parasites Not Reportable 02/05/20 04:35 Ney Bodies Not Reportable 02/05/20 04:35 Hem Pathologist Commnt No 02/05/20 04:35 PT 15.6 Sec. (12.2-14.9) H 01/09/20 12:55 INR 1.22 (0.87-1.13) H 01/09/20 12:55 APTT 31.5 Sec. (24.2-36.6) 01/09/20 12:55 D-Dimer 2379 ng/mlDDU (0-234) H 01/28/20 04:34 Heparin Anti-Xa Level 0.77 U.I./ml (0.3-0.7) H 02/02/20 05:44 ABG pH 7.327 pH Units (7.350-7.450) L 02/05/20 04:14 ABG pCO2 58.9 mm Hg 02/05/20 04:14 ABG pO2 75.5 mm Hg (80.0-90.0) L 02/05/20 04:14 ABG HCO3 30.1 mmol/L (20.0-26.0) H 02/05/20 04:14 ABG O2 Saturation 96.2 % (95.0-99.0) 02/05/20 04:14 ABG O2 Content 11.1 (0.0-44) 02/05/20 04:14 ABG Base Excess 3.5 mmol/L (-2.0-3.0) H 02/05/20 04:14 ABG Hemoglobin 8.4 gm/dl (12.0-16.0) L 02/05/20 04:14 ABG Carboxyhemoglobin 2.0 % (0.0-5.0) 02/05/20 04:14 ABG Methemoglobin 0.5 % (0.0-1.5) 02/05/20 04:14 Oxyhemoglobin 93.8 % (95.0-99.0) L 02/05/20 04:14 FiO2 50 % 02/05/20 04:14 Sodium 134 mmol/L (137-145) L 02/05/20 04:35 Potassium 3.3 mmol/L (3.6-5.0) L 02/05/20 04:35 Chloride 97.3 mmol/L (98-107) L 02/05/20 04:35 Carbon Dioxide 27 mmol/L (22-30) 02/05/20 04:35 Anion Gap 13 mmol/L 02/05/20 04:35 BUN 38 mg/dL (7-17) H 02/05/20 04:35 Creatinine 2.2 mg/dL (0.7-1.2) H 02/05/20 04:35 Estimated GFR 27 ml/min 02/05/20 04:35 BUN/Creatinine Ratio 17 % 02/05/20 04:35 Glucose 187 mg/dL (65-100) H 02/05/20 04:35 POC Glucose 196 (70-105) H 02/05/20 05:16 Hemoglobin A1c 5.0 % (4-6) 01/10/20 06:54 Calcium 8.1 mg/dL (8.4-10.2) L 02/05/20 04:35 Phosphorus 3.30 mg/dL (2.5-4.5) 01/12/20 16:01 Magnesium 2.00 mg/dL (1.7-2.3) 01/13/20 06:11 Ferritin > 2000.0 ng/mL (13.0-400.0) H 01/28/20 04:34 Total Bilirubin 0.50 mg/dL (0.1-1.2) 02/02/20 05:44 Direct Bilirubin 0.3 mg/dL (0-0.2) H 02/02/20 05:44 Indirect Bilirubin 0.2 mg/dL 02/02/20 05:44 AST 179 units/L (5-40) H 02/02/20 05:44 ALT 106 units/L (7-56) H 02/02/20 05:44 Alkaline Phosphatase 557 units/L (35-129) H 02/02/20 05:44 Lactate Dehydrogenase 434 units/L (91-180) H 01/28/20 04:34 Troponin T 0.315 ng/mL (0.00-0.029) H* 01/10/20 06:54 C-Reactive Protein 9.70 mg/dL (0.00-1.30) H 01/28/20 04:34 NT-Pro-B Natriuret Pep 29540 pg/mL (0-900) H 01/09/20 12:55 Total Protein 6.1 g/dL (6.3-8.2) L 02/02/20 05:44 Albumin 2.3 g/dL (3.9-5) L 02/02/20 05:44 Albumin/Globulin Ratio 0.6 % 02/02/20 05:44 Triglycerides 56 mg/dL (2-149) 01/30/20 04:04 Cholesterol 123 mg/dL (50-199) 01/09/20 12:55 LDL Cholesterol Direct 66 mg/dL (50-130) 01/09/20 12:55 HDL Cholesterol 47 mg/dL (40-59) 01/09/20 12:55 Cholesterol/HDL Ratio 2.61 % 01/09/20 12:55 Hepatitis A IgM Ab Non-reactive (NonReactive) 01/21/20 23:40 Hep Bs Antigen Non-reactive (Negative) 01/21/20 23:40 Hep B Core IgM Ab Non-reactive (NonReactive) 01/21/20 23:40 Hepatitis C Antibody Non-reactive (NonReactive) 01/21/20 23:40 Miscellaneous Test See scanned result 01/11/20 Unknown Miscellaneous Test See scanned result 01/11/20 Unknown Blood Type O POSITIVE 02/04/20 10:47 Antibody Screen Negative 02/04/20 10:47 Crossmatch See Detail 02/04/20 10:47 Microbiology: Microbiology 02/04/20 Unknown Peripheral/Venous Blood Culture - Preliminary Culture in Progress 02/04/20 Unknown Peripheral/Venous Blood Culture - Preliminary Culture in Progress Pleitez/IV: Voiding Method Toilet IV Catheter Type [Left Chest] Infusaport IV Catheter Type [Right Peripheral IV External Jugular] IV Catheter Type [Left INT / Saline Lock External Jugular] IV Catheter Type [Left Upper IVAD / Port arm] Active Medications - Current Medications Current Medications: Generic Name Dose Route Start Last Admin Trade Name Freq PRN Reason Stop Dose Admin Acetaminophen 650 mg 01/09/20 16:33 02/05/20 05:58 Tylenol PO 650 mg Q4H PRN Administration Pain MILD(1-3)/Fever >100.5/MEANS Lipase/Protease/Amylase 1 each 01/23/20 14:[address] 10,500 Unit FEEDTUBE PRN PRN For Clogged Feeding Tube Atorvastatin Calcium 40 mg 01/09/20 22:00 02/04/20 21:15 Lipitor PO 40 mg QHS PHILLY Administration Dextrose 50 ml 01/23/20 07:26 02/02/20 11:33 D50w (25gm) Syringe IV 50 ml Q30MIN PRN Administration BLOOD GLUCOSE < 70 Dextrose 25 ml 01/24/20 08:58 01/24/20 13:41 D50w (25gm) Syringe IV 25 ml Q4H PRN Administration BG < 80 MG/DL Docusate Sodium 100 mg 01/25/20 22:00 02/04/20 21:15 Colace PO 100 mg BID PHILLY Administration Enoxaparin Sodium 80 mg 01/23/20 12:00 02/04/20 09:57 Enoxaparin SUB-Q 80 mg Q24HR PHILLY Administration Epoetin Helio 20,000 unit 02/04/20 12:00 02/04/20 13:00 Procrit SUB-Q 20,000 unit SILVERIO PHILLY Administration Famotidine 20 mg 01/09/20 22:00 02/04/20 09:58 Pepcid PO 20 mg DAILY PHILLY Administration Norepinephrine 4 mg in 250 mls @ 7.5 mls/hr 01/21/20 18:00 02/04/20 15:51 Levophed Drip 4 Mg/Ns 250 Ml IV 0 mcg/min TITR PHILLY 0 mls/hr Titration Protocol 2 MCG/MIN Propofol 1,000 mg in 100 mls @ 2.265 mls/hr 01/22/20 09:00 01/30/20 14:25 Diprivan 10 Mg/Ml IV 0 mcg/kg/min TITR PHILLY 0 mls/hr Titration Protocol 5 MCG/KG/MIN Sodium Chloride 100 mls @ 999 mls/hr 02/01/20 09:47 Nacl 0.9% IV SILVERIO PRN Hypotension Cefepime HCl 1 gm in 100 mls @ 200 mls/hr 02/04/20 14:00 02/04/20 15:00 Cefepime/Ns 1 Gm/100 Ml IV Infused Q24HR PHILLY Infusion Protocol Fluconazole 200 mg in 100 mls @ 100 mls/hr 02/04/20 13:00 02/04/20 14:30 Diflucan IV Infused Q24HR [facility] Infusion Protocol Lorazepam 2 mg 01/23/20 15:36 Ativan IV Q10MIN PRN Agitation Ondansetron HCl 4 mg 01/09/20 16:33 01/20/20 10:19 Zofran IV 4 mg Q8H PRN Administration Nausea And Vomiting Simple Syrup 15 ml 01/23/20 14:28 Simple Syrup FEEDTUBE PRN PRN Hypoglycemia Simple Syrup 30 ml 01/23/20 14:28 Simple Syrup FEEDTUBE PRN PRN Hypoglycemia Sodium Bicarbonate 325 mg 01/23/20 14:28 Sodium Bicarbonate FEEDTUBE PRN PRN For Clogged Feeding Tube Sodium Chloride 10 ml 01/09/20 22:00 02/04/20 21:15 Sodium Chloride Flush Syringe 10 Ml IV 10 ml BID PHILLY Administration Sodium Chloride 10 ml 01/09/20 16:33 Sodium Chloride Flush Syringe 10 Ml IV PRN PRN LINE FLUSH Valsartan 80 mg 01/10/20 10:00 02/04/20 09:52 Diovan PO Not Given DAILY [facility] Nutrition/Malnutrition Assess - Dietary Evaluation Nutrition/Malnutrition Findings: Nutrition Notes Start: 01/17/20 13:49 Freq: Status: Active Protocol: Document 02/04/20 13:51 LM (Rec: 02/04/20 13:56 LM [email or web address]) Nutrition Notes Initial or Follow up Reassessment Current Diagnosis CKD (stage V CKD),Diabetes, Hypertension,Heart Failure, Respiratory Failure Other Pertinent Diagnosis on HD, Bilat pneu, COVID-19 (+ ) Current Diet Nepro 1.8 at 35ml/hr Labs/Tests Na 135 BUN 63 Cr 4.1 BG 156 Pertinent Medications Levophed Height 5 ft 6 in Weight 78 kg [place] Body Weight (kg) 59.09 BMI 27.7 Subjective/Other Information Nepro running at goal rate and pt is tolerating. Percent of energy/protein needs met: 94%/75% Burn Absent Trauma Absent Current % PO Negligible Minimum of two criteria Yes Fluid Accumulation Mild (non-severe) Reduced Cotton Seed Culler Strength Measurably Reduced (severe) #1 Nutrition Diagnosis Malnutrition Diagnosis Progress(for reassessment Continues documentation) Is patient on ventilator? No Is Patient Ambulatory and/or Out of Bed No REE-(Tama-St. Jeor-confined to bed) [phone] Calculation Used for Recommendations [facility] Additional Notes Protein: 91-151g (1.2-2g/kg) Fluid: per MD Nutrition Intervention Change Diet Order: Continue TF Nutrition Support: Nepro 1.8 at 35ml/hr (goal rate) Flush 50ml q4hr for hyponatremia Flush 150ml q4h once hyponatremia resolves Kcal 1,512 Protein (gm) 68 Fluid (mL) 611 Goal #1 TF tolerance Goal #2 Meet at least 75% of energy and protein needs via TF Anticipated Discharge Needs: unable to determine at this time Follow-Up By: 02/07/20 Additional Comments F/U for TF tolerance, Na lab
--- NOTE | 2020-02-05 10:43 | Progress Note ---
Assessment and Plan - Patient Problems (1) End stage renal disease on dialysis Current Visit: No Status: Chronic Plan to address problem: continue HD on MWF schedule. vasopressor support during HD prn to maintain MAP > 65mmhg (2) Pneumonia due to COVID-19 virus Current Visit: Yes Status: Acute Plan to address problem: continue treatment per infectious disease. (3) Acute respiratory failure with hypoxia Current Visit: No Status: Acute Plan to address problem: ventilator management by pulmonary/violin tutor (4) Volume overload Current Visit: Yes Status: Acute Qualifiers: Plan to address problem: Fluid status improved with HD (5) Hyponatremia Current Visit: No Status: Acute Plan to address problem: improving with optimizing volume status with HD. 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 (8) Anemia in CKD (chronic kidney disease) Current Visit: Yes Status: Acute Qualifiers: Chronic kidney disease stage: on chronic dialysis Qualified Code(s): N18.6 - End stage renal disease; D63.1 - Anemia in chronic kidney disease; Z99.2 - Dependence on renal dialysis Plan to address problem: CLARITA therapy with HD. (9) Secondary hyperparathyroidism (of renal origin) Current Visit: Yes Status: Chronic Subjective Date of service: 02/05/20 Principal diagnosis: Pneumonia Interval history: pt intubated, sedated Objective - Vital Signs Vital signs: Vital Signs - 12hr 02/04/20 02/04/20 02/04/20 22:45 23:00 23:15 Temperature Pulse Rate 101 H 98 H 97 H Pulse Rate [ From Monitor] Respiratory 21 23 20 Rate Blood Pressure 105/53 102/50 93/45 O2 Sat by Pulse 100 100 100 Oximetry 02/04/20 02/04/20 02/04/20 23:30 23:35 23:40 Temperature Pulse Rate 99 H 96 H Pulse Rate [ 96 H From Monitor] Respiratory 22 24 Rate Blood Pressure 97/50 O2 Sat by Pulse 99 96 Oximetry 02/04/20 02/04/20 02/05/20 23:45 23:52 00:00 Temperature 99.1 F Pulse Rate 96 H 97 H 96 H Pulse Rate [ From Monitor] Respiratory Rate Blood Pressure 103/44 103/44 105/36 O2 Sat by Pulse 100 100 100 Oximetry 02/05/20 02/05/20 02/05/20 00:15 00:19 00:30 Temperature Pulse Rate 97 H 94 H 97 H Pulse Rate [ From Monitor] Respiratory 24 25 H Rate Blood Pressure 96/42 96/42 99/46 O2 Sat by Pulse 99 98 100 Oximetry 02/05/20 02/05/20 02/05/20 00:45 01:00 01:15 Temperature Pulse Rate 95 H 96 H 94 H Pulse Rate [ From Monitor] Respiratory 23 Rate Blood Pressure 104/47 94/44 92/47 O2 Sat by Pulse 100 99 100 Oximetry 02/05/20 02/05/20 02/05/20 01:30 01:45 02:00 Temperature Pulse Rate 96 H 97 H 94 H Pulse Rate [ From Monitor] Respiratory 24 22 25 H Rate Blood Pressure 101/41 98/48 93/46 O2 Sat by Pulse 99 98 100 Oximetry 02/05/20 02/05/20 02/05/20 02:15 02:30 02:45 Temperature Pulse Rate 98 H 96 H 95 H Pulse Rate [ From Monitor] Respiratory 19 25 H 24 Rate Blood Pressure 105/51 96/44 98/45 O2 Sat by Pulse 99 97 100 Oximetry 02/05/20 02/05/20 02/05/20 03:00 03:15 03:30 Temperature Pulse Rate 93 H 92 H 99 H Pulse Rate [ From Monitor] Respiratory 24 24 24 Rate Blood Pressure 96/43 82/39 82/39 O2 Sat by Pulse 100 96 99 Oximetry 02/05/20 02/05/20 02/05/20 03:40 03:43 03:45 Temperature 101.3 F H Pulse Rate 100 H 99 H Pulse Rate [ 96 H From Monitor] Respiratory 24 25 H Rate Blood Pressure 104/49 O2 Sat by Pulse 96 99 Oximetry 02/05/20 02/05/20 02/05/20 04:00 04:15 04:25 Temperature Pulse Rate 100 H 99 H 99 H Pulse Rate [ From Monitor] Respiratory 27 H 25 H Rate Blood Pressure 107/52 104/51 105/53 O2 Sat by Pulse 98 99 100 Oximetry 02/05/20 02/05/20 02/05/20 04:30 04:45 05:00 Temperature 101.2 F H Pulse Rate 98 H 98 H 99 H Pulse Rate [ From Monitor] Respiratory 26 H 21 24 Rate Blood Pressure 110/52 105/53 109/54 O2 Sat by Pulse 95 100 100 Oximetry 02/05/20 02/05/20 02/05/20 05:15 05:30 08:12 Temperature 99.5 F Pulse Rate 98 H 99 H Pulse Rate [ From Monitor] Respiratory 18 21 Rate Blood Pressure 95/50 109/52 O2 Sat by Pulse 100 100 Oximetry 02/05/20 02/05/20 08:26 08:40 Temperature Pulse Rate 99 H 99 H Pulse Rate [ From Monitor] Respiratory 22 Rate Blood Pressure 109/52 109/52 O2 Sat by Pulse 100 100 Oximetry - General Appearance General appearance: sedated on ventilator, intubated EENT: ATNC, mucous membranes moist Neck: no JVD Respiratory: Present: Decreased Breath Sounds Cardiology: regular, S1S2 Gastrointestinal: normoactive bowel sounds Integumentary: no rash, other (no edema ) Neurologic: other (intubated, sedated ) - Lab 02/05/20 04:35 02/05/20 04:35 Most recent lab results ABG pH 7.327 pH Units (7.350-7.450) L 02/05/20 04:14 ABG pCO2 58.9 mm Hg 02/05/20 04:14 ABG pO2 75.5 mm Hg (80.0-90.0) L 02/05/20 04:14 ABG HCO3 30.1 mmol/L (20.0-26.0) H 02/05/20 04:14 ABG O2 Saturation 96.2 % (95.0-99.0) 02/05/20 04:14 Calcium 8.1 mg/dL (8.4-10.2) L 02/05/20 04:35 Phosphorus 3.30 mg/dL (2.5-4.5) 01/12/20 16:01 Magnesium 2.00 mg/dL (1.7-2.3) 01/13/20 06:11 Medications & Allergies - Medications Allergies/Adverse Reactions: Allergies cheese Allergy (Mild, Verified 12/20/19 10:19) Itching iodine Allergy (Mild, Verified 12/20/19 10:16) Anaphylaxis clonidine Allergy (Verified 12/19/19 04:13) Anaphylaxis shellfish derived Adverse Reaction (Verified 12/19/19 04:13) Angioedema Home Medications: Home Medications Medication Instructions Recorded Confirmed Last Taken Type Atorvastatin [Lipitor] 40 mg PO DAILY 11/06/19 01/13/20 01/02/20 10:00 History Acetaminophen [Acetaminophen 8 650 mg PO Q8H PRN #30 tablet.er 11/21/19 01/13/20 01/03/20 22:00 Rx Hour] Cyclobenzaprine HCl [Flexeril 5 MG 5 mg PO QHS PRN #20 tab 11/21/19 01/13/20 01/01/20 22:00 Rx TAB] HYDROcodone/APAP 5-325 [[place] 1 each PO Q6HR PRN #18 tablet 12/13/19 01/13/20 01/01/20 22:00 Rx 5-325 mg TAB] amLODIPine 10 mg PO DAILY 90 Days #90 tab 12/18/19 01/13/20 01/01/20 10:00 Rx Ibuprofen 800 mg PO TID 12/19/19 01/13/20 01/02/20 22:00 History Magnesium Oxide [Mag-Ox] 400 mg PO QDAY 12/19/19 01/13/20 01/03/20 10:00 History diphenhydrAMINE [Benadryl CAP] 25 mg PO Q8HR PRN 12/19/19 01/13/20 01/03/20 21:00 History labetaloL [Labetalol 100mg TAB] 100 mg PO Q8H #90 tablet 12/21/19 01/13/20 01/02/20 10:00 Rx traMADoL [Ultram 50 MG tab] 50 mg PO Q6HR PRN #20 tablet 12/29/19 01/13/20 12/31/19 10:00 Rx DULoxetine [Cymbalta] 30 mg PO QDAY #30 capsule 01/04/20 01/13/20 Unknown Rx Valsartan [Diovan] 80 mg PO DAILY #30 tablet 01/04/20 01/13/20 Unknown Rx Active Medications: Generic Name Dose Route Start Last Admin Trade Name Freq PRN Reason Stop Dose Admin Acetaminophen 650 mg 01/09/20 16:33 02/05/20 05:58 Tylenol PO 650 mg Q4H PRN Administration Pain MILD(1-3)/Fever >100.5/MEANS Lipase/Protease/Amylase 1 each 01/23/20 14:[address] 10,500 Unit FEEDTUBE PRN PRN For Clogged Feeding Tube Atorvastatin Calcium 40 mg 01/09/20 22:00 02/04/20 21:15 Lipitor PO 40 mg QHS PHILLY Administration Dextrose 50 ml 01/23/20 07:26 02/02/20 11:33 D50w (25gm) Syringe IV 50 ml Q30MIN PRN Administration BLOOD GLUCOSE < 70 Dextrose 25 ml 01/24/20 08:58 01/24/20 13:41 D50w (25gm) Syringe IV 25 ml Q4H PRN Administration BG < 80 MG/DL Docusate Sodium 100 mg 01/25/20 22:00 02/04/20 21:15 Colace PO 100 mg BID PHILLY Administration Enoxaparin Sodium 80 mg 01/23/20 12:00 02/04/20 09:57 Enoxaparin SUB-Q 80 mg Q24HR PHILLY Administration Epoetin Helio 20,000 unit 02/04/20 12:00 02/04/20 13:00 Procrit SUB-Q 20,000 unit SILVERIO PHILLY Administration Famotidine 20 mg 01/09/20 22:00 02/04/20 09:58 Pepcid PO 20 mg DAILY PHILLY Administration Norepinephrine 4 mg in 250 mls @ 7.5 mls/hr 01/21/20 18:00 02/04/20 15:51 Levophed Drip 4 Mg/Ns 250 Ml IV 0 mcg/min TITR PHILLY 0 mls/hr Titration Protocol 2 MCG/MIN Propofol 1,000 mg in 100 mls @ 2.265 mls/hr 01/22/20 09:00 01/30/20 14:25 Diprivan 10 Mg/Ml IV 0 mcg/kg/min TITR PHILLY 0 mls/hr Titration Protocol 5 MCG/KG/MIN Sodium Chloride 100 mls @ 999 mls/hr 02/01/20 09:47 Nacl 0.9% IV SILVERIO PRN Hypotension Cefepime HCl 1 gm in 100 mls @ 200 mls/hr 02/04/20 14:00 02/04/20 15:00 Cefepime/Ns 1 Gm/100 Ml IV Infused Q24HR PHILLY Infusion Protocol Fluconazole 200 mg in 100 mls @ 100 mls/hr 02/04/20 13:00 02/04/20 14:30 Diflucan IV Infused Q24HR PHILLY Infusion Protocol Lorazepam 2 mg 01/23/20 15:36 Ativan IV Q10MIN PRN Agitation Ondansetron HCl 4 mg 01/09/20 16:33 01/20/20 10:19 Zofran IV 4 mg Q8H PRN Administration Nausea And Vomiting Simple Syrup 15 ml 01/23/20 14:28 Simple Syrup FEEDTUBE PRN PRN Hypoglycemia Simple Syrup 30 ml 01/23/20 14:28 Simple Syrup FEEDTUBE PRN PRN Hypoglycemia Sodium Bicarbonate 325 mg 01/23/20 14:28 Sodium Bicarbonate FEEDTUBE PRN PRN For Clogged Feeding Tube Sodium Chloride 10 ml 01/09/20 22:00 02/04/20 21:15 Sodium Chloride Flush Syringe 10 Ml IV 10 ml BID PHILLY Administration Sodium Chloride 10 ml 01/09/20 16:33 Sodium Chloride Flush Syringe 10 Ml IV PRN PRN LINE FLUSH Valsartan 80 mg 01/10/20 10:00 02/04/20 09:52 Diovan PO Not Given DAILY PHILLY
[2020-02-05] MEDS: FLUCONAZOLE 200 MG 200 MG/100 ML BAG IV SCH (12:43)
[2020-02-05] MEDS: ENOXAPARIN 80 MG/0.8 ML INJ SUB-Q SCH (12:44)
[2020-02-05] MEDS: FAMOTIDINE 20 MG TAB PO SCH (12:45)
[2020-02-05] MEDS: DOCUSATE SODIUM 100 MG/10 ML ORAL LIQD PO SCH ×2 (12:46→22:43)
[2020-02-05] MEDS: VALSARTAN 40 MG TAB PO SCH (12:48)
--- NOTE | 2020-02-05 13:17 | Progress Note ---
Assessment and Plan Cultures: 01/10/2020 blood culture: No growth 01/21/2020 sputum culture: No growth 01/25/2020 blood culture: No growth 02/04/2020 blood culture: in process A/P: #Sepsis with shock: likely due to severe COVID pneumonia. Completed empiric Cefepime x 5 days. Now back on antibiotics. #Severe COVID pneumonia: very elevated inflammatory markers. S/p ivermectin x 1 on 01/21/2020 (off label use). S/p hydroxychloroquine with zinc x 5 days. #Acute hypoxic resp failure: intubated, on the vent #ESRD on HD #Thrombocytopenia: resolved #Elevated LFTs: etiology unclear. Bilirubin is normal. Alk phos and transaminases elevated. RUQ US showed no gall bladder, CBD appeared normal. Recs: continue empiric abx: Cefepime, Vancomycin + Fluconazole renally adjusted if fevers persistent and if cultures remain negative with no source of infection identified, may consider steroids. Will check inflammatory markers for COVID-19 disease Slava Hannon MD, FACP [facility] ([facility] C: [phone] O: [phone] F: [phone] Subjective Date of service: 02/05/20 Principal diagnosis: Pneumonia Interval history: Febrile. Remains intubated, on the vent. Weaned off pressors. Objective - Exam Narrative Exam: Physical Exam (reviewed in chart due to PPE conservation) Constitutional: intubated, on the vent Head, Ears, Nose: normocephalic, atraumatic Eyes: limited due to PPE conservation strategy Neck: intubated Oral: intubated Cardiovascular: limited due to PPE conservation strategy Respiratory: limited due to PPE conservation strategy GI: limited due to PPE conservation strategy Musculoskeletal: limited due to PPE conservation strategy Skin: limited due to PPE conservation strategy Hem/Lymphatic: limited due to PPE conservation strategy Psych: no agitation Neurological: intubated, on the vent, exam limited - Constitutional Vitals: Vital Signs Temp Pulse Resp BP Pulse Ox 98.1 F 96 H 21 109/52 100 02/05/20 12:00 02/05/20 11:28 02/05/20 11:28 02/05/20 11:28 02/05/20 11:28 Temperature -Last 24 Hours Temperature 98.1 F Temperature 99.5 F Temperature 101.2 F Temperature 101.3 F Temperature 99.1 F Temperature 100.7 F Temperature 97.9 F - Labs CBC & Chem 7: 02/05/20 04:35 02/05/20 04:35 Labs: Abnormal lab results 02/04/20 02/05/20 02/05/20 Range/Units 18:44 00:43 04:14 WBC (4.5-11.0) K/mm3 RBC (3.65-5.03) M/mm3 Hgb (10.1-14.3) gm/dl Hct (30.3-42.9) % RDW (13.2-15.2) % Seg Neuts % (Manual) (40.0-70.0) % Lymphocytes % (Manual) (13.4-35.0) % Seg Neutrophils # Man (1.8-7.7) K/mm3 Lymphocytes # (Manual) (1.2-5.4) K/mm3 Eosinophils # (Manual) (0.0-0.4) K/mm3 ABG pH 7.327 L (7.350-7.450) pH Units ABG pO2 75.5 L (80.0-90.0) mm Hg ABG HCO3 30.1 H (20.0-26.0) mmol/L ABG Base Excess 3.5 H (-2.0-3.0) mmol/L ABG Hemoglobin 8.4 L (12.0-16.0) gm/dl Oxyhemoglobin 93.8 L (95.0-99.0) % Sodium (137-145) mmol/L Potassium (3.6-5.0) mmol/L Chloride (98-107) mmol/L BUN (7-17) mg/dL Creatinine (0.7-1.2) mg/dL Glucose (65-100) mg/dL POC Glucose 143 H 163 H (70-105) Calcium (8.4-10.2) mg/dL 02/05/20 02/05/20 02/05/20 Range/Units 04:35 04:35 05:16 WBC 24.4 H (4.5-11.0) K/mm3 RBC 2.75 L (3.65-5.03) M/mm3 Hgb 7.9 L (10.1-14.3) gm/dl Hct 25.2 L (30.3-42.9) % RDW 18.1 H (13.2-15.2) % Seg Neuts % (Manual) 96.0 H (40.0-70.0) % Lymphocytes % (Manual) 1.0 L (13.4-35.0) % Seg Neutrophils # Man 23.4 H (1.8-7.7) K/mm3 Lymphocytes # (Manual) 0.2 L (1.2-5.4) K/mm3 Eosinophils # (Manual) 0.5 H (0.0-0.4) K/mm3 ABG pH (7.350-7.450) pH Units ABG pO2 (80.0-90.0) mm Hg ABG HCO3 (20.0-26.0) mmol/L ABG Base Excess (-2.0-3.0) mmol/L ABG Hemoglobin (12.0-16.0) gm/dl Oxyhemoglobin (95.0-99.0) % Sodium 134 L (137-145) mmol/L Potassium 3.3 L (3.6-5.0) mmol/L Chloride 97.3 L (98-107) mmol/L BUN 38 H (7-17) mg/dL Creatinine 2.2 H (0.7-1.2) mg/dL Glucose 187 H (65-100) mg/dL POC Glucose 196 H (70-105) Calcium 8.1 L (8.4-10.2) mg/dL 02/05/20 Range/Units 12:17 WBC (4.5-11.0) K/mm3 RBC (3.65-5.03) M/mm3 Hgb (10.1-14.3) gm/dl Hct (30.3-42.9) % RDW (13.2-15.2) % Seg Neuts % (Manual) (40.0-70.0) % Lymphocytes % (Manual) (13.4-35.0) % Seg Neutrophils # Man (1.8-7.7) K/mm3 Lymphocytes # (Manual) (1.2-5.4) K/mm3 Eosinophils # (Manual) (0.0-0.4) K/mm3 ABG pH (7.350-7.450) pH Units ABG pO2 (80.0-90.0) mm Hg ABG HCO3 (20.0-26.0) mmol/L ABG Base Excess (-2.0-3.0) mmol/L ABG Hemoglobin (12.0-16.0) gm/dl Oxyhemoglobin (95.0-99.0) % Sodium (137-145) mmol/L Potassium (3.6-5.0) mmol/L Chloride (98-107) mmol/L BUN (7-17) mg/dL Creatinine (0.7-1.2) mg/dL Glucose (65-100) mg/dL POC Glucose 174 H (70-105) Calcium (8.4-10.2) mg/dL
--- NOTE | 2020-02-05 14:06 | Progress Note ---
Assessment and Plan 64 y/o female with COVID positive, viral pneumonia with some pulmonary vascular congestion superimposed. 1. Continue PSV trials. Asked RT to attempt to drop PEEP to 6. They have not been able to do this. 2. HD per renal, likely tomorrow. UF is definitely helping as changes can be seen in CXR. 3. Changed back to prophylactic dosing for VTE as not confirmed the presence of VTE 4. Overall prognosis is guarded to poor, especially with prior history of ESRD on HD. Continue supportive care. IMS spoke with who has made patient a DNR. I have signed. Hopeful she can pull through but do agree with DNR status given evidence of increased mortality throughout [place] from this novel [place] virus. Spoke with IMS again as they will speak with today. Hopeful he will continue as she has made improvements. Please continue daily PSV's, hoping her mental state will improve and she will clear the sedation and be extubated. Otherwise consider trach and peg and follow up from there. Will speak with CM about this. CCT 31 minutes. Subjective Date of service: 02/05/20 Principal diagnosis: Pneumonia Interval history: No acute events. Still on 8 of PEEP and 50%. Objective Vital Signs - 12hr 02/05/20 02/05/20 02/05/20 02:00 02:15 02:30 Temperature Pulse Rate 94 H 98 H 96 H Pulse Rate [ From Monitor] Respiratory 25 H 19 25 H Rate Blood Pressure 93/46 105/51 96/44 O2 Sat by Pulse 100 99 97 Oximetry 02/05/20 02/05/20 02/05/20 02:45 03:00 03:15 Temperature Pulse Rate 95 H 93 H 92 H Pulse Rate [ From Monitor] Respiratory 24 24 24 Rate Blood Pressure 98/45 96/43 82/39 O2 Sat by Pulse 100 100 96 Oximetry 02/05/20 02/05/20 02/05/20 03:30 03:40 03:43 Temperature 101.3 F H Pulse Rate 99 H 100 H Pulse Rate [ 96 H From Monitor] Respiratory 24 24 Rate Blood Pressure 82/39 O2 Sat by Pulse 99 96 Oximetry 02/05/20 02/05/20 02/05/20 03:45 04:00 04:15 Temperature Pulse Rate 99 H 100 H 99 H Pulse Rate [ From Monitor] Respiratory 25 H 27 H 25 H Rate Blood Pressure 104/49 107/52 104/51 O2 Sat by Pulse 99 98 99 Oximetry 02/05/20 02/05/20 02/05/20 04:25 04:30 04:45 Temperature Pulse Rate 99 H 98 H 98 H Pulse Rate [ From Monitor] Respiratory 26 H 21 Rate Blood Pressure 105/53 110/52 105/53 O2 Sat by Pulse 100 95 100 Oximetry 02/05/20 02/05/20 02/05/20 05:00 05:15 05:30 Temperature 101.2 F H Pulse Rate 99 H 98 H 99 H Pulse Rate [ From Monitor] Respiratory 24 18 21 Rate Blood Pressure 109/54 95/50 109/52 O2 Sat by Pulse 100 100 100 Oximetry 02/05/20 02/05/20 02/05/20 08:12 08:26 08:40 Temperature 99.5 F Pulse Rate 99 H 99 H Pulse Rate [ From Monitor] Respiratory 22 Rate Blood Pressure 109/52 109/52 O2 Sat by Pulse 100 100 Oximetry 02/05/20 02/05/20 11:28 12:00 Temperature 98.1 F Pulse Rate 96 H Pulse Rate [ From Monitor] Respiratory 21 Rate Blood Pressure 109/52 O2 Sat by Pulse 100 Oximetry Constitutional: other (orally intubated, not sedated currently on vent. on AC 450 50) Eyes: non-icteric ENT: oropharynx moist Neck: supple Effort: normal Ascultation: Bilateral: rales Cardiovascular: regular rate and rhythm (no mrg) Gastrointestinal: normoactive bowel sounds, soft, non-tender, non-distended Integumentary: normal Extremities: no cyanosis, no edema, pink and warm Neurologic: unable to assess Psychiatric: mood appropriate, affect normal CBC and BMP: 02/05/20 04:35 02/05/20 04:35 ABG, PT/INR, D-dimer: ABG ABG pH 7.327 pH Units (7.350-7.450) L 02/05/20 04:14 ABG pCO2 58.9 mm Hg 02/05/20 04:14 ABG pO2 75.5 mm Hg (80.0-90.0) L 02/05/20 04:14 ABG O2 Saturation 96.2 % (95.0-99.0) 02/05/20 04:14 PT/INR, D-dimer PT 15.6 Sec. (12.2-14.9) H 01/09/20 12:55 INR 1.22 (0.87-1.13) H 01/09/20 12:55 D-Dimer 2379 ng/mlDDU (0-234) H 01/28/20 04:34 Abnormal lab findings: Abnormal Labs 01/09/20 01/09/20 01/09/20 12:55 12:55 12:55 WBC 4.4 L RBC 3.44 L Hgb Hct MCV RDW 17.0 H Plt Count Lymph % (Auto) 6.8 L [place] % (Auto) 13.6 H Lymph # 0.3 L Seg Neutrophils % 79.0 H Seg Neuts % (Manual) Lymphocytes % (Manual) Nucleated RBC % Seg Neutrophils # Man Lymphocytes # (Manual) Monocytes # (Manual) Eosinophils # (Manual) PT 15.6 H INR 1.22 H D-Dimer Heparin Anti-Xa Level ABG pH ABG pO2 ABG HCO3 ABG O2 Saturation ABG Base Excess ABG Hemoglobin Oxyhemoglobin Sodium 130 L Potassium Chloride 88.9 L Carbon Dioxide 20 L BUN 41 H Creatinine 7.6 H Glucose 115 H POC Glucose Calcium Magnesium Ferritin Direct Bilirubin AST ALT Alkaline Phosphatase 153 H Lactate Dehydrogenase Troponin T 0.382 H* C-Reactive Protein NT-Pro-B Natriuret Pep 45968 H Total Protein Albumin 3.2 L Crossmatch 01/09/20 01/10/20 01/10/20 20:14 00:16 06:54 WBC 3.3 L RBC 3.00 L Hgb 9.2 L Hct 27.8 L MCV RDW 17.2 H Plt Count Lymph % (Auto) 8.9 L [place] % (Auto) 11.5 H Lymph # 0.3 L Seg Neutrophils % 79.1 H Seg Neuts % (Manual) Lymphocytes % (Manual) Nucleated RBC % Seg Neutrophils # Man Lymphocytes # (Manual) Monocytes # (Manual) Eosinophils # (Manual) PT INR D-Dimer Heparin Anti-Xa Level ABG pH ABG pO2 ABG HCO3 ABG O2 Saturation ABG Base Excess ABG Hemoglobin Oxyhemoglobin Sodium Potassium Chloride Carbon Dioxide BUN Creatinine Glucose POC Glucose Calcium Magnesium Ferritin Direct Bilirubin AST ALT Alkaline Phosphatase Lactate Dehydrogenase Troponin T 0.349 H* 0.328 H* C-Reactive Protein NT-Pro-B Natriuret Pep Total Protein Albumin Crossmatch 01/10/20 01/10/20 01/11/20 06:54 06:54 16:45 WBC RBC Hgb Hct MCV RDW Plt Count Lymph % (Auto) [place] % (Auto) Lymph # Seg Neutrophils % Seg Neuts % (Manual) Lymphocytes % (Manual) Nucleated RBC % Seg Neutrophils # Man Lymphocytes # (Manual) Monocytes # (Manual) Eosinophils # (Manual) PT INR D-Dimer Heparin Anti-Xa Level ABG pH ABG pO2 ABG HCO3 ABG O2 Saturation ABG Base Excess ABG Hemoglobin Oxyhemoglobin Sodium 133 L Potassium Chloride 90.6 L Carbon Dioxide BUN 50 H Creatinine 8.4 H Glucose 101 H POC Glucose 106 H Calcium 8.1 L Magnesium Ferritin Direct Bilirubin AST ALT Alkaline Phosphatase 148 H Lactate Dehydrogenase Troponin T 0.315 H* C-Reactive Protein NT-Pro-B Natriuret Pep Total Protein 5.4 L Albumin 2.7 L Crossmatch 01/12/20 01/13/20 01/13/20 16:01 06:11 06:11 WBC 3.1 L RBC 3.25 L Hgb 9.8 L Hct MCV RDW 17.2 H Plt Count 136 L Lymph % (Auto) [place] % (Auto) Lymph # Seg Neutrophils % Seg Neuts % (Manual) Lymphocytes % (Manual) Nucleated RBC % Seg Neutrophils # Man Lymphocytes # (Manual) Monocytes # (Manual) Eosinophils # (Manual) PT INR D-Dimer Heparin Anti-Xa Level ABG pH ABG pO2 ABG HCO3 ABG O2 Saturation ABG Base Excess ABG Hemoglobin Oxyhemoglobin Sodium 135 L Potassium Chloride 93.4 L Carbon Dioxide BUN 19 H Creatinine 4.5 H Glucose 120 H POC Glucose Calcium 7.8 L Magnesium 1.40 L Ferritin Direct Bilirubin AST ALT Alkaline Phosphatase Lactate Dehydrogenase Troponin T C-Reactive Protein NT-Pro-B Natriuret Pep Total Protein Albumin Crossmatch 01/16/20 01/16/20 01/16/20 08:35 11:49 14:11 WBC RBC Hgb Hct MCV RDW Plt Count Lymph % (Auto) [place] % (Auto) Lymph # Seg Neutrophils % Seg Neuts % (Manual) Lymphocytes % (Manual) Nucleated RBC % Seg Neutrophils # Man Lymphocytes # (Manual) Monocytes # (Manual) Eosinophils # (Manual) PT INR D-Dimer Heparin Anti-Xa Level ABG pH ABG pO2 48.4 L ABG HCO3 30.5 H ABG O2 Saturation 81.9 L ABG Base Excess 4.6 H ABG Hemoglobin 10.5 L Oxyhemoglobin 80.1 L Sodium Potassium Chloride Carbon Dioxide BUN Creatinine Glucose POC Glucose 126 H 119 H Calcium Magnesium Ferritin Direct Bilirubin AST ALT Alkaline Phosphatase Lactate Dehydrogenase Troponin T C-Reactive Protein NT-Pro-B Natriuret Pep Total Protein Albumin Crossmatch 01/16/20 01/16/20 01/16/20 15:38 15:38 15:38 WBC RBC Hgb Hct MCV RDW Plt Count Lymph % (Auto) [place] % (Auto) Lymph # Seg Neutrophils % Seg Neuts % (Manual) Lymphocytes % (Manual) Nucleated RBC % Seg Neutrophils # Man Lymphocytes # (Manual) Monocytes # (Manual) Eosinophils # (Manual) PT INR D-Dimer 1104.64 H Heparin Anti-Xa Level ABG pH ABG pO2 ABG HCO3 ABG O2 Saturation ABG Base Excess ABG Hemoglobin Oxyhemoglobin Sodium Potassium Chloride Carbon Dioxide BUN Creatinine Glucose POC Glucose Calcium Magnesium Ferritin > 2000.0 H Direct Bilirubin AST ALT Alkaline Phosphatase Lactate Dehydrogenase 690 H Troponin T C-Reactive Protein 24.10 H NT-Pro-B Natriuret Pep Total Protein Albumin Crossmatch 01/16/20 01/18/20 01/18/20 18:11 06:25 06:25 WBC RBC 3.15 L Hgb 9.4 L Hct 29.4 L MCV RDW 17.5 H Plt Count 135 L Lymph % (Auto) 3.8 L [place] % (Auto) Lymph # 0.2 L Seg Neutrophils % 88.8 H Seg Neuts % (Manual) Lymphocytes % (Manual) Nucleated RBC % Seg Neutrophils # Man Lymphocytes # (Manual) Monocytes # (Manual) Eosinophils # (Manual) PT INR D-Dimer Heparin Anti-Xa Level ABG pH ABG pO2 ABG HCO3 ABG O2 Saturation ABG Base Excess ABG Hemoglobin Oxyhemoglobin Sodium Potassium Chloride 96.8 L Carbon Dioxide BUN 26 H Creatinine 4.2 H Glucose 115 H POC Glucose 130 H Calcium 8.2 L Magnesium Ferritin Direct Bilirubin AST ALT Alkaline Phosphatase Lactate Dehydrogenase 537 H Troponin T C-Reactive Protein 17.10 H NT-Pro-B Natriuret Pep Total Protein Albumin Crossmatch 01/18/20 01/18/20 01/18/20 06:25 06:25 12:15 WBC RBC Hgb Hct MCV RDW Plt Count Lymph % (Auto) [place] % (Auto) Lymph # Seg Neutrophils % Seg Neuts % (Manual) Lymphocytes % (Manual) Nucleated RBC % Seg Neutrophils # Man Lymphocytes # (Manual) Monocytes # (Manual) Eosinophils # (Manual) PT INR D-Dimer 938.03 H Heparin Anti-Xa Level ABG pH ABG pO2 66.5 L ABG HCO3 30.1 H ABG O2 Saturation 93.2 L ABG Base Excess 4.6 H ABG Hemoglobin 10.0 L Oxyhemoglobin 91.3 L Sodium Potassium Chloride Carbon Dioxide BUN Creatinine Glucose POC Glucose Calcium Magnesium Ferritin 3105.0 H Direct Bilirubin AST ALT Alkaline Phosphatase Lactate Dehydrogenase Troponin T C-Reactive Protein NT-Pro-B Natriuret Pep Total Protein Albumin Crossmatch 01/20/20 01/20/20 01/20/20 07:37 07:37 07:37 WBC RBC Hgb Hct MCV RDW Plt Count Lymph % (Auto) [place] % (Auto) Lymph # Seg Neutrophils % Seg Neuts % (Manual) Lymphocytes % (Manual) Nucleated RBC % Seg Neutrophils # Man Lymphocytes # (Manual) Monocytes # (Manual) Eosinophils # (Manual) PT INR D-Dimer 2072.25 H Heparin Anti-Xa Level ABG pH ABG pO2 ABG HCO3 ABG O2 Saturation ABG Base Excess ABG Hemoglobin Oxyhemoglobin Sodium Potassium Chloride Carbon Dioxide BUN Creatinine Glucose POC Glucose Calcium Magnesium Ferritin 1826.0 H Direct Bilirubin AST ALT Alkaline Phosphatase Lactate Dehydrogenase 496 H Troponin T C-Reactive Protein 19.30 H NT-Pro-B Natriuret Pep Total Protein Albumin Crossmatch 01/20/20 01/21/20 01/21/20 17:30 03:59 17:35 WBC RBC Hgb Hct MCV RDW Plt Count Lymph % (Auto) [place] % (Auto) Lymph # Seg Neutrophils % Seg Neuts % (Manual) Lymphocytes % (Manual) Nucleated RBC % Seg Neutrophils # Man Lymphocytes # (Manual) Monocytes # (Manual) Eosinophils # (Manual) PT INR D-Dimer Heparin Anti-Xa Level ABG pH ABG pO2 61.1 L 67.4 L ABG HCO3 29.9 H 26.2 H ABG O2 Saturation 91.7 L 93.4 L ABG Base Excess 4.9 H ABG Hemoglobin 9.0 L 9.1 L Oxyhemoglobin 89.5 L 91.1 L Sodium 136 L Potassium Chloride Carbon Dioxide BUN 36 H Creatinine 4.9 H Glucose POC Glucose Calcium Magnesium Ferritin Direct Bilirubin AST ALT Alkaline Phosphatase Lactate Dehydrogenase Troponin T C-Reactive Protein NT-Pro-B Natriuret Pep Total Protein Albumin Crossmatch 01/21/20 01/22/20 01/22/20 Unknown 03:41 03:41 WBC RBC Hgb Hct MCV RDW Plt Count Lymph % (Auto) [place] % (Auto) Lymph # Seg Neutrophils % Seg Neuts % (Manual) Lymphocytes % (Manual) Nucleated RBC % Seg Neutrophils # Man Lymphocytes # (Manual) Monocytes # (Manual) Eosinophils # (Manual) PT INR D-Dimer Heparin Anti-Xa Level ABG pH 7.465 H ABG pO2 48.9 L ABG HCO3 26.6 H ABG O2 Saturation 85.7 L ABG Base Excess ABG Hemoglobin 10.4 L Oxyhemoglobin 83.5 L Sodium Potassium Chloride Carbon Dioxide BUN Creatinine Glucose POC Glucose Calcium Magnesium Ferritin 6071.0 H Direct Bilirubin AST ALT Alkaline Phosphatase Lactate Dehydrogenase 963 H Troponin T C-Reactive Protein 30.00 H NT-Pro-B Natriuret Pep Total Protein Albumin Crossmatch 01/22/20 01/22/20 01/22/20 03:41 07:47 11:20 WBC RBC Hgb Hct MCV RDW Plt Count Lymph % (Auto) [place] % (Auto) Lymph # Seg Neutrophils % Seg Neuts % (Manual) Lymphocytes % (Manual) Nucleated RBC % Seg Neutrophils # Man Lymphocytes # (Manual) Monocytes # (Manual) Eosinophils # (Manual) PT INR D-Dimer > 68071 H Heparin Anti-Xa Level ABG pH ABG pO2 66.7 L ABG HCO3 28.7 H ABG O2 Saturation 91.9 L ABG Base Excess ABG Hemoglobin 9.1 L Oxyhemoglobin 89.5 L Sodium Potassium Chloride 94.3 L Carbon Dioxide BUN 53 H Creatinine 6.5 H Glucose POC Glucose Calcium Magnesium Ferritin Direct Bilirubin AST ALT Alkaline Phosphatase Lactate Dehydrogenase Troponin T C-Reactive Protein NT-Pro-B Natriuret Pep Total Protein Albumin Crossmatch 01/22/20 01/22/20 01/23/20 11:49 Unknown 04:55 WBC 15.1 H RBC 3.05 L Hgb 8.8 L Hct 28.3 L MCV RDW 17.8 H Plt Count 125 L Lymph % (Auto) [place] % (Auto) Lymph # Seg Neutrophils % Seg Neuts % (Manual) Lymphocytes % (Manual) Nucleated RBC % Seg Neutrophils # Man Lymphocytes # (Manual) Monocytes # (Manual) Eosinophils # (Manual) PT INR D-Dimer Heparin Anti-Xa Level ABG pH 7.340 L ABG pO2 77.7 L 136.3 H ABG HCO3 27.6 H 28.8 H ABG O2 Saturation ABG Base Excess ABG Hemoglobin 9.3 L 10.9 L Oxyhemoglobin 94.2 L Sodium Potassium Chloride Carbon Dioxide BUN Creatinine Glucose POC Glucose Calcium Magnesium Ferritin Direct Bilirubin AST ALT Alkaline Phosphatase Lactate Dehydrogenase Troponin T C-Reactive Protein NT-Pro-B Natriuret Pep Total Protein Albumin Crossmatch 01/23/20 01/23/20 01/23/20 06:23 07:07 12:23 WBC RBC Hgb Hct MCV RDW Plt Count Lymph % (Auto) [place] % (Auto) Lymph # Seg Neutrophils % Seg Neuts % (Manual) Lymphocytes % (Manual) Nucleated RBC % Seg Neutrophils # Man Lymphocytes # (Manual) Monocytes # (Manual) Eosinophils # (Manual) PT INR D-Dimer Heparin Anti-Xa Level ABG pH ABG pO2 ABG HCO3 ABG O2 Saturation ABG Base Excess ABG Hemoglobin Oxyhemoglobin Sodium Potassium Chloride Carbon Dioxide BUN Creatinine Glucose POC Glucose 57 L 127 H 131 H Calcium Magnesium Ferritin Direct Bilirubin AST ALT Alkaline Phosphatase Lactate Dehydrogenase Troponin T C-Reactive Protein NT-Pro-B Natriuret Pep Total Protein Albumin Crossmatch 01/23/20 01/23/20 01/24/20 Unknown Unknown 04:00 WBC 16.2 H RBC 3.08 L Hgb 8.9 L Hct 28.6 L MCV RDW 17.8 H Plt Count 139 L Lymph % (Auto) [place] % (Auto) Lymph # Seg Neutrophils % Seg Neuts % (Manual) Lymphocytes % (Manual) Nucleated RBC % Seg Neutrophils # Man Lymphocytes # (Manual) Monocytes # (Manual) Eosinophils # (Manual) PT INR D-Dimer Heparin Anti-Xa Level < 0.10 L ABG pH ABG pO2 ABG HCO3 ABG O2 Saturation ABG Base Excess ABG Hemoglobin Oxyhemoglobin Sodium Potassium Chloride Carbon Dioxide BUN Creatinine Glucose POC Glucose Calcium Magnesium Ferritin 4195.0 H Direct Bilirubin AST ALT Alkaline Phosphatase Lactate Dehydrogenase Troponin T C-Reactive Protein NT-Pro-B Natriuret Pep Total Protein Albumin Crossmatch 04/09/20 04/09/20 04/09/20 04:00 04:00 04:00 WBC RBC Hgb Hct MCV RDW Plt Count Lymph % (Auto) [place] % (Auto) Lymph # Seg Neutrophils % Seg Neuts % (Manual) Lymphocytes % (Manual) Nucleated RBC % Seg Neutrophils # Man Lymphocytes # (Manual) Monocytes # (Manual) Eosinophils # (Manual) PT INR D-Dimer 5783.11 H Heparin Anti-Xa Level ABG pH 7.188 L* ABG pO2 70.8 L ABG HCO3 32.2 H ABG O2 Saturation 90.4 L ABG Base Excess ABG Hemoglobin 8.5 L Oxyhemoglobin 88.1 L Sodium Potassium Chloride Carbon Dioxide BUN Creatinine Glucose POC Glucose Calcium Magnesium Ferritin Direct Bilirubin AST ALT Alkaline Phosphatase Lactate Dehydrogenase 474 H Troponin T C-Reactive Protein 29.80 H NT-Pro-B Natriuret Pep Total Protein Albumin Crossmatch 01/24/20 01/24/20 01/24/20 05:20 05:51 09:14 WBC RBC Hgb Hct MCV RDW Plt Count Lymph % (Auto) [place] % (Auto) Lymph # Seg Neutrophils % Seg Neuts % (Manual) Lymphocytes % (Manual) Nucleated RBC % Seg Neutrophils # Man Lymphocytes # (Manual) Monocytes # (Manual) Eosinophils # (Manual) PT INR D-Dimer Heparin Anti-Xa Level ABG pH 7.214 L ABG pO2 71.7 L ABG HCO3 31.5 H ABG O2 Saturation 91.8 L ABG Base Excess ABG Hemoglobin 9.1 L Oxyhemoglobin 89.3 L Sodium Potassium Chloride Carbon Dioxide BUN Creatinine Glucose POC Glucose 50 L 53 L Calcium Magnesium Ferritin Direct Bilirubin AST ALT Alkaline Phosphatase Lactate Dehydrogenase Troponin T C-Reactive Protein NT-Pro-B Natriuret Pep Total Protein Albumin Crossmatch 01/24/20 01/24/20 01/24/20 15:10 18:04 21:10 WBC RBC Hgb Hct MCV RDW Plt Count Lymph % (Auto) [place] % (Auto) Lymph # Seg Neutrophils % Seg Neuts % (Manual) Lymphocytes % (Manual) Nucleated RBC % Seg Neutrophils # Man Lymphocytes # (Manual) Monocytes # (Manual) Eosinophils # (Manual) PT INR D-Dimer Heparin Anti-Xa Level ABG pH ABG pO2 ABG HCO3 ABG O2 Saturation ABG Base Excess ABG Hemoglobin Oxyhemoglobin Sodium Potassium Chloride Carbon Dioxide BUN Creatinine Glucose POC Glucose 114 H 51 L 144 H Calcium Magnesium Ferritin Direct Bilirubin AST ALT Alkaline Phosphatase Lactate Dehydrogenase Troponin T C-Reactive Protein NT-Pro-B Natriuret Pep Total Protein Albumin Crossmatch 01/24/20 01/25/20 01/25/20 Unknown 00:32 03:50 WBC 13.0 H RBC 3.10 L Hgb 9.2 L Hct 29.0 L MCV RDW 17.7 H Plt Count Lymph % (Auto) [place] % (Auto) Lymph # Seg Neutrophils % Seg Neuts % (Manual) 92.0 H Lymphocytes % (Manual) 5.0 L Nucleated RBC % Seg Neutrophils # Man 12.0 H Lymphocytes # (Manual) 0.7 L Monocytes # (Manual) Eosinophils # (Manual) PT INR D-Dimer Heparin Anti-Xa Level ABG pH 7.291 L ABG pO2 71.3 L ABG HCO3 30.6 H ABG O2 Saturation 93.6 L ABG Base Excess 3.3 H ABG Hemoglobin 8.1 L Oxyhemoglobin 91.2 L Sodium Potassium Chloride Carbon Dioxide BUN Creatinine Glucose POC Glucose 114 H Calcium Magnesium Ferritin Direct Bilirubin AST ALT Alkaline Phosphatase Lactate Dehydrogenase Troponin T C-Reactive Protein NT-Pro-B Natriuret Pep Total Protein Albumin Crossmatch 01/25/20 01/25/20 01/25/20 04:22 06:05 17:28 WBC RBC Hgb Hct MCV RDW Plt Count Lymph % (Auto) [place] % (Auto) Lymph # Seg Neutrophils % Seg Neuts % (Manual) Lymphocytes % (Manual) Nucleated RBC % Seg Neutrophils # Man Lymphocytes # (Manual) Monocytes # (Manual) Eosinophils # (Manual) PT INR D-Dimer Heparin Anti-Xa Level ABG pH 7.304 L ABG pO2 69.5 L ABG HCO3 29.7 H ABG O2 Saturation 93.2 L ABG Base Excess ABG Hemoglobin 8.7 L Oxyhemoglobin 90.7 L Sodium Potassium Chloride Carbon Dioxide BUN Creatinine Glucose POC Glucose 136 H 127 H Calcium Magnesium Ferritin Direct Bilirubin AST ALT Alkaline Phosphatase Lactate Dehydrogenase Troponin T C-Reactive Protein NT-Pro-B Natriuret Pep Total Protein Albumin Crossmatch 01/26/20 01/26/20 01/26/20 00:20 02:31 02:31 WBC RBC Hgb Hct MCV RDW Plt Count Lymph % (Auto) [place] % (Auto) Lymph # Seg Neutrophils % Seg Neuts % (Manual) Lymphocytes % (Manual) Nucleated RBC % Seg Neutrophils # Man Lymphocytes # (Manual) Monocytes # (Manual) Eosinophils # (Manual) PT INR D-Dimer Heparin Anti-Xa Level ABG pH ABG pO2 ABG HCO3 ABG O2 Saturation ABG Base Excess ABG Hemoglobin Oxyhemoglobin Sodium Potassium Chloride Carbon Dioxide BUN Creatinine Glucose POC Glucose 127 H Calcium Magnesium Ferritin 3764.0 H Direct Bilirubin AST ALT Alkaline Phosphatase Lactate Dehydrogenase 393 H Troponin T C-Reactive Protein 28.60 H NT-Pro-B Natriuret Pep Total Protein Albumin Crossmatch 01/26/20 01/26/20 01/26/20 02:31 04:45 05:24 WBC RBC Hgb Hct MCV RDW Plt Count Lymph % (Auto) [place] % (Auto) Lymph # Seg Neutrophils % Seg Neuts % (Manual) Lymphocytes % (Manual) Nucleated RBC % Seg Neutrophils # Man Lymphocytes # (Manual) Monocytes # (Manual) Eosinophils # (Manual) PT INR D-Dimer 3828.76 H Heparin Anti-Xa Level ABG pH ABG pO2 ABG HCO3 30.8 H ABG O2 Saturation ABG Base Excess 4.9 H ABG Hemoglobin 7.4 L Oxyhemoglobin 94.6 L Sodium Potassium Chloride Carbon Dioxide BUN Creatinine Glucose POC Glucose 121 H Calcium Magnesium Ferritin Direct Bilirubin AST ALT Alkaline Phosphatase Lactate Dehydrogenase Troponin T C-Reactive Protein NT-Pro-B Natriuret Pep Total Protein Albumin Crossmatch 01/26/20 01/26/20 01/26/20 10:40 12:36 18:10 WBC RBC Hgb Hct MCV RDW Plt Count Lymph % (Auto) [place] % (Auto) Lymph # Seg Neutrophils % Seg Neuts % (Manual) Lymphocytes % (Manual) Nucleated RBC % Seg Neutrophils # Man Lymphocytes # (Manual) Monocytes # (Manual) Eosinophils # (Manual) PT INR D-Dimer Heparin Anti-Xa Level ABG pH ABG pO2 ABG HCO3 ABG O2 Saturation ABG Base Excess ABG Hemoglobin Oxyhemoglobin Sodium Potassium Chloride Carbon Dioxide BUN Creatinine Glucose POC Glucose 119 H 126 H 159 H Calcium Magnesium Ferritin Direct Bilirubin AST ALT Alkaline Phosphatase Lactate Dehydrogenase Troponin T C-Reactive Protein NT-Pro-B Natriuret Pep Total Protein Albumin Crossmatch 01/27/20 01/27/20 01/27/20 03:45 06:15 12:19 WBC RBC Hgb Hct MCV RDW Plt Count Lymph % (Auto) [place] % (Auto) Lymph # Seg Neutrophils % Seg Neuts % (Manual) Lymphocytes % (Manual) Nucleated RBC % Seg Neutrophils # Man Lymphocytes # (Manual) Monocytes # (Manual) Eosinophils # (Manual) PT INR D-Dimer Heparin Anti-Xa Level ABG pH 7.307 L ABG pO2 91.1 H ABG HCO3 30.5 H ABG O2 Saturation ABG Base Excess 3.4 H ABG Hemoglobin 8.7 L Oxyhemoglobin 94.3 L Sodium Potassium Chloride Carbon Dioxide BUN Creatinine Glucose POC Glucose 147 H 164 H Calcium Magnesium Ferritin Direct Bilirubin AST ALT Alkaline Phosphatase Lactate Dehydrogenase Troponin T C-Reactive Protein NT-Pro-B Natriuret Pep Total Protein Albumin Crossmatch 01/27/20 01/28/20 01/28/20 17:42 00:29 04:34 WBC RBC Hgb Hct MCV RDW Plt Count Lymph % (Auto) [place] % (Auto) Lymph # Seg Neutrophils % Seg Neuts % (Manual) Lymphocytes % (Manual) Nucleated RBC % Seg Neutrophils # Man Lymphocytes # (Manual) Monocytes # (Manual) Eosinophils # (Manual) PT INR D-Dimer Heparin Anti-Xa Level ABG pH ABG pO2 ABG HCO3 ABG O2 Saturation ABG Base Excess ABG Hemoglobin Oxyhemoglobin Sodium Potassium Chloride Carbon Dioxide BUN Creatinine Glucose POC Glucose 149 H 178 H Calcium Magnesium Ferritin > 2000.0 H Direct Bilirubin AST ALT Alkaline Phosphatase Lactate Dehydrogenase Troponin T C-Reactive Protein NT-Pro-B Natriuret Pep Total Protein Albumin Crossmatch 01/28/20 01/28/20 01/28/20 04:34 04:34 05:20 WBC RBC Hgb Hct MCV RDW Plt Count Lymph % (Auto) [place] % (Auto) Lymph # Seg Neutrophils % Seg Neuts % (Manual) Lymphocytes % (Manual) Nucleated RBC % Seg Neutrophils # Man Lymphocytes # (Manual) Monocytes # (Manual) Eosinophils # (Manual) PT INR D-Dimer 2379 H Heparin Anti-Xa Level ABG pH 7.237 L ABG pO2 90.9 H ABG HCO3 29.1 H ABG O2 Saturation ABG Base Excess ABG Hemoglobin 7.5 L Oxyhemoglobin 94.0 L Sodium Potassium Chloride Carbon Dioxide BUN Creatinine Glucose POC Glucose Calcium Magnesium Ferritin Direct Bilirubin AST ALT Alkaline Phosphatase Lactate Dehydrogenase 434 H Troponin T C-Reactive Protein 9.70 H NT-Pro-B Natriuret Pep Total Protein Albumin Crossmatch 01/28/20 01/28/20 01/28/20 06:21 12:25 18:17 WBC RBC Hgb Hct MCV RDW Plt Count Lymph % (Auto) [place] % (Auto) Lymph # Seg Neutrophils % Seg Neuts % (Manual) Lymphocytes % (Manual) Nucleated RBC % Seg Neutrophils # Man Lymphocytes # (Manual) Monocytes # (Manual) Eosinophils # (Manual) PT INR D-Dimer Heparin Anti-Xa Level ABG pH ABG pO2 ABG HCO3 ABG O2 Saturation ABG Base Excess ABG Hemoglobin Oxyhemoglobin Sodium Potassium Chloride Carbon Dioxide BUN Creatinine Glucose POC Glucose 127 H 196 H 190 H Calcium Magnesium Ferritin Direct Bilirubin AST ALT Alkaline Phosphatase Lactate Dehydrogenase Troponin T C-Reactive Protein NT-Pro-B Natriuret Pep Total Protein Albumin Crossmatch 01/28/20 01/29/20 01/29/20 23:35 04:00 04:00 WBC 12.6 H RBC 3.01 L Hgb 9.2 L Hct 29.3 L MCV 98 H RDW 18.1 H Plt Count Lymph % (Auto) [place] % (Auto) Lymph # Seg Neutrophils % Seg Neuts % (Manual) Lymphocytes % (Manual) Nucleated RBC % Seg Neutrophils # Man Lymphocytes # (Manual) Monocytes # (Manual) Eosinophils # (Manual) PT INR D-Dimer Heparin Anti-Xa Level ABG pH ABG pO2 ABG HCO3 ABG O2 Saturation ABG Base Excess ABG Hemoglobin Oxyhemoglobin Sodium 132 L Potassium Chloride 90.1 L Carbon Dioxide BUN 50 H Creatinine 3.7 H Glucose 184 H POC Glucose 177 H Calcium Magnesium Ferritin Direct Bilirubin AST 93 H ALT Alkaline Phosphatase 678 H Lactate Dehydrogenase Troponin T C-Reactive Protein NT-Pro-B Natriuret Pep Total Protein Albumin 1.7 L Crossmatch 01/29/20 01/29/20 01/29/20 05:03 11:53 16:44 WBC RBC Hgb Hct MCV RDW Plt Count Lymph % (Auto) [place] % (Auto) Lymph # Seg Neutrophils % Seg Neuts % (Manual) Lymphocytes % (Manual) Nucleated RBC % Seg Neutrophils # Man Lymphocytes # (Manual) Monocytes # (Manual) Eosinophils # (Manual) PT INR D-Dimer Heparin Anti-Xa Level ABG pH ABG pO2 ABG HCO3 ABG O2 Saturation ABG Base Excess ABG Hemoglobin Oxyhemoglobin Sodium Potassium Chloride Carbon Dioxide BUN Creatinine Glucose POC Glucose 145 H 193 H 174 H Calcium Magnesium Ferritin Direct Bilirubin AST ALT Alkaline Phosphatase Lactate Dehydrogenase Troponin T C-Reactive Protein NT-Pro-B Natriuret Pep Total Protein Albumin Crossmatch 01/29/20 01/30/20 01/30/20 23:38 04:25 11:45 WBC RBC Hgb Hct MCV RDW Plt Count Lymph % (Auto) [place] % (Auto) Lymph # Seg Neutrophils % Seg Neuts % (Manual) Lymphocytes % (Manual) Nucleated RBC % Seg Neutrophils # Man Lymphocytes # (Manual) Monocytes # (Manual) Eosinophils # (Manual) PT INR D-Dimer Heparin Anti-Xa Level ABG pH 7.253 L ABG pO2 61.8 L ABG HCO3 29.7 H ABG O2 Saturation 90.1 L ABG Base Excess ABG Hemoglobin 8.2 L Oxyhemoglobin 87.5 L Sodium Potassium Chloride Carbon Dioxide BUN Creatinine Glucose POC Glucose 144 H 191 H Calcium Magnesium Ferritin Direct Bilirubin AST ALT Alkaline Phosphatase Lactate Dehydrogenase Troponin T C-Reactive Protein NT-Pro-B Natriuret Pep Total Protein Albumin Crossmatch 01/30/20 01/31/20 01/31/20 18:21 00:04 03:52 WBC RBC Hgb Hct MCV RDW Plt Count Lymph % (Auto) [place] % (Auto) Lymph # Seg Neutrophils % Seg Neuts % (Manual) Lymphocytes % (Manual) Nucleated RBC % Seg Neutrophils # Man Lymphocytes # (Manual) Monocytes # (Manual) Eosinophils # (Manual) PT INR D-Dimer Heparin Anti-Xa Level ABG pH ABG pO2 69.3 L ABG HCO3 29.4 H ABG O2 Saturation ABG Base Excess 3.7 H ABG Hemoglobin 10.8 L Oxyhemoglobin Sodium Potassium Chloride Carbon Dioxide BUN Creatinine Glucose POC Glucose 198 H 129 H Calcium Magnesium Ferritin Direct Bilirubin AST ALT Alkaline Phosphatase Lactate Dehydrogenase Troponin T C-Reactive Protein NT-Pro-B Natriuret Pep Total Protein Albumin Crossmatch 01/31/20 01/31/20 01/31/20 04:00 04:16 05:12 WBC 16.7 H RBC 2.73 L Hgb 8.3 L Hct 25.7 L MCV RDW 18.0 H Plt Count Lymph % (Auto) [place] % (Auto) Lymph # Seg Neutrophils % Seg Neuts % (Manual) 92.0 H Lymphocytes % (Manual) 2.0 L Nucleated RBC % Seg Neutrophils # Man 15.4 H Lymphocytes # (Manual) 0.3 L Monocytes # (Manual) 1.0 H Eosinophils # (Manual) PT INR D-Dimer Heparin Anti-Xa Level ABG pH ABG pO2 ABG HCO3 ABG O2 Saturation ABG Base Excess ABG Hemoglobin Oxyhemoglobin Sodium 130 L Potassium Chloride 90.1 L Carbon Dioxide BUN 61 H Creatinine 3.4 H Glucose 128 H POC Glucose 157 H Calcium Magnesium Ferritin Direct Bilirubin AST 103 H ALT 63 H Alkaline Phosphatase 534 H Lactate Dehydrogenase Troponin T C-Reactive Protein NT-Pro-B Natriuret Pep Total Protein Albumin 2.1 L Crossmatch 01/31/20 01/31/20 01/31/20 11:50 17:39 18:47 WBC RBC Hgb Hct MCV RDW Plt Count Lymph % (Auto) [place] % (Auto) Lymph # Seg Neutrophils % Seg Neuts % (Manual) Lymphocytes % (Manual) Nucleated RBC % Seg Neutrophils # Man Lymphocytes # (Manual) Monocytes # (Manual) Eosinophils # (Manual) PT INR D-Dimer Heparin Anti-Xa Level ABG pH ABG pO2 ABG HCO3 ABG O2 Saturation ABG Base Excess ABG Hemoglobin Oxyhemoglobin Sodium Potassium Chloride Carbon Dioxide BUN Creatinine Glucose POC Glucose 129 H 51 L 172 H Calcium Magnesium Ferritin Direct Bilirubin AST ALT Alkaline Phosphatase Lactate Dehydrogenase Troponin T C-Reactive Protein NT-Pro-B Natriuret Pep Total Protein Albumin Crossmatch 02/01/20 02/01/20 02/01/20 03:49 03:49 05:00 WBC 17.4 H RBC 2.68 L Hgb 8.0 L Hct 25.2 L MCV RDW 18.4 H Plt Count Lymph % (Auto) [place] % (Auto) Lymph # Seg Neutrophils % Seg Neuts % (Manual) Lymphocytes % (Manual) Nucleated RBC % Seg Neutrophils # Man Lymphocytes # (Manual) Monocytes # (Manual) Eosinophils # (Manual) PT INR D-Dimer Heparin Anti-Xa Level ABG pH 7.290 L ABG pO2 ABG HCO3 26.8 H ABG O2 Saturation ABG Base Excess ABG Hemoglobin 7.5 L Oxyhemoglobin 94.2 L Sodium 133 L Potassium Chloride 90.8 L Carbon Dioxide 21 L BUN 90 H Creatinine 4.6 H Glucose 145 H POC Glucose Calcium Magnesium Ferritin Direct Bilirubin AST ALT Alkaline Phosphatase Lactate Dehydrogenase Troponin T C-Reactive Protein NT-Pro-B Natriuret Pep Total Protein Albumin Crossmatch 02/01/20 02/01/20 02/01/20 05:34 06:09 12:42 WBC RBC Hgb Hct MCV RDW Plt Count Lymph % (Auto) [place] % (Auto) Lymph # Seg Neutrophils % Seg Neuts % (Manual) Lymphocytes % (Manual) Nucleated RBC % Seg Neutrophils # Man Lymphocytes # (Manual) Monocytes # (Manual) Eosinophils # (Manual) PT INR D-Dimer Heparin Anti-Xa Level ABG pH ABG pO2 ABG HCO3 ABG O2 Saturation ABG Base Excess ABG Hemoglobin Oxyhemoglobin Sodium Potassium Chloride Carbon Dioxide BUN Creatinine Glucose POC Glucose 166 H 143 H 218 H Calcium Magnesium Ferritin Direct Bilirubin AST ALT Alkaline Phosphatase Lactate Dehydrogenase Troponin T C-Reactive Protein NT-Pro-B Natriuret Pep Total Protein Albumin Crossmatch 02/01/20 02/01/20 02/02/20 17:38 18:24 05:00 WBC RBC Hgb Hct MCV RDW Plt Count Lymph % (Auto) [place] % (Auto) Lymph # Seg Neutrophils % Seg Neuts % (Manual) Lymphocytes % (Manual) Nucleated RBC % Seg Neutrophils # Man Lymphocytes # (Manual) Monocytes # (Manual) Eosinophils # (Manual) PT INR D-Dimer Heparin Anti-Xa Level ABG pH 7.317 L ABG pO2 ABG HCO3 28.2 H ABG O2 Saturation ABG Base Excess ABG Hemoglobin 10.1 L Oxyhemoglobin 94.0 L Sodium Potassium Chloride Carbon Dioxide BUN Creatinine Glucose POC Glucose 158 H 233 H Calcium Magnesium Ferritin Direct Bilirubin AST ALT Alkaline Phosphatase Lactate Dehydrogenase Troponin T C-Reactive Protein NT-Pro-B Natriuret Pep Total Protein Albumin Crossmatch 02/02/20 02/02/20 02/02/20 05:44 05:44 05:44 WBC 16.0 H RBC 2.85 L Hgb 8.3 L Hct 26.3 L MCV RDW 18.6 H Plt Count Lymph % (Auto) [place] % (Auto) Lymph # Seg Neutrophils % Seg Neuts % (Manual) 91.0 H Lymphocytes % (Manual) 2.0 L Nucleated RBC % Seg Neutrophils # Man 14.6 H Lymphocytes # (Manual) 0.3 L Monocytes # (Manual) Eosinophils # (Manual) PT INR D-Dimer Heparin Anti-Xa Level 0.77 H ABG pH ABG pO2 ABG HCO3 ABG O2 Saturation ABG Base Excess ABG Hemoglobin Oxyhemoglobin Sodium Potassium Chloride 95.5 L Carbon Dioxide BUN 57 H Creatinine 3.0 H Glucose 144 H POC Glucose Calcium 8.1 L Magnesium Ferritin Direct Bilirubin 0.3 H AST 179 H ALT 106 H Alkaline Phosphatase 557 H Lactate Dehydrogenase Troponin T C-Reactive Protein NT-Pro-B Natriuret Pep Total Protein 6.1 L Albumin 2.3 L Crossmatch 02/02/20 02/02/20 02/02/20 11:17 11:33 12:24 WBC RBC Hgb Hct MCV RDW Plt Count Lymph % (Auto) [place] % (Auto) Lymph # Seg Neutrophils % Seg Neuts % (Manual) Lymphocytes % (Manual) Nucleated RBC % Seg Neutrophils # Man Lymphocytes # (Manual) Monocytes # (Manual) Eosinophils # (Manual) PT INR D-Dimer Heparin Anti-Xa Level ABG pH ABG pO2 ABG HCO3 ABG O2 Saturation ABG Base Excess ABG Hemoglobin Oxyhemoglobin Sodium Potassium Chloride Carbon Dioxide BUN Creatinine Glucose POC Glucose < 40 L < 40 L 224 H Calcium Magnesium Ferritin Direct Bilirubin AST ALT Alkaline Phosphatase Lactate Dehydrogenase Troponin T C-Reactive Protein NT-Pro-B Natriuret Pep Total Protein Albumin Crossmatch 02/02/20 02/02/20 02/03/20 12:33 17:42 00:25 WBC RBC Hgb Hct MCV RDW Plt Count Lymph % (Auto) [place] % (Auto) Lymph # Seg Neutrophils % Seg Neuts % (Manual) Lymphocytes % (Manual) Nucleated RBC % Seg Neutrophils # Man Lymphocytes # (Manual) Monocytes # (Manual) Eosinophils # (Manual) PT INR D-Dimer Heparin Anti-Xa Level ABG pH ABG pO2 ABG HCO3 ABG O2 Saturation ABG Base Excess ABG Hemoglobin Oxyhemoglobin Sodium Potassium Chloride Carbon Dioxide BUN Creatinine Glucose 296 H POC Glucose 228 H < 40 L Calcium Magnesium Ferritin Direct Bilirubin AST ALT Alkaline Phosphatase Lactate Dehydrogenase Troponin T C-Reactive Protein NT-Pro-B Natriuret Pep Total Protein Albumin Crossmatch 02/03/20 02/03/20 02/03/20 00:27 03:59 03:59 WBC 22.9 H RBC 2.80 L Hgb 8.3 L Hct 27.4 L MCV 98 H RDW 19.2 H Plt Count Lymph % (Auto) [place] % (Auto) Lymph # Seg Neutrophils % Seg Neuts % (Manual) 92.0 H Lymphocytes % (Manual) 4.0 L Nucleated RBC % Seg Neutrophils # Man 21.1 H Lymphocytes # (Manual) 0.9 L Monocytes # (Manual) Eosinophils # (Manual) PT INR D-Dimer Heparin Anti-Xa Level ABG pH ABG pO2 ABG HCO3 ABG O2 Saturation ABG Base Excess ABG Hemoglobin Oxyhemoglobin Sodium 134 L Potassium 3.5 L Chloride Carbon Dioxide 21 L BUN 40 H Creatinine 2.6 H Glucose 180 H POC Glucose 198 H Calcium Magnesium Ferritin Direct Bilirubin AST ALT Alkaline Phosphatase Lactate Dehydrogenase Troponin T C-Reactive Protein NT-Pro-B Natriuret Pep Total Protein Albumin Crossmatch 02/03/20 02/03/20 02/03/20 04:48 05:00 12:21 WBC RBC Hgb Hct MCV RDW Plt Count Lymph % (Auto) [place] % (Auto) Lymph # Seg Neutrophils % Seg Neuts % (Manual) Lymphocytes % (Manual) Nucleated RBC % Seg Neutrophils # Man Lymphocytes # (Manual) Monocytes # (Manual) Eosinophils # (Manual) PT INR D-Dimer Heparin Anti-Xa Level ABG pH 7.315 L ABG pO2 97.3 H ABG HCO3 28.5 H ABG O2 Saturation ABG Base Excess ABG Hemoglobin 8.3 L Oxyhemoglobin 94.8 L Sodium Potassium Chloride Carbon Dioxide BUN Creatinine Glucose POC Glucose 182 H 201 H Calcium Magnesium Ferritin Direct Bilirubin AST ALT Alkaline Phosphatase Lactate Dehydrogenase Troponin T C-Reactive Protein NT-Pro-B Natriuret Pep Total Protein Albumin Crossmatch 02/03/20 02/03/20 02/04/20 17:43 23:36 04:50 WBC RBC Hgb Hct MCV RDW Plt Count Lymph % (Auto) [place] % (Auto) Lymph # Seg Neutrophils % Seg Neuts % (Manual) Lymphocytes % (Manual) Nucleated RBC % Seg Neutrophils # Man Lymphocytes # (Manual) Monocytes # (Manual) Eosinophils # (Manual) PT INR D-Dimer Heparin Anti-Xa Level ABG pH ABG pO2 ABG HCO3 ABG O2 Saturation ABG Base Excess ABG Hemoglobin Oxyhemoglobin Sodium 135 L Potassium Chloride 96.3 L Carbon Dioxide 21 L BUN 63 H Creatinine 4.1 H D Glucose 156 H POC Glucose 224 H 146 H Calcium 8.2 L Magnesium Ferritin Direct Bilirubin AST ALT Alkaline Phosphatase Lactate Dehydrogenase Troponin T C-Reactive Protein NT-Pro-B Natriuret Pep Total Protein Albumin Crossmatch 02/04/20 02/04/20 02/04/20 04:50 05:30 05:40 WBC 18.3 H RBC 2.31 L Hgb 6.9 L Hct 22.0 L MCV RDW 18.2 H Plt Count Lymph % (Auto) [place] % (Auto) Lymph # Seg Neutrophils % Seg Neuts % (Manual) 85.0 H Lymphocytes % (Manual) 4.0 L Nucleated RBC % 1.0 H Seg Neutrophils # Man 15.6 H Lymphocytes # (Manual) 0.7 L Monocytes # (Manual) Eosinophils # (Manual) PT INR D-Dimer Heparin Anti-Xa Level ABG pH 7.317 L ABG pO2 77.7 L ABG HCO3 27.4 H ABG O2 Saturation ABG Base Excess ABG Hemoglobin 8.0 L Oxyhemoglobin 94.5 L Sodium Potassium Chloride Carbon Dioxide BUN Creatinine Glucose POC Glucose 202 H Calcium Magnesium Ferritin Direct Bilirubin AST ALT Alkaline Phosphatase Lactate Dehydrogenase Troponin T C-Reactive Protein NT-Pro-B Natriuret Pep Total Protein Albumin Crossmatch 02/04/20 02/04/20 02/04/20 10:47 12:53 18:44 WBC RBC Hgb Hct MCV RDW Plt Count Lymph % (Auto) [place] % (Auto) Lymph # Seg Neutrophils % Seg Neuts % (Manual) Lymphocytes % (Manual) Nucleated RBC % Seg Neutrophils # Man Lymphocytes # (Manual) Monocytes # (Manual) Eosinophils # (Manual) PT INR D-Dimer Heparin Anti-Xa Level ABG pH ABG pO2 ABG HCO3 ABG O2 Saturation ABG Base Excess ABG Hemoglobin Oxyhemoglobin Sodium Potassium Chloride Carbon Dioxide BUN Creatinine Glucose POC Glucose 197 H 143 H Calcium Magnesium Ferritin Direct Bilirubin AST ALT Alkaline Phosphatase Lactate Dehydrogenase Troponin T C-Reactive Protein NT-Pro-B Natriuret Pep Total Protein Albumin Crossmatch See Detail 02/05/20 02/05/20 02/05/20 00:43 04:14 04:35 WBC RBC Hgb Hct MCV RDW Plt Count Lymph % (Auto) [place] % (Auto) Lymph # Seg Neutrophils % Seg Neuts % (Manual) Lymphocytes % (Manual) Nucleated RBC % Seg Neutrophils # Man Lymphocytes # (Manual) Monocytes # (Manual) Eosinophils # (Manual) PT INR D-Dimer Heparin Anti-Xa Level ABG pH 7.327 L ABG pO2 75.5 L ABG HCO3 30.1 H ABG O2 Saturation ABG Base Excess 3.5 H ABG Hemoglobin 8.4 L Oxyhemoglobin 93.8 L Sodium 134 L Potassium 3.3 L Chloride 97.3 L Carbon Dioxide BUN 38 H Creatinine 2.2 H Glucose 187 H POC Glucose 163 H Calcium 8.1 L Magnesium Ferritin Direct Bilirubin AST ALT Alkaline Phosphatase Lactate Dehydrogenase Troponin T C-Reactive Protein NT-Pro-B Natriuret Pep Total Protein Albumin Crossmatch 02/05/20 02/05/20 02/05/20 04:35 05:16 12:17 WBC 24.4 H RBC 2.75 L Hgb 7.9 L Hct 25.2 L MCV RDW 18.1 H Plt Count Lymph % (Auto) [place] % (Auto) Lymph # Seg Neutrophils % Seg Neuts % (Manual) 96.0 H Lymphocytes % (Manual) 1.0 L Nucleated RBC % Seg Neutrophils # Man 23.4 H Lymphocytes # (Manual) 0.2 L Monocytes # (Manual) Eosinophils # (Manual) 0.5 H PT INR D-Dimer Heparin Anti-Xa Level ABG pH ABG pO2 ABG HCO3 ABG O2 Saturation ABG Base Excess ABG Hemoglobin Oxyhemoglobin Sodium Potassium Chloride Carbon Dioxide BUN Creatinine Glucose POC Glucose 196 H 174 H Calcium Magnesium Ferritin Direct Bilirubin AST ALT Alkaline Phosphatase Lactate Dehydrogenase Troponin T C-Reactive Protein NT-Pro-B Natriuret Pep Total Protein Albumin Crossmatch Allied health notes reviewed: nursing
[2020-02-05] MEDS: CEFEPIME/NS 1 GM/100 ML 1 GM/100 ML BAG IV SCH (14:15)
[2020-02-05 14:49] LABS: C-Reactive Protein 17.3 mg/dL (0.00-1.30)
[2020-02-06 05:00] LABS: ABG Base Excess 1.7 mmol/L (-2.0-3.0); ABG HCO3 28.4 mmol/L (20.0-26.0); ABG PCO2 52.7 mm Hg; ABG PH 7.349 pH Units (7.350-7.450); ABG PO2 64.5 mm Hg (80.0-90.0)
[2020-02-06 05:06] LABS: ABG Methemoglobin 0.4 % (0.0-1.5)
[2020-02-06 06:05] LABS: Hematocrit 27.6 % (30.3-42.9); Hemoglobin 8.5 gm/dl (10.1-14.3); Mean Corpuscular HGB Conc 31 % (30-34); Mean Corpuscular Volume 91 fl (79-97); Platelet Count 398 K/mm3 (140-440); Red Blood Count 3.02 M/mm3 (3.65-5.03); Red Cell Distribution Width 18.8 % (13.2-15.2)
[2020-02-06 06:26] LABS: Calcium 8.5 mg/dL (8.4-10.2)
--- NOTE | 2020-02-06 08:56 | Progress Note ---
Assessment and Plan Assessment and plan: COVID- 19 infection confirmed. Bilateral pneumonia. Continue antibiotics per ID ARDS. Etiology secondary to above. Acute hypoxemic respiratory failure. Intubated, on ventilator Pulm following Chest pain Stress test neg for ischemia GERD and costochondritis in differential diagnosis Volume overload s/p hemodialysis Nephrology consulted,following Acute on Chronic diastolic CHF exacerbation Secondary to volume overload End stage renal disease on dialysis Nephrology following T2DM (type 2 diabetes mellitus) Continue continue coverage Check hemoglobin A1c Hypertension Continue antihypertensives Hyponatremia Secondary to increased volume--dilutional DVT prophylaxis On heparin and GI prophylaxis 01/11 Covid 19 survey testing sent, nasal swab done 01/10 01/12 Patient has acute resp failure. may need Oxygen on dc. awaiting Covid result 01/13 Still has shortness of breath, awaiting Covid test. 01/14 Pt still dyspneic, await covid testing, Pulse ox 83% 01/16/2020. Patient remains dyspneic. Follow-up COVID testing. 01/17/2020. Patient still requiring large amounts of oxygen. Patient currently with 15 L satting at 95%. Patient with increased inflammatory markers. Follow- up chest x-ray today. 01/18/20--Patient still requiring large amounts of oxygen. Patient currently with 15 L %. Patient with increased inflammatory markers. 01/19/2020 very elevated inflammatory markers- ferritin> 2000, CRP >24, LDH> 600, d-dimer >1000 putting her at high risk for ARDS. Continue hydroxychloroquine 400 mg PO BID for 1 day then 200 mg PO BID for 4 days (total 5 days) with zinc 220 mg PO qday. Continue ceftriaxone. ContinueCOVID isolationprecautions per [facility] protocol. Continue serial Ferritin, LDH, D-Dimer, CRP every 48h 01/20/2020. Inflammatory markers remain elevated with ferritin 1826, LDH 496, CRP 19.3, and d-dimer 2072. Patient requiring high flow nasal cannula 40L, FiO2 80%. Pulmonary following. Continue antibiotics and Plaquenil. [facility]prec[facility]. Patient has a high risk mortality and remains guarded. 01/21/2020. Continue antibiotics and Plaquenil. Continue COVID isolationprecautions per [facility] protocol. Maintain sats of 88% and greater. Still on HFNC, O2 weaned to 95% overnight. Sats documented at 98%. Pulmonary following and reports If patient progresses could give bipap a one hour trial to see if there is improvement, repeat ABG, if not would suggest elective intubation 01/22/2020 Patient still critically ill. Yesterday 01/20 had cardiopulmonary arrest so now intubated in ICU. Prognosis guarded. 01/23/2020 still critically ill. No more fever. Continue vent management. 01/24/20 Still critically ill, remain on vent. Continue current management. Will call . 01/25/20 Patient still critically ill. I called Davis Hernandez and gave update. He wants DNR status and says he will request withdrawal of care if patient does not get better after weekend. I discussed with Traffic Control Officer. 01/26/20 patient still intubated, on vent. She means a DNR order. Discussed with Nurse 01/26 patient still critically ill, vent dependent. 01/27 patient still intubated, on vent. On levophed to keep MAP>65mmhg 01/29/2020 patient still intubated on mechanical ventilation. AC mode ventilation with rate 20, tidal volume 400, FiO2 45% and PEEP 12. patient with no fever. Patient currently with sedation of propofol. Patient received hemodialysis yesterday with approximately 3 L removed. 01/30/2020. Patient still on mechanical ventilation. AC mode ventilation with rate 20, tidal volume 400, FiO2 45% and PEEP 8. Patient with elevated alkaline phosphatase. Check abdominal ultrasound. 01/31/2020. Patient still on mechanical ventilation. PSV mode ventilation with FiO2 50% and PEEP 8 and PS=12. Follow-up abdominal ultrasound for elevated alkaline phosphatase 02/01/2020. Patient currently with PSV FiO2 50%, pressure support 12, PEEP 8. Continue PSV trials per pulmonary. Continue Levophed to maintain MAP greater than 65. Continue propofol for sedation. 02/02/2020. Patient currently on AC mode ventilation rate 20, tidal volume 450, FiO2 50% and PEEP of 6. ABG with pH of 7.31, PCO2 56.4, and PO2 85. Patient confirmed COVID-19 positive on 01/17/2020. Patient with MOSF and guarded prognosis. Follow-up abdominal ultrasound (ordered 3 days ago) for elevated alkaline phosphatase and fevers. 02/03/2020. Patient continues on mechanical ventilation AC mode with rate 20, tidal volume 450 and PEEP of 8. Patient still with temperature 100.5. Patient off sedation but requiring Levophed at 2 mics. Patient with an episode of hypoglycemia yesterday requiring D5 half-normal. Continue to monitor for hypoglycemia. Patient with MOSF and guarded prognosis. Follow-up abdominal ultrasound (ordered 4 days ago) for elevated alkaline phosphatase and fevers. 02/04/2020. Patient continues on mechanical ventilation AC mode with rate 20, tidal volume 450, FiO2 50% and PEEP of 8. Patient continues to have fevers. Patient currently on Levophed. Continue pressors to maintain map greater than 65. Hemoglobin 6.9-1 unit PRBCs ordered. Patient may be able to wean off of Levophed with volume resuscitation of PRBCs. Follow-up abdominal ultrasound (ordered 5 days ago) for elevated alkaline phosphatase and fevers. Patient's prognosis remains guarded. 02/05/2020 patient with covid-19 infection with acute resp failure, intubated, still on vent. Now off Levophed since 02/0302/06/2020 patient with Covid-19 infection. fever yesterday, none today. Continuje current management. Prognosis guarded. The high probability of a clinically significant, sudden or life threatening deterioration of the [immunologic and respiratory] system(s) required my full and direct attention, intervention and personal management. The aggregate critical care time was [35] minutes. This time is in addition to time spent performing reported procedures but includes the following: [x] Data Review and interpretation [x] Patient assessment and monitoring of vital signs [x] Documentation [x] Medication orders and management History Interval history: Patient initially presented with chest tightness, SOB Now diagnosed with Covid-19 infection,acute resp failure, intubated Now having fevers Hospitalist Physical - Physical exam Narrative exam: GEN: Intubated, HEENT: Normocephalic, atraumatic, Neck: supple, No JVD Lungs: Bilateral crackles, heart;S1 and S2 reg, no murmurs, rubs or gallop Abd:soft, non tender, non distended, normal bowel sounds Ext: No edema, no clubbing, no cyanosis, Neuro: intubated, unresponsive - Constitutional Vitals: Temp Pulse Resp BP Pulse Ox 97.0 F L 93 H 24 116/44 100 02/06/20 08:00 02/06/20 08:33 04/22/20 08:33 02/06/20 08:33 02/06/20 08:33 General appearance: Present: no acute distress BREEZY score - Breezy Score Age > 65: (1) Yes Aspirin use within the Past 7 Days: (1) Yes 3 or more CAD Risk Factors: (1) Yes 2 or more Angina events in past 24 hrs: (1) Yes Known CAD with more than 50% Stenosis: (0) No Elevated Cardiac Markers: (0) No ST Deviation Greater than 0.5mm: (0) No BREEZY Score: 4 Results - Labs CBC & Chem 7: 02/06/20 05:55 02/06/20 05:55 Labs: Laboratory Last Values WBC 22.4 K/mm3 (4.5-11.0) H 02/06/20 05:55 RBC 3.02 M/mm3 (3.65-5.03) L 02/06/20 05:55 Hgb 8.5 gm/dl (10.1-14.3) L 02/06/20 05:55 Hct 27.6 % (30.3-42.9) L 02/06/20 05:55 MCV 91 fl (79-97) 02/06/20 05:55 MCH 28 pg (28-32) 02/06/20 05:55 MCHC 31 % (30-34) 02/06/20 05:55 RDW 18.8 % (13.2-15.2) H 02/06/20 05:55 Plt Count 398 K/mm3 (140-440) 02/06/20 05:55 Lymph % (Auto) Anatomic Pathology Assistant 02/03/20 03:59 [place] % (Auto) Anatomic Pathology Assistant 02/03/20 03:59 Eos % (Auto) Anatomic Pathology Assistant 02/03/20 03:59 Baso % (Auto) Anatomic Pathology Assistant 02/03/20 03:59 Lymph # Anatomic Pathology Assistant 02/03/20 03:59 [place] # Anatomic Pathology Assistant 02/03/20 03:59 Eos # Anatomic Pathology Assistant 02/03/20 03:59 Baso # Anatomic Pathology Assistant 02/03/20 03:59 Add Manual Diff Complete 02/05/20 04:35 Total Counted 100 02/05/20 04:35 Seg Neutrophils % Anatomic Pathology Assistant 02/05/20 04:35 Seg Neuts % (Manual) 96.0 % (40.0-70.0) H 02/05/20 04:35 Band Neutrophils % 0 % 02/05/20 04:35 Lymphocytes % (Manual) 1.0 % (13.4-35.0) L 02/05/20 04:35 Reactive Lymphs % (Man) 0 % 02/05/20 04:35 Monocytes % (Manual) 1.0 % (0.0-7.3) 02/05/20 04:35 Eosinophils % (Manual) 2.0 % (0.0-4.3) 02/05/20 04:35 Basophils % (Manual) 0 % (0.0-1.8) 02/05/20 04:35 Metamyelocytes % 0 % 02/05/20 04:35 Myelocytes % 0 % 02/05/20 04:35 Promyelocytes % 0 % 02/05/20 04:35 Blast Cells % 0 % 02/05/20 04:35 Nucleated RBC % Not Reportable 02/05/20 04:35 Seg Neutrophils # Anatomic Pathology Assistant 02/03/20 03:59 Seg Neutrophils # Man 23.4 K/mm3 (1.8-7.7) H 02/05/20 04:35 Band Neutrophils # 0.0 K/mm3 02/05/20 04:35 Lymphocytes # (Manual) 0.2 K/mm3 (1.2-5.4) L 02/05/20 04:35 Abs React Lymphs (Man) 0.0 K/mm3 02/05/20 04:35 Monocytes # (Manual) 0.2 K/mm3 (0.0-0.8) 02/05/20 04:35 Eosinophils # (Manual) 0.5 K/mm3 (0.0-0.4) H 02/05/20 04:35 Basophils # (Manual) 0.0 K/mm3 (0.0-0.1) 02/05/20 04:35 Metamyelocytes # 0.0 K/mm3 02/05/20 04:35 Myelocytes # 0.0 K/mm3 02/05/20 04:35 Promyelocytes # 0.0 K/mm3 02/05/20 04:35 Blast Cells # 0.0 K/mm3 02/05/20 04:35 WBC Morphology Not Reportable 02/05/20 04:35 Hypersegmented Neuts Not Reportable 02/05/20 04:35 Hyposegmented Neuts Not Reportable 02/05/20 04:35 Hypogranular Neuts Not Reportable 02/05/20 04:35 Smudge Cells Not Reportable 02/05/20 04:35 Toxic Granulation Not Reportable 02/05/20 04:35 Toxic Vacuolation Not Reportable 02/05/20 04:35 Dohle Bodies Not Reportable 02/05/20 04:35 Pelger-Huet Anomaly Not Reportable 02/05/20 04:35 Armando Rods Not Reportable 02/05/20 04:35 Platelet Estimate Consistent w auto 02/05/20 04:35 Clumped Platelets Not Reportable 02/05/20 04:35 Plt Clumps, EDTA Not Reportable 02/05/20 04:35 Large Platelets Not Reportable 02/05/20 04:35 Giant Platelets Not Reportable 02/05/20 04:35 Platelet Satelliting Not Reportable 02/05/20 04:35 Plt Morphology Comment Not Reportable 02/05/20 04:35 RBC Morphology Not Reportable 02/05/20 04:35 Dimorphic RBCs Not Reportable 02/05/20 04:35 Polychromasia Not Reportable 02/05/20 04:35 Hypochromasia Rare 02/05/20 04:35 Poikilocytosis Not Reportable 02/05/20 04:35 Anisocytosis Few 02/05/20 04:35 Microcytosis Not Reportable 02/05/20 04:35 Macrocytosis Rare 02/05/20 04:35 Spherocytes Not Reportable 02/05/20 04:35 Pappenheimer Bodies Not Reportable 02/05/20 04:35 Sickle Cells Not Reportable 02/05/20 04:35 Target Cells Not Reportable 02/05/20 04:35 Tear Drop Cells Not Reportable 02/05/20 04:35 Ovalocytes Not Reportable 02/05/20 04:35 Helmet Cells Not Reportable 02/05/20 04:35 Vu-W[place] Bodies Not Reportable 02/05/20 04:35 Touchet Rings Not Reportable 02/05/20 04:35 Karen Cells Not Reportable 02/05/20 04:35 Bite Cells Not Reportable 02/05/20 04:35 Crenated Cell Not Reportable 02/05/20 04:35 Elliptocytes Not Reportable 02/05/20 04:35 Acanthocytes (Spur) Not Reportable 02/05/20 04:35 Rouleaux Not Reportable 02/05/20 04:35 Hemoglobin C Crystals Not Reportable 02/05/20 04:35 Schistocytes Not Reportable 02/05/20 04:35 Malaria parasites Not Reportable 02/05/20 04:35 Ney Bodies Not Reportable 02/05/20 04:35 Hem Pathologist Commnt No 02/05/20 04:35 PT 15.6 Sec. (12.2-14.9) H 01/09/20 12:55 INR 1.22 (0.87-1.13) H 01/09/20 12:55 APTT 31.5 Sec. (24.2-36.6) 01/09/20 12:55 D-Dimer 2896.73 ng/mlDDU (0-234) H 02/05/20 13:55 Heparin Anti-Xa Level 0.77 U.I./ml (0.3-0.7) H 02/02/20 05:44 ABG pH 7.349 pH Units (7.350-7.450) L 02/06/20 04:50 ABG pCO2 52.7 mm Hg 02/06/20 04:50 ABG pO2 64.5 mm Hg (80.0-90.0) L 02/06/20 04:50 ABG HCO3 28.4 mmol/L (20.0-26.0) H 02/06/20 04:50 ABG O2 Saturation 94.0 % (95.0-99.0) L 02/06/20 04:50 ABG O2 Content 19.2 (0.0-44) 02/06/20 04:50 ABG Base Excess 1.7 mmol/L (-2.0-3.0) 02/06/20 04:50 ABG Hemoglobin 8.4 gm/dl (12.0-16.0) L 02/06/20 04:50 ABG Carboxyhemoglobin 1.9 % (0.0-5.0) 02/06/20 04:50 ABG Methemoglobin 0.4 % (0.0-1.5) 02/06/20 04:50 Oxyhemoglobin 91.8 % (95.0-99.0) L 02/06/20 04:50 FiO2 45 % 02/06/20 04:50 Sodium 136 mmol/L (137-145) L 02/06/20 05:55 Potassium 3.8 mmol/L (3.6-5.0) 02/06/20 05:55 Chloride 96.4 mmol/L (98-107) L 02/06/20 05:55 Carbon Dioxide 24 mmol/L (22-30) 02/06/20 05:55 Anion Gap 19 mmol/L 02/06/20 05:55 BUN 66 mg/dL (7-17) H 02/06/20 05:55 Creatinine 3.6 mg/dL (0.7-1.2) H D 02/06/20 05:55 Estimated GFR 15 ml/min 02/06/20 05:55 BUN/Creatinine Ratio 18 % 02/06/20 05:55 Glucose 139 mg/dL (65-100) H 02/06/20 05:55 POC Glucose 110 (70-105) H 02/06/20 05:58 Hemoglobin A1c 5.0 % (4-6) 01/10/20 06:54 Calcium 8.5 mg/dL (8.4-10.2) 02/06/20 05:55 Phosphorus 3.30 mg/dL (2.5-4.5) 01/12/20 16:01 Magnesium 2.00 mg/dL (1.7-2.3) 01/13/20 06:11 Ferritin > 2000.0 ng/mL (13.0-400.0) H 02/05/20 13:55 Total Bilirubin 0.50 mg/dL (0.1-1.2) 02/02/20 05:44 Direct Bilirubin 0.3 mg/dL (0-0.2) H 02/02/20 05:44 Indirect Bilirubin 0.2 mg/dL 02/02/20 05:44 AST 179 units/L (5-40) H 02/02/20 05:44 ALT 106 units/L (7-56) H 02/02/20 05:44 Alkaline Phosphatase 557 units/L (35-129) H 02/02/20 05:44 Lactate Dehydrogenase 311 units/L (91-180) H 02/05/20 13:55 Troponin T 0.315 ng/mL (0.00-0.029) H* 01/10/20 06:54 C-Reactive Protein 17.30 mg/dL (0.00-1.30) H 02/05/20 13:55 NT-Pro-B Natriuret Pep 67880 pg/mL (0-900) H 01/09/20 12:55 Total Protein 6.1 g/dL (6.3-8.2) L 02/02/20 05:44 Albumin 2.3 g/dL (3.9-5) L 02/02/20 05:44 Albumin/Globulin Ratio 0.6 % 02/02/20 05:44 Triglycerides 56 mg/dL (2-149) 01/30/20 04:04 Cholesterol 123 mg/dL (50-199) 01/09/20 12:55 LDL Cholesterol Direct 66 mg/dL (50-130) 01/09/20 12:55 HDL Cholesterol 47 mg/dL (40-59) 01/09/20 12:55 Cholesterol/HDL Ratio 2.61 % 01/09/20 12:55 Random Vancomycin 31.4 ug/mL (0-40.0) 02/06/20 05:55 Hepatitis A IgM Ab Non-reactive (NonReactive) 01/21/20 23:40 Hep Bs Antigen Non-reactive (Negative) 01/21/20 23:40 Hep B Core IgM Ab Non-reactive (NonReactive) 01/21/20 23:40 Hepatitis C Antibody Non-reactive (NonReactive) 01/21/20 23:40 Miscellaneous Test See scanned result 01/11/20 Unknown Miscellaneous Test See scanned result 01/11/20 Unknown Blood Type O POSITIVE 02/04/20 10:47 Antibody Screen Negative 02/04/20 10:47 Crossmatch See Detail 02/04/20 10:47 Microbiology: Microbiology 02/04/20 Unknown Peripheral/Venous Blood Culture - Preliminary NO GROWTH AFTER 24 HOURS 02/04/20 Unknown Peripheral/Venous Blood Culture - Preliminary NO GROWTH AFTER 24 HOURS Pleitez/IV: Voiding Method Toilet IV Catheter Type [Left Chest] Infusaport IV Catheter Type [Right Peripheral IV External Jugular] IV Catheter Type [Left INT / Saline Lock External Jugular] IV Catheter Type [Left Upper IVAD / Port arm] Active Medications - Current Medications Current Medications: Generic Name Dose Route Start Last Admin Trade Name Freq PRN Reason Stop Dose Admin Acetaminophen 650 mg 01/09/20 16:33 02/05/20 05:58 Tylenol PO 650 mg Q4H PRN Administration Pain MILD(1-3)/Fever >100.5/MEANS Lipase/Protease/Amylase 1 each 01/23/20 14:[address] 10,500 Unit FEEDTUBE PRN PRN For Clogged Feeding Tube Atorvastatin Calcium 40 mg 01/09/20 22:00 02/05/20 22:43 Lipitor PO 40 mg QHS PHILLY Administration Dextrose 50 ml 01/23/20 07:26 02/02/20 11:33 D50w (25gm) Syringe IV 50 ml Q30MIN PRN Administration BLOOD GLUCOSE < 70 Dextrose 25 ml 01/24/20 08:58 01/24/20 13:41 D50w (25gm) Syringe IV 25 ml Q4H PRN Administration BG < 80 MG/DL Docusate Sodium 100 mg 01/25/20 22:00 02/05/20 22:43 Colace PO 100 mg BID PHILLY Administration Enoxaparin Sodium 80 mg 01/23/20 12:00 02/05/20 12:44 Enoxaparin SUB-Q 80 mg Q24HR PHILLY Administration Epoetin Helio 20,000 unit 02/04/20 12:00 02/04/20 13:00 Procrit SUB-Q 20,000 unit SILVERIO PHILLY Administration Famotidine 20 mg 01/09/20 22:00 02/05/20 12:45 Pepcid PO 20 mg DAILY PHILLY Administration Norepinephrine 4 mg in 250 mls @ 7.5 mls/hr 01/21/20 18:00 02/04/20 15:51 Levophed Drip 4 Mg/Ns 250 Ml IV 0 mcg/min TITR PHILLY 0 mls/hr Titration Protocol 2 MCG/MIN Propofol 1,000 mg in 100 mls @ 2.265 mls/hr 01/22/20 09:00 01/30/20 14:25 Diprivan 10 Mg/Ml IV 0 mcg/kg/min TITR PHILLY 0 mls/hr Titration Protocol 5 MCG/KG/MIN Sodium Chloride 100 mls @ 999 mls/hr 02/01/20 09:47 Nacl 0.9% IV SILVERIO PRN Hypotension Cefepime HCl 1 gm in 100 mls @ 200 mls/hr 02/04/20 14:00 02/05/20 14:15 Cefepime/Ns 1 Gm/100 Ml IV 200 mls/hr Q24HR PHILLY Administration Protocol Fluconazole 200 mg in 100 mls @ 100 mls/hr 02/04/20 13:00 02/05/20 12:43 Diflucan IV 100 mls/hr Q24HR PHILLY Administration Protocol Lorazepam 2 mg 01/23/20 15:36 Ativan IV Q10MIN PRN Agitation Ondansetron HCl 4 mg 01/09/20 16:33 01/20/20 10:19 Zofran IV 4 mg Q8H PRN Administration Nausea And Vomiting Simple Syrup 15 ml 01/23/20 14:28 Simple Syrup FEEDTUBE PRN PRN Hypoglycemia Simple Syrup 30 ml 01/23/20 14:28 Simple Syrup FEEDTUBE PRN PRN Hypoglycemia Sodium Bicarbonate 325 mg 01/23/20 14:28 Sodium Bicarbonate FEEDTUBE PRN PRN For Clogged Feeding Tube Sodium Chloride 10 ml 01/09/20 22:00 02/05/20 22:44 Sodium Chloride Flush Syringe 10 Ml IV 10 ml BID PHILLY Administration Sodium Chloride 10 ml 01/09/20 16:33 Sodium Chloride Flush Syringe 10 Ml IV PRN PRN LINE FLUSH Valsartan 80 mg 01/10/20 10:00 02/05/20 12:48 Diovan PO Not Given DAILY PHILLY Nutrition/Malnutrition Assess - Dietary Evaluation Nutrition/Malnutrition Findings: Nutrition Notes Start: 01/17/20 13:49 Freq: Status: Active Protocol: Document 02/04/20 13:51 LM (Rec: 02/04/20 13:56 LM [email or web address]) Nutrition Notes Initial or Follow up Reassessment Current Diagnosis CKD (stage V CKD),Diabetes, Hypertension,Heart Failure, Respiratory Failure Other Pertinent Diagnosis on HD, Bilat pneu, COVID-19 (+ ) Current Diet Nepro 1.8 at 35ml/hr Labs/Tests Na 135 BUN 63 Cr 4.1 BG 156 Pertinent Medications Levophed Height 5 ft 6 in Weight 78 kg [place] Body Weight (kg) 59.09 BMI 27.7 Subjective/Other Information Nepro running at goal rate and pt is tolerating. Percent of energy/protein needs met: 94%/75% Burn Absent Trauma Absent Current % PO Negligible Minimum of two criteria Yes Fluid Accumulation Mild (non-severe) Reduced Tractor Expert Strength Measurably Reduced (severe) #1 Nutrition Diagnosis Malnutrition Diagnosis Progress(for reassessment Continues documentation) Is patient on ventilator? No Is Patient Ambulatory and/or Out of Bed No REE-([facility]-confined to bed) [phone] Calculation Used for Recommendations [facility] Additional Notes Protein: 91-151g (1.2-2g/kg) Fluid: per MD Nutrition Intervention Change Diet Order: Continue TF Nutrition Support: Nepro 1.8 at 35ml/hr (goal rate) Flush 50ml q4hr for hyponatremia Flush 150ml q4h once hyponatremia resolves Kcal 1,512 Protein (gm) 68 Fluid (mL) 611 Goal #1 TF tolerance Goal #2 Meet at least 75% of energy and protein needs via TF Anticipated Discharge Needs: unable to determine at this time Follow-Up By: 02/07/20 Additional Comments F/U for TF tolerance, Na lab
[2020-02-06] MEDS: DOCUSATE SODIUM 100 MG/10 ML ORAL LIQD PO SCH ×2 (10:48→21:53)
[2020-02-06] MEDS: FLUCONAZOLE 200 MG 200 MG/100 ML BAG IV SCH (10:48)
[2020-02-06] MEDS: ENOXAPARIN 80 MG/0.8 ML INJ SUB-Q SCH (10:48)
[2020-02-06] MEDS: CEFEPIME/NS 1 GM/100 ML 1 GM/100 ML BAG IV SCH (10:48)
[2020-02-06] MEDS: VALSARTAN 40 MG TAB PO SCH (10:49)
[2020-02-06] MEDS: FAMOTIDINE 20 MG TAB PO SCH (10:50)
--- NOTE | 2020-02-06 11:15 | Progress Note ---
Assessment and Plan Cultures: 01/10/2020 blood culture: No growth 01/21/2020 sputum culture: No growth 01/25/2020 blood culture: No growth 02/04/2020 blood culture: no growth A/P: #Sepsis with shock: likely due to severe COVID pneumonia. Completed empiric Cefepime x 5 days. Now back on antibiotics. #Severe COVID pneumonia: very elevated inflammatory markers. S/p ivermectin x 1 on 01/21/2020 (off label use). S/p hydroxychloroquine with zinc x 5 days. Markers remain elevated. #Acute hypoxic resp failure: intubated, on the vent #ESRD on HD #Thrombocytopenia: resolved #Elevated LFTs: etiology unclear. Bilirubin is normal. Alk phos and transa minases elevated. RUQ US showed no gall bladder, CBD appeared normal. Recs: continue empiric abx: Cefepime, Vancomycin + Fluconazole renally adjusted Slava Hannon MD, FACP [facility] ([facility]) C: [phone] O: [phone] F: [phone] Subjective Date of service: 02/06/20 Principal diagnosis: Pneumonia Interval history: No fever. Remains intubated, on the vent. Remains off pressors. On PSV mode of ventilation today with 6 PEEP. Objective - Exam Narrative Exam: Physical Exam (reviewed in chart due to PPE conservation) Constitutional: intubated, on the vent Head, Ears, Nose: normocephalic, atraumatic Eyes: limited due to PPE conservation strategy Neck: intubated Oral: intubated Cardiovascular: limited due to PPE conservation strategy Respiratory: limited due to PPE conservation strategy GI: limited due to PPE conservation strategy Musculoskeletal: limited due to PPE conservation strategy Skin: limited due to PPE conservation strategy Hem/Lymphatic: limited due to PPE conservation strategy Psych: no agitation Neurological: intubated, on the vent, exam limited - Constitutional Vitals: Vital Signs Temp Pulse Resp BP Pulse Ox 97.0 F L 101 H 18 112/47 100 02/06/20 08:00 02/06/20 10:49 02/06/20 09:31 02/06/20 10:49 02/06/20 09:31 Temperature -Last 24 Hours Temperature 97.0 F Temperature 99.6 F Temperature 99.5 F Temperature 98.3 F Temperature 98.5 F Temperature 98.1 F - Labs CBC & Chem 7: 02/06/20 05:55 02/06/20 05:55 Labs: Abnormal lab results 02/05/20 02/05/20 02/05/20 Range/Units 12:17 13:55 13:55 WBC (4.5-11.0) K/mm3 RBC (3.65-5.03) M/mm3 Hgb (10.1-14.3) gm/dl Hct (30.3-42.9) % RDW (13.2-15.2) % D-Dimer 2896.73 H (0-234) ng/mlDDU ABG pH (7.350-7.450) pH Units ABG pO2 (80.0-90.0) mm Hg ABG HCO3 (20.0-26.0) mmol/L ABG O2 Saturation (95.0-99.0) % ABG Hemoglobin (12.0-16.0) gm/dl Oxyhemoglobin (95.0-99.0) % Sodium (137-145) mmol/L Chloride (98-107) mmol/L BUN (7-17) mg/dL Creatinine (0.7-1.2) mg/dL Glucose (65-100) mg/dL POC Glucose 174 H (70-105) Ferritin > 2000.0 H (13.0-400.0) ng/mL Lactate Dehydrogenase (91-180) units/L C-Reactive Protein (0.00-1.30) mg/dL 02/05/20 02/05/20 02/05/20 Range/Units 13:55 17:20 21:53 WBC (4.5-11.0) K/mm3 RBC (3.65-5.03) M/mm3 Hgb (10.1-14.3) gm/dl Hct (30.3-42.9) % RDW (13.2-15.2) % D-Dimer (0-234) ng/mlDDU ABG pH (7.350-7.450) pH Units ABG pO2 (80.0-90.0) mm Hg ABG HCO3 (20.0-26.0) mmol/L ABG O2 Saturation (95.0-99.0) % ABG Hemoglobin (12.0-16.0) gm/dl Oxyhemoglobin (95.0-99.0) % Sodium (137-145) mmol/L Chloride (98-107) mmol/L BUN (7-17) mg/dL Creatinine (0.7-1.2) mg/dL Glucose (65-100) mg/dL POC Glucose 191 H 200 H (70-105) Ferritin (13.0-400.0) ng/mL Lactate Dehydrogenase 311 H (91-180) units/L C-Reactive Protein 17.30 H (0.00-1.30) mg/dL 02/06/20 02/06/20 02/06/20 Range/Units 04:50 05:55 05:55 WBC 22.4 H (4.5-11.0) K/mm3 RBC 3.02 L (3.65-5.03) M/mm3 Hgb 8.5 L (10.1-14.3) gm/dl Hct 27.6 L (30.3-42.9) % RDW 18.8 H (13.2-15.2) % D-Dimer (0-234) ng/mlDDU ABG pH 7.349 L (7.350-7.450) pH Units ABG pO2 64.5 L (80.0-90.0) mm Hg ABG HCO3 28.4 H (20.0-26.0) mmol/L ABG O2 Saturation 94.0 L (95.0-99.0) % ABG Hemoglobin 8.4 L (12.0-16.0) gm/dl Oxyhemoglobin 91.8 L (95.0-99.0) % Sodium 136 L (137-145) mmol/L Chloride 96.4 L (98-107) mmol/L BUN 66 H (7-17) mg/dL Creatinine 3.6 H D (0.7-1.2) mg/dL Glucose 139 H (65-100) mg/dL POC Glucose (70-105) Ferritin (13.0-400.0) ng/mL Lactate Dehydrogenase (91-180) units/L C-Reactive Protein (0.00-1.30) mg/dL 02/06/20 Range/Units 05:58 WBC (4.5-11.0) K/mm3 RBC (3.65-5.03) M/mm3 Hgb (10.1-14.3) gm/dl Hct (30.3-42.9) % RDW (13.2-15.2) % D-Dimer (0-234) ng/mlDDU ABG pH (7.350-7.450) pH Units ABG pO2 (80.0-90.0) mm Hg ABG HCO3 (20.0-26.0) mmol/L ABG O2 Saturation (95.0-99.0) % ABG Hemoglobin (12.0-16.0) gm/dl Oxyhemoglobin (95.0-99.0) % Sodium (137-145) mmol/L Chloride (98-107) mmol/L BUN (7-17) mg/dL Creatinine (0.7-1.2) mg/dL Glucose (65-100) mg/dL POC Glucose 110 H (70-105) Ferritin (13.0-400.0) ng/mL Lactate Dehydrogenase (91-180) units/L C-Reactive Protein (0.00-1.30) mg/dL
--- NOTE | 2020-02-06 12:20 | Progress Note ---
Assessment and Plan 64 y/o female with COVID positive, viral pneumonia with some pulmonary vascular congestion superimposed. 1. Continue PSV trials. 2. HD per renal, will do today. 3. Changed back to prophylactic dosing for VTE as not confirmed the presence of VTE 4. Overall prognosis is guarded to poor, especially with prior history of ESRD on HD. Continue supportive care. IMS spoke with who has made patient a DNR. I have signed. Hopeful she can pull through but do agree with DNR status given evidence of increased mortality throughout [place] from this novel [place] virus. Spoke with IMS again as they will speak with today. Hopeful he will continue as she has made improvements. Please continue daily PSV's, hoping her mental state will improve and she will clear the sedation and be extubated. Otherwise consider trach and peg and follow up from there. Will speak with CM about this. Await to speak to CM about further plans regarding this. CCT 31 minutes. Subjective Date of service: 02/06/20 Principal diagnosis: Pneumonia Interval history: No acute events. HD today. Down to 45%. Decent PaO2. Currently on PSV 31/03 and tolerating with sat of 100. Objective Vital Signs - 12hr 02/06/20 02/06/20 02/06/20 00:30 00:45 01:00 Temperature Pulse Rate 95 H 95 H 94 H Pulse Rate [ From Monitor] Respiratory 37 H 28 H 24 Rate Blood Pressure 107/51 113/53 107/48 O2 Sat by Pulse 100 100 100 Oximetry 02/06/20 02/06/20 02/06/20 01:15 01:30 01:45 Temperature Pulse Rate 94 H 96 H 94 H Pulse Rate [ From Monitor] Respiratory 19 38 H 32 H Rate Blood Pressure 108/55 115/58 106/48 O2 Sat by Pulse 100 100 100 Oximetry 02/06/20 02/06/20 02/06/20 02:00 02:15 02:30 Temperature Pulse Rate 94 H 94 H 93 H Pulse Rate [ From Monitor] Respiratory 29 H 33 H 29 H Rate Blood Pressure 114/53 109/53 101/46 O2 Sat by Pulse 100 100 99 Oximetry 02/06/20 02/06/20 02/06/20 02:45 03:00 03:15 Temperature Pulse Rate 95 H 97 H 96 H Pulse Rate [ From Monitor] Respiratory 29 H 32 H 32 H Rate Blood Pressure 107/54 111/50 115/47 O2 Sat by Pulse 99 100 100 Oximetry 02/06/20 02/06/20 02/06/20 03:30 03:45 04:00 Temperature 99.6 F Pulse Rate 96 H 97 H 96 H Pulse Rate [ 81 From Monitor] Respiratory 22 40 H 33 H Rate Blood Pressure 108/52 106/53 116/53 O2 Sat by Pulse 97 100 99 Oximetry 02/06/20 02/06/20 02/06/20 04:15 04:30 04:33 Temperature Pulse Rate 96 H 96 H 96 H Pulse Rate [ From Monitor] Respiratory 31 H 30 H Rate Blood Pressure 113/50 112/52 112/52 O2 Sat by Pulse 98 99 100 Oximetry 02/06/20 02/06/20 02/06/20 04:45 05:00 05:15 Temperature Pulse Rate 97 H 98 H 98 H Pulse Rate [ From Monitor] Respiratory 37 H 37 H Rate Blood Pressure 111/57 112/53 111/57 O2 Sat by Pulse 99 98 100 Oximetry 02/06/20 02/06/20 02/06/20 05:30 05:45 06:00 Temperature Pulse Rate 99 H 98 H 97 H Pulse Rate [ From Monitor] Respiratory 17 17 Rate Blood Pressure 120/61 128/59 119/51 O2 Sat by Pulse 100 100 Oximetry 02/06/20 02/06/20 02/06/20 06:15 06:31 06:45 Temperature Pulse Rate 96 H 95 H 97 H Pulse Rate [ From Monitor] Respiratory 34 H 25 H 31 H Rate Blood Pressure 126/52 122/48 129/52 O2 Sat by Pulse 100 100 100 Oximetry 02/06/20 02/06/20 02/06/20 07:01 07:15 07:31 Temperature Pulse Rate 97 H 96 H 94 H Pulse Rate [ From Monitor] Respiratory 29 H 26 H 27 H Rate Blood Pressure 126/45 119/53 120/49 O2 Sat by Pulse 100 100 100 Oximetry 02/06/20 02/06/20 02/06/20 07:45 08:00 08:15 Temperature 97.0 F L Pulse Rate 96 H 97 H 96 H Pulse Rate [ 97 H From Monitor] Respiratory 33 H 30 H 47 H Rate Blood Pressure 120/47 117/50 118/44 O2 Sat by Pulse 100 100 100 Oximetry 02/06/20 02/06/2020 08:31 08:33 08:45 Temperature Pulse Rate 96 H 93 H 97 H Pulse Rate [ From Monitor] Respiratory 31 H 24 23 Rate Blood Pressure 116/44 116/44 125/43 O2 Sat by Pulse 100 100 100 Oximetry 02/06/20 02/06/20 02/06/20 09:01 09:15 09:29 Temperature Pulse Rate 97 H 99 H 100 H Pulse Rate [ From Monitor] Respiratory 26 H 41 H Rate Blood Pressure 133/46 116/44 O2 Sat by Pulse 100 100 Oximetry 02/06/20 02/06/20 02/06/20 09:31 09:45 10:01 Temperature Pulse Rate 99 H 100 H 100 H Pulse Rate [ From Monitor] Respiratory 18 20 17 Rate Blood Pressure 116/43 116/43 110/42 O2 Sat by Pulse 100 100 100 Oximetry 02/06/20 02/06/20 02/06/20 10:15 10:30 10:45 Temperature Pulse Rate 101 H 100 H 102 H Pulse Rate [ From Monitor] Respiratory 18 16 21 Rate Blood Pressure 110/42 110/48 112/47 O2 Sat by Pulse 100 100 100 Oximetry 02/06/20 02/06/20 02/06/20 10:49 11:00 11:15 Temperature Pulse Rate 101 H 101 H 98 H Pulse Rate [ From Monitor] Respiratory 23 20 Rate Blood Pressure 112/47 109/38 92/34 O2 Sat by Pulse 100 100 Oximetry 02/06/20 02/06/20 02/06/20 11:30 11:45 12:00 Temperature Pulse Rate 95 H 104 H 102 H Pulse Rate [ 102 H From Monitor] Respiratory 16 22 23 Rate Blood Pressure 88/37 109/46 118/48 O2 Sat by Pulse 100 100 100 Oximetry 02/06/20 12:01 Temperature Pulse Rate 102 H Pulse Rate [ From Monitor] Respiratory 15 Rate Blood Pressure 118/48 O2 Sat by Pulse 100 Oximetry Constitutional: other (orally intubated, not sedated currently on vent. on AC 450 50) Eyes: non-icteric ENT: oropharynx moist Neck: supple Effort: normal Ascultation: Bilateral: rales Cardiovascular: regular rate and rhythm (no mrg) Gastrointestinal: normoactive bowel sounds, soft, non-tender, non-distended Integumentary: normal Extremities: no cyanosis, no edema, pink and warm Neurologic: unable to assess Psychiatric: mood appropriate, affect normal CBC and BMP: 02/06/20 05:55 02/06/20 05:55 ABG, PT/INR, D-dimer: ABG ABG pH 7.349 pH Units (7.350-7.450) L 02/06/20 04:50 ABG pCO2 52.7 mm Hg 02/06/20 04:50 ABG pO2 64.5 mm Hg (80.0-90.0) L 02/06/20 04:50 ABG O2 Saturation 94.0 % (95.0-99.0) L 02/06/20 04:50 PT/INR, D-dimer PT 15.6 Sec. (12.2-14.9) H 01/09/20 12:55 INR 1.22 (0.87-1.13) H 01/09/20 12:55 D-Dimer 2896.73 ng/mlDDU (0-234) H 02/05/20 13:55 Abnormal lab findings: Abnormal Labs 01/09/20 01/09/20 01/09/20 12:55 12:55 12:55 WBC 4.4 L RBC 3.44 L Hgb Hct MCV RDW 17.0 H Plt Count Lymph % (Auto) 6.8 L [place] % (Auto) 13.6 H Lymph # 0.3 L Seg Neutrophils % 79.0 H Seg Neuts % (Manual) Lymphocytes % (Manual) Nucleated RBC % Seg Neutrophils # Man Lymphocytes # (Manual) Monocytes # (Manual) Eosinophils # (Manual) PT 15.6 H INR 1.22 H D-Dimer Heparin Anti-Xa Level ABG pH ABG pO2 ABG HCO3 ABG O2 Saturation ABG Base Excess ABG Hemoglobin Oxyhemoglobin Sodium 130 L Potassium Chloride 88.9 L Carbon Dioxide 20 L BUN 41 H Creatinine 7.6 H Glucose 115 H POC Glucose Calcium Magnesium Ferritin Direct Bilirubin AST ALT Alkaline Phosphatase 153 H Lactate Dehydrogenase Troponin T 0.382 H* C-Reactive Protein NT-Pro-B Natriuret Pep 65338 H Total Protein Albumin 3.2 L Crossmatch 01/09/20 01/10/20 01/10/20 20:14 00:16 06:54 WBC 3.3 L RBC 3.00 L Hgb 9.2 L Hct 27.8 L MCV RDW 17.2 H Plt Count Lymph % (Auto) 8.9 L [place] % (Auto) 11.5 H Lymph # 0.3 L Seg Neutrophils % 79.1 H Seg Neuts % (Manual) Lymphocytes % (Manual) Nucleated RBC % Seg Neutrophils # Man Lymphocytes # (Manual) Monocytes # (Manual) Eosinophils # (Manual) PT INR D-Dimer Heparin Anti-Xa Level ABG pH ABG pO2 ABG HCO3 ABG O2 Saturation ABG Base Excess ABG Hemoglobin Oxyhemoglobin Sodium Potassium Chloride Carbon Dioxide BUN Creatinine Glucose POC Glucose Calcium Magnesium Ferritin Direct Bilirubin AST ALT Alkaline Phosphatase Lactate Dehydrogenase Troponin T 0.349 H* 0.328 H* C-Reactive Protein NT-Pro-B Natriuret Pep Total Protein Albumin Crossmatch 01/10/20 01/10/20 01/11/20 06:54 06:54 16:45 WBC RBC Hgb Hct MCV RDW Plt Count Lymph % (Auto) [place] % (Auto) Lymph # Seg Neutrophils % Seg Neuts % (Manual) Lymphocytes % (Manual) Nucleated RBC % Seg Neutrophils # Man Lymphocytes # (Manual) Monocytes # (Manual) Eosinophils # (Manual) PT INR D-Dimer Heparin Anti-Xa Level ABG pH ABG pO2 ABG HCO3 ABG O2 Saturation ABG Base Excess ABG Hemoglobin Oxyhemoglobin Sodium 133 L Potassium Chloride 90.6 L Carbon Dioxide BUN 50 H Creatinine 8.4 H Glucose 101 H POC Glucose 106 H Calcium 8.1 L Magnesium Ferritin Direct Bilirubin AST ALT Alkaline Phosphatase 148 H Lactate Dehydrogenase Troponin T 0.315 H* C-Reactive Protein NT-Pro-B Natriuret Pep Total Protein 5.4 L Albumin 2.7 L Crossmatch 01/12/20 01/13/20 01/13/20 16:01 06:11 06:11 WBC 3.1 L RBC 3.25 L Hgb 9.8 L Hct MCV RDW 17.2 H Plt Count 136 L Lymph % (Auto) [place] % (Auto) Lymph # Seg Neutrophils % Seg Neuts % (Manual) Lymphocytes % (Manual) Nucleated RBC % Seg Neutrophils # Man Lymphocytes # (Manual) Monocytes # (Manual) Eosinophils # (Manual) PT INR D-Dimer Heparin Anti-Xa Level ABG pH ABG pO2 ABG HCO3 ABG O2 Saturation ABG Base Excess ABG Hemoglobin Oxyhemoglobin Sodium 135 L Potassium Chloride 93.4 L Carbon Dioxide BUN 19 H Creatinine 4.5 H Glucose 120 H POC Glucose Calcium 7.8 L Magnesium 1.40 L Ferritin Direct Bilirubin AST ALT Alkaline Phosphatase Lactate Dehydrogenase Troponin T C-Reactive Protein NT-Pro-B Natriuret Pep Total Protein Albumin Crossmatch 01/16/20 01/16/20 01/16/20 08:35 11:49 14:11 WBC RBC Hgb Hct MCV RDW Plt Count Lymph % (Auto) [place] % (Auto) Lymph # Seg Neutrophils % Seg Neuts % (Manual) Lymphocytes % (Manual) Nucleated RBC % Seg Neutrophils # Man Lymphocytes # (Manual) Monocytes # (Manual) Eosinophils # (Manual) PT INR D-Dimer Heparin Anti-Xa Level ABG pH ABG pO2 48.4 L ABG HCO3 30.5 H ABG O2 Saturation 81.9 L ABG Base Excess 4.6 H ABG Hemoglobin 10.5 L Oxyhemoglobin 80.1 L Sodium Potassium Chloride Carbon Dioxide BUN Creatinine Glucose POC Glucose 126 H 119 H Calcium Magnesium Ferritin Direct Bilirubin AST ALT Alkaline Phosphatase Lactate Dehydrogenase Troponin T C-Reactive Protein NT-Pro-B Natriuret Pep Total Protein Albumin Crossmatch 01/16/20 01/16/20 01/16/20 15:38 15:38 15:38 WBC RBC Hgb Hct MCV RDW Plt Count Lymph % (Auto) [place] % (Auto) Lymph # Seg Neutrophils % Seg Neuts % (Manual) Lymphocytes % (Manual) Nucleated RBC % Seg Neutrophils # Man Lymphocytes # (Manual) Monocytes # (Manual) Eosinophils # (Manual) PT INR D-Dimer 1104.64 H Heparin Anti-Xa Level ABG pH ABG pO2 ABG HCO3 ABG O2 Saturation ABG Base Excess ABG Hemoglobin Oxyhemoglobin Sodium Potassium Chloride Carbon Dioxide BUN Creatinine Glucose POC Glucose Calcium Magnesium Ferritin > 2000.0 H Direct Bilirubin AST ALT Alkaline Phosphatase Lactate Dehydrogenase 690 H Troponin T C-Reactive Protein 24.10 H NT-Pro-B Natriuret Pep Total Protein Albumin Crossmatch 01/16/20 01/18/20 01/18/20 18:11 06:25 06:25 WBC RBC 3.15 L Hgb 9.4 L Hct 29.4 L MCV RDW 17.5 H Plt Count 135 L Lymph % (Auto) 3.8 L [place] % (Auto) Lymph # 0.2 L Seg Neutrophils % 88.8 H Seg Neuts % (Manual) Lymphocytes % (Manual) Nucleated RBC % Seg Neutrophils # Man Lymphocytes # (Manual) Monocytes # (Manual) Eosinophils # (Manual) PT INR D-Dimer Heparin Anti-Xa Level ABG pH ABG pO2 ABG HCO3 ABG O2 Saturation ABG Base Excess ABG Hemoglobin Oxyhemoglobin Sodium Potassium Chloride 96.8 L Carbon Dioxide BUN 26 H Creatinine 4.2 H Glucose 115 H POC Glucose 130 H Calcium 8.2 L Magnesium Ferritin Direct Bilirubin AST ALT Alkaline Phosphatase Lactate Dehydrogenase 537 H Troponin T C-Reactive Protein 17.10 H NT-Pro-B Natriuret Pep Total Protein Albumin Crossmatch 01/18/20 01/18/20 01/18/20 06:25 06:25 12:15 WBC RBC Hgb Hct MCV RDW Plt Count Lymph % (Auto) [place] % (Auto) Lymph # Seg Neutrophils % Seg Neuts % (Manual) Lymphocytes % (Manual) Nucleated RBC % Seg Neutrophils # Man Lymphocytes # (Manual) Monocytes # (Manual) Eosinophils # (Manual) PT INR D-Dimer 938.03 H Heparin Anti-Xa Level ABG pH ABG pO2 66.5 L ABG HCO3 30.1 H ABG O2 Saturation 93.2 L ABG Base Excess 4.6 H ABG Hemoglobin 10.0 L Oxyhemoglobin 91.3 L Sodium Potassium Chloride Carbon Dioxide BUN Creatinine Glucose POC Glucose Calcium Magnesium Ferritin 3105.0 H Direct Bilirubin AST ALT Alkaline Phosphatase Lactate Dehydrogenase Troponin T C-Reactive Protein NT-Pro-B Natriuret Pep Total Protein Albumin Crossmatch 01/20/20 01/20/20 01/20/20 07:37 07:37 07:37 WBC RBC Hgb Hct MCV RDW Plt Count Lymph % (Auto) [place] % (Auto) Lymph # Seg Neutrophils % Seg Neuts % (Manual) Lymphocytes % (Manual) Nucleated RBC % Seg Neutrophils # Man Lymphocytes # (Manual) Monocytes # (Manual) Eosinophils # (Manual) PT INR D-Dimer 2072.25 H Heparin Anti-Xa Level ABG pH ABG pO2 ABG HCO3 ABG O2 Saturation ABG Base Excess ABG Hemoglobin Oxyhemoglobin Sodium Potassium Chloride Carbon Dioxide BUN Creatinine Glucose POC Glucose Calcium Magnesium Ferritin 1826.0 H Direct Bilirubin AST ALT Alkaline Phosphatase Lactate Dehydrogenase 496 H Troponin T C-Reactive Protein 19.30 H NT-Pro-B Natriuret Pep Total Protein Albumin Crossmatch 01/20/20 01/21/20 01/21/20 17:30 03:59 17:35 WBC RBC Hgb Hct MCV RDW Plt Count Lymph % (Auto) [place] % (Auto) Lymph # Seg Neutrophils % Seg Neuts % (Manual) Lymphocytes % (Manual) Nucleated RBC % Seg Neutrophils # Man Lymphocytes # (Manual) Monocytes # (Manual) Eosinophils # (Manual) PT INR D-Dimer Heparin Anti-Xa Level ABG pH ABG pO2 61.1 L 67.4 L ABG HCO3 29.9 H 26.2 H ABG O2 Saturation 91.7 L 93.4 L ABG Base Excess 4.9 H ABG Hemoglobin 9.0 L 9.1 L Oxyhemoglobin 89.5 L 91.1 L Sodium 136 L Potassium Chloride Carbon Dioxide BUN 36 H Creatinine 4.9 H Glucose POC Glucose Calcium Magnesium Ferritin Direct Bilirubin AST ALT Alkaline Phosphatase Lactate Dehydrogenase Troponin T C-Reactive Protein NT-Pro-B Natriuret Pep Total Protein Albumin Crossmatch 01/21/20 01/22/20 01/22/20 Unknown 03:41 03:41 WBC RBC Hgb Hct MCV RDW Plt Count Lymph % (Auto) [place] % (Auto) Lymph # Seg Neutrophils % Seg Neuts % (Manual) Lymphocytes % (Manual) Nucleated RBC % Seg Neutrophils # Man Lymphocytes # (Manual) Monocytes # (Manual) Eosinophils # (Manual) PT INR D-Dimer Heparin Anti-Xa Level ABG pH 7.465 H ABG pO2 48.9 L ABG HCO3 26.6 H ABG O2 Saturation 85.7 L ABG Base Excess ABG Hemoglobin 10.4 L Oxyhemoglobin 83.5 L Sodium Potassium Chloride Carbon Dioxide BUN Creatinine Glucose POC Glucose Calcium Magnesium Ferritin 6071.0 H Direct Bilirubin AST ALT Alkaline Phosphatase Lactate Dehydrogenase 963 H Troponin T C-Reactive Protein 30.00 H NT-Pro-B Natriuret Pep Total Protein Albumin Crossmatch 01/22/20 01/22/20 01/22/20 03:41 07:47 11:20 WBC RBC Hgb Hct MCV RDW Plt Count Lymph % (Auto) [place] % (Auto) Lymph # Seg Neutrophils % Seg Neuts % (Manual) Lymphocytes % (Manual) Nucleated RBC % Seg Neutrophils # Man Lymphocytes # (Manual) Monocytes # (Manual) Eosinophils # (Manual) PT INR D-Dimer > 60040 H Heparin Anti-Xa Level ABG pH ABG pO2 66.7 L ABG HCO3 28.7 H ABG O2 Saturation 91.9 L ABG Base Excess ABG Hemoglobin 9.1 L Oxyhemoglobin 89.5 L Sodium Potassium Chloride 94.3 L Carbon Dioxide BUN 53 H Creatinine 6.5 H Glucose POC Glucose Calcium Magnesium Ferritin Direct Bilirubin AST ALT Alkaline Phosphatase Lactate Dehydrogenase Troponin T C-Reactive Protein NT-Pro-B Natriuret Pep Total Protein Albumin Crossmatch 01/22/20 01/22/20 01/23/20 11:49 Unknown 04:55 WBC 15.1 H RBC 3.05 L Hgb 8.8 L Hct 28.3 L MCV RDW 17.8 H Plt Count 125 L Lymph % (Auto) [place] % (Auto) Lymph # Seg Neutrophils % Seg Neuts % (Manual) Lymphocytes % (Manual) Nucleated RBC % Seg Neutrophils # Man Lymphocytes # (Manual) Monocytes # (Manual) Eosinophils # (Manual) PT INR D-Dimer Heparin Anti-Xa Level ABG pH 7.340 L ABG pO2 77.7 L 136.3 H ABG HCO3 27.6 H 28.8 H ABG O2 Saturation ABG Base Excess ABG Hemoglobin 9.3 L 10.9 L Oxyhemoglobin 94.2 L Sodium Potassium Chloride Carbon Dioxide BUN Creatinine Glucose POC Glucose Calcium Magnesium Ferritin Direct Bilirubin AST ALT Alkaline Phosphatase Lactate Dehydrogenase Troponin T C-Reactive Protein NT-Pro-B Natriuret Pep Total Protein Albumin Crossmatch 01/23/20 01/23/20 01/23/20 06:23 07:07 12:23 WBC RBC Hgb Hct MCV RDW Plt Count Lymph % (Auto) [place] % (Auto) Lymph # Seg Neutrophils % Seg Neuts % (Manual) Lymphocytes % (Manual) Nucleated RBC % Seg Neutrophils # Man Lymphocytes # (Manual) Monocytes # (Manual) Eosinophils # (Manual) PT INR D-Dimer Heparin Anti-Xa Level ABG pH ABG pO2 ABG HCO3 ABG O2 Saturation ABG Base Excess ABG Hemoglobin Oxyhemoglobin Sodium Potassium Chloride Carbon Dioxide BUN Creatinine Glucose POC Glucose 57 L 127 H 131 H Calcium Magnesium Ferritin Direct Bilirubin AST ALT Alkaline Phosphatase Lactate Dehydrogenase Troponin T C-Reactive Protein NT-Pro-B Natriuret Pep Total Protein Albumin Crossmatch 01/23/20 01/23/20 01/24/20 Unknown Unknown 04:00 WBC 16.2 H RBC 3.08 L Hgb 8.9 L Hct 28.6 L MCV RDW 17.8 H Plt Count 139 L Lymph % (Auto) [place] % (Auto) Lymph # Seg Neutrophils % Seg Neuts % (Manual) Lymphocytes % (Manual) Nucleated RBC % Seg Neutrophils # Man Lymphocytes # (Manual) Monocytes # (Manual) Eosinophils # (Manual) PT INR D-Dimer Heparin Anti-Xa Level < 0.10 L ABG pH ABG pO2 ABG HCO3 ABG O2 Saturation ABG Base Excess ABG Hemoglobin Oxyhemoglobin Sodium Potassium Chloride Carbon Dioxide BUN Creatinine Glucose POC Glucose Calcium Magnesium Ferritin 4195.0 H Direct Bilirubin AST ALT Alkaline Phosphatase Lactate Dehydrogenase Troponin T C-Reactive Protein NT-Pro-B Natriuret Pep Total Protein Albumin Crossmatch 01/24/20 01/24/20 01/24/20 04:00 04:00 04:00 WBC RBC Hgb Hct MCV RDW Plt Count Lymph % (Auto) [place] % (Auto) Lymph # Seg Neutrophils % Seg Neuts % (Manual) Lymphocytes % (Manual) Nucleated RBC % Seg Neutrophils # Man Lymphocytes # (Manual) Monocytes # (Manual) Eosinophils # (Manual) PT INR D-Dimer 5783.11 H Heparin Anti-Xa Level ABG pH 7.188 L* ABG pO2 70.8 L ABG HCO3 32.2 H ABG O2 Saturation 90.4 L ABG Base Excess ABG Hemoglobin 8.5 L Oxyhemoglobin 88.1 L Sodium Potassium Chloride Carbon Dioxide BUN Creatinine Glucose POC Glucose Calcium Magnesium Ferritin Direct Bilirubin AST ALT Alkaline Phosphatase Lactate Dehydrogenase 474 H Troponin T C-Reactive Protein 29.80 H NT-Pro-B Natriuret Pep Total Protein Albumin Crossmatch 01/24/20 01/24/20 01/24/20 05:20 05:51 09:14 WBC RBC Hgb Hct MCV RDW Plt Count Lymph % (Auto) [place] % (Auto) Lymph # Seg Neutrophils % Seg Neuts % (Manual) Lymphocytes % (Manual) Nucleated RBC % Seg Neutrophils # Man Lymphocytes # (Manual) Monocytes # (Manual) Eosinophils # (Manual) PT INR D-Dimer Heparin Anti-Xa Level ABG pH 7.214 L ABG pO2 71.7 L ABG HCO3 31.5 H ABG O2 Saturation 91.8 L ABG Base Excess ABG Hemoglobin 9.1 L Oxyhemoglobin 89.3 L Sodium Potassium Chloride Carbon Dioxide BUN Creatinine Glucose POC Glucose 50 L 53 L Calcium Magnesium Ferritin Direct Bilirubin AST ALT Alkaline Phosphatase Lactate Dehydrogenase Troponin T C-Reactive Protein NT-Pro-B Natriuret Pep Total Protein Albumin Crossmatch 01/24/20 01/24/20 01/24/20 15:10 18:04 21:10 WBC RBC Hgb Hct MCV RDW Plt Count Lymph % (Auto) [place] % (Auto) Lymph # Seg Neutrophils % Seg Neuts % (Manual) Lymphocytes % (Manual) Nucleated RBC % Seg Neutrophils # Man Lymphocytes # (Manual) Monocytes # (Manual) Eosinophils # (Manual) PT INR D-Dimer Heparin Anti-Xa Level ABG pH ABG pO2 ABG HCO3 ABG O2 Saturation ABG Base Excess ABG Hemoglobin Oxyhemoglobin Sodium Potassium Chloride Carbon Dioxide BUN Creatinine Glucose POC Glucose 114 H 51 L 144 H Calcium Magnesium Ferritin Direct Bilirubin AST ALT Alkaline Phosphatase Lactate Dehydrogenase Troponin T C-Reactive Protein NT-Pro-B Natriuret Pep Total Protein Albumin Crossmatch 01/24/20 01/25/20 01/25/20 Unknown 00:32 03:50 WBC 13.0 H RBC 3.10 L Hgb 9.2 L Hct 29.0 L MCV RDW 17.7 H Plt Count Lymph % (Auto) [place] % (Auto) Lymph # Seg Neutrophils % Seg Neuts % (Manual) 92.0 H Lymphocytes % (Manual) 5.0 L Nucleated RBC % Seg Neutrophils # Man 12.0 H Lymphocytes # (Manual) 0.7 L Monocytes # (Manual) Eosinophils # (Manual) PT INR D-Dimer Heparin Anti-Xa Level ABG pH 7.291 L ABG pO2 71.3 L ABG HCO3 30.6 H ABG O2 Saturation 93.6 L ABG Base Excess 3.3 H ABG Hemoglobin 8.1 L Oxyhemoglobin 91.2 L Sodium Potassium Chloride Carbon Dioxide BUN Creatinine Glucose POC Glucose 114 H Calcium Magnesium Ferritin Direct Bilirubin AST ALT Alkaline Phosphatase Lactate Dehydrogenase Troponin T C-Reactive Protein NT-Pro-B Natriuret Pep Total Protein Albumin Crossmatch 01/25/20 01/25/20 01/25/20 04:22 06:05 17:28 WBC RBC Hgb Hct MCV RDW Plt Count Lymph % (Auto) [place] % (Auto) Lymph # Seg Neutrophils % Seg Neuts % (Manual) Lymphocytes % (Manual) Nucleated RBC % Seg Neutrophils # Man Lymphocytes # (Manual) Monocytes # (Manual) Eosinophils # (Manual) PT INR D-Dimer Heparin Anti-Xa Level ABG pH 7.304 L ABG pO2 69.5 L ABG HCO3 29.7 H ABG O2 Saturation 93.2 L ABG Base Excess ABG Hemoglobin 8.7 L Oxyhemoglobin 90.7 L Sodium Potassium Chloride Carbon Dioxide BUN Creatinine Glucose POC Glucose 136 H 127 H Calcium Magnesium Ferritin Direct Bilirubin AST ALT Alkaline Phosphatase Lactate Dehydrogenase Troponin T C-Reactive Protein NT-Pro-B Natriuret Pep Total Protein Albumin Crossmatch 01/26/20 01/26/20 01/26/20 00:20 02:31 02:31 WBC RBC Hgb Hct MCV RDW Plt Count Lymph % (Auto) [place] % (Auto) Lymph # Seg Neutrophils % Seg Neuts % (Manual) Lymphocytes % (Manual) Nucleated RBC % Seg Neutrophils # Man Lymphocytes # (Manual) Monocytes # (Manual) Eosinophils # (Manual) PT INR D-Dimer Heparin Anti-Xa Level ABG pH ABG pO2 ABG HCO3 ABG O2 Saturation ABG Base Excess ABG Hemoglobin Oxyhemoglobin Sodium Potassium Chloride Carbon Dioxide BUN Creatinine Glucose POC Glucose 127 H Calcium Magnesium Ferritin 3764.0 H Direct Bilirubin AST ALT Alkaline Phosphatase Lactate Dehydrogenase 393 H Troponin T C-Reactive Protein 28.60 H NT-Pro-B Natriuret Pep Total Protein Albumin Crossmatch 01/26/20 01/26/20 01/26/20 02:31 04:45 05:24 WBC RBC Hgb Hct MCV RDW Plt Count Lymph % (Auto) [place] % (Auto) Lymph # Seg Neutrophils % Seg Neuts % (Manual) Lymphocytes % (Manual) Nucleated RBC % Seg Neutrophils # Man Lymphocytes # (Manual) Monocytes # (Manual) Eosinophils # (Manual) PT INR D-Dimer 3828.76 H Heparin Anti-Xa Level ABG pH ABG pO2 ABG HCO3 30.8 H ABG O2 Saturation ABG Base Excess 4.9 H ABG Hemoglobin 7.4 L Oxyhemoglobin 94.6 L Sodium Potassium Chloride Carbon Dioxide BUN Creatinine Glucose POC Glucose 121 H Calcium Magnesium Ferritin Direct Bilirubin AST ALT Alkaline Phosphatase Lactate Dehydrogenase Troponin T C-Reactive Protein NT-Pro-B Natriuret Pep Total Protein Albumin Crossmatch 01/26/20 01/26/20 01/26/20 10:40 12:36 18:10 WBC RBC Hgb Hct MCV RDW Plt Count Lymph % (Auto) [place] % (Auto) Lymph # Seg Neutrophils % Seg Neuts % (Manual) Lymphocytes % (Manual) Nucleated RBC % Seg Neutrophils # Man Lymphocytes # (Manual) Monocytes # (Manual) Eosinophils # (Manual) PT INR D-Dimer Heparin Anti-Xa Level ABG pH ABG pO2 ABG HCO3 ABG O2 Saturation ABG Base Excess ABG Hemoglobin Oxyhemoglobin Sodium Potassium Chloride Carbon Dioxide BUN Creatinine Glucose POC Glucose 119 H 126 H 159 H Calcium Magnesium Ferritin Direct Bilirubin AST ALT Alkaline Phosphatase Lactate Dehydrogenase Troponin T C-Reactive Protein NT-Pro-B Natriuret Pep Total Protein Albumin Crossmatch 01/27/20 01/27/20 01/27/20 03:45 06:15 12:19 WBC RBC Hgb Hct MCV RDW Plt Count Lymph % (Auto) [place] % (Auto) Lymph # Seg Neutrophils % Seg Neuts % (Manual) Lymphocytes % (Manual) Nucleated RBC % Seg Neutrophils # Man Lymphocytes # (Manual) Monocytes # (Manual) Eosinophils # (Manual) PT INR D-Dimer Heparin Anti-Xa Level ABG pH 7.307 L ABG pO2 91.1 H ABG HCO3 30.5 H ABG O2 Saturation ABG Base Excess 3.4 H ABG Hemoglobin 8.7 L Oxyhemoglobin 94.3 L Sodium Potassium Chloride Carbon Dioxide BUN Creatinine Glucose POC Glucose 147 H 164 H Calcium Magnesium Ferritin Direct Bilirubin AST ALT Alkaline Phosphatase Lactate Dehydrogenase Troponin T C-Reactive Protein NT-Pro-B Natriuret Pep Total Protein Albumin Crossmatch 01/27/20 01/28/20 01/28/20 17:42 00:29 04:34 WBC RBC Hgb Hct MCV RDW Plt Count Lymph % (Auto) [place] % (Auto) Lymph # Seg Neutrophils % Seg Neuts % (Manual) Lymphocytes % (Manual) Nucleated RBC % Seg Neutrophils # Man Lymphocytes # (Manual) Monocytes # (Manual) Eosinophils # (Manual) PT INR D-Dimer Heparin Anti-Xa Level ABG pH ABG pO2 ABG HCO3 ABG O2 Saturation ABG Base Excess ABG Hemoglobin Oxyhemoglobin Sodium Potassium Chloride Carbon Dioxide BUN Creatinine Glucose POC Glucose 149 H 178 H Calcium Magnesium Ferritin > 2000.0 H Direct Bilirubin AST ALT Alkaline Phosphatase Lactate Dehydrogenase Troponin T C-Reactive Protein NT-Pro-B Natriuret Pep Total Protein Albumin Crossmatch 01/28/20 01/28/20 01/28/20 04:34 04:34 05:20 WBC RBC Hgb Hct MCV RDW Plt Count Lymph % (Auto) [place] % (Auto) Lymph # Seg Neutrophils % Seg Neuts % (Manual) Lymphocytes % (Manual) Nucleated RBC % Seg Neutrophils # Man Lymphocytes # (Manual) Monocytes # (Manual) Eosinophils # (Manual) PT INR D-Dimer 2379 H Heparin Anti-Xa Level ABG pH 7.237 L ABG pO2 90.9 H ABG HCO3 29.1 H ABG O2 Saturation ABG Base Excess ABG Hemoglobin 7.5 L Oxyhemoglobin 94.0 L Sodium Potassium Chloride Carbon Dioxide BUN Creatinine Glucose POC Glucose Calcium Magnesium Ferritin Direct Bilirubin AST ALT Alkaline Phosphatase Lactate Dehydrogenase 434 H Troponin T C-Reactive Protein 9.70 H NT-Pro-B Natriuret Pep Total Protein Albumin Crossmatch 01/28/20 01/28/20 01/28/20 06:21 12:25 18:17 WBC RBC Hgb Hct MCV RDW Plt Count Lymph % (Auto) [place] % (Auto) Lymph # Seg Neutrophils % Seg Neuts % (Manual) Lymphocytes % (Manual) Nucleated RBC % Seg Neutrophils # Man Lymphocytes # (Manual) Monocytes # (Manual) Eosinophils # (Manual) PT INR D-Dimer Heparin Anti-Xa Level ABG pH ABG pO2 ABG HCO3 ABG O2 Saturation ABG Base Excess ABG Hemoglobin Oxyhemoglobin Sodium Potassium Chloride Carbon Dioxide BUN Creatinine Glucose POC Glucose 127 H 196 H 190 H Calcium Magnesium Ferritin Direct Bilirubin AST ALT Alkaline Phosphatase Lactate Dehydrogenase Troponin T C-Reactive Protein NT-Pro-B Natriuret Pep Total Protein Albumin Crossmatch 01/28/20 01/29/20 01/29/20 23:35 04:00 04:00 WBC 12.6 H RBC 3.01 L Hgb 9.2 L Hct 29.3 L MCV 98 H RDW 18.1 H Plt Count Lymph % (Auto) [place] % (Auto) Lymph # Seg Neutrophils % Seg Neuts % (Manual) Lymphocytes % (Manual) Nucleated RBC % Seg Neutrophils # Man Lymphocytes # (Manual) Monocytes # (Manual) Eosinophils # (Manual) PT INR D-Dimer Heparin Anti-Xa Level ABG pH ABG pO2 ABG HCO3 ABG O2 Saturation ABG Base Excess ABG Hemoglobin Oxyhemoglobin Sodium 132 L Potassium Chloride 90.1 L Carbon Dioxide BUN 50 H Creatinine 3.7 H Glucose 184 H POC Glucose 177 H Calcium Magnesium Ferritin Direct Bilirubin AST 93 H ALT Alkaline Phosphatase 678 H Lactate Dehydrogenase Troponin T C-Reactive Protein NT-Pro-B Natriuret Pep Total Protein Albumin 1.7 L Crossmatch 01/29/20 01/29/20 01/29/20 05:03 11:53 16:44 WBC RBC Hgb Hct MCV RDW Plt Count Lymph % (Auto) [place] % (Auto) Lymph # Seg Neutrophils % Seg Neuts % (Manual) Lymphocytes % (Manual) Nucleated RBC % Seg Neutrophils # Man Lymphocytes # (Manual) Monocytes # (Manual) Eosinophils # (Manual) PT INR D-Dimer Heparin Anti-Xa Level ABG pH ABG pO2 ABG HCO3 ABG O2 Saturation ABG Base Excess ABG Hemoglobin Oxyhemoglobin Sodium Potassium Chloride Carbon Dioxide BUN Creatinine Glucose POC Glucose 145 H 193 H 174 H Calcium Magnesium Ferritin Direct Bilirubin AST ALT Alkaline Phosphatase Lactate Dehydrogenase Troponin T C-Reactive Protein NT-Pro-B Natriuret Pep Total Protein Albumin Crossmatch 01/29/20 01/30/20 01/30/20 23:38 04:25 11:45 WBC RBC Hgb Hct MCV RDW Plt Count Lymph % (Auto) [place] % (Auto) Lymph # Seg Neutrophils % Seg Neuts % (Manual) Lymphocytes % (Manual) Nucleated RBC % Seg Neutrophils # Man Lymphocytes # (Manual) Monocytes # (Manual) Eosinophils # (Manual) PT INR D-Dimer Heparin Anti-Xa Level ABG pH 7.253 L ABG pO2 61.8 L ABG HCO3 29.7 H ABG O2 Saturation 90.1 L ABG Base Excess ABG Hemoglobin 8.2 L Oxyhemoglobin 87.5 L Sodium Potassium Chloride Carbon Dioxide BUN Creatinine Glucose POC Glucose 144 H 191 H Calcium Magnesium Ferritin Direct Bilirubin AST ALT Alkaline Phosphatase Lactate Dehydrogenase Troponin T C-Reactive Protein NT-Pro-B Natriuret Pep Total Protein Albumin Crossmatch 01/30/20 01/31/20 01/31/20 18:21 00:04 03:52 WBC RBC Hgb Hct MCV RDW Plt Count Lymph % (Auto) [place] % (Auto) Lymph # Seg Neutrophils % Seg Neuts % (Manual) Lymphocytes % (Manual) Nucleated RBC % Seg Neutrophils # Man Lymphocytes # (Manual) Monocytes # (Manual) Eosinophils # (Manual) PT INR D-Dimer Heparin Anti-Xa Level ABG pH ABG pO2 69.3 L ABG HCO3 29.4 H ABG O2 Saturation ABG Base Excess 3.7 H ABG Hemoglobin 10.8 L Oxyhemoglobin Sodium Potassium Chloride Carbon Dioxide BUN Creatinine Glucose POC Glucose 198 H 129 H Calcium Magnesium Ferritin Direct Bilirubin AST ALT Alkaline Phosphatase Lactate Dehydrogenase Troponin T C-Reactive Protein NT-Pro-B Natriuret Pep Total Protein Albumin Crossmatch 01/31/20 01/31/20 01/31/20 04:00 04:16 05:12 WBC 16.7 H RBC 2.73 L Hgb 8.3 L Hct 25.7 L MCV RDW 18.0 H Plt Count Lymph % (Auto) [place] % (Auto) Lymph # Seg Neutrophils % Seg Neuts % (Manual) 92.0 H Lymphocytes % (Manual) 2.0 L Nucleated RBC % Seg Neutrophils # Man 15.4 H Lymphocytes # (Manual) 0.3 L Monocytes # (Manual) 1.0 H Eosinophils # (Manual) PT INR D-Dimer Heparin Anti-Xa Level ABG pH ABG pO2 ABG HCO3 ABG O2 Saturation ABG Base Excess ABG Hemoglobin Oxyhemoglobin Sodium 130 L Potassium Chloride 90.1 L Carbon Dioxide BUN 61 H Creatinine 3.4 H Glucose 128 H POC Glucose 157 H Calcium Magnesium Ferritin Direct Bilirubin AST 103 H ALT 63 H Alkaline Phosphatase 534 H Lactate Dehydrogenase Troponin T C-Reactive Protein NT-Pro-B Natriuret Pep Total Protein Albumin 2.1 L Crossmatch 01/31/20 01/31/20 01/31/20 11:50 17:39 18:47 WBC RBC Hgb Hct MCV RDW Plt Count Lymph % (Auto) [place] % (Auto) Lymph # Seg Neutrophils % Seg Neuts % (Manual) Lymphocytes % (Manual) Nucleated RBC % Seg Neutrophils # Man Lymphocytes # (Manual) Monocytes # (Manual) Eosinophils # (Manual) PT INR D-Dimer Heparin Anti-Xa Level ABG pH ABG pO2 ABG HCO3 ABG O2 Saturation ABG Base Excess ABG Hemoglobin Oxyhemoglobin Sodium Potassium Chloride Carbon Dioxide BUN Creatinine Glucose POC Glucose 129 H 51 L 172 H Calcium Magnesium Ferritin Direct Bilirubin AST ALT Alkaline Phosphatase Lactate Dehydrogenase Troponin T C-Reactive Protein NT-Pro-B Natriuret Pep Total Protein Albumin Crossmatch 02/01/20 02/01/20 02/01/20 03:49 03:49 05:00 WBC 17.4 H RBC 2.68 L Hgb 8.0 L Hct 25.2 L MCV RDW 18.4 H Plt Count Lymph % (Auto) [place] % (Auto) Lymph # Seg Neutrophils % Seg Neuts % (Manual) Lymphocytes % (Manual) Nucleated RBC % Seg Neutrophils # Man Lymphocytes # (Manual) Monocytes # (Manual) Eosinophils # (Manual) PT INR D-Dimer Heparin Anti-Xa Level ABG pH 7.290 L ABG pO2 ABG HCO3 26.8 H ABG O2 Saturation ABG Base Excess ABG Hemoglobin 7.5 L Oxyhemoglobin 94.2 L Sodium 133 L Potassium Chloride 90.8 L Carbon Dioxide 21 L BUN 90 H Creatinine 4.6 H Glucose 145 H POC Glucose Calcium Magnesium Ferritin Direct Bilirubin AST ALT Alkaline Phosphatase Lactate Dehydrogenase Troponin T C-Reactive Protein NT-Pro-B Natriuret Pep Total Protein Albumin Crossmatch 02/01/20 02/01/20 02/01/20 05:34 06:09 12:42 WBC RBC Hgb Hct MCV RDW Plt Count Lymph % (Auto) [place] % (Auto) Lymph # Seg Neutrophils % Seg Neuts % (Manual) Lymphocytes % (Manual) Nucleated RBC % Seg Neutrophils # Man Lymphocytes # (Manual) Monocytes # (Manual) Eosinophils # (Manual) PT INR D-Dimer Heparin Anti-Xa Level ABG pH ABG pO2 ABG HCO3 ABG O2 Saturation ABG Base Excess ABG Hemoglobin Oxyhemoglobin Sodium Potassium Chloride Carbon Dioxide BUN Creatinine Glucose POC Glucose 166 H 143 H 218 H Calcium Magnesium Ferritin Direct Bilirubin AST ALT Alkaline Phosphatase Lactate Dehydrogenase Troponin T C-Reactive Protein NT-Pro-B Natriuret Pep Total Protein Albumin Crossmatch 02/01/20 02/01/20 02/02/20 17:38 18:24 05:00 WBC RBC Hgb Hct MCV RDW Plt Count Lymph % (Auto) [place] % (Auto) Lymph # Seg Neutrophils % Seg Neuts % (Manual) Lymphocytes % (Manual) Nucleated RBC % Seg Neutrophils # Man Lymphocytes # (Manual) Monocytes # (Manual) Eosinophils # (Manual) PT INR D-Dimer Heparin Anti-Xa Level ABG pH 7.317 L ABG pO2 ABG HCO3 28.2 H ABG O2 Saturation ABG Base Excess ABG Hemoglobin 10.1 L Oxyhemoglobin 94.0 L Sodium Potassium Chloride Carbon Dioxide BUN Creatinine Glucose POC Glucose 158 H 233 H Calcium Magnesium Ferritin Direct Bilirubin AST ALT Alkaline Phosphatase Lactate Dehydrogenase Troponin T C-Reactive Protein NT-Pro-B Natriuret Pep Total Protein Albumin Crossmatch 02/02/20 02/02/20 02/02/20 05:44 05:44 05:44 WBC 16.0 H RBC 2.85 L Hgb 8.3 L Hct 26.3 L MCV RDW 18.6 H Plt Count Lymph % (Auto) [place] % (Auto) Lymph # Seg Neutrophils % Seg Neuts % (Manual) 91.0 H Lymphocytes % (Manual) 2.0 L Nucleated RBC % Seg Neutrophils # Man 14.6 H Lymphocytes # (Manual) 0.3 L Monocytes # (Manual) Eosinophils # (Manual) PT INR D-Dimer Heparin Anti-Xa Level 0.77 H ABG pH ABG pO2 ABG HCO3 ABG O2 Saturation ABG Base Excess ABG Hemoglobin Oxyhemoglobin Sodium Potassium Chloride 95.5 L Carbon Dioxide BUN 57 H Creatinine 3.0 H Glucose 144 H POC Glucose Calcium 8.1 L Magnesium Ferritin Direct Bilirubin 0.3 H AST 179 H ALT 106 H Alkaline Phosphatase 557 H Lactate Dehydrogenase Troponin T C-Reactive Protein NT-Pro-B Natriuret Pep Total Protein 6.1 L Albumin 2.3 L Crossmatch 02/02/20 02/02/20 02/02/20 11:17 11:33 12:24 WBC RBC Hgb Hct MCV RDW Plt Count Lymph % (Auto) [place] % (Auto) Lymph # Seg Neutrophils % Seg Neuts % (Manual) Lymphocytes % (Manual) Nucleated RBC % Seg Neutrophils # Man Lymphocytes # (Manual) Monocytes # (Manual) Eosinophils # (Manual) PT INR D-Dimer Heparin Anti-Xa Level ABG pH ABG pO2 ABG HCO3 ABG O2 Saturation ABG Base Excess ABG Hemoglobin Oxyhemoglobin Sodium Potassium Chloride Carbon Dioxide BUN Creatinine Glucose POC Glucose < 40 L < 40 L 224 H Calcium Magnesium Ferritin Direct Bilirubin AST ALT Alkaline Phosphatase Lactate Dehydrogenase Troponin T C-Reactive Protein NT-Pro-B Natriuret Pep Total Protein Albumin Crossmatch 02/02/20 02/02/20 02/03/20 12:33 17:42 00:25 WBC RBC Hgb Hct MCV RDW Plt Count Lymph % (Auto) [place] % (Auto) Lymph # Seg Neutrophils % Seg Neuts % (Manual) Lymphocytes % (Manual) Nucleated RBC % Seg Neutrophils # Man Lymphocytes # (Manual) Monocytes # (Manual) Eosinophils # (Manual) PT INR D-Dimer Heparin Anti-Xa Level ABG pH ABG pO2 ABG HCO3 ABG O2 Saturation ABG Base Excess ABG Hemoglobin Oxyhemoglobin Sodium Potassium Chloride Carbon Dioxide BUN Creatinine Glucose 296 H POC Glucose 228 H < 40 L Calcium Magnesium Ferritin Direct Bilirubin AST ALT Alkaline Phosphatase Lactate Dehydrogenase Troponin T C-Reactive Protein NT-Pro-B Natriuret Pep Total Protein Albumin Crossmatch 02/03/20 02/03/20 02/03/20 00:27 03:59 03:59 WBC 22.9 H RBC 2.80 L Hgb 8.3 L Hct 27.4 L MCV 98 H RDW 19.2 H Plt Count Lymph % (Auto) [place] % (Auto) Lymph # Seg Neutrophils % Seg Neuts % (Manual) 92.0 H Lymphocytes % (Manual) 4.0 L Nucleated RBC % Seg Neutrophils # Man 21.1 H Lymphocytes # (Manual) 0.9 L Monocytes # (Manual) Eosinophils # (Manual) PT INR D-Dimer Heparin Anti-Xa Level ABG pH ABG pO2 ABG HCO3 ABG O2 Saturation ABG Base Excess ABG Hemoglobin Oxyhemoglobin Sodium 134 L Potassium 3.5 L Chloride Carbon Dioxide 21 L BUN 40 H Creatinine 2.6 H Glucose 180 H POC Glucose 198 H Calcium Magnesium Ferritin Direct Bilirubin AST ALT Alkaline Phosphatase Lactate Dehydrogenase Troponin T C-Reactive Protein NT-Pro-B Natriuret Pep Total Protein Albumin Crossmatch 02/03/20 02/03/20 02/03/20 04:48 05:00 12:21 WBC RBC Hgb Hct MCV RDW Plt Count Lymph % (Auto) [place] % (Auto) Lymph # Seg Neutrophils % Seg Neuts % (Manual) Lymphocytes % (Manual) Nucleated RBC % Seg Neutrophils # Man Lymphocytes # (Manual) Monocytes # (Manual) Eosinophils # (Manual) PT INR D-Dimer Heparin Anti-Xa Level ABG pH 7.315 L ABG pO2 97.3 H ABG HCO3 28.5 H ABG O2 Saturation ABG Base Excess ABG Hemoglobin 8.3 L Oxyhemoglobin 94.8 L Sodium Potassium Chloride Carbon Dioxide BUN Creatinine Glucose POC Glucose 182 H 201 H Calcium Magnesium Ferritin Direct Bilirubin AST ALT Alkaline Phosphatase Lactate Dehydrogenase Troponin T C-Reactive Protein NT-Pro-B Natriuret Pep Total Protein Albumin Crossmatch 02/03/20 02/03/20 02/04/20 17:43 23:36 04:50 WBC RBC Hgb Hct MCV RDW Plt Count Lymph % (Auto) [place] % (Auto) Lymph # Seg Neutrophils % Seg Neuts % (Manual) Lymphocytes % (Manual) Nucleated RBC % Seg Neutrophils # Man Lymphocytes # (Manual) Monocytes # (Manual) Eosinophils # (Manual) PT INR D-Dimer Heparin Anti-Xa Level ABG pH ABG pO2 ABG HCO3 ABG O2 Saturation ABG Base Excess ABG Hemoglobin Oxyhemoglobin Sodium 135 L Potassium Chloride 96.3 L Carbon Dioxide 21 L BUN 63 H Creatinine 4.1 H D Glucose 156 H POC Glucose 224 H 146 H Calcium 8.2 L Magnesium Ferritin Direct Bilirubin AST ALT Alkaline Phosphatase Lactate Dehydrogenase Troponin T C-Reactive Protein NT-Pro-B Natriuret Pep Total Protein Albumin Crossmatch 02/04/20 02/04/20 02/04/20 04:50 05:30 05:40 WBC 18.3 H RBC 2.31 L Hgb 6.9 L Hct 22.0 L MCV RDW 18.2 H Plt Count Lymph % (Auto) [place] % (Auto) Lymph # Seg Neutrophils % Seg Neuts % (Manual) 85.0 H Lymphocytes % (Manual) 4.0 L Nucleated RBC % 1.0 H Seg Neutrophils # Man 15.6 H Lymphocytes # (Manual) 0.7 L Monocytes # (Manual) Eosinophils # (Manual) PT INR D-Dimer Heparin Anti-Xa Level ABG pH 7.317 L ABG pO2 77.7 L ABG HCO3 27.4 H ABG O2 Saturation ABG Base Excess ABG Hemoglobin 8.0 L Oxyhemoglobin 94.5 L Sodium Potassium Chloride Carbon Dioxide BUN Creatinine Glucose POC Glucose 202 H Calcium Magnesium Ferritin Direct Bilirubin AST ALT Alkaline Phosphatase Lactate Dehydrogenase Troponin T C-Reactive Protein NT-Pro-B Natriuret Pep Total Protein Albumin Crossmatch 02/04/20 02/04/20 02/04/20 10:47 12:53 18:44 WBC RBC Hgb Hct MCV RDW Plt Count Lymph % (Auto) [place] % (Auto) Lymph # Seg Neutrophils % Seg Neuts % (Manual) Lymphocytes % (Manual) Nucleated RBC % Seg Neutrophils # Man Lymphocytes # (Manual) Monocytes # (Manual) Eosinophils # (Manual) PT INR D-Dimer Heparin Anti-Xa Level ABG pH ABG pO2 ABG HCO3 ABG O2 Saturation ABG Base Excess ABG Hemoglobin Oxyhemoglobin Sodium Potassium Chloride Carbon Dioxide BUN Creatinine Glucose POC Glucose 197 H 143 H Calcium Magnesium Ferritin Direct Bilirubin AST ALT Alkaline Phosphatase Lactate Dehydrogenase Troponin T C-Reactive Protein NT-Pro-B Natriuret Pep Total Protein Albumin Crossmatch See Detail 02/05/20 02/05/20 02/05/20 00:43 04:14 04:35 WBC RBC Hgb Hct MCV RDW Plt Count Lymph % (Auto) [place] % (Auto) Lymph # Seg Neutrophils % Seg Neuts % (Manual) Lymphocytes % (Manual) Nucleated RBC % Seg Neutrophils # Man Lymphocytes # (Manual) Monocytes # (Manual) Eosinophils # (Manual) PT INR D-Dimer Heparin Anti-Xa Level ABG pH 7.327 L ABG pO2 75.5 L ABG HCO3 30.1 H ABG O2 Saturation ABG Base Excess 3.5 H ABG Hemoglobin 8.4 L Oxyhemoglobin 93.8 L Sodium 134 L Potassium 3.3 L Chloride 97.3 L Carbon Dioxide BUN 38 H Creatinine 2.2 H Glucose 187 H POC Glucose 163 H Calcium 8.1 L Magnesium Ferritin Direct Bilirubin AST ALT Alkaline Phosphatase Lactate Dehydrogenase Troponin T C-Reactive Protein NT-Pro-B Natriuret Pep Total Protein Albumin Crossmatch 02/05/20 02/05/20 02/05/20 04:35 05:16 12:17 WBC 24.4 H RBC 2.75 L Hgb 7.9 L Hct 25.2 L MCV RDW 18.1 H Plt Count Lymph % (Auto) [place] % (Auto) Lymph # Seg Neutrophils % Seg Neuts % (Manual) 96.0 H Lymphocytes % (Manual) 1.0 L Nucleated RBC % Seg Neutrophils # Man 23.4 H Lymphocytes # (Manual) 0.2 L Monocytes # (Manual) Eosinophils # (Manual) 0.5 H PT INR D-Dimer Heparin Anti-Xa Level ABG pH ABG pO2 ABG HCO3 ABG O2 Saturation ABG Base Excess ABG Hemoglobin Oxyhemoglobin Sodium Potassium Chloride Carbon Dioxide BUN Creatinine Glucose POC Glucose 196 H 174 H Calcium Magnesium Ferritin Direct Bilirubin AST ALT Alkaline Phosphatase Lactate Dehydrogenase Troponin T C-Reactive Protein NT-Pro-B Natriuret Pep Total Protein Albumin Crossmatch 02/05/20 02/05/20 02/05/20 13:55 13:55 13:55 WBC RBC Hgb Hct MCV RDW Plt Count Lymph % (Auto) [place] % (Auto) Lymph # Seg Neutrophils % Seg Neuts % (Manual) Lymphocytes % (Manual) Nucleated RBC % Seg Neutrophils # Man Lymphocytes # (Manual) Monocytes # (Manual) Eosinophils # (Manual) PT INR D-Dimer 2896.73 H Heparin Anti-Xa Level ABG pH ABG pO2 ABG HCO3 ABG O2 Saturation ABG Base Excess ABG Hemoglobin Oxyhemoglobin Sodium Potassium Chloride Carbon Dioxide BUN Creatinine Glucose POC Glucose Calcium Magnesium Ferritin > 2000.0 H Direct Bilirubin AST ALT Alkaline Phosphatase Lactate Dehydrogenase 311 H Troponin T C-Reactive Protein 17.30 H NT-Pro-B Natriuret Pep Total Protein Albumin Crossmatch 02/05/20 02/05/20 02/06/20 17:20 21:53 04:50 WBC RBC Hgb Hct MCV RDW Plt Count Lymph % (Auto) [place] % (Auto) Lymph # Seg Neutrophils % Seg Neuts % (Manual) Lymphocytes % (Manual) Nucleated RBC % Seg Neutrophils # Man Lymphocytes # (Manual) Monocytes # (Manual) Eosinophils # (Manual) PT INR D-Dimer Heparin Anti-Xa Level ABG pH 7.349 L ABG pO2 64.5 L ABG HCO3 28.4 H ABG O2 Saturation 94.0 L ABG Base Excess ABG Hemoglobin 8.4 L Oxyhemoglobin 91.8 L Sodium Potassium Chloride Carbon Dioxide BUN Creatinine Glucose POC Glucose 191 H 200 H Calcium Magnesium Ferritin Direct Bilirubin AST ALT Alkaline Phosphatase Lactate Dehydrogenase Troponin T C-Reactive Protein NT-Pro-B Natriuret Pep Total Protein Albumin Crossmatch 02/06/20 02/06/20 02/06/20 05:55 05:55 05:58 WBC 22.4 H RBC 3.02 L Hgb 8.5 L Hct 27.6 L MCV RDW 18.8 H Plt Count Lymph % (Auto) [place] % (Auto) Lymph # Seg Neutrophils % Seg Neuts % (Manual) Lymphocytes % (Manual) Nucleated RBC % Seg Neutrophils # Man Lymphocytes # (Manual) Monocytes # (Manual) Eosinophils # (Manual) PT INR D-Dimer Heparin Anti-Xa Level ABG pH ABG pO2 ABG HCO3 ABG O2 Saturation ABG Base Excess ABG Hemoglobin Oxyhemoglobin Sodium 136 L Potassium Chloride 96.4 L Carbon Dioxide BUN 66 H Creatinine 3.6 H D Glucose 139 H POC Glucose 110 H Calcium Magnesium Ferritin Direct Bilirubin AST ALT Alkaline Phosphatase Lactate Dehydrogenase Troponin T C-Reactive Protein NT-Pro-B Natriuret Pep Total Protein Albumin Crossmatch Allied health notes reviewed: nursing
[2020-02-06] MEDS ORDERED: SODIUM CHLORIDE*PRIMING MACHINE ONLY FOR DIALYSIS MC ONE (18:10)
[2020-02-06] MEDS: NORepinephrine/NS 4 MG-250 ML 4 MG/250 ML BAG IV SCH (21:53)
[2020-02-07] MEDS: HEPARIN 5,000 UNIT/1 ML VIAL SUB-Q SCH ×2 (09:09→22:03)
[2020-02-07] MEDS: FAMOTIDINE 20 MG TAB PO SCH (09:10)
[2020-02-07] MEDS: CEFEPIME/NS 1 GM/100 ML 1 GM/100 ML BAG IV SCH (09:10)
[2020-02-07] MEDS: DOCUSATE SODIUM 100 MG/10 ML ORAL LIQD PO SCH ×2 (09:10→22:04)
[2020-02-07] MEDS: FLUCONAZOLE 200 MG 200 MG/100 ML BAG IV SCH (09:10)
[2020-02-07] MEDS: NORepinephrine/NS 4 MG-250 ML 4 MG/250 ML BAG IV SCH (09:19)
--- NOTE | 2020-02-07 10:05 | Progress Note ---
Assessment and Plan Assessment and plan: COVID- 19 infection confirmed. Bilateral pneumonia. Continue antibiotics per ID ARDS. Etiology secondary to above. Acute hypoxemic respiratory failure. Intubated, on ventilator Pulm following Chest pain Stress test neg for ischemia GERD and costochondritis in differential diagnosis Volume overload s/p hemodialysis Nephrology consulted,following Acute on Chronic diastolic CHF exacerbation Secondary to volume overload End stage renal disease on dialysis Nephrology following T2DM (type 2 diabetes mellitus) Continue continue coverage Check hemoglobin A1c Hypertension Continue antihypertensives Hyponatremia Secondary to increased volume--dilutional DVT prophylaxis On heparin and GI prophylaxis 01/11 Covid 19 survey testing sent, nasal swab done 01/10 01/12 Patient has acute resp failure. may need Oxygen on dc. awaiting Covid result 01/13 Still has shortness of breath, awaiting Covid test. 01/14 Pt still dyspneic, await covid testing, Pulse ox 83% 01/16/2020. Patient remains dyspneic. Follow-up COVID testing. 01/17/2020. Patient still requiring large amounts of oxygen. Patient currently with 15 L satting at 95%. Patient with increased inflammatory markers. Follow- up chest x-ray today. 01/18/20--Patient still requiring large amounts of oxygen. Patient currently with 15 L %. Patient with increased inflammatory markers. 01/19/2020 very elevated inflammatory markers- ferritin> 2000, CRP >24, LDH> 600, d-dimer >1000 putting her at high risk for ARDS. Continue hydroxychloroquine 400 mg PO BID for 1 day then 200 mg PO BID for 4 days (total 5 days) with zinc 220 mg PO qday. Continue ceftriaxone. ContinueCOVID isolationprecautions per [facility] protocol. Continue serial Ferritin, LDH, D-Dimer, CRP every 48h 01/20/2020. Inflammatory markers remain elevated with ferritin 1826, LDH 496, CRP 19.3, and d-dimer 2072. Patient requiring high flow nasal cannula 40L, FiO2 80%. Pulmonary following. Continue antibiotics and Plaquenil. Continue COVID [facility]precautions per [facility] protocol. Patient has a high risk mortality and remains guarded. 01/21/2020. Continue antibiotics and Plaquenil. Continue COVID isolationprecautions per [facility] protocol. Maintain sats of 88% and greater. Still on HFNC, O2 weaned to 95% overnight. Sats documented at 98%. Pulmonary following and reports If patient progresses could give bipap a one hour trial to see if there is improvement, repeat ABG, if not would suggest elective intubation 01/22/2020 Patient still critically ill. Yesterday 01/20 had cardiopulmonary arrest so now intubated in ICU. Prognosis guarded. 01/23/2020 still critically ill. No more fever. Continue vent management. 01/24/20 Still critically ill, remain on vent. Continue current management. Will call . 01/25/20 Patient still critically ill. I called Davis Hernandez and gave update. He wants DNR status and says he will request withdrawal of care if patient does not get better after weekend. I discussed with [employer]. 01/26/20 patient still intubated, on vent. She means a DNR order. Discussed with Nurse 01/26 patient still critically ill, vent dependent. 01/27 patient still intubated, on vent. On levophed to keep MAP>65mmhg 01/29/2020 patient still intubated on mechanical ventilation. AC mode ventilation with rate 20, tidal volume 400, FiO2 45% and PEEP 12. patient with no fever. Patient currently with sedation of propofol. Patient received hemodialysis yesterday with approximately 3 L removed. 01/30/2020. Patient still on mechanical ventilation. AC mode ventilation with rate 20, tidal volume 400, FiO2 45% and PEEP 8. Patient with elevated alkaline phosphatase. Check abdominal ultrasound. 01/31/2020. Patient still on mechanical ventilation. PSV mode ventilation with FiO2 50% and PEEP 8 and PS=12. Follow-up abdominal ultrasound for elevated alkaline phosphatase 02/01/2020. Patient currently with PSV FiO2 50%, pressure support 12, PEEP 8. Continue PSV trials per pulmonary. Continue Levophed to maintain MAP greater than 65. Continue propofol for sedation. 02/02/2020. Patient currently on AC mode ventilation rate 20, tidal volume 450, FiO2 50% and PEEP of 6. ABG with pH of 7.31, PCO2 56.4, and PO2 85. Patient confirmed COVID-19 positive on 01/17/2020. Patient with MOSF and guarded prognosis. Follow-up abdominal ultrasound (ordered 3 days ago) for elevated alkaline phosphatase and fevers. 02/03/2020. Patient continues on mechanical ventilation AC mode with rate 20, tidal volume 450 and PEEP of 8. Patient still with temperature 100.5. Patient off sedation but requiring Levophed at 2 mics. Patient with an episode of hypoglycemia yesterday requiring D5 half-normal. Continue to monitor for hypoglycemia. Patient with MOSF and guarded prognosis. Follow-up abdominal ultrasound (ordered 4 days ago) for elevated alkaline phosphatase and fevers. 02/04/2020. Patient continues on mechanical ventilation AC mode with rate 20, tidal volume 450, FiO2 50% and PEEP of 8. Patient continues to have fevers. Patient currently on Levophed. Continue pressors to maintain map greater than 65. Hemoglobin 6.9-1 unit PRBCs ordered. Patient may be able to wean off of Levophed with volume resuscitation of PRBCs. Follow-up abdominal ultrasound (ordered 5 days ago) for elevated alkaline phosphatase and fevers. Patient's prognosis remains guarded. 02/05/2020 patient with covid-19 infection with acute resp failure, intubated, still on vent. Now off Levophed since 02/0302/06/2020 patient with Covid-19 infection. fever yesterday, none today. Continuje current management. Prognosis guarded. 02/07/2020 patient with Covid-19 infection. Still intubated, on vent. Ongoig fever. DNR code status. prognosis remains guarded. The high probability of a clinically significant, sudden or life threatening deterioration of the [immunologic and respiratory] system(s) required my full and direct attention, intervention and personal management. The aggregate critical care time was [32] minutes. This time is in addition to time spent performing reported procedures but includes the following: [x] Data Review and interpretation [x] Patient assessment and monitoring of vital signs [x] Documentation [x] Medication orders and management History Interval history: Patient initially presented with chest tightness, SOB Now diagnosed with Covid-19 infection,acute resp failure, intubated Now having fevers Hospitalist Physical - Physical exam Narrative exam: GEN: Intubated, HEENT: Normocephalic, atraumatic, Neck: supple, No JVD Lungs: Bilateral crackles, heart;S1 and S2 reg, no murmurs, rubs or gallop Abd:soft, non tender, non distended, normal bowel sounds Ext: No edema, no clubbing, no cyanosis, Neuro: intubated, unresponsive - Constitutional Vitals: Temp Pulse Resp BP Pulse Ox 99.9 F H 99 H 25 H 97/43 100 02/07/20 04:00 02/07/20 09:18 02/07/20 09:18 02/07/20 09:18 02/07/20 09:18 General appearance: Present: no acute distress BREEZY score - Breezy Score Age > 65: (1) Yes Aspirin use within the Past 7 Days: (1) Yes 3 or more CAD Risk Factors: (1) Yes 2 or more Angina events in past 24 hrs: (1) Yes Known CAD with more than 50% Stenosis: (0) No Elevated Cardiac Markers: (0) No ST Deviation Greater than 0.5mm: (0) No BREEZY Score: 4 Results - Labs CBC & Chem 7: 02/06/20 05:55 02/06/20 05:55 Labs: Laboratory Last Values WBC 22.4 K/mm3 (4.5-11.0) H 02/06/20 05:55 RBC 3.02 M/mm3 (3.65-5.03) L 02/06/20 05:55 Hgb 8.5 gm/dl (10.1-14.3) L 02/06/20 05:55 Hct 27.6 % (30.3-42.9) L 02/06/20 05:55 MCV 91 fl (79-97) 02/06/20 05:55 MCH 28 pg (28-32) 02/06/20 05:55 MCHC 31 % (30-34) 02/06/20 05:55 RDW 18.8 % (13.2-15.2) H 02/06/20 05:55 Plt Count 398 K/mm3 (140-440) 02/06/20 05:55 Lymph % (Auto) Power System Operator 02/03/20 03:59 [place] % (Auto) Power System Operator 02/03/20 03:59 Eos % (Auto) Power System Operator 02/03/20 03:59 Baso % (Auto) Power System Operator 02/03/20 03:59 Lymph # Power System Operator 02/03/20 03:59 [place] # Power System Operator 02/03/20 03:59 Eos # Power System Operator 02/03/20 03:59 Baso # Power System Operator 02/03/20 03:59 Add Manual Diff Complete 02/05/20 04:35 Total Counted 100 02/05/20 04:35 Seg Neutrophils % Power System Operator 02/05/20 04:35 Seg Neuts % (Manual) 96.0 % (40.0-70.0) H 02/05/20 04:35 Band Neutrophils % 0 % 02/05/20 04:35 Lymphocytes % (Manual) 1.0 % (13.4-35.0) L 02/05/20 04:35 Reactive Lymphs % (Man) 0 % 02/05/20 04:35 Monocytes % (Manual) 1.0 % (0.0-7.3) 02/05/20 04:35 Eosinophils % (Manual) 2.0 % (0.0-4.3) 02/05/20 04:35 Basophils % (Manual) 0 % (0.0-1.8) 02/05/20 04:35 Metamyelocytes % 0 % 02/05/20 04:35 Myelocytes % 0 % 02/05/20 04:35 Promyelocytes % 0 % 02/05/20 04:35 Blast Cells % 0 % 02/05/20 04:35 Nucleated RBC % Not Reportable 02/05/20 04:35 Seg Neutrophils # Power System Operator 02/03/20 03:59 Seg Neutrophils # Man 23.4 K/mm3 (1.8-7.7) H 02/05/20 04:35 Band Neutrophils # 0.0 K/mm3 02/05/20 04:35 Lymphocytes # (Manual) 0.2 K/mm3 (1.2-5.4) L 02/05/20 04:35 Abs React Lymphs (Man) 0.0 K/mm3 02/05/20 04:35 Monocytes # (Manual) 0.2 K/mm3 (0.0-0.8) 02/05/20 04:35 Eosinophils # (Manual) 0.5 K/mm3 (0.0-0.4) H 02/05/20 04:35 Basophils # (Manual) 0.0 K/mm3 (0.0-0.1) 02/05/20 04:35 Metamyelocytes # 0.0 K/mm3 02/05/20 04:35 Myelocytes # 0.0 K/mm3 02/05/20 04:35 Promyelocytes # 0.0 K/mm3 02/05/20 04:35 Blast Cells # 0.0 K/mm3 02/05/20 04:35 WBC Morphology Not Reportable 02/05/20 04:35 Hypersegmented Neuts Not Reportable 02/05/20 04:35 Hyposegmented Neuts Not Reportable 02/05/20 04:35 Hypogranular Neuts Not Reportable 02/05/20 04:35 Smudge Cells Not Reportable 02/05/20 04:35 Toxic Granulation Not Reportable 02/05/20 04:35 Toxic Vacuolation Not Reportable 02/05/20 04:35 Dohle Bodies Not Reportable 02/05/20 04:35 Pelger-Huet Anomaly Not Reportable 02/05/20 04:35 Armando Rods Not Reportable 02/05/20 04:35 Platelet Estimate Consistent w auto 02/05/20 04:35 Clumped Platelets Not Reportable 02/05/20 04:35 Plt Clumps, EDTA Not Reportable 02/05/20 04:35 Large Platelets Not Reportable 02/05/20 04:35 Giant Platelets Not Reportable 02/05/20 04:35 Platelet Satelliting Not Reportable 02/05/20 04:35 Plt Morphology Comment Not Reportable 02/05/20 04:35 RBC Morphology Not Reportable 02/05/20 04:35 Dimorphic RBCs Not Reportable 02/05/20 04:35 Polychromasia Not Reportable 02/05/20 04:35 Hypochromasia Rare 02/05/20 04:35 Poikilocytosis Not Reportable 02/05/20 04:35 Anisocytosis Few 02/05/20 04:35 Microcytosis Not Reportable 02/05/20 04:35 Macrocytosis Rare 02/05/20 04:35 Spherocytes Not Reportable 02/05/20 04:35 Pappenheimer Bodies Not Reportable 02/05/20 04:35 Sickle Cells Not Reportable 02/05/20 04:35 Target Cells Not Reportable 02/05/20 04:35 Tear Drop Cells Not Reportable 02/05/20 04:35 Ovalocytes Not Reportable 02/05/20 04:35 Helmet Cells Not Reportable 02/05/20 04:35 [place] Bodies Not Reportable 02/05/20 04:35 [place] Rings Not Reportable 02/05/20 04:35 Kraen Cells Not Reportable 02/05/20 04:35 Bite Cells Not Reportable 02/05/20 04:35 Crenated Cell Not Reportable 02/05/20 04:35 Elliptocytes Not Reportable 02/05/20 04:35 Acanthocytes (Spur) Not Reportable 02/05/20 04:35 Rouleaux Not Reportable 02/05/20 04:35 Hemoglobin C Crystals Not Reportable 02/05/20 04:35 Schistocytes Not Reportable 02/05/20 04:35 Malaria parasites Not Reportable 02/05/20 04:35 Ney Bodies Not Reportable 02/05/20 04:35 Hem Pathologist Commnt No 02/05/20 04:35 PT 15.6 Sec. (12.2-14.9) H 01/09/20 12:55 INR 1.22 (0.87-1.13) H 01/09/20 12:55 APTT 31.5 Sec. (24.2-36.6) 01/09/20 12:55 D-Dimer 2896.73 ng/mlDDU (0-234) H 02/05/20 13:55 Heparin Anti-Xa Level 0.77 U.I./ml (0.3-0.7) H 02/02/20 05:44 ABG pH 7.349 pH Units (7.350-7.450) L 02/06/20 04:50 ABG pCO2 52.7 mm Hg 02/06/20 04:50 ABG pO2 64.5 mm Hg (80.0-90.0) L 02/06/20 04:50 ABG HCO3 28.4 mmol/L (20.0-26.0) H 02/06/20 04:50 ABG O2 Saturation 94.0 % (95.0-99.0) L 02/06/20 04:50 ABG O2 Content 19.2 (0.0-44) 02/06/20 04:50 ABG Base Excess 1.7 mmol/L (-2.0-3.0) 02/06/20 04:50 ABG Hemoglobin 8.4 gm/dl (12.0-16.0) L 02/06/20 04:50 ABG Carboxyhemoglobin 1.9 % (0.0-5.0) 02/06/20 04:50 ABG Methemoglobin 0.4 % (0.0-1.5) 02/06/20 04:50 Oxyhemoglobin 91.8 % (95.0-99.0) L 02/06/20 04:50 FiO2 45 % 02/06/20 04:50 Sodium 136 mmol/L (137-145) L 02/06/20 05:55 Potassium 3.8 mmol/L (3.6-5.0) 02/06/20 05:55 Chloride 96.4 mmol/L (98-107) L 02/06/20 05:55 Carbon Dioxide 24 mmol/L (22-30) 02/06/20 05:55 Anion Gap 19 mmol/L 02/06/20 05:55 BUN 66 mg/dL (7-17) H 02/06/20 05:55 Creatinine 3.6 mg/dL (0.7-1.2) H D 02/06/20 05:55 Estimated GFR 15 ml/min 02/06/20 05:55 BUN/Creatinine Ratio 18 % 02/06/20 05:55 Glucose 139 mg/dL (65-100) H 02/06/20 05:55 POC Glucose 145 (70-105) H 02/07/20 05:04 Hemoglobin A1c 5.0 % (4-6) 01/10/20 06:54 Calcium 8.5 mg/dL (8.4-10.2) 02/06/20 05:55 Phosphorus 3.30 mg/dL (2.5-4.5) 01/12/20 16:01 Magnesium 2.00 mg/dL (1.7-2.3) 01/13/20 06:11 Ferritin > 2000.0 ng/mL (13.0-400.0) H 02/05/20 13:55 Total Bilirubin 0.50 mg/dL (0.1-1.2) 02/02/20 05:44 Direct Bilirubin 0.3 mg/dL (0-0.2) H 02/02/20 05:44 Indirect Bilirubin 0.2 mg/dL 02/02/20 05:44 AST 179 units/L (5-40) H 02/02/20 05:44 ALT 106 units/L (7-56) H 02/02/20 05:44 Alkaline Phosphatase 557 units/L (35-129) H 02/02/20 05:44 Lactate Dehydrogenase 311 units/L (91-180) H 02/05/20 13:55 Troponin T 0.315 ng/mL (0.00-0.029) H* 01/10/20 06:54 C-Reactive Protein 17.30 mg/dL (0.00-1.30) H 02/05/20 13:55 NT-Pro-B Natriuret Pep 77250 pg/mL (0-900) H 01/09/20 12:55 Total Protein 6.1 g/dL (6.3-8.2) L 02/02/20 05:44 Albumin 2.3 g/dL (3.9-5) L 02/02/20 05:44 Albumin/Globulin Ratio 0.6 % 02/02/20 05:44 Triglycerides 56 mg/dL (2-149) 01/30/20 04:04 Cholesterol 123 mg/dL (50-199) 01/09/20 12:55 LDL Cholesterol Direct 66 mg/dL (50-130) 01/09/20 12:55 HDL Cholesterol 47 mg/dL (40-59) 01/09/20 12:55 Cholesterol/HDL Ratio 2.61 % 01/09/20 12:55 Random Vancomycin 31.4 ug/mL (0-40.0) 02/06/20 05:55 Hepatitis A IgM Ab Non-reactive (NonReactive) 01/21/20 23:40 Hep Bs Antigen Non-reactive (Negative) 01/21/20 23:40 Hep B Core IgM Ab Non-reactive (NonReactive) 01/21/20 23:40 Hepatitis C Antibody Non-reactive (NonReactive) 01/21/20 23:40 Miscellaneous Test See scanned result 01/11/20 Unknown Miscellaneous Test See scanned result 01/11/20 Unknown Blood Type O POSITIVE 02/04/20 10:47 Antibody Screen Negative 02/04/20 10:47 Crossmatch See Detail 02/04/20 10:47 Microbiology: Microbiology 02/04/20 Unknown Peripheral/Venous Blood Culture - Preliminary NO GROWTH AFTER 48 HOURS 02/04/20 Unknown Peripheral/Venous Blood Culture - Preliminary NO GROWTH AFTER 48 HOURS Pleitez/IV: Voiding Method Incontinent IV Catheter Type [Left Chest] Infusaport IV Catheter Type [Right Peripheral IV External Jugular] IV Catheter Type [Left INT / Saline Lock External Jugular] IV Catheter Type [Left Upper IVAD / Port arm] Active Medications - Current Medications Current Medications: Generic Name Dose Route Start Last Admin Trade Name Freq PRN Reason Stop Dose Admin Acetaminophen 650 mg 01/09/20 16:33 02/05/20 05:58 Tylenol PO 650 mg Q4H PRN Administration Pain MILD(1-3)/Fever >100.5/MEANS Lipase/Protease/Amylase 1 each 01/23/20 14:[address] 10,500 Unit FEEDTUBE PRN PRN For Clogged Feeding Tube Atorvastatin Calcium 40 mg 01/09/20 22:00 02/06/20 21:53 Lipitor PO 40 mg QHS PHILLY Administration Dextrose 50 ml 01/23/20 07:26 02/02/20 11:33 D50w (25gm) Syringe IV 50 ml Q30MIN PRN Administration BLOOD GLUCOSE < 70 Dextrose 25 ml 01/24/20 08:58 01/24/20 13:41 D50w (25gm) Syringe IV 25 ml Q4H PRN Administration BG < 80 MG/DL Docusate Sodium 100 mg 01/25/20 22:00 02/07/20 09:10 Colace PO 100 mg BID PHILLY Administration Epoetin Helio 20,000 unit 02/04/20 12:00 02/04/20 13:00 Procrit SUB-Q 20,000 unit SILVERIO PHILLY Administration Famotidine 20 mg 01/09/20 22:00 02/07/20 09:10 Pepcid PO 20 mg DAILY PHILLY Administration Heparin Sodium (Porcine) 5,000 unit 02/07/20 10:00 02/07/20 09:09 Heparin SUB-Q 5,000 unit Q12HR PHILLY Administration Norepinephrine 4 mg in 250 mls @ 7.5 mls/hr 01/21/20 18:00 02/07/20 09:19 Levophed Drip 4 Mg/Ns 250 Ml IV 2 mcg/min TITR PHILLY 7.5 mls/hr Administration Protocol 2 MCG/MIN Propofol 1,000 mg in 100 mls @ 2.265 mls/hr 01/22/20 09:00 01/30/20 14:25 Diprivan 10 Mg/Ml IV 0 mcg/kg/min TITR PHILLY 0 mls/hr Titration Protocol 5 MCG/KG/MIN Sodium Chloride 100 mls @ 999 mls/hr 02/01/20 09:47 Nacl 0.9% IV SILVERIO PRN Hypotension Cefepime HCl 1 gm in 100 mls @ 200 mls/hr 02/04/20 14:00 02/07/20 09:10 Cefepime/Ns 1 Gm/100 Ml IV 200 mls/hr Q24HR PHILLY Administration Protocol Fluconazole 200 mg in 100 mls @ 100 mls/hr 02/04/20 13:00 02/07/20 09:10 Diflucan IV 100 mls/hr Q24HR PHILLY Administration Protocol Lorazepam 2 mg 01/23/20 15:36 Ativan IV Q10MIN PRN Agitation Ondansetron HCl 4 mg 01/09/20 16:33 01/20/20 10:19 Zofran IV 4 mg Q8H PRN Administration Nausea And Vomiting Simple Syrup 15 ml 01/23/20 14:28 Simple Syrup FEEDTUBE PRN PRN Hypoglycemia Simple Syrup 30 ml 01/23/20 14:28 Simple Syrup FEEDTUBE PRN PRN Hypoglycemia Sodium Bicarbonate 325 mg 01/23/20 14:28 Sodium Bicarbonate FEEDTUBE PRN PRN For Clogged Feeding Tube Sodium Chloride 10 ml 01/09/20 22:00 02/07/20 09:10 Sodium Chloride Flush Syringe 10 Ml IV 10 ml BID PHILLY Administration Sodium Chloride 10 ml 01/09/20 16:33 Sodium Chloride Flush Syringe 10 Ml IV PRN PRN LINE FLUSH Valsartan 80 mg 01/10/20 10:00 02/06/20 10:49 Diovan PO Not Given DAILY PHILLY Nutrition/Malnutrition Assess - Dietary Evaluation Nutrition/Malnutrition Findings: Nutrition Notes Start: 01/17/20 13:49 Freq: Status: Active Protocol: Document 02/04/20 13:51 LM (Rec: 02/04/20 13:56 LM [id number]) Nutrition Notes Initial or Follow up Reassessment Current Diagnosis CKD (stage V CKD),Diabetes, Hypertension,Heart Failure, Respiratory Failure Other Pertinent Diagnosis on HD, Bilat pneu, COVID-19 (+ ) Current Diet Nepro 1.8 at 35ml/hr Labs/Tests Na 135 BUN 63 Cr 4.1 BG 156 Pertinent Medications Levophed Height 5 ft 6 in Weight 78 kg [place] Body Weight (kg) 59.09 BMI 27.7 Subjective/Other Information Nepro running at goal rate and pt is tolerating. Percent of energy/protein needs met: 94%/75% Burn Absent Trauma Absent Current % PO Negligible Minimum of two criteria Yes Fluid Accumulation Mild (non-severe) Reduced Stitch Bonding Machine Tender Strength Measurably Reduced (severe) #1 Nutrition Diagnosis Malnutrition Diagnosis Progress(for reassessment Continues documentation) Is patient on ventilator? No Is Patient Ambulatory and/or Out of Bed No REE-([facility]-confined to bed) [phone] Calculation Used for Recommendations [facility] Additional Notes Protein: 91-151g (1.2-2g/kg) Fluid: per MD Nutrition Intervention Change Diet Order: Continue TF Nutrition Support: Nepro 1.8 at 35ml/hr (goal rate) Flush 50ml q4hr for hyponatremia Flush 150ml q4h once hyponatremia resolves Kcal 1,512 Protein (gm) 68 Fluid (mL) 611 Goal #1 TF tolerance Goal #2 Meet at least 75% of energy and protein needs via TF Anticipated Discharge Needs: unable to determine at this time Follow-Up By: 02/07/20 Additional Comments F/U for TF tolerance, Na lab
[2020-02-07] MEDS: VALSARTAN 40 MG TAB PO SCH (10:36)
--- NOTE | 2020-02-07 10:56 | Progress Note ---
Assessment and Plan 64 y/o female with COVID positive, viral pneumonia with some pulmonary vascular congestion superimposed. 1. Continue PSV trials. Hopeful to wean Pressure some today. 2. HD per renal, will do today. 3. Changed back to prophylactic dosing for VTE as not confirmed the presence of VTE 4. Overall prognosis is guarded to poor, especially with prior history of ESRD on HD. Continue supportive care. IMS spoke with who has made patient a DNR. I have signed. Hopeful she can pull through but do agree with DNR status given evidence of increased mortality throughout [place] from this novel [place] virus. Spoke with IMS again as they will speak with today. Hopeful he will continue as she has made improvements. Please continue daily PSV's, hoping her mental state will improve and she will clear the sedation and be extubated. Otherwise consider trach and peg and follow up from there. Will speak with CM about this. MOST facilites are requiring one to two negative COVID tests and no fever. First repeat test out today. CCT 31 minutes. Subjective Date of service: 02/07/20 Principal diagnosis: Pneumonia Interval history: HD on yesterday but does not appear that fluid was removed. Tolerated PSV 15/6 all night and remains on it this morning. NO ABG this am. Sent repeat COVID 19 test today. Fever curve hopefully is trending down as no fevers now in 48 hours. Objective Vital Signs - 12hr 02/06/20 02/07/20 02/07/20 23:00 00:00 00:09 Temperature 100.1 F H Pulse Rate 104 H 104 H 102 H Pulse Rate [ From Monitor] Respiratory 20 25 H Rate Blood Pressure 116/51 103/47 103/47 O2 Sat by Pulse 99 100 100 Oximetry 02/07/20 02/07/20 02/07/20 01:00 02:00 03:00 Temperature Pulse Rate 105 H 104 H 103 H Pulse Rate [ From Monitor] Respiratory 26 H 23 28 H Rate Blood Pressure 111/51 113/51 111/46 O2 Sat by Pulse 100 100 100 Oximetry 02/07/20 02/07/20 02/07/20 04:00 04:46 05:00 Temperature 99.9 F H Pulse Rate 104 H 103 H 103 H Pulse Rate [ From Monitor] Respiratory 23 26 H Rate Blood Pressure 111/52 106/50 103/45 O2 Sat by Pulse 100 100 100 Oximetry 02/07/20 02/07/20 02/07/20 06:00 07:01 08:00 Temperature Pulse Rate 107 H 108 H 100 H Pulse Rate [ 100 H From Monitor] Respiratory 28 H 26 H 27 H Rate Blood Pressure 131/52 111/49 O2 Sat by Pulse 100 100 100 Oximetry 02/07/20 02/07/20 02/07/20 08:01 09:00 09:18 Temperature Pulse Rate 102 H 99 H 99 H Pulse Rate [ From Monitor] Respiratory 17 24 25 H Rate Blood Pressure 97/38 100/43 97/43 O2 Sat by Pulse 100 99 100 Oximetry 02/07/20 10:01 Temperature Pulse Rate 109 H Pulse Rate [ From Monitor] Respiratory 22 Rate Blood Pressure 120/49 O2 Sat by Pulse 98 Oximetry Constitutional: other (orally intubated, not sedated currently on vent. on AC 450 50) Eyes: non-icteric ENT: oropharynx moist Neck: supple Effort: normal Ascultation: Bilateral: rales Cardiovascular: regular rate and rhythm (no mrg) Gastrointestinal: normoactive bowel sounds, soft, non-tender, non-distended Integumentary: normal Extremities: no cyanosis, no edema, pink and warm Neurologic: unable to assess Psychiatric: mood appropriate, affect normal CBC and BMP: 02/06/20 05:55 02/06/20 05:55 ABG, PT/INR, D-dimer: ABG ABG pH 7.349 pH Units (7.350-7.450) L 02/06/20 04:50 ABG pCO2 52.7 mm Hg 02/06/20 04:50 ABG pO2 64.5 mm Hg (80.0-90.0) L 02/06/20 04:50 ABG O2 Saturation 94.0 % (95.0-99.0) L 02/06/20 04:50 PT/INR, D-dimer PT 15.6 Sec. (12.2-14.9) H 01/09/20 12:55 INR 1.22 (0.87-1.13) H 01/09/20 12:55 D-Dimer 2896.73 ng/mlDDU (0-234) H 02/05/20 13:55 Abnormal lab findings: Abnormal Labs 01/09/20 01/09/20 01/09/20 12:55 12:55 12:55 WBC 4.4 L RBC 3.44 L Hgb Hct MCV RDW 17.0 H Plt Count Lymph % (Auto) 6.8 L [place] % (Auto) 13.6 H Lymph # 0.3 L Seg Neutrophils % 79.0 H Seg Neuts % (Manual) Lymphocytes % (Manual) Nucleated RBC % Seg Neutrophils # Man Lymphocytes # (Manual) Monocytes # (Manual) Eosinophils # (Manual) PT 15.6 H INR 1.22 H D-Dimer Heparin Anti-Xa Level ABG pH ABG pO2 ABG HCO3 ABG O2 Saturation ABG Base Excess ABG Hemoglobin Oxyhemoglobin Sodium 130 L Potassium Chloride 88.9 L Carbon Dioxide 20 L BUN 41 H Creatinine 7.6 H Glucose 115 H POC Glucose Calcium Magnesium Ferritin Direct Bilirubin AST ALT Alkaline Phosphatase 153 H Lactate Dehydrogenase Troponin T 0.382 H* C-Reactive Protein NT-Pro-B Natriuret Pep 07871 H Total Protein Albumin 3.2 L Crossmatch 01/09/20 01/10/20 01/10/20 20:14 00:16 06:54 WBC 3.3 L RBC 3.00 L Hgb 9.2 L Hct 27.8 L MCV RDW 17.2 H Plt Count Lymph % (Auto) 8.9 L [place] % (Auto) 11.5 H Lymph # 0.3 L Seg Neutrophils % 79.1 H Seg Neuts % (Manual) Lymphocytes % (Manual) Nucleated RBC % Seg Neutrophils # Man Lymphocytes # (Manual) Monocytes # (Manual) Eosinophils # (Manual) PT INR D-Dimer Heparin Anti-Xa Level ABG pH ABG pO2 ABG HCO3 ABG O2 Saturation ABG Base Excess ABG Hemoglobin Oxyhemoglobin Sodium Potassium Chloride Carbon Dioxide BUN Creatinine Glucose POC Glucose Calcium Magnesium Ferritin Direct Bilirubin AST ALT Alkaline Phosphatase Lactate Dehydrogenase Troponin T 0.349 H* 0.328 H* C-Reactive Protein NT-Pro-B Natriuret Pep Total Protein Albumin Crossmatch 01/10/20 01/10/20 01/11/20 06:54 06:54 16:45 WBC RBC Hgb Hct MCV RDW Plt Count Lymph % (Auto) [place] % (Auto) Lymph # Seg Neutrophils % Seg Neuts % (Manual) Lymphocytes % (Manual) Nucleated RBC % Seg Neutrophils # Man Lymphocytes # (Manual) Monocytes # (Manual) Eosinophils # (Manual) PT INR D-Dimer Heparin Anti-Xa Level ABG pH ABG pO2 ABG HCO3 ABG O2 Saturation ABG Base Excess ABG Hemoglobin Oxyhemoglobin Sodium 133 L Potassium Chloride 90.6 L Carbon Dioxide BUN 50 H Creatinine 8.4 H Glucose 101 H POC Glucose 106 H Calcium 8.1 L Magnesium Ferritin Direct Bilirubin AST ALT Alkaline Phosphatase 148 H Lactate Dehydrogenase Troponin T 0.315 H* C-Reactive Protein NT-Pro-B Natriuret Pep Total Protein 5.4 L Albumin 2.7 L Crossmatch 01/12/20 01/13/20 01/13/20 16:01 06:11 06:11 WBC 3.1 L RBC 3.25 L Hgb 9.8 L Hct MCV RDW 17.2 H Plt Count 136 L Lymph % (Auto) [place] % (Auto) Lymph # Seg Neutrophils % Seg Neuts % (Manual) Lymphocytes % (Manual) Nucleated RBC % Seg Neutrophils # Man Lymphocytes # (Manual) Monocytes # (Manual) Eosinophils # (Manual) PT INR D-Dimer Heparin Anti-Xa Level ABG pH ABG pO2 ABG HCO3 ABG O2 Saturation ABG Base Excess ABG Hemoglobin Oxyhemoglobin Sodium 135 L Potassium Chloride 93.4 L Carbon Dioxide BUN 19 H Creatinine 4.5 H Glucose 120 H POC Glucose Calcium 7.8 L Magnesium 1.40 L Ferritin Direct Bilirubin AST ALT Alkaline Phosphatase Lactate Dehydrogenase Troponin T C-Reactive Protein NT-Pro-B Natriuret Pep Total Protein Albumin Crossmatch 01/16/20 01/16/20 01/16/20 08:35 11:49 14:11 WBC RBC Hgb Hct MCV RDW Plt Count Lymph % (Auto) [place] % (Auto) Lymph # Seg Neutrophils % Seg Neuts % (Manual) Lymphocytes % (Manual) Nucleated RBC % Seg Neutrophils # Man Lymphocytes # (Manual) Monocytes # (Manual) Eosinophils # (Manual) PT INR D-Dimer Heparin Anti-Xa Level ABG pH ABG pO2 48.4 L ABG HCO3 30.5 H ABG O2 Saturation 81.9 L ABG Base Excess 4.6 H ABG Hemoglobin 10.5 L Oxyhemoglobin 80.1 L Sodium Potassium Chloride Carbon Dioxide BUN Creatinine Glucose POC Glucose 126 H 119 H Calcium Magnesium Ferritin Direct Bilirubin AST ALT Alkaline Phosphatase Lactate Dehydrogenase Troponin T C-Reactive Protein NT-Pro-B Natriuret Pep Total Protein Albumin Crossmatch 04/11/0501/16/20 01/16/20 15:38 15:38 15:38 WBC RBC Hgb Hct MCV RDW Plt Count Lymph % (Auto) [place] % (Auto) Lymph # Seg Neutrophils % Seg Neuts % (Manual) Lymphocytes % (Manual) Nucleated RBC % Seg Neutrophils # Man Lymphocytes # (Manual) Monocytes # (Manual) Eosinophils # (Manual) PT INR D-Dimer 1104.64 H Heparin Anti-Xa Level ABG pH ABG pO2 ABG HCO3 ABG O2 Saturation ABG Base Excess ABG Hemoglobin Oxyhemoglobin Sodium Potassium Chloride Carbon Dioxide BUN Creatinine Glucose POC Glucose Calcium Magnesium Ferritin > 2000.0 H Direct Bilirubin AST ALT Alkaline Phosphatase Lactate Dehydrogenase 690 H Troponin T C-Reactive Protein 24.10 H NT-Pro-B Natriuret Pep Total Protein Albumin Crossmatch 01/16/20 01/18/20 01/18/20 18:11 06:25 06:25 WBC RBC 3.15 L Hgb 9.4 L Hct 29.4 L MCV RDW 17.5 H Plt Count 135 L Lymph % (Auto) 3.8 L [place] % (Auto) Lymph # 0.2 L Seg Neutrophils % 88.8 H Seg Neuts % (Manual) Lymphocytes % (Manual) Nucleated RBC % Seg Neutrophils # Man Lymphocytes # (Manual) Monocytes # (Manual) Eosinophils # (Manual) PT INR D-Dimer Heparin Anti-Xa Level ABG pH ABG pO2 ABG HCO3 ABG O2 Saturation ABG Base Excess ABG Hemoglobin Oxyhemoglobin Sodium Potassium Chloride 96.8 L Carbon Dioxide BUN 26 H Creatinine 4.2 H Glucose 115 H POC Glucose 130 H Calcium 8.2 L Magnesium Ferritin Direct Bilirubin AST ALT Alkaline Phosphatase Lactate Dehydrogenase 537 H Troponin T C-Reactive Protein 17.10 H NT-Pro-B Natriuret Pep Total Protein Albumin Crossmatch 01/18/20 01/18/20 01/18/20 06:25 06:25 12:15 WBC RBC Hgb Hct MCV RDW Plt Count Lymph % (Auto) [place] % (Auto) Lymph # Seg Neutrophils % Seg Neuts % (Manual) Lymphocytes % (Manual) Nucleated RBC % Seg Neutrophils # Man Lymphocytes # (Manual) Monocytes # (Manual) Eosinophils # (Manual) PT INR D-Dimer 938.03 H Heparin Anti-Xa Level ABG pH ABG pO2 66.5 L ABG HCO3 30.1 H ABG O2 Saturation 93.2 L ABG Base Excess 4.6 H ABG Hemoglobin 10.0 L Oxyhemoglobin 91.3 L Sodium Potassium Chloride Carbon Dioxide BUN Creatinine Glucose POC Glucose Calcium Magnesium Ferritin 3105.0 H Direct Bilirubin AST ALT Alkaline Phosphatase Lactate Dehydrogenase Troponin T C-Reactive Protein NT-Pro-B Natriuret Pep Total Protein Albumin Crossmatch 01/20/20 01/20/20 01/20/20 07:37 07:37 07:37 WBC RBC Hgb Hct MCV RDW Plt Count Lymph % (Auto) [place] % (Auto) Lymph # Seg Neutrophils % Seg Neuts % (Manual) Lymphocytes % (Manual) Nucleated RBC % Seg Neutrophils # Man Lymphocytes # (Manual) Monocytes # (Manual) Eosinophils # (Manual) PT INR D-Dimer 2072.25 H Heparin Anti-Xa Level ABG pH ABG pO2 ABG HCO3 ABG O2 Saturation ABG Base Excess ABG Hemoglobin Oxyhemoglobin Sodium Potassium Chloride Carbon Dioxide BUN Creatinine Glucose POC Glucose Calcium Magnesium Ferritin 1826.0 H Direct Bilirubin AST ALT Alkaline Phosphatase Lactate Dehydrogenase 496 H Troponin T C-Reactive Protein 19.30 H NT-Pro-B Natriuret Pep Total Protein Albumin Crossmatch 01/20/20 01/21/20 01/21/20 17:30 03:59 17:35 WBC RBC Hgb Hct MCV RDW Plt Count Lymph % (Auto) [place] % (Auto) Lymph # Seg Neutrophils % Seg Neuts % (Manual) Lymphocytes % (Manual) Nucleated RBC % Seg Neutrophils # Man Lymphocytes # (Manual) Monocytes # (Manual) Eosinophils # (Manual) PT INR D-Dimer Heparin Anti-Xa Level ABG pH ABG pO2 61.1 L 67.4 L ABG HCO3 29.9 H 26.2 H ABG O2 Saturation 91.7 L 93.4 L ABG Base Excess 4.9 H ABG Hemoglobin 9.0 L 9.1 L Oxyhemoglobin 89.5 L 91.1 L Sodium 136 L Potassium Chloride Carbon Dioxide BUN 36 H Creatinine 4.9 H Glucose POC Glucose Calcium Magnesium Ferritin Direct Bilirubin AST ALT Alkaline Phosphatase Lactate Dehydrogenase Troponin T C-Reactive Protein NT-Pro-B Natriuret Pep Total Protein Albumin Crossmatch 01/21/20 01/22/20 01/22/20 Unknown 03:41 03:41 WBC RBC Hgb Hct MCV RDW Plt Count Lymph % (Auto) [place] % (Auto) Lymph # Seg Neutrophils % Seg Neuts % (Manual) Lymphocytes % (Manual) Nucleated RBC % Seg Neutrophils # Man Lymphocytes # (Manual) Monocytes # (Manual) Eosinophils # (Manual) PT INR D-Dimer Heparin Anti-Xa Level ABG pH 7.465 H ABG pO2 48.9 L ABG HCO3 26.6 H ABG O2 Saturation 85.7 L ABG Base Excess ABG Hemoglobin 10.4 L Oxyhemoglobin 83.5 L Sodium Potassium Chloride Carbon Dioxide BUN Creatinine Glucose POC Glucose Calcium Magnesium Ferritin 6071.0 H Direct Bilirubin AST ALT Alkaline Phosphatase Lactate Dehydrogenase 963 H Troponin T C-Reactive Protein 30.00 H NT-Pro-B Natriuret Pep Total Protein Albumin Crossmatch 01/22/20 01/22/20 01/22/20 03:41 07:47 11:20 WBC RBC Hgb Hct MCV RDW Plt Count Lymph % (Auto) [place] % (Auto) Lymph # Seg Neutrophils % Seg Neuts % (Manual) Lymphocytes % (Manual) Nucleated RBC % Seg Neutrophils # Man Lymphocytes # (Manual) Monocytes # (Manual) Eosinophils # (Manual) PT INR D-Dimer > 08590 H Heparin Anti-Xa Level ABG pH ABG pO2 66.7 L ABG HCO3 28.7 H ABG O2 Saturation 91.9 L ABG Base Excess ABG Hemoglobin 9.1 L Oxyhemoglobin 89.5 L Sodium Potassium Chloride 94.3 L Carbon Dioxide BUN 53 H Creatinine 6.5 H Glucose POC Glucose Calcium Magnesium Ferritin Direct Bilirubin AST ALT Alkaline Phosphatase Lactate Dehydrogenase Troponin T C-Reactive Protein NT-Pro-B Natriuret Pep Total Protein Albumin Crossmatch 01/22/20 01/22/20 01/23/20 11:49 Unknown 04:55 WBC 15.1 H RBC 3.05 L Hgb 8.8 L Hct 28.3 L MCV RDW 17.8 H Plt Count 125 L Lymph % (Auto) [place] % (Auto) Lymph # Seg Neutrophils % Seg Neuts % (Manual) Lymphocytes % (Manual) Nucleated RBC % Seg Neutrophils # Man Lymphocytes # (Manual) Monocytes # (Manual) Eosinophils # (Manual) PT INR D-Dimer Heparin Anti-Xa Level ABG pH 7.340 L ABG pO2 77.7 L 136.3 H ABG HCO3 27.6 H 28.8 H ABG O2 Saturation ABG Base Excess ABG Hemoglobin 9.3 L 10.9 L Oxyhemoglobin 94.2 L Sodium Potassium Chloride Carbon Dioxide BUN Creatinine Glucose POC Glucose Calcium Magnesium Ferritin Direct Bilirubin AST ALT Alkaline Phosphatase Lactate Dehydrogenase Troponin T C-Reactive Protein NT-Pro-B Natriuret Pep Total Protein Albumin Crossmatch 01/23/20 01/23/20 01/23/20 06:23 07:07 12:23 WBC RBC Hgb Hct MCV RDW Plt Count Lymph % (Auto) [place] % (Auto) Lymph # Seg Neutrophils % Seg Neuts % (Manual) Lymphocytes % (Manual) Nucleated RBC % Seg Neutrophils # Man Lymphocytes # (Manual) Monocytes # (Manual) Eosinophils # (Manual) PT INR D-Dimer Heparin Anti-Xa Level ABG pH ABG pO2 ABG HCO3 ABG O2 Saturation ABG Base Excess ABG Hemoglobin Oxyhemoglobin Sodium Potassium Chloride Carbon Dioxide BUN Creatinine Glucose POC Glucose 57 L 127 H 131 H Calcium Magnesium Ferritin Direct Bilirubin AST ALT Alkaline Phosphatase Lactate Dehydrogenase Troponin T C-Reactive Protein NT-Pro-B Natriuret Pep Total Protein Albumin Crossmatch 01/23/20 01/23/20 01/24/20 Unknown Unknown 04:00 WBC 16.2 H RBC 3.08 L Hgb 8.9 L Hct 28.6 L MCV RDW 17.8 H Plt Count 139 L Lymph % (Auto) [place] % (Auto) Lymph # Seg Neutrophils % Seg Neuts % (Manual) Lymphocytes % (Manual) Nucleated RBC % Seg Neutrophils # Man Lymphocytes # (Manual) Monocytes # (Manual) Eosinophils # (Manual) PT INR D-Dimer Heparin Anti-Xa Level < 0.10 L ABG pH ABG pO2 ABG HCO3 ABG O2 Saturation ABG Base Excess ABG Hemoglobin Oxyhemoglobin Sodium Potassium Chloride Carbon Dioxide BUN Creatinine Glucose POC Glucose Calcium Magnesium Ferritin 4195.0 H Direct Bilirubin AST ALT Alkaline Phosphatase Lactate Dehydrogenase Troponin T C-Reactive Protein NT-Pro-B Natriuret Pep Total Protein Albumin Crossmatch 01/24/20 01/24/20 01/24/20 04:00 04:00 04:00 WBC RBC Hgb Hct MCV RDW Plt Count Lymph % (Auto) [place] % (Auto) Lymph # Seg Neutrophils % Seg Neuts % (Manual) Lymphocytes % (Manual) Nucleated RBC % Seg Neutrophils # Man Lymphocytes # (Manual) Monocytes # (Manual) Eosinophils # (Manual) PT INR D-Dimer 5783.11 H Heparin Anti-Xa Level ABG pH 7.188 L* ABG pO2 70.8 L ABG HCO3 32.2 H ABG O2 Saturation 90.4 L ABG Base Excess ABG Hemoglobin 8.5 L Oxyhemoglobin 88.1 L Sodium Potassium Chloride Carbon Dioxide BUN Creatinine Glucose POC Glucose Calcium Magnesium Ferritin Direct Bilirubin AST ALT Alkaline Phosphatase Lactate Dehydrogenase 474 H Troponin T C-Reactive Protein 29.80 H NT-Pro-B Natriuret Pep Total Protein Albumin Crossmatch 01/24/20 01/24/20 01/24/20 05:20 05:51 09:14 WBC RBC Hgb Hct MCV RDW Plt Count Lymph % (Auto) [place] % (Auto) Lymph # Seg Neutrophils % Seg Neuts % (Manual) Lymphocytes % (Manual) Nucleated RBC % Seg Neutrophils # Man Lymphocytes # (Manual) Monocytes # (Manual) Eosinophils # (Manual) PT INR D-Dimer Heparin Anti-Xa Level ABG pH 7.214 L ABG pO2 71.7 L ABG HCO3 31.5 H ABG O2 Saturation 91.8 L ABG Base Excess ABG Hemoglobin 9.1 L Oxyhemoglobin 89.3 L Sodium Potassium Chloride Carbon Dioxide BUN Creatinine Glucose POC Glucose 50 L 53 L Calcium Magnesium Ferritin Direct Bilirubin AST ALT Alkaline Phosphatase Lactate Dehydrogenase Troponin T C-Reactive Protein NT-Pro-B Natriuret Pep Total Protein Albumin Crossmatch 01/24/20 01/24/20 01/24/20 15:10 18:04 21:10 WBC RBC Hgb Hct MCV RDW Plt Count Lymph % (Auto) [place] % (Auto) Lymph # Seg Neutrophils % Seg Neuts % (Manual) Lymphocytes % (Manual) Nucleated RBC % Seg Neutrophils # Man Lymphocytes # (Manual) Monocytes # (Manual) Eosinophils # (Manual) PT INR D-Dimer Heparin Anti-Xa Level ABG pH ABG pO2 ABG HCO3 ABG O2 Saturation ABG Base Excess ABG Hemoglobin Oxyhemoglobin Sodium Potassium Chloride Carbon Dioxide BUN Creatinine Glucose POC Glucose 114 H 51 L 144 H Calcium Magnesium Ferritin Direct Bilirubin AST ALT Alkaline Phosphatase Lactate Dehydrogenase Troponin T C-Reactive Protein NT-Pro-B Natriuret Pep Total Protein Albumin Crossmatch 01/24/20 01/25/20 01/25/20 Unknown 00:32 03:50 WBC 13.0 H RBC 3.10 L Hgb 9.2 L Hct 29.0 L MCV RDW 17.7 H Plt Count Lymph % (Auto) [place] % (Auto) Lymph # Seg Neutrophils % Seg Neuts % (Manual) 92.0 H Lymphocytes % (Manual) 5.0 L Nucleated RBC % Seg Neutrophils # Man 12.0 H Lymphocytes # (Manual) 0.7 L Monocytes # (Manual) Eosinophils # (Manual) PT INR D-Dimer Heparin Anti-Xa Level ABG pH 7.291 L ABG pO2 71.3 L ABG HCO3 30.6 H ABG O2 Saturation 93.6 L ABG Base Excess 3.3 H ABG Hemoglobin 8.1 L Oxyhemoglobin 91.2 L Sodium Potassium Chloride Carbon Dioxide BUN Creatinine Glucose POC Glucose 114 H Calcium Magnesium Ferritin Direct Bilirubin AST ALT Alkaline Phosphatase Lactate Dehydrogenase Troponin T C-Reactive Protein NT-Pro-B Natriuret Pep Total Protein Albumin Crossmatch 01/25/20 01/25/20 01/25/20 04:22 06:05 17:28 WBC RBC Hgb Hct MCV RDW Plt Count Lymph % (Auto) [place] % (Auto) Lymph # Seg Neutrophils % Seg Neuts % (Manual) Lymphocytes % (Manual) Nucleated RBC % Seg Neutrophils # Man Lymphocytes # (Manual) Monocytes # (Manual) Eosinophils # (Manual) PT INR D-Dimer Heparin Anti-Xa Level ABG pH 7.304 L ABG pO2 69.5 L ABG HCO3 29.7 H ABG O2 Saturation 93.2 L ABG Base Excess ABG Hemoglobin 8.7 L Oxyhemoglobin 90.7 L Sodium Potassium Chloride Carbon Dioxide BUN Creatinine Glucose POC Glucose 136 H 127 H Calcium Magnesium Ferritin Direct Bilirubin AST ALT Alkaline Phosphatase Lactate Dehydrogenase Troponin T C-Reactive Protein NT-Pro-B Natriuret Pep Total Protein Albumin Crossmatch 01/26/20 01/26/20 01/26/20 00:20 02:31 02:31 WBC RBC Hgb Hct MCV RDW Plt Count Lymph % (Auto) [place] % (Auto) Lymph # Seg Neutrophils % Seg Neuts % (Manual) Lymphocytes % (Manual) Nucleated RBC % Seg Neutrophils # Man Lymphocytes # (Manual) Monocytes # (Manual) Eosinophils # (Manual) PT INR D-Dimer Heparin Anti-Xa Level ABG pH ABG pO2 ABG HCO3 ABG O2 Saturation ABG Base Excess ABG Hemoglobin Oxyhemoglobin Sodium Potassium Chloride Carbon Dioxide BUN Creatinine Glucose POC Glucose 127 H Calcium Magnesium Ferritin 3764.0 H Direct Bilirubin AST ALT Alkaline Phosphatase Lactate Dehydrogenase 393 H Troponin T C-Reactive Protein 28.60 H NT-Pro-B Natriuret Pep Total Protein Albumin Crossmatch 01/26/20 01/26/20 01/26/20 02:31 04:45 05:24 WBC RBC Hgb Hct MCV RDW Plt Count Lymph % (Auto) [place] % (Auto) Lymph # Seg Neutrophils % Seg Neuts % (Manual) Lymphocytes % (Manual) Nucleated RBC % Seg Neutrophils # Man Lymphocytes # (Manual) Monocytes # (Manual) Eosinophils # (Manual) PT INR D-Dimer 3828.76 H Heparin Anti-Xa Level ABG pH ABG pO2 ABG HCO3 30.8 H ABG O2 Saturation ABG Base Excess 4.9 H ABG Hemoglobin 7.4 L Oxyhemoglobin 94.6 L Sodium Potassium Chloride Carbon Dioxide BUN Creatinine Glucose POC Glucose 121 H Calcium Magnesium Ferritin Direct Bilirubin AST ALT Alkaline Phosphatase Lactate Dehydrogenase Troponin T C-Reactive Protein NT-Pro-B Natriuret Pep Total Protein Albumin Crossmatch 01/26/20 01/26/20 01/26/20 10:40 12:36 18:10 WBC RBC Hgb Hct MCV RDW Plt Count Lymph % (Auto) [place] % (Auto) Lymph # Seg Neutrophils % Seg Neuts % (Manual) Lymphocytes % (Manual) Nucleated RBC % Seg Neutrophils # Man Lymphocytes # (Manual) Monocytes # (Manual) Eosinophils # (Manual) PT INR D-Dimer Heparin Anti-Xa Level ABG pH ABG pO2 ABG HCO3 ABG O2 Saturation ABG Base Excess ABG Hemoglobin Oxyhemoglobin Sodium Potassium Chloride Carbon Dioxide BUN Creatinine Glucose POC Glucose 119 H 126 H 159 H Calcium Magnesium Ferritin Direct Bilirubin AST ALT Alkaline Phosphatase Lactate Dehydrogenase Troponin T C-Reactive Protein NT-Pro-B Natriuret Pep Total Protein Albumin Crossmatch 01/27/20 01/27/20 01/27/20 03:45 06:15 12:19 WBC RBC Hgb Hct MCV RDW Plt Count Lymph % (Auto) [place] % (Auto) Lymph # Seg Neutrophils % Seg Neuts % (Manual) Lymphocytes % (Manual) Nucleated RBC % Seg Neutrophils # Man Lymphocytes # (Manual) Monocytes # (Manual) Eosinophils # (Manual) PT INR D-Dimer Heparin Anti-Xa Level ABG pH 7.307 L ABG pO2 91.1 H ABG HCO3 30.5 H ABG O2 Saturation ABG Base Excess 3.4 H ABG Hemoglobin 8.7 L Oxyhemoglobin 94.3 L Sodium Potassium Chloride Carbon Dioxide BUN Creatinine Glucose POC Glucose 147 H 164 H Calcium Magnesium Ferritin Direct Bilirubin AST ALT Alkaline Phosphatase Lactate Dehydrogenase Troponin T C-Reactive Protein NT-Pro-B Natriuret Pep Total Protein Albumin Crossmatch 01/27/20 01/28/20 01/28/20 17:42 00:29 04:34 WBC RBC Hgb Hct MCV RDW Plt Count Lymph % (Auto) [place] % (Auto) Lymph # Seg Neutrophils % Seg Neuts % (Manual) Lymphocytes % (Manual) Nucleated RBC % Seg Neutrophils # Man Lymphocytes # (Manual) Monocytes # (Manual) Eosinophils # (Manual) PT INR D-Dimer Heparin Anti-Xa Level ABG pH ABG pO2 ABG HCO3 ABG O2 Saturation ABG Base Excess ABG Hemoglobin Oxyhemoglobin Sodium Potassium Chloride Carbon Dioxide BUN Creatinine Glucose POC Glucose 149 H 178 H Calcium Magnesium Ferritin > 2000.0 H Direct Bilirubin AST ALT Alkaline Phosphatase Lactate Dehydrogenase Troponin T C-Reactive Protein NT-Pro-B Natriuret Pep Total Protein Albumin Crossmatch 01/28/20 01/28/20 01/28/20 04:34 04:34 05:20 WBC RBC Hgb Hct MCV RDW Plt Count Lymph % (Auto) [place] % (Auto) Lymph # Seg Neutrophils % Seg Neuts % (Manual) Lymphocytes % (Manual) Nucleated RBC % Seg Neutrophils # Man Lymphocytes # (Manual) Monocytes # (Manual) Eosinophils # (Manual) PT INR D-Dimer 2379 H Heparin Anti-Xa Level ABG pH 7.237 L ABG pO2 90.9 H ABG HCO3 29.1 H ABG O2 Saturation ABG Base Excess ABG Hemoglobin 7.5 L Oxyhemoglobin 94.0 L Sodium Potassium Chloride Carbon Dioxide BUN Creatinine Glucose POC Glucose Calcium Magnesium Ferritin Direct Bilirubin AST ALT Alkaline Phosphatase Lactate Dehydrogenase 434 H Troponin T C-Reactive Protein 9.70 H NT-Pro-B Natriuret Pep Total Protein Albumin Crossmatch 01/28/20 01/28/20 01/28/20 06:21 12:25 18:17 WBC RBC Hgb Hct MCV RDW Plt Count Lymph % (Auto) [place] % (Auto) Lymph # Seg Neutrophils % Seg Neuts % (Manual) Lymphocytes % (Manual) Nucleated RBC % Seg Neutrophils # Man Lymphocytes # (Manual) Monocytes # (Manual) Eosinophils # (Manual) PT INR D-Dimer Heparin Anti-Xa Level ABG pH ABG pO2 ABG HCO3 ABG O2 Saturation ABG Base Excess ABG Hemoglobin Oxyhemoglobin Sodium Potassium Chloride Carbon Dioxide BUN Creatinine Glucose POC Glucose 127 H 196 H 190 H Calcium Magnesium Ferritin Direct Bilirubin AST ALT Alkaline Phosphatase Lactate Dehydrogenase Troponin T C-Reactive Protein NT-Pro-B Natriuret Pep Total Protein Albumin Crossmatch 01/28/20 01/29/20 01/29/20 23:35 04:00 04:00 WBC 12.6 H RBC 3.01 L Hgb 9.2 L Hct 29.3 L MCV 98 H RDW 18.1 H Plt Count Lymph % (Auto) [place] % (Auto) Lymph # Seg Neutrophils % Seg Neuts % (Manual) Lymphocytes % (Manual) Nucleated RBC % Seg Neutrophils # Man Lymphocytes # (Manual) Monocytes # (Manual) Eosinophils # (Manual) PT INR D-Dimer Heparin Anti-Xa Level ABG pH ABG pO2 ABG HCO3 ABG O2 Saturation ABG Base Excess ABG Hemoglobin Oxyhemoglobin Sodium 132 L Potassium Chloride 90.1 L Carbon Dioxide BUN 50 H Creatinine 3.7 H Glucose 184 H POC Glucose 177 H Calcium Magnesium Ferritin Direct Bilirubin AST 93 H ALT Alkaline Phosphatase 678 H Lactate Dehydrogenase Troponin T C-Reactive Protein NT-Pro-B Natriuret Pep Total Protein Albumin 1.7 L Crossmatch 01/29/20 01/29/20 01/29/20 05:03 11:53 16:44 WBC RBC Hgb Hct MCV RDW Plt Count Lymph % (Auto) [place] % (Auto) Lymph # Seg Neutrophils % Seg Neuts % (Manual) Lymphocytes % (Manual) Nucleated RBC % Seg Neutrophils # Man Lymphocytes # (Manual) Monocytes # (Manual) Eosinophils # (Manual) PT INR D-Dimer Heparin Anti-Xa Level ABG pH ABG pO2 ABG HCO3 ABG O2 Saturation ABG Base Excess ABG Hemoglobin Oxyhemoglobin Sodium Potassium Chloride Carbon Dioxide BUN Creatinine Glucose POC Glucose 145 H 193 H 174 H Calcium Magnesium Ferritin Direct Bilirubin AST ALT Alkaline Phosphatase Lactate Dehydrogenase Troponin T C-Reactive Protein NT-Pro-B Natriuret Pep Total Protein Albumin Crossmatch 01/29/20 01/30/20 01/30/20 23:38 04:25 11:45 WBC RBC Hgb Hct MCV RDW Plt Count Lymph % (Auto) [place] % (Auto) Lymph # Seg Neutrophils % Seg Neuts % (Manual) Lymphocytes % (Manual) Nucleated RBC % Seg Neutrophils # Man Lymphocytes # (Manual) Monocytes # (Manual) Eosinophils # (Manual) PT INR D-Dimer Heparin Anti-Xa Level ABG pH 7.253 L ABG pO2 61.8 L ABG HCO3 29.7 H ABG O2 Saturation 90.1 L ABG Base Excess ABG Hemoglobin 8.2 L Oxyhemoglobin 87.5 L Sodium Potassium Chloride Carbon Dioxide BUN Creatinine Glucose POC Glucose 144 H 191 H Calcium Magnesium Ferritin Direct Bilirubin AST ALT Alkaline Phosphatase Lactate Dehydrogenase Troponin T C-Reactive Protein NT-Pro-B Natriuret Pep Total Protein Albumin Crossmatch 01/30/20 01/31/20 01/31/20 18:21 00:04 03:52 WBC RBC Hgb Hct MCV RDW Plt Count Lymph % (Auto) [place] % (Auto) Lymph # Seg Neutrophils % Seg Neuts % (Manual) Lymphocytes % (Manual) Nucleated RBC % Seg Neutrophils # Man Lymphocytes # (Manual) Monocytes # (Manual) Eosinophils # (Manual) PT INR D-Dimer Heparin Anti-Xa Level ABG pH ABG pO2 69.3 L ABG HCO3 29.4 H ABG O2 Saturation ABG Base Excess 3.7 H ABG Hemoglobin 10.8 L Oxyhemoglobin Sodium Potassium Chloride Carbon Dioxide BUN Creatinine Glucose POC Glucose 198 H 129 H Calcium Magnesium Ferritin Direct Bilirubin AST ALT Alkaline Phosphatase Lactate Dehydrogenase Troponin T C-Reactive Protein NT-Pro-B Natriuret Pep Total Protein Albumin Crossmatch 01/31/20 01/31/20 01/31/20 04:00 04:16 05:12 WBC 16.7 H RBC 2.73 L Hgb 8.3 L Hct 25.7 L MCV RDW 18.0 H Plt Count Lymph % (Auto) [place] % (Auto) Lymph # Seg Neutrophils % Seg Neuts % (Manual) 92.0 H Lymphocytes % (Manual) 2.0 L Nucleated RBC % Seg Neutrophils # Man 15.4 H Lymphocytes # (Manual) 0.3 L Monocytes # (Manual) 1.0 H Eosinophils # (Manual) PT INR D-Dimer Heparin Anti-Xa Level ABG pH ABG pO2 ABG HCO3 ABG O2 Saturation ABG Base Excess ABG Hemoglobin Oxyhemoglobin Sodium 130 L Potassium Chloride 90.1 L Carbon Dioxide BUN 61 H Creatinine 3.4 H Glucose 128 H POC Glucose 157 H Calcium Magnesium Ferritin Direct Bilirubin AST 103 H ALT 63 H Alkaline Phosphatase 534 H Lactate Dehydrogenase Troponin T C-Reactive Protein NT-Pro-B Natriuret Pep Total Protein Albumin 2.1 L Crossmatch 01/31/20 01/31/20 01/31/20 11:50 17:39 18:47 WBC RBC Hgb Hct MCV RDW Plt Count Lymph % (Auto) [place] % (Auto) Lymph # Seg Neutrophils % Seg Neuts % (Manual) Lymphocytes % (Manual) Nucleated RBC % Seg Neutrophils # Man Lymphocytes # (Manual) Monocytes # (Manual) Eosinophils # (Manual) PT INR D-Dimer Heparin Anti-Xa Level ABG pH ABG pO2 ABG HCO3 ABG O2 Saturation ABG Base Excess ABG Hemoglobin Oxyhemoglobin Sodium Potassium Chloride Carbon Dioxide BUN Creatinine Glucose POC Glucose 129 H 51 L 172 H Calcium Magnesium Ferritin Direct Bilirubin AST ALT Alkaline Phosphatase Lactate Dehydrogenase Troponin T C-Reactive Protein NT-Pro-B Natriuret Pep Total Protein Albumin Crossmatch 02/01/20 02/01/20 02/01/20 03:49 03:49 05:00 WBC 17.4 H RBC 2.68 L Hgb 8.0 L Hct 25.2 L MCV RDW 18.4 H Plt Count Lymph % (Auto) [place] % (Auto) Lymph # Seg Neutrophils % Seg Neuts % (Manual) Lymphocytes % (Manual) Nucleated RBC % Seg Neutrophils # Man Lymphocytes # (Manual) Monocytes # (Manual) Eosinophils # (Manual) PT INR D-Dimer Heparin Anti-Xa Level ABG pH 7.290 L ABG pO2 ABG HCO3 26.8 H ABG O2 Saturation ABG Base Excess ABG Hemoglobin 7.5 L Oxyhemoglobin 94.2 L Sodium 133 L Potassium Chloride 90.8 L Carbon Dioxide 21 L BUN 90 H Creatinine 4.6 H Glucose 145 H POC Glucose Calcium Magnesium Ferritin Direct Bilirubin AST ALT Alkaline Phosphatase Lactate Dehydrogenase Troponin T C-Reactive Protein NT-Pro-B Natriuret Pep Total Protein Albumin Crossmatch 02/01/20 02/01/20 02/01/20 05:34 06:09 12:42 WBC RBC Hgb Hct MCV RDW Plt Count Lymph % (Auto) [place] % (Auto) Lymph # Seg Neutrophils % Seg Neuts % (Manual) Lymphocytes % (Manual) Nucleated RBC % Seg Neutrophils # Man Lymphocytes # (Manual) Monocytes # (Manual) Eosinophils # (Manual) PT INR D-Dimer Heparin Anti-Xa Level ABG pH ABG pO2 ABG HCO3 ABG O2 Saturation ABG Base Excess ABG Hemoglobin Oxyhemoglobin Sodium Potassium Chloride Carbon Dioxide BUN Creatinine Glucose POC Glucose 166 H 143 H 218 H Calcium Magnesium Ferritin Direct Bilirubin AST ALT Alkaline Phosphatase Lactate Dehydrogenase Troponin T C-Reactive Protein NT-Pro-B Natriuret Pep Total Protein Albumin Crossmatch 02/01/20 02/01/20 02/02/20 17:38 18:24 05:00 WBC RBC Hgb Hct MCV RDW Plt Count Lymph % (Auto) [place] % (Auto) Lymph # Seg Neutrophils % Seg Neuts % (Manual) Lymphocytes % (Manual) Nucleated RBC % Seg Neutrophils # Man Lymphocytes # (Manual) Monocytes # (Manual) Eosinophils # (Manual) PT INR D-Dimer Heparin Anti-Xa Level ABG pH 7.317 L ABG pO2 ABG HCO3 28.2 H ABG O2 Saturation ABG Base Excess ABG Hemoglobin 10.1 L Oxyhemoglobin 94.0 L Sodium Potassium Chloride Carbon Dioxide BUN Creatinine Glucose POC Glucose 158 H 233 H Calcium Magnesium Ferritin Direct Bilirubin AST ALT Alkaline Phosphatase Lactate Dehydrogenase Troponin T C-Reactive Protein NT-Pro-B Natriuret Pep Total Protein Albumin Crossmatch 02/02/20 02/02/20 02/02/20 05:44 05:44 05:44 WBC 16.0 H RBC 2.85 L Hgb 8.3 L Hct 26.3 L MCV RDW 18.6 H Plt Count Lymph % (Auto) [place] % (Auto) Lymph # Seg Neutrophils % Seg Neuts % (Manual) 91.0 H Lymphocytes % (Manual) 2.0 L Nucleated RBC % Seg Neutrophils # Man 14.6 H Lymphocytes # (Manual) 0.3 L Monocytes # (Manual) Eosinophils # (Manual) PT INR D-Dimer Heparin Anti-Xa Level 0.77 H ABG pH ABG pO2 ABG HCO3 ABG O2 Saturation ABG Base Excess ABG Hemoglobin Oxyhemoglobin Sodium Potassium Chloride 95.5 L Carbon Dioxide BUN 57 H Creatinine 3.0 H Glucose 144 H POC Glucose Calcium 8.1 L Magnesium Ferritin Direct Bilirubin 0.3 H AST 179 H ALT 106 H Alkaline Phosphatase 557 H Lactate Dehydrogenase Troponin T C-Reactive Protein NT-Pro-B Natriuret Pep Total Protein 6.1 L Albumin 2.3 L Crossmatch 02/02/20 02/02/20 02/02/20 11:17 11:33 12:24 WBC RBC Hgb Hct MCV RDW Plt Count Lymph % (Auto) [place] % (Auto) Lymph # Seg Neutrophils % Seg Neuts % (Manual) Lymphocytes % (Manual) Nucleated RBC % Seg Neutrophils # Man Lymphocytes # (Manual) Monocytes # (Manual) Eosinophils # (Manual) PT INR D-Dimer Heparin Anti-Xa Level ABG pH ABG pO2 ABG HCO3 ABG O2 Saturation ABG Base Excess ABG Hemoglobin Oxyhemoglobin Sodium Potassium Chloride Carbon Dioxide BUN Creatinine Glucose POC Glucose < 40 L < 40 L 224 H Calcium Magnesium Ferritin Direct Bilirubin AST ALT Alkaline Phosphatase Lactate Dehydrogenase Troponin T C-Reactive Protein NT-Pro-B Natriuret Pep Total Protein Albumin Crossmatch 02/02/20 02/02/20 02/03/20 12:33 17:42 00:25 WBC RBC Hgb Hct MCV RDW Plt Count Lymph % (Auto) [place] % (Auto) Lymph # Seg Neutrophils % Seg Neuts % (Manual) Lymphocytes % (Manual) Nucleated RBC % Seg Neutrophils # Man Lymphocytes # (Manual) Monocytes # (Manual) Eosinophils # (Manual) PT INR D-Dimer Heparin Anti-Xa Level ABG pH ABG pO2 ABG HCO3 ABG O2 Saturation ABG Base Excess ABG Hemoglobin Oxyhemoglobin Sodium Potassium Chloride Carbon Dioxide BUN Creatinine Glucose 296 H POC Glucose 228 H < 40 L Calcium Magnesium Ferritin Direct Bilirubin AST ALT Alkaline Phosphatase Lactate Dehydrogenase Troponin T C-Reactive Protein NT-Pro-B Natriuret Pep Total Protein Albumin Crossmatch 02/03/20 02/03/20 02/03/20 00:27 03:59 03:59 WBC 22.9 H RBC 2.80 L Hgb 8.3 L Hct 27.4 L MCV 98 H RDW 19.2 H Plt Count Lymph % (Auto) [place] % (Auto) Lymph # Seg Neutrophils % Seg Neuts % (Manual) 92.0 H Lymphocytes % (Manual) 4.0 L Nucleated RBC % Seg Neutrophils # Man 21.1 H Lymphocytes # (Manual) 0.9 L Monocytes # (Manual) Eosinophils # (Manual) PT INR D-Dimer Heparin Anti-Xa Level ABG pH ABG pO2 ABG HCO3 ABG O2 Saturation ABG Base Excess ABG Hemoglobin Oxyhemoglobin Sodium 134 L Potassium 3.5 L Chloride Carbon Dioxide 21 L BUN 40 H Creatinine 2.6 H Glucose 180 H POC Glucose 198 H Calcium Magnesium Ferritin Direct Bilirubin AST ALT Alkaline Phosphatase Lactate Dehydrogenase Troponin T C-Reactive Protein NT-Pro-B Natriuret Pep Total Protein Albumin Crossmatch 02/03/20 02/03/20 02/03/20 04:48 05:00 12:21 WBC RBC Hgb Hct MCV RDW Plt Count Lymph % (Auto) [place] % (Auto) Lymph # Seg Neutrophils % Seg Neuts % (Manual) Lymphocytes % (Manual) Nucleated RBC % Seg Neutrophils # Man Lymphocytes # (Manual) Monocytes # (Manual) Eosinophils # (Manual) PT INR D-Dimer Heparin Anti-Xa Level ABG pH 7.315 L ABG pO2 97.3 H ABG HCO3 28.5 H ABG O2 Saturation ABG Base Excess ABG Hemoglobin 8.3 L Oxyhemoglobin 94.8 L Sodium Potassium Chloride Carbon Dioxide BUN Creatinine Glucose POC Glucose 182 H 201 H Calcium Magnesium Ferritin Direct Bilirubin AST ALT Alkaline Phosphatase Lactate Dehydrogenase Troponin T C-Reactive Protein NT-Pro-B Natriuret Pep Total Protein Albumin Crossmatch 02/03/20 02/03/20 02/04/20 17:43 23:36 04:50 WBC RBC Hgb Hct MCV RDW Plt Count Lymph % (Auto) [place] % (Auto) Lymph # Seg Neutrophils % Seg Neuts % (Manual) Lymphocytes % (Manual) Nucleated RBC % Seg Neutrophils # Man Lymphocytes # (Manual) Monocytes # (Manual) Eosinophils # (Manual) PT INR D-Dimer Heparin Anti-Xa Level ABG pH ABG pO2 ABG HCO3 ABG O2 Saturation ABG Base Excess ABG Hemoglobin Oxyhemoglobin Sodium 135 L Potassium Chloride 96.3 L Carbon Dioxide 21 L BUN 63 H Creatinine 4.1 H D Glucose 156 H POC Glucose 224 H 146 H Calcium 8.2 L Magnesium Ferritin Direct Bilirubin AST ALT Alkaline Phosphatase Lactate Dehydrogenase Troponin T C-Reactive Protein NT-Pro-B Natriuret Pep Total Protein Albumin Crossmatch 02/04/20 02/04/20 02/04/20 04:50 05:30 05:40 WBC 18.3 H RBC 2.31 L Hgb 6.9 L Hct 22.0 L MCV RDW 18.2 H Plt Count Lymph % (Auto) [place] % (Auto) Lymph # Seg Neutrophils % Seg Neuts % (Manual) 85.0 H Lymphocytes % (Manual) 4.0 L Nucleated RBC % 1.0 H Seg Neutrophils # Man 15.6 H Lymphocytes # (Manual) 0.7 L Monocytes # (Manual) Eosinophils # (Manual) PT INR D-Dimer Heparin Anti-Xa Level ABG pH 7.317 L ABG pO2 77.7 L ABG HCO3 27.4 H ABG O2 Saturation ABG Base Excess ABG Hemoglobin 8.0 L Oxyhemoglobin 94.5 L Sodium Potassium Chloride Carbon Dioxide BUN Creatinine Glucose POC Glucose 202 H Calcium Magnesium Ferritin Direct Bilirubin AST ALT Alkaline Phosphatase Lactate Dehydrogenase Troponin T C-Reactive Protein NT-Pro-B Natriuret Pep Total Protein Albumin Crossmatch 02/04/20 02/04/20 02/04/20 10:47 12:53 18:44 WBC RBC Hgb Hct MCV RDW Plt Count Lymph % (Auto) [place] % (Auto) Lymph # Seg Neutrophils % Seg Neuts % (Manual) Lymphocytes % (Manual) Nucleated RBC % Seg Neutrophils # Man Lymphocytes # (Manual) Monocytes # (Manual) Eosinophils # (Manual) PT INR D-Dimer Heparin Anti-Xa Level ABG pH ABG pO2 ABG HCO3 ABG O2 Saturation ABG Base Excess ABG Hemoglobin Oxyhemoglobin Sodium Potassium Chloride Carbon Dioxide BUN Creatinine Glucose POC Glucose 197 H 143 H Calcium Magnesium Ferritin Direct Bilirubin AST ALT Alkaline Phosphatase Lactate Dehydrogenase Troponin T C-Reactive Protein NT-Pro-B Natriuret Pep Total Protein Albumin Crossmatch See Detail 02/05/20 02/05/20 02/05/20 00:43 04:14 04:35 WBC RBC Hgb Hct MCV RDW Plt Count Lymph % (Auto) [place] % (Auto) Lymph # Seg Neutrophils % Seg Neuts % (Manual) Lymphocytes % (Manual) Nucleated RBC % Seg Neutrophils # Man Lymphocytes # (Manual) Monocytes # (Manual) Eosinophils # (Manual) PT INR D-Dimer Heparin Anti-Xa Level ABG pH 7.327 L ABG pO2 75.5 L ABG HCO3 30.1 H ABG O2 Saturation ABG Base Excess 3.5 H ABG Hemoglobin 8.4 L Oxyhemoglobin 93.8 L Sodium 134 L Potassium 3.3 L Chloride 97.3 L Carbon Dioxide BUN 38 H Creatinine 2.2 H Glucose 187 H POC Glucose 163 H Calcium 8.1 L Magnesium Ferritin Direct Bilirubin AST ALT Alkaline Phosphatase Lactate Dehydrogenase Troponin T C-Reactive Protein NT-Pro-B Natriuret Pep Total Protein Albumin Crossmatch 02/05/20 02/05/20 02/05/20 04:35 05:16 12:17 WBC 24.4 H RBC 2.75 L Hgb 7.9 L Hct 25.2 L MCV RDW 18.1 H Plt Count Lymph % (Auto) [place] % (Auto) Lymph # Seg Neutrophils % Seg Neuts % (Manual) 96.0 H Lymphocytes % (Manual) 1.0 L Nucleated RBC % Seg Neutrophils # Man 23.4 H Lymphocytes # (Manual) 0.2 L Monocytes # (Manual) Eosinophils # (Manual) 0.5 H PT INR D-Dimer Heparin Anti-Xa Level ABG pH ABG pO2 ABG HCO3 ABG O2 Saturation ABG Base Excess ABG Hemoglobin Oxyhemoglobin Sodium Potassium Chloride Carbon Dioxide BUN Creatinine Glucose POC Glucose 196 H 174 H Calcium Magnesium Ferritin Direct Bilirubin AST ALT Alkaline Phosphatase Lactate Dehydrogenase Troponin T C-Reactive Protein NT-Pro-B Natriuret Pep Total Protein Albumin Crossmatch 02/05/20 02/05/20 02/05/20 13:55 13:55 13:55 WBC RBC Hgb Hct MCV RDW Plt Count Lymph % (Auto) [place] % (Auto) Lymph # Seg Neutrophils % Seg Neuts % (Manual) Lymphocytes % (Manual) Nucleated RBC % Seg Neutrophils # Man Lymphocytes # (Manual) Monocytes # (Manual) Eosinophils # (Manual) PT INR D-Dimer 2896.73 H Heparin Anti-Xa Level ABG pH ABG pO2 ABG HCO3 ABG O2 Saturation ABG Base Excess ABG Hemoglobin Oxyhemoglobin Sodium Potassium Chloride Carbon Dioxide BUN Creatinine Glucose POC Glucose Calcium Magnesium Ferritin > 2000.0 H Direct Bilirubin AST ALT Alkaline Phosphatase Lactate Dehydrogenase 311 H Troponin T C-Reactive Protein 17.30 H NT-Pro-B Natriuret Pep Total Protein Albumin Crossmatch 02/05/20 02/05/20 02/06/20 17:20 21:53 04:50 WBC RBC Hgb Hct MCV RDW Plt Count Lymph % (Auto) [place] % (Auto) Lymph # Seg Neutrophils % Seg Neuts % (Manual) Lymphocytes % (Manual) Nucleated RBC % Seg Neutrophils # Man Lymphocytes # (Manual) Monocytes # (Manual) Eosinophils # (Manual) PT INR D-Dimer Heparin Anti-Xa Level ABG pH 7.349 L ABG pO2 64.5 L ABG HCO3 28.4 H ABG O2 Saturation 94.0 L ABG Base Excess ABG Hemoglobin 8.4 L Oxyhemoglobin 91.8 L Sodium Potassium Chloride Carbon Dioxide BUN Creatinine Glucose POC Glucose 191 H 200 H Calcium Magnesium Ferritin Direct Bilirubin AST ALT Alkaline Phosphatase Lactate Dehydrogenase Troponin T C-Reactive Protein NT-Pro-B Natriuret Pep Total Protein Albumin Crossmatch 02/06/20 02/06/20 02/06/20 05:55 05:55 05:58 WBC 22.4 H RBC 3.02 L Hgb 8.5 L Hct 27.6 L MCV RDW 18.8 H Plt Count Lymph % (Auto) [place] % (Auto) Lymph # Seg Neutrophils % Seg Neuts % (Manual) Lymphocytes % (Manual) Nucleated RBC % Seg Neutrophils # Man Lymphocytes # (Manual) Monocytes # (Manual) Eosinophils # (Manual) PT INR D-Dimer Heparin Anti-Xa Level ABG pH ABG pO2 ABG HCO3 ABG O2 Saturation ABG Base Excess ABG Hemoglobin Oxyhemoglobin Sodium 136 L Potassium Chloride 96.4 L Carbon Dioxide BUN 66 H Creatinine 3.6 H D Glucose 139 H POC Glucose 110 H Calcium Magnesium Ferritin Direct Bilirubin AST ALT Alkaline Phosphatase Lactate Dehydrogenase Troponin T C-Reactive Protein NT-Pro-B Natriuret Pep Total Protein Albumin Crossmatch 02/06/20 02/06/20 02/06/20 12:19 17:52 23:47 WBC RBC Hgb Hct MCV RDW Plt Count Lymph % (Auto) [place] % (Auto) Lymph # Seg Neutrophils % Seg Neuts % (Manual) Lymphocytes % (Manual) Nucleated RBC % Seg Neutrophils # Man Lymphocytes # (Manual) Monocytes # (Manual) Eosinophils # (Manual) PT INR D-Dimer Heparin Anti-Xa Level ABG pH ABG pO2 ABG HCO3 ABG O2 Saturation ABG Base Excess ABG Hemoglobin Oxyhemoglobin Sodium Potassium Chloride Carbon Dioxide BUN Creatinine Glucose POC Glucose 185 H 185 H 173 H Calcium Magnesium Ferritin Direct Bilirubin AST ALT Alkaline Phosphatase Lactate Dehydrogenase Troponin T C-Reactive Protein NT-Pro-B Natriuret Pep Total Protein Albumin Crossmatch 02/07/20 05:04 WBC RBC Hgb Hct MCV RDW Plt Count Lymph % (Auto) [place] % (Auto) Lymph # Seg Neutrophils % Seg Neuts % (Manual) Lymphocytes % (Manual) Nucleated RBC % Seg Neutrophils # Man Lymphocytes # (Manual) Monocytes # (Manual) Eosinophils # (Manual) PT INR D-Dimer Heparin Anti-Xa Level ABG pH ABG pO2 ABG HCO3 ABG O2 Saturation ABG Base Excess ABG Hemoglobin Oxyhemoglobin Sodium Potassium Chloride Carbon Dioxide BUN Creatinine Glucose POC Glucose 145 H Calcium Magnesium Ferritin Direct Bilirubin AST ALT Alkaline Phosphatase Lactate Dehydrogenase Troponin T C-Reactive Protein NT-Pro-B Natriuret Pep Total Protein Albumin Crossmatch Allied health notes reviewed: nursing
--- NOTE | 2020-02-07 12:06 | Progress Note ---
Assessment and Plan Cultures: 01/10/2020 blood culture: No growth 01/21/2020 sputum culture: No growth 01/25/2020 blood culture: No growth 02/04/2020 blood culture: no growth A/P: 64/F with #Sepsis with shock: likely due to severe COVID pneumonia. Completed empiric Cefepime x 5 days. Now back on antibiotics. #Severe COVID pneumonia: very elevated inflammatory markers. S/p ivermectin x 1 on 01/21/2020 (off label use). S/p hydroxychloroquine with zinc x 5 days. Markers remain elevated. #Acute hypoxic resp failure: intubated, on the vent. #ESRD on HD: nephrology following. #Thrombocytopenia: resolved #Elevated LFTs: etiology unclear. Bilirubin is normal. Alk phos and transaminases elevated. RUQ US showed no gall bladder, CBD appeared normal. Recs: on pressors, markers remain elevated. No clear source of infection identified. Suspect this is related to the inflammatory response to COVID-19. Consider steroids, OK for ID standpoint meanwhile, will continue empiric abx: Cefepime, Vancomycin + Fluconazole renally adjusted procalcitonin won't be very helpful in ESRD since it is renally cleared d/w Dr. Nelli Hannon MD, FACP [facility] ([facility] C: [phone] O: [phone] F: [phone] Subjective Date of service: 02/07/20 Principal diagnosis: Pneumonia Interval history: Low grade temperature. Back on pressors. Remains intubated, on the vent. On PSV trials Objective - Exam Narrative Exam: Physical Exam (reviewed in chart due to PPE conservation) Constitutional: intubated, on the vent Head, Ears, Nose: normocephalic, atraumatic Eyes: limited due to PPE conservation strategy Neck: intubated Oral: intubated Cardiovascular: limited due to PPE conservation strategy Respiratory: limited due to PPE conservation strategy GI: limited due to PPE conservation strategy Musculoskeletal: limited due to PPE conservation strategy Skin: limited due to PPE conservation strategy Hem/Lymphatic: limited due to PPE conservation strategy Psych: no agitation Neurological: intubated, on the vent, exam limited - Constitutional Vitals: Vital Signs Temp Pulse Resp BP Pulse Ox 99.1 F 109 H 22 120/49 99 04/23/20 11:58 02/07/20 11:57 02/07/20 11:57 02/07/20 10:01 02/07/20 11:57 Temperature -Last 24 Hours Temperature 99.1 F Temperature 99.8 F Temperature 99.9 F Temperature 99.9 F Temperature 100.1 F Temperature 99.6 F Temperature 97.6 F Temperature 98.6 F - Labs CBC & Chem 7: 02/06/20 05:55 02/06/20 05:55 Labs: Abnormal lab results 02/06/20 02/06/20 02/06/20 Range/Units 12:19 17:52 23:47 POC Glucose 185 H 185 H 173 H (70-105) 02/07/20 02/07/20 02/07/20 Range/Units 05:04 11:46 11:52 POC Glucose 145 H 240 H 251 H (70-105)
--- NOTE | 2020-02-07 12:49 | Progress Note ---
Assessment and Plan - Patient Problems (1) End stage renal disease on dialysis Current Visit: No Status: Chronic Plan to address problem: continue HD on MWF schedule. vasopressor support during HD prn to maintain MAP > 65mmhg (2) Pneumonia due to COVID-19 virus Current Visit: Yes Status: Acute Plan to address problem: continue treatment per infectious disease. 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 (8) Anemia in CKD (chronic kidney disease) Current Visit: Yes Status: Acute Qualifiers: Chronic kidney disease stage: on chronic dialysis Qualified Code(s): N18.6 - End stage renal disease; D63.1 - Anemia in chronic kidney disease; Z99.2 - Dependence on renal dialysis Plan to address problem: CLARITA therapy with HD. (9) Secondary hyperparathyroidism (of renal origin) Current Visit: Yes Status: Chronic Plan to address problem: Continue on current outpatient phos binder regimen. Subjective Date of service: 02/07/20 Principal diagnosis: Pneumonia Interval history: pt intubated, sedated Objective - Exam Narrative Exam: Exam reviewed in chart for PPE conservation - Vital Signs Vital signs: Vital Signs - 12hr 02/07/20 02/07/20 02/07/20 01:00 02:00 03:00 Temperature Pulse Rate 105 H 104 H 103 H Pulse Rate [ From Monitor] Respiratory 26 H 23 28 H Rate Blood Pressure 111/51 113/51 111/46 O2 Sat by Pulse 100 100 100 Oximetry 02/07/20 02/07/20 02/07/20 04:00 04:46 05:00 Temperature 99.9 F H Pulse Rate 104 H 103 H 103 H Pulse Rate [ From Monitor] Respiratory 23 26 H Rate Blood Pressure 111/52 106/50 103/45 O2 Sat by Pulse 100 100 100 Oximetry 02/07/20 02/07/20 02/07/20 06:00 07:01 08:00 Temperature 99.8 F H Pulse Rate 107 H 108 H 100 H Pulse Rate [ 100 H From Monitor] Respiratory 28 H 26 H 27 H Rate Blood Pressure 131/52 111/49 O2 Sat by Pulse 100 100 100 Oximetry 02/07/20 02/07/20 02/07/20 08:01 09:00 09:18 Temperature Pulse Rate 102 H 99 H 99 H Pulse Rate [ From Monitor] Respiratory 17 24 25 H Rate Blood Pressure 97/38 100/43 97/43 O2 Sat by Pulse 100 99 100 Oximetry 02/07/20 02/07/20 02/07/20 10:01 11:00 11:55 Temperature Pulse Rate 109 H 111 H 111 H Pulse Rate [ From Monitor] Respiratory 22 20 Rate Blood Pressure 120/49 110/45 O2 Sat by Pulse 98 98 Oximetry 02/07/20 02/07/20 02/07/20 11:57 11:58 12:00 Temperature 99.1 F Pulse Rate 108 H Pulse Rate [ 109 H From Monitor] Respiratory 22 27 H Rate Blood Pressure 98/42 O2 Sat by Pulse 99 99 Oximetry - Lab 02/06/20 05:55 02/06/20 05:55 Most recent lab results ABG pH 7.349 pH Units (7.350-7.450) L 02/06/20 04:50 ABG pCO2 52.7 mm Hg 02/06/20 04:50 ABG pO2 64.5 mm Hg (80.0-90.0) L 02/06/20 04:50 ABG HCO3 28.4 mmol/L (20.0-26.0) H 02/06/20 04:50 ABG O2 Saturation 94.0 % (95.0-99.0) L 02/06/20 04:50 Calcium 8.5 mg/dL (8.4-10.2) 02/06/20 05:55 Phosphorus 3.30 mg/dL (2.5-4.5) 01/12/20 16:01 Magnesium 2.00 mg/dL (1.7-2.3) 01/13/20 06:11 Medications & Allergies - Medications Allergies/Adverse Reactions: Allergies cheese Allergy (Mild, Verified 12/20/19 10:19) Itching iodine Allergy (Mild, Verified 12/20/19 10:16) Anaphylaxis clonidine Allergy (Verified 12/19/19 04:13) Anaphylaxis shellfish derived Adverse Reaction (Verified 12/19/19 04:13) Angioedema Home Medications: Home Medications Medication Instructions Recorded Confirmed Last Taken Type Atorvastatin [Lipitor] 40 mg PO DAILY 11/06/19 01/13/20 01/02/20 10:00 History Acetaminophen [Acetaminophen 8 650 mg PO Q8H PRN #30 tablet.er 11/21/19 01/13/20 01/03/20 22:00 Rx Hour] Cyclobenzaprine HCl [Flexeril 5 MG 5 mg PO QHS PRN #20 tab 11/21/19 01/13/20 01/01/20 22:00 Rx TAB] HYDROcodone/APAP 5-325 [[place] 1 each PO Q6HR PRN #18 tablet 12/13/19 01/13/20 01/01/20 22:00 Rx 5-325 mg TAB] amLODIPine 10 mg PO DAILY 90 Days #90 tab 12/18/19 01/13/20 01/01/20 10:00 Rx Ibuprofen 800 mg PO TID 12/19/19 01/13/20 01/02/20 22:00 History Magnesium Oxide [Mag-Ox] 400 mg PO QDAY 12/19/19 01/13/20 01/03/20 10:00 History diphenhydrAMINE [Benadryl CAP] 25 mg PO Q8HR PRN 12/19/19 01/13/20 01/03/20 21:00 History labetaloL [Labetalol 100mg TAB] 100 mg PO Q8H #90 tablet 12/21/19 01/13/20 01/02/20 10:00 Rx traMADoL [Ultram 50 MG tab] 50 mg PO Q6HR PRN #20 tablet 12/29/19 01/13/20 12/31/19 10:00 Rx DULoxetine [Cymbalta] 30 mg PO QDAY #30 capsule 01/04/20 01/13/20 Unknown Rx Valsartan [Diovan] 80 mg PO DAILY #30 tablet 01/04/20 01/13/20 Unknown Rx Active Medications: Generic Name Dose Route Start Last Admin Trade Name Freq PRN Reason Stop Dose Admin Acetaminophen 650 mg 01/09/20 16:33 02/05/20 05:58 Tylenol PO 650 mg Q4H PRN Administration Pain MILD(1-3)/Fever >100.5/MEANS Lipase/Protease/Amylase 1 each 01/23/20 14:[address] 10,500 Unit FEEDTUBE PRN PRN For Clogged Feeding Tube Atorvastatin Calcium 40 mg 01/09/20 22:00 02/06/20 21:53 Lipitor PO 40 mg QHS PHILLY Administration Dextrose 50 ml 01/23/20 07:26 02/02/20 11:33 D50w (25gm) Syringe IV 50 ml Q30MIN PRN Administration BLOOD GLUCOSE < 70 Dextrose 25 ml 01/24/20 08:58 01/24/20 13:41 D50w (25gm) Syringe IV 25 ml Q4H PRN Administration BG < 80 MG/DL Docusate Sodium 100 mg 01/25/20 22:00 02/07/20 09:10 Colace PO 100 mg BID PHILLY Administration Epoetin Helio 20,000 unit 02/04/20 12:00 02/04/20 13:00 Procrit SUB-Q 20,000 unit SILVERIO PHILLY Administration Famotidine 20 mg 01/09/20 22:00 02/07/20 09:10 Pepcid PO 20 mg DAILY PHILLY Administration Heparin Sodium (Porcine) 5,000 unit 02/07/20 10:00 02/07/20 09:09 Heparin SUB-Q 5,000 unit Q12HR PHILLY Administration Norepinephrine 4 mg in 250 mls @ 7.5 mls/hr 01/21/20 18:00 02/07/20 09:19 Levophed Drip 4 Mg/Ns 250 Ml IV 2 mcg/min TITR PHILLY 7.5 mls/hr Administration Protocol 2 MCG/MIN Propofol 1,000 mg in 100 mls @ 2.265 mls/hr 01/22/20 09:00 01/30/20 14:25 Diprivan 10 Mg/Ml IV 0 mcg/kg/min TITR PHILLY 0 mls/hr Titration Protocol 5 MCG/KG/MIN Sodium Chloride 100 mls @ 999 mls/hr 02/01/20 09:47 Nacl 0.9% IV SILVERIO PRN Hypotension Cefepime HCl 1 gm in 100 mls @ 200 mls/hr 02/04/20 14:00 02/07/20 09:10 Cefepime/Ns 1 Gm/100 Ml IV 200 mls/hr Q24HR PHILLY Administration Protocol Fluconazole 200 mg in 100 mls @ 100 mls/hr 02/04/20 13:00 02/07/20 09:10 Diflucan IV 100 mls/hr Q24HR PHILLY Administration Protocol Insulin Human Lispro 0 unit 02/07/20 12:00 Humalog SUB-Q Q6HR [facility] Protocol Lorazepam 2 mg 01/23/20 15:36 Ativan IV Q10MIN PRN Agitation Methylprednisolone Sodium Succinate 40 mg 02/07/20 14:00 Solu-Medrol IV Q8HR [facility] Ondansetron HCl 4 mg 01/09/20 16:33 01/20/20 10:19 Zofran IV 4 mg Q8H PRN Administration Nausea And Vomiting Simple Syrup 15 ml 01/23/20 14:28 Simple Syrup FEEDTUBE PRN PRN Hypoglycemia Simple Syrup 30 ml 01/23/20 14:28 Simple Syrup FEEDTUBE PRN PRN Hypoglycemia Sodium Bicarbonate 325 mg 01/23/20 14:28 Sodium Bicarbonate FEEDTUBE PRN PRN For Clogged Feeding Tube Sodium Chloride 10 ml 01/09/20 22:00 02/07/20 09:10 Sodium Chloride Flush Syringe 10 Ml IV 10 ml BID PHILLY Administration Sodium Chloride 10 ml 01/09/20 16:33 Sodium Chloride Flush Syringe 10 Ml IV PRN PRN LINE FLUSH Valsartan 80 mg 01/10/20 10:00 02/07/20 10:36 Diovan PO Not Given DAILY [facility]
[2020-02-07] MEDS: INSULIN LISPRO 100 UNIT/ML SUB-Q SCH ×2 (12:59→18:10)
[2020-02-07] MEDS: methylPREDNISolone Sod Succinate 40 MG/1 ML INJ IV SCH ×2 (13:18→22:03)
[2020-02-08] MEDS: INSULIN LISPRO 100 UNIT/ML SUB-Q SCH ×4 (00:45→18:22)
[2020-02-08] MEDS: methylPREDNISolone Sod Succinate 40 MG/1 ML INJ IV SCH ×3 (06:44→21:39)
--- NOTE | 2020-02-08 07:27 | Event Note ---
Date: 02/07/20 Called and gave update to Mr. Davis Hernandez.
--- NOTE | 2020-02-08 08:24 | Progress Note ---
Assessment and Plan Assessment and plan: COVID- 19 infection confirmed. Bilateral pneumonia. Continue antibiotics per ID ARDS. Etiology secondary to above. Acute hypoxemic respiratory failure. Intubated, on ventilator Pulm following Chest pain Stress test neg for ischemia GERD and costochondritis in differential diagnosis Volume overload s/p hemodialysis Nephrology consulted,following Acute on Chronic diastolic CHF exacerbation Secondary to volume overload End stage renal disease on dialysis Nephrology following T2DM (type 2 diabetes mellitus) Continue continue coverage Check hemoglobin A1c Hypertension Continue antihypertensives Hyponatremia Secondary to increased volume--dilutional DVT prophylaxis On heparin and GI prophylaxis 01/11 Covid 19 survey testing sent, nasal swab done 01/10 01/12 Patient has acute resp failure. may need Oxygen on dc. awaiting Covid result 01/13 Still has shortness of breath, awaiting Covid test. 01/14 Pt still dyspneic, await covid testing, Pulse ox 83% 01/16/2020. Patient remains dyspneic. Follow-up COVID testing. 01/17/2020. Patient still requiring large amounts of oxygen. Patient currently with 15 L satting at 95%. Patient with increased inflammatory markers. Follow- up chest x-ray today. 01/18/20--Patient still requiring large amounts of oxygen. Patient currently with 15 L %. Patient with increased inflammatory markers. 01/19/2020 very elevated inflammatory markers- ferritin> 2000, CRP >24, LDH> 600, d-dimer >1000 putting her at high risk for ARDS. Continue hydroxychloroquine 400 mg PO BID for 1 day then 200 mg PO BID for 4 days (total 5 days) with zinc 220 mg PO qday. Continue ceftriaxone. ContinueCOVID isolationprecautions per [facility] protocol. Continue serial Ferritin, LDH, D-Dimer, CRP every 48h 01/20/2020. Inflammatory markers remain elevated with ferritin 1826, LDH 496, CRP 19.3, and d-dimer 2072. Patient requiring high flow nasal cannula 40L, FiO2 80%. Pulmonary following. Continue antibiotics and Plaquenil. Continue COVID [facility]precautions per [facility] protocol. Patient has a high risk mortality and remains guarded. 01/21/2020. Continue antibiotics and Plaquenil. Continue COVID isolationprecautions per [facility] protocol. Maintain sats of 88% and greater. Still on HFNC, O2 weaned to 95% overnight. Sats documented at 98%. Pulmonary following and reports If patient progresses could give bipap a one hour trial to see if there is improvement, repeat ABG, if not would suggest elective intubation 01/22/2020 Patient still critically ill. Yesterday 01/20 had cardiopulmonary arrest so now intubated in ICU. Prognosis guarded. 01/23/2020 still critically ill. No more fever. Continue vent management. 01/24/20 Still critically ill, remain on vent. Continue current management. Will call . 01/25/20 Patient still critically ill. I called Davis Hernandez and gave update. He wants DNR status and says he will request withdrawal of care if patient does not get better after weekend. I discussed with Materials Engineer. 01/26/20 patient still intubated, on vent. She means a DNR order. Discussed with Nurse 01/26 patient still critically ill, vent dependent. 01/27 patient still intubated, on vent. On levophed to keep MAP>65mmhg 01/29/2020 patient still intubated on mechanical ventilation. AC mode ventilation with rate 20, tidal volume 400, FiO2 45% and PEEP 12. patient with no fever. Patient currently with sedation of propofol. Patient received hemodialysis yesterday with approximately 3 L removed. 01/30/2020. Patient still on mechanical ventilation. AC mode ventilation with rate 20, tidal volume 400, FiO2 45% and PEEP 8. Patient with elevated alkaline phosphatase. Check abdominal ultrasound. 01/31/2020. Patient still on mechanical ventilation. PSV mode ventilation with FiO2 50% and PEEP 8 and PS=12. Follow-up abdominal ultrasound for elevated alkaline phosphatase 02/01/2020. Patient currently with PSV FiO2 50%, pressure support 12, PEEP 8. Continue PSV trials per pulmonary. Continue Levophed to maintain MAP greater than 65. Continue propofol for sedation. 02/02/2020. Patient currently on AC mode ventilation rate 20, tidal volume 450, FiO2 50% and PEEP of 6. ABG with pH of 7.31, PCO2 56.4, and PO2 85. Patient confirmed COVID-19 positive on 01/17/2020. Patient with MOSF and guarded prognosis. Follow-up abdominal ultrasound (ordered 3 days ago) for elevated alkaline phosphatase and fevers. 02/03/2020. Patient continues on mechanical ventilation AC mode with rate 20, tidal volume 450 and PEEP of 8. Patient still with temperature 100.5. Patient off sedation but requiring Levophed at 2 mics. Patient with an episode of hypoglycemia yesterday requiring D5 half-normal. Continue to monitor for hypoglycemia. Patient with MOSF and guarded prognosis. Follow-up abdominal ultrasound (ordered 4 days ago) for elevated alkaline phosphatase and fevers. 02/04/2020. Patient continues on mechanical ventilation AC mode with rate 20, tidal volume 450, FiO2 50% and PEEP of 8. Patient continues to have fevers. Patient currently on Levophed. Continue pressors to maintain map greater than 65. Hemoglobin 6.9-1 unit PRBCs ordered. Patient may be able to wean off of Levophed with volume resuscitation of PRBCs. Follow-up abdominal ultrasound (ordered 5 days ago) for elevated alkaline phosphatase and fevers. Patient's prognosis remains guarded. 02/05/2020 patient with covid-19 infection with acute resp failure, intubated, still on vent. Now off Levophed since 02/0302/06/2020 patient with Covid-19 infection. fever yesterday, none today. Continuje current management. Prognosis guarded. 02/07/2020 patient with Covid-19 infection. Still intubated, on vent. Ongoig fever. DNR code status. prognosis remains guarded. 02/08/2020 patient with Covid-19 infection. Still intubated. Ongoing weaning attempts. I called and gave update to , Mr. Davis Medina yesterday. The high probability of a clinically significant, sudden or life threatening deterioration of the [immunologic and respiratory] system(s) required my full and direct attention, intervention and personal management. The aggregate critical care time was [34] minutes. This time is in addition to time spent performing reported procedures but includes the following: [x] Data Review and interpretation [x] Patient assessment and monitoring of vital signs [x] Documentation [x] Medication orders and management History Interval history: Patient initially presented with chest tightness, SOB Now diagnosed with Covid-19 infection,acute resp failure, intubated Hospitalist Physical - Physical exam Narrative exam: GEN: Intubated, HEENT: Normocephalic, atraumatic, Neck: supple, No JVD Lungs: Bilateral crackles, heart;S1 and S2 reg, no murmurs, rubs or gallop Abd:soft, non tender, non distended, normal bowel sounds Ext: No edema, no clubbing, no cyanosis, Neuro: intubated, unresponsive - Constitutional Vitals: Temp Pulse Resp BP Pulse Ox 98.8 F 100 H 28 H 131/56 100 02/08/20 04:00 02/08/20 08:04 02/08/20 08:01 02/08/20 08:04 02/08/20 08:04 General appearance: Present: no acute distress BREEZY score - Breezy Score Age > 65: (1) Yes Aspirin use within the Past 7 Days: (1) Yes 3 or more CAD Risk Factors: (1) Yes 2 or more Angina events in past 24 hrs: (1) Yes Known CAD with more than 50% Stenosis: (0) No Elevated Cardiac Markers: (0) No ST Deviation Greater than 0.5mm: (0) No BREEZY Score: 4 Results - Labs CBC & Chem 7: 02/06/20 05:55 02/06/20 05:55 Labs: Laboratory Last Values WBC 22.4 K/mm3 (4.5-11.0) H 02/06/20 05:55 RBC 3.02 M/mm3 (3.65-5.03) L 02/06/20 05:55 Hgb 8.5 gm/dl (10.1-14.3) L 02/06/20 05:55 Hct 27.6 % (30.3-42.9) L 02/06/20 05:55 MCV 91 fl (79-97) 02/06/20 05:55 MCH 28 pg (28-32) 02/06/20 05:55 MCHC 31 % (30-34) 02/06/20 05:55 RDW 18.8 % (13.2-15.2) H 02/06/20 05:55 Plt Count 398 K/mm3 (140-440) 02/06/20 05:55 Lymph % (Auto) Operational Review Sergeant 02/03/20 03:59 Oliver % (Auto) Operational Review Sergeant 02/03/20 03:59 Eos % (Auto) Operational Review Sergeant 02/03/20 03:59 Baso % (Auto) Operational Review Sergeant 02/03/20 03:59 Lymph # Operational Review Sergeant 02/03/20 03:59 Oliver # Operational Review Sergeant 02/03/20 03:59 Eos # Operational Review Sergeant 02/03/20 03:59 Baso # Operational Review Sergeant 02/03/20 03:59 Add Manual Diff Complete 02/05/20 04:35 Total Counted 100 02/05/20 04:35 Seg Neutrophils % Operational Review Sergeant 02/05/20 04:35 Seg Neuts % (Manual) 96.0 % (40.0-70.0) H 02/05/20 04:35 Band Neutrophils % 0 % 02/05/20 04:35 Lymphocytes % (Manual) 1.0 % (13.4-35.0) L 02/05/20 04:35 Reactive Lymphs % (Man) 0 % 02/05/20 04:35 Monocytes % (Manual) 1.0 % (0.0-7.3) 02/05/20 04:35 Eosinophils % (Manual) 2.0 % (0.0-4.3) 02/05/20 04:35 Basophils % (Manual) 0 % (0.0-1.8) 02/05/20 04:35 Metamyelocytes % 0 % 02/05/20 04:35 Myelocytes % 0 % 02/05/20 04:35 Promyelocytes % 0 % 02/05/20 04:35 Blast Cells % 0 % 02/05/20 04:35 Nucleated RBC % Not Reportable 02/05/20 04:35 Seg Neutrophils # Operational Review Sergeant 02/03/20 03:59 Seg Neutrophils # Man 23.4 K/mm3 (1.8-7.7) H 02/05/20 04:35 Band Neutrophils # 0.0 K/mm3 02/05/20 04:35 Lymphocytes # (Manual) 0.2 K/mm3 (1.2-5.4) L 02/05/20 04:35 Abs React Lymphs (Man) 0.0 K/mm3 02/05/20 04:35 Monocytes # (Manual) 0.2 K/mm3 (0.0-0.8) 02/05/20 04:35 Eosinophils # (Manual) 0.5 K/mm3 (0.0-0.4) H 02/05/20 04:35 Basophils # (Manual) 0.0 K/mm3 (0.0-0.1) 02/05/20 04:35 Metamyelocytes # 0.0 K/mm3 02/05/20 04:35 Myelocytes # 0.0 K/mm3 04/21/20 04:35 Promyelocytes # 0.0 K/mm3 02/05/20 04:35 Blast Cells # 0.0 K/mm3 02/05/20 04:35 WBC Morphology Not Reportable 02/05/20 04:35 Hypersegmented Neuts Not Reportable 02/05/20 04:35 Hyposegmented Neuts Not Reportable 02/05/20 04:35 Hypogranular Neuts Not Reportable 02/05/20 04:35 Smudge Cells Not Reportable 02/05/20 04:35 Toxic Granulation Not Reportable 02/05/20 04:35 Toxic Vacuolation Not Reportable 02/05/20 04:35 Dohle Bodies Not Reportable 02/05/20 04:35 Pelger-Huet Anomaly Not Reportable 02/05/20 04:35 Armando Rods Not Reportable 02/05/20 04:35 Platelet Estimate Consistent w auto 02/05/20 04:35 Clumped Platelets Not Reportable 02/05/20 04:35 Plt Clumps, EDTA Not Reportable 02/05/20 04:35 Large Platelets Not Reportable 02/05/20 04:35 Giant Platelets Not Reportable 02/05/20 04:35 Platelet Satelliting Not Reportable 02/05/20 04:35 Plt Morphology Comment Not Reportable 02/05/20 04:35 RBC Morphology Not Reportable 02/05/20 04:35 Dimorphic RBCs Not Reportable 02/05/20 04:35 Polychromasia Not Reportable 02/05/20 04:35 Hypochromasia Rare 02/05/20 04:35 Poikilocytosis Not Reportable 02/05/20 04:35 Anisocytosis Few 02/05/20 04:35 Microcytosis Not Reportable 02/05/20 04:35 Macrocytosis Rare 02/05/20 04:35 Spherocytes Not Reportable 02/05/20 04:35 Pappenheimer Bodies Not Reportable 02/05/20 04:35 Sickle Cells Not Reportable 02/05/20 04:35 Target Cells Not Reportable 02/05/20 04:35 Tear Drop Cells Not Reportable 02/05/20 04:35 Ovalocytes Not Reportable 02/05/20 04:35 Helmet Cells Not Reportable 02/05/20 04:35 [place] Bodies Not Reportable 02/05/20 04:35 [place] Rings Not Reportable 02/05/20 04:35 [place] Cells Not Reportable 02/05/20 04:35 Bite Cells Not Reportable 02/05/20 04:35 Crenated Cell Not Reportable 02/05/20 04:35 Elliptocytes Not Reportable 02/05/20 04:35 Acanthocytes (Spur) Not Reportable 02/05/20 04:35 Rouleaux Not Reportable 02/05/20 04:35 Hemoglobin C Crystals Not Reportable 02/05/20 04:35 Schistocytes Not Reportable 02/05/20 04:35 Malaria parasites Not Reportable 02/05/20 04:35 Ney Bodies Not Reportable 02/05/20 04:35 Hem Pathologist Commnt No 02/05/20 04:35 PT 15.6 Sec. (12.2-14.9) H 01/09/20 12:55 INR 1.22 (0.87-1.13) H 01/09/20 12:55 APTT 31.5 Sec. (24.2-36.6) 01/09/20 12:55 D-Dimer 2896.73 ng/mlDDU (0-234) H 02/05/20 13:55 Heparin Anti-Xa Level 0.77 U.I./ml (0.3-0.7) H 02/02/20 05:44 ABG pH 7.349 pH Units (7.350-7.450) L 02/06/20 04:50 ABG pCO2 52.7 mm Hg 02/06/20 04:50 ABG pO2 64.5 mm Hg (80.0-90.0) L 02/06/20 04:50 ABG HCO3 28.4 mmol/L (20.0-26.0) H 02/06/20 04:50 ABG O2 Saturation 94.0 % (95.0-99.0) L 02/06/20 04:50 ABG O2 Content 19.2 (0.0-44) 02/06/20 04:50 ABG Base Excess 1.7 mmol/L (-2.0-3.0) 02/06/20 04:50 ABG Hemoglobin 8.4 gm/dl (12.0-16.0) L 02/06/20 04:50 ABG Carboxyhemoglobin 1.9 % (0.0-5.0) 02/06/20 04:50 ABG Methemoglobin 0.4 % (0.0-1.5) 02/06/20 04:50 Oxyhemoglobin 91.8 % (95.0-99.0) L 02/06/20 04:50 FiO2 45 % 02/06/20 04:50 Sodium 136 mmol/L (137-145) L 02/06/20 05:55 Potassium 3.8 mmol/L (3.6-5.0) 02/06/20 05:55 Chloride 96.4 mmol/L (98-107) L 02/06/20 05:55 Carbon Dioxide 24 mmol/L (22-30) 02/06/20 05:55 Anion Gap 19 mmol/L 02/06/20 05:55 BUN 66 mg/dL (7-17) H 02/06/20 05:55 Creatinine 3.6 mg/dL (0.7-1.2) H D 02/06/20 05:55 Estimated GFR 15 ml/min 02/06/20 05:55 BUN/Creatinine Ratio 18 % 02/06/20 05:55 Glucose 139 mg/dL (65-100) H 02/06/20 05:55 POC Glucose 307 (70-105) H 02/08/20 05:43 Hemoglobin A1c 5.0 % (4-6) 01/10/20 06:54 Calcium 8.5 mg/dL (8.4-10.2) 02/06/20 05:55 Phosphorus 3.30 mg/dL (2.5-4.5) 01/12/20 16:01 Magnesium 2.00 mg/dL (1.7-2.3) 01/13/20 06:11 Ferritin > 2000.0 ng/mL (13.0-400.0) H 02/05/20 13:55 Total Bilirubin 0.50 mg/dL (0.1-1.2) 02/02/20 05:44 Direct Bilirubin 0.3 mg/dL (0-0.2) H 02/02/20 05:44 Indirect Bilirubin 0.2 mg/dL 02/02/20 05:44 AST 179 units/L (5-40) H 02/02/20 05:44 ALT 106 units/L (7-56) H 02/02/20 05:44 Alkaline Phosphatase 557 units/L (35-129) H 02/02/20 05:44 Lactate Dehydrogenase 311 units/L (91-180) H 02/05/20 13:55 Troponin T 0.315 ng/mL (0.00-0.029) H* 01/10/20 06:54 C-Reactive Protein 17.30 mg/dL (0.00-1.30) H 02/05/20 13:55 NT-Pro-B Natriuret Pep 79381 pg/mL (0-900) H 01/09/20 12:55 Total Protein 6.1 g/dL (6.3-8.2) L 02/02/20 05:44 Albumin 2.3 g/dL (3.9-5) L 02/02/20 05:44 Albumin/Globulin Ratio 0.6 % 02/02/20 05:44 Triglycerides 56 mg/dL (2-149) 01/30/20 04:04 Cholesterol 123 mg/dL (50-199) 01/09/20 12:55 LDL Cholesterol Direct 66 mg/dL (50-130) 01/09/20 12:55 HDL Cholesterol 47 mg/dL (40-59) 01/09/20 12:55 Cholesterol/HDL Ratio 2.61 % 01/09/20 12:55 Random Vancomycin 23.9 ug/mL (0-40.0) 02/08/20 04:56 Hepatitis A IgM Ab Non-reactive (NonReactive) 01/21/20 23:40 Hep Bs Antigen Non-reactive (Negative) 01/21/20 23:40 Hep B Core IgM Ab Non-reactive (NonReactive) 01/21/20 23:40 Hepatitis C Antibody Non-reactive (NonReactive) 01/21/20 23:40 Miscellaneous Test See scanned result 01/11/20 Unknown Miscellaneous Test See scanned result 01/11/20 Unknown Blood Type O POSITIVE 02/04/20 10:47 Antibody Screen Negative 02/04/20 10:47 Crossmatch See Detail 02/04/20 10:47 Microbiology: Microbiology 02/04/20 Unknown Peripheral/Venous Blood Culture - Preliminary NO GROWTH AFTER 72 HOURS 02/04/20 Unknown Peripheral/Venous Blood Culture - Preliminary NO GROWTH AFTER 72 HOURS Pleitez/IV: Voiding Method Indwelling Catheter IV Catheter Type [Left Chest] Infusaport IV Catheter Type [Right Peripheral IV External Jugular] IV Catheter Type [Left INT / Saline Lock External Jugular] IV Catheter Type [Left Upper AV Graft arm] Active Medications - Current Medications Current Medications: Generic Name Dose Route Start Last Admin Trade Name Freq PRN Reason Stop Dose Admin Acetaminophen 650 mg 01/09/20 16:33 02/05/20 05:58 Tylenol PO 650 mg Q4H PRN Administration Pain MILD(1-3)/Fever >100.5/MEANS Lipase/Protease/Amylase 1 each 01/23/20 14:28 02/07/20 13:[address] 10,500 Unit FEEDTUBE 1 each PRN PRN Administration For Clogged Feeding Tube Atorvastatin Calcium 40 mg 01/09/20 22:00 02/07/20 22:03 Lipitor PO 40 mg QHS PHILLY Administration Dextrose 50 ml 01/23/20 07:26 02/02/20 11:33 D50w (25gm) Syringe IV 50 ml Q30MIN PRN Administration BLOOD GLUCOSE < 70 Dextrose 25 ml 01/24/20 08:58 01/24/20 13:41 D50w (25gm) Syringe IV 25 ml Q4H PRN Administration BG < 80 MG/DL Docusate Sodium 100 mg 01/25/20 22:00 02/07/20 22:04 Colace PO Not Given BID PHILLY Epoetin Helio 20,000 unit 02/04/20 12:00 02/04/20 13:00 Procrit SUB-Q 20,000 unit SILVERIO PHILLY Administration Famotidine 20 mg 01/09/20 22:00 02/07/20 09:10 Pepcid PO 20 mg DAILY PHILLY Administration Heparin Sodium (Porcine) 5,000 unit 02/07/20 10:00 02/07/20 22:03 Heparin SUB-Q 5,000 unit Q12HR PHILLY Administration Norepinephrine 4 mg in 250 mls @ 7.5 mls/hr 01/21/20 18:00 02/08/20 00:44 Levophed Drip 4 Mg/Ns 250 Ml IV 0 mcg/min TITR PHILLY 0 mls/hr Titration Protocol 2 MCG/MIN Propofol 1,000 mg in 100 mls @ 2.265 mls/hr 01/22/20 09:00 01/30/20 14:25 Diprivan 10 Mg/Ml IV 0 mcg/kg/min TITR PHILLY 0 mls/hr Titration Protocol 5 MCG/KG/MIN Sodium Chloride 100 mls @ 999 mls/hr 02/01/20 09:47 Nacl 0.9% IV SILVERIO PRN Hypotension Cefepime HCl 1 gm in 100 mls @ 200 mls/hr 02/04/20 14:00 02/07/20 09:10 Cefepime/Ns 1 Gm/100 Ml IV 200 mls/hr Q24HR PHILLY Administration Protocol Fluconazole 200 mg in 100 mls @ 100 mls/hr 02/04/20 13:00 02/07/20 09:10 Diflucan IV 100 mls/hr Q24HR PHILLY Administration Protocol Insulin Human Lispro 0 unit 02/07/20 12:00 02/08/20 06:45 Humalog SUB-Q 4 unit Q6HR PHILLY Administration Protocol Lorazepam 2 mg 01/23/20 15:36 Ativan IV Q10MIN PRN Agitation Methylprednisolone Sodium Succinate 40 mg 02/07/20 14:00 02/08/20 06:44 Solu-Medrol IV 40 mg Q8HR PHILLY Administration Ondansetron HCl 4 mg 01/09/20 16:33 01/20/20 10:19 Zofran IV 4 mg Q8H PRN Administration Nausea And Vomiting Simple Syrup 15 ml 01/23/20 14:28 Simple Syrup FEEDTUBE PRN PRN Hypoglycemia Simple Syrup 30 ml 01/23/20 14:28 Simple Syrup FEEDTUBE PRN PRN Hypoglycemia Sodium Bicarbonate 325 mg 01/23/20 14:28 Sodium Bicarbonate FEEDTUBE PRN PRN For Clogged Feeding Tube Sodium Chloride 10 ml 01/09/20 22:00 02/07/20 22:04 Sodium Chloride Flush Syringe 10 Ml IV 10 ml BID PHILLY Administration Sodium Chloride 10 ml 01/09/20 16:33 Sodium Chloride Flush Syringe 10 Ml IV PRN PRN LINE FLUSH Valsartan 80 mg 01/10/20 10:00 02/07/20 10:36 Diovan PO Not Given DAILY PHILLY Nutrition/Malnutrition Assess - Dietary Evaluation Nutrition/Malnutrition Findings: Nutrition Notes Start: 01/17/20 13:49 Freq: Status: Active Protocol: Document 02/06/20 14:10 LM (Rec: 02/07/20 14:12 LM [id number]) Nutrition Notes Initial or Follow up Reassessment Current Diagnosis CKD (stage V CKD),Diabetes, Hypertension,Heart Failure, Respiratory Failure Other Pertinent Diagnosis on HD, Bilat pneu, COVID-19 (+ ) Current Diet Nepro 1.8 at 35ml/hr Labs/Tests Na 136 Pertinent Medications Reviewed Height 5 ft 6 in Weight 78 kg [place] Body Weight (kg) 59.09 BMI 27.7 Subjective/Other Information Per RN notes TF is tolerating TF at goal. Percent of energy/protein needs met: 94%/75% Burn Absent Trauma Absent Current % PO Negligible Minimum of two criteria Yes Fluid Accumulation Mild (non-severe) Reduced T[employer] Assembler Strength Measurably Reduced (severe) #1 Nutrition Diagnosis Malnutrition Diagnosis Progress(for reassessment Continues documentation) Is patient on ventilator? No Calculation Used for Recommendations [facility] Additional Notes Protein: 91-151g (1.2-2g/kg) Fluid: per MD Nutrition Intervention Change Diet Order: Continue TF Nutrition Support: Nepro 1.8 at 35ml/hr (goal rate) Flush 50ml q4hr for hyponatremia Flush 150ml q4h once hyponatremia resolves Kcal 1,512 Protein (gm) 68 Fluid (mL) 611 Goal #1 TF tolerance Goal #2 Meet at least 75% of energy and protein needs via TF Anticipated Discharge Needs: unable to determine at this time Follow-Up By: 02/12/20 Additional Comments F/U for TF tolerance, Na lab
[2020-02-08 09:57] LABS: ABG Base Excess 0.7 mmol/L (-2.0-3.0); ABG HCO3 30.3 mmol/L (20.0-26.0); ABG Methemoglobin 0.5 % (0.0-1.5); ABG Oxygen Saturation 92.6 % (95.0-99.0); ABG PCO2 85.6 mm Hg; ABG PO2 80.4 mm Hg (80.0-90.0)
[2020-02-08 10:03] LABS: ABG PH 7.167 pH Units (7.350-7.450)
[2020-02-08] MEDS ORDERED: SODIUM BICARB 8.4% 50 MEQ/50 ML SYRINGE IV ONE ×2 (11:00)
[2020-02-08] MEDS: FAMOTIDINE 20 MG TAB PO SCH (11:11)
[2020-02-08] MEDS: DOCUSATE SODIUM 100 MG/10 ML ORAL LIQD PO SCH ×2 (11:11→21:40)
[2020-02-08] MEDS: VALSARTAN 40 MG TAB PO SCH (11:11)
[2020-02-08] MEDS: FLUCONAZOLE 200 MG 200 MG/100 ML BAG IV SCH (11:13)
[2020-02-08] MEDS: HEPARIN 5,000 UNIT/1 ML VIAL SUB-Q SCH ×2 (11:16→21:49)
[2020-02-08] MEDS: CEFEPIME/NS 1 GM/100 ML 1 GM/100 ML BAG IV SCH (11:19)
--- NOTE | 2020-02-08 12:05 | Progress Note ---
Assessment and Plan - Patient Problems (1) End stage renal disease on dialysis Current Visit: No Status: Chronic Plan to address problem: continue HD on MWF schedule. vasopressor support during HD prn to maintain MAP > 65mmhg (2) Pneumonia due to COVID-19 virus Current Visit: Yes Status: Acute Plan to address problem: continue treatment per infectious disease. (3) Acute respiratory failure with hypoxia Current Visit: No Status: Acute Plan to address problem: ventilator management by pulmonary/web production assistant (4) Volume overload Current Visit: Yes Status: Acute Qualifiers: Plan to address problem: Fluid status improved with HD (5) Hyponatremia Current Visit: No Status: Acute Plan to address problem: improving with optimizing volume status with HD. (6) T2DM (type 2 diabetes mellitus) Current Visit: Yes Status: Acute Qualifiers: Diabetes mellitus watcher [employer] insulin use: unspecified watcher [employer] insulin use status Plan to address problem: management as per primary attending (7) Hypertension Current Visit: Yes Status: Chronic Qualifiers: Hypertension type: essential hypertension Qualified Code(s): I10 - Essential (primary) hypertension Plan to address problem: Monitor on current regimen. (8) Anemia in CKD (chronic kidney disease) Current Visit: Yes Status: Acute Qualifiers: Chronic kidney disease stage: on chronic dialysis Qualified Code(s): N18.6 - End stage renal disease; D63.1 - Anemia in chronic kidney disease; Z99.2 - Dependence on renal dialysis Plan to address problem: CLARITA therapy with HD. (9) Secondary hyperparathyroidism (of renal origin) Current Visit: Yes Status: Chronic Plan to address problem: Continue on current outpatient phos binder regimen. Subjective Date of service: 02/08/20 Principal diagnosis: Pneumonia Interval history: pt intubated, sedated Objective - Exam Narrative Exam: Exam reviewed in chart for PPE conservation - Vital Signs Vital signs: Vital Signs - 12hr 02/08/20 02/08/20 02/08/20 00:15 00:48 01:01 Temperature 98.6 F Pulse Rate 108 H 104 H Pulse Rate [ From Monitor] Respiratory 25 H Rate Blood Pressure 116/54 100/49 O2 Sat by Pulse 97 100 Oximetry 02/08/20 02/08/20 02/08/20 02:00 03:00 04:00 Temperature 98.8 F Pulse Rate 98 H 97 H 97 H Pulse Rate [ 108 H From Monitor] Respiratory 24 27 H 24 Rate Blood Pressure 94/42 99/49 O2 Sat by Pulse 100 100 98 Oximetry 02/08/20 02/08/20 02/08/20 04:01 04:23 05:00 Temperature Pulse Rate 94 H 96 H 99 H Pulse Rate [ From Monitor] Respiratory 24 19 Rate Blood Pressure 89/48 113/52 118/58 O2 Sat by Pulse 100 96 98 Oximetry 02/08/20 02/08/20 02/08/20 06:00 07:01 08:00 Temperature Pulse Rate 92 H 99 H Pulse Rate [ 103 H From Monitor] Respiratory 30 H 17 24 Rate Blood Pressure 104/47 117/56 119/67 O2 Sat by Pulse 100 97 98 Oximetry 02/08/20 02/08/20 02/08/20 08:01 08:04 09:01 Temperature Pulse Rate 99 H 100 H 105 H Pulse Rate [ From Monitor] Respiratory 28 H 21 19 Rate Blood Pressure 131/56 131/56 121/46 O2 Sat by Pulse 100 100 100 Oximetry 02/08/20 02/08/20 02/08/20 10:00 10:07 11:01 Temperature Pulse Rate 97 H 97 H 111 H Pulse Rate [ From Monitor] Respiratory 19 20 Rate Blood Pressure 85/29 85/29 153/67 O2 Sat by Pulse 100 99 100 Oximetry 02/08/20 02/08/20 11:49 12:00 Temperature Pulse Rate 98 H 98 H Pulse Rate [ From Monitor] Respiratory 23 Rate Blood Pressure 132/65 130/62 O2 Sat by Pulse 100 100 Oximetry - Lab 02/06/20 05:55 02/06/20 05:55 Most recent lab results ABG pH 7.167 pH Units (7.350-7.450) L* 02/08/20 09:40 ABG pCO2 85.6 mm Hg 02/08/20 09:40 ABG pO2 80.4 mm Hg (80.0-90.0) 02/08/20 09:40 ABG HCO3 30.3 mmol/L (20.0-26.0) H 02/08/20 09:40 ABG O2 Saturation 92.6 % (95.0-99.0) L 02/08/20 09:40 Calcium 8.5 mg/dL (8.4-10.2) 02/06/20 05:55 Phosphorus 3.30 mg/dL (2.5-4.5) 01/12/20 16:01 Magnesium 2.00 mg/dL (1.7-2.3) 01/13/20 06:11 Medications & Allergies - Medications Allergies/Adverse Reactions: Allergies cheese Allergy (Mild, Verified 12/20/19 10:19) Itching iodine Allergy (Mild, Verified 12/20/19 10:16) Anaphylaxis clonidine Allergy (Verified 12/19/19 04:13) Anaphylaxis shellfish derived Adverse Reaction (Verified 12/19/19 04:13) Angioedema Home Medications: Home Medications Medication Instructions Recorded Confirmed Last Taken Type Atorvastatin [Lipitor] 40 mg PO DAILY 11/06/19 01/13/20 01/02/20 10:00 History Acetaminophen [Acetaminophen 8 650 mg PO Q8H PRN #30 tablet.er 11/21/19 01/13/20 01/03/20 22:00 Rx Hour] Cyclobenzaprine HCl [Flexeril 5 MG 5 mg PO QHS PRN #20 tab 11/21/19 01/13/20 01/01/20 22:00 Rx TAB] HYDROcodone/APAP 5-325 [Jackson 1 each PO Q6HR PRN #18 tablet 12/13/19 01/13/20 01/01/20 22:00 Rx 5-325 mg TAB] amLODIPine 10 mg PO DAILY 90 Days #90 tab 12/18/19 01/13/20 01/01/20 10:00 Rx Ibuprofen 800 mg PO TID 12/19/19 01/13/20 01/02/20 22:00 History Magnesium Oxide [Mag-Ox] 400 mg PO QDAY 12/19/19 01/13/20 01/03/20 10:00 History diphenhydrAMINE [Benadryl CAP] 25 mg PO Q8HR PRN 12/19/19 01/13/20 01/03/20 21:00 History labetaloL [Labetalol 100mg TAB] 100 mg PO Q8H #90 tablet 12/21/19 01/13/20 01/02/20 10:00 Rx traMADoL [Ultram 50 MG tab] 50 mg PO Q6HR PRN #20 tablet 12/29/19 01/13/20 12/31/19 10:00 Rx DULoxetine [Cymbalta] 30 mg PO QDAY #30 capsule 01/04/20 01/13/20 Unknown Rx Valsartan [Diovan] 80 mg PO DAILY #30 tablet 01/04/20 01/13/20 Unknown Rx Active Medications: Generic Name Dose Route Start Last Admin Trade Name Freq PRN Reason Stop Dose Admin Acetaminophen 650 mg 01/09/20 16:33 02/05/20 05:58 Tylenol PO 650 mg Q4H PRN Administration Pain MILD(1-3)/Fever >100.5/MEANS Lipase/Protease/Amylase 1 each 01/23/20 14:28 02/07/20 13:[address] 10,500 Unit FEEDTUBE 1 each PRN PRN Administration For Clogged Feeding Tube Atorvastatin Calcium 40 mg 01/09/20 22:00 02/07/20 22:03 Lipitor PO 40 mg QHS PHILLY Administration Dextrose 50 ml 01/23/20 07:26 02/02/20 11:33 D50w (25gm) Syringe IV 50 ml Q30MIN PRN Administration BLOOD GLUCOSE < 70 Dextrose 25 ml 01/24/20 08:58 01/24/20 13:41 D50w (25gm) Syringe IV 25 ml Q4H PRN Administration BG < 80 MG/DL Docusate Sodium 100 mg 01/25/20 22:00 02/08/20 11:11 Colace PO 100 mg BID PHILLY Administration Epoetin Helio 20,000 unit 02/04/20 12:00 02/04/20 13:00 Procrit SUB-Q 20,000 unit SILVERIO PHILLY Administration Famotidine 20 mg 01/09/20 22:00 02/08/20 11:11 Pepcid PO 20 mg DAILY PHILLY Administration Heparin Sodium (Porcine) 5,000 unit 02/07/20 10:00 02/08/20 11:16 Heparin SUB-Q 5,000 unit Q12HR PHILLY Administration Norepinephrine 4 mg in 250 mls @ 7.5 mls/hr 01/21/20 18:00 02/08/20 00:44 Levophed Drip 4 Mg/Ns 250 Ml IV 0 mcg/min TITR PHILLY 0 mls/hr Titration Protocol 2 MCG/MIN Propofol 1,000 mg in 100 mls @ 2.265 mls/hr 01/22/20 09:00 01/30/20 14:25 Diprivan 10 Mg/Ml IV 0 mcg/kg/min TITR PHILLY 0 mls/hr Titration Protocol 5 MCG/KG/MIN Sodium Chloride 100 mls @ 999 mls/hr 02/01/20 09:47 Nacl 0.9% IV SILVERIO PRN Hypotension Cefepime HCl 1 gm in 100 mls @ 200 mls/hr 02/04/20 14:00 02/08/20 11:19 Cefepime/Ns 1 Gm/100 Ml IV 200 mls/hr Q24HR PHILLY Administration Protocol Fluconazole 200 mg in 100 mls @ 100 mls/hr 02/04/20 13:00 02/08/20 11:13 Diflucan IV 100 mls/hr Q24HR PHILLY Administration Protocol Insulin Human Lispro 0 unit 02/07/20 12:00 02/08/20 06:45 Humalog SUB-Q 4 unit Q6HR PHILLY Administration Protocol Lorazepam 2 mg 01/23/20 15:36 Ativan IV Q10MIN PRN Agitation Methylprednisolone Sodium Succinate 40 mg 02/07/20 14:00 02/08/20 06:44 Solu-Medrol IV 40 mg Q8HR PHILLY Administration Ondansetron HCl 4 mg 01/09/20 16:33 01/20/20 10:19 Zofran IV 4 mg Q8H PRN Administration Nausea And Vomiting Simple Syrup 15 ml 01/23/20 14:28 Simple Syrup FEEDTUBE PRN PRN Hypoglycemia Simple Syrup 30 ml 01/23/20 14:28 Simple Syrup FEEDTUBE PRN PRN Hypoglycemia Sodium Bicarbonate 325 mg 01/23/20 14:28 Sodium Bicarbonate FEEDTUBE PRN PRN For Clogged Feeding Tube Sodium Chloride 10 ml 01/09/20 22:00 02/08/20 11:24 Sodium Chloride Flush Syringe 10 Ml IV 10 ml BID PHILLY Administration Sodium Chloride 10 ml 01/09/20 16:33 Sodium Chloride Flush Syringe 10 Ml IV PRN PRN LINE FLUSH Valsartan 80 mg 01/10/20 10:00 02/08/20 11:11 Diovan PO 80 mg DAILY PHILLY Administration
--- NOTE | 2020-02-08 12:30 | Progress Note ---
Assessment and Plan 64 y/o female with COVID positive, viral pneumonia with some pulmonary vascular congestion superimposed. 1. Aborted PSV trial and gave 2 amps of Na Bicarb. Asked that repeat ABG happen at 1600 2. HD per renal, will do today. 3. Changed back to prophylactic dosing for VTE as not confirmed the presence of VTE 4. Overall prognosis is guarded to poor, especially with prior history of ESRD on HD. Continue supportive care. IMS spoke with who has made patient a DNR. I have signed. Hopeful she can pull through but do agree with DNR status given evidence of increased mortality throughout [place] from this novel [place] virus. Spoke with IMS again as they will speak with today. Hopeful he will continue as she has made improvements. Please continue daily PSV's, hoping her mental state will improve and she will clear the sedation and be extubated. Otherwise consider trach and peg and follow up from there. Will speak with CM about this. MOST facilites are requiring one to two negative COVID tests and no fever. First repeat test out today. CCT 31 minutes. Subjective Date of service: 02/08/20 Principal diagnosis: Pneumonia Interval history: No acute events. ABG this am showed pH of 7.1 on PSV. Asked them to place back on rate. No labs today. Scheduled for HD. Objective Vital Signs - 12hr 02/08/20 02/08/20 02/08/20 00:48 01:01 02:00 Temperature 98.6 F Pulse Rate 104 H 98 H Pulse Rate [ From Monitor] Respiratory 25 H 24 Rate Blood Pressure 100/49 94/42 O2 Sat by Pulse 100 100 Oximetry 02/08/20 02/08/20 02/08/20 03:00 04:00 04:01 Temperature 98.8 F Pulse Rate 97 H 97 H 94 H Pulse Rate [ 108 H From Monitor] Respiratory 27 H 24 24 Rate Blood Pressure 99/49 89/48 O2 Sat by Pulse 100 98 100 Oximetry 02/08/20 02/08/20 02/08/20 04:23 05:00 06:00 Temperature Pulse Rate 96 H 99 H 92 H Pulse Rate [ From Monitor] Respiratory 19 30 H Rate Blood Pressure 113/52 118/58 104/47 O2 Sat by Pulse 96 98 100 Oximetry 02/08/20 02/08/20 02/08/20 07:01 08:00 08:01 Temperature Pulse Rate 99 H 99 H Pulse Rate [ 103 H From Monitor] Respiratory 17 24 28 H Rate Blood Pressure 117/56 119/67 131/56 O2 Sat by Pulse 97 98 100 Oximetry 02/08/20 02/08/20 02/08/20 08:04 09:01 10:00 Temperature Pulse Rate 100 H 105 H 97 H Pulse Rate [ From Monitor] Respiratory 21 19 19 Rate Blood Pressure 131/56 121/46 85/29 O2 Sat by Pulse 100 100 100 Oximetry 02/08/20 02/08/20 02/08/20 10:07 11:01 11:49 Temperature Pulse Rate 97 H 111 H 98 H Pulse Rate [ From Monitor] Respiratory 20 Rate Blood Pressure 85/29 153/67 132/65 O2 Sat by Pulse 99 100 100 Oximetry 02/08/20 12:00 Temperature Pulse Rate 98 H Pulse Rate [ From Monitor] Respiratory 23 Rate Blood Pressure 130/62 O2 Sat by Pulse 100 Oximetry Constitutional: other (orally intubated, not sedated currently on vent. on AC 450 50) Eyes: non-icteric ENT: oropharynx moist Neck: supple Effort: normal Ascultation: Bilateral: rales Cardiovascular: regular rate and rhythm (no mrg) Gastrointestinal: normoactive bowel sounds, soft, non-tender, non-distended Integumentary: normal Extremities: no cyanosis, no edema, pink and warm Neurologic: unable to assess Psychiatric: mood appropriate, affect normal CBC and BMP: 02/06/20 05:55 02/06/20 05:55 ABG, PT/INR, D-dimer: ABG ABG pH 7.167 pH Units (7.350-7.450) L* 02/08/20 09:40 ABG pCO2 85.6 mm Hg 02/08/20 09:40 ABG pO2 80.4 mm Hg (80.0-90.0) 02/08/20 09:40 ABG O2 Saturation 92.6 % (95.0-99.0) L 02/08/20 09:40 PT/INR, D-dimer PT 15.6 Sec. (12.2-14.9) H 01/09/20 12:55 INR 1.22 (0.87-1.13) H 01/09/20 12:55 D-Dimer 2896.73 ng/mlDDU (0-234) H 02/05/20 13:55 Abnormal lab findings: Abnormal Labs 01/09/20 01/09/20 01/09/20 12:55 12:55 12:55 WBC 4.4 L RBC 3.44 L Hgb Hct MCV RDW 17.0 H Plt Count Lymph % (Auto) 6.8 L [place] % (Auto) 13.6 H Lymph # 0.3 L Seg Neutrophils % 79.0 H Seg Neuts % (Manual) Lymphocytes % (Manual) Nucleated RBC % Seg Neutrophils # Man Lymphocytes # (Manual) Monocytes # (Manual) Eosinophils # (Manual) PT 15.6 H INR 1.22 H D-Dimer Heparin Anti-Xa Level ABG pH ABG pO2 ABG HCO3 ABG O2 Saturation ABG Base Excess ABG Hemoglobin Oxyhemoglobin Sodium 130 L Potassium Chloride 88.9 L Carbon Dioxide 20 L BUN 41 H Creatinine 7.6 H Glucose 115 H POC Glucose Calcium Magnesium Ferritin Direct Bilirubin AST ALT Alkaline Phosphatase 153 H Lactate Dehydrogenase Troponin T 0.382 H* C-Reactive Protein NT-Pro-B Natriuret Pep 55607 H Total Protein Albumin 3.2 L Crossmatch 01/09/20 01/10/20 01/10/20 20:14 00:16 06:54 WBC 3.3 L RBC 3.00 L Hgb 9.2 L Hct 27.8 L MCV RDW 17.2 H Plt Count Lymph % (Auto) 8.9 L [place] % (Auto) 11.5 H Lymph # 0.3 L Seg Neutrophils % 79.1 H Seg Neuts % (Manual) Lymphocytes % (Manual) Nucleated RBC % Seg Neutrophils # Man Lymphocytes # (Manual) Monocytes # (Manual) Eosinophils # (Manual) PT INR D-Dimer Heparin Anti-Xa Level ABG pH ABG pO2 ABG HCO3 ABG O2 Saturation ABG Base Excess ABG Hemoglobin Oxyhemoglobin Sodium Potassium Chloride Carbon Dioxide BUN Creatinine Glucose POC Glucose Calcium Magnesium Ferritin Direct Bilirubin AST ALT Alkaline Phosphatase Lactate Dehydrogenase Troponin T 0.349 H* 0.328 H* C-Reactive Protein NT-Pro-B Natriuret Pep Total Protein Albumin Crossmatch 01/10/20 01/10/20 01/11/20 06:54 06:54 16:45 WBC RBC Hgb Hct MCV RDW Plt Count Lymph % (Auto) [place] % (Auto) Lymph # Seg Neutrophils % Seg Neuts % (Manual) Lymphocytes % (Manual) Nucleated RBC % Seg Neutrophils # Man Lymphocytes # (Manual) Monocytes # (Manual) Eosinophils # (Manual) PT INR D-Dimer Heparin Anti-Xa Level ABG pH ABG pO2 ABG HCO3 ABG O2 Saturation ABG Base Excess ABG Hemoglobin Oxyhemoglobin Sodium 133 L Potassium Chloride 90.6 L Carbon Dioxide BUN 50 H Creatinine 8.4 H Glucose 101 H POC Glucose 106 H Calcium 8.1 L Magnesium Ferritin Direct Bilirubin AST ALT Alkaline Phosphatase 148 H Lactate Dehydrogenase Troponin T 0.315 H* C-Reactive Protein NT-Pro-B Natriuret Pep Total Protein 5.4 L Albumin 2.7 L Crossmatch 01/12/20 01/13/20 01/13/20 16:01 06:11 06:11 WBC 3.1 L RBC 3.25 L Hgb 9.8 L Hct MCV RDW 17.2 H Plt Count 136 L Lymph % (Auto) [place] % (Auto) Lymph # Seg Neutrophils % Seg Neuts % (Manual) Lymphocytes % (Manual) Nucleated RBC % Seg Neutrophils # Man Lymphocytes # (Manual) Monocytes # (Manual) Eosinophils # (Manual) PT INR D-Dimer Heparin Anti-Xa Level ABG pH ABG pO2 ABG HCO3 ABG O2 Saturation ABG Base Excess ABG Hemoglobin Oxyhemoglobin Sodium 135 L Potassium Chloride 93.4 L Carbon Dioxide BUN 19 H Creatinine 4.5 H Glucose 120 H POC Glucose Calcium 7.8 L Magnesium 1.40 L Ferritin Direct Bilirubin AST ALT Alkaline Phosphatase Lactate Dehydrogenase Troponin T C-Reactive Protein NT-Pro-B Natriuret Pep Total Protein Albumin Crossmatch 01/16/20 01/16/20 01/16/20 08:35 11:49 14:11 WBC RBC Hgb Hct MCV RDW Plt Count Lymph % (Auto) [place] % (Auto) Lymph # Seg Neutrophils % Seg Neuts % (Manual) Lymphocytes % (Manual) Nucleated RBC % Seg Neutrophils # Man Lymphocytes # (Manual) Monocytes # (Manual) Eosinophils # (Manual) PT INR D-Dimer Heparin Anti-Xa Level ABG pH ABG pO2 48.4 L ABG HCO3 30.5 H ABG O2 Saturation 81.9 L ABG Base Excess 4.6 H ABG Hemoglobin 10.5 L Oxyhemoglobin 80.1 L Sodium Potassium Chloride Carbon Dioxide BUN Creatinine Glucose POC Glucose 126 H 119 H Calcium Magnesium Ferritin Direct Bilirubin AST ALT Alkaline Phosphatase Lactate Dehydrogenase Troponin T C-Reactive Protein NT-Pro-B Natriuret Pep Total Protein Albumin Crossmatch 01/16/20 01/16/20 01/16/20 15:38 15:38 15:38 WBC RBC Hgb Hct MCV RDW Plt Count Lymph % (Auto) [place] % (Auto) Lymph # Seg Neutrophils % Seg Neuts % (Manual) Lymphocytes % (Manual) Nucleated RBC % Seg Neutrophils # Man Lymphocytes # (Manual) Monocytes # (Manual) Eosinophils # (Manual) PT INR D-Dimer 1104.64 H Heparin Anti-Xa Level ABG pH ABG pO2 ABG HCO3 ABG O2 Saturation ABG Base Excess ABG Hemoglobin Oxyhemoglobin Sodium Potassium Chloride Carbon Dioxide BUN Creatinine Glucose POC Glucose Calcium Magnesium Ferritin > 2000.0 H Direct Bilirubin AST ALT Alkaline Phosphatase Lactate Dehydrogenase 690 H Troponin T C-Reactive Protein 24.10 H NT-Pro-B Natriuret Pep Total Protein Albumin Crossmatch 01/16/20 01/18/20 01/18/20 18:11 06:25 06:25 WBC RBC 3.15 L Hgb 9.4 L Hct 29.4 L MCV RDW 17.5 H Plt Count 135 L Lymph % (Auto) 3.8 L [place] % (Auto) Lymph # 0.2 L Seg Neutrophils % 88.8 H Seg Neuts % (Manual) Lymphocytes % (Manual) Nucleated RBC % Seg Neutrophils # Man Lymphocytes # (Manual) Monocytes # (Manual) Eosinophils # (Manual) PT INR D-Dimer Heparin Anti-Xa Level ABG pH ABG pO2 ABG HCO3 ABG O2 Saturation ABG Base Excess ABG Hemoglobin Oxyhemoglobin Sodium Potassium Chloride 96.8 L Carbon Dioxide BUN 26 H Creatinine 4.2 H Glucose 115 H POC Glucose 130 H Calcium 8.2 L Magnesium Ferritin Direct Bilirubin AST ALT Alkaline Phosphatase Lactate Dehydrogenase 537 H Troponin T C-Reactive Protein 17.10 H NT-Pro-B Natriuret Pep Total Protein Albumin Crossmatch 01/18/20 01/18/20 01/18/20 06:25 06:25 12:15 WBC RBC Hgb Hct MCV RDW Plt Count Lymph % (Auto) [place] % (Auto) Lymph # Seg Neutrophils % Seg Neuts % (Manual) Lymphocytes % (Manual) Nucleated RBC % Seg Neutrophils # Man Lymphocytes # (Manual) Monocytes # (Manual) Eosinophils # (Manual) PT INR D-Dimer 938.03 H Heparin Anti-Xa Level ABG pH ABG pO2 66.5 L ABG HCO3 30.1 H ABG O2 Saturation 93.2 L ABG Base Excess 4.6 H ABG Hemoglobin 10.0 L Oxyhemoglobin 91.3 L Sodium Potassium Chloride Carbon Dioxide BUN Creatinine Glucose POC Glucose Calcium Magnesium Ferritin 3105.0 H Direct Bilirubin AST ALT Alkaline Phosphatase Lactate Dehydrogenase Troponin T C-Reactive Protein NT-Pro-B Natriuret Pep Total Protein Albumin Crossmatch 01/20/20 01/20/20 01/20/20 07:37 07:37 07:37 WBC RBC Hgb Hct MCV RDW Plt Count Lymph % (Auto) [place] % (Auto) Lymph # Seg Neutrophils % Seg Neuts % (Manual) Lymphocytes % (Manual) Nucleated RBC % Seg Neutrophils # Man Lymphocytes # (Manual) Monocytes # (Manual) Eosinophils # (Manual) PT INR D-Dimer 2072.25 H Heparin Anti-Xa Level ABG pH ABG pO2 ABG HCO3 ABG O2 Saturation ABG Base Excess ABG Hemoglobin Oxyhemoglobin Sodium Potassium Chloride Carbon Dioxide BUN Creatinine Glucose POC Glucose Calcium Magnesium Ferritin 1826.0 H Direct Bilirubin AST ALT Alkaline Phosphatase Lactate Dehydrogenase 496 H Troponin T C-Reactive Protein 19.30 H NT-Pro-B Natriuret Pep Total Protein Albumin Crossmatch 01/20/20 01/21/20 01/21/20 17:30 03:59 17:35 WBC RBC Hgb Hct MCV RDW Plt Count Lymph % (Auto) [place] % (Auto) Lymph # Seg Neutrophils % Seg Neuts % (Manual) Lymphocytes % (Manual) Nucleated RBC % Seg Neutrophils # Man Lymphocytes # (Manual) Monocytes # (Manual) Eosinophils # (Manual) PT INR D-Dimer Heparin Anti-Xa Level ABG pH ABG pO2 61.1 L 67.4 L ABG HCO3 29.9 H 26.2 H ABG O2 Saturation 91.7 L 93.4 L ABG Base Excess 4.9 H ABG Hemoglobin 9.0 L 9.1 L Oxyhemoglobin 89.5 L 91.1 L Sodium 136 L Potassium Chloride Carbon Dioxide BUN 36 H Creatinine 4.9 H Glucose POC Glucose Calcium Magnesium Ferritin Direct Bilirubin AST ALT Alkaline Phosphatase Lactate Dehydrogenase Troponin T C-Reactive Protein NT-Pro-B Natriuret Pep Total Protein Albumin Crossmatch 01/21/20 01/22/2020 Unknown 03:41 03:41 WBC RBC Hgb Hct MCV RDW Plt Count Lymph % (Auto) [place] % (Auto) Lymph # Seg Neutrophils % Seg Neuts % (Manual) Lymphocytes % (Manual) Nucleated RBC % Seg Neutrophils # Man Lymphocytes # (Manual) Monocytes # (Manual) Eosinophils # (Manual) PT INR D-Dimer Heparin Anti-Xa Level ABG pH 7.465 H ABG pO2 48.9 L ABG HCO3 26.6 H ABG O2 Saturation 85.7 L ABG Base Excess ABG Hemoglobin 10.4 L Oxyhemoglobin 83.5 L Sodium Potassium Chloride Carbon Dioxide BUN Creatinine Glucose POC Glucose Calcium Magnesium Ferritin 6071.0 H Direct Bilirubin AST ALT Alkaline Phosphatase Lactate Dehydrogenase 963 H Troponin T C-Reactive Protein 30.00 H NT-Pro-B Natriuret Pep Total Protein Albumin Crossmatch 01/22/20 01/22/20 01/22/20 03:41 07:47 11:20 WBC RBC Hgb Hct MCV RDW Plt Count Lymph % (Auto) [place] % (Auto) Lymph # Seg Neutrophils % Seg Neuts % (Manual) Lymphocytes % (Manual) Nucleated RBC % Seg Neutrophils # Man Lymphocytes # (Manual) Monocytes # (Manual) Eosinophils # (Manual) PT INR D-Dimer > 05975 H Heparin Anti-Xa Level ABG pH ABG pO2 66.7 L ABG HCO3 28.7 H ABG O2 Saturation 91.9 L ABG Base Excess ABG Hemoglobin 9.1 L Oxyhemoglobin 89.5 L Sodium Potassium Chloride 94.3 L Carbon Dioxide BUN 53 H Creatinine 6.5 H Glucose POC Glucose Calcium Magnesium Ferritin Direct Bilirubin AST ALT Alkaline Phosphatase Lactate Dehydrogenase Troponin T C-Reactive Protein NT-Pro-B Natriuret Pep Total Protein Albumin Crossmatch 01/22/20 01/22/20 01/23/20 11:49 Unknown 04:55 WBC 15.1 H RBC 3.05 L Hgb 8.8 L Hct 28.3 L MCV RDW 17.8 H Plt Count 125 L Lymph % (Auto) [place] % (Auto) Lymph # Seg Neutrophils % Seg Neuts % (Manual) Lymphocytes % (Manual) Nucleated RBC % Seg Neutrophils # Man Lymphocytes # (Manual) Monocytes # (Manual) Eosinophils # (Manual) PT INR D-Dimer Heparin Anti-Xa Level ABG pH 7.340 L ABG pO2 77.7 L 136.3 H ABG HCO3 27.6 H 28.8 H ABG O2 Saturation ABG Base Excess ABG Hemoglobin 9.3 L 10.9 L Oxyhemoglobin 94.2 L Sodium Potassium Chloride Carbon Dioxide BUN Creatinine Glucose POC Glucose Calcium Magnesium Ferritin Direct Bilirubin AST ALT Alkaline Phosphatase Lactate Dehydrogenase Troponin T C-Reactive Protein NT-Pro-B Natriuret Pep Total Protein Albumin Crossmatch 01/23/20 01/23/20 01/23/20 06:23 07:07 12:23 WBC RBC Hgb Hct MCV RDW Plt Count Lymph % (Auto) [place] % (Auto) Lymph # Seg Neutrophils % Seg Neuts % (Manual) Lymphocytes % (Manual) Nucleated RBC % Seg Neutrophils # Man Lymphocytes # (Manual) Monocytes # (Manual) Eosinophils # (Manual) PT INR D-Dimer Heparin Anti-Xa Level ABG pH ABG pO2 ABG HCO3 ABG O2 Saturation ABG Base Excess ABG Hemoglobin Oxyhemoglobin Sodium Potassium Chloride Carbon Dioxide BUN Creatinine Glucose POC Glucose 57 L 127 H 131 H Calcium Magnesium Ferritin Direct Bilirubin AST ALT Alkaline Phosphatase Lactate Dehydrogenase Troponin T C-Reactive Protein NT-Pro-B Natriuret Pep Total Protein Albumin Crossmatch 01/23/20 01/23/20 01/24/20 Unknown Unknown 04:00 WBC 16.2 H RBC 3.08 L Hgb 8.9 L Hct 28.6 L MCV RDW 17.8 H Plt Count 139 L Lymph % (Auto) [place] % (Auto) Lymph # Seg Neutrophils % Seg Neuts % (Manual) Lymphocytes % (Manual) Nucleated RBC % Seg Neutrophils # Man Lymphocytes # (Manual) Monocytes # (Manual) Eosinophils # (Manual) PT INR D-Dimer Heparin Anti-Xa Level < 0.10 L ABG pH ABG pO2 ABG HCO3 ABG O2 Saturation ABG Base Excess ABG Hemoglobin Oxyhemoglobin Sodium Potassium Chloride Carbon Dioxide BUN Creatinine Glucose POC Glucose Calcium Magnesium Ferritin 4195.0 H Direct Bilirubin AST ALT Alkaline Phosphatase Lactate Dehydrogenase Troponin T C-Reactive Protein NT-Pro-B Natriuret Pep Total Protein Albumin Crossmatch 01/24/20 01/24/20 01/24/20 04:00 04:00 04:00 WBC RBC Hgb Hct MCV RDW Plt Count Lymph % (Auto) [place] % (Auto) Lymph # Seg Neutrophils % Seg Neuts % (Manual) Lymphocytes % (Manual) Nucleated RBC % Seg Neutrophils # Man Lymphocytes # (Manual) Monocytes # (Manual) Eosinophils # (Manual) PT INR D-Dimer 5783.11 H Heparin Anti-Xa Level ABG pH 7.188 L* ABG pO2 70.8 L ABG HCO3 32.2 H ABG O2 Saturation 90.4 L ABG Base Excess ABG Hemoglobin 8.5 L Oxyhemoglobin 88.1 L Sodium Potassium Chloride Carbon Dioxide BUN Creatinine Glucose POC Glucose Calcium Magnesium Ferritin Direct Bilirubin AST ALT Alkaline Phosphatase Lactate Dehydrogenase 474 H Troponin T C-Reactive Protein 29.80 H NT-Pro-B Natriuret Pep Total Protein Albumin Crossmatch 01/24/20 01/24/20 01/24/20 05:20 05:51 09:14 WBC RBC Hgb Hct MCV RDW Plt Count Lymph % (Auto) [place] % (Auto) Lymph # Seg Neutrophils % Seg Neuts % (Manual) Lymphocytes % (Manual) Nucleated RBC % Seg Neutrophils # Man Lymphocytes # (Manual) Monocytes # (Manual) Eosinophils # (Manual) PT INR D-Dimer Heparin Anti-Xa Level ABG pH 7.214 L ABG pO2 71.7 L ABG HCO3 31.5 H ABG O2 Saturation 91.8 L ABG Base Excess ABG Hemoglobin 9.1 L Oxyhemoglobin 89.3 L Sodium Potassium Chloride Carbon Dioxide BUN Creatinine Glucose POC Glucose 50 L 53 L Calcium Magnesium Ferritin Direct Bilirubin AST ALT Alkaline Phosphatase Lactate Dehydrogenase Troponin T C-Reactive Protein NT-Pro-B Natriuret Pep Total Protein Albumin Crossmatch 01/24/20 01/24/20 01/24/20 15:10 18:04 21:10 WBC RBC Hgb Hct MCV RDW Plt Count Lymph % (Auto) [place] % (Auto) Lymph # Seg Neutrophils % Seg Neuts % (Manual) Lymphocytes % (Manual) Nucleated RBC % Seg Neutrophils # Man Lymphocytes # (Manual) Monocytes # (Manual) Eosinophils # (Manual) PT INR D-Dimer Heparin Anti-Xa Level ABG pH ABG pO2 ABG HCO3 ABG O2 Saturation ABG Base Excess ABG Hemoglobin Oxyhemoglobin Sodium Potassium Chloride Carbon Dioxide BUN Creatinine Glucose POC Glucose 114 H 51 L 144 H Calcium Magnesium Ferritin Direct Bilirubin AST ALT Alkaline Phosphatase Lactate Dehydrogenase Troponin T C-Reactive Protein NT-Pro-B Natriuret Pep Total Protein Albumin Crossmatch 01/24/20 01/25/20 01/25/20 Unknown 00:32 03:50 WBC 13.0 H RBC 3.10 L Hgb 9.2 L Hct 29.0 L MCV RDW 17.7 H Plt Count Lymph % (Auto) [place] % (Auto) Lymph # Seg Neutrophils % Seg Neuts % (Manual) 92.0 H Lymphocytes % (Manual) 5.0 L Nucleated RBC % Seg Neutrophils # Man 12.0 H Lymphocytes # (Manual) 0.7 L Monocytes # (Manual) Eosinophils # (Manual) PT INR D-Dimer Heparin Anti-Xa Level ABG pH 7.291 L ABG pO2 71.3 L ABG HCO3 30.6 H ABG O2 Saturation 93.6 L ABG Base Excess 3.3 H ABG Hemoglobin 8.1 L Oxyhemoglobin 91.2 L Sodium Potassium Chloride Carbon Dioxide BUN Creatinine Glucose POC Glucose 114 H Calcium Magnesium Ferritin Direct Bilirubin AST ALT Alkaline Phosphatase Lactate Dehydrogenase Troponin T C-Reactive Protein NT-Pro-B Natriuret Pep Total Protein Albumin Crossmatch 01/25/20 01/25/20 01/25/20 04:22 06:05 17:28 WBC RBC Hgb Hct MCV RDW Plt Count Lymph % (Auto) [place] % (Auto) Lymph # Seg Neutrophils % Seg Neuts % (Manual) Lymphocytes % (Manual) Nucleated RBC % Seg Neutrophils # Man Lymphocytes # (Manual) Monocytes # (Manual) Eosinophils # (Manual) PT INR D-Dimer Heparin Anti-Xa Level ABG pH 7.304 L ABG pO2 69.5 L ABG HCO3 29.7 H ABG O2 Saturation 93.2 L ABG Base Excess ABG Hemoglobin 8.7 L Oxyhemoglobin 90.7 L Sodium Potassium Chloride Carbon Dioxide BUN Creatinine Glucose POC Glucose 136 H 127 H Calcium Magnesium Ferritin Direct Bilirubin AST ALT Alkaline Phosphatase Lactate Dehydrogenase Troponin T C-Reactive Protein NT-Pro-B Natriuret Pep Total Protein Albumin Crossmatch 01/26/20 01/26/20 01/26/20 00:20 02:31 02:31 WBC RBC Hgb Hct MCV RDW Plt Count Lymph % (Auto) [place] % (Auto) Lymph # Seg Neutrophils % Seg Neuts % (Manual) Lymphocytes % (Manual) Nucleated RBC % Seg Neutrophils # Man Lymphocytes # (Manual) Monocytes # (Manual) Eosinophils # (Manual) PT INR D-Dimer Heparin Anti-Xa Level ABG pH ABG pO2 ABG HCO3 ABG O2 Saturation ABG Base Excess ABG Hemoglobin Oxyhemoglobin Sodium Potassium Chloride Carbon Dioxide BUN Creatinine Glucose POC Glucose 127 H Calcium Magnesium Ferritin 3764.0 H Direct Bilirubin AST ALT Alkaline Phosphatase Lactate Dehydrogenase 393 H Troponin T C-Reactive Protein 28.60 H NT-Pro-B Natriuret Pep Total Protein Albumin Crossmatch 01/26/20 01/26/20 01/26/20 02:31 04:45 05:24 WBC RBC Hgb Hct MCV RDW Plt Count Lymph % (Auto) [place] % (Auto) Lymph # Seg Neutrophils % Seg Neuts % (Manual) Lymphocytes % (Manual) Nucleated RBC % Seg Neutrophils # Man Lymphocytes # (Manual) Monocytes # (Manual) Eosinophils # (Manual) PT INR D-Dimer 3828.76 H Heparin Anti-Xa Level ABG pH ABG pO2 ABG HCO3 30.8 H ABG O2 Saturation ABG Base Excess 4.9 H ABG Hemoglobin 7.4 L Oxyhemoglobin 94.6 L Sodium Potassium Chloride Carbon Dioxide BUN Creatinine Glucose POC Glucose 121 H Calcium Magnesium Ferritin Direct Bilirubin AST ALT Alkaline Phosphatase Lactate Dehydrogenase Troponin T C-Reactive Protein NT-Pro-B Natriuret Pep Total Protein Albumin Crossmatch 01/26/20 01/26/20 01/26/20 10:40 12:36 18:10 WBC RBC Hgb Hct MCV RDW Plt Count Lymph % (Auto) [place] % (Auto) Lymph # Seg Neutrophils % Seg Neuts % (Manual) Lymphocytes % (Manual) Nucleated RBC % Seg Neutrophils # Man Lymphocytes # (Manual) Monocytes # (Manual) Eosinophils # (Manual) PT INR D-Dimer Heparin Anti-Xa Level ABG pH ABG pO2 ABG HCO3 ABG O2 Saturation ABG Base Excess ABG Hemoglobin Oxyhemoglobin Sodium Potassium Chloride Carbon Dioxide BUN Creatinine Glucose POC Glucose 119 H 126 H 159 H Calcium Magnesium Ferritin Direct Bilirubin AST ALT Alkaline Phosphatase Lactate Dehydrogenase Troponin T C-Reactive Protein NT-Pro-B Natriuret Pep Total Protein Albumin Crossmatch 01/27/20 01/27/20 01/27/20 03:45 06:15 12:19 WBC RBC Hgb Hct MCV RDW Plt Count Lymph % (Auto) [place] % (Auto) Lymph # Seg Neutrophils % Seg Neuts % (Manual) Lymphocytes % (Manual) Nucleated RBC % Seg Neutrophils # Man Lymphocytes # (Manual) Monocytes # (Manual) Eosinophils # (Manual) PT INR D-Dimer Heparin Anti-Xa Level ABG pH 7.307 L ABG pO2 91.1 H ABG HCO3 30.5 H ABG O2 Saturation ABG Base Excess 3.4 H ABG Hemoglobin 8.7 L Oxyhemoglobin 94.3 L Sodium Potassium Chloride Carbon Dioxide BUN Creatinine Glucose POC Glucose 147 H 164 H Calcium Magnesium Ferritin Direct Bilirubin AST ALT Alkaline Phosphatase Lactate Dehydrogenase Troponin T C-Reactive Protein NT-Pro-B Natriuret Pep Total Protein Albumin Crossmatch 01/27/20 01/28/20 01/28/20 17:42 00:29 04:34 WBC RBC Hgb Hct MCV RDW Plt Count Lymph % (Auto) [place] % (Auto) Lymph # Seg Neutrophils % Seg Neuts % (Manual) Lymphocytes % (Manual) Nucleated RBC % Seg Neutrophils # Man Lymphocytes # (Manual) Monocytes # (Manual) Eosinophils # (Manual) PT INR D-Dimer Heparin Anti-Xa Level ABG pH ABG pO2 ABG HCO3 ABG O2 Saturation ABG Base Excess ABG Hemoglobin Oxyhemoglobin Sodium Potassium Chloride Carbon Dioxide BUN Creatinine Glucose POC Glucose 149 H 178 H Calcium Magnesium Ferritin > 2000.0 H Direct Bilirubin AST ALT Alkaline Phosphatase Lactate Dehydrogenase Troponin T C-Reactive Protein NT-Pro-B Natriuret Pep Total Protein Albumin Crossmatch 01/28/20 01/28/20 01/28/20 04:34 04:34 05:20 WBC RBC Hgb Hct MCV RDW Plt Count Lymph % (Auto) [place] % (Auto) Lymph # Seg Neutrophils % Seg Neuts % (Manual) Lymphocytes % (Manual) Nucleated RBC % Seg Neutrophils # Man Lymphocytes # (Manual) Monocytes # (Manual) Eosinophils # (Manual) PT INR D-Dimer 2379 H Heparin Anti-Xa Level ABG pH 7.237 L ABG pO2 90.9 H ABG HCO3 29.1 H ABG O2 Saturation ABG Base Excess ABG Hemoglobin 7.5 L Oxyhemoglobin 94.0 L Sodium Potassium Chloride Carbon Dioxide BUN Creatinine Glucose POC Glucose Calcium Magnesium Ferritin Direct Bilirubin AST ALT Alkaline Phosphatase Lactate Dehydrogenase 434 H Troponin T C-Reactive Protein 9.70 H NT-Pro-B Natriuret Pep Total Protein Albumin Crossmatch 01/28/20 01/28/20 01/28/20 06:21 12:25 18:17 WBC RBC Hgb Hct MCV RDW Plt Count Lymph % (Auto) [place] % (Auto) Lymph # Seg Neutrophils % Seg Neuts % (Manual) Lymphocytes % (Manual) Nucleated RBC % Seg Neutrophils # Man Lymphocytes # (Manual) Monocytes # (Manual) Eosinophils # (Manual) PT INR D-Dimer Heparin Anti-Xa Level ABG pH ABG pO2 ABG HCO3 ABG O2 Saturation ABG Base Excess ABG Hemoglobin Oxyhemoglobin Sodium Potassium Chloride Carbon Dioxide BUN Creatinine Glucose POC Glucose 127 H 196 H 190 H Calcium Magnesium Ferritin Direct Bilirubin AST ALT Alkaline Phosphatase Lactate Dehydrogenase Troponin T C-Reactive Protein NT-Pro-B Natriuret Pep Total Protein Albumin Crossmatch 01/28/20 01/29/20 01/29/20 23:35 04:00 04:00 WBC 12.6 H RBC 3.01 L Hgb 9.2 L Hct 29.3 L MCV 98 H RDW 18.1 H Plt Count Lymph % (Auto) [place] % (Auto) Lymph # Seg Neutrophils % Seg Neuts % (Manual) Lymphocytes % (Manual) Nucleated RBC % Seg Neutrophils # Man Lymphocytes # (Manual) Monocytes # (Manual) Eosinophils # (Manual) PT INR D-Dimer Heparin Anti-Xa Level ABG pH ABG pO2 ABG HCO3 ABG O2 Saturation ABG Base Excess ABG Hemoglobin Oxyhemoglobin Sodium 132 L Potassium Chloride 90.1 L Carbon Dioxide BUN 50 H Creatinine 3.7 H Glucose 184 H POC Glucose 177 H Calcium Magnesium Ferritin Direct Bilirubin AST 93 H ALT Alkaline Phosphatase 678 H Lactate Dehydrogenase Troponin T C-Reactive Protein NT-Pro-B Natriuret Pep Total Protein Albumin 1.7 L Crossmatch 01/29/20 01/29/20 01/29/20 05:03 11:53 16:44 WBC RBC Hgb Hct MCV RDW Plt Count Lymph % (Auto) [place] % (Auto) Lymph # Seg Neutrophils % Seg Neuts % (Manual) Lymphocytes % (Manual) Nucleated RBC % Seg Neutrophils # Man Lymphocytes # (Manual) Monocytes # (Manual) Eosinophils # (Manual) PT INR D-Dimer Heparin Anti-Xa Level ABG pH ABG pO2 ABG HCO3 ABG O2 Saturation ABG Base Excess ABG Hemoglobin Oxyhemoglobin Sodium Potassium Chloride Carbon Dioxide BUN Creatinine Glucose POC Glucose 145 H 193 H 174 H Calcium Magnesium Ferritin Direct Bilirubin AST ALT Alkaline Phosphatase Lactate Dehydrogenase Troponin T C-Reactive Protein NT-Pro-B Natriuret Pep Total Protein Albumin Crossmatch 01/29/20 01/30/20 01/30/20 23:38 04:25 11:45 WBC RBC Hgb Hct MCV RDW Plt Count Lymph % (Auto) [place] % (Auto) Lymph # Seg Neutrophils % Seg Neuts % (Manual) Lymphocytes % (Manual) Nucleated RBC % Seg Neutrophils # Man Lymphocytes # (Manual) Monocytes # (Manual) Eosinophils # (Manual) PT INR D-Dimer Heparin Anti-Xa Level ABG pH 7.253 L ABG pO2 61.8 L ABG HCO3 29.7 H ABG O2 Saturation 90.1 L ABG Base Excess ABG Hemoglobin 8.2 L Oxyhemoglobin 87.5 L Sodium Potassium Chloride Carbon Dioxide BUN Creatinine Glucose POC Glucose 144 H 191 H Calcium Magnesium Ferritin Direct Bilirubin AST ALT Alkaline Phosphatase Lactate Dehydrogenase Troponin T C-Reactive Protein NT-Pro-B Natriuret Pep Total Protein Albumin Crossmatch 01/30/20 01/31/20 01/31/20 18:21 00:04 03:52 WBC RBC Hgb Hct MCV RDW Plt Count Lymph % (Auto) [place] % (Auto) Lymph # Seg Neutrophils % Seg Neuts % (Manual) Lymphocytes % (Manual) Nucleated RBC % Seg Neutrophils # Man Lymphocytes # (Manual) Monocytes # (Manual) Eosinophils # (Manual) PT INR D-Dimer Heparin Anti-Xa Level ABG pH ABG pO2 69.3 L ABG HCO3 29.4 H ABG O2 Saturation ABG Base Excess 3.7 H ABG Hemoglobin 10.8 L Oxyhemoglobin Sodium Potassium Chloride Carbon Dioxide BUN Creatinine Glucose POC Glucose 198 H 129 H Calcium Magnesium Ferritin Direct Bilirubin AST ALT Alkaline Phosphatase Lactate Dehydrogenase Troponin T C-Reactive Protein NT-Pro-B Natriuret Pep Total Protein Albumin Crossmatch 01/31/20 01/31/20 01/31/20 04:00 04:16 05:12 WBC 16.7 H RBC 2.73 L Hgb 8.3 L Hct 25.7 L MCV RDW 18.0 H Plt Count Lymph % (Auto) [place] % (Auto) Lymph # Seg Neutrophils % Seg Neuts % (Manual) 92.0 H Lymphocytes % (Manual) 2.0 L Nucleated RBC % Seg Neutrophils # Man 15.4 H Lymphocytes # (Manual) 0.3 L Monocytes # (Manual) 1.0 H Eosinophils # (Manual) PT INR D-Dimer Heparin Anti-Xa Level ABG pH ABG pO2 ABG HCO3 ABG O2 Saturation ABG Base Excess ABG Hemoglobin Oxyhemoglobin Sodium 130 L Potassium Chloride 90.1 L Carbon Dioxide BUN 61 H Creatinine 3.4 H Glucose 128 H POC Glucose 157 H Calcium Magnesium Ferritin Direct Bilirubin AST 103 H ALT 63 H Alkaline Phosphatase 534 H Lactate Dehydrogenase Troponin T C-Reactive Protein NT-Pro-B Natriuret Pep Total Protein Albumin 2.1 L Crossmatch 01/31/20 01/31/20 01/31/20 11:50 17:39 18:47 WBC RBC Hgb Hct MCV RDW Plt Count Lymph % (Auto) [place] % (Auto) Lymph # Seg Neutrophils % Seg Neuts % (Manual) Lymphocytes % (Manual) Nucleated RBC % Seg Neutrophils # Man Lymphocytes # (Manual) Monocytes # (Manual) Eosinophils # (Manual) PT INR D-Dimer Heparin Anti-Xa Level ABG pH ABG pO2 ABG HCO3 ABG O2 Saturation ABG Base Excess ABG Hemoglobin Oxyhemoglobin Sodium Potassium Chloride Carbon Dioxide BUN Creatinine Glucose POC Glucose 129 H 51 L 172 H Calcium Magnesium Ferritin Direct Bilirubin AST ALT Alkaline Phosphatase Lactate Dehydrogenase Troponin T C-Reactive Protein NT-Pro-B Natriuret Pep Total Protein Albumin Crossmatch 02/01/20 02/01/20 02/01/20 03:49 03:49 05:00 WBC 17.4 H RBC 2.68 L Hgb 8.0 L Hct 25.2 L MCV RDW 18.4 H Plt Count Lymph % (Auto) [place] % (Auto) Lymph # Seg Neutrophils % Seg Neuts % (Manual) Lymphocytes % (Manual) Nucleated RBC % Seg Neutrophils # Man Lymphocytes # (Manual) Monocytes # (Manual) Eosinophils # (Manual) PT INR D-Dimer Heparin Anti-Xa Level ABG pH 7.290 L ABG pO2 ABG HCO3 26.8 H ABG O2 Saturation ABG Base Excess ABG Hemoglobin 7.5 L Oxyhemoglobin 94.2 L Sodium 133 L Potassium Chloride 90.8 L Carbon Dioxide 21 L BUN 90 H Creatinine 4.6 H Glucose 145 H POC Glucose Calcium Magnesium Ferritin Direct Bilirubin AST ALT Alkaline Phosphatase Lactate Dehydrogenase Troponin T C-Reactive Protein NT-Pro-B Natriuret Pep Total Protein Albumin Crossmatch 02/01/20 02/01/20 02/01/20 05:34 06:09 12:42 WBC RBC Hgb Hct MCV RDW Plt Count Lymph % (Auto) [place] % (Auto) Lymph # Seg Neutrophils % Seg Neuts % (Manual) Lymphocytes % (Manual) Nucleated RBC % Seg Neutrophils # Man Lymphocytes # (Manual) Monocytes # (Manual) Eosinophils # (Manual) PT INR D-Dimer Heparin Anti-Xa Level ABG pH ABG pO2 ABG HCO3 ABG O2 Saturation ABG Base Excess ABG Hemoglobin Oxyhemoglobin Sodium Potassium Chloride Carbon Dioxide BUN Creatinine Glucose POC Glucose 166 H 143 H 218 H Calcium Magnesium Ferritin Direct Bilirubin AST ALT Alkaline Phosphatase Lactate Dehydrogenase Troponin T C-Reactive Protein NT-Pro-B Natriuret Pep Total Protein Albumin Crossmatch 02/01/20 02/01/20 02/02/20 17:38 18:24 05:00 WBC RBC Hgb Hct MCV RDW Plt Count Lymph % (Auto) [place] % (Auto) Lymph # Seg Neutrophils % Seg Neuts % (Manual) Lymphocytes % (Manual) Nucleated RBC % Seg Neutrophils # Man Lymphocytes # (Manual) Monocytes # (Manual) Eosinophils # (Manual) PT INR D-Dimer Heparin Anti-Xa Level ABG pH 7.317 L ABG pO2 ABG HCO3 28.2 H ABG O2 Saturation ABG Base Excess ABG Hemoglobin 10.1 L Oxyhemoglobin 94.0 L Sodium Potassium Chloride Carbon Dioxide BUN Creatinine Glucose POC Glucose 158 H 233 H Calcium Magnesium Ferritin Direct Bilirubin AST ALT Alkaline Phosphatase Lactate Dehydrogenase Troponin T C-Reactive Protein NT-Pro-B Natriuret Pep Total Protein Albumin Crossmatch 02/02/20 02/02/20 02/02/20 05:44 05:44 05:44 WBC 16.0 H RBC 2.85 L Hgb 8.3 L Hct 26.3 L MCV RDW 18.6 H Plt Count Lymph % (Auto) [place] % (Auto) Lymph # Seg Neutrophils % Seg Neuts % (Manual) 91.0 H Lymphocytes % (Manual) 2.0 L Nucleated RBC % Seg Neutrophils # Man 14.6 H Lymphocytes # (Manual) 0.3 L Monocytes # (Manual) Eosinophils # (Manual) PT INR D-Dimer Heparin Anti-Xa Level 0.77 H ABG pH ABG pO2 ABG HCO3 ABG O2 Saturation ABG Base Excess ABG Hemoglobin Oxyhemoglobin Sodium Potassium Chloride 95.5 L Carbon Dioxide BUN 57 H Creatinine 3.0 H Glucose 144 H POC Glucose Calcium 8.1 L Magnesium Ferritin Direct Bilirubin 0.3 H AST 179 H ALT 106 H Alkaline Phosphatase 557 H Lactate Dehydrogenase Troponin T C-Reactive Protein NT-Pro-B Natriuret Pep Total Protein 6.1 L Albumin 2.3 L Crossmatch 02/02/20 02/02/20 02/02/20 11:17 11:33 12:24 WBC RBC Hgb Hct MCV RDW Plt Count Lymph % (Auto) [place] % (Auto) Lymph # Seg Neutrophils % Seg Neuts % (Manual) Lymphocytes % (Manual) Nucleated RBC % Seg Neutrophils # Man Lymphocytes # (Manual) Monocytes # (Manual) Eosinophils # (Manual) PT INR D-Dimer Heparin Anti-Xa Level ABG pH ABG pO2 ABG HCO3 ABG O2 Saturation ABG Base Excess ABG Hemoglobin Oxyhemoglobin Sodium Potassium Chloride Carbon Dioxide BUN Creatinine Glucose POC Glucose < 40 L < 40 L 224 H Calcium Magnesium Ferritin Direct Bilirubin AST ALT Alkaline Phosphatase Lactate Dehydrogenase Troponin T C-Reactive Protein NT-Pro-B Natriuret Pep Total Protein Albumin Crossmatch 02/02/20 02/02/20 02/03/20 12:33 17:42 00:25 WBC RBC Hgb Hct MCV RDW Plt Count Lymph % (Auto) [place] % (Auto) Lymph # Seg Neutrophils % Seg Neuts % (Manual) Lymphocytes % (Manual) Nucleated RBC % Seg Neutrophils # Man Lymphocytes # (Manual) Monocytes # (Manual) Eosinophils # (Manual) PT INR D-Dimer Heparin Anti-Xa Level ABG pH ABG pO2 ABG HCO3 ABG O2 Saturation ABG Base Excess ABG Hemoglobin Oxyhemoglobin Sodium Potassium Chloride Carbon Dioxide BUN Creatinine Glucose 296 H POC Glucose 228 H < 40 L Calcium Magnesium Ferritin Direct Bilirubin AST ALT Alkaline Phosphatase Lactate Dehydrogenase Troponin T C-Reactive Protein NT-Pro-B Natriuret Pep Total Protein Albumin Crossmatch 02/03/20 02/03/20 02/03/20 00:27 03:59 03:59 WBC 22.9 H RBC 2.80 L Hgb 8.3 L Hct 27.4 L MCV 98 H RDW 19.2 H Plt Count Lymph % (Auto) [place] % (Auto) Lymph # Seg Neutrophils % Seg Neuts % (Manual) 92.0 H Lymphocytes % (Manual) 4.0 L Nucleated RBC % Seg Neutrophils # Man 21.1 H Lymphocytes # (Manual) 0.9 L Monocytes # (Manual) Eosinophils # (Manual) PT INR D-Dimer Heparin Anti-Xa Level ABG pH ABG pO2 ABG HCO3 ABG O2 Saturation ABG Base Excess ABG Hemoglobin Oxyhemoglobin Sodium 134 L Potassium 3.5 L Chloride Carbon Dioxide 21 L BUN 40 H Creatinine 2.6 H Glucose 180 H POC Glucose 198 H Calcium Magnesium Ferritin Direct Bilirubin AST ALT Alkaline Phosphatase Lactate Dehydrogenase Troponin T C-Reactive Protein NT-Pro-B Natriuret Pep Total Protein Albumin Crossmatch 02/03/20 02/03/20 02/03/20 04:48 05:00 12:21 WBC RBC Hgb Hct MCV RDW Plt Count Lymph % (Auto) [place] % (Auto) Lymph # Seg Neutrophils % Seg Neuts % (Manual) Lymphocytes % (Manual) Nucleated RBC % Seg Neutrophils # Man Lymphocytes # (Manual) Monocytes # (Manual) Eosinophils # (Manual) PT INR D-Dimer Heparin Anti-Xa Level ABG pH 7.315 L ABG pO2 97.3 H ABG HCO3 28.5 H ABG O2 Saturation ABG Base Excess ABG Hemoglobin 8.3 L Oxyhemoglobin 94.8 L Sodium Potassium Chloride Carbon Dioxide BUN Creatinine Glucose POC Glucose 182 H 201 H Calcium Magnesium Ferritin Direct Bilirubin AST ALT Alkaline Phosphatase Lactate Dehydrogenase Troponin T C-Reactive Protein NT-Pro-B Natriuret Pep Total Protein Albumin Crossmatch 02/03/20 02/03/20 02/04/20 17:43 23:36 04:50 WBC RBC Hgb Hct MCV RDW Plt Count Lymph % (Auto) [place] % (Auto) Lymph # Seg Neutrophils % Seg Neuts % (Manual) Lymphocytes % (Manual) Nucleated RBC % Seg Neutrophils # Man Lymphocytes # (Manual) Monocytes # (Manual) Eosinophils # (Manual) PT INR D-Dimer Heparin Anti-Xa Level ABG pH ABG pO2 ABG HCO3 ABG O2 Saturation ABG Base Excess ABG Hemoglobin Oxyhemoglobin Sodium 135 L Potassium Chloride 96.3 L Carbon Dioxide 21 L BUN 63 H Creatinine 4.1 H D Glucose 156 H POC Glucose 224 H 146 H Calcium 8.2 L Magnesium Ferritin Direct Bilirubin AST ALT Alkaline Phosphatase Lactate Dehydrogenase Troponin T C-Reactive Protein NT-Pro-B Natriuret Pep Total Protein Albumin Crossmatch 02/04/20 02/04/20 02/04/20 04:50 05:30 05:40 WBC 18.3 H RBC 2.31 L Hgb 6.9 L Hct 22.0 L MCV RDW 18.2 H Plt Count Lymph % (Auto) [place] % (Auto) Lymph # Seg Neutrophils % Seg Neuts % (Manual) 85.0 H Lymphocytes % (Manual) 4.0 L Nucleated RBC % 1.0 H Seg Neutrophils # Man 15.6 H Lymphocytes # (Manual) 0.7 L Monocytes # (Manual) Eosinophils # (Manual) PT INR D-Dimer Heparin Anti-Xa Level ABG pH 7.317 L ABG pO2 77.7 L ABG HCO3 27.4 H ABG O2 Saturation ABG Base Excess ABG Hemoglobin 8.0 L Oxyhemoglobin 94.5 L Sodium Potassium Chloride Carbon Dioxide BUN Creatinine Glucose POC Glucose 202 H Calcium Magnesium Ferritin Direct Bilirubin AST ALT Alkaline Phosphatase Lactate Dehydrogenase Troponin T C-Reactive Protein NT-Pro-B Natriuret Pep Total Protein Albumin Crossmatch 02/04/20 02/04/20 02/04/20 10:47 12:53 18:44 WBC RBC Hgb Hct MCV RDW Plt Count Lymph % (Auto) [place] % (Auto) Lymph # Seg Neutrophils % Seg Neuts % (Manual) Lymphocytes % (Manual) Nucleated RBC % Seg Neutrophils # Man Lymphocytes # (Manual) Monocytes # (Manual) Eosinophils # (Manual) PT INR D-Dimer Heparin Anti-Xa Level ABG pH ABG pO2 ABG HCO3 ABG O2 Saturation ABG Base Excess ABG Hemoglobin Oxyhemoglobin Sodium Potassium Chloride Carbon Dioxide BUN Creatinine Glucose POC Glucose 197 H 143 H Calcium Magnesium Ferritin Direct Bilirubin AST ALT Alkaline Phosphatase Lactate Dehydrogenase Troponin T C-Reactive Protein NT-Pro-B Natriuret Pep Total Protein Albumin Crossmatch See Detail 02/05/20 02/05/20 02/05/20 00:43 04:14 04:35 WBC RBC Hgb Hct MCV RDW Plt Count Lymph % (Auto) [place] % (Auto) Lymph # Seg Neutrophils % Seg Neuts % (Manual) Lymphocytes % (Manual) Nucleated RBC % Seg Neutrophils # Man Lymphocytes # (Manual) Monocytes # (Manual) Eosinophils # (Manual) PT INR D-Dimer Heparin Anti-Xa Level ABG pH 7.327 L ABG pO2 75.5 L ABG HCO3 30.1 H ABG O2 Saturation ABG Base Excess 3.5 H ABG Hemoglobin 8.4 L Oxyhemoglobin 93.8 L Sodium 134 L Potassium 3.3 L Chloride 97.3 L Carbon Dioxide BUN 38 H Creatinine 2.2 H Glucose 187 H POC Glucose 163 H Calcium 8.1 L Magnesium Ferritin Direct Bilirubin AST ALT Alkaline Phosphatase Lactate Dehydrogenase Troponin T C-Reactive Protein NT-Pro-B Natriuret Pep Total Protein Albumin Crossmatch 02/05/20 02/05/20 02/05/20 04:35 05:16 12:17 WBC 24.4 H RBC 2.75 L Hgb 7.9 L Hct 25.2 L MCV RDW 18.1 H Plt Count Lymph % (Auto) [place] % (Auto) Lymph # Seg Neutrophils % Seg Neuts % (Manual) 96.0 H Lymphocytes % (Manual) 1.0 L Nucleated RBC % Seg Neutrophils # Man 23.4 H Lymphocytes # (Manual) 0.2 L Monocytes # (Manual) Eosinophils # (Manual) 0.5 H PT INR D-Dimer Heparin Anti-Xa Level ABG pH ABG pO2 ABG HCO3 ABG O2 Saturation ABG Base Excess ABG Hemoglobin Oxyhemoglobin Sodium Potassium Chloride Carbon Dioxide BUN Creatinine Glucose POC Glucose 196 H 174 H Calcium Magnesium Ferritin Direct Bilirubin AST ALT Alkaline Phosphatase Lactate Dehydrogenase Troponin T C-Reactive Protein NT-Pro-B Natriuret Pep Total Protein Albumin Crossmatch 02/05/20 02/05/20 02/05/20 13:55 13:55 13:55 WBC RBC Hgb Hct MCV RDW Plt Count Lymph % (Auto) [place] % (Auto) Lymph # Seg Neutrophils % Seg Neuts % (Manual) Lymphocytes % (Manual) Nucleated RBC % Seg Neutrophils # Man Lymphocytes # (Manual) Monocytes # (Manual) Eosinophils # (Manual) PT INR D-Dimer 2896.73 H Heparin Anti-Xa Level ABG pH ABG pO2 ABG HCO3 ABG O2 Saturation ABG Base Excess ABG Hemoglobin Oxyhemoglobin Sodium Potassium Chloride Carbon Dioxide BUN Creatinine Glucose POC Glucose Calcium Magnesium Ferritin > 2000.0 H Direct Bilirubin AST ALT Alkaline Phosphatase Lactate Dehydrogenase 311 H Troponin T C-Reactive Protein 17.30 H NT-Pro-B Natriuret Pep Total Protein Albumin Crossmatch 02/05/20 02/05/20 02/06/20 17:20 21:53 04:50 WBC RBC Hgb Hct MCV RDW Plt Count Lymph % (Auto) [place] % (Auto) Lymph # Seg Neutrophils % Seg Neuts % (Manual) Lymphocytes % (Manual) Nucleated RBC % Seg Neutrophils # Man Lymphocytes # (Manual) Monocytes # (Manual) Eosinophils # (Manual) PT INR D-Dimer Heparin Anti-Xa Level ABG pH 7.349 L ABG pO2 64.5 L ABG HCO3 28.4 H ABG O2 Saturation 94.0 L ABG Base Excess ABG Hemoglobin 8.4 L Oxyhemoglobin 91.8 L Sodium Potassium Chloride Carbon Dioxide BUN Creatinine Glucose POC Glucose 191 H 200 H Calcium Magnesium Ferritin Direct Bilirubin AST ALT Alkaline Phosphatase Lactate Dehydrogenase Troponin T C-Reactive Protein NT-Pro-B Natriuret Pep Total Protein Albumin Crossmatch 02/06/20 02/06/20 02/06/20 05:55 05:55 05:58 WBC 22.4 H RBC 3.02 L Hgb 8.5 L Hct 27.6 L MCV RDW 18.8 H Plt Count Lymph % (Auto) [place] % (Auto) Lymph # Seg Neutrophils % Seg Neuts % (Manual) Lymphocytes % (Manual) Nucleated RBC % Seg Neutrophils # Man Lymphocytes # (Manual) Monocytes # (Manual) Eosinophils # (Manual) PT INR D-Dimer Heparin Anti-Xa Level ABG pH ABG pO2 ABG HCO3 ABG O2 Saturation ABG Base Excess ABG Hemoglobin Oxyhemoglobin Sodium 136 L Potassium Chloride 96.4 L Carbon Dioxide BUN 66 H Creatinine 3.6 H D Glucose 139 H POC Glucose 110 H Calcium Magnesium Ferritin Direct Bilirubin AST ALT Alkaline Phosphatase Lactate Dehydrogenase Troponin T C-Reactive Protein NT-Pro-B Natriuret Pep Total Protein Albumin Crossmatch 02/06/20 02/06/20 02/06/20 12:19 17:52 23:47 WBC RBC Hgb Hct MCV RDW Plt Count Lymph % (Auto) [place] % (Auto) Lymph # Seg Neutrophils % Seg Neuts % (Manual) Lymphocytes % (Manual) Nucleated RBC % Seg Neutrophils # Man Lymphocytes # (Manual) Monocytes # (Manual) Eosinophils # (Manual) PT INR D-Dimer Heparin Anti-Xa Level ABG pH ABG pO2 ABG HCO3 ABG O2 Saturation ABG Base Excess ABG Hemoglobin Oxyhemoglobin Sodium Potassium Chloride Carbon Dioxide BUN Creatinine Glucose POC Glucose 185 H 185 H 173 H Calcium Magnesium Ferritin Direct Bilirubin AST ALT Alkaline Phosphatase Lactate Dehydrogenase Troponin T C-Reactive Protein NT-Pro-B Natriuret Pep Total Protein Albumin Crossmatch 02/07/20 02/07/20 02/07/20 05:04 11:46 11:52 WBC RBC Hgb Hct MCV RDW Plt Count Lymph % (Auto) [place] % (Auto) Lymph # Seg Neutrophils % Seg Neuts % (Manual) Lymphocytes % (Manual) Nucleated RBC % Seg Neutrophils # Man Lymphocytes # (Manual) Monocytes # (Manual) Eosinophils # (Manual) PT INR D-Dimer Heparin Anti-Xa Level ABG pH ABG pO2 ABG HCO3 ABG O2 Saturation ABG Base Excess ABG Hemoglobin Oxyhemoglobin Sodium Potassium Chloride Carbon Dioxide BUN Creatinine Glucose POC Glucose 145 H 240 H 251 H Calcium Magnesium Ferritin Direct Bilirubin AST ALT Alkaline Phosphatase Lactate Dehydrogenase Troponin T C-Reactive Protein NT-Pro-B Natriuret Pep Total Protein Albumin Crossmatch 02/07/20 02/08/20 02/08/20 18:18 00:22 05:43 WBC RBC Hgb Hct MCV RDW Plt Count Lymph % (Auto) [place] % (Auto) Lymph # Seg Neutrophils % Seg Neuts % (Manual) Lymphocytes % (Manual) Nucleated RBC % Seg Neutrophils # Man Lymphocytes # (Manual) Monocytes # (Manual) Eosinophils # (Manual) PT INR D-Dimer Heparin Anti-Xa Level ABG pH ABG pO2 ABG HCO3 ABG O2 Saturation ABG Base Excess ABG Hemoglobin Oxyhemoglobin Sodium Potassium Chloride Carbon Dioxide BUN Creatinine Glucose POC Glucose 225 H 274 H 307 H Calcium Magnesium Ferritin Direct Bilirubin AST ALT Alkaline Phosphatase Lactate Dehydrogenase Troponin T C-Reactive Protein NT-Pro-B Natriuret Pep Total Protein Albumin Crossmatch 02/08/20 09:40 WBC RBC Hgb Hct MCV RDW Plt Count Lymph % (Auto) [place] % (Auto) Lymph # Seg Neutrophils % Seg Neuts % (Manual) Lymphocytes % (Manual) Nucleated RBC % Seg Neutrophils # Man Lymphocytes # (Manual) Monocytes # (Manual) Eosinophils # (Manual) PT INR D-Dimer Heparin Anti-Xa Level ABG pH 7.167 L* ABG pO2 ABG HCO3 30.3 H ABG O2 Saturation 92.6 L ABG Base Excess ABG Hemoglobin 8.8 L Oxyhemoglobin 90.4 L Sodium Potassium Chloride Carbon Dioxide BUN Creatinine Glucose POC Glucose Calcium Magnesium Ferritin Direct Bilirubin AST ALT Alkaline Phosphatase Lactate Dehydrogenase Troponin T C-Reactive Protein NT-Pro-B Natriuret Pep Total Protein Albumin Crossmatch Allied health notes reviewed: nursing
--- NOTE | 2020-02-08 14:16 | Progress Note ---
Assessment and Plan Cultures: 01/10/2020 blood culture: No growth 01/21/2020 sputum culture: No growth 01/25/2020 blood culture: No growth 02/04/2020 blood culture: no growth A/P: 64/F with #Sepsis with shock: likely due to severe COVID pneumonia. Completed empiric Cefepime x 5 days. Now back on antibiotics. #Severe COVID pneumonia: very elevated inflammatory markers. S/p ivermectin x 1 on 01/21/2020 (off label use). S/p hydroxychloroquine with zinc x 5 days. Markers remain elevated. #Acute hypoxic resp failure: intubated, on the vent. Vent requirements not too high #ESRD on HD: nephrology following. #Thrombocytopenia: resolved #Elevated LFTs: etiology unclear. Bilirubin is normal. Alk phos and transaminases elevated. RUQ US showed no gall bladder, CBD appeared normal. Recs: continue steroids for 7 days followed by taper (started 02/07/2020) meanwhile, will continue empiric abx: Cefepime, Vancomycin + Fluconazole renally adjusted, plan to stop tomorrow D5 if no new fevers and hemodynamic instability continue vent weaning per Dr. Aiken, hopefully can extubate soon. Slava Hannon MD, FACP [facility] ([facility] C: [phone] O: [phone] F: [phone] Subjective Date of service: 02/08/20 Principal diagnosis: Pneumonia Interval history: Remains intubated, on the vent. Failed PSV trial today, it seems she got acidotic and briefly on pressors which were weaned off quickly. D/W RN. Objective - Exam Narrative Exam: Physical Exam (reviewed in chart due to PPE conservation) Constitutional: intubated, on the vent Head, Ears, Nose: normocephalic, atraumatic Eyes: limited due to PPE conservation strategy Neck: intubated Oral: intubated Cardiovascular: limited due to PPE conservation strategy Respiratory: limited due to PPE conservation strategy GI: limited due to PPE conservation strategy Musculoskeletal: limited due to PPE conservation strategy Skin: limited due to PPE conservation strategy Hem/Lymphatic: limited due to PPE conservation strategy Psych: no agitation Neurological: intubated, on the vent, exam limited - Constitutional Vitals: Vital Signs Temp Pulse Resp BP Pulse Ox 98.8 F 96 H 20 125/62 100 02/08/20 04:00 02/08/20 14:00 02/08/20 14:00 02/08/20 14:00 02/08/20 14:00 Temperature -Last 24 Hours Temperature 98.8 F Temperature 98.6 F Temperature 99.2 F Temperature 98.8 F Temperature 98.9 F - Labs CBC & Chem 7: 02/06/20 05:55 02/06/20 05:55 Labs: Abnormal lab results 02/07/20 02/08/20 02/08/20 Range/Units 18:18 00:22 05:43 ABG pH (7.350-7.450) pH Units ABG HCO3 (20.0-26.0) mmol/L ABG O2 Saturation (95.0-99.0) % ABG Hemoglobin (12.0-16.0) gm/dl Oxyhemoglobin (95.0-99.0) % POC Glucose 225 H 274 H 307 H (70-105) 02/08/20 Range/Units 09:40 ABG pH 7.167 L* (7.350-7.450) pH Units ABG HCO3 30.3 H (20.0-26.0) mmol/L ABG O2 Saturation 92.6 L (95.0-99.0) % ABG Hemoglobin 8.8 L (12.0-16.0) gm/dl Oxyhemoglobin 90.4 L (95.0-99.0) % POC Glucose (70-105)
[2020-02-08 20:58] LABS: ABG Base Excess 4.6 mmol/L (-2.0-3.0); ABG HCO3 31.7 mmol/L (20.0-26.0); ABG Methemoglobin 0.5 % (0.0-1.5); ABG Oxygen Saturation 95.6 % (95.0-99.0); ABG PCO2 58.7 mm Hg; ABG PH 7.351 pH Units (7.350-7.450); ABG PO2 79.1 mm Hg (80.0-90.0)
[2020-02-09] MEDS: INSULIN LISPRO 100 UNIT/ML SUB-Q SCH ×4 (01:10→18:25)
[2020-02-09] MEDS: methylPREDNISolone Sod Succinate 40 MG/1 ML INJ IV SCH ×3 (05:28→21:04)
[2020-02-09 05:44] LABS: Hematocrit 26.2 % (30.3-42.9); Hemoglobin 8.3 gm/dl (10.1-14.3); Mean Corpuscular HGB Conc 32 % (30-34); Mean Corpuscular Volume 92 fl (79-97); Platelet Count 507 K/mm3 (140-440); Red Blood Count 2.86 M/mm3 (3.65-5.03)
[2020-02-09 05:56] LABS: Calcium 8.8 mg/dL (8.4-10.2)
--- NOTE | 2020-02-09 09:30 | Progress Note ---
Assessment and Plan Assessment and plan: COVID- 19 infection confirmed. Bilateral pneumonia. Continue antibiotics per ID ARDS. Etiology secondary to above. Acute hypoxemic respiratory failure. Intubated, on ventilator Pulm following Chest pain Stress test neg for ischemia GERD and costochondritis in differential diagnosis Volume overload s/p hemodialysis Nephrology consulted,following Acute on Chronic diastolic CHF exacerbation Secondary to volume overload End stage renal disease on dialysis Nephrology following T2DM (type 2 diabetes mellitus) Continue continue coverage Check hemoglobin A1c Hypertension Continue antihypertensives Hyponatremia Secondary to increased volume--dilutional DVT prophylaxis On heparin and GI prophylaxis 01/11 Covid 19 survey testing sent, nasal swab done 01/10 01/12 Patient has acute resp failure. may need Oxygen on dc. awaiting Covid result 01/13 Still has shortness of breath, awaiting Covid test. 01/14 Pt still dyspneic, await covid testing, Pulse ox 83% 01/16/2020. Patient remains dyspneic. Follow-up COVID testing. 01/17/2020. Patient still requiring large amounts of oxygen. Patient currently with 15 L satting at 95%. Patient with increased inflammatory markers. Follow- up chest x-ray today. 01/18/20--Patient still requiring large amounts of oxygen. Patient currently with 15 L %. Patient with increased inflammatory markers. 01/19/2020 very elevated inflammatory markers- ferritin> 2000, CRP >24, LDH> 600, d-dimer >1000 putting her at high risk for ARDS. Continue hydroxychloroquine 400 mg PO BID for 1 day then 200 mg PO BID for 4 days (total 5 days) with zinc 220 mg PO qday. Continue ceftriaxone. ContinueCOVID isolationprecautions per [facility] protocol. Continue serial Ferritin, LDH, D-Dimer, CRP every 48h 01/20/2020. Inflammatory markers remain elevated with ferritin 1826, LDH 496, CRP 19.3, and d-dimer 2072. Patient requiring high flow nasal cannula 40L, FiO2 80%. Pulmonary following. Continue antibiotics and Plaquenil. Continue COVID [facility]precautions per [facility] protocol. Patient has a high risk mortality and remains guarded. 01/21/2020. Continue antibiotics and Plaquenil. Continue COVID isolationprecautions per [facility] protocol. Maintain sats of 88% and greater. Still on HFNC, O2 weaned to 95% overnight. Sats documented at 98%. Pulmonary following and reports If patient progresses could give bipap a one hour trial to see if there is improvement, repeat ABG, if not would suggest elective intubation 01/22/2020 Patient still critically ill. Yesterday 01/20 had cardiopulmonary arrest so now intubated in ICU. Prognosis guarded. 01/23/2020 still critically ill. No more fever. Continue vent management. 01/24/20 Still critically ill, remain on vent. Continue current management. Will call . 01/25/20 Patient still critically ill. I called Davis Hernandez and gave update. He wants DNR status and says he will request withdrawal of care if patient does not get better after weekend. I discussed with [employer]. 01/26/20 patient still intubated, on vent. She means a DNR order. Discussed with Nurse 01/26 patient still critically ill, vent dependent. 01/27 patient still intubated, on vent. On levophed to keep MAP>65mmhg 01/29/2020 patient still intubated on mechanical ventilation. AC mode ventilation with rate 20, tidal volume 400, FiO2 45% and PEEP 12. patient with no fever. Patient currently with sedation of propofol. Patient received hemodialysis yesterday with approximately 3 L removed. 01/30/2020. Patient still on mechanical ventilation. AC mode ventilation with rate 20, tidal volume 400, FiO2 45% and PEEP 8. Patient with elevated alkaline phosphatase. Check abdominal ultrasound. 01/31/2020. Patient still on mechanical ventilation. PSV mode ventilation with FiO2 50% and PEEP 8 and PS=12. Follow-up abdominal ultrasound for elevated alkaline phosphatase 02/01/2020. Patient currently with PSV FiO2 50%, pressure support 12, PEEP 8. Continue PSV trials per pulmonary. Continue Levophed to maintain MAP greater than 65. Continue propofol for sedation. 02/02/2020. Patient currently on AC mode ventilation rate 20, tidal volume 450, FiO2 50% and PEEP of 6. ABG with pH of 7.31, PCO2 56.4, and PO2 85. Patient confirmed COVID-19 positive on 01/17/2020. Patient with MOSF and guarded prognosis. Follow-up abdominal ultrasound (ordered 3 days ago) for elevated alkaline phosphatase and fevers. 02/03/2020. Patient continues on mechanical ventilation AC mode with rate 20, tidal volume 450 and PEEP of 8. Patient still with temperature 100.5. Patient off sedation but requiring Levophed at 2 mics. Patient with an episode of hypoglycemia yesterday requiring D5 half-normal. Continue to monitor for hypoglycemia. Patient with MOSF and guarded prognosis. Follow-up abdominal ultrasound (ordered 4 days ago) for elevated alkaline phosphatase and fevers. 02/04/2020. Patient continues on mechanical ventilation AC mode with rate 20, tidal volume 450, FiO2 50% and PEEP of 8. Patient continues to have fevers. Patient currently on Levophed. Continue pressors to maintain map greater than 65. Hemoglobin 6.9-1 unit PRBCs ordered. Patient may be able to wean off of Levophed with volume resuscitation of PRBCs. Follow-up abdominal ultrasound (ordered 5 days ago) for elevated alkaline phosphatase and fevers. Patient's prognosis remains guarded. 02/05/2020 patient with covid-19 infection with acute resp failure, intubated, still on vent. Now off Levophed since 02/0302/06/2020 patient with Covid-19 infection. fever yesterday, none today. Continuje current management. Prognosis guarded. 02/07/2020 patient with Covid-19 infection. Still intubated, on vent. Ongoig fever. DNR code status. prognosis remains guarded. 02/08/2020 patient with Covid-19 infection. Still intubated. Ongoing weaning attempts. I called and gave update to , Mr. Davis Medina yesterday. 02/09/2020 patient with Covid-19. No fever X 48 hrs. Repeat covid-19 test negative. I discussed with yesterday 02/08/20. The high probability of a clinically significant, sudden or life threatening deterioration of the [immunologic and respiratory] system(s) required my full and direct attention, intervention and personal management. The aggregate critical care time was [35] minutes. This time is in addition to time spent performing reported procedures but includes the following: [x] Data Review and interpretation [x] Patient assessment and monitoring of vital signs [x] Documentation [x] Medication orders and management History Interval history: Patient initially presented with chest tightness, SOB Now diagnosed with Covid-19 infection,acute resp failure, intubated Hospitalist Physical - Physical exam Narrative exam: GEN: Intubated, HEENT: Normocephalic, atraumatic, Neck: supple, No JVD Lungs: Bilateral crackles, heart;S1 and S2 reg, no murmurs, rubs or gallop Abd:soft, non tender, non distended, normal bowel sounds Ext: No edema, no clubbing, no cyanosis, Neuro: intubated, unresponsive - Constitutional Vitals: Temp Pulse Resp BP Pulse Ox 98.9 F 95 H 24 105/54 100 02/09/20 03:33 02/09/20 08:30 02/09/20 08:30 02/09/20 08:30 02/09/20 08:30 General appearance: Present: no acute distress BREEZY score - Breezy Score Age > 65: (1) Yes Aspirin use within the Past 7 Days: (1) Yes 3 or more CAD Risk Factors: (1) Yes 2 or more Angina events in past 24 hrs: (1) Yes Known CAD with more than 50% Stenosis: (0) No Elevated Cardiac Markers: (0) No ST Deviation Greater than 0.5mm: (0) No BREEZY Score: 4 Results - Labs CBC & Chem 7: 02/09/20 04:48 02/09/20 04:48 Labs: Laboratory Last Values WBC 22.9 K/mm3 (4.5-11.0) H 02/09/20 04:48 RBC 2.86 M/mm3 (3.65-5.03) L 02/09/20 04:48 Hgb 8.3 gm/dl (10.1-14.3) L 02/09/20 04:48 Hct 26.2 % (30.3-42.9) L 02/09/20 04:48 MCV 92 fl (79-97) 02/09/20 04:48 MCH 29 pg (28-32) 02/09/20 04:48 MCHC 32 % (30-34) 02/09/20 04:48 RDW 18.0 % (13.2-15.2) H 02/09/20 04:48 Plt Count 507 K/mm3 (140-440) H 02/09/20 04:48 Lymph % (Auto) Legal Word Processor 02/03/20 03:59 Larue % (Auto) Legal Word Processor 02/03/20 03:59 Eos % (Auto) Legal Word Processor 02/03/20 03:59 Baso % (Auto) Legal Word Processor 02/03/20 03:59 Lymph # Legal Word Processor 02/03/20 03:59 Larue # Legal Word Processor 02/03/20 03:59 Eos # Legal Word Processor 02/03/20 03:59 Baso # Legal Word Processor 02/03/20 03:59 Add Manual Diff Complete 02/05/20 04:35 Total Counted 100 02/05/20 04:35 Seg Neutrophils % Legal Word Processor 02/05/20 04:35 Seg Neuts % (Manual) 96.0 % (40.0-70.0) H 02/05/20 04:35 Band Neutrophils % 0 % 02/05/20 04:35 Lymphocytes % (Manual) 1.0 % (13.4-35.0) L 02/05/20 04:35 Reactive Lymphs % (Man) 0 % 02/05/20 04:35 Monocytes % (Manual) 1.0 % (0.0-7.3) 02/05/20 04:35 Eosinophils % (Manual) 2.0 % (0.0-4.3) 02/05/20 04:35 Basophils % (Manual) 0 % (0.0-1.8) 02/05/20 04:35 Metamyelocytes % 0 % 02/05/20 04:35 Myelocytes % 0 % 02/05/20 04:35 Promyelocytes % 0 % 02/05/20 04:35 Blast Cells % 0 % 02/05/20 04:35 Nucleated RBC % Not Reportable 02/05/20 04:35 Seg Neutrophils # Legal Word Processor 02/03/20 03:59 Seg Neutrophils # Man 23.4 K/mm3 (1.8-7.7) H 02/05/20 04:35 Band Neutrophils # 0.0 K/mm3 02/05/20 04:35 Lymphocytes # (Manual) 0.2 K/mm3 (1.2-5.4) L 02/05/20 04:35 Abs React Lymphs (Man) 0.0 K/mm3 02/05/20 04:35 Monocytes # (Manual) 0.2 K/mm3 (0.0-0.8) 02/05/20 04:35 Eosinophils # (Manual) 0.5 K/mm3 (0.0-0.4) H 02/05/20 04:35 Basophils # (Manual) 0.0 K/mm3 (0.0-0.1) 02/05/20 04:35 Metamyelocytes # 0.0 K/mm3 02/05/20 04:35 Myelocytes # 0.0 K/mm3 02/05/20 04:35 Promyelocytes # 0.0 K/mm3 02/05/20 04:35 Blast Cells # 0.0 K/mm3 02/05/20 04:35 WBC Morphology Not Reportable 02/05/20 04:35 Hypersegmented Neuts Not Reportable 02/05/20 04:35 Hyposegmented Neuts Not Reportable 02/05/20 04:35 Hypogranular Neuts Not Reportable 02/05/20 04:35 Smudge Cells Not Reportable 02/05/20 04:35 Toxic Granulation Not Reportable 02/05/20 04:35 Toxic Vacuolation Not Reportable 02/05/20 04:35 Dohle Bodies Not Reportable 02/05/20 04:35 Pelger-Huet Anomaly Not Reportable 02/05/20 04:35 Armando Rods Not Reportable 02/05/20 04:35 Platelet Estimate Consistent w auto 02/05/20 04:35 Clumped Platelets Not Reportable 02/05/20 04:35 Plt Clumps, EDTA Not Reportable 02/05/20 04:35 Large Platelets Not Reportable 02/05/20 04:35 Giant Platelets Not Reportable 02/05/20 04:35 Platelet Satelliting Not Reportable 02/05/20 04:35 Plt Morphology Comment Not Reportable 02/05/20 04:35 RBC Morphology Not Reportable 02/05/20 04:35 Dimorphic RBCs Not Reportable 02/05/20 04:35 Polychromasia Not Reportable 02/05/20 04:35 Hypochromasia Rare 02/05/20 04:35 Poikilocytosis Not Reportable 02/05/20 04:35 Anisocytosis Few 02/05/20 04:35 Microcytosis Not Reportable 02/05/20 04:35 Macrocytosis Rare 02/05/20 04:35 Spherocytes Not Reportable 02/05/20 04:35 Pappenheimer Bodies Not Reportable 02/05/20 04:35 Sickle Cells Not Reportable 02/05/20 04:35 Target Cells Not Reportable 02/05/20 04:35 Tear Drop Cells Not Reportable 02/05/20 04:35 Ovalocytes Not Reportable 02/05/20 04:35 Helmet Cells Not Reportable 02/05/20 04:35 Vu-[place] Bodies Not Reportable 02/05/20 04:35 T[place]an Rings Not Reportable 02/05/20 04:35 [place] Cells Not Reportable 02/05/20 04:35 Bite Cells Not Reportable 02/05/20 04:35 Crenated Cell Not Reportable 02/05/20 04:35 Elliptocytes Not Reportable 02/05/20 04:35 Acanthocytes (Spur) Not Reportable 02/05/20 04:35 Rouleaux Not Reportable 02/05/20 04:35 Hemoglobin C Crystals Not Reportable 02/05/20 04:35 Schistocytes Not Reportable 02/05/20 04:35 Malaria parasites Not Reportable 02/05/20 04:35 Ney Bodies Not Reportable 02/05/20 04:35 Hem Pathologist Commnt No 02/05/20 04:35 PT 15.6 Sec. (12.2-14.9) H 01/09/20 12:55 INR 1.22 (0.87-1.13) H 01/09/20 12:55 APTT 31.5 Sec. (24.2-36.6) 01/09/20 12:55 D-Dimer 2896.73 ng/mlDDU (0-234) H 02/05/20 13:55 Heparin Anti-Xa Level 0.77 U.I./ml (0.3-0.7) H 02/02/20 05:44 ABG pH 7.351 pH Units (7.350-7.450) 02/08/20 20:45 ABG pCO2 58.7 mm Hg 02/08/20 20:45 ABG pO2 79.1 mm Hg (80.0-90.0) L 02/08/20 20:45 ABG HCO3 31.7 mmol/L (20.0-26.0) H 02/08/20 20:45 ABG O2 Saturation 95.6 % (95.0-99.0) 02/08/20 20:45 ABG O2 Content 17.0 (0.0-44) 02/08/20 20:45 ABG Base Excess 4.6 mmol/L (-2.0-3.0) H 02/08/20 20:45 ABG Hemoglobin 12.9 gm/dl (12.0-16.0) 02/08/20 20:45 ABG Carboxyhemoglobin 1.7 % (0.0-5.0) 02/08/20 20:45 ABG Methemoglobin 0.5 % (0.0-1.5) 02/08/20 20:45 Oxyhemoglobin 93.5 % (95.0-99.0) L 02/08/20 20:45 FiO2 40 % 02/08/20 20:45 Sodium 138 mmol/L (137-145) 02/09/20 04:48 Potassium 3.9 mmol/L (3.6-5.0) 02/09/20 04:48 Chloride 93.9 mmol/L (98-107) L 02/09/20 04:48 Carbon Dioxide 30 mmol/L (22-30) 02/09/20 04:48 Anion Gap 18 mmol/L 02/09/20 04:48 BUN 59 mg/dL (7-17) H 02/09/20 04:48 Creatinine 2.5 mg/dL (0.7-1.2) H 02/09/20 04:48 Estimated GFR 23 ml/min 02/09/20 04:48 BUN/Creatinine Ratio 24 % 02/09/20 04:48 Glucose 309 mg/dL (65-100) H 02/09/20 04:48 POC Glucose 356 (70-105) H 02/09/20 05:14 Hemoglobin A1c 5.0 % (4-6) 01/10/20 06:54 Calcium 8.8 mg/dL (8.4-10.2) 02/09/20 04:48 Phosphorus 3.30 mg/dL (2.5-4.5) 01/12/20 16:01 Magnesium 2.00 mg/dL (1.7-2.3) 01/13/20 06:11 Ferritin > 2000.0 ng/mL (13.0-400.0) H 02/05/20 13:55 Total Bilirubin 0.50 mg/dL (0.1-1.2) 02/02/20 05:44 Direct Bilirubin 0.3 mg/dL (0-0.2) H 02/02/20 05:44 Indirect Bilirubin 0.2 mg/dL 02/02/20 05:44 AST 179 units/L (5-40) H 02/02/20 05:44 ALT 106 units/L (7-56) H 02/02/20 05:44 Alkaline Phosphatase 557 units/L (35-129) H 02/02/20 05:44 Lactate Dehydrogenase 311 units/L (91-180) H 02/05/20 13:55 Troponin T 0.315 ng/mL (0.00-0.029) H* 01/10/20 06:54 C-Reactive Protein 17.30 mg/dL (0.00-1.30) H 02/05/20 13:55 NT-Pro-B Natriuret Pep 18774 pg/mL (0-900) H 01/09/20 12:55 Total Protein 6.1 g/dL (6.3-8.2) L 02/02/20 05:44 Albumin 2.3 g/dL (3.9-5) L 02/02/20 05:44 Albumin/Globulin Ratio 0.6 % 02/02/20 05:44 Triglycerides 56 mg/dL (2-149) 01/30/20 04:04 Cholesterol 123 mg/dL (50-199) 01/09/20 12:55 LDL Cholesterol Direct 66 mg/dL (50-130) 01/09/20 12:55 HDL Cholesterol 47 mg/dL (40-59) 01/09/20 12:55 Cholesterol/HDL Ratio 2.61 % 01/09/20 12:55 Random Vancomycin 23.9 ug/mL (0-40.0) 02/08/20 04:56 Coronavirus (PCR) Negative (Negative) 02/08/20 10:06 Hepatitis A IgM Ab Non-reactive (NonReactive) 01/21/20 23:40 Hep Bs Antigen Non-reactive (Negative) 01/21/20 23:40 Hep B Core IgM Ab Non-reactive (NonReactive) 01/21/20 23:40 Hepatitis C Antibody Non-reactive (NonReactive) 01/21/20 23:40 Miscellaneous Test See scanned result 01/11/20 Unknown Miscellaneous Test See scanned result 01/11/20 Unknown Blood Type O POSITIVE 02/04/20 10:47 Antibody Screen Negative 02/04/20 10:47 Crossmatch See Detail 02/04/20 10:47 Microbiology: Microbiology 02/04/20 Unknown Peripheral/Venous Blood Culture - Preliminary NO GROWTH AFTER 4 DAYS 02/04/20 Unknown Peripheral/Venous Blood Culture - Preliminary NO GROWTH AFTER 4 DAYS Pleitez/IV: Voiding Method Indwelling Catheter IV Catheter Type [Left Chest] Infusaport IV Catheter Type [Right Peripheral IV External Jugular] IV Catheter Type [Left INT / Saline Lock External Jugular] IV Catheter Type [Left Upper AV Graft arm] Active Medications - Current Medications Current Medications: Generic Name Dose Route Start Last Admin Trade Name Freq PRN Reason Stop Dose Admin Acetaminophen 650 mg 01/09/20 16:33 02/05/20 05:58 Tylenol PO 650 mg Q4H PRN Administration Pain MILD(1-3)/Fever >100.5/MEANS Lipase/Protease/Amylase 1 each 01/23/20 14:28 02/07/20 13:[address] 10,500 Unit FEEDTUBE 1 each PRN PRN Administration For Clogged Feeding Tube Atorvastatin Calcium 40 mg 01/09/20 22:00 02/08/20 21:39 Lipitor PO 40 mg QHS PHILLY Administration Dextrose 50 ml 01/23/20 07:26 02/02/20 11:33 D50w (25gm) Syringe IV 50 ml Q30MIN PRN Administration BLOOD GLUCOSE < 70 Dextrose 25 ml 01/24/20 08:58 01/24/20 13:41 D50w (25gm) Syringe IV 25 ml Q4H PRN Administration BG < 80 MG/DL Docusate Sodium 100 mg 01/25/20 22:00 02/08/20 21:40 Colace PO Not Given BID PHILLY Epoetin Helio 20,000 unit 02/04/20 12:00 02/04/20 13:00 Procrit SUB-Q 20,000 unit SILVERIO PHILLY Administration Famotidine 20 mg 01/09/20 22:00 02/08/20 11:11 Pepcid PO 20 mg DAILY PHILLY Administration Heparin Sodium (Porcine) 5,000 unit 02/07/20 10:00 02/08/20 21:49 Heparin SUB-Q 5,000 unit Q12HR PHILLY Administration Norepinephrine 4 mg in 250 mls @ 7.5 mls/hr 01/21/20 18:00 02/08/20 00:44 Levophed Drip 4 Mg/Ns 250 Ml IV 0 mcg/min TITR PHILLY 0 mls/hr Titration Protocol 2 MCG/MIN Propofol 1,000 mg in 100 mls @ 2.265 mls/hr 01/22/20 09:00 01/30/20 14:25 Diprivan 10 Mg/Ml IV 0 mcg/kg/min TITR PHILLY 0 mls/hr Titration Protocol 5 MCG/KG/MIN Sodium Chloride 100 mls @ 999 mls/hr 02/01/20 09:47 Nacl 0.9% IV SILVERIO PRN Hypotension Cefepime HCl 1 gm in 100 mls @ 200 mls/hr 02/04/20 14:00 02/08/20 11:19 Cefepime/Ns 1 Gm/100 Ml IV 200 mls/hr Q24HR PHILLY Administration Protocol Fluconazole 200 mg in 100 mls @ 100 mls/hr 02/04/20 13:00 02/08/20 11:13 Diflucan IV 100 mls/hr Q24HR [facility] Administration Protocol Insulin Human Lispro 0 unit 02/07/20 12:00 02/09/20 05:28 Humalog SUB-Q 5 unit Q6HR [facility] Administration Protocol Lorazepam 2 mg 01/23/20 15:36 Ativan IV Q10MIN PRN Agitation Methylprednisolone Sodium Succinate 40 mg 02/07/20 14:00 02/09/20 05:28 Solu-Medrol IV 40 mg Q8HR PHILLY Administration Ondansetron HCl 4 mg 01/09/20 16:33 01/20/20 10:19 Zofran IV 4 mg Q8H PRN Administration Nausea And Vomiting Simple Syrup 15 ml 01/23/20 14:28 Simple Syrup FEEDTUBE PRN PRN Hypoglycemia Simple Syrup 30 ml 01/23/20 14:28 Simple Syrup FEEDTUBE PRN PRN Hypoglycemia Sodium Bicarbonate 325 mg 01/23/20 14:28 Sodium Bicarbonate FEEDTUBE PRN PRN For Clogged Feeding Tube Sodium Chloride 10 ml 01/09/20 22:00 02/08/20 21:39 Sodium Chloride Flush Syringe 10 Ml IV 10 ml BID PHILLY Administration Sodium Chloride 10 ml 01/09/20 16:33 Sodium Chloride Flush Syringe 10 Ml IV PRN PRN LINE FLUSH Valsartan 80 mg 01/10/20 10:00 02/08/20 11:11 Diovan PO 80 mg DAILY PHILLY Administration Nutrition/Malnutrition Assess - Dietary Evaluation Nutrition/Malnutrition Findings: Nutrition Notes Start: 01/17/20 13:49 Freq: Status: Active Protocol: Document 02/06/20 14:10 LM (Rec: 02/07/20 14:12 LM [email or web address]) Nutrition Notes Initial or Follow up Reassessment Current Diagnosis CKD (stage V CKD),Diabetes, Hypertension,Heart Failure, Respiratory Failure Other Pertinent Diagnosis on HD, Bilat pneu, COVID-19 (+ ) Current Diet Nepro 1.8 at 35ml/hr Labs/Tests Na 136 Pertinent Medications Reviewed Height 5 ft 6 in Weight 78 kg [place] Body Weight (kg) 59.09 BMI 27.7 Subjective/Other Information Per RN notes TF is tolerating TF at goal. Percent of energy/protein needs met: 94%/75% Burn Absent Trauma Absent Current % PO Negligible Minimum of two criteria Yes Fluid Accumulation Mild (non-severe) Reduced Jewel Sawyer Strength Measurably Reduced (severe) #1 Nutrition Diagnosis Malnutrition Diagnosis Progress(for reassessment Continues documentation) Is patient on ventilator? No Calculation Used for Recommendations [place] Additional Notes Protein: 91-151g (1.2-2g/kg) Fluid: per MD Nutrition Intervention Change Diet Order: Continue TF Nutrition Support: Nepro 1.8 at 35ml/hr (goal rate) Flush 50ml q4hr for hyponatremia Flush 150ml q4h once hyponatremia resolves Kcal 1,512 Protein (gm) 68 Fluid (mL) 611 Goal #1 TF tolerance Goal #2 Meet at least 75% of energy and protein needs via TF Anticipated Discharge Needs: unable to determine at this time Follow-Up By: 02/12/20 Additional Comments F/U for TF tolerance, Na lab
[2020-02-09] MEDS: HEPARIN 5,000 UNIT/1 ML VIAL SUB-Q SCH ×2 (09:41→21:05)
[2020-02-09] MEDS: FLUCONAZOLE 200 MG 200 MG/100 ML BAG IV SCH (09:41)
[2020-02-09] MEDS: NORepinephrine/NS 4 MG-250 ML 4 MG/250 ML BAG IV SCH (09:42)
[2020-02-09] MEDS: CEFEPIME/NS 1 GM/100 ML 1 GM/100 ML BAG IV SCH (09:42)
[2020-02-09] MEDS: FAMOTIDINE 20 MG TAB PO SCH (09:42)
[2020-02-09] MEDS: DOCUSATE SODIUM 100 MG/10 ML ORAL LIQD PO SCH ×2 (10:04→21:04)
[2020-02-09] MEDS: VALSARTAN 40 MG TAB PO SCH (11:00)
--- NOTE | 2020-02-09 11:08 | Progress Note ---
Assessment and Plan 64 y/o female with COVID positive, viral pneumonia with some pulmonary vascular congestion superimposed. 1. CHanges in vent helped. Repeat ABG and ABG this am adequate. Failed PSV, please continue to try daily. Still a candidate for LTACH with trach and peg. 2. HD per renal. Done yesterday with volume removal. Likely again on . 3. Changed back to prophylactic dosing for VTE as not confirmed the presence of VTE 4. Will speak with CM about trach and peg requirements for LTACH. If needs to be done here will consult surgery on Tuesday. WIll also ask ID if isolation still has to continue with negative COVID testing. CCT 31 minutes. Subjective Date of service: 02/09/20 Principal diagnosis: Pneumonia Interval history: No acute events. Failed PSV this am. Became tachypnic per RT. COVID negative now and afebrile x 48 hours. Objective Vital Signs - 12hr 02/08/20 02/08/20 02/08/20 23:15 23:31 23:45 Temperature Pulse Rate 100 H 100 H 100 H Pulse Rate [ From Monitor] Pulse Rate [ Left Radial] Respiratory 22 20 24 Rate Blood Pressure 113/54 113/54 113/54 O2 Sat by Pulse 100 100 100 Oximetry 02/09/20 02/09/20 02/09/20 00:00 00:01 00:15 Temperature 98.8 F Pulse Rate 102 H 102 H 101 H Pulse Rate [ 102 H From Monitor] Pulse Rate [ 102 H Left Radial] Respiratory 20 26 H 23 Rate Blood Pressure 113/54 113/54 O2 Sat by Pulse 100 100 Oximetry 02/09/20 02/09/20 02/09/20 00:31 00:45 01:01 Temperature Pulse Rate 101 H 101 H 101 H Pulse Rate [ From Monitor] Pulse Rate [ Left Radial] Respiratory 25 H 25 H 23 Rate Blood Pressure 113/54 113/54 113/54 O2 Sat by Pulse 100 100 100 Oximetry 02/09/20 02/09/20 02/09/20 01:08 01:15 01:31 Temperature Pulse Rate 100 H 98 H 100 H Pulse Rate [ From Monitor] Pulse Rate [ Left Radial] Respiratory 27 H 22 Rate Blood Pressure 107/48 112/49 111/43 O2 Sat by Pulse 100 100 100 Oximetry 04/25/20 04/25/20 04/25/20 01:45 02:01 02:15 Temperature Pulse Rate 100 H 98 H 97 H Pulse Rate [ From Monitor] Pulse Rate [ Left Radial] Respiratory 23 26 H 16 Rate Blood Pressure 105/51 105/44 104/51 O2 Sat by Pulse 100 100 100 Oximetry 02/09/20 02/09/20 02/09/20 02:30 02:45 03:01 Temperature Pulse Rate 96 H 96 H 94 H Pulse Rate [ From Monitor] Pulse Rate [ Left Radial] Respiratory 24 15 26 H Rate Blood Pressure 100/52 105/53 102/45 O2 Sat by Pulse 100 100 100 Oximetry 02/09/20 02/09/20 02/09/20 03:15 03:31 03:33 Temperature 98.9 F Pulse Rate 99 H 97 H Pulse Rate [ From Monitor] Pulse Rate [ Left Radial] Respiratory 25 H 24 Rate Blood Pressure 116/47 105/51 O2 Sat by Pulse 100 100 Oximetry 02/09/20 02/09/20 02/09/20 03:45 04:01 04:15 Temperature Pulse Rate 97 H 93 H 96 H Pulse Rate [ From Monitor] Pulse Rate [ Left Radial] Respiratory 22 27 H 24 Rate Blood Pressure 108/56 90/46 103/56 O2 Sat by Pulse 100 100 100 Oximetry 02/09/20 02/09/20 02/09/20 04:30 04:45 05:01 Temperature Pulse Rate 94 H 91 H 96 H Pulse Rate [ From Monitor] Pulse Rate [ Left Radial] Respiratory 25 H 26 H 24 Rate Blood Pressure 98/53 98/53 119/62 O2 Sat by Pulse 100 100 100 Oximetry 02/09/20 02/09/20 02/09/20 05:15 05:21 05:31 Temperature Pulse Rate 97 H 97 H 96 H Pulse Rate [ From Monitor] Pulse Rate [ Left Radial] Respiratory 24 21 Rate Blood Pressure 109/60 109/60 107/52 O2 Sat by Pulse 100 100 100 Oximetry 02/09/20 02/09/20 02/09/20 05:45 06:00 06:15 Temperature Pulse Rate 95 H 95 H 91 H Pulse Rate [ From Monitor] Pulse Rate [ Left Radial] Respiratory 22 30 H 26 H Rate Blood Pressure 116/56 99/55 99/55 O2 Sat by Pulse 100 100 100 Oximetry 02/09/20 02/09/20 02/09/20 06:30 06:45 07:00 Temperature Pulse Rate 96 H 96 H 98 H Pulse Rate [ From Monitor] Pulse Rate [ Left Radial] Respiratory 20 20 22 Rate Blood Pressure 114/57 118/58 116/59 O2 Sat by Pulse 100 100 100 Oximetry 02/09/20 02/09/20 02/09/20 07:15 07:30 07:41 Temperature Pulse Rate 99 H 100 H 96 H Pulse Rate [ From Monitor] Pulse Rate [ Left Radial] Respiratory 22 20 Rate Blood Pressure 120/59 128/60 128/60 O2 Sat by Pulse 100 100 100 Oximetry 02/09/20 02/09/20 02/09/20 07:45 08:00 08:15 Temperature 98.8 F Pulse Rate 97 H 97 H 97 H Pulse Rate [ 88 From Monitor] Pulse Rate [ Left Radial] Respiratory 23 17 21 Rate Blood Pressure 120/64 115/56 114/55 O2 Sat by Pulse 100 100 100 Oximetry 02/09/20 02/09/20 02/09/20 08:30 08:45 09:00 Temperature Pulse Rate 95 H 91 H 98 H Pulse Rate [ From Monitor] Pulse Rate [ Left Radial] Respiratory 24 25 H 20 Rate Blood Pressure 105/54 105/54 116/60 O2 Sat by Pulse 100 100 100 Oximetry 02/09/20 02/09/20 02/09/20 09:15 09:30 09:45 Temperature Pulse Rate 93 H 91 H 91 H Pulse Rate [ From Monitor] Pulse Rate [ Left Radial] Respiratory 24 22 24 Rate Blood Pressure 80/45 78/39 82/44 O2 Sat by Pulse 100 100 100 Oximetry 02/09/20 02/09/20 02/09/20 10:00 10:15 10:31 Temperature Pulse Rate 103 H 106 H 106 H Pulse Rate [ From Monitor] Pulse Rate [ Left Radial] Respiratory 21 18 22 Rate Blood Pressure 168/77 167/80 158/77 O2 Sat by Pulse 100 100 100 Oximetry Constitutional: other (orally intubated, not sedated currently on vent. on AC 450 50) Eyes: non-icteric ENT: oropharynx moist Neck: supple Effort: normal Ascultation: Bilateral: rales Cardiovascular: regular rate and rhythm (no mrg) Gastrointestinal: normoactive bowel sounds, soft, non-tender, non-distended Integumentary: normal Extremities: no cyanosis, no edema, pink and warm Neurologic: unable to assess Psychiatric: mood appropriate, affect normal CBC and BMP: 02/09/20 04:48 02/09/20 04:48 ABG, PT/INR, D-dimer: ABG ABG pH 7.351 pH Units (7.350-7.450) 02/08/20 20:45 ABG pCO2 58.7 mm Hg 02/08/20 20:45 ABG pO2 79.1 mm Hg (80.0-90.0) L 02/08/20 20:45 ABG O2 Saturation 95.6 % (95.0-99.0) 02/08/20 20:45 PT/INR, D-dimer PT 15.6 Sec. (12.2-14.9) H 01/09/20 12:55 INR 1.22 (0.87-1.13) H 01/09/20 12:55 D-Dimer 2896.73 ng/mlDDU (0-234) H 02/05/20 13:55 Abnormal lab findings: Abnormal Labs 01/09/20 01/09/20 01/09/20 12:55 12:55 12:55 WBC 4.4 L RBC 3.44 L Hgb Hct MCV RDW 17.0 H Plt Count Lymph % (Auto) 6.8 L [place] % (Auto) 13.6 H Lymph # 0.3 L Seg Neutrophils % 79.0 H Seg Neuts % (Manual) Lymphocytes % (Manual) Nucleated RBC % Seg Neutrophils # Man Lymphocytes # (Manual) Monocytes # (Manual) Eosinophils # (Manual) PT 15.6 H INR 1.22 H D-Dimer Heparin Anti-Xa Level ABG pH ABG pO2 ABG HCO3 ABG O2 Saturation ABG Base Excess ABG Hemoglobin Oxyhemoglobin Sodium 130 L Potassium Chloride 88.9 L Carbon Dioxide 20 L BUN 41 H Creatinine 7.6 H Glucose 115 H POC Glucose Calcium Magnesium Ferritin Direct Bilirubin AST ALT Alkaline Phosphatase 153 H Lactate Dehydrogenase Troponin T 0.382 H* C-Reactive Protein NT-Pro-B Natriuret Pep 63516 H Total Protein Albumin 3.2 L Crossmatch 01/09/20 01/10/20 01/10/20 20:14 00:16 06:54 WBC 3.3 L RBC 3.00 L Hgb 9.2 L Hct 27.8 L MCV RDW 17.2 H Plt Count Lymph % (Auto) 8.9 L [place] % (Auto) 11.5 H Lymph # 0.3 L Seg Neutrophils % 79.1 H Seg Neuts % (Manual) Lymphocytes % (Manual) Nucleated RBC % Seg Neutrophils # Man Lymphocytes # (Manual) Monocytes # (Manual) Eosinophils # (Manual) PT INR D-Dimer Heparin Anti-Xa Level ABG pH ABG pO2 ABG HCO3 ABG O2 Saturation ABG Base Excess ABG Hemoglobin Oxyhemoglobin Sodium Potassium Chloride Carbon Dioxide BUN Creatinine Glucose POC Glucose Calcium Magnesium Ferritin Direct Bilirubin AST ALT Alkaline Phosphatase Lactate Dehydrogenase Troponin T 0.349 H* 0.328 H* C-Reactive Protein NT-Pro-B Natriuret Pep Total Protein Albumin Crossmatch 01/10/20 01/10/20 01/11/20 06:54 06:54 16:45 WBC RBC Hgb Hct MCV RDW Plt Count Lymph % (Auto) [place] % (Auto) Lymph # Seg Neutrophils % Seg Neuts % (Manual) Lymphocytes % (Manual) Nucleated RBC % Seg Neutrophils # Man Lymphocytes # (Manual) Monocytes # (Manual) Eosinophils # (Manual) PT INR D-Dimer Heparin Anti-Xa Level ABG pH ABG pO2 ABG HCO3 ABG O2 Saturation ABG Base Excess ABG Hemoglobin Oxyhemoglobin Sodium 133 L Potassium Chloride 90.6 L Carbon Dioxide BUN 50 H Creatinine 8.4 H Glucose 101 H POC Glucose 106 H Calcium 8.1 L Magnesium Ferritin Direct Bilirubin AST ALT Alkaline Phosphatase 148 H Lactate Dehydrogenase Troponin T 0.315 H* C-Reactive Protein NT-Pro-B Natriuret Pep Total Protein 5.4 L Albumin 2.7 L Crossmatch 01/12/20 01/13/20 01/13/20 16:01 06:11 06:11 WBC 3.1 L RBC 3.25 L Hgb 9.8 L Hct MCV RDW 17.2 H Plt Count 136 L Lymph % (Auto) [place] % (Auto) Lymph # Seg Neutrophils % Seg Neuts % (Manual) Lymphocytes % (Manual) Nucleated RBC % Seg Neutrophils # Man Lymphocytes # (Manual) Monocytes # (Manual) Eosinophils # (Manual) PT INR D-Dimer Heparin Anti-Xa Level ABG pH ABG pO2 ABG HCO3 ABG O2 Saturation ABG Base Excess ABG Hemoglobin Oxyhemoglobin Sodium 135 L Potassium Chloride 93.4 L Carbon Dioxide BUN 19 H Creatinine 4.5 H Glucose 120 H POC Glucose Calcium 7.8 L Magnesium 1.40 L Ferritin Direct Bilirubin AST ALT Alkaline Phosphatase Lactate Dehydrogenase Troponin T C-Reactive Protein NT-Pro-B Natriuret Pep Total Protein Albumin Crossmatch 01/16/20 01/16/20 01/16/20 08:35 11:49 14:11 WBC RBC Hgb Hct MCV RDW Plt Count Lymph % (Auto) [place] % (Auto) Lymph # Seg Neutrophils % Seg Neuts % (Manual) Lymphocytes % (Manual) Nucleated RBC % Seg Neutrophils # Man Lymphocytes # (Manual) Monocytes # (Manual) Eosinophils # (Manual) PT INR D-Dimer Heparin Anti-Xa Level ABG pH ABG pO2 48.4 L ABG HCO3 30.5 H ABG O2 Saturation 81.9 L ABG Base Excess 4.6 H ABG Hemoglobin 10.5 L Oxyhemoglobin 80.1 L Sodium Potassium Chloride Carbon Dioxide BUN Creatinine Glucose POC Glucose 126 H 119 H Calcium Magnesium Ferritin Direct Bilirubin AST ALT Alkaline Phosphatase Lactate Dehydrogenase Troponin T C-Reactive Protein NT-Pro-B Natriuret Pep Total Protein Albumin Crossmatch 01/16/20 01/16/20 01/16/20 15:38 15:38 15:38 WBC RBC Hgb Hct MCV RDW Plt Count Lymph % (Auto) [place] % (Auto) Lymph # Seg Neutrophils % Seg Neuts % (Manual) Lymphocytes % (Manual) Nucleated RBC % Seg Neutrophils # Man Lymphocytes # (Manual) Monocytes # (Manual) Eosinophils # (Manual) PT INR D-Dimer 1104.64 H Heparin Anti-Xa Level ABG pH ABG pO2 ABG HCO3 ABG O2 Saturation ABG Base Excess ABG Hemoglobin Oxyhemoglobin Sodium Potassium Chloride Carbon Dioxide BUN Creatinine Glucose POC Glucose Calcium Magnesium Ferritin > 2000.0 H Direct Bilirubin AST ALT Alkaline Phosphatase Lactate Dehydrogenase 690 H Troponin T C-Reactive Protein 24.10 H NT-Pro-B Natriuret Pep Total Protein Albumin Crossmatch 01/16/20 01/18/20 01/18/20 18:11 06:25 06:25 WBC RBC 3.15 L Hgb 9.4 L Hct 29.4 L MCV RDW 17.5 H Plt Count 135 L Lymph % (Auto) 3.8 L [place] % (Auto) Lymph # 0.2 L Seg Neutrophils % 88.8 H Seg Neuts % (Manual) Lymphocytes % (Manual) Nucleated RBC % Seg Neutrophils # Man Lymphocytes # (Manual) Monocytes # (Manual) Eosinophils # (Manual) PT INR D-Dimer Heparin Anti-Xa Level ABG pH ABG pO2 ABG HCO3 ABG O2 Saturation ABG Base Excess ABG Hemoglobin Oxyhemoglobin Sodium Potassium Chloride 96.8 L Carbon Dioxide BUN 26 H Creatinine 4.2 H Glucose 115 H POC Glucose 130 H Calcium 8.2 L Magnesium Ferritin Direct Bilirubin AST ALT Alkaline Phosphatase Lactate Dehydrogenase 537 H Troponin T C-Reactive Protein 17.10 H NT-Pro-B Natriuret Pep Total Protein Albumin Crossmatch 01/18/20 01/18/20 01/18/20 06:25 06:25 12:15 WBC RBC Hgb Hct MCV RDW Plt Count Lymph % (Auto) [place] % (Auto) Lymph # Seg Neutrophils % Seg Neuts % (Manual) Lymphocytes % (Manual) Nucleated RBC % Seg Neutrophils # Man Lymphocytes # (Manual) Monocytes # (Manual) Eosinophils # (Manual) PT INR D-Dimer 938.03 H Heparin Anti-Xa Level ABG pH ABG pO2 66.5 L ABG HCO3 30.1 H ABG O2 Saturation 93.2 L ABG Base Excess 4.6 H ABG Hemoglobin 10.0 L Oxyhemoglobin 91.3 L Sodium Potassium Chloride Carbon Dioxide BUN Creatinine Glucose POC Glucose Calcium Magnesium Ferritin 3105.0 H Direct Bilirubin AST ALT Alkaline Phosphatase Lactate Dehydrogenase Troponin T C-Reactive Protein NT-Pro-B Natriuret Pep Total Protein Albumin Crossmatch 01/20/20 01/20/20 01/20/20 07:37 07:37 07:37 WBC RBC Hgb Hct MCV RDW Plt Count Lymph % (Auto) [place] % (Auto) Lymph # Seg Neutrophils % Seg Neuts % (Manual) Lymphocytes % (Manual) Nucleated RBC % Seg Neutrophils # Man Lymphocytes # (Manual) Monocytes # (Manual) Eosinophils # (Manual) PT INR D-Dimer 2072.25 H Heparin Anti-Xa Level ABG pH ABG pO2 ABG HCO3 ABG O2 Saturation ABG Base Excess ABG Hemoglobin Oxyhemoglobin Sodium Potassium Chloride Carbon Dioxide BUN Creatinine Glucose POC Glucose Calcium Magnesium Ferritin 1826.0 H Direct Bilirubin AST ALT Alkaline Phosphatase Lactate Dehydrogenase 496 H Troponin T C-Reactive Protein 19.30 H NT-Pro-B Natriuret Pep Total Protein Albumin Crossmatch 01/20/20 01/21/20 01/21/20 17:30 03:59 17:35 WBC RBC Hgb Hct MCV RDW Plt Count Lymph % (Auto) [place] % (Auto) Lymph # Seg Neutrophils % Seg Neuts % (Manual) Lymphocytes % (Manual) Nucleated RBC % Seg Neutrophils # Man Lymphocytes # (Manual) Monocytes # (Manual) Eosinophils # (Manual) PT INR D-Dimer Heparin Anti-Xa Level ABG pH ABG pO2 61.1 L 67.4 L ABG HCO3 29.9 H 26.2 H ABG O2 Saturation 91.7 L 93.4 L ABG Base Excess 4.9 H ABG Hemoglobin 9.0 L 9.1 L Oxyhemoglobin 89.5 L 91.1 L Sodium 136 L Potassium Chloride Carbon Dioxide BUN 36 H Creatinine 4.9 H Glucose POC Glucose Calcium Magnesium Ferritin Direct Bilirubin AST ALT Alkaline Phosphatase Lactate Dehydrogenase Troponin T C-Reactive Protein NT-Pro-B Natriuret Pep Total Protein Albumin Crossmatch 01/21/20 01/22/20 01/22/20 Unknown 03:41 03:41 WBC RBC Hgb Hct MCV RDW Plt Count Lymph % (Auto) [place] % (Auto) Lymph # Seg Neutrophils % Seg Neuts % (Manual) Lymphocytes % (Manual) Nucleated RBC % Seg Neutrophils # Man Lymphocytes # (Manual) Monocytes # (Manual) Eosinophils # (Manual) PT INR D-Dimer Heparin Anti-Xa Level ABG pH 7.465 H ABG pO2 48.9 L ABG HCO3 26.6 H ABG O2 Saturation 85.7 L ABG Base Excess ABG Hemoglobin 10.4 L Oxyhemoglobin 83.5 L Sodium Potassium Chloride Carbon Dioxide BUN Creatinine Glucose POC Glucose Calcium Magnesium Ferritin 6071.0 H Direct Bilirubin AST ALT Alkaline Phosphatase Lactate Dehydrogenase 963 H Troponin T C-Reactive Protein 30.00 H NT-Pro-B Natriuret Pep Total Protein Albumin Crossmatch 01/22/20 01/22/20 01/22/20 03:41 07:47 11:20 WBC RBC Hgb Hct MCV RDW Plt Count Lymph % (Auto) [place] % (Auto) Lymph # Seg Neutrophils % Seg Neuts % (Manual) Lymphocytes % (Manual) Nucleated RBC % Seg Neutrophils # Man Lymphocytes # (Manual) Monocytes # (Manual) Eosinophils # (Manual) PT INR D-Dimer > 09124 H Heparin Anti-Xa Level ABG pH ABG pO2 66.7 L ABG HCO3 28.7 H ABG O2 Saturation 91.9 L ABG Base Excess ABG Hemoglobin 9.1 L Oxyhemoglobin 89.5 L Sodium Potassium Chloride 94.3 L Carbon Dioxide BUN 53 H Creatinine 6.5 H Glucose POC Glucose Calcium Magnesium Ferritin Direct Bilirubin AST ALT Alkaline Phosphatase Lactate Dehydrogenase Troponin T C-Reactive Protein NT-Pro-B Natriuret Pep Total Protein Albumin Crossmatch 01/22/20 01/22/20 01/23/20 11:49 Unknown 04:55 WBC 15.1 H RBC 3.05 L Hgb 8.8 L Hct 28.3 L MCV RDW 17.8 H Plt Count 125 L Lymph % (Auto) [place] % (Auto) Lymph # Seg Neutrophils % Seg Neuts % (Manual) Lymphocytes % (Manual) Nucleated RBC % Seg Neutrophils # Man Lymphocytes # (Manual) Monocytes # (Manual) Eosinophils # (Manual) PT INR D-Dimer Heparin Anti-Xa Level ABG pH 7.340 L ABG pO2 77.7 L 136.3 H ABG HCO3 27.6 H 28.8 H ABG O2 Saturation ABG Base Excess ABG Hemoglobin 9.3 L 10.9 L Oxyhemoglobin 94.2 L Sodium Potassium Chloride Carbon Dioxide BUN Creatinine Glucose POC Glucose Calcium Magnesium Ferritin Direct Bilirubin AST ALT Alkaline Phosphatase Lactate Dehydrogenase Troponin T C-Reactive Protein NT-Pro-B Natriuret Pep Total Protein Albumin Crossmatch 01/23/20 01/23/20 01/23/20 06:23 07:07 12:23 WBC RBC Hgb Hct MCV RDW Plt Count Lymph % (Auto) [place] % (Auto) Lymph # Seg Neutrophils % Seg Neuts % (Manual) Lymphocytes % (Manual) Nucleated RBC % Seg Neutrophils # Man Lymphocytes # (Manual) Monocytes # (Manual) Eosinophils # (Manual) PT INR D-Dimer Heparin Anti-Xa Level ABG pH ABG pO2 ABG HCO3 ABG O2 Saturation ABG Base Excess ABG Hemoglobin Oxyhemoglobin Sodium Potassium Chloride Carbon Dioxide BUN Creatinine Glucose POC Glucose 57 L 127 H 131 H Calcium Magnesium Ferritin Direct Bilirubin AST ALT Alkaline Phosphatase Lactate Dehydrogenase Troponin T C-Reactive Protein NT-Pro-B Natriuret Pep Total Protein Albumin Crossmatch 01/23/20 01/23/20 01/24/20 Unknown Unknown 04:00 WBC 16.2 H RBC 3.08 L Hgb 8.9 L Hct 28.6 L MCV RDW 17.8 H Plt Count 139 L Lymph % (Auto) [place] % (Auto) Lymph # Seg Neutrophils % Seg Neuts % (Manual) Lymphocytes % (Manual) Nucleated RBC % Seg Neutrophils # Man Lymphocytes # (Manual) Monocytes # (Manual) Eosinophils # (Manual) PT INR D-Dimer Heparin Anti-Xa Level < 0.10 L ABG pH ABG pO2 ABG HCO3 ABG O2 Saturation ABG Base Excess ABG Hemoglobin Oxyhemoglobin Sodium Potassium Chloride Carbon Dioxide BUN Creatinine Glucose POC Glucose Calcium Magnesium Ferritin 4195.0 H Direct Bilirubin AST ALT Alkaline Phosphatase Lactate Dehydrogenase Troponin T C-Reactive Protein NT-Pro-B Natriuret Pep Total Protein Albumin Crossmatch 01/24/20 01/24/20 01/24/20 04:00 04:00 04:00 WBC RBC Hgb Hct MCV RDW Plt Count Lymph % (Auto) [place] % (Auto) Lymph # Seg Neutrophils % Seg Neuts % (Manual) Lymphocytes % (Manual) Nucleated RBC % Seg Neutrophils # Man Lymphocytes # (Manual) Monocytes # (Manual) Eosinophils # (Manual) PT INR D-Dimer 5783.11 H Heparin Anti-Xa Level ABG pH 7.188 L* ABG pO2 70.8 L ABG HCO3 32.2 H ABG O2 Saturation 90.4 L ABG Base Excess ABG Hemoglobin 8.5 L Oxyhemoglobin 88.1 L Sodium Potassium Chloride Carbon Dioxide BUN Creatinine Glucose POC Glucose Calcium Magnesium Ferritin Direct Bilirubin AST ALT Alkaline Phosphatase Lactate Dehydrogenase 474 H Troponin T C-Reactive Protein 29.80 H NT-Pro-B Natriuret Pep Total Protein Albumin Crossmatch 01/24/20 01/24/20 01/24/20 05:20 05:51 09:14 WBC RBC Hgb Hct MCV RDW Plt Count Lymph % (Auto) [place] % (Auto) Lymph # Seg Neutrophils % Seg Neuts % (Manual) Lymphocytes % (Manual) Nucleated RBC % Seg Neutrophils # Man Lymphocytes # (Manual) Monocytes # (Manual) Eosinophils # (Manual) PT INR D-Dimer Heparin Anti-Xa Level ABG pH 7.214 L ABG pO2 71.7 L ABG HCO3 31.5 H ABG O2 Saturation 91.8 L ABG Base Excess ABG Hemoglobin 9.1 L Oxyhemoglobin 89.3 L Sodium Potassium Chloride Carbon Dioxide BUN Creatinine Glucose POC Glucose 50 L 53 L Calcium Magnesium Ferritin Direct Bilirubin AST ALT Alkaline Phosphatase Lactate Dehydrogenase Troponin T C-Reactive Protein NT-Pro-B Natriuret Pep Total Protein Albumin Crossmatch 01/24/20 01/24/20 01/24/20 15:10 18:04 21:10 WBC RBC Hgb Hct MCV RDW Plt Count Lymph % (Auto) [place] % (Auto) Lymph # Seg Neutrophils % Seg Neuts % (Manual) Lymphocytes % (Manual) Nucleated RBC % Seg Neutrophils # Man Lymphocytes # (Manual) Monocytes # (Manual) Eosinophils # (Manual) PT INR D-Dimer Heparin Anti-Xa Level ABG pH ABG pO2 ABG HCO3 ABG O2 Saturation ABG Base Excess ABG Hemoglobin Oxyhemoglobin Sodium Potassium Chloride Carbon Dioxide BUN Creatinine Glucose POC Glucose 114 H 51 L 144 H Calcium Magnesium Ferritin Direct Bilirubin AST ALT Alkaline Phosphatase Lactate Dehydrogenase Troponin T C-Reactive Protein NT-Pro-B Natriuret Pep Total Protein Albumin Crossmatch 01/24/20 01/25/20 01/25/20 Unknown 00:32 03:50 WBC 13.0 H RBC 3.10 L Hgb 9.2 L Hct 29.0 L MCV RDW 17.7 H Plt Count Lymph % (Auto) [place] % (Auto) Lymph # Seg Neutrophils % Seg Neuts % (Manual) 92.0 H Lymphocytes % (Manual) 5.0 L Nucleated RBC % Seg Neutrophils # Man 12.0 H Lymphocytes # (Manual) 0.7 L Monocytes # (Manual) Eosinophils # (Manual) PT INR D-Dimer Heparin Anti-Xa Level ABG pH 7.291 L ABG pO2 71.3 L ABG HCO3 30.6 H ABG O2 Saturation 93.6 L ABG Base Excess 3.3 H ABG Hemoglobin 8.1 L Oxyhemoglobin 91.2 L Sodium Potassium Chloride Carbon Dioxide BUN Creatinine Glucose POC Glucose 114 H Calcium Magnesium Ferritin Direct Bilirubin AST ALT Alkaline Phosphatase Lactate Dehydrogenase Troponin T C-Reactive Protein NT-Pro-B Natriuret Pep Total Protein Albumin Crossmatch 01/25/20 01/25/20 01/25/20 04:22 06:05 17:28 WBC RBC Hgb Hct MCV RDW Plt Count Lymph % (Auto) [place] % (Auto) Lymph # Seg Neutrophils % Seg Neuts % (Manual) Lymphocytes % (Manual) Nucleated RBC % Seg Neutrophils # Man Lymphocytes # (Manual) Monocytes # (Manual) Eosinophils # (Manual) PT INR D-Dimer Heparin Anti-Xa Level ABG pH 7.304 L ABG pO2 69.5 L ABG HCO3 29.7 H ABG O2 Saturation 93.2 L ABG Base Excess ABG Hemoglobin 8.7 L Oxyhemoglobin 90.7 L Sodium Potassium Chloride Carbon Dioxide BUN Creatinine Glucose POC Glucose 136 H 127 H Calcium Magnesium Ferritin Direct Bilirubin AST ALT Alkaline Phosphatase Lactate Dehydrogenase Troponin T C-Reactive Protein NT-Pro-B Natriuret Pep Total Protein Albumin Crossmatch 01/26/20 01/26/20 01/26/20 00:20 02:31 02:31 WBC RBC Hgb Hct MCV RDW Plt Count Lymph % (Auto) [place] % (Auto) Lymph # Seg Neutrophils % Seg Neuts % (Manual) Lymphocytes % (Manual) Nucleated RBC % Seg Neutrophils # Man Lymphocytes # (Manual) Monocytes # (Manual) Eosinophils # (Manual) PT INR D-Dimer Heparin Anti-Xa Level ABG pH ABG pO2 ABG HCO3 ABG O2 Saturation ABG Base Excess ABG Hemoglobin Oxyhemoglobin Sodium Potassium Chloride Carbon Dioxide BUN Creatinine Glucose POC Glucose 127 H Calcium Magnesium Ferritin 3764.0 H Direct Bilirubin AST ALT Alkaline Phosphatase Lactate Dehydrogenase 393 H Troponin T C-Reactive Protein 28.60 H NT-Pro-B Natriuret Pep Total Protein Albumin Crossmatch 01/26/20 01/26/20 01/26/20 02:31 04:45 05:24 WBC RBC Hgb Hct MCV RDW Plt Count Lymph % (Auto) [place] % (Auto) Lymph # Seg Neutrophils % Seg Neuts % (Manual) Lymphocytes % (Manual) Nucleated RBC % Seg Neutrophils # Man Lymphocytes # (Manual) Monocytes # (Manual) Eosinophils # (Manual) PT INR D-Dimer 3828.76 H Heparin Anti-Xa Level ABG pH ABG pO2 ABG HCO3 30.8 H ABG O2 Saturation ABG Base Excess 4.9 H ABG Hemoglobin 7.4 L Oxyhemoglobin 94.6 L Sodium Potassium Chloride Carbon Dioxide BUN Creatinine Glucose POC Glucose 121 H Calcium Magnesium Ferritin Direct Bilirubin AST ALT Alkaline Phosphatase Lactate Dehydrogenase Troponin T C-Reactive Protein NT-Pro-B Natriuret Pep Total Protein Albumin Crossmatch 01/26/20 01/26/20 01/26/20 10:40 12:36 18:10 WBC RBC Hgb Hct MCV RDW Plt Count Lymph % (Auto) [place] % (Auto) Lymph # Seg Neutrophils % Seg Neuts % (Manual) Lymphocytes % (Manual) Nucleated RBC % Seg Neutrophils # Man Lymphocytes # (Manual) Monocytes # (Manual) Eosinophils # (Manual) PT INR D-Dimer Heparin Anti-Xa Level ABG pH ABG pO2 ABG HCO3 ABG O2 Saturation ABG Base Excess ABG Hemoglobin Oxyhemoglobin Sodium Potassium Chloride Carbon Dioxide BUN Creatinine Glucose POC Glucose 119 H 126 H 159 H Calcium Magnesium Ferritin Direct Bilirubin AST ALT Alkaline Phosphatase Lactate Dehydrogenase Troponin T C-Reactive Protein NT-Pro-B Natriuret Pep Total Protein Albumin Crossmatch 01/27/20 01/27/20 01/27/20 03:45 06:15 12:19 WBC RBC Hgb Hct MCV RDW Plt Count Lymph % (Auto) [place] % (Auto) Lymph # Seg Neutrophils % Seg Neuts % (Manual) Lymphocytes % (Manual) Nucleated RBC % Seg Neutrophils # Man Lymphocytes # (Manual) Monocytes # (Manual) Eosinophils # (Manual) PT INR D-Dimer Heparin Anti-Xa Level ABG pH 7.307 L ABG pO2 91.1 H ABG HCO3 30.5 H ABG O2 Saturation ABG Base Excess 3.4 H ABG Hemoglobin 8.7 L Oxyhemoglobin 94.3 L Sodium Potassium Chloride Carbon Dioxide BUN Creatinine Glucose POC Glucose 147 H 164 H Calcium Magnesium Ferritin Direct Bilirubin AST ALT Alkaline Phosphatase Lactate Dehydrogenase Troponin T C-Reactive Protein NT-Pro-B Natriuret Pep Total Protein Albumin Crossmatch 01/27/20 01/28/20 01/28/20 17:42 00:29 04:34 WBC RBC Hgb Hct MCV RDW Plt Count Lymph % (Auto) [place] % (Auto) Lymph # Seg Neutrophils % Seg Neuts % (Manual) Lymphocytes % (Manual) Nucleated RBC % Seg Neutrophils # Man Lymphocytes # (Manual) Monocytes # (Manual) Eosinophils # (Manual) PT INR D-Dimer Heparin Anti-Xa Level ABG pH ABG pO2 ABG HCO3 ABG O2 Saturation ABG Base Excess ABG Hemoglobin Oxyhemoglobin Sodium Potassium Chloride Carbon Dioxide BUN Creatinine Glucose POC Glucose 149 H 178 H Calcium Magnesium Ferritin > 2000.0 H Direct Bilirubin AST ALT Alkaline Phosphatase Lactate Dehydrogenase Troponin T C-Reactive Protein NT-Pro-B Natriuret Pep Total Protein Albumin Crossmatch 01/28/20 01/28/20 01/28/20 04:34 04:34 05:20 WBC RBC Hgb Hct MCV RDW Plt Count Lymph % (Auto) [place] % (Auto) Lymph # Seg Neutrophils % Seg Neuts % (Manual) Lymphocytes % (Manual) Nucleated RBC % Seg Neutrophils # Man Lymphocytes # (Manual) Monocytes # (Manual) Eosinophils # (Manual) PT INR D-Dimer 2379 H Heparin Anti-Xa Level ABG pH 7.237 L ABG pO2 90.9 H ABG HCO3 29.1 H ABG O2 Saturation ABG Base Excess ABG Hemoglobin 7.5 L Oxyhemoglobin 94.0 L Sodium Potassium Chloride Carbon Dioxide BUN Creatinine Glucose POC Glucose Calcium Magnesium Ferritin Direct Bilirubin AST ALT Alkaline Phosphatase Lactate Dehydrogenase 434 H Troponin T C-Reactive Protein 9.70 H NT-Pro-B Natriuret Pep Total Protein Albumin Crossmatch 01/28/20 01/28/20 01/28/20 06:21 12:25 18:17 WBC RBC Hgb Hct MCV RDW Plt Count Lymph % (Auto) [place] % (Auto) Lymph # Seg Neutrophils % Seg Neuts % (Manual) Lymphocytes % (Manual) Nucleated RBC % Seg Neutrophils # Man Lymphocytes # (Manual) Monocytes # (Manual) Eosinophils # (Manual) PT INR D-Dimer Heparin Anti-Xa Level ABG pH ABG pO2 ABG HCO3 ABG O2 Saturation ABG Base Excess ABG Hemoglobin Oxyhemoglobin Sodium Potassium Chloride Carbon Dioxide BUN Creatinine Glucose POC Glucose 127 H 196 H 190 H Calcium Magnesium Ferritin Direct Bilirubin AST ALT Alkaline Phosphatase Lactate Dehydrogenase Troponin T C-Reactive Protein NT-Pro-B Natriuret Pep Total Protein Albumin Crossmatch 01/28/20 01/29/20 01/29/20 23:35 04:00 04:00 WBC 12.6 H RBC 3.01 L Hgb 9.2 L Hct 29.3 L MCV 98 H RDW 18.1 H Plt Count Lymph % (Auto) [place] % (Auto) Lymph # Seg Neutrophils % Seg Neuts % (Manual) Lymphocytes % (Manual) Nucleated RBC % Seg Neutrophils # Man Lymphocytes # (Manual) Monocytes # (Manual) Eosinophils # (Manual) PT INR D-Dimer Heparin Anti-Xa Level ABG pH ABG pO2 ABG HCO3 ABG O2 Saturation ABG Base Excess ABG Hemoglobin Oxyhemoglobin Sodium 132 L Potassium Chloride 90.1 L Carbon Dioxide BUN 50 H Creatinine 3.7 H Glucose 184 H POC Glucose 177 H Calcium Magnesium Ferritin Direct Bilirubin AST 93 H ALT Alkaline Phosphatase 678 H Lactate Dehydrogenase Troponin T C-Reactive Protein NT-Pro-B Natriuret Pep Total Protein Albumin 1.7 L Crossmatch 01/29/20 01/29/20 01/29/20 05:03 11:53 16:44 WBC RBC Hgb Hct MCV RDW Plt Count Lymph % (Auto) [place] % (Auto) Lymph # Seg Neutrophils % Seg Neuts % (Manual) Lymphocytes % (Manual) Nucleated RBC % Seg Neutrophils # Man Lymphocytes # (Manual) Monocytes # (Manual) Eosinophils # (Manual) PT INR D-Dimer Heparin Anti-Xa Level ABG pH ABG pO2 ABG HCO3 ABG O2 Saturation ABG Base Excess ABG Hemoglobin Oxyhemoglobin Sodium Potassium Chloride Carbon Dioxide BUN Creatinine Glucose POC Glucose 145 H 193 H 174 H Calcium Magnesium Ferritin Direct Bilirubin AST ALT Alkaline Phosphatase Lactate Dehydrogenase Troponin T C-Reactive Protein NT-Pro-B Natriuret Pep Total Protein Albumin Crossmatch 01/29/20 01/30/20 01/30/20 23:38 04:25 11:45 WBC RBC Hgb Hct MCV RDW Plt Count Lymph % (Auto) [place] % (Auto) Lymph # Seg Neutrophils % Seg Neuts % (Manual) Lymphocytes % (Manual) Nucleated RBC % Seg Neutrophils # Man Lymphocytes # (Manual) Monocytes # (Manual) Eosinophils # (Manual) PT INR D-Dimer Heparin Anti-Xa Level ABG pH 7.253 L ABG pO2 61.8 L ABG HCO3 29.7 H ABG O2 Saturation 90.1 L ABG Base Excess ABG Hemoglobin 8.2 L Oxyhemoglobin 87.5 L Sodium Potassium Chloride Carbon Dioxide BUN Creatinine Glucose POC Glucose 144 H 191 H Calcium Magnesium Ferritin Direct Bilirubin AST ALT Alkaline Phosphatase Lactate Dehydrogenase Troponin T C-Reactive Protein NT-Pro-B Natriuret Pep Total Protein Albumin Crossmatch 01/30/20 01/31/20 01/31/20 18:21 00:04 03:52 WBC RBC Hgb Hct MCV RDW Plt Count Lymph % (Auto) [place] % (Auto) Lymph # Seg Neutrophils % Seg Neuts % (Manual) Lymphocytes % (Manual) Nucleated RBC % Seg Neutrophils # Man Lymphocytes # (Manual) Monocytes # (Manual) Eosinophils # (Manual) PT INR D-Dimer Heparin Anti-Xa Level ABG pH ABG pO2 69.3 L ABG HCO3 29.4 H ABG O2 Saturation ABG Base Excess 3.7 H ABG Hemoglobin 10.8 L Oxyhemoglobin Sodium Potassium Chloride Carbon Dioxide BUN Creatinine Glucose POC Glucose 198 H 129 H Calcium Magnesium Ferritin Direct Bilirubin AST ALT Alkaline Phosphatase Lactate Dehydrogenase Troponin T C-Reactive Protein NT-Pro-B Natriuret Pep Total Protein Albumin Crossmatch 01/31/20 01/31/20 01/31/20 04:00 04:16 05:12 WBC 16.7 H RBC 2.73 L Hgb 8.3 L Hct 25.7 L MCV RDW 18.0 H Plt Count Lymph % (Auto) [place] % (Auto) Lymph # Seg Neutrophils % Seg Neuts % (Manual) 92.0 H Lymphocytes % (Manual) 2.0 L Nucleated RBC % Seg Neutrophils # Man 15.4 H Lymphocytes # (Manual) 0.3 L Monocytes # (Manual) 1.0 H Eosinophils # (Manual) PT INR D-Dimer Heparin Anti-Xa Level ABG pH ABG pO2 ABG HCO3 ABG O2 Saturation ABG Base Excess ABG Hemoglobin Oxyhemoglobin Sodium 130 L Potassium Chloride 90.1 L Carbon Dioxide BUN 61 H Creatinine 3.4 H Glucose 128 H POC Glucose 157 H Calcium Magnesium Ferritin Direct Bilirubin AST 103 H ALT 63 H Alkaline Phosphatase 534 H Lactate Dehydrogenase Troponin T C-Reactive Protein NT-Pro-B Natriuret Pep Total Protein Albumin 2.1 L Crossmatch 01/31/20 01/31/20 01/31/20 11:50 17:39 18:47 WBC RBC Hgb Hct MCV RDW Plt Count Lymph % (Auto) [place] % (Auto) Lymph # Seg Neutrophils % Seg Neuts % (Manual) Lymphocytes % (Manual) Nucleated RBC % Seg Neutrophils # Man Lymphocytes # (Manual) Monocytes # (Manual) Eosinophils # (Manual) PT INR D-Dimer Heparin Anti-Xa Level ABG pH ABG pO2 ABG HCO3 ABG O2 Saturation ABG Base Excess ABG Hemoglobin Oxyhemoglobin Sodium Potassium Chloride Carbon Dioxide BUN Creatinine Glucose POC Glucose 129 H 51 L 172 H Calcium Magnesium Ferritin Direct Bilirubin AST ALT Alkaline Phosphatase Lactate Dehydrogenase Troponin T C-Reactive Protein NT-Pro-B Natriuret Pep Total Protein Albumin Crossmatch 02/01/20 02/01/20 02/01/20 03:49 03:49 05:00 WBC 17.4 H RBC 2.68 L Hgb 8.0 L Hct 25.2 L MCV RDW 18.4 H Plt Count Lymph % (Auto) [place] % (Auto) Lymph # Seg Neutrophils % Seg Neuts % (Manual) Lymphocytes % (Manual) Nucleated RBC % Seg Neutrophils # Man Lymphocytes # (Manual) Monocytes # (Manual) Eosinophils # (Manual) PT INR D-Dimer Heparin Anti-Xa Level ABG pH 7.290 L ABG pO2 ABG HCO3 26.8 H ABG O2 Saturation ABG Base Excess ABG Hemoglobin 7.5 L Oxyhemoglobin 94.2 L Sodium 133 L Potassium Chloride 90.8 L Carbon Dioxide 21 L BUN 90 H Creatinine 4.6 H Glucose 145 H POC Glucose Calcium Magnesium Ferritin Direct Bilirubin AST ALT Alkaline Phosphatase Lactate Dehydrogenase Troponin T C-Reactive Protein NT-Pro-B Natriuret Pep Total Protein Albumin Crossmatch 02/01/20 02/01/20 02/01/20 05:34 06:09 12:42 WBC RBC Hgb Hct MCV RDW Plt Count Lymph % (Auto) [place] % (Auto) Lymph # Seg Neutrophils % Seg Neuts % (Manual) Lymphocytes % (Manual) Nucleated RBC % Seg Neutrophils # Man Lymphocytes # (Manual) Monocytes # (Manual) Eosinophils # (Manual) PT INR D-Dimer Heparin Anti-Xa Level ABG pH ABG pO2 ABG HCO3 ABG O2 Saturation ABG Base Excess ABG Hemoglobin Oxyhemoglobin Sodium Potassium Chloride Carbon Dioxide BUN Creatinine Glucose POC Glucose 166 H 143 H 218 H Calcium Magnesium Ferritin Direct Bilirubin AST ALT Alkaline Phosphatase Lactate Dehydrogenase Troponin T C-Reactive Protein NT-Pro-B Natriuret Pep Total Protein Albumin Crossmatch 02/01/20 02/01/20 02/02/20 17:38 18:24 05:00 WBC RBC Hgb Hct MCV RDW Plt Count Lymph % (Auto) [place] % (Auto) Lymph # Seg Neutrophils % Seg Neuts % (Manual) Lymphocytes % (Manual) Nucleated RBC % Seg Neutrophils # Man Lymphocytes # (Manual) Monocytes # (Manual) Eosinophils # (Manual) PT INR D-Dimer Heparin Anti-Xa Level ABG pH 7.317 L ABG pO2 ABG HCO3 28.2 H ABG O2 Saturation ABG Base Excess ABG Hemoglobin 10.1 L Oxyhemoglobin 94.0 L Sodium Potassium Chloride Carbon Dioxide BUN Creatinine Glucose POC Glucose 158 H 233 H Calcium Magnesium Ferritin Direct Bilirubin AST ALT Alkaline Phosphatase Lactate Dehydrogenase Troponin T C-Reactive Protein NT-Pro-B Natriuret Pep Total Protein Albumin Crossmatch 02/02/20 02/02/20 02/02/20 05:44 05:44 05:44 WBC 16.0 H RBC 2.85 L Hgb 8.3 L Hct 26.3 L MCV RDW 18.6 H Plt Count Lymph % (Auto) [place] % (Auto) Lymph # Seg Neutrophils % Seg Neuts % (Manual) 91.0 H Lymphocytes % (Manual) 2.0 L Nucleated RBC % Seg Neutrophils # Man 14.6 H Lymphocytes # (Manual) 0.3 L Monocytes # (Manual) Eosinophils # (Manual) PT INR D-Dimer Heparin Anti-Xa Level 0.77 H ABG pH ABG pO2 ABG HCO3 ABG O2 Saturation ABG Base Excess ABG Hemoglobin Oxyhemoglobin Sodium Potassium Chloride 95.5 L Carbon Dioxide BUN 57 H Creatinine 3.0 H Glucose 144 H POC Glucose Calcium 8.1 L Magnesium Ferritin Direct Bilirubin 0.3 H AST 179 H ALT 106 H Alkaline Phosphatase 557 H Lactate Dehydrogenase Troponin T C-Reactive Protein NT-Pro-B Natriuret Pep Total Protein 6.1 L Albumin 2.3 L Crossmatch 02/02/20 02/02/20 02/02/20 11:17 11:33 12:24 WBC RBC Hgb Hct MCV RDW Plt Count Lymph % (Auto) [place] % (Auto) Lymph # Seg Neutrophils % Seg Neuts % (Manual) Lymphocytes % (Manual) Nucleated RBC % Seg Neutrophils # Man Lymphocytes # (Manual) Monocytes # (Manual) Eosinophils # (Manual) PT INR D-Dimer Heparin Anti-Xa Level ABG pH ABG pO2 ABG HCO3 ABG O2 Saturation ABG Base Excess ABG Hemoglobin Oxyhemoglobin Sodium Potassium Chloride Carbon Dioxide BUN Creatinine Glucose POC Glucose < 40 L < 40 L 224 H Calcium Magnesium Ferritin Direct Bilirubin AST ALT Alkaline Phosphatase Lactate Dehydrogenase Troponin T C-Reactive Protein NT-Pro-B Natriuret Pep Total Protein Albumin Crossmatch 02/02/20 02/02/20 02/03/20 12:33 17:42 00:25 WBC RBC Hgb Hct MCV RDW Plt Count Lymph % (Auto) [place] % (Auto) Lymph # Seg Neutrophils % Seg Neuts % (Manual) Lymphocytes % (Manual) Nucleated RBC % Seg Neutrophils # Man Lymphocytes # (Manual) Monocytes # (Manual) Eosinophils # (Manual) PT INR D-Dimer Heparin Anti-Xa Level ABG pH ABG pO2 ABG HCO3 ABG O2 Saturation ABG Base Excess ABG Hemoglobin Oxyhemoglobin Sodium Potassium Chloride Carbon Dioxide BUN Creatinine Glucose 296 H POC Glucose 228 H < 40 L Calcium Magnesium Ferritin Direct Bilirubin AST ALT Alkaline Phosphatase Lactate Dehydrogenase Troponin T C-Reactive Protein NT-Pro-B Natriuret Pep Total Protein Albumin Crossmatch 02/03/20 02/03/20 02/03/20 00:27 03:59 03:59 WBC 22.9 H RBC 2.80 L Hgb 8.3 L Hct 27.4 L MCV 98 H RDW 19.2 H Plt Count Lymph % (Auto) [place] % (Auto) Lymph # Seg Neutrophils % Seg Neuts % (Manual) 92.0 H Lymphocytes % (Manual) 4.0 L Nucleated RBC % Seg Neutrophils # Man 21.1 H Lymphocytes # (Manual) 0.9 L Monocytes # (Manual) Eosinophils # (Manual) PT INR D-Dimer Heparin Anti-Xa Level ABG pH ABG pO2 ABG HCO3 ABG O2 Saturation ABG Base Excess ABG Hemoglobin Oxyhemoglobin Sodium 134 L Potassium 3.5 L Chloride Carbon Dioxide 21 L BUN 40 H Creatinine 2.6 H Glucose 180 H POC Glucose 198 H Calcium Magnesium Ferritin Direct Bilirubin AST ALT Alkaline Phosphatase Lactate Dehydrogenase Troponin T C-Reactive Protein NT-Pro-B Natriuret Pep Total Protein Albumin Crossmatch 02/03/20 02/03/20 02/03/20 04:48 05:00 12:21 WBC RBC Hgb Hct MCV RDW Plt Count Lymph % (Auto) [place] % (Auto) Lymph # Seg Neutrophils % Seg Neuts % (Manual) Lymphocytes % (Manual) Nucleated RBC % Seg Neutrophils # Man Lymphocytes # (Manual) Monocytes # (Manual) Eosinophils # (Manual) PT INR D-Dimer Heparin Anti-Xa Level ABG pH 7.315 L ABG pO2 97.3 H ABG HCO3 28.5 H ABG O2 Saturation ABG Base Excess ABG Hemoglobin 8.3 L Oxyhemoglobin 94.8 L Sodium Potassium Chloride Carbon Dioxide BUN Creatinine Glucose POC Glucose 182 H 201 H Calcium Magnesium Ferritin Direct Bilirubin AST ALT Alkaline Phosphatase Lactate Dehydrogenase Troponin T C-Reactive Protein NT-Pro-B Natriuret Pep Total Protein Albumin Crossmatch 02/03/20 02/03/20 02/04/20 17:43 23:36 04:50 WBC RBC Hgb Hct MCV RDW Plt Count Lymph % (Auto) [place] % (Auto) Lymph # Seg Neutrophils % Seg Neuts % (Manual) Lymphocytes % (Manual) Nucleated RBC % Seg Neutrophils # Man Lymphocytes # (Manual) Monocytes # (Manual) Eosinophils # (Manual) PT INR D-Dimer Heparin Anti-Xa Level ABG pH ABG pO2 ABG HCO3 ABG O2 Saturation ABG Base Excess ABG Hemoglobin Oxyhemoglobin Sodium 135 L Potassium Chloride 96.3 L Carbon Dioxide 21 L BUN 63 H Creatinine 4.1 H D Glucose 156 H POC Glucose 224 H 146 H Calcium 8.2 L Magnesium Ferritin Direct Bilirubin AST ALT Alkaline Phosphatase Lactate Dehydrogenase Troponin T C-Reactive Protein NT-Pro-B Natriuret Pep Total Protein Albumin Crossmatch 02/04/20 02/04/20 02/04/20 04:50 05:30 05:40 WBC 18.3 H RBC 2.31 L Hgb 6.9 L Hct 22.0 L MCV RDW 18.2 H Plt Count Lymph % (Auto) [place] % (Auto) Lymph # Seg Neutrophils % Seg Neuts % (Manual) 85.0 H Lymphocytes % (Manual) 4.0 L Nucleated RBC % 1.0 H Seg Neutrophils # Man 15.6 H Lymphocytes # (Manual) 0.7 L Monocytes # (Manual) Eosinophils # (Manual) PT INR D-Dimer Heparin Anti-Xa Level ABG pH 7.317 L ABG pO2 77.7 L ABG HCO3 27.4 H ABG O2 Saturation ABG Base Excess ABG Hemoglobin 8.0 L Oxyhemoglobin 94.5 L Sodium Potassium Chloride Carbon Dioxide BUN Creatinine Glucose POC Glucose 202 H Calcium Magnesium Ferritin Direct Bilirubin AST ALT Alkaline Phosphatase Lactate Dehydrogenase Troponin T C-Reactive Protein NT-Pro-B Natriuret Pep Total Protein Albumin Crossmatch 02/04/20 02/04/20 02/04/20 10:47 12:53 18:44 WBC RBC Hgb Hct MCV RDW Plt Count Lymph % (Auto) [place] % (Auto) Lymph # Seg Neutrophils % Seg Neuts % (Manual) Lymphocytes % (Manual) Nucleated RBC % Seg Neutrophils # Man Lymphocytes # (Manual) Monocytes # (Manual) Eosinophils # (Manual) PT INR D-Dimer Heparin Anti-Xa Level ABG pH ABG pO2 ABG HCO3 ABG O2 Saturation ABG Base Excess ABG Hemoglobin Oxyhemoglobin Sodium Potassium Chloride Carbon Dioxide BUN Creatinine Glucose POC Glucose 197 H 143 H Calcium Magnesium Ferritin Direct Bilirubin AST ALT Alkaline Phosphatase Lactate Dehydrogenase Troponin T C-Reactive Protein NT-Pro-B Natriuret Pep Total Protein Albumin Crossmatch See Detail 02/05/20 02/05/20 02/05/20 00:43 04:14 04:35 WBC RBC Hgb Hct MCV RDW Plt Count Lymph % (Auto) [place] % (Auto) Lymph # Seg Neutrophils % Seg Neuts % (Manual) Lymphocytes % (Manual) Nucleated RBC % Seg Neutrophils # Man Lymphocytes # (Manual) Monocytes # (Manual) Eosinophils # (Manual) PT INR D-Dimer Heparin Anti-Xa Level ABG pH 7.327 L ABG pO2 75.5 L ABG HCO3 30.1 H ABG O2 Saturation ABG Base Excess 3.5 H ABG Hemoglobin 8.4 L Oxyhemoglobin 93.8 L Sodium 134 L Potassium 3.3 L Chloride 97.3 L Carbon Dioxide BUN 38 H Creatinine 2.2 H Glucose 187 H POC Glucose 163 H Calcium 8.1 L Magnesium Ferritin Direct Bilirubin AST ALT Alkaline Phosphatase Lactate Dehydrogenase Troponin T C-Reactive Protein NT-Pro-B Natriuret Pep Total Protein Albumin Crossmatch 02/05/20 02/05/20 02/05/20 04:35 05:16 12:17 WBC 24.4 H RBC 2.75 L Hgb 7.9 L Hct 25.2 L MCV RDW 18.1 H Plt Count Lymph % (Auto) [place] % (Auto) Lymph # Seg Neutrophils % Seg Neuts % (Manual) 96.0 H Lymphocytes % (Manual) 1.0 L Nucleated RBC % Seg Neutrophils # Man 23.4 H Lymphocytes # (Manual) 0.2 L Monocytes # (Manual) Eosinophils # (Manual) 0.5 H PT INR D-Dimer Heparin Anti-Xa Level ABG pH ABG pO2 ABG HCO3 ABG O2 Saturation ABG Base Excess ABG Hemoglobin Oxyhemoglobin Sodium Potassium Chloride Carbon Dioxide BUN Creatinine Glucose POC Glucose 196 H 174 H Calcium Magnesium Ferritin Direct Bilirubin AST ALT Alkaline Phosphatase Lactate Dehydrogenase Troponin T C-Reactive Protein NT-Pro-B Natriuret Pep Total Protein Albumin Crossmatch 02/05/20 02/05/20 02/05/20 13:55 13:55 13:55 WBC RBC Hgb Hct MCV RDW Plt Count Lymph % (Auto) [place] % (Auto) Lymph # Seg Neutrophils % Seg Neuts % (Manual) Lymphocytes % (Manual) Nucleated RBC % Seg Neutrophils # Man Lymphocytes # (Manual) Monocytes # (Manual) Eosinophils # (Manual) PT INR D-Dimer 2896.73 H Heparin Anti-Xa Level ABG pH ABG pO2 ABG HCO3 ABG O2 Saturation ABG Base Excess ABG Hemoglobin Oxyhemoglobin Sodium Potassium Chloride Carbon Dioxide BUN Creatinine Glucose POC Glucose Calcium Magnesium Ferritin > 2000.0 H Direct Bilirubin AST ALT Alkaline Phosphatase Lactate Dehydrogenase 311 H Troponin T C-Reactive Protein 17.30 H NT-Pro-B Natriuret Pep Total Protein Albumin Crossmatch 02/05/20 02/05/20 02/06/20 17:20 21:53 04:50 WBC RBC Hgb Hct MCV RDW Plt Count Lymph % (Auto) [place] % (Auto) Lymph # Seg Neutrophils % Seg Neuts % (Manual) Lymphocytes % (Manual) Nucleated RBC % Seg Neutrophils # Man Lymphocytes # (Manual) Monocytes # (Manual) Eosinophils # (Manual) PT INR D-Dimer Heparin Anti-Xa Level ABG pH 7.349 L ABG pO2 64.5 L ABG HCO3 28.4 H ABG O2 Saturation 94.0 L ABG Base Excess ABG Hemoglobin 8.4 L Oxyhemoglobin 91.8 L Sodium Potassium Chloride Carbon Dioxide BUN Creatinine Glucose POC Glucose 191 H 200 H Calcium Magnesium Ferritin Direct Bilirubin AST ALT Alkaline Phosphatase Lactate Dehydrogenase Troponin T C-Reactive Protein NT-Pro-B Natriuret Pep Total Protein Albumin Crossmatch 02/06/20 02/06/20 02/06/20 05:55 05:55 05:58 WBC 22.4 H RBC 3.02 L Hgb 8.5 L Hct 27.6 L MCV RDW 18.8 H Plt Count Lymph % (Auto) [place] % (Auto) Lymph # Seg Neutrophils % Seg Neuts % (Manual) Lymphocytes % (Manual) Nucleated RBC % Seg Neutrophils # Man Lymphocytes # (Manual) Monocytes # (Manual) Eosinophils # (Manual) PT INR D-Dimer Heparin Anti-Xa Level ABG pH ABG pO2 ABG HCO3 ABG O2 Saturation ABG Base Excess ABG Hemoglobin Oxyhemoglobin Sodium 136 L Potassium Chloride 96.4 L Carbon Dioxide BUN 66 H Creatinine 3.6 H D Glucose 139 H POC Glucose 110 H Calcium Magnesium Ferritin Direct Bilirubin AST ALT Alkaline Phosphatase Lactate Dehydrogenase Troponin T C-Reactive Protein NT-Pro-B Natriuret Pep Total Protein Albumin Crossmatch 02/06/20 02/06/20 02/06/20 12:19 17:52 23:47 WBC RBC Hgb Hct MCV RDW Plt Count Lymph % (Auto) [place] % (Auto) Lymph # Seg Neutrophils % Seg Neuts % (Manual) Lymphocytes % (Manual) Nucleated RBC % Seg Neutrophils # Man Lymphocytes # (Manual) Monocytes # (Manual) Eosinophils # (Manual) PT INR D-Dimer Heparin Anti-Xa Level ABG pH ABG pO2 ABG HCO3 ABG O2 Saturation ABG Base Excess ABG Hemoglobin Oxyhemoglobin Sodium Potassium Chloride Carbon Dioxide BUN Creatinine Glucose POC Glucose 185 H 185 H 173 H Calcium Magnesium Ferritin Direct Bilirubin AST ALT Alkaline Phosphatase Lactate Dehydrogenase Troponin T C-Reactive Protein NT-Pro-B Natriuret Pep Total Protein Albumin Crossmatch 02/07/20 02/07/20 02/07/20 05:04 11:46 11:52 WBC RBC Hgb Hct MCV RDW Plt Count Lymph % (Auto) [place] % (Auto) Lymph # Seg Neutrophils % Seg Neuts % (Manual) Lymphocytes % (Manual) Nucleated RBC % Seg Neutrophils # Man Lymphocytes # (Manual) Monocytes # (Manual) Eosinophils # (Manual) PT INR D-Dimer Heparin Anti-Xa Level ABG pH ABG pO2 ABG HCO3 ABG O2 Saturation ABG Base Excess ABG Hemoglobin Oxyhemoglobin Sodium Potassium Chloride Carbon Dioxide BUN Creatinine Glucose POC Glucose 145 H 240 H 251 H Calcium Magnesium Ferritin Direct Bilirubin AST ALT Alkaline Phosphatase Lactate Dehydrogenase Troponin T C-Reactive Protein NT-Pro-B Natriuret Pep Total Protein Albumin Crossmatch 02/07/20 02/08/20 02/08/20 18:18 00:22 05:43 WBC RBC Hgb Hct MCV RDW Plt Count Lymph % (Auto) [place] % (Auto) Lymph # Seg Neutrophils % Seg Neuts % (Manual) Lymphocytes % (Manual) Nucleated RBC % Seg Neutrophils # Man Lymphocytes # (Manual) Monocytes # (Manual) Eosinophils # (Manual) PT INR D-Dimer Heparin Anti-Xa Level ABG pH ABG pO2 ABG HCO3 ABG O2 Saturation ABG Base Excess ABG Hemoglobin Oxyhemoglobin Sodium Potassium Chloride Carbon Dioxide BUN Creatinine Glucose POC Glucose 225 H 274 H 307 H Calcium Magnesium Ferritin Direct Bilirubin AST ALT Alkaline Phosphatase Lactate Dehydrogenase Troponin T C-Reactive Protein NT-Pro-B Natriuret Pep Total Protein Albumin Crossmatch 02/08/20 02/08/20 02/08/20 09:40 12:09 17:42 WBC RBC Hgb Hct MCV RDW Plt Count Lymph % (Auto) [place] % (Auto) Lymph # Seg Neutrophils % Seg Neuts % (Manual) Lymphocytes % (Manual) Nucleated RBC % Seg Neutrophils # Man Lymphocytes # (Manual) Monocytes # (Manual) Eosinophils # (Manual) PT INR D-Dimer Heparin Anti-Xa Level ABG pH 7.167 L* ABG pO2 ABG HCO3 30.3 H ABG O2 Saturation 92.6 L ABG Base Excess ABG Hemoglobin 8.8 L Oxyhemoglobin 90.4 L Sodium Potassium Chloride Carbon Dioxide BUN Creatinine Glucose POC Glucose 327 H 269 H Calcium Magnesium Ferritin Direct Bilirubin AST ALT Alkaline Phosphatase Lactate Dehydrogenase Troponin T C-Reactive Protein NT-Pro-B Natriuret Pep Total Protein Albumin Crossmatch 02/08/20 02/09/20 02/09/20 20:45 01:16 04:48 WBC 22.9 H RBC 2.86 L Hgb 8.3 L Hct 26.2 L MCV RDW 18.0 H Plt Count 507 H Lymph % (Auto) [place] % (Auto) Lymph # Seg Neutrophils % Seg Neuts % (Manual) Lymphocytes % (Manual) Nucleated RBC % Seg Neutrophils # Man Lymphocytes # (Manual) Monocytes # (Manual) Eosinophils # (Manual) PT INR D-Dimer Heparin Anti-Xa Level ABG pH ABG pO2 79.1 L ABG HCO3 31.7 H ABG O2 Saturation ABG Base Excess 4.6 H ABG Hemoglobin Oxyhemoglobin 93.5 L Sodium Potassium Chloride Carbon Dioxide BUN Creatinine Glucose POC Glucose 150 H Calcium Magnesium Ferritin Direct Bilirubin AST ALT Alkaline Phosphatase Lactate Dehydrogenase Troponin T C-Reactive Protein NT-Pro-B Natriuret Pep Total Protein Albumin Crossmatch 02/09/20 02/09/20 04:48 05:14 WBC RBC Hgb Hct MCV RDW Plt Count Lymph % (Auto) [place] % (Auto) Lymph # Seg Neutrophils % Seg Neuts % (Manual) Lymphocytes % (Manual) Nucleated RBC % Seg Neutrophils # Man Lymphocytes # (Manual) Monocytes # (Manual) Eosinophils # (Manual) PT INR D-Dimer Heparin Anti-Xa Level ABG pH ABG pO2 ABG HCO3 ABG O2 Saturation ABG Base Excess ABG Hemoglobin Oxyhemoglobin Sodium Potassium Chloride 93.9 L Carbon Dioxide BUN 59 H Creatinine 2.5 H Glucose 309 H POC Glucose 356 H Calcium Magnesium Ferritin Direct Bilirubin AST ALT Alkaline Phosphatase Lactate Dehydrogenase Troponin T C-Reactive Protein NT-Pro-B Natriuret Pep Total Protein Albumin Crossmatch Allied health notes reviewed: nursing
--- NOTE | 2020-02-09 13:07 | Progress Note ---
Assessment and Plan - Patient Problems (1) End stage renal disease on dialysis Current Visit: No Status: Chronic Plan to address problem: continue HD on MWF schedule. vasopressor support during HD prn to maintain MAP > 65mmhg (2) Pneumonia due to COVID-19 virus Current Visit: Yes Status: Acute Plan to address problem: continue treatment per infectious disease. (3) Acute respiratory failure with hypoxia Current Visit: No Status: Acute Plan to address problem: ventilator management by pulmonary/gis developer (4) Volume overload Current Visit: Yes Status: Acute Qualifiers: Plan to address problem: Fluid status improved with HD (5) Hyponatremia Current Visit: No Status: Acute Plan to address problem: improving with optimizing volume status with HD. 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 (8) Anemia in CKD (chronic kidney disease) Current Visit: Yes Status: Acute Qualifiers: Chronic kidney disease stage: on chronic dialysis Qualified Code(s): N18.6 - End stage renal disease; D63.1 - Anemia in chronic kidney disease; Z99.2 - Dependence on renal dialysis Plan to address problem: CLARITA therapy with HD. (9) Secondary hyperparathyroidism (of renal origin) Current Visit: Yes Status: Chronic Plan to address problem: Continue on current outpatient phos binder regimen. Subjective Date of service: 02/09/20 Principal diagnosis: Pneumonia Interval history: pt intubated, sedated. on daily PSV trial Objective - Exam Narrative Exam: Exam reviewed in chart for PPE conservation - Vital Signs Vital signs: Vital Signs - 12hr 02/09/20 02/09/20 02/09/20 01:08 01:15 01:31 Temperature Pulse Rate 100 H 98 H 100 H Pulse Rate [ From Monitor] Respiratory 27 H 22 Rate Blood Pressure 107/48 112/49 111/43 O2 Sat by Pulse 100 100 100 Oximetry 02/09/20 02/09/20 02/09/20 01:45 02:01 02:15 Temperature Pulse Rate 100 H 98 H 97 H Pulse Rate [ From Monitor] Respiratory 23 26 H 16 Rate Blood Pressure 105/51 105/44 104/51 O2 Sat by Pulse 100 100 100 Oximetry 02/09/20 02/09/20 02/09/20 02:30 02:45 03:01 Temperature Pulse Rate 96 H 96 H 94 H Pulse Rate [ From Monitor] Respiratory 24 15 26 H Rate Blood Pressure 100/52 105/53 102/45 O2 Sat by Pulse 100 100 100 Oximetry 02/09/20 02/09/20 02/09/20 03:15 03:31 03:33 Temperature 98.9 F Pulse Rate 99 H 97 H Pulse Rate [ From Monitor] Respiratory 25 H 24 Rate Blood Pressure 116/47 105/51 O2 Sat by Pulse 100 100 Oximetry 02/09/20 02/09/20 02/09/20 03:45 04:01 04:15 Temperature Pulse Rate 97 H 93 H 96 H Pulse Rate [ From Monitor] Respiratory 22 27 H 24 Rate Blood Pressure 108/56 90/46 103/56 O2 Sat by Pulse 100 100 100 Oximetry 02/09/20 02/09/20 02/09/20 04:30 04:45 05:01 Temperature Pulse Rate 94 H 91 H 96 H Pulse Rate [ From Monitor] Respiratory 25 H 26 H 24 Rate Blood Pressure 98/53 98/53 119/62 O2 Sat by Pulse 100 100 100 Oximetry 02/09/20 02/09/20 02/09/20 05:15 05:21 05:31 Temperature Pulse Rate 97 H 97 H 96 H Pulse Rate [ From Monitor] Respiratory 24 21 Rate Blood Pressure 109/60 109/60 107/52 O2 Sat by Pulse 100 100 100 Oximetry 02/09/20 02/09/20 02/09/20 05:45 06:00 06:15 Temperature Pulse Rate 95 H 95 H 91 H Pulse Rate [ From Monitor] Respiratory 22 30 H 26 H Rate Blood Pressure 116/56 99/55 99/55 O2 Sat by Pulse 100 100 100 Oximetry 02/09/20 02/09/20 02/09/20 06:30 06:45 07:00 Temperature Pulse Rate 96 H 96 H 98 H Pulse Rate [ From Monitor] Respiratory 20 20 22 Rate Blood Pressure 114/57 118/58 116/59 O2 Sat by Pulse 100 100 100 Oximetry 02/09/20 02/09/20 02/09/20 07:15 07:30 07:41 Temperature Pulse Rate 99 H 100 H 96 H Pulse Rate [ From Monitor] Respiratory 22 20 Rate Blood Pressure 120/59 128/60 128/60 O2 Sat by Pulse 100 100 100 Oximetry 02/09/20 02/09/20 02/09/20 07:45 08:00 08:15 Temperature 98.8 F Pulse Rate 97 H 99 H 97 H Pulse Rate [ 88 From Monitor] Respiratory 23 17 21 Rate Blood Pressure 120/64 115/56 114/55 O2 Sat by Pulse 100 100 100 Oximetry 02/09/20 02/09/20 02/09/20 08:30 08:45 09:00 Temperature Pulse Rate 95 H 91 H 98 H Pulse Rate [ From Monitor] Respiratory 24 25 H 20 Rate Blood Pressure 105/54 105/54 116/60 O2 Sat by Pulse 100 100 100 Oximetry 02/09/20 02/09/20 02/09/20 09:15 09:30 09:45 Temperature Pulse Rate 93 H 91 H 91 H Pulse Rate [ From Monitor] Respiratory 24 22 24 Rate Blood Pressure 80/45 78/39 82/44 O2 Sat by Pulse 100 100 100 Oximetry 02/09/20 02/09/20 02/09/20 10:00 10:15 10:31 Temperature Pulse Rate 103 H 106 H 106 H Pulse Rate [ From Monitor] Respiratory 21 18 22 Rate Blood Pressure 168/77 167/80 158/77 O2 Sat by Pulse 100 100 100 Oximetry 02/09/20 02/09/20 02/09/20 10:45 11:00 11:15 Temperature Pulse Rate 100 H 97 H 96 H Pulse Rate [ From Monitor] Respiratory 20 22 22 Rate Blood Pressure 131/69 143/74 144/69 O2 Sat by Pulse 100 100 100 Oximetry 02/09/20 02/09/20 02/09/20 11:31 11:45 12:00 Temperature Pulse Rate 96 H 97 H 96 H Pulse Rate [ 96 H From Monitor] Respiratory 21 22 21 Rate Blood Pressure 135/72 138/73 140/75 O2 Sat by Pulse 100 100 100 Oximetry 02/09/20 02/09/20 12:15 12:34 Temperature Pulse Rate 97 H 97 H Pulse Rate [ From Monitor] Respiratory 21 19 Rate Blood Pressure 146/75 O2 Sat by Pulse 100 100 Oximetry - Lab 02/09/20 04:48 02/09/20 04:48 Most recent lab results ABG pH 7.351 pH Units (7.350-7.450) 02/08/20 20:45 ABG pCO2 58.7 mm Hg 02/08/20 20:45 ABG pO2 79.1 mm Hg (80.0-90.0) L 02/08/20 20:45 ABG HCO3 31.7 mmol/L (20.0-26.0) H 02/08/20 20:45 ABG O2 Saturation 95.6 % (95.0-99.0) 02/08/20 20:45 Calcium 8.8 mg/dL (8.4-10.2) 02/09/20 04:48 Phosphorus 3.30 mg/dL (2.5-4.5) 01/12/20 16:01 Magnesium 2.00 mg/dL (1.7-2.3) 01/13/20 06:11 Medications & Allergies - Medications Allergies/Adverse Reactions: Allergies cheese Allergy (Mild, Verified 12/20/19 10:19) Itching iodine Allergy (Mild, Verified 12/20/19 10:16) Anaphylaxis clonidine Allergy (Verified 12/19/19 04:13) Anaphylaxis shellfish derived Adverse Reaction (Verified 12/19/19 04:13) Angioedema Home Medications: Home Medications Medication Instructions Recorded Confirmed Last Taken Type Atorvastatin [Lipitor] 40 mg PO DAILY 11/06/19 01/13/20 01/02/20 10:00 History Acetaminophen [Acetaminophen 8 650 mg PO Q8H PRN #30 tablet.er 11/21/19 01/13/20 01/03/20 22:00 Rx Hour] Cyclobenzaprine HCl [Flexeril 5 MG 5 mg PO QHS PRN #20 tab 11/21/19 01/13/20 01/01/20 22:00 Rx TAB] HYDROcodone/APAP 5-325 [[place] 1 each PO Q6HR PRN #18 tablet 12/13/19 01/13/20 01/01/20 22:00 Rx 5-325 mg TAB] amLODIPine 10 mg PO DAILY 90 Days #90 tab 12/18/19 01/13/20 01/01/20 10:00 Rx Ibuprofen 800 mg PO TID 12/19/19 01/13/20 01/02/20 22:00 History Magnesium Oxide [Mag-Ox] 400 mg PO QDAY 12/19/19 01/13/20 01/03/20 10:00 History diphenhydrAMINE [Benadryl CAP] 25 mg PO Q8HR PRN 12/19/19 01/13/20 01/03/20 21:00 History labetaloL [Labetalol 100mg TAB] 100 mg PO Q8H #90 tablet 12/21/19 01/13/20 01/02/20 10:00 Rx traMADoL [Ultram 50 MG tab] 50 mg PO Q6HR PRN #20 tablet 12/29/19 01/13/20 12/31/19 10:00 Rx DULoxetine [Cymbalta] 30 mg PO QDAY #30 capsule 01/04/20 01/13/20 Unknown Rx Valsartan [Diovan] 80 mg PO DAILY #30 tablet 01/04/20 01/13/20 Unknown Rx Active Medications: Generic Name Dose Route Start Last Admin Trade Name Freq PRN Reason Stop Dose Admin Acetaminophen 650 mg 01/09/20 16:33 02/05/20 05:58 Tylenol PO 650 mg Q4H PRN Administration Pain MILD(1-3)/Fever >100.5/MEANS Lipase/Protease/Amylase 1 each 01/23/20 14:28 02/07/20 13:18 Pancreazangela Albarran 10,500 Unit FEEDTUBE 1 each PRN PRN Administration For Clogged Feeding Tube Atorvastatin Calcium 40 mg 01/09/20 22:00 02/08/20 21:39 Lipitor PO 40 mg QHS PHILLY Administration Dextrose 50 ml 01/23/20 07:26 02/02/20 11:33 D50w (25gm) Syringe IV 50 ml Q30MIN PRN Administration BLOOD GLUCOSE < 70 Dextrose 25 ml 01/24/20 08:58 01/24/20 13:41 D50w (25gm) Syringe IV 25 ml Q4H PRN Administration BG < 80 MG/DL Docusate Sodium 100 mg 01/25/20 22:00 02/09/20 10:04 Colace PO Not Given BID PHILLY Epoetin Helio 20,000 unit 02/04/20 12:00 02/04/20 13:00 Procrit SUB-Q 20,000 unit SILVERIO PHILLY Administration Famotidine 20 mg 01/09/20 22:00 02/09/20 09:42 Pepcid PO 20 mg DAILY PHILLY Administration Heparin Sodium (Porcine) 5,000 unit 02/07/20 10:00 02/09/20 09:41 Heparin SUB-Q 5,000 unit Q12HR PHILLY Administration Norepinephrine 4 mg in 250 mls @ 7.5 mls/hr 01/21/20 18:00 02/09/20 10:21 Levophed Drip 4 Mg/Ns 250 Ml IV 0 mcg/min TITR PHILLY 0 mls/hr Titration Protocol 2 MCG/MIN Propofol 1,000 mg in 100 mls @ 2.265 mls/hr 01/22/20 09:00 01/30/20 14:25 Diprivan 10 Mg/Ml IV 0 mcg/kg/min TITR PHILLY 0 mls/hr Titration Protocol 5 MCG/KG/MIN Sodium Chloride 100 mls @ 999 mls/hr 02/01/20 09:47 Nacl 0.9% IV SILVERIO PRN Hypotension Cefepime HCl 1 gm in 100 mls @ 200 mls/hr 02/04/20 14:00 02/09/20 09:42 Cefepime/Ns 1 Gm/100 Ml IV 200 mls/hr Q24HR PHILLY Administration Protocol Fluconazole 200 mg in 100 mls @ 100 mls/hr 02/04/20 13:00 02/09/20 09:41 Diflucan IV 100 mls/hr Q24HR PHILLY Administration Protocol Insulin Human Lispro 0 unit 02/07/20 12:00 02/09/20 13:00 Humalog SUB-Q 1 unit Q6HR PHILLY Administration Protocol Lorazepam 2 mg 01/23/20 15:36 Ativan IV Q10MIN PRN Agitation Methylprednisolone Sodium Succinate 40 mg 02/07/20 14:00 02/09/20 13:00 Solu-Medrol IV 40 mg Q8HR PHILLY Administration Ondansetron HCl 4 mg 01/09/20 16:33 01/20/20 10:19 Zofran IV 4 mg Q8H PRN Administration Nausea And Vomiting Simple Syrup 15 ml 01/23/20 14:28 Simple Syrup FEEDTUBE PRN PRN Hypoglycemia Simple Syrup 30 ml 01/23/20 14:28 Simple Syrup FEEDTUBE PRN PRN Hypoglycemia Sodium Bicarbonate 325 mg 01/23/20 14:28 Sodium Bicarbonate FEEDTUBE PRN PRN For Clogged Feeding Tube Sodium Chloride 10 ml 01/09/20 22:00 02/09/20 10:04 Sodium Chloride Flush Syringe 10 Ml IV Not Given BID PHILLY Sodium Chloride 10 ml 01/09/20 16:33 Sodium Chloride Flush Syringe 10 Ml IV PRN PRN LINE FLUSH Valsartan 80 mg 01/10/20 10:00 02/09/20 11:00 Diovan PO 80 mg DAILY PHILLY Administration
[2020-02-10] MEDS: INSULIN LISPRO 100 UNIT/ML SUB-Q SCH ×4 (00:26→19:44)
[2020-02-10] MEDS: methylPREDNISolone Sod Succinate 40 MG/1 ML INJ IV SCH ×3 (05:34→22:09)
[2020-02-10] MEDS ORDERED: SODIUM CHLORIDE 0.9% 250ML 250 ML ONE (08:12)
--- NOTE | 2020-02-10 08:43 | Progress Note ---
Assessment and Plan Assessment and plan: COVID- 19 infection confirmed. Bilateral pneumonia. Continue antibiotics per ID ARDS. Etiology secondary to above. Acute hypoxemic respiratory failure. Intubated, on ventilator Pulm following Chest pain Stress test neg for ischemia GERD and costochondritis in differential diagnosis Volume overload s/p hemodialysis Nephrology consulted,following Acute on Chronic diastolic CHF exacerbation Secondary to volume overload End stage renal disease on dialysis Nephrology following T2DM (type 2 diabetes mellitus) Continue continue coverage Check hemoglobin A1c Hypertension Continue antihypertensives Hyponatremia Secondary to increased volume--dilutional DVT prophylaxis On heparin and GI prophylaxis 01/11 Covid 19 survey testing sent, nasal swab done 01/10 01/12 Patient has acute resp failure. may need Oxygen on dc. awaiting Covid result 01/13 Still has shortness of breath, awaiting Covid test. 01/14 Pt still dyspneic, await covid testing, Pulse ox 83% 01/16/2020. Patient remains dyspneic. Follow-up COVID testing. 01/17/2020. Patient still requiring large amounts of oxygen. Patient currently with 15 L satting at 95%. Patient with increased inflammatory markers. Follow- up chest x-ray today. 01/18/20--Patient still requiring large amounts of oxygen. Patient currently with 15 L %. Patient with increased inflammatory markers. 01/19/2020 very elevated inflammatory markers- ferritin> 2000, CRP >24, LDH> 600, d-dimer >1000 putting her at high risk for ARDS. Continue hydroxychloroquine 400 mg PO BID for 1 day then 200 mg PO BID for 4 days (total 5 days) with zinc 220 mg PO qday. Continue ceftriaxone. ContinueCOVID isolationprecautions per PSYCHIATRIC protocol. Continue serial Ferritin, LDH, D-Dimer, CRP every 48h 01/20/2020. Inflammatory markers remain elevated with ferritin 1826, LDH 496, CRP 19.3, and d-dimer 2072. Patient requiring high flow nasal cannula 40L, FiO2 80%. Pulmonary following. Continue antibiotics and Plaquenil. [facility]prec[facility]. Patient has a high risk mortality and remains guarded. 01/21/2020. Continue antibiotics and Plaquenil. Continue COVID isolationprecautions per PSYCHIATRIC protocol. Maintain sats of 88% and greater. Still on HFNC, O2 weaned to 95% overnight. Sats documented at 98%. Pulmonary following and reports If patient progresses could give bipap a one hour trial to see if there is improvement, repeat ABG, if not would suggest elective intubation 01/22/2020 Patient still critically ill. Yesterday 01/20 had cardiopulmonary arrest so now intubated in ICU. Prognosis guarded. 01/23/2020 still critically ill. No more fever. Continue vent management. 01/24/20 Still critically ill, remain on vent. Continue current management. Will call . 01/25/20 Patient still critically ill. I called Davis Hernandez and gave update. He wants DNR status and says he will request withdrawal of care if patient does not get better after weekend. I discussed with Industrial Security Analyst. 01/26/20 patient still intubated, on vent. She means a DNR order. Discussed with Nurse 01/26 patient still critically ill, vent dependent. 01/27 patient still intubated, on vent. On levophed to keep MAP>65mmhg 01/29/2020 patient still intubated on mechanical ventilation. AC mode ventilation with rate 20, tidal volume 400, FiO2 45% and PEEP 12. patient with no fever. Patient currently with sedation of propofol. Patient received hemodialysis yesterday with approximately 3 L removed. 01/30/2020. Patient still on mechanical ventilation. AC mode ventilation with rate 20, tidal volume 400, FiO2 45% and PEEP 8. Patient with elevated alkaline phosphatase. Check abdominal ultrasound. 01/31/2020. Patient still on mechanical ventilation. PSV mode ventilation with FiO2 50% and PEEP 8 and PS=12. Follow-up abdominal ultrasound for elevated alkaline phosphatase 02/01/2020. Patient currently with PSV FiO2 50%, pressure support 12, PEEP 8. Continue PSV trials per pulmonary. Continue Levophed to maintain MAP greater than 65. Continue propofol for sedation. 02/02/2020. Patient currently on AC mode ventilation rate 20, tidal volume 450, FiO2 50% and PEEP of 6. ABG with pH of 7.31, PCO2 56.4, and PO2 85. Patient confirmed COVID-19 positive on 01/17/2020. Patient with MOSF and guarded prognosis. Follow-up abdominal ultrasound (ordered 3 days ago) for elevated alkaline phosphatase and fevers. 02/03/2020. Patient continues on mechanical ventilation AC mode with rate 20, tidal volume 450 and PEEP of 8. Patient still with temperature 100.5. Patient off sedation but requiring Levophed at 2 mics. Patient with an episode of hypoglycemia yesterday requiring D5 half-normal. Continue to monitor for hypoglycemia. Patient with MOSF and guarded prognosis. Follow-up abdominal ultrasound (ordered 4 days ago) for elevated alkaline phosphatase and fevers. 02/04/2020. Patient continues on mechanical ventilation AC mode with rate 20, tidal volume 450, FiO2 50% and PEEP of 8. Patient continues to have fevers. Patient currently on Levophed. Continue pressors to maintain map greater than 65. Hemoglobin 6.9-1 unit PRBCs ordered. Patient may be able to wean off of Levophed with volume resuscitation of PRBCs. Follow-up abdominal ultrasound (ordered 5 days ago) for elevated alkaline phosphatase and fevers. Patient's prognosis remains guarded. 02/05/2020 patient with covid-19 infection with acute resp failure, intubated, still on vent. Now off Levophed since 02/0302/06/2020 patient with Covid-19 infection. fever yesterday, none today. Continuje current management. Prognosis guarded. 02/07/2020 patient with Covid-19 infection. Still intubated, on vent. Ongoig fever. DNR code status. prognosis remains guarded. 02/08/2020 patient with Covid-19 infection. Still intubated. Ongoing weaning attempts. I called and gave update to , Mr. Davis Medina yesterday. 02/09/2020 patient with Covid-19. No fever X 48 hrs. Repeat covid-19 test negative. I discussed with yesterday 02/08/20. 02/10/2020 Patient with Covid-19. No more fever The high probability of a clinically significant, sudden or life threatening deterioration of the [immunologic and respiratory] system(s) required my full and direct attention, intervention and personal management. The aggregate critical care time was [31] minutes. This time is in addition to time spent performing reported procedures but includes the following: [x] Data Review and interpretation [x] Patient assessment and monitoring of vital signs [x] Documentation [x] Medication orders and management History Interval history: Patient initially presented with chest tightness, SOB Now diagnosed with Covid-19 infection,acute resp failure, intubated Hospitalist Physical - Physical exam Narrative exam: GEN: Intubated, HEENT: Normocephalic, atraumatic, Neck: supple, No JVD Lungs: Bilateral crackles, heart;S1 and S2 reg, no murmurs, rubs or gallop Abd:soft, non tender, non distended, normal bowel sounds Ext: No edema, no clubbing, no cyanosis, Neuro: intubated, unresponsive - Constitutional Vitals: Temp Pulse Resp BP Pulse Ox 99.5 F 95 H 20 142/70 100 02/10/20 03:38 02/10/20 08:30 02/10/20 08:30 02/10/20 08:30 02/10/20 08:30 General appearance: Present: no acute distress BREEZY score - Breezy Score Age > 65: (1) Yes Aspirin use within the Past 7 Days: (1) Yes 3 or more CAD Risk Factors: (1) Yes 2 or more Angina events in past 24 hrs: (1) Yes Known CAD with more than 50% Stenosis: (0) No Elevated Cardiac Markers: (0) No ST Deviation Greater than 0.5mm: (0) No BREEZY Score: 4 Results - Labs CBC & Chem 7: 02/09/20 04:48 02/09/20 04:48 Labs: Laboratory Last Values WBC 22.9 K/mm3 (4.5-11.0) H 02/09/20 04:48 RBC 2.86 M/mm3 (3.65-5.03) L 02/09/20 04:48 Hgb 8.3 gm/dl (10.1-14.3) L 02/09/20 04:48 Hct 26.2 % (30.3-42.9) L 02/09/20 04:48 MCV 92 fl (79-97) 02/09/20 04:48 MCH 29 pg (28-32) 02/09/20 04:48 MCHC 32 % (30-34) 02/09/20 04:48 RDW 18.0 % (13.2-15.2) H 02/09/20 04:48 Plt Count 507 K/mm3 (140-440) H 02/09/20 04:48 Lymph % (Auto) Solar Energy Specialist 02/03/20 03:59 [place] % (Auto) Solar Energy Specialist 02/03/20 03:59 Eos % (Auto) Solar Energy Specialist 02/03/20 03:59 Baso % (Auto) Solar Energy Specialist 02/03/20 03:59 Lymph # Solar Energy Specialist 02/03/20 03:59 [place] # Solar Energy Specialist 02/03/20 03:59 Eos # Solar Energy Specialist 02/03/20 03:59 Baso # Solar Energy Specialist 02/03/20 03:59 Add Manual Diff Complete 02/05/20 04:35 Total Counted 100 02/05/20 04:35 Seg Neutrophils % Solar Energy Specialist 02/05/20 04:35 Seg Neuts % (Manual) 96.0 % (40.0-70.0) H 02/05/20 04:35 Band Neutrophils % 0 % 02/05/20 04:35 Lymphocytes % (Manual) 1.0 % (13.4-35.0) L 02/05/20 04:35 Reactive Lymphs % (Man) 0 % 02/05/20 04:35 Monocytes % (Manual) 1.0 % (0.0-7.3) 02/05/20 04:35 Eosinophils % (Manual) 2.0 % (0.0-4.3) 02/05/20 04:35 Basophils % (Manual) 0 % (0.0-1.8) 02/05/20 04:35 Metamyelocytes % 0 % 02/05/20 04:35 Myelocytes % 0 % 02/05/20 04:35 Promyelocytes % 0 % 02/05/20 04:35 Blast Cells % 0 % 02/05/20 04:35 Nucleated RBC % Not Reportable 02/05/20 04:35 Seg Neutrophils # Solar Energy Specialist 02/03/20 03:59 Seg Neutrophils # Man 23.4 K/mm3 (1.8-7.7) H 02/05/20 04:35 Band Neutrophils # 0.0 K/mm3 02/05/20 04:35 Lymphocytes # (Manual) 0.2 K/mm3 (1.2-5.4) L 02/05/20 04:35 Abs React Lymphs (Man) 0.0 K/mm3 02/05/20 04:35 Monocytes # (Manual) 0.2 K/mm3 (0.0-0.8) 02/05/20 04:35 Eosinophils # (Manual) 0.5 K/mm3 (0.0-0.4) H 02/05/20 04:35 Basophils # (Manual) 0.0 K/mm3 (0.0-0.1) 02/05/20 04:35 Metamyelocytes # 0.0 K/mm3 02/05/20 04:35 Myelocytes # 0.0 K/mm3 02/05/20 04:35 Promyelocytes # 0.0 K/mm3 02/05/20 04:35 Blast Cells # 0.0 K/mm3 02/05/20 04:35 WBC Morphology Not Reportable 02/05/20 04:35 Hypersegmented Neuts Not Reportable 02/05/20 04:35 Hyposegmented Neuts Not Reportable 02/05/20 04:35 Hypogranular Neuts Not Reportable 02/05/20 04:35 Smudge Cells Not Reportable 02/05/20 04:35 Toxic Granulation Not Reportable 02/05/20 04:35 Toxic Vacuolation Not Reportable 02/05/20 04:35 Dohle Bodies Not Reportable 02/05/20 04:35 Pelger-Huet Anomaly Not Reportable 02/05/20 04:35 Armando Rods Not Reportable 02/05/20 04:35 Platelet Estimate Consistent w auto 02/05/20 04:35 Clumped Platelets Not Reportable 02/05/20 04:35 Plt Clumps, EDTA Not Reportable 02/05/20 04:35 Large Platelets Not Reportable 02/05/20 04:35 Giant Platelets Not Reportable 02/05/20 04:35 Platelet Satelliting Not Reportable 02/05/20 04:35 Plt Morphology Comment Not Reportable 02/05/20 04:35 RBC Morphology Not Reportable 02/05/20 04:35 Dimorphic RBCs Not Reportable 02/05/20 04:35 Polychromasia Not Reportable 02/05/20 04:35 Hypochromasia Rare 02/05/20 04:35 Poikilocytosis Not Reportable 02/05/20 04:35 Anisocytosis Few 02/05/20 04:35 Microcytosis Not Reportable 02/05/20 04:35 Macrocytosis Rare 02/05/20 04:35 Spherocytes Not Reportable 02/05/20 04:35 Pappenheimer Bodies Not Reportable 02/05/20 04:35 Sickle Cells Not Reportable 02/05/20 04:35 Target Cells Not Reportable 02/05/20 04:35 Tear Drop Cells Not Reportable 02/05/20 04:35 Ovalocytes Not Reportable 02/05/20 04:35 Helmet Cells Not Reportable 02/05/20 04:35 [place] Bodies Not Reportable 02/05/20 04:35 [place] Rings Not Reportable 02/05/20 04:35 Karen Cells Not Reportable 02/05/20 04:35 Bite Cells Not Reportable 02/05/20 04:35 Crenated Cell Not Reportable 02/05/20 04:35 Elliptocytes Not Reportable 02/05/20 04:35 Acanthocytes (Spur) Not Reportable 02/05/20 04:35 Rouleaux Not Reportable 02/05/20 04:35 Hemoglobin C Crystals Not Reportable 02/05/20 04:35 Schistocytes Not Reportable 02/05/20 04:35 Malaria parasites Not Reportable 02/05/20 04:35 Ney Bodies Not Reportable 02/05/20 04:35 Hem Pathologist Commnt No 02/05/20 04:35 PT 15.6 Sec. (12.2-14.9) H 01/09/20 12:55 INR 1.22 (0.87-1.13) H 01/09/20 12:55 APTT 31.5 Sec. (24.2-36.6) 01/09/20 12:55 D-Dimer 2896.73 ng/mlDDU (0-234) H 02/05/20 13:55 Heparin Anti-Xa Level 0.77 U.I./ml (0.3-0.7) H 02/02/20 05:44 ABG pH 7.351 pH Units (7.350-7.450) 02/08/20 20:45 ABG pCO2 58.7 mm Hg 02/08/20 20:45 ABG pO2 79.1 mm Hg (80.0-90.0) L 02/08/20 20:45 ABG HCO3 31.7 mmol/L (20.0-26.0) H 02/08/20 20:45 ABG O2 Saturation 95.6 % (95.0-99.0) 02/08/20 20:45 ABG O2 Content 17.0 (0.0-44) 02/08/20 20:45 ABG Base Excess 4.6 mmol/L (-2.0-3.0) H 02/08/20 20:45 ABG Hemoglobin 12.9 gm/dl (12.0-16.0) 02/08/20 20:45 ABG Carboxyhemoglobin 1.7 % (0.0-5.0) 02/08/20 20:45 ABG Methemoglobin 0.5 % (0.0-1.5) 02/08/20 20:45 Oxyhemoglobin 93.5 % (95.0-99.0) L 02/08/20 20:45 FiO2 40 % 02/08/20 20:45 Sodium 138 mmol/L (137-145) 02/09/20 04:48 Potassium 3.9 mmol/L (3.6-5.0) 02/09/20 04:48 Chloride 93.9 mmol/L (98-107) L 02/09/20 04:48 Carbon Dioxide 30 mmol/L (22-30) 02/09/20 04:48 Anion Gap 18 mmol/L 02/09/20 04:48 BUN 59 mg/dL (7-17) H 02/09/20 04:48 Creatinine 2.5 mg/dL (0.7-1.2) H 02/09/20 04:48 Estimated GFR 23 ml/min 02/09/20 04:48 BUN/Creatinine Ratio 24 % 02/09/20 04:48 Glucose 309 mg/dL (65-100) H 02/09/20 04:48 POC Glucose 300 (70-105) H 02/10/20 05:38 Hemoglobin A1c 5.0 % (4-6) 01/10/20 06:54 Calcium 8.8 mg/dL (8.4-10.2) 02/09/20 04:48 Phosphorus 3.30 mg/dL (2.5-4.5) 01/12/20 16:01 Magnesium 2.00 mg/dL (1.7-2.3) 01/13/20 06:11 Ferritin > 2000.0 ng/mL (13.0-400.0) H 02/05/20 13:55 Total Bilirubin 0.50 mg/dL (0.1-1.2) 02/02/20 05:44 Direct Bilirubin 0.3 mg/dL (0-0.2) H 02/02/20 05:44 Indirect Bilirubin 0.2 mg/dL 02/02/20 05:44 AST 179 units/L (5-40) H 02/02/20 05:44 ALT 106 units/L (7-56) H 02/02/20 05:44 Alkaline Phosphatase 557 units/L (35-129) H 02/02/20 05:44 Lactate Dehydrogenase 311 units/L (91-180) H 02/05/20 13:55 Troponin T 0.315 ng/mL (0.00-0.029) H* 01/10/20 06:54 C-Reactive Protein 17.30 mg/dL (0.00-1.30) H 02/05/20 13:55 NT-Pro-B Natriuret Pep 99439 pg/mL (0-900) H 01/09/20 12:55 Total Protein 6.1 g/dL (6.3-8.2) L 02/02/20 05:44 Albumin 2.3 g/dL (3.9-5) L 02/02/20 05:44 Albumin/Globulin Ratio 0.6 % 02/02/20 05:44 Triglycerides 56 mg/dL (2-149) 01/30/20 04:04 Cholesterol 123 mg/dL (50-199) 01/09/20 12:55 LDL Cholesterol Direct 66 mg/dL (50-130) 01/09/20 12:55 HDL Cholesterol 47 mg/dL (40-59) 01/09/20 12:55 Cholesterol/HDL Ratio 2.61 % 01/09/20 12:55 Random Vancomycin 23.9 ug/mL (0-40.0) 02/08/20 04:56 Coronavirus (PCR) Negative (Negative) 02/08/20 10:06 Hepatitis A IgM Ab Non-reactive (NonReactive) 01/21/20 23:40 Hep Bs Antigen Non-reactive (Negative) 01/21/20 23:40 Hep B Core IgM Ab Non-reactive (NonReactive) 01/21/20 23:40 Hepatitis C Antibody Non-reactive (NonReactive) 01/21/20 23:40 Miscellaneous Test See scanned result 01/11/20 Unknown Miscellaneous Test See scanned result 01/11/20 Unknown Blood Type O POSITIVE 02/04/20 10:47 Antibody Screen Negative 02/04/20 10:47 Crossmatch See Detail 02/04/20 10:47 Microbiology: Microbiology 02/04/20 Unknown Peripheral/Venous Blood Culture - Final NO GROWTH AFTER 5 DAYS 02/04/20 Unknown Peripheral/Venous Blood Culture - Final NO GROWTH AFTER 5 DAYS Pleitez/IV: Voiding Method Indwelling Catheter IV Catheter Type [Left Chest] Infusaport IV Catheter Type [Right Peripheral IV External Jugular] IV Catheter Type [Left INT / Saline Lock External Jugular] IV Catheter Type [Left Upper AV Graft arm] Active Medications - Current Medications Current Medications: Generic Name Dose Route Start Last Admin Trade Name Freq PRN Reason Stop Dose Admin Acetaminophen 650 mg 01/09/20 16:33 02/05/20 05:58 Tylenol PO 650 mg Q4H PRN Administration Pain MILD(1-3)/Fever >100.5/MEANS Lipase/Protease/Amylase 1 each 01/23/20 14:28 02/07/20 13:18 Pancreestrella Albarran 10,500 Unit FEEDTUBE 1 each PRN PRN Administration For Clogged Feeding Tube Atorvastatin Calcium 40 mg 01/09/20 22:00 02/09/20 21:04 Lipitor PO 40 mg QHS PHILLY Administration Dextrose 50 ml 01/23/20 07:26 02/02/20 11:33 D50w (25gm) Syringe IV 50 ml Q30MIN PRN Administration BLOOD GLUCOSE < 70 Dextrose 25 ml 01/24/20 08:58 01/24/20 13:41 D50w (25gm) Syringe IV 25 ml Q4H PRN Administration BG < 80 MG/DL Docusate Sodium 100 mg 01/25/20 22:00 02/09/20 21:04 Colace PO 100 mg BID PHILLY Administration Epoetin Helio 20,000 unit 02/04/20 12:00 02/04/20 13:00 Procrit SUB-Q 20,000 unit SILVERIO PHILLY Administration Famotidine 20 mg 01/09/20 22:00 02/09/20 09:42 Pepcid PO 20 mg DAILY PHILLY Administration Heparin Sodium (Porcine) 5,000 unit 02/07/20 10:00 02/09/20 21:05 Heparin SUB-Q 5,000 unit Q12HR PHILLY Administration Norepinephrine 4 mg in 250 mls @ 7.5 mls/hr 01/21/20 18:00 02/09/20 10:21 Levophed Drip 4 Mg/Ns 250 Ml IV 0 mcg/min TITR PHILLY 0 mls/hr Titration Protocol 2 MCG/MIN Propofol 1,000 mg in 100 mls @ 2.265 mls/hr 01/22/20 09:00 01/30/20 14:25 Diprivan 10 Mg/Ml IV 0 mcg/kg/min TITR PHILLY 0 mls/hr Titration Protocol 5 MCG/KG/MIN Sodium Chloride 100 mls @ 999 mls/hr 02/01/20 09:47 Nacl 0.9% IV SILVERIO PRN Hypotension Cefepime HCl 1 gm in 100 mls @ 200 mls/hr 02/04/20 14:00 02/09/20 09:42 Cefepime/Ns 1 Gm/100 Ml IV 200 mls/hr Q24HR PHILLY Administration Protocol Fluconazole 200 mg in 100 mls @ 100 mls/hr 02/04/20 13:00 02/09/20 09:41 Diflucan IV 100 mls/hr Q24HR PHILLY Administration Protocol Insulin Human Lispro 0 unit 02/07/20 12:00 02/10/20 05:34 Humalog SUB-Q 4 unit Q6HR PHILLY Administration Protocol Lorazepam 2 mg 01/23/20 15:36 Ativan IV Q10MIN PRN Agitation Methylprednisolone Sodium Succinate 40 mg 02/07/20 14:00 02/10/20 05:34 Solu-Medrol IV 40 mg Q8HR PHILLY Administration Ondansetron HCl 4 mg 01/09/20 16:33 01/20/20 10:19 Zofran IV 4 mg Q8H PRN Administration Nausea And Vomiting Simple Syrup 15 ml 01/23/20 14:28 Simple Syrup FEEDTUBE PRN PRN Hypoglycemia Simple Syrup 30 ml 01/23/20 14:28 Simple Syrup FEEDTUBE PRN PRN Hypoglycemia Sodium Bicarbonate 325 mg 01/23/20 14:28 Sodium Bicarbonate FEEDTUBE PRN PRN For Clogged Feeding Tube Sodium Chloride 10 ml 01/09/20 22:00 02/09/20 21:05 Sodium Chloride Flush Syringe 10 Ml IV 10 ml BID PHILLY Administration Sodium Chloride 10 ml 01/09/20 16:33 Sodium Chloride Flush Syringe 10 Ml IV PRN PRN LINE FLUSH Valsartan 80 mg 01/10/20 10:00 02/09/20 11:00 Diovan PO 80 mg DAILY PHILLY Administration Nutrition/Malnutrition Assess - Dietary Evaluation Nutrition/Malnutrition Findings: Nutrition Notes Start: 01/17/20 13:49 Freq: Status: Active Protocol: Document 02/06/20 14:10 LM (Rec: 02/07/20 14:12 LM [id number]) Nutrition Notes Initial or Follow up Reassessment Current Diagnosis CKD (stage V CKD),Diabetes, Hypertension,Heart Failure, Respiratory Failure Other Pertinent Diagnosis on HD, Bilat pneu, COVID-19 (+ ) Current Diet Nepro 1.8 at 35ml/hr Labs/Tests Na 136 Pertinent Medications Reviewed Height 5 ft 6 in Weight 78 kg Davis Body Weight (kg) 59.09 BMI 27.7 Subjective/Other Information Per RN notes TF is tolerating TF at goal. Percent of energy/protein needs met: 94%/75% Burn Absent Trauma Absent Current % PO Negligible Minimum of two criteria Yes Fluid Accumulation Mild (non-severe) Reduced [place] Strength Measurably Reduced (severe) #1 Nutrition Diagnosis Malnutrition Diagnosis Progress(for reassessment Continues documentation) Is patient on ventilator? No Calculation Used for Recommendations [place] Additional Notes Protein: 91-151g (1.2-2g/kg) Fluid: per MD Nutrition Intervention Change Diet Order: Continue TF Nutrition Support: Nepro 1.8 at 35ml/hr (goal rate) Flush 50ml q4hr for hyponatremia Flush 150ml q4h once hyponatremia resolves Kcal 1,512 Protein (gm) 68 Fluid (mL) 611 Goal #1 TF tolerance Goal #2 Meet at least 75% of energy and protein needs via TF Anticipated Discharge Needs: unable to determine at this time Follow-Up By: 02/12/20 Additional Comments F/U for TF tolerance, Na lab
[2020-02-10] MEDS: CEFEPIME/NS 1 GM/100 ML 1 GM/100 ML BAG IV SCH (09:04)
[2020-02-10] MEDS: VALSARTAN 40 MG TAB PO SCH (09:04)
[2020-02-10] MEDS: FLUCONAZOLE 200 MG 200 MG/100 ML BAG IV SCH (09:04)
[2020-02-10] MEDS: DOCUSATE SODIUM 100 MG/10 ML ORAL LIQD PO SCH ×2 (09:04→22:09)
[2020-02-10] MEDS: HEPARIN 5,000 UNIT/1 ML VIAL SUB-Q SCH ×2 (09:06→22:09)
[2020-02-10] MEDS: FAMOTIDINE 20 MG TAB PO SCH (09:06)
--- NOTE | 2020-02-10 11:25 | Progress Note ---
Assessment and Plan 64 y/o female with COVID positive, viral pneumonia with some pulmonary vascular congestion superimposed. 1. Back on PSV this am. Will ask RT to make sure they follow volumes closely. ABG in am. 2. HD per renal. will likely do again on Tuesday. 3. Changed back to prophylactic dosing for VTE as not confirmed the presence of VTE 4. Will speak with CM about trach and peg requirements for LTACH. If needs to be done here will consult surgery on Tuesday. WIll also ask ID if isolation still has to continue with negative COVID testing. CCT 31 minutes. Subjective Date of service: 02/10/20 Principal diagnosis: Pneumonia Interval history: Still not awake but tolerating PSV this am, 30/03. No ABG drawn this am. Patient did get hypercapnic on PSV the last long stent. Objective Vital Signs - 12hr 02/09/20 02/09/20 02/09/20 23:23 23:31 23:38 Temperature 97.2 F L Pulse Rate 96 H 100 H Pulse Rate [ From Monitor] Respiratory 23 24 Rate Blood Pressure 136/67 125/68 O2 Sat by Pulse 100 100 Oximetry 02/09/20 02/10/20 02/10/20 23:45 00:00 00:15 Temperature Pulse Rate 96 H 100 H 98 H Pulse Rate [ 98 H From Monitor] Respiratory 21 21 22 Rate Blood Pressure 125/68 138/65 138/65 O2 Sat by Pulse 100 100 100 Oximetry 02/10/20 02/10/20 02/10/20 00:30 00:45 01:00 Temperature Pulse Rate 96 H 96 H 97 H Pulse Rate [ From Monitor] Respiratory 20 23 25 H Rate Blood Pressure 129/63 138/65 132/64 O2 Sat by Pulse 100 100 100 Oximetry 02/10/20 02/10/20 02/10/20 01:03 01:15 01:31 Temperature Pulse Rate 98 H 97 H 97 H Pulse Rate [ From Monitor] Respiratory 41 H 25 H Rate Blood Pressure 132/64 132/64 129/61 O2 Sat by Pulse 99 100 100 Oximetry 02/10/20 02/10/20 02/10/20 01:45 02:00 02:15 Temperature Pulse Rate 97 H 96 H 95 H Pulse Rate [ From Monitor] Respiratory 21 18 23 Rate Blood Pressure 129/61 122/57 122/57 O2 Sat by Pulse 100 100 100 Oximetry 02/10/20 02/10/20 02/10/20 02:30 02:45 03:00 Temperature Pulse Rate 95 H 96 H 95 H Pulse Rate [ From Monitor] Respiratory 25 H 22 20 Rate Blood Pressure 119/61 122/57 125/60 O2 Sat by Pulse 100 100 100 Oximetry 02/10/20 02/10/20 02/10/20 03:15 03:30 03:38 Temperature 99.5 F Pulse Rate 94 H 94 H Pulse Rate [ From Monitor] Respiratory 20 27 H Rate Blood Pressure 125/60 118/60 O2 Sat by Pulse 100 100 Oximetry 02/10/20 02/10/20 02/10/20 03:45 04:00 04:15 Temperature Pulse Rate 95 H 94 H 91 H Pulse Rate [ From Monitor] Respiratory 23 20 22 Rate Blood Pressure 118/60 122/64 122/64 O2 Sat by Pulse 100 100 100 Oximetry 02/10/20 02/10/20 02/10/20 04:30 04:45 05:00 Temperature Pulse Rate 95 H 95 H 88 Pulse Rate [ From Monitor] Respiratory 22 23 20 Rate Blood Pressure 121/65 121/65 111/60 O2 Sat by Pulse 99 100 100 Oximetry 02/10/20 02/10/20 02/10/20 05:15 05:30 05:45 Temperature Pulse Rate 85 90 89 Pulse Rate [ From Monitor] Respiratory 23 21 22 Rate Blood Pressure 121/65 131/70 131/70 O2 Sat by Pulse 100 99 100 Oximetry 02/10/20 02/10/20 02/10/20 06:00 06:15 06:30 Temperature Pulse Rate 88 87 85 Pulse Rate [ From Monitor] Respiratory 22 26 H 26 H Rate Blood Pressure 122/64 122/64 126/57 O2 Sat by Pulse 100 100 100 Oximetry 02/10/20 02/10/20 02/10/20 06:45 07:00 07:15 Temperature Pulse Rate 83 91 H 93 H Pulse Rate [ From Monitor] Respiratory 25 H 20 21 Rate Blood Pressure 126/57 138/72 138/72 O2 Sat by Pulse 100 100 100 Oximetry 02/10/20 02/10/20 02/10/20 07:30 07:45 08:00 Temperature 98.4 F Pulse Rate 93 H 94 H 94 H Pulse Rate [ From Monitor] Respiratory 24 20 20 Rate Blood Pressure 141/74 141/74 146/72 O2 Sat by Pulse 100 100 100 Oximetry 02/10/20 02/10/20 02/10/20 08:15 08:30 08:35 Temperature Pulse Rate 96 H 95 H 105 H Pulse Rate [ From Monitor] Respiratory 20 20 22 Rate Blood Pressure 146/72 142/70 161/77 O2 Sat by Pulse 100 100 99 Oximetry 02/10/20 02/10/20 02/10/20 08:45 09:01 09:04 Temperature Pulse Rate 98 H 105 H 104 H Pulse Rate [ From Monitor] Respiratory 18 20 Rate Blood Pressure 142/70 161/77 161/77 O2 Sat by Pulse 96 99 Oximetry 02/10/20 02/10/20 02/10/20 09:15 09:31 09:45 Temperature Pulse Rate 105 H 105 H 105 H Pulse Rate [ From Monitor] Respiratory 20 20 19 Rate Blood Pressure 161/77 159/69 159/69 O2 Sat by Pulse 100 100 100 Oximetry 02/10/20 02/10/20 02/10/20 10:01 10:15 10:30 Temperature Pulse Rate 104 H 105 H 106 H Pulse Rate [ From Monitor] Respiratory 18 21 17 Rate Blood Pressure 146/64 146/64 155/67 O2 Sat by Pulse 100 99 100 Oximetry Constitutional: other (orally intubated, not sedated currently on vent. on AC 450 50) Eyes: non-icteric ENT: oropharynx moist Neck: supple Effort: normal Ascultation: Bilateral: rales Cardiovascular: regular rate and rhythm (no mrg) Gastrointestinal: normoactive bowel sounds, soft, non-tender, non-distended Integumentary: normal Extremities: no cyanosis, no edema, pink and warm Neurologic: unable to assess Psychiatric: mood appropriate, affect normal CBC and BMP: 02/09/20 04:48 02/09/20 04:48 ABG, PT/INR, D-dimer: ABG ABG pH 7.351 pH Units (7.350-7.450) 02/08/20 20:45 ABG pCO2 58.7 mm Hg 02/08/20 20:45 ABG pO2 79.1 mm Hg (80.0-90.0) L 02/08/20 20:45 ABG O2 Saturation 95.6 % (95.0-99.0) 02/08/20 20:45 PT/INR, D-dimer PT 15.6 Sec. (12.2-14.9) H 01/09/20 12:55 INR 1.22 (0.87-1.13) H 01/09/20 12:55 D-Dimer 2896.73 ng/mlDDU (0-234) H 02/05/20 13:55 Abnormal lab findings: Abnormal Labs 01/09/20 01/09/20 01/09/20 12:55 12:55 12:55 WBC 4.4 L RBC 3.44 L Hgb Hct MCV RDW 17.0 H Plt Count Lymph % (Auto) 6.8 L Bath % (Auto) 13.6 H Lymph # 0.3 L Seg Neutrophils % 79.0 H Seg Neuts % (Manual) Lymphocytes % (Manual) Nucleated RBC % Seg Neutrophils # Man Lymphocytes # (Manual) Monocytes # (Manual) Eosinophils # (Manual) PT 15.6 H INR 1.22 H D-Dimer Heparin Anti-Xa Level ABG pH ABG pO2 ABG HCO3 ABG O2 Saturation ABG Base Excess ABG Hemoglobin Oxyhemoglobin Sodium 130 L Potassium Chloride 88.9 L Carbon Dioxide 20 L BUN 41 H Creatinine 7.6 H Glucose 115 H POC Glucose Calcium Magnesium Ferritin Direct Bilirubin AST ALT Alkaline Phosphatase 153 H Lactate Dehydrogenase Troponin T 0.382 H* C-Reactive Protein NT-Pro-B Natriuret Pep 91316 H Total Protein Albumin 3.2 L Crossmatch 01/09/20 01/10/20 01/10/20 20:14 00:16 06:54 WBC 3.3 L RBC 3.00 L Hgb 9.2 L Hct 27.8 L MCV RDW 17.2 H Plt Count Lymph % (Auto) 8.9 L Bath % (Auto) 11.5 H Lymph # 0.3 L Seg Neutrophils % 79.1 H Seg Neuts % (Manual) Lymphocytes % (Manual) Nucleated RBC % Seg Neutrophils # Man Lymphocytes # (Manual) Monocytes # (Manual) Eosinophils # (Manual) PT INR D-Dimer Heparin Anti-Xa Level ABG pH ABG pO2 ABG HCO3 ABG O2 Saturation ABG Base Excess ABG Hemoglobin Oxyhemoglobin Sodium Potassium Chloride Carbon Dioxide BUN Creatinine Glucose POC Glucose Calcium Magnesium Ferritin Direct Bilirubin AST ALT Alkaline Phosphatase Lactate Dehydrogenase Troponin T 0.349 H* 0.328 H* C-Reactive Protein NT-Pro-B Natriuret Pep Total Protein Albumin Crossmatch 01/10/20 01/10/20 01/11/20 06:54 06:54 16:45 WBC RBC Hgb Hct MCV RDW Plt Count Lymph % (Auto) Bath % (Auto) Lymph # Seg Neutrophils % Seg Neuts % (Manual) Lymphocytes % (Manual) Nucleated RBC % Seg Neutrophils # Man Lymphocytes # (Manual) Monocytes # (Manual) Eosinophils # (Manual) PT INR D-Dimer Heparin Anti-Xa Level ABG pH ABG pO2 ABG HCO3 ABG O2 Saturation ABG Base Excess ABG Hemoglobin Oxyhemoglobin Sodium 133 L Potassium Chloride 90.6 L Carbon Dioxide BUN 50 H Creatinine 8.4 H Glucose 101 H POC Glucose 106 H Calcium 8.1 L Magnesium Ferritin Direct Bilirubin AST ALT Alkaline Phosphatase 148 H Lactate Dehydrogenase Troponin T 0.315 H* C-Reactive Protein NT-Pro-B Natriuret Pep Total Protein 5.4 L Albumin 2.7 L Crossmatch 01/12/20 01/13/20 01/13/20 16:01 06:11 06:11 WBC 3.1 L RBC 3.25 L Hgb 9.8 L Hct MCV RDW 17.2 H Plt Count 136 L Lymph % (Auto) Bath % (Auto) Lymph # Seg Neutrophils % Seg Neuts % (Manual) Lymphocytes % (Manual) Nucleated RBC % Seg Neutrophils # Man Lymphocytes # (Manual) Monocytes # (Manual) Eosinophils # (Manual) PT INR D-Dimer Heparin Anti-Xa Level ABG pH ABG pO2 ABG HCO3 ABG O2 Saturation ABG Base Excess ABG Hemoglobin Oxyhemoglobin Sodium 135 L Potassium Chloride 93.4 L Carbon Dioxide BUN 19 H Creatinine 4.5 H Glucose 120 H POC Glucose Calcium 7.8 L Magnesium 1.40 L Ferritin Direct Bilirubin AST ALT Alkaline Phosphatase Lactate Dehydrogenase Troponin T C-Reactive Protein NT-Pro-B Natriuret Pep Total Protein Albumin Crossmatch 01/16/20 01/16/20 01/16/20 08:35 11:49 14:11 WBC RBC Hgb Hct MCV RDW Plt Count Lymph % (Auto) Bath % (Auto) Lymph # Seg Neutrophils % Seg Neuts % (Manual) Lymphocytes % (Manual) Nucleated RBC % Seg Neutrophils # Man Lymphocytes # (Manual) Monocytes # (Manual) Eosinophils # (Manual) PT INR D-Dimer Heparin Anti-Xa Level ABG pH ABG pO2 48.4 L ABG HCO3 30.5 H ABG O2 Saturation 81.9 L ABG Base Excess 4.6 H ABG Hemoglobin 10.5 L Oxyhemoglobin 80.1 L Sodium Potassium Chloride Carbon Dioxide BUN Creatinine Glucose POC Glucose 126 H 119 H Calcium Magnesium Ferritin Direct Bilirubin AST ALT Alkaline Phosphatase Lactate Dehydrogenase Troponin T C-Reactive Protein NT-Pro-B Natriuret Pep Total Protein Albumin Crossmatch 01/16/20 01/16/20 01/16/20 15:38 15:38 15:38 WBC RBC Hgb Hct MCV RDW Plt Count Lymph % (Auto) Bath % (Auto) Lymph # Seg Neutrophils % Seg Neuts % (Manual) Lymphocytes % (Manual) Nucleated RBC % Seg Neutrophils # Man Lymphocytes # (Manual) Monocytes # (Manual) Eosinophils # (Manual) PT INR D-Dimer 1104.64 H Heparin Anti-Xa Level ABG pH ABG pO2 ABG HCO3 ABG O2 Saturation ABG Base Excess ABG Hemoglobin Oxyhemoglobin Sodium Potassium Chloride Carbon Dioxide BUN Creatinine Glucose POC Glucose Calcium Magnesium Ferritin > 2000.0 H Direct Bilirubin AST ALT Alkaline Phosphatase Lactate Dehydrogenase 690 H Troponin T C-Reactive Protein 24.10 H NT-Pro-B Natriuret Pep Total Protein Albumin Crossmatch 01/16/20 01/18/20 01/18/20 18:11 06:25 06:25 WBC RBC 3.15 L Hgb 9.4 L Hct 29.4 L MCV RDW 17.5 H Plt Count 135 L Lymph % (Auto) 3.8 L Bath % (Auto) Lymph # 0.2 L Seg Neutrophils % 88.8 H Seg Neuts % (Manual) Lymphocytes % (Manual) Nucleated RBC % Seg Neutrophils # Man Lymphocytes # (Manual) Monocytes # (Manual) Eosinophils # (Manual) PT INR D-Dimer Heparin Anti-Xa Level ABG pH ABG pO2 ABG HCO3 ABG O2 Saturation ABG Base Excess ABG Hemoglobin Oxyhemoglobin Sodium Potassium Chloride 96.8 L Carbon Dioxide BUN 26 H Creatinine 4.2 H Glucose 115 H POC Glucose 130 H Calcium 8.2 L Magnesium Ferritin Direct Bilirubin AST ALT Alkaline Phosphatase Lactate Dehydrogenase 537 H Troponin T C-Reactive Protein 17.10 H NT-Pro-B Natriuret Pep Total Protein Albumin Crossmatch 01/18/20 01/18/20 01/18/20 06:25 06:25 12:15 WBC RBC Hgb Hct MCV RDW Plt Count Lymph % (Auto) Bath % (Auto) Lymph # Seg Neutrophils % Seg Neuts % (Manual) Lymphocytes % (Manual) Nucleated RBC % Seg Neutrophils # Man Lymphocytes # (Manual) Monocytes # (Manual) Eosinophils # (Manual) PT INR D-Dimer 938.03 H Heparin Anti-Xa Level ABG pH ABG pO2 66.5 L ABG HCO3 30.1 H ABG O2 Saturation 93.2 L ABG Base Excess 4.6 H ABG Hemoglobin 10.0 L Oxyhemoglobin 91.3 L Sodium Potassium Chloride Carbon Dioxide BUN Creatinine Glucose POC Glucose Calcium Magnesium Ferritin 3105.0 H Direct Bilirubin AST ALT Alkaline Phosphatase Lactate Dehydrogenase Troponin T C-Reactive Protein NT-Pro-B Natriuret Pep Total Protein Albumin Crossmatch 01/20/20 01/20/20 01/20/20 07:37 07:37 07:37 WBC RBC Hgb Hct MCV RDW Plt Count Lymph % (Auto) Bath % (Auto) Lymph # Seg Neutrophils % Seg Neuts % (Manual) Lymphocytes % (Manual) Nucleated RBC % Seg Neutrophils # Man Lymphocytes # (Manual) Monocytes # (Manual) Eosinophils # (Manual) PT INR D-Dimer 2072.25 H Heparin Anti-Xa Level ABG pH ABG pO2 ABG HCO3 ABG O2 Saturation ABG Base Excess ABG Hemoglobin Oxyhemoglobin Sodium Potassium Chloride Carbon Dioxide BUN Creatinine Glucose POC Glucose Calcium Magnesium Ferritin 1826.0 H Direct Bilirubin AST ALT Alkaline Phosphatase Lactate Dehydrogenase 496 H Troponin T C-Reactive Protein 19.30 H NT-Pro-B Natriuret Pep Total Protein Albumin Crossmatch 01/20/20 01/21/20 01/21/20 17:30 03:59 17:35 WBC RBC Hgb Hct MCV RDW Plt Count Lymph % (Auto) Bath % (Auto) Lymph # Seg Neutrophils % Seg Neuts % (Manual) Lymphocytes % (Manual) Nucleated RBC % Seg Neutrophils # Man Lymphocytes # (Manual) Monocytes # (Manual) Eosinophils # (Manual) PT INR D-Dimer Heparin Anti-Xa Level ABG pH ABG pO2 61.1 L 67.4 L ABG HCO3 29.9 H 26.2 H ABG O2 Saturation 91.7 L 93.4 L ABG Base Excess 4.9 H ABG Hemoglobin 9.0 L 9.1 L Oxyhemoglobin 89.5 L 91.1 L Sodium 136 L Potassium Chloride Carbon Dioxide BUN 36 H Creatinine 4.9 H Glucose POC Glucose Calcium Magnesium Ferritin Direct Bilirubin AST ALT Alkaline Phosphatase Lactate Dehydrogenase Troponin T C-Reactive Protein NT-Pro-B Natriuret Pep Total Protein Albumin Crossmatch 01/21/20 01/22/20 01/22/20 Unknown 03:41 03:41 WBC RBC Hgb Hct MCV RDW Plt Count Lymph % (Auto) Bath % (Auto) Lymph # Seg Neutrophils % Seg Neuts % (Manual) Lymphocytes % (Manual) Nucleated RBC % Seg Neutrophils # Man Lymphocytes # (Manual) Monocytes # (Manual) Eosinophils # (Manual) PT INR D-Dimer Heparin Anti-Xa Level ABG pH 7.465 H ABG pO2 48.9 L ABG HCO3 26.6 H ABG O2 Saturation 85.7 L ABG Base Excess ABG Hemoglobin 10.4 L Oxyhemoglobin 83.5 L Sodium Potassium Chloride Carbon Dioxide BUN Creatinine Glucose POC Glucose Calcium Magnesium Ferritin 6071.0 H Direct Bilirubin AST ALT Alkaline Phosphatase Lactate Dehydrogenase 963 H Troponin T C-Reactive Protein 30.00 H NT-Pro-B Natriuret Pep Total Protein Albumin Crossmatch 01/22/20 01/22/20 01/22/20 03:41 07:47 11:20 WBC RBC Hgb Hct MCV RDW Plt Count Lymph % (Auto) Bath % (Auto) Lymph # Seg Neutrophils % Seg Neuts % (Manual) Lymphocytes % (Manual) Nucleated RBC % Seg Neutrophils # Man Lymphocytes # (Manual) Monocytes # (Manual) Eosinophils # (Manual) PT INR D-Dimer > 58021 H Heparin Anti-Xa Level ABG pH ABG pO2 66.7 L ABG HCO3 28.7 H ABG O2 Saturation 91.9 L ABG Base Excess ABG Hemoglobin 9.1 L Oxyhemoglobin 89.5 L Sodium Potassium Chloride 94.3 L Carbon Dioxide BUN 53 H Creatinine 6.5 H Glucose POC Glucose Calcium Magnesium Ferritin Direct Bilirubin AST ALT Alkaline Phosphatase Lactate Dehydrogenase Troponin T C-Reactive Protein NT-Pro-B Natriuret Pep Total Protein Albumin Crossmatch 01/22/20 01/22/20 01/23/20 11:49 Unknown 04:55 WBC 15.1 H RBC 3.05 L Hgb 8.8 L Hct 28.3 L MCV RDW 17.8 H Plt Count 125 L Lymph % (Auto) Bath % (Auto) Lymph # Seg Neutrophils % Seg Neuts % (Manual) Lymphocytes % (Manual) Nucleated RBC % Seg Neutrophils # Man Lymphocytes # (Manual) Monocytes # (Manual) Eosinophils # (Manual) PT INR D-Dimer Heparin Anti-Xa Level ABG pH 7.340 L ABG pO2 77.7 L 136.3 H ABG HCO3 27.6 H 28.8 H ABG O2 Saturation ABG Base Excess ABG Hemoglobin 9.3 L 10.9 L Oxyhemoglobin 94.2 L Sodium Potassium Chloride Carbon Dioxide BUN Creatinine Glucose POC Glucose Calcium Magnesium Ferritin Direct Bilirubin AST ALT Alkaline Phosphatase Lactate Dehydrogenase Troponin T C-Reactive Protein NT-Pro-B Natriuret Pep Total Protein Albumin Crossmatch 01/23/20 01/23/20 01/23/20 06:23 07:07 12:23 WBC RBC Hgb Hct MCV RDW Plt Count Lymph % (Auto) Bath % (Auto) Lymph # Seg Neutrophils % Seg Neuts % (Manual) Lymphocytes % (Manual) Nucleated RBC % Seg Neutrophils # Man Lymphocytes # (Manual) Monocytes # (Manual) Eosinophils # (Manual) PT INR D-Dimer Heparin Anti-Xa Level ABG pH ABG pO2 ABG HCO3 ABG O2 Saturation ABG Base Excess ABG Hemoglobin Oxyhemoglobin Sodium Potassium Chloride Carbon Dioxide BUN Creatinine Glucose POC Glucose 57 L 127 H 131 H Calcium Magnesium Ferritin Direct Bilirubin AST ALT Alkaline Phosphatase Lactate Dehydrogenase Troponin T C-Reactive Protein NT-Pro-B Natriuret Pep Total Protein Albumin Crossmatch 01/23/20 01/23/20 01/24/20 Unknown Unknown 04:00 WBC 16.2 H RBC 3.08 L Hgb 8.9 L Hct 28.6 L MCV RDW 17.8 H Plt Count 139 L Lymph % (Auto) Bath % (Auto) Lymph # Seg Neutrophils % Seg Neuts % (Manual) Lymphocytes % (Manual) Nucleated RBC % Seg Neutrophils # Man Lymphocytes # (Manual) Monocytes # (Manual) Eosinophils # (Manual) PT INR D-Dimer Heparin Anti-Xa Level < 0.10 L ABG pH ABG pO2 ABG HCO3 ABG O2 Saturation ABG Base Excess ABG Hemoglobin Oxyhemoglobin Sodium Potassium Chloride Carbon Dioxide BUN Creatinine Glucose POC Glucose Calcium Magnesium Ferritin 4195.0 H Direct Bilirubin AST ALT Alkaline Phosphatase Lactate Dehydrogenase Troponin T C-Reactive Protein NT-Pro-B Natriuret Pep Total Protein Albumin Crossmatch 01/24/20 01/24/2001/23/20 04:00 04:00 04:00 WBC RBC Hgb Hct MCV RDW Plt Count Lymph % (Auto) Bath % (Auto) Lymph # Seg Neutrophils % Seg Neuts % (Manual) Lymphocytes % (Manual) Nucleated RBC % Seg Neutrophils # Man Lymphocytes # (Manual) Monocytes # (Manual) Eosinophils # (Manual) PT INR D-Dimer 5783.11 H Heparin Anti-Xa Level ABG pH 7.188 L* ABG pO2 70.8 L ABG HCO3 32.2 H ABG O2 Saturation 90.4 L ABG Base Excess ABG Hemoglobin 8.5 L Oxyhemoglobin 88.1 L Sodium Potassium Chloride Carbon Dioxide BUN Creatinine Glucose POC Glucose Calcium Magnesium Ferritin Direct Bilirubin AST ALT Alkaline Phosphatase Lactate Dehydrogenase 474 H Troponin T C-Reactive Protein 29.80 H NT-Pro-B Natriuret Pep Total Protein Albumin Crossmatch 01/24/20 01/24/20 01/24/20 05:20 05:51 09:14 WBC RBC Hgb Hct MCV RDW Plt Count Lymph % (Auto) Bath % (Auto) Lymph # Seg Neutrophils % Seg Neuts % (Manual) Lymphocytes % (Manual) Nucleated RBC % Seg Neutrophils # Man Lymphocytes # (Manual) Monocytes # (Manual) Eosinophils # (Manual) PT INR D-Dimer Heparin Anti-Xa Level ABG pH 7.214 L ABG pO2 71.7 L ABG HCO3 31.5 H ABG O2 Saturation 91.8 L ABG Base Excess ABG Hemoglobin 9.1 L Oxyhemoglobin 89.3 L Sodium Potassium Chloride Carbon Dioxide BUN Creatinine Glucose POC Glucose 50 L 53 L Calcium Magnesium Ferritin Direct Bilirubin AST ALT Alkaline Phosphatase Lactate Dehydrogenase Troponin T C-Reactive Protein NT-Pro-B Natriuret Pep Total Protein Albumin Crossmatch 01/24/20 01/24/20 01/24/20 15:10 18:04 21:10 WBC RBC Hgb Hct MCV RDW Plt Count Lymph % (Auto) Bath % (Auto) Lymph # Seg Neutrophils % Seg Neuts % (Manual) Lymphocytes % (Manual) Nucleated RBC % Seg Neutrophils # Man Lymphocytes # (Manual) Monocytes # (Manual) Eosinophils # (Manual) PT INR D-Dimer Heparin Anti-Xa Level ABG pH ABG pO2 ABG HCO3 ABG O2 Saturation ABG Base Excess ABG Hemoglobin Oxyhemoglobin Sodium Potassium Chloride Carbon Dioxide BUN Creatinine Glucose POC Glucose 114 H 51 L 144 H Calcium Magnesium Ferritin Direct Bilirubin AST ALT Alkaline Phosphatase Lactate Dehydrogenase Troponin T C-Reactive Protein NT-Pro-B Natriuret Pep Total Protein Albumin Crossmatch 01/24/20 01/25/20 01/25/20 Unknown 00:32 03:50 WBC 13.0 H RBC 3.10 L Hgb 9.2 L Hct 29.0 L MCV RDW 17.7 H Plt Count Lymph % (Auto) Bath % (Auto) Lymph # Seg Neutrophils % Seg Neuts % (Manual) 92.0 H Lymphocytes % (Manual) 5.0 L Nucleated RBC % Seg Neutrophils # Man 12.0 H Lymphocytes # (Manual) 0.7 L Monocytes # (Manual) Eosinophils # (Manual) PT INR D-Dimer Heparin Anti-Xa Level ABG pH 7.291 L ABG pO2 71.3 L ABG HCO3 30.6 H ABG O2 Saturation 93.6 L ABG Base Excess 3.3 H ABG Hemoglobin 8.1 L Oxyhemoglobin 91.2 L Sodium Potassium Chloride Carbon Dioxide BUN Creatinine Glucose POC Glucose 114 H Calcium Magnesium Ferritin Direct Bilirubin AST ALT Alkaline Phosphatase Lactate Dehydrogenase Troponin T C-Reactive Protein NT-Pro-B Natriuret Pep Total Protein Albumin Crossmatch 01/25/20 01/25/20 01/25/20 04:22 06:05 17:28 WBC RBC Hgb Hct MCV RDW Plt Count Lymph % (Auto) Bath % (Auto) Lymph # Seg Neutrophils % Seg Neuts % (Manual) Lymphocytes % (Manual) Nucleated RBC % Seg Neutrophils # Man Lymphocytes # (Manual) Monocytes # (Manual) Eosinophils # (Manual) PT INR D-Dimer Heparin Anti-Xa Level ABG pH 7.304 L ABG pO2 69.5 L ABG HCO3 29.7 H ABG O2 Saturation 93.2 L ABG Base Excess ABG Hemoglobin 8.7 L Oxyhemoglobin 90.7 L Sodium Potassium Chloride Carbon Dioxide BUN Creatinine Glucose POC Glucose 136 H 127 H Calcium Magnesium Ferritin Direct Bilirubin AST ALT Alkaline Phosphatase Lactate Dehydrogenase Troponin T C-Reactive Protein NT-Pro-B Natriuret Pep Total Protein Albumin Crossmatch 01/26/20 01/26/20 01/26/20 00:20 02:31 02:31 WBC RBC Hgb Hct MCV RDW Plt Count Lymph % (Auto) Bath % (Auto) Lymph # Seg Neutrophils % Seg Neuts % (Manual) Lymphocytes % (Manual) Nucleated RBC % Seg Neutrophils # Man Lymphocytes # (Manual) Monocytes # (Manual) Eosinophils # (Manual) PT INR D-Dimer Heparin Anti-Xa Level ABG pH ABG pO2 ABG HCO3 ABG O2 Saturation ABG Base Excess ABG Hemoglobin Oxyhemoglobin Sodium Potassium Chloride Carbon Dioxide BUN Creatinine Glucose POC Glucose 127 H Calcium Magnesium Ferritin 3764.0 H Direct Bilirubin AST ALT Alkaline Phosphatase Lactate Dehydrogenase 393 H Troponin T C-Reactive Protein 28.60 H NT-Pro-B Natriuret Pep Total Protein Albumin Crossmatch 01/26/20 01/26/20 01/26/20 02:31 04:45 05:24 WBC RBC Hgb Hct MCV RDW Plt Count Lymph % (Auto) Bath % (Auto) Lymph # Seg Neutrophils % Seg Neuts % (Manual) Lymphocytes % (Manual) Nucleated RBC % Seg Neutrophils # Man Lymphocytes # (Manual) Monocytes # (Manual) Eosinophils # (Manual) PT INR D-Dimer 3828.76 H Heparin Anti-Xa Level ABG pH ABG pO2 ABG HCO3 30.8 H ABG O2 Saturation ABG Base Excess 4.9 H ABG Hemoglobin 7.4 L Oxyhemoglobin 94.6 L Sodium Potassium Chloride Carbon Dioxide BUN Creatinine Glucose POC Glucose 121 H Calcium Magnesium Ferritin Direct Bilirubin AST ALT Alkaline Phosphatase Lactate Dehydrogenase Troponin T C-Reactive Protein NT-Pro-B Natriuret Pep Total Protein Albumin Crossmatch 01/26/20 01/26/20 01/26/20 10:40 12:36 18:10 WBC RBC Hgb Hct MCV RDW Plt Count Lymph % (Auto) Bath % (Auto) Lymph # Seg Neutrophils % Seg Neuts % (Manual) Lymphocytes % (Manual) Nucleated RBC % Seg Neutrophils # Man Lymphocytes # (Manual) Monocytes # (Manual) Eosinophils # (Manual) PT INR D-Dimer Heparin Anti-Xa Level ABG pH ABG pO2 ABG HCO3 ABG O2 Saturation ABG Base Excess ABG Hemoglobin Oxyhemoglobin Sodium Potassium Chloride Carbon Dioxide BUN Creatinine Glucose POC Glucose 119 H 126 H 159 H Calcium Magnesium Ferritin Direct Bilirubin AST ALT Alkaline Phosphatase Lactate Dehydrogenase Troponin T C-Reactive Protein NT-Pro-B Natriuret Pep Total Protein Albumin Crossmatch 01/27/20 01/27/20 01/27/20 03:45 06:15 12:19 WBC RBC Hgb Hct MCV RDW Plt Count Lymph % (Auto) Bath % (Auto) Lymph # Seg Neutrophils % Seg Neuts % (Manual) Lymphocytes % (Manual) Nucleated RBC % Seg Neutrophils # Man Lymphocytes # (Manual) Monocytes # (Manual) Eosinophils # (Manual) PT INR D-Dimer Heparin Anti-Xa Level ABG pH 7.307 L ABG pO2 91.1 H ABG HCO3 30.5 H ABG O2 Saturation ABG Base Excess 3.4 H ABG Hemoglobin 8.7 L Oxyhemoglobin 94.3 L Sodium Potassium Chloride Carbon Dioxide BUN Creatinine Glucose POC Glucose 147 H 164 H Calcium Magnesium Ferritin Direct Bilirubin AST ALT Alkaline Phosphatase Lactate Dehydrogenase Troponin T C-Reactive Protein NT-Pro-B Natriuret Pep Total Protein Albumin Crossmatch 01/27/20 01/28/20 01/28/20 17:42 00:29 04:34 WBC RBC Hgb Hct MCV RDW Plt Count Lymph % (Auto) Bath % (Auto) Lymph # Seg Neutrophils % Seg Neuts % (Manual) Lymphocytes % (Manual) Nucleated RBC % Seg Neutrophils # Man Lymphocytes # (Manual) Monocytes # (Manual) Eosinophils # (Manual) PT INR D-Dimer Heparin Anti-Xa Level ABG pH ABG pO2 ABG HCO3 ABG O2 Saturation ABG Base Excess ABG Hemoglobin Oxyhemoglobin Sodium Potassium Chloride Carbon Dioxide BUN Creatinine Glucose POC Glucose 149 H 178 H Calcium Magnesium Ferritin > 2000.0 H Direct Bilirubin AST ALT Alkaline Phosphatase Lactate Dehydrogenase Troponin T C-Reactive Protein NT-Pro-B Natriuret Pep Total Protein Albumin Crossmatch 01/28/20 01/28/20 01/28/20 04:34 04:34 05:20 WBC RBC Hgb Hct MCV RDW Plt Count Lymph % (Auto) Bath % (Auto) Lymph # Seg Neutrophils % Seg Neuts % (Manual) Lymphocytes % (Manual) Nucleated RBC % Seg Neutrophils # Man Lymphocytes # (Manual) Monocytes # (Manual) Eosinophils # (Manual) PT INR D-Dimer 2379 H Heparin Anti-Xa Level ABG pH 7.237 L ABG pO2 90.9 H ABG HCO3 29.1 H ABG O2 Saturation ABG Base Excess ABG Hemoglobin 7.5 L Oxyhemoglobin 94.0 L Sodium Potassium Chloride Carbon Dioxide BUN Creatinine Glucose POC Glucose Calcium Magnesium Ferritin Direct Bilirubin AST ALT Alkaline Phosphatase Lactate Dehydrogenase 434 H Troponin T C-Reactive Protein 9.70 H NT-Pro-B Natriuret Pep Total Protein Albumin Crossmatch 01/28/20 01/28/20 01/28/20 06:21 12:25 18:17 WBC RBC Hgb Hct MCV RDW Plt Count Lymph % (Auto) Bath % (Auto) Lymph # Seg Neutrophils % Seg Neuts % (Manual) Lymphocytes % (Manual) Nucleated RBC % Seg Neutrophils # Man Lymphocytes # (Manual) Monocytes # (Manual) Eosinophils # (Manual) PT INR D-Dimer Heparin Anti-Xa Level ABG pH ABG pO2 ABG HCO3 ABG O2 Saturation ABG Base Excess ABG Hemoglobin Oxyhemoglobin Sodium Potassium Chloride Carbon Dioxide BUN Creatinine Glucose POC Glucose 127 H 196 H 190 H Calcium Magnesium Ferritin Direct Bilirubin AST ALT Alkaline Phosphatase Lactate Dehydrogenase Troponin T C-Reactive Protein NT-Pro-B Natriuret Pep Total Protein Albumin Crossmatch 01/28/20 01/29/20 01/29/20 23:35 04:00 04:00 WBC 12.6 H RBC 3.01 L Hgb 9.2 L Hct 29.3 L MCV 98 H RDW 18.1 H Plt Count Lymph % (Auto) Bath % (Auto) Lymph # Seg Neutrophils % Seg Neuts % (Manual) Lymphocytes % (Manual) Nucleated RBC % Seg Neutrophils # Man Lymphocytes # (Manual) Monocytes # (Manual) Eosinophils # (Manual) PT INR D-Dimer Heparin Anti-Xa Level ABG pH ABG pO2 ABG HCO3 ABG O2 Saturation ABG Base Excess ABG Hemoglobin Oxyhemoglobin Sodium 132 L Potassium Chloride 90.1 L Carbon Dioxide BUN 50 H Creatinine 3.7 H Glucose 184 H POC Glucose 177 H Calcium Magnesium Ferritin Direct Bilirubin AST 93 H ALT Alkaline Phosphatase 678 H Lactate Dehydrogenase Troponin T C-Reactive Protein NT-Pro-B Natriuret Pep Total Protein Albumin 1.7 L Crossmatch 01/29/20 01/29/20 01/29/20 05:03 11:53 16:44 WBC RBC Hgb Hct MCV RDW Plt Count Lymph % (Auto) Bath % (Auto) Lymph # Seg Neutrophils % Seg Neuts % (Manual) Lymphocytes % (Manual) Nucleated RBC % Seg Neutrophils # Man Lymphocytes # (Manual) Monocytes # (Manual) Eosinophils # (Manual) PT INR D-Dimer Heparin Anti-Xa Level ABG pH ABG pO2 ABG HCO3 ABG O2 Saturation ABG Base Excess ABG Hemoglobin Oxyhemoglobin Sodium Potassium Chloride Carbon Dioxide BUN Creatinine Glucose POC Glucose 145 H 193 H 174 H Calcium Magnesium Ferritin Direct Bilirubin AST ALT Alkaline Phosphatase Lactate Dehydrogenase Troponin T C-Reactive Protein NT-Pro-B Natriuret Pep Total Protein Albumin Crossmatch 01/29/20 01/30/20 01/30/20 23:38 04:25 11:45 WBC RBC Hgb Hct MCV RDW Plt Count Lymph % (Auto) Bath % (Auto) Lymph # Seg Neutrophils % Seg Neuts % (Manual) Lymphocytes % (Manual) Nucleated RBC % Seg Neutrophils # Man Lymphocytes # (Manual) Monocytes # (Manual) Eosinophils # (Manual) PT INR D-Dimer Heparin Anti-Xa Level ABG pH 7.253 L ABG pO2 61.8 L ABG HCO3 29.7 H ABG O2 Saturation 90.1 L ABG Base Excess ABG Hemoglobin 8.2 L Oxyhemoglobin 87.5 L Sodium Potassium Chloride Carbon Dioxide BUN Creatinine Glucose POC Glucose 144 H 191 H Calcium Magnesium Ferritin Direct Bilirubin AST ALT Alkaline Phosphatase Lactate Dehydrogenase Troponin T C-Reactive Protein NT-Pro-B Natriuret Pep Total Protein Albumin Crossmatch 01/30/20 01/31/20 01/31/20 18:21 00:04 03:52 WBC RBC Hgb Hct MCV RDW Plt Count Lymph % (Auto) Bath % (Auto) Lymph # Seg Neutrophils % Seg Neuts % (Manual) Lymphocytes % (Manual) Nucleated RBC % Seg Neutrophils # Man Lymphocytes # (Manual) Monocytes # (Manual) Eosinophils # (Manual) PT INR D-Dimer Heparin Anti-Xa Level ABG pH ABG pO2 69.3 L ABG HCO3 29.4 H ABG O2 Saturation ABG Base Excess 3.7 H ABG Hemoglobin 10.8 L Oxyhemoglobin Sodium Potassium Chloride Carbon Dioxide BUN Creatinine Glucose POC Glucose 198 H 129 H Calcium Magnesium Ferritin Direct Bilirubin AST ALT Alkaline Phosphatase Lactate Dehydrogenase Troponin T C-Reactive Protein NT-Pro-B Natriuret Pep Total Protein Albumin Crossmatch 01/31/20 01/31/20 01/31/20 04:00 04:16 05:12 WBC 16.7 H RBC 2.73 L Hgb 8.3 L Hct 25.7 L MCV RDW 18.0 H Plt Count Lymph % (Auto) Bath % (Auto) Lymph # Seg Neutrophils % Seg Neuts % (Manual) 92.0 H Lymphocytes % (Manual) 2.0 L Nucleated RBC % Seg Neutrophils # Man 15.4 H Lymphocytes # (Manual) 0.3 L Monocytes # (Manual) 1.0 H Eosinophils # (Manual) PT INR D-Dimer Heparin Anti-Xa Level ABG pH ABG pO2 ABG HCO3 ABG O2 Saturation ABG Base Excess ABG Hemoglobin Oxyhemoglobin Sodium 130 L Potassium Chloride 90.1 L Carbon Dioxide BUN 61 H Creatinine 3.4 H Glucose 128 H POC Glucose 157 H Calcium Magnesium Ferritin Direct Bilirubin AST 103 H ALT 63 H Alkaline Phosphatase 534 H Lactate Dehydrogenase Troponin T C-Reactive Protein NT-Pro-B Natriuret Pep Total Protein Albumin 2.1 L Crossmatch 01/31/20 01/31/20 01/31/20 11:50 17:39 18:47 WBC RBC Hgb Hct MCV RDW Plt Count Lymph % (Auto) Bath % (Auto) Lymph # Seg Neutrophils % Seg Neuts % (Manual) Lymphocytes % (Manual) Nucleated RBC % Seg Neutrophils # Man Lymphocytes # (Manual) Monocytes # (Manual) Eosinophils # (Manual) PT INR D-Dimer Heparin Anti-Xa Level ABG pH ABG pO2 ABG HCO3 ABG O2 Saturation ABG Base Excess ABG Hemoglobin Oxyhemoglobin Sodium Potassium Chloride Carbon Dioxide BUN Creatinine Glucose POC Glucose 129 H 51 L 172 H Calcium Magnesium Ferritin Direct Bilirubin AST ALT Alkaline Phosphatase Lactate Dehydrogenase Troponin T C-Reactive Protein NT-Pro-B Natriuret Pep Total Protein Albumin Crossmatch 02/01/20 02/01/20 02/01/20 03:49 03:49 05:00 WBC 17.4 H RBC 2.68 L Hgb 8.0 L Hct 25.2 L MCV RDW 18.4 H Plt Count Lymph % (Auto) Bath % (Auto) Lymph # Seg Neutrophils % Seg Neuts % (Manual) Lymphocytes % (Manual) Nucleated RBC % Seg Neutrophils # Man Lymphocytes # (Manual) Monocytes # (Manual) Eosinophils # (Manual) PT INR D-Dimer Heparin Anti-Xa Level ABG pH 7.290 L ABG pO2 ABG HCO3 26.8 H ABG O2 Saturation ABG Base Excess ABG Hemoglobin 7.5 L Oxyhemoglobin 94.2 L Sodium 133 L Potassium Chloride 90.8 L Carbon Dioxide 21 L BUN 90 H Creatinine 4.6 H Glucose 145 H POC Glucose Calcium Magnesium Ferritin Direct Bilirubin AST ALT Alkaline Phosphatase Lactate Dehydrogenase Troponin T C-Reactive Protein NT-Pro-B Natriuret Pep Total Protein Albumin Crossmatch 02/01/20 02/01/20 02/01/20 05:34 06:09 12:42 WBC RBC Hgb Hct MCV RDW Plt Count Lymph % (Auto) Bath % (Auto) Lymph # Seg Neutrophils % Seg Neuts % (Manual) Lymphocytes % (Manual) Nucleated RBC % Seg Neutrophils # Man Lymphocytes # (Manual) Monocytes # (Manual) Eosinophils # (Manual) PT INR D-Dimer Heparin Anti-Xa Level ABG pH ABG pO2 ABG HCO3 ABG O2 Saturation ABG Base Excess ABG Hemoglobin Oxyhemoglobin Sodium Potassium Chloride Carbon Dioxide BUN Creatinine Glucose POC Glucose 166 H 143 H 218 H Calcium Magnesium Ferritin Direct Bilirubin AST ALT Alkaline Phosphatase Lactate Dehydrogenase Troponin T C-Reactive Protein NT-Pro-B Natriuret Pep Total Protein Albumin Crossmatch 02/01/20 02/01/20 02/02/20 17:38 18:24 05:00 WBC RBC Hgb Hct MCV RDW Plt Count Lymph % (Auto) Bath % (Auto) Lymph # Seg Neutrophils % Seg Neuts % (Manual) Lymphocytes % (Manual) Nucleated RBC % Seg Neutrophils # Man Lymphocytes # (Manual) Monocytes # (Manual) Eosinophils # (Manual) PT INR D-Dimer Heparin Anti-Xa Level ABG pH 7.317 L ABG pO2 ABG HCO3 28.2 H ABG O2 Saturation ABG Base Excess ABG Hemoglobin 10.1 L Oxyhemoglobin 94.0 L Sodium Potassium Chloride Carbon Dioxide BUN Creatinine Glucose POC Glucose 158 H 233 H Calcium Magnesium Ferritin Direct Bilirubin AST ALT Alkaline Phosphatase Lactate Dehydrogenase Troponin T C-Reactive Protein NT-Pro-B Natriuret Pep Total Protein Albumin Crossmatch 02/02/20 02/02/20 02/02/20 05:44 05:44 05:44 WBC 16.0 H RBC 2.85 L Hgb 8.3 L Hct 26.3 L MCV RDW 18.6 H Plt Count Lymph % (Auto) Bath % (Auto) Lymph # Seg Neutrophils % Seg Neuts % (Manual) 91.0 H Lymphocytes % (Manual) 2.0 L Nucleated RBC % Seg Neutrophils # Man 14.6 H Lymphocytes # (Manual) 0.3 L Monocytes # (Manual) Eosinophils # (Manual) PT INR D-Dimer Heparin Anti-Xa Level 0.77 H ABG pH ABG pO2 ABG HCO3 ABG O2 Saturation ABG Base Excess ABG Hemoglobin Oxyhemoglobin Sodium Potassium Chloride 95.5 L Carbon Dioxide BUN 57 H Creatinine 3.0 H Glucose 144 H POC Glucose Calcium 8.1 L Magnesium Ferritin Direct Bilirubin 0.3 H AST 179 H ALT 106 H Alkaline Phosphatase 557 H Lactate Dehydrogenase Troponin T C-Reactive Protein NT-Pro-B Natriuret Pep Total Protein 6.1 L Albumin 2.3 L Crossmatch 02/02/20 02/02/20 02/02/20 11:17 11:33 12:24 WBC RBC Hgb Hct MCV RDW Plt Count Lymph % (Auto) Bath % (Auto) Lymph # Seg Neutrophils % Seg Neuts % (Manual) Lymphocytes % (Manual) Nucleated RBC % Seg Neutrophils # Man Lymphocytes # (Manual) Monocytes # (Manual) Eosinophils # (Manual) PT INR D-Dimer Heparin Anti-Xa Level ABG pH ABG pO2 ABG HCO3 ABG O2 Saturation ABG Base Excess ABG Hemoglobin Oxyhemoglobin Sodium Potassium Chloride Carbon Dioxide BUN Creatinine Glucose POC Glucose < 40 L < 40 L 224 H Calcium Magnesium Ferritin Direct Bilirubin AST ALT Alkaline Phosphatase Lactate Dehydrogenase Troponin T C-Reactive Protein NT-Pro-B Natriuret Pep Total Protein Albumin Crossmatch 02/02/20 02/02/20 02/03/20 12:33 17:42 00:25 WBC RBC Hgb Hct MCV RDW Plt Count Lymph % (Auto) Bath % (Auto) Lymph # Seg Neutrophils % Seg Neuts % (Manual) Lymphocytes % (Manual) Nucleated RBC % Seg Neutrophils # Man Lymphocytes # (Manual) Monocytes # (Manual) Eosinophils # (Manual) PT INR D-Dimer Heparin Anti-Xa Level ABG pH ABG pO2 ABG HCO3 ABG O2 Saturation ABG Base Excess ABG Hemoglobin Oxyhemoglobin Sodium Potassium Chloride Carbon Dioxide BUN Creatinine Glucose 296 H POC Glucose 228 H < 40 L Calcium Magnesium Ferritin Direct Bilirubin AST ALT Alkaline Phosphatase Lactate Dehydrogenase Troponin T C-Reactive Protein NT-Pro-B Natriuret Pep Total Protein Albumin Crossmatch 02/03/20 02/03/20 02/03/20 00:27 03:59 03:59 WBC 22.9 H RBC 2.80 L Hgb 8.3 L Hct 27.4 L MCV 98 H RDW 19.2 H Plt Count Lymph % (Auto) Bath % (Auto) Lymph # Seg Neutrophils % Seg Neuts % (Manual) 92.0 H Lymphocytes % (Manual) 4.0 L Nucleated RBC % Seg Neutrophils # Man 21.1 H Lymphocytes # (Manual) 0.9 L Monocytes # (Manual) Eosinophils # (Manual) PT INR D-Dimer Heparin Anti-Xa Level ABG pH ABG pO2 ABG HCO3 ABG O2 Saturation ABG Base Excess ABG Hemoglobin Oxyhemoglobin Sodium 134 L Potassium 3.5 L Chloride Carbon Dioxide 21 L BUN 40 H Creatinine 2.6 H Glucose 180 H POC Glucose 198 H Calcium Magnesium Ferritin Direct Bilirubin AST ALT Alkaline Phosphatase Lactate Dehydrogenase Troponin T C-Reactive Protein NT-Pro-B Natriuret Pep Total Protein Albumin Crossmatch 02/03/20 02/03/20 02/03/20 04:48 05:00 12:21 WBC RBC Hgb Hct MCV RDW Plt Count Lymph % (Auto) Bath % (Auto) Lymph # Seg Neutrophils % Seg Neuts % (Manual) Lymphocytes % (Manual) Nucleated RBC % Seg Neutrophils # Man Lymphocytes # (Manual) Monocytes # (Manual) Eosinophils # (Manual) PT INR D-Dimer Heparin Anti-Xa Level ABG pH 7.315 L ABG pO2 97.3 H ABG HCO3 28.5 H ABG O2 Saturation ABG Base Excess ABG Hemoglobin 8.3 L Oxyhemoglobin 94.8 L Sodium Potassium Chloride Carbon Dioxide BUN Creatinine Glucose POC Glucose 182 H 201 H Calcium Magnesium Ferritin Direct Bilirubin AST ALT Alkaline Phosphatase Lactate Dehydrogenase Troponin T C-Reactive Protein NT-Pro-B Natriuret Pep Total Protein Albumin Crossmatch 02/03/20 02/03/20 02/04/20 17:43 23:36 04:50 WBC RBC Hgb Hct MCV RDW Plt Count Lymph % (Auto) Bath % (Auto) Lymph # Seg Neutrophils % Seg Neuts % (Manual) Lymphocytes % (Manual) Nucleated RBC % Seg Neutrophils # Man Lymphocytes # (Manual) Monocytes # (Manual) Eosinophils # (Manual) PT INR D-Dimer Heparin Anti-Xa Level ABG pH ABG pO2 ABG HCO3 ABG O2 Saturation ABG Base Excess ABG Hemoglobin Oxyhemoglobin Sodium 135 L Potassium Chloride 96.3 L Carbon Dioxide 21 L BUN 63 H Creatinine 4.1 H D Glucose 156 H POC Glucose 224 H 146 H Calcium 8.2 L Magnesium Ferritin Direct Bilirubin AST ALT Alkaline Phosphatase Lactate Dehydrogenase Troponin T C-Reactive Protein NT-Pro-B Natriuret Pep Total Protein Albumin Crossmatch 04/20/20 04/20/20 04/20/20 04:50 05:30 05:40 WBC 18.3 H RBC 2.31 L Hgb 6.9 L Hct 22.0 L MCV RDW 18.2 H Plt Count Lymph % (Auto) Bath % (Auto) Lymph # Seg Neutrophils % Seg Neuts % (Manual) 85.0 H Lymphocytes % (Manual) 4.0 L Nucleated RBC % 1.0 H Seg Neutrophils # Man 15.6 H Lymphocytes # (Manual) 0.7 L Monocytes # (Manual) Eosinophils # (Manual) PT INR D-Dimer Heparin Anti-Xa Level ABG pH 7.317 L ABG pO2 77.7 L ABG HCO3 27.4 H ABG O2 Saturation ABG Base Excess ABG Hemoglobin 8.0 L Oxyhemoglobin 94.5 L Sodium Potassium Chloride Carbon Dioxide BUN Creatinine Glucose POC Glucose 202 H Calcium Magnesium Ferritin Direct Bilirubin AST ALT Alkaline Phosphatase Lactate Dehydrogenase Troponin T C-Reactive Protein NT-Pro-B Natriuret Pep Total Protein Albumin Crossmatch 02/04/20 02/04/20 02/04/20 10:47 12:53 18:44 WBC RBC Hgb Hct MCV RDW Plt Count Lymph % (Auto) Bath % (Auto) Lymph # Seg Neutrophils % Seg Neuts % (Manual) Lymphocytes % (Manual) Nucleated RBC % Seg Neutrophils # Man Lymphocytes # (Manual) Monocytes # (Manual) Eosinophils # (Manual) PT INR D-Dimer Heparin Anti-Xa Level ABG pH ABG pO2 ABG HCO3 ABG O2 Saturation ABG Base Excess ABG Hemoglobin Oxyhemoglobin Sodium Potassium Chloride Carbon Dioxide BUN Creatinine Glucose POC Glucose 197 H 143 H Calcium Magnesium Ferritin Direct Bilirubin AST ALT Alkaline Phosphatase Lactate Dehydrogenase Troponin T C-Reactive Protein NT-Pro-B Natriuret Pep Total Protein Albumin Crossmatch See Detail 02/05/20 02/05/20 02/05/20 00:43 04:14 04:35 WBC RBC Hgb Hct MCV RDW Plt Count Lymph % (Auto) Bath % (Auto) Lymph # Seg Neutrophils % Seg Neuts % (Manual) Lymphocytes % (Manual) Nucleated RBC % Seg Neutrophils # Man Lymphocytes # (Manual) Monocytes # (Manual) Eosinophils # (Manual) PT INR D-Dimer Heparin Anti-Xa Level ABG pH 7.327 L ABG pO2 75.5 L ABG HCO3 30.1 H ABG O2 Saturation ABG Base Excess 3.5 H ABG Hemoglobin 8.4 L Oxyhemoglobin 93.8 L Sodium 134 L Potassium 3.3 L Chloride 97.3 L Carbon Dioxide BUN 38 H Creatinine 2.2 H Glucose 187 H POC Glucose 163 H Calcium 8.1 L Magnesium Ferritin Direct Bilirubin AST ALT Alkaline Phosphatase Lactate Dehydrogenase Troponin T C-Reactive Protein NT-Pro-B Natriuret Pep Total Protein Albumin Crossmatch 02/05/20 02/05/20 02/05/20 04:35 05:16 12:17 WBC 24.4 H RBC 2.75 L Hgb 7.9 L Hct 25.2 L MCV RDW 18.1 H Plt Count Lymph % (Auto) Bath % (Auto) Lymph # Seg Neutrophils % Seg Neuts % (Manual) 96.0 H Lymphocytes % (Manual) 1.0 L Nucleated RBC % Seg Neutrophils # Man 23.4 H Lymphocytes # (Manual) 0.2 L Monocytes # (Manual) Eosinophils # (Manual) 0.5 H PT INR D-Dimer Heparin Anti-Xa Level ABG pH ABG pO2 ABG HCO3 ABG O2 Saturation ABG Base Excess ABG Hemoglobin Oxyhemoglobin Sodium Potassium Chloride Carbon Dioxide BUN Creatinine Glucose POC Glucose 196 H 174 H Calcium Magnesium Ferritin Direct Bilirubin AST ALT Alkaline Phosphatase Lactate Dehydrogenase Troponin T C-Reactive Protein NT-Pro-B Natriuret Pep Total Protein Albumin Crossmatch 02/05/20 02/05/20 02/05/20 13:55 13:55 13:55 WBC RBC Hgb Hct MCV RDW Plt Count Lymph % (Auto) Bath % (Auto) Lymph # Seg Neutrophils % Seg Neuts % (Manual) Lymphocytes % (Manual) Nucleated RBC % Seg Neutrophils # Man Lymphocytes # (Manual) Monocytes # (Manual) Eosinophils # (Manual) PT INR D-Dimer 2896.73 H Heparin Anti-Xa Level ABG pH ABG pO2 ABG HCO3 ABG O2 Saturation ABG Base Excess ABG Hemoglobin Oxyhemoglobin Sodium Potassium Chloride Carbon Dioxide BUN Creatinine Glucose POC Glucose Calcium Magnesium Ferritin > 2000.0 H Direct Bilirubin AST ALT Alkaline Phosphatase Lactate Dehydrogenase 311 H Troponin T C-Reactive Protein 17.30 H NT-Pro-B Natriuret Pep Total Protein Albumin Crossmatch 02/05/20 02/05/20 02/06/20 17:20 21:53 04:50 WBC RBC Hgb Hct MCV RDW Plt Count Lymph % (Auto) Bath % (Auto) Lymph # Seg Neutrophils % Seg Neuts % (Manual) Lymphocytes % (Manual) Nucleated RBC % Seg Neutrophils # Man Lymphocytes # (Manual) Monocytes # (Manual) Eosinophils # (Manual) PT INR D-Dimer Heparin Anti-Xa Level ABG pH 7.349 L ABG pO2 64.5 L ABG HCO3 28.4 H ABG O2 Saturation 94.0 L ABG Base Excess ABG Hemoglobin 8.4 L Oxyhemoglobin 91.8 L Sodium Potassium Chloride Carbon Dioxide BUN Creatinine Glucose POC Glucose 191 H 200 H Calcium Magnesium Ferritin Direct Bilirubin AST ALT Alkaline Phosphatase Lactate Dehydrogenase Troponin T C-Reactive Protein NT-Pro-B Natriuret Pep Total Protein Albumin Crossmatch 02/06/20 02/06/20 02/06/20 05:55 05:55 05:58 WBC 22.4 H RBC 3.02 L Hgb 8.5 L Hct 27.6 L MCV RDW 18.8 H Plt Count Lymph % (Auto) Bath % (Auto) Lymph # Seg Neutrophils % Seg Neuts % (Manual) Lymphocytes % (Manual) Nucleated RBC % Seg Neutrophils # Man Lymphocytes # (Manual) Monocytes # (Manual) Eosinophils # (Manual) PT INR D-Dimer Heparin Anti-Xa Level ABG pH ABG pO2 ABG HCO3 ABG O2 Saturation ABG Base Excess ABG Hemoglobin Oxyhemoglobin Sodium 136 L Potassium Chloride 96.4 L Carbon Dioxide BUN 66 H Creatinine 3.6 H D Glucose 139 H POC Glucose 110 H Calcium Magnesium Ferritin Direct Bilirubin AST ALT Alkaline Phosphatase Lactate Dehydrogenase Troponin T C-Reactive Protein NT-Pro-B Natriuret Pep Total Protein Albumin Crossmatch 02/06/20 02/06/20 02/06/20 12:19 17:52 23:47 WBC RBC Hgb Hct MCV RDW Plt Count Lymph % (Auto) Bath % (Auto) Lymph # Seg Neutrophils % Seg Neuts % (Manual) Lymphocytes % (Manual) Nucleated RBC % Seg Neutrophils # Man Lymphocytes # (Manual) Monocytes # (Manual) Eosinophils # (Manual) PT INR D-Dimer Heparin Anti-Xa Level ABG pH ABG pO2 ABG HCO3 ABG O2 Saturation ABG Base Excess ABG Hemoglobin Oxyhemoglobin Sodium Potassium Chloride Carbon Dioxide BUN Creatinine Glucose POC Glucose 185 H 185 H 173 H Calcium Magnesium Ferritin Direct Bilirubin AST ALT Alkaline Phosphatase Lactate Dehydrogenase Troponin T C-Reactive Protein NT-Pro-B Natriuret Pep Total Protein Albumin Crossmatch 02/07/20 02/07/2002/06/20 05:04 11:46 11:52 WBC RBC Hgb Hct MCV RDW Plt Count Lymph % (Auto) Bath % (Auto) Lymph # Seg Neutrophils % Seg Neuts % (Manual) Lymphocytes % (Manual) Nucleated RBC % Seg Neutrophils # Man Lymphocytes # (Manual) Monocytes # (Manual) Eosinophils # (Manual) PT INR D-Dimer Heparin Anti-Xa Level ABG pH ABG pO2 ABG HCO3 ABG O2 Saturation ABG Base Excess ABG Hemoglobin Oxyhemoglobin Sodium Potassium Chloride Carbon Dioxide BUN Creatinine Glucose POC Glucose 145 H 240 H 251 H Calcium Magnesium Ferritin Direct Bilirubin AST ALT Alkaline Phosphatase Lactate Dehydrogenase Troponin T C-Reactive Protein NT-Pro-B Natriuret Pep Total Protein Albumin Crossmatch 02/07/20 02/08/20 02/08/20 18:18 00:22 05:43 WBC RBC Hgb Hct MCV RDW Plt Count Lymph % (Auto) Bath % (Auto) Lymph # Seg Neutrophils % Seg Neuts % (Manual) Lymphocytes % (Manual) Nucleated RBC % Seg Neutrophils # Man Lymphocytes # (Manual) Monocytes # (Manual) Eosinophils # (Manual) PT INR D-Dimer Heparin Anti-Xa Level ABG pH ABG pO2 ABG HCO3 ABG O2 Saturation ABG Base Excess ABG Hemoglobin Oxyhemoglobin Sodium Potassium Chloride Carbon Dioxide BUN Creatinine Glucose POC Glucose 225 H 274 H 307 H Calcium Magnesium Ferritin Direct Bilirubin AST ALT Alkaline Phosphatase Lactate Dehydrogenase Troponin T C-Reactive Protein NT-Pro-B Natriuret Pep Total Protein Albumin Crossmatch 02/08/20 02/08/20 02/08/20 09:40 12:09 17:42 WBC RBC Hgb Hct MCV RDW Plt Count Lymph % (Auto) Bath % (Auto) Lymph # Seg Neutrophils % Seg Neuts % (Manual) Lymphocytes % (Manual) Nucleated RBC % Seg Neutrophils # Man Lymphocytes # (Manual) Monocytes # (Manual) Eosinophils # (Manual) PT INR D-Dimer Heparin Anti-Xa Level ABG pH 7.167 L* ABG pO2 ABG HCO3 30.3 H ABG O2 Saturation 92.6 L ABG Base Excess ABG Hemoglobin 8.8 L Oxyhemoglobin 90.4 L Sodium Potassium Chloride Carbon Dioxide BUN Creatinine Glucose POC Glucose 327 H 269 H Calcium Magnesium Ferritin Direct Bilirubin AST ALT Alkaline Phosphatase Lactate Dehydrogenase Troponin T C-Reactive Protein NT-Pro-B Natriuret Pep Total Protein Albumin Crossmatch 02/08/20 02/09/20 02/09/20 20:45 01:16 04:48 WBC 22.9 H RBC 2.86 L Hgb 8.3 L Hct 26.2 L MCV RDW 18.0 H Plt Count 507 H Lymph % (Auto) Bath % (Auto) Lymph # Seg Neutrophils % Seg Neuts % (Manual) Lymphocytes % (Manual) Nucleated RBC % Seg Neutrophils # Man Lymphocytes # (Manual) Monocytes # (Manual) Eosinophils # (Manual) PT INR D-Dimer Heparin Anti-Xa Level ABG pH ABG pO2 79.1 L ABG HCO3 31.7 H ABG O2 Saturation ABG Base Excess 4.6 H ABG Hemoglobin Oxyhemoglobin 93.5 L Sodium Potassium Chloride Carbon Dioxide BUN Creatinine Glucose POC Glucose 150 H Calcium Magnesium Ferritin Direct Bilirubin AST ALT Alkaline Phosphatase Lactate Dehydrogenase Troponin T C-Reactive Protein NT-Pro-B Natriuret Pep Total Protein Albumin Crossmatch 02/09/20 02/09/20 02/09/20 04:48 05:14 13:11 WBC RBC Hgb Hct MCV RDW Plt Count Lymph % (Auto) Bath % (Auto) Lymph # Seg Neutrophils % Seg Neuts % (Manual) Lymphocytes % (Manual) Nucleated RBC % Seg Neutrophils # Man Lymphocytes # (Manual) Monocytes # (Manual) Eosinophils # (Manual) PT INR D-Dimer Heparin Anti-Xa Level ABG pH ABG pO2 ABG HCO3 ABG O2 Saturation ABG Base Excess ABG Hemoglobin Oxyhemoglobin Sodium Potassium Chloride 93.9 L Carbon Dioxide BUN 59 H Creatinine 2.5 H Glucose 309 H POC Glucose 356 H 184 H Calcium Magnesium Ferritin Direct Bilirubin AST ALT Alkaline Phosphatase Lactate Dehydrogenase Troponin T C-Reactive Protein NT-Pro-B Natriuret Pep Total Protein Albumin Crossmatch 02/09/20 02/10/20 02/10/20 16:53 00:20 05:38 WBC RBC Hgb Hct MCV RDW Plt Count Lymph % (Auto) Bath % (Auto) Lymph # Seg Neutrophils % Seg Neuts % (Manual) Lymphocytes % (Manual) Nucleated RBC % Seg Neutrophils # Man Lymphocytes # (Manual) Monocytes # (Manual) Eosinophils # (Manual) PT INR D-Dimer Heparin Anti-Xa Level ABG pH ABG pO2 ABG HCO3 ABG O2 Saturation ABG Base Excess ABG Hemoglobin Oxyhemoglobin Sodium Potassium Chloride Carbon Dioxide BUN Creatinine Glucose POC Glucose 357 H 298 H 300 H Calcium Magnesium Ferritin Direct Bilirubin AST ALT Alkaline Phosphatase Lactate Dehydrogenase Troponin T C-Reactive Protein NT-Pro-B Natriuret Pep Total Protein Albumin Crossmatch Allied health notes reviewed: nursing
[2020-02-10] MEDS: INSULIN GLARGINE 100 UNITS/ML SUB-Q SCH (12:54)
--- NOTE | 2020-02-10 12:57 | Progress Note ---
Assessment and Plan - Patient Problems (1) End stage renal disease on dialysis Current Visit: No Status: Chronic Plan to address problem: continue HD on MWF schedule. vasopressor support during HD prn to maintain MAP > 65mmhg (2) Pneumonia due to COVID-19 virus Current Visit: Yes Status: Acute Plan to address problem: continue treatment per infectious disease. (3) Acute respiratory failure with hypoxia Current Visit: No Status: Acute Plan to address problem: ventilator management by pulmonary/electronic systems technician (4) Volume overload Current Visit: Yes Status: Acute Qualifiers: Plan to address problem: Fluid status improved with HD (5) Hyponatremia Current Visit: No Status: Acute Plan to address problem: improving with optimizing volume status with HD. 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 (8) Anemia in CKD (chronic kidney disease) Current Visit: Yes Status: Acute Qualifiers: Chronic kidney disease stage: on chronic dialysis Qualified Code(s): N18.6 - End stage renal disease; D63.1 - Anemia in chronic kidney disease; Z99.2 - Dependence on renal dialysis Plan to address problem: CLARITA therapy with HD. (9) Secondary hyperparathyroidism (of renal origin) Current Visit: Yes Status: Chronic Plan to address problem: Continue on current outpatient phos binder regimen. Subjective Date of service: 02/10/20 Principal diagnosis: Pneumonia Interval history: pt intubated, sedated. on daily PSV trial Objective - Exam Narrative Exam: Exam reviewed in chart for PPE conservation - Vital Signs Vital signs: Vital Signs - 12hr 02/10/20 02/10/20 02/10/20 01:00 01:03 01:15 Temperature Pulse Rate 97 H 98 H 97 H Respiratory 25 H 41 H Rate Blood Pressure 132/64 132/64 132/64 O2 Sat by Pulse 100 99 100 Oximetry 02/10/20 02/10/20 02/10/20 01:31 01:45 02:00 Temperature Pulse Rate 97 H 97 H 96 H Respiratory 25 H 21 18 Rate Blood Pressure 129/61 129/61 122/57 O2 Sat by Pulse 100 100 100 Oximetry 02/10/20 02/10/20 02/10/20 02:15 02:30 02:45 Temperature Pulse Rate 95 H 95 H 96 H Respiratory 23 25 H 22 Rate Blood Pressure 122/57 119/61 122/57 O2 Sat by Pulse 100 100 100 Oximetry 02/10/20 02/10/20 02/10/20 03:00 03:15 03:30 Temperature Pulse Rate 95 H 94 H 94 H Respiratory 20 20 27 H Rate Blood Pressure 125/60 125/60 118/60 O2 Sat by Pulse 100 100 100 Oximetry 02/10/20 02/10/20 02/10/20 03:38 03:45 04:00 Temperature 99.5 F Pulse Rate 95 H 94 H Respiratory 23 20 Rate Blood Pressure 118/60 122/64 O2 Sat by Pulse 100 100 Oximetry 02/10/20 02/10/20 02/10/20 04:15 04:30 04:45 Temperature Pulse Rate 91 H 95 H 95 H Respiratory 22 22 23 Rate Blood Pressure 122/64 121/65 121/65 O2 Sat by Pulse 100 99 100 Oximetry 02/10/20 02/10/20 02/10/20 05:00 05:15 05:30 Temperature Pulse Rate 88 85 90 Respiratory 20 23 21 Rate Blood Pressure 111/60 121/65 131/70 O2 Sat by Pulse 100 100 99 Oximetry 02/10/20 02/10/20 02/10/20 05:45 06:00 06:15 Temperature Pulse Rate 89 88 87 Respiratory 22 22 26 H Rate Blood Pressure 131/70 122/64 122/64 O2 Sat by Pulse 100 100 100 Oximetry 02/10/20 02/10/20 02/10/20 06:30 06:45 07:00 Temperature Pulse Rate 85 83 91 H Respiratory 26 H 25 H 20 Rate Blood Pressure 126/57 126/57 138/72 O2 Sat by Pulse 100 100 100 Oximetry 02/10/20 02/10/20 02/10/20 07:15 07:30 07:45 Temperature Pulse Rate 93 H 93 H 94 H Respiratory 21 24 20 Rate Blood Pressure 138/72 141/74 141/74 O2 Sat by Pulse 100 100 100 Oximetry 02/10/20 02/10/20 02/10/20 08:00 08:15 08:30 Temperature 98.4 F Pulse Rate 94 H 96 H 95 H Respiratory 20 20 20 Rate Blood Pressure 146/72 146/72 142/70 O2 Sat by Pulse 100 100 100 Oximetry 02/10/20 02/10/20 02/10/20 08:35 08:45 09:01 Temperature Pulse Rate 105 H 98 H 105 H Respiratory 22 18 20 Rate Blood Pressure 161/77 142/70 161/77 O2 Sat by Pulse 99 96 99 Oximetry 02/10/20 02/10/20 02/10/20 09:04 09:15 09:31 Temperature Pulse Rate 104 H 105 H 105 H Respiratory 20 20 Rate Blood Pressure 161/77 161/77 159/69 O2 Sat by Pulse 100 100 Oximetry 02/10/20 02/10/20 02/10/20 09:45 10:01 10:15 Temperature Pulse Rate 105 H 104 H 105 H Respiratory 19 18 21 Rate Blood Pressure 159/69 146/64 146/64 O2 Sat by Pulse 100 100 99 Oximetry 02/10/20 02/10/20 02/10/20 10:30 10:45 11:01 Temperature Pulse Rate 106 H 103 H 107 H Respiratory 17 18 21 Rate Blood Pressure 155/67 155/67 150/70 O2 Sat by Pulse 100 100 100 Oximetry 02/10/20 02/10/20 02/10/20 11:15 11:30 11:45 Temperature Pulse Rate 109 H 108 H 104 H Respiratory 20 24 24 Rate Blood Pressure 150/70 146/68 146/68 O2 Sat by Pulse 99 99 99 Oximetry 02/10/20 02/10/20 02/10/20 11:55 12:01 12:15 Temperature Pulse Rate 103 H 104 H 99 H Respiratory 22 24 21 Rate Blood Pressure 136/62 136/62 136/62 O2 Sat by Pulse 99 99 98 Oximetry 02/10/20 12:31 Temperature Pulse Rate 102 H Respiratory 20 Rate Blood Pressure 130/56 O2 Sat by Pulse 100 Oximetry - Lab 02/09/20 04:48 02/09/20 04:48 Most recent lab results ABG pH 7.351 pH Units (7.350-7.450) 02/08/20 20:45 ABG pCO2 58.7 mm Hg 02/08/20 20:45 ABG pO2 79.1 mm Hg (80.0-90.0) L 02/08/20 20:45 ABG HCO3 31.7 mmol/L (20.0-26.0) H 02/08/20 20:45 ABG O2 Saturation 95.6 % (95.0-99.0) 02/08/20 20:45 Calcium 8.8 mg/dL (8.4-10.2) 02/09/20 04:48 Phosphorus 3.30 mg/dL (2.5-4.5) 01/12/20 16:01 Magnesium 2.00 mg/dL (1.7-2.3) 01/13/20 06:11 Medications & Allergies - Medications Allergies/Adverse Reactions: Allergies cheese Allergy (Mild, Verified 12/20/19 10:19) Itching iodine Allergy (Mild, Verified 12/20/19 10:16) Anaphylaxis clonidine Allergy (Verified 12/19/19 04:13) Anaphylaxis shellfish derived Adverse Reaction (Verified 12/19/19 04:13) Angioedema Home Medications: Home Medications Medication Instructions Recorded Confirmed Last Taken Type Atorvastatin [Lipitor] 40 mg PO DAILY 11/06/19 01/13/20 01/02/20 10:00 History Acetaminophen [Acetaminophen 8 650 mg PO Q8H PRN #30 tablet.er 11/21/19 01/13/20 01/03/20 22:00 Rx Hour] Cyclobenzaprine HCl [Flexeril 5 MG 5 mg PO QHS PRN #20 tab 11/21/19 01/13/20 01/01/20 22:00 Rx TAB] HYDROcodone/APAP 5-325 [Nicholls 1 each PO Q6HR PRN #18 tablet 12/13/19 01/13/20 01/01/20 22:00 Rx 5-325 mg TAB] amLODIPine 10 mg PO DAILY 90 Days #90 tab 12/18/19 01/13/20 01/01/20 10:00 Rx Ibuprofen 800 mg PO TID 12/19/19 01/13/20 01/02/20 22:00 History Magnesium Oxide [Mag-Ox] 400 mg PO QDAY 12/19/19 01/13/20 01/03/20 10:00 History diphenhydrAMINE [Benadryl CAP] 25 mg PO Q8HR PRN 12/19/19 01/13/20 01/03/20 21:00 History labetaloL [Labetalol 100mg TAB] 100 mg PO Q8H #90 tablet 12/21/19 01/13/20 01/02/20 10:00 Rx traMADoL [Ultram 50 MG tab] 50 mg PO Q6HR PRN #20 tablet 12/29/19 01/13/20 12/31/19 10:00 Rx DULoxetine [Cymbalta] 30 mg PO QDAY #30 capsule 01/04/20 01/13/20 Unknown Rx Valsartan [Diovan] 80 mg PO DAILY #30 tablet 01/04/20 01/13/20 Unknown Rx Active Medications: Generic Name Dose Route Start Last Admin Trade Name Freq PRN Reason Stop Dose Admin Acetaminophen 650 mg 01/09/20 16:33 02/05/20 05:58 Tylenol PO 650 mg Q4H PRN Administration Pain MILD(1-3)/Fever >100.5/MEANS Lipase/Protease/Amylase 1 each 01/23/20 14:28 02/07/20 13:18 Pancreazangela Albarran 10,500 Unit FEEDTUBE 1 each PRN PRN Administration For Clogged Feeding Tube Atorvastatin Calcium 40 mg 01/09/20 22:00 02/09/20 21:04 Lipitor PO 40 mg QHS PHILLY Administration Dextrose 50 ml 01/23/20 07:26 02/02/20 11:33 D50w (25gm) Syringe IV 50 ml Q30MIN PRN Administration BLOOD GLUCOSE < 70 Dextrose 25 ml 01/24/20 08:58 01/24/20 13:41 D50w (25gm) Syringe IV 25 ml Q4H PRN Administration BG < 80 MG/DL Docusate Sodium 100 mg 01/25/20 22:00 02/10/20 09:04 Colace PO 100 mg BID PHILLY Administration Epoetin Helio 20,000 unit 02/04/20 12:00 02/04/20 13:00 Procrit SUB-Q 20,000 unit SILVERIO PHILLY Administration Famotidine 20 mg 01/09/20 22:00 02/10/20 09:06 Pepcid PO 20 mg DAILY PHILLY Administration Heparin Sodium (Porcine) 5,000 unit 02/07/20 10:00 02/10/20 09:06 Heparin SUB-Q 5,000 unit Q12HR PHILLY Administration Norepinephrine 4 mg in 250 mls @ 7.5 mls/hr 01/21/20 18:00 02/09/20 10:21 Levophed Drip 4 Mg/Ns 250 Ml IV 0 mcg/min TITR PHILLY 0 mls/hr Titration Protocol 2 MCG/MIN Propofol 1,000 mg in 100 mls @ 2.265 mls/hr 01/22/20 09:00 01/30/20 14:25 Diprivan 10 Mg/Ml IV 0 mcg/kg/min TITR PHILLY 0 mls/hr Titration Protocol 5 MCG/KG/MIN Sodium Chloride 100 mls @ 999 mls/hr 02/01/20 09:47 Nacl 0.9% IV SILVERIO PRN Hypotension Cefepime HCl 1 gm in 100 mls @ 200 mls/hr 02/04/20 14:00 02/10/20 09:04 Cefepime/Ns 1 Gm/100 Ml IV 200 mls/hr Q24HR PHILLY Administration Protocol Fluconazole 200 mg in 100 mls @ 100 mls/hr 02/04/20 13:00 02/10/20 09:04 Diflucan IV 100 mls/hr Q24HR [facility] Administration Protocol Insulin Glargine 15 units 02/10/20 13:00 02/10/20 12:54 Lantus SUB-Q 15 units DAILY PHILLY Administration Insulin Human Lispro 0 unit 02/07/20 12:00 02/10/20 12:49 Humalog SUB-Q 8 unit Q6HR [facility] Administration Protocol Lorazepam 2 mg 01/23/20 15:36 Ativan IV Q10MIN PRN Agitation Methylprednisolone Sodium Succinate 40 mg 02/07/20 14:00 02/10/20 05:34 Solu-Medrol IV 40 mg Q8HR PHILLY Administration Ondansetron HCl 4 mg 01/09/20 16:33 01/20/20 10:19 Zofran IV 4 mg Q8H PRN Administration Nausea And Vomiting Simple Syrup 15 ml 01/23/20 14:28 Simple Syrup FEEDTUBE PRN PRN Hypoglycemia Simple Syrup 30 ml 01/23/20 14:28 Simple Syrup FEEDTUBE PRN PRN Hypoglycemia Sodium Bicarbonate 325 mg 01/23/20 14:28 Sodium Bicarbonate FEEDTUBE PRN PRN For Clogged Feeding Tube Sodium Chloride 10 ml 01/09/20 22:00 02/10/20 09:06 Sodium Chloride Flush Syringe 10 Ml IV 10 ml BID PHILLY Administration Sodium Chloride 10 ml 01/09/20 16:33 Sodium Chloride Flush Syringe 10 Ml IV PRN PRN LINE FLUSH Valsartan 80 mg 01/10/20 10:00 02/10/20 09:04 Diovan PO 80 mg DAILY PHILLY Administration
[2020-02-11] MEDS: INSULIN LISPRO 100 UNIT/ML SUB-Q SCH ×4 (01:27→17:20)
[2020-02-11] MEDS: methylPREDNISolone Sod Succinate 40 MG/1 ML INJ IV SCH ×3 (05:57→22:02)
--- NOTE | 2020-02-11 09:11 | Progress Note ---
Assessment and Plan Assessment and plan: COVID- 19 infection confirmed. Bilateral pneumonia. Continue antibiotics per ID ARDS. Etiology secondary to above. Acute hypoxemic respiratory failure. Intubated, on ventilator Pulm following Chest pain Stress test neg for ischemia GERD and costochondritis in differential diagnosis Volume overload s/p hemodialysis Nephrology consulted,following Acute on Chronic diastolic CHF exacerbation Secondary to volume overload End stage renal disease on dialysis Nephrology following T2DM (type 2 diabetes mellitus) Continue continue coverage Check hemoglobin A1c Hypertension Continue antihypertensives Hyponatremia Secondary to increased volume--dilutional DVT prophylaxis On heparin and GI prophylaxis 01/11 Covid 19 survey testing sent, nasal swab done 01/10 01/12 Patient has acute resp failure. may need Oxygen on dc. awaiting Covid result 01/13 Still has shortness of breath, awaiting Covid test. 01/14 Pt still dyspneic, await covid testing, Pulse ox 83% 01/16/2020. Patient remains dyspneic. Follow-up COVID testing. 01/17/2020. Patient still requiring large amounts of oxygen. Patient currently with 15 L satting at 95%. Patient with increased inflammatory markers. Follow- up chest x-ray today. 01/18/20--Patient still requiring large amounts of oxygen. Patient currently with 15 L %. Patient with increased inflammatory markers. 01/19/2020 very elevated inflammatory markers- ferritin> 2000, CRP >24, LDH> 600, d-dimer >1000 putting her at high risk for ARDS. Continue hydroxychloroquine 400 mg PO BID for 1 day then 200 mg PO BID for 4 days (total 5 days) with zinc 220 mg PO qday. Continue ceftriaxone. ContinueCOVID isolationprecautions per [facility] protocol. Continue serial Ferritin, LDH, D-Dimer, CRP every 48h 01/20/2020. Inflammatory markers remain elevated with ferritin 1826, LDH 496, CRP 19.3, and d-dimer 2072. Patient requiring high flow nasal cannula 40L, FiO2 80%. Pulmonary following. Continue antibiotics and Plaquenil. Continue COVID isolationprecautions per [facility] protocol. Patient has a high risk mortality and remains guarded. 01/21/2020. Continue antibiotics and Plaquenil. Continue COVID isolationprecautions per [facility] protocol. Maintain sats of 88% and greater. Still on HFNC, O2 weaned to 95% overnight. Sats documented at 98%. Pulmonary following and reports If patient progresses could give bipap a one hour trial to see if there is improvement, repeat ABG, if not would suggest elective intubation 01/22/2020 Patient still critically ill. Yesterday 01/20 had cardiopulmonary arrest so now intubated in ICU. Prognosis guarded. 01/23/2020 still critically ill. No more fever. Continue vent management. 01/24/20 Still critically ill, remain on vent. Continue current management. Will call . 01/25/20 Patient still critically ill. I called Davis Hernandez and gave update. He wants DNR status and says he will request withdrawal of care if patient does not get better after weekend. I discussed with Kettle Loader. 01/26/20 patient still intubated, on vent. She means a DNR order. Discussed with Nurse 01/26 patient still critically ill, vent dependent. 01/27 patient still intubated, on vent. On levophed to keep MAP>65mmhg 01/29/2020 patient still intubated on mechanical ventilation. AC mode ventilation with rate 20, tidal volume 400, FiO2 45% and PEEP 12. patient with no fever. Patient currently with sedation of propofol. Patient received hemodialysis yesterday with approximately 3 L removed. 01/30/2020. Patient still on mechanical ventilation. AC mode ventilation with rate 20, tidal volume 400, FiO2 45% and PEEP 8. Patient with elevated alkaline phosphatase. Check abdominal ultrasound. 01/31/2020. Patient still on mechanical ventilation. PSV mode ventilation with FiO2 50% and PEEP 8 and PS=12. Follow-up abdominal ultrasound for elevated alkaline phosphatase 02/01/2020. Patient currently with PSV FiO2 50%, pressure support 12, PEEP 8. Continue PSV trials per pulmonary. Continue Levophed to maintain MAP greater than 65. Continue propofol for sedation. 02/02/2020. Patient currently on AC mode ventilation rate 20, tidal volume 450, FiO2 50% and PEEP of 6. ABG with pH of 7.31, PCO2 56.4, and PO2 85. Patient confirmed COVID-19 positive on 01/17/2020. Patient with MOSF and guarded prognosis. Follow-up abdominal ultrasound (ordered 3 days ago) for elevated alkaline phosphatase and fevers. 02/03/2020. Patient continues on mechanical ventilation AC mode with rate 20, tidal volume 450 and PEEP of 8. Patient still with temperature 100.5. Patient off sedation but requiring Levophed at 2 mics. Patient with an episode of hypoglycemia yesterday requiring D5 half-normal. Continue to monitor for hypoglycemia. Patient with MOSF and guarded prognosis. Follow-up abdominal ultrasound (ordered 4 days ago) for elevated alkaline phosphatase and fevers. 02/04/2020. Patient continues on mechanical ventilation AC mode with rate 20, tidal volume 450, FiO2 50% and PEEP of 8. Patient continues to have fevers. Patient currently on Levophed. Continue pressors to maintain map greater than 65. Hemoglobin 6.9-1 unit PRBCs ordered. Patient may be able to wean off of Levophed with volume resuscitation of PRBCs. Follow-up abdominal ultrasound (ordered 5 days ago) for elevated alkaline phosphatase and fevers. Patient's prognosis remains guarded. 02/05/2020 patient with covid-19 infection with acute resp failure, intubated, still on vent. Now off Levophed since 02/0302/06/2020 patient with Covid-19 infection. fever yesterday, none today. Continuje current management. Prognosis guarded. 02/07/2020 patient with Covid-19 infection. Still intubated, on vent. Ongoig fever. DNR code status. prognosis remains guarded. 02/08/2020 patient with Covid-19 infection. Still intubated. Ongoing weaning attempts. I called and gave update to , Mr. Davis Medina yesterday. 02/09/2020 patient with Covid-19. No fever X 48 hrs. Repeat covid-19 test negative. I discussed with yesterday 02/08/20. 02/10/2020 Patient with Covid-19. No more fever 02/11/2020 Patient with Covid 19 infection,still intubated, on vent. Plan is to arrange transfer o [facility], [employer] working on it. The high probability of a clinically significant, sudden or life threatening deterioration of the [immunologic and respiratory] system(s) required my full and direct attention, intervention and personal management. The aggregate critical care time was [33] minutes. This time is in addition to time spent performing reported procedures but includes the following: [x] Data Review and interpretation [x] Patient assessment and monitoring of vital signs [x] Documentation [x] Medication orders and management History Interval history: Patient initially presented with chest tightness, SOB Now diagnosed with Covid-19 infection,acute resp failure, intubated Hospitalist Physical - Physical exam Narrative exam: GEN: Intubated, Not in acute distress HEENT: Normocephalic, atraumatic, Neck: supple, No JVD Lungs: Bilateral crackles, heart;S1 and S2 reg, no murmurs, rubs or gallop Abd:soft, non tender, non distended, normal bowel sounds Ext: No edema, no clubbing, no cyanosis, Neuro: intubated, unresponsive - Constitutional Vitals: Temp Pulse Resp BP Pulse Ox 99.8 F H 97 H 22 156/69 99 02/11/20 03:37 02/11/20 07:55 02/11/20 07:55 02/11/20 07:55 02/11/20 07:55 General appearance: Present: no acute distress BREEZY score - Breezy Score Age > 65: (1) Yes Aspirin use within the Past 7 Days: (1) Yes 3 or more CAD Risk Factors: (1) Yes 2 or more Angina events in past 24 hrs: (1) Yes Known CAD with more than 50% Stenosis: (0) No Elevated Cardiac Markers: (0) No ST Deviation Greater than 0.5mm: (0) No BREEZY Score: 4 Results - Labs CBC & Chem 7: 02/09/20 04:48 02/09/20 04:48 Labs: Laboratory Last Values WBC 22.9 K/mm3 (4.5-11.0) H 02/09/20 04:48 RBC 2.86 M/mm3 (3.65-5.03) L 02/09/20 04:48 Hgb 8.3 gm/dl (10.1-14.3) L 02/09/20 04:48 Hct 26.2 % (30.3-42.9) L 02/09/20 04:48 MCV 92 fl (79-97) 02/09/20 04:48 MCH 29 pg (28-32) 02/09/20 04:48 MCHC 32 % (30-34) 02/09/20 04:48 RDW 18.0 % (13.2-15.2) H 02/09/20 04:48 Plt Count 507 K/mm3 (140-440) H 02/09/20 04:48 Lymph % (Auto) Nuclear Licensing Engineer 02/03/20 03:59 Moore % (Auto) Nuclear Licensing Engineer 02/03/20 03:59 Eos % (Auto) Nuclear Licensing Engineer 02/03/20 03:59 Baso % (Auto) Nuclear Licensing Engineer 02/03/20 03:59 Lymph # Nuclear Licensing Engineer 02/03/20 03:59 Moore # Nuclear Licensing Engineer 02/03/20 03:59 Eos # Nuclear Licensing Engineer 02/03/20 03:59 Baso # Nuclear Licensing Engineer 02/03/20 03:59 Add Manual Diff Complete 02/05/20 04:35 Total Counted 100 02/05/20 04:35 Seg Neutrophils % Nuclear Licensing Engineer 02/05/20 04:35 Seg Neuts % (Manual) 96.0 % (40.0-70.0) H 02/05/20 04:35 Band Neutrophils % 0 % 02/05/20 04:35 Lymphocytes % (Manual) 1.0 % (13.4-35.0) L 02/05/20 04:35 Reactive Lymphs % (Man) 0 % 02/05/20 04:35 Monocytes % (Manual) 1.0 % (0.0-7.3) 02/05/20 04:35 Eosinophils % (Manual) 2.0 % (0.0-4.3) 02/05/20 04:35 Basophils % (Manual) 0 % (0.0-1.8) 02/05/20 04:35 Metamyelocytes % 0 % 02/05/20 04:35 Myelocytes % 0 % 02/05/20 04:35 Promyelocytes % 0 % 02/05/20 04:35 Blast Cells % 0 % 02/05/20 04:35 Nucleated RBC % Not Reportable 02/05/20 04:35 Seg Neutrophils # Nuclear Licensing Engineer 02/03/20 03:59 Seg Neutrophils # Man 23.4 K/mm3 (1.8-7.7) H 02/05/20 04:35 Band Neutrophils # 0.0 K/mm3 02/05/20 04:35 Lymphocytes # (Manual) 0.2 K/mm3 (1.2-5.4) L 02/05/20 04:35 Abs React Lymphs (Man) 0.0 K/mm3 02/05/20 04:35 Monocytes # (Manual) 0.2 K/mm3 (0.0-0.8) 02/05/20 04:35 Eosinophils # (Manual) 0.5 K/mm3 (0.0-0.4) H 02/05/20 04:35 Basophils # (Manual) 0.0 K/mm3 (0.0-0.1) 02/05/20 04:35 Metamyelocytes # 0.0 K/mm3 02/05/20 04:35 Myelocytes # 0.0 K/mm3 02/05/20 04:35 Promyelocytes # 0.0 K/mm3 02/05/20 04:35 Blast Cells # 0.0 K/mm3 02/05/20 04:35 WBC Morphology Not Reportable 02/05/20 04:35 Hypersegmented Neuts Not Reportable 02/05/20 04:35 Hyposegmented Neuts Not Reportable 02/05/20 04:35 Hypogranular Neuts Not Reportable 02/05/20 04:35 Smudge Cells Not Reportable 02/05/20 04:35 Toxic Granulation Not Reportable 02/05/20 04:35 Toxic Vacuolation Not Reportable 02/05/20 04:35 Dohle Bodies Not Reportable 02/05/20 04:35 Pelger-Huet Anomaly Not Reportable 02/05/20 04:35 Armando Rods Not Reportable 02/05/20 04:35 Platelet Estimate Consistent w auto 02/05/20 04:35 Clumped Platelets Not Reportable 02/05/20 04:35 Plt Clumps, EDTA Not Reportable 02/05/20 04:35 Large Platelets Not Reportable 02/05/20 04:35 Giant Platelets Not Reportable 02/05/20 04:35 Platelet Satelliting Not Reportable 02/05/20 04:35 Plt Morphology Comment Not Reportable 02/05/20 04:35 RBC Morphology Not Reportable 02/05/20 04:35 Dimorphic RBCs Not Reportable 02/05/20 04:35 Polychromasia Not Reportable 02/05/20 04:35 Hypochromasia Rare 02/05/20 04:35 Poikilocytosis Not Reportable 02/05/20 04:35 Anisocytosis Few 02/05/20 04:35 Microcytosis Not Reportable 02/05/20 04:35 Macrocytosis Rare 02/05/20 04:35 Spherocytes Not Reportable 02/05/20 04:35 Pappenheimer Bodies Not Reportable 02/05/20 04:35 Sickle Cells Not Reportable 02/05/20 04:35 Target Cells Not Reportable 02/05/20 04:35 Tear Drop Cells Not Reportable 02/05/20 04:35 Ovalocytes Not Reportable 02/05/20 04:35 Helmet Cells Not Reportable 02/05/20 04:35 [place] Bodies Not Reportable 02/05/20 04:35 [place] Rings Not Reportable 02/05/20 04:35 [place] Cells Not Reportable 02/05/20 04:35 Bite Cells Not Reportable 02/05/20 04:35 Crenated Cell Not Reportable 02/05/20 04:35 Elliptocytes Not Reportable 02/05/20 04:35 Acanthocytes (Spur) Not Reportable 02/05/20 04:35 Rouleaux Not Reportable 02/05/20 04:35 Hemoglobin C Crystals Not Reportable 02/05/20 04:35 Schistocytes Not Reportable 02/05/20 04:35 Malaria parasites Not Reportable 02/05/20 04:35 Ney Bodies Not Reportable 02/05/20 04:35 Hem Pathologist Commnt No 02/05/20 04:35 PT 15.6 Sec. (12.2-14.9) H 01/09/20 12:55 INR 1.22 (0.87-1.13) H 01/09/20 12:55 APTT 31.5 Sec. (24.2-36.6) 01/09/20 12:55 D-Dimer 2896.73 ng/mlDDU (0-234) H 02/05/20 13:55 Heparin Anti-Xa Level 0.77 U.I./ml (0.3-0.7) H 02/02/20 05:44 ABG pH 7.351 pH Units (7.350-7.450) 02/08/20 20:45 ABG pCO2 58.7 mm Hg 02/08/20 20:45 ABG pO2 79.1 mm Hg (80.0-90.0) L 02/08/20 20:45 ABG HCO3 31.7 mmol/L (20.0-26.0) H 02/08/20 20:45 ABG O2 Saturation 95.6 % (95.0-99.0) 02/08/20 20:45 ABG O2 Content 17.0 (0.0-44) 02/08/20 20:45 ABG Base Excess 4.6 mmol/L (-2.0-3.0) H 02/08/20 20:45 ABG Hemoglobin 12.9 gm/dl (12.0-16.0) 02/08/20 20:45 ABG Carboxyhemoglobin 1.7 % (0.0-5.0) 02/08/20 20:45 ABG Methemoglobin 0.5 % (0.0-1.5) 02/08/20 20:45 Oxyhemoglobin 93.5 % (95.0-99.0) L 02/08/20 20:45 FiO2 40 % 02/08/20 20:45 Sodium 138 mmol/L (137-145) 02/09/20 04:48 Potassium 3.9 mmol/L (3.6-5.0) 02/09/20 04:48 Chloride 93.9 mmol/L (98-107) L 02/09/20 04:48 Carbon Dioxide 30 mmol/L (22-30) 02/09/20 04:48 Anion Gap 18 mmol/L 02/09/20 04:48 BUN 59 mg/dL (7-17) H 02/09/20 04:48 Creatinine 2.5 mg/dL (0.7-1.2) H 02/09/20 04:48 Estimated GFR 23 ml/min 02/09/20 04:48 BUN/Creatinine Ratio 24 % 02/09/20 04:48 Glucose 309 mg/dL (65-100) H 02/09/20 04:48 POC Glucose 274 (70-105) H 02/11/20 05:34 Hemoglobin A1c 5.0 % (4-6) 01/10/20 06:54 Calcium 8.8 mg/dL (8.4-10.2) 02/09/20 04:48 Phosphorus 3.30 mg/dL (2.5-4.5) 01/12/20 16:01 Magnesium 2.00 mg/dL (1.7-2.3) 01/13/20 06:11 Ferritin > 2000.0 ng/mL (13.0-400.0) H 02/05/20 13:55 Total Bilirubin 0.50 mg/dL (0.1-1.2) 02/02/20 05:44 Direct Bilirubin 0.3 mg/dL (0-0.2) H 02/02/20 05:44 Indirect Bilirubin 0.2 mg/dL 02/02/20 05:44 AST 179 units/L (5-40) H 02/02/20 05:44 ALT 106 units/L (7-56) H 02/02/20 05:44 Alkaline Phosphatase 557 units/L (35-129) H 02/02/20 05:44 Lactate Dehydrogenase 311 units/L (91-180) H 02/05/20 13:55 Troponin T 0.315 ng/mL (0.00-0.029) H* 01/10/20 06:54 C-Reactive Protein 17.30 mg/dL (0.00-1.30) H 02/05/20 13:55 NT-Pro-B Natriuret Pep 40369 pg/mL (0-900) H 01/09/20 12:55 Total Protein 6.1 g/dL (6.3-8.2) L 02/02/20 05:44 Albumin 2.3 g/dL (3.9-5) L 02/02/20 05:44 Albumin/Globulin Ratio 0.6 % 02/02/20 05:44 Triglycerides 56 mg/dL (2-149) 01/30/20 04:04 Cholesterol 123 mg/dL (50-199) 01/09/20 12:55 LDL Cholesterol Direct 66 mg/dL (50-130) 01/09/20 12:55 HDL Cholesterol 47 mg/dL (40-59) 01/09/20 12:55 Cholesterol/HDL Ratio 2.61 % 01/09/20 12:55 Random Vancomycin 23.9 ug/mL (0-40.0) 02/08/20 04:56 Coronavirus (PCR) Negative (Negative) 02/08/20 10:06 Hepatitis A IgM Ab Non-reactive (NonReactive) 01/21/20 23:40 Hep Bs Antigen Non-reactive (Negative) 01/21/20 23:40 Hep B Core IgM Ab Non-reactive (NonReactive) 01/21/20 23:40 Hepatitis C Antibody Non-reactive (NonReactive) 01/21/20 23:40 Miscellaneous Test See scanned result 01/11/20 Unknown Miscellaneous Test See scanned result 01/11/20 Unknown Blood Type O POSITIVE 02/04/20 10:47 Antibody Screen Negative 02/04/20 10:47 Crossmatch See Detail 02/04/20 10:47 Pleitez/IV: Voiding Method Indwelling Catheter IV Catheter Type [Left Chest] Infusaport IV Catheter Type [Right Peripheral IV External Jugular] IV Catheter Type [Left INT / Saline Lock External Jugular] IV Catheter Type [Left Upper AV Graft arm] Active Medications - Current Medications Current Medications: Generic Name Dose Route Start Last Admin Trade Name Freq PRN Reason Stop Dose Admin Acetaminophen 650 mg 01/09/20 16:33 02/05/20 05:58 Tylenol PO 650 mg Q4H PRN Administration Pain MILD(1-3)/Fever >100.5/MEANS Lipase/Protease/Amylase 1 each 01/23/20 14:28 02/07/20 13:18 Pancreestrella Albarran 10,500 Unit FEEDTUBE 1 each PRN PRN Administration For Clogged Feeding Tube Atorvastatin Calcium 40 mg 01/09/20 22:00 02/10/20 22:10 Lipitor PO 40 mg QHS PHILLY Administration Dextrose 50 ml 01/23/20 07:26 02/02/20 11:33 D50w (25gm) Syringe IV 50 ml Q30MIN PRN Administration BLOOD GLUCOSE < 70 Dextrose 25 ml 01/24/20 08:58 01/24/20 13:41 D50w (25gm) Syringe IV 25 ml Q4H PRN Administration BG < 80 MG/DL Docusate Sodium 100 mg 01/25/20 22:00 02/10/20 22:09 Colace PO 100 mg BID PHILLY Administration Epoetin Helio 20,000 unit 02/04/20 12:00 02/04/20 13:00 Procrit SUB-Q 20,000 unit SILVERIO PHILLY Administration Famotidine 20 mg 01/09/20 22:00 02/10/20 09:06 Pepcid PO 20 mg DAILY PHILLY Administration Heparin Sodium (Porcine) 5,000 unit 02/07/20 10:00 02/10/20 22:09 Heparin SUB-Q 5,000 unit Q12HR PHILLY Administration Norepinephrine 4 mg in 250 mls @ 7.5 mls/hr 01/21/20 18:00 02/09/20 10:21 Levophed Drip 4 Mg/Ns 250 Ml IV 0 mcg/min TITR PHILLY 0 mls/hr Titration Protocol 2 MCG/MIN Propofol 1,000 mg in 100 mls @ 2.265 mls/hr 01/22/20 09:00 01/30/20 14:25 Diprivan 10 Mg/Ml IV 0 mcg/kg/min TITR PHILLY 0 mls/hr Titration Protocol 5 MCG/KG/MIN Sodium Chloride 100 mls @ 999 mls/hr 02/01/20 09:47 Nacl 0.9% IV SILVERIO PRN Hypotension Cefepime HCl 1 gm in 100 mls @ 200 mls/hr 02/04/20 14:00 02/10/20 09:04 Cefepime/Ns 1 Gm/100 Ml IV 02/11/20 13:59 200 mls/hr Q24HR PHILLY Administration Protocol Fluconazole 200 mg in 100 mls @ 100 mls/hr 02/04/20 13:00 02/10/20 09:04 Diflucan IV 02/11/20 12:59 100 mls/hr Q24HR PHILLY Administration Protocol Insulin Glargine 15 units 02/10/20 13:00 02/10/20 12:54 Lantus SUB-Q 15 units DAILY PHILLY Administration Insulin Human Lispro 0 unit 02/07/20 12:00 02/11/20 05:57 Humalog SUB-Q 3 unit Q6HR PHILLY Administration Protocol Lorazepam 2 mg 01/23/20 15:36 Ativan IV Q10MIN PRN Agitation Methylprednisolone Sodium Succinate 40 mg 02/07/20 14:00 02/11/20 05:57 Solu-Medrol IV 40 mg Q8HR PHILLY Administration Ondansetron HCl 4 mg 01/09/20 16:33 01/20/20 10:19 Zofran IV 4 mg Q8H PRN Administration Nausea And Vomiting Simple Syrup 15 ml 01/23/20 14:28 Simple Syrup FEEDTUBE PRN PRN Hypoglycemia Simple Syrup 30 ml 01/23/20 14:28 Simple Syrup FEEDTUBE PRN PRN Hypoglycemia Sodium Bicarbonate 325 mg 01/23/20 14:28 Sodium Bicarbonate FEEDTUBE PRN PRN For Clogged Feeding Tube Sodium Chloride 10 ml 01/09/20 22:00 02/11/20 05:58 Sodium Chloride Flush Syringe 10 Ml IV Not Given BID PHILLY Sodium Chloride 10 ml 01/09/20 16:33 Sodium Chloride Flush Syringe 10 Ml IV PRN PRN LINE FLUSH Valsartan 80 mg 01/10/20 10:00 02/10/20 09:04 Diovan PO 80 mg DAILY PHILLY Administration Nutrition/Malnutrition Assess - Dietary Evaluation Nutrition/Malnutrition Findings: Nutrition Notes Start: 01/17/20 13:49 Freq: Status: Active Protocol: Document 02/06/20 14:10 LM (Rec: 02/07/20 14:12 LM [id number]) Nutrition Notes Initial or Follow up Reassessment Current Diagnosis CKD (stage V CKD),Diabetes, Hypertension,Heart Failure, Respiratory Failure Other Pertinent Diagnosis on HD, Bilat pneu, COVID-19 (+ ) Current Diet Nepro 1.8 at 35ml/hr Labs/Tests Na 136 Pertinent Medications Reviewed Height 5 ft 6 in Weight 78 kg Rose Body Weight (kg) 59.09 BMI 27.7 Subjective/Other Information Per RN notes TF is tolerating TF at goal. Percent of energy/protein needs met: 94%/75% Burn Absent Trauma Absent Current % PO Negligible Minimum of two criteria Yes Fluid Accumulation Mild (non-severe) Reduced Explosive Technician Strength Measurably Reduced (severe) #1 Nutrition Diagnosis Malnutrition Diagnosis Progress(for reassessment Continues documentation) Is patient on ventilator? No Calculation Used for Recommendations [facility] Additional Notes Protein: 91-151g (1.2-2g/kg) Fluid: per MD Nutrition Intervention Change Diet Order: Continue TF Nutrition Support: Nepro 1.8 at 35ml/hr (goal rate) Flush 50ml q4hr for hyponatremia Flush 150ml q4h once hyponatremia resolves Kcal 1,512 Protein (gm) 68 Fluid (mL) 611 Goal #1 TF tolerance Goal #2 Meet at least 75% of energy and protein needs via TF Anticipated Discharge Needs: unable to determine at this time Follow-Up By: 02/12/20 Additional Comments F/U for TF tolerance, Na lab
--- NOTE | 2020-02-11 09:43 | Progress Note ---
Assessment and Plan 64 y/o female with COVID positive, viral pneumonia with some pulmonary vascular congestion superimposed. 1. Back on PSV this am. Will ask RT to make sure they follow volumes closely. 2. HD per renal. will likely do again Today. 3. Changed back to prophylactic dosing for VTE as not confirmed the presence of VTE 4. Will speak with CM about trach and peg requirements for LTACH. If needs to be done here will consult surgery on Tuesday. Will continue isolation for now, despite negative COVID testing. CCT 31 minutes. Subjective Date of service: 02/11/20 Principal diagnosis: Pneumonia Interval history: No acute events. Rested on Vent last night, back on PSV this am. NO gas this am. Objective Vital Signs - 12hr 02/10/20 02/10/20 02/10/20 21:45 22:00 22:15 Temperature Pulse Rate 95 H 94 H 95 H Pulse Rate [ Left Radial] Respiratory 22 23 22 Rate Blood Pressure 120/55 117/49 117/49 O2 Sat by Pulse 100 100 100 Oximetry 02/10/20 02/10/20 02/10/20 22:30 22:45 23:00 Temperature Pulse Rate 94 H 93 H 94 H Pulse Rate [ Left Radial] Respiratory 23 23 22 Rate Blood Pressure 119/56 119/56 120/57 O2 Sat by Pulse 100 100 100 Oximetry 02/10/20 02/10/20 02/10/20 23:15 23:23 23:30 Temperature 99.5 F Pulse Rate 95 H 95 H Pulse Rate [ Left Radial] Respiratory 24 24 Rate Blood Pressure 120/57 130/59 O2 Sat by Pulse 100 100 Oximetry 02/10/20 02/11/20 02/11/20 23:45 00:00 00:05 Temperature Pulse Rate 96 H 98 H 94 H Pulse Rate [ Left Radial] Respiratory 25 H 24 25 H Rate Blood Pressure 120/57 125/57 125/57 O2 Sat by Pulse 100 100 100 Oximetry 02/11/20 02/11/20 02/11/20 00:09 00:15 00:30 Temperature Pulse Rate 95 H 94 H 94 H Pulse Rate [ Left Radial] Respiratory 24 24 Rate Blood Pressure 125/57 125/57 129/56 O2 Sat by Pulse 100 100 100 Oximetry 02/11/20 02/11/20 02/11/20 00:45 01:00 01:15 Temperature Pulse Rate 94 H 93 H 93 H Pulse Rate [ Left Radial] Respiratory 25 H 25 H 26 H Rate Blood Pressure 129/56 131/56 131/56 O2 Sat by Pulse 100 100 100 Oximetry 02/11/20 02/11/20 02/11/20 01:30 01:45 02:00 Temperature Pulse Rate 94 H 96 H 94 H Pulse Rate [ Left Radial] Respiratory 24 29 H 26 H Rate Blood Pressure 126/60 131/56 131/57 O2 Sat by Pulse 100 99 100 Oximetry 02/11/20 02/11/20 02/11/20 02:15 02:31 02:45 Temperature Pulse Rate 92 H 93 H 94 H Pulse Rate [ Left Radial] Respiratory 24 25 H 24 Rate Blood Pressure 131/57 124/51 124/51 O2 Sat by Pulse 100 100 100 Oximetry 02/11/20 02/11/20 02/11/20 03:00 03:15 03:30 Temperature Pulse Rate 94 H 94 H 94 H Pulse Rate [ Left Radial] Respiratory 23 26 H 25 H Rate Blood Pressure 119/57 119/57 122/56 O2 Sat by Pulse 100 100 100 Oximetry 02/11/20 02/11/20 02/11/20 03:37 03:45 04:00 Temperature 99.8 F H Pulse Rate 93 H 93 H Pulse Rate [ 88 Left Radial] Respiratory 26 H 30 H Rate Blood Pressure 122/56 120/56 O2 Sat by Pulse 100 100 Oximetry 02/11/20 02/11/20 02/11/20 04:15 04:30 04:41 Temperature Pulse Rate 94 H 95 H 95 H Pulse Rate [ Left Radial] Respiratory 23 24 Rate Blood Pressure 120/56 127/57 127/57 O2 Sat by Pulse 100 100 100 Oximetry 02/11/20 02/11/20 02/11/20 04:45 05:00 05:15 Temperature Pulse Rate 95 H 96 H 94 H Pulse Rate [ Left Radial] Respiratory 27 H 26 H 27 H Rate Blood Pressure 127/57 133/58 133/58 O2 Sat by Pulse 98 100 100 Oximetry 02/11/20 02/11/20 02/11/20 05:30 05:45 06:00 Temperature Pulse Rate 97 H 97 H 97 H Pulse Rate [ Left Radial] Respiratory 27 H 25 H 29 H Rate Blood Pressure 126/55 126/55 135/61 O2 Sat by Pulse 100 100 100 Oximetry 02/11/20 02/11/20 07:45 07:55 Temperature Pulse Rate 95 H 97 H Pulse Rate [ Left Radial] Respiratory 22 Rate Blood Pressure 156/69 156/69 O2 Sat by Pulse 100 99 Oximetry Constitutional: other (orally intubated, not sedated currently on vent. on AC 450 50) Eyes: non-icteric ENT: oropharynx moist Neck: supple Effort: normal Ascultation: Bilateral: rales Cardiovascular: regular rate and rhythm (no mrg) Gastrointestinal: normoactive bowel sounds, soft, non-tender, non-distended Integumentary: normal Extremities: no cyanosis, no edema, pink and warm Neurologic: unable to assess Psychiatric: mood appropriate, affect normal CBC and BMP: 02/09/20 04:48 02/09/20 04:48 ABG, PT/INR, D-dimer: ABG ABG pH 7.351 pH Units (7.350-7.450) 02/08/20 20:45 ABG pCO2 58.7 mm Hg 02/08/20 20:45 ABG pO2 79.1 mm Hg (80.0-90.0) L 02/08/20 20:45 ABG O2 Saturation 95.6 % (95.0-99.0) 02/08/20 20:45 PT/INR, D-dimer PT 15.6 Sec. (12.2-14.9) H 01/09/20 12:55 INR 1.22 (0.87-1.13) H 01/09/20 12:55 D-Dimer 2896.73 ng/mlDDU (0-234) H 02/05/20 13:55 Abnormal lab findings: Abnormal Labs 01/09/20 01/09/20 01/09/20 12:55 12:55 12:55 WBC 4.4 L RBC 3.44 L Hgb Hct MCV RDW 17.0 H Plt Count Lymph % (Auto) 6.8 L Tate % (Auto) 13.6 H Lymph # 0.3 L Seg Neutrophils % 79.0 H Seg Neuts % (Manual) Lymphocytes % (Manual) Nucleated RBC % Seg Neutrophils # Man Lymphocytes # (Manual) Monocytes # (Manual) Eosinophils # (Manual) PT 15.6 H INR 1.22 H D-Dimer Heparin Anti-Xa Level ABG pH ABG pO2 ABG HCO3 ABG O2 Saturation ABG Base Excess ABG Hemoglobin Oxyhemoglobin Sodium 130 L Potassium Chloride 88.9 L Carbon Dioxide 20 L BUN 41 H Creatinine 7.6 H Glucose 115 H POC Glucose Calcium Magnesium Ferritin Direct Bilirubin AST ALT Alkaline Phosphatase 153 H Lactate Dehydrogenase Troponin T 0.382 H* C-Reactive Protein NT-Pro-B Natriuret Pep 33301 H Total Protein Albumin 3.2 L Crossmatch 01/09/20 01/10/20 01/10/20 20:14 00:16 06:54 WBC 3.3 L RBC 3.00 L Hgb 9.2 L Hct 27.8 L MCV RDW 17.2 H Plt Count Lymph % (Auto) 8.9 L Tate % (Auto) 11.5 H Lymph # 0.3 L Seg Neutrophils % 79.1 H Seg Neuts % (Manual) Lymphocytes % (Manual) Nucleated RBC % Seg Neutrophils # Man Lymphocytes # (Manual) Monocytes # (Manual) Eosinophils # (Manual) PT INR D-Dimer Heparin Anti-Xa Level ABG pH ABG pO2 ABG HCO3 ABG O2 Saturation ABG Base Excess ABG Hemoglobin Oxyhemoglobin Sodium Potassium Chloride Carbon Dioxide BUN Creatinine Glucose POC Glucose Calcium Magnesium Ferritin Direct Bilirubin AST ALT Alkaline Phosphatase Lactate Dehydrogenase Troponin T 0.349 H* 0.328 H* C-Reactive Protein NT-Pro-B Natriuret Pep Total Protein Albumin Crossmatch 01/10/20 01/10/20 01/11/20 06:54 06:54 16:45 WBC RBC Hgb Hct MCV RDW Plt Count Lymph % (Auto) Tate % (Auto) Lymph # Seg Neutrophils % Seg Neuts % (Manual) Lymphocytes % (Manual) Nucleated RBC % Seg Neutrophils # Man Lymphocytes # (Manual) Monocytes # (Manual) Eosinophils # (Manual) PT INR D-Dimer Heparin Anti-Xa Level ABG pH ABG pO2 ABG HCO3 ABG O2 Saturation ABG Base Excess ABG Hemoglobin Oxyhemoglobin Sodium 133 L Potassium Chloride 90.6 L Carbon Dioxide BUN 50 H Creatinine 8.4 H Glucose 101 H POC Glucose 106 H Calcium 8.1 L Magnesium Ferritin Direct Bilirubin AST ALT Alkaline Phosphatase 148 H Lactate Dehydrogenase Troponin T 0.315 H* C-Reactive Protein NT-Pro-B Natriuret Pep Total Protein 5.4 L Albumin 2.7 L Crossmatch 01/12/20 01/13/20 01/13/20 16:01 06:11 06:11 WBC 3.1 L RBC 3.25 L Hgb 9.8 L Hct MCV RDW 17.2 H Plt Count 136 L Lymph % (Auto) Tate % (Auto) Lymph # Seg Neutrophils % Seg Neuts % (Manual) Lymphocytes % (Manual) Nucleated RBC % Seg Neutrophils # Man Lymphocytes # (Manual) Monocytes # (Manual) Eosinophils # (Manual) PT INR D-Dimer Heparin Anti-Xa Level ABG pH ABG pO2 ABG HCO3 ABG O2 Saturation ABG Base Excess ABG Hemoglobin Oxyhemoglobin Sodium 135 L Potassium Chloride 93.4 L Carbon Dioxide BUN 19 H Creatinine 4.5 H Glucose 120 H POC Glucose Calcium 7.8 L Magnesium 1.40 L Ferritin Direct Bilirubin AST ALT Alkaline Phosphatase Lactate Dehydrogenase Troponin T C-Reactive Protein NT-Pro-B Natriuret Pep Total Protein Albumin Crossmatch 01/16/20 01/16/20 01/16/20 08:35 11:49 14:11 WBC RBC Hgb Hct MCV RDW Plt Count Lymph % (Auto) Tate % (Auto) Lymph # Seg Neutrophils % Seg Neuts % (Manual) Lymphocytes % (Manual) Nucleated RBC % Seg Neutrophils # Man Lymphocytes # (Manual) Monocytes # (Manual) Eosinophils # (Manual) PT INR D-Dimer Heparin Anti-Xa Level ABG pH ABG pO2 48.4 L ABG HCO3 30.5 H ABG O2 Saturation 81.9 L ABG Base Excess 4.6 H ABG Hemoglobin 10.5 L Oxyhemoglobin 80.1 L Sodium Potassium Chloride Carbon Dioxide BUN Creatinine Glucose POC Glucose 126 H 119 H Calcium Magnesium Ferritin Direct Bilirubin AST ALT Alkaline Phosphatase Lactate Dehydrogenase Troponin T C-Reactive Protein NT-Pro-B Natriuret Pep Total Protein Albumin Crossmatch 01/16/20 01/16/20 01/16/20 15:38 15:38 15:38 WBC RBC Hgb Hct MCV RDW Plt Count Lymph % (Auto) Tate % (Auto) Lymph # Seg Neutrophils % Seg Neuts % (Manual) Lymphocytes % (Manual) Nucleated RBC % Seg Neutrophils # Man Lymphocytes # (Manual) Monocytes # (Manual) Eosinophils # (Manual) PT INR D-Dimer 1104.64 H Heparin Anti-Xa Level ABG pH ABG pO2 ABG HCO3 ABG O2 Saturation ABG Base Excess ABG Hemoglobin Oxyhemoglobin Sodium Potassium Chloride Carbon Dioxide BUN Creatinine Glucose POC Glucose Calcium Magnesium Ferritin > 2000.0 H Direct Bilirubin AST ALT Alkaline Phosphatase Lactate Dehydrogenase 690 H Troponin T C-Reactive Protein 24.10 H NT-Pro-B Natriuret Pep Total Protein Albumin Crossmatch 01/16/20 01/18/20 01/18/20 18:11 06:25 06:25 WBC RBC 3.15 L Hgb 9.4 L Hct 29.4 L MCV RDW 17.5 H Plt Count 135 L Lymph % (Auto) 3.8 L Tate % (Auto) Lymph # 0.2 L Seg Neutrophils % 88.8 H Seg Neuts % (Manual) Lymphocytes % (Manual) Nucleated RBC % Seg Neutrophils # Man Lymphocytes # (Manual) Monocytes # (Manual) Eosinophils # (Manual) PT INR D-Dimer Heparin Anti-Xa Level ABG pH ABG pO2 ABG HCO3 ABG O2 Saturation ABG Base Excess ABG Hemoglobin Oxyhemoglobin Sodium Potassium Chloride 96.8 L Carbon Dioxide BUN 26 H Creatinine 4.2 H Glucose 115 H POC Glucose 130 H Calcium 8.2 L Magnesium Ferritin Direct Bilirubin AST ALT Alkaline Phosphatase Lactate Dehydrogenase 537 H Troponin T C-Reactive Protein 17.10 H NT-Pro-B Natriuret Pep Total Protein Albumin Crossmatch 01/18/20 01/18/20 01/18/20 06:25 06:25 12:15 WBC RBC Hgb Hct MCV RDW Plt Count Lymph % (Auto) Tate % (Auto) Lymph # Seg Neutrophils % Seg Neuts % (Manual) Lymphocytes % (Manual) Nucleated RBC % Seg Neutrophils # Man Lymphocytes # (Manual) Monocytes # (Manual) Eosinophils # (Manual) PT INR D-Dimer 938.03 H Heparin Anti-Xa Level ABG pH ABG pO2 66.5 L ABG HCO3 30.1 H ABG O2 Saturation 93.2 L ABG Base Excess 4.6 H ABG Hemoglobin 10.0 L Oxyhemoglobin 91.3 L Sodium Potassium Chloride Carbon Dioxide BUN Creatinine Glucose POC Glucose Calcium Magnesium Ferritin 3105.0 H Direct Bilirubin AST ALT Alkaline Phosphatase Lactate Dehydrogenase Troponin T C-Reactive Protein NT-Pro-B Natriuret Pep Total Protein Albumin Crossmatch 01/20/20 01/20/20 01/20/20 07:37 07:37 07:37 WBC RBC Hgb Hct MCV RDW Plt Count Lymph % (Auto) Tate % (Auto) Lymph # Seg Neutrophils % Seg Neuts % (Manual) Lymphocytes % (Manual) Nucleated RBC % Seg Neutrophils # Man Lymphocytes # (Manual) Monocytes # (Manual) Eosinophils # (Manual) PT INR D-Dimer 2072.25 H Heparin Anti-Xa Level ABG pH ABG pO2 ABG HCO3 ABG O2 Saturation ABG Base Excess ABG Hemoglobin Oxyhemoglobin Sodium Potassium Chloride Carbon Dioxide BUN Creatinine Glucose POC Glucose Calcium Magnesium Ferritin 1826.0 H Direct Bilirubin AST ALT Alkaline Phosphatase Lactate Dehydrogenase 496 H Troponin T C-Reactive Protein 19.30 H NT-Pro-B Natriuret Pep Total Protein Albumin Crossmatch 01/20/20 01/21/20 01/21/20 17:30 03:59 17:35 WBC RBC Hgb Hct MCV RDW Plt Count Lymph % (Auto) Tate % (Auto) Lymph # Seg Neutrophils % Seg Neuts % (Manual) Lymphocytes % (Manual) Nucleated RBC % Seg Neutrophils # Man Lymphocytes # (Manual) Monocytes # (Manual) Eosinophils # (Manual) PT INR D-Dimer Heparin Anti-Xa Level ABG pH ABG pO2 61.1 L 67.4 L ABG HCO3 29.9 H 26.2 H ABG O2 Saturation 91.7 L 93.4 L ABG Base Excess 4.9 H ABG Hemoglobin 9.0 L 9.1 L Oxyhemoglobin 89.5 L 91.1 L Sodium 136 L Potassium Chloride Carbon Dioxide BUN 36 H Creatinine 4.9 H Glucose POC Glucose Calcium Magnesium Ferritin Direct Bilirubin AST ALT Alkaline Phosphatase Lactate Dehydrogenase Troponin T C-Reactive Protein NT-Pro-B Natriuret Pep Total Protein Albumin Crossmatch 01/21/20 01/22/20 01/22/20 Unknown 03:41 03:41 WBC RBC Hgb Hct MCV RDW Plt Count Lymph % (Auto) Tate % (Auto) Lymph # Seg Neutrophils % Seg Neuts % (Manual) Lymphocytes % (Manual) Nucleated RBC % Seg Neutrophils # Man Lymphocytes # (Manual) Monocytes # (Manual) Eosinophils # (Manual) PT INR D-Dimer Heparin Anti-Xa Level ABG pH 7.465 H ABG pO2 48.9 L ABG HCO3 26.6 H ABG O2 Saturation 85.7 L ABG Base Excess ABG Hemoglobin 10.4 L Oxyhemoglobin 83.5 L Sodium Potassium Chloride Carbon Dioxide BUN Creatinine Glucose POC Glucose Calcium Magnesium Ferritin 6071.0 H Direct Bilirubin AST ALT Alkaline Phosphatase Lactate Dehydrogenase 963 H Troponin T C-Reactive Protein 30.00 H NT-Pro-B Natriuret Pep Total Protein Albumin Crossmatch 01/22/20 01/22/20 01/22/20 03:41 07:47 11:20 WBC RBC Hgb Hct MCV RDW Plt Count Lymph % (Auto) Tate % (Auto) Lymph # Seg Neutrophils % Seg Neuts % (Manual) Lymphocytes % (Manual) Nucleated RBC % Seg Neutrophils # Man Lymphocytes # (Manual) Monocytes # (Manual) Eosinophils # (Manual) PT INR D-Dimer > 55285 H Heparin Anti-Xa Level ABG pH ABG pO2 66.7 L ABG HCO3 28.7 H ABG O2 Saturation 91.9 L ABG Base Excess ABG Hemoglobin 9.1 L Oxyhemoglobin 89.5 L Sodium Potassium Chloride 94.3 L Carbon Dioxide BUN 53 H Creatinine 6.5 H Glucose POC Glucose Calcium Magnesium Ferritin Direct Bilirubin AST ALT Alkaline Phosphatase Lactate Dehydrogenase Troponin T C-Reactive Protein NT-Pro-B Natriuret Pep Total Protein Albumin Crossmatch 01/22/20 01/22/20 01/23/20 11:49 Unknown 04:55 WBC 15.1 H RBC 3.05 L Hgb 8.8 L Hct 28.3 L MCV RDW 17.8 H Plt Count 125 L Lymph % (Auto) Tate % (Auto) Lymph # Seg Neutrophils % Seg Neuts % (Manual) Lymphocytes % (Manual) Nucleated RBC % Seg Neutrophils # Man Lymphocytes # (Manual) Monocytes # (Manual) Eosinophils # (Manual) PT INR D-Dimer Heparin Anti-Xa Level ABG pH 7.340 L ABG pO2 77.7 L 136.3 H ABG HCO3 27.6 H 28.8 H ABG O2 Saturation ABG Base Excess ABG Hemoglobin 9.3 L 10.9 L Oxyhemoglobin 94.2 L Sodium Potassium Chloride Carbon Dioxide BUN Creatinine Glucose POC Glucose Calcium Magnesium Ferritin Direct Bilirubin AST ALT Alkaline Phosphatase Lactate Dehydrogenase Troponin T C-Reactive Protein NT-Pro-B Natriuret Pep Total Protein Albumin Crossmatch 01/23/20 01/23/20 01/23/20 06:23 07:07 12:23 WBC RBC Hgb Hct MCV RDW Plt Count Lymph % (Auto) Tate % (Auto) Lymph # Seg Neutrophils % Seg Neuts % (Manual) Lymphocytes % (Manual) Nucleated RBC % Seg Neutrophils # Man Lymphocytes # (Manual) Monocytes # (Manual) Eosinophils # (Manual) PT INR D-Dimer Heparin Anti-Xa Level ABG pH ABG pO2 ABG HCO3 ABG O2 Saturation ABG Base Excess ABG Hemoglobin Oxyhemoglobin Sodium Potassium Chloride Carbon Dioxide BUN Creatinine Glucose POC Glucose 57 L 127 H 131 H Calcium Magnesium Ferritin Direct Bilirubin AST ALT Alkaline Phosphatase Lactate Dehydrogenase Troponin T C-Reactive Protein NT-Pro-B Natriuret Pep Total Protein Albumin Crossmatch 01/23/20 01/23/20 01/24/20 Unknown Unknown 04:00 WBC 16.2 H RBC 3.08 L Hgb 8.9 L Hct 28.6 L MCV RDW 17.8 H Plt Count 139 L Lymph % (Auto) Tate % (Auto) Lymph # Seg Neutrophils % Seg Neuts % (Manual) Lymphocytes % (Manual) Nucleated RBC % Seg Neutrophils # Man Lymphocytes # (Manual) Monocytes # (Manual) Eosinophils # (Manual) PT INR D-Dimer Heparin Anti-Xa Level < 0.10 L ABG pH ABG pO2 ABG HCO3 ABG O2 Saturation ABG Base Excess ABG Hemoglobin Oxyhemoglobin Sodium Potassium Chloride Carbon Dioxide BUN Creatinine Glucose POC Glucose Calcium Magnesium Ferritin 4195.0 H Direct Bilirubin AST ALT Alkaline Phosphatase Lactate Dehydrogenase Troponin T C-Reactive Protein NT-Pro-B Natriuret Pep Total Protein Albumin Crossmatch 01/24/20 01/24/20 01/24/20 04:00 04:00 04:00 WBC RBC Hgb Hct MCV RDW Plt Count Lymph % (Auto) Tate % (Auto) Lymph # Seg Neutrophils % Seg Neuts % (Manual) Lymphocytes % (Manual) Nucleated RBC % Seg Neutrophils # Man Lymphocytes # (Manual) Monocytes # (Manual) Eosinophils # (Manual) PT INR D-Dimer 5783.11 H Heparin Anti-Xa Level ABG pH 7.188 L* ABG pO2 70.8 L ABG HCO3 32.2 H ABG O2 Saturation 90.4 L ABG Base Excess ABG Hemoglobin 8.5 L Oxyhemoglobin 88.1 L Sodium Potassium Chloride Carbon Dioxide BUN Creatinine Glucose POC Glucose Calcium Magnesium Ferritin Direct Bilirubin AST ALT Alkaline Phosphatase Lactate Dehydrogenase 474 H Troponin T C-Reactive Protein 29.80 H NT-Pro-B Natriuret Pep Total Protein Albumin Crossmatch 01/24/20 01/24/20 01/24/20 05:20 05:51 09:14 WBC RBC Hgb Hct MCV RDW Plt Count Lymph % (Auto) Tate % (Auto) Lymph # Seg Neutrophils % Seg Neuts % (Manual) Lymphocytes % (Manual) Nucleated RBC % Seg Neutrophils # Man Lymphocytes # (Manual) Monocytes # (Manual) Eosinophils # (Manual) PT INR D-Dimer Heparin Anti-Xa Level ABG pH 7.214 L ABG pO2 71.7 L ABG HCO3 31.5 H ABG O2 Saturation 91.8 L ABG Base Excess ABG Hemoglobin 9.1 L Oxyhemoglobin 89.3 L Sodium Potassium Chloride Carbon Dioxide BUN Creatinine Glucose POC Glucose 50 L 53 L Calcium Magnesium Ferritin Direct Bilirubin AST ALT Alkaline Phosphatase Lactate Dehydrogenase Troponin T C-Reactive Protein NT-Pro-B Natriuret Pep Total Protein Albumin Crossmatch 01/24/20 01/24/20 01/24/20 15:10 18:04 21:10 WBC RBC Hgb Hct MCV RDW Plt Count Lymph % (Auto) Tate % (Auto) Lymph # Seg Neutrophils % Seg Neuts % (Manual) Lymphocytes % (Manual) Nucleated RBC % Seg Neutrophils # Man Lymphocytes # (Manual) Monocytes # (Manual) Eosinophils # (Manual) PT INR D-Dimer Heparin Anti-Xa Level ABG pH ABG pO2 ABG HCO3 ABG O2 Saturation ABG Base Excess ABG Hemoglobin Oxyhemoglobin Sodium Potassium Chloride Carbon Dioxide BUN Creatinine Glucose POC Glucose 114 H 51 L 144 H Calcium Magnesium Ferritin Direct Bilirubin AST ALT Alkaline Phosphatase Lactate Dehydrogenase Troponin T C-Reactive Protein NT-Pro-B Natriuret Pep Total Protein Albumin Crossmatch 01/24/20 01/25/20 01/25/20 Unknown 00:32 03:50 WBC 13.0 H RBC 3.10 L Hgb 9.2 L Hct 29.0 L MCV RDW 17.7 H Plt Count Lymph % (Auto) Tate % (Auto) Lymph # Seg Neutrophils % Seg Neuts % (Manual) 92.0 H Lymphocytes % (Manual) 5.0 L Nucleated RBC % Seg Neutrophils # Man 12.0 H Lymphocytes # (Manual) 0.7 L Monocytes # (Manual) Eosinophils # (Manual) PT INR D-Dimer Heparin Anti-Xa Level ABG pH 7.291 L ABG pO2 71.3 L ABG HCO3 30.6 H ABG O2 Saturation 93.6 L ABG Base Excess 3.3 H ABG Hemoglobin 8.1 L Oxyhemoglobin 91.2 L Sodium Potassium Chloride Carbon Dioxide BUN Creatinine Glucose POC Glucose 114 H Calcium Magnesium Ferritin Direct Bilirubin AST ALT Alkaline Phosphatase Lactate Dehydrogenase Troponin T C-Reactive Protein NT-Pro-B Natriuret Pep Total Protein Albumin Crossmatch 01/25/20 01/25/20 01/25/20 04:22 06:05 17:28 WBC RBC Hgb Hct MCV RDW Plt Count Lymph % (Auto) Tate % (Auto) Lymph # Seg Neutrophils % Seg Neuts % (Manual) Lymphocytes % (Manual) Nucleated RBC % Seg Neutrophils # Man Lymphocytes # (Manual) Monocytes # (Manual) Eosinophils # (Manual) PT INR D-Dimer Heparin Anti-Xa Level ABG pH 7.304 L ABG pO2 69.5 L ABG HCO3 29.7 H ABG O2 Saturation 93.2 L ABG Base Excess ABG Hemoglobin 8.7 L Oxyhemoglobin 90.7 L Sodium Potassium Chloride Carbon Dioxide BUN Creatinine Glucose POC Glucose 136 H 127 H Calcium Magnesium Ferritin Direct Bilirubin AST ALT Alkaline Phosphatase Lactate Dehydrogenase Troponin T C-Reactive Protein NT-Pro-B Natriuret Pep Total Protein Albumin Crossmatch 01/26/20 01/26/20 01/26/20 00:20 02:31 02:31 WBC RBC Hgb Hct MCV RDW Plt Count Lymph % (Auto) Tate % (Auto) Lymph # Seg Neutrophils % Seg Neuts % (Manual) Lymphocytes % (Manual) Nucleated RBC % Seg Neutrophils # Man Lymphocytes # (Manual) Monocytes # (Manual) Eosinophils # (Manual) PT INR D-Dimer Heparin Anti-Xa Level ABG pH ABG pO2 ABG HCO3 ABG O2 Saturation ABG Base Excess ABG Hemoglobin Oxyhemoglobin Sodium Potassium Chloride Carbon Dioxide BUN Creatinine Glucose POC Glucose 127 H Calcium Magnesium Ferritin 3764.0 H Direct Bilirubin AST ALT Alkaline Phosphatase Lactate Dehydrogenase 393 H Troponin T C-Reactive Protein 28.60 H NT-Pro-B Natriuret Pep Total Protein Albumin Crossmatch 01/26/20 01/26/20 01/26/20 02:31 04:45 05:24 WBC RBC Hgb Hct MCV RDW Plt Count Lymph % (Auto) Tate % (Auto) Lymph # Seg Neutrophils % Seg Neuts % (Manual) Lymphocytes % (Manual) Nucleated RBC % Seg Neutrophils # Man Lymphocytes # (Manual) Monocytes # (Manual) Eosinophils # (Manual) PT INR D-Dimer 3828.76 H Heparin Anti-Xa Level ABG pH ABG pO2 ABG HCO3 30.8 H ABG O2 Saturation ABG Base Excess 4.9 H ABG Hemoglobin 7.4 L Oxyhemoglobin 94.6 L Sodium Potassium Chloride Carbon Dioxide BUN Creatinine Glucose POC Glucose 121 H Calcium Magnesium Ferritin Direct Bilirubin AST ALT Alkaline Phosphatase Lactate Dehydrogenase Troponin T C-Reactive Protein NT-Pro-B Natriuret Pep Total Protein Albumin Crossmatch 01/26/20 01/26/20 01/26/20 10:40 12:36 18:10 WBC RBC Hgb Hct MCV RDW Plt Count Lymph % (Auto) Tate % (Auto) Lymph # Seg Neutrophils % Seg Neuts % (Manual) Lymphocytes % (Manual) Nucleated RBC % Seg Neutrophils # Man Lymphocytes # (Manual) Monocytes # (Manual) Eosinophils # (Manual) PT INR D-Dimer Heparin Anti-Xa Level ABG pH ABG pO2 ABG HCO3 ABG O2 Saturation ABG Base Excess ABG Hemoglobin Oxyhemoglobin Sodium Potassium Chloride Carbon Dioxide BUN Creatinine Glucose POC Glucose 119 H 126 H 159 H Calcium Magnesium Ferritin Direct Bilirubin AST ALT Alkaline Phosphatase Lactate Dehydrogenase Troponin T C-Reactive Protein NT-Pro-B Natriuret Pep Total Protein Albumin Crossmatch 01/27/20 01/27/20 01/27/20 03:45 06:15 12:19 WBC RBC Hgb Hct MCV RDW Plt Count Lymph % (Auto) Tate % (Auto) Lymph # Seg Neutrophils % Seg Neuts % (Manual) Lymphocytes % (Manual) Nucleated RBC % Seg Neutrophils # Man Lymphocytes # (Manual) Monocytes # (Manual) Eosinophils # (Manual) PT INR D-Dimer Heparin Anti-Xa Level ABG pH 7.307 L ABG pO2 91.1 H ABG HCO3 30.5 H ABG O2 Saturation ABG Base Excess 3.4 H ABG Hemoglobin 8.7 L Oxyhemoglobin 94.3 L Sodium Potassium Chloride Carbon Dioxide BUN Creatinine Glucose POC Glucose 147 H 164 H Calcium Magnesium Ferritin Direct Bilirubin AST ALT Alkaline Phosphatase Lactate Dehydrogenase Troponin T C-Reactive Protein NT-Pro-B Natriuret Pep Total Protein Albumin Crossmatch 01/27/20 01/28/20 01/28/20 17:42 00:29 04:34 WBC RBC Hgb Hct MCV RDW Plt Count Lymph % (Auto) Tate % (Auto) Lymph # Seg Neutrophils % Seg Neuts % (Manual) Lymphocytes % (Manual) Nucleated RBC % Seg Neutrophils # Man Lymphocytes # (Manual) Monocytes # (Manual) Eosinophils # (Manual) PT INR D-Dimer Heparin Anti-Xa Level ABG pH ABG pO2 ABG HCO3 ABG O2 Saturation ABG Base Excess ABG Hemoglobin Oxyhemoglobin Sodium Potassium Chloride Carbon Dioxide BUN Creatinine Glucose POC Glucose 149 H 178 H Calcium Magnesium Ferritin > 2000.0 H Direct Bilirubin AST ALT Alkaline Phosphatase Lactate Dehydrogenase Troponin T C-Reactive Protein NT-Pro-B Natriuret Pep Total Protein Albumin Crossmatch 01/28/20 01/28/20 01/28/20 04:34 04:34 05:20 WBC RBC Hgb Hct MCV RDW Plt Count Lymph % (Auto) Tate % (Auto) Lymph # Seg Neutrophils % Seg Neuts % (Manual) Lymphocytes % (Manual) Nucleated RBC % Seg Neutrophils # Man Lymphocytes # (Manual) Monocytes # (Manual) Eosinophils # (Manual) PT INR D-Dimer 2379 H Heparin Anti-Xa Level ABG pH 7.237 L ABG pO2 90.9 H ABG HCO3 29.1 H ABG O2 Saturation ABG Base Excess ABG Hemoglobin 7.5 L Oxyhemoglobin 94.0 L Sodium Potassium Chloride Carbon Dioxide BUN Creatinine Glucose POC Glucose Calcium Magnesium Ferritin Direct Bilirubin AST ALT Alkaline Phosphatase Lactate Dehydrogenase 434 H Troponin T C-Reactive Protein 9.70 H NT-Pro-B Natriuret Pep Total Protein Albumin Crossmatch 01/28/20 01/28/20 01/28/20 06:21 12:25 18:17 WBC RBC Hgb Hct MCV RDW Plt Count Lymph % (Auto) Tate % (Auto) Lymph # Seg Neutrophils % Seg Neuts % (Manual) Lymphocytes % (Manual) Nucleated RBC % Seg Neutrophils # Man Lymphocytes # (Manual) Monocytes # (Manual) Eosinophils # (Manual) PT INR D-Dimer Heparin Anti-Xa Level ABG pH ABG pO2 ABG HCO3 ABG O2 Saturation ABG Base Excess ABG Hemoglobin Oxyhemoglobin Sodium Potassium Chloride Carbon Dioxide BUN Creatinine Glucose POC Glucose 127 H 196 H 190 H Calcium Magnesium Ferritin Direct Bilirubin AST ALT Alkaline Phosphatase Lactate Dehydrogenase Troponin T C-Reactive Protein NT-Pro-B Natriuret Pep Total Protein Albumin Crossmatch 01/28/20 01/29/20 01/29/20 23:35 04:00 04:00 WBC 12.6 H RBC 3.01 L Hgb 9.2 L Hct 29.3 L MCV 98 H RDW 18.1 H Plt Count Lymph % (Auto) Tate % (Auto) Lymph # Seg Neutrophils % Seg Neuts % (Manual) Lymphocytes % (Manual) Nucleated RBC % Seg Neutrophils # Man Lymphocytes # (Manual) Monocytes # (Manual) Eosinophils # (Manual) PT INR D-Dimer Heparin Anti-Xa Level ABG pH ABG pO2 ABG HCO3 ABG O2 Saturation ABG Base Excess ABG Hemoglobin Oxyhemoglobin Sodium 132 L Potassium Chloride 90.1 L Carbon Dioxide BUN 50 H Creatinine 3.7 H Glucose 184 H POC Glucose 177 H Calcium Magnesium Ferritin Direct Bilirubin AST 93 H ALT Alkaline Phosphatase 678 H Lactate Dehydrogenase Troponin T C-Reactive Protein NT-Pro-B Natriuret Pep Total Protein Albumin 1.7 L Crossmatch 01/29/20 01/29/20 01/29/20 05:03 11:53 16:44 WBC RBC Hgb Hct MCV RDW Plt Count Lymph % (Auto) Tate % (Auto) Lymph # Seg Neutrophils % Seg Neuts % (Manual) Lymphocytes % (Manual) Nucleated RBC % Seg Neutrophils # Man Lymphocytes # (Manual) Monocytes # (Manual) Eosinophils # (Manual) PT INR D-Dimer Heparin Anti-Xa Level ABG pH ABG pO2 ABG HCO3 ABG O2 Saturation ABG Base Excess ABG Hemoglobin Oxyhemoglobin Sodium Potassium Chloride Carbon Dioxide BUN Creatinine Glucose POC Glucose 145 H 193 H 174 H Calcium Magnesium Ferritin Direct Bilirubin AST ALT Alkaline Phosphatase Lactate Dehydrogenase Troponin T C-Reactive Protein NT-Pro-B Natriuret Pep Total Protein Albumin Crossmatch 01/29/20 01/30/20 01/30/20 23:38 04:25 11:45 WBC RBC Hgb Hct MCV RDW Plt Count Lymph % (Auto) Tate % (Auto) Lymph # Seg Neutrophils % Seg Neuts % (Manual) Lymphocytes % (Manual) Nucleated RBC % Seg Neutrophils # Man Lymphocytes # (Manual) Monocytes # (Manual) Eosinophils # (Manual) PT INR D-Dimer Heparin Anti-Xa Level ABG pH 7.253 L ABG pO2 61.8 L ABG HCO3 29.7 H ABG O2 Saturation 90.1 L ABG Base Excess ABG Hemoglobin 8.2 L Oxyhemoglobin 87.5 L Sodium Potassium Chloride Carbon Dioxide BUN Creatinine Glucose POC Glucose 144 H 191 H Calcium Magnesium Ferritin Direct Bilirubin AST ALT Alkaline Phosphatase Lactate Dehydrogenase Troponin T C-Reactive Protein NT-Pro-B Natriuret Pep Total Protein Albumin Crossmatch 01/30/20 01/31/20 01/31/20 18:21 00:04 03:52 WBC RBC Hgb Hct MCV RDW Plt Count Lymph % (Auto) Tate % (Auto) Lymph # Seg Neutrophils % Seg Neuts % (Manual) Lymphocytes % (Manual) Nucleated RBC % Seg Neutrophils # Man Lymphocytes # (Manual) Monocytes # (Manual) Eosinophils # (Manual) PT INR D-Dimer Heparin Anti-Xa Level ABG pH ABG pO2 69.3 L ABG HCO3 29.4 H ABG O2 Saturation ABG Base Excess 3.7 H ABG Hemoglobin 10.8 L Oxyhemoglobin Sodium Potassium Chloride Carbon Dioxide BUN Creatinine Glucose POC Glucose 198 H 129 H Calcium Magnesium Ferritin Direct Bilirubin AST ALT Alkaline Phosphatase Lactate Dehydrogenase Troponin T C-Reactive Protein NT-Pro-B Natriuret Pep Total Protein Albumin Crossmatch 01/31/20 01/31/20 01/31/20 04:00 04:16 05:12 WBC 16.7 H RBC 2.73 L Hgb 8.3 L Hct 25.7 L MCV RDW 18.0 H Plt Count Lymph % (Auto) Tate % (Auto) Lymph # Seg Neutrophils % Seg Neuts % (Manual) 92.0 H Lymphocytes % (Manual) 2.0 L Nucleated RBC % Seg Neutrophils # Man 15.4 H Lymphocytes # (Manual) 0.3 L Monocytes # (Manual) 1.0 H Eosinophils # (Manual) PT INR D-Dimer Heparin Anti-Xa Level ABG pH ABG pO2 ABG HCO3 ABG O2 Saturation ABG Base Excess ABG Hemoglobin Oxyhemoglobin Sodium 130 L Potassium Chloride 90.1 L Carbon Dioxide BUN 61 H Creatinine 3.4 H Glucose 128 H POC Glucose 157 H Calcium Magnesium Ferritin Direct Bilirubin AST 103 H ALT 63 H Alkaline Phosphatase 534 H Lactate Dehydrogenase Troponin T C-Reactive Protein NT-Pro-B Natriuret Pep Total Protein Albumin 2.1 L Crossmatch 01/31/20 01/31/20 01/31/20 11:50 17:39 18:47 WBC RBC Hgb Hct MCV RDW Plt Count Lymph % (Auto) [place] % (Auto) Lymph # Seg Neutrophils % Seg Neuts % (Manual) Lymphocytes % (Manual) Nucleated RBC % Seg Neutrophils # Man Lymphocytes # (Manual) Monocytes # (Manual) Eosinophils # (Manual) PT INR D-Dimer Heparin Anti-Xa Level ABG pH ABG pO2 ABG HCO3 ABG O2 Saturation ABG Base Excess ABG Hemoglobin Oxyhemoglobin Sodium Potassium Chloride Carbon Dioxide BUN Creatinine Glucose POC Glucose 129 H 51 L 172 H Calcium Magnesium Ferritin Direct Bilirubin AST ALT Alkaline Phosphatase Lactate Dehydrogenase Troponin T C-Reactive Protein NT-Pro-B Natriuret Pep Total Protein Albumin Crossmatch 02/01/20 02/01/20 02/01/20 03:49 03:49 05:00 WBC 17.4 H RBC 2.68 L Hgb 8.0 L Hct 25.2 L MCV RDW 18.4 H Plt Count Lymph % (Auto) Tate % (Auto) Lymph # Seg Neutrophils % Seg Neuts % (Manual) Lymphocytes % (Manual) Nucleated RBC % Seg Neutrophils # Man Lymphocytes # (Manual) Monocytes # (Manual) Eosinophils # (Manual) PT INR D-Dimer Heparin Anti-Xa Level ABG pH 7.290 L ABG pO2 ABG HCO3 26.8 H ABG O2 Saturation ABG Base Excess ABG Hemoglobin 7.5 L Oxyhemoglobin 94.2 L Sodium 133 L Potassium Chloride 90.8 L Carbon Dioxide 21 L BUN 90 H Creatinine 4.6 H Glucose 145 H POC Glucose Calcium Magnesium Ferritin Direct Bilirubin AST ALT Alkaline Phosphatase Lactate Dehydrogenase Troponin T C-Reactive Protein NT-Pro-B Natriuret Pep Total Protein Albumin Crossmatch 02/01/20 02/01/20 02/01/20 05:34 06:09 12:42 WBC RBC Hgb Hct MCV RDW Plt Count Lymph % (Auto) [place] % (Auto) Lymph # Seg Neutrophils % Seg Neuts % (Manual) Lymphocytes % (Manual) Nucleated RBC % Seg Neutrophils # Man Lymphocytes # (Manual) Monocytes # (Manual) Eosinophils # (Manual) PT INR D-Dimer Heparin Anti-Xa Level ABG pH ABG pO2 ABG HCO3 ABG O2 Saturation ABG Base Excess ABG Hemoglobin Oxyhemoglobin Sodium Potassium Chloride Carbon Dioxide BUN Creatinine Glucose POC Glucose 166 H 143 H 218 H Calcium Magnesium Ferritin Direct Bilirubin AST ALT Alkaline Phosphatase Lactate Dehydrogenase Troponin T C-Reactive Protein NT-Pro-B Natriuret Pep Total Protein Albumin Crossmatch 02/01/20 02/01/20 02/02/20 17:38 18:24 05:00 WBC RBC Hgb Hct MCV RDW Plt Count Lymph % (Auto) [place] % (Auto) Lymph # Seg Neutrophils % Seg Neuts % (Manual) Lymphocytes % (Manual) Nucleated RBC % Seg Neutrophils # Man Lymphocytes # (Manual) Monocytes # (Manual) Eosinophils # (Manual) PT INR D-Dimer Heparin Anti-Xa Level ABG pH 7.317 L ABG pO2 ABG HCO3 28.2 H ABG O2 Saturation ABG Base Excess ABG Hemoglobin 10.1 L Oxyhemoglobin 94.0 L Sodium Potassium Chloride Carbon Dioxide BUN Creatinine Glucose POC Glucose 158 H 233 H Calcium Magnesium Ferritin Direct Bilirubin AST ALT Alkaline Phosphatase Lactate Dehydrogenase Troponin T C-Reactive Protein NT-Pro-B Natriuret Pep Total Protein Albumin Crossmatch 02/02/20 02/02/20 02/02/20 05:44 05:44 05:44 WBC 16.0 H RBC 2.85 L Hgb 8.3 L Hct 26.3 L MCV RDW 18.6 H Plt Count Lymph % (Auto) [place] % (Auto) Lymph # Seg Neutrophils % Seg Neuts % (Manual) 91.0 H Lymphocytes % (Manual) 2.0 L Nucleated RBC % Seg Neutrophils # Man 14.6 H Lymphocytes # (Manual) 0.3 L Monocytes # (Manual) Eosinophils # (Manual) PT INR D-Dimer Heparin Anti-Xa Level 0.77 H ABG pH ABG pO2 ABG HCO3 ABG O2 Saturation ABG Base Excess ABG Hemoglobin Oxyhemoglobin Sodium Potassium Chloride 95.5 L Carbon Dioxide BUN 57 H Creatinine 3.0 H Glucose 144 H POC Glucose Calcium 8.1 L Magnesium Ferritin Direct Bilirubin 0.3 H AST 179 H ALT 106 H Alkaline Phosphatase 557 H Lactate Dehydrogenase Troponin T C-Reactive Protein NT-Pro-B Natriuret Pep Total Protein 6.1 L Albumin 2.3 L Crossmatch 02/02/20 02/02/20 02/02/20 11:17 11:33 12:24 WBC RBC Hgb Hct MCV RDW Plt Count Lymph % (Auto) [place] % (Auto) Lymph # Seg Neutrophils % Seg Neuts % (Manual) Lymphocytes % (Manual) Nucleated RBC % Seg Neutrophils # Man Lymphocytes # (Manual) Monocytes # (Manual) Eosinophils # (Manual) PT INR D-Dimer Heparin Anti-Xa Level ABG pH ABG pO2 ABG HCO3 ABG O2 Saturation ABG Base Excess ABG Hemoglobin Oxyhemoglobin Sodium Potassium Chloride Carbon Dioxide BUN Creatinine Glucose POC Glucose < 40 L < 40 L 224 H Calcium Magnesium Ferritin Direct Bilirubin AST ALT Alkaline Phosphatase Lactate Dehydrogenase Troponin T C-Reactive Protein NT-Pro-B Natriuret Pep Total Protein Albumin Crossmatch 02/02/20 02/02/20 02/03/20 12:33 17:42 00:25 WBC RBC Hgb Hct MCV RDW Plt Count Lymph % (Auto) [place] % (Auto) Lymph # Seg Neutrophils % Seg Neuts % (Manual) Lymphocytes % (Manual) Nucleated RBC % Seg Neutrophils # Man Lymphocytes # (Manual) Monocytes # (Manual) Eosinophils # (Manual) PT INR D-Dimer Heparin Anti-Xa Level ABG pH ABG pO2 ABG HCO3 ABG O2 Saturation ABG Base Excess ABG Hemoglobin Oxyhemoglobin Sodium Potassium Chloride Carbon Dioxide BUN Creatinine Glucose 296 H POC Glucose 228 H < 40 L Calcium Magnesium Ferritin Direct Bilirubin AST ALT Alkaline Phosphatase Lactate Dehydrogenase Troponin T C-Reactive Protein NT-Pro-B Natriuret Pep Total Protein Albumin Crossmatch 02/03/20 02/03/20 02/03/20 00:27 03:59 03:59 WBC 22.9 H RBC 2.80 L Hgb 8.3 L Hct 27.4 L MCV 98 H RDW 19.2 H Plt Count Lymph % (Auto) [place] % (Auto) Lymph # Seg Neutrophils % Seg Neuts % (Manual) 92.0 H Lymphocytes % (Manual) 4.0 L Nucleated RBC % Seg Neutrophils # Man 21.1 H Lymphocytes # (Manual) 0.9 L Monocytes # (Manual) Eosinophils # (Manual) PT INR D-Dimer Heparin Anti-Xa Level ABG pH ABG pO2 ABG HCO3 ABG O2 Saturation ABG Base Excess ABG Hemoglobin Oxyhemoglobin Sodium 134 L Potassium 3.5 L Chloride Carbon Dioxide 21 L BUN 40 H Creatinine 2.6 H Glucose 180 H POC Glucose 198 H Calcium Magnesium Ferritin Direct Bilirubin AST ALT Alkaline Phosphatase Lactate Dehydrogenase Troponin T C-Reactive Protein NT-Pro-B Natriuret Pep Total Protein Albumin Crossmatch 02/03/20 02/03/20 02/03/20 04:48 05:00 12:21 WBC RBC Hgb Hct MCV RDW Plt Count Lymph % (Auto) [place] % (Auto) Lymph # Seg Neutrophils % Seg Neuts % (Manual) Lymphocytes % (Manual) Nucleated RBC % Seg Neutrophils # Man Lymphocytes # (Manual) Monocytes # (Manual) Eosinophils # (Manual) PT INR D-Dimer Heparin Anti-Xa Level ABG pH 7.315 L ABG pO2 97.3 H ABG HCO3 28.5 H ABG O2 Saturation ABG Base Excess ABG Hemoglobin 8.3 L Oxyhemoglobin 94.8 L Sodium Potassium Chloride Carbon Dioxide BUN Creatinine Glucose POC Glucose 182 H 201 H Calcium Magnesium Ferritin Direct Bilirubin AST ALT Alkaline Phosphatase Lactate Dehydrogenase Troponin T C-Reactive Protein NT-Pro-B Natriuret Pep Total Protein Albumin Crossmatch 02/03/20 02/03/20 02/04/20 17:43 23:36 04:50 WBC RBC Hgb Hct MCV RDW Plt Count Lymph % (Auto) [place] % (Auto) Lymph # Seg Neutrophils % Seg Neuts % (Manual) Lymphocytes % (Manual) Nucleated RBC % Seg Neutrophils # Man Lymphocytes # (Manual) Monocytes # (Manual) Eosinophils # (Manual) PT INR D-Dimer Heparin Anti-Xa Level ABG pH ABG pO2 ABG HCO3 ABG O2 Saturation ABG Base Excess ABG Hemoglobin Oxyhemoglobin Sodium 135 L Potassium Chloride 96.3 L Carbon Dioxide 21 L BUN 63 H Creatinine 4.1 H D Glucose 156 H POC Glucose 224 H 146 H Calcium 8.2 L Magnesium Ferritin Direct Bilirubin AST ALT Alkaline Phosphatase Lactate Dehydrogenase Troponin T C-Reactive Protein NT-Pro-B Natriuret Pep Total Protein Albumin Crossmatch 02/04/20 02/04/20 02/04/20 04:50 05:30 05:40 WBC 18.3 H RBC 2.31 L Hgb 6.9 L Hct 22.0 L MCV RDW 18.2 H Plt Count Lymph % (Auto) [place] % (Auto) Lymph # Seg Neutrophils % Seg Neuts % (Manual) 85.0 H Lymphocytes % (Manual) 4.0 L Nucleated RBC % 1.0 H Seg Neutrophils # Man 15.6 H Lymphocytes # (Manual) 0.7 L Monocytes # (Manual) Eosinophils # (Manual) PT INR D-Dimer Heparin Anti-Xa Level ABG pH 7.317 L ABG pO2 77.7 L ABG HCO3 27.4 H ABG O2 Saturation ABG Base Excess ABG Hemoglobin 8.0 L Oxyhemoglobin 94.5 L Sodium Potassium Chloride Carbon Dioxide BUN Creatinine Glucose POC Glucose 202 H Calcium Magnesium Ferritin Direct Bilirubin AST ALT Alkaline Phosphatase Lactate Dehydrogenase Troponin T C-Reactive Protein NT-Pro-B Natriuret Pep Total Protein Albumin Crossmatch 02/04/20 02/04/20 02/04/20 10:47 12:53 18:44 WBC RBC Hgb Hct MCV RDW Plt Count Lymph % (Auto) [place] % (Auto) Lymph # Seg Neutrophils % Seg Neuts % (Manual) Lymphocytes % (Manual) Nucleated RBC % Seg Neutrophils # Man Lymphocytes # (Manual) Monocytes # (Manual) Eosinophils # (Manual) PT INR D-Dimer Heparin Anti-Xa Level ABG pH ABG pO2 ABG HCO3 ABG O2 Saturation ABG Base Excess ABG Hemoglobin Oxyhemoglobin Sodium Potassium Chloride Carbon Dioxide BUN Creatinine Glucose POC Glucose 197 H 143 H Calcium Magnesium Ferritin Direct Bilirubin AST ALT Alkaline Phosphatase Lactate Dehydrogenase Troponin T C-Reactive Protein NT-Pro-B Natriuret Pep Total Protein Albumin Crossmatch See Detail 02/05/20 02/05/20 02/05/20 00:43 04:14 04:35 WBC RBC Hgb Hct MCV RDW Plt Count Lymph % (Auto) [place] % (Auto) Lymph # Seg Neutrophils % Seg Neuts % (Manual) Lymphocytes % (Manual) Nucleated RBC % Seg Neutrophils # Man Lymphocytes # (Manual) Monocytes # (Manual) Eosinophils # (Manual) PT INR D-Dimer Heparin Anti-Xa Level ABG pH 7.327 L ABG pO2 75.5 L ABG HCO3 30.1 H ABG O2 Saturation ABG Base Excess 3.5 H ABG Hemoglobin 8.4 L Oxyhemoglobin 93.8 L Sodium 134 L Potassium 3.3 L Chloride 97.3 L Carbon Dioxide BUN 38 H Creatinine 2.2 H Glucose 187 H POC Glucose 163 H Calcium 8.1 L Magnesium Ferritin Direct Bilirubin AST ALT Alkaline Phosphatase Lactate Dehydrogenase Troponin T C-Reactive Protein NT-Pro-B Natriuret Pep Total Protein Albumin Crossmatch 02/05/20 02/05/20 02/05/20 04:35 05:16 12:17 WBC 24.4 H RBC 2.75 L Hgb 7.9 L Hct 25.2 L MCV RDW 18.1 H Plt Count Lymph % (Auto) [place] % (Auto) Lymph # Seg Neutrophils % Seg Neuts % (Manual) 96.0 H Lymphocytes % (Manual) 1.0 L Nucleated RBC % Seg Neutrophils # Man 23.4 H Lymphocytes # (Manual) 0.2 L Monocytes # (Manual) Eosinophils # (Manual) 0.5 H PT INR D-Dimer Heparin Anti-Xa Level ABG pH ABG pO2 ABG HCO3 ABG O2 Saturation ABG Base Excess ABG Hemoglobin Oxyhemoglobin Sodium Potassium Chloride Carbon Dioxide BUN Creatinine Glucose POC Glucose 196 H 174 H Calcium Magnesium Ferritin Direct Bilirubin AST ALT Alkaline Phosphatase Lactate Dehydrogenase Troponin T C-Reactive Protein NT-Pro-B Natriuret Pep Total Protein Albumin Crossmatch 02/05/20 02/05/20 02/05/20 13:55 13:55 13:55 WBC RBC Hgb Hct MCV RDW Plt Count Lymph % (Auto) [place] % (Auto) Lymph # Seg Neutrophils % Seg Neuts % (Manual) Lymphocytes % (Manual) Nucleated RBC % Seg Neutrophils # Man Lymphocytes # (Manual) Monocytes # (Manual) Eosinophils # (Manual) PT INR D-Dimer 2896.73 H Heparin Anti-Xa Level ABG pH ABG pO2 ABG HCO3 ABG O2 Saturation ABG Base Excess ABG Hemoglobin Oxyhemoglobin Sodium Potassium Chloride Carbon Dioxide BUN Creatinine Glucose POC Glucose Calcium Magnesium Ferritin > 2000.0 H Direct Bilirubin AST ALT Alkaline Phosphatase Lactate Dehydrogenase 311 H Troponin T C-Reactive Protein 17.30 H NT-Pro-B Natriuret Pep Total Protein Albumin Crossmatch 02/05/20 02/05/20 02/06/20 17:20 21:53 04:50 WBC RBC Hgb Hct MCV RDW Plt Count Lymph % (Auto) [place] % (Auto) Lymph # Seg Neutrophils % Seg Neuts % (Manual) Lymphocytes % (Manual) Nucleated RBC % Seg Neutrophils # Man Lymphocytes # (Manual) Monocytes # (Manual) Eosinophils # (Manual) PT INR D-Dimer Heparin Anti-Xa Level ABG pH 7.349 L ABG pO2 64.5 L ABG HCO3 28.4 H ABG O2 Saturation 94.0 L ABG Base Excess ABG Hemoglobin 8.4 L Oxyhemoglobin 91.8 L Sodium Potassium Chloride Carbon Dioxide BUN Creatinine Glucose POC Glucose 191 H 200 H Calcium Magnesium Ferritin Direct Bilirubin AST ALT Alkaline Phosphatase Lactate Dehydrogenase Troponin T C-Reactive Protein NT-Pro-B Natriuret Pep Total Protein Albumin Crossmatch 02/06/20 02/06/20 02/06/20 05:55 05:55 05:58 WBC 22.4 H RBC 3.02 L Hgb 8.5 L Hct 27.6 L MCV RDW 18.8 H Plt Count Lymph % (Auto) Tate % (Auto) Lymph # Seg Neutrophils % Seg Neuts % (Manual) Lymphocytes % (Manual) Nucleated RBC % Seg Neutrophils # Man Lymphocytes # (Manual) Monocytes # (Manual) Eosinophils # (Manual) PT INR D-Dimer Heparin Anti-Xa Level ABG pH ABG pO2 ABG HCO3 ABG O2 Saturation ABG Base Excess ABG Hemoglobin Oxyhemoglobin Sodium 136 L Potassium Chloride 96.4 L Carbon Dioxide BUN 66 H Creatinine 3.6 H D Glucose 139 H POC Glucose 110 H Calcium Magnesium Ferritin Direct Bilirubin AST ALT Alkaline Phosphatase Lactate Dehydrogenase Troponin T C-Reactive Protein NT-Pro-B Natriuret Pep Total Protein Albumin Crossmatch 02/06/20 02/06/20 02/06/20 12:19 17:52 23:47 WBC RBC Hgb Hct MCV RDW Plt Count Lymph % (Auto) [place] % (Auto) Lymph # Seg Neutrophils % Seg Neuts % (Manual) Lymphocytes % (Manual) Nucleated RBC % Seg Neutrophils # Man Lymphocytes # (Manual) Monocytes # (Manual) Eosinophils # (Manual) PT INR D-Dimer Heparin Anti-Xa Level ABG pH ABG pO2 ABG HCO3 ABG O2 Saturation ABG Base Excess ABG Hemoglobin Oxyhemoglobin Sodium Potassium Chloride Carbon Dioxide BUN Creatinine Glucose POC Glucose 185 H 185 H 173 H Calcium Magnesium Ferritin Direct Bilirubin AST ALT Alkaline Phosphatase Lactate Dehydrogenase Troponin T C-Reactive Protein NT-Pro-B Natriuret Pep Total Protein Albumin Crossmatch 02/07/20 02/07/20 02/07/20 05:04 11:46 11:52 WBC RBC Hgb Hct MCV RDW Plt Count Lymph % (Auto) [place] % (Auto) Lymph # Seg Neutrophils % Seg Neuts % (Manual) Lymphocytes % (Manual) Nucleated RBC % Seg Neutrophils # Man Lymphocytes # (Manual) Monocytes # (Manual) Eosinophils # (Manual) PT INR D-Dimer Heparin Anti-Xa Level ABG pH ABG pO2 ABG HCO3 ABG O2 Saturation ABG Base Excess ABG Hemoglobin Oxyhemoglobin Sodium Potassium Chloride Carbon Dioxide BUN Creatinine Glucose POC Glucose 145 H 240 H 251 H Calcium Magnesium Ferritin Direct Bilirubin AST ALT Alkaline Phosphatase Lactate Dehydrogenase Troponin T C-Reactive Protein NT-Pro-B Natriuret Pep Total Protein Albumin Crossmatch 02/07/20 02/08/20 02/08/20 18:18 00:22 05:43 WBC RBC Hgb Hct MCV RDW Plt Count Lymph % (Auto) [place] % (Auto) Lymph # Seg Neutrophils % Seg Neuts % (Manual) Lymphocytes % (Manual) Nucleated RBC % Seg Neutrophils # Man Lymphocytes # (Manual) Monocytes # (Manual) Eosinophils # (Manual) PT INR D-Dimer Heparin Anti-Xa Level ABG pH ABG pO2 ABG HCO3 ABG O2 Saturation ABG Base Excess ABG Hemoglobin Oxyhemoglobin Sodium Potassium Chloride Carbon Dioxide BUN Creatinine Glucose POC Glucose 225 H 274 H 307 H Calcium Magnesium Ferritin Direct Bilirubin AST ALT Alkaline Phosphatase Lactate Dehydrogenase Troponin T C-Reactive Protein NT-Pro-B Natriuret Pep Total Protein Albumin Crossmatch 02/08/20 02/08/20 02/08/20 09:40 12:09 17:42 WBC RBC Hgb Hct MCV RDW Plt Count Lymph % (Auto) [place] % (Auto) Lymph # Seg Neutrophils % Seg Neuts % (Manual) Lymphocytes % (Manual) Nucleated RBC % Seg Neutrophils # Man Lymphocytes # (Manual) Monocytes # (Manual) Eosinophils # (Manual) PT INR D-Dimer Heparin Anti-Xa Level ABG pH 7.167 L* ABG pO2 ABG HCO3 30.3 H ABG O2 Saturation 92.6 L ABG Base Excess ABG Hemoglobin 8.8 L Oxyhemoglobin 90.4 L Sodium Potassium Chloride Carbon Dioxide BUN Creatinine Glucose POC Glucose 327 H 269 H Calcium Magnesium Ferritin Direct Bilirubin AST ALT Alkaline Phosphatase Lactate Dehydrogenase Troponin T C-Reactive Protein NT-Pro-B Natriuret Pep Total Protein Albumin Crossmatch 02/08/20 02/09/20 02/09/20 20:45 01:16 04:48 WBC 22.9 H RBC 2.86 L Hgb 8.3 L Hct 26.2 L MCV RDW 18.0 H Plt Count 507 H Lymph % (Auto) Tate % (Auto) Lymph # Seg Neutrophils % Seg Neuts % (Manual) Lymphocytes % (Manual) Nucleated RBC % Seg Neutrophils # Man Lymphocytes # (Manual) Monocytes # (Manual) Eosinophils # (Manual) PT INR D-Dimer Heparin Anti-Xa Level ABG pH ABG pO2 79.1 L ABG HCO3 31.7 H ABG O2 Saturation ABG Base Excess 4.6 H ABG Hemoglobin Oxyhemoglobin 93.5 L Sodium Potassium Chloride Carbon Dioxide BUN Creatinine Glucose POC Glucose 150 H Calcium Magnesium Ferritin Direct Bilirubin AST ALT Alkaline Phosphatase Lactate Dehydrogenase Troponin T C-Reactive Protein NT-Pro-B Natriuret Pep Total Protein Albumin Crossmatch 02/09/20 02/09/20 02/09/20 04:48 05:14 13:11 WBC RBC Hgb Hct MCV RDW Plt Count Lymph % (Auto) [place] % (Auto) Lymph # Seg Neutrophils % Seg Neuts % (Manual) Lymphocytes % (Manual) Nucleated RBC % Seg Neutrophils # Man Lymphocytes # (Manual) Monocytes # (Manual) Eosinophils # (Manual) PT INR D-Dimer Heparin Anti-Xa Level ABG pH ABG pO2 ABG HCO3 ABG O2 Saturation ABG Base Excess ABG Hemoglobin Oxyhemoglobin Sodium Potassium Chloride 93.9 L Carbon Dioxide BUN 59 H Creatinine 2.5 H Glucose 309 H POC Glucose 356 H 184 H Calcium Magnesium Ferritin Direct Bilirubin AST ALT Alkaline Phosphatase Lactate Dehydrogenase Troponin T C-Reactive Protein NT-Pro-B Natriuret Pep Total Protein Albumin Crossmatch 02/09/20 02/10/20 02/10/20 16:53 00:20 05:38 WBC RBC Hgb Hct MCV RDW Plt Count Lymph % (Auto) [place] % (Auto) Lymph # Seg Neutrophils % Seg Neuts % (Manual) Lymphocytes % (Manual) Nucleated RBC % Seg Neutrophils # Man Lymphocytes # (Manual) Monocytes # (Manual) Eosinophils # (Manual) PT INR D-Dimer Heparin Anti-Xa Level ABG pH ABG pO2 ABG HCO3 ABG O2 Saturation ABG Base Excess ABG Hemoglobin Oxyhemoglobin Sodium Potassium Chloride Carbon Dioxide BUN Creatinine Glucose POC Glucose 357 H 298 H 300 H Calcium Magnesium Ferritin Direct Bilirubin AST ALT Alkaline Phosphatase Lactate Dehydrogenase Troponin T C-Reactive Protein NT-Pro-B Natriuret Pep Total Protein Albumin Crossmatch 02/10/20 02/10/20 02/11/20 12:38 18:17 00:08 WBC RBC Hgb Hct MCV RDW Plt Count Lymph % (Auto) [place] % (Auto) Lymph # Seg Neutrophils % Seg Neuts % (Manual) Lymphocytes % (Manual) Nucleated RBC % Seg Neutrophils # Man Lymphocytes # (Manual) Monocytes # (Manual) Eosinophils # (Manual) PT INR D-Dimer Heparin Anti-Xa Level ABG pH ABG pO2 ABG HCO3 ABG O2 Saturation ABG Base Excess ABG Hemoglobin Oxyhemoglobin Sodium Potassium Chloride Carbon Dioxide BUN Creatinine Glucose POC Glucose 350 H 271 H 164 H Calcium Magnesium Ferritin Direct Bilirubin AST ALT Alkaline Phosphatase Lactate Dehydrogenase Troponin T C-Reactive Protein NT-Pro-B Natriuret Pep Total Protein Albumin Crossmatch 02/11/20 05:34 WBC RBC Hgb Hct MCV RDW Plt Count Lymph % (Auto) [place] % (Auto) Lymph # Seg Neutrophils % Seg Neuts % (Manual) Lymphocytes % (Manual) Nucleated RBC % Seg Neutrophils # Man Lymphocytes # (Manual) Monocytes # (Manual) Eosinophils # (Manual) PT INR D-Dimer Heparin Anti-Xa Level ABG pH ABG pO2 ABG HCO3 ABG O2 Saturation ABG Base Excess ABG Hemoglobin Oxyhemoglobin Sodium Potassium Chloride Carbon Dioxide BUN Creatinine Glucose POC Glucose 274 H Calcium Magnesium Ferritin Direct Bilirubin AST ALT Alkaline Phosphatase Lactate Dehydrogenase Troponin T C-Reactive Protein NT-Pro-B Natriuret Pep Total Protein Albumin Crossmatch Allied health notes reviewed: nursing
[2020-02-11] MEDS: INSULIN GLARGINE 100 UNITS/ML SUB-Q SCH (10:05)
--- NOTE | 2020-02-11 11:16 | Progress Note ---
Assessment and Plan - Patient Problems (1) Acute respiratory failure with hypoxia Current Visit: No Status: Acute Plan to address problem: ventilator management by pulmonary/at risk specialist (2) Pneumonia due to COVID-19 virus Current Visit: Yes Status: Acute Plan to address problem: continue treatment per infectious disease. (3) Volume overload Current Visit: Yes Status: Acute Qualifiers: Plan to address problem: end-stage renal disease with fluid overload. Improved with fluid removal on dialysis. (4) Anemia in CKD (chronic kidney disease) Current Visit: Yes Status: Acute Qualifiers: Chronic kidney disease stage: on chronic dialysis Qualified Code(s): N18.6 - End stage renal disease; D63.1 - Anemia in chronic kidney disease; Z99.2 - Dependence on renal dialysis Plan to address problem: give erythropoietin on dialysis (5) T2DM (type 2 diabetes mellitus) Current Visit: Yes Status: Acute Qualifiers: Diabetes mellitus intermediate manager insulin use: unspecified longterm insulin use status Plan to address problem: blood sugar management by primary attending. (6) Hyponatremia Current Visit: No Status: Acute Plan to address problem: hypervolemic hyponatremia. Follow-up sodium with fluid removal on dialysis (7) Hypertensive chronic kidney disease with stage 5 chronic kidney disease or end stage renal disease Current Visit: No Status: Chronic Plan to address problem: patient is on vasopressor. Follow blood pressure current medications (8) End stage renal disease on dialysis Current Visit: No Status: Chronic Plan to address problem: continue hemodialysis as scheduled. Subjective Date of service: 02/11/20 Principal diagnosis: Pneumonia Interval history: Patient is intubated on the ventilator in intensive care unit. Off of vasopressor. Patient was seen and examined today remains sedated on the ventilator Objective - Exam Narrative Exam: elderly -[place] female lying in bed intubated on the ventilator HEENT: Normocephalic atraumatic, pupils equal round reactive to light ETT intact Neck: Supple, no venous distention, no goiter CVS: S1S2 RRR No murmur, rub or gallop Lungs: Coarse Bs, no use of accessory muscles of respiration Abdomen: Full, soft, nontender, no organomegaly no bruit, bowel sounds are pre sent Extremities: No edema, no cyanosis or clubbing Urinary: Deferred Musculo-skeletal: No joint deformities or swelling Neuro: Awake, alert, no focal deficits - Vital Signs Vital signs: Vital Signs - 12hr 02/10/20 02/10/20 02/10/20 23:15 23:23 23:30 Temperature 99.5 F Pulse Rate 95 H 95 H Pulse Rate [ Left Radial] Respiratory 24 24 Rate Blood Pressure 120/57 130/59 O2 Sat by Pulse 100 100 Oximetry O2 Sat by Pulse Oximetry [ Anterior Bilateral Throughout] 02/10/20 02/11/20 02/11/20 23:45 00:00 00:05 Temperature Pulse Rate 96 H 98 H 94 H Pulse Rate [ Left Radial] Respiratory 25 H 24 25 H Rate Blood Pressure 120/57 125/57 125/57 O2 Sat by Pulse 100 100 100 Oximetry O2 Sat by Pulse Oximetry [ Anterior Bilateral Throughout] 02/11/20 02/11/20 02/11/20 00:09 00:15 00:30 Temperature Pulse Rate 95 H 94 H 94 H Pulse Rate [ Left Radial] Respiratory 24 24 Rate Blood Pressure 125/57 125/57 129/56 O2 Sat by Pulse 100 100 100 Oximetry O2 Sat by Pulse Oximetry [ Anterior Bilateral Throughout] 02/11/20 02/11/20 02/11/20 00:45 01:00 01:15 Temperature Pulse Rate 94 H 93 H 93 H Pulse Rate [ Left Radial] Respiratory 25 H 25 H 26 H Rate Blood Pressure 129/56 131/56 131/56 O2 Sat by Pulse 100 100 100 Oximetry O2 Sat by Pulse Oximetry [ Anterior Bilateral Throughout] 02/11/20 02/11/20 02/11/20 01:30 01:45 02:00 Temperature Pulse Rate 94 H 96 H 94 H Pulse Rate [ Left Radial] Respiratory 24 29 H 26 H Rate Blood Pressure 126/60 131/56 131/57 O2 Sat by Pulse 100 99 100 Oximetry O2 Sat by Pulse Oximetry [ Anterior Bilateral Throughout] 02/11/20 02/11/20 02/11/20 02:15 02:31 02:45 Temperature Pulse Rate 92 H 93 H 94 H Pulse Rate [ Left Radial] Respiratory 24 25 H 24 Rate Blood Pressure 131/57 124/51 124/51 O2 Sat by Pulse 100 100 100 Oximetry O2 Sat by Pulse Oximetry [ Anterior Bilateral Throughout] 02/11/20 02/11/20 02/11/20 03:00 03:15 03:30 Temperature Pulse Rate 94 H 94 H 94 H Pulse Rate [ Left Radial] Respiratory 23 26 H 25 H Rate Blood Pressure 119/57 119/57 122/56 O2 Sat by Pulse 100 100 100 Oximetry O2 Sat by Pulse Oximetry [ Anterior Bilateral Throughout] 02/11/20 02/11/20 02/11/20 03:37 03:45 04:00 Temperature 99.8 F H Pulse Rate 93 H 93 H Pulse Rate [ 88 Left Radial] Respiratory 26 H 30 H Rate Blood Pressure 122/56 120/56 O2 Sat by Pulse 100 100 Oximetry O2 Sat by Pulse Oximetry [ Anterior Bilateral Throughout] 02/11/20 02/11/20 02/11/20 04:15 04:30 04:41 Temperature Pulse Rate 94 H 95 H 95 H Pulse Rate [ Left Radial] Respiratory 23 24 Rate Blood Pressure 120/56 127/57 127/57 O2 Sat by Pulse 100 100 100 Oximetry O2 Sat by Pulse Oximetry [ Anterior Bilateral Throughout] 02/11/20 02/11/20 02/11/20 04:45 05:00 05:15 Temperature Pulse Rate 95 H 96 H 94 H Pulse Rate [ Left Radial] Respiratory 27 H 26 H 27 H Rate Blood Pressure 127/57 133/58 133/58 O2 Sat by Pulse 98 100 100 Oximetry O2 Sat by Pulse Oximetry [ Anterior Bilateral Throughout] 02/11/20 02/11/20 02/11/20 05:30 05:45 06:00 Temperature Pulse Rate 97 H 97 H 97 H Pulse Rate [ Left Radial] Respiratory 27 H 25 H 29 H Rate Blood Pressure 126/55 126/55 135/61 O2 Sat by Pulse 100 100 100 Oximetry O2 Sat by Pulse Oximetry [ Anterior Bilateral Throughout] 02/11/20 02/11/20 02/11/20 06:15 06:31 06:45 Temperature Pulse Rate 101 H 96 H 100 H Pulse Rate [ Left Radial] Respiratory 26 H 22 25 H Rate Blood Pressure 135/61 146/112 146/112 O2 Sat by Pulse 100 100 99 Oximetry O2 Sat by Pulse Oximetry [ Anterior Bilateral Throughout] 02/11/20 02/11/20 02/11/20 07:00 07:15 07:31 Temperature Pulse Rate 98 H 95 H 97 H Pulse Rate [ Left Radial] Respiratory 22 23 22 Rate Blood Pressure 151/67 151/67 156/69 O2 Sat by Pulse 100 100 100 Oximetry O2 Sat by Pulse Oximetry [ Anterior Bilateral Throughout] 02/11/20 02/11/20 02/11/20 07:45 07:46 07:55 Temperature Pulse Rate 95 H 95 H 97 H Pulse Rate [ Left Radial] Respiratory 30 H 22 Rate Blood Pressure 156/69 156/69 156/69 O2 Sat by Pulse 100 100 99 Oximetry O2 Sat by Pulse Oximetry [ Anterior Bilateral Throughout] 02/11/20 02/11/20 02/11/20 08:00 08:15 08:31 Temperature 97.9 F Pulse Rate 100 H 103 H 105 H Pulse Rate [ Left Radial] Respiratory 20 21 20 Rate Blood Pressure 163/73 163/73 154/66 O2 Sat by Pulse 100 100 100 Oximetry O2 Sat by Pulse Oximetry [ Anterior Bilateral Throughout] 02/11/20 02/11/20 02/11/20 08:45 09:01 09:15 Temperature Pulse Rate 99 H 96 H 98 H Pulse Rate [ Left Radial] Respiratory 24 21 24 Rate Blood Pressure 163/73 163/73 154/66 O2 Sat by Pulse 100 99 100 Oximetry O2 Sat by Pulse Oximetry [ Anterior Bilateral Throughout] 02/11/20 02/11/20 02/11/20 09:30 09:45 10:00 Temperature 97.4 F L Pulse Rate 98 H 99 H 96 H Pulse Rate [ Left Radial] Respiratory 24 25 H 20 Rate Blood Pressure 137/54 137/54 135/50 O2 Sat by Pulse 100 100 Oximetry O2 Sat by Pulse 99 Oximetry [ Anterior Bilateral Throughout] 02/11/20 02/11/20 02/11/20 10:04 10:15 10:30 Temperature Pulse Rate 96 H 93 H 94 H Pulse Rate [ Left Radial] Respiratory Rate Blood Pressure 133/61 114/48 106/52 O2 Sat by Pulse Oximetry O2 Sat by Pulse Oximetry [ Anterior Bilateral Throughout] 02/11/20 02/11/20 10:45 11:00 Temperature Pulse Rate 96 H 96 H Pulse Rate [ Left Radial] Respiratory Rate Blood Pressure 100/58 103/54 O2 Sat by Pulse Oximetry O2 Sat by Pulse Oximetry [ Anterior Bilateral Throughout] - Lab 02/09/20 04:48 02/09/20 04:48 Most recent lab results ABG pH 7.351 pH Units (7.350-7.450) 02/08/20 20:45 ABG pCO2 58.7 mm Hg 02/08/20 20:45 ABG pO2 79.1 mm Hg (80.0-90.0) L 02/08/20 20:45 ABG HCO3 31.7 mmol/L (20.0-26.0) H 02/08/20 20:45 ABG O2 Saturation 95.6 % (95.0-99.0) 02/08/20 20:45 Calcium 8.8 mg/dL (8.4-10.2) 02/09/20 04:48 Phosphorus 3.30 mg/dL (2.5-4.5) 01/12/20 16:01 Magnesium 2.00 mg/dL (1.7-2.3) 01/13/20 06:11 Medications & Allergies - Medications Allergies/Adverse Reactions: Allergies cheese Allergy (Mild, Verified 12/20/19 10:19) Itching iodine Allergy (Mild, Verified 12/20/19 10:16) Anaphylaxis clonidine Allergy (Verified 12/19/19 04:13) Anaphylaxis shellfish derived Adverse Reaction (Verified 12/19/19 04:13) Angioedema Home Medications: Home Medications Medication Instructions Recorded Confirmed Last Taken Type Atorvastatin [Lipitor] 40 mg PO DAILY 11/06/19 01/13/20 01/02/20 10:00 History Acetaminophen [Acetaminophen 8 650 mg PO Q8H PRN #30 tablet.er 11/21/19 01/13/20 01/03/20 22:00 Rx Hour] Cyclobenzaprine HCl [Flexeril 5 MG 5 mg PO QHS PRN #20 tab 11/21/19 01/13/20 01/01/20 22:00 Rx TAB] HYDROcodone/APAP 5-325 [[place] 1 each PO Q6HR PRN #18 tablet 12/13/19 01/13/20 01/01/20 22:00 Rx 5-325 mg TAB] amLODIPine 10 mg PO DAILY 90 Days #90 tab 12/18/19 01/13/20 01/01/20 10:00 Rx Ibuprofen 800 mg PO TID 12/19/19 01/13/20 01/02/20 22:00 History Magnesium Oxide [Mag-Ox] 400 mg PO QDAY 12/19/19 01/13/20 01/03/20 10:00 History diphenhydrAMINE [Benadryl CAP] 25 mg PO Q8HR PRN 12/19/19 01/13/2020 21:00 History labetaloL [Labetalol 100mg TAB] 100 mg PO Q8H #90 tablet 12/21/19 01/13/20 01/02/20 10:00 Rx traMADoL [Ultram 50 MG tab] 50 mg PO Q6HR PRN #20 tablet 12/29/19 01/13/20 10:00 Rx DULoxetine [Cymbalta] 30 mg PO QDAY #30 capsule 01/04/20 01/13/20 Unknown Rx Valsartan [Diovan] 80 mg PO DAILY #30 tablet 01/04/20 01/13/20 Unknown Rx Active Medications: Generic Name Dose Route Start Last Admin Trade Name Freq PRN Reason Stop Dose Admin Acetaminophen 650 mg 01/09/20 16:33 02/05/20 05:58 Tylenol PO 650 mg Q4H PRN Administration Pain MILD(1-3)/Fever >100.5/MEANS Lipase/Protease/Amylase 1 each 01/23/20 14:28 02/07/20 13:18 Pancreaze 10,500 Unit FEEDTUBE 1 each PRN PRN Administration For Clogged Feeding Tube Atorvastatin Calcium 40 mg 01/09/20 22:00 02/10/20 22:10 Lipitor PO 40 mg QHS PHILLY Administration Dextrose 50 ml 01/23/20 07:26 02/02/20 11:33 D50w (25gm) Syringe IV 50 ml Q30MIN PRN Administration BLOOD GLUCOSE < 70 Dextrose 25 ml 01/24/20 08:58 01/24/20 13:41 D50w (25gm) Syringe IV 25 ml Q4H PRN Administration BG < 80 MG/DL Docusate Sodium 100 mg 01/25/20 22:00 02/10/20 22:09 Colace PO 100 mg BID PHILLY Administration Epoetin Helio 20,000 unit 02/04/20 12:00 02/04/20 13:00 Procrit SUB-Q 20,000 unit SILVERIO PHILLY Administration Famotidine 20 mg 01/09/20 22:00 02/10/20 09:06 Pepcid PO 20 mg DAILY PHILLY Administration Heparin Sodium (Porcine) 5,000 unit 02/07/20 10:00 02/10/20 22:09 Heparin SUB-Q 5,000 unit Q12HR PHILLY Administration Norepinephrine 4 mg in 250 mls @ 7.5 mls/hr 01/21/20 18:00 02/09/20 10:21 Levophed Drip 4 Mg/Ns 250 Ml IV 0 mcg/min TITR PHILLY 0 mls/hr Titration Protocol 2 MCG/MIN Propofol 1,000 mg in 100 mls @ 2.265 mls/hr 01/22/20 09:00 01/30/20 14:25 Diprivan 10 Mg/Ml IV 0 mcg/kg/min TITR PHILLY 0 mls/hr Titration Protocol 5 MCG/KG/MIN Sodium Chloride 100 mls @ 999 mls/hr 02/01/20 09:47 Nacl 0.9% IV SILVERIO PRN Hypotension Cefepime HCl 1 gm in 100 mls @ 200 mls/hr 02/04/20 14:00 02/10/20 09:04 Cefepime/Ns 1 Gm/100 Ml IV 02/11/20 13:59 200 mls/hr Q24HR PHILLY Administration Protocol Fluconazole 200 mg in 100 mls @ 100 mls/hr 02/04/20 13:00 02/10/20 09:04 Diflucan IV 02/11/20 12:59 100 mls/hr Q24HR PHILLY Administration Protocol Insulin Glargine 15 units 02/10/20 13:00 02/10/20 12:54 Lantus SUB-Q 15 units DAILY PHILLY Administration Insulin Human Lispro 0 unit 02/07/20 12:00 02/11/20 05:57 Humalog SUB-Q 3 unit Q6HR PHILLY Administration Protocol Lorazepam 2 mg 01/23/20 15:36 Ativan IV Q10MIN PRN Agitation Methylprednisolone Sodium Succinate 40 mg 02/07/20 14:00 02/11/20 05:57 Solu-Medrol IV 40 mg Q8HR PHILLY Administration Ondansetron HCl 4 mg 01/09/20 16:33 01/20/20 10:19 Zofran IV 4 mg Q8H PRN Administration Nausea And Vomiting Simple Syrup 15 ml 01/23/20 14:28 Simple Syrup FEEDTUBE PRN PRN Hypoglycemia Simple Syrup 30 ml 01/23/20 14:28 Simple Syrup FEEDTUBE PRN PRN Hypoglycemia Sodium Bicarbonate 325 mg 01/23/20 14:28 Sodium Bicarbonate FEEDTUBE PRN PRN For Clogged Feeding Tube Sodium Chloride 10 ml 01/09/20 22:00 02/11/20 05:58 Sodium Chloride Flush Syringe 10 Ml IV Not Given BID PHILLY Sodium Chloride 10 ml 01/09/20 16:33 Sodium Chloride Flush Syringe 10 Ml IV PRN PRN LINE FLUSH Valsartan 80 mg 01/10/20 10:00 02/10/20 09:04 Diovan PO 80 mg DAILY PHILLY Administration
[2020-02-11] MEDS: NORepinephrine/NS 4 MG-250 ML 4 MG/250 ML BAG IV SCH (12:55)
[2020-02-11] MEDS: CEFEPIME/NS 1 GM/100 ML 1 GM/100 ML BAG IV SCH (13:18)
[2020-02-11] MEDS: HEPARIN 5,000 UNIT/1 ML VIAL SUB-Q SCH ×2 (13:19→22:01)
[2020-02-11] MEDS: FAMOTIDINE 20 MG TAB PO SCH (13:20)
[2020-02-11] MEDS: FLUCONAZOLE 200 MG 200 MG/100 ML BAG IV SCH (13:20)
[2020-02-11] MEDS: DOCUSATE SODIUM 100 MG/10 ML ORAL LIQD PO SCH ×2 (13:21→22:02)
[2020-02-11] MEDS: VALSARTAN 40 MG TAB PO SCH (13:21)
--- NOTE | 2020-02-11 15:56 | Progress Note ---
Assessment and Plan Cultures: 01/10/2020 blood culture: No growth 01/21/2020 sputum culture: No growth 01/25/2020 blood culture: No growth 02/04/2020 blood culture: no growth A/P: 64/F with #Sepsis with shock: likely due to severe COVID pneumonia. Completed empiric Cefepime x 5 days. Now back on antibiotics. #Severe COVID pneumonia: very elevated inflammatory markers. S/p ivermectin x 1 on 01/21/2020 (off label use). S/p hydroxychloroquine with zinc x 5 days. Markers remain elevated. #Acute hypoxic resp failure: intubated, on the vent. Vent requirements not too high #ESRD on HD: nephrology following. #Thrombocytopenia: resolved #Elevated LFTs: etiology unclear. Bilirubin is normal. Alk phos and transaminases elevated. RUQ US showed no gall bladder, CBD appeared normal. Recs: continue steroids for 7 days followed by taper (started 02/07/2020) Completed empiric antibiotics Possible trach + LTACH placement. has repeat negative testing in house. Lloyd Loza MD [facility] ([facility] M: [phone] O: [phone] F: [phone] Subjective Date of service: 02/11/20 Principal diagnosis: Pneumonia Interval history: Afebrile, remains on vent. Objective - Exam Narrative Exam: Physical Exam (reviewed in chart due to PPE conservation) Constitutional: intubated, on the vent Head, Ears, Nose: normocephalic, atraumatic Eyes: limited due to PPE conservation strategy Neck: intubated Oral: intubated Cardiovascular: limited due to PPE conservation strategy Respiratory: limited due to PPE conservation strategy GI: limited due to PPE conservation strategy Musculoskeletal: limited due to PPE conservation strategy Skin: limited due to PPE conservation strategy Hem/Lymphatic: limited due to PPE conservation strategy Psych: no agitation Neurological: intubated, on the vent, exam limited - Constitutional Vitals: Vital Signs Temp Pulse Resp BP Pulse Ox 97.9 F 108 H 29 H 127/71 100 02/11/20 12:51 02/11/20 13:45 02/11/20 13:45 02/11/20 13:45 02/11/20 13:45 Temperature -Last 24 Hours Temperature 97.9 F Temperature 98.6 F Temperature 97.4 F Temperature 97.9 F Temperature 99.8 F Temperature 99.5 F Temperature 98.5 F Temperature 98.3 F - Labs CBC & Chem 7: 02/09/20 04:48 02/09/20 04:48 Labs: Abnormal lab results 02/10/20 02/11/20 02/11/20 Range/Units 18:17 00:08 05:34 POC Glucose 271 H 164 H 274 H (70-105) 02/11/20 Range/Units 12:18 POC Glucose 246 H (70-105)
[2020-02-12] MEDS: INSULIN LISPRO 100 UNIT/ML SUB-Q SCH ×4 (00:17→18:50)
[2020-02-12 05:59] LABS: Hematocrit 25.4 % (30.3-42.9); Mean Corpuscular HGB Conc 32 % (30-34); Mean Corpuscular Volume 91 fl (79-97); Platelet Count 566 K/mm3 (140-440); Red Blood Count 2.79 M/mm3 (3.65-5.03); Red Cell Distribution Width 18.4 % (13.2-15.2)
[2020-02-12 06:14] LABS: Calcium 8.7 mg/dL (8.4-10.2)
[2020-02-12] MEDS: methylPREDNISolone Sod Succinate 40 MG/1 ML INJ IV SCH ×3 (07:20→21:39)
[2020-02-12] MEDS ORDERED: SODIUM CHLORIDE 0.9% 100 ML IV PRN (08:17)
--- NOTE | 2020-02-12 10:46 | Progress Note ---
Assessment and Plan Assessment and plan: Suspected COVID- 19 Patient with very elevated inflammatory markers of ferritin, CRP, LDH and d- dimer. Bilateral pneumonia. Continue antibiotics per ID ARDS. Etiology secondary to above. Acute hypoxemic respiratory failure. Continue oxygen to maintain sats greater than 92% Appears stable on HFNC; wean FiO2 then flow Chest pain Stress test neg for ischemia GERD and costochondritis in differential diagnosis Volume overload s/p hemodialysis Nephrology consulted,following Acute on Chronic diastolic CHF exacerbation Secondary to volume overload End stage renal disease on dialysis Nephrology following T2DM (type 2 diabetes mellitus) Continue continue coverage Check hemoglobin A1c Hypertension Continue antihypertensives Hyponatremia Secondary to increased volume--dilutional DVT prophylaxis On heparin and GI prophylaxis 01/11 Covid 19 survey testing sent, nasal swab done 01/10 01/12 Patient has acute resp failure. may need Oxygen on dc. awaiting Covid result 01/13 Still has shortness of breath, awaiting Covid test. 01/14 Pt still dyspneic, await covid testing, Pulse ox 83% 01/16/2020. Patient remains dyspneic. Follow-up COVID testing. 01/17/2020. Patient still requiring large amounts of oxygen. Patient currently with 15 L satting at 95%. Patient with increased inflammatory markers. Follow- up chest x-ray today. 01/18/20--Patient still requiring large amounts of oxygen. Patient currently with 15 L %. Patient with increased inflammatory markers. 01/19/2020 very elevated inflammatory markers- ferritin> 2000, CRP >24, LDH> 600, d-dimer >1000 putting her at high risk for ARDS. Continue hydroxychloroquine 400 mg PO BID for 1 day then 200 mg PO BID for 4 days (total 5 days) with zinc 220 mg PO qday. Continue ceftriaxone. ContinueCOVID isolationprecautions pe r [facility] protocol. Continue serial Ferritin, LDH, D-Dimer, CRP every 48h 01/20/2020. Inflammatory markers remain elevated with ferritin 1826, LDH 496, CRP 19.3, and d-dimer 2072. Patient requiring high flow nasal cannula 40L, FiO2 80%. Pulmonary following. Continue antibiotics and Plaquenil. Continue COVID isolationprecautions per [facility] protocol. Patient has a high risk mortality and remains guarded. 01/21/2020. Continue antibiotics and Plaquenil. Continue COVID isolationprecautions per [facility] protocol. Maintain sats of 88% and greater. Still on HFNC, O2 weaned to 95% overnight. Sats documented at 98%. Pulmonary following and reports If patient progresses could give bipap a one hour trial to see if there is improvement, repeat ABG, if not would suggest elective intubation 01/22/2020 Patient still critically ill. Yesterday 01/20 had cardiopulmonary arrest so now intubated in ICU. Prognosis guarded. 01/23/2020 still critically ill. No more fever. Continue vent management. 01/24/20 Still critically ill, remain on vent. Continue current management. Will call . 01/25/20 Patient still critically ill. I called Davis Hernandez and gave update. He wants DNR status and says he will request withdrawal of care if patient does not get better after weekend. I discussed with Braze Operator. 01/26/20 patient still intubated, on vent. She means a DNR order. Discussed with Nurse 01/26 patient still critically ill, vent dependent. 01/27 patient still intubated, on vent. On levophed to keep MAP>65mmhg 01/29/2020 patient still intubated on mechanical ventilation. AC mode ventila tion with rate 20, tidal volume 400, FiO2 45% and PEEP 12. patient with no fever. Patient currently with sedation of propofol. Patient received hemodialysis yesterday with approximately 3 L removed. 01/30/2020. Patient still on mechanical ventilation. AC mode ventilation with rate 20, tidal volume 400, FiO2 45% and PEEP 8. Patient with elevated alkaline phosphatase. Check abdominal ultrasound. 01/31/2020. Patient still on mechanical ventilation. PSV mode ventilation with FiO2 50% and PEEP 8 and PS=12. Follow-up abdominal ultrasound for elevated alkaline phosphatase 02/01/2020. Patient currently with PSV FiO2 50%, pressure support 12, PEEP 8. Continue PSV trials per pulmonary. Continue Levophed to maintain MAP greater than 65. Continue propofol for sedation. 02/02/2020. Patient currently on AC mode ventilation rate 20, tidal volume 450, FiO2 50% and PEEP of 6. ABG with pH of 7.31, PCO2 56.4, and PO2 85. Patient confirmed COVID-19 positive on 01/17/2020. Patient with MOSF and guarded prognosis. Follow-up abdominal ultrasound (ordered 3 days ago) for elevated alkaline phosphatase and fevers. 02/03/2020. Patient continues on mechanical ventilation AC mode with rate 20, tidal volume 450 and PEEP of 8. Patient still with temperature 100.5. Patient off sedation but requiring Levophed at 2 mics. Patient with an episode of hypoglycemia yesterday requiring D5 half-normal. Continue to monitor for hypoglycemia. Patient with MOSF and guarded prognosis. Follow-up abdominal ultrasound (ordered 4 days ago) for elevated alkaline phosphatase and fevers. 02/04/2020. Patient continues on mechanical ventilation AC mode with rate 20, tidal volume 450, FiO2 50% and PEEP of 8. Patient continues to have fevers. Patient currently on Levophed. Continue pressors to maintain map greater than 65. Hemoglobin 6.9-1 unit PRBCs ordered. Patient may be able to wean off of Levophed with volume resuscitation of PRBCs. Follow-up abdominal ultrasound (ordered 5 days ago) for elevated alkaline phosphatase and fevers. Patient's prognosis remains guarded. 02/05/2020 patient with covid-19 infection with acute resp failure, intubated, still on vent. Now off Levophed since 02/0302/06/2020 patient with Covid-19 infection. fever yesterday, none today. Continuje current management. Prognosis guarded. 02/07/2020 patient with Covid-19 infection. Still intubated, on vent. Ongoig fever. DNR code status. prognosis remains guarded. 02/08/2020 patient with Covid-19 infection. Still intubated. Ongoing weaning attempts. I called and gave update to , Mr. Davis Medina yesterday. 02/09/2020 patient with Covid-19. No fever X 48 hrs. Repeat covid-19 test negative. I discussed with yesterday 02/08/20. 02/10/2020 Patient with Covid-19. No more fever 02/11/2020 Patient with Covid 19 infection,still intubated, on vent. Plan is to arrange transfer o [facility], telehealth case manager working on it. 02/12/2020. Continue steroids for 7 days followed by taper per ID recomme ndations. Antibiotics completed. Patient will likely need trach and LTAC placement. The high probability of a clinically significant, sudden or life threatening deterioration of the [immunologic and respiratory] system(s) required my full and direct attention, intervention and personal management. The aggregate critical care time was [31] minutes. This time is in addition to time spent performing reported procedures but includes the following: [x] Data Review and interpretation [x] Patient assessment and monitoring of vital signs [x] Documentation [x] Medication orders and management History Interval history: Patient on mechanical ventilation. Hospitalist Physical - Constitutional Vitals: Temp Pulse Resp BP Pulse Ox 98.3 F 96 H 24 141/69 100 02/12/20 08:00 02/12/20 07:57 02/12/20 06:00 02/12/20 07:57 02/12/20 07:57 General appearance: Present: no acute distress - EENT Eyes: Present: PERRL, EOM intact ENT: hearing intact, clear oral mucosa, dentition normal - Neck Neck: Present: supple, normal ROM - Respiratory Respiratory effort: normal Respiratory: bilateral: CTA - Cardiovascular Rhythm: regular Heart Sounds: Present: S1 & S2. Absent: gallop, rub - Extremities Extremities: no ischemia, No edema, Full ROM - Abdominal General gastrointestinal: soft, non-tender, non-distended, normal bowel sounds - Integumentary Integumentary: Present: clear, warm, dry - Neurologic Neurologic: CNII-XII intact, moves all extremities BREEZY score - Breezy Score Age > 65: (1) Yes Aspirin use within the Past 7 Days: (1) Yes 3 or more CAD Risk Factors: (1) Yes 2 or more Angina events in past 24 hrs: (1) Yes Known CAD with more than 50% Stenosis: (0) No Elevated Cardiac Markers: (0) No ST Deviation Greater than 0.5mm: (0) No BREEZY Score: 4 Results - Labs CBC & Chem 7: 02/12/20 05:00 02/12/20 05:00 Labs: Laboratory Last Values WBC 31.3 K/mm3 (4.5-11.0) H 02/12/20 05:00 RBC 2.79 M/mm3 (3.65-5.03) L 02/12/20 05:00 Hgb 8.0 gm/dl (10.1-14.3) L 02/12/20 05:00 Hct 25.4 % (30.3-42.9) L 02/12/20 05:00 MCV 91 fl (79-97) 02/12/20 05:00 MCH 29 pg (28-32) 02/12/20 05:00 MCHC 32 % (30-34) 02/12/20 05:00 RDW 18.4 % (13.2-15.2) H 02/12/20 05:00 Plt Count 566 K/mm3 (140-440) H 02/12/20 05:00 Lymph % (Auto) Landing Signal Officer 02/03/20 03:59 [place] % (Auto) Landing Signal Officer 02/03/20 03:59 Eos % (Auto) Landing Signal Officer 02/03/20 03:59 Baso % (Auto) Landing Signal Officer 02/03/20 03:59 Lymph # Landing Signal Officer 02/03/20 03:59 [place] # Landing Signal Officer 02/03/20 03:59 Eos # Landing Signal Officer 02/03/20 03:59 Baso # Landing Signal Officer 02/03/20 03:59 Add Manual Diff Complete 02/05/20 04:35 Total Counted 100 02/05/20 04:35 Seg Neutrophils % Landing Signal Officer 02/05/20 04:35 Seg Neuts % (Manual) 96.0 % (40.0-70.0) H 02/05/20 04:35 Band Neutrophils % 0 % 02/05/20 04:35 Lymphocytes % (Manual) 1.0 % (13.4-35.0) L 02/05/20 04:35 Reactive Lymphs % (Man) 0 % 02/05/20 04:35 Monocytes % (Manual) 1.0 % (0.0-7.3) 02/05/20 04:35 Eosinophils % (Manual) 2.0 % (0.0-4.3) 02/05/20 04:35 Basophils % (Manual) 0 % (0.0-1.8) 02/05/20 04:35 Metamyelocytes % 0 % 02/05/20 04:35 Myelocytes % 0 % 02/05/20 04:35 Promyelocytes % 0 % 02/05/20 04:35 Blast Cells % 0 % 02/05/20 04:35 Nucleated RBC % Not Reportable 02/05/20 04:35 Seg Neutrophils # Landing Signal Officer 02/03/20 03:59 Seg Neutrophils # Man 23.4 K/mm3 (1.8-7.7) H 02/05/20 04:35 Band Neutrophils # 0.0 K/mm3 02/05/20 04:35 Lymphocytes # (Manual) 0.2 K/mm3 (1.2-5.4) L 02/05/20 04:35 Abs React Lymphs (Man) 0.0 K/mm3 02/05/20 04:35 Monocytes # (Manual) 0.2 K/mm3 (0.0-0.8) 02/05/20 04:35 Eosinophils # (Manual) 0.5 K/mm3 (0.0-0.4) H 02/05/20 04:35 Basophils # (Manual) 0.0 K/mm3 (0.0-0.1) 02/05/20 04:35 Metamyelocytes # 0.0 K/mm3 02/05/20 04:35 Myelocytes # 0.0 K/mm3 02/05/20 04:35 Promyelocytes # 0.0 K/mm3 02/05/20 04:35 Blast Cells # 0.0 K/mm3 02/05/20 04:35 WBC Morphology Not Reportable 02/05/20 04:35 Hypersegmented Neuts Not Reportable 02/05/20 04:35 Hyposegmented Neuts Not Reportable 02/05/20 04:35 Hypogranular Neuts Not Reportable 02/05/20 04:35 Smudge Cells Not Reportable 02/05/20 04:35 Toxic Granulation Not Reportable 02/05/20 04:35 Toxic Vacuolation Not Reportable 02/05/20 04:35 Dohle Bodies Not Reportable 02/05/20 04:35 Pelger-Huet Anomaly Not Reportable 02/05/20 04:35 Armando Rods Not Reportable 02/05/20 04:35 Platelet Estimate Consistent w auto 02/05/20 04:35 Clumped Platelets Not Reportable 02/05/20 04:35 Plt Clumps, EDTA Not Reportable 02/05/20 04:35 Large Platelets Not Reportable 02/05/20 04:35 Giant Platelets Not Reportable 02/05/20 04:35 Platelet Satelliting Not Reportable 02/05/20 04:35 Plt Morphology Comment Not Reportable 02/05/20 04:35 RBC Morphology Not Reportable 02/05/20 04:35 Dimorphic RBCs Not Reportable 02/05/20 04:35 Polychromasia Not Reportable 02/05/20 04:35 Hypochromasia Rare 02/05/20 04:35 Poikilocytosis Not Reportable 02/05/20 04:35 Anisocytosis Few 02/05/20 04:35 Microcytosis Not Reportable 02/05/20 04:35 Macrocytosis Rare 02/05/20 04:35 Spherocytes Not Reportable 02/05/20 04:35 Pappenheimer Bodies Not Reportable 02/05/20 04:35 Sickle Cells Not Reportable 02/05/20 04:35 Target Cells Not Reportable 02/05/20 04:35 Tear Drop Cells Not Reportable 02/05/20 04:35 Ovalocytes Not Reportable 02/05/20 04:35 Helmet Cells Not Reportable 02/05/20 04:35 Vu-Shell Bodies Not Reportable 02/05/20 04:35 Buc[place]e Rings Not Reportable 02/05/20 04:35 Surprise Cells Not Reportable 02/05/20 04:35 Bite Cells Not Reportable 02/05/20 04:35 Crenated Cell Not Reportable 02/05/20 04:35 Elliptocytes Not Reportable 02/05/20 04:35 Acanthocytes (Spur) Not Reportable 02/05/20 04:35 Rouleaux Not Reportable 02/05/20 04:35 Hemoglobin C Crystals Not Reportable 02/05/20 04:35 Schistocytes Not Reportable 02/05/20 04:35 Malaria parasites Not Reportable 02/05/20 04:35 Ney Bodies Not Reportable 02/05/20 04:35 Hem Pathologist Commnt No 02/05/20 04:35 PT 15.6 Sec. (12.2-14.9) H 01/09/20 12:55 INR 1.22 (0.87-1.13) H 01/09/20 12:55 APTT 31.5 Sec. (24.2-36.6) 01/09/20 12:55 D-Dimer 2896.73 ng/mlDDU (0-234) H 02/05/20 13:55 Heparin Anti-Xa Level 0.77 U.I./ml (0.3-0.7) H 02/02/20 05:44 ABG pH 7.351 pH Units (7.350-7.450) 04/24/20 20:45 ABG pCO2 58.7 mm Hg 02/08/20 20:45 ABG pO2 79.1 mm Hg (80.0-90.0) L 02/08/20 20:45 ABG HCO3 31.7 mmol/L (20.0-26.0) H 02/08/20 20:45 ABG O2 Saturation 95.6 % (95.0-99.0) 02/08/20 20:45 ABG O2 Content 17.0 (0.0-44) 02/08/20 20:45 ABG Base Excess 4.6 mmol/L (-2.0-3.0) H 02/08/20 20:45 ABG Hemoglobin 12.9 gm/dl (12.0-16.0) 02/08/20 20:45 ABG Carboxyhemoglobin 1.7 % (0.0-5.0) 02/08/20 20:45 ABG Methemoglobin 0.5 % (0.0-1.5) 02/08/20 20:45 Oxyhemoglobin 93.5 % (95.0-99.0) L 02/08/20 20:45 FiO2 40 % 02/08/20 20:45 Sodium 136 mmol/L (137-145) L 02/12/20 05:00 Potassium 4.3 mmol/L (3.6-5.0) 02/12/20 05:00 Chloride 95.6 mmol/L (98-107) L 02/12/20 05:00 Carbon Dioxide 28 mmol/L (22-30) 02/12/20 05:00 Anion Gap 17 mmol/L 02/12/20 05:00 BUN 102 mg/dL (7-17) H 02/12/20 05:00 Creatinine 3.0 mg/dL (0.7-1.2) H 02/12/20 05:00 Estimated GFR 19 ml/min 02/12/20 05:00 BUN/Creatinine Ratio 34 % 02/12/20 05:00 Glucose 170 mg/dL (65-100) H 02/12/20 05:00 POC Glucose 157 (70-105) H 02/12/20 05:25 Hemoglobin A1c 5.0 % (4-6) 01/10/20 06:54 Calcium 8.7 mg/dL (8.4-10.2) 02/12/20 05:00 Phosphorus 3.30 mg/dL (2.5-4.5) 01/12/20 16:01 Magnesium 2.00 mg/dL (1.7-2.3) 01/13/20 06:11 Ferritin > 2000.0 ng/mL (13.0-400.0) H 02/05/20 13:55 Total Bilirubin 0.50 mg/dL (0.1-1.2) 02/02/20 05:44 Direct Bilirubin 0.3 mg/dL (0-0.2) H 02/02/20 05:44 Indirect Bilirubin 0.2 mg/dL 02/02/20 05:44 AST 179 units/L (5-40) H 02/02/20 05:44 ALT 106 units/L (7-56) H 02/02/20 05:44 Alkaline Phosphatase 557 units/L (35-129) H 02/02/20 05:44 Lactate Dehydrogenase 311 units/L (91-180) H 02/05/20 13:55 Troponin T 0.315 ng/mL (0.00-0.029) H* 01/10/20 06:54 C-Reactive Protein 17.30 mg/dL (0.00-1.30) H 02/05/20 13:55 NT-Pro-B Natriuret Pep 11019 pg/mL (0-900) H 01/09/20 12:55 Total Protein 6.1 g/dL (6.3-8.2) L 02/02/20 05:44 Albumin 2.3 g/dL (3.9-5) L 02/02/20 05:44 Albumin/Globulin Ratio 0.6 % 02/02/20 05:44 Triglycerides 56 mg/dL (2-149) 01/30/20 04:04 Cholesterol 123 mg/dL (50-199) 01/09/20 12:55 LDL Cholesterol Direct 66 mg/dL (50-130) 01/09/20 12:55 HDL Cholesterol 47 mg/dL (40-59) 01/09/20 12:55 Cholesterol/HDL Ratio 2.61 % 01/09/20 12:55 Random Vancomycin 23.9 ug/mL (0-40.0) 04/24/20 04:56 Coronavirus (PCR) Negative (Negative) 02/08/20 10:06 Hepatitis A IgM Ab Non-reactive (NonReactive) 01/21/20 23:40 Hep Bs Antigen Non-reactive (Negative) 01/21/20 23:40 Hep B Core IgM Ab Non-reactive (NonReactive) 01/21/20 23:40 Hepatitis C Antibody Non-reactive (NonReactive) 01/21/20 23:40 Miscellaneous Test See scanned result 01/11/20 Unknown Miscellaneous Test See scanned result 01/11/20 Unknown Blood Type O POSITIVE 02/04/20 10:47 Antibody Screen Negative 02/04/20 10:47 Crossmatch See Detail 02/04/20 10:47 Pleitez/IV: Voiding Method Incontinent IV Catheter Type [Left Chest] Infusaport IV Catheter Type [Right Peripheral IV External Jugular] IV Catheter Type [Left INT / Saline Lock External Jugular] IV Catheter Type [Left Upper AV Graft arm] Active Medications - Current Medications Current Medications: Generic Name Dose Route Start Last Admin Trade Name Freq PRN Reason Stop Dose Admin Acetaminophen 650 mg 01/09/20 16:33 02/05/20 05:58 Tylenol PO 650 mg Q4H PRN Administration Pain MILD(1-3)/Fever >100.5/MEANS Lipase/Protease/Amylase 1 each 01/23/20 14:28 02/07/20 13:18 Pancreaze 10,500 Unit FEEDTUBE 1 each PRN PRN Administration For Clogged Feeding Tube Atorvastatin Calcium 40 mg 01/09/20 22:00 02/11/20 22:02 Lipitor PO 40 mg QHS PHILLY Administration Dextrose 50 ml 01/23/20 07:26 02/02/20 11:33 D50w (25gm) Syringe IV 50 ml Q30MIN PRN Administration BLOOD GLUCOSE < 70 Dextrose 25 ml 01/24/20 08:58 01/24/20 13:41 D50w (25gm) Syringe IV 25 ml Q4H PRN Administration BG < 80 MG/DL Docusate Sodium 100 mg 01/25/20 22:00 02/11/20 22:02 Colace PO Not Given BID PHILLY Epoetin Helio 20,000 unit 02/04/20 12:00 02/04/20 13:00 Procrit SUB-Q 20,000 unit SILVERIO PHILLY Administration Famotidine 20 mg 01/09/20 22:00 02/11/20 13:20 Pepcid PO 20 mg DAILY PHILLY Administration Heparin Sodium (Porcine) 5,000 unit 02/07/20 10:00 02/11/20 22:01 Heparin SUB-Q 5,000 unit Q12HR PHILLY Administration Norepinephrine 4 mg in 250 mls @ 7.5 mls/hr 01/21/20 18:00 02/11/20 15:00 Levophed Drip 4 Mg/Ns 250 Ml IV 0 mcg/min TITR PHILLY 0 mls/hr Titration Protocol 2 MCG/MIN Sodium Chloride 100 mls @ 999 mls/hr 02/12/20 08:17 Nacl 0.9% IV SILVERIO PRN Hypotension Insulin Glargine 15 units 02/10/20 13:00 02/11/20 10:05 Lantus SUB-Q 15 units DAILY PHILLY Administration Insulin Human Lispro 0 unit 02/07/20 12:00 02/12/20 05:37 Humalog SUB-Q 2 unit Q6HR PHILLY Administration Protocol Lorazepam 2 mg 01/23/20 15:36 Ativan IV Q10MIN PRN Agitation Methylprednisolone Sodium Succinate 40 mg 02/07/20 14:00 02/12/20 07:20 Solu-Medrol IV 40 mg Q8HR PHILLY Administration Ondansetron HCl 4 mg 01/09/20 16:33 01/20/20 10:19 Zofran IV 4 mg Q8H PRN Administration Nausea And Vomiting Simple Syrup 15 ml 01/23/20 14:28 Simple Syrup FEEDTUBE PRN PRN Hypoglycemia Simple Syrup 30 ml 01/23/20 14:28 Simple Syrup FEEDTUBE PRN PRN Hypoglycemia Sodium Bicarbonate 325 mg 01/23/20 14:28 Sodium Bicarbonate FEEDTUBE PRN PRN For Clogged Feeding Tube Sodium Chloride 10 ml 01/09/20 22:00 02/11/20 22:01 Sodium Chloride Flush Syringe 10 Ml IV 10 ml BID PHILLY Administration Sodium Chloride 10 ml 01/09/20 16:33 Sodium Chloride Flush Syringe 10 Ml IV PRN PRN LINE FLUSH Nutrition/Malnutrition Assess - Dietary Evaluation Nutrition/Malnutrition Findings: Nutrition Notes Start: 01/17/20 13:49 Freq: Status: Active Protocol: Document 02/06/20 14:10 LM (Rec: 02/07/20 14:12 LM [id number]) Nutrition Notes Initial or Follow up Reassessment Current Diagnosis CKD (stage V CKD),Diabetes, Hypertension,Heart Failure, Respiratory Failure Other Pertinent Diagnosis on HD, Bilat pneu, COVID-19 (+ ) Current Diet Nepro 1.8 at 35ml/hr Labs/Tests Na 136 Pertinent Medications Reviewed Height 5 ft 6 in Weight 78 kg [place] Body Weight (kg) 59.09 BMI 27.7 Subjective/Other Information Per RN notes TF is tolerating TF at goal. Percent of energy/protein needs met: 94%/75% Burn Absent Trauma Absent Current % PO Negligible Minimum of two criteria Yes Fluid Accumulation Mild (non-severe) Reduced Ross Carrier Driver Strength Measurably Reduced (severe) #1 Nutrition Diagnosis Malnutrition Diagnosis Progress(for reassessment Continues documentation) Is patient on ventilator? No Calculation Used for Recommendations [place] [place] Additional Notes Protein: 91-151g (1.2-2g/kg) Fluid: per MD Nutrition Intervention Change Diet Order: Continue TF Nutrition Support: Nepro 1.8 at 35ml/hr (goal rate) Flush 50ml q4hr for hyponatremia Flush 150ml q4h once hyponatremia resolves Kcal 1,512 Protein (gm) 68 Fluid (mL) 611 Goal #1 TF tolerance Goal #2 Meet at least 75% of energy and protein needs via TF Anticipated Discharge Needs: unable to determine at this time Follow-Up By: 02/12/20 Additional Comments F/U for TF tolerance, Na lab
[2020-02-12] MEDS: INSULIN GLARGINE 100 UNITS/ML SUB-Q SCH (10:47)
[2020-02-12] MEDS: FAMOTIDINE 20 MG TAB PO SCH (10:47)
[2020-02-12] MEDS: HEPARIN 5,000 UNIT/1 ML VIAL SUB-Q SCH ×2 (10:47→21:39)
[2020-02-12] MEDS: DOCUSATE SODIUM 100 MG/10 ML ORAL LIQD PO SCH ×2 (10:49→21:39)
--- NOTE | 2020-02-12 11:18 | Progress Note ---
Assessment and Plan 64 y/o female with COVID positive, viral pneumonia with some pulmonary vascular congestion superimposed. 1. Failed PSV yesterday with tachypnea. Currently on a Rate. To get HD today so will continue rate for now and attempt PSV tomorrow. Spoke with surgery who will eval for trach and peg. LTACH is willing to take patient. COVID repeat is negative with no fevers. 2. HD per renal. will do again Today. 3. Changed back to prophylactic dosing for VTE as not confirmed the presence of VTE 4. Continue isolation for now. 5. Once trached and pegged, as long as no other changes clinically, would be stable for transfer to [facility] for further weaning. CCT 31 minutes. Subjective Date of service: 02/12/20 Principal diagnosis: Pneumonia Interval history: Unable to do all of HD yesterday secondary to hemodynamic instability. Stopped all BP meds for today. BP elevated this am and renal planning on HD again. Spoke with surgery who will evaluate for trach and peg placement. Objective Vital Signs - 12hr 02/11/20 02/11/20 02/11/20 23:16 23:22 23:27 Temperature 98.6 F Pulse Rate 95 H Respiratory 25 H 24 Rate Blood Pressure 134/61 O2 Sat by Pulse 100 100 Oximetry 02/11/20 02/11/20 02/12/20 23:30 23:46 00:00 Temperature Pulse Rate 93 H 89 96 H Respiratory 30 H 30 H 25 H Rate Blood Pressure 134/61 103/55 142/62 O2 Sat by Pulse 100 99 100 Oximetry 02/12/20 02/12/20 02/12/20 00:04 00:16 00:30 Temperature Pulse Rate 95 H 94 H 95 H Respiratory 25 H 24 24 Rate Blood Pressure 142/62 139/61 144/63 O2 Sat by Pulse 100 100 100 Oximetry 02/12/20 02/12/20 02/12/20 00:45 01:00 01:15 Temperature Pulse Rate 96 H 96 H 97 H Respiratory 24 23 22 Rate Blood Pressure 149/65 146/59 148/64 O2 Sat by Pulse 100 100 100 Oximetry 02/12/20 02/12/20 02/12/20 01:30 01:46 02:00 Temperature Pulse Rate 97 H 96 H 96 H Respiratory 22 22 23 Rate Blood Pressure 144/66 142/61 135/60 O2 Sat by Pulse 100 100 100 Oximetry 02/12/20 02/12/20 02/12/20 02:15 02:28 02:30 Temperature Pulse Rate 96 H 90 96 H Respiratory 26 H 24 19 Rate Blood Pressure 140/66 136/62 O2 Sat by Pulse 100 100 100 Oximetry 02/12/20 02/12/20 02/12/20 02:45 03:00 03:13 Temperature 97.5 F L Pulse Rate 95 H 92 H Respiratory 23 24 Rate Blood Pressure 140/64 140/61 O2 Sat by Pulse 100 100 Oximetry 02/12/20 02/12/20 02/12/20 03:16 03:30 03:46 Temperature Pulse Rate 90 94 H Respiratory 28 H 20 Rate Blood Pressure 114/54 144/67 143/81 O2 Sat by Pulse 100 100 100 Oximetry 02/12/20 02/12/20 02/12/20 03:55 04:00 04:16 Temperature Pulse Rate 94 H 94 H 93 H Respiratory 24 22 23 Rate Blood Pressure 156/74 141/71 O2 Sat by Pulse 100 100 100 Oximetry 02/12/20 02/12/20 02/12/20 04:30 04:45 05:00 Temperature Pulse Rate 96 H 90 88 Respiratory 22 21 24 Rate Blood Pressure 142/66 129/70 127/68 O2 Sat by Pulse 98 100 100 Oximetry 02/12/20 02/12/20 02/12/20 05:15 05:30 05:45 Temperature Pulse Rate 87 90 95 H Respiratory 20 25 H 23 Rate Blood Pressure 132/66 141/75 149/68 O2 Sat by Pulse 100 100 100 Oximetry 02/12/20 02/12/20 02/12/20 06:00 07:57 08:00 Temperature 98.3 F Pulse Rate 90 96 H Respiratory 24 Rate Blood Pressure 142/66 141/69 O2 Sat by Pulse 100 100 Oximetry Constitutional: other (orally intubated, not sedated currently on vent. on AC 450 50) Eyes: non-icteric ENT: oropharynx moist Neck: supple Effort: normal Ascultation: Bilateral: rales Cardiovascular: regular rate and rhythm (no mrg) Gastrointestinal: normoactive bowel sounds, soft, non-tender, non-distended Integumentary: normal Extremities: no cyanosis, no edema, pink and warm Neurologic: unable to assess Psychiatric: mood appropriate, affect normal CBC and BMP: 02/12/20 05:00 02/12/20 05:00 ABG, PT/INR, D-dimer: ABG ABG pH 7.351 pH Units (7.350-7.450) 02/08/20 20:45 ABG pCO2 58.7 mm Hg 02/08/20 20:45 ABG pO2 79.1 mm Hg (80.0-90.0) L 02/08/20 20:45 ABG O2 Saturation 95.6 % (95.0-99.0) 02/08/20 20:45 PT/INR, D-dimer PT 15.6 Sec. (12.2-14.9) H 01/09/20 12:55 INR 1.22 (0.87-1.13) H 01/09/20 12:55 D-Dimer 2896.73 ng/mlDDU (0-234) H 02/05/20 13:55 Abnormal lab findings: Abnormal Labs 01/09/20 01/09/20 01/09/20 12:55 12:55 12:55 WBC 4.4 L RBC 3.44 L Hgb Hct MCV RDW 17.0 H Plt Count Lymph % (Auto) 6.8 L [place] % (Auto) 13.6 H Lymph # 0.3 L Seg Neutrophils % 79.0 H Seg Neuts % (Manual) Lymphocytes % (Manual) Nucleated RBC % Seg Neutrophils # Man Lymphocytes # (Manual) Monocytes # (Manual) Eosinophils # (Manual) PT 15.6 H INR 1.22 H D-Dimer Heparin Anti-Xa Level ABG pH ABG pO2 ABG HCO3 ABG O2 Saturation ABG Base Excess ABG Hemoglobin Oxyhemoglobin Sodium 130 L Potassium Chloride 88.9 L Carbon Dioxide 20 L BUN 41 H Creatinine 7.6 H Glucose 115 H POC Glucose Calcium Magnesium Ferritin Direct Bilirubin AST ALT Alkaline Phosphatase 153 H Lactate Dehydrogenase Troponin T 0.382 H* C-Reactive Protein NT-Pro-B Natriuret Pep 14430 H Total Protein Albumin 3.2 L Crossmatch 01/09/20 01/10/20 01/10/20 20:14 00:16 06:54 WBC 3.3 L RBC 3.00 L Hgb 9.2 L Hct 27.8 L MCV RDW 17.2 H Plt Count Lymph % (Auto) 8.9 L [place] % (Auto) 11.5 H Lymph # 0.3 L Seg Neutrophils % 79.1 H Seg Neuts % (Manual) Lymphocytes % (Manual) Nucleated RBC % Seg Neutrophils # Man Lymphocytes # (Manual) Monocytes # (Manual) Eosinophils # (Manual) PT INR D-Dimer Heparin Anti-Xa Level ABG pH ABG pO2 ABG HCO3 ABG O2 Saturation ABG Base Excess ABG Hemoglobin Oxyhemoglobin Sodium Potassium Chloride Carbon Dioxide BUN Creatinine Glucose POC Glucose Calcium Magnesium Ferritin Direct Bilirubin AST ALT Alkaline Phosphatase Lactate Dehydrogenase Troponin T 0.349 H* 0.328 H* C-Reactive Protein NT-Pro-B Natriuret Pep Total Protein Albumin Crossmatch 01/10/20 01/10/20 01/11/20 06:54 06:54 16:45 WBC RBC Hgb Hct MCV RDW Plt Count Lymph % (Auto) [place] % (Auto) Lymph # Seg Neutrophils % Seg Neuts % (Manual) Lymphocytes % (Manual) Nucleated RBC % Seg Neutrophils # Man Lymphocytes # (Manual) Monocytes # (Manual) Eosinophils # (Manual) PT INR D-Dimer Heparin Anti-Xa Level ABG pH ABG pO2 ABG HCO3 ABG O2 Saturation ABG Base Excess ABG Hemoglobin Oxyhemoglobin Sodium 133 L Potassium Chloride 90.6 L Carbon Dioxide BUN 50 H Creatinine 8.4 H Glucose 101 H POC Glucose 106 H Calcium 8.1 L Magnesium Ferritin Direct Bilirubin AST ALT Alkaline Phosphatase 148 H Lactate Dehydrogenase Troponin T 0.315 H* C-Reactive Protein NT-Pro-B Natriuret Pep Total Protein 5.4 L Albumin 2.7 L Crossmatch 01/12/20 01/13/20 01/13/20 16:01 06:11 06:11 WBC 3.1 L RBC 3.25 L Hgb 9.8 L Hct MCV RDW 17.2 H Plt Count 136 L Lymph % (Auto) [place] % (Auto) Lymph # Seg Neutrophils % Seg Neuts % (Manual) Lymphocytes % (Manual) Nucleated RBC % Seg Neutrophils # Man Lymphocytes # (Manual) Monocytes # (Manual) Eosinophils # (Manual) PT INR D-Dimer Heparin Anti-Xa Level ABG pH ABG pO2 ABG HCO3 ABG O2 Saturation ABG Base Excess ABG Hemoglobin Oxyhemoglobin Sodium 135 L Potassium Chloride 93.4 L Carbon Dioxide BUN 19 H Creatinine 4.5 H Glucose 120 H POC Glucose Calcium 7.8 L Magnesium 1.40 L Ferritin Direct Bilirubin AST ALT Alkaline Phosphatase Lactate Dehydrogenase Troponin T C-Reactive Protein NT-Pro-B Natriuret Pep Total Protein Albumin Crossmatch 01/16/20 01/16/20 01/16/20 08:35 11:49 14:11 WBC RBC Hgb Hct MCV RDW Plt Count Lymph % (Auto) [place] % (Auto) Lymph # Seg Neutrophils % Seg Neuts % (Manual) Lymphocytes % (Manual) Nucleated RBC % Seg Neutrophils # Man Lymphocytes # (Manual) Monocytes # (Manual) Eosinophils # (Manual) PT INR D-Dimer Heparin Anti-Xa Level ABG pH ABG pO2 48.4 L ABG HCO3 30.5 H ABG O2 Saturation 81.9 L ABG Base Excess 4.6 H ABG Hemoglobin 10.5 L Oxyhemoglobin 80.1 L Sodium Potassium Chloride Carbon Dioxide BUN Creatinine Glucose POC Glucose 126 H 119 H Calcium Magnesium Ferritin Direct Bilirubin AST ALT Alkaline Phosphatase Lactate Dehydrogenase Troponin T C-Reactive Protein NT-Pro-B Natriuret Pep Total Protein Albumin Crossmatch 01/16/20 01/16/20 01/16/20 15:38 15:38 15:38 WBC RBC Hgb Hct MCV RDW Plt Count Lymph % (Auto) [place] % (Auto) Lymph # Seg Neutrophils % Seg Neuts % (Manual) Lymphocytes % (Manual) Nucleated RBC % Seg Neutrophils # Man Lymphocytes # (Manual) Monocytes # (Manual) Eosinophils # (Manual) PT INR D-Dimer 1104.64 H Heparin Anti-Xa Level ABG pH ABG pO2 ABG HCO3 ABG O2 Saturation ABG Base Excess ABG Hemoglobin Oxyhemoglobin Sodium Potassium Chloride Carbon Dioxide BUN Creatinine Glucose POC Glucose Calcium Magnesium Ferritin > 2000.0 H Direct Bilirubin AST ALT Alkaline Phosphatase Lactate Dehydrogenase 690 H Troponin T C-Reactive Protein 24.10 H NT-Pro-B Natriuret Pep Total Protein Albumin Crossmatch 01/16/20 01/18/20 01/18/20 18:11 06:25 06:25 WBC RBC 3.15 L Hgb 9.4 L Hct 29.4 L MCV RDW 17.5 H Plt Count 135 L Lymph % (Auto) 3.8 L [place] % (Auto) Lymph # 0.2 L Seg Neutrophils % 88.8 H Seg Neuts % (Manual) Lymphocytes % (Manual) Nucleated RBC % Seg Neutrophils # Man Lymphocytes # (Manual) Monocytes # (Manual) Eosinophils # (Manual) PT INR D-Dimer Heparin Anti-Xa Level ABG pH ABG pO2 ABG HCO3 ABG O2 Saturation ABG Base Excess ABG Hemoglobin Oxyhemoglobin Sodium Potassium Chloride 96.8 L Carbon Dioxide BUN 26 H Creatinine 4.2 H Glucose 115 H POC Glucose 130 H Calcium 8.2 L Magnesium Ferritin Direct Bilirubin AST ALT Alkaline Phosphatase Lactate Dehydrogenase 537 H Troponin T C-Reactive Protein 17.10 H NT-Pro-B Natriuret Pep Total Protein Albumin Crossmatch 01/18/20 01/18/20 01/18/20 06:25 06:25 12:15 WBC RBC Hgb Hct MCV RDW Plt Count Lymph % (Auto) [place] % (Auto) Lymph # Seg Neutrophils % Seg Neuts % (Manual) Lymphocytes % (Manual) Nucleated RBC % Seg Neutrophils # Man Lymphocytes # (Manual) Monocytes # (Manual) Eosinophils # (Manual) PT INR D-Dimer 938.03 H Heparin Anti-Xa Level ABG pH ABG pO2 66.5 L ABG HCO3 30.1 H ABG O2 Saturation 93.2 L ABG Base Excess 4.6 H ABG Hemoglobin 10.0 L Oxyhemoglobin 91.3 L Sodium Potassium Chloride Carbon Dioxide BUN Creatinine Glucose POC Glucose Calcium Magnesium Ferritin 3105.0 H Direct Bilirubin AST ALT Alkaline Phosphatase Lactate Dehydrogenase Troponin T C-Reactive Protein NT-Pro-B Natriuret Pep Total Protein Albumin Crossmatch 01/20/20 01/20/20 01/20/20 07:37 07:37 07:37 WBC RBC Hgb Hct MCV RDW Plt Count Lymph % (Auto) [place] % (Auto) Lymph # Seg Neutrophils % Seg Neuts % (Manual) Lymphocytes % (Manual) Nucleated RBC % Seg Neutrophils # Man Lymphocytes # (Manual) Monocytes # (Manual) Eosinophils # (Manual) PT INR D-Dimer 2072.25 H Heparin Anti-Xa Level ABG pH ABG pO2 ABG HCO3 ABG O2 Saturation ABG Base Excess ABG Hemoglobin Oxyhemoglobin Sodium Potassium Chloride Carbon Dioxide BUN Creatinine Glucose POC Glucose Calcium Magnesium Ferritin 1826.0 H Direct Bilirubin AST ALT Alkaline Phosphatase Lactate Dehydrogenase 496 H Troponin T C-Reactive Protein 19.30 H NT-Pro-B Natriuret Pep Total Protein Albumin Crossmatch 01/20/20 01/21/20 01/21/20 17:30 03:59 17:35 WBC RBC Hgb Hct MCV RDW Plt Count Lymph % (Auto) [place] % (Auto) Lymph # Seg Neutrophils % Seg Neuts % (Manual) Lymphocytes % (Manual) Nucleated RBC % Seg Neutrophils # Man Lymphocytes # (Manual) Monocytes # (Manual) Eosinophils # (Manual) PT INR D-Dimer Heparin Anti-Xa Level ABG pH ABG pO2 61.1 L 67.4 L ABG HCO3 29.9 H 26.2 H ABG O2 Saturation 91.7 L 93.4 L ABG Base Excess 4.9 H ABG Hemoglobin 9.0 L 9.1 L Oxyhemoglobin 89.5 L 91.1 L Sodium 136 L Potassium Chloride Carbon Dioxide BUN 36 H Creatinine 4.9 H Glucose POC Glucose Calcium Magnesium Ferritin Direct Bilirubin AST ALT Alkaline Phosphatase Lactate Dehydrogenase Troponin T C-Reactive Protein NT-Pro-B Natriuret Pep Total Protein Albumin Crossmatch 01/21/20 01/22/20 01/22/20 Unknown 03:41 03:41 WBC RBC Hgb Hct MCV RDW Plt Count Lymph % (Auto) [place] % (Auto) Lymph # Seg Neutrophils % Seg Neuts % (Manual) Lymphocytes % (Manual) Nucleated RBC % Seg Neutrophils # Man Lymphocytes # (Manual) Monocytes # (Manual) Eosinophils # (Manual) PT INR D-Dimer Heparin Anti-Xa Level ABG pH 7.465 H ABG pO2 48.9 L ABG HCO3 26.6 H ABG O2 Saturation 85.7 L ABG Base Excess ABG Hemoglobin 10.4 L Oxyhemoglobin 83.5 L Sodium Potassium Chloride Carbon Dioxide BUN Creatinine Glucose POC Glucose Calcium Magnesium Ferritin 6071.0 H Direct Bilirubin AST ALT Alkaline Phosphatase Lactate Dehydrogenase 963 H Troponin T C-Reactive Protein 30.00 H NT-Pro-B Natriuret Pep Total Protein Albumin Crossmatch 01/22/20 01/22/20 01/22/20 03:41 07:47 11:20 WBC RBC Hgb Hct MCV RDW Plt Count Lymph % (Auto) [place] % (Auto) Lymph # Seg Neutrophils % Seg Neuts % (Manual) Lymphocytes % (Manual) Nucleated RBC % Seg Neutrophils # Man Lymphocytes # (Manual) Monocytes # (Manual) Eosinophils # (Manual) PT INR D-Dimer > 12253 H Heparin Anti-Xa Level ABG pH ABG pO2 66.7 L ABG HCO3 28.7 H ABG O2 Saturation 91.9 L ABG Base Excess ABG Hemoglobin 9.1 L Oxyhemoglobin 89.5 L Sodium Potassium Chloride 94.3 L Carbon Dioxide BUN 53 H Creatinine 6.5 H Glucose POC Glucose Calcium Magnesium Ferritin Direct Bilirubin AST ALT Alkaline Phosphatase Lactate Dehydrogenase Troponin T C-Reactive Protein NT-Pro-B Natriuret Pep Total Protein Albumin Crossmatch 01/22/20 01/22/20 01/23/20 11:49 Unknown 04:55 WBC 15.1 H RBC 3.05 L Hgb 8.8 L Hct 28.3 L MCV RDW 17.8 H Plt Count 125 L Lymph % (Auto) [place] % (Auto) Lymph # Seg Neutrophils % Seg Neuts % (Manual) Lymphocytes % (Manual) Nucleated RBC % Seg Neutrophils # Man Lymphocytes # (Manual) Monocytes # (Manual) Eosinophils # (Manual) PT INR D-Dimer Heparin Anti-Xa Level ABG pH 7.340 L ABG pO2 77.7 L 136.3 H ABG HCO3 27.6 H 28.8 H ABG O2 Saturation ABG Base Excess ABG Hemoglobin 9.3 L 10.9 L Oxyhemoglobin 94.2 L Sodium Potassium Chloride Carbon Dioxide BUN Creatinine Glucose POC Glucose Calcium Magnesium Ferritin Direct Bilirubin AST ALT Alkaline Phosphatase Lactate Dehydrogenase Troponin T C-Reactive Protein NT-Pro-B Natriuret Pep Total Protein Albumin Crossmatch 01/23/20 01/23/20 01/23/20 06:23 07:07 12:23 WBC RBC Hgb Hct MCV RDW Plt Count Lymph % (Auto) [place] % (Auto) Lymph # Seg Neutrophils % Seg Neuts % (Manual) Lymphocytes % (Manual) Nucleated RBC % Seg Neutrophils # Man Lymphocytes # (Manual) Monocytes # (Manual) Eosinophils # (Manual) PT INR D-Dimer Heparin Anti-Xa Level ABG pH ABG pO2 ABG HCO3 ABG O2 Saturation ABG Base Excess ABG Hemoglobin Oxyhemoglobin Sodium Potassium Chloride Carbon Dioxide BUN Creatinine Glucose POC Glucose 57 L 127 H 131 H Calcium Magnesium Ferritin Direct Bilirubin AST ALT Alkaline Phosphatase Lactate Dehydrogenase Troponin T C-Reactive Protein NT-Pro-B Natriuret Pep Total Protein Albumin Crossmatch 01/23/20 01/23/20 01/24/20 Unknown Unknown 04:00 WBC 16.2 H RBC 3.08 L Hgb 8.9 L Hct 28.6 L MCV RDW 17.8 H Plt Count 139 L Lymph % (Auto) [place] % (Auto) Lymph # Seg Neutrophils % Seg Neuts % (Manual) Lymphocytes % (Manual) Nucleated RBC % Seg Neutrophils # Man Lymphocytes # (Manual) Monocytes # (Manual) Eosinophils # (Manual) PT INR D-Dimer Heparin Anti-Xa Level < 0.10 L ABG pH ABG pO2 ABG HCO3 ABG O2 Saturation ABG Base Excess ABG Hemoglobin Oxyhemoglobin Sodium Potassium Chloride Carbon Dioxide BUN Creatinine Glucose POC Glucose Calcium Magnesium Ferritin 4195.0 H Direct Bilirubin AST ALT Alkaline Phosphatase Lactate Dehydrogenase Troponin T C-Reactive Protein NT-Pro-B Natriuret Pep Total Protein Albumin Crossmatch 01/24/20 01/24/20 01/24/20 04:00 04:00 04:00 WBC RBC Hgb Hct MCV RDW Plt Count Lymph % (Auto) [place] % (Auto) Lymph # Seg Neutrophils % Seg Neuts % (Manual) Lymphocytes % (Manual) Nucleated RBC % Seg Neutrophils # Man Lymphocytes # (Manual) Monocytes # (Manual) Eosinophils # (Manual) PT INR D-Dimer 5783.11 H Heparin Anti-Xa Level ABG pH 7.188 L* ABG pO2 70.8 L ABG HCO3 32.2 H ABG O2 Saturation 90.4 L ABG Base Excess ABG Hemoglobin 8.5 L Oxyhemoglobin 88.1 L Sodium Potassium Chloride Carbon Dioxide BUN Creatinine Glucose POC Glucose Calcium Magnesium Ferritin Direct Bilirubin AST ALT Alkaline Phosphatase Lactate Dehydrogenase 474 H Troponin T C-Reactive Protein 29.80 H NT-Pro-B Natriuret Pep Total Protein Albumin Crossmatch 01/24/20 01/24/20 01/24/20 05:20 05:51 09:14 WBC RBC Hgb Hct MCV RDW Plt Count Lymph % (Auto) [place] % (Auto) Lymph # Seg Neutrophils % Seg Neuts % (Manual) Lymphocytes % (Manual) Nucleated RBC % Seg Neutrophils # Man Lymphocytes # (Manual) Monocytes # (Manual) Eosinophils # (Manual) PT INR D-Dimer Heparin Anti-Xa Level ABG pH 7.214 L ABG pO2 71.7 L ABG HCO3 31.5 H ABG O2 Saturation 91.8 L ABG Base Excess ABG Hemoglobin 9.1 L Oxyhemoglobin 89.3 L Sodium Potassium Chloride Carbon Dioxide BUN Creatinine Glucose POC Glucose 50 L 53 L Calcium Magnesium Ferritin Direct Bilirubin AST ALT Alkaline Phosphatase Lactate Dehydrogenase Troponin T C-Reactive Protein NT-Pro-B Natriuret Pep Total Protein Albumin Crossmatch 01/24/20 01/24/20 01/24/20 15:10 18:04 21:10 WBC RBC Hgb Hct MCV RDW Plt Count Lymph % (Auto) [place] % (Auto) Lymph # Seg Neutrophils % Seg Neuts % (Manual) Lymphocytes % (Manual) Nucleated RBC % Seg Neutrophils # Man Lymphocytes # (Manual) Monocytes # (Manual) Eosinophils # (Manual) PT INR D-Dimer Heparin Anti-Xa Level ABG pH ABG pO2 ABG HCO3 ABG O2 Saturation ABG Base Excess ABG Hemoglobin Oxyhemoglobin Sodium Potassium Chloride Carbon Dioxide BUN Creatinine Glucose POC Glucose 114 H 51 L 144 H Calcium Magnesium Ferritin Direct Bilirubin AST ALT Alkaline Phosphatase Lactate Dehydrogenase Troponin T C-Reactive Protein NT-Pro-B Natriuret Pep Total Protein Albumin Crossmatch 01/24/20 01/25/20 01/25/20 Unknown 00:32 03:50 WBC 13.0 H RBC 3.10 L Hgb 9.2 L Hct 29.0 L MCV RDW 17.7 H Plt Count Lymph % (Auto) [place] % (Auto) Lymph # Seg Neutrophils % Seg Neuts % (Manual) 92.0 H Lymphocytes % (Manual) 5.0 L Nucleated RBC % Seg Neutrophils # Man 12.0 H Lymphocytes # (Manual) 0.7 L Monocytes # (Manual) Eosinophils # (Manual) PT INR D-Dimer Heparin Anti-Xa Level ABG pH 7.291 L ABG pO2 71.3 L ABG HCO3 30.6 H ABG O2 Saturation 93.6 L ABG Base Excess 3.3 H ABG Hemoglobin 8.1 L Oxyhemoglobin 91.2 L Sodium Potassium Chloride Carbon Dioxide BUN Creatinine Glucose POC Glucose 114 H Calcium Magnesium Ferritin Direct Bilirubin AST ALT Alkaline Phosphatase Lactate Dehydrogenase Troponin T C-Reactive Protein NT-Pro-B Natriuret Pep Total Protein Albumin Crossmatch 01/25/20 01/25/20 01/25/20 04:22 06:05 17:28 WBC RBC Hgb Hct MCV RDW Plt Count Lymph % (Auto) [place] % (Auto) Lymph # Seg Neutrophils % Seg Neuts % (Manual) Lymphocytes % (Manual) Nucleated RBC % Seg Neutrophils # Man Lymphocytes # (Manual) Monocytes # (Manual) Eosinophils # (Manual) PT INR D-Dimer Heparin Anti-Xa Level ABG pH 7.304 L ABG pO2 69.5 L ABG HCO3 29.7 H ABG O2 Saturation 93.2 L ABG Base Excess ABG Hemoglobin 8.7 L Oxyhemoglobin 90.7 L Sodium Potassium Chloride Carbon Dioxide BUN Creatinine Glucose POC Glucose 136 H 127 H Calcium Magnesium Ferritin Direct Bilirubin AST ALT Alkaline Phosphatase Lactate Dehydrogenase Troponin T C-Reactive Protein NT-Pro-B Natriuret Pep Total Protein Albumin Crossmatch 01/26/20 01/26/20 01/26/20 00:20 02:31 02:31 WBC RBC Hgb Hct MCV RDW Plt Count Lymph % (Auto) [place] % (Auto) Lymph # Seg Neutrophils % Seg Neuts % (Manual) Lymphocytes % (Manual) Nucleated RBC % Seg Neutrophils # Man Lymphocytes # (Manual) Monocytes # (Manual) Eosinophils # (Manual) PT INR D-Dimer Heparin Anti-Xa Level ABG pH ABG pO2 ABG HCO3 ABG O2 Saturation ABG Base Excess ABG Hemoglobin Oxyhemoglobin Sodium Potassium Chloride Carbon Dioxide BUN Creatinine Glucose POC Glucose 127 H Calcium Magnesium Ferritin 3764.0 H Direct Bilirubin AST ALT Alkaline Phosphatase Lactate Dehydrogenase 393 H Troponin T C-Reactive Protein 28.60 H NT-Pro-B Natriuret Pep Total Protein Albumin Crossmatch 01/26/20 01/26/20 01/26/20 02:31 04:45 05:24 WBC RBC Hgb Hct MCV RDW Plt Count Lymph % (Auto) [place] % (Auto) Lymph # Seg Neutrophils % Seg Neuts % (Manual) Lymphocytes % (Manual) Nucleated RBC % Seg Neutrophils # Man Lymphocytes # (Manual) Monocytes # (Manual) Eosinophils # (Manual) PT INR D-Dimer 3828.76 H Heparin Anti-Xa Level ABG pH ABG pO2 ABG HCO3 30.8 H ABG O2 Saturation ABG Base Excess 4.9 H ABG Hemoglobin 7.4 L Oxyhemoglobin 94.6 L Sodium Potassium Chloride Carbon Dioxide BUN Creatinine Glucose POC Glucose 121 H Calcium Magnesium Ferritin Direct Bilirubin AST ALT Alkaline Phosphatase Lactate Dehydrogenase Troponin T C-Reactive Protein NT-Pro-B Natriuret Pep Total Protein Albumin Crossmatch 01/26/20 01/26/20 01/26/20 10:40 12:36 18:10 WBC RBC Hgb Hct MCV RDW Plt Count Lymph % (Auto) [place] % (Auto) Lymph # Seg Neutrophils % Seg Neuts % (Manual) Lymphocytes % (Manual) Nucleated RBC % Seg Neutrophils # Man Lymphocytes # (Manual) Monocytes # (Manual) Eosinophils # (Manual) PT INR D-Dimer Heparin Anti-Xa Level ABG pH ABG pO2 ABG HCO3 ABG O2 Saturation ABG Base Excess ABG Hemoglobin Oxyhemoglobin Sodium Potassium Chloride Carbon Dioxide BUN Creatinine Glucose POC Glucose 119 H 126 H 159 H Calcium Magnesium Ferritin Direct Bilirubin AST ALT Alkaline Phosphatase Lactate Dehydrogenase Troponin T C-Reactive Protein NT-Pro-B Natriuret Pep Total Protein Albumin Crossmatch 01/27/20 01/27/20 01/27/20 03:45 06:15 12:19 WBC RBC Hgb Hct MCV RDW Plt Count Lymph % (Auto) [place] % (Auto) Lymph # Seg Neutrophils % Seg Neuts % (Manual) Lymphocytes % (Manual) Nucleated RBC % Seg Neutrophils # Man Lymphocytes # (Manual) Monocytes # (Manual) Eosinophils # (Manual) PT INR D-Dimer Heparin Anti-Xa Level ABG pH 7.307 L ABG pO2 91.1 H ABG HCO3 30.5 H ABG O2 Saturation ABG Base Excess 3.4 H ABG Hemoglobin 8.7 L Oxyhemoglobin 94.3 L Sodium Potassium Chloride Carbon Dioxide BUN Creatinine Glucose POC Glucose 147 H 164 H Calcium Magnesium Ferritin Direct Bilirubin AST ALT Alkaline Phosphatase Lactate Dehydrogenase Troponin T C-Reactive Protein NT-Pro-B Natriuret Pep Total Protein Albumin Crossmatch 01/27/20 01/28/20 01/28/20 17:42 00:29 04:34 WBC RBC Hgb Hct MCV RDW Plt Count Lymph % (Auto) [place] % (Auto) Lymph # Seg Neutrophils % Seg Neuts % (Manual) Lymphocytes % (Manual) Nucleated RBC % Seg Neutrophils # Man Lymphocytes # (Manual) Monocytes # (Manual) Eosinophils # (Manual) PT INR D-Dimer Heparin Anti-Xa Level ABG pH ABG pO2 ABG HCO3 ABG O2 Saturation ABG Base Excess ABG Hemoglobin Oxyhemoglobin Sodium Potassium Chloride Carbon Dioxide BUN Creatinine Glucose POC Glucose 149 H 178 H Calcium Magnesium Ferritin > 2000.0 H Direct Bilirubin AST ALT Alkaline Phosphatase Lactate Dehydrogenase Troponin T C-Reactive Protein NT-Pro-B Natriuret Pep Total Protein Albumin Crossmatch 01/28/20 01/28/20 01/28/20 04:34 04:34 05:20 WBC RBC Hgb Hct MCV RDW Plt Count Lymph % (Auto) [place] % (Auto) Lymph # Seg Neutrophils % Seg Neuts % (Manual) Lymphocytes % (Manual) Nucleated RBC % Seg Neutrophils # Man Lymphocytes # (Manual) Monocytes # (Manual) Eosinophils # (Manual) PT INR D-Dimer 2379 H Heparin Anti-Xa Level ABG pH 7.237 L ABG pO2 90.9 H ABG HCO3 29.1 H ABG O2 Saturation ABG Base Excess ABG Hemoglobin 7.5 L Oxyhemoglobin 94.0 L Sodium Potassium Chloride Carbon Dioxide BUN Creatinine Glucose POC Glucose Calcium Magnesium Ferritin Direct Bilirubin AST ALT Alkaline Phosphatase Lactate Dehydrogenase 434 H Troponin T C-Reactive Protein 9.70 H NT-Pro-B Natriuret Pep Total Protein Albumin Crossmatch 01/28/20 01/28/20 01/28/20 06:21 12:25 18:17 WBC RBC Hgb Hct MCV RDW Plt Count Lymph % (Auto) [place] % (Auto) Lymph # Seg Neutrophils % Seg Neuts % (Manual) Lymphocytes % (Manual) Nucleated RBC % Seg Neutrophils # Man Lymphocytes # (Manual) Monocytes # (Manual) Eosinophils # (Manual) PT INR D-Dimer Heparin Anti-Xa Level ABG pH ABG pO2 ABG HCO3 ABG O2 Saturation ABG Base Excess ABG Hemoglobin Oxyhemoglobin Sodium Potassium Chloride Carbon Dioxide BUN Creatinine Glucose POC Glucose 127 H 196 H 190 H Calcium Magnesium Ferritin Direct Bilirubin AST ALT Alkaline Phosphatase Lactate Dehydrogenase Troponin T C-Reactive Protein NT-Pro-B Natriuret Pep Total Protein Albumin Crossmatch 01/28/20 01/29/20 01/29/20 23:35 04:00 04:00 WBC 12.6 H RBC 3.01 L Hgb 9.2 L Hct 29.3 L MCV 98 H RDW 18.1 H Plt Count Lymph % (Auto) [place] % (Auto) Lymph # Seg Neutrophils % Seg Neuts % (Manual) Lymphocytes % (Manual) Nucleated RBC % Seg Neutrophils # Man Lymphocytes # (Manual) Monocytes # (Manual) Eosinophils # (Manual) PT INR D-Dimer Heparin Anti-Xa Level ABG pH ABG pO2 ABG HCO3 ABG O2 Saturation ABG Base Excess ABG Hemoglobin Oxyhemoglobin Sodium 132 L Potassium Chloride 90.1 L Carbon Dioxide BUN 50 H Creatinine 3.7 H Glucose 184 H POC Glucose 177 H Calcium Magnesium Ferritin Direct Bilirubin AST 93 H ALT Alkaline Phosphatase 678 H Lactate Dehydrogenase Troponin T C-Reactive Protein NT-Pro-B Natriuret Pep Total Protein Albumin 1.7 L Crossmatch 01/29/20 01/29/20 01/29/20 05:03 11:53 16:44 WBC RBC Hgb Hct MCV RDW Plt Count Lymph % (Auto) [place] % (Auto) Lymph # Seg Neutrophils % Seg Neuts % (Manual) Lymphocytes % (Manual) Nucleated RBC % Seg Neutrophils # Man Lymphocytes # (Manual) Monocytes # (Manual) Eosinophils # (Manual) PT INR D-Dimer Heparin Anti-Xa Level ABG pH ABG pO2 ABG HCO3 ABG O2 Saturation ABG Base Excess ABG Hemoglobin Oxyhemoglobin Sodium Potassium Chloride Carbon Dioxide BUN Creatinine Glucose POC Glucose 145 H 193 H 174 H Calcium Magnesium Ferritin Direct Bilirubin AST ALT Alkaline Phosphatase Lactate Dehydrogenase Troponin T C-Reactive Protein NT-Pro-B Natriuret Pep Total Protein Albumin Crossmatch 01/29/20 01/30/20 01/30/20 23:38 04:25 11:45 WBC RBC Hgb Hct MCV RDW Plt Count Lymph % (Auto) [place] % (Auto) Lymph # Seg Neutrophils % Seg Neuts % (Manual) Lymphocytes % (Manual) Nucleated RBC % Seg Neutrophils # Man Lymphocytes # (Manual) Monocytes # (Manual) Eosinophils # (Manual) PT INR D-Dimer Heparin Anti-Xa Level ABG pH 7.253 L ABG pO2 61.8 L ABG HCO3 29.7 H ABG O2 Saturation 90.1 L ABG Base Excess ABG Hemoglobin 8.2 L Oxyhemoglobin 87.5 L Sodium Potassium Chloride Carbon Dioxide BUN Creatinine Glucose POC Glucose 144 H 191 H Calcium Magnesium Ferritin Direct Bilirubin AST ALT Alkaline Phosphatase Lactate Dehydrogenase Troponin T C-Reactive Protein NT-Pro-B Natriuret Pep Total Protein Albumin Crossmatch 01/30/20 01/31/20 01/31/20 18:21 00:04 03:52 WBC RBC Hgb Hct MCV RDW Plt Count Lymph % (Auto) [place] % (Auto) Lymph # Seg Neutrophils % Seg Neuts % (Manual) Lymphocytes % (Manual) Nucleated RBC % Seg Neutrophils # Man Lymphocytes # (Manual) Monocytes # (Manual) Eosinophils # (Manual) PT INR D-Dimer Heparin Anti-Xa Level ABG pH ABG pO2 69.3 L ABG HCO3 29.4 H ABG O2 Saturation ABG Base Excess 3.7 H ABG Hemoglobin 10.8 L Oxyhemoglobin Sodium Potassium Chloride Carbon Dioxide BUN Creatinine Glucose POC Glucose 198 H 129 H Calcium Magnesium Ferritin Direct Bilirubin AST ALT Alkaline Phosphatase Lactate Dehydrogenase Troponin T C-Reactive Protein NT-Pro-B Natriuret Pep Total Protein Albumin Crossmatch 01/31/20 01/31/20 01/31/20 04:00 04:16 05:12 WBC 16.7 H RBC 2.73 L Hgb 8.3 L Hct 25.7 L MCV RDW 18.0 H Plt Count Lymph % (Auto) [place] % (Auto) Lymph # Seg Neutrophils % Seg Neuts % (Manual) 92.0 H Lymphocytes % (Manual) 2.0 L Nucleated RBC % Seg Neutrophils # Man 15.4 H Lymphocytes # (Manual) 0.3 L Monocytes # (Manual) 1.0 H Eosinophils # (Manual) PT INR D-Dimer Heparin Anti-Xa Level ABG pH ABG pO2 ABG HCO3 ABG O2 Saturation ABG Base Excess ABG Hemoglobin Oxyhemoglobin Sodium 130 L Potassium Chloride 90.1 L Carbon Dioxide BUN 61 H Creatinine 3.4 H Glucose 128 H POC Glucose 157 H Calcium Magnesium Ferritin Direct Bilirubin AST 103 H ALT 63 H Alkaline Phosphatase 534 H Lactate Dehydrogenase Troponin T C-Reactive Protein NT-Pro-B Natriuret Pep Total Protein Albumin 2.1 L Crossmatch 01/31/20 01/31/20 01/31/20 11:50 17:39 18:47 WBC RBC Hgb Hct MCV RDW Plt Count Lymph % (Auto) [place] % (Auto) Lymph # Seg Neutrophils % Seg Neuts % (Manual) Lymphocytes % (Manual) Nucleated RBC % Seg Neutrophils # Man Lymphocytes # (Manual) Monocytes # (Manual) Eosinophils # (Manual) PT INR D-Dimer Heparin Anti-Xa Level ABG pH ABG pO2 ABG HCO3 ABG O2 Saturation ABG Base Excess ABG Hemoglobin Oxyhemoglobin Sodium Potassium Chloride Carbon Dioxide BUN Creatinine Glucose POC Glucose 129 H 51 L 172 H Calcium Magnesium Ferritin Direct Bilirubin AST ALT Alkaline Phosphatase Lactate Dehydrogenase Troponin T C-Reactive Protein NT-Pro-B Natriuret Pep Total Protein Albumin Crossmatch 02/01/20 02/01/20 02/01/20 03:49 03:49 05:00 WBC 17.4 H RBC 2.68 L Hgb 8.0 L Hct 25.2 L MCV RDW 18.4 H Plt Count Lymph % (Auto) [place] % (Auto) Lymph # Seg Neutrophils % Seg Neuts % (Manual) Lymphocytes % (Manual) Nucleated RBC % Seg Neutrophils # Man Lymphocytes # (Manual) Monocytes # (Manual) Eosinophils # (Manual) PT INR D-Dimer Heparin Anti-Xa Level ABG pH 7.290 L ABG pO2 ABG HCO3 26.8 H ABG O2 Saturation ABG Base Excess ABG Hemoglobin 7.5 L Oxyhemoglobin 94.2 L Sodium 133 L Potassium Chloride 90.8 L Carbon Dioxide 21 L BUN 90 H Creatinine 4.6 H Glucose 145 H POC Glucose Calcium Magnesium Ferritin Direct Bilirubin AST ALT Alkaline Phosphatase Lactate Dehydrogenase Troponin T C-Reactive Protein NT-Pro-B Natriuret Pep Total Protein Albumin Crossmatch 02/01/20 02/01/20 02/01/20 05:34 06:09 12:42 WBC RBC Hgb Hct MCV RDW Plt Count Lymph % (Auto) [place] % (Auto) Lymph # Seg Neutrophils % Seg Neuts % (Manual) Lymphocytes % (Manual) Nucleated RBC % Seg Neutrophils # Man Lymphocytes # (Manual) Monocytes # (Manual) Eosinophils # (Manual) PT INR D-Dimer Heparin Anti-Xa Level ABG pH ABG pO2 ABG HCO3 ABG O2 Saturation ABG Base Excess ABG Hemoglobin Oxyhemoglobin Sodium Potassium Chloride Carbon Dioxide BUN Creatinine Glucose POC Glucose 166 H 143 H 218 H Calcium Magnesium Ferritin Direct Bilirubin AST ALT Alkaline Phosphatase Lactate Dehydrogenase Troponin T C-Reactive Protein NT-Pro-B Natriuret Pep Total Protein Albumin Crossmatch 02/01/20 02/01/20 02/02/20 17:38 18:24 05:00 WBC RBC Hgb Hct MCV RDW Plt Count Lymph % (Auto) [place] % (Auto) Lymph # Seg Neutrophils % Seg Neuts % (Manual) Lymphocytes % (Manual) Nucleated RBC % Seg Neutrophils # Man Lymphocytes # (Manual) Monocytes # (Manual) Eosinophils # (Manual) PT INR D-Dimer Heparin Anti-Xa Level ABG pH 7.317 L ABG pO2 ABG HCO3 28.2 H ABG O2 Saturation ABG Base Excess ABG Hemoglobin 10.1 L Oxyhemoglobin 94.0 L Sodium Potassium Chloride Carbon Dioxide BUN Creatinine Glucose POC Glucose 158 H 233 H Calcium Magnesium Ferritin Direct Bilirubin AST ALT Alkaline Phosphatase Lactate Dehydrogenase Troponin T C-Reactive Protein NT-Pro-B Natriuret Pep Total Protein Albumin Crossmatch 02/02/20 02/02/20 02/02/20 05:44 05:44 05:44 WBC 16.0 H RBC 2.85 L Hgb 8.3 L Hct 26.3 L MCV RDW 18.6 H Plt Count Lymph % (Auto) [place] % (Auto) Lymph # Seg Neutrophils % Seg Neuts % (Manual) 91.0 H Lymphocytes % (Manual) 2.0 L Nucleated RBC % Seg Neutrophils # Man 14.6 H Lymphocytes # (Manual) 0.3 L Monocytes # (Manual) Eosinophils # (Manual) PT INR D-Dimer Heparin Anti-Xa Level 0.77 H ABG pH ABG pO2 ABG HCO3 ABG O2 Saturation ABG Base Excess ABG Hemoglobin Oxyhemoglobin Sodium Potassium Chloride 95.5 L Carbon Dioxide BUN 57 H Creatinine 3.0 H Glucose 144 H POC Glucose Calcium 8.1 L Magnesium Ferritin Direct Bilirubin 0.3 H AST 179 H ALT 106 H Alkaline Phosphatase 557 H Lactate Dehydrogenase Troponin T C-Reactive Protein NT-Pro-B Natriuret Pep Total Protein 6.1 L Albumin 2.3 L Crossmatch 02/02/20 02/02/20 02/02/20 11:17 11:33 12:24 WBC RBC Hgb Hct MCV RDW Plt Count Lymph % (Auto) [place] % (Auto) Lymph # Seg Neutrophils % Seg Neuts % (Manual) Lymphocytes % (Manual) Nucleated RBC % Seg Neutrophils # Man Lymphocytes # (Manual) Monocytes # (Manual) Eosinophils # (Manual) PT INR D-Dimer Heparin Anti-Xa Level ABG pH ABG pO2 ABG HCO3 ABG O2 Saturation ABG Base Excess ABG Hemoglobin Oxyhemoglobin Sodium Potassium Chloride Carbon Dioxide BUN Creatinine Glucose POC Glucose < 40 L < 40 L 224 H Calcium Magnesium Ferritin Direct Bilirubin AST ALT Alkaline Phosphatase Lactate Dehydrogenase Troponin T C-Reactive Protein NT-Pro-B Natriuret Pep Total Protein Albumin Crossmatch 02/02/20 02/02/20 02/03/20 12:33 17:42 00:25 WBC RBC Hgb Hct MCV RDW Plt Count Lymph % (Auto) [place] % (Auto) Lymph # Seg Neutrophils % Seg Neuts % (Manual) Lymphocytes % (Manual) Nucleated RBC % Seg Neutrophils # Man Lymphocytes # (Manual) Monocytes # (Manual) Eosinophils # (Manual) PT INR D-Dimer Heparin Anti-Xa Level ABG pH ABG pO2 ABG HCO3 ABG O2 Saturation ABG Base Excess ABG Hemoglobin Oxyhemoglobin Sodium Potassium Chloride Carbon Dioxide BUN Creatinine Glucose 296 H POC Glucose 228 H < 40 L Calcium Magnesium Ferritin Direct Bilirubin AST ALT Alkaline Phosphatase Lactate Dehydrogenase Troponin T C-Reactive Protein NT-Pro-B Natriuret Pep Total Protein Albumin Crossmatch 02/03/20 02/03/20 02/03/20 00:27 03:59 03:59 WBC 22.9 H RBC 2.80 L Hgb 8.3 L Hct 27.4 L MCV 98 H RDW 19.2 H Plt Count Lymph % (Auto) [place] % (Auto) Lymph # Seg Neutrophils % Seg Neuts % (Manual) 92.0 H Lymphocytes % (Manual) 4.0 L Nucleated RBC % Seg Neutrophils # Man 21.1 H Lymphocytes # (Manual) 0.9 L Monocytes # (Manual) Eosinophils # (Manual) PT INR D-Dimer Heparin Anti-Xa Level ABG pH ABG pO2 ABG HCO3 ABG O2 Saturation ABG Base Excess ABG Hemoglobin Oxyhemoglobin Sodium 134 L Potassium 3.5 L Chloride Carbon Dioxide 21 L BUN 40 H Creatinine 2.6 H Glucose 180 H POC Glucose 198 H Calcium Magnesium Ferritin Direct Bilirubin AST ALT Alkaline Phosphatase Lactate Dehydrogenase Troponin T C-Reactive Protein NT-Pro-B Natriuret Pep Total Protein Albumin Crossmatch 02/03/20 02/03/20 02/03/20 04:48 05:00 12:21 WBC RBC Hgb Hct MCV RDW Plt Count Lymph % (Auto) [place] % (Auto) Lymph # Seg Neutrophils % Seg Neuts % (Manual) Lymphocytes % (Manual) Nucleated RBC % Seg Neutrophils # Man Lymphocytes # (Manual) Monocytes # (Manual) Eosinophils # (Manual) PT INR D-Dimer Heparin Anti-Xa Level ABG pH 7.315 L ABG pO2 97.3 H ABG HCO3 28.5 H ABG O2 Saturation ABG Base Excess ABG Hemoglobin 8.3 L Oxyhemoglobin 94.8 L Sodium Potassium Chloride Carbon Dioxide BUN Creatinine Glucose POC Glucose 182 H 201 H Calcium Magnesium Ferritin Direct Bilirubin AST ALT Alkaline Phosphatase Lactate Dehydrogenase Troponin T C-Reactive Protein NT-Pro-B Natriuret Pep Total Protein Albumin Crossmatch 02/03/20 02/03/20 02/04/20 17:43 23:36 04:50 WBC RBC Hgb Hct MCV RDW Plt Count Lymph % (Auto) [place] % (Auto) Lymph # Seg Neutrophils % Seg Neuts % (Manual) Lymphocytes % (Manual) Nucleated RBC % Seg Neutrophils # Man Lymphocytes # (Manual) Monocytes # (Manual) Eosinophils # (Manual) PT INR D-Dimer Heparin Anti-Xa Level ABG pH ABG pO2 ABG HCO3 ABG O2 Saturation ABG Base Excess ABG Hemoglobin Oxyhemoglobin Sodium 135 L Potassium Chloride 96.3 L Carbon Dioxide 21 L BUN 63 H Creatinine 4.1 H D Glucose 156 H POC Glucose 224 H 146 H Calcium 8.2 L Magnesium Ferritin Direct Bilirubin AST ALT Alkaline Phosphatase Lactate Dehydrogenase Troponin T C-Reactive Protein NT-Pro-B Natriuret Pep Total Protein Albumin Crossmatch 02/04/20 02/04/20 02/04/20 04:50 05:30 05:40 WBC 18.3 H RBC 2.31 L Hgb 6.9 L Hct 22.0 L MCV RDW 18.2 H Plt Count Lymph % (Auto) [place] % (Auto) Lymph # Seg Neutrophils % Seg Neuts % (Manual) 85.0 H Lymphocytes % (Manual) 4.0 L Nucleated RBC % 1.0 H Seg Neutrophils # Man 15.6 H Lymphocytes # (Manual) 0.7 L Monocytes # (Manual) Eosinophils # (Manual) PT INR D-Dimer Heparin Anti-Xa Level ABG pH 7.317 L ABG pO2 77.7 L ABG HCO3 27.4 H ABG O2 Saturation ABG Base Excess ABG Hemoglobin 8.0 L Oxyhemoglobin 94.5 L Sodium Potassium Chloride Carbon Dioxide BUN Creatinine Glucose POC Glucose 202 H Calcium Magnesium Ferritin Direct Bilirubin AST ALT Alkaline Phosphatase Lactate Dehydrogenase Troponin T C-Reactive Protein NT-Pro-B Natriuret Pep Total Protein Albumin Crossmatch 02/04/20 02/04/20 02/04/20 10:47 12:53 18:44 WBC RBC Hgb Hct MCV RDW Plt Count Lymph % (Auto) [place] % (Auto) Lymph # Seg Neutrophils % Seg Neuts % (Manual) Lymphocytes % (Manual) Nucleated RBC % Seg Neutrophils # Man Lymphocytes # (Manual) Monocytes # (Manual) Eosinophils # (Manual) PT INR D-Dimer Heparin Anti-Xa Level ABG pH ABG pO2 ABG HCO3 ABG O2 Saturation ABG Base Excess ABG Hemoglobin Oxyhemoglobin Sodium Potassium Chloride Carbon Dioxide BUN Creatinine Glucose POC Glucose 197 H 143 H Calcium Magnesium Ferritin Direct Bilirubin AST ALT Alkaline Phosphatase Lactate Dehydrogenase Troponin T C-Reactive Protein NT-Pro-B Natriuret Pep Total Protein Albumin Crossmatch See Detail 02/05/20 02/05/2002/04/20 00:43 04:14 04:35 WBC RBC Hgb Hct MCV RDW Plt Count Lymph % (Auto) [place] % (Auto) Lymph # Seg Neutrophils % Seg Neuts % (Manual) Lymphocytes % (Manual) Nucleated RBC % Seg Neutrophils # Man Lymphocytes # (Manual) Monocytes # (Manual) Eosinophils # (Manual) PT INR D-Dimer Heparin Anti-Xa Level ABG pH 7.327 L ABG pO2 75.5 L ABG HCO3 30.1 H ABG O2 Saturation ABG Base Excess 3.5 H ABG Hemoglobin 8.4 L Oxyhemoglobin 93.8 L Sodium 134 L Potassium 3.3 L Chloride 97.3 L Carbon Dioxide BUN 38 H Creatinine 2.2 H Glucose 187 H POC Glucose 163 H Calcium 8.1 L Magnesium Ferritin Direct Bilirubin AST ALT Alkaline Phosphatase Lactate Dehydrogenase Troponin T C-Reactive Protein NT-Pro-B Natriuret Pep Total Protein Albumin Crossmatch 02/05/20 02/05/20 02/05/20 04:35 05:16 12:17 WBC 24.4 H RBC 2.75 L Hgb 7.9 L Hct 25.2 L MCV RDW 18.1 H Plt Count Lymph % (Auto) [place] % (Auto) Lymph # Seg Neutrophils % Seg Neuts % (Manual) 96.0 H Lymphocytes % (Manual) 1.0 L Nucleated RBC % Seg Neutrophils # Man 23.4 H Lymphocytes # (Manual) 0.2 L Monocytes # (Manual) Eosinophils # (Manual) 0.5 H PT INR D-Dimer Heparin Anti-Xa Level ABG pH ABG pO2 ABG HCO3 ABG O2 Saturation ABG Base Excess ABG Hemoglobin Oxyhemoglobin Sodium Potassium Chloride Carbon Dioxide BUN Creatinine Glucose POC Glucose 196 H 174 H Calcium Magnesium Ferritin Direct Bilirubin AST ALT Alkaline Phosphatase Lactate Dehydrogenase Troponin T C-Reactive Protein NT-Pro-B Natriuret Pep Total Protein Albumin Crossmatch 02/05/20 02/05/20 02/05/20 13:55 13:55 13:55 WBC RBC Hgb Hct MCV RDW Plt Count Lymph % (Auto) [place] % (Auto) Lymph # Seg Neutrophils % Seg Neuts % (Manual) Lymphocytes % (Manual) Nucleated RBC % Seg Neutrophils # Man Lymphocytes # (Manual) Monocytes # (Manual) Eosinophils # (Manual) PT INR D-Dimer 2896.73 H Heparin Anti-Xa Level ABG pH ABG pO2 ABG HCO3 ABG O2 Saturation ABG Base Excess ABG Hemoglobin Oxyhemoglobin Sodium Potassium Chloride Carbon Dioxide BUN Creatinine Glucose POC Glucose Calcium Magnesium Ferritin > 2000.0 H Direct Bilirubin AST ALT Alkaline Phosphatase Lactate Dehydrogenase 311 H Troponin T C-Reactive Protein 17.30 H NT-Pro-B Natriuret Pep Total Protein Albumin Crossmatch 02/05/20 02/05/20 02/06/20 17:20 21:53 04:50 WBC RBC Hgb Hct MCV RDW Plt Count Lymph % (Auto) [place] % (Auto) Lymph # Seg Neutrophils % Seg Neuts % (Manual) Lymphocytes % (Manual) Nucleated RBC % Seg Neutrophils # Man Lymphocytes # (Manual) Monocytes # (Manual) Eosinophils # (Manual) PT INR D-Dimer Heparin Anti-Xa Level ABG pH 7.349 L ABG pO2 64.5 L ABG HCO3 28.4 H ABG O2 Saturation 94.0 L ABG Base Excess ABG Hemoglobin 8.4 L Oxyhemoglobin 91.8 L Sodium Potassium Chloride Carbon Dioxide BUN Creatinine Glucose POC Glucose 191 H 200 H Calcium Magnesium Ferritin Direct Bilirubin AST ALT Alkaline Phosphatase Lactate Dehydrogenase Troponin T C-Reactive Protein NT-Pro-B Natriuret Pep Total Protein Albumin Crossmatch 02/06/20 02/06/20 02/06/20 05:55 05:55 05:58 WBC 22.4 H RBC 3.02 L Hgb 8.5 L Hct 27.6 L MCV RDW 18.8 H Plt Count Lymph % (Auto) [place] % (Auto) Lymph # Seg Neutrophils % Seg Neuts % (Manual) Lymphocytes % (Manual) Nucleated RBC % Seg Neutrophils # Man Lymphocytes # (Manual) Monocytes # (Manual) Eosinophils # (Manual) PT INR D-Dimer Heparin Anti-Xa Level ABG pH ABG pO2 ABG HCO3 ABG O2 Saturation ABG Base Excess ABG Hemoglobin Oxyhemoglobin Sodium 136 L Potassium Chloride 96.4 L Carbon Dioxide BUN 66 H Creatinine 3.6 H D Glucose 139 H POC Glucose 110 H Calcium Magnesium Ferritin Direct Bilirubin AST ALT Alkaline Phosphatase Lactate Dehydrogenase Troponin T C-Reactive Protein NT-Pro-B Natriuret Pep Total Protein Albumin Crossmatch 02/06/20 02/06/20 02/06/20 12:19 17:52 23:47 WBC RBC Hgb Hct MCV RDW Plt Count Lymph % (Auto) [place] % (Auto) Lymph # Seg Neutrophils % Seg Neuts % (Manual) Lymphocytes % (Manual) Nucleated RBC % Seg Neutrophils # Man Lymphocytes # (Manual) Monocytes # (Manual) Eosinophils # (Manual) PT INR D-Dimer Heparin Anti-Xa Level ABG pH ABG pO2 ABG HCO3 ABG O2 Saturation ABG Base Excess ABG Hemoglobin Oxyhemoglobin Sodium Potassium Chloride Carbon Dioxide BUN Creatinine Glucose POC Glucose 185 H 185 H 173 H Calcium Magnesium Ferritin Direct Bilirubin AST ALT Alkaline Phosphatase Lactate Dehydrogenase Troponin T C-Reactive Protein NT-Pro-B Natriuret Pep Total Protein Albumin Crossmatch 02/07/20 02/07/20 02/07/20 05:04 11:46 11:52 WBC RBC Hgb Hct MCV RDW Plt Count Lymph % (Auto) [place] % (Auto) Lymph # Seg Neutrophils % Seg Neuts % (Manual) Lymphocytes % (Manual) Nucleated RBC % Seg Neutrophils # Man Lymphocytes # (Manual) Monocytes # (Manual) Eosinophils # (Manual) PT INR D-Dimer Heparin Anti-Xa Level ABG pH ABG pO2 ABG HCO3 ABG O2 Saturation ABG Base Excess ABG Hemoglobin Oxyhemoglobin Sodium Potassium Chloride Carbon Dioxide BUN Creatinine Glucose POC Glucose 145 H 240 H 251 H Calcium Magnesium Ferritin Direct Bilirubin AST ALT Alkaline Phosphatase Lactate Dehydrogenase Troponin T C-Reactive Protein NT-Pro-B Natriuret Pep Total Protein Albumin Crossmatch 02/07/20 02/08/20 02/08/20 18:18 00:22 05:43 WBC RBC Hgb Hct MCV RDW Plt Count Lymph % (Auto) [place] % (Auto) Lymph # Seg Neutrophils % Seg Neuts % (Manual) Lymphocytes % (Manual) Nucleated RBC % Seg Neutrophils # Man Lymphocytes # (Manual) Monocytes # (Manual) Eosinophils # (Manual) PT INR D-Dimer Heparin Anti-Xa Level ABG pH ABG pO2 ABG HCO3 ABG O2 Saturation ABG Base Excess ABG Hemoglobin Oxyhemoglobin Sodium Potassium Chloride Carbon Dioxide BUN Creatinine Glucose POC Glucose 225 H 274 H 307 H Calcium Magnesium Ferritin Direct Bilirubin AST ALT Alkaline Phosphatase Lactate Dehydrogenase Troponin T C-Reactive Protein NT-Pro-B Natriuret Pep Total Protein Albumin Crossmatch 02/08/20 02/08/20 02/08/20 09:40 12:09 17:42 WBC RBC Hgb Hct MCV RDW Plt Count Lymph % (Auto) [place] % (Auto) Lymph # Seg Neutrophils % Seg Neuts % (Manual) Lymphocytes % (Manual) Nucleated RBC % Seg Neutrophils # Man Lymphocytes # (Manual) Monocytes # (Manual) Eosinophils # (Manual) PT INR D-Dimer Heparin Anti-Xa Level ABG pH 7.167 L* ABG pO2 ABG HCO3 30.3 H ABG O2 Saturation 92.6 L ABG Base Excess ABG Hemoglobin 8.8 L Oxyhemoglobin 90.4 L Sodium Potassium Chloride Carbon Dioxide BUN Creatinine Glucose POC Glucose 327 H 269 H Calcium Magnesium Ferritin Direct Bilirubin AST ALT Alkaline Phosphatase Lactate Dehydrogenase Troponin T C-Reactive Protein NT-Pro-B Natriuret Pep Total Protein Albumin Crossmatch 02/08/20 02/09/20 02/09/20 20:45 01:16 04:48 WBC 22.9 H RBC 2.86 L Hgb 8.3 L Hct 26.2 L MCV RDW 18.0 H Plt Count 507 H Lymph % (Auto) [place] % (Auto) Lymph # Seg Neutrophils % Seg Neuts % (Manual) Lymphocytes % (Manual) Nucleated RBC % Seg Neutrophils # Man Lymphocytes # (Manual) Monocytes # (Manual) Eosinophils # (Manual) PT INR D-Dimer Heparin Anti-Xa Level ABG pH ABG pO2 79.1 L ABG HCO3 31.7 H ABG O2 Saturation ABG Base Excess 4.6 H ABG Hemoglobin Oxyhemoglobin 93.5 L Sodium Potassium Chloride Carbon Dioxide BUN Creatinine Glucose POC Glucose 150 H Calcium Magnesium Ferritin Direct Bilirubin AST ALT Alkaline Phosphatase Lactate Dehydrogenase Troponin T C-Reactive Protein NT-Pro-B Natriuret Pep Total Protein Albumin Crossmatch 02/09/20 02/09/20 02/09/20 04:48 05:14 13:11 WBC RBC Hgb Hct MCV RDW Plt Count Lymph % (Auto) [place] % (Auto) Lymph # Seg Neutrophils % Seg Neuts % (Manual) Lymphocytes % (Manual) Nucleated RBC % Seg Neutrophils # Man Lymphocytes # (Manual) Monocytes # (Manual) Eosinophils # (Manual) PT INR D-Dimer Heparin Anti-Xa Level ABG pH ABG pO2 ABG HCO3 ABG O2 Saturation ABG Base Excess ABG Hemoglobin Oxyhemoglobin Sodium Potassium Chloride 93.9 L Carbon Dioxide BUN 59 H Creatinine 2.5 H Glucose 309 H POC Glucose 356 H 184 H Calcium Magnesium Ferritin Direct Bilirubin AST ALT Alkaline Phosphatase Lactate Dehydrogenase Troponin T C-Reactive Protein NT-Pro-B Natriuret Pep Total Protein Albumin Crossmatch 02/09/20 02/10/20 02/10/20 16:53 00:20 05:38 WBC RBC Hgb Hct MCV RDW Plt Count Lymph % (Auto) [place] % (Auto) Lymph # Seg Neutrophils % Seg Neuts % (Manual) Lymphocytes % (Manual) Nucleated RBC % Seg Neutrophils # Man Lymphocytes # (Manual) Monocytes # (Manual) Eosinophils # (Manual) PT INR D-Dimer Heparin Anti-Xa Level ABG pH ABG pO2 ABG HCO3 ABG O2 Saturation ABG Base Excess ABG Hemoglobin Oxyhemoglobin Sodium Potassium Chloride Carbon Dioxide BUN Creatinine Glucose POC Glucose 357 H 298 H 300 H Calcium Magnesium Ferritin Direct Bilirubin AST ALT Alkaline Phosphatase Lactate Dehydrogenase Troponin T C-Reactive Protein NT-Pro-B Natriuret Pep Total Protein Albumin Crossmatch 02/10/20 02/10/20 02/11/20 12:38 18:17 00:08 WBC RBC Hgb Hct MCV RDW Plt Count Lymph % (Auto) [place] % (Auto) Lymph # Seg Neutrophils % Seg Neuts % (Manual) Lymphocytes % (Manual) Nucleated RBC % Seg Neutrophils # Man Lymphocytes # (Manual) Monocytes # (Manual) Eosinophils # (Manual) PT INR D-Dimer Heparin Anti-Xa Level ABG pH ABG pO2 ABG HCO3 ABG O2 Saturation ABG Base Excess ABG Hemoglobin Oxyhemoglobin Sodium Potassium Chloride Carbon Dioxide BUN Creatinine Glucose POC Glucose 350 H 271 H 164 H Calcium Magnesium Ferritin Direct Bilirubin AST ALT Alkaline Phosphatase Lactate Dehydrogenase Troponin T C-Reactive Protein NT-Pro-B Natriuret Pep Total Protein Albumin Crossmatch 02/11/20 02/11/20 02/11/20 05:34 12:18 17:27 WBC RBC Hgb Hct MCV RDW Plt Count Lymph % (Auto) [place] % (Auto) Lymph # Seg Neutrophils % Seg Neuts % (Manual) Lymphocytes % (Manual) Nucleated RBC % Seg Neutrophils # Man Lymphocytes # (Manual) Monocytes # (Manual) Eosinophils # (Manual) PT INR D-Dimer Heparin Anti-Xa Level ABG pH ABG pO2 ABG HCO3 ABG O2 Saturation ABG Base Excess ABG Hemoglobin Oxyhemoglobin Sodium Potassium Chloride Carbon Dioxide BUN Creatinine Glucose POC Glucose 274 H 246 H 174 H Calcium Magnesium Ferritin Direct Bilirubin AST ALT Alkaline Phosphatase Lactate Dehydrogenase Troponin T C-Reactive Protein NT-Pro-B Natriuret Pep Total Protein Albumin Crossmatch 02/12/20 02/12/20 02/12/20 00:19 05:00 05:00 WBC 31.3 H RBC 2.79 L Hgb 8.0 L Hct 25.4 L MCV RDW 18.4 H Plt Count 566 H Lymph % (Auto) [place] % (Auto) Lymph # Seg Neutrophils % Seg Neuts % (Manual) Lymphocytes % (Manual) Nucleated RBC % Seg Neutrophils # Man Lymphocytes # (Manual) Monocytes # (Manual) Eosinophils # (Manual) PT INR D-Dimer Heparin Anti-Xa Level ABG pH ABG pO2 ABG HCO3 ABG O2 Saturation ABG Base Excess ABG Hemoglobin Oxyhemoglobin Sodium 136 L Potassium Chloride 95.6 L Carbon Dioxide BUN 102 H Creatinine 3.0 H Glucose 170 H POC Glucose 227 H Calcium Magnesium Ferritin Direct Bilirubin AST ALT Alkaline Phosphatase Lactate Dehydrogenase Troponin T C-Reactive Protein NT-Pro-B Natriuret Pep Total Protein Albumin Crossmatch 02/12/20 05:25 WBC RBC Hgb Hct MCV RDW Plt Count Lymph % (Auto) [place] % (Auto) Lymph # Seg Neutrophils % Seg Neuts % (Manual) Lymphocytes % (Manual) Nucleated RBC % Seg Neutrophils # Man Lymphocytes # (Manual) Monocytes # (Manual) Eosinophils # (Manual) PT INR D-Dimer Heparin Anti-Xa Level ABG pH ABG pO2 ABG HCO3 ABG O2 Saturation ABG Base Excess ABG Hemoglobin Oxyhemoglobin Sodium Potassium Chloride Carbon Dioxide BUN Creatinine Glucose POC Glucose 157 H Calcium Magnesium Ferritin Direct Bilirubin AST ALT Alkaline Phosphatase Lactate Dehydrogenase Troponin T C-Reactive Protein NT-Pro-B Natriuret Pep Total Protein Albumin Crossmatch Allied health notes reviewed: nursing
--- NOTE | 2020-02-12 13:05 | Consultation ---
History of Present Illness Consult date: 02/12/20 Chief complaint: Vent dependence - History of present illness History of present illness: 64-year-old female with a history of CHF, end-stage renal disease, COPD presented to the emergency room on 01/08 with shortness of breath. COVID testing was done and was positive. The patient decompensated on 01/21/2020 at which time she suffered a CODE BLUE and was intubated. She has been on the ventilator since and had and has been unable to be weaned. Repeat recent COVID testing on 02/08/2020 was negative. The patient is awaiting LTAC placement. Surgery is consulted for evaluation of patient for tracheostomy and PEG tube. Past History Past Medical History: dialysis, heart failure, hypertension, hyperlipidemia Past Surgical History: Other (CABG) Social history: no significant social history Family history: hypertension Medications and Allergies Allergies Allergy/AdvReac Type Severity Reaction Status Date / Time cheese Allergy Mild Itching Verified 12/20/19 10:19 iodine Allergy Mild Anaphylaxis Verified 12/20/19 10:16 clonidine Allergy Anaphylaxis Verified 12/19/19 04:13 shellfish derived AdvReac Angioedema Verified 12/19/19 04:13 Home Medications Medication Instructions Recorded Confirmed Last Taken Type Atorvastatin [Lipitor] 40 mg PO DAILY 11/06/19 01/13/20 01/02/20 10:00 History Acetaminophen [Acetaminophen 8 650 mg PO Q8H PRN #30 tablet.er 11/21/19 01/13/20 01/03/20 22:00 Rx Hour] Cyclobenzaprine HCl [Flexeril 5 MG 5 mg PO QHS PRN #20 tab 11/21/19 01/13/20 01/01/20 22:00 Rx TAB] HYDROcodone/APAP 5-325 [[place] 1 each PO Q6HR PRN #18 tablet 12/13/19 01/13/20 01/01/20 22:00 Rx 5-325 mg TAB] amLODIPine 10 mg PO DAILY 90 Days #90 tab 12/18/19 01/13/20 01/01/20 10:00 Rx Ibuprofen 800 mg PO TID 12/19/19 01/13/20 01/02/20 22:00 History Magnesium Oxide [Mag-Ox] 400 mg PO QDAY 12/19/19 01/13/20 01/03/20 10:00 History diphenhydrAMINE [Benadryl CAP] 25 mg PO Q8HR PRN 12/19/19 01/13/20 01/03/20 21:00 History labetaloL [Labetalol 100mg TAB] 100 mg PO Q8H #90 tablet 12/21/19 01/13/20 01/02/20 10:00 Rx traMADoL [Ultram 50 MG tab] 50 mg PO Q6HR PRN #20 tablet 12/29/19 01/13/20 12/31/19 10:00 Rx DULoxetine [Cymbalta] 30 mg PO QDAY #30 capsule 01/04/20 01/13/20 Unknown Rx Valsartan [Diovan] 80 mg PO DAILY #30 tablet 01/04/20 01/13/20 Unknown Rx Active Meds: Active Medications Acetaminophen (Tylenol) 650 mg PO Q4H PRN PRN Reason: Pain MILD(1-3)/Fever >100.5/MEANS Last Admin: 02/05/20 05:58 Dose: 650 mg Documented by: Lipase/Protease/Amylase (Pancreestrella Dr 10,500 Unit) 1 each FEEDTUBE PRN PRN PRN Reason: For Clogged Feeding Tube Last Admin: 02/07/20 13:18 Dose: 1 each Documented by: Atorvastatin Calcium (Lipitor) 40 mg PO QHS [facility] Last Admin: 02/11/20 22:02 Dose: 40 mg Documented by: Dextrose (D50w (25gm) Syringe) 50 ml IV Q30MIN PRN PRN Reason: BLOOD GLUCOSE < 70 Last Admin: 02/02/20 11:33 Dose: 50 ml Documented by: Dextrose (D50w (25gm) Syringe) 25 ml IV Q4H PRN PRN Reason: BG < 80 MG/DL Last Admin: 01/24/20 13:41 Dose: 25 ml Documented by: Docusate Sodium (Colace) 100 mg PO BID [facility] Last Admin: 02/12/20 10:49 Dose: 100 mg Documented by: Epoetin Helio (Procrit) 20,000 unit SUB-Q SILVERIO [facility] Last Admin: 02/04/20 13:00 Dose: 20,000 unit Documented by: Famotidine (Pepcid) 20 mg PO DAILY [facility] Last Admin: 02/12/20 10:47 Dose: 20 mg Documented by: Heparin Sodium (Porcine) (Heparin) 5,000 unit SUB-Q Q12HR [facility] Last Admin: 02/12/20 10:47 Dose: 5,000 unit Documented by: Norepinephrine (Levophed Drip 4 Mg/Ns 250 Ml) 4 mg in 250 mls @ 7.5 mls/hr IV TITR [facility]; Protocol Last Titration: 02/11/20 15:00 Dose: 0 mcg/min, 0 mls/hr Documented by: Sodium Chloride (Nacl 0.9%) 100 mls @ 999 mls/hr IV SILVERIO PRN PRN Reason: Hypotension Insulin Glargine (Lantus) 15 units SUB-Q DAILY [facility] Last Admin: 02/12/20 10:47 Dose: 15 units Documented by: Insulin Human Lispro (Humalog) 0 unit SUB-Q Q6HR [facility]; Protocol Last Admin: 02/12/20 05:37 Dose: 2 unit Documented by: Lorazepam (Ativan) 2 mg IV Q10MIN PRN PRN Reason: Agitation Methylprednisolone Sodium Succinate (Solu-Medrol) 40 mg IV Q8HR [facility] Last Admin: 02/12/20 07:20 Dose: 40 mg Documented by: Ondansetron HCl (Zofran) 4 mg IV Q8H PRN PRN Reason: Nausea And Vomiting Last Admin: 01/20/20 10:19 Dose: 4 mg Documented by: Simple Syrup (Simple Syrup) 15 ml FEEDTUBE PRN PRN PRN Reason: Hypoglycemia Simple Syrup (Simple Syrup) 30 ml FEEDTUBE PRN PRN PRN Reason: Hypoglycemia Sodium Bicarbonate (Sodium Bicarbonate) 325 mg FEEDTUBE PRN PRN PRN Reason: For Clogged Feeding Tube Sodium Chloride (Sodium Chloride Flush Syringe 10 Ml) 10 ml IV BID [facility] Last Admin: 02/12/20 10:48 Dose: 10 ml Documented by: Sodium Chloride (Sodium Chloride Flush Syringe 10 Ml) 10 ml IV PRN PRN PRN Reason: LINE FLUSH Review of Systems ROS unobtainable: due to endotracheal tube, due to mental status Exam Vital Signs Temp Pulse Resp BP Pulse Ox 99.0 F 75 20 184/71 97 01/09/20 12:19 01/09/20 12:19 01/09/20 12:19 01/09/20 12:19 03/25/20 12:19 Narrative exam: Gen.: Intubated on ventilator. No sedation. Patient does not respond to verbal or painful stimuli. She does not follow commands. ENT: ET tube and OG tube in place. Tube feeds are running. CV: S1, S2 present. Sternal scar Respiratory: No audible wheezes Abdomen: Soft, nondistended, nontender. No rebound, rigidity, guarding. Well- healed lower midline surgical scar and small epigastric scar Extremities: Generalized edema Results - Labs 02/12/20 05:00 02/12/20 05:00 Abnormal lab results 02/11/20 02/12/20 02/12/20 Range/Units 17:27 00:19 05:00 WBC 31.3 H (4.5-11.0) K/mm3 RBC 2.79 L (3.65-5.03) M/mm3 Hgb 8.0 L (10.1-14.3) gm/dl Hct 25.4 L (30.3-42.9) % RDW 18.4 H (13.2-15.2) % Plt Count 566 H (140-440) K/mm3 Sodium (137-145) mmol/L Chloride (98-107) mmol/L BUN (7-17) mg/dL Creatinine (0.7-1.2) mg/dL Glucose (65-100) mg/dL POC Glucose 174 H 227 H (70-105) 02/12/20 02/12/20 02/12/20 Range/Units 05:00 05:25 12:21 WBC (4.5-11.0) K/mm3 RBC (3.65-5.03) M/mm3 Hgb (10.1-14.3) gm/dl Hct (30.3-42.9) % RDW (13.2-15.2) % Plt Count (140-440) K/mm3 Sodium 136 L (137-145) mmol/L Chloride 95.6 L (98-107) mmol/L BUN 102 H (7-17) mg/dL Creatinine 3.0 H (0.7-1.2) mg/dL Glucose 170 H (65-100) mg/dL POC Glucose 157 H 230 H (70-105) Diabetes panel 02/12/20 Range/Units 05:00 Sodium 136 L (137-145) mmol/L Potassium 4.3 (3.6-5.0) mmol/L Chloride 95.6 L (98-107) mmol/L Carbon Dioxide 28 (22-30) mmol/L BUN 102 H (7-17) mg/dL Creatinine 3.0 H (0.7-1.2) mg/dL Glucose 170 H (65-100) mg/dL Calcium 8.7 (8.4-10.2) mg/dL Calcium panel 02/12/20 Range/Units 05:00 Calcium 8.7 (8.4-10.2) mg/dL Pituitary panel 02/12/20 Range/Units 05:00 Sodium 136 L (137-145) mmol/L Potassium 4.3 (3.6-5.0) mmol/L Chloride 95.6 L (98-107) mmol/L Carbon Dioxide 28 (22-30) mmol/L BUN 102 H (7-17) mg/dL Creatinine 3.0 H (0.7-1.2) mg/dL Glucose 170 H (65-100) mg/dL Calcium 8.7 (8.4-10.2) mg/dL Adrenal panel 02/12/20 Range/Units 05:00 Sodium 136 L (137-145) mmol/L Potassium 4.3 (3.6-5.0) mmol/L Chloride 95.6 L (98-107) mmol/L Carbon Dioxide 28 (22-30) mmol/L BUN 102 H (7-17) mg/dL Creatinine 3.0 H (0.7-1.2) mg/dL Glucose 170 H (65-100) mg/dL Calcium 8.7 (8.4-10.2) mg/dL - Imaging Chest x-ray: report reviewed, image reviewed Assessment and Plan 64-year-old female with ventilator dependent respiratory failure Plan: 1. Continue vent management per ICU team 2. I had a long discussion with the patient's Davis Ramsey. We discussed the indication for tracheostomy and PEG tube placement. We also discussed the alternatives to proceeding with tracheostomy and PEG tube. Per Mr. Ramsey, the patient was self-sufficient with her ADLs prior to this hospitalization. He states in their past discussions with each other, she did not want to remain on mechanical ventilation for prolonged period of time. He is unsure about proceeding with tracheostomy and PEG tube and would like to discuss this with the rest of his family. He states he will have a decision tomorrow. I will follow-up with Mr. Ramsey tomorrow. Discussed with Dr. Aiken Discussed with SERGIO Gomez Thank you, please call with questions or concerns
--- NOTE | 2020-02-12 14:55 | Progress Note ---
Assessment and Plan Cultures: 01/10/2020 blood culture: No growth 01/21/2020 sputum culture: No growth 01/25/2020 blood culture: No growth 02/04/2020 blood culture: no growth A/P: 64/F with #Sepsis with shock: likely due to severe COVID pneumonia. Completed empiric Cefepime x 5 days. Now back on antibiotics. #Severe COVID pneumonia: very elevated inflammatory markers. S/p ivermectin x 1 on 01/21/2020 (off label use). S/p hydroxychloroquine with zinc x 5 days. Markers remain elevated. #Acute hypoxic resp failure: intubated, on the vent. Vent requirements not too high #ESRD on HD: nephrology following. #Thrombocytopenia: resolved #Elevated LFTs: etiology unclear. Bilirubin is normal. Alk phos and transaminases elevated. RUQ US showed no gall bladder, CBD appeared normal. Recs: continue steroids for 7 days followed by taper (started 02/07/2020) Possible trach + LTACH placement. has repeat negative testing in house. Lloyd Loza MD [facility] ([facility] M: [phone] O: [phone] F: [phone] Subjective Date of service: 02/12/20 Principal diagnosis: Pneumonia Interval history: Afebrile, remains on vent. White count higher today than previous. Objective - Exam Narrative Exam: Physical Exam (reviewed in chart due to PPE conservation) Constitutional: intubated, on the vent Head, Ears, Nose: normocephalic, atraumatic Eyes: limited due to PPE conservation strategy Neck: intubated Oral: intubated Cardiovascular: limited due to PPE conservation strategy Respiratory: limited due to PPE conservation strategy GI: limited due to PPE conservation strategy Musculoskeletal: limited due to PPE conservation strategy Skin: limited due to PPE conservation strategy Hem/Lymphatic: limited due to PPE conservation strategy Psych: no agitation Neurological: intubated, on the vent, exam limited - Constitutional Vitals: Vital Signs Temp Pulse Resp BP Pulse Ox 98.6 F 98 H 22 148/66 100 02/12/20 14:20 02/12/20 14:20 02/12/20 14:20 02/12/20 14:20 02/12/20 14:20 Temperature -Last 24 Hours Temperature 98.6 F Temperature 98.6 F Temperature 98.3 F Temperature 97.5 F Temperature 98.6 F Temperature 98.9 F Temperature 98.1 F - Labs CBC & Chem 7: 02/12/20 05:00 02/12/20 05:00 Labs: Abnormal lab results 02/11/20 02/12/20 02/12/20 Range/Units 17:27 00:19 05:00 WBC 31.3 H (4.5-11.0) K/mm3 RBC 2.79 L (3.65-5.03) M/mm3 Hgb 8.0 L (10.1-14.3) gm/dl Hct 25.4 L (30.3-42.9) % RDW 18.4 H (13.2-15.2) % Plt Count 566 H (140-440) K/mm3 Sodium (137-145) mmol/L Chloride (98-107) mmol/L BUN (7-17) mg/dL Creatinine (0.7-1.2) mg/dL Glucose (65-100) mg/dL POC Glucose 174 H 227 H (70-105) 02/12/20 02/12/20 02/12/20 Range/Units 05:00 05:25 12:21 WBC (4.5-11.0) K/mm3 RBC (3.65-5.03) M/mm3 Hgb (10.1-14.3) gm/dl Hct (30.3-42.9) % RDW (13.2-15.2) % Plt Count (140-440) K/mm3 Sodium 136 L (137-145) mmol/L Chloride 95.6 L (98-107) mmol/L BUN 102 H (7-17) mg/dL Creatinine 3.0 H (0.7-1.2) mg/dL Glucose 170 H (65-100) mg/dL POC Glucose 157 H 230 H (70-105)
--- NOTE | 2020-02-12 18:41 | Progress Note ---
Assessment and Plan - Patient Problems (1) End stage renal disease on dialysis Current Visit: No Status: Chronic Plan to address problem: Worsening azotemia. Will dialyze again today for solute clearance. hemodialysis again tomorrow as scheduled. (2) Acute respiratory failure with hypoxia Current Visit: No Status: Acute Plan to address problem: ventilator management by pulmonary/electronics detail draftsperson (3) Pneumonia due to COVID-19 virus Current Visit: Yes Status: Acute Plan to address problem: continue treatment per infectious disease. (4) Volume overload Current Visit: Yes Status: Acute Qualifiers: Plan to address problem: end-stage renal disease with fluid overload. Improved with fluid removal on dialysis. (5) Anemia in CKD (chronic kidney disease) Current Visit: Yes Status: Acute Qualifiers: Chronic kidney disease stage: on chronic dialysis Qualified Code(s): N18.6 - End stage renal disease; D63.1 - Anemia in chronic kidney disease; Z99.2 - Dependence on renal dialysis Plan to address problem: give erythropoietin on dialysis (6) T2DM (type 2 diabetes mellitus) Current Visit: Yes Status: Acute Qualifiers: Diabetes mellitus penitentiary insulin use: unspecified manager terminal insulin use status Plan to address problem: blood sugar management by primary attending. (7) Hypertensive chronic kidney disease with stage 5 chronic kidney disease or end stage renal disease Current Visit: No Status: Chronic Plan to address problem: patient is on vasopressor. Follow blood pressure current medications Subjective Date of service: 02/12/20 Principal diagnosis: Pneumonia Interval history: Patient is intubated on the ventilator in intensive care unit. Not on vasopressor. Patient was seen and examined today remains sedated on the ventilator Objective - Exam Narrative Exam: elderly -[place] female lying in bed intubated on the ventilator HEENT: Normocephalic atraumatic, pupils equal round reactive to light ETT intact Neck: Supple, no venous distention, no goiter CVS: S1S2 RRR No murmur, rub or gallop Lungs: Coarse Bs, no use of accessory muscles of respiration Abdomen: Full, soft, nontender, no organomegaly no bruit, bowel sounds are present Extremities: No edema, no cyanosis or clubbing Urinary: Deferred Musculo-skeletal: No joint deformities or swelling Neuro: Awake, alert, no focal deficits - Vital Signs Vital signs: Vital Signs - 12hr 02/12/20 02/12/2020 06:45 07:00 07:15 Temperature Pulse Rate 88 87 86 Respiratory 27 H 27 H 28 H Rate Blood Pressure 134/56 121/55 119/56 O2 Sat by Pulse 100 99 99 Oximetry O2 Sat by Pulse Oximetry [ Posterior Bilateral Throughout] 02/12/20 02/12/20 02/12/20 07:30 07:45 07:57 Temperature Pulse Rate 97 H 94 H 96 H Respiratory 20 22 Rate Blood Pressure 142/68 134/62 141/69 O2 Sat by Pulse 100 100 100 Oximetry O2 Sat by Pulse Oximetry [ Posterior Bilateral Throughout] 02/12/20 02/12/20 02/12/20 08:00 08:15 08:30 Temperature 98.6 F Pulse Rate 94 H 94 H 92 H Respiratory 22 22 25 H Rate Blood Pressure 141/69 137/68 140/63 O2 Sat by Pulse 100 100 100 Oximetry O2 Sat by Pulse Oximetry [ Posterior Bilateral Throughout] 02/12/20 02/12/20 02/12/20 08:46 09:00 09:16 Temperature Pulse Rate 95 H 95 H 95 H Respiratory 24 20 13 Rate Blood Pressure 146/65 141/66 146/70 O2 Sat by Pulse 100 100 100 Oximetry O2 Sat by Pulse Oximetry [ Posterior Bilateral Throughout] 02/12/20 02/12/20 02/12/20 09:30 09:46 10:00 Temperature Pulse Rate 96 H 96 H 97 H Respiratory 21 21 22 Rate Blood Pressure 145/71 150/68 143/67 O2 Sat by Pulse 100 100 100 Oximetry O2 Sat by Pulse Oximetry [ Posterior Bilateral Throughout] 02/12/20 02/12/20 02/12/20 10:16 10:30 10:46 Temperature Pulse Rate 97 H 99 H 100 H Respiratory 20 17 21 Rate Blood Pressure 148/68 146/65 149/66 O2 Sat by Pulse 100 99 99 Oximetry O2 Sat by Pulse Oximetry [ Posterior Bilateral Throughout] 02/12/20 02/12/20 02/12/20 11:00 11:16 11:30 Temperature Pulse Rate 101 H 95 H 101 H Respiratory 22 25 H 21 Rate Blood Pressure 154/70 137/63 155/70 O2 Sat by Pulse 98 100 99 Oximetry O2 Sat by Pulse Oximetry [ Posterior Bilateral Throughout] 02/12/20 02/12/20 02/12/20 11:46 11:51 12:00 Temperature 98.6 F Pulse Rate 102 H 101 H 101 H Respiratory 23 20 Rate Blood Pressure 155/70 155/70 149/65 O2 Sat by Pulse 99 99 98 Oximetry O2 Sat by Pulse Oximetry [ Posterior Bilateral Throughout] 02/12/20 02/12/20 02/12/20 12:16 12:30 12:45 Temperature Pulse Rate 102 H 101 H 101 H Respiratory 20 22 20 Rate Blood Pressure 145/67 146/64 142/64 O2 Sat by Pulse 99 100 99 Oximetry O2 Sat by Pulse Oximetry [ Posterior Bilateral Throughout] 02/12/20 02/12/20 02/12/20 13:00 13:16 13:30 Temperature Pulse Rate 100 H 97 H 97 H Respiratory 22 26 H 16 Rate Blood Pressure 140/64 130/56 122/64 O2 Sat by Pulse 99 100 100 Oximetry O2 Sat by Pulse Oximetry [ Posterior Bilateral Throughout] 02/12/20 02/12/20 02/12/20 13:46 14:00 14:15 Temperature Pulse Rate 101 H 100 H 98 H Respiratory 23 19 23 Rate Blood Pressure 153/63 142/67 139/66 O2 Sat by Pulse 100 100 100 Oximetry O2 Sat by Pulse Oximetry [ Posterior Bilateral Throughout] 02/12/20 02/12/20 02/12/20 14:20 14:30 14:37 Temperature 98.6 F Pulse Rate 98 H 99 H 100 H Respiratory 22 20 Rate Blood Pressure 148/66 148/66 142/71 O2 Sat by Pulse 100 Oximetry O2 Sat by Pulse 100 Oximetry [ Posterior Bilateral Throughout] 02/12/20 02/12/20 02/12/20 14:45 15:00 15:15 Temperature Pulse Rate 98 H 99 H 100 H Respiratory 43 H 19 28 H Rate Blood Pressure 149/72 144/69 143/71 O2 Sat by Pulse 99 99 100 Oximetry O2 Sat by Pulse Oximetry [ Posterior Bilateral Throughout] 02/12/20 02/12/20 02/12/20 15:30 15:45 16:00 Temperature 98.2 F Pulse Rate 98 H 100 H 100 H Respiratory 18 30 H 16 Rate Blood Pressure 129/69 142/74 144/69 O2 Sat by Pulse 99 99 100 Oximetry O2 Sat by Pulse Oximetry [ Posterior Bilateral Throughout] 02/12/20 02/12/20 02/12/20 16:10 16:15 16:16 Temperature Pulse Rate 98 H 97 H 97 H Respiratory 18 Rate Blood Pressure 144/69 127/66 127/66 O2 Sat by Pulse 100 100 Oximetry O2 Sat by Pulse Oximetry [ Posterior Bilateral Throughout] 02/12/20 02/12/20 02/12/20 16:30 16:45 17:00 Temperature Pulse Rate 98 H 98 H 95 H Respiratory 21 16 16 Rate Blood Pressure 130/67 133/67 124/68 O2 Sat by Pulse 100 100 100 Oximetry O2 Sat by Pulse Oximetry [ Posterior Bilateral Throughout] 02/12/20 02/12/20 02/12/20 17:15 17:38 18:05 Temperature 97.9 F Pulse Rate 95 H 96 H 98 H Respiratory 21 Rate Blood Pressure 141/73 139/74 142/69 O2 Sat by Pulse Oximetry O2 Sat by Pulse 100 Oximetry [ Posterior Bilateral Throughout] - Lab 02/12/20 05:00 02/12/20 05:00 Most recent lab results ABG pH 7.351 pH Units (7.350-7.450) 02/08/20 20:45 ABG pCO2 58.7 mm Hg 02/08/20 20:45 ABG pO2 79.1 mm Hg (80.0-90.0) L 02/08/20 20:45 ABG HCO3 31.7 mmol/L (20.0-26.0) H 02/08/20 20:45 ABG O2 Saturation 95.6 % (95.0-99.0) 02/08/20 20:45 Calcium 8.7 mg/dL (8.4-10.2) 02/12/20 05:00 Phosphorus 3.30 mg/dL (2.5-4.5) 01/12/20 16:01 Magnesium 2.00 mg/dL (1.7-2.3) 01/13/20 06:11 Medications & Allergies - Medications Allergies/Adverse Reactions: Allergies cheese Allergy (Mild, Verified 12/20/19 10:19) Itching iodine Allergy (Mild, Verified 12/20/19 10:16) Anaphylaxis clonidine Allergy (Verified 12/19/19 04:13) Anaphylaxis shellfish derived Adverse Reaction (Verified 12/19/19 04:13) Angioedema Home Medications: Home Medications Medication Instructions Recorded Confirmed Last Taken Type Atorvastatin [Lipitor] 40 mg PO DAILY 11/06/19 01/13/20 01/02/20 10:00 History Acetaminophen [Acetaminophen 8 650 mg PO Q8H PRN #30 tablet.er 11/21/19 01/13/20 01/03/20 22:00 Rx Hour] Cyclobenzaprine HCl [Flexeril 5 MG 5 mg PO QHS PRN #20 tab 11/21/19 01/13/20 01/01/20 22:00 Rx TAB] HYDROcodone/APAP 5-325 [[place] 1 each PO Q6HR PRN #18 tablet 12/13/19 01/13/20 01/01/20 22:00 Rx 5-325 mg TAB] amLODIPine 10 mg PO DAILY 90 Days #90 tab 12/18/19 01/13/20 01/01/20 10:00 Rx Ibuprofen 800 mg PO TID 12/19/19 01/13/20 01/02/20 22:00 History Magnesium Oxide [Mag-Ox] 400 mg PO QDAY 12/19/19 01/13/20 01/03/20 10:00 History diphenhydrAMINE [Benadryl CAP] 25 mg PO Q8HR PRN 12/19/19 01/13/20 01/03/20 21:00 History labetaloL [Labetalol 100mg TAB] 100 mg PO Q8H #90 tablet 12/21/19 01/13/20 01/02/20 10:00 Rx traMADoL [Ultram 50 MG tab] 50 mg PO Q6HR PRN #20 tablet 12/29/19 01/13/20 12/31/19 10:00 Rx DULoxetine [Cymbalta] 30 mg PO QDAY #30 capsule 01/04/20 01/13/20 Unknown Rx Valsartan [Diovan] 80 mg PO DAILY #30 tablet 01/04/20 01/13/20 Unknown Rx Active Medications: Generic Name Dose Route Start Last Admin Trade Name Freq PRN Reason Stop Dose Admin Acetaminophen 650 mg 01/09/20 16:33 02/05/20 05:58 Tylenol PO 650 mg Q4H PRN Administration Pain MILD(1-3)/Fever >100.5/MEANS Lipase/Protease/Amylase 1 each 01/23/20 14:28 02/07/20 13:18 Pancreaze 10,500 Unit FEEDTUBE 1 each PRN PRN Administration For Clogged Feeding Tube Atorvastatin Calcium 40 mg 01/09/20 22:00 02/11/20 22:02 Lipitor PO 40 mg QHS [facility] Administration Dextrose 50 ml 01/23/20 07:26 02/02/20 11:33 D50w (25gm) Syringe IV 50 ml Q30MIN PRN Administration BLOOD GLUCOSE < 70 Dextrose 25 ml 01/24/20 08:58 01/24/20 13:41 D50w (25gm) Syringe IV 25 ml Q4H PRN Administration BG < 80 MG/DL Docusate Sodium 100 mg 01/25/20 22:00 02/12/20 10:49 Colace PO 100 mg BID [facility] Administration Epoetin Helio 20,000 unit 02/04/20 12:00 02/04/20 13:00 Procrit SUB-Q 20,000 unit SILVERIO [facility] Administration Famotidine 20 mg 01/09/20 22:00 02/12/20 10:47 Pepcid PO 20 mg DAILY [facility] Administration Heparin Sodium (Porcine) 5,000 unit 02/07/20 10:00 02/12/20 10:47 Heparin SUB-Q 5,000 unit Q12HR [facility] Administration Norepinephrine 4 mg in 250 mls @ 7.5 mls/hr 01/21/20 18:00 02/11/20 15:00 Levophed Drip 4 Mg/Ns 250 Ml IV 0 mcg/min TITR [facility] 0 mls/hr Titration Protocol 2 MCG/MIN Sodium Chloride 100 mls @ 999 mls/hr 02/12/20 08:17 Nacl 0.9% IV SILVERIO PRN Hypotension Insulin Glargine 15 units 02/10/20 13:00 02/12/20 10:47 Lantus SUB-Q 15 units DAILY [facility] Administration Insulin Human Lispro 0 unit 02/07/20 12:00 02/12/20 05:37 Humalog SUB-Q 2 unit Q6HR [facility] Administration Protocol Lorazepam 2 mg 01/23/20 15:36 Ativan IV Q10MIN PRN Agitation Methylprednisolone Sodium Succinate 40 mg 02/07/20 14:00 02/12/20 07:20 Solu-Medrol IV 40 mg Q8HR [facility] Administration Ondansetron HCl 4 mg 01/09/20 16:33 01/20/20 10:19 Zofran IV 4 mg Q8H PRN Administration Nausea And Vomiting Simple Syrup 15 ml 01/23/20 14:28 Simple Syrup FEEDTUBE PRN PRN Hypoglycemia Simple Syrup 30 ml 01/23/20 14:28 Simple Syrup FEEDTUBE PRN PRN Hypoglycemia Sodium Bicarbonate 325 mg 01/23/20 14:28 Sodium Bicarbonate FEEDTUBE PRN PRN For Clogged Feeding Tube Sodium Chloride 10 ml 01/09/20 22:00 02/12/20 10:48 Sodium Chloride Flush Syringe 10 Ml IV 10 ml BID [facility] Administration Sodium Chloride 10 ml 01/09/20 16:33 Sodium Chloride Flush Syringe 10 Ml IV PRN PRN LINE FLUSH
[2020-02-13] MEDS: INSULIN LISPRO 100 UNIT/ML SUB-Q SCH ×5 (00:43→23:57)
[2020-02-13] MEDS: methylPREDNISolone Sod Succinate 40 MG/1 ML INJ IV SCH ×3 (05:44→21:57)
--- NOTE | 2020-02-13 09:12 | Progress Note ---
Assessment and Plan 64 y/o female with COVID positive, viral pneumonia with some pulmonary vascular congestion superimposed. 1. Currently on a Rate. Attempt PSV this am. HD likely again tomorrow. Appreciate surgery seeing and speaking with family member. Unfortunately, now they are considering palliative care vs hospice. He () is going to speak with the rest of family. Hopeful they will continue to give patient a chance but must respect their wishes. [facility] is willing to take patient. COVID repeat is negative with no fevers. 2. HD per renal. 3. held BP meds yesterday anticipating fluid removal, can restart or give PRN meds throughout day. 4. Continue isolation for now. 5. Once trached and pegged, as long as no other changes clinically, would be stable for transfer to [facility] for further weaning. Await decision in r [place] to further goals of care. CCT 31 minutes. Subjective Date of service: 02/13/20 Principal diagnosis: Pneumonia Interval history: No acute events. Had HD yesterday but no fluid removal. No repeat labs done this am. Mental state is unchanged. Surgery came by to evaluate patient and spoke with over the phone. Objective Vital Signs - 12hr 02/12/20 02/12/20 02/12/20 22:00 22:43 23:00 Temperature Pulse Rate 96 H 95 H 95 H Pulse Rate [ From Monitor] Respiratory 25 H 21 22 Rate Blood Pressure 137/68 141/71 153/70 O2 Sat by Pulse 100 100 100 Oximetry 02/12/20 02/12/20 02/13/20 23:08 23:41 00:00 Temperature 98.2 F Pulse Rate 95 H 95 H Pulse Rate [ 93 H From Monitor] Respiratory 22 25 H Rate Blood Pressure 149/72 155/74 O2 Sat by Pulse 100 98 Oximetry 02/13/20 02/13/20 02/13/20 01:00 02:00 03:00 Temperature Pulse Rate 96 H 90 94 H Pulse Rate [ From Monitor] Respiratory 18 26 H 22 Rate Blood Pressure 156/72 147/68 143/70 O2 Sat by Pulse 98 94 97 Oximetry 02/13/20 02/13/20 02/13/20 04:00 04:11 05:00 Temperature 98.7 F Pulse Rate 92 H 94 H 95 H Pulse Rate [ 91 H From Monitor] Respiratory 24 18 Rate Blood Pressure 141/64 141/64 153/64 O2 Sat by Pulse 83 L 94 95 Oximetry 02/13/20 02/13/20 02/13/20 06:00 08:00 08:21 Temperature 97.5 F L Pulse Rate 93 H 87 Pulse Rate [ From Monitor] Respiratory 20 Rate Blood Pressure 178/79 155/72 O2 Sat by Pulse 100 100 Oximetry Constitutional: other (orally intubated, not sedated currently on vent. on AC 450 50) Eyes: non-icteric ENT: oropharynx moist Neck: supple Effort: normal Ascultation: Bilateral: rales Cardiovascular: regular rate and rhythm (no mrg) Gastrointestinal: normoactive bowel sounds, soft, non-tender, non-distended Integumentary: normal Extremities: no cyanosis, no edema, pink and warm Neurologic: unable to assess Psychiatric: mood appropriate, affect normal CBC and BMP: 02/12/20 05:00 02/12/20 05:00 ABG, PT/INR, D-dimer: ABG ABG pH 7.351 pH Units (7.350-7.450) 02/08/20 20:45 ABG pCO2 58.7 mm Hg 02/08/20 20:45 ABG pO2 79.1 mm Hg (80.0-90.0) L 02/08/20 20:45 ABG O2 Saturation 95.6 % (95.0-99.0) 02/08/20 20:45 PT/INR, D-dimer PT 15.6 Sec. (12.2-14.9) H 01/09/20 12:55 INR 1.22 (0.87-1.13) H 01/09/20 12:55 D-Dimer 2896.73 ng/mlDDU (0-234) H 02/05/20 13:55 Abnormal lab findings: Abnormal Labs 01/09/20 01/09/20 01/09/20 12:55 12:55 12:55 WBC 4.4 L RBC 3.44 L Hgb Hct MCV RDW 17.0 H Plt Count Lymph % (Auto) 6.8 L [place] % (Auto) 13.6 H Lymph # 0.3 L Seg Neutrophils % 79.0 H Seg Neuts % (Manual) Lymphocytes % (Manual) Nucleated RBC % Seg Neutrophils # Man Lymphocytes # (Manual) Monocytes # (Manual) Eosinophils # (Manual) PT 15.6 H INR 1.22 H D-Dimer Heparin Anti-Xa Level ABG pH ABG pO2 ABG HCO3 ABG O2 Saturation ABG Base Excess ABG Hemoglobin Oxyhemoglobin Sodium 130 L Potassium Chloride 88.9 L Carbon Dioxide 20 L BUN 41 H Creatinine 7.6 H Glucose 115 H POC Glucose Calcium Magnesium Ferritin Direct Bilirubin AST ALT Alkaline Phosphatase 153 H Lactate Dehydrogenase Troponin T 0.382 H* C-Reactive Protein NT-Pro-B Natriuret Pep 10902 H Total Protein Albumin 3.2 L Crossmatch 01/09/20 01/10/20 01/10/20 20:14 00:16 06:54 WBC 3.3 L RBC 3.00 L Hgb 9.2 L Hct 27.8 L MCV RDW 17.2 H Plt Count Lymph % (Auto) 8.9 L [place] % (Auto) 11.5 H Lymph # 0.3 L Seg Neutrophils % 79.1 H Seg Neuts % (Manual) Lymphocytes % (Manual) Nucleated RBC % Seg Neutrophils # Man Lymphocytes # (Manual) Monocytes # (Manual) Eosinophils # (Manual) PT INR D-Dimer Heparin Anti-Xa Level ABG pH ABG pO2 ABG HCO3 ABG O2 Saturation ABG Base Excess ABG Hemoglobin Oxyhemoglobin Sodium Potassium Chloride Carbon Dioxide BUN Creatinine Glucose POC Glucose Calcium Magnesium Ferritin Direct Bilirubin AST ALT Alkaline Phosphatase Lactate Dehydrogenase Troponin T 0.349 H* 0.328 H* C-Reactive Protein NT-Pro-B Natriuret Pep Total Protein Albumin Crossmatch 01/10/20 01/10/20 01/11/20 06:54 06:54 16:45 WBC RBC Hgb Hct MCV RDW Plt Count Lymph % (Auto) [place] % (Auto) Lymph # Seg Neutrophils % Seg Neuts % (Manual) Lymphocytes % (Manual) Nucleated RBC % Seg Neutrophils # Man Lymphocytes # (Manual) Monocytes # (Manual) Eosinophils # (Manual) PT INR D-Dimer Heparin Anti-Xa Level ABG pH ABG pO2 ABG HCO3 ABG O2 Saturation ABG Base Excess ABG Hemoglobin Oxyhemoglobin Sodium 133 L Potassium Chloride 90.6 L Carbon Dioxide BUN 50 H Creatinine 8.4 H Glucose 101 H POC Glucose 106 H Calcium 8.1 L Magnesium Ferritin Direct Bilirubin AST ALT Alkaline Phosphatase 148 H Lactate Dehydrogenase Troponin T 0.315 H* C-Reactive Protein NT-Pro-B Natriuret Pep Total Protein 5.4 L Albumin 2.7 L Crossmatch 01/12/20 01/13/20 01/13/20 16:01 06:11 06:11 WBC 3.1 L RBC 3.25 L Hgb 9.8 L Hct MCV RDW 17.2 H Plt Count 136 L Lymph % (Auto) [place] % (Auto) Lymph # Seg Neutrophils % Seg Neuts % (Manual) Lymphocytes % (Manual) Nucleated RBC % Seg Neutrophils # Man Lymphocytes # (Manual) Monocytes # (Manual) Eosinophils # (Manual) PT INR D-Dimer Heparin Anti-Xa Level ABG pH ABG pO2 ABG HCO3 ABG O2 Saturation ABG Base Excess ABG Hemoglobin Oxyhemoglobin Sodium 135 L Potassium Chloride 93.4 L Carbon Dioxide BUN 19 H Creatinine 4.5 H Glucose 120 H POC Glucose Calcium 7.8 L Magnesium 1.40 L Ferritin Direct Bilirubin AST ALT Alkaline Phosphatase Lactate Dehydrogenase Troponin T C-Reactive Protein NT-Pro-B Natriuret Pep Total Protein Albumin Crossmatch 01/16/20 01/16/20 01/16/20 08:35 11:49 14:11 WBC RBC Hgb Hct MCV RDW Plt Count Lymph % (Auto) [place] % (Auto) Lymph # Seg Neutrophils % Seg Neuts % (Manual) Lymphocytes % (Manual) Nucleated RBC % Seg Neutrophils # Man Lymphocytes # (Manual) Monocytes # (Manual) Eosinophils # (Manual) PT INR D-Dimer Heparin Anti-Xa Level ABG pH ABG pO2 48.4 L ABG HCO3 30.5 H ABG O2 Saturation 81.9 L ABG Base Excess 4.6 H ABG Hemoglobin 10.5 L Oxyhemoglobin 80.1 L Sodium Potassium Chloride Carbon Dioxide BUN Creatinine Glucose POC Glucose 126 H 119 H Calcium Magnesium Ferritin Direct Bilirubin AST ALT Alkaline Phosphatase Lactate Dehydrogenase Troponin T C-Reactive Protein NT-Pro-B Natriuret Pep Total Protein Albumin Crossmatch 01/16/20 01/16/20 01/16/20 15:38 15:38 15:38 WBC RBC Hgb Hct MCV RDW Plt Count Lymph % (Auto) [place] % (Auto) Lymph # Seg Neutrophils % Seg Neuts % (Manual) Lymphocytes % (Manual) Nucleated RBC % Seg Neutrophils # Man Lymphocytes # (Manual) Monocytes # (Manual) Eosinophils # (Manual) PT INR D-Dimer 1104.64 H Heparin Anti-Xa Level ABG pH ABG pO2 ABG HCO3 ABG O2 Saturation ABG Base Excess ABG Hemoglobin Oxyhemoglobin Sodium Potassium Chloride Carbon Dioxide BUN Creatinine Glucose POC Glucose Calcium Magnesium Ferritin > 2000.0 H Direct Bilirubin AST ALT Alkaline Phosphatase Lactate Dehydrogenase 690 H Troponin T C-Reactive Protein 24.10 H NT-Pro-B Natriuret Pep Total Protein Albumin Crossmatch 01/16/20 01/18/20 01/18/20 18:11 06:25 06:25 WBC RBC 3.15 L Hgb 9.4 L Hct 29.4 L MCV RDW 17.5 H Plt Count 135 L Lymph % (Auto) 3.8 L [place] % (Auto) Lymph # 0.2 L Seg Neutrophils % 88.8 H Seg Neuts % (Manual) Lymphocytes % (Manual) Nucleated RBC % Seg Neutrophils # Man Lymphocytes # (Manual) Monocytes # (Manual) Eosinophils # (Manual) PT INR D-Dimer Heparin Anti-Xa Level ABG pH ABG pO2 ABG HCO3 ABG O2 Saturation ABG Base Excess ABG Hemoglobin Oxyhemoglobin Sodium Potassium Chloride 96.8 L Carbon Dioxide BUN 26 H Creatinine 4.2 H Glucose 115 H POC Glucose 130 H Calcium 8.2 L Magnesium Ferritin Direct Bilirubin AST ALT Alkaline Phosphatase Lactate Dehydrogenase 537 H Troponin T C-Reactive Protein 17.10 H NT-Pro-B Natriuret Pep Total Protein Albumin Crossmatch 01/18/20 01/18/20 01/18/20 06:25 06:25 12:15 WBC RBC Hgb Hct MCV RDW Plt Count Lymph % (Auto) [place] % (Auto) Lymph # Seg Neutrophils % Seg Neuts % (Manual) Lymphocytes % (Manual) Nucleated RBC % Seg Neutrophils # Man Lymphocytes # (Manual) Monocytes # (Manual) Eosinophils # (Manual) PT INR D-Dimer 938.03 H Heparin Anti-Xa Level ABG pH ABG pO2 66.5 L ABG HCO3 30.1 H ABG O2 Saturation 93.2 L ABG Base Excess 4.6 H ABG Hemoglobin 10.0 L Oxyhemoglobin 91.3 L Sodium Potassium Chloride Carbon Dioxide BUN Creatinine Glucose POC Glucose Calcium Magnesium Ferritin 3105.0 H Direct Bilirubin AST ALT Alkaline Phosphatase Lactate Dehydrogenase Troponin T C-Reactive Protein NT-Pro-B Natriuret Pep Total Protein Albumin Crossmatch 01/20/20 01/20/20 01/20/20 07:37 07:37 07:37 WBC RBC Hgb Hct MCV RDW Plt Count Lymph % (Auto) [place] % (Auto) Lymph # Seg Neutrophils % Seg Neuts % (Manual) Lymphocytes % (Manual) Nucleated RBC % Seg Neutrophils # Man Lymphocytes # (Manual) Monocytes # (Manual) Eosinophils # (Manual) PT INR D-Dimer 2072.25 H Heparin Anti-Xa Level ABG pH ABG pO2 ABG HCO3 ABG O2 Saturation ABG Base Excess ABG Hemoglobin Oxyhemoglobin Sodium Potassium Chloride Carbon Dioxide BUN Creatinine Glucose POC Glucose Calcium Magnesium Ferritin 1826.0 H Direct Bilirubin AST ALT Alkaline Phosphatase Lactate Dehydrogenase 496 H Troponin T C-Reactive Protein 19.30 H NT-Pro-B Natriuret Pep Total Protein Albumin Crossmatch 01/20/20 01/21/20 01/21/20 17:30 03:59 17:35 WBC RBC Hgb Hct MCV RDW Plt Count Lymph % (Auto) [place] % (Auto) Lymph # Seg Neutrophils % Seg Neuts % (Manual) Lymphocytes % (Manual) Nucleated RBC % Seg Neutrophils # Man Lymphocytes # (Manual) Monocytes # (Manual) Eosinophils # (Manual) PT INR D-Dimer Heparin Anti-Xa Level ABG pH ABG pO2 61.1 L 67.4 L ABG HCO3 29.9 H 26.2 H ABG O2 Saturation 91.7 L 93.4 L ABG Base Excess 4.9 H ABG Hemoglobin 9.0 L 9.1 L Oxyhemoglobin 89.5 L 91.1 L Sodium 136 L Potassium Chloride Carbon Dioxide BUN 36 H Creatinine 4.9 H Glucose POC Glucose Calcium Magnesium Ferritin Direct Bilirubin AST ALT Alkaline Phosphatase Lactate Dehydrogenase Troponin T C-Reactive Protein NT-Pro-B Natriuret Pep Total Protein Albumin Crossmatch 01/21/20 01/22/20 01/22/20 Unknown 03:41 03:41 WBC RBC Hgb Hct MCV RDW Plt Count Lymph % (Auto) [place] % (Auto) Lymph # Seg Neutrophils % Seg Neuts % (Manual) Lymphocytes % (Manual) Nucleated RBC % Seg Neutrophils # Man Lymphocytes # (Manual) Monocytes # (Manual) Eosinophils # (Manual) PT INR D-Dimer Heparin Anti-Xa Level ABG pH 7.465 H ABG pO2 48.9 L ABG HCO3 26.6 H ABG O2 Saturation 85.7 L ABG Base Excess ABG Hemoglobin 10.4 L Oxyhemoglobin 83.5 L Sodium Potassium Chloride Carbon Dioxide BUN Creatinine Glucose POC Glucose Calcium Magnesium Ferritin 6071.0 H Direct Bilirubin AST ALT Alkaline Phosphatase Lactate Dehydrogenase 963 H Troponin T C-Reactive Protein 30.00 H NT-Pro-B Natriuret Pep Total Protein Albumin Crossmatch 01/22/20 01/22/20 01/22/20 03:41 07:47 11:20 WBC RBC Hgb Hct MCV RDW Plt Count Lymph % (Auto) [place] % (Auto) Lymph # Seg Neutrophils % Seg Neuts % (Manual) Lymphocytes % (Manual) Nucleated RBC % Seg Neutrophils # Man Lymphocytes # (Manual) Monocytes # (Manual) Eosinophils # (Manual) PT INR D-Dimer > 63009 H Heparin Anti-Xa Level ABG pH ABG pO2 66.7 L ABG HCO3 28.7 H ABG O2 Saturation 91.9 L ABG Base Excess ABG Hemoglobin 9.1 L Oxyhemoglobin 89.5 L Sodium Potassium Chloride 94.3 L Carbon Dioxide BUN 53 H Creatinine 6.5 H Glucose POC Glucose Calcium Magnesium Ferritin Direct Bilirubin AST ALT Alkaline Phosphatase Lactate Dehydrogenase Troponin T C-Reactive Protein NT-Pro-B Natriuret Pep Total Protein Albumin Crossmatch 01/22/20 01/22/20 01/23/20 11:49 Unknown 04:55 WBC 15.1 H RBC 3.05 L Hgb 8.8 L Hct 28.3 L MCV RDW 17.8 H Plt Count 125 L Lymph % (Auto) [place] % (Auto) Lymph # Seg Neutrophils % Seg Neuts % (Manual) Lymphocytes % (Manual) Nucleated RBC % Seg Neutrophils # Man Lymphocytes # (Manual) Monocytes # (Manual) Eosinophils # (Manual) PT INR D-Dimer Heparin Anti-Xa Level ABG pH 7.340 L ABG pO2 77.7 L 136.3 H ABG HCO3 27.6 H 28.8 H ABG O2 Saturation ABG Base Excess ABG Hemoglobin 9.3 L 10.9 L Oxyhemoglobin 94.2 L Sodium Potassium Chloride Carbon Dioxide BUN Creatinine Glucose POC Glucose Calcium Magnesium Ferritin Direct Bilirubin AST ALT Alkaline Phosphatase Lactate Dehydrogenase Troponin T C-Reactive Protein NT-Pro-B Natriuret Pep Total Protein Albumin Crossmatch 01/23/20 01/23/20 01/23/20 06:23 07:07 12:23 WBC RBC Hgb Hct MCV RDW Plt Count Lymph % (Auto) [place] % (Auto) Lymph # Seg Neutrophils % Seg Neuts % (Manual) Lymphocytes % (Manual) Nucleated RBC % Seg Neutrophils # Man Lymphocytes # (Manual) Monocytes # (Manual) Eosinophils # (Manual) PT INR D-Dimer Heparin Anti-Xa Level ABG pH ABG pO2 ABG HCO3 ABG O2 Saturation ABG Base Excess ABG Hemoglobin Oxyhemoglobin Sodium Potassium Chloride Carbon Dioxide BUN Creatinine Glucose POC Glucose 57 L 127 H 131 H Calcium Magnesium Ferritin Direct Bilirubin AST ALT Alkaline Phosphatase Lactate Dehydrogenase Troponin T C-Reactive Protein NT-Pro-B Natriuret Pep Total Protein Albumin Crossmatch 01/23/20 01/23/20 01/24/20 Unknown Unknown 04:00 WBC 16.2 H RBC 3.08 L Hgb 8.9 L Hct 28.6 L MCV RDW 17.8 H Plt Count 139 L Lymph % (Auto) [place] % (Auto) Lymph # Seg Neutrophils % Seg Neuts % (Manual) Lymphocytes % (Manual) Nucleated RBC % Seg Neutrophils # Man Lymphocytes # (Manual) Monocytes # (Manual) Eosinophils # (Manual) PT INR D-Dimer Heparin Anti-Xa Level < 0.10 L ABG pH ABG pO2 ABG HCO3 ABG O2 Saturation ABG Base Excess ABG Hemoglobin Oxyhemoglobin Sodium Potassium Chloride Carbon Dioxide BUN Creatinine Glucose POC Glucose Calcium Magnesium Ferritin 4195.0 H Direct Bilirubin AST ALT Alkaline Phosphatase Lactate Dehydrogenase Troponin T C-Reactive Protein NT-Pro-B Natriuret Pep Total Protein Albumin Crossmatch 01/24/20 01/24/20 01/24/20 04:00 04:00 04:00 WBC RBC Hgb Hct MCV RDW Plt Count Lymph % (Auto) [place] % (Auto) Lymph # Seg Neutrophils % Seg Neuts % (Manual) Lymphocytes % (Manual) Nucleated RBC % Seg Neutrophils # Man Lymphocytes # (Manual) Monocytes # (Manual) Eosinophils # (Manual) PT INR D-Dimer 5783.11 H Heparin Anti-Xa Level ABG pH 7.188 L* ABG pO2 70.8 L ABG HCO3 32.2 H ABG O2 Saturation 90.4 L ABG Base Excess ABG Hemoglobin 8.5 L Oxyhemoglobin 88.1 L Sodium Potassium Chloride Carbon Dioxide BUN Creatinine Glucose POC Glucose Calcium Magnesium Ferritin Direct Bilirubin AST ALT Alkaline Phosphatase Lactate Dehydrogenase 474 H Troponin T C-Reactive Protein 29.80 H NT-Pro-B Natriuret Pep Total Protein Albumin Crossmatch 01/24/20 01/24/20 01/24/20 05:20 05:51 09:14 WBC RBC Hgb Hct MCV RDW Plt Count Lymph % (Auto) [place] % (Auto) Lymph # Seg Neutrophils % Seg Neuts % (Manual) Lymphocytes % (Manual) Nucleated RBC % Seg Neutrophils # Man Lymphocytes # (Manual) Monocytes # (Manual) Eosinophils # (Manual) PT INR D-Dimer Heparin Anti-Xa Level ABG pH 7.214 L ABG pO2 71.7 L ABG HCO3 31.5 H ABG O2 Saturation 91.8 L ABG Base Excess ABG Hemoglobin 9.1 L Oxyhemoglobin 89.3 L Sodium Potassium Chloride Carbon Dioxide BUN Creatinine Glucose POC Glucose 50 L 53 L Calcium Magnesium Ferritin Direct Bilirubin AST ALT Alkaline Phosphatase Lactate Dehydrogenase Troponin T C-Reactive Protein NT-Pro-B Natriuret Pep Total Protein Albumin Crossmatch 01/24/20 01/24/20 01/24/20 15:10 18:04 21:10 WBC RBC Hgb Hct MCV RDW Plt Count Lymph % (Auto) [place] % (Auto) Lymph # Seg Neutrophils % Seg Neuts % (Manual) Lymphocytes % (Manual) Nucleated RBC % Seg Neutrophils # Man Lymphocytes # (Manual) Monocytes # (Manual) Eosinophils # (Manual) PT INR D-Dimer Heparin Anti-Xa Level ABG pH ABG pO2 ABG HCO3 ABG O2 Saturation ABG Base Excess ABG Hemoglobin Oxyhemoglobin Sodium Potassium Chloride Carbon Dioxide BUN Creatinine Glucose POC Glucose 114 H 51 L 144 H Calcium Magnesium Ferritin Direct Bilirubin AST ALT Alkaline Phosphatase Lactate Dehydrogenase Troponin T C-Reactive Protein NT-Pro-B Natriuret Pep Total Protein Albumin Crossmatch 01/24/20 01/25/20 01/25/20 Unknown 00:32 03:50 WBC 13.0 H RBC 3.10 L Hgb 9.2 L Hct 29.0 L MCV RDW 17.7 H Plt Count Lymph % (Auto) [place] % (Auto) Lymph # Seg Neutrophils % Seg Neuts % (Manual) 92.0 H Lymphocytes % (Manual) 5.0 L Nucleated RBC % Seg Neutrophils # Man 12.0 H Lymphocytes # (Manual) 0.7 L Monocytes # (Manual) Eosinophils # (Manual) PT INR D-Dimer Heparin Anti-Xa Level ABG pH 7.291 L ABG pO2 71.3 L ABG HCO3 30.6 H ABG O2 Saturation 93.6 L ABG Base Excess 3.3 H ABG Hemoglobin 8.1 L Oxyhemoglobin 91.2 L Sodium Potassium Chloride Carbon Dioxide BUN Creatinine Glucose POC Glucose 114 H Calcium Magnesium Ferritin Direct Bilirubin AST ALT Alkaline Phosphatase Lactate Dehydrogenase Troponin T C-Reactive Protein NT-Pro-B Natriuret Pep Total Protein Albumin Crossmatch 01/25/20 01/25/20 01/25/20 04:22 06:05 17:28 WBC RBC Hgb Hct MCV RDW Plt Count Lymph % (Auto) [place] % (Auto) Lymph # Seg Neutrophils % Seg Neuts % (Manual) Lymphocytes % (Manual) Nucleated RBC % Seg Neutrophils # Man Lymphocytes # (Manual) Monocytes # (Manual) Eosinophils # (Manual) PT INR D-Dimer Heparin Anti-Xa Level ABG pH 7.304 L ABG pO2 69.5 L ABG HCO3 29.7 H ABG O2 Saturation 93.2 L ABG Base Excess ABG Hemoglobin 8.7 L Oxyhemoglobin 90.7 L Sodium Potassium Chloride Carbon Dioxide BUN Creatinine Glucose POC Glucose 136 H 127 H Calcium Magnesium Ferritin Direct Bilirubin AST ALT Alkaline Phosphatase Lactate Dehydrogenase Troponin T C-Reactive Protein NT-Pro-B Natriuret Pep Total Protein Albumin Crossmatch 01/26/20 01/26/20 01/26/20 00:20 02:31 02:31 WBC RBC Hgb Hct MCV RDW Plt Count Lymph % (Auto) [place] % (Auto) Lymph # Seg Neutrophils % Seg Neuts % (Manual) Lymphocytes % (Manual) Nucleated RBC % Seg Neutrophils # Man Lymphocytes # (Manual) Monocytes # (Manual) Eosinophils # (Manual) PT INR D-Dimer Heparin Anti-Xa Level ABG pH ABG pO2 ABG HCO3 ABG O2 Saturation ABG Base Excess ABG Hemoglobin Oxyhemoglobin Sodium Potassium Chloride Carbon Dioxide BUN Creatinine Glucose POC Glucose 127 H Calcium Magnesium Ferritin 3764.0 H Direct Bilirubin AST ALT Alkaline Phosphatase Lactate Dehydrogenase 393 H Troponin T C-Reactive Protein 28.60 H NT-Pro-B Natriuret Pep Total Protein Albumin Crossmatch 01/26/20 01/26/20 01/26/20 02:31 04:45 05:24 WBC RBC Hgb Hct MCV RDW Plt Count Lymph % (Auto) [place] % (Auto) Lymph # Seg Neutrophils % Seg Neuts % (Manual) Lymphocytes % (Manual) Nucleated RBC % Seg Neutrophils # Man Lymphocytes # (Manual) Monocytes # (Manual) Eosinophils # (Manual) PT INR D-Dimer 3828.76 H Heparin Anti-Xa Level ABG pH ABG pO2 ABG HCO3 30.8 H ABG O2 Saturation ABG Base Excess 4.9 H ABG Hemoglobin 7.4 L Oxyhemoglobin 94.6 L Sodium Potassium Chloride Carbon Dioxide BUN Creatinine Glucose POC Glucose 121 H Calcium Magnesium Ferritin Direct Bilirubin AST ALT Alkaline Phosphatase Lactate Dehydrogenase Troponin T C-Reactive Protein NT-Pro-B Natriuret Pep Total Protein Albumin Crossmatch 01/26/20 01/26/20 01/26/20 10:40 12:36 18:10 WBC RBC Hgb Hct MCV RDW Plt Count Lymph % (Auto) [place] % (Auto) Lymph # Seg Neutrophils % Seg Neuts % (Manual) Lymphocytes % (Manual) Nucleated RBC % Seg Neutrophils # Man Lymphocytes # (Manual) Monocytes # (Manual) Eosinophils # (Manual) PT INR D-Dimer Heparin Anti-Xa Level ABG pH ABG pO2 ABG HCO3 ABG O2 Saturation ABG Base Excess ABG Hemoglobin Oxyhemoglobin Sodium Potassium Chloride Carbon Dioxide BUN Creatinine Glucose POC Glucose 119 H 126 H 159 H Calcium Magnesium Ferritin Direct Bilirubin AST ALT Alkaline Phosphatase Lactate Dehydrogenase Troponin T C-Reactive Protein NT-Pro-B Natriuret Pep Total Protein Albumin Crossmatch 01/27/20 01/27/20 01/27/20 03:45 06:15 12:19 WBC RBC Hgb Hct MCV RDW Plt Count Lymph % (Auto) [place] % (Auto) Lymph # Seg Neutrophils % Seg Neuts % (Manual) Lymphocytes % (Manual) Nucleated RBC % Seg Neutrophils # Man Lymphocytes # (Manual) Monocytes # (Manual) Eosinophils # (Manual) PT INR D-Dimer Heparin Anti-Xa Level ABG pH 7.307 L ABG pO2 91.1 H ABG HCO3 30.5 H ABG O2 Saturation ABG Base Excess 3.4 H ABG Hemoglobin 8.7 L Oxyhemoglobin 94.3 L Sodium Potassium Chloride Carbon Dioxide BUN Creatinine Glucose POC Glucose 147 H 164 H Calcium Magnesium Ferritin Direct Bilirubin AST ALT Alkaline Phosphatase Lactate Dehydrogenase Troponin T C-Reactive Protein NT-Pro-B Natriuret Pep Total Protein Albumin Crossmatch 01/27/20 01/28/20 01/28/20 17:42 00:29 04:34 WBC RBC Hgb Hct MCV RDW Plt Count Lymph % (Auto) [place] % (Auto) Lymph # Seg Neutrophils % Seg Neuts % (Manual) Lymphocytes % (Manual) Nucleated RBC % Seg Neutrophils # Man Lymphocytes # (Manual) Monocytes # (Manual) Eosinophils # (Manual) PT INR D-Dimer Heparin Anti-Xa Level ABG pH ABG pO2 ABG HCO3 ABG O2 Saturation ABG Base Excess ABG Hemoglobin Oxyhemoglobin Sodium Potassium Chloride Carbon Dioxide BUN Creatinine Glucose POC Glucose 149 H 178 H Calcium Magnesium Ferritin > 2000.0 H Direct Bilirubin AST ALT Alkaline Phosphatase Lactate Dehydrogenase Troponin T C-Reactive Protein NT-Pro-B Natriuret Pep Total Protein Albumin Crossmatch 01/28/20 01/28/20 01/28/20 04:34 04:34 05:20 WBC RBC Hgb Hct MCV RDW Plt Count Lymph % (Auto) [place] % (Auto) Lymph # Seg Neutrophils % Seg Neuts % (Manual) Lymphocytes % (Manual) Nucleated RBC % Seg Neutrophils # Man Lymphocytes # (Manual) Monocytes # (Manual) Eosinophils # (Manual) PT INR D-Dimer 2379 H Heparin Anti-Xa Level ABG pH 7.237 L ABG pO2 90.9 H ABG HCO3 29.1 H ABG O2 Saturation ABG Base Excess ABG Hemoglobin 7.5 L Oxyhemoglobin 94.0 L Sodium Potassium Chloride Carbon Dioxide BUN Creatinine Glucose POC Glucose Calcium Magnesium Ferritin Direct Bilirubin AST ALT Alkaline Phosphatase Lactate Dehydrogenase 434 H Troponin T C-Reactive Protein 9.70 H NT-Pro-B Natriuret Pep Total Protein Albumin Crossmatch 01/28/20 01/28/20 01/28/20 06:21 12:25 18:17 WBC RBC Hgb Hct MCV RDW Plt Count Lymph % (Auto) [place] % (Auto) Lymph # Seg Neutrophils % Seg Neuts % (Manual) Lymphocytes % (Manual) Nucleated RBC % Seg Neutrophils # Man Lymphocytes # (Manual) Monocytes # (Manual) Eosinophils # (Manual) PT INR D-Dimer Heparin Anti-Xa Level ABG pH ABG pO2 ABG HCO3 ABG O2 Saturation ABG Base Excess ABG Hemoglobin Oxyhemoglobin Sodium Potassium Chloride Carbon Dioxide BUN Creatinine Glucose POC Glucose 127 H 196 H 190 H Calcium Magnesium Ferritin Direct Bilirubin AST ALT Alkaline Phosphatase Lactate Dehydrogenase Troponin T C-Reactive Protein NT-Pro-B Natriuret Pep Total Protein Albumin Crossmatch 01/28/20 01/29/20 01/29/20 23:35 04:00 04:00 WBC 12.6 H RBC 3.01 L Hgb 9.2 L Hct 29.3 L MCV 98 H RDW 18.1 H Plt Count Lymph % (Auto) [place] % (Auto) Lymph # Seg Neutrophils % Seg Neuts % (Manual) Lymphocytes % (Manual) Nucleated RBC % Seg Neutrophils # Man Lymphocytes # (Manual) Monocytes # (Manual) Eosinophils # (Manual) PT INR D-Dimer Heparin Anti-Xa Level ABG pH ABG pO2 ABG HCO3 ABG O2 Saturation ABG Base Excess ABG Hemoglobin Oxyhemoglobin Sodium 132 L Potassium Chloride 90.1 L Carbon Dioxide BUN 50 H Creatinine 3.7 H Glucose 184 H POC Glucose 177 H Calcium Magnesium Ferritin Direct Bilirubin AST 93 H ALT Alkaline Phosphatase 678 H Lactate Dehydrogenase Troponin T C-Reactive Protein NT-Pro-B Natriuret Pep Total Protein Albumin 1.7 L Crossmatch 01/29/20 01/29/20 01/29/20 05:03 11:53 16:44 WBC RBC Hgb Hct MCV RDW Plt Count Lymph % (Auto) [place] % (Auto) Lymph # Seg Neutrophils % Seg Neuts % (Manual) Lymphocytes % (Manual) Nucleated RBC % Seg Neutrophils # Man Lymphocytes # (Manual) Monocytes # (Manual) Eosinophils # (Manual) PT INR D-Dimer Heparin Anti-Xa Level ABG pH ABG pO2 ABG HCO3 ABG O2 Saturation ABG Base Excess ABG Hemoglobin Oxyhemoglobin Sodium Potassium Chloride Carbon Dioxide BUN Creatinine Glucose POC Glucose 145 H 193 H 174 H Calcium Magnesium Ferritin Direct Bilirubin AST ALT Alkaline Phosphatase Lactate Dehydrogenase Troponin T C-Reactive Protein NT-Pro-B Natriuret Pep Total Protein Albumin Crossmatch 01/29/20 01/30/20 01/30/20 23:38 04:25 11:45 WBC RBC Hgb Hct MCV RDW Plt Count Lymph % (Auto) [place] % (Auto) Lymph # Seg Neutrophils % Seg Neuts % (Manual) Lymphocytes % (Manual) Nucleated RBC % Seg Neutrophils # Man Lymphocytes # (Manual) Monocytes # (Manual) Eosinophils # (Manual) PT INR D-Dimer Heparin Anti-Xa Level ABG pH 7.253 L ABG pO2 61.8 L ABG HCO3 29.7 H ABG O2 Saturation 90.1 L ABG Base Excess ABG Hemoglobin 8.2 L Oxyhemoglobin 87.5 L Sodium Potassium Chloride Carbon Dioxide BUN Creatinine Glucose POC Glucose 144 H 191 H Calcium Magnesium Ferritin Direct Bilirubin AST ALT Alkaline Phosphatase Lactate Dehydrogenase Troponin T C-Reactive Protein NT-Pro-B Natriuret Pep Total Protein Albumin Crossmatch 01/30/20 01/31/20 01/31/20 18:21 00:04 03:52 WBC RBC Hgb Hct MCV RDW Plt Count Lymph % (Auto) [place] % (Auto) Lymph # Seg Neutrophils % Seg Neuts % (Manual) Lymphocytes % (Manual) Nucleated RBC % Seg Neutrophils # Man Lymphocytes # (Manual) Monocytes # (Manual) Eosinophils # (Manual) PT INR D-Dimer Heparin Anti-Xa Level ABG pH ABG pO2 69.3 L ABG HCO3 29.4 H ABG O2 Saturation ABG Base Excess 3.7 H ABG Hemoglobin 10.8 L Oxyhemoglobin Sodium Potassium Chloride Carbon Dioxide BUN Creatinine Glucose POC Glucose 198 H 129 H Calcium Magnesium Ferritin Direct Bilirubin AST ALT Alkaline Phosphatase Lactate Dehydrogenase Troponin T C-Reactive Protein NT-Pro-B Natriuret Pep Total Protein Albumin Crossmatch 01/31/20 01/31/20 01/31/20 04:00 04:16 05:12 WBC 16.7 H RBC 2.73 L Hgb 8.3 L Hct 25.7 L MCV RDW 18.0 H Plt Count Lymph % (Auto) [place] % (Auto) Lymph # Seg Neutrophils % Seg Neuts % (Manual) 92.0 H Lymphocytes % (Manual) 2.0 L Nucleated RBC % Seg Neutrophils # Man 15.4 H Lymphocytes # (Manual) 0.3 L Monocytes # (Manual) 1.0 H Eosinophils # (Manual) PT INR D-Dimer Heparin Anti-Xa Level ABG pH ABG pO2 ABG HCO3 ABG O2 Saturation ABG Base Excess ABG Hemoglobin Oxyhemoglobin Sodium 130 L Potassium Chloride 90.1 L Carbon Dioxide BUN 61 H Creatinine 3.4 H Glucose 128 H POC Glucose 157 H Calcium Magnesium Ferritin Direct Bilirubin AST 103 H ALT 63 H Alkaline Phosphatase 534 H Lactate Dehydrogenase Troponin T C-Reactive Protein NT-Pro-B Natriuret Pep Total Protein Albumin 2.1 L Crossmatch 01/31/20 01/31/20 01/31/20 11:50 17:39 18:47 WBC RBC Hgb Hct MCV RDW Plt Count Lymph % (Auto) [place] % (Auto) Lymph # Seg Neutrophils % Seg Neuts % (Manual) Lymphocytes % (Manual) Nucleated RBC % Seg Neutrophils # Man Lymphocytes # (Manual) Monocytes # (Manual) Eosinophils # (Manual) PT INR D-Dimer Heparin Anti-Xa Level ABG pH ABG pO2 ABG HCO3 ABG O2 Saturation ABG Base Excess ABG Hemoglobin Oxyhemoglobin Sodium Potassium Chloride Carbon Dioxide BUN Creatinine Glucose POC Glucose 129 H 51 L 172 H Calcium Magnesium Ferritin Direct Bilirubin AST ALT Alkaline Phosphatase Lactate Dehydrogenase Troponin T C-Reactive Protein NT-Pro-B Natriuret Pep Total Protein Albumin Crossmatch 02/01/20 02/01/20 02/01/20 03:49 03:49 05:00 WBC 17.4 H RBC 2.68 L Hgb 8.0 L Hct 25.2 L MCV RDW 18.4 H Plt Count Lymph % (Auto) [place] % (Auto) Lymph # Seg Neutrophils % Seg Neuts % (Manual) Lymphocytes % (Manual) Nucleated RBC % Seg Neutrophils # Man Lymphocytes # (Manual) Monocytes # (Manual) Eosinophils # (Manual) PT INR D-Dimer Heparin Anti-Xa Level ABG pH 7.290 L ABG pO2 ABG HCO3 26.8 H ABG O2 Saturation ABG Base Excess ABG Hemoglobin 7.5 L Oxyhemoglobin 94.2 L Sodium 133 L Potassium Chloride 90.8 L Carbon Dioxide 21 L BUN 90 H Creatinine 4.6 H Glucose 145 H POC Glucose Calcium Magnesium Ferritin Direct Bilirubin AST ALT Alkaline Phosphatase Lactate Dehydrogenase Troponin T C-Reactive Protein NT-Pro-B Natriuret Pep Total Protein Albumin Crossmatch 02/01/20 02/01/20 02/01/20 05:34 06:09 12:42 WBC RBC Hgb Hct MCV RDW Plt Count Lymph % (Auto) [place] % (Auto) Lymph # Seg Neutrophils % Seg Neuts % (Manual) Lymphocytes % (Manual) Nucleated RBC % Seg Neutrophils # Man Lymphocytes # (Manual) Monocytes # (Manual) Eosinophils # (Manual) PT INR D-Dimer Heparin Anti-Xa Level ABG pH ABG pO2 ABG HCO3 ABG O2 Saturation ABG Base Excess ABG Hemoglobin Oxyhemoglobin Sodium Potassium Chloride Carbon Dioxide BUN Creatinine Glucose POC Glucose 166 H 143 H 218 H Calcium Magnesium Ferritin Direct Bilirubin AST ALT Alkaline Phosphatase Lactate Dehydrogenase Troponin T C-Reactive Protein NT-Pro-B Natriuret Pep Total Protein Albumin Crossmatch 02/01/20 02/01/20 02/02/20 17:38 18:24 05:00 WBC RBC Hgb Hct MCV RDW Plt Count Lymph % (Auto) [place] % (Auto) Lymph # Seg Neutrophils % Seg Neuts % (Manual) Lymphocytes % (Manual) Nucleated RBC % Seg Neutrophils # Man Lymphocytes # (Manual) Monocytes # (Manual) Eosinophils # (Manual) PT INR D-Dimer Heparin Anti-Xa Level ABG pH 7.317 L ABG pO2 ABG HCO3 28.2 H ABG O2 Saturation ABG Base Excess ABG Hemoglobin 10.1 L Oxyhemoglobin 94.0 L Sodium Potassium Chloride Carbon Dioxide BUN Creatinine Glucose POC Glucose 158 H 233 H Calcium Magnesium Ferritin Direct Bilirubin AST ALT Alkaline Phosphatase Lactate Dehydrogenase Troponin T C-Reactive Protein NT-Pro-B Natriuret Pep Total Protein Albumin Crossmatch 02/02/20 02/02/20 02/02/20 05:44 05:44 05:44 WBC 16.0 H RBC 2.85 L Hgb 8.3 L Hct 26.3 L MCV RDW 18.6 H Plt Count Lymph % (Auto) [place] % (Auto) Lymph # Seg Neutrophils % Seg Neuts % (Manual) 91.0 H Lymphocytes % (Manual) 2.0 L Nucleated RBC % Seg Neutrophils # Man 14.6 H Lymphocytes # (Manual) 0.3 L Monocytes # (Manual) Eosinophils # (Manual) PT INR D-Dimer Heparin Anti-Xa Level 0.77 H ABG pH ABG pO2 ABG HCO3 ABG O2 Saturation ABG Base Excess ABG Hemoglobin Oxyhemoglobin Sodium Potassium Chloride 95.5 L Carbon Dioxide BUN 57 H Creatinine 3.0 H Glucose 144 H POC Glucose Calcium 8.1 L Magnesium Ferritin Direct Bilirubin 0.3 H AST 179 H ALT 106 H Alkaline Phosphatase 557 H Lactate Dehydrogenase Troponin T C-Reactive Protein NT-Pro-B Natriuret Pep Total Protein 6.1 L Albumin 2.3 L Crossmatch 02/02/20 02/02/20 02/02/20 11:17 11:33 12:24 WBC RBC Hgb Hct MCV RDW Plt Count Lymph % (Auto) [place] % (Auto) Lymph # Seg Neutrophils % Seg Neuts % (Manual) Lymphocytes % (Manual) Nucleated RBC % Seg Neutrophils # Man Lymphocytes # (Manual) Monocytes # (Manual) Eosinophils # (Manual) PT INR D-Dimer Heparin Anti-Xa Level ABG pH ABG pO2 ABG HCO3 ABG O2 Saturation ABG Base Excess ABG Hemoglobin Oxyhemoglobin Sodium Potassium Chloride Carbon Dioxide BUN Creatinine Glucose POC Glucose < 40 L < 40 L 224 H Calcium Magnesium Ferritin Direct Bilirubin AST ALT Alkaline Phosphatase Lactate Dehydrogenase Troponin T C-Reactive Protein NT-Pro-B Natriuret Pep Total Protein Albumin Crossmatch 02/02/20 02/02/20 02/03/20 12:33 17:42 00:25 WBC RBC Hgb Hct MCV RDW Plt Count Lymph % (Auto) [place] % (Auto) Lymph # Seg Neutrophils % Seg Neuts % (Manual) Lymphocytes % (Manual) Nucleated RBC % Seg Neutrophils # Man Lymphocytes # (Manual) Monocytes # (Manual) Eosinophils # (Manual) PT INR D-Dimer Heparin Anti-Xa Level ABG pH ABG pO2 ABG HCO3 ABG O2 Saturation ABG Base Excess ABG Hemoglobin Oxyhemoglobin Sodium Potassium Chloride Carbon Dioxide BUN Creatinine Glucose 296 H POC Glucose 228 H < 40 L Calcium Magnesium Ferritin Direct Bilirubin AST ALT Alkaline Phosphatase Lactate Dehydrogenase Troponin T C-Reactive Protein NT-Pro-B Natriuret Pep Total Protein Albumin Crossmatch 02/03/20 02/03/20 02/03/20 00:27 03:59 03:59 WBC 22.9 H RBC 2.80 L Hgb 8.3 L Hct 27.4 L MCV 98 H RDW 19.2 H Plt Count Lymph % (Auto) [place] % (Auto) Lymph # Seg Neutrophils % Seg Neuts % (Manual) 92.0 H Lymphocytes % (Manual) 4.0 L Nucleated RBC % Seg Neutrophils # Man 21.1 H Lymphocytes # (Manual) 0.9 L Monocytes # (Manual) Eosinophils # (Manual) PT INR D-Dimer Heparin Anti-Xa Level ABG pH ABG pO2 ABG HCO3 ABG O2 Saturation ABG Base Excess ABG Hemoglobin Oxyhemoglobin Sodium 134 L Potassium 3.5 L Chloride Carbon Dioxide 21 L BUN 40 H Creatinine 2.6 H Glucose 180 H POC Glucose 198 H Calcium Magnesium Ferritin Direct Bilirubin AST ALT Alkaline Phosphatase Lactate Dehydrogenase Troponin T C-Reactive Protein NT-Pro-B Natriuret Pep Total Protein Albumin Crossmatch 02/03/20 02/03/20 02/03/20 04:48 05:00 12:21 WBC RBC Hgb Hct MCV RDW Plt Count Lymph % (Auto) [place] % (Auto) Lymph # Seg Neutrophils % Seg Neuts % (Manual) Lymphocytes % (Manual) Nucleated RBC % Seg Neutrophils # Man Lymphocytes # (Manual) Monocytes # (Manual) Eosinophils # (Manual) PT INR D-Dimer Heparin Anti-Xa Level ABG pH 7.315 L ABG pO2 97.3 H ABG HCO3 28.5 H ABG O2 Saturation ABG Base Excess ABG Hemoglobin 8.3 L Oxyhemoglobin 94.8 L Sodium Potassium Chloride Carbon Dioxide BUN Creatinine Glucose POC Glucose 182 H 201 H Calcium Magnesium Ferritin Direct Bilirubin AST ALT Alkaline Phosphatase Lactate Dehydrogenase Troponin T C-Reactive Protein NT-Pro-B Natriuret Pep Total Protein Albumin Crossmatch 02/03/20 02/03/20 02/04/20 17:43 23:36 04:50 WBC RBC Hgb Hct MCV RDW Plt Count Lymph % (Auto) [place] % (Auto) Lymph # Seg Neutrophils % Seg Neuts % (Manual) Lymphocytes % (Manual) Nucleated RBC % Seg Neutrophils # Man Lymphocytes # (Manual) Monocytes # (Manual) Eosinophils # (Manual) PT INR D-Dimer Heparin Anti-Xa Level ABG pH ABG pO2 ABG HCO3 ABG O2 Saturation ABG Base Excess ABG Hemoglobin Oxyhemoglobin Sodium 135 L Potassium Chloride 96.3 L Carbon Dioxide 21 L BUN 63 H Creatinine 4.1 H D Glucose 156 H POC Glucose 224 H 146 H Calcium 8.2 L Magnesium Ferritin Direct Bilirubin AST ALT Alkaline Phosphatase Lactate Dehydrogenase Troponin T C-Reactive Protein NT-Pro-B Natriuret Pep Total Protein Albumin Crossmatch 02/04/20 02/04/20 02/04/20 04:50 05:30 05:40 WBC 18.3 H RBC 2.31 L Hgb 6.9 L Hct 22.0 L MCV RDW 18.2 H Plt Count Lymph % (Auto) [place] % (Auto) Lymph # Seg Neutrophils % Seg Neuts % (Manual) 85.0 H Lymphocytes % (Manual) 4.0 L Nucleated RBC % 1.0 H Seg Neutrophils # Man 15.6 H Lymphocytes # (Manual) 0.7 L Monocytes # (Manual) Eosinophils # (Manual) PT INR D-Dimer Heparin Anti-Xa Level ABG pH 7.317 L ABG pO2 77.7 L ABG HCO3 27.4 H ABG O2 Saturation ABG Base Excess ABG Hemoglobin 8.0 L Oxyhemoglobin 94.5 L Sodium Potassium Chloride Carbon Dioxide BUN Creatinine Glucose POC Glucose 202 H Calcium Magnesium Ferritin Direct Bilirubin AST ALT Alkaline Phosphatase Lactate Dehydrogenase Troponin T C-Reactive Protein NT-Pro-B Natriuret Pep Total Protein Albumin Crossmatch 02/04/20 02/04/20 02/04/20 10:47 12:53 18:44 WBC RBC Hgb Hct MCV RDW Plt Count Lymph % (Auto) [place] % (Auto) Lymph # Seg Neutrophils % Seg Neuts % (Manual) Lymphocytes % (Manual) Nucleated RBC % Seg Neutrophils # Man Lymphocytes # (Manual) Monocytes # (Manual) Eosinophils # (Manual) PT INR D-Dimer Heparin Anti-Xa Level ABG pH ABG pO2 ABG HCO3 ABG O2 Saturation ABG Base Excess ABG Hemoglobin Oxyhemoglobin Sodium Potassium Chloride Carbon Dioxide BUN Creatinine Glucose POC Glucose 197 H 143 H Calcium Magnesium Ferritin Direct Bilirubin AST ALT Alkaline Phosphatase Lactate Dehydrogenase Troponin T C-Reactive Protein NT-Pro-B Natriuret Pep Total Protein Albumin Crossmatch See Detail 02/05/20 02/05/20 02/05/20 00:43 04:14 04:35 WBC RBC Hgb Hct MCV RDW Plt Count Lymph % (Auto) [place] % (Auto) Lymph # Seg Neutrophils % Seg Neuts % (Manual) Lymphocytes % (Manual) Nucleated RBC % Seg Neutrophils # Man Lymphocytes # (Manual) Monocytes # (Manual) Eosinophils # (Manual) PT INR D-Dimer Heparin Anti-Xa Level ABG pH 7.327 L ABG pO2 75.5 L ABG HCO3 30.1 H ABG O2 Saturation ABG Base Excess 3.5 H ABG Hemoglobin 8.4 L Oxyhemoglobin 93.8 L Sodium 134 L Potassium 3.3 L Chloride 97.3 L Carbon Dioxide BUN 38 H Creatinine 2.2 H Glucose 187 H POC Glucose 163 H Calcium 8.1 L Magnesium Ferritin Direct Bilirubin AST ALT Alkaline Phosphatase Lactate Dehydrogenase Troponin T C-Reactive Protein NT-Pro-B Natriuret Pep Total Protein Albumin Crossmatch 02/05/20 02/05/20 02/05/20 04:35 05:16 12:17 WBC 24.4 H RBC 2.75 L Hgb 7.9 L Hct 25.2 L MCV RDW 18.1 H Plt Count Lymph % (Auto) [place] % (Auto) Lymph # Seg Neutrophils % Seg Neuts % (Manual) 96.0 H Lymphocytes % (Manual) 1.0 L Nucleated RBC % Seg Neutrophils # Man 23.4 H Lymphocytes # (Manual) 0.2 L Monocytes # (Manual) Eosinophils # (Manual) 0.5 H PT INR D-Dimer Heparin Anti-Xa Level ABG pH ABG pO2 ABG HCO3 ABG O2 Saturation ABG Base Excess ABG Hemoglobin Oxyhemoglobin Sodium Potassium Chloride Carbon Dioxide BUN Creatinine Glucose POC Glucose 196 H 174 H Calcium Magnesium Ferritin Direct Bilirubin AST ALT Alkaline Phosphatase Lactate Dehydrogenase Troponin T C-Reactive Protein NT-Pro-B Natriuret Pep Total Protein Albumin Crossmatch 02/05/20 02/05/20 02/05/20 13:55 13:55 13:55 WBC RBC Hgb Hct MCV RDW Plt Count Lymph % (Auto) [place] % (Auto) Lymph # Seg Neutrophils % Seg Neuts % (Manual) Lymphocytes % (Manual) Nucleated RBC % Seg Neutrophils # Man Lymphocytes # (Manual) Monocytes # (Manual) Eosinophils # (Manual) PT INR D-Dimer 2896.73 H Heparin Anti-Xa Level ABG pH ABG pO2 ABG HCO3 ABG O2 Saturation ABG Base Excess ABG Hemoglobin Oxyhemoglobin Sodium Potassium Chloride Carbon Dioxide BUN Creatinine Glucose POC Glucose Calcium Magnesium Ferritin > 2000.0 H Direct Bilirubin AST ALT Alkaline Phosphatase Lactate Dehydrogenase 311 H Troponin T C-Reactive Protein 17.30 H NT-Pro-B Natriuret Pep Total Protein Albumin Crossmatch 02/05/20 02/05/20 02/06/20 17:20 21:53 04:50 WBC RBC Hgb Hct MCV RDW Plt Count Lymph % (Auto) [place] % (Auto) Lymph # Seg Neutrophils % Seg Neuts % (Manual) Lymphocytes % (Manual) Nucleated RBC % Seg Neutrophils # Man Lymphocytes # (Manual) Monocytes # (Manual) Eosinophils # (Manual) PT INR D-Dimer Heparin Anti-Xa Level ABG pH 7.349 L ABG pO2 64.5 L ABG HCO3 28.4 H ABG O2 Saturation 94.0 L ABG Base Excess ABG Hemoglobin 8.4 L Oxyhemoglobin 91.8 L Sodium Potassium Chloride Carbon Dioxide BUN Creatinine Glucose POC Glucose 191 H 200 H Calcium Magnesium Ferritin Direct Bilirubin AST ALT Alkaline Phosphatase Lactate Dehydrogenase Troponin T C-Reactive Protein NT-Pro-B Natriuret Pep Total Protein Albumin Crossmatch 02/06/20 02/06/20 02/06/20 05:55 05:55 05:58 WBC 22.4 H RBC 3.02 L Hgb 8.5 L Hct 27.6 L MCV RDW 18.8 H Plt Count Lymph % (Auto) [place] % (Auto) Lymph # Seg Neutrophils % Seg Neuts % (Manual) Lymphocytes % (Manual) Nucleated RBC % Seg Neutrophils # Man Lymphocytes # (Manual) Monocytes # (Manual) Eosinophils # (Manual) PT INR D-Dimer Heparin Anti-Xa Level ABG pH ABG pO2 ABG HCO3 ABG O2 Saturation ABG Base Excess ABG Hemoglobin Oxyhemoglobin Sodium 136 L Potassium Chloride 96.4 L Carbon Dioxide BUN 66 H Creatinine 3.6 H D Glucose 139 H POC Glucose 110 H Calcium Magnesium Ferritin Direct Bilirubin AST ALT Alkaline Phosphatase Lactate Dehydrogenase Troponin T C-Reactive Protein NT-Pro-B Natriuret Pep Total Protein Albumin Crossmatch 02/06/20 02/06/20 02/06/20 12:19 17:52 23:47 WBC RBC Hgb Hct MCV RDW Plt Count Lymph % (Auto) [place] % (Auto) Lymph # Seg Neutrophils % Seg Neuts % (Manual) Lymphocytes % (Manual) Nucleated RBC % Seg Neutrophils # Man Lymphocytes # (Manual) Monocytes # (Manual) Eosinophils # (Manual) PT INR D-Dimer Heparin Anti-Xa Level ABG pH ABG pO2 ABG HCO3 ABG O2 Saturation ABG Base Excess ABG Hemoglobin Oxyhemoglobin Sodium Potassium Chloride Carbon Dioxide BUN Creatinine Glucose POC Glucose 185 H 185 H 173 H Calcium Magnesium Ferritin Direct Bilirubin AST ALT Alkaline Phosphatase Lactate Dehydrogenase Troponin T C-Reactive Protein NT-Pro-B Natriuret Pep Total Protein Albumin Crossmatch 02/07/20 02/07/20 02/07/20 05:04 11:46 11:52 WBC RBC Hgb Hct MCV RDW Plt Count Lymph % (Auto) [place] % (Auto) Lymph # Seg Neutrophils % Seg Neuts % (Manual) Lymphocytes % (Manual) Nucleated RBC % Seg Neutrophils # Man Lymphocytes # (Manual) Monocytes # (Manual) Eosinophils # (Manual) PT INR D-Dimer Heparin Anti-Xa Level ABG pH ABG pO2 ABG HCO3 ABG O2 Saturation ABG Base Excess ABG Hemoglobin Oxyhemoglobin Sodium Potassium Chloride Carbon Dioxide BUN Creatinine Glucose POC Glucose 145 H 240 H 251 H Calcium Magnesium Ferritin Direct Bilirubin AST ALT Alkaline Phosphatase Lactate Dehydrogenase Troponin T C-Reactive Protein NT-Pro-B Natriuret Pep Total Protein Albumin Crossmatch 02/07/20 02/08/20 02/08/20 18:18 00:22 05:43 WBC RBC Hgb Hct MCV RDW Plt Count Lymph % (Auto) [place] % (Auto) Lymph # Seg Neutrophils % Seg Neuts % (Manual) Lymphocytes % (Manual) Nucleated RBC % Seg Neutrophils # Man Lymphocytes # (Manual) Monocytes # (Manual) Eosinophils # (Manual) PT INR D-Dimer Heparin Anti-Xa Level ABG pH ABG pO2 ABG HCO3 ABG O2 Saturation ABG Base Excess ABG Hemoglobin Oxyhemoglobin Sodium Potassium Chloride Carbon Dioxide BUN Creatinine Glucose POC Glucose 225 H 274 H 307 H Calcium Magnesium Ferritin Direct Bilirubin AST ALT Alkaline Phosphatase Lactate Dehydrogenase Troponin T C-Reactive Protein NT-Pro-B Natriuret Pep Total Protein Albumin Crossmatch 02/08/20 02/08/20 02/08/20 09:40 12:09 17:42 WBC RBC Hgb Hct MCV RDW Plt Count Lymph % (Auto) [place] % (Auto) Lymph # Seg Neutrophils % Seg Neuts % (Manual) Lymphocytes % (Manual) Nucleated RBC % Seg Neutrophils # Man Lymphocytes # (Manual) Monocytes # (Manual) Eosinophils # (Manual) PT INR D-Dimer Heparin Anti-Xa Level ABG pH 7.167 L* ABG pO2 ABG HCO3 30.3 H ABG O2 Saturation 92.6 L ABG Base Excess ABG Hemoglobin 8.8 L Oxyhemoglobin 90.4 L Sodium Potassium Chloride Carbon Dioxide BUN Creatinine Glucose POC Glucose 327 H 269 H Calcium Magnesium Ferritin Direct Bilirubin AST ALT Alkaline Phosphatase Lactate Dehydrogenase Troponin T C-Reactive Protein NT-Pro-B Natriuret Pep Total Protein Albumin Crossmatch 02/08/20 02/09/20 02/09/20 20:45 01:16 04:48 WBC 22.9 H RBC 2.86 L Hgb 8.3 L Hct 26.2 L MCV RDW 18.0 H Plt Count 507 H Lymph % (Auto) [place] % (Auto) Lymph # Seg Neutrophils % Seg Neuts % (Manual) Lymphocytes % (Manual) Nucleated RBC % Seg Neutrophils # Man Lymphocytes # (Manual) Monocytes # (Manual) Eosinophils # (Manual) PT INR D-Dimer Heparin Anti-Xa Level ABG pH ABG pO2 79.1 L ABG HCO3 31.7 H ABG O2 Saturation ABG Base Excess 4.6 H ABG Hemoglobin Oxyhemoglobin 93.5 L Sodium Potassium Chloride Carbon Dioxide BUN Creatinine Glucose POC Glucose 150 H Calcium Magnesium Ferritin Direct Bilirubin AST ALT Alkaline Phosphatase Lactate Dehydrogenase Troponin T C-Reactive Protein NT-Pro-B Natriuret Pep Total Protein Albumin Crossmatch 02/09/20 02/09/20 02/09/20 04:48 05:14 13:11 WBC RBC Hgb Hct MCV RDW Plt Count Lymph % (Auto) [place] % (Auto) Lymph # Seg Neutrophils % Seg Neuts % (Manual) Lymphocytes % (Manual) Nucleated RBC % Seg Neutrophils # Man Lymphocytes # (Manual) Monocytes # (Manual) Eosinophils # (Manual) PT INR D-Dimer Heparin Anti-Xa Level ABG pH ABG pO2 ABG HCO3 ABG O2 Saturation ABG Base Excess ABG Hemoglobin Oxyhemoglobin Sodium Potassium Chloride 93.9 L Carbon Dioxide BUN 59 H Creatinine 2.5 H Glucose 309 H POC Glucose 356 H 184 H Calcium Magnesium Ferritin Direct Bilirubin AST ALT Alkaline Phosphatase Lactate Dehydrogenase Troponin T C-Reactive Protein NT-Pro-B Natriuret Pep Total Protein Albumin Crossmatch 02/09/20 02/10/20 02/10/20 16:53 00:20 05:38 WBC RBC Hgb Hct MCV RDW Plt Count Lymph % (Auto) [place] % (Auto) Lymph # Seg Neutrophils % Seg Neuts % (Manual) Lymphocytes % (Manual) Nucleated RBC % Seg Neutrophils # Man Lymphocytes # (Manual) Monocytes # (Manual) Eosinophils # (Manual) PT INR D-Dimer Heparin Anti-Xa Level ABG pH ABG pO2 ABG HCO3 ABG O2 Saturation ABG Base Excess ABG Hemoglobin Oxyhemoglobin Sodium Potassium Chloride Carbon Dioxide BUN Creatinine Glucose POC Glucose 357 H 298 H 300 H Calcium Magnesium Ferritin Direct Bilirubin AST ALT Alkaline Phosphatase Lactate Dehydrogenase Troponin T C-Reactive Protein NT-Pro-B Natriuret Pep Total Protein Albumin Crossmatch 02/10/20 02/10/20 02/11/20 12:38 18:17 00:08 WBC RBC Hgb Hct MCV RDW Plt Count Lymph % (Auto) [place] % (Auto) Lymph # Seg Neutrophils % Seg Neuts % (Manual) Lymphocytes % (Manual) Nucleated RBC % Seg Neutrophils # Man Lymphocytes # (Manual) Monocytes # (Manual) Eosinophils # (Manual) PT INR D-Dimer Heparin Anti-Xa Level ABG pH ABG pO2 ABG HCO3 ABG O2 Saturation ABG Base Excess ABG Hemoglobin Oxyhemoglobin Sodium Potassium Chloride Carbon Dioxide BUN Creatinine Glucose POC Glucose 350 H 271 H 164 H Calcium Magnesium Ferritin Direct Bilirubin AST ALT Alkaline Phosphatase Lactate Dehydrogenase Troponin T C-Reactive Protein NT-Pro-B Natriuret Pep Total Protein Albumin Crossmatch 02/11/20 02/11/20 02/11/20 05:34 12:18 17:27 WBC RBC Hgb Hct MCV RDW Plt Count Lymph % (Auto) [place] % (Auto) Lymph # Seg Neutrophils % Seg Neuts % (Manual) Lymphocytes % (Manual) Nucleated RBC % Seg Neutrophils # Man Lymphocytes # (Manual) Monocytes # (Manual) Eosinophils # (Manual) PT INR D-Dimer Heparin Anti-Xa Level ABG pH ABG pO2 ABG HCO3 ABG O2 Saturation ABG Base Excess ABG Hemoglobin Oxyhemoglobin Sodium Potassium Chloride Carbon Dioxide BUN Creatinine Glucose POC Glucose 274 H 246 H 174 H Calcium Magnesium Ferritin Direct Bilirubin AST ALT Alkaline Phosphatase Lactate Dehydrogenase Troponin T C-Reactive Protein NT-Pro-B Natriuret Pep Total Protein Albumin Crossmatch 02/12/20 02/12/20 02/12/20 00:19 05:00 05:00 WBC 31.3 H RBC 2.79 L Hgb 8.0 L Hct 25.4 L MCV RDW 18.4 H Plt Count 566 H Lymph % (Auto) [place] % (Auto) Lymph # Seg Neutrophils % Seg Neuts % (Manual) Lymphocytes % (Manual) Nucleated RBC % Seg Neutrophils # Man Lymphocytes # (Manual) Monocytes # (Manual) Eosinophils # (Manual) PT INR D-Dimer Heparin Anti-Xa Level ABG pH ABG pO2 ABG HCO3 ABG O2 Saturation ABG Base Excess ABG Hemoglobin Oxyhemoglobin Sodium 136 L Potassium Chloride 95.6 L Carbon Dioxide BUN 102 H Creatinine 3.0 H Glucose 170 H POC Glucose 227 H Calcium Magnesium Ferritin Direct Bilirubin AST ALT Alkaline Phosphatase Lactate Dehydrogenase Troponin T C-Reactive Protein NT-Pro-B Natriuret Pep Total Protein Albumin Crossmatch 02/12/20 02/12/20 02/12/20 05:25 12:21 18:58 WBC RBC Hgb Hct MCV RDW Plt Count Lymph % (Auto) [place] % (Auto) Lymph # Seg Neutrophils % Seg Neuts % (Manual) Lymphocytes % (Manual) Nucleated RBC % Seg Neutrophils # Man Lymphocytes # (Manual) Monocytes # (Manual) Eosinophils # (Manual) PT INR D-Dimer Heparin Anti-Xa Level ABG pH ABG pO2 ABG HCO3 ABG O2 Saturation ABG Base Excess ABG Hemoglobin Oxyhemoglobin Sodium Potassium Chloride Carbon Dioxide BUN Creatinine Glucose POC Glucose 157 H 230 H 197 H Calcium Magnesium Ferritin Direct Bilirubin AST ALT Alkaline Phosphatase Lactate Dehydrogenase Troponin T C-Reactive Protein NT-Pro-B Natriuret Pep Total Protein Albumin Crossmatch 02/12/20 02/13/20 23:36 05:30 WBC RBC Hgb Hct MCV RDW Plt Count Lymph % (Auto) [place] % (Auto) Lymph # Seg Neutrophils % Seg Neuts % (Manual) Lymphocytes % (Manual) Nucleated RBC % Seg Neutrophils # Man Lymphocytes # (Manual) Monocytes # (Manual) Eosinophils # (Manual) PT INR D-Dimer Heparin Anti-Xa Level ABG pH ABG pO2 ABG HCO3 ABG O2 Saturation ABG Base Excess ABG Hemoglobin Oxyhemoglobin Sodium Potassium Chloride Carbon Dioxide BUN Creatinine Glucose POC Glucose 166 H 247 H Calcium Magnesium Ferritin Direct Bilirubin AST ALT Alkaline Phosphatase Lactate Dehydrogenase Troponin T C-Reactive Protein NT-Pro-B Natriuret Pep Total Protein Albumin Crossmatch Allied health notes reviewed: nursing
[2020-02-13] MEDS: INSULIN GLARGINE 100 UNITS/ML SUB-Q SCH (09:20)
[2020-02-13] MEDS: FAMOTIDINE 20 MG TAB PO SCH (09:20)
[2020-02-13] MEDS: DOCUSATE SODIUM 100 MG/10 ML ORAL LIQD PO SCH ×2 (09:20→21:57)
[2020-02-13] MEDS: HEPARIN 5,000 UNIT/1 ML VIAL SUB-Q SCH ×2 (09:20→21:57)
[2020-02-13 09:33] LABS: Calcium 9.1 mg/dL (8.4-10.2)
--- NOTE | 2020-02-13 11:15 | Progress Note ---
Assessment and Plan Assessment and plan: Suspected COVID- 19 Patient with very elevated inflammatory markers of ferritin, CRP, LDH and d- dimer. Bilateral pneumonia. Continue antibiotics per ID ARDS. Etiology secondary to above. Acute hypoxemic respiratory failure. Continue oxygen to maintain sats greater than 92% Appears stable on HFNC; wean FiO2 then flow Chest pain Stress test neg for ischemia GERD and costochondritis in differential diagnosis Volume overload s/p hemodialysis Nephrology consulted,following Acute on Chronic diastolic CHF exacerbation Secondary to volume overload End stage renal disease on dialysis Nephrology following T2DM (type 2 diabetes mellitus) Continue continue coverage Check hemoglobin A1c Hypertension Continue antihypertensives Hyponatremia Secondary to increased volume--dilutional DVT prophylaxis On heparin and GI prophylaxis 01/11 Covid 19 survey testing sent, nasal swab done 01/10 01/12 Patient has acute resp failure. may need Oxygen on dc. awaiting Covid result 01/13 Still has shortness of breath, awaiting Covid test. 01/14 Pt still dyspneic, await covid testing, Pulse ox 83% 01/16/2020. Patient remains dyspneic. Follow-up COVID testing. 01/17/2020. Patient still requiring large amounts of oxygen. Patient currently with 15 L satting at 95%. Patient with increased inflammatory markers. Follow- up chest x-ray today. 01/18/20--Patient still requiring large amounts of oxygen. Patient currently with 15 L %. Patient with increased inflammatory markers. 01/19/2020 very elevated inflammatory markers- ferritin> 2000, CRP >24, LDH> 600, d-dimer >1000 putting her at high risk for ARDS. Continue hydroxychloroquine 400 mg PO BID for 1 day then 200 mg PO BID for 4 days (total 5 days) with zinc 220 mg PO qday. Continue ceftriaxone. ContinueCOVID isolationprecautions pe r [facility]. Continue serial Ferritin, LDH, D-Dimer, CRP every 48h 01/20/2020. Inflammatory markers remain elevated with ferritin 1826, LDH 496, CRP 19.3, and d-dimer 2072. Patient requiring high flow nasal cannula 40L, FiO2 80%. Pulmonary following. Continue antibiotics and Plaquenil. Continue COVID isolationprecautions per [facility] protocol. Patient has a high risk mortality and remains guarded. 01/21/2020. Continue antibiotics and Plaquenil. Continue COVID isolationprecautions per [facility] protocol. Maintain sats of 88% and greater. Still on HFNC, O2 weaned to 95% overnight. Sats documented at 98%. Pulmonary following and reports If patient progresses could give bipap a one hour trial to see if there is improvement, repeat ABG, if not would suggest elective intubation 01/22/2020 Patient still critically ill. Yesterday 01/20 had cardiopulmonary arrest so now intubated in ICU. Prognosis guarded. 01/23/2020 still critically ill. No more fever. Continue vent management. 01/24/20 Still critically ill, remain on vent. Continue current management. Will call . 01/25/20 Patient still critically ill. I called Davis Ramsey and gave update. He wants DNR status and says he will request withdrawal of care if patient does not get better after weekend. I discussed with Fashion Show Director. 01/26/20 patient still intubated, on vent. She means a DNR order. Discussed with Nurse 01/26 patient still critically ill, vent dependent. 01/27 patient still intubated, on vent. On levophed to keep MAP>65mmhg 01/29/2020 patient still intubated on mechanical ventilation. AC mode ventila tion with rate 20, tidal volume 400, FiO2 45% and PEEP 12. patient with no fever. Patient currently with sedation of propofol. Patient received hemodialysis yesterday with approximately 3 L removed. 01/30/2020. Patient still on mechanical ventilation. AC mode ventilation with rate 20, tidal volume 400, FiO2 45% and PEEP 8. Patient with elevated alkaline phosphatase. Check abdominal ultrasound. 01/31/2020. Patient still on mechanical ventilation. PSV mode ventilation with FiO2 50% and PEEP 8 and PS=12. Follow-up abdominal ultrasound for elevated alkaline phosphatase 02/01/2020. Patient currently with PSV FiO2 50%, pressure support 12, PEEP 8. Continue PSV trials per pulmonary. Continue Levophed to maintain MAP greater than 65. Continue propofol for sedation. 02/02/2020. Patient currently on AC mode ventilation rate 20, tidal volume 450, FiO2 50% and PEEP of 6. ABG with pH of 7.31, PCO2 56.4, and PO2 85. Patient confirmed COVID-19 positive on 01/17/2020. Patient with MOSF and guarded prognosis. Follow-up abdominal ultrasound (ordered 3 days ago) for elevated alkaline phosphatase and fevers. 02/03/2020. Patient continues on mechanical ventilation AC mode with rate 20, tidal volume 450 and PEEP of 8. Patient still with temperature 100.5. Patient off sedation but requiring Levophed at 2 mics. Patient with an episode of hypoglycemia yesterday requiring D5 half-normal. Continue to monitor for hypoglycemia. Patient with MOSF and guarded prognosis. Follow-up abdominal ultrasound (ordered 4 days ago) for elevated alkaline phosphatase and fevers. 02/04/2020. Patient continues on mechanical ventilation AC mode with rate 20, tidal volume 450, FiO2 50% and PEEP of 8. Patient continues to have fevers. Patient currently on Levophed. Continue pressors to maintain map greater than 65. Hemoglobin 6.9-1 unit PRBCs ordered. Patient may be able to wean off of Levophed with volume resuscitation of PRBCs. Follow-up abdominal ultrasound (ordered 5 days ago) for elevated alkaline phosphatase and fevers. Patient's prognosis remains guarded. 02/05/2020 patient with covid-19 infection with acute resp failure, intubated, still on vent. Now off Levophed since 02/0302/06/2020 patient with Covid-19 infection. fever yesterday, none today. Continuje current management. Prognosis guarded. 02/07/2020 patient with Covid-19 infection. Still intubated, on vent. Ongoig fever. DNR code status. prognosis remains guarded. 02/08/2020 patient with Covid-19 infection. Still intubated. Ongoing weaning attempts. I called and gave update to , Mr. Davis Medina yesterday. 02/09/2020 patient with Covid-19. No fever X 48 hrs. Repeat covid-19 test negative. I discussed with yesterday 02/08/20. 02/10/2020 Patient with Covid-19. No more fever 02/11/2020 Patient with Covid 19 infection,still intubated, on vent. Plan is to arrange transfer o [facility], medical case worker working on it. 02/12/2020. Continue steroids for 7 days followed by taper per ID recomme ndations. Antibiotics completed. Patient will likely need trach and LTAC placement. 02/13/2020. I attempted to call her Davis Ramsey to follow-up with regards to consent for trach and PEG. No answer. Await decision in regards to further goals of care. I discussed the case with pulmonary. Continue PSB trials. Continue hemodialysis per renal. The high probability of a clinically significant, sudden or life threatening deterioration of the [immunologic and respiratory] system(s) required my full and direct attention, intervention and personal management. The aggregate critical care time was [31] minutes. This time is in addition to time spent performing reported procedures but includes the following: [x] Data Review and interpretation [x] Patient assessment and monitoring of vital signs [x] Documentation [x] Medication orders and management History Interval history: Patient on mechanical ventilation. Hospitalist Physical - Constitutional Vitals: Temp Pulse Resp BP Pulse Ox 97.5 F L 91 H 18 158/72 99 02/13/20 08:00 02/13/20 10:00 02/13/20 10:00 02/13/20 10:00 02/13/20 10:00 General appearance: Present: no acute distress - EENT Eyes: Present: PERRL, EOM intact ENT: hearing intact, clear oral mucosa, dentition normal - Neck Neck: Present: supple, normal ROM - Respiratory Respiratory effort: normal Respiratory: bilateral: CTA - Cardiovascular Rhythm: regular Heart Sounds: Present: S1 & S2. Absent: gallop, rub - Extremities Extremities: no ischemia, No edema, Full ROM - Abdominal General gastrointestinal: soft, non-tender, non-distended, normal bowel sounds - Integumentary Integumentary: Present: clear, warm, dry - Neurologic Neurologic: CNII-XII intact, moves all extremities BREEZY score - Breezy Score Age > 65: (1) Yes Aspirin use within the Past 7 Days: (1) Yes 3 or more CAD Risk Factors: (1) Yes 2 or more Angina events in past 24 hrs: (1) Yes Known CAD with more than 50% Stenosis: (0) No Elevated Cardiac Markers: (0) No ST Deviation Greater than 0.5mm: (0) No BREEZY Score: 4 Results - Labs CBC & Chem 7: 02/12/20 05:00 02/13/20 08:39 Labs: Laboratory Last Values WBC 31.3 K/mm3 (4.5-11.0) H 02/12/20 05:00 RBC 2.79 M/mm3 (3.65-5.03) L 02/12/20 05:00 Hgb 8.0 gm/dl (10.1-14.3) L 02/12/20 05:00 Hct 25.4 % (30.3-42.9) L 02/12/20 05:00 MCV 91 fl (79-97) 02/12/20 05:00 MCH 29 pg (28-32) 02/12/20 05:00 MCHC 32 % (30-34) 02/12/20 05:00 RDW 18.4 % (13.2-15.2) H 02/12/20 05:00 Plt Count 566 K/mm3 (140-440) H 02/12/20 05:00 Lymph % (Auto) Flatbed Driver 02/03/20 03:59 [place] % (Auto) Flatbed Driver 02/03/20 03:59 Eos % (Auto) Flatbed Driver 02/03/20 03:59 Baso % (Auto) Flatbed Driver 02/03/20 03:59 Lymph # Flatbed Driver 02/03/20 03:59 [place] # Flatbed Driver 02/03/20 03:59 Eos # Flatbed Driver 02/03/20 03:59 Baso # Flatbed Driver 02/03/20 03:59 Add Manual Diff Complete 02/05/20 04:35 Total Counted 100 02/05/20 04:35 Seg Neutrophils % Flatbed Driver 02/05/20 04:35 Seg Neuts % (Manual) 96.0 % (40.0-70.0) H 02/05/20 04:35 Band Neutrophils % 0 % 02/05/20 04:35 Lymphocytes % (Manual) 1.0 % (13.4-35.0) L 02/05/20 04:35 Reactive Lymphs % (Man) 0 % 02/05/20 04:35 Monocytes % (Manual) 1.0 % (0.0-7.3) 02/05/20 04:35 Eosinophils % (Manual) 2.0 % (0.0-4.3) 02/05/20 04:35 Basophils % (Manual) 0 % (0.0-1.8) 02/05/20 04:35 Metamyelocytes % 0 % 02/05/20 04:35 Myelocytes % 0 % 02/05/20 04:35 Promyelocytes % 0 % 02/05/20 04:35 Blast Cells % 0 % 02/05/20 04:35 Nucleated RBC % Not Reportable 02/05/20 04:35 Seg Neutrophils # Flatbed Driver 02/03/20 03:59 Seg Neutrophils # Man 23.4 K/mm3 (1.8-7.7) H 02/05/20 04:35 Band Neutrophils # 0.0 K/mm3 02/05/20 04:35 Lymphocytes # (Manual) 0.2 K/mm3 (1.2-5.4) L 02/05/20 04:35 Abs React Lymphs (Man) 0.0 K/mm3 02/05/20 04:35 Monocytes # (Manual) 0.2 K/mm3 (0.0-0.8) 02/05/20 04:35 Eosinophils # (Manual) 0.5 K/mm3 (0.0-0.4) H 02/05/20 04:35 Basophils # (Manual) 0.0 K/mm3 (0.0-0.1) 02/05/20 04:35 Metamyelocytes # 0.0 K/mm3 02/05/20 04:35 Myelocytes # 0.0 K/mm3 02/05/20 04:35 Promyelocytes # 0.0 K/mm3 02/05/20 04:35 Blast Cells # 0.0 K/mm3 02/05/20 04:35 WBC Morphology Not Reportable 02/05/20 04:35 Hypersegmented Neuts Not Reportable 02/05/20 04:35 Hyposegmented Neuts Not Reportable 02/05/20 04:35 Hypogranular Neuts Not Reportable 02/05/20 04:35 Smudge Cells Not Reportable 02/05/20 04:35 Toxic Granulation Not Reportable 02/05/20 04:35 Toxic Vacuolation Not Reportable 02/05/20 04:35 Dohle Bodies Not Reportable 02/05/20 04:35 Pelger-Huet Anomaly Not Reportable 02/05/20 04:35 Armando Rods Not Reportable 02/05/20 04:35 Platelet Estimate Consistent w auto 02/05/20 04:35 Clumped Platelets Not Reportable 02/05/20 04:35 Plt Clumps, EDTA Not Reportable 02/05/20 04:35 Large Platelets Not Reportable 02/05/20 04:35 Giant Platelets Not Reportable 02/05/20 04:35 Platelet Satelliting Not Reportable 02/05/20 04:35 Plt Morphology Comment Not Reportable 02/05/20 04:35 RBC Morphology Not Reportable 02/05/20 04:35 Dimorphic RBCs Not Reportable 02/05/20 04:35 Polychromasia Not Reportable 02/05/20 04:35 Hypochromasia Rare 02/05/20 04:35 Poikilocytosis Not Reportable 02/05/20 04:35 Anisocytosis Few 02/05/20 04:35 Microcytosis Not Reportable 02/05/20 04:35 Macrocytosis Rare 02/05/20 04:35 Spherocytes Not Reportable 02/05/20 04:35 Pappenheimer Bodies Not Reportable 02/05/20 04:35 Sickle Cells Not Reportable 02/05/20 04:35 Target Cells Not Reportable 02/05/20 04:35 Tear Drop Cells Not Reportable 02/05/20 04:35 Ovalocytes Not Reportable 02/05/20 04:35 Helmet Cells Not Reportable 02/05/20 04:35 Vu-[place] Bodies Not Reportable 02/05/20 04:35 [place] Rings Not Reportable 02/05/20 04:35 P[place]let Cells Not Reportable 02/05/20 04:35 Bite Cells Not Reportable 02/05/20 04:35 Crenated Cell Not Reportable 02/05/20 04:35 Elliptocytes Not Reportable 02/05/20 04:35 Acanthocytes (Spur) Not Reportable 02/05/20 04:35 Rouleaux Not Reportable 02/05/20 04:35 Hemoglobin C Crystals Not Reportable 02/05/20 04:35 Schistocytes Not Reportable 02/05/20 04:35 Malaria parasites Not Reportable 02/05/20 04:35 Ney Bodies Not Reportable 02/05/20 04:35 Hem Pathologist Commnt No 02/05/20 04:35 PT 15.6 Sec. (12.2-14.9) H 01/09/20 12:55 INR 1.22 (0.87-1.13) H 01/09/20 12:55 APTT 31.5 Sec. (24.2-36.6) 01/09/20 12:55 D-Dimer 2896.73 ng/mlDDU (0-234) H 02/05/20 13:55 Heparin Anti-Xa Level 0.77 U.I./ml (0.3-0.7) H 02/02/20 05:44 ABG pH 7.351 pH Units (7.350-7.450) 02/08/20 20:45 ABG pCO2 58.7 mm Hg 02/08/20 20:45 ABG pO2 79.1 mm Hg (80.0-90.0) L 02/08/20 20:45 ABG HCO3 31.7 mmol/L (20.0-26.0) H 02/08/20 20:45 ABG O2 Saturation 95.6 % (95.0-99.0) 02/08/20 20:45 ABG O2 Content 17.0 (0.0-44) 02/08/20 20:45 ABG Base Excess 4.6 mmol/L (-2.0-3.0) H 02/08/20 20:45 ABG Hemoglobin 12.9 gm/dl (12.0-16.0) 02/08/20 20:45 ABG Carboxyhemoglobin 1.7 % (0.0-5.0) 02/08/20 20:45 ABG Methemoglobin 0.5 % (0.0-1.5) 02/08/20 20:45 Oxyhemoglobin 93.5 % (95.0-99.0) L 02/08/20 20:45 FiO2 40 % 02/08/20 20:45 Sodium 135 mmol/L (137-145) L 02/13/20 08:39 Potassium 4.9 mmol/L (3.6-5.0) 02/13/20 08:39 Chloride 93.8 mmol/L (98-107) L 02/13/20 08:39 Carbon Dioxide 28 mmol/L (22-30) 02/13/20 08:39 Anion Gap 18 mmol/L 02/13/20 08:39 BUN 72 mg/dL (7-17) H 02/13/20 08:39 Creatinine 2.2 mg/dL (0.7-1.2) H 02/13/20 08:39 Estimated GFR 27 ml/min 02/13/20 08:39 BUN/Creatinine Ratio 33 % 02/13/20 08:39 Glucose 212 mg/dL (65-100) H 02/13/20 08:39 POC Glucose 247 (70-105) H 02/13/20 05:30 Hemoglobin A1c 5.0 % (4-6) 01/10/20 06:54 Calcium 9.1 mg/dL (8.4-10.2) 02/13/20 08:39 Phosphorus 3.30 mg/dL (2.5-4.5) 01/12/20 16:01 Magnesium 2.00 mg/dL (1.7-2.3) 01/13/20 06:11 Ferritin > 2000.0 ng/mL (13.0-400.0) H 02/05/20 13:55 Total Bilirubin 0.50 mg/dL (0.1-1.2) 02/02/20 05:44 Direct Bilirubin 0.3 mg/dL (0-0.2) H 02/02/20 05:44 Indirect Bilirubin 0.2 mg/dL 02/02/20 05:44 AST 179 units/L (5-40) H 02/02/20 05:44 ALT 106 units/L (7-56) H 02/02/20 05:44 Alkaline Phosphatase 557 units/L (35-129) H 02/02/20 05:44 Lactate Dehydrogenase 311 units/L (91-180) H 02/05/20 13:55 Troponin T 0.315 ng/mL (0.00-0.029) H* 01/10/20 06:54 C-Reactive Protein 17.30 mg/dL (0.00-1.30) H 02/05/20 13:55 NT-Pro-B Natriuret Pep 82958 pg/mL (0-900) H 01/09/20 12:55 Total Protein 6.1 g/dL (6.3-8.2) L 02/02/20 05:44 Albumin 2.3 g/dL (3.9-5) L 02/02/20 05:44 Albumin/Globulin Ratio 0.6 % 02/02/20 05:44 Triglycerides 56 mg/dL (2-149) 01/30/20 04:04 Cholesterol 123 mg/dL (50-199) 01/09/20 12:55 LDL Cholesterol Direct 66 mg/dL (50-130) 01/09/20 12:55 HDL Cholesterol 47 mg/dL (40-59) 01/09/20 12:55 Cholesterol/HDL Ratio 2.61 % 01/09/20 12:55 Random Vancomycin 23.9 ug/mL (0-40.0) 02/08/20 04:56 Coronavirus (PCR) Negative (Negative) 02/08/20 10:06 Hepatitis A IgM Ab Non-reactive (NonReactive) 01/21/20 23:40 Hep Bs Antigen Non-reactive (Negative) 01/21/20 23:40 Hep B Core IgM Ab Non-reactive (NonReactive) 01/21/20 23:40 Hepatitis C Antibody Non-reactive (NonReactive) 01/21/20 23:40 Miscellaneous Test See scanned result 01/11/20 Unknown Miscellaneous Test See scanned result 01/11/20 Unknown Blood Type O POSITIVE 02/04/20 10:47 Antibody Screen Negative 02/04/20 10:47 Crossmatch See Detail 02/04/20 10:47 Pleitez/IV: Voiding Method Indwelling Catheter IV Catheter Type [Left Chest] Infusaport IV Catheter Type [Right Peripheral IV External Jugular] IV Catheter Type [Left INT / Saline Lock External Jugular] IV Catheter Type [Left Upper AV Graft arm] Active Medications - Current Medications Current Medications: Generic Name Dose Route Start Last Admin Trade Name Tobyq PRN Reason Stop Dose Admin Acetaminophen 650 mg 01/09/20 16:33 02/05/20 05:58 Tylenol PO 650 mg Q4H PRN Administration Pain MILD(1-3)/Fever >100.5/MEANS Lipase/Protease/Amylase 1 each 01/23/20 14:28 02/07/20 13:18 Pancreazangela Albarran 10,500 Unit FEEDTUBE 1 each PRN PRN Administration For Clogged Feeding Tube Atorvastatin Calcium 40 mg 01/09/20 22:00 02/12/20 21:39 Lipitor PO 40 mg QHS PHILLY Administration Dextrose 50 ml 01/23/20 07:26 02/02/20 11:33 D50w (25gm) Syringe IV 50 ml Q30MIN PRN Administration BLOOD GLUCOSE < 70 Dextrose 25 ml 01/24/20 08:58 01/24/20 13:41 D50w (25gm) Syringe IV 25 ml Q4H PRN Administration BG < 80 MG/DL Docusate Sodium 100 mg 01/25/20 22:00 02/13/20 09:20 Colace PO 100 mg BID PHILLY Administration Epoetin Helio 20,000 unit 02/04/20 12:00 02/04/20 13:00 Procrit SUB-Q 20,000 unit SILVERIO PHILLY Administration Famotidine 20 mg 01/09/20 22:00 02/13/20 09:20 Pepcid PO 20 mg DAILY PHILLY Administration Heparin Sodium (Porcine) 5,000 unit 02/07/20 10:00 02/13/20 09:20 Heparin SUB-Q 5,000 unit Q12HR PHILLY Administration Norepinephrine 4 mg in 250 mls @ 7.5 mls/hr 01/21/20 18:00 02/11/20 15:00 Levophed Drip 4 Mg/Ns 250 Ml IV 0 mcg/min TITR PHILLY 0 mls/hr Titration Protocol 2 MCG/MIN Sodium Chloride 100 mls @ 999 mls/hr 02/12/20 08:17 Nacl 0.9% IV SILVERIO PRN Hypotension Insulin Glargine 15 units 02/10/20 13:00 02/13/20 09:20 Lantus SUB-Q 15 units DAILY PHILLY Administration Insulin Human Lispro 0 unit 02/07/20 12:00 02/13/20 05:44 Humalog SUB-Q 3 unit Q6HR PHILLY Administration Protocol Lorazepam 2 mg 01/23/20 15:36 Ativan IV Q10MIN PRN Agitation Methylprednisolone Sodium Succinate 40 mg 02/07/20 14:00 02/13/20 05:44 Solu-Medrol IV 40 mg Q8HR PHILLY Administration Ondansetron HCl 4 mg 01/09/20 16:33 01/20/20 10:19 Zofran IV 4 mg Q8H PRN Administration Nausea And Vomiting Simple Syrup 15 ml 01/23/20 14:28 Simple Syrup FEEDTUBE PRN PRN Hypoglycemia Simple Syrup 30 ml 01/23/20 14:28 Simple Syrup FEEDTUBE PRN PRN Hypoglycemia Sodium Bicarbonate 325 mg 01/23/20 14:28 Sodium Bicarbonate FEEDTUBE PRN PRN For Clogged Feeding Tube Sodium Chloride 10 ml 01/09/20 22:00 02/13/20 09:21 Sodium Chloride Flush Syringe 10 Ml IV 10 ml BID PHILLY Administration Sodium Chloride 10 ml 03/25/20 16:33 Sodium Chloride Flush Syringe 10 Ml IV PRN PRN LINE FLUSH Nutrition/Malnutrition Assess - Dietary Evaluation Nutrition/Malnutrition Findings: Nutrition Notes Start: 01/17/20 13:49 Freq: Status: Active Protocol: Document 02/12/20 13:29 LM (Rec: 02/12/20 13:35 LM [email or web address]) Nutrition Notes Initial or Follow up Reassessment Current Diagnosis CKD (stage V CKD),Diabetes, Hypertension,Heart Failure, Respiratory Failure Other Pertinent Diagnosis on HD, Bilat pneu, COVID-19 (+ ) Current Diet Nepro 1.8 at 35ml/hr Labs/Tests Na 136 K 3 BUN 102 Pertinent Medications Solumedrol Humalog Height 5 ft 6 in Weight 63.3 kg [place] Body Weight (kg) 59.09 BMI 22.5 Weight change and time frame Wt change noted Subjective/Other Information Pt is tolerating TF at gaol rate. Pt to get trach and PEG. 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 Yes Is Patient Ambulatory and/or Out of Bed No REE-([facility]-confined to bed) [phone] Calculation Used for Recommendations [facility] Additional Notes Protein: 91-151g (1.2-2g/kg) Fluid: per MD Nutrition Intervention Change Diet Order: Continue TF Nutrition Support: Nepro 1.8 at 35ml/hr (goal rate) Flush 50ml q6hr for hyponatremia Flush 150ml q4h once hyponatremia resolves Kcal 1,512 Protein (gm) 68 Fluid (mL) 611 Goal #1 TF tolerance Goal #2 Meet at least 75% of energy and protein needs via TF Anticipated Discharge Needs: unable to determine at this time Follow-Up By: 02/15/20 Additional Comments F/U for TF tolerance, wt, Na lab
--- NOTE | 2020-02-13 13:48 | Progress Note ---
Assessment and Plan 64-year-old female with ventilator dependent respiratory failure Plan: 1. Continue vent management per ICU team on 02/11 - I had a long discussion with the patient's Davis Ramsey. We discussed the indication for tracheostomy and PEG tube placement. We also discussed the alternatives to proceeding with tracheostomy and PEG tube. Per Mr. Ramsey, the patient was self-sufficient with her ADLs prior to this hospitalization. He states in their past discussions with each other, she did not want to remain on mechanical ventilation for prolonged period of time. He is unsure about proceeding with tracheostomy and PEG tube and would like to discuss this with the rest of his family. He states he will have a decision tomorrow. I will follow-up with Mr. Ramsey tomorrow. 02/12 - Once again spoke with the patient's Davis Ramsey and explained indication for tracheostomy and PEG tube. He stated again that he and his had discussed being on life support and both of them agreed this is not what they would want. His family has left the final decision on Mr. Ramsey. I offered him the option of hospice and he would like to know more information about this. I have discussed this with SERGIO Gomez who will give Mr. Ramsey a call and explain this option. Will await final decision from patient's regarding trach/peg. Thank you, please call with questions or concerns Subjective Date of service: 02/13/20 Narrative: Patient seen and examined. No acute change in condition. No fevers, chills. Remains on the ventilator. Objective Vital Signs - 12hr 02/13/20 02/13/20 02/13/20 02:00 03:00 04:00 Temperature 98.7 F Pulse Rate 90 94 H 92 H Pulse Rate [ 91 H From Monitor] Respiratory 26 H 22 24 Rate Blood Pressure 147/68 143/70 141/64 O2 Sat by Pulse 94 97 83 L Oximetry 02/13/20 02/13/20 02/13/20 04:11 05:00 06:00 Temperature Pulse Rate 94 H 95 H 93 H Pulse Rate [ From Monitor] Respiratory 18 20 Rate Blood Pressure 141/64 153/64 178/79 O2 Sat by Pulse 94 95 100 Oximetry 02/13/20 02/13/20 02/13/20 07:00 08:00 08:21 Temperature 97.5 F L Pulse Rate 93 H 87 87 Pulse Rate [ 90 From Monitor] Respiratory 18 23 Rate Blood Pressure 162/70 155/73 155/72 O2 Sat by Pulse 100 96 100 Oximetry 02/13/20 02/13/20 02/13/20 09:00 10:00 11:00 Temperature Pulse Rate 85 91 H 85 Pulse Rate [ From Monitor] Respiratory 21 18 24 Rate Blood Pressure 159/78 158/72 158/72 O2 Sat by Pulse 99 100 Oximetry 02/13/20 02/13/20 12:00 12:34 Temperature Pulse Rate 93 H 96 H Pulse Rate [ 90 From Monitor] Respiratory 22 Rate Blood Pressure 156/69 156/69 O2 Sat by Pulse 100 100 Oximetry - General physical appearance Narrative Exam: Gen.: On ventilator, unresponsive. Opens eyes spontaneously but does not follow commands. Does not respond to painful stimuli. ENT: ET tube and OG tube in place. CV: S1, S2 present Respiratory: No audible wheezes Abdomen: Soft, nondistended, nontender. Tube feeds running. No rebound, rigidity, guarding Extremities: No clubbing, cyanosis, edema - Labs 02/12/20 05:00 02/13/20 08:39 Diabetes panel 02/13/20 Range/Units 08:39 Sodium 135 L (137-145) mmol/L Potassium 4.9 (3.6-5.0) mmol/L Chloride 93.8 L (98-107) mmol/L Carbon Dioxide 28 (22-30) mmol/L BUN 72 H (7-17) mg/dL Creatinine 2.2 H (0.7-1.2) mg/dL Glucose 212 H (65-100) mg/dL Calcium 9.1 (8.4-10.2) mg/dL Calcium panel 02/13/20 Range/Units 08:39 Calcium 9.1 (8.4-10.2) mg/dL Pituitary panel 02/13/20 Range/Units 08:39 Sodium 135 L (137-145) mmol/L Potassium 4.9 (3.6-5.0) mmol/L Chloride 93.8 L (98-107) mmol/L Carbon Dioxide 28 (22-30) mmol/L BUN 72 H (7-17) mg/dL Creatinine 2.2 H (0.7-1.2) mg/dL Glucose 212 H (65-100) mg/dL Calcium 9.1 (8.4-10.2) mg/dL Adrenal panel 02/13/20 Range/Units 08:39 Sodium 135 L (137-145) mmol/L Potassium 4.9 (3.6-5.0) mmol/L Chloride 93.8 L (98-107) mmol/L Carbon Dioxide 28 (22-30) mmol/L BUN 72 H (7-17) mg/dL Creatinine 2.2 H (0.7-1.2) mg/dL Glucose 212 H (65-100) mg/dL Calcium 9.1 (8.4-10.2) mg/dL
--- NOTE | 2020-02-13 15:26 | Progress Note ---
Assessment and Plan Cultures: 01/10/2020 blood culture: No growth 01/21/2020 sputum culture: No growth 01/25/2020 blood culture: No growth 02/04/2020 blood culture: no growth A/P: 64/F with #Sepsis with shock: likely due to severe COVID pneumonia. Completed empiric Cefepime x 5 days. Now back on antibiotics. #Severe COVID pneumonia: very elevated inflammatory markers. S/p ivermectin x 1 on 01/21/2020 (off label use). S/p hydroxychloroquine with zinc x 5 days. Markers remain elevated. #Acute hypoxic resp failure: intubated, on the vent. Vent requirements not too high #ESRD on HD: nephrology following. #Thrombocytopenia: resolved #Elevated LFTs: etiology unclear. Bilirubin is normal. Alk phos and transaminases elevated. RUQ US showed no gall bladder, CBD appeared normal. Recs: continue steroids for 7 days followed by taper (started 02/07/2020) Possible trach + LTACH placement. has repeat negative testing in house. Family discussing hospice and palliative as well. Lloyd Loza MD [facility] ([facility] M: [phone] O: [phone] F: [phone] Subjective Date of service: 02/13/20 Principal diagnosis: Pneumonia Interval history: Afebrile, remains on vent with minimal settings. Objective - Exam Narrative Exam: Physical Exam (reviewed in chart due to PPE conservation) Constitutional: intubated, on the vent Head, Ears, Nose: normocephalic, atraumatic Eyes: limited due to PPE conservation strategy Neck: intubated Oral: intubated Cardiovascular: limited due to PPE conservation strategy Respiratory: limited due to PPE conservation strategy GI: limited due to PPE conservation strategy Musculoskeletal: limited due to PPE conservation strategy Skin: limited due to PPE conservation strategy Hem/Lymphatic: limited due to PPE conservation strategy Psych: no agitation Neurological: intubated, on the vent, exam limited - Constitutional Vitals: Vital Signs Temp Pulse Resp BP Pulse Ox 97.7 F 96 H 18 162/73 99 02/13/20 12:00 02/13/20 14:00 02/13/20 14:00 02/13/20 14:00 02/13/20 14:00 Temperature -Last 24 Hours Temperature 97.7 F Temperature 97.5 F Temperature 98.7 F Temperature 98.2 F Temperature 98.4 F Temperature 97.9 F Temperature 98.2 F - Labs CBC & Chem 7: 02/12/20 05:00 02/13/20 08:39 Labs: Abnormal lab results 02/12/20 02/12/20 02/13/20 Range/Units 18:58 23:36 05:30 Sodium (137-145) mmol/L Chloride (98-107) mmol/L BUN (7-17) mg/dL Creatinine (0.7-1.2) mg/dL Glucose (65-100) mg/dL POC Glucose 197 H 166 H 247 H (70-105) 02/13/20 02/13/20 Range/Units 08:39 13:19 Sodium 135 L (137-145) mmol/L Chloride 93.8 L (98-107) mmol/L BUN 72 H (7-17) mg/dL Creatinine 2.2 H (0.7-1.2) mg/dL Glucose 212 H (65-100) mg/dL POC Glucose 244 H (70-105)
--- NOTE | 2020-02-13 16:06 | Progress Note ---
Assessment and Plan - Patient Problems (1) End stage renal disease on dialysis Current Visit: No Status: Chronic Plan to address problem: Worsening azotemia. Will dialyze again today for solute clearance. hemodialysis again tomorrow as scheduled. 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 (4) Volume overload Current Visit: Yes Status: Acute Qualifiers: Plan to address problem: end-stage renal disease with fluid overload. Improved with fluid removal on dialysis. (5) Anemia in CKD (chronic kidney disease) Current Visit: Yes Status: Acute Qualifiers: Chronic kidney disease stage: on chronic dialysis Qualified Code(s): N18.6 - End stage renal disease; D63.1 - Anemia in chronic kidney disease; Z99.2 - Dependence on renal dialysis Plan to address problem: give erythropoietin on dialysis (6) T2DM (type 2 diabetes mellitus) Current Visit: Yes Status: Acute Qualifiers: Diabetes mellitus retirement insulin use: unspecified terminologist insulin use status Plan to address problem: blood sugar management by primary attending. (7) Hypertensive chronic kidney disease with stage 5 chronic kidney disease or end stage renal disease Current Visit: No Status: Chronic Plan to address problem: patient is on vasopressor. Follow blood pressure current medications Subjective Date of service: 02/13/20 Principal diagnosis: Pneumonia Interval history: Patient is intubated on the ventilator in intensive care unit. Not on vasopressor. Patient was seen and examined today remains sedated on the ventilatordid not lavage the going and doing well for youreview. JOSE GARCIA ER so I will just calling to find out what you know Objective - Exam Narrative Exam: elderly -[place] female lying in bed intubated on the ventilator HEENT: Normocephalic atraumatic, pupils equal round reactive to light ETT intact Neck: Supple, no venous distention, no goiter CVS: S1S2 RRR No murmur, rub or gallop Lungs: Coarse Bs, no use of accessory muscles of respiration Abdomen: Full, soft, nontender, no organomegaly no bruit, bowel sounds are present Extremities: No edema, no cyanosis or clubbing Urinary: Deferred Musculo-skeletal: No joint deformities or swelling Neuro: Awake, alert, no focal deficits - Vital Signs Vital signs: Vital Signs - 12hr 02/13/20 02/13/20 02/13/20 04:11 05:00 06:00 Temperature Pulse Rate 94 H 95 H 93 H Pulse Rate [ From Monitor] Respiratory 18 20 Rate Blood Pressure 141/64 153/64 178/79 O2 Sat by Pulse 94 95 100 Oximetry 02/13/20 02/13/20 02/13/20 07:00 08:00 08:21 Temperature 97.5 F L Pulse Rate 93 H 87 87 Pulse Rate [ 90 From Monitor] Respiratory 18 23 Rate Blood Pressure 162/70 155/73 155/72 O2 Sat by Pulse 100 96 100 Oximetry 02/13/20 02/13/20 02/13/20 09:00 10:00 11:00 Temperature Pulse Rate 85 91 H 85 Pulse Rate [ From Monitor] Respiratory 21 18 24 Rate Blood Pressure 159/78 158/72 158/72 O2 Sat by Pulse 99 100 Oximetry 02/13/20 02/13/20 02/13/20 12:00 12:34 13:00 Temperature 97.7 F Pulse Rate 86 96 H 96 H Pulse Rate [ 90 From Monitor] Respiratory 22 17 Rate Blood Pressure 156/69 156/69 165/72 O2 Sat by Pulse 100 100 100 Oximetry 02/13/20 02/13/20 14:00 15:00 Temperature Pulse Rate 96 H 96 H Pulse Rate [ From Monitor] Respiratory 18 19 Rate Blood Pressure 162/73 162/76 O2 Sat by Pulse 99 99 Oximetry - Lab 02/12/20 05:00 02/13/20 08:39 Most recent lab results ABG pH 7.351 pH Units (7.350-7.450) 02/08/20 20:45 ABG pCO2 58.7 mm Hg 02/08/20 20:45 ABG pO2 79.1 mm Hg (80.0-90.0) L 02/08/20 20:45 ABG HCO3 31.7 mmol/L (20.0-26.0) H 02/08/20 20:45 ABG O2 Saturation 95.6 % (95.0-99.0) 02/08/20 20:45 Calcium 9.1 mg/dL (8.4-10.2) 02/13/20 08:39 Phosphorus 3.30 mg/dL (2.5-4.5) 01/12/20 16:01 Magnesium 2.00 mg/dL (1.7-2.3) 01/13/20 06:11 Medications & Allergies - Medications Allergies/Adverse Reactions: Allergies cheese Allergy (Mild, Verified 12/20/19 10:19) Itching iodine Allergy (Mild, Verified 12/20/19 10:16) Anaphylaxis clonidine Allergy (Verified 12/19/19 04:13) Anaphylaxis shellfish derived Adverse Reaction (Verified 12/19/19 04:13) Angioedema Home Medications: Home Medications Medication Instructions Recorded Confirmed Last Taken Type Atorvastatin [Lipitor] 40 mg PO DAILY 11/06/19 01/13/20 01/02/20 10:00 History Acetaminophen [Acetaminophen 8 650 mg PO Q8H PRN #30 tablet.er 11/21/19 01/13/20 01/03/20 22:00 Rx Hour] Cyclobenzaprine HCl [Flexeril 5 MG 5 mg PO QHS PRN #20 tab 11/21/19 01/13/20 01/01/20 22:00 Rx TAB] HYDROcodone/APAP 5-325 [[place] 1 each PO Q6HR PRN #18 tablet 12/13/19 01/13/20 01/01/20 22:00 Rx 5-325 mg TAB] amLODIPine 10 mg PO DAILY 90 Days #90 tab 12/18/19 01/13/20 01/01/20 10:00 Rx Ibuprofen 800 mg PO TID 12/19/19 01/13/20 01/02/20 22:00 History Magnesium Oxide [Mag-Ox] 400 mg PO QDAY 12/19/19 01/13/20 01/03/20 10:00 History diphenhydrAMINE [Benadryl CAP] 25 mg PO Q8HR PRN 12/19/19 01/13/20 01/03/20 21:00 History labetaloL [Labetalol 100mg TAB] 100 mg PO Q8H #90 tablet 12/21/19 01/13/20 01/02/20 10:00 Rx traMADoL [Ultram 50 MG tab] 50 mg PO Q6HR PRN #20 tablet 12/29/19 01/13/20 12/31/19 10:00 Rx DULoxetine [Cymbalta] 30 mg PO QDAY #30 capsule 01/04/20 01/13/20 Unknown Rx Valsartan [Diovan] 80 mg PO DAILY #30 tablet 01/04/20 01/13/20 Unknown Rx Active Medications: Generic Name Dose Route Start Last Admin Trade Name Freq PRN Reason Stop Dose Admin Acetaminophen 650 mg 01/09/20 16:33 02/05/20 05:58 Tylenol PO 650 mg Q4H PRN Administration Pain MILD(1-3)/Fever >100.5/MEANS Lipase/Protease/Amylase 1 each 01/23/20 14:28 02/07/20 13:18 Pancreaze 10,500 Unit FEEDTUBE 1 each PRN PRN Administration For Clogged Feeding Tube Atorvastatin Calcium 40 mg 01/09/20 22:00 02/12/20 21:39 Lipitor PO 40 mg QHS PHILLY Administration Dextrose 50 ml 01/23/20 07:26 02/02/20 11:33 D50w (25gm) Syringe IV 50 ml Q30MIN PRN Administration BLOOD GLUCOSE < 70 Dextrose 25 ml 01/24/20 08:58 01/24/20 13:41 D50w (25gm) Syringe IV 25 ml Q4H PRN Administration BG < 80 MG/DL Docusate Sodium 100 mg 01/25/20 22:00 02/13/20 09:20 Colace PO 100 mg BID PHILLY Administration Epoetin Helio 20,000 unit 02/04/20 12:00 02/04/20 13:00 Procrit SUB-Q 20,000 unit SILVERIO PHILLY Administration Famotidine 20 mg 01/09/20 22:00 02/13/20 09:20 Pepcid PO 20 mg DAILY PHILLY Administration Heparin Sodium (Porcine) 5,000 unit 02/07/20 10:00 02/13/20 09:20 Heparin SUB-Q 5,000 unit Q12HR PHILLY Administration Norepinephrine 4 mg in 250 mls @ 7.5 mls/hr 01/21/20 18:00 02/11/20 15:00 Levophed Drip 4 Mg/Ns 250 Ml IV 0 mcg/min TITR PHILLY 0 mls/hr Titration Protocol 2 MCG/MIN Sodium Chloride 100 mls @ 999 mls/hr 02/12/20 08:17 Nacl 0.9% IV SILVERIO PRN Hypotension Insulin Glargine 15 units 02/10/20 13:00 02/13/20 09:20 Lantus SUB-Q 15 units DAILY PHILLY Administration Insulin Human Lispro 0 unit 02/07/20 12:00 02/13/20 13:34 Humalog SUB-Q 3 unit Q6HR PHILLY Administration Protocol Lorazepam 2 mg 01/23/20 15:36 Ativan IV Q10MIN PRN Agitation Methylprednisolone Sodium Succinate 40 mg 02/07/20 14:00 02/13/20 13:34 Solu-Medrol IV 40 mg Q8HR PHILLY Administration Ondansetron HCl 4 mg 01/09/20 16:33 01/20/20 10:19 Zofran IV 4 mg Q8H PRN Administration Nausea And Vomiting Simple Syrup 15 ml 01/23/20 14:28 Simple Syrup FEEDTUBE PRN PRN Hypoglycemia Simple Syrup 30 ml 01/23/20 14:28 Simple Syrup FEEDTUBE PRN PRN Hypoglycemia Sodium Bicarbonate 325 mg 01/23/20 14:28 Sodium Bicarbonate FEEDTUBE PRN PRN For Clogged Feeding Tube Sodium Chloride 10 ml 01/09/20 22:00 02/13/20 09:21 Sodium Chloride Flush Syringe 10 Ml IV 10 ml BID PHILLY Administration Sodium Chloride 10 ml 01/09/20 16:33 Sodium Chloride Flush Syringe 10 Ml IV PRN PRN LINE FLUSH
[2020-02-13] MEDS ORDERED: EPOETIN ALFA 20,000 UNIT/1 ML INJ ONE (19:17)
[2020-02-14] MEDS: methylPREDNISolone Sod Succinate 40 MG/1 ML INJ IV SCH ×3 (05:49→22:05)
[2020-02-14] MEDS: INSULIN LISPRO 100 UNIT/ML SUB-Q SCH ×3 (05:49→18:30)
[2020-02-14] MEDS: FAMOTIDINE 20 MG TAB PO SCH (09:54)
[2020-02-14] MEDS: INSULIN GLARGINE 100 UNITS/ML SUB-Q SCH (09:54)
[2020-02-14] MEDS: DOCUSATE SODIUM 100 MG/10 ML ORAL LIQD PO SCH (09:54)
[2020-02-14] MEDS: HEPARIN 5,000 UNIT/1 ML VIAL SUB-Q SCH ×2 (09:54→22:05)
--- NOTE | 2020-02-14 10:43 | Progress Note ---
Assessment and Plan Assessment and plan: Suspected COVID- 19 Patient with very elevated inflammatory markers of ferritin, CRP, LDH and d- dimer. Bilateral pneumonia. Continue antibiotics per ID ARDS. Etiology secondary to above. Acute hypoxemic respiratory failure. Continue oxygen to maintain sats greater than 92% Appears stable on HFNC; wean FiO2 then flow Chest pain Stress test neg for ischemia GERD and costochondritis in differential diagnosis Volume overload s/p hemodialysis Nephrology consulted,following Acute on Chronic diastolic CHF exacerbation Secondary to volume overload End stage renal disease on dialysis Nephrology following T2DM (type 2 diabetes mellitus) Continue continue coverage Check hemoglobin A1c Hypertension Continue antihypertensives Hyponatremia Secondary to increased volume--dilutional DVT prophylaxis On heparin and GI prophylaxis 01/11 Covid 19 survey testing sent, nasal swab done 01/10 01/12 Patient has acute resp failure. may need Oxygen on dc. awaiting Covid result 01/13 Still has shortness of breath, awaiting Covid test. 01/14 Pt still dyspneic, await covid testing, Pulse ox 83% 01/16/2020. Patient remains dyspneic. Follow-up COVID testing. 01/17/2020. Patient still requiring large amounts of oxygen. Patient currently with 15 L satting at 95%. Patient with increased inflammatory markers. Follow- up chest x-ray today. 01/18/20--Patient still requiring large amounts of oxygen. Patient currently with 15 L %. Patient with increased inflammatory markers. 01/19/2020 very elevated inflammatory markers- ferritin> 2000, CRP >24, LDH> 600, d-dimer >1000 putting her at high risk for ARDS. Continue hydroxychloroquine 400 mg PO BID for 1 day then 200 mg PO BID for 4 days (total 5 days) with zinc 220 mg PO qday. Continue ceftriaxone. ContinueCOVID [facility]precautions pe [facility]. Continue serial Ferritin, LDH, D-Dimer, CRP every 48h 01/20/2020. Inflammatory markers remain elevated with ferritin 1826, LDH 496, CRP 19.3, and d-dimer 2072. Patient requiring high flow nasal cannula 40L, FiO2 80%. Pulmonary following. Continue antibiotics and Plaquenil. Continue COVID isolationprecautions per [facility] protocol. Patient has a high risk mortality and remains guarded. 01/21/2020. Continue antibiotics and Plaquenil. Continue COVID isolationprecautions per [facility] protocol. Maintain sats of 88% and greater. Still on HFNC, O2 weaned to 95% overnight. Sats documented at 98%. Pulmonary following and reports If patient progresses could give bipap a one hour trial to see if there is improvement, repeat ABG, if not would suggest elective intubation 01/22/2020 Patient still critically ill. Yesterday 01/20 had cardiopulmonary arrest so now intubated in ICU. Prognosis guarded. 01/23/2020 still critically ill. No more fever. Continue vent management. 01/24/20 Still critically ill, remain on vent. Continue current management. Will call . 01/25/20 Patient still critically ill. I called Davis Ramsey and gave update. He wants DNR status and says he will request withdrawal of care if patient does not get better after weekend. I discussed with [employer]. 01/26/20 patient still intubated, on vent. She means a DNR order. Discussed with Nurse 01/26 patient still critically ill, vent dependent. 01/27 patient still intubated, on vent. On levophed to keep MAP>65mmhg 01/29/2020 patient still intubated on mechanical ventilation. AC mode ventila tion with rate 20, tidal volume 400, FiO2 45% and PEEP 12. patient with no fever. Patient currently with sedation of propofol. Patient received hemodialysis yesterday with approximately 3 L removed. 01/30/2020. Patient still on mechanical ventilation. AC mode ventilation with rate 20, tidal volume 400, FiO2 45% and PEEP 8. Patient with elevated alkaline phosphatase. Check abdominal ultrasound. 01/31/2020. Patient still on mechanical ventilation. PSV mode ventilation with FiO2 50% and PEEP 8 and PS=12. Follow-up abdominal ultrasound for elevated alkaline phosphatase 02/01/2020. Patient currently with PSV FiO2 50%, pressure support 12, PEEP 8. Continue PSV trials per pulmonary. Continue Levophed to maintain MAP greater than 65. Continue propofol for sedation. 02/02/2020. Patient currently on AC mode ventilation rate 20, tidal volume 450, FiO2 50% and PEEP of 6. ABG with pH of 7.31, PCO2 56.4, and PO2 85. Patient confirmed COVID-19 positive on 01/17/2020. Patient with MOSF and guarded prognosis. Follow-up abdominal ultrasound (ordered 3 days ago) for elevated alkaline phosphatase and fevers. 02/03/2020. Patient continues on mechanical ventilation AC mode with rate 20, tidal volume 450 and PEEP of 8. Patient still with temperature 100.5. Patient off sedation but requiring Levophed at 2 mics. Patient with an episode of hypoglycemia yesterday requiring D5 half-normal. Continue to monitor for hypoglycemia. Patient with MOSF and guarded prognosis. Follow-up abdominal ultrasound (ordered 4 days ago) for elevated alkaline phosphatase and fevers. 02/04/2020. Patient continues on mechanical ventilation AC mode with rate 20, tidal volume 450, FiO2 50% and PEEP of 8. Patient continues to have fevers. Patient currently on Levophed. Continue pressors to maintain map greater than 65. Hemoglobin 6.9-1 unit PRBCs ordered. Patient may be able to wean off of Levophed with volume resuscitation of PRBCs. Follow-up abdominal ultrasound (ordered 5 days ago) for elevated alkaline phosphatase and fevers. Patient's prognosis remains guarded. 02/05/2020 patient with covid-19 infection with acute resp failure, intubated, still on vent. Now off Levophed since 02/0302/06/2020 patient with Covid-19 infection. fever yesterday, none today. Continuje current management. Prognosis guarded. 02/07/2020 patient with Covid-19 infection. Still intubated, on vent. Ongoig fever. DNR code status. prognosis remains guarded. 02/08/2020 patient with Covid-19 infection. Still intubated. Ongoing weaning attempts. I called and gave update to , Mr. Davis Medina yesterday. 02/09/2020 patient with Covid-19. No fever X 48 hrs. Repeat covid-19 test negative. I discussed with yesterday 02/08/20. 02/10/2020 Patient with Covid-19. No more fever 02/11/2020 Patient with Covid 19 infection,still intubated, on vent. Plan is to arrange transfer o [facility], senior case manager working on it. 02/12/2020. Continue steroids for 7 days followed by taper per ID recomme ndations. Antibiotics completed. Patient will likely need trach and LTAC placement. 02/13/2020. I attempted to call her Davis Ramsey to follow-up with regards to consent for trach and PEG. No answer. Await decision in regards to further goals of care. I discussed the case with pulmonary. Continue PSB trials. Continue hemodialysis per renal. 02/14/2020. Patient continues to remain on mechanical ventilation, AC mode with rate 20, tidal volume 450, FiO2 35% and PEEP of 6. I had a discussion with the spouse Davis Ramsey and he informed that he is willing to move forward with tracheostomy and PEG placement. I have called the surgeon to reevaluate. The high probability of a clinically significant, sudden or life threatening deterioration of the [immunologic and respiratory] system(s) required my full and direct attention, intervention and personal management. The aggregate critical care time was [31] minutes. This time is in addition to time spent performing reported procedures but includes the following: [x] Data Review and interpretation [x] Patient assessment and monitoring of vital signs [x] Documentation [x] Medication orders and management History Interval history: Patient on mechanical ventilation. Hospitalist Physical - Constitutional Vitals: Temp Pulse Resp BP Pulse Ox 98.8 F 102 H 22 133/60 100 02/14/20 04:00 02/14/20 08:15 02/14/20 08:00 02/14/20 08:15 02/14/20 08:15 General appearance: Present: no acute distress - EENT Eyes: Present: PERRL, EOM intact ENT: hearing intact, clear oral mucosa, dentition normal - Neck Neck: Present: supple, normal ROM - Respiratory Respiratory effort: normal Respiratory: bilateral: CTA - Cardiovascular Rhythm: regular Heart Sounds: Present: S1 & S2. Absent: gallop, rub - Extremities Extremities: no ischemia, No edema, Full ROM - Abdominal General gastrointestinal: soft, non-tender, non-distended, normal bowel sounds - Integumentary Integumentary: Present: clear, warm, dry - Neurologic Neurologic: CNII-XII intact, moves all extremities BREEZY score - Breezy Score Age > 65: (1) Yes Aspirin use within the Past 7 Days: (1) Yes 3 or more CAD Risk Factors: (1) Yes 2 or more Angina events in past 24 hrs: (1) Yes Known CAD with more than 50% Stenosis: (0) No Elevated Cardiac Markers: (0) No ST Deviation Greater than 0.5mm: (0) No BREEZY Score: 4 Results - Labs CBC & Chem 7: 02/12/20 05:00 02/13/20 08:39 Labs: Laboratory Last Values WBC 31.3 K/mm3 (4.5-11.0) H 02/12/20 05:00 RBC 2.79 M/mm3 (3.65-5.03) L 02/12/20 05:00 Hgb 8.0 gm/dl (10.1-14.3) L 02/12/20 05:00 Hct 25.4 % (30.3-42.9) L 02/12/20 05:00 MCV 91 fl (79-97) 02/12/20 05:00 MCH 29 pg (28-32) 02/12/20 05:00 MCHC 32 % (30-34) 02/12/20 05:00 RDW 18.4 % (13.2-15.2) H 02/12/20 05:00 Plt Count 566 K/mm3 (140-440) H 02/12/20 05:00 Lymph % (Auto) [employer]working [employer] 02/03/20 03:59 [place] % (Auto) [employer] 02/03/20 03:59 Eos % (Auto) [employer] 02/03/20 03:59 Baso % (Auto) [employer] 02/03/20 03:59 Lymph # [employer] 02/03/20 03:59 [place] # [employer]working [employer]ter 02/03/20 03:59 Eos # [employer]working [employer]ter 02/03/20 03:59 Baso # [employer]working [employer]ter 02/03/20 03:59 Add Manual Diff Complete 02/05/20 04:35 Total Counted 100 02/05/20 04:35 Seg Neutrophils % [employer] 02/05/20 04:35 Seg Neuts % (Manual) 96.0 % (40.0-70.0) H 02/05/20 04:35 Band Neutrophils % 0 % 02/05/20 04:35 Lymphocytes % (Manual) 1.0 % (13.4-35.0) L 02/05/20 04:35 Reactive Lymphs % (Man) 0 % 02/05/20 04:35 Monocytes % (Manual) 1.0 % (0.0-7.3) 02/05/20 04:35 Eosinophils % (Manual) 2.0 % (0.0-4.3) 02/05/20 04:35 Basophils % (Manual) 0 % (0.0-1.8) 02/05/20 04:35 Metamyelocytes % 0 % 02/05/20 04:35 Myelocytes % 0 % 02/05/20 04:35 Promyelocytes % 0 % 02/05/20 04:35 Blast Cells % 0 % 02/05/20 04:35 Nucleated RBC % Not Reportable 02/05/20 04:35 Seg Neutrophils # 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 [employer]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 02/03/20 03:59 Seg Neutrophils # Man 23.4 K/mm3 (1.8-7.7) H 02/05/20 04:35 Band Neutrophils # 0.0 K/mm3 02/05/20 04:35 Lymphocytes # (Manual) 0.2 K/mm3 (1.2-5.4) L 02/05/20 04:35 Abs React Lymphs (Man) 0.0 K/mm3 02/05/20 04:35 Monocytes # (Manual) 0.2 K/mm3 (0.0-0.8) 02/05/20 04:35 Eosinophils # (Manual) 0.5 K/mm3 (0.0-0.4) H 02/05/20 04:35 Basophils # (Manual) 0.0 K/mm3 (0.0-0.1) 02/05/20 04:35 Metamyelocytes # 0.0 K/mm3 02/05/20 04:35 Myelocytes # 0.0 K/mm3 02/05/20 04:35 Promyelocytes # 0.0 K/mm3 02/05/20 04:35 Blast Cells # 0.0 K/mm3 02/05/20 04:35 WBC Morphology Not Reportable 02/05/20 04:35 Hypersegmented Neuts Not Reportable 02/05/20 04:35 Hyposegmented Neuts Not Reportable 02/05/20 04:35 Hypogranular Neuts Not Reportable 02/05/20 04:35 Smudge Cells Not Reportable 02/05/20 04:35 Toxic Granulation Not Reportable 02/05/20 04:35 Toxic Vacuolation Not Reportable 02/05/20 04:35 Dohle Bodies Not Reportable 02/05/20 04:35 Pelger-Huet Anomaly Not Reportable 02/05/20 04:35 Armando Rods Not Reportable 02/05/20 04:35 Platelet Estimate Consistent w auto 02/05/20 04:35 Clumped Platelets Not Reportable 02/05/20 04:35 Plt Clumps, EDTA Not Reportable 02/05/20 04:35 Large Platelets Not Reportable 02/05/20 04:35 Giant Platelets Not Reportable 02/05/20 04:35 Platelet Satelliting Not Reportable 02/05/20 04:35 Plt Morphology Comment Not Reportable 02/05/20 04:35 RBC Morphology Not Reportable 02/05/20 04:35 Dimorphic RBCs Not Reportable 02/05/20 04:35 Polychromasia Not Reportable 02/05/20 04:35 Hypochromasia Rare 02/05/20 04:35 Poikilocytosis Not Reportable 02/05/20 04:35 Anisocytosis Few 02/05/20 04:35 Microcytosis Not Reportable 02/05/20 04:35 Macrocytosis Rare 02/05/20 04:35 Spherocytes Not Reportable 02/05/20 04:35 Pappenheimer Bodies Not Reportable 02/05/20 04:35 Sickle Cells Not Reportable 02/05/20 04:35 Target Cells Not Reportable 02/05/20 04:35 Tear Drop Cells Not Reportable 02/05/20 04:35 Ovalocytes Not Reportable 02/05/20 04:35 Helmet Cells Not Reportable 02/05/20 04:35 [place] Bodies Not Reportable 02/05/20 04:35 [place] Rings Not Reportable 02/05/20 04:35 [place] Cells Not Reportable 02/05/20 04:35 Bite Cells Not Reportable 02/05/20 04:35 Crenated Cell Not Reportable 02/05/20 04:35 Elliptocytes Not Reportable 02/05/20 04:35 Acanthocytes (Spur) Not Reportable 02/05/20 04:35 Rouleaux Not Reportable 02/05/20 04:35 Hemoglobin C Crystals Not Reportable 02/05/20 04:35 Schistocytes Not Reportable 02/05/20 04:35 Malaria parasites Not Reportable 02/05/20 04:35 Ney Bodies Not Reportable 02/05/20 04:35 Hem Pathologist Commnt No 02/05/20 04:35 PT 15.6 Sec. (12.2-14.9) H 03/25/20 12:55 INR 1.22 (0.87-1.13) H 01/09/20 12:55 APTT 31.5 Sec. (24.2-36.6) 01/09/20 12:55 D-Dimer 2896.73 ng/mlDDU (0-234) H 02/05/20 13:55 Heparin Anti-Xa Level 0.77 U.I./ml (0.3-0.7) H 02/02/20 05:44 ABG pH 7.351 pH Units (7.350-7.450) 02/08/20 20:45 ABG pCO2 58.7 mm Hg 02/08/20 20:45 ABG pO2 79.1 mm Hg (80.0-90.0) L 02/08/20 20:45 ABG HCO3 31.7 mmol/L (20.0-26.0) H 02/08/20 20:45 ABG O2 Saturation 95.6 % (95.0-99.0) 02/08/20 20:45 ABG O2 Content 17.0 (0.0-44) 02/08/20 20:45 ABG Base Excess 4.6 mmol/L (-2.0-3.0) H 02/08/20 20:45 ABG Hemoglobin 12.9 gm/dl (12.0-16.0) 02/08/20 20:45 ABG Carboxyhemoglobin 1.7 % (0.0-5.0) 02/08/20 20:45 ABG Methemoglobin 0.5 % (0.0-1.5) 02/08/20 20:45 Oxyhemoglobin 93.5 % (95.0-99.0) L 02/08/20 20:45 FiO2 40 % 02/08/20 20:45 Sodium 135 mmol/L (137-145) L 02/13/20 08:39 Potassium 4.9 mmol/L (3.6-5.0) 02/13/20 08:39 Chloride 93.8 mmol/L (98-107) L 02/13/20 08:39 Carbon Dioxide 28 mmol/L (22-30) 02/13/20 08:39 Anion Gap 18 mmol/L 02/13/20 08:39 BUN 72 mg/dL (7-17) H 02/13/20 08:39 Creatinine 2.2 mg/dL (0.7-1.2) H 02/13/20 08:39 Estimated GFR 27 ml/min 02/13/20 08:39 BUN/Creatinine Ratio 33 % 02/13/20 08:39 Glucose 212 mg/dL (65-100) H 02/13/20 08:39 POC Glucose 239 (70-105) H 02/14/20 05:11 Hemoglobin A1c 5.0 % (4-6) 01/10/20 06:54 Calcium 9.1 mg/dL (8.4-10.2) 02/13/20 08:39 Phosphorus 3.30 mg/dL (2.5-4.5) 01/12/20 16:01 Magnesium 2.00 mg/dL (1.7-2.3) 01/13/20 06:11 Ferritin > 2000.0 ng/mL (13.0-400.0) H 02/05/20 13:55 Total Bilirubin 0.50 mg/dL (0.1-1.2) 02/02/20 05:44 Direct Bilirubin 0.3 mg/dL (0-0.2) H 02/02/20 05:44 Indirect Bilirubin 0.2 mg/dL 02/02/20 05:44 AST 179 units/L (5-40) H 02/02/20 05:44 ALT 106 units/L (7-56) H 02/02/20 05:44 Alkaline Phosphatase 557 units/L (35-129) H 02/02/20 05:44 Lactate Dehydrogenase 311 units/L (91-180) H 02/05/20 13:55 Troponin T 0.315 ng/mL (0.00-0.029) H* 01/10/20 06:54 C-Reactive Protein 17.30 mg/dL (0.00-1.30) H 02/05/20 13:55 NT-Pro-B Natriuret Pep 95040 pg/mL (0-900) H 01/09/20 12:55 Total Protein 6.1 g/dL (6.3-8.2) L 02/02/20 05:44 Albumin 2.3 g/dL (3.9-5) L 02/02/20 05:44 Albumin/Globulin Ratio 0.6 % 02/02/20 05:44 Triglycerides 56 mg/dL (2-149) 01/30/20 04:04 Cholesterol 123 mg/dL (50-199) 01/09/20 12:55 LDL Cholesterol Direct 66 mg/dL (50-130) 01/09/20 12:55 HDL Cholesterol 47 mg/dL (40-59) 01/09/20 12:55 Cholesterol/HDL Ratio 2.61 % 01/09/20 12:55 Random Vancomycin 23.9 ug/mL (0-40.0) 02/08/20 04:56 Coronavirus (PCR) Negative (Negative) 02/08/20 10:06 Hepatitis A IgM Ab Non-reactive (NonReactive) 01/21/20 23:40 Hep Bs Antigen Non-reactive (Negative) 01/21/20 23:40 Hep B Core IgM Ab Non-reactive (NonReactive) 01/21/20 23:40 Hepatitis C Antibody Non-reactive (NonReactive) 01/21/20 23:40 Miscellaneous Test See scanned result 01/11/20 Unknown Miscellaneous Test See scanned result 01/11/20 Unknown Blood Type O POSITIVE 02/04/20 10:47 Antibody Screen Negative 02/04/20 10:47 Crossmatch See Detail 02/04/20 10:47 Pleitez/IV: Voiding Method Indwelling Catheter IV Catheter Type [Left Chest] Infusaport IV Catheter Type [Right Peripheral IV External Jugular] IV Catheter Type [Left INT / Saline Lock External Jugular] IV Catheter Type [Left Upper AV Graft arm] Active Medications - Current Medications Current Medications: Generic Name Dose Route Start Last Admin Trade Name Freq PRN Reason Stop Dose Admin Acetaminophen 650 mg 01/09/20 16:33 02/05/20 05:58 Tylenol PO 650 mg Q4H PRN Administration Pain MILD(1-3)/Fever >100.5/MEANS Lipase/Protease/Amylase 1 each 01/23/20 14:28 02/07/20 13:18 Pancreaze 10,500 Unit FEEDTUBE 1 each PRN PRN Administration For Clogged Feeding Tube Atorvastatin Calcium 40 mg 01/09/20 22:00 02/13/20 21:57 Lipitor PO 40 mg QHS PHILLY Administration Dextrose 50 ml 01/23/20 07:26 02/02/20 11:33 D50w (25gm) Syringe IV 50 ml Q30MIN PRN Administration BLOOD GLUCOSE < 70 Dextrose 25 ml 01/24/20 08:58 01/24/20 13:41 D50w (25gm) Syringe IV 25 ml Q4H PRN Administration BG < 80 MG/DL Docusate Sodium 100 mg 01/25/20 22:00 02/14/20 09:54 Colace PO 100 mg BID PHILLY Administration Epoetin Helio 20,000 unit 02/04/20 12:00 02/04/20 13:00 Procrit SUB-Q 20,000 unit SILVERIO PHILLY Administration Famotidine 20 mg 01/09/20 22:00 02/14/20 09:54 Pepcid PO 20 mg DAILY PHILLY Administration Heparin Sodium (Porcine) 5,000 unit 02/07/20 10:00 02/14/20 09:54 Heparin SUB-Q 5,000 unit Q12HR PHILLY Administration Norepinephrine 4 mg in 250 mls @ 7.5 mls/hr 01/21/20 18:00 02/11/20 15:00 Levophed Drip 4 Mg/Ns 250 Ml IV 0 mcg/min TITR PHILLY 0 mls/hr Titration Protocol 2 MCG/MIN Sodium Chloride 100 mls @ 999 mls/hr 02/12/20 08:17 Nacl 0.9% IV SILVERIO PRN Hypotension Insulin Glargine 15 units 02/10/20 13:00 02/14/20 09:54 Lantus SUB-Q 15 units DAILY PHILLY Administration Insulin Human Lispro 0 unit 02/07/20 12:00 02/14/20 05:49 Humalog SUB-Q 3 unit Q6HR PHILLY Administration Protocol Lorazepam 2 mg 01/23/20 15:36 Ativan IV Q10MIN PRN Agitation Methylprednisolone Sodium Succinate 40 mg 02/07/20 14:00 02/14/20 05:49 Solu-Medrol IV 40 mg Q8HR PHILLY Administration Ondansetron HCl 4 mg 01/09/20 16:33 01/20/20 10:19 Zofran IV 4 mg Q8H PRN Administration Nausea And Vomiting Simple Syrup 15 ml 01/23/20 14:28 Simple Syrup FEEDTUBE PRN PRN Hypoglycemia Simple Syrup 30 ml 01/23/20 14:28 Simple Syrup FEEDTUBE PRN PRN Hypoglycemia Sodium Bicarbonate 325 mg 01/23/20 14:28 Sodium Bicarbonate FEEDTUBE PRN PRN For Clogged Feeding Tube Sodium Chloride 10 ml 01/09/20 22:00 02/14/20 09:55 Sodium Chloride Flush Syringe 10 Ml IV 10 ml BID PHILLY Administration Sodium Chloride 10 ml 01/09/20 16:33 Sodium Chloride Flush Syringe 10 Ml IV PRN PRN LINE FLUSH Nutrition/Malnutrition Assess - Dietary Evaluation Nutrition/Malnutrition Findings: Nutrition Notes Start: 01/17/20 13:49 Freq: Status: Active Protocol: Document 02/12/20 13:29 LM (Rec: 02/12/20 13:35 LM [id number]) Nutrition Notes Initial or Follow up Reassessment Current Diagnosis CKD (stage V CKD),Diabetes, Hypertension,Heart Failure, Respiratory Failure Other Pertinent Diagnosis on HD, Bilat pneu, COVID-19 (+ ) Current Diet Nepro 1.8 at 35ml/hr Labs/Tests Na 136 K 3 BUN 102 Pertinent Medications Solumedrol Humalog Height 5 ft 6 in Weight 63.3 kg [place] Body Weight (kg) 59.09 BMI 22.5 Weight change and time frame Wt change noted Subjective/Other Information Pt is tolerating TF at gaol rate. Pt to get trach and PEG. Percent of energy/protein needs met: 100%/75% Burn Absent Trauma Absent Current % PO Negligible Minimum of two criteria Yes Fluid Accumulation Mild (non-severe) Reduced Stick Puller Strength Measurably Reduced (severe) #1 Nutrition Diagnosis Malnutrition Diagnosis Progress(for reassessment Continues documentation) Is patient on ventilator? Yes Is Patient Ambulatory and/or Out of Bed No REE-([facility]-confined to bed) [phone] Calculation Used for Recommendations [facility] Additional Notes Protein: 91-151g (1.2-2g/kg) Fluid: per Nutrition Intervention Change Diet Order: Continue TF Nutrition Support: Nepro 1.8 at 35ml/hr (goal rate) Flush 50ml q6hr for hyponatremia Flush 150ml q4h once hyponatremia resolves Kcal 1,512 Protein (gm) 68 Fluid (mL) 611 Goal #1 TF tolerance Goal #2 Meet at least 75% of energy and protein needs via TF Anticipated Discharge Needs: unable to determine at this time Follow-Up By: 02/15/20 Additional Comments F/U for TF tolerance, wt, Na lab
--- NOTE | 2020-02-14 11:30 | Progress Note ---
Assessment and Plan 64 y/o female with COVID positive, viral pneumonia with some pulmonary vascular congestion superimposed. 1. Currently on a Rate. PSV trials as tolerated. Per primary, spoke with and he is ok with trach and peg now. Primary has sent a message to surgery. 2. HD per renal. Had yesterday took 3 liters off. 3. Continue to hold BP meds 4. Continue isolation for now. 5. Once trached and pegged, as long as no other changes clinically, would be stable for transfer to LTACH for further weaning. CCT 31 minutes. Subjective Date of service: 02/14/20 Principal diagnosis: Pneumonia Interval history: No acute events. Down to 35%. Currently still on a rate. Took 3 liters off with HD. Objective Vital Signs - 12hr 02/13/20 02/14/20 02/14/20 23:50 00:00 01:00 Temperature 98.3 F 98.3 F Pulse Rate 100 H 102 H 100 H Pulse Rate [ 101 H From Monitor] Respiratory 21 20 Rate Blood Pressure 151/72 142/68 154/64 O2 Sat by Pulse 97 96 96 Oximetry 02/14/20 02/14/20 02/14/20 02:00 03:00 03:50 Temperature Pulse Rate 99 H 90 99 H Pulse Rate [ From Monitor] Respiratory 18 26 H Rate Blood Pressure 135/59 78/42 130/62 O2 Sat by Pulse 96 100 99 Oximetry 02/14/20 02/14/20 02/14/20 04:00 05:00 06:00 Temperature 98.8 F Pulse Rate 96 H 97 H 102 H Pulse Rate [ 96 H From Monitor] Respiratory 20 22 20 Rate Blood Pressure 131/59 128/63 133/60 O2 Sat by Pulse 98 100 Oximetry 02/14/20 02/14/20 02/14/20 07:00 08:00 08:15 Temperature 98.9 F Pulse Rate 95 H 98 H 102 H Pulse Rate [ From Monitor] Respiratory 19 22 Rate Blood Pressure 133/60 135/66 133/60 O2 Sat by Pulse 97 100 Oximetry 02/14/20 02/14/20 02/14/20 09:00 10:00 11:00 Temperature Pulse Rate 96 H 97 H 98 H Pulse Rate [ From Monitor] Respiratory 22 19 19 Rate Blood Pressure 139/72 139/67 137/66 O2 Sat by Pulse 98 100 Oximetry Constitutional: other (orally intubated, not sedated currently on vent. on AC 450 50) Eyes: non-icteric ENT: oropharynx moist Neck: supple Effort: normal Ascultation: Bilateral: rales Cardiovascular: regular rate and rhythm (no mrg) Gastrointestinal: normoactive bowel sounds, soft, non-tender, non-distended Integumentary: normal Extremities: no cyanosis, no edema, pink and warm Neurologic: unable to assess Psychiatric: mood appropriate, affect normal CBC and BMP: 02/12/20 05:00 02/13/20 08:39 ABG, PT/INR, D-dimer: ABG ABG pH 7.351 pH Units (7.350-7.450) 02/08/20 20:45 ABG pCO2 58.7 mm Hg 02/08/20 20:45 ABG pO2 79.1 mm Hg (80.0-90.0) L 02/08/20 20:45 ABG O2 Saturation 95.6 % (95.0-99.0) 02/08/20 20:45 PT/INR, D-dimer PT 15.6 Sec. (12.2-14.9) H 01/09/20 12:55 INR 1.22 (0.87-1.13) H 01/09/20 12:55 D-Dimer 2896.73 ng/mlDDU (0-234) H 02/05/20 13:55 Abnormal lab findings: Abnormal Labs 01/09/20 01/09/20 01/09/20 12:55 12:55 12:55 WBC 4.4 L RBC 3.44 L Hgb Hct MCV RDW 17.0 H Plt Count Lymph % (Auto) 6.8 L [place] % (Auto) 13.6 H Lymph # 0.3 L Seg Neutrophils % 79.0 H Seg Neuts % (Manual) Lymphocytes % (Manual) Nucleated RBC % Seg Neutrophils # Man Lymphocytes # (Manual) Monocytes # (Manual) Eosinophils # (Manual) PT 15.6 H INR 1.22 H D-Dimer Heparin Anti-Xa Level ABG pH ABG pO2 ABG HCO3 ABG O2 Saturation ABG Base Excess ABG Hemoglobin Oxyhemoglobin Sodium 130 L Potassium Chloride 88.9 L Carbon Dioxide 20 L BUN 41 H Creatinine 7.6 H Glucose 115 H POC Glucose Calcium Magnesium Ferritin Direct Bilirubin AST ALT Alkaline Phosphatase 153 H Lactate Dehydrogenase Troponin T 0.382 H* C-Reactive Protein NT-Pro-B Natriuret Pep 23957 H Total Protein Albumin 3.2 L Crossmatch 01/09/20 01/10/20 01/10/20 20:14 00:16 06:54 WBC 3.3 L RBC 3.00 L Hgb 9.2 L Hct 27.8 L MCV RDW 17.2 H Plt Count Lymph % (Auto) 8.9 L [place] % (Auto) 11.5 H Lymph # 0.3 L Seg Neutrophils % 79.1 H Seg Neuts % (Manual) Lymphocytes % (Manual) Nucleated RBC % Seg Neutrophils # Man Lymphocytes # (Manual) Monocytes # (Manual) Eosinophils # (Manual) PT INR D-Dimer Heparin Anti-Xa Level ABG pH ABG pO2 ABG HCO3 ABG O2 Saturation ABG Base Excess ABG Hemoglobin Oxyhemoglobin Sodium Potassium Chloride Carbon Dioxide BUN Creatinine Glucose POC Glucose Calcium Magnesium Ferritin Direct Bilirubin AST ALT Alkaline Phosphatase Lactate Dehydrogenase Troponin T 0.349 H* 0.328 H* C-Reactive Protein NT-Pro-B Natriuret Pep Total Protein Albumin Crossmatch 01/10/20 01/10/20 01/11/20 06:54 06:54 16:45 WBC RBC Hgb Hct MCV RDW Plt Count Lymph % (Auto) [place] % (Auto) Lymph # Seg Neutrophils % Seg Neuts % (Manual) Lymphocytes % (Manual) Nucleated RBC % Seg Neutrophils # Man Lymphocytes # (Manual) Monocytes # (Manual) Eosinophils # (Manual) PT INR D-Dimer Heparin Anti-Xa Level ABG pH ABG pO2 ABG HCO3 ABG O2 Saturation ABG Base Excess ABG Hemoglobin Oxyhemoglobin Sodium 133 L Potassium Chloride 90.6 L Carbon Dioxide BUN 50 H Creatinine 8.4 H Glucose 101 H POC Glucose 106 H Calcium 8.1 L Magnesium Ferritin Direct Bilirubin AST ALT Alkaline Phosphatase 148 H Lactate Dehydrogenase Troponin T 0.315 H* C-Reactive Protein NT-Pro-B Natriuret Pep Total Protein 5.4 L Albumin 2.7 L Crossmatch 01/12/20 01/13/20 01/13/20 16:01 06:11 06:11 WBC 3.1 L RBC 3.25 L Hgb 9.8 L Hct MCV RDW 17.2 H Plt Count 136 L Lymph % (Auto) [place] % (Auto) Lymph # Seg Neutrophils % Seg Neuts % (Manual) Lymphocytes % (Manual) Nucleated RBC % Seg Neutrophils # Man Lymphocytes # (Manual) Monocytes # (Manual) Eosinophils # (Manual) PT INR D-Dimer Heparin Anti-Xa Level ABG pH ABG pO2 ABG HCO3 ABG O2 Saturation ABG Base Excess ABG Hemoglobin Oxyhemoglobin Sodium 135 L Potassium Chloride 93.4 L Carbon Dioxide BUN 19 H Creatinine 4.5 H Glucose 120 H POC Glucose Calcium 7.8 L Magnesium 1.40 L Ferritin Direct Bilirubin AST ALT Alkaline Phosphatase Lactate Dehydrogenase Troponin T C-Reactive Protein NT-Pro-B Natriuret Pep Total Protein Albumin Crossmatch 01/16/20 01/16/20 01/16/20 08:35 11:49 14:11 WBC RBC Hgb Hct MCV RDW Plt Count Lymph % (Auto) [place] % (Auto) Lymph # Seg Neutrophils % Seg Neuts % (Manual) Lymphocytes % (Manual) Nucleated RBC % Seg Neutrophils # Man Lymphocytes # (Manual) Monocytes # (Manual) Eosinophils # (Manual) PT INR D-Dimer Heparin Anti-Xa Level ABG pH ABG pO2 48.4 L ABG HCO3 30.5 H ABG O2 Saturation 81.9 L ABG Base Excess 4.6 H ABG Hemoglobin 10.5 L Oxyhemoglobin 80.1 L Sodium Potassium Chloride Carbon Dioxide BUN Creatinine Glucose POC Glucose 126 H 119 H Calcium Magnesium Ferritin Direct Bilirubin AST ALT Alkaline Phosphatase Lactate Dehydrogenase Troponin T C-Reactive Protein NT-Pro-B Natriuret Pep Total Protein Albumin Crossmatch 01/16/20 01/16/20 01/16/20 15:38 15:38 15:38 WBC RBC Hgb Hct MCV RDW Plt Count Lymph % (Auto) [place] % (Auto) Lymph # Seg Neutrophils % Seg Neuts % (Manual) Lymphocytes % (Manual) Nucleated RBC % Seg Neutrophils # Man Lymphocytes # (Manual) Monocytes # (Manual) Eosinophils # (Manual) PT INR D-Dimer 1104.64 H Heparin Anti-Xa Level ABG pH ABG pO2 ABG HCO3 ABG O2 Saturation ABG Base Excess ABG Hemoglobin Oxyhemoglobin Sodium Potassium Chloride Carbon Dioxide BUN Creatinine Glucose POC Glucose Calcium Magnesium Ferritin > 2000.0 H Direct Bilirubin AST ALT Alkaline Phosphatase Lactate Dehydrogenase 690 H Troponin T C-Reactive Protein 24.10 H NT-Pro-B Natriuret Pep Total Protein Albumin Crossmatch 04/11/0501/18/20 01/18/20 18:11 06:25 06:25 WBC RBC 3.15 L Hgb 9.4 L Hct 29.4 L MCV RDW 17.5 H Plt Count 135 L Lymph % (Auto) 3.8 L [place] % (Auto) Lymph # 0.2 L Seg Neutrophils % 88.8 H Seg Neuts % (Manual) Lymphocytes % (Manual) Nucleated RBC % Seg Neutrophils # Man Lymphocytes # (Manual) Monocytes # (Manual) Eosinophils # (Manual) PT INR D-Dimer Heparin Anti-Xa Level ABG pH ABG pO2 ABG HCO3 ABG O2 Saturation ABG Base Excess ABG Hemoglobin Oxyhemoglobin Sodium Potassium Chloride 96.8 L Carbon Dioxide BUN 26 H Creatinine 4.2 H Glucose 115 H POC Glucose 130 H Calcium 8.2 L Magnesium Ferritin Direct Bilirubin AST ALT Alkaline Phosphatase Lactate Dehydrogenase 537 H Troponin T C-Reactive Protein 17.10 H NT-Pro-B Natriuret Pep Total Protein Albumin Crossmatch 01/18/20 01/18/20 01/18/20 06:25 06:25 12:15 WBC RBC Hgb Hct MCV RDW Plt Count Lymph % (Auto) [place] % (Auto) Lymph # Seg Neutrophils % Seg Neuts % (Manual) Lymphocytes % (Manual) Nucleated RBC % Seg Neutrophils # Man Lymphocytes # (Manual) Monocytes # (Manual) Eosinophils # (Manual) PT INR D-Dimer 938.03 H Heparin Anti-Xa Level ABG pH ABG pO2 66.5 L ABG HCO3 30.1 H ABG O2 Saturation 93.2 L ABG Base Excess 4.6 H ABG Hemoglobin 10.0 L Oxyhemoglobin 91.3 L Sodium Potassium Chloride Carbon Dioxide BUN Creatinine Glucose POC Glucose Calcium Magnesium Ferritin 3105.0 H Direct Bilirubin AST ALT Alkaline Phosphatase Lactate Dehydrogenase Troponin T C-Reactive Protein NT-Pro-B Natriuret Pep Total Protein Albumin Crossmatch 01/20/20 01/20/20 01/20/20 07:37 07:37 07:37 WBC RBC Hgb Hct MCV RDW Plt Count Lymph % (Auto) [place] % (Auto) Lymph # Seg Neutrophils % Seg Neuts % (Manual) Lymphocytes % (Manual) Nucleated RBC % Seg Neutrophils # Man Lymphocytes # (Manual) Monocytes # (Manual) Eosinophils # (Manual) PT INR D-Dimer 2072.25 H Heparin Anti-Xa Level ABG pH ABG pO2 ABG HCO3 ABG O2 Saturation ABG Base Excess ABG Hemoglobin Oxyhemoglobin Sodium Potassium Chloride Carbon Dioxide BUN Creatinine Glucose POC Glucose Calcium Magnesium Ferritin 1826.0 H Direct Bilirubin AST ALT Alkaline Phosphatase Lactate Dehydrogenase 496 H Troponin T C-Reactive Protein 19.30 H NT-Pro-B Natriuret Pep Total Protein Albumin Crossmatch 01/20/20 01/21/20 01/21/20 17:30 03:59 17:35 WBC RBC Hgb Hct MCV RDW Plt Count Lymph % (Auto) [place] % (Auto) Lymph # Seg Neutrophils % Seg Neuts % (Manual) Lymphocytes % (Manual) Nucleated RBC % Seg Neutrophils # Man Lymphocytes # (Manual) Monocytes # (Manual) Eosinophils # (Manual) PT INR D-Dimer Heparin Anti-Xa Level ABG pH ABG pO2 61.1 L 67.4 L ABG HCO3 29.9 H 26.2 H ABG O2 Saturation 91.7 L 93.4 L ABG Base Excess 4.9 H ABG Hemoglobin 9.0 L 9.1 L Oxyhemoglobin 89.5 L 91.1 L Sodium 136 L Potassium Chloride Carbon Dioxide BUN 36 H Creatinine 4.9 H Glucose POC Glucose Calcium Magnesium Ferritin Direct Bilirubin AST ALT Alkaline Phosphatase Lactate Dehydrogenase Troponin T C-Reactive Protein NT-Pro-B Natriuret Pep Total Protein Albumin Crossmatch 01/21/20 01/22/20 01/22/20 Unknown 03:41 03:41 WBC RBC Hgb Hct MCV RDW Plt Count Lymph % (Auto) [place] % (Auto) Lymph # Seg Neutrophils % Seg Neuts % (Manual) Lymphocytes % (Manual) Nucleated RBC % Seg Neutrophils # Man Lymphocytes # (Manual) Monocytes # (Manual) Eosinophils # (Manual) PT INR D-Dimer Heparin Anti-Xa Level ABG pH 7.465 H ABG pO2 48.9 L ABG HCO3 26.6 H ABG O2 Saturation 85.7 L ABG Base Excess ABG Hemoglobin 10.4 L Oxyhemoglobin 83.5 L Sodium Potassium Chloride Carbon Dioxide BUN Creatinine Glucose POC Glucose Calcium Magnesium Ferritin 6071.0 H Direct Bilirubin AST ALT Alkaline Phosphatase Lactate Dehydrogenase 963 H Troponin T C-Reactive Protein 30.00 H NT-Pro-B Natriuret Pep Total Protein Albumin Crossmatch 01/22/20 01/22/20 01/22/20 03:41 07:47 11:20 WBC RBC Hgb Hct MCV RDW Plt Count Lymph % (Auto) [place] % (Auto) Lymph # Seg Neutrophils % Seg Neuts % (Manual) Lymphocytes % (Manual) Nucleated RBC % Seg Neutrophils # Man Lymphocytes # (Manual) Monocytes # (Manual) Eosinophils # (Manual) PT INR D-Dimer > 59784 H Heparin Anti-Xa Level ABG pH ABG pO2 66.7 L ABG HCO3 28.7 H ABG O2 Saturation 91.9 L ABG Base Excess ABG Hemoglobin 9.1 L Oxyhemoglobin 89.5 L Sodium Potassium Chloride 94.3 L Carbon Dioxide BUN 53 H Creatinine 6.5 H Glucose POC Glucose Calcium Magnesium Ferritin Direct Bilirubin AST ALT Alkaline Phosphatase Lactate Dehydrogenase Troponin T C-Reactive Protein NT-Pro-B Natriuret Pep Total Protein Albumin Crossmatch 01/22/20 01/22/20 01/23/20 11:49 Unknown 04:55 WBC 15.1 H RBC 3.05 L Hgb 8.8 L Hct 28.3 L MCV RDW 17.8 H Plt Count 125 L Lymph % (Auto) [place] % (Auto) Lymph # Seg Neutrophils % Seg Neuts % (Manual) Lymphocytes % (Manual) Nucleated RBC % Seg Neutrophils # Man Lymphocytes # (Manual) Monocytes # (Manual) Eosinophils # (Manual) PT INR D-Dimer Heparin Anti-Xa Level ABG pH 7.340 L ABG pO2 77.7 L 136.3 H ABG HCO3 27.6 H 28.8 H ABG O2 Saturation ABG Base Excess ABG Hemoglobin 9.3 L 10.9 L Oxyhemoglobin 94.2 L Sodium Potassium Chloride Carbon Dioxide BUN Creatinine Glucose POC Glucose Calcium Magnesium Ferritin Direct Bilirubin AST ALT Alkaline Phosphatase Lactate Dehydrogenase Troponin T C-Reactive Protein NT-Pro-B Natriuret Pep Total Protein Albumin Crossmatch 01/23/20 01/23/20 01/23/20 06:23 07:07 12:23 WBC RBC Hgb Hct MCV RDW Plt Count Lymph % (Auto) [place] % (Auto) Lymph # Seg Neutrophils % Seg Neuts % (Manual) Lymphocytes % (Manual) Nucleated RBC % Seg Neutrophils # Man Lymphocytes # (Manual) Monocytes # (Manual) Eosinophils # (Manual) PT INR D-Dimer Heparin Anti-Xa Level ABG pH ABG pO2 ABG HCO3 ABG O2 Saturation ABG Base Excess ABG Hemoglobin Oxyhemoglobin Sodium Potassium Chloride Carbon Dioxide BUN Creatinine Glucose POC Glucose 57 L 127 H 131 H Calcium Magnesium Ferritin Direct Bilirubin AST ALT Alkaline Phosphatase Lactate Dehydrogenase Troponin T C-Reactive Protein NT-Pro-B Natriuret Pep Total Protein Albumin Crossmatch 01/23/20 01/23/20 01/24/20 Unknown Unknown 04:00 WBC 16.2 H RBC 3.08 L Hgb 8.9 L Hct 28.6 L MCV RDW 17.8 H Plt Count 139 L Lymph % (Auto) [place] % (Auto) Lymph # Seg Neutrophils % Seg Neuts % (Manual) Lymphocytes % (Manual) Nucleated RBC % Seg Neutrophils # Man Lymphocytes # (Manual) Monocytes # (Manual) Eosinophils # (Manual) PT INR D-Dimer Heparin Anti-Xa Level < 0.10 L ABG pH ABG pO2 ABG HCO3 ABG O2 Saturation ABG Base Excess ABG Hemoglobin Oxyhemoglobin Sodium Potassium Chloride Carbon Dioxide BUN Creatinine Glucose POC Glucose Calcium Magnesium Ferritin 4195.0 H Direct Bilirubin AST ALT Alkaline Phosphatase Lactate Dehydrogenase Troponin T C-Reactive Protein NT-Pro-B Natriuret Pep Total Protein Albumin Crossmatch 01/24/20 01/24/20 01/24/20 04:00 04:00 04:00 WBC RBC Hgb Hct MCV RDW Plt Count Lymph % (Auto) [place] % (Auto) Lymph # Seg Neutrophils % Seg Neuts % (Manual) Lymphocytes % (Manual) Nucleated RBC % Seg Neutrophils # Man Lymphocytes # (Manual) Monocytes # (Manual) Eosinophils # (Manual) PT INR D-Dimer 5783.11 H Heparin Anti-Xa Level ABG pH 7.188 L* ABG pO2 70.8 L ABG HCO3 32.2 H ABG O2 Saturation 90.4 L ABG Base Excess ABG Hemoglobin 8.5 L Oxyhemoglobin 88.1 L Sodium Potassium Chloride Carbon Dioxide BUN Creatinine Glucose POC Glucose Calcium Magnesium Ferritin Direct Bilirubin AST ALT Alkaline Phosphatase Lactate Dehydrogenase 474 H Troponin T C-Reactive Protein 29.80 H NT-Pro-B Natriuret Pep Total Protein Albumin Crossmatch 01/24/20 01/24/20 01/24/20 05:20 05:51 09:14 WBC RBC Hgb Hct MCV RDW Plt Count Lymph % (Auto) [place] % (Auto) Lymph # Seg Neutrophils % Seg Neuts % (Manual) Lymphocytes % (Manual) Nucleated RBC % Seg Neutrophils # Man Lymphocytes # (Manual) Monocytes # (Manual) Eosinophils # (Manual) PT INR D-Dimer Heparin Anti-Xa Level ABG pH 7.214 L ABG pO2 71.7 L ABG HCO3 31.5 H ABG O2 Saturation 91.8 L ABG Base Excess ABG Hemoglobin 9.1 L Oxyhemoglobin 89.3 L Sodium Potassium Chloride Carbon Dioxide BUN Creatinine Glucose POC Glucose 50 L 53 L Calcium Magnesium Ferritin Direct Bilirubin AST ALT Alkaline Phosphatase Lactate Dehydrogenase Troponin T C-Reactive Protein NT-Pro-B Natriuret Pep Total Protein Albumin Crossmatch 01/24/20 01/24/20 01/24/20 15:10 18:04 21:10 WBC RBC Hgb Hct MCV RDW Plt Count Lymph % (Auto) [place] % (Auto) Lymph # Seg Neutrophils % Seg Neuts % (Manual) Lymphocytes % (Manual) Nucleated RBC % Seg Neutrophils # Man Lymphocytes # (Manual) Monocytes # (Manual) Eosinophils # (Manual) PT INR D-Dimer Heparin Anti-Xa Level ABG pH ABG pO2 ABG HCO3 ABG O2 Saturation ABG Base Excess ABG Hemoglobin Oxyhemoglobin Sodium Potassium Chloride Carbon Dioxide BUN Creatinine Glucose POC Glucose 114 H 51 L 144 H Calcium Magnesium Ferritin Direct Bilirubin AST ALT Alkaline Phosphatase Lactate Dehydrogenase Troponin T C-Reactive Protein NT-Pro-B Natriuret Pep Total Protein Albumin Crossmatch 01/24/20 01/25/20 01/25/20 Unknown 00:32 03:50 WBC 13.0 H RBC 3.10 L Hgb 9.2 L Hct 29.0 L MCV RDW 17.7 H Plt Count Lymph % (Auto) [place] % (Auto) Lymph # Seg Neutrophils % Seg Neuts % (Manual) 92.0 H Lymphocytes % (Manual) 5.0 L Nucleated RBC % Seg Neutrophils # Man 12.0 H Lymphocytes # (Manual) 0.7 L Monocytes # (Manual) Eosinophils # (Manual) PT INR D-Dimer Heparin Anti-Xa Level ABG pH 7.291 L ABG pO2 71.3 L ABG HCO3 30.6 H ABG O2 Saturation 93.6 L ABG Base Excess 3.3 H ABG Hemoglobin 8.1 L Oxyhemoglobin 91.2 L Sodium Potassium Chloride Carbon Dioxide BUN Creatinine Glucose POC Glucose 114 H Calcium Magnesium Ferritin Direct Bilirubin AST ALT Alkaline Phosphatase Lactate Dehydrogenase Troponin T C-Reactive Protein NT-Pro-B Natriuret Pep Total Protein Albumin Crossmatch 01/25/20 01/25/2001/24/20 04:22 06:05 17:28 WBC RBC Hgb Hct MCV RDW Plt Count Lymph % (Auto) [place] % (Auto) Lymph # Seg Neutrophils % Seg Neuts % (Manual) Lymphocytes % (Manual) Nucleated RBC % Seg Neutrophils # Man Lymphocytes # (Manual) Monocytes # (Manual) Eosinophils # (Manual) PT INR D-Dimer Heparin Anti-Xa Level ABG pH 7.304 L ABG pO2 69.5 L ABG HCO3 29.7 H ABG O2 Saturation 93.2 L ABG Base Excess ABG Hemoglobin 8.7 L Oxyhemoglobin 90.7 L Sodium Potassium Chloride Carbon Dioxide BUN Creatinine Glucose POC Glucose 136 H 127 H Calcium Magnesium Ferritin Direct Bilirubin AST ALT Alkaline Phosphatase Lactate Dehydrogenase Troponin T C-Reactive Protein NT-Pro-B Natriuret Pep Total Protein Albumin Crossmatch 01/26/20 01/26/20 01/26/20 00:20 02:31 02:31 WBC RBC Hgb Hct MCV RDW Plt Count Lymph % (Auto) [place] % (Auto) Lymph # Seg Neutrophils % Seg Neuts % (Manual) Lymphocytes % (Manual) Nucleated RBC % Seg Neutrophils # Man Lymphocytes # (Manual) Monocytes # (Manual) Eosinophils # (Manual) PT INR D-Dimer Heparin Anti-Xa Level ABG pH ABG pO2 ABG HCO3 ABG O2 Saturation ABG Base Excess ABG Hemoglobin Oxyhemoglobin Sodium Potassium Chloride Carbon Dioxide BUN Creatinine Glucose POC Glucose 127 H Calcium Magnesium Ferritin 3764.0 H Direct Bilirubin AST ALT Alkaline Phosphatase Lactate Dehydrogenase 393 H Troponin T C-Reactive Protein 28.60 H NT-Pro-B Natriuret Pep Total Protein Albumin Crossmatch 01/26/20 01/26/20 01/26/20 02:31 04:45 05:24 WBC RBC Hgb Hct MCV RDW Plt Count Lymph % (Auto) [place] % (Auto) Lymph # Seg Neutrophils % Seg Neuts % (Manual) Lymphocytes % (Manual) Nucleated RBC % Seg Neutrophils # Man Lymphocytes # (Manual) Monocytes # (Manual) Eosinophils # (Manual) PT INR D-Dimer 3828.76 H Heparin Anti-Xa Level ABG pH ABG pO2 ABG HCO3 30.8 H ABG O2 Saturation ABG Base Excess 4.9 H ABG Hemoglobin 7.4 L Oxyhemoglobin 94.6 L Sodium Potassium Chloride Carbon Dioxide BUN Creatinine Glucose POC Glucose 121 H Calcium Magnesium Ferritin Direct Bilirubin AST ALT Alkaline Phosphatase Lactate Dehydrogenase Troponin T C-Reactive Protein NT-Pro-B Natriuret Pep Total Protein Albumin Crossmatch 01/26/20 01/26/20 01/26/20 10:40 12:36 18:10 WBC RBC Hgb Hct MCV RDW Plt Count Lymph % (Auto) [place] % (Auto) Lymph # Seg Neutrophils % Seg Neuts % (Manual) Lymphocytes % (Manual) Nucleated RBC % Seg Neutrophils # Man Lymphocytes # (Manual) Monocytes # (Manual) Eosinophils # (Manual) PT INR D-Dimer Heparin Anti-Xa Level ABG pH ABG pO2 ABG HCO3 ABG O2 Saturation ABG Base Excess ABG Hemoglobin Oxyhemoglobin Sodium Potassium Chloride Carbon Dioxide BUN Creatinine Glucose POC Glucose 119 H 126 H 159 H Calcium Magnesium Ferritin Direct Bilirubin AST ALT Alkaline Phosphatase Lactate Dehydrogenase Troponin T C-Reactive Protein NT-Pro-B Natriuret Pep Total Protein Albumin Crossmatch 01/27/20 01/27/20 01/27/20 03:45 06:15 12:19 WBC RBC Hgb Hct MCV RDW Plt Count Lymph % (Auto) [place] % (Auto) Lymph # Seg Neutrophils % Seg Neuts % (Manual) Lymphocytes % (Manual) Nucleated RBC % Seg Neutrophils # Man Lymphocytes # (Manual) Monocytes # (Manual) Eosinophils # (Manual) PT INR D-Dimer Heparin Anti-Xa Level ABG pH 7.307 L ABG pO2 91.1 H ABG HCO3 30.5 H ABG O2 Saturation ABG Base Excess 3.4 H ABG Hemoglobin 8.7 L Oxyhemoglobin 94.3 L Sodium Potassium Chloride Carbon Dioxide BUN Creatinine Glucose POC Glucose 147 H 164 H Calcium Magnesium Ferritin Direct Bilirubin AST ALT Alkaline Phosphatase Lactate Dehydrogenase Troponin T C-Reactive Protein NT-Pro-B Natriuret Pep Total Protein Albumin Crossmatch 01/27/20 01/28/20 01/28/20 17:42 00:29 04:34 WBC RBC Hgb Hct MCV RDW Plt Count Lymph % (Auto) [place] % (Auto) Lymph # Seg Neutrophils % Seg Neuts % (Manual) Lymphocytes % (Manual) Nucleated RBC % Seg Neutrophils # Man Lymphocytes # (Manual) Monocytes # (Manual) Eosinophils # (Manual) PT INR D-Dimer Heparin Anti-Xa Level ABG pH ABG pO2 ABG HCO3 ABG O2 Saturation ABG Base Excess ABG Hemoglobin Oxyhemoglobin Sodium Potassium Chloride Carbon Dioxide BUN Creatinine Glucose POC Glucose 149 H 178 H Calcium Magnesium Ferritin > 2000.0 H Direct Bilirubin AST ALT Alkaline Phosphatase Lactate Dehydrogenase Troponin T C-Reactive Protein NT-Pro-B Natriuret Pep Total Protein Albumin Crossmatch 01/28/20 01/28/20 01/28/20 04:34 04:34 05:20 WBC RBC Hgb Hct MCV RDW Plt Count Lymph % (Auto) [place] % (Auto) Lymph # Seg Neutrophils % Seg Neuts % (Manual) Lymphocytes % (Manual) Nucleated RBC % Seg Neutrophils # Man Lymphocytes # (Manual) Monocytes # (Manual) Eosinophils # (Manual) PT INR D-Dimer 2379 H Heparin Anti-Xa Level ABG pH 7.237 L ABG pO2 90.9 H ABG HCO3 29.1 H ABG O2 Saturation ABG Base Excess ABG Hemoglobin 7.5 L Oxyhemoglobin 94.0 L Sodium Potassium Chloride Carbon Dioxide BUN Creatinine Glucose POC Glucose Calcium Magnesium Ferritin Direct Bilirubin AST ALT Alkaline Phosphatase Lactate Dehydrogenase 434 H Troponin T C-Reactive Protein 9.70 H NT-Pro-B Natriuret Pep Total Protein Albumin Crossmatch 01/28/20 01/28/20 01/28/20 06:21 12:25 18:17 WBC RBC Hgb Hct MCV RDW Plt Count Lymph % (Auto) [place] % (Auto) Lymph # Seg Neutrophils % Seg Neuts % (Manual) Lymphocytes % (Manual) Nucleated RBC % Seg Neutrophils # Man Lymphocytes # (Manual) Monocytes # (Manual) Eosinophils # (Manual) PT INR D-Dimer Heparin Anti-Xa Level ABG pH ABG pO2 ABG HCO3 ABG O2 Saturation ABG Base Excess ABG Hemoglobin Oxyhemoglobin Sodium Potassium Chloride Carbon Dioxide BUN Creatinine Glucose POC Glucose 127 H 196 H 190 H Calcium Magnesium Ferritin Direct Bilirubin AST ALT Alkaline Phosphatase Lactate Dehydrogenase Troponin T C-Reactive Protein NT-Pro-B Natriuret Pep Total Protein Albumin Crossmatch 01/28/20 01/29/20 01/29/20 23:35 04:00 04:00 WBC 12.6 H RBC 3.01 L Hgb 9.2 L Hct 29.3 L MCV 98 H RDW 18.1 H Plt Count Lymph % (Auto) [place] % (Auto) Lymph # Seg Neutrophils % Seg Neuts % (Manual) Lymphocytes % (Manual) Nucleated RBC % Seg Neutrophils # Man Lymphocytes # (Manual) Monocytes # (Manual) Eosinophils # (Manual) PT INR D-Dimer Heparin Anti-Xa Level ABG pH ABG pO2 ABG HCO3 ABG O2 Saturation ABG Base Excess ABG Hemoglobin Oxyhemoglobin Sodium 132 L Potassium Chloride 90.1 L Carbon Dioxide BUN 50 H Creatinine 3.7 H Glucose 184 H POC Glucose 177 H Calcium Magnesium Ferritin Direct Bilirubin AST 93 H ALT Alkaline Phosphatase 678 H Lactate Dehydrogenase Troponin T C-Reactive Protein NT-Pro-B Natriuret Pep Total Protein Albumin 1.7 L Crossmatch 01/29/20 01/29/20 01/29/20 05:03 11:53 16:44 WBC RBC Hgb Hct MCV RDW Plt Count Lymph % (Auto) [place] % (Auto) Lymph # Seg Neutrophils % Seg Neuts % (Manual) Lymphocytes % (Manual) Nucleated RBC % Seg Neutrophils # Man Lymphocytes # (Manual) Monocytes # (Manual) Eosinophils # (Manual) PT INR D-Dimer Heparin Anti-Xa Level ABG pH ABG pO2 ABG HCO3 ABG O2 Saturation ABG Base Excess ABG Hemoglobin Oxyhemoglobin Sodium Potassium Chloride Carbon Dioxide BUN Creatinine Glucose POC Glucose 145 H 193 H 174 H Calcium Magnesium Ferritin Direct Bilirubin AST ALT Alkaline Phosphatase Lactate Dehydrogenase Troponin T C-Reactive Protein NT-Pro-B Natriuret Pep Total Protein Albumin Crossmatch 01/29/20 01/30/20 01/30/20 23:38 04:25 11:45 WBC RBC Hgb Hct MCV RDW Plt Count Lymph % (Auto) [place] % (Auto) Lymph # Seg Neutrophils % Seg Neuts % (Manual) Lymphocytes % (Manual) Nucleated RBC % Seg Neutrophils # Man Lymphocytes # (Manual) Monocytes # (Manual) Eosinophils # (Manual) PT INR D-Dimer Heparin Anti-Xa Level ABG pH 7.253 L ABG pO2 61.8 L ABG HCO3 29.7 H ABG O2 Saturation 90.1 L ABG Base Excess ABG Hemoglobin 8.2 L Oxyhemoglobin 87.5 L Sodium Potassium Chloride Carbon Dioxide BUN Creatinine Glucose POC Glucose 144 H 191 H Calcium Magnesium Ferritin Direct Bilirubin AST ALT Alkaline Phosphatase Lactate Dehydrogenase Troponin T C-Reactive Protein NT-Pro-B Natriuret Pep Total Protein Albumin Crossmatch 01/30/20 01/31/20 01/31/20 18:21 00:04 03:52 WBC RBC Hgb Hct MCV RDW Plt Count Lymph % (Auto) [place] % (Auto) Lymph # Seg Neutrophils % Seg Neuts % (Manual) Lymphocytes % (Manual) Nucleated RBC % Seg Neutrophils # Man Lymphocytes # (Manual) Monocytes # (Manual) Eosinophils # (Manual) PT INR D-Dimer Heparin Anti-Xa Level ABG pH ABG pO2 69.3 L ABG HCO3 29.4 H ABG O2 Saturation ABG Base Excess 3.7 H ABG Hemoglobin 10.8 L Oxyhemoglobin Sodium Potassium Chloride Carbon Dioxide BUN Creatinine Glucose POC Glucose 198 H 129 H Calcium Magnesium Ferritin Direct Bilirubin AST ALT Alkaline Phosphatase Lactate Dehydrogenase Troponin T C-Reactive Protein NT-Pro-B Natriuret Pep Total Protein Albumin Crossmatch 01/31/20 01/31/20 01/31/20 04:00 04:16 05:12 WBC 16.7 H RBC 2.73 L Hgb 8.3 L Hct 25.7 L MCV RDW 18.0 H Plt Count Lymph % (Auto) [place] % (Auto) Lymph # Seg Neutrophils % Seg Neuts % (Manual) 92.0 H Lymphocytes % (Manual) 2.0 L Nucleated RBC % Seg Neutrophils # Man 15.4 H Lymphocytes # (Manual) 0.3 L Monocytes # (Manual) 1.0 H Eosinophils # (Manual) PT INR D-Dimer Heparin Anti-Xa Level ABG pH ABG pO2 ABG HCO3 ABG O2 Saturation ABG Base Excess ABG Hemoglobin Oxyhemoglobin Sodium 130 L Potassium Chloride 90.1 L Carbon Dioxide BUN 61 H Creatinine 3.4 H Glucose 128 H POC Glucose 157 H Calcium Magnesium Ferritin Direct Bilirubin AST 103 H ALT 63 H Alkaline Phosphatase 534 H Lactate Dehydrogenase Troponin T C-Reactive Protein NT-Pro-B Natriuret Pep Total Protein Albumin 2.1 L Crossmatch 01/31/20 01/31/20 01/31/20 11:50 17:39 18:47 WBC RBC Hgb Hct MCV RDW Plt Count Lymph % (Auto) [place] % (Auto) Lymph # Seg Neutrophils % Seg Neuts % (Manual) Lymphocytes % (Manual) Nucleated RBC % Seg Neutrophils # Man Lymphocytes # (Manual) Monocytes # (Manual) Eosinophils # (Manual) PT INR D-Dimer Heparin Anti-Xa Level ABG pH ABG pO2 ABG HCO3 ABG O2 Saturation ABG Base Excess ABG Hemoglobin Oxyhemoglobin Sodium Potassium Chloride Carbon Dioxide BUN Creatinine Glucose POC Glucose 129 H 51 L 172 H Calcium Magnesium Ferritin Direct Bilirubin AST ALT Alkaline Phosphatase Lactate Dehydrogenase Troponin T C-Reactive Protein NT-Pro-B Natriuret Pep Total Protein Albumin Crossmatch 02/01/20 02/01/20 02/01/20 03:49 03:49 05:00 WBC 17.4 H RBC 2.68 L Hgb 8.0 L Hct 25.2 L MCV RDW 18.4 H Plt Count Lymph % (Auto) [place] % (Auto) Lymph # Seg Neutrophils % Seg Neuts % (Manual) Lymphocytes % (Manual) Nucleated RBC % Seg Neutrophils # Man Lymphocytes # (Manual) Monocytes # (Manual) Eosinophils # (Manual) PT INR D-Dimer Heparin Anti-Xa Level ABG pH 7.290 L ABG pO2 ABG HCO3 26.8 H ABG O2 Saturation ABG Base Excess ABG Hemoglobin 7.5 L Oxyhemoglobin 94.2 L Sodium 133 L Potassium Chloride 90.8 L Carbon Dioxide 21 L BUN 90 H Creatinine 4.6 H Glucose 145 H POC Glucose Calcium Magnesium Ferritin Direct Bilirubin AST ALT Alkaline Phosphatase Lactate Dehydrogenase Troponin T C-Reactive Protein NT-Pro-B Natriuret Pep Total Protein Albumin Crossmatch 02/01/20 02/01/20 02/01/20 05:34 06:09 12:42 WBC RBC Hgb Hct MCV RDW Plt Count Lymph % (Auto) [place] % (Auto) Lymph # Seg Neutrophils % Seg Neuts % (Manual) Lymphocytes % (Manual) Nucleated RBC % Seg Neutrophils # Man Lymphocytes # (Manual) Monocytes # (Manual) Eosinophils # (Manual) PT INR D-Dimer Heparin Anti-Xa Level ABG pH ABG pO2 ABG HCO3 ABG O2 Saturation ABG Base Excess ABG Hemoglobin Oxyhemoglobin Sodium Potassium Chloride Carbon Dioxide BUN Creatinine Glucose POC Glucose 166 H 143 H 218 H Calcium Magnesium Ferritin Direct Bilirubin AST ALT Alkaline Phosphatase Lactate Dehydrogenase Troponin T C-Reactive Protein NT-Pro-B Natriuret Pep Total Protein Albumin Crossmatch 02/01/20 02/01/20 02/02/20 17:38 18:24 05:00 WBC RBC Hgb Hct MCV RDW Plt Count Lymph % (Auto) [place] % (Auto) Lymph # Seg Neutrophils % Seg Neuts % (Manual) Lymphocytes % (Manual) Nucleated RBC % Seg Neutrophils # Man Lymphocytes # (Manual) Monocytes # (Manual) Eosinophils # (Manual) PT INR D-Dimer Heparin Anti-Xa Level ABG pH 7.317 L ABG pO2 ABG HCO3 28.2 H ABG O2 Saturation ABG Base Excess ABG Hemoglobin 10.1 L Oxyhemoglobin 94.0 L Sodium Potassium Chloride Carbon Dioxide BUN Creatinine Glucose POC Glucose 158 H 233 H Calcium Magnesium Ferritin Direct Bilirubin AST ALT Alkaline Phosphatase Lactate Dehydrogenase Troponin T C-Reactive Protein NT-Pro-B Natriuret Pep Total Protein Albumin Crossmatch 02/02/20 02/02/20 02/02/20 05:44 05:44 05:44 WBC 16.0 H RBC 2.85 L Hgb 8.3 L Hct 26.3 L MCV RDW 18.6 H Plt Count Lymph % (Auto) [place] % (Auto) Lymph # Seg Neutrophils % Seg Neuts % (Manual) 91.0 H Lymphocytes % (Manual) 2.0 L Nucleated RBC % Seg Neutrophils # Man 14.6 H Lymphocytes # (Manual) 0.3 L Monocytes # (Manual) Eosinophils # (Manual) PT INR D-Dimer Heparin Anti-Xa Level 0.77 H ABG pH ABG pO2 ABG HCO3 ABG O2 Saturation ABG Base Excess ABG Hemoglobin Oxyhemoglobin Sodium Potassium Chloride 95.5 L Carbon Dioxide BUN 57 H Creatinine 3.0 H Glucose 144 H POC Glucose Calcium 8.1 L Magnesium Ferritin Direct Bilirubin 0.3 H AST 179 H ALT 106 H Alkaline Phosphatase 557 H Lactate Dehydrogenase Troponin T C-Reactive Protein NT-Pro-B Natriuret Pep Total Protein 6.1 L Albumin 2.3 L Crossmatch 02/02/20 02/02/20 02/02/20 11:17 11:33 12:24 WBC RBC Hgb Hct MCV RDW Plt Count Lymph % (Auto) [place] % (Auto) Lymph # Seg Neutrophils % Seg Neuts % (Manual) Lymphocytes % (Manual) Nucleated RBC % Seg Neutrophils # Man Lymphocytes # (Manual) Monocytes # (Manual) Eosinophils # (Manual) PT INR D-Dimer Heparin Anti-Xa Level ABG pH ABG pO2 ABG HCO3 ABG O2 Saturation ABG Base Excess ABG Hemoglobin Oxyhemoglobin Sodium Potassium Chloride Carbon Dioxide BUN Creatinine Glucose POC Glucose < 40 L < 40 L 224 H Calcium Magnesium Ferritin Direct Bilirubin AST ALT Alkaline Phosphatase Lactate Dehydrogenase Troponin T C-Reactive Protein NT-Pro-B Natriuret Pep Total Protein Albumin Crossmatch 02/02/20 02/02/20 02/03/20 12:33 17:42 00:25 WBC RBC Hgb Hct MCV RDW Plt Count Lymph % (Auto) [place] % (Auto) Lymph # Seg Neutrophils % Seg Neuts % (Manual) Lymphocytes % (Manual) Nucleated RBC % Seg Neutrophils # Man Lymphocytes # (Manual) Monocytes # (Manual) Eosinophils # (Manual) PT INR D-Dimer Heparin Anti-Xa Level ABG pH ABG pO2 ABG HCO3 ABG O2 Saturation ABG Base Excess ABG Hemoglobin Oxyhemoglobin Sodium Potassium Chloride Carbon Dioxide BUN Creatinine Glucose 296 H POC Glucose 228 H < 40 L Calcium Magnesium Ferritin Direct Bilirubin AST ALT Alkaline Phosphatase Lactate Dehydrogenase Troponin T C-Reactive Protein NT-Pro-B Natriuret Pep Total Protein Albumin Crossmatch 02/03/20 02/03/20 02/03/20 00:27 03:59 03:59 WBC 22.9 H RBC 2.80 L Hgb 8.3 L Hct 27.4 L MCV 98 H RDW 19.2 H Plt Count Lymph % (Auto) [place] % (Auto) Lymph # Seg Neutrophils % Seg Neuts % (Manual) 92.0 H Lymphocytes % (Manual) 4.0 L Nucleated RBC % Seg Neutrophils # Man 21.1 H Lymphocytes # (Manual) 0.9 L Monocytes # (Manual) Eosinophils # (Manual) PT INR D-Dimer Heparin Anti-Xa Level ABG pH ABG pO2 ABG HCO3 ABG O2 Saturation ABG Base Excess ABG Hemoglobin Oxyhemoglobin Sodium 134 L Potassium 3.5 L Chloride Carbon Dioxide 21 L BUN 40 H Creatinine 2.6 H Glucose 180 H POC Glucose 198 H Calcium Magnesium Ferritin Direct Bilirubin AST ALT Alkaline Phosphatase Lactate Dehydrogenase Troponin T C-Reactive Protein NT-Pro-B Natriuret Pep Total Protein Albumin Crossmatch 02/03/20 02/03/20 02/03/20 04:48 05:00 12:21 WBC RBC Hgb Hct MCV RDW Plt Count Lymph % (Auto) [place] % (Auto) Lymph # Seg Neutrophils % Seg Neuts % (Manual) Lymphocytes % (Manual) Nucleated RBC % Seg Neutrophils # Man Lymphocytes # (Manual) Monocytes # (Manual) Eosinophils # (Manual) PT INR D-Dimer Heparin Anti-Xa Level ABG pH 7.315 L ABG pO2 97.3 H ABG HCO3 28.5 H ABG O2 Saturation ABG Base Excess ABG Hemoglobin 8.3 L Oxyhemoglobin 94.8 L Sodium Potassium Chloride Carbon Dioxide BUN Creatinine Glucose POC Glucose 182 H 201 H Calcium Magnesium Ferritin Direct Bilirubin AST ALT Alkaline Phosphatase Lactate Dehydrogenase Troponin T C-Reactive Protein NT-Pro-B Natriuret Pep Total Protein Albumin Crossmatch 02/03/20 02/03/20 02/04/20 17:43 23:36 04:50 WBC RBC Hgb Hct MCV RDW Plt Count Lymph % (Auto) [place] % (Auto) Lymph # Seg Neutrophils % Seg Neuts % (Manual) Lymphocytes % (Manual) Nucleated RBC % Seg Neutrophils # Man Lymphocytes # (Manual) Monocytes # (Manual) Eosinophils # (Manual) PT INR D-Dimer Heparin Anti-Xa Level ABG pH ABG pO2 ABG HCO3 ABG O2 Saturation ABG Base Excess ABG Hemoglobin Oxyhemoglobin Sodium 135 L Potassium Chloride 96.3 L Carbon Dioxide 21 L BUN 63 H Creatinine 4.1 H D Glucose 156 H POC Glucose 224 H 146 H Calcium 8.2 L Magnesium Ferritin Direct Bilirubin AST ALT Alkaline Phosphatase Lactate Dehydrogenase Troponin T C-Reactive Protein NT-Pro-B Natriuret Pep Total Protein Albumin Crossmatch 02/04/20 02/04/20 02/04/20 04:50 05:30 05:40 WBC 18.3 H RBC 2.31 L Hgb 6.9 L Hct 22.0 L MCV RDW 18.2 H Plt Count Lymph % (Auto) [place] % (Auto) Lymph # Seg Neutrophils % Seg Neuts % (Manual) 85.0 H Lymphocytes % (Manual) 4.0 L Nucleated RBC % 1.0 H Seg Neutrophils # Man 15.6 H Lymphocytes # (Manual) 0.7 L Monocytes # (Manual) Eosinophils # (Manual) PT INR D-Dimer Heparin Anti-Xa Level ABG pH 7.317 L ABG pO2 77.7 L ABG HCO3 27.4 H ABG O2 Saturation ABG Base Excess ABG Hemoglobin 8.0 L Oxyhemoglobin 94.5 L Sodium Potassium Chloride Carbon Dioxide BUN Creatinine Glucose POC Glucose 202 H Calcium Magnesium Ferritin Direct Bilirubin AST ALT Alkaline Phosphatase Lactate Dehydrogenase Troponin T C-Reactive Protein NT-Pro-B Natriuret Pep Total Protein Albumin Crossmatch 02/04/20 02/04/20 02/04/20 10:47 12:53 18:44 WBC RBC Hgb Hct MCV RDW Plt Count Lymph % (Auto) [place] % (Auto) Lymph # Seg Neutrophils % Seg Neuts % (Manual) Lymphocytes % (Manual) Nucleated RBC % Seg Neutrophils # Man Lymphocytes # (Manual) Monocytes # (Manual) Eosinophils # (Manual) PT INR D-Dimer Heparin Anti-Xa Level ABG pH ABG pO2 ABG HCO3 ABG O2 Saturation ABG Base Excess ABG Hemoglobin Oxyhemoglobin Sodium Potassium Chloride Carbon Dioxide BUN Creatinine Glucose POC Glucose 197 H 143 H Calcium Magnesium Ferritin Direct Bilirubin AST ALT Alkaline Phosphatase Lactate Dehydrogenase Troponin T C-Reactive Protein NT-Pro-B Natriuret Pep Total Protein Albumin Crossmatch See Detail 02/05/20 02/05/20 02/05/20 00:43 04:14 04:35 WBC RBC Hgb Hct MCV RDW Plt Count Lymph % (Auto) [place] % (Auto) Lymph # Seg Neutrophils % Seg Neuts % (Manual) Lymphocytes % (Manual) Nucleated RBC % Seg Neutrophils # Man Lymphocytes # (Manual) Monocytes # (Manual) Eosinophils # (Manual) PT INR D-Dimer Heparin Anti-Xa Level ABG pH 7.327 L ABG pO2 75.5 L ABG HCO3 30.1 H ABG O2 Saturation ABG Base Excess 3.5 H ABG Hemoglobin 8.4 L Oxyhemoglobin 93.8 L Sodium 134 L Potassium 3.3 L Chloride 97.3 L Carbon Dioxide BUN 38 H Creatinine 2.2 H Glucose 187 H POC Glucose 163 H Calcium 8.1 L Magnesium Ferritin Direct Bilirubin AST ALT Alkaline Phosphatase Lactate Dehydrogenase Troponin T C-Reactive Protein NT-Pro-B Natriuret Pep Total Protein Albumin Crossmatch 02/05/20 02/05/20 02/05/20 04:35 05:16 12:17 WBC 24.4 H RBC 2.75 L Hgb 7.9 L Hct 25.2 L MCV RDW 18.1 H Plt Count Lymph % (Auto) [place] % (Auto) Lymph # Seg Neutrophils % Seg Neuts % (Manual) 96.0 H Lymphocytes % (Manual) 1.0 L Nucleated RBC % Seg Neutrophils # Man 23.4 H Lymphocytes # (Manual) 0.2 L Monocytes # (Manual) Eosinophils # (Manual) 0.5 H PT INR D-Dimer Heparin Anti-Xa Level ABG pH ABG pO2 ABG HCO3 ABG O2 Saturation ABG Base Excess ABG Hemoglobin Oxyhemoglobin Sodium Potassium Chloride Carbon Dioxide BUN Creatinine Glucose POC Glucose 196 H 174 H Calcium Magnesium Ferritin Direct Bilirubin AST ALT Alkaline Phosphatase Lactate Dehydrogenase Troponin T C-Reactive Protein NT-Pro-B Natriuret Pep Total Protein Albumin Crossmatch 02/05/20 02/05/20 02/05/20 13:55 13:55 13:55 WBC RBC Hgb Hct MCV RDW Plt Count Lymph % (Auto) [place] % (Auto) Lymph # Seg Neutrophils % Seg Neuts % (Manual) Lymphocytes % (Manual) Nucleated RBC % Seg Neutrophils # Man Lymphocytes # (Manual) Monocytes # (Manual) Eosinophils # (Manual) PT INR D-Dimer 2896.73 H Heparin Anti-Xa Level ABG pH ABG pO2 ABG HCO3 ABG O2 Saturation ABG Base Excess ABG Hemoglobin Oxyhemoglobin Sodium Potassium Chloride Carbon Dioxide BUN Creatinine Glucose POC Glucose Calcium Magnesium Ferritin > 2000.0 H Direct Bilirubin AST ALT Alkaline Phosphatase Lactate Dehydrogenase 311 H Troponin T C-Reactive Protein 17.30 H NT-Pro-B Natriuret Pep Total Protein Albumin Crossmatch 02/05/20 02/05/20 02/06/20 17:20 21:53 04:50 WBC RBC Hgb Hct MCV RDW Plt Count Lymph % (Auto) [place] % (Auto) Lymph # Seg Neutrophils % Seg Neuts % (Manual) Lymphocytes % (Manual) Nucleated RBC % Seg Neutrophils # Man Lymphocytes # (Manual) Monocytes # (Manual) Eosinophils # (Manual) PT INR D-Dimer Heparin Anti-Xa Level ABG pH 7.349 L ABG pO2 64.5 L ABG HCO3 28.4 H ABG O2 Saturation 94.0 L ABG Base Excess ABG Hemoglobin 8.4 L Oxyhemoglobin 91.8 L Sodium Potassium Chloride Carbon Dioxide BUN Creatinine Glucose POC Glucose 191 H 200 H Calcium Magnesium Ferritin Direct Bilirubin AST ALT Alkaline Phosphatase Lactate Dehydrogenase Troponin T C-Reactive Protein NT-Pro-B Natriuret Pep Total Protein Albumin Crossmatch 02/06/20 02/06/20 02/06/20 05:55 05:55 05:58 WBC 22.4 H RBC 3.02 L Hgb 8.5 L Hct 27.6 L MCV RDW 18.8 H Plt Count Lymph % (Auto) [place] % (Auto) Lymph # Seg Neutrophils % Seg Neuts % (Manual) Lymphocytes % (Manual) Nucleated RBC % Seg Neutrophils # Man Lymphocytes # (Manual) Monocytes # (Manual) Eosinophils # (Manual) PT INR D-Dimer Heparin Anti-Xa Level ABG pH ABG pO2 ABG HCO3 ABG O2 Saturation ABG Base Excess ABG Hemoglobin Oxyhemoglobin Sodium 136 L Potassium Chloride 96.4 L Carbon Dioxide BUN 66 H Creatinine 3.6 H D Glucose 139 H POC Glucose 110 H Calcium Magnesium Ferritin Direct Bilirubin AST ALT Alkaline Phosphatase Lactate Dehydrogenase Troponin T C-Reactive Protein NT-Pro-B Natriuret Pep Total Protein Albumin Crossmatch 02/06/20 02/06/20 02/06/20 12:19 17:52 23:47 WBC RBC Hgb Hct MCV RDW Plt Count Lymph % (Auto) [place] % (Auto) Lymph # Seg Neutrophils % Seg Neuts % (Manual) Lymphocytes % (Manual) Nucleated RBC % Seg Neutrophils # Man Lymphocytes # (Manual) Monocytes # (Manual) Eosinophils # (Manual) PT INR D-Dimer Heparin Anti-Xa Level ABG pH ABG pO2 ABG HCO3 ABG O2 Saturation ABG Base Excess ABG Hemoglobin Oxyhemoglobin Sodium Potassium Chloride Carbon Dioxide BUN Creatinine Glucose POC Glucose 185 H 185 H 173 H Calcium Magnesium Ferritin Direct Bilirubin AST ALT Alkaline Phosphatase Lactate Dehydrogenase Troponin T C-Reactive Protein NT-Pro-B Natriuret Pep Total Protein Albumin Crossmatch 02/07/20 02/07/20 02/07/20 05:04 11:46 11:52 WBC RBC Hgb Hct MCV RDW Plt Count Lymph % (Auto) [place] % (Auto) Lymph # Seg Neutrophils % Seg Neuts % (Manual) Lymphocytes % (Manual) Nucleated RBC % Seg Neutrophils # Man Lymphocytes # (Manual) Monocytes # (Manual) Eosinophils # (Manual) PT INR D-Dimer Heparin Anti-Xa Level ABG pH ABG pO2 ABG HCO3 ABG O2 Saturation ABG Base Excess ABG Hemoglobin Oxyhemoglobin Sodium Potassium Chloride Carbon Dioxide BUN Creatinine Glucose POC Glucose 145 H 240 H 251 H Calcium Magnesium Ferritin Direct Bilirubin AST ALT Alkaline Phosphatase Lactate Dehydrogenase Troponin T C-Reactive Protein NT-Pro-B Natriuret Pep Total Protein Albumin Crossmatch 02/07/20 02/08/20 02/08/20 18:18 00:22 05:43 WBC RBC Hgb Hct MCV RDW Plt Count Lymph % (Auto) [place] % (Auto) Lymph # Seg Neutrophils % Seg Neuts % (Manual) Lymphocytes % (Manual) Nucleated RBC % Seg Neutrophils # Man Lymphocytes # (Manual) Monocytes # (Manual) Eosinophils # (Manual) PT INR D-Dimer Heparin Anti-Xa Level ABG pH ABG pO2 ABG HCO3 ABG O2 Saturation ABG Base Excess ABG Hemoglobin Oxyhemoglobin Sodium Potassium Chloride Carbon Dioxide BUN Creatinine Glucose POC Glucose 225 H 274 H 307 H Calcium Magnesium Ferritin Direct Bilirubin AST ALT Alkaline Phosphatase Lactate Dehydrogenase Troponin T C-Reactive Protein NT-Pro-B Natriuret Pep Total Protein Albumin Crossmatch 02/08/20 02/08/20 02/08/20 09:40 12:09 17:42 WBC RBC Hgb Hct MCV RDW Plt Count Lymph % (Auto) [place] % (Auto) Lymph # Seg Neutrophils % Seg Neuts % (Manual) Lymphocytes % (Manual) Nucleated RBC % Seg Neutrophils # Man Lymphocytes # (Manual) Monocytes # (Manual) Eosinophils # (Manual) PT INR D-Dimer Heparin Anti-Xa Level ABG pH 7.167 L* ABG pO2 ABG HCO3 30.3 H ABG O2 Saturation 92.6 L ABG Base Excess ABG Hemoglobin 8.8 L Oxyhemoglobin 90.4 L Sodium Potassium Chloride Carbon Dioxide BUN Creatinine Glucose POC Glucose 327 H 269 H Calcium Magnesium Ferritin Direct Bilirubin AST ALT Alkaline Phosphatase Lactate Dehydrogenase Troponin T C-Reactive Protein NT-Pro-B Natriuret Pep Total Protein Albumin Crossmatch 02/08/20 02/09/20 02/09/20 20:45 01:16 04:48 WBC 22.9 H RBC 2.86 L Hgb 8.3 L Hct 26.2 L MCV RDW 18.0 H Plt Count 507 H Lymph % (Auto) [place] % (Auto) Lymph # Seg Neutrophils % Seg Neuts % (Manual) Lymphocytes % (Manual) Nucleated RBC % Seg Neutrophils # Man Lymphocytes # (Manual) Monocytes # (Manual) Eosinophils # (Manual) PT INR D-Dimer Heparin Anti-Xa Level ABG pH ABG pO2 79.1 L ABG HCO3 31.7 H ABG O2 Saturation ABG Base Excess 4.6 H ABG Hemoglobin Oxyhemoglobin 93.5 L Sodium Potassium Chloride Carbon Dioxide BUN Creatinine Glucose POC Glucose 150 H Calcium Magnesium Ferritin Direct Bilirubin AST ALT Alkaline Phosphatase Lactate Dehydrogenase Troponin T C-Reactive Protein NT-Pro-B Natriuret Pep Total Protein Albumin Crossmatch 02/09/20 02/09/20 02/09/20 04:48 05:14 13:11 WBC RBC Hgb Hct MCV RDW Plt Count Lymph % (Auto) [place] % (Auto) Lymph # Seg Neutrophils % Seg Neuts % (Manual) Lymphocytes % (Manual) Nucleated RBC % Seg Neutrophils # Man Lymphocytes # (Manual) Monocytes # (Manual) Eosinophils # (Manual) PT INR D-Dimer Heparin Anti-Xa Level ABG pH ABG pO2 ABG HCO3 ABG O2 Saturation ABG Base Excess ABG Hemoglobin Oxyhemoglobin Sodium Potassium Chloride 93.9 L Carbon Dioxide BUN 59 H Creatinine 2.5 H Glucose 309 H POC Glucose 356 H 184 H Calcium Magnesium Ferritin Direct Bilirubin AST ALT Alkaline Phosphatase Lactate Dehydrogenase Troponin T C-Reactive Protein NT-Pro-B Natriuret Pep Total Protein Albumin Crossmatch 02/09/20 02/10/20 02/10/20 16:53 00:20 05:38 WBC RBC Hgb Hct MCV RDW Plt Count Lymph % (Auto) [place] % (Auto) Lymph # Seg Neutrophils % Seg Neuts % (Manual) Lymphocytes % (Manual) Nucleated RBC % Seg Neutrophils # Man Lymphocytes # (Manual) Monocytes # (Manual) Eosinophils # (Manual) PT INR D-Dimer Heparin Anti-Xa Level ABG pH ABG pO2 ABG HCO3 ABG O2 Saturation ABG Base Excess ABG Hemoglobin Oxyhemoglobin Sodium Potassium Chloride Carbon Dioxide BUN Creatinine Glucose POC Glucose 357 H 298 H 300 H Calcium Magnesium Ferritin Direct Bilirubin AST ALT Alkaline Phosphatase Lactate Dehydrogenase Troponin T C-Reactive Protein NT-Pro-B Natriuret Pep Total Protein Albumin Crossmatch 02/10/20 02/10/20 02/11/20 12:38 18:17 00:08 WBC RBC Hgb Hct MCV RDW Plt Count Lymph % (Auto) [place] % (Auto) Lymph # Seg Neutrophils % Seg Neuts % (Manual) Lymphocytes % (Manual) Nucleated RBC % Seg Neutrophils # Man Lymphocytes # (Manual) Monocytes # (Manual) Eosinophils # (Manual) PT INR D-Dimer Heparin Anti-Xa Level ABG pH ABG pO2 ABG HCO3 ABG O2 Saturation ABG Base Excess ABG Hemoglobin Oxyhemoglobin Sodium Potassium Chloride Carbon Dioxide BUN Creatinine Glucose POC Glucose 350 H 271 H 164 H Calcium Magnesium Ferritin Direct Bilirubin AST ALT Alkaline Phosphatase Lactate Dehydrogenase Troponin T C-Reactive Protein NT-Pro-B Natriuret Pep Total Protein Albumin Crossmatch 02/11/20 02/11/20 02/11/20 05:34 12:18 17:27 WBC RBC Hgb Hct MCV RDW Plt Count Lymph % (Auto) [place] % (Auto) Lymph # Seg Neutrophils % Seg Neuts % (Manual) Lymphocytes % (Manual) Nucleated RBC % Seg Neutrophils # Man Lymphocytes # (Manual) Monocytes # (Manual) Eosinophils # (Manual) PT INR D-Dimer Heparin Anti-Xa Level ABG pH ABG pO2 ABG HCO3 ABG O2 Saturation ABG Base Excess ABG Hemoglobin Oxyhemoglobin Sodium Potassium Chloride Carbon Dioxide BUN Creatinine Glucose POC Glucose 274 H 246 H 174 H Calcium Magnesium Ferritin Direct Bilirubin AST ALT Alkaline Phosphatase Lactate Dehydrogenase Troponin T C-Reactive Protein NT-Pro-B Natriuret Pep Total Protein Albumin Crossmatch 02/12/20 02/12/20 02/12/20 00:19 05:00 05:00 WBC 31.3 H RBC 2.79 L Hgb 8.0 L Hct 25.4 L MCV RDW 18.4 H Plt Count 566 H Lymph % (Auto) [place] % (Auto) Lymph # Seg Neutrophils % Seg Neuts % (Manual) Lymphocytes % (Manual) Nucleated RBC % Seg Neutrophils # Man Lymphocytes # (Manual) Monocytes # (Manual) Eosinophils # (Manual) PT INR D-Dimer Heparin Anti-Xa Level ABG pH ABG pO2 ABG HCO3 ABG O2 Saturation ABG Base Excess ABG Hemoglobin Oxyhemoglobin Sodium 136 L Potassium Chloride 95.6 L Carbon Dioxide BUN 102 H Creatinine 3.0 H Glucose 170 H POC Glucose 227 H Calcium Magnesium Ferritin Direct Bilirubin AST ALT Alkaline Phosphatase Lactate Dehydrogenase Troponin T C-Reactive Protein NT-Pro-B Natriuret Pep Total Protein Albumin Crossmatch 02/12/20 02/12/20 02/12/20 05:25 12:21 18:58 WBC RBC Hgb Hct MCV RDW Plt Count Lymph % (Auto) [place] % (Auto) Lymph # Seg Neutrophils % Seg Neuts % (Manual) Lymphocytes % (Manual) Nucleated RBC % Seg Neutrophils # Man Lymphocytes # (Manual) Monocytes # (Manual) Eosinophils # (Manual) PT INR D-Dimer Heparin Anti-Xa Level ABG pH ABG pO2 ABG HCO3 ABG O2 Saturation ABG Base Excess ABG Hemoglobin Oxyhemoglobin Sodium Potassium Chloride Carbon Dioxide BUN Creatinine Glucose POC Glucose 157 H 230 H 197 H Calcium Magnesium Ferritin Direct Bilirubin AST ALT Alkaline Phosphatase Lactate Dehydrogenase Troponin T C-Reactive Protein NT-Pro-B Natriuret Pep Total Protein Albumin Crossmatch 02/12/20 02/13/20 02/13/20 23:36 05:30 08:39 WBC RBC Hgb Hct MCV RDW Plt Count Lymph % (Auto) [place] % (Auto) Lymph # Seg Neutrophils % Seg Neuts % (Manual) Lymphocytes % (Manual) Nucleated RBC % Seg Neutrophils # Man Lymphocytes # (Manual) Monocytes # (Manual) Eosinophils # (Manual) PT INR D-Dimer Heparin Anti-Xa Level ABG pH ABG pO2 ABG HCO3 ABG O2 Saturation ABG Base Excess ABG Hemoglobin Oxyhemoglobin Sodium 135 L Potassium Chloride 93.8 L Carbon Dioxide BUN 72 H Creatinine 2.2 H Glucose 212 H POC Glucose 166 H 247 H Calcium Magnesium Ferritin Direct Bilirubin AST ALT Alkaline Phosphatase Lactate Dehydrogenase Troponin T C-Reactive Protein NT-Pro-B Natriuret Pep Total Protein Albumin Crossmatch 02/13/20 02/13/20 02/13/20 13:19 18:05 23:37 WBC RBC Hgb Hct MCV RDW Plt Count Lymph % (Auto) [place] % (Auto) Lymph # Seg Neutrophils % Seg Neuts % (Manual) Lymphocytes % (Manual) Nucleated RBC % Seg Neutrophils # Man Lymphocytes # (Manual) Monocytes # (Manual) Eosinophils # (Manual) PT INR D-Dimer Heparin Anti-Xa Level ABG pH ABG pO2 ABG HCO3 ABG O2 Saturation ABG Base Excess ABG Hemoglobin Oxyhemoglobin Sodium Potassium Chloride Carbon Dioxide BUN Creatinine Glucose POC Glucose 244 H 232 H 233 H Calcium Magnesium Ferritin Direct Bilirubin AST ALT Alkaline Phosphatase Lactate Dehydrogenase Troponin T C-Reactive Protein NT-Pro-B Natriuret Pep Total Protein Albumin Crossmatch 02/14/20 05:11 WBC RBC Hgb Hct MCV RDW Plt Count Lymph % (Auto) [place] % (Auto) Lymph # Seg Neutrophils % Seg Neuts % (Manual) Lymphocytes % (Manual) Nucleated RBC % Seg Neutrophils # Man Lymphocytes # (Manual) Monocytes # (Manual) Eosinophils # (Manual) PT INR D-Dimer Heparin Anti-Xa Level ABG pH ABG pO2 ABG HCO3 ABG O2 Saturation ABG Base Excess ABG Hemoglobin Oxyhemoglobin Sodium Potassium Chloride Carbon Dioxide BUN Creatinine Glucose POC Glucose 239 H Calcium Magnesium Ferritin Direct Bilirubin AST ALT Alkaline Phosphatase Lactate Dehydrogenase Troponin T C-Reactive Protein NT-Pro-B Natriuret Pep Total Protein Albumin Crossmatch Allied health notes reviewed: nursing
--- NOTE | 2020-02-14 13:51 | Progress Note ---
Assessment and Plan 64-year-old female with ventilator dependent respiratory failure Plan: 1. Continue vent management per ICU team - on FIO2 35% and PEEP 6 2. Patient's is agreeable to proceed with tracheostomy and PEG tube placement. I discussed the risks, benefits, alternatives to the procedures with him in detail and all questions were answered. Consent was obtained. 3. N.p.o. after midnight tonight, hold tube feeds 4. Trach and PEG scheduled for 02/14 at 1300 D/W CM Patricia. D/W patient's RN. Dr. Vargas and Dr. Aiken updated. Thank you, please call with questions or concerns Objective Vital Signs - 12hr 02/14/20 02/14/20 02/14/20 02:00 03:00 03:50 Temperature Pulse Rate 99 H 90 99 H Pulse Rate [ From Monitor] Respiratory 18 26 H Rate Blood Pressure 135/59 78/42 130/62 O2 Sat by Pulse 96 100 99 Oximetry 02/14/20 02/14/20 02/14/20 04:00 05:00 06:00 Temperature 98.8 F Pulse Rate 96 H 97 H 102 H Pulse Rate [ 96 H From Monitor] Respiratory 20 22 20 Rate Blood Pressure 131/59 128/63 133/60 O2 Sat by Pulse 98 100 Oximetry 02/14/20 02/14/20 02/14/20 07:00 08:00 08:15 Temperature 98.9 F Pulse Rate 95 H 98 H 102 H Pulse Rate [ 98 H From Monitor] Respiratory 19 20 Rate Blood Pressure 133/60 135/66 133/60 O2 Sat by Pulse 97 100 100 Oximetry 02/14/20 02/14/20 02/14/20 09:00 10:00 11:00 Temperature Pulse Rate 96 H 97 H 98 H Pulse Rate [ From Monitor] Respiratory 22 19 19 Rate Blood Pressure 139/72 139/67 137/66 O2 Sat by Pulse 98 100 Oximetry 02/14/20 12:05 Temperature Pulse Rate 98 H Pulse Rate [ From Monitor] Respiratory Rate Blood Pressure 137/66 O2 Sat by Pulse 100 Oximetry - Labs 02/12/20 05:00 02/13/20 08:39
--- NOTE | 2020-02-14 16:02 | Progress Note ---
Assessment and Plan Cultures: 01/10/2020 blood culture: No growth 01/21/2020 sputum culture: No growth 01/25/2020 blood culture: No growth 02/04/2020 blood culture: no growth A/P: 64/F with #Sepsis with shock: likely due to severe COVID pneumonia. Completed empiric Cefepime x 5 days. Now back on antibiotics. #Severe COVID pneumonia: very elevated inflammatory markers. S/p ivermectin x 1 on 01/21/2020 (off label use). S/p hydroxychloroquine with zinc x 5 days. Markers remain elevated. #Acute hypoxic resp failure: intubated, on the vent. Vent requirements not too high #ESRD on HD: nephrology following. #Thrombocytopenia: resolved #Elevated LFTs: etiology unclear. Bilirubin is normal. Alk phos and transaminases elevated. RUQ US showed no gall bladder, CBD appeared normal. Recs: continue steroids for 7 days followed by taper (started 02/07/2020) Pending trach + LTACH placement. Patient has been here for some time - initial positive test on 01/17/2020. Can be removed from precautions after 4 weeks. Lloyd Loza MD [facility] ([facility] M: [phone] O: [phone] F: [phone] Subjective Date of service: 02/14/20 Principal diagnosis: Pneumonia Interval history: Afebrile, remains on vent with minimal settings. High white count. Objective - Exam Narrative Exam: Physical Exam (reviewed in chart due to PPE conservation) Constitutional: intubated, on the vent Head, Ears, Nose: normocephalic, atraumatic Eyes: limited due to PPE conservation strategy Neck: intubated Oral: intubated Cardiovascular: limited due to PPE conservation strategy Respiratory: limited due to PPE conservation strategy GI: limited due to PPE conservation strategy Musculoskeletal: limited due to PPE conservation strategy Skin: limited due to PPE conservation strategy Hem/Lymphatic: limited due to PPE conservation strategy Psych: no agitation Neurological: intubated, on the vent, exam limited - Constitutional Vitals: Vital Signs Temp Pulse Resp BP Pulse Ox 98.9 F 100 H 19 137/65 98 02/14/20 08:00 02/14/20 15:00 02/14/20 15:00 02/14/20 15:00 02/14/20 14:00 Temperature -Last 24 Hours Temperature 98.9 F Temperature 98.8 F Temperature 98.3 F Temperature 98.3 F Temperature 96.3 F Temperature 96.3 F Temperature 98.0 F - Labs CBC & Chem 7: 02/12/20 05:00 02/13/20 08:39 Labs: Abnormal lab results 02/13/20 02/13/20 02/14/20 Range/Units 18:05 23:37 05:11 POC Glucose 232 H 233 H 239 H (70-105) 02/14/20 Range/Units 11:36 POC Glucose 67 L (70-105)
--- NOTE | 2020-02-14 22:01 | Progress Note ---
Assessment and Plan - Patient Problems (1) End stage renal disease on dialysis Current Visit: No Status: Chronic Plan to address problem: hemodialysis tomorrow as scheduled. 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 (4) Volume overload Current Visit: Yes Status: Acute Qualifiers: Plan to address problem: end-stage renal disease with fluid overload. Improved with fluid removal on dialysis. (5) Anemia in CKD (chronic kidney disease) Current Visit: Yes Status: Acute Qualifiers: Chronic kidney disease stage: on chronic dialysis Qualified Code(s): N18.6 - End stage renal disease; D63.1 - Anemia in chronic kidney disease; Z99.2 - Dependence on renal dialysis Plan to address problem: give erythropoietin on dialysis (6) T2DM (type 2 diabetes mellitus) Current Visit: Yes Status: Acute Qualifiers: Diabetes mellitus termination clerk insulin use: unspecified retirement insulin use status Plan to address problem: blood sugar management by primary attending. (7) Hypertensive chronic kidney disease with stage 5 chronic kidney disease or end stage renal disease Current Visit: No Status: Chronic Plan to address problem: patient is on vasopressor. Follow blood pressure current medications Subjective Date of service: 02/14/20 Principal diagnosis: Pneumonia Interval history: Patient is intubated on the ventilator in intensive care unit. Not on vasopre ssor. Patient was seen and examined today remains sedated on the ventilator Objective - Exam Narrative Exam: elderly -Welsh female lying in bed intubated on the ventilator HEENT: Normocephalic atraumatic, pupils equal round reactive to light ETT intact Neck: Supple, no venous distention, no goiter CVS: S1S2 RRR No murmur, rub or gallop Lungs: Coarse Bs, no use of accessory muscles of respiration Abdomen: Full, soft, nontender, no organomegaly no bruit, bowel sounds are present Extremities: No edema, no cyanosis or clubbing Urinary: Deferred Musculo-skeletal: No joint deformities or swelling Neuro Not following commands, - Vital Signs Vital signs: Vital Signs - 12hr 02/14/20 02/14/20 02/14/20 10:00 11:00 12:00 Temperature Pulse Rate 97 H 98 H 97 H Pulse Rate [ 97 H 96 H From Monitor] Respiratory 19 19 19 Rate Blood Pressure 139/67 137/66 131/63 O2 Sat by Pulse 98 100 46 L Oximetry 02/14/20 02/14/20 02/14/20 12:05 13:00 14:00 Temperature Pulse Rate 98 H 102 H 101 H Pulse Rate [ 101 H From Monitor] Respiratory 32 H 20 Rate Blood Pressure 137/66 141/64 141/62 O2 Sat by Pulse 100 98 98 Oximetry 02/14/20 02/14/20 02/14/20 15:00 16:00 16:35 Temperature 96.0 F L Pulse Rate 100 H 99 H 100 H Pulse Rate [ From Monitor] Respiratory 19 22 Rate Blood Pressure 137/65 145/64 137/65 O2 Sat by Pulse 98 Oximetry 02/14/20 02/14/20 02/14/20 17:00 18:00 19:00 Temperature Pulse Rate 102 H 99 H 102 H Pulse Rate [ From Monitor] Respiratory 22 40 H 25 H Rate Blood Pressure 160/77 139/77 129/52 O2 Sat by Pulse 100 98 Oximetry 02/14/20 02/14/20 19:43 19:44 Temperature Pulse Rate 103 H Pulse Rate [ 96 H From Monitor] Respiratory 19 Rate Blood Pressure O2 Sat by Pulse 100 Oximetry - Lab 02/12/20 05:00 02/13/20 08:39 Most recent lab results ABG pH 7.351 pH Units (7.350-7.450) 02/08/20 20:45 ABG pCO2 58.7 mm Hg 02/08/20 20:45 ABG pO2 79.1 mm Hg (80.0-90.0) L 02/08/20 20:45 ABG HCO3 31.7 mmol/L (20.0-26.0) H 02/08/20 20:45 ABG O2 Saturation 95.6 % (95.0-99.0) 02/08/20 20:45 Calcium 9.1 mg/dL (8.4-10.2) 02/13/20 08:39 Phosphorus 3.30 mg/dL (2.5-4.5) 01/12/20 16:01 Magnesium 2.00 mg/dL (1.7-2.3) 01/13/20 06:11 Medications & Allergies - Medications Allergies/Adverse Reactions: Allergies cheese Allergy (Mild, Verified 12/20/19 10:19) Itching iodine Allergy (Mild, Verified 12/20/19 10:16) Anaphylaxis clonidine Allergy (Verified 12/19/19 04:13) Anaphylaxis shellfish derived Adverse Reaction (Verified 12/19/19 04:13) Angioedema Home Medications: Home Medications Medication Instructions Recorded Confirmed Last Taken Type Atorvastatin [Lipitor] 40 mg PO DAILY 11/06/19 01/13/20 01/02/20 10:00 History Acetaminophen [Acetaminophen 8 650 mg PO Q8H PRN #30 tablet.er 11/21/19 01/13/20 01/03/20 22:00 Rx Hour] Cyclobenzaprine HCl [Flexeril 5 MG 5 mg PO QHS PRN #20 tab 11/21/19 01/13/20 01/01/20 22:00 Rx TAB] HYDROcodone/APAP 5-325 [[place] 1 each PO Q6HR PRN #18 tablet 12/13/19 01/13/20 01/01/20 22:00 Rx 5-325 mg TAB] amLODIPine 10 mg PO DAILY 90 Days #90 tab 12/18/19 01/13/20 01/01/20 10:00 Rx Ibuprofen 800 mg PO TID 12/19/19 01/13/20 01/02/20 22:00 History Magnesium Oxide [Mag-Ox] 400 mg PO QDAY 12/19/19 01/13/20 01/03/20 10:00 History diphenhydrAMINE [Benadryl CAP] 25 mg PO Q8HR PRN 12/19/19 01/13/20 01/03/20 21: 00 History labetaloL [Labetalol 100mg TAB] 100 mg PO Q8H #90 tablet 12/21/19 01/13/20 01/02/20 10:00 Rx traMADoL [Ultram 50 MG tab] 50 mg PO Q6HR PRN #20 tablet 12/29/19 01/13/20 12/31/19 10:00 Rx DULoxetine [Cymbalta] 30 mg PO QDAY #30 capsule 01/04/20 01/13/20 Unknown Rx Valsartan [Diovan] 80 mg PO DAILY #30 tablet 01/04/20 01/13/20 Unknown Rx Active Medications: Generic Name Dose Route Start Last Admin Trade Name Freq PRN Reason Stop Dose Admin Acetaminophen 650 mg 01/09/20 16:33 02/05/20 05:58 Tylenol PO 650 mg Q4H PRN Administration Pain MILD(1-3)/Fever >100.5/MEANS Lipase/Protease/Amylase 1 each 01/23/20 14:28 02/07/20 13:[address] 10,500 Unit FEEDTUBE 1 each PRN PRN Administration For Clogged Feeding Tube Atorvastatin Calcium 40 mg 01/09/20 22:00 02/13/20 21:57 Lipitor PO 40 mg QHS PHILLY Administration Dextrose 50 ml 01/23/20 07:26 02/02/20 11:33 D50w (25gm) Syringe IV 50 ml Q30MIN PRN Administration BLOOD GLUCOSE < 70 Dextrose 25 ml 01/24/20 08:58 01/24/20 13:41 D50w (25gm) Syringe IV 25 ml Q4H PRN Administration BG < 80 MG/DL Docusate Sodium 100 mg 01/25/20 22:00 02/14/20 09:54 Colace PO 100 mg BID PHILLY Administration Epoetin Helio 20,000 unit 02/04/20 12:00 02/04/20 13:00 Procrit SUB-Q 20,000 unit SILVERIO PHILLY Administration Famotidine 20 mg 01/09/20 22:00 02/14/20 09:54 Pepcid PO 20 mg DAILY PHILLY Administration Heparin Sodium (Porcine) 5,000 unit 02/07/20 10:00 02/14/20 09:54 Heparin SUB-Q 5,000 unit Q12HR PHILLY Administration Norepinephrine 4 mg in 250 mls @ 7.5 mls/hr 01/21/20 18:00 02/11/20 15:00 Levophed Drip 4 Mg/Ns 250 Ml IV 0 mcg/min TITR PHILLY 0 mls/hr Titration Protocol 2 MCG/MIN Sodium Chloride 100 mls @ 999 mls/hr 02/12/20 08:17 Nacl 0.9% IV SILVERIO PRN Hypotension Sodium Chloride 1,000 mls @ 50 mls/hr 02/15/20 08:00 Nacl 0.9% 1000 Ml IV DIRECT PHILLY Insulin Glargine 15 units 02/10/20 13:00 02/14/20 09:54 Lantus SUB-Q 15 units DAILY PHILLY Administration Insulin Human Lispro 0 unit 02/07/20 12:00 02/14/20 05:49 Humalog SUB-Q 3 unit Q6HR PHILLY Administration Protocol Lorazepam 2 mg 01/23/20 15:36 Ativan IV Q10MIN PRN Agitation Methylprednisolone Sodium Succinate 20 mg 02/14/20 14:00 02/14/20 14:49 Solu-Medrol IV 20 mg Q8HR PHILLY Administration Ondansetron HCl 4 mg 01/09/20 16:33 01/20/20 10:19 Zofran IV 4 mg Q8H PRN Administration Nausea And Vomiting Simple Syrup 15 ml 01/23/20 14:28 02/14/20 12:02 Simple Syrup FEEDTUBE 15 ml PRN PRN Administration Hypoglycemia Simple Syrup 30 ml 01/23/20 14:28 Simple Syrup FEEDTUBE PRN PRN Hypoglycemia Sodium Bicarbonate 325 mg 01/23/20 14:28 Sodium Bicarbonate FEEDTUBE PRN PRN For Clogged Feeding Tube Sodium Chloride 10 ml 01/09/20 22:00 02/14/20 09:55 Sodium Chloride Flush Syringe 10 Ml IV 10 ml BID PHILLY Administration Sodium Chloride 10 ml 01/09/20 16:33 Sodium Chloride Flush Syringe 10 Ml IV PRN PRN LINE FLUSH
[2020-02-15 06:25] LABS: Hematocrit 32.7 % (30.3-42.9); Hemoglobin 10.2 gm/dl (10.1-14.3); Mean Corpuscular HGB Conc 31 % (30-34); Mean Corpuscular Volume 93 fl (79-97); Platelet Count 750 K/mm3 (140-440); Red Blood Count 3.53 M/mm3 (3.65-5.03); Red Cell Distribution Width 19.4 % (13.2-15.2)
[2020-02-15 06:38] LABS: INR 1.18 (0.87-1.13)
[2020-02-15] MEDS: methylPREDNISolone Sod Succinate 40 MG/1 ML INJ IV SCH ×3 (06:42→22:50)
[2020-02-15 06:51] LABS: Calcium 9.6 mg/dL (8.4-10.2)
[2020-02-15] MEDS ORDERED: SODIUM CHLORIDE 0.9% 1000 ML 1,000 ML IV SCH (08:00)
[2020-02-15] MEDS: HEPARIN 5,000 UNIT/1 ML VIAL SUB-Q SCH ×2 (10:00→22:51)
[2020-02-15] MEDS: FAMOTIDINE 20 MG TAB PO SCH (10:00)
[2020-02-15] MEDS: INSULIN GLARGINE 100 UNITS/ML SUB-Q SCH (10:00)
[2020-02-15] MEDS: DOCUSATE SODIUM 100 MG/10 ML ORAL LIQD PO SCH (10:00)
--- NOTE | 2020-02-15 10:59 | Progress Note ---
Assessment and Plan 64 y/o female with COVID positive, viral pneumonia with some pulmonary vascular congestion superimposed. 1. Patient to be trached and pegged today. Continue weaning trials 24 hours post surgery. 2. HD per renal. Likely today. 3. In regards to steroids. Changed to 20q8 on 02/14/2020/ Would continue this dose for a week (7 days) then switch to 40 PO daily for 4 days, then 20 PO daily for 4 days, then 10 PO daily for 4 days then stop. 4. Continue isolation for now. Reviewed ID note and they suggest stopping after weeks. Need to clarifiy is this 4 weeks from initial diagnosis or 4 weeks from negative test. 5. Once trached and pegged, as long as no other changes clinically, would be stable for transfer to [facility] for further weaning. This should happen over the weekend. CCT 31 minutes. Subjective Date of service: 02/15/20 Principal diagnosis: Pneumonia Interval history: No acute events. Should get HD today and plan is to trach and peg today as well. Timing will be worked out with surgery and Dialysis. Objective Vital Signs - 12hr 02/14/20 02/14/20 02/15/20 23:00 23:34 00:00 Temperature Pulse Rate 100 H 97 H 99 H Pulse Rate [ 96 H From Monitor] Respiratory 19 Rate Blood Pressure 110/48 109/51 114/52 O2 Sat by Pulse 98 98 98 Oximetry 02/15/20 02/15/20 02/15/20 00:16 01:00 02:00 Temperature Pulse Rate 97 H 98 H 96 H Pulse Rate [ From Monitor] Respiratory 20 20 Rate Blood Pressure 121/57 111/50 113/51 O2 Sat by Pulse 98 100 99 Oximetry 02/15/20 02/15/20 02/15/20 03:00 04:00 04:09 Temperature Pulse Rate 96 H 98 H 98 H Pulse Rate [ 96 H From Monitor] Respiratory 23 21 Rate Blood Pressure 118/49 134/59 123/54 O2 Sat by Pulse 88 87 95 Oximetry 02/15/20 02/15/20 02/15/20 05:00 06:00 07:00 Temperature Pulse Rate 98 H 98 H 97 H Pulse Rate [ From Monitor] Respiratory 21 20 21 Rate Blood Pressure 105/43 107/42 111/47 O2 Sat by Pulse 89 96 Oximetry 02/15/20 02/15/20 08:00 08:54 Temperature 98.2 F Pulse Rate 98 H 98 H Pulse Rate [ 98 H From Monitor] Respiratory 21 Rate Blood Pressure 111/45 115/42 O2 Sat by Pulse 97 99 Oximetry Constitutional: other (orally intubated, not sedated currently on vent. on AC 450 50) Eyes: non-icteric ENT: oropharynx moist Neck: supple Effort: normal Ascultation: Bilateral: rales Cardiovascular: regular rate and rhythm (no mrg) Gastrointestinal: normoactive bowel sounds, soft, non-tender, non-distended Integumentary: normal Extremities: no cyanosis, no edema, pink and warm Neurologic: unable to assess Psychiatric: mood appropriate, affect normal CBC and BMP: 02/15/20 04:58 02/15/20 04:58 ABG, PT/INR, D-dimer: ABG ABG pH 7.351 pH Units (7.350-7.450) 02/08/20 20:45 ABG pCO2 58.7 mm Hg 02/08/20 20:45 ABG pO2 79.1 mm Hg (80.0-90.0) L 02/08/20 20:45 ABG O2 Saturation 95.6 % (95.0-99.0) 02/08/20 20:45 PT/INR, D-dimer PT 15.2 Sec. (12.2-14.9) H 02/15/20 04:58 INR 1.18 (0.87-1.13) H 02/15/20 04:58 D-Dimer 2896.73 ng/mlDDU (0-234) H 02/05/20 13:55 Abnormal lab findings: Abnormal Labs 01/09/20 01/09/20 01/09/20 12:55 12:55 12:55 WBC 4.4 L RBC 3.44 L Hgb Hct MCV RDW 17.0 H Plt Count Lymph % (Auto) 6.8 L [place] % (Auto) 13.6 H Lymph # 0.3 L Seg Neutrophils % 79.0 H Seg Neuts % (Manual) Lymphocytes % (Manual) Nucleated RBC % Seg Neutrophils # Man Lymphocytes # (Manual) Monocytes # (Manual) Eosinophils # (Manual) PT 15.6 H INR 1.22 H D-Dimer Heparin Anti-Xa Level ABG pH ABG pO2 ABG HCO3 ABG O2 Saturation ABG Base Excess ABG Hemoglobin Oxyhemoglobin Sodium 130 L Potassium Chloride 88.9 L Carbon Dioxide 20 L BUN 41 H Creatinine 7.6 H Glucose 115 H POC Glucose Calcium Magnesium Ferritin Direct Bilirubin AST ALT Alkaline Phosphatase 153 H Lactate Dehydrogenase Troponin T 0.382 H* C-Reactive Protein NT-Pro-B Natriuret Pep 19161 H Total Protein Albumin 3.2 L Crossmatch 01/09/20 01/10/20 01/10/20 20:14 00:16 06:54 WBC 3.3 L RBC 3.00 L Hgb 9.2 L Hct 27.8 L MCV RDW 17.2 H Plt Count Lymph % (Auto) 8.9 L [place] % (Auto) 11.5 H Lymph # 0.3 L Seg Neutrophils % 79.1 H Seg Neuts % (Manual) Lymphocytes % (Manual) Nucleated RBC % Seg Neutrophils # Man Lymphocytes # (Manual) Monocytes # (Manual) Eosinophils # (Manual) PT INR D-Dimer Heparin Anti-Xa Level ABG pH ABG pO2 ABG HCO3 ABG O2 Saturation ABG Base Excess ABG Hemoglobin Oxyhemoglobin Sodium Potassium Chloride Carbon Dioxide BUN Creatinine Glucose POC Glucose Calcium Magnesium Ferritin Direct Bilirubin AST ALT Alkaline Phosphatase Lactate Dehydrogenase Troponin T 0.349 H* 0.328 H* C-Reactive Protein NT-Pro-B Natriuret Pep Total Protein Albumin Crossmatch 01/10/20 01/10/20 01/11/20 06:54 06:54 16:45 WBC RBC Hgb Hct MCV RDW Plt Count Lymph % (Auto) [place] % (Auto) Lymph # Seg Neutrophils % Seg Neuts % (Manual) Lymphocytes % (Manual) Nucleated RBC % Seg Neutrophils # Man Lymphocytes # (Manual) Monocytes # (Manual) Eosinophils # (Manual) PT INR D-Dimer Heparin Anti-Xa Level ABG pH ABG pO2 ABG HCO3 ABG O2 Saturation ABG Base Excess ABG Hemoglobin Oxyhemoglobin Sodium 133 L Potassium Chloride 90.6 L Carbon Dioxide BUN 50 H Creatinine 8.4 H Glucose 101 H POC Glucose 106 H Calcium 8.1 L Magnesium Ferritin Direct Bilirubin AST ALT Alkaline Phosphatase 148 H Lactate Dehydrogenase Troponin T 0.315 H* C-Reactive Protein NT-Pro-B Natriuret Pep Total Protein 5.4 L Albumin 2.7 L Crossmatch 01/12/20 01/13/20 01/13/20 16:01 06:11 06:11 WBC 3.1 L RBC 3.25 L Hgb 9.8 L Hct MCV RDW 17.2 H Plt Count 136 L Lymph % (Auto) [place] % (Auto) Lymph # Seg Neutrophils % Seg Neuts % (Manual) Lymphocytes % (Manual) Nucleated RBC % Seg Neutrophils # Man Lymphocytes # (Manual) Monocytes # (Manual) Eosinophils # (Manual) PT INR D-Dimer Heparin Anti-Xa Level ABG pH ABG pO2 ABG HCO3 ABG O2 Saturation ABG Base Excess ABG Hemoglobin Oxyhemoglobin Sodium 135 L Potassium Chloride 93.4 L Carbon Dioxide BUN 19 H Creatinine 4.5 H Glucose 120 H POC Glucose Calcium 7.8 L Magnesium 1.40 L Ferritin Direct Bilirubin AST ALT Alkaline Phosphatase Lactate Dehydrogenase Troponin T C-Reactive Protein NT-Pro-B Natriuret Pep Total Protein Albumin Crossmatch 01/16/20 01/16/20 01/16/20 08:35 11:49 14:11 WBC RBC Hgb Hct MCV RDW Plt Count Lymph % (Auto) [place] % (Auto) Lymph # Seg Neutrophils % Seg Neuts % (Manual) Lymphocytes % (Manual) Nucleated RBC % Seg Neutrophils # Man Lymphocytes # (Manual) Monocytes # (Manual) Eosinophils # (Manual) PT INR D-Dimer Heparin Anti-Xa Level ABG pH ABG pO2 48.4 L ABG HCO3 30.5 H ABG O2 Saturation 81.9 L ABG Base Excess 4.6 H ABG Hemoglobin 10.5 L Oxyhemoglobin 80.1 L Sodium Potassium Chloride Carbon Dioxide BUN Creatinine Glucose POC Glucose 126 H 119 H Calcium Magnesium Ferritin Direct Bilirubin AST ALT Alkaline Phosphatase Lactate Dehydrogenase Troponin T C-Reactive Protein NT-Pro-B Natriuret Pep Total Protein Albumin Crossmatch 01/16/20 01/16/20 01/16/20 15:38 15:38 15:38 WBC RBC Hgb Hct MCV RDW Plt Count Lymph % (Auto) [place] % (Auto) Lymph # Seg Neutrophils % Seg Neuts % (Manual) Lymphocytes % (Manual) Nucleated RBC % Seg Neutrophils # Man Lymphocytes # (Manual) Monocytes # (Manual) Eosinophils # (Manual) PT INR D-Dimer 1104.64 H Heparin Anti-Xa Level ABG pH ABG pO2 ABG HCO3 ABG O2 Saturation ABG Base Excess ABG Hemoglobin Oxyhemoglobin Sodium Potassium Chloride Carbon Dioxide BUN Creatinine Glucose POC Glucose Calcium Magnesium Ferritin > 2000.0 H Direct Bilirubin AST ALT Alkaline Phosphatase Lactate Dehydrogenase 690 H Troponin T C-Reactive Protein 24.10 H NT-Pro-B Natriuret Pep Total Protein Albumin Crossmatch 01/16/20 01/18/20 01/18/20 18:11 06:25 06:25 WBC RBC 3.15 L Hgb 9.4 L Hct 29.4 L MCV RDW 17.5 H Plt Count 135 L Lymph % (Auto) 3.8 L [place] % (Auto) Lymph # 0.2 L Seg Neutrophils % 88.8 H Seg Neuts % (Manual) Lymphocytes % (Manual) Nucleated RBC % Seg Neutrophils # Man Lymphocytes # (Manual) Monocytes # (Manual) Eosinophils # (Manual) PT INR D-Dimer Heparin Anti-Xa Level ABG pH ABG pO2 ABG HCO3 ABG O2 Saturation ABG Base Excess ABG Hemoglobin Oxyhemoglobin Sodium Potassium Chloride 96.8 L Carbon Dioxide BUN 26 H Creatinine 4.2 H Glucose 115 H POC Glucose 130 H Calcium 8.2 L Magnesium Ferritin Direct Bilirubin AST ALT Alkaline Phosphatase Lactate Dehydrogenase 537 H Troponin T C-Reactive Protein 17.10 H NT-Pro-B Natriuret Pep Total Protein Albumin Crossmatch 01/18/20 01/18/20 01/18/20 06:25 06:25 12:15 WBC RBC Hgb Hct MCV RDW Plt Count Lymph % (Auto) [place] % (Auto) Lymph # Seg Neutrophils % Seg Neuts % (Manual) Lymphocytes % (Manual) Nucleated RBC % Seg Neutrophils # Man Lymphocytes # (Manual) Monocytes # (Manual) Eosinophils # (Manual) PT INR D-Dimer 938.03 H Heparin Anti-Xa Level ABG pH ABG pO2 66.5 L ABG HCO3 30.1 H ABG O2 Saturation 93.2 L ABG Base Excess 4.6 H ABG Hemoglobin 10.0 L Oxyhemoglobin 91.3 L Sodium Potassium Chloride Carbon Dioxide BUN Creatinine Glucose POC Glucose Calcium Magnesium Ferritin 3105.0 H Direct Bilirubin AST ALT Alkaline Phosphatase Lactate Dehydrogenase Troponin T C-Reactive Protein NT-Pro-B Natriuret Pep Total Protein Albumin Crossmatch 01/20/20 01/20/20 01/20/20 07:37 07:37 07:37 WBC RBC Hgb Hct MCV RDW Plt Count Lymph % (Auto) [place] % (Auto) Lymph # Seg Neutrophils % Seg Neuts % (Manual) Lymphocytes % (Manual) Nucleated RBC % Seg Neutrophils # Man Lymphocytes # (Manual) Monocytes # (Manual) Eosinophils # (Manual) PT INR D-Dimer 2072.25 H Heparin Anti-Xa Level ABG pH ABG pO2 ABG HCO3 ABG O2 Saturation ABG Base Excess ABG Hemoglobin Oxyhemoglobin Sodium Potassium Chloride Carbon Dioxide BUN Creatinine Glucose POC Glucose Calcium Magnesium Ferritin 1826.0 H Direct Bilirubin AST ALT Alkaline Phosphatase Lactate Dehydrogenase 496 H Troponin T C-Reactive Protein 19.30 H NT-Pro-B Natriuret Pep Total Protein Albumin Crossmatch 01/20/20 01/21/20 01/21/20 17:30 03:59 17:35 WBC RBC Hgb Hct MCV RDW Plt Count Lymph % (Auto) [place] % (Auto) Lymph # Seg Neutrophils % Seg Neuts % (Manual) Lymphocytes % (Manual) Nucleated RBC % Seg Neutrophils # Man Lymphocytes # (Manual) Monocytes # (Manual) Eosinophils # (Manual) PT INR D-Dimer Heparin Anti-Xa Level ABG pH ABG pO2 61.1 L 67.4 L ABG HCO3 29.9 H 26.2 H ABG O2 Saturation 91.7 L 93.4 L ABG Base Excess 4.9 H ABG Hemoglobin 9.0 L 9.1 L Oxyhemoglobin 89.5 L 91.1 L Sodium 136 L Potassium Chloride Carbon Dioxide BUN 36 H Creatinine 4.9 H Glucose POC Glucose Calcium Magnesium Ferritin Direct Bilirubin AST ALT Alkaline Phosphatase Lactate Dehydrogenase Troponin T C-Reactive Protein NT-Pro-B Natriuret Pep Total Protein Albumin Crossmatch 01/21/20 01/22/20 01/22/20 Unknown 03:41 03:41 WBC RBC Hgb Hct MCV RDW Plt Count Lymph % (Auto) [place] % (Auto) Lymph # Seg Neutrophils % Seg Neuts % (Manual) Lymphocytes % (Manual) Nucleated RBC % Seg Neutrophils # Man Lymphocytes # (Manual) Monocytes # (Manual) Eosinophils # (Manual) PT INR D-Dimer Heparin Anti-Xa Level ABG pH 7.465 H ABG pO2 48.9 L ABG HCO3 26.6 H ABG O2 Saturation 85.7 L ABG Base Excess ABG Hemoglobin 10.4 L Oxyhemoglobin 83.5 L Sodium Potassium Chloride Carbon Dioxide BUN Creatinine Glucose POC Glucose Calcium Magnesium Ferritin 6071.0 H Direct Bilirubin AST ALT Alkaline Phosphatase Lactate Dehydrogenase 963 H Troponin T C-Reactive Protein 30.00 H NT-Pro-B Natriuret Pep Total Protein Albumin Crossmatch 01/22/20 01/22/20 01/22/20 03:41 07:47 11:20 WBC RBC Hgb Hct MCV RDW Plt Count Lymph % (Auto) [place] % (Auto) Lymph # Seg Neutrophils % Seg Neuts % (Manual) Lymphocytes % (Manual) Nucleated RBC % Seg Neutrophils # Man Lymphocytes # (Manual) Monocytes # (Manual) Eosinophils # (Manual) PT INR D-Dimer > 70048 H Heparin Anti-Xa Level ABG pH ABG pO2 66.7 L ABG HCO3 28.7 H ABG O2 Saturation 91.9 L ABG Base Excess ABG Hemoglobin 9.1 L Oxyhemoglobin 89.5 L Sodium Potassium Chloride 94.3 L Carbon Dioxide BUN 53 H Creatinine 6.5 H Glucose POC Glucose Calcium Magnesium Ferritin Direct Bilirubin AST ALT Alkaline Phosphatase Lactate Dehydrogenase Troponin T C-Reactive Protein NT-Pro-B Natriuret Pep Total Protein Albumin Crossmatch 01/22/20 01/22/20 01/23/20 11:49 Unknown 04:55 WBC 15.1 H RBC 3.05 L Hgb 8.8 L Hct 28.3 L MCV RDW 17.8 H Plt Count 125 L Lymph % (Auto) [place] % (Auto) Lymph # Seg Neutrophils % Seg Neuts % (Manual) Lymphocytes % (Manual) Nucleated RBC % Seg Neutrophils # Man Lymphocytes # (Manual) Monocytes # (Manual) Eosinophils # (Manual) PT INR D-Dimer Heparin Anti-Xa Level ABG pH 7.340 L ABG pO2 77.7 L 136.3 H ABG HCO3 27.6 H 28.8 H ABG O2 Saturation ABG Base Excess ABG Hemoglobin 9.3 L 10.9 L Oxyhemoglobin 94.2 L Sodium Potassium Chloride Carbon Dioxide BUN Creatinine Glucose POC Glucose Calcium Magnesium Ferritin Direct Bilirubin AST ALT Alkaline Phosphatase Lactate Dehydrogenase Troponin T C-Reactive Protein NT-Pro-B Natriuret Pep Total Protein Albumin Crossmatch 01/23/20 01/23/20 01/23/20 06:23 07:07 12:23 WBC RBC Hgb Hct MCV RDW Plt Count Lymph % (Auto) [place] % (Auto) Lymph # Seg Neutrophils % Seg Neuts % (Manual) Lymphocytes % (Manual) Nucleated RBC % Seg Neutrophils # Man Lymphocytes # (Manual) Monocytes # (Manual) Eosinophils # (Manual) PT INR D-Dimer Heparin Anti-Xa Level ABG pH ABG pO2 ABG HCO3 ABG O2 Saturation ABG Base Excess ABG Hemoglobin Oxyhemoglobin Sodium Potassium Chloride Carbon Dioxide BUN Creatinine Glucose POC Glucose 57 L 127 H 131 H Calcium Magnesium Ferritin Direct Bilirubin AST ALT Alkaline Phosphatase Lactate Dehydrogenase Troponin T C-Reactive Protein NT-Pro-B Natriuret Pep Total Protein Albumin Crossmatch 01/23/20 01/23/20 01/24/20 Unknown Unknown 04:00 WBC 16.2 H RBC 3.08 L Hgb 8.9 L Hct 28.6 L MCV RDW 17.8 H Plt Count 139 L Lymph % (Auto) [place] % (Auto) Lymph # Seg Neutrophils % Seg Neuts % (Manual) Lymphocytes % (Manual) Nucleated RBC % Seg Neutrophils # Man Lymphocytes # (Manual) Monocytes # (Manual) Eosinophils # (Manual) PT INR D-Dimer Heparin Anti-Xa Level < 0.10 L ABG pH ABG pO2 ABG HCO3 ABG O2 Saturation ABG Base Excess ABG Hemoglobin Oxyhemoglobin Sodium Potassium Chloride Carbon Dioxide BUN Creatinine Glucose POC Glucose Calcium Magnesium Ferritin 4195.0 H Direct Bilirubin AST ALT Alkaline Phosphatase Lactate Dehydrogenase Troponin T C-Reactive Protein NT-Pro-B Natriuret Pep Total Protein Albumin Crossmatch 01/24/20 01/24/20 01/24/20 04:00 04:00 04:00 WBC RBC Hgb Hct MCV RDW Plt Count Lymph % (Auto) [place] % (Auto) Lymph # Seg Neutrophils % Seg Neuts % (Manual) Lymphocytes % (Manual) Nucleated RBC % Seg Neutrophils # Man Lymphocytes # (Manual) Monocytes # (Manual) Eosinophils # (Manual) PT INR D-Dimer 5783.11 H Heparin Anti-Xa Level ABG pH 7.188 L* ABG pO2 70.8 L ABG HCO3 32.2 H ABG O2 Saturation 90.4 L ABG Base Excess ABG Hemoglobin 8.5 L Oxyhemoglobin 88.1 L Sodium Potassium Chloride Carbon Dioxide BUN Creatinine Glucose POC Glucose Calcium Magnesium Ferritin Direct Bilirubin AST ALT Alkaline Phosphatase Lactate Dehydrogenase 474 H Troponin T C-Reactive Protein 29.80 H NT-Pro-B Natriuret Pep Total Protein Albumin Crossmatch 01/24/20 01/24/20 01/24/20 05:20 05:51 09:14 WBC RBC Hgb Hct MCV RDW Plt Count Lymph % (Auto) [place] % (Auto) Lymph # Seg Neutrophils % Seg Neuts % (Manual) Lymphocytes % (Manual) Nucleated RBC % Seg Neutrophils # Man Lymphocytes # (Manual) Monocytes # (Manual) Eosinophils # (Manual) PT INR D-Dimer Heparin Anti-Xa Level ABG pH 7.214 L ABG pO2 71.7 L ABG HCO3 31.5 H ABG O2 Saturation 91.8 L ABG Base Excess ABG Hemoglobin 9.1 L Oxyhemoglobin 89.3 L Sodium Potassium Chloride Carbon Dioxide BUN Creatinine Glucose POC Glucose 50 L 53 L Calcium Magnesium Ferritin Direct Bilirubin AST ALT Alkaline Phosphatase Lactate Dehydrogenase Troponin T C-Reactive Protein NT-Pro-B Natriuret Pep Total Protein Albumin Crossmatch 01/24/20 01/24/20 01/24/20 15:10 18:04 21:10 WBC RBC Hgb Hct MCV RDW Plt Count Lymph % (Auto) [place] % (Auto) Lymph # Seg Neutrophils % Seg Neuts % (Manual) Lymphocytes % (Manual) Nucleated RBC % Seg Neutrophils # Man Lymphocytes # (Manual) Monocytes # (Manual) Eosinophils # (Manual) PT INR D-Dimer Heparin Anti-Xa Level ABG pH ABG pO2 ABG HCO3 ABG O2 Saturation ABG Base Excess ABG Hemoglobin Oxyhemoglobin Sodium Potassium Chloride Carbon Dioxide BUN Creatinine Glucose POC Glucose 114 H 51 L 144 H Calcium Magnesium Ferritin Direct Bilirubin AST ALT Alkaline Phosphatase Lactate Dehydrogenase Troponin T C-Reactive Protein NT-Pro-B Natriuret Pep Total Protein Albumin Crossmatch 01/24/20 01/25/20 01/25/20 Unknown 00:32 03:50 WBC 13.0 H RBC 3.10 L Hgb 9.2 L Hct 29.0 L MCV RDW 17.7 H Plt Count Lymph % (Auto) [place] % (Auto) Lymph # Seg Neutrophils % Seg Neuts % (Manual) 92.0 H Lymphocytes % (Manual) 5.0 L Nucleated RBC % Seg Neutrophils # Man 12.0 H Lymphocytes # (Manual) 0.7 L Monocytes # (Manual) Eosinophils # (Manual) PT INR D-Dimer Heparin Anti-Xa Level ABG pH 7.291 L ABG pO2 71.3 L ABG HCO3 30.6 H ABG O2 Saturation 93.6 L ABG Base Excess 3.3 H ABG Hemoglobin 8.1 L Oxyhemoglobin 91.2 L Sodium Potassium Chloride Carbon Dioxide BUN Creatinine Glucose POC Glucose 114 H Calcium Magnesium Ferritin Direct Bilirubin AST ALT Alkaline Phosphatase Lactate Dehydrogenase Troponin T C-Reactive Protein NT-Pro-B Natriuret Pep Total Protein Albumin Crossmatch 01/25/20 01/25/20 01/25/20 04:22 06:05 17:28 WBC RBC Hgb Hct MCV RDW Plt Count Lymph % (Auto) [place] % (Auto) Lymph # Seg Neutrophils % Seg Neuts % (Manual) Lymphocytes % (Manual) Nucleated RBC % Seg Neutrophils # Man Lymphocytes # (Manual) Monocytes # (Manual) Eosinophils # (Manual) PT INR D-Dimer Heparin Anti-Xa Level ABG pH 7.304 L ABG pO2 69.5 L ABG HCO3 29.7 H ABG O2 Saturation 93.2 L ABG Base Excess ABG Hemoglobin 8.7 L Oxyhemoglobin 90.7 L Sodium Potassium Chloride Carbon Dioxide BUN Creatinine Glucose POC Glucose 136 H 127 H Calcium Magnesium Ferritin Direct Bilirubin AST ALT Alkaline Phosphatase Lactate Dehydrogenase Troponin T C-Reactive Protein NT-Pro-B Natriuret Pep Total Protein Albumin Crossmatch 01/26/20 01/26/20 01/26/20 00:20 02:31 02:31 WBC RBC Hgb Hct MCV RDW Plt Count Lymph % (Auto) [place] % (Auto) Lymph # Seg Neutrophils % Seg Neuts % (Manual) Lymphocytes % (Manual) Nucleated RBC % Seg Neutrophils # Man Lymphocytes # (Manual) Monocytes # (Manual) Eosinophils # (Manual) PT INR D-Dimer Heparin Anti-Xa Level ABG pH ABG pO2 ABG HCO3 ABG O2 Saturation ABG Base Excess ABG Hemoglobin Oxyhemoglobin Sodium Potassium Chloride Carbon Dioxide BUN Creatinine Glucose POC Glucose 127 H Calcium Magnesium Ferritin 3764.0 H Direct Bilirubin AST ALT Alkaline Phosphatase Lactate Dehydrogenase 393 H Troponin T C-Reactive Protein 28.60 H NT-Pro-B Natriuret Pep Total Protein Albumin Crossmatch 01/26/20 01/26/20 01/26/20 02:31 04:45 05:24 WBC RBC Hgb Hct MCV RDW Plt Count Lymph % (Auto) [place] % (Auto) Lymph # Seg Neutrophils % Seg Neuts % (Manual) Lymphocytes % (Manual) Nucleated RBC % Seg Neutrophils # Man Lymphocytes # (Manual) Monocytes # (Manual) Eosinophils # (Manual) PT INR D-Dimer 3828.76 H Heparin Anti-Xa Level ABG pH ABG pO2 ABG HCO3 30.8 H ABG O2 Saturation ABG Base Excess 4.9 H ABG Hemoglobin 7.4 L Oxyhemoglobin 94.6 L Sodium Potassium Chloride Carbon Dioxide BUN Creatinine Glucose POC Glucose 121 H Calcium Magnesium Ferritin Direct Bilirubin AST ALT Alkaline Phosphatase Lactate Dehydrogenase Troponin T C-Reactive Protein NT-Pro-B Natriuret Pep Total Protein Albumin Crossmatch 01/26/20 01/26/20 01/26/20 10:40 12:36 18:10 WBC RBC Hgb Hct MCV RDW Plt Count Lymph % (Auto) [place] % (Auto) Lymph # Seg Neutrophils % Seg Neuts % (Manual) Lymphocytes % (Manual) Nucleated RBC % Seg Neutrophils # Man Lymphocytes # (Manual) Monocytes # (Manual) Eosinophils # (Manual) PT INR D-Dimer Heparin Anti-Xa Level ABG pH ABG pO2 ABG HCO3 ABG O2 Saturation ABG Base Excess ABG Hemoglobin Oxyhemoglobin Sodium Potassium Chloride Carbon Dioxide BUN Creatinine Glucose POC Glucose 119 H 126 H 159 H Calcium Magnesium Ferritin Direct Bilirubin AST ALT Alkaline Phosphatase Lactate Dehydrogenase Troponin T C-Reactive Protein NT-Pro-B Natriuret Pep Total Protein Albumin Crossmatch 01/27/20 01/27/20 01/27/20 03:45 06:15 12:19 WBC RBC Hgb Hct MCV RDW Plt Count Lymph % (Auto) [place] % (Auto) Lymph # Seg Neutrophils % Seg Neuts % (Manual) Lymphocytes % (Manual) Nucleated RBC % Seg Neutrophils # Man Lymphocytes # (Manual) Monocytes # (Manual) Eosinophils # (Manual) PT INR D-Dimer Heparin Anti-Xa Level ABG pH 7.307 L ABG pO2 91.1 H ABG HCO3 30.5 H ABG O2 Saturation ABG Base Excess 3.4 H ABG Hemoglobin 8.7 L Oxyhemoglobin 94.3 L Sodium Potassium Chloride Carbon Dioxide BUN Creatinine Glucose POC Glucose 147 H 164 H Calcium Magnesium Ferritin Direct Bilirubin AST ALT Alkaline Phosphatase Lactate Dehydrogenase Troponin T C-Reactive Protein NT-Pro-B Natriuret Pep Total Protein Albumin Crossmatch 01/27/20 01/28/20 01/28/20 17:42 00:29 04:34 WBC RBC Hgb Hct MCV RDW Plt Count Lymph % (Auto) [place] % (Auto) Lymph # Seg Neutrophils % Seg Neuts % (Manual) Lymphocytes % (Manual) Nucleated RBC % Seg Neutrophils # Man Lymphocytes # (Manual) Monocytes # (Manual) Eosinophils # (Manual) PT INR D-Dimer Heparin Anti-Xa Level ABG pH ABG pO2 ABG HCO3 ABG O2 Saturation ABG Base Excess ABG Hemoglobin Oxyhemoglobin Sodium Potassium Chloride Carbon Dioxide BUN Creatinine Glucose POC Glucose 149 H 178 H Calcium Magnesium Ferritin > 2000.0 H Direct Bilirubin AST ALT Alkaline Phosphatase Lactate Dehydrogenase Troponin T C-Reactive Protein NT-Pro-B Natriuret Pep Total Protein Albumin Crossmatch 01/28/20 01/28/20 01/28/20 04:34 04:34 05:20 WBC RBC Hgb Hct MCV RDW Plt Count Lymph % (Auto) [place] % (Auto) Lymph # Seg Neutrophils % Seg Neuts % (Manual) Lymphocytes % (Manual) Nucleated RBC % Seg Neutrophils # Man Lymphocytes # (Manual) Monocytes # (Manual) Eosinophils # (Manual) PT INR D-Dimer 2379 H Heparin Anti-Xa Level ABG pH 7.237 L ABG pO2 90.9 H ABG HCO3 29.1 H ABG O2 Saturation ABG Base Excess ABG Hemoglobin 7.5 L Oxyhemoglobin 94.0 L Sodium Potassium Chloride Carbon Dioxide BUN Creatinine Glucose POC Glucose Calcium Magnesium Ferritin Direct Bilirubin AST ALT Alkaline Phosphatase Lactate Dehydrogenase 434 H Troponin T C-Reactive Protein 9.70 H NT-Pro-B Natriuret Pep Total Protein Albumin Crossmatch 01/28/20 01/28/20 01/28/20 06:21 12:25 18:17 WBC RBC Hgb Hct MCV RDW Plt Count Lymph % (Auto) [place] % (Auto) Lymph # Seg Neutrophils % Seg Neuts % (Manual) Lymphocytes % (Manual) Nucleated RBC % Seg Neutrophils # Man Lymphocytes # (Manual) Monocytes # (Manual) Eosinophils # (Manual) PT INR D-Dimer Heparin Anti-Xa Level ABG pH ABG pO2 ABG HCO3 ABG O2 Saturation ABG Base Excess ABG Hemoglobin Oxyhemoglobin Sodium Potassium Chloride Carbon Dioxide BUN Creatinine Glucose POC Glucose 127 H 196 H 190 H Calcium Magnesium Ferritin Direct Bilirubin AST ALT Alkaline Phosphatase Lactate Dehydrogenase Troponin T C-Reactive Protein NT-Pro-B Natriuret Pep Total Protein Albumin Crossmatch 01/28/20 01/29/20 01/29/20 23:35 04:00 04:00 WBC 12.6 H RBC 3.01 L Hgb 9.2 L Hct 29.3 L MCV 98 H RDW 18.1 H Plt Count Lymph % (Auto) [place] % (Auto) Lymph # Seg Neutrophils % Seg Neuts % (Manual) Lymphocytes % (Manual) Nucleated RBC % Seg Neutrophils # Man Lymphocytes # (Manual) Monocytes # (Manual) Eosinophils # (Manual) PT INR D-Dimer Heparin Anti-Xa Level ABG pH ABG pO2 ABG HCO3 ABG O2 Saturation ABG Base Excess ABG Hemoglobin Oxyhemoglobin Sodium 132 L Potassium Chloride 90.1 L Carbon Dioxide BUN 50 H Creatinine 3.7 H Glucose 184 H POC Glucose 177 H Calcium Magnesium Ferritin Direct Bilirubin AST 93 H ALT Alkaline Phosphatase 678 H Lactate Dehydrogenase Troponin T C-Reactive Protein NT-Pro-B Natriuret Pep Total Protein Albumin 1.7 L Crossmatch 01/29/20 01/29/20 01/29/20 05:03 11:53 16:44 WBC RBC Hgb Hct MCV RDW Plt Count Lymph % (Auto) [place] % (Auto) Lymph # Seg Neutrophils % Seg Neuts % (Manual) Lymphocytes % (Manual) Nucleated RBC % Seg Neutrophils # Man Lymphocytes # (Manual) Monocytes # (Manual) Eosinophils # (Manual) PT INR D-Dimer Heparin Anti-Xa Level ABG pH ABG pO2 ABG HCO3 ABG O2 Saturation ABG Base Excess ABG Hemoglobin Oxyhemoglobin Sodium Potassium Chloride Carbon Dioxide BUN Creatinine Glucose POC Glucose 145 H 193 H 174 H Calcium Magnesium Ferritin Direct Bilirubin AST ALT Alkaline Phosphatase Lactate Dehydrogenase Troponin T C-Reactive Protein NT-Pro-B Natriuret Pep Total Protein Albumin Crossmatch 01/29/20 01/30/20 01/30/20 23:38 04:25 11:45 WBC RBC Hgb Hct MCV RDW Plt Count Lymph % (Auto) [place] % (Auto) Lymph # Seg Neutrophils % Seg Neuts % (Manual) Lymphocytes % (Manual) Nucleated RBC % Seg Neutrophils # Man Lymphocytes # (Manual) Monocytes # (Manual) Eosinophils # (Manual) PT INR D-Dimer Heparin Anti-Xa Level ABG pH 7.253 L ABG pO2 61.8 L ABG HCO3 29.7 H ABG O2 Saturation 90.1 L ABG Base Excess ABG Hemoglobin 8.2 L Oxyhemoglobin 87.5 L Sodium Potassium Chloride Carbon Dioxide BUN Creatinine Glucose POC Glucose 144 H 191 H Calcium Magnesium Ferritin Direct Bilirubin AST ALT Alkaline Phosphatase Lactate Dehydrogenase Troponin T C-Reactive Protein NT-Pro-B Natriuret Pep Total Protein Albumin Crossmatch 01/30/20 01/31/20 01/31/20 18:21 00:04 03:52 WBC RBC Hgb Hct MCV RDW Plt Count Lymph % (Auto) [place] % (Auto) Lymph # Seg Neutrophils % Seg Neuts % (Manual) Lymphocytes % (Manual) Nucleated RBC % Seg Neutrophils # Man Lymphocytes # (Manual) Monocytes # (Manual) Eosinophils # (Manual) PT INR D-Dimer Heparin Anti-Xa Level ABG pH ABG pO2 69.3 L ABG HCO3 29.4 H ABG O2 Saturation ABG Base Excess 3.7 H ABG Hemoglobin 10.8 L Oxyhemoglobin Sodium Potassium Chloride Carbon Dioxide BUN Creatinine Glucose POC Glucose 198 H 129 H Calcium Magnesium Ferritin Direct Bilirubin AST ALT Alkaline Phosphatase Lactate Dehydrogenase Troponin T C-Reactive Protein NT-Pro-B Natriuret Pep Total Protein Albumin Crossmatch 01/31/20 01/31/20 01/31/20 04:00 04:16 05:12 WBC 16.7 H RBC 2.73 L Hgb 8.3 L Hct 25.7 L MCV RDW 18.0 H Plt Count Lymph % (Auto) [place] % (Auto) Lymph # Seg Neutrophils % Seg Neuts % (Manual) 92.0 H Lymphocytes % (Manual) 2.0 L Nucleated RBC % Seg Neutrophils # Man 15.4 H Lymphocytes # (Manual) 0.3 L Monocytes # (Manual) 1.0 H Eosinophils # (Manual) PT INR D-Dimer Heparin Anti-Xa Level ABG pH ABG pO2 ABG HCO3 ABG O2 Saturation ABG Base Excess ABG Hemoglobin Oxyhemoglobin Sodium 130 L Potassium Chloride 90.1 L Carbon Dioxide BUN 61 H Creatinine 3.4 H Glucose 128 H POC Glucose 157 H Calcium Magnesium Ferritin Direct Bilirubin AST 103 H ALT 63 H Alkaline Phosphatase 534 H Lactate Dehydrogenase Troponin T C-Reactive Protein NT-Pro-B Natriuret Pep Total Protein Albumin 2.1 L Crossmatch 01/31/20 01/31/20 01/31/20 11:50 17:39 18:47 WBC RBC Hgb Hct MCV RDW Plt Count Lymph % (Auto) [place] % (Auto) Lymph # Seg Neutrophils % Seg Neuts % (Manual) Lymphocytes % (Manual) Nucleated RBC % Seg Neutrophils # Man Lymphocytes # (Manual) Monocytes # (Manual) Eosinophils # (Manual) PT INR D-Dimer Heparin Anti-Xa Level ABG pH ABG pO2 ABG HCO3 ABG O2 Saturation ABG Base Excess ABG Hemoglobin Oxyhemoglobin Sodium Potassium Chloride Carbon Dioxide BUN Creatinine Glucose POC Glucose 129 H 51 L 172 H Calcium Magnesium Ferritin Direct Bilirubin AST ALT Alkaline Phosphatase Lactate Dehydrogenase Troponin T C-Reactive Protein NT-Pro-B Natriuret Pep Total Protein Albumin Crossmatch 02/01/20 02/01/20 02/01/20 03:49 03:49 05:00 WBC 17.4 H RBC 2.68 L Hgb 8.0 L Hct 25.2 L MCV RDW 18.4 H Plt Count Lymph % (Auto) [place] % (Auto) Lymph # Seg Neutrophils % Seg Neuts % (Manual) Lymphocytes % (Manual) Nucleated RBC % Seg Neutrophils # Man Lymphocytes # (Manual) Monocytes # (Manual) Eosinophils # (Manual) PT INR D-Dimer Heparin Anti-Xa Level ABG pH 7.290 L ABG pO2 ABG HCO3 26.8 H ABG O2 Saturation ABG Base Excess ABG Hemoglobin 7.5 L Oxyhemoglobin 94.2 L Sodium 133 L Potassium Chloride 90.8 L Carbon Dioxide 21 L BUN 90 H Creatinine 4.6 H Glucose 145 H POC Glucose Calcium Magnesium Ferritin Direct Bilirubin AST ALT Alkaline Phosphatase Lactate Dehydrogenase Troponin T C-Reactive Protein NT-Pro-B Natriuret Pep Total Protein Albumin Crossmatch 02/01/20 02/01/20 02/01/20 05:34 06:09 12:42 WBC RBC Hgb Hct MCV RDW Plt Count Lymph % (Auto) [place] % (Auto) Lymph # Seg Neutrophils % Seg Neuts % (Manual) Lymphocytes % (Manual) Nucleated RBC % Seg Neutrophils # Man Lymphocytes # (Manual) Monocytes # (Manual) Eosinophils # (Manual) PT INR D-Dimer Heparin Anti-Xa Level ABG pH ABG pO2 ABG HCO3 ABG O2 Saturation ABG Base Excess ABG Hemoglobin Oxyhemoglobin Sodium Potassium Chloride Carbon Dioxide BUN Creatinine Glucose POC Glucose 166 H 143 H 218 H Calcium Magnesium Ferritin Direct Bilirubin AST ALT Alkaline Phosphatase Lactate Dehydrogenase Troponin T C-Reactive Protein NT-Pro-B Natriuret Pep Total Protein Albumin Crossmatch 02/01/20 02/01/20 02/02/20 17:38 18:24 05:00 WBC RBC Hgb Hct MCV RDW Plt Count Lymph % (Auto) [place] % (Auto) Lymph # Seg Neutrophils % Seg Neuts % (Manual) Lymphocytes % (Manual) Nucleated RBC % Seg Neutrophils # Man Lymphocytes # (Manual) Monocytes # (Manual) Eosinophils # (Manual) PT INR D-Dimer Heparin Anti-Xa Level ABG pH 7.317 L ABG pO2 ABG HCO3 28.2 H ABG O2 Saturation ABG Base Excess ABG Hemoglobin 10.1 L Oxyhemoglobin 94.0 L Sodium Potassium Chloride Carbon Dioxide BUN Creatinine Glucose POC Glucose 158 H 233 H Calcium Magnesium Ferritin Direct Bilirubin AST ALT Alkaline Phosphatase Lactate Dehydrogenase Troponin T C-Reactive Protein NT-Pro-B Natriuret Pep Total Protein Albumin Crossmatch 02/02/20 02/02/20 02/02/20 05:44 05:44 05:44 WBC 16.0 H RBC 2.85 L Hgb 8.3 L Hct 26.3 L MCV RDW 18.6 H Plt Count Lymph % (Auto) [place] % (Auto) Lymph # Seg Neutrophils % Seg Neuts % (Manual) 91.0 H Lymphocytes % (Manual) 2.0 L Nucleated RBC % Seg Neutrophils # Man 14.6 H Lymphocytes # (Manual) 0.3 L Monocytes # (Manual) Eosinophils # (Manual) PT INR D-Dimer Heparin Anti-Xa Level 0.77 H ABG pH ABG pO2 ABG HCO3 ABG O2 Saturation ABG Base Excess ABG Hemoglobin Oxyhemoglobin Sodium Potassium Chloride 95.5 L Carbon Dioxide BUN 57 H Creatinine 3.0 H Glucose 144 H POC Glucose Calcium 8.1 L Magnesium Ferritin Direct Bilirubin 0.3 H AST 179 H ALT 106 H Alkaline Phosphatase 557 H Lactate Dehydrogenase Troponin T C-Reactive Protein NT-Pro-B Natriuret Pep Total Protein 6.1 L Albumin 2.3 L Crossmatch 02/02/20 02/02/20 02/02/20 11:17 11:33 12:24 WBC RBC Hgb Hct MCV RDW Plt Count Lymph % (Auto) [place] % (Auto) Lymph # Seg Neutrophils % Seg Neuts % (Manual) Lymphocytes % (Manual) Nucleated RBC % Seg Neutrophils # Man Lymphocytes # (Manual) Monocytes # (Manual) Eosinophils # (Manual) PT INR D-Dimer Heparin Anti-Xa Level ABG pH ABG pO2 ABG HCO3 ABG O2 Saturation ABG Base Excess ABG Hemoglobin Oxyhemoglobin Sodium Potassium Chloride Carbon Dioxide BUN Creatinine Glucose POC Glucose < 40 L < 40 L 224 H Calcium Magnesium Ferritin Direct Bilirubin AST ALT Alkaline Phosphatase Lactate Dehydrogenase Troponin T C-Reactive Protein NT-Pro-B Natriuret Pep Total Protein Albumin Crossmatch 02/02/20 02/02/20 02/03/20 12:33 17:42 00:25 WBC RBC Hgb Hct MCV RDW Plt Count Lymph % (Auto) [place] % (Auto) Lymph # Seg Neutrophils % Seg Neuts % (Manual) Lymphocytes % (Manual) Nucleated RBC % Seg Neutrophils # Man Lymphocytes # (Manual) Monocytes # (Manual) Eosinophils # (Manual) PT INR D-Dimer Heparin Anti-Xa Level ABG pH ABG pO2 ABG HCO3 ABG O2 Saturation ABG Base Excess ABG Hemoglobin Oxyhemoglobin Sodium Potassium Chloride Carbon Dioxide BUN Creatinine Glucose 296 H POC Glucose 228 H < 40 L Calcium Magnesium Ferritin Direct Bilirubin AST ALT Alkaline Phosphatase Lactate Dehydrogenase Troponin T C-Reactive Protein NT-Pro-B Natriuret Pep Total Protein Albumin Crossmatch 02/03/20 02/03/20 02/03/20 00:27 03:59 03:59 WBC 22.9 H RBC 2.80 L Hgb 8.3 L Hct 27.4 L MCV 98 H RDW 19.2 H Plt Count Lymph % (Auto) [place] % (Auto) Lymph # Seg Neutrophils % Seg Neuts % (Manual) 92.0 H Lymphocytes % (Manual) 4.0 L Nucleated RBC % Seg Neutrophils # Man 21.1 H Lymphocytes # (Manual) 0.9 L Monocytes # (Manual) Eosinophils # (Manual) PT INR D-Dimer Heparin Anti-Xa Level ABG pH ABG pO2 ABG HCO3 ABG O2 Saturation ABG Base Excess ABG Hemoglobin Oxyhemoglobin Sodium 134 L Potassium 3.5 L Chloride Carbon Dioxide 21 L BUN 40 H Creatinine 2.6 H Glucose 180 H POC Glucose 198 H Calcium Magnesium Ferritin Direct Bilirubin AST ALT Alkaline Phosphatase Lactate Dehydrogenase Troponin T C-Reactive Protein NT-Pro-B Natriuret Pep Total Protein Albumin Crossmatch 02/03/20 02/03/20 02/03/20 04:48 05:00 12:21 WBC RBC Hgb Hct MCV RDW Plt Count Lymph % (Auto) [place] % (Auto) Lymph # Seg Neutrophils % Seg Neuts % (Manual) Lymphocytes % (Manual) Nucleated RBC % Seg Neutrophils # Man Lymphocytes # (Manual) Monocytes # (Manual) Eosinophils # (Manual) PT INR D-Dimer Heparin Anti-Xa Level ABG pH 7.315 L ABG pO2 97.3 H ABG HCO3 28.5 H ABG O2 Saturation ABG Base Excess ABG Hemoglobin 8.3 L Oxyhemoglobin 94.8 L Sodium Potassium Chloride Carbon Dioxide BUN Creatinine Glucose POC Glucose 182 H 201 H Calcium Magnesium Ferritin Direct Bilirubin AST ALT Alkaline Phosphatase Lactate Dehydrogenase Troponin T C-Reactive Protein NT-Pro-B Natriuret Pep Total Protein Albumin Crossmatch 02/03/20 02/03/20 02/04/20 17:43 23:36 04:50 WBC RBC Hgb Hct MCV RDW Plt Count Lymph % (Auto) [place] % (Auto) Lymph # Seg Neutrophils % Seg Neuts % (Manual) Lymphocytes % (Manual) Nucleated RBC % Seg Neutrophils # Man Lymphocytes # (Manual) Monocytes # (Manual) Eosinophils # (Manual) PT INR D-Dimer Heparin Anti-Xa Level ABG pH ABG pO2 ABG HCO3 ABG O2 Saturation ABG Base Excess ABG Hemoglobin Oxyhemoglobin Sodium 135 L Potassium Chloride 96.3 L Carbon Dioxide 21 L BUN 63 H Creatinine 4.1 H D Glucose 156 H POC Glucose 224 H 146 H Calcium 8.2 L Magnesium Ferritin Direct Bilirubin AST ALT Alkaline Phosphatase Lactate Dehydrogenase Troponin T C-Reactive Protein NT-Pro-B Natriuret Pep Total Protein Albumin Crossmatch 02/04/20 02/04/20 02/04/20 04:50 05:30 05:40 WBC 18.3 H RBC 2.31 L Hgb 6.9 L Hct 22.0 L MCV RDW 18.2 H Plt Count Lymph % (Auto) [place] % (Auto) Lymph # Seg Neutrophils % Seg Neuts % (Manual) 85.0 H Lymphocytes % (Manual) 4.0 L Nucleated RBC % 1.0 H Seg Neutrophils # Man 15.6 H Lymphocytes # (Manual) 0.7 L Monocytes # (Manual) Eosinophils # (Manual) PT INR D-Dimer Heparin Anti-Xa Level ABG pH 7.317 L ABG pO2 77.7 L ABG HCO3 27.4 H ABG O2 Saturation ABG Base Excess ABG Hemoglobin 8.0 L Oxyhemoglobin 94.5 L Sodium Potassium Chloride Carbon Dioxide BUN Creatinine Glucose POC Glucose 202 H Calcium Magnesium Ferritin Direct Bilirubin AST ALT Alkaline Phosphatase Lactate Dehydrogenase Troponin T C-Reactive Protein NT-Pro-B Natriuret Pep Total Protein Albumin Crossmatch 02/04/20 02/04/20 02/04/20 10:47 12:53 18:44 WBC RBC Hgb Hct MCV RDW Plt Count Lymph % (Auto) [place] % (Auto) Lymph # Seg Neutrophils % Seg Neuts % (Manual) Lymphocytes % (Manual) Nucleated RBC % Seg Neutrophils # Man Lymphocytes # (Manual) Monocytes # (Manual) Eosinophils # (Manual) PT INR D-Dimer Heparin Anti-Xa Level ABG pH ABG pO2 ABG HCO3 ABG O2 Saturation ABG Base Excess ABG Hemoglobin Oxyhemoglobin Sodium Potassium Chloride Carbon Dioxide BUN Creatinine Glucose POC Glucose 197 H 143 H Calcium Magnesium Ferritin Direct Bilirubin AST ALT Alkaline Phosphatase Lactate Dehydrogenase Troponin T C-Reactive Protein NT-Pro-B Natriuret Pep Total Protein Albumin Crossmatch See Detail 02/05/20 02/05/20 02/05/20 00:43 04:14 04:35 WBC RBC Hgb Hct MCV RDW Plt Count Lymph % (Auto) [place] % (Auto) Lymph # Seg Neutrophils % Seg Neuts % (Manual) Lymphocytes % (Manual) Nucleated RBC % Seg Neutrophils # Man Lymphocytes # (Manual) Monocytes # (Manual) Eosinophils # (Manual) PT INR D-Dimer Heparin Anti-Xa Level ABG pH 7.327 L ABG pO2 75.5 L ABG HCO3 30.1 H ABG O2 Saturation ABG Base Excess 3.5 H ABG Hemoglobin 8.4 L Oxyhemoglobin 93.8 L Sodium 134 L Potassium 3.3 L Chloride 97.3 L Carbon Dioxide BUN 38 H Creatinine 2.2 H Glucose 187 H POC Glucose 163 H Calcium 8.1 L Magnesium Ferritin Direct Bilirubin AST ALT Alkaline Phosphatase Lactate Dehydrogenase Troponin T C-Reactive Protein NT-Pro-B Natriuret Pep Total Protein Albumin Crossmatch 02/05/20 02/05/20 02/05/20 04:35 05:16 12:17 WBC 24.4 H RBC 2.75 L Hgb 7.9 L Hct 25.2 L MCV RDW 18.1 H Plt Count Lymph % (Auto) [place] % (Auto) Lymph # Seg Neutrophils % Seg Neuts % (Manual) 96.0 H Lymphocytes % (Manual) 1.0 L Nucleated RBC % Seg Neutrophils # Man 23.4 H Lymphocytes # (Manual) 0.2 L Monocytes # (Manual) Eosinophils # (Manual) 0.5 H PT INR D-Dimer Heparin Anti-Xa Level ABG pH ABG pO2 ABG HCO3 ABG O2 Saturation ABG Base Excess ABG Hemoglobin Oxyhemoglobin Sodium Potassium Chloride Carbon Dioxide BUN Creatinine Glucose POC Glucose 196 H 174 H Calcium Magnesium Ferritin Direct Bilirubin AST ALT Alkaline Phosphatase Lactate Dehydrogenase Troponin T C-Reactive Protein NT-Pro-B Natriuret Pep Total Protein Albumin Crossmatch 02/05/20 02/05/20 02/05/20 13:55 13:55 13:55 WBC RBC Hgb Hct MCV RDW Plt Count Lymph % (Auto) [place] % (Auto) Lymph # Seg Neutrophils % Seg Neuts % (Manual) Lymphocytes % (Manual) Nucleated RBC % Seg Neutrophils # Man Lymphocytes # (Manual) Monocytes # (Manual) Eosinophils # (Manual) PT INR D-Dimer 2896.73 H Heparin Anti-Xa Level ABG pH ABG pO2 ABG HCO3 ABG O2 Saturation ABG Base Excess ABG Hemoglobin Oxyhemoglobin Sodium Potassium Chloride Carbon Dioxide BUN Creatinine Glucose POC Glucose Calcium Magnesium Ferritin > 2000.0 H Direct Bilirubin AST ALT Alkaline Phosphatase Lactate Dehydrogenase 311 H Troponin T C-Reactive Protein 17.30 H NT-Pro-B Natriuret Pep Total Protein Albumin Crossmatch 02/05/20 02/05/20 02/06/20 17:20 21:53 04:50 WBC RBC Hgb Hct MCV RDW Plt Count Lymph % (Auto) [place] % (Auto) Lymph # Seg Neutrophils % Seg Neuts % (Manual) Lymphocytes % (Manual) Nucleated RBC % Seg Neutrophils # Man Lymphocytes # (Manual) Monocytes # (Manual) Eosinophils # (Manual) PT INR D-Dimer Heparin Anti-Xa Level ABG pH 7.349 L ABG pO2 64.5 L ABG HCO3 28.4 H ABG O2 Saturation 94.0 L ABG Base Excess ABG Hemoglobin 8.4 L Oxyhemoglobin 91.8 L Sodium Potassium Chloride Carbon Dioxide BUN Creatinine Glucose POC Glucose 191 H 200 H Calcium Magnesium Ferritin Direct Bilirubin AST ALT Alkaline Phosphatase Lactate Dehydrogenase Troponin T C-Reactive Protein NT-Pro-B Natriuret Pep Total Protein Albumin Crossmatch 02/06/20 02/06/20 02/06/20 05:55 05:55 05:58 WBC 22.4 H RBC 3.02 L Hgb 8.5 L Hct 27.6 L MCV RDW 18.8 H Plt Count Lymph % (Auto) [place] % (Auto) Lymph # Seg Neutrophils % Seg Neuts % (Manual) Lymphocytes % (Manual) Nucleated RBC % Seg Neutrophils # Man Lymphocytes # (Manual) Monocytes # (Manual) Eosinophils # (Manual) PT INR D-Dimer Heparin Anti-Xa Level ABG pH ABG pO2 ABG HCO3 ABG O2 Saturation ABG Base Excess ABG Hemoglobin Oxyhemoglobin Sodium 136 L Potassium Chloride 96.4 L Carbon Dioxide BUN 66 H Creatinine 3.6 H D Glucose 139 H POC Glucose 110 H Calcium Magnesium Ferritin Direct Bilirubin AST ALT Alkaline Phosphatase Lactate Dehydrogenase Troponin T C-Reactive Protein NT-Pro-B Natriuret Pep Total Protein Albumin Crossmatch 02/06/20 02/06/20 02/06/20 12:19 17:52 23:47 WBC RBC Hgb Hct MCV RDW Plt Count Lymph % (Auto) [place] % (Auto) Lymph # Seg Neutrophils % Seg Neuts % (Manual) Lymphocytes % (Manual) Nucleated RBC % Seg Neutrophils # Man Lymphocytes # (Manual) Monocytes # (Manual) Eosinophils # (Manual) PT INR D-Dimer Heparin Anti-Xa Level ABG pH ABG pO2 ABG HCO3 ABG O2 Saturation ABG Base Excess ABG Hemoglobin Oxyhemoglobin Sodium Potassium Chloride Carbon Dioxide BUN Creatinine Glucose POC Glucose 185 H 185 H 173 H Calcium Magnesium Ferritin Direct Bilirubin AST ALT Alkaline Phosphatase Lactate Dehydrogenase Troponin T C-Reactive Protein NT-Pro-B Natriuret Pep Total Protein Albumin Crossmatch 02/07/20 02/07/20 02/07/20 05:04 11:46 11:52 WBC RBC Hgb Hct MCV RDW Plt Count Lymph % (Auto) [place] % (Auto) Lymph # Seg Neutrophils % Seg Neuts % (Manual) Lymphocytes % (Manual) Nucleated RBC % Seg Neutrophils # Man Lymphocytes # (Manual) Monocytes # (Manual) Eosinophils # (Manual) PT INR D-Dimer Heparin Anti-Xa Level ABG pH ABG pO2 ABG HCO3 ABG O2 Saturation ABG Base Excess ABG Hemoglobin Oxyhemoglobin Sodium Potassium Chloride Carbon Dioxide BUN Creatinine Glucose POC Glucose 145 H 240 H 251 H Calcium Magnesium Ferritin Direct Bilirubin AST ALT Alkaline Phosphatase Lactate Dehydrogenase Troponin T C-Reactive Protein NT-Pro-B Natriuret Pep Total Protein Albumin Crossmatch 02/07/20 02/08/20 02/08/20 18:18 00:22 05:43 WBC RBC Hgb Hct MCV RDW Plt Count Lymph % (Auto) [place] % (Auto) Lymph # Seg Neutrophils % Seg Neuts % (Manual) Lymphocytes % (Manual) Nucleated RBC % Seg Neutrophils # Man Lymphocytes # (Manual) Monocytes # (Manual) Eosinophils # (Manual) PT INR D-Dimer Heparin Anti-Xa Level ABG pH ABG pO2 ABG HCO3 ABG O2 Saturation ABG Base Excess ABG Hemoglobin Oxyhemoglobin Sodium Potassium Chloride Carbon Dioxide BUN Creatinine Glucose POC Glucose 225 H 274 H 307 H Calcium Magnesium Ferritin Direct Bilirubin AST ALT Alkaline Phosphatase Lactate Dehydrogenase Troponin T C-Reactive Protein NT-Pro-B Natriuret Pep Total Protein Albumin Crossmatch 02/08/20 02/08/20 02/08/20 09:40 12:09 17:42 WBC RBC Hgb Hct MCV RDW Plt Count Lymph % (Auto) [place] % (Auto) Lymph # Seg Neutrophils % Seg Neuts % (Manual) Lymphocytes % (Manual) Nucleated RBC % Seg Neutrophils # Man Lymphocytes # (Manual) Monocytes # (Manual) Eosinophils # (Manual) PT INR D-Dimer Heparin Anti-Xa Level ABG pH 7.167 L* ABG pO2 ABG HCO3 30.3 H ABG O2 Saturation 92.6 L ABG Base Excess ABG Hemoglobin 8.8 L Oxyhemoglobin 90.4 L Sodium Potassium Chloride Carbon Dioxide BUN Creatinine Glucose POC Glucose 327 H 269 H Calcium Magnesium Ferritin Direct Bilirubin AST ALT Alkaline Phosphatase Lactate Dehydrogenase Troponin T C-Reactive Protein NT-Pro-B Natriuret Pep Total Protein Albumin Crossmatch 02/08/20 02/09/20 02/09/20 20:45 01:16 04:48 WBC 22.9 H RBC 2.86 L Hgb 8.3 L Hct 26.2 L MCV RDW 18.0 H Plt Count 507 H Lymph % (Auto) [place] % (Auto) Lymph # Seg Neutrophils % Seg Neuts % (Manual) Lymphocytes % (Manual) Nucleated RBC % Seg Neutrophils # Man Lymphocytes # (Manual) Monocytes # (Manual) Eosinophils # (Manual) PT INR D-Dimer Heparin Anti-Xa Level ABG pH ABG pO2 79.1 L ABG HCO3 31.7 H ABG O2 Saturation ABG Base Excess 4.6 H ABG Hemoglobin Oxyhemoglobin 93.5 L Sodium Potassium Chloride Carbon Dioxide BUN Creatinine Glucose POC Glucose 150 H Calcium Magnesium Ferritin Direct Bilirubin AST ALT Alkaline Phosphatase Lactate Dehydrogenase Troponin T C-Reactive Protein NT-Pro-B Natriuret Pep Total Protein Albumin Crossmatch 02/09/20 02/09/20 02/09/20 04:48 05:14 13:11 WBC RBC Hgb Hct MCV RDW Plt Count Lymph % (Auto) [place] % (Auto) Lymph # Seg Neutrophils % Seg Neuts % (Manual) Lymphocytes % (Manual) Nucleated RBC % Seg Neutrophils # Man Lymphocytes # (Manual) Monocytes # (Manual) Eosinophils # (Manual) PT INR D-Dimer Heparin Anti-Xa Level ABG pH ABG pO2 ABG HCO3 ABG O2 Saturation ABG Base Excess ABG Hemoglobin Oxyhemoglobin Sodium Potassium Chloride 93.9 L Carbon Dioxide BUN 59 H Creatinine 2.5 H Glucose 309 H POC Glucose 356 H 184 H Calcium Magnesium Ferritin Direct Bilirubin AST ALT Alkaline Phosphatase Lactate Dehydrogenase Troponin T C-Reactive Protein NT-Pro-B Natriuret Pep Total Protein Albumin Crossmatch 02/09/20 02/10/20 02/10/20 16:53 00:20 05:38 WBC RBC Hgb Hct MCV RDW Plt Count Lymph % (Auto) [place] % (Auto) Lymph # Seg Neutrophils % Seg Neuts % (Manual) Lymphocytes % (Manual) Nucleated RBC % Seg Neutrophils # Man Lymphocytes # (Manual) Monocytes # (Manual) Eosinophils # (Manual) PT INR D-Dimer Heparin Anti-Xa Level ABG pH ABG pO2 ABG HCO3 ABG O2 Saturation ABG Base Excess ABG Hemoglobin Oxyhemoglobin Sodium Potassium Chloride Carbon Dioxide BUN Creatinine Glucose POC Glucose 357 H 298 H 300 H Calcium Magnesium Ferritin Direct Bilirubin AST ALT Alkaline Phosphatase Lactate Dehydrogenase Troponin T C-Reactive Protein NT-Pro-B Natriuret Pep Total Protein Albumin Crossmatch 02/10/20 02/10/20 02/11/20 12:38 18:17 00:08 WBC RBC Hgb Hct MCV RDW Plt Count Lymph % (Auto) [place] % (Auto) Lymph # Seg Neutrophils % Seg Neuts % (Manual) Lymphocytes % (Manual) Nucleated RBC % Seg Neutrophils # Man Lymphocytes # (Manual) Monocytes # (Manual) Eosinophils # (Manual) PT INR D-Dimer Heparin Anti-Xa Level ABG pH ABG pO2 ABG HCO3 ABG O2 Saturation ABG Base Excess ABG Hemoglobin Oxyhemoglobin Sodium Potassium Chloride Carbon Dioxide BUN Creatinine Glucose POC Glucose 350 H 271 H 164 H Calcium Magnesium Ferritin Direct Bilirubin AST ALT Alkaline Phosphatase Lactate Dehydrogenase Troponin T C-Reactive Protein NT-Pro-B Natriuret Pep Total Protein Albumin Crossmatch 02/11/20 02/11/20 02/11/20 05:34 12:18 17:27 WBC RBC Hgb Hct MCV RDW Plt Count Lymph % (Auto) [place] % (Auto) Lymph # Seg Neutrophils % Seg Neuts % (Manual) Lymphocytes % (Manual) Nucleated RBC % Seg Neutrophils # Man Lymphocytes # (Manual) Monocytes # (Manual) Eosinophils # (Manual) PT INR D-Dimer Heparin Anti-Xa Level ABG pH ABG pO2 ABG HCO3 ABG O2 Saturation ABG Base Excess ABG Hemoglobin Oxyhemoglobin Sodium Potassium Chloride Carbon Dioxide BUN Creatinine Glucose POC Glucose 274 H 246 H 174 H Calcium Magnesium Ferritin Direct Bilirubin AST ALT Alkaline Phosphatase Lactate Dehydrogenase Troponin T C-Reactive Protein NT-Pro-B Natriuret Pep Total Protein Albumin Crossmatch 02/12/20 02/12/20 02/12/20 00:19 05:00 05:00 WBC 31.3 H RBC 2.79 L Hgb 8.0 L Hct 25.4 L MCV RDW 18.4 H Plt Count 566 H Lymph % (Auto) [place] % (Auto) Lymph # Seg Neutrophils % Seg Neuts % (Manual) Lymphocytes % (Manual) Nucleated RBC % Seg Neutrophils # Man Lymphocytes # (Manual) Monocytes # (Manual) Eosinophils # (Manual) PT INR D-Dimer Heparin Anti-Xa Level ABG pH ABG pO2 ABG HCO3 ABG O2 Saturation ABG Base Excess ABG Hemoglobin Oxyhemoglobin Sodium 136 L Potassium Chloride 95.6 L Carbon Dioxide BUN 102 H Creatinine 3.0 H Glucose 170 H POC Glucose 227 H Calcium Magnesium Ferritin Direct Bilirubin AST ALT Alkaline Phosphatase Lactate Dehydrogenase Troponin T C-Reactive Protein NT-Pro-B Natriuret Pep Total Protein Albumin Crossmatch 02/12/20 02/12/20 02/12/20 05:25 12:21 18:58 WBC RBC Hgb Hct MCV RDW Plt Count Lymph % (Auto) [place] % (Auto) Lymph # Seg Neutrophils % Seg Neuts % (Manual) Lymphocytes % (Manual) Nucleated RBC % Seg Neutrophils # Man Lymphocytes # (Manual) Monocytes # (Manual) Eosinophils # (Manual) PT INR D-Dimer Heparin Anti-Xa Level ABG pH ABG pO2 ABG HCO3 ABG O2 Saturation ABG Base Excess ABG Hemoglobin Oxyhemoglobin Sodium Potassium Chloride Carbon Dioxide BUN Creatinine Glucose POC Glucose 157 H 230 H 197 H Calcium Magnesium Ferritin Direct Bilirubin AST ALT Alkaline Phosphatase Lactate Dehydrogenase Troponin T C-Reactive Protein NT-Pro-B Natriuret Pep Total Protein Albumin Crossmatch 02/12/20 02/13/20 02/13/20 23:36 05:30 08:39 WBC RBC Hgb Hct MCV RDW Plt Count Lymph % (Auto) [place] % (Auto) Lymph # Seg Neutrophils % Seg Neuts % (Manual) Lymphocytes % (Manual) Nucleated RBC % Seg Neutrophils # Man Lymphocytes # (Manual) Monocytes # (Manual) Eosinophils # (Manual) PT INR D-Dimer Heparin Anti-Xa Level ABG pH ABG pO2 ABG HCO3 ABG O2 Saturation ABG Base Excess ABG Hemoglobin Oxyhemoglobin Sodium 135 L Potassium Chloride 93.8 L Carbon Dioxide BUN 72 H Creatinine 2.2 H Glucose 212 H POC Glucose 166 H 247 H Calcium Magnesium Ferritin Direct Bilirubin AST ALT Alkaline Phosphatase Lactate Dehydrogenase Troponin T C-Reactive Protein NT-Pro-B Natriuret Pep Total Protein Albumin Crossmatch 02/13/20 02/13/20 02/13/20 13:19 18:05 23:37 WBC RBC Hgb Hct MCV RDW Plt Count Lymph % (Auto) [place] % (Auto) Lymph # Seg Neutrophils % Seg Neuts % (Manual) Lymphocytes % (Manual) Nucleated RBC % Seg Neutrophils # Man Lymphocytes # (Manual) Monocytes # (Manual) Eosinophils # (Manual) PT INR D-Dimer Heparin Anti-Xa Level ABG pH ABG pO2 ABG HCO3 ABG O2 Saturation ABG Base Excess ABG Hemoglobin Oxyhemoglobin Sodium Potassium Chloride Carbon Dioxide BUN Creatinine Glucose POC Glucose 244 H 232 H 233 H Calcium Magnesium Ferritin Direct Bilirubin AST ALT Alkaline Phosphatase Lactate Dehydrogenase Troponin T C-Reactive Protein NT-Pro-B Natriuret Pep Total Protein Albumin Crossmatch 02/14/20 02/14/20 02/14/20 05:11 11:36 17:36 WBC RBC Hgb Hct MCV RDW Plt Count Lymph % (Auto) [place] % (Auto) Lymph # Seg Neutrophils % Seg Neuts % (Manual) Lymphocytes % (Manual) Nucleated RBC % Seg Neutrophils # Man Lymphocytes # (Manual) Monocytes # (Manual) Eosinophils # (Manual) PT INR D-Dimer Heparin Anti-Xa Level ABG pH ABG pO2 ABG HCO3 ABG O2 Saturation ABG Base Excess ABG Hemoglobin Oxyhemoglobin Sodium Potassium Chloride Carbon Dioxide BUN Creatinine Glucose POC Glucose 239 H 67 L 216 H Calcium Magnesium Ferritin Direct Bilirubin AST ALT Alkaline Phosphatase Lactate Dehydrogenase Troponin T C-Reactive Protein NT-Pro-B Natriuret Pep Total Protein Albumin Crossmatch 02/14/20 02/14/20 02/15/20 18:30 23:41 04:58 WBC 36.1 H RBC 3.53 L Hgb Hct MCV RDW 19.4 H Plt Count 750 H Lymph % (Auto) [place] % (Auto) Lymph # Seg Neutrophils % Seg Neuts % (Manual) Lymphocytes % (Manual) Nucleated RBC % Seg Neutrophils # Man Lymphocytes # (Manual) Monocytes # (Manual) Eosinophils # (Manual) PT INR D-Dimer Heparin Anti-Xa Level ABG pH ABG pO2 ABG HCO3 ABG O2 Saturation ABG Base Excess ABG Hemoglobin Oxyhemoglobin Sodium Potassium Chloride Carbon Dioxide BUN Creatinine Glucose POC Glucose 141 H 203 H Calcium Magnesium Ferritin Direct Bilirubin AST ALT Alkaline Phosphatase Lactate Dehydrogenase Troponin T C-Reactive Protein NT-Pro-B Natriuret Pep Total Protein Albumin Crossmatch 02/15/20 02/15/20 04:58 04:58 WBC RBC Hgb Hct MCV RDW Plt Count Lymph % (Auto) [place] % (Auto) Lymph # Seg Neutrophils % Seg Neuts % (Manual) Lymphocytes % (Manual) Nucleated RBC % Seg Neutrophils # Man Lymphocytes # (Manual) Monocytes # (Manual) Eosinophils # (Manual) PT 15.2 H INR 1.18 H D-Dimer Heparin Anti-Xa Level ABG pH ABG pO2 ABG HCO3 ABG O2 Saturation ABG Base Excess ABG Hemoglobin Oxyhemoglobin Sodium Potassium 5.4 H Chloride 94.5 L Carbon Dioxide BUN 102 H Creatinine 3.1 H Glucose POC Glucose Calcium Magnesium Ferritin Direct Bilirubin AST ALT Alkaline Phosphatase Lactate Dehydrogenase Troponin T C-Reactive Protein NT-Pro-B Natriuret Pep Total Protein Albumin Crossmatch Allied health notes reviewed: nursing
[2020-02-15] MEDS: INSULIN LISPRO 100 UNIT/ML SUB-Q SCH ×2 (12:00→18:00)
--- NOTE | 2020-02-15 13:33 | Progress Note ---
Assessment and Plan Assessment and plan: 64-year-old female with history of hyperlipidemia, end-stage renal disease on dialysis, hypertension and depression admitted on due to a week history of chest pain and shortness of breath and generalized body swelling. Patient had MELVIN and orthopnea prior to admission. In spite of dialysis, the patient did not feel better. No nausea vomiting reported on admission. No fever or chills. No exposure to coronavirus patients or family members. On arrival, temp 99-100.5. WBC normal with lymphopenia. Trop high. Blood culture negative. CXR steph interstitial infiltrates. The patient was admitted with suspected COVID- 19 which was later confirmed. Patient was noted to have elevated inflammatory markers of ferritin, CRP, LDH and d-dimer. The patient was admitted with diagnosis of acute hypoxemic respiratory failure secondary to COVID-19 infection/viral pneumonia, ARDS. Patient also had other complications with acute on chronic diastolic heart failure secondary to volume overload. Patient also underwent stress test that was negative for ischemia for chest pain. Bilateral pneumonia. Continue antibiotics per ID ARDS. Etiology secondary to above. Acute hypoxemic respiratory failure. Continue oxygen to maintain sats greater than 92% Appears stable on HFNC; wean FiO2 then flow Chest pain Stress test neg for ischemia GERD and costochondritis in differential diagnosis Volume overload s/p hemodialysis Nephrology consulted,following Acute on Chronic diastolic CHF exacerbation Secondary to volume overload End stage renal disease on dialysis Nephrology following T2DM (type 2 diabetes mellitus) Continue continue coverage Check hemoglobin A1c Hypertension Continue antihypertensives Hyponatremia Secondary to increased volume--dilutional DVT prophylaxis On heparin and GI prophylaxis 01/11 Covid 19 survey testing sent, nasal swab done 01/10 01/12 Patient has acute resp failure. may need Oxygen on dc. awaiting Covid result 01/13 Still has shortness of breath, awaiting Covid test. 01/14 Pt still dyspneic, await covid testing, Pulse ox 83% 01/16/2020. Patient remains dyspneic. Follow-up COVID testing. 01/17/2020. Patient still requiring large amounts of oxygen. Patient currently with 15 L satting at 95%. Patient with increased inflammatory markers. Follow-up chest x-ray today. 01/18/20--Patient still requiring large amounts of oxygen. Patient currently with 15 L %. Patient with increased inflammatory markers. 01/19/2020 very elevated inflammatory markers- ferritin> 2000, CRP >24, LDH> 600, d-dimer >1000 putting her at high risk for ARDS. Continue hydroxychloroquine 400 mg PO BID for 1 day then 200 mg PO BID for 4 days (total 5 days) with zinc 2 20 mg PO qday. Continue ceftriaxone. ContinueCOVID isolationprecautions per [facility] protocol. Continue serial Ferritin, LDH, D-Dimer, CRP every 48h 01/20/2020. Inflammatory markers remain elevated with ferritin 1826, LDH 496, CRP 19.3, and d-dimer 2072. Patient requiring high flow nasal cannula 40L, FiO2 80%. Pulmonary following. Continue antibiotics and Plaquenil. Continue COVID isolationprecautions per [facility] protocol. Patient has a high risk mortality and remains guarded. 01/21/2020. Continue antibiotics and Plaquenil. Continue COVID isolationprecautions per [facility] protocol. Maintain sats of 88% and greater. Still on HFNC, O2 weaned to 95% overnight. Sats documented at 98%. Pulmonary following and reports If patient progresses could give bipap a one hour trial to see if there is improvement, repeat ABG, if not would suggest elective intubation 01/22/2020 Patient still critically ill. Yesterday 01/20 had cardiopulmonary arrest so now intubated in ICU. Prognosis guarded. 01/23/2020 still critically ill. No more fever. Continue vent management. 01/24/20 Still critically ill, remain on vent. Continue current management. Will call . 01/25/20 Patient still critically ill. I called Davis Ramsey and gave update. He wants DNR status and says he will request withdrawal of care if patient does not get better after weekend. I discussed with Payroll And Benefits Manager. 01/26/20 patient still intubated, on vent. She means a DNR order. Discussed with Nurse 01/26 patient still critically ill, vent dependent. 01/27 patient still intubated, on vent. On levophed to keep MAP>65mmhg 01/29/2020 patient still intubated on mechanical ventilation. AC mode ventilation with rate 20, tidal volume 400, FiO2 45% and PEEP 12. patient with no fever. Patient currently with sedation of propofol. Patient received hemodialysis yesterday with approximately 3 L removed. 01/30/2020. Patient still on mechanical ventilation. AC mode ventilation with rate 20, tidal volume 400, FiO2 45% and PEEP 8. Patient with elevated alkaline phosphatase. Check abdominal ultrasound. 01/31/2020. Patient still on mechanical ventilation. PSV mode ventilation with FiO2 50% and PEEP 8 and PS=12. Follow-up abdominal ultrasound for elevated alkaline phosphatase 02/01/2020. Patient currently with PSV FiO2 50%, pressure support 12, PEEP 8. Continue PSV trials per pulmonary. Continue Levophed to maintain MAP greater than 65. Continue propofol for sedation. 02/02/2020. Patient currently on AC mode ventilation rate 20, tidal volume 450, FiO2 50% and PEEP of 6. ABG with pH of 7.31, PCO2 56.4, and PO2 85. Patient confirmed COVID-19 positive on 01/17/2020. Patient with MOSF and guarded progno sis. Follow-up abdominal ultrasound (ordered 3 days ago) for elevated alkaline phosphatase and fevers. 02/03/2020. Patient continues on mechanical ventilation AC mode with rate 20, tidal volume 450 and PEEP of 8. Patient still with temperature 100.5. Patient off sedation but requiring Levophed at 2 mics. Patient with an episode of hypoglycemia yesterday requiring D5 half-normal. Continue to monitor for hypoglycemia. Patient with MOSF and guarded prognosis. Follow-up abdominal ultrasound (ordered 4 days ago) for elevated alkaline phosphatase and fevers. 02/04/2020. Patient continues on mechanical ventilation AC mode with rate 20, tidal volume 450, FiO2 50% and PEEP of 8. Patient continues to have fevers. Patient currently on Levophed. Continue pressors to maintain map greater than 65. Hemoglobin 6.9-1 unit PRBCs ordered. Patient may be able to wean off of Levophed with volume resuscitation of PRBCs. Follow-up abdominal ultrasound (ordered 5 days ago) for elevated alkaline phosphatase and fevers. Patient's prognosis remains guarded. 02/05/2020 patient with covid-19 infection with acute resp failure, intubated, still on vent. Now off Levophed since 02/0302/06/2020 patient with Covid-19 infection. fever yesterday, none today. Continuje current management. Prognosis guarded. 02/07/2020 patient with Covid-19 infection. Still intubated, on vent. Ongoig fever. DNR code status. prognosis remains guarded. 02/08/2020 patient with Covid-19 infection. Still intubated. Ongoing weaning attempts. I called and gave update to , Mr. Davis Medina yesterday. 02/09/2020 patient with Covid-19. No fever X 48 hrs. Repeat covid-19 test negative. I discussed with yesterday 02/08/20. 02/10/2020 Patient with Covid-19. No more fever 02/11/2020 Patient with Covid 19 infection,still intubated, on vent. Plan is to arrange transfer o [facility], therapeutic case manager working on it. 02/12/2020. Continue steroids for 7 days followed by taper per ID recommendations. Antibiotics completed. Patient will likely need trach and LTAC placement. 02/13/2020. I attempted to call her Davis Ramsey to follow-up with regards to consent for trach and PEG. No answer. Await decision in regards to further goals of care. I discussed the case with pulmonary. Continu e PSB trials. Continue hemodialysis per renal. 02/14/2020. Patient continues to remain on mechanical ventilation, AC mode with rate 20, tidal volume 450, FiO2 35% and PEEP of 6. I had a discussion with the spouse Davis Ramsey and he informed that he is willing to move forward with tracheostomy and PEG placement. I have called the surgeon to reevaluate. 02/15/2020. Patient for trach and PEG placement today. Postoperatively, patient remained stable, patient will be transferred to LTAC facility potentially tomorrow. The high probability of a clinically significant, sudden or life threatening deterioration of the [immunologic and respiratory] system(s) required my full and direct attention, intervention and personal management. The aggregate critical care time was [31] minutes. This time is in addition to time spent performing reported procedures but includes the following: [x] Data Review and interpretation [x] Patient assessment and monitoring of vital signs [x] Documentation [x] Medication orders and management History Interval history: Patient on mechanical ventilation. Hospitalist Physical - Constitutional Vitals: Temp Pulse Resp BP Pulse Ox 98.2 F 97 H 21 115/42 96 02/15/20 08:00 02/15/20 13:20 02/15/20 08:00 02/15/20 08:54 02/15/20 13:20 General appearance: Present: no acute distress - EENT Eyes: Present: PERRL, EOM intact ENT: hearing intact, clear oral mucosa, dentition normal - Neck Neck: Present: supple, normal ROM - Respiratory Respiratory effort: normal Respiratory: bilateral: CTA - Cardiovascular Rhythm: regular Heart Sounds: Present: S1 & S2. Absent: gallop, rub - Extremities Extremities: no ischemia, No edema, Full ROM - Abdominal General gastrointestinal: soft, non-tender, non-distended, normal bowel sounds - Integumentary Integumentary: Present: clear, warm, dry - Neurologic Neurologic: CNII-XII intact, moves all extremities BREEZY score - Breezy Score Age > 65: (1) Yes Aspirin use within the Past 7 Days: (1) Yes 3 or more CAD Risk Factors: (1) Yes 2 or more Angina events in past 24 hrs: (1) Yes Known CAD with more than 50% Stenosis: (0) No Elevated Cardiac Markers: (0) No ST Deviation Greater than 0.5mm: (0) No BREEZY Score: 4 Results - Labs CBC & Chem 7: 02/15/20 04:58 02/15/20 04:58 Labs: Laboratory Last Values WBC 36.1 K/mm3 (4.5-11.0) H 02/15/20 04:58 RBC 3.53 M/mm3 (3.65-5.03) L 02/15/20 04:58 Hgb 10.2 gm/dl (10.1-14.3) 02/15/20 04:58 Hct 32.7 % (30.3-42.9) D 02/15/20 04:58 MCV 93 fl (79-97) 02/15/20 04:58 MCH 29 pg (28-32) 02/15/20 04:58 MCHC 31 % (30-34) 02/15/20 04:58 RDW 19.4 % (13.2-15.2) H 02/15/20 04:58 Plt Count 750 K/mm3 (140-440) H 02/15/20 04:58 Lymph % (Auto) [place] 02/03/20 03:59 [place] % (Auto) [place] 02/03/20 03:59 Eos % (Auto) [place] 02/03/20 03:59 Baso % (Auto) [place] 02/03/20 03:59 Lymph # [place] 02/03/20 03:59 [place] # [place] 02/03/20 03:59 Eos # [place] 02/03/20 03:59 Baso # [place] 02/03/20 03:59 Add Manual Diff Complete 02/05/20 04:35 Total Counted 100 02/05/20 04:35 Seg Neutrophils % [place] 02/05/20 04:35 Seg Neuts % (Manual) 96.0 % (40.0-70.0) H 02/05/20 04:35 Band Neutrophils % 0 % 02/05/20 04:35 Lymphocytes % (Manual) 1.0 % (13.4-35.0) L 02/05/20 04:35 Reactive Lymphs % (Man) 0 % 02/05/20 04:35 Monocytes % (Manual) 1.0 % (0.0-7.3) 02/05/20 04:35 Eosinophils % (Manual) 2.0 % (0.0-4.3) 02/05/20 04:35 Basophils % (Manual) 0 % (0.0-1.8) 02/05/20 04:35 Metamyelocytes % 0 % 02/05/20 04:35 Myelocytes % 0 % 02/05/20 04:35 Promyelocytes % 0 % 02/05/20 04:35 Blast Cells % 0 % 02/05/20 04:35 Nucleated RBC % Not Reportable 02/05/20 04:35 Seg Neutrophils # [place] 02/03/20 03:59 Seg Neutrophils # Man 23.4 K/mm3 (1.8-7.7) H 02/05/20 04:35 Band Neutrophils # 0.0 K/mm3 02/05/20 04:35 Lymphocytes # (Manual) 0.2 K/mm3 (1.2-5.4) L 02/05/20 04:35 Abs React Lymphs (Man) 0.0 K/mm3 02/05/20 04:35 Monocytes # (Manual) 0.2 K/mm3 (0.0-0.8) 02/05/20 04:35 Eosinophils # (Manual) 0.5 K/mm3 (0.0-0.4) H 02/05/20 04:35 Basophils # (Manual) 0.0 K/mm3 (0.0-0.1) 02/05/20 04:35 Metamyelocytes # 0.0 K/mm3 02/05/20 04:35 Myelocytes # 0.0 K/mm3 02/05/20 04:35 Promyelocytes # 0.0 K/mm3 02/05/20 04:35 Blast Cells # 0.0 K/mm3 02/05/20 04:35 WBC Morphology Not Reportable 02/05/20 04:35 Hypersegmented Neuts Not Reportable 02/05/20 04:35 Hyposegmented Neuts Not Reportable 02/05/20 04:35 Hypogranular Neuts Not Reportable 02/05/20 04:35 Smudge Cells Not Reportable 02/05/20 04:35 Toxic Granulation Not Reportable 02/05/20 04:35 Toxic Vacuolation Not Reportable 02/05/20 04:35 Dohle Bodies Not Reportable 02/05/20 04:35 Pelger-Huet Anomaly Not Reportable 02/05/20 04:35 Armando Rods Not Reportable 02/05/20 04:35 Platelet Estimate Consistent w auto 02/05/20 04:35 Clumped Platelets Not Reportable 02/05/20 04:35 Plt Clumps, EDTA Not Reportable 02/05/20 04:35 Large Platelets Not Reportable 02/05/20 04:35 Giant Platelets Not Reportable 02/05/20 04:35 Platelet Satelliting Not Reportable 02/05/20 04:35 Plt Morphology Comment Not Reportable 02/05/20 04:35 RBC Morphology Not Reportable 02/05/20 04:35 Dimorphic RBCs Not Reportable 02/05/20 04:35 Polychromasia Not Reportable 02/05/20 04:35 Hypochromasia Rare 02/05/20 04:35 Poikilocytosis Not Reportable 02/05/20 04:35 Anisocytosis Few 02/05/20 04:35 Microcytosis Not Reportable 02/05/20 04:35 Macrocytosis Rare 02/05/20 04:35 Spherocytes Not Reportable 02/05/20 04:35 Pappenheimer Bodies Not Reportable 02/05/20 04:35 Sickle Cells Not Reportable 02/05/20 04:35 Target Cells Not Reportable 02/05/20 04:35 Tear Drop Cells Not Reportable 02/05/20 04:35 Ovalocytes Not Reportable 02/05/20 04:35 Helmet Cells Not Reportable 02/05/20 04:35 [place] Bodies Not Reportable 02/05/20 04:35 [place] Rings Not Reportable 02/05/20 04:35 [place] Cells Not Reportable 02/05/20 04:35 Bite Cells Not Reportable 02/05/20 04:35 Crenated Cell Not Reportable 02/05/20 04:35 Elliptocytes Not Reportable 02/05/20 04:35 Acanthocytes (Spur) Not Reportable 02/05/20 04:35 Rouleaux Not Reportable 02/05/20 04:35 Hemoglobin C Crystals Not Reportable 02/05/20 04:35 Schistocytes Not Reportable 02/05/20 04:35 Malaria parasites Not Reportable 02/05/20 04:35 Ney Bodies Not Reportable 02/05/20 04:35 Hem Pathologist Commnt No 02/05/20 04:35 PT 15.2 Sec. (12.2-14.9) H 02/15/20 04:58 INR 1.18 (0.87-1.13) H 02/15/20 04:58 APTT 31.5 Sec. (24.2-36.6) 01/09/20 12:55 D-Dimer 2896.73 ng/mlDDU (0-234) H 02/05/20 13:55 Heparin Anti-Xa Level 0.77 U.I./ml (0.3-0.7) H 02/02/20 05:44 ABG pH 7.351 pH Units (7.350-7.450) 02/08/20 20:45 ABG pCO2 58.7 mm Hg 02/08/20 20:45 ABG pO2 79.1 mm Hg (80.0-90.0) L 02/08/20 20:45 ABG HCO3 31.7 mmol/L (20.0-26.0) H 02/08/20 20:45 ABG O2 Saturation 95.6 % (95.0-99.0) 02/08/20 20:45 ABG O2 Content 17.0 (0.0-44) 02/08/20 20:45 ABG Base Excess 4.6 mmol/L (-2.0-3.0) H 02/08/20 20:45 ABG Hemoglobin 12.9 gm/dl (12.0-16.0) 02/08/20 20:45 ABG Carboxyhemoglobin 1.7 % (0.0-5.0) 02/08/20 20:45 ABG Methemoglobin 0.5 % (0.0-1.5) 02/08/20 20:45 Oxyhemoglobin 93.5 % (95.0-99.0) L 02/08/20 20:45 FiO2 40 % 02/08/20 20:45 Sodium 140 mmol/L (137-145) 02/15/20 04:58 Potassium 5.4 mmol/L (3.6-5.0) H 02/15/20 04:58 Chloride 94.5 mmol/L (98-107) L 02/15/20 04:58 Carbon Dioxide 25 mmol/L (22-30) 02/15/20 04:58 Anion Gap 26 mmol/L 02/15/20 04:58 BUN 102 mg/dL (7-17) H 02/15/20 04:58 Creatinine 3.1 mg/dL (0.7-1.2) H 02/15/20 04:58 Estimated GFR 18 ml/min 02/15/20 04:58 BUN/Creatinine Ratio 33 % 02/15/20 04:58 Glucose 87 mg/dL (65-100) 02/15/20 04:58 POC Glucose 83 (70-105) 02/15/20 12:22 Hemoglobin A1c 5.0 % (4-6) 01/10/20 06:54 Calcium 9.6 mg/dL (8.4-10.2) 02/15/20 04:58 Phosphorus 3.30 mg/dL (2.5-4.5) 01/12/20 16:01 Magnesium 2.00 mg/dL (1.7-2.3) 01/13/20 06:11 Ferritin > 2000.0 ng/mL (13.0-400.0) H 02/05/20 13:55 Total Bilirubin 0.50 mg/dL (0.1-1.2) 02/02/20 05:44 Direct Bilirubin 0.3 mg/dL (0-0.2) H 02/02/20 05:44 Indirect Bilirubin 0.2 mg/dL 02/02/20 05:44 AST 179 units/L (5-40) H 02/02/20 05:44 ALT 106 units/L (7-56) H 02/02/20 05:44 Alkaline Phosphatase 557 units/L (35-129) H 02/02/20 05:44 Lactate Dehydrogenase 311 units/L (91-180) H 02/05/20 13:55 Troponin T 0.315 ng/mL (0.00-0.029) H* 01/10/20 06:54 C-Reactive Protein 17.30 mg/dL (0.00-1.30) H 02/05/20 13:55 NT-Pro-B Natriuret Pep 48402 pg/mL (0-900) H 01/09/20 12:55 Total Protein 6.1 g/dL (6.3-8.2) L 02/02/20 05:44 Albumin 2.3 g/dL (3.9-5) L 02/02/20 05:44 Albumin/Globulin Ratio 0.6 % 02/02/20 05:44 Triglycerides 56 mg/dL (2-149) 01/30/20 04:04 Cholesterol 123 mg/dL (50-199) 01/09/20 12:55 LDL Cholesterol Direct 66 mg/dL (50-130) 01/09/20 12:55 HDL Cholesterol 47 mg/dL (40-59) 01/09/20 12:55 Cholesterol/HDL Ratio 2.61 % 01/09/20 12:55 Random Vancomycin 23.9 ug/mL (0-40.0) 02/08/20 04:56 Coronavirus (PCR) Negative (Negative) 02/08/20 10:06 Hepatitis A IgM Ab Non-reactive (NonReactive) 01/21/20 23:40 Hep Bs Antigen Non-reactive (Negative) 01/21/20 23:40 Hep B Core IgM Ab Non-reactive (NonReactive) 01/21/20 23:40 Hepatitis C Antibody Non-reactive (NonReactive) 01/21/20 23:40 Miscellaneous Test See scanned result 01/11/20 Unknown Miscellaneous Test See scanned result 01/11/20 Unknown Blood Type O POSITIVE 02/04/20 10:47 Antibody Screen Negative 02/04/20 10:47 Crossmatch See Detail 02/04/20 10:47 Pleitez/IV: Voiding Method Indwelling Catheter IV Catheter Type [Left Chest] Infusaport IV Catheter Type [Right Peripheral IV External Jugular] IV Catheter Type [Left INT / Saline Lock External Jugular] IV Catheter Type [Left Upper AV Graft arm] Active Medications - Current Medications Current Medications: Generic Name Dose Route Start Last Admin Trade Name Freq PRN Reason Stop Dose Admin Acetaminophen 650 mg 01/09/20 16:33 02/05/20 05:58 Tylenol PO 650 mg Q4H PRN Administration Pain MILD(1-3)/Fever >100.5/MEANS Lipase/Protease/Amylase 1 each 01/23/20 14:28 02/07/20 13:[address] 10,500 Unit FEEDTUBE 1 each PRN PRN Administration For Clogged Feeding Tube Atorvastatin Calcium 40 mg 01/09/20 22:00 02/14/20 22:05 Lipitor PO 40 mg QHS PHILLY Administration Dextrose 50 ml 01/23/20 07:26 02/02/20 11:33 D50w (25gm) Syringe IV 50 ml Q30MIN PRN Administration BLOOD GLUCOSE < 70 Dextrose 25 ml 01/24/20 08:58 01/24/20 13:41 D50w (25gm) Syringe IV 25 ml Q4H PRN Administration BG < 80 MG/DL Docusate Sodium 100 mg 01/25/20 22:00 02/14/20 09:54 Colace PO 100 mg BID PHILLY Administration Epoetin Helio 20,000 unit 02/04/20 12:00 02/04/20 13:00 Procrit SUB-Q 20,000 unit SILVERIO PHILLY Administration Famotidine 20 mg 01/09/20 22:00 02/14/20 09:54 Pepcid PO 20 mg DAILY PHILLY Administration Heparin Sodium (Porcine) 5,000 unit 02/07/20 10:00 02/14/20 22:05 Heparin SUB-Q 5,000 unit Q12HR PHILLY Administration Norepinephrine 4 mg in 250 mls @ 7.5 mls/hr 01/21/20 18:00 02/11/20 15:00 Levophed Drip 4 Mg/Ns 250 Ml IV 0 mcg/min TITR PHILLY 0 mls/hr Titration Protocol 2 MCG/MIN Sodium Chloride 100 mls @ 999 mls/hr 02/12/20 08:17 Nacl 0.9% IV SILVERIO PRN Hypotension Sodium Chloride 1,000 mls @ 50 mls/hr 02/15/20 08:00 Nacl 0.9% 1000 Ml IV DIRECT PHILLY Insulin Glargine 15 units 02/10/20 13:00 02/14/20 09:54 Lantus SUB-Q 15 units DAILY PHILLY Administration Insulin Human Lispro 0 unit 02/07/20 12:00 02/14/20 18:30 Humalog SUB-Q Not Given Q6HR [facility] Protocol Lorazepam 2 mg 01/23/20 15:36 Ativan IV Q10MIN PRN Agitation Methylprednisolone Sodium Succinate 20 mg 02/14/20 14:00 02/15/20 06:42 Solu-Medrol IV 20 mg Q8HR PHILLY Administration Ondansetron HCl 4 mg 01/09/20 16:33 01/20/20 10:19 Zofran IV 4 mg Q8H PRN Administration Nausea And Vomiting Simple Syrup 15 ml 01/23/20 14:28 02/14/20 12:02 Simple Syrup FEEDTUBE 15 ml PRN PRN Administration Hypoglycemia Simple Syrup 30 ml 01/23/20 14:28 Simple Syrup FEEDTUBE PRN PRN Hypoglycemia Sodium Bicarbonate 325 mg 01/23/20 14:28 Sodium Bicarbonate FEEDTUBE PRN PRN For Clogged Feeding Tube Sodium Chloride 10 ml 01/09/20 22:00 02/14/20 22:06 Sodium Chloride Flush Syringe 10 Ml IV 10 ml BID PHILLY Administration Sodium Chloride 10 ml 01/09/20 16:33 Sodium Chloride Flush Syringe 10 Ml IV PRN PRN LINE FLUSH Nutrition/Malnutrition Assess - Dietary Evaluation Nutrition/Malnutrition Findings: Nutrition Notes Start: 01/17/20 13:49 Freq: Status: Active Protocol: Document 02/15/20 09:22 LP (Rec: 02/15/20 09:24 LP [id number]) Nutrition Notes Initial or Follow up Brief Note Current Diagnosis CKD (stage V CKD),Diabetes, Hypertension,Heart Failure, Respiratory Failure Other Pertinent Diagnosis on HD, Bilat pneu, COVID-19 (+ ) Current Diet NPO Weight Status Appropriate Subjective/Other Information Pt NPO for trach and PEG. Nutrition Intervention Follow-Up By: 02/18/20 Additional Comments Follow for TF restart
[2020-02-15] MEDS ORDERED: PHENYLEPHRINE/NS 1,000 MCG/10 ML SYRINGE (OR USE) IV ONE (14:00)
[2020-02-15] MEDS ORDERED: ROCURONIUM 50 MG/5 ML INJ IV ONE (14:00)
[2020-02-15] MEDS ORDERED: propofoL 200 MG/20 ML VIAL IV ONE (14:01)
[2020-02-15] MEDS ORDERED: SODIUM CHLORIDE*PRIMING MACHINE ONLY FOR DIALYSIS MC ONE (14:20)
--- NOTE | 2020-02-15 14:32 | Progress Note ---
Assessment and Plan Cultures: 01/10/2020 blood culture: No growth 01/21/2020 sputum culture: No growth 01/25/2020 blood culture: No growth 02/04/2020 blood culture: no growth A/P: 64/F with #Sepsis with shock: likely due to severe COVID pneumonia. Completed empiric Cefepime x 5 days. Now back on antibiotics. #Severe COVID pneumonia: very elevated inflammatory markers. S/p ivermectin x 1 on 01/21/2020 (off label use). S/p hydroxychloroquine with zinc x 5 days. Markers remain elevated. #Acute hypoxic resp failure: intubated, on the vent. Vent requirements not too high #ESRD on HD: nephrology following. #Thrombocytopenia: resolved #Elevated LFTs: etiology unclear. Bilirubin is normal. Alk phos and transaminases elevated. RUQ US showed no gall bladder, CBD appeared normal. Recs: Steroid taper. Pending trach + LTACH placement. Patient has been here for some time - initial positive test on 01/17/2020. Can be removed from precautions after 4 weeks from initial diagnosis. Lloyd Loza MD [facility] M: [phone] O: [phone] F: [phone] Subjective Date of service: 02/15/20 Principal diagnosis: Pneumonia Interval history: Afebrile, remains on vent with minimal settings. High white count; worsening. Objective - Exam Narrative Exam: Physical Exam (reviewed in chart due to PPE conservation) Constitutional: intubated, on the vent Head, Ears, Nose: normocephalic, atraumatic Eyes: limited due to PPE conservation strategy Neck: intubated Oral: intubated Cardiovascular: limited due to PPE conservation strategy Respiratory: limited due to PPE conservation strategy GI: limited due to PPE conservation strategy Musculoskeletal: limited due to PPE conservation strategy Skin: limited due to PPE conservation strategy Hem/Lymphatic: limited due to PPE conservation strategy Psych: no agitation Neurological: intubated, on the vent, exam limited - Constitutional Vitals: Vital Signs Temp Pulse Resp BP Pulse Ox 98.2 F 97 H 21 115/42 96 02/15/20 08:00 02/15/20 13:20 02/15/20 08:00 02/15/20 08:54 02/15/20 13:20 Temperature -Last 24 Hours Temperature 98.2 F Temperature 96.0 F - Labs CBC & Chem 7: 02/15/20 04:58 02/15/20 04:58 Labs: Abnormal lab results 02/14/20 02/14/20 02/14/20 Range/Units 17:36 18:30 23:41 WBC (4.5-11.0) K/mm3 RBC (3.65-5.03) M/mm3 RDW (13.2-15.2) % Plt Count (140-440) K/mm3 PT (12.2-14.9) Sec. INR (0.87-1.13) Potassium (3.6-5.0) mmol/L Chloride (98-107) mmol/L BUN (7-17) mg/dL Creatinine (0.7-1.2) mg/dL POC Glucose 216 H 141 H 203 H (70-105) 02/15/20 02/15/20 02/15/20 Range/Units 04:58 04:58 04:58 WBC 36.1 H (4.5-11.0) K/mm3 RBC 3.53 L (3.65-5.03) M/mm3 RDW 19.4 H (13.2-15.2) % Plt Count 750 H (140-440) K/mm3 PT 15.2 H (12.2-14.9) Sec. INR 1.18 H (0.87-1.13) Potassium 5.4 H (3.6-5.0) mmol/L Chloride 94.5 L (98-107) mmol/L BUN 102 H (7-17) mg/dL Creatinine 3.1 H (0.7-1.2) mg/dL POC Glucose (70-105)
--- NOTE | 2020-02-15 14:38 | Procedure Note ---
Date of procedure: 02/15/20 Pre-op diagnosis: respiratory failure Post-op diagnosis: same Procedure: Bronchoscopy Consent was on the chart. Timeout was called. After adequate sedation was establish, flexible bronchoscope was introduced via the ETT. The airway was clear. ETT was intially at 22cm. We pulled it back to 18cm. Eventually, we ended up pulling it back to 17cm. Under bronchoscopic guidance, Dr. Carvajal performed the tracheostomy. Introducer needle, dilator, guidewire, larger dilators, and tracheostomy tube were all directly observed during the case. After the tracheostomy tube was inserted, bronchoscope was introduced via the trach tube and position was confirmed. There was no bleeding. The tip of the tube was at least 4-5cm above the liya. Pt tolerated the procedure well. There were no complications. PEG placement Co-Surgeons Wei Price Anesth MAC (administered by anesthesia provider) EBL min Implant 20Fr pull PEG tube Procedure - timeout had already been performed. Consent was on the chart. Bite-block was placed. Endoscope was inserted. We intubated the esophagus. Scope was passed down to the stomach. Stomach was insufflated. We identified the area of transillumination in the body of stomach. Dr. Carvajal then prepped and draped that area. Local anesthetic was administered. Small incision was made. Introducer needle was passed into the stomach. Guidewire was passed which was grabbed with the snare and pulled back up to the mouth. PEG tube was attached. Dr. Carvajal pulled the PEG tube back into the stomach. Endoscope was reinserted. The button was visualized. There was no evidence of bleeding. There did not appear to be any excess pressure on the stomach. The rest of the stomach was inspected. First and second portions of duodenum were inspected. Esophagus was evaluated as the scope was being pulled out. No abnormalities were found. Patient tolerated the procedure well. There were no complications. The PEG collar was at 3 cm. Patient was in stable condition at the end of the case in ICU. Findings: normal airway and UGI tract Implants: 20Fr PEG tube Anesthesia: MAC Surgeon: JAK PRICE (Co-surgeon - Wei) Estimated blood loss: minimal Pathology: none Condition: stable Disposition: ICU
--- NOTE | 2020-02-15 14:46 | Procedure Note ---
Date of procedure: 02/15/20 Pre-op diagnosis: VDRF Post-op diagnosis: same Procedure: Tracheostomy Findings: Percutaneous Tracheostomy placement The patient was identified in the hospital bed in the ICU. Consent was verified on the chart timeout was performed. The neck was prepped and draped in usual sterile fashion. Anesthesia was administered. Dr. Carmen performed fiberoptic bronchoscopy throughout the entire procedure (see separate procedure note). The patient's neck was slightly hyperextended with a shoulder roll placed behind the shoulders. 1% lidocaine was infiltrated into the skin and subcutaneous tissue approximately 2 fingerbreadths above the liya. A 2 cm incision was made in a horizontal fashion using a 15 blade. Using a hemostat the soft tissues were bluntly dissected until the trachea was encountered. The introducer needle was then used to enter the trachea under direct visualization, through which the wire was passed down the trachea towards the liya. Introducer needle was then removed. The trachea was then serially dilated, after which a 8 German Shiley tracheostomy tube was inserted. The balloon was inflated, patient placed back on ventilator, and tidal volumes assessed which were satisfactory. The bronchos cope was then placed this through the tracheostomy and showed good positioning of the tracheostomy approximately 4 cm above the liya and no bleeding. The tracheostomy was sutured into place using 2-0 Prolene sutures. A drain sponge was placed between the skin and tracheostomy. The tracheostomy was secured to the patient's neck using a tracheostomy strap. A post op chest x-ray showed the tracheostomy in good positioning. The patient tolerated the procedure well. All sharps were disposed of appropriately. Implants: 8 Shiley Trach Anesthesia: BARBARA, local Surgeon: MATTI HADDAD Estimated blood loss: none Pathology: none Condition: stable Disposition: no change
--- NOTE | 2020-02-15 14:52 | Progress Note ---
Assessment and Plan - Patient Problems (1) End stage renal disease on dialysis Current Visit: No Status: Chronic Plan to address problem: hemodialysis today as scheduled. (2) Acute respiratory failure with hypoxia Current Visit: No Status: Acute Plan to address problem: ventilator management by pulmonary/polymer chemist (3) Pneumonia due to COVID-19 virus Current Visit: Yes Status: Acute Plan to address problem: continue treatment per infectious disease. (4) Volume overload Current Visit: Yes Status: Acute Qualifiers: Plan to address problem: end-stage renal disease with fluid overload. Resolved with fluid removal on dialysis. (5) Anemia in CKD (chronic kidney disease) Current Visit: Yes Status: Acute Qualifiers: Chronic kidney disease stage: on chronic dialysis Qualified Code(s): N18.6 - End stage renal disease; D63.1 - Anemia in chronic kidney disease; Z99.2 - Dependence on renal dialysis Plan to address problem: give erythropoietin on dialysis (6) T2DM (type 2 diabetes mellitus) Current Visit: Yes Status: Acute Qualifiers: Diabetes mellitus fpc insulin use: unspecified supervisor dock insulin use status Plan to address problem: blood sugar management by primary attending. (7) Hypertensive chronic kidney disease with stage 5 chronic kidney disease or end stage renal disease Current Visit: No Status: Chronic Plan to address problem: patient is stable off of vasopressor. Follow blood pressure Subjective Date of service: 02/15/20 Principal diagnosis: Pneumonia Interval history: Patient is intubated on the ventilator in intensive care unit. Not on vasopressor. Patient was seen and examined this morning Objective - Exam Narrative Exam: elderly -Sammarinese female lying in bed intubated on the ventilator HEENT: Normocephalic atraumatic, pupils equal round reactive to light ETT intact Neck: Supple, no venous distention, no goiter CVS: S1S2 RRR No murmur, rub or gallop Lungs: Coarse Bs, no use of accessory muscles of respiration Abdomen: Full, soft, nontender, no organomegaly no bruit, bowel sounds are present Extremities: No edema, no cyanosis or clubbing Urinary: Deferred Musculo-skeletal: No joint deformities or swelling Neuro Not following commands, - Vital Signs Vital signs: Vital Signs - 12hr 02/15/20 02/15/20 02/15/20 03:00 04:00 04:09 Temperature Pulse Rate 96 H 98 H 98 H Pulse Rate [ 96 H From Monitor] Respiratory 23 21 Rate Blood Pressure 118/49 134/59 123/54 O2 Sat by Pulse 88 87 95 Oximetry 02/15/20 02/15/20 02/15/20 05:00 06:00 07:00 Temperature Pulse Rate 98 H 98 H 97 H Pulse Rate [ From Monitor] Respiratory 21 20 21 Rate Blood Pressure 105/43 107/42 111/47 O2 Sat by Pulse 89 96 Oximetry 02/15/20 02/15/20 02/15/20 08:00 08:54 13:20 Temperature 98.2 F Pulse Rate 98 H 98 H 97 H Pulse Rate [ 98 H From Monitor] Respiratory 21 Rate Blood Pressure 111/45 115/42 O2 Sat by Pulse 97 99 96 Oximetry - Lab 02/15/20 04:58 02/15/20 04:58 Most recent lab results ABG pH 7.351 pH Units (7.350-7.450) 02/08/20 20:45 ABG pCO2 58.7 mm Hg 02/08/20 20:45 ABG pO2 79.1 mm Hg (80.0-90.0) L 02/08/20 20:45 ABG HCO3 31.7 mmol/L (20.0-26.0) H 02/08/20 20:45 ABG O2 Saturation 95.6 % (95.0-99.0) 02/08/20 20:45 Calcium 9.6 mg/dL (8.4-10.2) 02/15/20 04:58 Phosphorus 3.30 mg/dL (2.5-4.5) 01/12/20 16:01 Magnesium 2.00 mg/dL (1.7-2.3) 01/13/20 06:11 Medications & Allergies - Medications Allergies/Adverse Reactions: Allergies cheese Allergy (Mild, Verified 12/20/19 10:19) Itching iodine Allergy (Mild, Verified 12/20/19 10:16) Anaphylaxis clonidine Allergy (Verified 12/19/19 04:13) Anaphylaxis shellfish derived Adverse Reaction (Verified 12/19/19 04:13) Angioedema Home Medications: Home Medications Medication Instructions Recorded Confirmed Last Taken Type Atorvastatin [Lipitor] 40 mg PO DAILY 11/06/19 01/13/20 01/02/20 10:00 History Acetaminophen [Acetaminophen 8 650 mg PO Q8H PRN #30 tablet.er 11/21/19 01/13/20 01/03/20 22:00 Rx Hour] Cyclobenzaprine HCl [Flexeril 5 MG 5 mg PO QHS PRN #20 tab 11/21/19 01/13/20 01/01/20 22:00 Rx TAB] HYDROcodone/APAP 5-325 [[place] 1 each PO Q6HR PRN #18 tablet 12/13/19 01/13/20 01/01/20 22:00 Rx 5-325 mg TAB] amLODIPine 10 mg PO DAILY 90 Days #90 tab 12/18/19 01/13/20 01/01/20 10:00 Rx Ibuprofen 800 mg PO TID 12/19/19 01/13/20 01/02/20 22:00 History Magnesium Oxide [Mag-Ox] 400 mg PO QDAY 12/19/19 01/13/20 01/03/20 10:00 History diphenhydrAMINE [Benadryl CAP] 25 mg PO Q8HR PRN 12/19/19 01/13/20 01/03/20 21:00 History labetaloL [Labetalol 100mg TAB] 100 mg PO Q8H #90 tablet 12/21/19 01/13/20 01/02/20 10:00 Rx traMADoL [Ultram 50 MG tab] 50 mg PO Q6HR PRN #20 tablet 12/29/19 01/13/20 12/31/19 10:00 Rx DULoxetine [Cymbalta] 30 mg PO QDAY #30 capsule 01/04/20 01/13/20 Unknown Rx Valsartan [Diovan] 80 mg PO DAILY #30 tablet 01/04/20 01/13/20 Unknown Rx Active Medications: Generic Name Dose Route Start Last Admin Trade Name Freq PRN Reason Stop Dose Admin Acetaminophen 650 mg 01/09/20 16:33 02/05/20 05:58 Tylenol PO 650 mg Q4H PRN Administration Pain MILD(1-3)/Fever >100.5/MEANS Lipase/Protease/Amylase 1 each 01/23/20 14:28 02/07/20 13:[address] 10,500 Unit FEEDTUBE 1 each PRN PRN Administration For Clogged Feeding Tube Atorvastatin Calcium 40 mg 01/09/20 22:00 02/14/20 22:05 Lipitor PO 40 mg QHS PHILLY Administration Dextrose 50 ml 01/23/20 07:26 02/02/20 11:33 D50w (25gm) Syringe IV 50 ml Q30MIN PRN Administration BLOOD GLUCOSE < 70 Dextrose 25 ml 01/24/20 08:58 01/24/20 13:41 D50w (25gm) Syringe IV 25 ml Q4H PRN Administration BG < 80 MG/DL Docusate Sodium 100 mg 01/25/20 22:00 02/14/20 09:54 Colace PO 100 mg BID PHILLY Administration Epoetin Helio 20,000 unit 02/04/20 12:00 02/04/20 13:00 Procrit SUB-Q 20,000 unit SILVERIO PHILLY Administration Famotidine 20 mg 01/09/20 22:00 02/14/20 09:54 Pepcid PO 20 mg DAILY PHILLY Administration Heparin Sodium (Porcine) 5,000 unit 02/07/20 10:00 02/14/20 22:05 Heparin SUB-Q 5,000 unit Q12HR PHILLY Administration Norepinephrine 4 mg in 250 mls @ 7.5 mls/hr 01/21/20 18:00 02/11/20 15:00 Levophed Drip 4 Mg/Ns 250 Ml IV 0 mcg/min TITR PHILLY 0 mls/hr Titration Protocol 2 MCG/MIN Sodium Chloride 100 mls @ 999 mls/hr 02/12/20 08:17 Nacl 0.9% IV SILVERIO PRN Hypotension Sodium Chloride 1,000 mls @ 50 mls/hr 02/15/20 08:00 Nacl 0.9% 1000 Ml IV DIRECT PHILLY Insulin Glargine 15 units 02/10/20 13:00 02/14/20 09:54 Lantus SUB-Q 15 units DAILY PHILLY Administration Insulin Human Lispro 0 unit 02/07/20 12:00 02/14/20 18:30 Humalog SUB-Q Not Given Q6HR [facility] Protocol Lorazepam 2 mg 01/23/20 15:36 Ativan IV Q10MIN PRN Agitation Methylprednisolone Sodium Succinate 20 mg 02/14/20 14:00 02/15/20 06:42 Solu-Medrol IV 20 mg Q8HR PHILLY Administration Ondansetron HCl 4 mg 01/09/20 16:33 01/20/20 10:19 Zofran IV 4 mg Q8H PRN Administration Nausea And Vomiting Simple Syrup 15 ml 01/23/20 14:28 02/14/20 12:02 Simple Syrup FEEDTUBE 15 ml PRN PRN Administration Hypoglycemia Simple Syrup 30 ml 01/23/20 14:28 Simple Syrup FEEDTUBE PRN PRN Hypoglycemia Sodium Bicarbonate 325 mg 01/23/20 14:28 Sodium Bicarbonate FEEDTUBE PRN PRN For Clogged Feeding Tube Sodium Chloride 10 ml 01/09/20 22:00 02/14/20 22:06 Sodium Chloride Flush Syringe 10 Ml IV 10 ml BID PHILLY Administration Sodium Chloride 10 ml 01/09/20 16:33 Sodium Chloride Flush Syringe 10 Ml IV PRN PRN LINE FLUSH
--- NOTE | 2020-02-15 14:59 | Anesthesia Consultation ---
Anesthesia Consult and Med Hx Date of service: 02/15/20 - Airway Intubation Access Assessment: Possibly Difficult (oETT in situ since 01/21/2020) - Pulmonary Exam CTA: No (on ventilator) - Cardiac Exam Cardiac Exam: RRR - Pre-Operative Health Status ASA Pre-Surgery Classification: ASA4 Proposed Anesthetic Plan: General - Pulmonary Hx Smoking: Yes (former smoker) COPD: Yes Hx Pneumonia: Yes (2/ COVID19) - Cardiovascular System Hx Hypertension: Yes Hx Coronary Artery Disease: Yes Hx Heart Attack/AMI: Yes Hx Percutaneous Transluminal Coronary Angioplasty (PTCA): No Hx Cardia Arrhythmia: No - Central Nervous System CVA: No - Endocrine Hx End Stage Renal Disease: Yes (iHD) - Hematic Hx Anemia: Yes - Other Systems Hx Obesity: No - Additional Comments Anesthesia Medical History Comments: Prolonged hospitalization since late December with COVID 19 infection. Course complicated by repiratory failure now ventilator dependent and cardiac arrest >3 weeks ago. Scheduled for bedside trach/PEG. COVID19 test on 02/08/20 however patient remains on COVID precautions. All staff will don appropriate PPE per protocol prior to patient contact.
--- NOTE | 2020-02-15 14:59 | Anesthesia Day of Surgery ---
Anesthesia Day of Surgery - Day of Surgery Patient Examined: Yes Patient H&P Reviewed: Yes Patient is NPO: Yes
--- NOTE | 2020-02-15 15:00 | Post Anesthesia Evaluation ---
- Post Anesthesia Evaluation Patient Participated: No Airway Patent: Yes Stable Respiratory Function: Yes Nausea/Vomiting: No Temp > 96.8F: Yes Pain Manageable: Yes Adequeate Hydration: Yes Anesthesia Complications: No Patient on Ventilator: Yes (baseline vent settings 450 x 20, Peep 6, FiO2 100% (to be decreased by RT))
--- NOTE | 2020-02-15 15:29 | XRay Report ---
CHEST 1 VIEW 02/15/2020 2:46 PM INDICATION / CLINICAL INFORMATION: Tracheostomy placement. COMPARISON: One view of the chest from 01/28/2020. FINDINGS: SUPPORT DEVICES: Stable left internal jugular vein Port-A-Cath. Interval tracheostomy tube placement, which appears unremarkable. HEART / MEDIASTINUM: Stable. LUNGS / PLEURA: Aeration of the lungs has improved with residual bibasilar opacities. No significant pleural effusion. No pneumothorax. ADDITIONAL FINDINGS: No significant additional findings. IMPRESSION: 1. Unremarkable appearing tracheostomy tube. No new acute abnormality of the chest. 2. Improved aeration of the lungs. Signer Name: Aditya Jackson MD Signed: 02/15/2020 3:24 PM Workstation Name: [id number]
[2020-02-15] MEDS: DEXTROSE 50% IN WATER (25GM) 50 ML SYRINGE IV PRN (18:37)
[2020-02-16] MEDS: INSULIN LISPRO 100 UNIT/ML SUB-Q SCH ×5 (00:50→22:12)
[2020-02-16] MEDS: methylPREDNISolone Sod Succinate 40 MG/1 ML INJ IV SCH ×3 (06:02→23:02)
[2020-02-16] MEDS: DEXTROSE 50% IN WATER (25GM) 50 ML SYRINGE IV PRN (06:03)
[2020-02-16] MEDS: FAMOTIDINE 20 MG TAB PO SCH (10:55)
[2020-02-16] MEDS: HEPARIN 5,000 UNIT/1 ML VIAL SUB-Q SCH (10:56)
[2020-02-16] MEDS: INSULIN GLARGINE 100 UNITS/ML SUB-Q SCH (10:56)
[2020-02-16] MEDS: DOCUSATE SODIUM 100 MG/10 ML ORAL LIQD PO SCH ×4 (10:56→23:05)
--- NOTE | 2020-02-16 11:11 | Discharge Summary ---
Providers - Providers Date of Admission: 01/10/20 15:03 Date of discharge: 02/18/20 Attending physician: JOELLE DAVIS 01/10/20 09:07 Consult to Physician [CONS] Routine Comment: Consulting Provider: DESTINY DOLAN Physician Instructions: Reason For Exam: ESRD 01/12/20 17:41 Consult to Wound/ET Nurse [CONS] Routine Reason For Exam: wound eval 01/17/20 08:16 Consult to Physician [CONS] Routine Comment: Consulting Provider: EDVIN TROY Physician Instructions: Reason For Exam: fever, r/o covid 01/17/20 19:25 Consult to Physician [CONS] Routine Comment: Consulting Provider: GI MASCORRO Physician Instructions: Reason For Exam: hypoxia 01/22/20 08:56 Consult to PICC Line RN [CONS] Routine Reason For Exam: PICC Line Insertion Type Line:: PICC 01/23/20 12:03 Consult to Dietitian/Nutrition [CONS] Stat Physician Instructions: Reason For Exam: See below Reason for Consult: Write/Manage TPN/PPN 01/27/20 20:32 Consult to Wound/ET Nurse [CONS] Stat Reason For Exam: wound eval 02/11/20 19:08 Consult to Wound/ET Nurse [CONS] Stat Reason For Exam: wound eval sacrum 02/12/20 11:13 Consult to Physician [CONS] Routine Comment: Consulting Provider: JAK PRICE Physician Instructions: Reason For Exam: Trach and Peg Placement Primary care physician: LAUNDRY ATTENDANT Hospitalization Reason for admission: sepsis, covid Condition: Stable Hospital course: 64-year-old female with history of hyperlipidemia, end-stage renal disease on dialysis, hypertension and depression admitted on 01/09/2020 due to a week history of chest pain and shortness of breath and generalized body swelling. Patient had MELVIN and orthopnea prior to admission. In spite of dialysis, the patient did not feel better. On arrival, temp 99-100.5. WBC normal with lymphopenia. Trop high. Blood culture negative. CXR steph interstitial infiltrates. The patient was admitted with suspected COVID- 19 which was later confirmed. Patient was noted to have elevated inflammatory markers of ferritin, CRP, LDH and d-dimer. The patient was admitted with diagnosis of acute hypo xemic respiratory failure secondary to COVID-19 infection/viral pneumonia, ARDS and septic shock. Patient also had other complications with acute on chronic diastolic heart failure secondary to volume overload. Patient also underwent stress test that was negative for ischemia for chest pain. The patient was seen by infectious disease in consultation and treated with empiric cefepime x5 days for COVID pneumonia and septic shock. Patient remained on high flow oxygen initially during the hospital stay but had worsening respiratory status requiring intubation on 01/21/2020. Also, patient is s/p ivermectin x 1 on 01/21/2020 (off label use). S/p hydroxychloroquine with zinc x 5 days. Patient has also been treated with steroid taper. Other complications during hospital stay included LFTs with etiology unclear. Bilirubin was normal but alkaline phosphatase and transaminases were elevated. Right upper quadrant ultrasound showed no gallbladder and common bile duct was normal. Patient was maintained on the ventilator with slow weaning and vent requirements has stabilized. However, patient could not be liberated from the ventilator. Therefore, surgery consultation was obtained and patient underwent tracheostomy and PEG placement on 02/15/2020. Patient will now be transferred to LTAC for further evaluation. Patient has been hospitalized for some time and our facility with initial positive test on 01/17/2020. Can be removed from precautions after 4 weeks from initial diagnosis per ID recommendation. Disposition: [id number] [facility] Time spent for discharge: 35 - Discharge Diagnoses (1) Toxic metabolic encephalopathy Status: Acute (2) ARDS (adult respiratory distress syndrome) Status: Acute (3) Anemia in CKD (chronic kidney disease) Status: Acute Qualifiers: Chronic kidney disease stage: on chronic dialysis Qualified Code(s): N18.6 - End stage renal disease; D63.1 - Anemia in chronic kidney disease; Z99.2 - Dependence on renal dialysis (4) Pneumonia due to COVID-19 virus Status: Acute (5) Sepsis with hypotension Status: Acute (6) T2DM (type 2 diabetes mellitus) Status: Acute Qualifiers: Diabetes mellitus watermelon inspector insulin use: unspecified detention insulin use status (7) Hypertension Status: Chronic Qualifiers: Hypertension type: essential hypertension Qualified Code(s): I10 - Essential (primary) hypertension (8) Acute respiratory failure with hypoxia Status: Acute (9) COPD exacerbation Status: Acute (10) Elevated troponin Status: Acute (11) Hyperkalemia Status: Acute (12) Hyponatremia Status: Acute (13) Type 2 diabetes mellitus with diabetic nephropathy Status: Acute (14) End stage renal disease on dialysis Status: Chronic (15) NSTEMI (non-ST elevated myocardial infarction) Status: Chronic (16) T2DM (type 2 diabetes mellitus) Status: Chronic Qualifiers: Diabetes mellitus detention insulin use: unspecified detention insulin use status Core Measure Documentation - Palliative Care Palliative Care/ Comfort Measures: Not Applicable - Core Measures Any of the following diagnoses?: none Exam - Constitutional Vitals: Temp Pulse Resp BP Pulse Ox 98.4 F 96 H 25 H 140/62 100 02/16/20 08:00 02/16/20 09:00 02/16/20 09:00 02/16/20 09:00 02/16/20 09:00 General appearance: Present: no acute distress, well-nourished - EENT Eyes: Present: PERRL ENT: hearing intact, clear oral mucosa - Neck Neck: Present: supple, normal ROM - Respiratory Respiratory effort: normal Respiratory: bilateral: CTA - Cardiovascular Heart Sounds: Present: S1 & S2. Absent: rub, click - Extremities Extremities: pulses symmetrical, No edema Peripheral Pulses: within normal limits - Abdominal General gastrointestinal: Present: soft, non-tender, non-distended, normal bowel sounds Female genitourinary: Present: normal - Integumentary Integumentary: Present: clear, warm, dry - Musculoskeletal Musculoskeletal: gait normal, strength equal bilaterally - Psychiatric Psychiatric: appropriate mood/affect, intact judgment & insight - Neurologic Neurologic: CNII-XII intact, moves all extremities Plan Activity: advance as tolerated Weight Bearing Status: Non-Weight Bearing Diet: per dietitian instruction Follow up with: PRIMARY MD DIANA [Primary Care Provider] - 3-5 Days
--- NOTE | 2020-02-16 13:01 | Progress Note ---
Assessment and Plan Assessment and Plan 64 y/o female with COVID positive, viral pneumonia with some pulmonary vascular congestion superimposed. 1. Patient to be trached and pegged yesterday. Continue weaning trials 24 hours post surgery. Wea FiO2 as tolerated. 2. HD per renal. 3. In regards to steroids. Changed to 20q8 on 02/14/2020/ Would continue this dose for a week (7 days) then switch to 40 PO daily for 4 days, then 20 PO daily for 4 days, then 10 PO daily for 4 days then stop. 4. Continue isolation for now. Reviewed ID note and they suggest stopping after weeks. Need to clarifiy is this 4 weeks from initial diagnosis or 4 weeks from negative test. 5. Posible transfer to [facility] for further weaning. This could happen over the weekend. Total CCT 31 min Subjective Date of service: 02/16/20 Principal diagnosis: Pneumonia Interval history: No new complaints. Post trach/PEG. Remained on vent. Objective Vital Signs - 12hr 02/16/20 02/16/20 02/16/20 01:00 02:00 03:00 Temperature Pulse Rate 102 H 101 H 97 H Respiratory 24 12 22 Rate Blood Pressure 145/67 117/59 132/51 O2 Sat by Pulse 98 99 100 Oximetry O2 Sat by Pulse Oximetry [ Assessment] 02/16/20 02/16/20 02/16/20 04:00 05:00 05:11 Temperature 98.4 F Pulse Rate 96 H 96 H 96 H Respiratory 21 19 Rate Blood Pressure 132/51 117/52 117/52 O2 Sat by Pulse 99 100 100 Oximetry O2 Sat by Pulse Oximetry [ Assessment] 02/16/20 02/16/20 02/16/20 06:00 07:00 08:00 Temperature 98.4 F Pulse Rate 96 H 95 H 94 H Respiratory 23 20 25 H Rate Blood Pressure 117/52 97/50 108/49 O2 Sat by Pulse 100 100 100 Oximetry O2 Sat by Pulse 100 Oximetry [ Assessment] 02/16/20 02/16/20 02/16/20 09:00 10:00 11:00 Temperature Pulse Rate 96 H 101 H 101 H Respiratory 25 H 19 19 Rate Blood Pressure 140/62 123/53 133/62 O2 Sat by Pulse 100 100 100 Oximetry O2 Sat by Pulse Oximetry [ Assessment] 02/16/20 12:00 Temperature Pulse Rate 106 H Respiratory 21 Rate Blood Pressure 135/52 O2 Sat by Pulse 99 Oximetry O2 Sat by Pulse Oximetry [ Assessment] Constitutional: other (orally intubated, not sedated currently on vent. on AC 450 50) Eyes: non-icteric ENT: oropharynx moist Neck: supple Effort: normal Ascultation: Bilateral: rales Cardiovascular: regular rate and rhythm (no mrg) Gastrointestinal: normoactive bowel sounds, soft, non-tender, non-distended Integumentary: normal Extremities: no cyanosis, no edema, pink and warm Neurologic: unable to assess Psychiatric: mood appropriate, affect normal CBC and BMP: 02/15/20 04:58 02/15/20 04:58 ABG, PT/INR, D-dimer: ABG ABG pH 7.351 pH Units (7.350-7.450) 02/08/20 20:45 ABG pCO2 58.7 mm Hg 02/08/20 20:45 ABG pO2 79.1 mm Hg (80.0-90.0) L 02/08/20 20:45 ABG O2 Saturation 95.6 % (95.0-99.0) 02/08/20 20:45 PT/INR, D-dimer PT 15.2 Sec. (12.2-14.9) H 02/15/20 04:58 INR 1.18 (0.87-1.13) H 02/15/20 04:58 D-Dimer 2896.73 ng/mlDDU (0-234) H 02/05/20 13:55 Abnormal lab findings: Abnormal Labs 01/09/20 01/09/20 01/09/20 12:55 12:55 12:55 WBC 4.4 L RBC 3.44 L Hgb Hct MCV RDW 17.0 H Plt Count Lymph % (Auto) 6.8 L [place] % (Auto) 13.6 H Lymph # 0.3 L Seg Neutrophils % 79.0 H Seg Neuts % (Manual) Lymphocytes % (Manual) Nucleated RBC % Seg Neutrophils # Man Lymphocytes # (Manual) Monocytes # (Manual) Eosinophils # (Manual) PT 15.6 H INR 1.22 H D-Dimer Heparin Anti-Xa Level ABG pH ABG pO2 ABG HCO3 ABG O2 Saturation ABG Base Excess ABG Hemoglobin Oxyhemoglobin Sodium 130 L Potassium Chloride 88.9 L Carbon Dioxide 20 L BUN 41 H Creatinine 7.6 H Glucose 115 H POC Glucose Calcium Magnesium Ferritin Direct Bilirubin AST ALT Alkaline Phosphatase 153 H Lactate Dehydrogenase Troponin T 0.382 H* C-Reactive Protein NT-Pro-B Natriuret Pep 49665 H Total Protein Albumin 3.2 L Crossmatch 01/09/20 01/10/20 01/10/20 20:14 00:16 06:54 WBC 3.3 L RBC 3.00 L Hgb 9.2 L Hct 27.8 L MCV RDW 17.2 H Plt Count Lymph % (Auto) 8.9 L [place] % (Auto) 11.5 H Lymph # 0.3 L Seg Neutrophils % 79.1 H Seg Neuts % (Manual) Lymphocytes % (Manual) Nucleated RBC % Seg Neutrophils # Man Lymphocytes # (Manual) Monocytes # (Manual) Eosinophils # (Manual) PT INR D-Dimer Heparin Anti-Xa Level ABG pH ABG pO2 ABG HCO3 ABG O2 Saturation ABG Base Excess ABG Hemoglobin Oxyhemoglobin Sodium Potassium Chloride Carbon Dioxide BUN Creatinine Glucose POC Glucose Calcium Magnesium Ferritin Direct Bilirubin AST ALT Alkaline Phosphatase Lactate Dehydrogenase Troponin T 0.349 H* 0.328 H* C-Reactive Protein NT-Pro-B Natriuret Pep Total Protein Albumin Crossmatch 01/10/20 01/10/20 01/11/20 06:54 06:54 16:45 WBC RBC Hgb Hct MCV RDW Plt Count Lymph % (Auto) [place] % (Auto) Lymph # Seg Neutrophils % Seg Neuts % (Manual) Lymphocytes % (Manual) Nucleated RBC % Seg Neutrophils # Man Lymphocytes # (Manual) Monocytes # (Manual) Eosinophils # (Manual) PT INR D-Dimer Heparin Anti-Xa Level ABG pH ABG pO2 ABG HCO3 ABG O2 Saturation ABG Base Excess ABG Hemoglobin Oxyhemoglobin Sodium 133 L Potassium Chloride 90.6 L Carbon Dioxide BUN 50 H Creatinine 8.4 H Glucose 101 H POC Glucose 106 H Calcium 8.1 L Magnesium Ferritin Direct Bilirubin AST ALT Alkaline Phosphatase 148 H Lactate Dehydrogenase Troponin T 0.315 H* C-Reactive Protein NT-Pro-B Natriuret Pep Total Protein 5.4 L Albumin 2.7 L Crossmatch 01/12/20 01/13/20 01/13/20 16:01 06:11 06:11 WBC 3.1 L RBC 3.25 L Hgb 9.8 L Hct MCV RDW 17.2 H Plt Count 136 L Lymph % (Auto) [place] % (Auto) Lymph # Seg Neutrophils % Seg Neuts % (Manual) Lymphocytes % (Manual) Nucleated RBC % Seg Neutrophils # Man Lymphocytes # (Manual) Monocytes # (Manual) Eosinophils # (Manual) PT INR D-Dimer Heparin Anti-Xa Level ABG pH ABG pO2 ABG HCO3 ABG O2 Saturation ABG Base Excess ABG Hemoglobin Oxyhemoglobin Sodium 135 L Potassium Chloride 93.4 L Carbon Dioxide BUN 19 H Creatinine 4.5 H Glucose 120 H POC Glucose Calcium 7.8 L Magnesium 1.40 L Ferritin Direct Bilirubin AST ALT Alkaline Phosphatase Lactate Dehydrogenase Troponin T C-Reactive Protein NT-Pro-B Natriuret Pep Total Protein Albumin Crossmatch 01/16/20 01/16/20 01/16/20 08:35 11:49 14:11 WBC RBC Hgb Hct MCV RDW Plt Count Lymph % (Auto) [place] % (Auto) Lymph # Seg Neutrophils % Seg Neuts % (Manual) Lymphocytes % (Manual) Nucleated RBC % Seg Neutrophils # Man Lymphocytes # (Manual) Monocytes # (Manual) Eosinophils # (Manual) PT INR D-Dimer Heparin Anti-Xa Level ABG pH ABG pO2 48.4 L ABG HCO3 30.5 H ABG O2 Saturation 81.9 L ABG Base Excess 4.6 H ABG Hemoglobin 10.5 L Oxyhemoglobin 80.1 L Sodium Potassium Chloride Carbon Dioxide BUN Creatinine Glucose POC Glucose 126 H 119 H Calcium Magnesium Ferritin Direct Bilirubin AST ALT Alkaline Phosphatase Lactate Dehydrogenase Troponin T C-Reactive Protein NT-Pro-B Natriuret Pep Total Protein Albumin Crossmatch 01/16/20 01/16/20 01/16/20 15:38 15:38 15:38 WBC RBC Hgb Hct MCV RDW Plt Count Lymph % (Auto) [place] % (Auto) Lymph # Seg Neutrophils % Seg Neuts % (Manual) Lymphocytes % (Manual) Nucleated RBC % Seg Neutrophils # Man Lymphocytes # (Manual) Monocytes # (Manual) Eosinophils # (Manual) PT INR D-Dimer 1104.64 H Heparin Anti-Xa Level ABG pH ABG pO2 ABG HCO3 ABG O2 Saturation ABG Base Excess ABG Hemoglobin Oxyhemoglobin Sodium Potassium Chloride Carbon Dioxide BUN Creatinine Glucose POC Glucose Calcium Magnesium Ferritin > 2000.0 H Direct Bilirubin AST ALT Alkaline Phosphatase Lactate Dehydrogenase 690 H Troponin T C-Reactive Protein 24.10 H NT-Pro-B Natriuret Pep Total Protein Albumin Crossmatch 01/16/20 01/18/20 01/18/20 18:11 06:25 06:25 WBC RBC 3.15 L Hgb 9.4 L Hct 29.4 L MCV RDW 17.5 H Plt Count 135 L Lymph % (Auto) 3.8 L [place] % (Auto) Lymph # 0.2 L Seg Neutrophils % 88.8 H Seg Neuts % (Manual) Lymphocytes % (Manual) Nucleated RBC % Seg Neutrophils # Man Lymphocytes # (Manual) Monocytes # (Manual) Eosinophils # (Manual) PT INR D-Dimer Heparin Anti-Xa Level ABG pH ABG pO2 ABG HCO3 ABG O2 Saturation ABG Base Excess ABG Hemoglobin Oxyhemoglobin Sodium Potassium Chloride 96.8 L Carbon Dioxide BUN 26 H Creatinine 4.2 H Glucose 115 H POC Glucose 130 H Calcium 8.2 L Magnesium Ferritin Direct Bilirubin AST ALT Alkaline Phosphatase Lactate Dehydrogenase 537 H Troponin T C-Reactive Protein 17.10 H NT-Pro-B Natriuret Pep Total Protein Albumin Crossmatch 01/18/20 01/18/20 01/18/20 06:25 06:25 12:15 WBC RBC Hgb Hct MCV RDW Plt Count Lymph % (Auto) [place] % (Auto) Lymph # Seg Neutrophils % Seg Neuts % (Manual) Lymphocytes % (Manual) Nucleated RBC % Seg Neutrophils # Man Lymphocytes # (Manual) Monocytes # (Manual) Eosinophils # (Manual) PT INR D-Dimer 938.03 H Heparin Anti-Xa Level ABG pH ABG pO2 66.5 L ABG HCO3 30.1 H ABG O2 Saturation 93.2 L ABG Base Excess 4.6 H ABG Hemoglobin 10.0 L Oxyhemoglobin 91.3 L Sodium Potassium Chloride Carbon Dioxide BUN Creatinine Glucose POC Glucose Calcium Magnesium Ferritin 3105.0 H Direct Bilirubin AST ALT Alkaline Phosphatase Lactate Dehydrogenase Troponin T C-Reactive Protein NT-Pro-B Natriuret Pep Total Protein Albumin Crossmatch 01/20/20 01/20/20 01/20/20 07:37 07:37 07:37 WBC RBC Hgb Hct MCV RDW Plt Count Lymph % (Auto) [place] % (Auto) Lymph # Seg Neutrophils % Seg Neuts % (Manual) Lymphocytes % (Manual) Nucleated RBC % Seg Neutrophils # Man Lymphocytes # (Manual) Monocytes # (Manual) Eosinophils # (Manual) PT INR D-Dimer 2072.25 H Heparin Anti-Xa Level ABG pH ABG pO2 ABG HCO3 ABG O2 Saturation ABG Base Excess ABG Hemoglobin Oxyhemoglobin Sodium Potassium Chloride Carbon Dioxide BUN Creatinine Glucose POC Glucose Calcium Magnesium Ferritin 1826.0 H Direct Bilirubin AST ALT Alkaline Phosphatase Lactate Dehydrogenase 496 H Troponin T C-Reactive Protein 19.30 H NT-Pro-B Natriuret Pep Total Protein Albumin Crossmatch 01/20/20 01/21/20 01/21/20 17:30 03:59 17:35 WBC RBC Hgb Hct MCV RDW Plt Count Lymph % (Auto) [place] % (Auto) Lymph # Seg Neutrophils % Seg Neuts % (Manual) Lymphocytes % (Manual) Nucleated RBC % Seg Neutrophils # Man Lymphocytes # (Manual) Monocytes # (Manual) Eosinophils # (Manual) PT INR D-Dimer Heparin Anti-Xa Level ABG pH ABG pO2 61.1 L 67.4 L ABG HCO3 29.9 H 26.2 H ABG O2 Saturation 91.7 L 93.4 L ABG Base Excess 4.9 H ABG Hemoglobin 9.0 L 9.1 L Oxyhemoglobin 89.5 L 91.1 L Sodium 136 L Potassium Chloride Carbon Dioxide BUN 36 H Creatinine 4.9 H Glucose POC Glucose Calcium Magnesium Ferritin Direct Bilirubin AST ALT Alkaline Phosphatase Lactate Dehydrogenase Troponin T C-Reactive Protein NT-Pro-B Natriuret Pep Total Protein Albumin Crossmatch 01/21/20 01/22/20 01/22/20 Unknown 03:41 03:41 WBC RBC Hgb Hct MCV RDW Plt Count Lymph % (Auto) [place] % (Auto) Lymph # Seg Neutrophils % Seg Neuts % (Manual) Lymphocytes % (Manual) Nucleated RBC % Seg Neutrophils # Man Lymphocytes # (Manual) Monocytes # (Manual) Eosinophils # (Manual) PT INR D-Dimer Heparin Anti-Xa Level ABG pH 7.465 H ABG pO2 48.9 L ABG HCO3 26.6 H ABG O2 Saturation 85.7 L ABG Base Excess ABG Hemoglobin 10.4 L Oxyhemoglobin 83.5 L Sodium Potassium Chloride Carbon Dioxide BUN Creatinine Glucose POC Glucose Calcium Magnesium Ferritin 6071.0 H Direct Bilirubin AST ALT Alkaline Phosphatase Lactate Dehydrogenase 963 H Troponin T C-Reactive Protein 30.00 H NT-Pro-B Natriuret Pep Total Protein Albumin Crossmatch 01/22/20 01/22/20 01/22/20 03:41 07:47 11:20 WBC RBC Hgb Hct MCV RDW Plt Count Lymph % (Auto) [place] % (Auto) Lymph # Seg Neutrophils % Seg Neuts % (Manual) Lymphocytes % (Manual) Nucleated RBC % Seg Neutrophils # Man Lymphocytes # (Manual) Monocytes # (Manual) Eosinophils # (Manual) PT INR D-Dimer > 32851 H Heparin Anti-Xa Level ABG pH ABG pO2 66.7 L ABG HCO3 28.7 H ABG O2 Saturation 91.9 L ABG Base Excess ABG Hemoglobin 9.1 L Oxyhemoglobin 89.5 L Sodium Potassium Chloride 94.3 L Carbon Dioxide BUN 53 H Creatinine 6.5 H Glucose POC Glucose Calcium Magnesium Ferritin Direct Bilirubin AST ALT Alkaline Phosphatase Lactate Dehydrogenase Troponin T C-Reactive Protein NT-Pro-B Natriuret Pep Total Protein Albumin Crossmatch 01/22/20 01/22/20 01/23/20 11:49 Unknown 04:55 WBC 15.1 H RBC 3.05 L Hgb 8.8 L Hct 28.3 L MCV RDW 17.8 H Plt Count 125 L Lymph % (Auto) [place] % (Auto) Lymph # Seg Neutrophils % Seg Neuts % (Manual) Lymphocytes % (Manual) Nucleated RBC % Seg Neutrophils # Man Lymphocytes # (Manual) Monocytes # (Manual) Eosinophils # (Manual) PT INR D-Dimer Heparin Anti-Xa Level ABG pH 7.340 L ABG pO2 77.7 L 136.3 H ABG HCO3 27.6 H 28.8 H ABG O2 Saturation ABG Base Excess ABG Hemoglobin 9.3 L 10.9 L Oxyhemoglobin 94.2 L Sodium Potassium Chloride Carbon Dioxide BUN Creatinine Glucose POC Glucose Calcium Magnesium Ferritin Direct Bilirubin AST ALT Alkaline Phosphatase Lactate Dehydrogenase Troponin T C-Reactive Protein NT-Pro-B Natriuret Pep Total Protein Albumin Crossmatch 01/23/20 01/23/20 01/23/20 06:23 07:07 12:23 WBC RBC Hgb Hct MCV RDW Plt Count Lymph % (Auto) [place] % (Auto) Lymph # Seg Neutrophils % Seg Neuts % (Manual) Lymphocytes % (Manual) Nucleated RBC % Seg Neutrophils # Man Lymphocytes # (Manual) Monocytes # (Manual) Eosinophils # (Manual) PT INR D-Dimer Heparin Anti-Xa Level ABG pH ABG pO2 ABG HCO3 ABG O2 Saturation ABG Base Excess ABG Hemoglobin Oxyhemoglobin Sodium Potassium Chloride Carbon Dioxide BUN Creatinine Glucose POC Glucose 57 L 127 H 131 H Calcium Magnesium Ferritin Direct Bilirubin AST ALT Alkaline Phosphatase Lactate Dehydrogenase Troponin T C-Reactive Protein NT-Pro-B Natriuret Pep Total Protein Albumin Crossmatch 01/23/20 01/23/20 01/24/20 Unknown Unknown 04:00 WBC 16.2 H RBC 3.08 L Hgb 8.9 L Hct 28.6 L MCV RDW 17.8 H Plt Count 139 L Lymph % (Auto) [place] % (Auto) Lymph # Seg Neutrophils % Seg Neuts % (Manual) Lymphocytes % (Manual) Nucleated RBC % Seg Neutrophils # Man Lymphocytes # (Manual) Monocytes # (Manual) Eosinophils # (Manual) PT INR D-Dimer Heparin Anti-Xa Level < 0.10 L ABG pH ABG pO2 ABG HCO3 ABG O2 Saturation ABG Base Excess ABG Hemoglobin Oxyhemoglobin Sodium Potassium Chloride Carbon Dioxide BUN Creatinine Glucose POC Glucose Calcium Magnesium Ferritin 4195.0 H Direct Bilirubin AST ALT Alkaline Phosphatase Lactate Dehydrogenase Troponin T C-Reactive Protein NT-Pro-B Natriuret Pep Total Protein Albumin Crossmatch 01/24/20 01/24/20 01/24/20 04:00 04:00 04:00 WBC RBC Hgb Hct MCV RDW Plt Count Lymph % (Auto) [place] % (Auto) Lymph # Seg Neutrophils % Seg Neuts % (Manual) Lymphocytes % (Manual) Nucleated RBC % Seg Neutrophils # Man Lymphocytes # (Manual) Monocytes # (Manual) Eosinophils # (Manual) PT INR D-Dimer 5783.11 H Heparin Anti-Xa Level ABG pH 7.188 L* ABG pO2 70.8 L ABG HCO3 32.2 H ABG O2 Saturation 90.4 L ABG Base Excess ABG Hemoglobin 8.5 L Oxyhemoglobin 88.1 L Sodium Potassium Chloride Carbon Dioxide BUN Creatinine Glucose POC Glucose Calcium Magnesium Ferritin Direct Bilirubin AST ALT Alkaline Phosphatase Lactate Dehydrogenase 474 H Troponin T C-Reactive Protein 29.80 H NT-Pro-B Natriuret Pep Total Protein Albumin Crossmatch 01/24/20 01/24/20 01/24/20 05:20 05:51 09:14 WBC RBC Hgb Hct MCV RDW Plt Count Lymph % (Auto) [place] % (Auto) Lymph # Seg Neutrophils % Seg Neuts % (Manual) Lymphocytes % (Manual) Nucleated RBC % Seg Neutrophils # Man Lymphocytes # (Manual) Monocytes # (Manual) Eosinophils # (Manual) PT INR D-Dimer Heparin Anti-Xa Level ABG pH 7.214 L ABG pO2 71.7 L ABG HCO3 31.5 H ABG O2 Saturation 91.8 L ABG Base Excess ABG Hemoglobin 9.1 L Oxyhemoglobin 89.3 L Sodium Potassium Chloride Carbon Dioxide BUN Creatinine Glucose POC Glucose 50 L 53 L Calcium Magnesium Ferritin Direct Bilirubin AST ALT Alkaline Phosphatase Lactate Dehydrogenase Troponin T C-Reactive Protein NT-Pro-B Natriuret Pep Total Protein Albumin Crossmatch 01/24/20 01/24/20 01/24/20 15:10 18:04 21:10 WBC RBC Hgb Hct MCV RDW Plt Count Lymph % (Auto) [place] % (Auto) Lymph # Seg Neutrophils % Seg Neuts % (Manual) Lymphocytes % (Manual) Nucleated RBC % Seg Neutrophils # Man Lymphocytes # (Manual) Monocytes # (Manual) Eosinophils # (Manual) PT INR D-Dimer Heparin Anti-Xa Level ABG pH ABG pO2 ABG HCO3 ABG O2 Saturation ABG Base Excess ABG Hemoglobin Oxyhemoglobin Sodium Potassium Chloride Carbon Dioxide BUN Creatinine Glucose POC Glucose 114 H 51 L 144 H Calcium Magnesium Ferritin Direct Bilirubin AST ALT Alkaline Phosphatase Lactate Dehydrogenase Troponin T C-Reactive Protein NT-Pro-B Natriuret Pep Total Protein Albumin Crossmatch 01/24/20 01/25/20 01/25/20 Unknown 00:32 03:50 WBC 13.0 H RBC 3.10 L Hgb 9.2 L Hct 29.0 L MCV RDW 17.7 H Plt Count Lymph % (Auto) [place] % (Auto) Lymph # Seg Neutrophils % Seg Neuts % (Manual) 92.0 H Lymphocytes % (Manual) 5.0 L Nucleated RBC % Seg Neutrophils # Man 12.0 H Lymphocytes # (Manual) 0.7 L Monocytes # (Manual) Eosinophils # (Manual) PT INR D-Dimer Heparin Anti-Xa Level ABG pH 7.291 L ABG pO2 71.3 L ABG HCO3 30.6 H ABG O2 Saturation 93.6 L ABG Base Excess 3.3 H ABG Hemoglobin 8.1 L Oxyhemoglobin 91.2 L Sodium Potassium Chloride Carbon Dioxide BUN Creatinine Glucose POC Glucose 114 H Calcium Magnesium Ferritin Direct Bilirubin AST ALT Alkaline Phosphatase Lactate Dehydrogenase Troponin T C-Reactive Protein NT-Pro-B Natriuret Pep Total Protein Albumin Crossmatch 01/25/20 01/25/20 01/25/20 04:22 06:05 17:28 WBC RBC Hgb Hct MCV RDW Plt Count Lymph % (Auto) [place] % (Auto) Lymph # Seg Neutrophils % Seg Neuts % (Manual) Lymphocytes % (Manual) Nucleated RBC % Seg Neutrophils # Man Lymphocytes # (Manual) Monocytes # (Manual) Eosinophils # (Manual) PT INR D-Dimer Heparin Anti-Xa Level ABG pH 7.304 L ABG pO2 69.5 L ABG HCO3 29.7 H ABG O2 Saturation 93.2 L ABG Base Excess ABG Hemoglobin 8.7 L Oxyhemoglobin 90.7 L Sodium Potassium Chloride Carbon Dioxide BUN Creatinine Glucose POC Glucose 136 H 127 H Calcium Magnesium Ferritin Direct Bilirubin AST ALT Alkaline Phosphatase Lactate Dehydrogenase Troponin T C-Reactive Protein NT-Pro-B Natriuret Pep Total Protein Albumin Crossmatch 01/26/20 01/26/20 01/26/20 00:20 02:31 02:31 WBC RBC Hgb Hct MCV RDW Plt Count Lymph % (Auto) [place] % (Auto) Lymph # Seg Neutrophils % Seg Neuts % (Manual) Lymphocytes % (Manual) Nucleated RBC % Seg Neutrophils # Man Lymphocytes # (Manual) Monocytes # (Manual) Eosinophils # (Manual) PT INR D-Dimer Heparin Anti-Xa Level ABG pH ABG pO2 ABG HCO3 ABG O2 Saturation ABG Base Excess ABG Hemoglobin Oxyhemoglobin Sodium Potassium Chloride Carbon Dioxide BUN Creatinine Glucose POC Glucose 127 H Calcium Magnesium Ferritin 3764.0 H Direct Bilirubin AST ALT Alkaline Phosphatase Lactate Dehydrogenase 393 H Troponin T C-Reactive Protein 28.60 H NT-Pro-B Natriuret Pep Total Protein Albumin Crossmatch 01/26/20 01/26/20 01/26/20 02:31 04:45 05:24 WBC RBC Hgb Hct MCV RDW Plt Count Lymph % (Auto) [place] % (Auto) Lymph # Seg Neutrophils % Seg Neuts % (Manual) Lymphocytes % (Manual) Nucleated RBC % Seg Neutrophils # Man Lymphocytes # (Manual) Monocytes # (Manual) Eosinophils # (Manual) PT INR D-Dimer 3828.76 H Heparin Anti-Xa Level ABG pH ABG pO2 ABG HCO3 30.8 H ABG O2 Saturation ABG Base Excess 4.9 H ABG Hemoglobin 7.4 L Oxyhemoglobin 94.6 L Sodium Potassium Chloride Carbon Dioxide BUN Creatinine Glucose POC Glucose 121 H Calcium Magnesium Ferritin Direct Bilirubin AST ALT Alkaline Phosphatase Lactate Dehydrogenase Troponin T C-Reactive Protein NT-Pro-B Natriuret Pep Total Protein Albumin Crossmatch 01/26/20 01/26/20 01/26/20 10:40 12:36 18:10 WBC RBC Hgb Hct MCV RDW Plt Count Lymph % (Auto) [place] % (Auto) Lymph # Seg Neutrophils % Seg Neuts % (Manual) Lymphocytes % (Manual) Nucleated RBC % Seg Neutrophils # Man Lymphocytes # (Manual) Monocytes # (Manual) Eosinophils # (Manual) PT INR D-Dimer Heparin Anti-Xa Level ABG pH ABG pO2 ABG HCO3 ABG O2 Saturation ABG Base Excess ABG Hemoglobin Oxyhemoglobin Sodium Potassium Chloride Carbon Dioxide BUN Creatinine Glucose POC Glucose 119 H 126 H 159 H Calcium Magnesium Ferritin Direct Bilirubin AST ALT Alkaline Phosphatase Lactate Dehydrogenase Troponin T C-Reactive Protein NT-Pro-B Natriuret Pep Total Protein Albumin Crossmatch 01/27/20 01/27/20 01/27/20 03:45 06:15 12:19 WBC RBC Hgb Hct MCV RDW Plt Count Lymph % (Auto) [place] % (Auto) Lymph # Seg Neutrophils % Seg Neuts % (Manual) Lymphocytes % (Manual) Nucleated RBC % Seg Neutrophils # Man Lymphocytes # (Manual) Monocytes # (Manual) Eosinophils # (Manual) PT INR D-Dimer Heparin Anti-Xa Level ABG pH 7.307 L ABG pO2 91.1 H ABG HCO3 30.5 H ABG O2 Saturation ABG Base Excess 3.4 H ABG Hemoglobin 8.7 L Oxyhemoglobin 94.3 L Sodium Potassium Chloride Carbon Dioxide BUN Creatinine Glucose POC Glucose 147 H 164 H Calcium Magnesium Ferritin Direct Bilirubin AST ALT Alkaline Phosphatase Lactate Dehydrogenase Troponin T C-Reactive Protein NT-Pro-B Natriuret Pep Total Protein Albumin Crossmatch 01/27/20 01/28/20 01/28/20 17:42 00:29 04:34 WBC RBC Hgb Hct MCV RDW Plt Count Lymph % (Auto) [place] % (Auto) Lymph # Seg Neutrophils % Seg Neuts % (Manual) Lymphocytes % (Manual) Nucleated RBC % Seg Neutrophils # Man Lymphocytes # (Manual) Monocytes # (Manual) Eosinophils # (Manual) PT INR D-Dimer Heparin Anti-Xa Level ABG pH ABG pO2 ABG HCO3 ABG O2 Saturation ABG Base Excess ABG Hemoglobin Oxyhemoglobin Sodium Potassium Chloride Carbon Dioxide BUN Creatinine Glucose POC Glucose 149 H 178 H Calcium Magnesium Ferritin > 2000.0 H Direct Bilirubin AST ALT Alkaline Phosphatase Lactate Dehydrogenase Troponin T C-Reactive Protein NT-Pro-B Natriuret Pep Total Protein Albumin Crossmatch 01/28/20 01/28/20 01/28/20 04:34 04:34 05:20 WBC RBC Hgb Hct MCV RDW Plt Count Lymph % (Auto) [place] % (Auto) Lymph # Seg Neutrophils % Seg Neuts % (Manual) Lymphocytes % (Manual) Nucleated RBC % Seg Neutrophils # Man Lymphocytes # (Manual) Monocytes # (Manual) Eosinophils # (Manual) PT INR D-Dimer 2379 H Heparin Anti-Xa Level ABG pH 7.237 L ABG pO2 90.9 H ABG HCO3 29.1 H ABG O2 Saturation ABG Base Excess ABG Hemoglobin 7.5 L Oxyhemoglobin 94.0 L Sodium Potassium Chloride Carbon Dioxide BUN Creatinine Glucose POC Glucose Calcium Magnesium Ferritin Direct Bilirubin AST ALT Alkaline Phosphatase Lactate Dehydrogenase 434 H Troponin T C-Reactive Protein 9.70 H NT-Pro-B Natriuret Pep Total Protein Albumin Crossmatch 01/28/20 01/28/20 01/28/20 06:21 12:25 18:17 WBC RBC Hgb Hct MCV RDW Plt Count Lymph % (Auto) [place] % (Auto) Lymph # Seg Neutrophils % Seg Neuts % (Manual) Lymphocytes % (Manual) Nucleated RBC % Seg Neutrophils # Man Lymphocytes # (Manual) Monocytes # (Manual) Eosinophils # (Manual) PT INR D-Dimer Heparin Anti-Xa Level ABG pH ABG pO2 ABG HCO3 ABG O2 Saturation ABG Base Excess ABG Hemoglobin Oxyhemoglobin Sodium Potassium Chloride Carbon Dioxide BUN Creatinine Glucose POC Glucose 127 H 196 H 190 H Calcium Magnesium Ferritin Direct Bilirubin AST ALT Alkaline Phosphatase Lactate Dehydrogenase Troponin T C-Reactive Protein NT-Pro-B Natriuret Pep Total Protein Albumin Crossmatch 01/28/20 01/29/20 01/29/20 23:35 04:00 04:00 WBC 12.6 H RBC 3.01 L Hgb 9.2 L Hct 29.3 L MCV 98 H RDW 18.1 H Plt Count Lymph % (Auto) [place] % (Auto) Lymph # Seg Neutrophils % Seg Neuts % (Manual) Lymphocytes % (Manual) Nucleated RBC % Seg Neutrophils # Man Lymphocytes # (Manual) Monocytes # (Manual) Eosinophils # (Manual) PT INR D-Dimer Heparin Anti-Xa Level ABG pH ABG pO2 ABG HCO3 ABG O2 Saturation ABG Base Excess ABG Hemoglobin Oxyhemoglobin Sodium 132 L Potassium Chloride 90.1 L Carbon Dioxide BUN 50 H Creatinine 3.7 H Glucose 184 H POC Glucose 177 H Calcium Magnesium Ferritin Direct Bilirubin AST 93 H ALT Alkaline Phosphatase 678 H Lactate Dehydrogenase Troponin T C-Reactive Protein NT-Pro-B Natriuret Pep Total Protein Albumin 1.7 L Crossmatch 01/29/20 01/29/20 01/29/20 05:03 11:53 16:44 WBC RBC Hgb Hct MCV RDW Plt Count Lymph % (Auto) [place] % (Auto) Lymph # Seg Neutrophils % Seg Neuts % (Manual) Lymphocytes % (Manual) Nucleated RBC % Seg Neutrophils # Man Lymphocytes # (Manual) Monocytes # (Manual) Eosinophils # (Manual) PT INR D-Dimer Heparin Anti-Xa Level ABG pH ABG pO2 ABG HCO3 ABG O2 Saturation ABG Base Excess ABG Hemoglobin Oxyhemoglobin Sodium Potassium Chloride Carbon Dioxide BUN Creatinine Glucose POC Glucose 145 H 193 H 174 H Calcium Magnesium Ferritin Direct Bilirubin AST ALT Alkaline Phosphatase Lactate Dehydrogenase Troponin T C-Reactive Protein NT-Pro-B Natriuret Pep Total Protein Albumin Crossmatch 01/29/20 01/30/20 01/30/20 23:38 04:25 11:45 WBC RBC Hgb Hct MCV RDW Plt Count Lymph % (Auto) [place] % (Auto) Lymph # Seg Neutrophils % Seg Neuts % (Manual) Lymphocytes % (Manual) Nucleated RBC % Seg Neutrophils # Man Lymphocytes # (Manual) Monocytes # (Manual) Eosinophils # (Manual) PT INR D-Dimer Heparin Anti-Xa Level ABG pH 7.253 L ABG pO2 61.8 L ABG HCO3 29.7 H ABG O2 Saturation 90.1 L ABG Base Excess ABG Hemoglobin 8.2 L Oxyhemoglobin 87.5 L Sodium Potassium Chloride Carbon Dioxide BUN Creatinine Glucose POC Glucose 144 H 191 H Calcium Magnesium Ferritin Direct Bilirubin AST ALT Alkaline Phosphatase Lactate Dehydrogenase Troponin T C-Reactive Protein NT-Pro-B Natriuret Pep Total Protein Albumin Crossmatch 01/30/20 01/31/20 01/31/20 18:21 00:04 03:52 WBC RBC Hgb Hct MCV RDW Plt Count Lymph % (Auto) [place] % (Auto) Lymph # Seg Neutrophils % Seg Neuts % (Manual) Lymphocytes % (Manual) Nucleated RBC % Seg Neutrophils # Man Lymphocytes # (Manual) Monocytes # (Manual) Eosinophils # (Manual) PT INR D-Dimer Heparin Anti-Xa Level ABG pH ABG pO2 69.3 L ABG HCO3 29.4 H ABG O2 Saturation ABG Base Excess 3.7 H ABG Hemoglobin 10.8 L Oxyhemoglobin Sodium Potassium Chloride Carbon Dioxide BUN Creatinine Glucose POC Glucose 198 H 129 H Calcium Magnesium Ferritin Direct Bilirubin AST ALT Alkaline Phosphatase Lactate Dehydrogenase Troponin T C-Reactive Protein NT-Pro-B Natriuret Pep Total Protein Albumin Crossmatch 01/31/20 01/31/20 01/31/20 04:00 04:16 05:12 WBC 16.7 H RBC 2.73 L Hgb 8.3 L Hct 25.7 L MCV RDW 18.0 H Plt Count Lymph % (Auto) [place] % (Auto) Lymph # Seg Neutrophils % Seg Neuts % (Manual) 92.0 H Lymphocytes % (Manual) 2.0 L Nucleated RBC % Seg Neutrophils # Man 15.4 H Lymphocytes # (Manual) 0.3 L Monocytes # (Manual) 1.0 H Eosinophils # (Manual) PT INR D-Dimer Heparin Anti-Xa Level ABG pH ABG pO2 ABG HCO3 ABG O2 Saturation ABG Base Excess ABG Hemoglobin Oxyhemoglobin Sodium 130 L Potassium Chloride 90.1 L Carbon Dioxide BUN 61 H Creatinine 3.4 H Glucose 128 H POC Glucose 157 H Calcium Magnesium Ferritin Direct Bilirubin AST 103 H ALT 63 H Alkaline Phosphatase 534 H Lactate Dehydrogenase Troponin T C-Reactive Protein NT-Pro-B Natriuret Pep Total Protein Albumin 2.1 L Crossmatch 01/31/20 01/31/20 01/31/20 11:50 17:39 18:47 WBC RBC Hgb Hct MCV RDW Plt Count Lymph % (Auto) [place] % (Auto) Lymph # Seg Neutrophils % Seg Neuts % (Manual) Lymphocytes % (Manual) Nucleated RBC % Seg Neutrophils # Man Lymphocytes # (Manual) Monocytes # (Manual) Eosinophils # (Manual) PT INR D-Dimer Heparin Anti-Xa Level ABG pH ABG pO2 ABG HCO3 ABG O2 Saturation ABG Base Excess ABG Hemoglobin Oxyhemoglobin Sodium Potassium Chloride Carbon Dioxide BUN Creatinine Glucose POC Glucose 129 H 51 L 172 H Calcium Magnesium Ferritin Direct Bilirubin AST ALT Alkaline Phosphatase Lactate Dehydrogenase Troponin T C-Reactive Protein NT-Pro-B Natriuret Pep Total Protein Albumin Crossmatch 02/01/20 02/01/20 02/01/20 03:49 03:49 05:00 WBC 17.4 H RBC 2.68 L Hgb 8.0 L Hct 25.2 L MCV RDW 18.4 H Plt Count Lymph % (Auto) [place] % (Auto) Lymph # Seg Neutrophils % Seg Neuts % (Manual) Lymphocytes % (Manual) Nucleated RBC % Seg Neutrophils # Man Lymphocytes # (Manual) Monocytes # (Manual) Eosinophils # (Manual) PT INR D-Dimer Heparin Anti-Xa Level ABG pH 7.290 L ABG pO2 ABG HCO3 26.8 H ABG O2 Saturation ABG Base Excess ABG Hemoglobin 7.5 L Oxyhemoglobin 94.2 L Sodium 133 L Potassium Chloride 90.8 L Carbon Dioxide 21 L BUN 90 H Creatinine 4.6 H Glucose 145 H POC Glucose Calcium Magnesium Ferritin Direct Bilirubin AST ALT Alkaline Phosphatase Lactate Dehydrogenase Troponin T C-Reactive Protein NT-Pro-B Natriuret Pep Total Protein Albumin Crossmatch 02/01/20 02/01/20 02/01/20 05:34 06:09 12:42 WBC RBC Hgb Hct MCV RDW Plt Count Lymph % (Auto) [place] % (Auto) Lymph # Seg Neutrophils % Seg Neuts % (Manual) Lymphocytes % (Manual) Nucleated RBC % Seg Neutrophils # Man Lymphocytes # (Manual) Monocytes # (Manual) Eosinophils # (Manual) PT INR D-Dimer Heparin Anti-Xa Level ABG pH ABG pO2 ABG HCO3 ABG O2 Saturation ABG Base Excess ABG Hemoglobin Oxyhemoglobin Sodium Potassium Chloride Carbon Dioxide BUN Creatinine Glucose POC Glucose 166 H 143 H 218 H Calcium Magnesium Ferritin Direct Bilirubin AST ALT Alkaline Phosphatase Lactate Dehydrogenase Troponin T C-Reactive Protein NT-Pro-B Natriuret Pep Total Protein Albumin Crossmatch 02/01/20 02/01/20 02/02/20 17:38 18:24 05:00 WBC RBC Hgb Hct MCV RDW Plt Count Lymph % (Auto) [place] % (Auto) Lymph # Seg Neutrophils % Seg Neuts % (Manual) Lymphocytes % (Manual) Nucleated RBC % Seg Neutrophils # Man Lymphocytes # (Manual) Monocytes # (Manual) Eosinophils # (Manual) PT INR D-Dimer Heparin Anti-Xa Level ABG pH 7.317 L ABG pO2 ABG HCO3 28.2 H ABG O2 Saturation ABG Base Excess ABG Hemoglobin 10.1 L Oxyhemoglobin 94.0 L Sodium Potassium Chloride Carbon Dioxide BUN Creatinine Glucose POC Glucose 158 H 233 H Calcium Magnesium Ferritin Direct Bilirubin AST ALT Alkaline Phosphatase Lactate Dehydrogenase Troponin T C-Reactive Protein NT-Pro-B Natriuret Pep Total Protein Albumin Crossmatch 02/02/20 02/02/20 02/02/20 05:44 05:44 05:44 WBC 16.0 H RBC 2.85 L Hgb 8.3 L Hct 26.3 L MCV RDW 18.6 H Plt Count Lymph % (Auto) [place] % (Auto) Lymph # Seg Neutrophils % Seg Neuts % (Manual) 91.0 H Lymphocytes % (Manual) 2.0 L Nucleated RBC % Seg Neutrophils # Man 14.6 H Lymphocytes # (Manual) 0.3 L Monocytes # (Manual) Eosinophils # (Manual) PT INR D-Dimer Heparin Anti-Xa Level 0.77 H ABG pH ABG pO2 ABG HCO3 ABG O2 Saturation ABG Base Excess ABG Hemoglobin Oxyhemoglobin Sodium Potassium Chloride 95.5 L Carbon Dioxide BUN 57 H Creatinine 3.0 H Glucose 144 H POC Glucose Calcium 8.1 L Magnesium Ferritin Direct Bilirubin 0.3 H AST 179 H ALT 106 H Alkaline Phosphatase 557 H Lactate Dehydrogenase Troponin T C-Reactive Protein NT-Pro-B Natriuret Pep Total Protein 6.1 L Albumin 2.3 L Crossmatch 02/02/20 02/02/20 02/02/20 11:17 11:33 12:24 WBC RBC Hgb Hct MCV RDW Plt Count Lymph % (Auto) [place] % (Auto) Lymph # Seg Neutrophils % Seg Neuts % (Manual) Lymphocytes % (Manual) Nucleated RBC % Seg Neutrophils # Man Lymphocytes # (Manual) Monocytes # (Manual) Eosinophils # (Manual) PT INR D-Dimer Heparin Anti-Xa Level ABG pH ABG pO2 ABG HCO3 ABG O2 Saturation ABG Base Excess ABG Hemoglobin Oxyhemoglobin Sodium Potassium Chloride Carbon Dioxide BUN Creatinine Glucose POC Glucose < 40 L < 40 L 224 H Calcium Magnesium Ferritin Direct Bilirubin AST ALT Alkaline Phosphatase Lactate Dehydrogenase Troponin T C-Reactive Protein NT-Pro-B Natriuret Pep Total Protein Albumin Crossmatch 02/02/20 02/02/20 02/03/20 12:33 17:42 00:25 WBC RBC Hgb Hct MCV RDW Plt Count Lymph % (Auto) [place] % (Auto) Lymph # Seg Neutrophils % Seg Neuts % (Manual) Lymphocytes % (Manual) Nucleated RBC % Seg Neutrophils # Man Lymphocytes # (Manual) Monocytes # (Manual) Eosinophils # (Manual) PT INR D-Dimer Heparin Anti-Xa Level ABG pH ABG pO2 ABG HCO3 ABG O2 Saturation ABG Base Excess ABG Hemoglobin Oxyhemoglobin Sodium Potassium Chloride Carbon Dioxide BUN Creatinine Glucose 296 H POC Glucose 228 H < 40 L Calcium Magnesium Ferritin Direct Bilirubin AST ALT Alkaline Phosphatase Lactate Dehydrogenase Troponin T C-Reactive Protein NT-Pro-B Natriuret Pep Total Protein Albumin Crossmatch 02/03/20 02/03/20 02/03/20 00:27 03:59 03:59 WBC 22.9 H RBC 2.80 L Hgb 8.3 L Hct 27.4 L MCV 98 H RDW 19.2 H Plt Count Lymph % (Auto) [place] % (Auto) Lymph # Seg Neutrophils % Seg Neuts % (Manual) 92.0 H Lymphocytes % (Manual) 4.0 L Nucleated RBC % Seg Neutrophils # Man 21.1 H Lymphocytes # (Manual) 0.9 L Monocytes # (Manual) Eosinophils # (Manual) PT INR D-Dimer Heparin Anti-Xa Level ABG pH ABG pO2 ABG HCO3 ABG O2 Saturation ABG Base Excess ABG Hemoglobin Oxyhemoglobin Sodium 134 L Potassium 3.5 L Chloride Carbon Dioxide 21 L BUN 40 H Creatinine 2.6 H Glucose 180 H POC Glucose 198 H Calcium Magnesium Ferritin Direct Bilirubin AST ALT Alkaline Phosphatase Lactate Dehydrogenase Troponin T C-Reactive Protein NT-Pro-B Natriuret Pep Total Protein Albumin Crossmatch 02/03/20 02/03/20 02/03/20 04:48 05:00 12:21 WBC RBC Hgb Hct MCV RDW Plt Count Lymph % (Auto) [place] % (Auto) Lymph # Seg Neutrophils % Seg Neuts % (Manual) Lymphocytes % (Manual) Nucleated RBC % Seg Neutrophils # Man Lymphocytes # (Manual) Monocytes # (Manual) Eosinophils # (Manual) PT INR D-Dimer Heparin Anti-Xa Level ABG pH 7.315 L ABG pO2 97.3 H ABG HCO3 28.5 H ABG O2 Saturation ABG Base Excess ABG Hemoglobin 8.3 L Oxyhemoglobin 94.8 L Sodium Potassium Chloride Carbon Dioxide BUN Creatinine Glucose POC Glucose 182 H 201 H Calcium Magnesium Ferritin Direct Bilirubin AST ALT Alkaline Phosphatase Lactate Dehydrogenase Troponin T C-Reactive Protein NT-Pro-B Natriuret Pep Total Protein Albumin Crossmatch 02/03/20 02/03/20 02/04/20 17:43 23:36 04:50 WBC RBC Hgb Hct MCV RDW Plt Count Lymph % (Auto) [place] % (Auto) Lymph # Seg Neutrophils % Seg Neuts % (Manual) Lymphocytes % (Manual) Nucleated RBC % Seg Neutrophils # Man Lymphocytes # (Manual) Monocytes # (Manual) Eosinophils # (Manual) PT INR D-Dimer Heparin Anti-Xa Level ABG pH ABG pO2 ABG HCO3 ABG O2 Saturation ABG Base Excess ABG Hemoglobin Oxyhemoglobin Sodium 135 L Potassium Chloride 96.3 L Carbon Dioxide 21 L BUN 63 H Creatinine 4.1 H D Glucose 156 H POC Glucose 224 H 146 H Calcium 8.2 L Magnesium Ferritin Direct Bilirubin AST ALT Alkaline Phosphatase Lactate Dehydrogenase Troponin T C-Reactive Protein NT-Pro-B Natriuret Pep Total Protein Albumin Crossmatch 02/04/20 02/04/20 02/04/20 04:50 05:30 05:40 WBC 18.3 H RBC 2.31 L Hgb 6.9 L Hct 22.0 L MCV RDW 18.2 H Plt Count Lymph % (Auto) [place] % (Auto) Lymph # Seg Neutrophils % Seg Neuts % (Manual) 85.0 H Lymphocytes % (Manual) 4.0 L Nucleated RBC % 1.0 H Seg Neutrophils # Man 15.6 H Lymphocytes # (Manual) 0.7 L Monocytes # (Manual) Eosinophils # (Manual) PT INR D-Dimer Heparin Anti-Xa Level ABG pH 7.317 L ABG pO2 77.7 L ABG HCO3 27.4 H ABG O2 Saturation ABG Base Excess ABG Hemoglobin 8.0 L Oxyhemoglobin 94.5 L Sodium Potassium Chloride Carbon Dioxide BUN Creatinine Glucose POC Glucose 202 H Calcium Magnesium Ferritin Direct Bilirubin AST ALT Alkaline Phosphatase Lactate Dehydrogenase Troponin T C-Reactive Protein NT-Pro-B Natriuret Pep Total Protein Albumin Crossmatch 02/04/20 02/04/20 02/04/20 10:47 12:53 18:44 WBC RBC Hgb Hct MCV RDW Plt Count Lymph % (Auto) [place] % (Auto) Lymph # Seg Neutrophils % Seg Neuts % (Manual) Lymphocytes % (Manual) Nucleated RBC % Seg Neutrophils # Man Lymphocytes # (Manual) Monocytes # (Manual) Eosinophils # (Manual) PT INR D-Dimer Heparin Anti-Xa Level ABG pH ABG pO2 ABG HCO3 ABG O2 Saturation ABG Base Excess ABG Hemoglobin Oxyhemoglobin Sodium Potassium Chloride Carbon Dioxide BUN Creatinine Glucose POC Glucose 197 H 143 H Calcium Magnesium Ferritin Direct Bilirubin AST ALT Alkaline Phosphatase Lactate Dehydrogenase Troponin T C-Reactive Protein NT-Pro-B Natriuret Pep Total Protein Albumin Crossmatch See Detail 02/05/20 02/05/20 02/05/20 00:43 04:14 04:35 WBC RBC Hgb Hct MCV RDW Plt Count Lymph % (Auto) [place] % (Auto) Lymph # Seg Neutrophils % Seg Neuts % (Manual) Lymphocytes % (Manual) Nucleated RBC % Seg Neutrophils # Man Lymphocytes # (Manual) Monocytes # (Manual) Eosinophils # (Manual) PT INR D-Dimer Heparin Anti-Xa Level ABG pH 7.327 L ABG pO2 75.5 L ABG HCO3 30.1 H ABG O2 Saturation ABG Base Excess 3.5 H ABG Hemoglobin 8.4 L Oxyhemoglobin 93.8 L Sodium 134 L Potassium 3.3 L Chloride 97.3 L Carbon Dioxide BUN 38 H Creatinine 2.2 H Glucose 187 H POC Glucose 163 H Calcium 8.1 L Magnesium Ferritin Direct Bilirubin AST ALT Alkaline Phosphatase Lactate Dehydrogenase Troponin T C-Reactive Protein NT-Pro-B Natriuret Pep Total Protein Albumin Crossmatch 02/05/20 02/05/20 02/05/20 04:35 05:16 12:17 WBC 24.4 H RBC 2.75 L Hgb 7.9 L Hct 25.2 L MCV RDW 18.1 H Plt Count Lymph % (Auto) [place] % (Auto) Lymph # Seg Neutrophils % Seg Neuts % (Manual) 96.0 H Lymphocytes % (Manual) 1.0 L Nucleated RBC % Seg Neutrophils # Man 23.4 H Lymphocytes # (Manual) 0.2 L Monocytes # (Manual) Eosinophils # (Manual) 0.5 H PT INR D-Dimer Heparin Anti-Xa Level ABG pH ABG pO2 ABG HCO3 ABG O2 Saturation ABG Base Excess ABG Hemoglobin Oxyhemoglobin Sodium Potassium Chloride Carbon Dioxide BUN Creatinine Glucose POC Glucose 196 H 174 H Calcium Magnesium Ferritin Direct Bilirubin AST ALT Alkaline Phosphatase Lactate Dehydrogenase Troponin T C-Reactive Protein NT-Pro-B Natriuret Pep Total Protein Albumin Crossmatch 02/05/20 02/05/20 02/05/20 13:55 13:55 13:55 WBC RBC Hgb Hct MCV RDW Plt Count Lymph % (Auto) [place] % (Auto) Lymph # Seg Neutrophils % Seg Neuts % (Manual) Lymphocytes % (Manual) Nucleated RBC % Seg Neutrophils # Man Lymphocytes # (Manual) Monocytes # (Manual) Eosinophils # (Manual) PT INR D-Dimer 2896.73 H Heparin Anti-Xa Level ABG pH ABG pO2 ABG HCO3 ABG O2 Saturation ABG Base Excess ABG Hemoglobin Oxyhemoglobin Sodium Potassium Chloride Carbon Dioxide BUN Creatinine Glucose POC Glucose Calcium Magnesium Ferritin > 2000.0 H Direct Bilirubin AST ALT Alkaline Phosphatase Lactate Dehydrogenase 311 H Troponin T C-Reactive Protein 17.30 H NT-Pro-B Natriuret Pep Total Protein Albumin Crossmatch 02/05/20 02/05/20 02/06/20 17:20 21:53 04:50 WBC RBC Hgb Hct MCV RDW Plt Count Lymph % (Auto) [place] % (Auto) Lymph # Seg Neutrophils % Seg Neuts % (Manual) Lymphocytes % (Manual) Nucleated RBC % Seg Neutrophils # Man Lymphocytes # (Manual) Monocytes # (Manual) Eosinophils # (Manual) PT INR D-Dimer Heparin Anti-Xa Level ABG pH 7.349 L ABG pO2 64.5 L ABG HCO3 28.4 H ABG O2 Saturation 94.0 L ABG Base Excess ABG Hemoglobin 8.4 L Oxyhemoglobin 91.8 L Sodium Potassium Chloride Carbon Dioxide BUN Creatinine Glucose POC Glucose 191 H 200 H Calcium Magnesium Ferritin Direct Bilirubin AST ALT Alkaline Phosphatase Lactate Dehydrogenase Troponin T C-Reactive Protein NT-Pro-B Natriuret Pep Total Protein Albumin Crossmatch 02/06/20 02/06/20 02/06/20 05:55 05:55 05:58 WBC 22.4 H RBC 3.02 L Hgb 8.5 L Hct 27.6 L MCV RDW 18.8 H Plt Count Lymph % (Auto) [place] % (Auto) Lymph # Seg Neutrophils % Seg Neuts % (Manual) Lymphocytes % (Manual) Nucleated RBC % Seg Neutrophils # Man Lymphocytes # (Manual) Monocytes # (Manual) Eosinophils # (Manual) PT INR D-Dimer Heparin Anti-Xa Level ABG pH ABG pO2 ABG HCO3 ABG O2 Saturation ABG Base Excess ABG Hemoglobin Oxyhemoglobin Sodium 136 L Potassium Chloride 96.4 L Carbon Dioxide BUN 66 H Creatinine 3.6 H D Glucose 139 H POC Glucose 110 H Calcium Magnesium Ferritin Direct Bilirubin AST ALT Alkaline Phosphatase Lactate Dehydrogenase Troponin T C-Reactive Protein NT-Pro-B Natriuret Pep Total Protein Albumin Crossmatch 02/06/20 02/06/20 02/06/20 12:19 17:52 23:47 WBC RBC Hgb Hct MCV RDW Plt Count Lymph % (Auto) [place] % (Auto) Lymph # Seg Neutrophils % Seg Neuts % (Manual) Lymphocytes % (Manual) Nucleated RBC % Seg Neutrophils # Man Lymphocytes # (Manual) Monocytes # (Manual) Eosinophils # (Manual) PT INR D-Dimer Heparin Anti-Xa Level ABG pH ABG pO2 ABG HCO3 ABG O2 Saturation ABG Base Excess ABG Hemoglobin Oxyhemoglobin Sodium Potassium Chloride Carbon Dioxide BUN Creatinine Glucose POC Glucose 185 H 185 H 173 H Calcium Magnesium Ferritin Direct Bilirubin AST ALT Alkaline Phosphatase Lactate Dehydrogenase Troponin T C-Reactive Protein NT-Pro-B Natriuret Pep Total Protein Albumin Crossmatch 02/07/20 02/07/20 02/07/20 05:04 11:46 11:52 WBC RBC Hgb Hct MCV RDW Plt Count Lymph % (Auto) [place] % (Auto) Lymph # Seg Neutrophils % Seg Neuts % (Manual) Lymphocytes % (Manual) Nucleated RBC % Seg Neutrophils # Man Lymphocytes # (Manual) Monocytes # (Manual) Eosinophils # (Manual) PT INR D-Dimer Heparin Anti-Xa Level ABG pH ABG pO2 ABG HCO3 ABG O2 Saturation ABG Base Excess ABG Hemoglobin Oxyhemoglobin Sodium Potassium Chloride Carbon Dioxide BUN Creatinine Glucose POC Glucose 145 H 240 H 251 H Calcium Magnesium Ferritin Direct Bilirubin AST ALT Alkaline Phosphatase Lactate Dehydrogenase Troponin T C-Reactive Protein NT-Pro-B Natriuret Pep Total Protein Albumin Crossmatch 02/07/20 02/08/20 02/08/20 18:18 00:22 05:43 WBC RBC Hgb Hct MCV RDW Plt Count Lymph % (Auto) [place] % (Auto) Lymph # Seg Neutrophils % Seg Neuts % (Manual) Lymphocytes % (Manual) Nucleated RBC % Seg Neutrophils # Man Lymphocytes # (Manual) Monocytes # (Manual) Eosinophils # (Manual) PT INR D-Dimer Heparin Anti-Xa Level ABG pH ABG pO2 ABG HCO3 ABG O2 Saturation ABG Base Excess ABG Hemoglobin Oxyhemoglobin Sodium Potassium Chloride Carbon Dioxide BUN Creatinine Glucose POC Glucose 225 H 274 H 307 H Calcium Magnesium Ferritin Direct Bilirubin AST ALT Alkaline Phosphatase Lactate Dehydrogenase Troponin T C-Reactive Protein NT-Pro-B Natriuret Pep Total Protein Albumin Crossmatch 02/08/20 02/08/20 02/08/20 09:40 12:09 17:42 WBC RBC Hgb Hct MCV RDW Plt Count Lymph % (Auto) [place] % (Auto) Lymph # Seg Neutrophils % Seg Neuts % (Manual) Lymphocytes % (Manual) Nucleated RBC % Seg Neutrophils # Man Lymphocytes # (Manual) Monocytes # (Manual) Eosinophils # (Manual) PT INR D-Dimer Heparin Anti-Xa Level ABG pH 7.167 L* ABG pO2 ABG HCO3 30.3 H ABG O2 Saturation 92.6 L ABG Base Excess ABG Hemoglobin 8.8 L Oxyhemoglobin 90.4 L Sodium Potassium Chloride Carbon Dioxide BUN Creatinine Glucose POC Glucose 327 H 269 H Calcium Magnesium Ferritin Direct Bilirubin AST ALT Alkaline Phosphatase Lactate Dehydrogenase Troponin T C-Reactive Protein NT-Pro-B Natriuret Pep Total Protein Albumin Crossmatch 02/08/20 02/09/20 02/09/20 20:45 01:16 04:48 WBC 22.9 H RBC 2.86 L Hgb 8.3 L Hct 26.2 L MCV RDW 18.0 H Plt Count 507 H Lymph % (Auto) [place] % (Auto) Lymph # Seg Neutrophils % Seg Neuts % (Manual) Lymphocytes % (Manual) Nucleated RBC % Seg Neutrophils # Man Lymphocytes # (Manual) Monocytes # (Manual) Eosinophils # (Manual) PT INR D-Dimer Heparin Anti-Xa Level ABG pH ABG pO2 79.1 L ABG HCO3 31.7 H ABG O2 Saturation ABG Base Excess 4.6 H ABG Hemoglobin Oxyhemoglobin 93.5 L Sodium Potassium Chloride Carbon Dioxide BUN Creatinine Glucose POC Glucose 150 H Calcium Magnesium Ferritin Direct Bilirubin AST ALT Alkaline Phosphatase Lactate Dehydrogenase Troponin T C-Reactive Protein NT-Pro-B Natriuret Pep Total Protein Albumin Crossmatch 02/09/20 02/09/20 02/09/20 04:48 05:14 13:11 WBC RBC Hgb Hct MCV RDW Plt Count Lymph % (Auto) [place] % (Auto) Lymph # Seg Neutrophils % Seg Neuts % (Manual) Lymphocytes % (Manual) Nucleated RBC % Seg Neutrophils # Man Lymphocytes # (Manual) Monocytes # (Manual) Eosinophils # (Manual) PT INR D-Dimer Heparin Anti-Xa Level ABG pH ABG pO2 ABG HCO3 ABG O2 Saturation ABG Base Excess ABG Hemoglobin Oxyhemoglobin Sodium Potassium Chloride 93.9 L Carbon Dioxide BUN 59 H Creatinine 2.5 H Glucose 309 H POC Glucose 356 H 184 H Calcium Magnesium Ferritin Direct Bilirubin AST ALT Alkaline Phosphatase Lactate Dehydrogenase Troponin T C-Reactive Protein NT-Pro-B Natriuret Pep Total Protein Albumin Crossmatch 02/09/20 02/10/20 02/10/20 16:53 00:20 05:38 WBC RBC Hgb Hct MCV RDW Plt Count Lymph % (Auto) [place] % (Auto) Lymph # Seg Neutrophils % Seg Neuts % (Manual) Lymphocytes % (Manual) Nucleated RBC % Seg Neutrophils # Man Lymphocytes # (Manual) Monocytes # (Manual) Eosinophils # (Manual) PT INR D-Dimer Heparin Anti-Xa Level ABG pH ABG pO2 ABG HCO3 ABG O2 Saturation ABG Base Excess ABG Hemoglobin Oxyhemoglobin Sodium Potassium Chloride Carbon Dioxide BUN Creatinine Glucose POC Glucose 357 H 298 H 300 H Calcium Magnesium Ferritin Direct Bilirubin AST ALT Alkaline Phosphatase Lactate Dehydrogenase Troponin T C-Reactive Protein NT-Pro-B Natriuret Pep Total Protein Albumin Crossmatch 02/10/20 02/10/20 02/11/20 12:38 18:17 00:08 WBC RBC Hgb Hct MCV RDW Plt Count Lymph % (Auto) [place] % (Auto) Lymph # Seg Neutrophils % Seg Neuts % (Manual) Lymphocytes % (Manual) Nucleated RBC % Seg Neutrophils # Man Lymphocytes # (Manual) Monocytes # (Manual) Eosinophils # (Manual) PT INR D-Dimer Heparin Anti-Xa Level ABG pH ABG pO2 ABG HCO3 ABG O2 Saturation ABG Base Excess ABG Hemoglobin Oxyhemoglobin Sodium Potassium Chloride Carbon Dioxide BUN Creatinine Glucose POC Glucose 350 H 271 H 164 H Calcium Magnesium Ferritin Direct Bilirubin AST ALT Alkaline Phosphatase Lactate Dehydrogenase Troponin T C-Reactive Protein NT-Pro-B Natriuret Pep Total Protein Albumin Crossmatch 02/11/20 02/11/20 02/11/20 05:34 12:18 17:27 WBC RBC Hgb Hct MCV RDW Plt Count Lymph % (Auto) [place] % (Auto) Lymph # Seg Neutrophils % Seg Neuts % (Manual) Lymphocytes % (Manual) Nucleated RBC % Seg Neutrophils # Man Lymphocytes # (Manual) Monocytes # (Manual) Eosinophils # (Manual) PT INR D-Dimer Heparin Anti-Xa Level ABG pH ABG pO2 ABG HCO3 ABG O2 Saturation ABG Base Excess ABG Hemoglobin Oxyhemoglobin Sodium Potassium Chloride Carbon Dioxide BUN Creatinine Glucose POC Glucose 274 H 246 H 174 H Calcium Magnesium Ferritin Direct Bilirubin AST ALT Alkaline Phosphatase Lactate Dehydrogenase Troponin T C-Reactive Protein NT-Pro-B Natriuret Pep Total Protein Albumin Crossmatch 02/12/20 02/12/20 02/12/20 00:19 05:00 05:00 WBC 31.3 H RBC 2.79 L Hgb 8.0 L Hct 25.4 L MCV RDW 18.4 H Plt Count 566 H Lymph % (Auto) [place] % (Auto) Lymph # Seg Neutrophils % Seg Neuts % (Manual) Lymphocytes % (Manual) Nucleated RBC % Seg Neutrophils # Man Lymphocytes # (Manual) Monocytes # (Manual) Eosinophils # (Manual) PT INR D-Dimer Heparin Anti-Xa Level ABG pH ABG pO2 ABG HCO3 ABG O2 Saturation ABG Base Excess ABG Hemoglobin Oxyhemoglobin Sodium 136 L Potassium Chloride 95.6 L Carbon Dioxide BUN 102 H Creatinine 3.0 H Glucose 170 H POC Glucose 227 H Calcium Magnesium Ferritin Direct Bilirubin AST ALT Alkaline Phosphatase Lactate Dehydrogenase Troponin T C-Reactive Protein NT-Pro-B Natriuret Pep Total Protein Albumin Crossmatch 02/12/20 02/12/20 02/12/20 05:25 12:21 18:58 WBC RBC Hgb Hct MCV RDW Plt Count Lymph % (Auto) [place] % (Auto) Lymph # Seg Neutrophils % Seg Neuts % (Manual) Lymphocytes % (Manual) Nucleated RBC % Seg Neutrophils # Man Lymphocytes # (Manual) Monocytes # (Manual) Eosinophils # (Manual) PT INR D-Dimer Heparin Anti-Xa Level ABG pH ABG pO2 ABG HCO3 ABG O2 Saturation ABG Base Excess ABG Hemoglobin Oxyhemoglobin Sodium Potassium Chloride Carbon Dioxide BUN Creatinine Glucose POC Glucose 157 H 230 H 197 H Calcium Magnesium Ferritin Direct Bilirubin AST ALT Alkaline Phosphatase Lactate Dehydrogenase Troponin T C-Reactive Protein NT-Pro-B Natriuret Pep Total Protein Albumin Crossmatch 02/12/20 02/13/20 02/13/20 23:36 05:30 08:39 WBC RBC Hgb Hct MCV RDW Plt Count Lymph % (Auto) [place] % (Auto) Lymph # Seg Neutrophils % Seg Neuts % (Manual) Lymphocytes % (Manual) Nucleated RBC % Seg Neutrophils # Man Lymphocytes # (Manual) Monocytes # (Manual) Eosinophils # (Manual) PT INR D-Dimer Heparin Anti-Xa Level ABG pH ABG pO2 ABG HCO3 ABG O2 Saturation ABG Base Excess ABG Hemoglobin Oxyhemoglobin Sodium 135 L Potassium Chloride 93.8 L Carbon Dioxide BUN 72 H Creatinine 2.2 H Glucose 212 H POC Glucose 166 H 247 H Calcium Magnesium Ferritin Direct Bilirubin AST ALT Alkaline Phosphatase Lactate Dehydrogenase Troponin T C-Reactive Protein NT-Pro-B Natriuret Pep Total Protein Albumin Crossmatch 02/13/20 02/13/20 02/13/20 13:19 18:05 23:37 WBC RBC Hgb Hct MCV RDW Plt Count Lymph % (Auto) [place] % (Auto) Lymph # Seg Neutrophils % Seg Neuts % (Manual) Lymphocytes % (Manual) Nucleated RBC % Seg Neutrophils # Man Lymphocytes # (Manual) Monocytes # (Manual) Eosinophils # (Manual) PT INR D-Dimer Heparin Anti-Xa Level ABG pH ABG pO2 ABG HCO3 ABG O2 Saturation ABG Base Excess ABG Hemoglobin Oxyhemoglobin Sodium Potassium Chloride Carbon Dioxide BUN Creatinine Glucose POC Glucose 244 H 232 H 233 H Calcium Magnesium Ferritin Direct Bilirubin AST ALT Alkaline Phosphatase Lactate Dehydrogenase Troponin T C-Reactive Protein NT-Pro-B Natriuret Pep Total Protein Albumin Crossmatch 02/14/20 02/14/20 02/14/20 05:11 11:36 17:36 WBC RBC Hgb Hct MCV RDW Plt Count Lymph % (Auto) [place] % (Auto) Lymph # Seg Neutrophils % Seg Neuts % (Manual) Lymphocytes % (Manual) Nucleated RBC % Seg Neutrophils # Man Lymphocytes # (Manual) Monocytes # (Manual) Eosinophils # (Manual) PT INR D-Dimer Heparin Anti-Xa Level ABG pH ABG pO2 ABG HCO3 ABG O2 Saturation ABG Base Excess ABG Hemoglobin Oxyhemoglobin Sodium Potassium Chloride Carbon Dioxide BUN Creatinine Glucose POC Glucose 239 H 67 L 216 H Calcium Magnesium Ferritin Direct Bilirubin AST ALT Alkaline Phosphatase Lactate Dehydrogenase Troponin T C-Reactive Protein NT-Pro-B Natriuret Pep Total Protein Albumin Crossmatch 04/3002/14/20 02/15/20 18:30 23:41 04:58 WBC 36.1 H RBC 3.53 L Hgb Hct MCV RDW 19.4 H Plt Count 750 H Lymph % (Auto) [place] % (Auto) Lymph # Seg Neutrophils % Seg Neuts % (Manual) Lymphocytes % (Manual) Nucleated RBC % Seg Neutrophils # Man Lymphocytes # (Manual) Monocytes # (Manual) Eosinophils # (Manual) PT INR D-Dimer Heparin Anti-Xa Level ABG pH ABG pO2 ABG HCO3 ABG O2 Saturation ABG Base Excess ABG Hemoglobin Oxyhemoglobin Sodium Potassium Chloride Carbon Dioxide BUN Creatinine Glucose POC Glucose 141 H 203 H Calcium Magnesium Ferritin Direct Bilirubin AST ALT Alkaline Phosphatase Lactate Dehydrogenase Troponin T C-Reactive Protein NT-Pro-B Natriuret Pep Total Protein Albumin Crossmatch 02/15/20 02/15/20 02/15/20 04:58 04:58 18:13 WBC RBC Hgb Hct MCV RDW Plt Count Lymph % (Auto) [place] % (Auto) Lymph # Seg Neutrophils % Seg Neuts % (Manual) Lymphocytes % (Manual) Nucleated RBC % Seg Neutrophils # Man Lymphocytes # (Manual) Monocytes # (Manual) Eosinophils # (Manual) PT 15.2 H INR 1.18 H D-Dimer Heparin Anti-Xa Level ABG pH ABG pO2 ABG HCO3 ABG O2 Saturation ABG Base Excess ABG Hemoglobin Oxyhemoglobin Sodium Potassium 5.4 H Chloride 94.5 L Carbon Dioxide BUN 102 H Creatinine 3.1 H Glucose POC Glucose 69 L Calcium Magnesium Ferritin Direct Bilirubin AST ALT Alkaline Phosphatase Lactate Dehydrogenase Troponin T C-Reactive Protein NT-Pro-B Natriuret Pep Total Protein Albumin Crossmatch 02/16/20 02/16/20 05:53 12:08 WBC RBC Hgb Hct MCV RDW Plt Count Lymph % (Auto) [place] % (Auto) Lymph # Seg Neutrophils % Seg Neuts % (Manual) Lymphocytes % (Manual) Nucleated RBC % Seg Neutrophils # Man Lymphocytes # (Manual) Monocytes # (Manual) Eosinophils # (Manual) PT INR D-Dimer Heparin Anti-Xa Level ABG pH ABG pO2 ABG HCO3 ABG O2 Saturation ABG Base Excess ABG Hemoglobin Oxyhemoglobin Sodium Potassium Chloride Carbon Dioxide BUN Creatinine Glucose POC Glucose 64 L 178 H Calcium Magnesium Ferritin Direct Bilirubin AST ALT Alkaline Phosphatase Lactate Dehydrogenase Troponin T C-Reactive Protein NT-Pro-B Natriuret Pep Total Protein Albumin Crossmatch Chest x-ray: image reviewed (Trach in good position, billat infiltrates better) Allied health notes reviewed: nursing
--- NOTE | 2020-02-16 13:37 | Progress Note ---
Assessment and Plan - Patient Problems (1) End stage renal disease on dialysis Current Visit: No Status: Chronic Plan to address problem: hemodialysis 4 times a week due to worsening azotemia with hypercatabolic state. 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 Status post trach and PEG awaiting transfer to LTAC (3) Pneumonia due to COVID-19 virus Current Visit: Yes Status: Acute Plan to address problem: continue treatment per infectious disease. (4) Volume overload Current Visit: Yes Status: Acute Qualifiers: Plan to address problem: end-stage renal disease with fluid overload. Resolved with fluid removal on dialysis. (5) Anemia in CKD (chronic kidney disease) Current Visit: Yes Status: Acute Qualifiers: Chronic kidney disease stage: on chronic dialysis Qualified Code(s): N18.6 - End stage renal disease; D63.1 - Anemia in chronic kidney disease; Z99.2 - Dependence on renal dialysis Plan to address problem: give erythropoietin on dialysis (6) T2DM (type 2 diabetes mellitus) Current Visit: Yes Status: Acute Qualifiers: Diabetes mellitus terminal supervisor insulin use: unspecified terminal supervisor insulin use status Plan to address problem: blood sugar management by primary attending. (7) Hypertensive chronic kidney disease with stage 5 chronic kidney disease or end stage renal disease Current Visit: No Status: Chronic Plan to address problem: patient is stable off of vasopressor. Follow blood pressure Subjective Date of service: 02/16/20 Principal diagnosis: Pneumonia Interval history: Patient is intubated on the ventilator in intensive care unit. Not on vasopressor. Patient was seen and examined this morning Objective - Exam Narrative Exam: elderly -[place] female lying in bed intubated on the ventilator HEENT: Normocephalic atraumatic, pupils equal round reactive to light ETT intact Neck: Supple, no venous distention, no goiter CVS: S1S2 RRR No murmur, rub or gallop Lungs: Coarse Bs, no use of accessory muscles of respiration Abdomen: Full, soft, nontender, no organomegaly no bruit, bowel sounds are present Extremities: No edema, no cyanosis or clubbing Urinary: Deferred Musculo-skeletal: No joint deformities or swelling Neuro Not following commands, - Vital Signs Vital signs: Vital Signs - 12hr 0502/16/20 02/16/20 02:00 03:00 04:00 Temperature 98.4 F Pulse Rate 101 H 97 H 96 H Respiratory 12 22 21 Rate Blood Pressure 117/59 132/51 132/51 O2 Sat by Pulse 99 100 99 Oximetry O2 Sat by Pulse Oximetry [ Assessment] 02/16/20 02/16/20 02/16/20 05:00 05:11 06:00 Temperature Pulse Rate 96 H 96 H 96 H Respiratory 19 23 Rate Blood Pressure 117/52 117/52 117/52 O2 Sat by Pulse 100 100 100 Oximetry O2 Sat by Pulse Oximetry [ Assessment] 02/16/20 02/16/20 02/16/20 07:00 08:00 09:00 Temperature 98.4 F Pulse Rate 95 H 94 H 96 H Respiratory 20 25 H 25 H Rate Blood Pressure 97/50 108/49 140/62 O2 Sat by Pulse 100 100 100 Oximetry O2 Sat by Pulse 100 Oximetry [ Assessment] 02/16/20 02/16/20 02/16/20 10:00 11:00 12:00 Temperature Pulse Rate 101 H 101 H 106 H Respiratory 19 19 21 Rate Blood Pressure 123/53 133/62 135/52 O2 Sat by Pulse 100 100 99 Oximetry O2 Sat by Pulse Oximetry [ Assessment] 02/16/20 12:29 Temperature Pulse Rate 107 H Respiratory Rate Blood Pressure 127/52 O2 Sat by Pulse 100 Oximetry O2 Sat by Pulse Oximetry [ Assessment] - Lab 02/15/20 04:58 02/15/20 04:58 Most recent lab results ABG pH 7.351 pH Units (7.350-7.450) 02/08/20 20:45 ABG pCO2 58.7 mm Hg 02/08/20 20:45 ABG pO2 79.1 mm Hg (80.0-90.0) L 02/08/20 20:45 ABG HCO3 31.7 mmol/L (20.0-26.0) H 02/08/20 20:45 ABG O2 Saturation 95.6 % (95.0-99.0) 02/08/20 20:45 Calcium 9.6 mg/dL (8.4-10.2) 02/15/20 04:58 Phosphorus 3.30 mg/dL (2.5-4.5) 01/12/20 16:01 Magnesium 2.00 mg/dL (1.7-2.3) 01/13/20 06:11 Medications & Allergies - Medications Allergies/Adverse Reactions: Allergies cheese Allergy (Mild, Verified 12/20/19 10:19) Itching iodine Allergy (Mild, Verified 12/20/19 10:16) Anaphylaxis clonidine Allergy (Verified 12/19/19 04:13) Anaphylaxis shellfish derived Adverse Reaction (Verified 12/19/19 04:13) Angioedema Home Medications: Home Medications Medication Instructions Recorded Confirmed Last Taken Type Atorvastatin [Lipitor] 40 mg PO DAILY 11/06/19 01/13/20 01/02/20 10:00 History DULoxetine [Cymbalta] 30 mg PO QDAY #30 capsule 01/04/20 01/13/20 Unknown Rx Acetaminophen [Acetaminophen TAB] 650 mg PO Q4H PRN tablet 02/16/20 Unknown Rx AtorvaSTATin [Lipitor] 40 mg PO QHS tablet 02/16/20 Unknown Rx Insulin Glargine [Lantus VIAL] 15 units SUB-Q DAILY 30 Days units 02/16/20 Unknown Rx Lipase/Protease/Amylase [Pancreaze 1 each FEEDTUBE PRN PRN capsule 02/16/20 Un known Rx 10,500 Unit] Lispro Insulin [HumaLOG] 0 unit SUB-Q Q6HR units 02/16/20 Unknown Rx Simple Syrup 15 ml FEEDTUBE PRN PRN oral.liqd 02/16/20 Unknown Rx Simple Syrup 30 ml FEEDTUBE PRN PRN oral.liqd 02/16/20 Unknown Rx Sodium Bicarbonate 325 mg FEEDTUBE PRN PRN tablet 02/16/20 Unknown Rx methylPREDNISolone Sod Suc 20 mg IV Q8HR vial 02/16/20 Unknown Rx [Solu-MEDROL] Active Medications: Generic Name Dose Route Start Last Admin Trade Name Freq PRN Reason Stop Dose Admin Acetaminophen 650 mg 01/09/20 16:33 02/05/20 05:58 Tylenol PO 650 mg Q4H PRN Administration Pain MILD(1-3)/Fever >100.5/MEANS Lipase/Protease/Amylase 1 each 01/23/20 14:28 02/07/20 13:18 Pancreaze 10,500 Unit FEEDTUBE 1 each PRN PRN Administration For Clogged Feeding Tube Atorvastatin Calcium 40 mg 01/09/20 22:00 02/15/20 22:50 Lipitor PO 40 mg QHS PHILLY Administration Dextrose 50 ml 01/23/20 07:26 02/16/20 06:03 D50w (25gm) Syringe IV 50 ml Q30MIN PRN Administration BLOOD GLUCOSE < 70 Dextrose 25 ml 01/24/20 08:58 01/24/20 13:41 D50w (25gm) Syringe IV 25 ml Q4H PRN Administration BG < 80 MG/DL Docusate Sodium 100 mg 01/25/20 22:00 02/16/20 10:56 Colace PO 100 mg BID PHILLY Administration Epoetin Helio 20,000 unit 02/04/20 12:00 02/04/20 13:00 Procrit SUB-Q 20,000 unit SILVERIO PHILLY Administration Famotidine 20 mg 01/09/20 22:00 02/16/20 10:55 Pepcid PO 20 mg DAILY PHILLY Administration Heparin Sodium (Porcine) 5,000 unit 02/07/20 10:00 02/16/20 10:56 Heparin SUB-Q 5,000 unit Q12HR PHILLY Administration Norepinephrine 4 mg in 250 mls @ 7.5 mls/hr 01/21/20 18:00 02/11/20 15:00 Levophed Drip 4 Mg/Ns 250 Ml IV 0 mcg/min TITR PHILLY 0 mls/hr Titration Protocol 2 MCG/MIN Sodium Chloride 100 mls @ 999 mls/hr 02/12/20 08:17 Nacl 0.9% IV SILVERIO PRN Hypotension Sodium Chloride 1,000 mls @ 50 mls/hr 02/15/20 08:00 Nacl 0.9% 1000 Ml IV DIRECT PHILLY Insulin Glargine 15 units 02/10/20 13:00 02/16/20 10:56 Lantus SUB-Q 15 units DAILY PHILLY Administration Insulin Human Lispro 0 unit 02/07/20 12:00 02/16/20 05:51 Humalog SUB-Q Not Given Q6HR [facility] Protocol Lorazepam 2 mg 01/23/20 15:36 Ativan IV Q10MIN PRN Agitation Methylprednisolone Sodium Succinate 20 mg 02/14/20 14:00 02/16/20 06:02 Solu-Medrol IV 20 mg Q8HR PHILLY Administration Ondansetron HCl 4 mg 01/09/20 16:33 01/20/20 10:19 Zofran IV 4 mg Q8H PRN Administration Nausea And Vomiting Simple Syrup 15 ml 01/23/20 14:28 02/14/20 12:02 Simple Syrup FEEDTUBE 15 ml PRN PRN Administration Hypoglycemia Simple Syrup 30 ml 01/23/20 14:28 Simple Syrup FEEDTUBE PRN PRN Hypoglycemia Sodium Bicarbonate 325 mg 01/23/20 14:28 Sodium Bicarbonate FEEDTUBE PRN PRN For Clogged Feeding Tube Sodium Chloride 10 ml 01/09/20 22:00 02/16/20 10:58 Sodium Chloride Flush Syringe 10 Ml IV 10 ml BID PHILLY Administration Sodium Chloride 10 ml 01/09/20 16:33 Sodium Chloride Flush Syringe 10 Ml IV PRN PRN LINE FLUSH
[2020-02-17] MEDS: INSULIN LISPRO 100 UNIT/ML SUB-Q SCH ×4 (00:46→18:20)
[2020-02-17] MEDS: HEPARIN 5,000 UNIT/1 ML VIAL SUB-Q SCH ×3 (00:57→22:46)
[2020-02-17] MEDS: methylPREDNISolone Sod Succinate 40 MG/1 ML INJ IV SCH ×3 (05:31→22:45)
[2020-02-17] MEDS: DOCUSATE SODIUM 100 MG/10 ML ORAL LIQD PO SCH (09:50)
[2020-02-17] MEDS: FAMOTIDINE 20 MG TAB PO SCH (09:50)
[2020-02-17] MEDS: INSULIN GLARGINE 100 UNITS/ML SUB-Q SCH (09:50)
--- NOTE | 2020-02-17 09:59 | Progress Note ---
Assessment and Plan Assessment and plan: 64-year-old female with history of hyperlipidemia, end-stage renal disease on dialysis, hypertension and depression admitted on due to a week history of chest pain and shortness of breath and generalized body swelling. Patient had MELVIN and orthopnea prior to admission. In spite of dialysis, the patient did not feel better. No nausea vomiting reported on admission. No fever or chills. No exposure to coronavirus patients or family members. On arrival, temp 99-100.5. WBC normal with lymphopenia. Trop high. Blood culture negative. CXR steph interstitial infiltrates. The patient was admitted with suspected COVID- 19 which was later confirmed. Patient was noted to have elevated inflammatory markers of ferritin, CRP, LDH and d-dimer. The patient was admitted with diagnosis of acute hypoxemic respiratory failure secondary to COVID-19 infection/viral pneumonia, ARDS. Patient also had other complications with acute on chronic diastolic heart failure secondary to volume overload. Patient also underwent stress test that was negative for ischemia for chest pain. Bilateral pneumonia. Continue antibiotics per ID ARDS. Etiology secondary to above. Acute hypoxemic respiratory failure. Continue oxygen to maintain sats greater than 92% Appears stable on HFNC; wean FiO2 then flow Chest pain Stress test neg for ischemia GERD and costochondritis in differential diagnosis Volume overload s/p hemodialysis Nephrology consulted,following Acute on Chronic diastolic CHF exacerbation Secondary to volume overload End stage renal disease on dialysis Nephrology following T2DM (type 2 diabetes mellitus) Continue continue coverage Check hemoglobin A1c Hypertension Continue antihypertensives Hyponatremia Secondary to increased volume--dilutional DVT prophylaxis On heparin and GI prophylaxis 01/11 Covid 19 survey testing sent, nasal swab done 01/10 01/12 Patient has acute resp failure. may need Oxygen on dc. awaiting Covid result 01/13 Still has shortness of breath, awaiting Covid test. 01/14 Pt still dyspneic, await covid testing, Pulse ox 83% 01/16/2020. Patient remains dyspneic. Follow-up COVID testing. 01/17/2020. Patient still requiring large amounts of oxygen. Patient currently with 15 L satting at 95%. Patient with increased inflammatory markers. Follow-up chest x-ray today. 01/18/20--Patient still requiring large amounts of oxygen. Patient currently with 15 L %. Patient with increased inflammatory markers. 01/19/2020 very elevated inflammatory markers- ferritin> 2000, CRP >24, LDH> 600, d-dimer >1000 putting her at high risk for ARDS. Continue hydroxychloroquine 400 mg PO BID for 1 day then 200 mg PO BID for 4 days (total 5 days) with zinc 2 20 mg PO qday. Continue ceftriaxone. ContinueCOVID isolationprecautions per [facility] protocol. Continue serial Ferritin, LDH, D-Dimer, CRP every 48h 01/20/2020. Inflammatory markers remain elevated with ferritin 1826, LDH 496, CRP 19.3, and d-dimer 2072. Patient requiring high flow nasal cannula 40L, FiO2 80%. Pulmonary following. Continue antibiotics and Plaquenil. Continue COVID isolationprecautions per [facility] protocol. Patient has a high risk mortality and remains guarded. 01/21/2020. Continue antibiotics and Plaquenil. Continue COVID isolationprecautions per [facility] protocol. Maintain sats of 88% and greater. Still on HFNC, O2 weaned to 95% overnight. Sats documented at 98%. Pulmonary following and reports If patient progresses could give bipap a one hour trial to see if there is improvement, repeat ABG, if not would suggest elective intubation 01/22/2020 Patient still critically ill. Yesterday 01/20 had cardiopulmonary arrest so now intubated in ICU. Prognosis guarded. 01/23/2020 still critically ill. No more fever. Continue vent management. 01/24/20 Still critically ill, remain on vent. Continue current management. Will call . 01/25/20 Patient still critically ill. I called Davis Ramsey and gave update. He wants DNR status and says he will request withdrawal of care if patient does not get better after weekend. I discussed with Mill Dresser. 01/26/20 patient still intubated, on vent. She means a DNR order. Discussed with Nurse 01/26 patient still critically ill, vent dependent. 01/27 patient still intubated, on vent. On levophed to keep MAP>65mmhg 01/29/2020 patient still intubated on mechanical ventilation. AC mode ventilation with rate 20, tidal volume 400, FiO2 45% and PEEP 12. patient with no fever. Patient currently with sedation of propofol. Patient received hemodialysis yesterday with approximately 3 L removed. 01/30/2020. Patient still on mechanical ventilation. AC mode ventilation with rate 20, tidal volume 400, FiO2 45% and PEEP 8. Patient with elevated alkaline phosphatase. Check abdominal ultrasound. 01/31/2020. Patient still on mechanical ventilation. PSV mode ventilation with FiO2 50% and PEEP 8 and PS=12. Follow-up abdominal ultrasound for elevated alkaline phosphatase 02/01/2020. Patient currently with PSV FiO2 50%, pressure support 12, PEEP 8. Continue PSV trials per pulmonary. Continue Levophed to maintain MAP greater than 65. Continue propofol for sedation. 02/02/2020. Patient currently on AC mode ventilation rate 20, tidal volume 450, FiO2 50% and PEEP of 6. ABG with pH of 7.31, PCO2 56.4, and PO2 85. Patient confirmed COVID-19 positive on 01/17/2020. Patient with MOSF and guarded progno sis. Follow-up abdominal ultrasound (ordered 3 days ago) for elevated alkaline phosphatase and fevers. 02/03/2020. Patient continues on mechanical ventilation AC mode with rate 20, tidal volume 450 and PEEP of 8. Patient still with temperature 100.5. Patient off sedation but requiring Levophed at 2 mics. Patient with an episode of hypoglycemia yesterday requiring D5 half-normal. Continue to monitor for hypoglycemia. Patient with MOSF and guarded prognosis. Follow-up abdominal ultrasound (ordered 4 days ago) for elevated alkaline phosphatase and fevers. 02/04/2020. Patient continues on mechanical ventilation AC mode with rate 20, tidal volume 450, FiO2 50% and PEEP of 8. Patient continues to have fevers. Patient currently on Levophed. Continue pressors to maintain map greater than 65. Hemoglobin 6.9-1 unit PRBCs ordered. Patient may be able to wean off of Levophed with volume resuscitation of PRBCs. Follow-up abdominal ultrasound (ordered 5 days ago) for elevated alkaline phosphatase and fevers. Patient's prognosis remains guarded. 02/05/2020 patient with covid-19 infection with acute resp failure, intubated, still on vent. Now off Levophed since 02/0302/06/2020 patient with Covid-19 infection. fever yesterday, none today. Continuje current management. Prognosis guarded. 02/07/2020 patient with Covid-19 infection. Still intubated, on vent. Ongoig fever. DNR code status. prognosis remains guarded. 02/08/2020 patient with Covid-19 infection. Still intubated. Ongoing weaning attempts. I called and gave update to , Mr. Davis Medina yesterday. 02/09/2020 patient with Covid-19. No fever X 48 hrs. Repeat covid-19 test negative. I discussed with yesterday 02/08/20. 02/10/2020 Patient with Covid-19. No more fever 02/11/2020 Patient with Covid 19 infection,still intubated, on vent. [facility]. 02/12/2020. Continue steroids for 7 days followed by taper per ID recommendations. Antibiotics completed. Patient will likely need trach and LTAC placement. 02/13/2020. I attempted to call her Davis Ramsey to follow-up with regards to consent for trach and PEG. No answer. Await decision in regards to further goals of care. I discussed the case with pulmonary. Continu e PSB trials. Continue hemodialysis per renal. 02/14/2020. Patient continues to remain on mechanical ventilation, AC mode with rate 20, tidal volume 450, FiO2 35% and PEEP of 6. I had a discussion with the spouse Davis Ramsey and he informed that he is willing to move forward with tracheostomy and PEG placement. I have called the surgeon to reevaluate. 02/15/2020. Patient for trach and PEG placement today. Postoperatively, patient remained stable, patient will be transferred to LTAC facility potentially tomorrow. 02/16/2020. Patient still on mechanical ventilation with AC mode, rate 20, tidal volume 450 and FiO2 30%. Patient will be transferred to select LTAC facility when bed available. 02/17/2020. Patient still on mechanical ventilation with AC mode, rate 20, tidal volume 450 and FiO2 30%. Patient will be transferred to select LTAC facility when bed available. The high probability of a clinically significant, sudden or life threatening deterioration of the [immunologic and respiratory] system(s) required my full and direct attention, intervention and personal management. The aggregate critical care time was [31] minutes. This time is in addition to time spent performing reported procedures but includes the following: [x] Data Review and interpretation [x] Patient assessment and monitoring of vital signs [x] Documentation [x] Medication orders and management - Patient Problems (1) Toxic metabolic encephalopathy Current Visit: Yes Status: Acute (2) ARDS (adult respiratory distress syndrome) Current Visit: Yes Status: Acute (3) Anemia in CKD (chronic kidney disease) Current Visit: Yes Status: Acute Qualifiers: Chronic kidney disease stage: on chronic dialysis Qualified Code(s): N18.6 - End stage renal disease; D63.1 - Anemia in chronic kidney disease; Z99.2 - Dependence on renal dialysis (4) Pneumonia due to COVID-19 virus Current Visit: Yes Status: Acute (5) Sepsis with hypotension Current Visit: Yes Status: Acute (6) T2DM (type 2 diabetes mellitus) Current Visit: Yes Status: Acute Qualifiers: Diabetes mellitus alf insulin use: 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 (7) Hypertension Current Visit: Yes Status: Chronic Qualifiers: Hypertension type: essential hypertension Qualified Code(s): I10 - Essential (primary) hypertension (8) Acute respiratory failure with hypoxia Current Visit: No Status: Acute (9) COPD exacerbation Current Visit: No Status: Acute (10) Elevated troponin Current Visit: No Status: Acute (11) Hyperkalemia Current Visit: No Status: Acute (12) Hyponatremia Current Visit: No Status: Acute (13) Type 2 diabetes mellitus with diabetic nephropathy Current Visit: No Status: Acute (14) End stage renal disease on dialysis Current Visit: No Status: Chronic (15) NSTEMI (non-ST elevated myocardial infarction) Current Visit: No Status: Chronic (16) T2DM (type 2 diabetes mellitus) Current Visit: No Status: Chronic Qualifiers: Diabetes mellitus alf insulin use: 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 Hospitalist Physical - Constitutional Vitals: Temp Pulse Resp BP Pulse Ox 98.6 F 102 H 15 136/58 100 02/17/20 08:00 02/17/20 09:00 02/17/20 09:00 02/17/20 09:00 02/17/20 09:00 General appearance: Present: no acute distress, well-nourished - EENT Eyes: Present: PERRL, EOM intact ENT: hearing intact, clear oral mucosa, dentition normal - Neck Neck: Present: supple, normal ROM - Respiratory Respiratory effort: normal Respiratory: bilateral: CTA - Cardiovascular Rhythm: regular Heart Sounds: Present: S1 & S2. Absent: gallop, rub - Extremities Extremities: no ischemia, No edema, Full ROM - Abdominal General gastrointestinal: soft, non-tender, non-distended, normal bowel sounds - Integumentary Integumentary: Present: clear, warm, dry - Neurologic Neurologic: CNII-XII intact, moves all extremities BREEZY score - Breezy Score Age > 65: (1) Yes Aspirin use within the Past 7 Days: (1) Yes 3 or more CAD Risk Factors: (1) Yes 2 or more Angina events in past 24 hrs: (1) Yes Known CAD with more than 50% Stenosis: (0) No Elevated Cardiac Markers: (0) No ST Deviation Greater than 0.5mm: (0) No BREEZY Score: 4 Results - Labs CBC & Chem 7: 02/15/20 04:58 02/15/20 04:58 Labs: Laboratory Last Values WBC 36.1 K/mm3 (4.5-11.0) H 02/15/20 04:58 RBC 3.53 M/mm3 (3.65-5.03) L 02/15/20 04:58 Hgb 10.2 gm/dl (10.1-14.3) 02/15/20 04:58 Hct 32.7 % (30.3-42.9) D 02/15/20 04:58 MCV 93 fl (79-97) 02/15/20 04:58 MCH 29 pg (28-32) 02/15/20 04:58 MCHC 31 % (30-34) 02/15/20 04:58 RDW 19.4 % (13.2-15.2) H 02/15/20 04:58 Plt Count 750 K/mm3 (140-440) H 02/15/20 04:58 Lymph % (Auto) Production Team Manager 02/03/20 03:59 [place] % (Auto) Production Team Manager 02/03/20 03:59 Eos % (Auto) Production Team Manager 02/03/20 03:59 Baso % (Auto) Production Team Manager 02/03/20 03:59 Lymph # Production Team Manager 02/03/20 03:59 [place] # Production Team Manager 02/03/20 03:59 Eos # Production Team Manager 02/03/20 03:59 Baso # Production Team Manager 02/03/20 03:59 Add Manual Diff Complete 02/05/20 04:35 Total Counted 100 02/05/20 04:35 Seg Neutrophils % Production Team Manager 02/05/20 04:35 Seg Neuts % (Manual) 96.0 % (40.0-70.0) H 02/05/20 04:35 Band Neutrophils % 0 % 02/05/20 04:35 Lymphocytes % (Manual) 1.0 % (13.4-35.0) L 02/05/20 04:35 Reactive Lymphs % (Man) 0 % 02/05/20 04:35 Monocytes % (Manual) 1.0 % (0.0-7.3) 02/05/20 04:35 Eosinophils % (Manual) 2.0 % (0.0-4.3) 02/05/20 04:35 Basophils % (Manual) 0 % (0.0-1.8) 02/05/20 04:35 Metamyelocytes % 0 % 02/05/20 04:35 Myelocytes % 0 % 02/05/20 04:35 Promyelocytes % 0 % 02/05/20 04:35 Blast Cells % 0 % 02/05/20 04:35 Nucleated RBC % Not Reportable 02/05/20 04:35 Seg Neutrophils # Production Team Manager 02/03/20 03:59 Seg Neutrophils # Man 23.4 K/mm3 (1.8-7.7) H 02/05/20 04:35 Band Neutrophils # 0.0 K/mm3 02/05/20 04:35 Lymphocytes # (Manual) 0.2 K/mm3 (1.2-5.4) L 02/05/20 04:35 Abs React Lymphs (Man) 0.0 K/mm3 02/05/20 04:35 Monocytes # (Manual) 0.2 K/mm3 (0.0-0.8) 02/05/20 04:35 Eosinophils # (Manual) 0.5 K/mm3 (0.0-0.4) H 02/05/20 04:35 Basophils # (Manual) 0.0 K/mm3 (0.0-0.1) 02/05/20 04:35 Metamyelocytes # 0.0 K/mm3 02/05/20 04:35 Myelocytes # 0.0 K/mm3 02/05/20 04:35 Promyelocytes # 0.0 K/mm3 02/05/20 04:35 Blast Cells # 0.0 K/mm3 02/05/20 04:35 WBC Morphology Not Reportable 02/05/20 04:35 Hypersegmented Neuts Not Reportable 02/05/20 04:35 Hyposegmented Neuts Not Reportable 02/05/20 04:35 Hypogranular Neuts Not Reportable 02/05/20 04:35 Smudge Cells Not Reportable 02/05/20 04:35 Toxic Granulation Not Reportable 02/05/20 04:35 Toxic Vacuolation Not Reportable 02/05/20 04:35 Dohle Bodies Not Reportable 02/05/20 04:35 Pelger-Huet Anomaly Not Reportable 02/05/20 04:35 Armando Rods Not Reportable 02/05/20 04:35 Platelet Estimate Consistent w auto 02/05/20 04:35 Clumped Platelets Not Reportable 02/05/20 04:35 Plt Clumps, EDTA Not Reportable 02/05/20 04:35 Large Platelets Not Reportable 02/05/20 04:35 Giant Platelets Not Reportable 02/05/20 04:35 Platelet Satelliting Not Reportable 02/05/20 04:35 Plt Morphology Comment Not Reportable 02/05/20 04:35 RBC Morphology Not Reportable 02/05/20 04:35 Dimorphic RBCs Not Reportable 02/05/20 04:35 Polychromasia Not Reportable 02/05/20 04:35 Hypochromasia Rare 02/05/20 04:35 Poikilocytosis Not Reportable 02/05/20 04:35 Anisocytosis Few 02/05/20 04:35 Microcytosis Not Reportable 02/05/20 04:35 Macrocytosis Rare 02/05/20 04:35 Spherocytes Not Reportable 02/05/20 04:35 Pappenheimer Bodies Not Reportable 02/05/20 04:35 Sickle Cells Not Reportable 02/05/20 04:35 Target Cells Not Reportable 02/05/20 04:35 Tear Drop Cells Not Reportable 02/05/20 04:35 Ovalocytes Not Reportable 02/05/20 04:35 Helmet Cells Not Reportable 02/05/20 04:35 Vu-[place] Bodies Not Reportable 02/05/20 04:35 Tyler Rings Not Reportable 02/05/20 04:35 Karen Cells Not Reportable 02/05/20 04:35 Bite Cells Not Reportable 02/05/20 04:35 Crenated Cell Not Reportable 02/05/20 04:35 Elliptocytes Not Reportable 02/05/20 04:35 Acanthocytes (Spur) Not Reportable 02/05/20 04:35 Rouleaux Not Reportable 02/05/20 04:35 Hemoglobin C Crystals Not Reportable 02/05/20 04:35 Schistocytes Not Reportable 02/05/20 04:35 Malaria parasites Not Reportable 02/05/20 04:35 Ney Bodies Not Reportable 02/05/20 04:35 Hem Pathologist Commnt No 02/05/20 04:35 PT 15.2 Sec. (12.2-14.9) H 02/15/20 04:58 INR 1.18 (0.87-1.13) H 02/15/20 04:58 APTT 31.5 Sec. (24.2-36.6) 01/09/20 12:55 D-Dimer 2896.73 ng/mlDDU (0-234) H 02/05/20 13:55 Heparin Anti-Xa Level 0.77 U.I./ml (0.3-0.7) H 02/02/20 05:44 ABG pH 7.351 pH Units (7.350-7.450) 02/08/20 20:45 ABG pCO2 58.7 mm Hg 02/08/20 20:45 ABG pO2 79.1 mm Hg (80.0-90.0) L 02/08/20 20:45 ABG HCO3 31.7 mmol/L (20.0-26.0) H 02/08/20 20:45 ABG O2 Saturation 95.6 % (95.0-99.0) 02/08/20 20:45 ABG O2 Content 17.0 (0.0-44) 02/08/20 20:45 ABG Base Excess 4.6 mmol/L (-2.0-3.0) H 02/08/20 20:45 ABG Hemoglobin 12.9 gm/dl (12.0-16.0) 02/08/20 20:45 ABG Carboxyhemoglobin 1.7 % (0.0-5.0) 02/08/20 20:45 ABG Methemoglobin 0.5 % (0.0-1.5) 02/08/20 20:45 Oxyhemoglobin 93.5 % (95.0-99.0) L 02/08/20 20:45 FiO2 40 % 02/08/20 20:45 Sodium 140 mmol/L (137-145) 02/15/20 04:58 Potassium 5.4 mmol/L (3.6-5.0) H 02/15/20 04:58 Chloride 94.5 mmol/L (98-107) L 02/15/20 04:58 Carbon Dioxide 25 mmol/L (22-30) 02/15/20 04:58 Anion Gap 26 mmol/L 02/15/20 04:58 BUN 102 mg/dL (7-17) H 02/15/20 04:58 Creatinine 3.1 mg/dL (0.7-1.2) H 02/15/20 04:58 Estimated GFR 18 ml/min 02/15/20 04:58 BUN/Creatinine Ratio 33 % 02/15/20 04:58 Glucose 87 mg/dL (65-100) 02/15/20 04:58 POC Glucose 176 (70-105) H 02/17/20 05:11 Hemoglobin A1c 5.0 % (4-6) 01/10/20 06:54 Calcium 9.6 mg/dL (8.4-10.2) 02/15/20 04:58 Phosphorus 3.30 mg/dL (2.5-4.5) 01/12/20 16:01 Magnesium 2.00 mg/dL (1.7-2.3) 01/13/20 06:11 Ferritin > 2000.0 ng/mL (13.0-400.0) H 02/05/20 13:55 Total Bilirubin 0.50 mg/dL (0.1-1.2) 02/02/20 05:44 Direct Bilirubin 0.3 mg/dL (0-0.2) H 02/02/20 05:44 Indirect Bilirubin 0.2 mg/dL 02/02/20 05:44 AST 179 units/L (5-40) H 02/02/20 05:44 ALT 106 units/L (7-56) H 02/02/20 05:44 Alkaline Phosphatase 557 units/L (35-129) H 02/02/20 05:44 Lactate Dehydrogenase 311 units/L (91-180) H 02/05/20 13:55 Troponin T 0.315 ng/mL (0.00-0.029) H* 01/10/20 06:54 C-Reactive Protein 17.30 mg/dL (0.00-1.30) H 02/05/20 13:55 NT-Pro-B Natriuret Pep 32153 pg/mL (0-900) H 01/09/20 12:55 Total Protein 6.1 g/dL (6.3-8.2) L 02/02/20 05:44 Albumin 2.3 g/dL (3.9-5) L 02/02/20 05:44 Albumin/Globulin Ratio 0.6 % 02/02/20 05:44 Triglycerides 56 mg/dL (2-149) 01/30/20 04:04 Cholesterol 123 mg/dL (50-199) 01/09/20 12:55 LDL Cholesterol Direct 66 mg/dL (50-130) 01/09/20 12:55 HDL Cholesterol 47 mg/dL (40-59) 01/09/20 12:55 Cholesterol/HDL Ratio 2.61 % 01/09/20 12:55 Random Vancomycin 23.9 ug/mL (0-40.0) 02/08/20 04:56 Coronavirus (PCR) Negative (Negative) 02/08/20 10:06 Hepatitis A IgM Ab Non-reactive (NonReactive) 01/21/20 23:40 Hep Bs Antigen Non-reactive (Negative) 01/21/20 23:40 Hep B Core IgM Ab Non-reactive (NonReactive) 01/21/20 23:40 Hepatitis C Antibody Non-reactive (NonReactive) 01/21/20 23:40 Miscellaneous Test See scanned result 01/11/20 Unknown Miscellaneous Test See scanned result 01/11/20 Unknown Blood Type O POSITIVE 02/04/20 10:47 Antibody Screen Negative 02/04/20 10:47 Crossmatch See Detail 02/04/20 10:47 Pleitez/IV: Voiding Method Indwelling Catheter IV Catheter Type [Left Chest] Infusaport IV Catheter Type [Right Peripheral IV External Jugular] IV Catheter Type [Left INT / Saline Lock External Jugular] IV Catheter Type [Left Upper AV Graft arm] Active Medications - Current Medications Current Medications: Generic Name Dose Route Start Last Admin Trade Name Freq PRN Reason Stop Dose Admin Acetaminophen 650 mg 01/09/20 16:33 02/05/20 05:58 Tylenol PO 650 mg Q4H PRN Administration Pain MILD(1-3)/Fever >100.5/MEANS Lipase/Protease/Amylase 1 each 01/23/20 14:28 02/07/20 13:[address] 10,500 Unit FEEDTUBE 1 each PRN PRN Administration For Clogged Feeding Tube Atorvastatin Calcium 40 mg 01/09/20 22:00 02/16/20 23:46 Lipitor PO 40 mg QHS PHILLY Administration Dextrose 50 ml 01/23/20 07:26 02/16/20 06:03 D50w (25gm) Syringe IV 50 ml Q30MIN PRN Administration BLOOD GLUCOSE < 70 Dextrose 25 ml 01/24/20 08:58 01/24/20 13:41 D50w (25gm) Syringe IV 25 ml Q4H PRN Administration BG < 80 MG/DL Docusate Sodium 100 mg 01/25/20 22:00 02/17/20 09:50 Colace PO 100 mg BID PHILLY Administration Epoetin Helio 20,000 unit 02/04/20 12:00 02/04/20 13:00 Procrit SUB-Q 20,000 unit SILVERIO PHILLY Administration Famotidine 20 mg 01/09/20 22:00 02/17/20 09:50 Pepcid PO 20 mg DAILY PHILLY Administration Heparin Sodium (Porcine) 5,000 unit 02/07/20 10:00 02/17/20 09:50 Heparin SUB-Q 5,000 unit Q12HR PHILLY Administration Norepinephrine 4 mg in 250 mls @ 7.5 mls/hr 01/21/20 18:00 02/11/20 15:00 Levophed Drip 4 Mg/Ns 250 Ml IV 0 mcg/min TITR PHILLY 0 mls/hr Titration Protocol 2 MCG/MIN Sodium Chloride 100 mls @ 999 mls/hr 02/12/20 08:17 Nacl 0.9% IV SILEVRIO PRN Hypotension Sodium Chloride 1,000 mls @ 50 mls/hr 02/15/20 08:00 Nacl 0.9% 1000 Ml IV DIRECT PHILLY Insulin Glargine 15 units 02/10/20 13:00 02/17/20 09:50 Lantus SUB-Q 15 units DAILY PHILLY Administration Insulin Human Lispro 0 unit 02/07/20 12:00 02/17/20 05:30 Humalog SUB-Q 2 unit Q6HR PHILLY Administration Protocol Lorazepam 2 mg 01/23/20 15:36 Ativan IV Q10MIN PRN Agitation Methylprednisolone Sodium Succinate 20 mg 02/14/20 14:00 02/17/20 05:31 Solu-Medrol IV 20 mg Q8HR PHILLY Administration Ondansetron HCl 4 mg 01/09/20 16:33 01/20/20 10:19 Zofran IV 4 mg Q8H PRN Administration Nausea And Vomiting Simple Syrup 15 ml 01/23/20 14:28 02/14/20 12:02 Simple Syrup FEEDTUBE 15 ml PRN PRN Administration Hypoglycemia Simple Syrup 30 ml 01/23/20 14:28 Simple Syrup FEEDTUBE PRN PRN Hypoglycemia Sodium Bicarbonate 325 mg 01/23/20 14:28 Sodium Bicarbonate FEEDTUBE PRN PRN For Clogged Feeding Tube Sodium Chloride 10 ml 01/09/20 22:00 02/16/20 23:07 Sodium Chloride Flush Syringe 10 Ml IV 10 ml BID PHILLY Administration Sodium Chloride 10 ml 01/09/20 16:33 Sodium Chloride Flush Syringe 10 Ml IV PRN PRN LINE FLUSH Nutrition/Malnutrition Assess - Dietary Evaluation Nutrition/Malnutrition Findings: Nutrition Notes Start: 01/17/20 13:49 Freq: Status: Active Protocol: Document 02/15/20 09:22 LP (Rec: 02/15/20 09:24 LP [email or web address]) Nutrition Notes Initial or Follow up Brief Note Current Diagnosis CKD (stage V CKD),Diabetes, Hypertension,Heart Failure, Respiratory Failure Other Pertinent Diagnosis on HD, Bilat pneu, COVID-19 (+ ) Current Diet NPO Weight Status Appropriate Subjective/Other Information Pt NPO for trach and PEG. Nutrition Intervention Follow-Up By: 02/18/20 Additional Comments Follow for TF restart
--- NOTE | 2020-02-17 11:39 | Progress Note ---
Assessment and Plan Assessment and Plan 64 y/o female with COVID positive, viral pneumonia with some pulmonary vascular congestion superimposed. 1. Patient to be trached and pegged yesterday. Continue weaning trials 24 hours post surgery. Wea FiO2 as tolerated. 2. HD per renal. 3. In regards to steroids. Changed to 20q8 on 02/14/2020/ Would continue this dose for a week (7 days) then switch to 40 PO daily for 4 days, then 20 PO daily for 4 days, then 10 PO daily for 4 days then stop. 4. Continue isolation for now. Reviewed ID note and they suggest stopping after weeks. Need to clarifiy is this 4 weeks from initial diagnosis or 4 weeks from negative test. 5. [facility] This could happen over the weekend. 6. Continue with CPAP trials as tolerated Total CCT 31 min Subjective Date of service: 02/17/20 Principal diagnosis: Pneumonia Interval history: No new complaints. Post trach/PEG. Remained on vent. On CPAP with pressure support of 14. Tolerated well for few hours. Respiratory rate is slightly high to mid 30s Objective Vital Signs - 12hr 02/17/20 02/17/20 02/17/20 00:00 00:32 01:00 Temperature 99.4 F Pulse Rate 105 H 101 H 104 H Pulse Rate [ 102 H From Monitor] Respiratory 26 H 17 Rate Blood Pressure 110/61 131/68 131/68 O2 Sat by Pulse 100 98 100 Oximetry O2 Sat by Pulse Oximetry [ Assessment] 02/17/20 02/17/20 02/17/20 02:00 03:00 04:00 Temperature 99.1 F Pulse Rate 106 H 104 H 101 H Pulse Rate [ 99 H From Monitor] Respiratory 21 21 21 Rate Blood Pressure 141/68 123/57 115/55 O2 Sat by Pulse 100 100 100 Oximetry O2 Sat by Pulse Oximetry [ Assessment] 02/17/20 02/17/20 02/17/20 05:00 05:10 06:00 Temperature Pulse Rate 99 H 97 H 94 H Pulse Rate [ From Monitor] Respiratory 17 23 Rate Blood Pressure 123/55 123/55 121/59 O2 Sat by Pulse 100 100 100 Oximetry O2 Sat by Pulse 100 Oximetry [ Assessment] 02/17/20 02/17/20 02/17/20 07:00 08:00 08:05 Temperature 98.6 F Pulse Rate 95 H 95 H 94 H Pulse Rate [ From Monitor] Respiratory 20 22 Rate Blood Pressure 124/63 136/59 136/59 O2 Sat by Pulse 100 100 100 Oximetry O2 Sat by Pulse Oximetry [ Assessment] 02/17/20 02/17/20 02/17/20 08:15 09:00 10:00 Temperature Pulse Rate 99 H 102 H 95 H Pulse Rate [ From Monitor] Respiratory 23 15 23 Rate Blood Pressure 152/68 136/58 136/58 O2 Sat by Pulse 100 100 100 Oximetry O2 Sat by Pulse Oximetry [ Assessment] 02/17/20 11:00 Temperature Pulse Rate 99 H Pulse Rate [ From Monitor] Respiratory 22 Rate Blood Pressure 160/64 O2 Sat by Pulse 100 Oximetry O2 Sat by Pulse Oximetry [ Assessment] Constitutional: other (orally intubated, not sedated currently on vent. on AC 450 50) Eyes: non-icteric ENT: oropharynx moist Neck: supple Effort: normal Ascultation: Bilateral: rales Cardiovascular: regular rate and rhythm (no mrg) Gastrointestinal: normoactive bowel sounds, soft, non-tender, non-distended Integumentary: normal Extremities: no cyanosis, no edema, pink and warm Neurologic: unable to assess Psychiatric: mood appropriate, affect normal CBC and BMP: 02/15/20 04:58 02/15/20 04:58 ABG, PT/INR, D-dimer: ABG ABG pH 7.351 pH Units (7.350-7.450) 02/08/20 20:45 ABG pCO2 58.7 mm Hg 02/08/20 20:45 ABG pO2 79.1 mm Hg (80.0-90.0) L 02/08/20 20:45 ABG O2 Saturation 95.6 % (95.0-99.0) 02/08/20 20:45 PT/INR, D-dimer PT 15.2 Sec. (12.2-14.9) H 02/15/20 04:58 INR 1.18 (0.87-1.13) H 02/15/20 04:58 D-Dimer 2896.73 ng/mlDDU (0-234) H 02/05/20 13:55 Abnormal lab findings: Abnormal Labs 01/09/20 01/09/20 01/09/20 12:55 12:55 12:55 WBC 4.4 L RBC 3.44 L Hgb Hct MCV RDW 17.0 H Plt Count Lymph % (Auto) 6.8 L [place] % (Auto) 13.6 H Lymph # 0.3 L Seg Neutrophils % 79.0 H Seg Neuts % (Manual) Lymphocytes % (Manual) Nucleated RBC % Seg Neutrophils # Man Lymphocytes # (Manual) Monocytes # (Manual) Eosinophils # (Manual) PT 15.6 H INR 1.22 H D-Dimer Heparin Anti-Xa Level ABG pH ABG pO2 ABG HCO3 ABG O2 Saturation ABG Base Excess ABG Hemoglobin Oxyhemoglobin Sodium 130 L Potassium Chloride 88.9 L Carbon Dioxide 20 L BUN 41 H Creatinine 7.6 H Glucose 115 H POC Glucose Calcium Magnesium Ferritin Direct Bilirubin AST ALT Alkaline Phosphatase 153 H Lactate Dehydrogenase Troponin T 0.382 H* C-Reactive Protein NT-Pro-B Natriuret Pep 98677 H Total Protein Albumin 3.2 L Crossmatch 01/09/20 01/10/20 01/10/20 20:14 00:16 06:54 WBC 3.3 L RBC 3.00 L Hgb 9.2 L Hct 27.8 L MCV RDW 17.2 H Plt Count Lymph % (Auto) 8.9 L [place] % (Auto) 11.5 H Lymph # 0.3 L Seg Neutrophils % 79.1 H Seg Neuts % (Manual) Lymphocytes % (Manual) Nucleated RBC % Seg Neutrophils # Man Lymphocytes # (Manual) Monocytes # (Manual) Eosinophils # (Manual) PT INR D-Dimer Heparin Anti-Xa Level ABG pH ABG pO2 ABG HCO3 ABG O2 Saturation ABG Base Excess ABG Hemoglobin Oxyhemoglobin Sodium Potassium Chloride Carbon Dioxide BUN Creatinine Glucose POC Glucose Calcium Magnesium Ferritin Direct Bilirubin AST ALT Alkaline Phosphatase Lactate Dehydrogenase Troponin T 0.349 H* 0.328 H* C-Reactive Protein NT-Pro-B Natriuret Pep Total Protein Albumin Crossmatch 01/10/20 01/10/20 01/11/20 06:54 06:54 16:45 WBC RBC Hgb Hct MCV RDW Plt Count Lymph % (Auto) [place] % (Auto) Lymph # Seg Neutrophils % Seg Neuts % (Manual) Lymphocytes % (Manual) Nucleated RBC % Seg Neutrophils # Man Lymphocytes # (Manual) Monocytes # (Manual) Eosinophils # (Manual) PT INR D-Dimer Heparin Anti-Xa Level ABG pH ABG pO2 ABG HCO3 ABG O2 Saturation ABG Base Excess ABG Hemoglobin Oxyhemoglobin Sodium 133 L Potassium Chloride 90.6 L Carbon Dioxide BUN 50 H Creatinine 8.4 H Glucose 101 H POC Glucose 106 H Calcium 8.1 L Magnesium Ferritin Direct Bilirubin AST ALT Alkaline Phosphatase 148 H Lactate Dehydrogenase Troponin T 0.315 H* C-Reactive Protein NT-Pro-B Natriuret Pep Total Protein 5.4 L Albumin 2.7 L Crossmatch 01/12/20 01/13/20 01/13/20 16:01 06:11 06:11 WBC 3.1 L RBC 3.25 L Hgb 9.8 L Hct MCV RDW 17.2 H Plt Count 136 L Lymph % (Auto) [place] % (Auto) Lymph # Seg Neutrophils % Seg Neuts % (Manual) Lymphocytes % (Manual) Nucleated RBC % Seg Neutrophils # Man Lymphocytes # (Manual) Monocytes # (Manual) Eosinophils # (Manual) PT INR D-Dimer Heparin Anti-Xa Level ABG pH ABG pO2 ABG HCO3 ABG O2 Saturation ABG Base Excess ABG Hemoglobin Oxyhemoglobin Sodium 135 L Potassium Chloride 93.4 L Carbon Dioxide BUN 19 H Creatinine 4.5 H Glucose 120 H POC Glucose Calcium 7.8 L Magnesium 1.40 L Ferritin Direct Bilirubin AST ALT Alkaline Phosphatase Lactate Dehydrogenase Troponin T C-Reactive Protein NT-Pro-B Natriuret Pep Total Protein Albumin Crossmatch 01/16/20 01/16/20 01/16/20 08:35 11:49 14:11 WBC RBC Hgb Hct MCV RDW Plt Count Lymph % (Auto) [place] % (Auto) Lymph # Seg Neutrophils % Seg Neuts % (Manual) Lymphocytes % (Manual) Nucleated RBC % Seg Neutrophils # Man Lymphocytes # (Manual) Monocytes # (Manual) Eosinophils # (Manual) PT INR D-Dimer Heparin Anti-Xa Level ABG pH ABG pO2 48.4 L ABG HCO3 30.5 H ABG O2 Saturation 81.9 L ABG Base Excess 4.6 H ABG Hemoglobin 10.5 L Oxyhemoglobin 80.1 L Sodium Potassium Chloride Carbon Dioxide BUN Creatinine Glucose POC Glucose 126 H 119 H Calcium Magnesium Ferritin Direct Bilirubin AST ALT Alkaline Phosphatase Lactate Dehydrogenase Troponin T C-Reactive Protein NT-Pro-B Natriuret Pep Total Protein Albumin Crossmatch 01/16/20 01/16/20 01/16/20 15:38 15:38 15:38 WBC RBC Hgb Hct MCV RDW Plt Count Lymph % (Auto) [place] % (Auto) Lymph # Seg Neutrophils % Seg Neuts % (Manual) Lymphocytes % (Manual) Nucleated RBC % Seg Neutrophils # Man Lymphocytes # (Manual) Monocytes # (Manual) Eosinophils # (Manual) PT INR D-Dimer 1104.64 H Heparin Anti-Xa Level ABG pH ABG pO2 ABG HCO3 ABG O2 Saturation ABG Base Excess ABG Hemoglobin Oxyhemoglobin Sodium Potassium Chloride Carbon Dioxide BUN Creatinine Glucose POC Glucose Calcium Magnesium Ferritin > 2000.0 H Direct Bilirubin AST ALT Alkaline Phosphatase Lactate Dehydrogenase 690 H Troponin T C-Reactive Protein 24.10 H NT-Pro-B Natriuret Pep Total Protein Albumin Crossmatch 01/16/20 01/18/20 01/18/20 18:11 06:25 06:25 WBC RBC 3.15 L Hgb 9.4 L Hct 29.4 L MCV RDW 17.5 H Plt Count 135 L Lymph % (Auto) 3.8 L [place] % (Auto) Lymph # 0.2 L Seg Neutrophils % 88.8 H Seg Neuts % (Manual) Lymphocytes % (Manual) Nucleated RBC % Seg Neutrophils # Man Lymphocytes # (Manual) Monocytes # (Manual) Eosinophils # (Manual) PT INR D-Dimer Heparin Anti-Xa Level ABG pH ABG pO2 ABG HCO3 ABG O2 Saturation ABG Base Excess ABG Hemoglobin Oxyhemoglobin Sodium Potassium Chloride 96.8 L Carbon Dioxide BUN 26 H Creatinine 4.2 H Glucose 115 H POC Glucose 130 H Calcium 8.2 L Magnesium Ferritin Direct Bilirubin AST ALT Alkaline Phosphatase Lactate Dehydrogenase 537 H Troponin T C-Reactive Protein 17.10 H NT-Pro-B Natriuret Pep Total Protein Albumin Crossmatch 01/18/20 01/18/20 01/18/20 06:25 06:25 12:15 WBC RBC Hgb Hct MCV RDW Plt Count Lymph % (Auto) [place] % (Auto) Lymph # Seg Neutrophils % Seg Neuts % (Manual) Lymphocytes % (Manual) Nucleated RBC % Seg Neutrophils # Man Lymphocytes # (Manual) Monocytes # (Manual) Eosinophils # (Manual) PT INR D-Dimer 938.03 H Heparin Anti-Xa Level ABG pH ABG pO2 66.5 L ABG HCO3 30.1 H ABG O2 Saturation 93.2 L ABG Base Excess 4.6 H ABG Hemoglobin 10.0 L Oxyhemoglobin 91.3 L Sodium Potassium Chloride Carbon Dioxide BUN Creatinine Glucose POC Glucose Calcium Magnesium Ferritin 3105.0 H Direct Bilirubin AST ALT Alkaline Phosphatase Lactate Dehydrogenase Troponin T C-Reactive Protein NT-Pro-B Natriuret Pep Total Protein Albumin Crossmatch 01/20/20 01/20/20 01/20/20 07:37 07:37 07:37 WBC RBC Hgb Hct MCV RDW Plt Count Lymph % (Auto) [place] % (Auto) Lymph # Seg Neutrophils % Seg Neuts % (Manual) Lymphocytes % (Manual) Nucleated RBC % Seg Neutrophils # Man Lymphocytes # (Manual) Monocytes # (Manual) Eosinophils # (Manual) PT INR D-Dimer 2072.25 H Heparin Anti-Xa Level ABG pH ABG pO2 ABG HCO3 ABG O2 Saturation ABG Base Excess ABG Hemoglobin Oxyhemoglobin Sodium Potassium Chloride Carbon Dioxide BUN Creatinine Glucose POC Glucose Calcium Magnesium Ferritin 1826.0 H Direct Bilirubin AST ALT Alkaline Phosphatase Lactate Dehydrogenase 496 H Troponin T C-Reactive Protein 19.30 H NT-Pro-B Natriuret Pep Total Protein Albumin Crossmatch 01/20/20 01/21/20 01/21/20 17:30 03:59 17:35 WBC RBC Hgb Hct MCV RDW Plt Count Lymph % (Auto) [place] % (Auto) Lymph # Seg Neutrophils % Seg Neuts % (Manual) Lymphocytes % (Manual) Nucleated RBC % Seg Neutrophils # Man Lymphocytes # (Manual) Monocytes # (Manual) Eosinophils # (Manual) PT INR D-Dimer Heparin Anti-Xa Level ABG pH ABG pO2 61.1 L 67.4 L ABG HCO3 29.9 H 26.2 H ABG O2 Saturation 91.7 L 93.4 L ABG Base Excess 4.9 H ABG Hemoglobin 9.0 L 9.1 L Oxyhemoglobin 89.5 L 91.1 L Sodium 136 L Potassium Chloride Carbon Dioxide BUN 36 H Creatinine 4.9 H Glucose POC Glucose Calcium Magnesium Ferritin Direct Bilirubin AST ALT Alkaline Phosphatase Lactate Dehydrogenase Troponin T C-Reactive Protein NT-Pro-B Natriuret Pep Total Protein Albumin Crossmatch 01/21/20 01/22/20 01/22/20 Unknown 03:41 03:41 WBC RBC Hgb Hct MCV RDW Plt Count Lymph % (Auto) [place] % (Auto) Lymph # Seg Neutrophils % Seg Neuts % (Manual) Lymphocytes % (Manual) Nucleated RBC % Seg Neutrophils # Man Lymphocytes # (Manual) Monocytes # (Manual) Eosinophils # (Manual) PT INR D-Dimer Heparin Anti-Xa Level ABG pH 7.465 H ABG pO2 48.9 L ABG HCO3 26.6 H ABG O2 Saturation 85.7 L ABG Base Excess ABG Hemoglobin 10.4 L Oxyhemoglobin 83.5 L Sodium Potassium Chloride Carbon Dioxide BUN Creatinine Glucose POC Glucose Calcium Magnesium Ferritin 6071.0 H Direct Bilirubin AST ALT Alkaline Phosphatase Lactate Dehydrogenase 963 H Troponin T C-Reactive Protein 30.00 H NT-Pro-B Natriuret Pep Total Protein Albumin Crossmatch 01/22/20 01/22/20 01/22/20 03:41 07:47 11:20 WBC RBC Hgb Hct MCV RDW Plt Count Lymph % (Auto) [place] % (Auto) Lymph # Seg Neutrophils % Seg Neuts % (Manual) Lymphocytes % (Manual) Nucleated RBC % Seg Neutrophils # Man Lymphocytes # (Manual) Monocytes # (Manual) Eosinophils # (Manual) PT INR D-Dimer > 63707 H Heparin Anti-Xa Level ABG pH ABG pO2 66.7 L ABG HCO3 28.7 H ABG O2 Saturation 91.9 L ABG Base Excess ABG Hemoglobin 9.1 L Oxyhemoglobin 89.5 L Sodium Potassium Chloride 94.3 L Carbon Dioxide BUN 53 H Creatinine 6.5 H Glucose POC Glucose Calcium Magnesium Ferritin Direct Bilirubin AST ALT Alkaline Phosphatase Lactate Dehydrogenase Troponin T C-Reactive Protein NT-Pro-B Natriuret Pep Total Protein Albumin Crossmatch 01/22/20 01/22/20 01/23/20 11:49 Unknown 04:55 WBC 15.1 H RBC 3.05 L Hgb 8.8 L Hct 28.3 L MCV RDW 17.8 H Plt Count 125 L Lymph % (Auto) [place] % (Auto) Lymph # Seg Neutrophils % Seg Neuts % (Manual) Lymphocytes % (Manual) Nucleated RBC % Seg Neutrophils # Man Lymphocytes # (Manual) Monocytes # (Manual) Eosinophils # (Manual) PT INR D-Dimer Heparin Anti-Xa Level ABG pH 7.340 L ABG pO2 77.7 L 136.3 H ABG HCO3 27.6 H 28.8 H ABG O2 Saturation ABG Base Excess ABG Hemoglobin 9.3 L 10.9 L Oxyhemoglobin 94.2 L Sodium Potassium Chloride Carbon Dioxide BUN Creatinine Glucose POC Glucose Calcium Magnesium Ferritin Direct Bilirubin AST ALT Alkaline Phosphatase Lactate Dehydrogenase Troponin T C-Reactive Protein NT-Pro-B Natriuret Pep Total Protein Albumin Crossmatch 01/23/20 01/23/20 01/23/20 06:23 07:07 12:23 WBC RBC Hgb Hct MCV RDW Plt Count Lymph % (Auto) [place] % (Auto) Lymph # Seg Neutrophils % Seg Neuts % (Manual) Lymphocytes % (Manual) Nucleated RBC % Seg Neutrophils # Man Lymphocytes # (Manual) Monocytes # (Manual) Eosinophils # (Manual) PT INR D-Dimer Heparin Anti-Xa Level ABG pH ABG pO2 ABG HCO3 ABG O2 Saturation ABG Base Excess ABG Hemoglobin Oxyhemoglobin Sodium Potassium Chloride Carbon Dioxide BUN Creatinine Glucose POC Glucose 57 L 127 H 131 H Calcium Magnesium Ferritin Direct Bilirubin AST ALT Alkaline Phosphatase Lactate Dehydrogenase Troponin T C-Reactive Protein NT-Pro-B Natriuret Pep Total Protein Albumin Crossmatch 01/23/20 01/23/20 01/24/20 Unknown Unknown 04:00 WBC 16.2 H RBC 3.08 L Hgb 8.9 L Hct 28.6 L MCV RDW 17.8 H Plt Count 139 L Lymph % (Auto) [place] % (Auto) Lymph # Seg Neutrophils % Seg Neuts % (Manual) Lymphocytes % (Manual) Nucleated RBC % Seg Neutrophils # Man Lymphocytes # (Manual) Monocytes # (Manual) Eosinophils # (Manual) PT INR D-Dimer Heparin Anti-Xa Level < 0.10 L ABG pH ABG pO2 ABG HCO3 ABG O2 Saturation ABG Base Excess ABG Hemoglobin Oxyhemoglobin Sodium Potassium Chloride Carbon Dioxide BUN Creatinine Glucose POC Glucose Calcium Magnesium Ferritin 4195.0 H Direct Bilirubin AST ALT Alkaline Phosphatase Lactate Dehydrogenase Troponin T C-Reactive Protein NT-Pro-B Natriuret Pep Total Protein Albumin Crossmatch 01/24/20 01/24/20 01/24/20 04:00 04:00 04:00 WBC RBC Hgb Hct MCV RDW Plt Count Lymph % (Auto) [place] % (Auto) Lymph # Seg Neutrophils % Seg Neuts % (Manual) Lymphocytes % (Manual) Nucleated RBC % Seg Neutrophils # Man Lymphocytes # (Manual) Monocytes # (Manual) Eosinophils # (Manual) PT INR D-Dimer 5783.11 H Heparin Anti-Xa Level ABG pH 7.188 L* ABG pO2 70.8 L ABG HCO3 32.2 H ABG O2 Saturation 90.4 L ABG Base Excess ABG Hemoglobin 8.5 L Oxyhemoglobin 88.1 L Sodium Potassium Chloride Carbon Dioxide BUN Creatinine Glucose POC Glucose Calcium Magnesium Ferritin Direct Bilirubin AST ALT Alkaline Phosphatase Lactate Dehydrogenase 474 H Troponin T C-Reactive Protein 29.80 H NT-Pro-B Natriuret Pep Total Protein Albumin Crossmatch 01/24/20 01/24/20 01/24/20 05:20 05:51 09:14 WBC RBC Hgb Hct MCV RDW Plt Count Lymph % (Auto) [place] % (Auto) Lymph # Seg Neutrophils % Seg Neuts % (Manual) Lymphocytes % (Manual) Nucleated RBC % Seg Neutrophils # Man Lymphocytes # (Manual) Monocytes # (Manual) Eosinophils # (Manual) PT INR D-Dimer Heparin Anti-Xa Level ABG pH 7.214 L ABG pO2 71.7 L ABG HCO3 31.5 H ABG O2 Saturation 91.8 L ABG Base Excess ABG Hemoglobin 9.1 L Oxyhemoglobin 89.3 L Sodium Potassium Chloride Carbon Dioxide BUN Creatinine Glucose POC Glucose 50 L 53 L Calcium Magnesium Ferritin Direct Bilirubin AST ALT Alkaline Phosphatase Lactate Dehydrogenase Troponin T C-Reactive Protein NT-Pro-B Natriuret Pep Total Protein Albumin Crossmatch 01/24/20 01/24/20 01/24/20 15:10 18:04 21:10 WBC RBC Hgb Hct MCV RDW Plt Count Lymph % (Auto) [place] % (Auto) Lymph # Seg Neutrophils % Seg Neuts % (Manual) Lymphocytes % (Manual) Nucleated RBC % Seg Neutrophils # Man Lymphocytes # (Manual) Monocytes # (Manual) Eosinophils # (Manual) PT INR D-Dimer Heparin Anti-Xa Level ABG pH ABG pO2 ABG HCO3 ABG O2 Saturation ABG Base Excess ABG Hemoglobin Oxyhemoglobin Sodium Potassium Chloride Carbon Dioxide BUN Creatinine Glucose POC Glucose 114 H 51 L 144 H Calcium Magnesium Ferritin Direct Bilirubin AST ALT Alkaline Phosphatase Lactate Dehydrogenase Troponin T C-Reactive Protein NT-Pro-B Natriuret Pep Total Protein Albumin Crossmatch 01/24/20 01/25/20 01/25/20 Unknown 00:32 03:50 WBC 13.0 H RBC 3.10 L Hgb 9.2 L Hct 29.0 L MCV RDW 17.7 H Plt Count Lymph % (Auto) [place] % (Auto) Lymph # Seg Neutrophils % Seg Neuts % (Manual) 92.0 H Lymphocytes % (Manual) 5.0 L Nucleated RBC % Seg Neutrophils # Man 12.0 H Lymphocytes # (Manual) 0.7 L Monocytes # (Manual) Eosinophils # (Manual) PT INR D-Dimer Heparin Anti-Xa Level ABG pH 7.291 L ABG pO2 71.3 L ABG HCO3 30.6 H ABG O2 Saturation 93.6 L ABG Base Excess 3.3 H ABG Hemoglobin 8.1 L Oxyhemoglobin 91.2 L Sodium Potassium Chloride Carbon Dioxide BUN Creatinine Glucose POC Glucose 114 H Calcium Magnesium Ferritin Direct Bilirubin AST ALT Alkaline Phosphatase Lactate Dehydrogenase Troponin T C-Reactive Protein NT-Pro-B Natriuret Pep Total Protein Albumin Crossmatch 01/25/20 01/25/20 01/25/20 04:22 06:05 17:28 WBC RBC Hgb Hct MCV RDW Plt Count Lymph % (Auto) [place] % (Auto) Lymph # Seg Neutrophils % Seg Neuts % (Manual) Lymphocytes % (Manual) Nucleated RBC % Seg Neutrophils # Man Lymphocytes # (Manual) Monocytes # (Manual) Eosinophils # (Manual) PT INR D-Dimer Heparin Anti-Xa Level ABG pH 7.304 L ABG pO2 69.5 L ABG HCO3 29.7 H ABG O2 Saturation 93.2 L ABG Base Excess ABG Hemoglobin 8.7 L Oxyhemoglobin 90.7 L Sodium Potassium Chloride Carbon Dioxide BUN Creatinine Glucose POC Glucose 136 H 127 H Calcium Magnesium Ferritin Direct Bilirubin AST ALT Alkaline Phosphatase Lactate Dehydrogenase Troponin T C-Reactive Protein NT-Pro-B Natriuret Pep Total Protein Albumin Crossmatch 01/26/20 01/26/20 01/26/20 00:20 02:31 02:31 WBC RBC Hgb Hct MCV RDW Plt Count Lymph % (Auto) [place] % (Auto) Lymph # Seg Neutrophils % Seg Neuts % (Manual) Lymphocytes % (Manual) Nucleated RBC % Seg Neutrophils # Man Lymphocytes # (Manual) Monocytes # (Manual) Eosinophils # (Manual) PT INR D-Dimer Heparin Anti-Xa Level ABG pH ABG pO2 ABG HCO3 ABG O2 Saturation ABG Base Excess ABG Hemoglobin Oxyhemoglobin Sodium Potassium Chloride Carbon Dioxide BUN Creatinine Glucose POC Glucose 127 H Calcium Magnesium Ferritin 3764.0 H Direct Bilirubin AST ALT Alkaline Phosphatase Lactate Dehydrogenase 393 H Troponin T C-Reactive Protein 28.60 H NT-Pro-B Natriuret Pep Total Protein Albumin Crossmatch 01/26/20 01/26/20 01/26/20 02:31 04:45 05:24 WBC RBC Hgb Hct MCV RDW Plt Count Lymph % (Auto) [place] % (Auto) Lymph # Seg Neutrophils % Seg Neuts % (Manual) Lymphocytes % (Manual) Nucleated RBC % Seg Neutrophils # Man Lymphocytes # (Manual) Monocytes # (Manual) Eosinophils # (Manual) PT INR D-Dimer 3828.76 H Heparin Anti-Xa Level ABG pH ABG pO2 ABG HCO3 30.8 H ABG O2 Saturation ABG Base Excess 4.9 H ABG Hemoglobin 7.4 L Oxyhemoglobin 94.6 L Sodium Potassium Chloride Carbon Dioxide BUN Creatinine Glucose POC Glucose 121 H Calcium Magnesium Ferritin Direct Bilirubin AST ALT Alkaline Phosphatase Lactate Dehydrogenase Troponin T C-Reactive Protein NT-Pro-B Natriuret Pep Total Protein Albumin Crossmatch 01/26/20 01/26/20 01/26/20 10:40 12:36 18:10 WBC RBC Hgb Hct MCV RDW Plt Count Lymph % (Auto) [place] % (Auto) Lymph # Seg Neutrophils % Seg Neuts % (Manual) Lymphocytes % (Manual) Nucleated RBC % Seg Neutrophils # Man Lymphocytes # (Manual) Monocytes # (Manual) Eosinophils # (Manual) PT INR D-Dimer Heparin Anti-Xa Level ABG pH ABG pO2 ABG HCO3 ABG O2 Saturation ABG Base Excess ABG Hemoglobin Oxyhemoglobin Sodium Potassium Chloride Carbon Dioxide BUN Creatinine Glucose POC Glucose 119 H 126 H 159 H Calcium Magnesium Ferritin Direct Bilirubin AST ALT Alkaline Phosphatase Lactate Dehydrogenase Troponin T C-Reactive Protein NT-Pro-B Natriuret Pep Total Protein Albumin Crossmatch 01/27/20 01/27/20 01/27/20 03:45 06:15 12:19 WBC RBC Hgb Hct MCV RDW Plt Count Lymph % (Auto) [place] % (Auto) Lymph # Seg Neutrophils % Seg Neuts % (Manual) Lymphocytes % (Manual) Nucleated RBC % Seg Neutrophils # Man Lymphocytes # (Manual) Monocytes # (Manual) Eosinophils # (Manual) PT INR D-Dimer Heparin Anti-Xa Level ABG pH 7.307 L ABG pO2 91.1 H ABG HCO3 30.5 H ABG O2 Saturation ABG Base Excess 3.4 H ABG Hemoglobin 8.7 L Oxyhemoglobin 94.3 L Sodium Potassium Chloride Carbon Dioxide BUN Creatinine Glucose POC Glucose 147 H 164 H Calcium Magnesium Ferritin Direct Bilirubin AST ALT Alkaline Phosphatase Lactate Dehydrogenase Troponin T C-Reactive Protein NT-Pro-B Natriuret Pep Total Protein Albumin Crossmatch 01/27/20 01/28/20 01/28/20 17:42 00:29 04:34 WBC RBC Hgb Hct MCV RDW Plt Count Lymph % (Auto) [place] % (Auto) Lymph # Seg Neutrophils % Seg Neuts % (Manual) Lymphocytes % (Manual) Nucleated RBC % Seg Neutrophils # Man Lymphocytes # (Manual) Monocytes # (Manual) Eosinophils # (Manual) PT INR D-Dimer Heparin Anti-Xa Level ABG pH ABG pO2 ABG HCO3 ABG O2 Saturation ABG Base Excess ABG Hemoglobin Oxyhemoglobin Sodium Potassium Chloride Carbon Dioxide BUN Creatinine Glucose POC Glucose 149 H 178 H Calcium Magnesium Ferritin > 2000.0 H Direct Bilirubin AST ALT Alkaline Phosphatase Lactate Dehydrogenase Troponin T C-Reactive Protein NT-Pro-B Natriuret Pep Total Protein Albumin Crossmatch 01/28/20 01/28/20 01/28/20 04:34 04:34 05:20 WBC RBC Hgb Hct MCV RDW Plt Count Lymph % (Auto) [place] % (Auto) Lymph # Seg Neutrophils % Seg Neuts % (Manual) Lymphocytes % (Manual) Nucleated RBC % Seg Neutrophils # Man Lymphocytes # (Manual) Monocytes # (Manual) Eosinophils # (Manual) PT INR D-Dimer 2379 H Heparin Anti-Xa Level ABG pH 7.237 L ABG pO2 90.9 H ABG HCO3 29.1 H ABG O2 Saturation ABG Base Excess ABG Hemoglobin 7.5 L Oxyhemoglobin 94.0 L Sodium Potassium Chloride Carbon Dioxide BUN Creatinine Glucose POC Glucose Calcium Magnesium Ferritin Direct Bilirubin AST ALT Alkaline Phosphatase Lactate Dehydrogenase 434 H Troponin T C-Reactive Protein 9.70 H NT-Pro-B Natriuret Pep Total Protein Albumin Crossmatch 01/28/20 01/28/20 01/28/20 06:21 12:25 18:17 WBC RBC Hgb Hct MCV RDW Plt Count Lymph % (Auto) [place] % (Auto) Lymph # Seg Neutrophils % Seg Neuts % (Manual) Lymphocytes % (Manual) Nucleated RBC % Seg Neutrophils # Man Lymphocytes # (Manual) Monocytes # (Manual) Eosinophils # (Manual) PT INR D-Dimer Heparin Anti-Xa Level ABG pH ABG pO2 ABG HCO3 ABG O2 Saturation ABG Base Excess ABG Hemoglobin Oxyhemoglobin Sodium Potassium Chloride Carbon Dioxide BUN Creatinine Glucose POC Glucose 127 H 196 H 190 H Calcium Magnesium Ferritin Direct Bilirubin AST ALT Alkaline Phosphatase Lactate Dehydrogenase Troponin T C-Reactive Protein NT-Pro-B Natriuret Pep Total Protein Albumin Crossmatch 01/28/20 01/29/20 01/29/20 23:35 04:00 04:00 WBC 12.6 H RBC 3.01 L Hgb 9.2 L Hct 29.3 L MCV 98 H RDW 18.1 H Plt Count Lymph % (Auto) [place] % (Auto) Lymph # Seg Neutrophils % Seg Neuts % (Manual) Lymphocytes % (Manual) Nucleated RBC % Seg Neutrophils # Man Lymphocytes # (Manual) Monocytes # (Manual) Eosinophils # (Manual) PT INR D-Dimer Heparin Anti-Xa Level ABG pH ABG pO2 ABG HCO3 ABG O2 Saturation ABG Base Excess ABG Hemoglobin Oxyhemoglobin Sodium 132 L Potassium Chloride 90.1 L Carbon Dioxide BUN 50 H Creatinine 3.7 H Glucose 184 H POC Glucose 177 H Calcium Magnesium Ferritin Direct Bilirubin AST 93 H ALT Alkaline Phosphatase 678 H Lactate Dehydrogenase Troponin T C-Reactive Protein NT-Pro-B Natriuret Pep Total Protein Albumin 1.7 L Crossmatch 01/29/20 01/29/20 01/29/20 05:03 11:53 16:44 WBC RBC Hgb Hct MCV RDW Plt Count Lymph % (Auto) [place] % (Auto) Lymph # Seg Neutrophils % Seg Neuts % (Manual) Lymphocytes % (Manual) Nucleated RBC % Seg Neutrophils # Man Lymphocytes # (Manual) Monocytes # (Manual) Eosinophils # (Manual) PT INR D-Dimer Heparin Anti-Xa Level ABG pH ABG pO2 ABG HCO3 ABG O2 Saturation ABG Base Excess ABG Hemoglobin Oxyhemoglobin Sodium Potassium Chloride Carbon Dioxide BUN Creatinine Glucose POC Glucose 145 H 193 H 174 H Calcium Magnesium Ferritin Direct Bilirubin AST ALT Alkaline Phosphatase Lactate Dehydrogenase Troponin T C-Reactive Protein NT-Pro-B Natriuret Pep Total Protein Albumin Crossmatch 01/29/20 01/30/20 01/30/20 23:38 04:25 11:45 WBC RBC Hgb Hct MCV RDW Plt Count Lymph % (Auto) [place] % (Auto) Lymph # Seg Neutrophils % Seg Neuts % (Manual) Lymphocytes % (Manual) Nucleated RBC % Seg Neutrophils # Man Lymphocytes # (Manual) Monocytes # (Manual) Eosinophils # (Manual) PT INR D-Dimer Heparin Anti-Xa Level ABG pH 7.253 L ABG pO2 61.8 L ABG HCO3 29.7 H ABG O2 Saturation 90.1 L ABG Base Excess ABG Hemoglobin 8.2 L Oxyhemoglobin 87.5 L Sodium Potassium Chloride Carbon Dioxide BUN Creatinine Glucose POC Glucose 144 H 191 H Calcium Magnesium Ferritin Direct Bilirubin AST ALT Alkaline Phosphatase Lactate Dehydrogenase Troponin T C-Reactive Protein NT-Pro-B Natriuret Pep Total Protein Albumin Crossmatch 01/30/20 01/31/20 01/31/20 18:21 00:04 03:52 WBC RBC Hgb Hct MCV RDW Plt Count Lymph % (Auto) [place] % (Auto) Lymph # Seg Neutrophils % Seg Neuts % (Manual) Lymphocytes % (Manual) Nucleated RBC % Seg Neutrophils # Man Lymphocytes # (Manual) Monocytes # (Manual) Eosinophils # (Manual) PT INR D-Dimer Heparin Anti-Xa Level ABG pH ABG pO2 69.3 L ABG HCO3 29.4 H ABG O2 Saturation ABG Base Excess 3.7 H ABG Hemoglobin 10.8 L Oxyhemoglobin Sodium Potassium Chloride Carbon Dioxide BUN Creatinine Glucose POC Glucose 198 H 129 H Calcium Magnesium Ferritin Direct Bilirubin AST ALT Alkaline Phosphatase Lactate Dehydrogenase Troponin T C-Reactive Protein NT-Pro-B Natriuret Pep Total Protein Albumin Crossmatch 01/31/20 01/31/20 01/31/20 04:00 04:16 05:12 WBC 16.7 H RBC 2.73 L Hgb 8.3 L Hct 25.7 L MCV RDW 18.0 H Plt Count Lymph % (Auto) [place] % (Auto) Lymph # Seg Neutrophils % Seg Neuts % (Manual) 92.0 H Lymphocytes % (Manual) 2.0 L Nucleated RBC % Seg Neutrophils # Man 15.4 H Lymphocytes # (Manual) 0.3 L Monocytes # (Manual) 1.0 H Eosinophils # (Manual) PT INR D-Dimer Heparin Anti-Xa Level ABG pH ABG pO2 ABG HCO3 ABG O2 Saturation ABG Base Excess ABG Hemoglobin Oxyhemoglobin Sodium 130 L Potassium Chloride 90.1 L Carbon Dioxide BUN 61 H Creatinine 3.4 H Glucose 128 H POC Glucose 157 H Calcium Magnesium Ferritin Direct Bilirubin AST 103 H ALT 63 H Alkaline Phosphatase 534 H Lactate Dehydrogenase Troponin T C-Reactive Protein NT-Pro-B Natriuret Pep Total Protein Albumin 2.1 L Crossmatch 01/31/20 01/31/20 01/31/20 11:50 17:39 18:47 WBC RBC Hgb Hct MCV RDW Plt Count Lymph % (Auto) [place] % (Auto) Lymph # Seg Neutrophils % Seg Neuts % (Manual) Lymphocytes % (Manual) Nucleated RBC % Seg Neutrophils # Man Lymphocytes # (Manual) Monocytes # (Manual) Eosinophils # (Manual) PT INR D-Dimer Heparin Anti-Xa Level ABG pH ABG pO2 ABG HCO3 ABG O2 Saturation ABG Base Excess ABG Hemoglobin Oxyhemoglobin Sodium Potassium Chloride Carbon Dioxide BUN Creatinine Glucose POC Glucose 129 H 51 L 172 H Calcium Magnesium Ferritin Direct Bilirubin AST ALT Alkaline Phosphatase Lactate Dehydrogenase Troponin T C-Reactive Protein NT-Pro-B Natriuret Pep Total Protein Albumin Crossmatch 02/01/20 02/01/20 02/01/20 03:49 03:49 05:00 WBC 17.4 H RBC 2.68 L Hgb 8.0 L Hct 25.2 L MCV RDW 18.4 H Plt Count Lymph % (Auto) [place] % (Auto) Lymph # Seg Neutrophils % Seg Neuts % (Manual) Lymphocytes % (Manual) Nucleated RBC % Seg Neutrophils # Man Lymphocytes # (Manual) Monocytes # (Manual) Eosinophils # (Manual) PT INR D-Dimer Heparin Anti-Xa Level ABG pH 7.290 L ABG pO2 ABG HCO3 26.8 H ABG O2 Saturation ABG Base Excess ABG Hemoglobin 7.5 L Oxyhemoglobin 94.2 L Sodium 133 L Potassium Chloride 90.8 L Carbon Dioxide 21 L BUN 90 H Creatinine 4.6 H Glucose 145 H POC Glucose Calcium Magnesium Ferritin Direct Bilirubin AST ALT Alkaline Phosphatase Lactate Dehydrogenase Troponin T C-Reactive Protein NT-Pro-B Natriuret Pep Total Protein Albumin Crossmatch 02/01/20 02/01/20 02/01/20 05:34 06:09 12:42 WBC RBC Hgb Hct MCV RDW Plt Count Lymph % (Auto) [place] % (Auto) Lymph # Seg Neutrophils % Seg Neuts % (Manual) Lymphocytes % (Manual) Nucleated RBC % Seg Neutrophils # Man Lymphocytes # (Manual) Monocytes # (Manual) Eosinophils # (Manual) PT INR D-Dimer Heparin Anti-Xa Level ABG pH ABG pO2 ABG HCO3 ABG O2 Saturation ABG Base Excess ABG Hemoglobin Oxyhemoglobin Sodium Potassium Chloride Carbon Dioxide BUN Creatinine Glucose POC Glucose 166 H 143 H 218 H Calcium Magnesium Ferritin Direct Bilirubin AST ALT Alkaline Phosphatase Lactate Dehydrogenase Troponin T C-Reactive Protein NT-Pro-B Natriuret Pep Total Protein Albumin Crossmatch 02/01/20 02/01/20 02/02/20 17:38 18:24 05:00 WBC RBC Hgb Hct MCV RDW Plt Count Lymph % (Auto) [place] % (Auto) Lymph # Seg Neutrophils % Seg Neuts % (Manual) Lymphocytes % (Manual) Nucleated RBC % Seg Neutrophils # Man Lymphocytes # (Manual) Monocytes # (Manual) Eosinophils # (Manual) PT INR D-Dimer Heparin Anti-Xa Level ABG pH 7.317 L ABG pO2 ABG HCO3 28.2 H ABG O2 Saturation ABG Base Excess ABG Hemoglobin 10.1 L Oxyhemoglobin 94.0 L Sodium Potassium Chloride Carbon Dioxide BUN Creatinine Glucose POC Glucose 158 H 233 H Calcium Magnesium Ferritin Direct Bilirubin AST ALT Alkaline Phosphatase Lactate Dehydrogenase Troponin T C-Reactive Protein NT-Pro-B Natriuret Pep Total Protein Albumin Crossmatch 02/02/20 02/02/20 02/02/20 05:44 05:44 05:44 WBC 16.0 H RBC 2.85 L Hgb 8.3 L Hct 26.3 L MCV RDW 18.6 H Plt Count Lymph % (Auto) [place] % (Auto) Lymph # Seg Neutrophils % Seg Neuts % (Manual) 91.0 H Lymphocytes % (Manual) 2.0 L Nucleated RBC % Seg Neutrophils # Man 14.6 H Lymphocytes # (Manual) 0.3 L Monocytes # (Manual) Eosinophils # (Manual) PT INR D-Dimer Heparin Anti-Xa Level 0.77 H ABG pH ABG pO2 ABG HCO3 ABG O2 Saturation ABG Base Excess ABG Hemoglobin Oxyhemoglobin Sodium Potassium Chloride 95.5 L Carbon Dioxide BUN 57 H Creatinine 3.0 H Glucose 144 H POC Glucose Calcium 8.1 L Magnesium Ferritin Direct Bilirubin 0.3 H AST 179 H ALT 106 H Alkaline Phosphatase 557 H Lactate Dehydrogenase Troponin T C-Reactive Protein NT-Pro-B Natriuret Pep Total Protein 6.1 L Albumin 2.3 L Crossmatch 02/02/20 02/02/20 02/02/20 11:17 11:33 12:24 WBC RBC Hgb Hct MCV RDW Plt Count Lymph % (Auto) [place] % (Auto) Lymph # Seg Neutrophils % Seg Neuts % (Manual) Lymphocytes % (Manual) Nucleated RBC % Seg Neutrophils # Man Lymphocytes # (Manual) Monocytes # (Manual) Eosinophils # (Manual) PT INR D-Dimer Heparin Anti-Xa Level ABG pH ABG pO2 ABG HCO3 ABG O2 Saturation ABG Base Excess ABG Hemoglobin Oxyhemoglobin Sodium Potassium Chloride Carbon Dioxide BUN Creatinine Glucose POC Glucose < 40 L < 40 L 224 H Calcium Magnesium Ferritin Direct Bilirubin AST ALT Alkaline Phosphatase Lactate Dehydrogenase Troponin T C-Reactive Protein NT-Pro-B Natriuret Pep Total Protein Albumin Crossmatch 02/02/20 02/02/20 02/03/20 12:33 17:42 00:25 WBC RBC Hgb Hct MCV RDW Plt Count Lymph % (Auto) [place] % (Auto) Lymph # Seg Neutrophils % Seg Neuts % (Manual) Lymphocytes % (Manual) Nucleated RBC % Seg Neutrophils # Man Lymphocytes # (Manual) Monocytes # (Manual) Eosinophils # (Manual) PT INR D-Dimer Heparin Anti-Xa Level ABG pH ABG pO2 ABG HCO3 ABG O2 Saturation ABG Base Excess ABG Hemoglobin Oxyhemoglobin Sodium Potassium Chloride Carbon Dioxide BUN Creatinine Glucose 296 H POC Glucose 228 H < 40 L Calcium Magnesium Ferritin Direct Bilirubin AST ALT Alkaline Phosphatase Lactate Dehydrogenase Troponin T C-Reactive Protein NT-Pro-B Natriuret Pep Total Protein Albumin Crossmatch 02/03/20 02/03/20 02/03/20 00:27 03:59 03:59 WBC 22.9 H RBC 2.80 L Hgb 8.3 L Hct 27.4 L MCV 98 H RDW 19.2 H Plt Count Lymph % (Auto) [place] % (Auto) Lymph # Seg Neutrophils % Seg Neuts % (Manual) 92.0 H Lymphocytes % (Manual) 4.0 L Nucleated RBC % Seg Neutrophils # Man 21.1 H Lymphocytes # (Manual) 0.9 L Monocytes # (Manual) Eosinophils # (Manual) PT INR D-Dimer Heparin Anti-Xa Level ABG pH ABG pO2 ABG HCO3 ABG O2 Saturation ABG Base Excess ABG Hemoglobin Oxyhemoglobin Sodium 134 L Potassium 3.5 L Chloride Carbon Dioxide 21 L BUN 40 H Creatinine 2.6 H Glucose 180 H POC Glucose 198 H Calcium Magnesium Ferritin Direct Bilirubin AST ALT Alkaline Phosphatase Lactate Dehydrogenase Troponin T C-Reactive Protein NT-Pro-B Natriuret Pep Total Protein Albumin Crossmatch 02/03/20 02/03/20 02/03/20 04:48 05:00 12:21 WBC RBC Hgb Hct MCV RDW Plt Count Lymph % (Auto) [place] % (Auto) Lymph # Seg Neutrophils % Seg Neuts % (Manual) Lymphocytes % (Manual) Nucleated RBC % Seg Neutrophils # Man Lymphocytes # (Manual) Monocytes # (Manual) Eosinophils # (Manual) PT INR D-Dimer Heparin Anti-Xa Level ABG pH 7.315 L ABG pO2 97.3 H ABG HCO3 28.5 H ABG O2 Saturation ABG Base Excess ABG Hemoglobin 8.3 L Oxyhemoglobin 94.8 L Sodium Potassium Chloride Carbon Dioxide BUN Creatinine Glucose POC Glucose 182 H 201 H Calcium Magnesium Ferritin Direct Bilirubin AST ALT Alkaline Phosphatase Lactate Dehydrogenase Troponin T C-Reactive Protein NT-Pro-B Natriuret Pep Total Protein Albumin Crossmatch 02/03/20 02/03/20 02/04/20 17:43 23:36 04:50 WBC RBC Hgb Hct MCV RDW Plt Count Lymph % (Auto) [place] % (Auto) Lymph # Seg Neutrophils % Seg Neuts % (Manual) Lymphocytes % (Manual) Nucleated RBC % Seg Neutrophils # Man Lymphocytes # (Manual) Monocytes # (Manual) Eosinophils # (Manual) PT INR D-Dimer Heparin Anti-Xa Level ABG pH ABG pO2 ABG HCO3 ABG O2 Saturation ABG Base Excess ABG Hemoglobin Oxyhemoglobin Sodium 135 L Potassium Chloride 96.3 L Carbon Dioxide 21 L BUN 63 H Creatinine 4.1 H D Glucose 156 H POC Glucose 224 H 146 H Calcium 8.2 L Magnesium Ferritin Direct Bilirubin AST ALT Alkaline Phosphatase Lactate Dehydrogenase Troponin T C-Reactive Protein NT-Pro-B Natriuret Pep Total Protein Albumin Crossmatch 02/04/20 02/04/20 02/04/20 04:50 05:30 05:40 WBC 18.3 H RBC 2.31 L Hgb 6.9 L Hct 22.0 L MCV RDW 18.2 H Plt Count Lymph % (Auto) [place] % (Auto) Lymph # Seg Neutrophils % Seg Neuts % (Manual) 85.0 H Lymphocytes % (Manual) 4.0 L Nucleated RBC % 1.0 H Seg Neutrophils # Man 15.6 H Lymphocytes # (Manual) 0.7 L Monocytes # (Manual) Eosinophils # (Manual) PT INR D-Dimer Heparin Anti-Xa Level ABG pH 7.317 L ABG pO2 77.7 L ABG HCO3 27.4 H ABG O2 Saturation ABG Base Excess ABG Hemoglobin 8.0 L Oxyhemoglobin 94.5 L Sodium Potassium Chloride Carbon Dioxide BUN Creatinine Glucose POC Glucose 202 H Calcium Magnesium Ferritin Direct Bilirubin AST ALT Alkaline Phosphatase Lactate Dehydrogenase Troponin T C-Reactive Protein NT-Pro-B Natriuret Pep Total Protein Albumin Crossmatch 02/04/20 02/04/20 02/04/20 10:47 12:53 18:44 WBC RBC Hgb Hct MCV RDW Plt Count Lymph % (Auto) [place] % (Auto) Lymph # Seg Neutrophils % Seg Neuts % (Manual) Lymphocytes % (Manual) Nucleated RBC % Seg Neutrophils # Man Lymphocytes # (Manual) Monocytes # (Manual) Eosinophils # (Manual) PT INR D-Dimer Heparin Anti-Xa Level ABG pH ABG pO2 ABG HCO3 ABG O2 Saturation ABG Base Excess ABG Hemoglobin Oxyhemoglobin Sodium Potassium Chloride Carbon Dioxide BUN Creatinine Glucose POC Glucose 197 H 143 H Calcium Magnesium Ferritin Direct Bilirubin AST ALT Alkaline Phosphatase Lactate Dehydrogenase Troponin T C-Reactive Protein NT-Pro-B Natriuret Pep Total Protein Albumin Crossmatch See Detail 02/05/20 02/05/20 02/05/20 00:43 04:14 04:35 WBC RBC Hgb Hct MCV RDW Plt Count Lymph % (Auto) [place] % (Auto) Lymph # Seg Neutrophils % Seg Neuts % (Manual) Lymphocytes % (Manual) Nucleated RBC % Seg Neutrophils # Man Lymphocytes # (Manual) Monocytes # (Manual) Eosinophils # (Manual) PT INR D-Dimer Heparin Anti-Xa Level ABG pH 7.327 L ABG pO2 75.5 L ABG HCO3 30.1 H ABG O2 Saturation ABG Base Excess 3.5 H ABG Hemoglobin 8.4 L Oxyhemoglobin 93.8 L Sodium 134 L Potassium 3.3 L Chloride 97.3 L Carbon Dioxide BUN 38 H Creatinine 2.2 H Glucose 187 H POC Glucose 163 H Calcium 8.1 L Magnesium Ferritin Direct Bilirubin AST ALT Alkaline Phosphatase Lactate Dehydrogenase Troponin T C-Reactive Protein NT-Pro-B Natriuret Pep Total Protein Albumin Crossmatch 02/05/20 02/05/20 02/05/20 04:35 05:16 12:17 WBC 24.4 H RBC 2.75 L Hgb 7.9 L Hct 25.2 L MCV RDW 18.1 H Plt Count Lymph % (Auto) [place] % (Auto) Lymph # Seg Neutrophils % Seg Neuts % (Manual) 96.0 H Lymphocytes % (Manual) 1.0 L Nucleated RBC % Seg Neutrophils # Man 23.4 H Lymphocytes # (Manual) 0.2 L Monocytes # (Manual) Eosinophils # (Manual) 0.5 H PT INR D-Dimer Heparin Anti-Xa Level ABG pH ABG pO2 ABG HCO3 ABG O2 Saturation ABG Base Excess ABG Hemoglobin Oxyhemoglobin Sodium Potassium Chloride Carbon Dioxide BUN Creatinine Glucose POC Glucose 196 H 174 H Calcium Magnesium Ferritin Direct Bilirubin AST ALT Alkaline Phosphatase Lactate Dehydrogenase Troponin T C-Reactive Protein NT-Pro-B Natriuret Pep Total Protein Albumin Crossmatch 02/05/20 02/05/20 02/05/20 13:55 13:55 13:55 WBC RBC Hgb Hct MCV RDW Plt Count Lymph % (Auto) [place] % (Auto) Lymph # Seg Neutrophils % Seg Neuts % (Manual) Lymphocytes % (Manual) Nucleated RBC % Seg Neutrophils # Man Lymphocytes # (Manual) Monocytes # (Manual) Eosinophils # (Manual) PT INR D-Dimer 2896.73 H Heparin Anti-Xa Level ABG pH ABG pO2 ABG HCO3 ABG O2 Saturation ABG Base Excess ABG Hemoglobin Oxyhemoglobin Sodium Potassium Chloride Carbon Dioxide BUN Creatinine Glucose POC Glucose Calcium Magnesium Ferritin > 2000.0 H Direct Bilirubin AST ALT Alkaline Phosphatase Lactate Dehydrogenase 311 H Troponin T C-Reactive Protein 17.30 H NT-Pro-B Natriuret Pep Total Protein Albumin Crossmatch 02/05/20 02/05/20 02/06/20 17:20 21:53 04:50 WBC RBC Hgb Hct MCV RDW Plt Count Lymph % (Auto) [place] % (Auto) Lymph # Seg Neutrophils % Seg Neuts % (Manual) Lymphocytes % (Manual) Nucleated RBC % Seg Neutrophils # Man Lymphocytes # (Manual) Monocytes # (Manual) Eosinophils # (Manual) PT INR D-Dimer Heparin Anti-Xa Level ABG pH 7.349 L ABG pO2 64.5 L ABG HCO3 28.4 H ABG O2 Saturation 94.0 L ABG Base Excess ABG Hemoglobin 8.4 L Oxyhemoglobin 91.8 L Sodium Potassium Chloride Carbon Dioxide BUN Creatinine Glucose POC Glucose 191 H 200 H Calcium Magnesium Ferritin Direct Bilirubin AST ALT Alkaline Phosphatase Lactate Dehydrogenase Troponin T C-Reactive Protein NT-Pro-B Natriuret Pep Total Protein Albumin Crossmatch 02/06/20 02/06/20 02/06/20 05:55 05:55 05:58 WBC 22.4 H RBC 3.02 L Hgb 8.5 L Hct 27.6 L MCV RDW 18.8 H Plt Count Lymph % (Auto) [place] % (Auto) Lymph # Seg Neutrophils % Seg Neuts % (Manual) Lymphocytes % (Manual) Nucleated RBC % Seg Neutrophils # Man Lymphocytes # (Manual) Monocytes # (Manual) Eosinophils # (Manual) PT INR D-Dimer Heparin Anti-Xa Level ABG pH ABG pO2 ABG HCO3 ABG O2 Saturation ABG Base Excess ABG Hemoglobin Oxyhemoglobin Sodium 136 L Potassium Chloride 96.4 L Carbon Dioxide BUN 66 H Creatinine 3.6 H D Glucose 139 H POC Glucose 110 H Calcium Magnesium Ferritin Direct Bilirubin AST ALT Alkaline Phosphatase Lactate Dehydrogenase Troponin T C-Reactive Protein NT-Pro-B Natriuret Pep Total Protein Albumin Crossmatch 02/06/20 02/06/20 02/06/20 12:19 17:52 23:47 WBC RBC Hgb Hct MCV RDW Plt Count Lymph % (Auto) [place] % (Auto) Lymph # Seg Neutrophils % Seg Neuts % (Manual) Lymphocytes % (Manual) Nucleated RBC % Seg Neutrophils # Man Lymphocytes # (Manual) Monocytes # (Manual) Eosinophils # (Manual) PT INR D-Dimer Heparin Anti-Xa Level ABG pH ABG pO2 ABG HCO3 ABG O2 Saturation ABG Base Excess ABG Hemoglobin Oxyhemoglobin Sodium Potassium Chloride Carbon Dioxide BUN Creatinine Glucose POC Glucose 185 H 185 H 173 H Calcium Magnesium Ferritin Direct Bilirubin AST ALT Alkaline Phosphatase Lactate Dehydrogenase Troponin T C-Reactive Protein NT-Pro-B Natriuret Pep Total Protein Albumin Crossmatch 02/07/20 02/07/20 02/07/20 05:04 11:46 11:52 WBC RBC Hgb Hct MCV RDW Plt Count Lymph % (Auto) [place] % (Auto) Lymph # Seg Neutrophils % Seg Neuts % (Manual) Lymphocytes % (Manual) Nucleated RBC % Seg Neutrophils # Man Lymphocytes # (Manual) Monocytes # (Manual) Eosinophils # (Manual) PT INR D-Dimer Heparin Anti-Xa Level ABG pH ABG pO2 ABG HCO3 ABG O2 Saturation ABG Base Excess ABG Hemoglobin Oxyhemoglobin Sodium Potassium Chloride Carbon Dioxide BUN Creatinine Glucose POC Glucose 145 H 240 H 251 H Calcium Magnesium Ferritin Direct Bilirubin AST ALT Alkaline Phosphatase Lactate Dehydrogenase Troponin T C-Reactive Protein NT-Pro-B Natriuret Pep Total Protein Albumin Crossmatch 02/07/20 02/08/20 02/08/20 18:18 00:22 05:43 WBC RBC Hgb Hct MCV RDW Plt Count Lymph % (Auto) [place] % (Auto) Lymph # Seg Neutrophils % Seg Neuts % (Manual) Lymphocytes % (Manual) Nucleated RBC % Seg Neutrophils # Man Lymphocytes # (Manual) Monocytes # (Manual) Eosinophils # (Manual) PT INR D-Dimer Heparin Anti-Xa Level ABG pH ABG pO2 ABG HCO3 ABG O2 Saturation ABG Base Excess ABG Hemoglobin Oxyhemoglobin Sodium Potassium Chloride Carbon Dioxide BUN Creatinine Glucose POC Glucose 225 H 274 H 307 H Calcium Magnesium Ferritin Direct Bilirubin AST ALT Alkaline Phosphatase Lactate Dehydrogenase Troponin T C-Reactive Protein NT-Pro-B Natriuret Pep Total Protein Albumin Crossmatch 02/08/20 02/08/20 02/08/20 09:40 12:09 17:42 WBC RBC Hgb Hct MCV RDW Plt Count Lymph % (Auto) [place] % (Auto) Lymph # Seg Neutrophils % Seg Neuts % (Manual) Lymphocytes % (Manual) Nucleated RBC % Seg Neutrophils # Man Lymphocytes # (Manual) Monocytes # (Manual) Eosinophils # (Manual) PT INR D-Dimer Heparin Anti-Xa Level ABG pH 7.167 L* ABG pO2 ABG HCO3 30.3 H ABG O2 Saturation 92.6 L ABG Base Excess ABG Hemoglobin 8.8 L Oxyhemoglobin 90.4 L Sodium Potassium Chloride Carbon Dioxide BUN Creatinine Glucose POC Glucose 327 H 269 H Calcium Magnesium Ferritin Direct Bilirubin AST ALT Alkaline Phosphatase Lactate Dehydrogenase Troponin T C-Reactive Protein NT-Pro-B Natriuret Pep Total Protein Albumin Crossmatch 02/08/20 02/09/20 02/09/20 20:45 01:16 04:48 WBC 22.9 H RBC 2.86 L Hgb 8.3 L Hct 26.2 L MCV RDW 18.0 H Plt Count 507 H Lymph % (Auto) [place] % (Auto) Lymph # Seg Neutrophils % Seg Neuts % (Manual) Lymphocytes % (Manual) Nucleated RBC % Seg Neutrophils # Man Lymphocytes # (Manual) Monocytes # (Manual) Eosinophils # (Manual) PT INR D-Dimer Heparin Anti-Xa Level ABG pH ABG pO2 79.1 L ABG HCO3 31.7 H ABG O2 Saturation ABG Base Excess 4.6 H ABG Hemoglobin Oxyhemoglobin 93.5 L Sodium Potassium Chloride Carbon Dioxide BUN Creatinine Glucose POC Glucose 150 H Calcium Magnesium Ferritin Direct Bilirubin AST ALT Alkaline Phosphatase Lactate Dehydrogenase Troponin T C-Reactive Protein NT-Pro-B Natriuret Pep Total Protein Albumin Crossmatch 02/09/20 02/09/20 02/09/20 04:48 05:14 13:11 WBC RBC Hgb Hct MCV RDW Plt Count Lymph % (Auto) [place] % (Auto) Lymph # Seg Neutrophils % Seg Neuts % (Manual) Lymphocytes % (Manual) Nucleated RBC % Seg Neutrophils # Man Lymphocytes # (Manual) Monocytes # (Manual) Eosinophils # (Manual) PT INR D-Dimer Heparin Anti-Xa Level ABG pH ABG pO2 ABG HCO3 ABG O2 Saturation ABG Base Excess ABG Hemoglobin Oxyhemoglobin Sodium Potassium Chloride 93.9 L Carbon Dioxide BUN 59 H Creatinine 2.5 H Glucose 309 H POC Glucose 356 H 184 H Calcium Magnesium Ferritin Direct Bilirubin AST ALT Alkaline Phosphatase Lactate Dehydrogenase Troponin T C-Reactive Protein NT-Pro-B Natriuret Pep Total Protein Albumin Crossmatch 02/09/20 02/10/20 02/10/20 16:53 00:20 05:38 WBC RBC Hgb Hct MCV RDW Plt Count Lymph % (Auto) [place] % (Auto) Lymph # Seg Neutrophils % Seg Neuts % (Manual) Lymphocytes % (Manual) Nucleated RBC % Seg Neutrophils # Man Lymphocytes # (Manual) Monocytes # (Manual) Eosinophils # (Manual) PT INR D-Dimer Heparin Anti-Xa Level ABG pH ABG pO2 ABG HCO3 ABG O2 Saturation ABG Base Excess ABG Hemoglobin Oxyhemoglobin Sodium Potassium Chloride Carbon Dioxide BUN Creatinine Glucose POC Glucose 357 H 298 H 300 H Calcium Magnesium Ferritin Direct Bilirubin AST ALT Alkaline Phosphatase Lactate Dehydrogenase Troponin T C-Reactive Protein NT-Pro-B Natriuret Pep Total Protein Albumin Crossmatch 02/10/20 02/10/20 02/11/20 12:38 18:17 00:08 WBC RBC Hgb Hct MCV RDW Plt Count Lymph % (Auto) [place] % (Auto) Lymph # Seg Neutrophils % Seg Neuts % (Manual) Lymphocytes % (Manual) Nucleated RBC % Seg Neutrophils # Man Lymphocytes # (Manual) Monocytes # (Manual) Eosinophils # (Manual) PT INR D-Dimer Heparin Anti-Xa Level ABG pH ABG pO2 ABG HCO3 ABG O2 Saturation ABG Base Excess ABG Hemoglobin Oxyhemoglobin Sodium Potassium Chloride Carbon Dioxide BUN Creatinine Glucose POC Glucose 350 H 271 H 164 H Calcium Magnesium Ferritin Direct Bilirubin AST ALT Alkaline Phosphatase Lactate Dehydrogenase Troponin T C-Reactive Protein NT-Pro-B Natriuret Pep Total Protein Albumin Crossmatch 02/11/20 02/11/20 02/11/20 05:34 12:18 17:27 WBC RBC Hgb Hct MCV RDW Plt Count Lymph % (Auto) [place] % (Auto) Lymph # Seg Neutrophils % Seg Neuts % (Manual) Lymphocytes % (Manual) Nucleated RBC % Seg Neutrophils # Man Lymphocytes # (Manual) Monocytes # (Manual) Eosinophils # (Manual) PT INR D-Dimer Heparin Anti-Xa Level ABG pH ABG pO2 ABG HCO3 ABG O2 Saturation ABG Base Excess ABG Hemoglobin Oxyhemoglobin Sodium Potassium Chloride Carbon Dioxide BUN Creatinine Glucose POC Glucose 274 H 246 H 174 H Calcium Magnesium Ferritin Direct Bilirubin AST ALT Alkaline Phosphatase Lactate Dehydrogenase Troponin T C-Reactive Protein NT-Pro-B Natriuret Pep Total Protein Albumin Crossmatch 02/12/20 02/12/20 02/12/20 00:19 05:00 05:00 WBC 31.3 H RBC 2.79 L Hgb 8.0 L Hct 25.4 L MCV RDW 18.4 H Plt Count 566 H Lymph % (Auto) [place] % (Auto) Lymph # Seg Neutrophils % Seg Neuts % (Manual) Lymphocytes % (Manual) Nucleated RBC % Seg Neutrophils # Man Lymphocytes # (Manual) Monocytes # (Manual) Eosinophils # (Manual) PT INR D-Dimer Heparin Anti-Xa Level ABG pH ABG pO2 ABG HCO3 ABG O2 Saturation ABG Base Excess ABG Hemoglobin Oxyhemoglobin Sodium 136 L Potassium Chloride 95.6 L Carbon Dioxide BUN 102 H Creatinine 3.0 H Glucose 170 H POC Glucose 227 H Calcium Magnesium Ferritin Direct Bilirubin AST ALT Alkaline Phosphatase Lactate Dehydrogenase Troponin T C-Reactive Protein NT-Pro-B Natriuret Pep Total Protein Albumin Crossmatch 02/12/20 02/12/20 02/12/20 05:25 12:21 18:58 WBC RBC Hgb Hct MCV RDW Plt Count Lymph % (Auto) [place] % (Auto) Lymph # Seg Neutrophils % Seg Neuts % (Manual) Lymphocytes % (Manual) Nucleated RBC % Seg Neutrophils # Man Lymphocytes # (Manual) Monocytes # (Manual) Eosinophils # (Manual) PT INR D-Dimer Heparin Anti-Xa Level ABG pH ABG pO2 ABG HCO3 ABG O2 Saturation ABG Base Excess ABG Hemoglobin Oxyhemoglobin Sodium Potassium Chloride Carbon Dioxide BUN Creatinine Glucose POC Glucose 157 H 230 H 197 H Calcium Magnesium Ferritin Direct Bilirubin AST ALT Alkaline Phosphatase Lactate Dehydrogenase Troponin T C-Reactive Protein NT-Pro-B Natriuret Pep Total Protein Albumin Crossmatch 02/12/20 02/13/20 02/13/20 23:36 05:30 08:39 WBC RBC Hgb Hct MCV RDW Plt Count Lymph % (Auto) [place] % (Auto) Lymph # Seg Neutrophils % Seg Neuts % (Manual) Lymphocytes % (Manual) Nucleated RBC % Seg Neutrophils # Man Lymphocytes # (Manual) Monocytes # (Manual) Eosinophils # (Manual) PT INR D-Dimer Heparin Anti-Xa Level ABG pH ABG pO2 ABG HCO3 ABG O2 Saturation ABG Base Excess ABG Hemoglobin Oxyhemoglobin Sodium 135 L Potassium Chloride 93.8 L Carbon Dioxide BUN 72 H Creatinine 2.2 H Glucose 212 H POC Glucose 166 H 247 H Calcium Magnesium Ferritin Direct Bilirubin AST ALT Alkaline Phosphatase Lactate Dehydrogenase Troponin T C-Reactive Protein NT-Pro-B Natriuret Pep Total Protein Albumin Crossmatch 02/13/20 02/13/20 02/13/20 13:19 18:05 23:37 WBC RBC Hgb Hct MCV RDW Plt Count Lymph % (Auto) [place] % (Auto) Lymph # Seg Neutrophils % Seg Neuts % (Manual) Lymphocytes % (Manual) Nucleated RBC % Seg Neutrophils # Man Lymphocytes # (Manual) Monocytes # (Manual) Eosinophils # (Manual) PT INR D-Dimer Heparin Anti-Xa Level ABG pH ABG pO2 ABG HCO3 ABG O2 Saturation ABG Base Excess ABG Hemoglobin Oxyhemoglobin Sodium Potassium Chloride Carbon Dioxide BUN Creatinine Glucose POC Glucose 244 H 232 H 233 H Calcium Magnesium Ferritin Direct Bilirubin AST ALT Alkaline Phosphatase Lactate Dehydrogenase Troponin T C-Reactive Protein NT-Pro-B Natriuret Pep Total Protein Albumin Crossmatch 02/14/20 02/14/20 02/14/20 05:11 11:36 17:36 WBC RBC Hgb Hct MCV RDW Plt Count Lymph % (Auto) [place] % (Auto) Lymph # Seg Neutrophils % Seg Neuts % (Manual) Lymphocytes % (Manual) Nucleated RBC % Seg Neutrophils # Man Lymphocytes # (Manual) Monocytes # (Manual) Eosinophils # (Manual) PT INR D-Dimer Heparin Anti-Xa Level ABG pH ABG pO2 ABG HCO3 ABG O2 Saturation ABG Base Excess ABG Hemoglobin Oxyhemoglobin Sodium Potassium Chloride Carbon Dioxide BUN Creatinine Glucose POC Glucose 239 H 67 L 216 H Calcium Magnesium Ferritin Direct Bilirubin AST ALT Alkaline Phosphatase Lactate Dehydrogenase Troponin T C-Reactive Protein NT-Pro-B Natriuret Pep Total Protein Albumin Crossmatch 02/14/20 02/14/20 02/15/20 18:30 23:41 04:58 WBC 36.1 H RBC 3.53 L Hgb Hct MCV RDW 19.4 H Plt Count 750 H Lymph % (Auto) [place] % (Auto) Lymph # Seg Neutrophils % Seg Neuts % (Manual) Lymphocytes % (Manual) Nucleated RBC % Seg Neutrophils # Man Lymphocytes # (Manual) Monocytes # (Manual) Eosinophils # (Manual) PT INR D-Dimer Heparin Anti-Xa Level ABG pH ABG pO2 ABG HCO3 ABG O2 Saturation ABG Base Excess ABG Hemoglobin Oxyhemoglobin Sodium Potassium Chloride Carbon Dioxide BUN Creatinine Glucose POC Glucose 141 H 203 H Calcium Magnesium Ferritin Direct Bilirubin AST ALT Alkaline Phosphatase Lactate Dehydrogenase Troponin T C-Reactive Protein NT-Pro-B Natriuret Pep Total Protein Albumin Crossmatch 02/15/20 02/15/20 02/15/20 04:58 04:58 18:13 WBC RBC Hgb Hct MCV RDW Plt Count Lymph % (Auto) [place] % (Auto) Lymph # Seg Neutrophils % Seg Neuts % (Manual) Lymphocytes % (Manual) Nucleated RBC % Seg Neutrophils # Man Lymphocytes # (Manual) Monocytes # (Manual) Eosinophils # (Manual) PT 15.2 H INR 1.18 H D-Dimer Heparin Anti-Xa Level ABG pH ABG pO2 ABG HCO3 ABG O2 Saturation ABG Base Excess ABG Hemoglobin Oxyhemoglobin Sodium Potassium 5.4 H Chloride 94.5 L Carbon Dioxide BUN 102 H Creatinine 3.1 H Glucose POC Glucose 69 L Calcium Magnesium Ferritin Direct Bilirubin AST ALT Alkaline Phosphatase Lactate Dehydrogenase Troponin T C-Reactive Protein NT-Pro-B Natriuret Pep Total Protein Albumin Crossmatch 02/16/20 02/16/20 02/16/20 05:53 12:08 18:41 WBC RBC Hgb Hct MCV RDW Plt Count Lymph % (Auto) [place] % (Auto) Lymph # Seg Neutrophils % Seg Neuts % (Manual) Lymphocytes % (Manual) Nucleated RBC % Seg Neutrophils # Man Lymphocytes # (Manual) Monocytes # (Manual) Eosinophils # (Manual) PT INR D-Dimer Heparin Anti-Xa Level ABG pH ABG pO2 ABG HCO3 ABG O2 Saturation ABG Base Excess ABG Hemoglobin Oxyhemoglobin Sodium Potassium Chloride Carbon Dioxide BUN Creatinine Glucose POC Glucose 64 L 178 H 192 H Calcium Magnesium Ferritin Direct Bilirubin AST ALT Alkaline Phosphatase Lactate Dehydrogenase Troponin T C-Reactive Protein NT-Pro-B Natriuret Pep Total Protein Albumin Crossmatch 02/17/20 02/17/20 00:12 05:11 WBC RBC Hgb Hct MCV RDW Plt Count Lymph % (Auto) [place] % (Auto) Lymph # Seg Neutrophils % Seg Neuts % (Manual) Lymphocytes % (Manual) Nucleated RBC % Seg Neutrophils # Man Lymphocytes # (Manual) Monocytes # (Manual) Eosinophils # (Manual) PT INR D-Dimer Heparin Anti-Xa Level ABG pH ABG pO2 ABG HCO3 ABG O2 Saturation ABG Base Excess ABG Hemoglobin Oxyhemoglobin Sodium Potassium Chloride Carbon Dioxide BUN Creatinine Glucose POC Glucose 232 H 176 H Calcium Magnesium Ferritin Direct Bilirubin AST ALT Alkaline Phosphatase Lactate Dehydrogenase Troponin T C-Reactive Protein NT-Pro-B Natriuret Pep Total Protein Albumin Crossmatch Allied health notes reviewed: nursing
--- NOTE | 2020-02-17 12:56 | Progress Note ---
Assessment and Plan - Patient Problems (1) End stage renal disease on dialysis Current Visit: No Status: Chronic Plan to address problem: hemodialysis 4 times a week due to worsening azotemia with hypercatabolic state. Next hemodialysis on Tuesday (2) Acute respiratory failure with hypoxia Current Visit: No Status: Acute Plan to address problem: ventilator management by pulmonary/gate agent. Status post trach and PEG awaiting transfer to LTAC (3) Pneumonia due to COVID-19 virus Current Visit: Yes Status: Acute Plan to address problem: continue treatment per infectious disease. (4) Volume overload Current Visit: Yes Status: Acute Qualifiers: Plan to address problem: end-stage renal disease with fluid overload. Resolved with fluid removal on dialysis. (5) Anemia in CKD (chronic kidney disease) Current Visit: Yes Status: Acute Qualifiers: Chronic kidney disease stage: on chronic dialysis Qualified Code(s): N18.6 - End stage renal disease; D63.1 - Anemia in chronic kidney disease; Z99.2 - Dependence on renal dialysis Plan to address problem: give erythropoietin on dialysis (6) T2DM (type 2 diabetes mellitus) Current Visit: Yes Status: Acute Qualifiers: Diabetes mellitus intermission coordinator insulin use: unspecified intermission coordinator insulin use status Plan to address problem: blood sugar management by primary attending. (7) Hypertensive chronic kidney disease with stage 5 chronic kidney disease or end stage renal disease Current Visit: No Status: Chronic Plan to address problem: patient is stable off of vasopressor. Blood pressure is now trending up. We will add low-dose beta-natasha if it increases Follow blood pressure Subjective Date of service: 02/17/20 Principal diagnosis: Pneumonia Interval history: Patient is intubated on the ventilator in intensive care unit. Not on v asopressor. Patient was not examined today Objective - Exam Narrative Exam: elderly -Citizen Of [place] female lying in bed intubated on the ventilator Patient was not examined today due to Personal protective equipment conservation in current Covid19 Pandemic. Based exam on that of Hospitalists and other consultants - Vital Signs Vital signs: Vital Signs - 12hr 02/17/20 02/17/20 02/17/20 01:00 02:00 03:00 Temperature Pulse Rate 104 H 106 H 104 H Pulse Rate [ From Monitor] Respiratory 17 21 21 Rate Blood Pressure 131/68 141/68 123/57 O2 Sat by Pulse 100 100 100 Oximetry O2 Sat by Pulse Oximetry [ Assessment] 02/17/20 02/17/20 02/17/20 04:00 05:00 05:10 Temperature 99.1 F Pulse Rate 101 H 99 H 97 H Pulse Rate [ 99 H From Monitor] Respiratory 21 17 Rate Blood Pressure 115/55 123/55 123/55 O2 Sat by Pulse 100 100 100 Oximetry O2 Sat by Pulse 100 Oximetry [ Assessment] 02/17/20 02/17/20 02/17/20 06:00 07:00 08:00 Temperature 98.6 F Pulse Rate 94 H 95 H 97 H Pulse Rate [ 101 H From Monitor] Respiratory 23 20 22 Rate Blood Pressure 121/59 124/63 136/59 O2 Sat by Pulse 100 100 100 Oximetry O2 Sat by Pulse Oximetry [ Assessment] 02/17/20 02/17/20 02/17/20 08:05 08:15 09:00 Temperature Pulse Rate 94 H 99 H 102 H Pulse Rate [ From Monitor] Respiratory 23 15 Rate Blood Pressure 136/59 152/68 136/58 O2 Sat by Pulse 100 100 100 Oximetry O2 Sat by Pulse Oximetry [ Assessment] 02/17/20 02/17/20 02/17/20 10:00 11:00 12:00 Temperature 98.6 F Pulse Rate 95 H 99 H 99 H Pulse Rate [ 101 H From Monitor] Respiratory 23 22 20 Rate Blood Pressure 136/58 160/64 155/70 O2 Sat by Pulse 100 100 100 Oximetry O2 Sat by Pulse Oximetry [ Assessment] 02/17/20 12:11 Temperature Pulse Rate 100 H Pulse Rate [ From Monitor] Respiratory Rate Blood Pressure 147/71 O2 Sat by Pulse 100 Oximetry O2 Sat by Pulse Oximetry [ Assessment] - Lab 02/15/20 04:58 02/15/20 04:58 Most recent lab results ABG pH 7.351 pH Units (7.350-7.450) 02/08/20 20:45 ABG pCO2 58.7 mm Hg 02/08/20 20:45 ABG pO2 79.1 mm Hg (80.0-90.0) L 02/08/20 20:45 ABG HCO3 31.7 mmol/L (20.0-26.0) H 02/08/20 20:45 ABG O2 Saturation 95.6 % (95.0-99.0) 02/08/20 20:45 Calcium 9.6 mg/dL (8.4-10.2) 02/15/20 04:58 Phosphorus 3.30 mg/dL (2.5-4.5) 01/12/20 16:01 Magnesium 2.00 mg/dL (1.7-2.3) 01/13/20 06:11 Medications & Allergies - Medications Allergies/Adverse Reactions: Allergies cheese Allergy (Mild, Verified 12/20/19 10:19) Itching iodine Allergy (Mild, Verified 12/20/19 10:16) Anaphylaxis clonidine Allergy (Verified 12/19/19 04:13) Anaphylaxis shellfish derived Adverse Reaction (Verified 12/19/19 04:13) Angioedema Home Medications: Home Medications Medication Instructions Recorded Confirmed Last Taken Type Atorvastatin [Lipitor] 40 mg PO DAILY 11/06/19 01/13/20 01/02/20 10:00 History DULoxetine [Cymbalta] 30 mg PO QDAY #30 capsule 01/04/20 01/13/20 Unknown Rx Acetaminophen [Acetaminophen TAB] 650 mg PO Q4H PRN tablet 02/16/20 Unknown Rx AtorvaSTATin [Lipitor] 40 mg PO QHS tablet 02/16/20 Unknown Rx Insulin Glargine [Lantus VIAL] 15 units SUB-Q DAILY 30 Days units 02/16/20 Unknown Rx Lipase/Protease/Amylase [Pancreaze 1 each FEEDTUBE PRN PRN capsule 02/16/[address] 10,500 Unit] Lispro Insulin [HumaLOG] 0 unit SUB-Q Q6HR units 02/16/20 Unknown Rx Simple Syrup 15 ml FEEDTUBE PRN PRN oral.liqd 02/16/20 Unknown Rx Simple Syrup 30 ml FEEDTUBE PRN PRN oral.liqd 02/16/20 Unknown Rx Sodium Bicarbonate 325 mg FEEDTUBE PRN PRN tablet 02/16/20 Unknown Rx methylPREDNISolone Sod Suc 20 mg IV Q8HR vial 02/16/20 Unknown Rx [Solu-MEDROL] Active Medications: Generic Name Dose Route Start Last Admin Trade Name Freq PRN Reason Stop Dose Admin Acetaminophen 650 mg 01/09/20 16:33 02/05/20 05:58 Tylenol PO 650 mg Q4H PRN Administration Pain MILD(1-3)/Fever >100.5/MEANS Lipase/Protease/Amylase 1 each 01/23/20 14:28 02/07/20 13:[address] 10,500 Unit FEEDTUBE 1 each PRN PRN Administration For Clogged Feeding Tube Atorvastatin Calcium 40 mg 01/09/20 22:00 02/16/20 23:46 Lipitor PO 40 mg QHS PHILLY Administration Dextrose 50 ml 01/23/20 07:26 02/16/20 06:03 D50w (25gm) Syringe IV 50 ml Q30MIN PRN Administration BLOOD GLUCOSE < 70 Dextrose 25 ml 01/24/20 08:58 01/24/20 13:41 D50w (25gm) Syringe IV 25 ml Q4H PRN Administration BG < 80 MG/DL Docusate Sodium 100 mg 01/25/20 22:00 02/17/20 09:50 Colace PO 100 mg BID PHILLY Administration Epoetin Helio 20,000 unit 02/04/20 12:00 02/04/20 13:00 Procrit SUB-Q 20,000 unit SILVERIO PHILLY Administration Famotidine 20 mg 01/09/20 22:00 02/17/20 09:50 Pepcid PO 20 mg DAILY PHILLY Administration Heparin Sodium (Porcine) 5,000 unit 02/07/20 10:00 02/17/20 09:50 Heparin SUB-Q 5,000 unit Q12HR PHILLY Administration Norepinephrine 4 mg in 250 mls @ 7.5 mls/hr 01/21/20 18:00 02/11/20 15:00 Levophed Drip 4 Mg/Ns 250 Ml IV 0 mcg/min TITR PHILLY 0 mls/hr Titration Protocol 2 MCG/MIN Sodium Chloride 100 mls @ 999 mls/hr 02/12/20 08:17 Nacl 0.9% IV SILVERIO PRN Hypotension Sodium Chloride 1,000 mls @ 50 mls/hr 02/15/20 08:00 Nacl 0.9% 1000 Ml IV DIRECT PHILLY Insulin Glargine 15 units 02/10/20 13:00 02/17/20 09:50 Lantus SUB-Q 15 units DAILY PHILLY Administration Insulin Human Lispro 0 unit 02/07/20 12:00 02/17/20 12:41 Humalog SUB-Q 6 unit Q6HR PHILLY Administration Protocol Lorazepam 2 mg 01/23/20 15:36 Ativan IV Q10MIN PRN Agitation Methylprednisolone Sodium Succinate 20 mg 02/14/20 14:00 02/17/20 05:31 Solu-Medrol IV 20 mg Q8HR PHILLY Administration Ondansetron HCl 4 mg 01/09/20 16:33 01/20/20 10:19 Zofran IV 4 mg Q8H PRN Administration Nausea And Vomiting Simple Syrup 15 ml 01/23/20 14:28 02/14/20 12:02 Simple Syrup FEEDTUBE 15 ml PRN PRN Administration Hypoglycemia Simple Syrup 30 ml 01/23/20 14:28 Simple Syrup FEEDTUBE PRN PRN Hypoglycemia Sodium Bicarbonate 325 mg 01/23/20 14:28 Sodium Bicarbonate FEEDTUBE PRN PRN For Clogged Feeding Tube Sodium Chloride 10 ml 01/09/20 22:00 02/17/20 10:09 Sodium Chloride Flush Syringe 10 Ml IV 10 ml BID PHILLY Administration Sodium Chloride 10 ml 01/09/20 16:33 Sodium Chloride Flush Syringe 10 Ml IV PRN PRN LINE FLUSH
--- NOTE | 2020-02-17 13:00 | Event Note ---
Date: 02/17/20 Pt chart reviewed. No acute events noted. Pt condition discussed with RN. Patient s/p trach/PEG POD 2. Currently, patient is tolerating TF and on CPAP mode on vent via trach. Both sites are c/d/i. Pt awaiting transfer to [facility].
[2020-02-18] MEDS: ACETAMINOPHEN 325 MG TAB PO PRN (00:40)
[2020-02-18] MEDS: INSULIN LISPRO 100 UNIT/ML SUB-Q SCH ×4 (00:41→14:22)
[2020-02-18] MEDS: DOCUSATE SODIUM 100 MG/10 ML ORAL LIQD PO SCH ×2 (00:41→09:47)
[2020-02-18] MEDS: methylPREDNISolone Sod Succinate 40 MG/1 ML INJ IV SCH ×2 (05:37→14:22)
--- NOTE | 2020-02-18 09:17 | Progress Note ---
Assessment and Plan 64 y/o female with COVID positive, viral pneumonia with some pulmonary vascular congestion superimposed, now status post trach and peg. 1. Will speak with CM today in regards to transfer. 2. HD per renal. Likely today. 3. In regards to steroids. Changed to 20q8 on 02/14/2020 and today is Day 4. On February 20 switch to 40 PO daily for 4 days, then 20 PO daily for 4 days, then 10 PO daily for 4 days then stop. 4. Continue isolation for now. Reviewed ID note and they suggest stopping after 4 weeks. Need to clarifiy is this 4 weeks from initial diagnosis or 4 weeks from negative test. 5. Clinically stable for LTACH transfer. CCT 31 minutes. Subjective Date of service: 02/18/20 Principal diagnosis: Pneumonia Interval history: No acute events. Was not transferred over the weekend secondary to communication issues. Pulm status is stable. Trach is in good position with no issues. Objective Vital Signs - 12hr 02/17/20 02/17/20 02/17/20 22:00 23:00 23:46 Temperature Pulse Rate 94 H 95 H 93 H Pulse Rate [ From Monitor] Respiratory 17 20 17 Rate Blood Pressure 142/57 158/59 169/58 O2 Sat by Pulse 100 100 100 Oximetry O2 Sat by Pulse Oximetry [ Assessment] 02/18/20 02/18/20 02/18/20 00:00 00:09 00:24 Temperature 100 F H Pulse Rate 94 H 94 H Pulse Rate [ 94 H From Monitor] Respiratory 19 Rate Blood Pressure 140/54 140/54 O2 Sat by Pulse 100 100 100 Oximetry O2 Sat by Pulse Oximetry [ Assessment] 02/18/20 02/18/20 02/18/20 01:00 02:00 03:00 Temperature Pulse Rate 93 H 98 H 97 H Pulse Rate [ From Monitor] Respiratory 19 20 18 Rate Blood Pressure 136/54 136/51 132/57 O2 Sat by Pulse 100 100 100 Oximetry O2 Sat by Pulse Oximetry [ Assessment] 02/18/20 02/18/20 02/18/20 03:48 04:00 04:55 Temperature 99 F Pulse Rate 97 H 99 H 91 H Pulse Rate [ 90 From Monitor] Respiratory 19 Rate Blood Pressure 136/62 149/66 O2 Sat by Pulse 100 100 Oximetry O2 Sat by Pulse Oximetry [ Assessment] 02/18/20 02/18/20 02/18/20 05:00 05:06 06:00 Temperature Pulse Rate 97 H 89 Pulse Rate [ From Monitor] Respiratory 20 20 Rate Blood Pressure 149/66 128/52 O2 Sat by Pulse 100 100 Oximetry O2 Sat by Pulse 100 Oximetry [ Assessment] 02/18/20 08:00 Temperature Pulse Rate 90 Pulse Rate [ From Monitor] Respiratory Rate Blood Pressure 147/69 O2 Sat by Pulse 100 Oximetry O2 Sat by Pulse Oximetry [ Assessment] Constitutional: other (orally intubated, not sedated currently on vent. on AC 450 50) Eyes: non-icteric ENT: oropharynx moist Neck: supple Effort: normal Ascultation: Bilateral: rales Cardiovascular: regular rate and rhythm (no mrg) Gastrointestinal: normoactive bowel sounds, soft, non-tender, non-distended Integumentary: normal Extremities: no cyanosis, no edema, pink and warm Neurologic: unable to assess Psychiatric: mood appropriate, affect normal CBC and BMP: 02/15/20 04:58 02/15/20 04:58 ABG, PT/INR, D-dimer: ABG ABG pH 7.351 pH Units (7.350-7.450) 02/08/20 20:45 ABG pCO2 58.7 mm Hg 02/08/20 20:45 ABG pO2 79.1 mm Hg (80.0-90.0) L 02/08/20 20:45 ABG O2 Saturation 95.6 % (95.0-99.0) 02/08/20 20:45 PT/INR, D-dimer PT 15.2 Sec. (12.2-14.9) H 02/15/20 04:58 INR 1.18 (0.87-1.13) H 02/15/20 04:58 D-Dimer 2896.73 ng/mlDDU (0-234) H 02/05/20 13:55 Abnormal lab findings: Abnormal Labs 01/09/20 01/09/20 01/09/20 12:55 12:55 12:55 WBC 4.4 L RBC 3.44 L Hgb Hct MCV RDW 17.0 H Plt Count Lymph % (Auto) 6.8 L [place] % (Auto) 13.6 H Lymph # 0.3 L Seg Neutrophils % 79.0 H Seg Neuts % (Manual) Lymphocytes % (Manual) Nucleated RBC % Seg Neutrophils # Man Lymphocytes # (Manual) Monocytes # (Manual) Eosinophils # (Manual) PT 15.6 H INR 1.22 H D-Dimer Heparin Anti-Xa Level ABG pH ABG pO2 ABG HCO3 ABG O2 Saturation ABG Base Excess ABG Hemoglobin Oxyhemoglobin Sodium 130 L Potassium Chloride 88.9 L Carbon Dioxide 20 L BUN 41 H Creatinine 7.6 H Glucose 115 H POC Glucose Calcium Magnesium Ferritin Direct Bilirubin AST ALT Alkaline Phosphatase 153 H Lactate Dehydrogenase Troponin T 0.382 H* C-Reactive Protein NT-Pro-B Natriuret Pep 06514 H Total Protein Albumin 3.2 L Crossmatch 01/09/20 01/10/20 01/10/20 20:14 00:16 06:54 WBC 3.3 L RBC 3.00 L Hgb 9.2 L Hct 27.8 L MCV RDW 17.2 H Plt Count Lymph % (Auto) 8.9 L [place] % (Auto) 11.5 H Lymph # 0.3 L Seg Neutrophils % 79.1 H Seg Neuts % (Manual) Lymphocytes % (Manual) Nucleated RBC % Seg Neutrophils # Man Lymphocytes # (Manual) Monocytes # (Manual) Eosinophils # (Manual) PT INR D-Dimer Heparin Anti-Xa Level ABG pH ABG pO2 ABG HCO3 ABG O2 Saturation ABG Base Excess ABG Hemoglobin Oxyhemoglobin Sodium Potassium Chloride Carbon Dioxide BUN Creatinine Glucose POC Glucose Calcium Magnesium Ferritin Direct Bilirubin AST ALT Alkaline Phosphatase Lactate Dehydrogenase Troponin T 0.349 H* 0.328 H* C-Reactive Protein NT-Pro-B Natriuret Pep Total Protein Albumin Crossmatch 01/10/20 01/10/20 01/11/20 06:54 06:54 16:45 WBC RBC Hgb Hct MCV RDW Plt Count Lymph % (Auto) [place] % (Auto) Lymph # Seg Neutrophils % Seg Neuts % (Manual) Lymphocytes % (Manual) Nucleated RBC % Seg Neutrophils # Man Lymphocytes # (Manual) Monocytes # (Manual) Eosinophils # (Manual) PT INR D-Dimer Heparin Anti-Xa Level ABG pH ABG pO2 ABG HCO3 ABG O2 Saturation ABG Base Excess ABG Hemoglobin Oxyhemoglobin Sodium 133 L Potassium Chloride 90.6 L Carbon Dioxide BUN 50 H Creatinine 8.4 H Glucose 101 H POC Glucose 106 H Calcium 8.1 L Magnesium Ferritin Direct Bilirubin AST ALT Alkaline Phosphatase 148 H Lactate Dehydrogenase Troponin T 0.315 H* C-Reactive Protein NT-Pro-B Natriuret Pep Total Protein 5.4 L Albumin 2.7 L Crossmatch 01/12/20 01/13/20 01/13/20 16:01 06:11 06:11 WBC 3.1 L RBC 3.25 L Hgb 9.8 L Hct MCV RDW 17.2 H Plt Count 136 L Lymph % (Auto) [place] % (Auto) Lymph # Seg Neutrophils % Seg Neuts % (Manual) Lymphocytes % (Manual) Nucleated RBC % Seg Neutrophils # Man Lymphocytes # (Manual) Monocytes # (Manual) Eosinophils # (Manual) PT INR D-Dimer Heparin Anti-Xa Level ABG pH ABG pO2 ABG HCO3 ABG O2 Saturation ABG Base Excess ABG Hemoglobin Oxyhemoglobin Sodium 135 L Potassium Chloride 93.4 L Carbon Dioxide BUN 19 H Creatinine 4.5 H Glucose 120 H POC Glucose Calcium 7.8 L Magnesium 1.40 L Ferritin Direct Bilirubin AST ALT Alkaline Phosphatase Lactate Dehydrogenase Troponin T C-Reactive Protein NT-Pro-B Natriuret Pep Total Protein Albumin Crossmatch 01/16/20 01/16/20 01/16/20 08:35 11:49 14:11 WBC RBC Hgb Hct MCV RDW Plt Count Lymph % (Auto) [place] % (Auto) Lymph # Seg Neutrophils % Seg Neuts % (Manual) Lymphocytes % (Manual) Nucleated RBC % Seg Neutrophils # Man Lymphocytes # (Manual) Monocytes # (Manual) Eosinophils # (Manual) PT INR D-Dimer Heparin Anti-Xa Level ABG pH ABG pO2 48.4 L ABG HCO3 30.5 H ABG O2 Saturation 81.9 L ABG Base Excess 4.6 H ABG Hemoglobin 10.5 L Oxyhemoglobin 80.1 L Sodium Potassium Chloride Carbon Dioxide BUN Creatinine Glucose POC Glucose 126 H 119 H Calcium Magnesium Ferritin Direct Bilirubin AST ALT Alkaline Phosphatase Lactate Dehydrogenase Troponin T C-Reactive Protein NT-Pro-B Natriuret Pep Total Protein Albumin Crossmatch 01/16/20 01/16/20 01/16/20 15:38 15:38 15:38 WBC RBC Hgb Hct MCV RDW Plt Count Lymph % (Auto) [place] % (Auto) Lymph # Seg Neutrophils % Seg Neuts % (Manual) Lymphocytes % (Manual) Nucleated RBC % Seg Neutrophils # Man Lymphocytes # (Manual) Monocytes # (Manual) Eosinophils # (Manual) PT INR D-Dimer 1104.64 H Heparin Anti-Xa Level ABG pH ABG pO2 ABG HCO3 ABG O2 Saturation ABG Base Excess ABG Hemoglobin Oxyhemoglobin Sodium Potassium Chloride Carbon Dioxide BUN Creatinine Glucose POC Glucose Calcium Magnesium Ferritin > 2000.0 H Direct Bilirubin AST ALT Alkaline Phosphatase Lactate Dehydrogenase 690 H Troponin T C-Reactive Protein 24.10 H NT-Pro-B Natriuret Pep Total Protein Albumin Crossmatch 01/16/20 01/18/20 01/18/20 18:11 06:25 06:25 WBC RBC 3.15 L Hgb 9.4 L Hct 29.4 L MCV RDW 17.5 H Plt Count 135 L Lymph % (Auto) 3.8 L [place] % (Auto) Lymph # 0.2 L Seg Neutrophils % 88.8 H Seg Neuts % (Manual) Lymphocytes % (Manual) Nucleated RBC % Seg Neutrophils # Man Lymphocytes # (Manual) Monocytes # (Manual) Eosinophils # (Manual) PT INR D-Dimer Heparin Anti-Xa Level ABG pH ABG pO2 ABG HCO3 ABG O2 Saturation ABG Base Excess ABG Hemoglobin Oxyhemoglobin Sodium Potassium Chloride 96.8 L Carbon Dioxide BUN 26 H Creatinine 4.2 H Glucose 115 H POC Glucose 130 H Calcium 8.2 L Magnesium Ferritin Direct Bilirubin AST ALT Alkaline Phosphatase Lactate Dehydrogenase 537 H Troponin T C-Reactive Protein 17.10 H NT-Pro-B Natriuret Pep Total Protein Albumin Crossmatch 01/18/20 01/18/20 01/18/20 06:25 06:25 12:15 WBC RBC Hgb Hct MCV RDW Plt Count Lymph % (Auto) [place] % (Auto) Lymph # Seg Neutrophils % Seg Neuts % (Manual) Lymphocytes % (Manual) Nucleated RBC % Seg Neutrophils # Man Lymphocytes # (Manual) Monocytes # (Manual) Eosinophils # (Manual) PT INR D-Dimer 938.03 H Heparin Anti-Xa Level ABG pH ABG pO2 66.5 L ABG HCO3 30.1 H ABG O2 Saturation 93.2 L ABG Base Excess 4.6 H ABG Hemoglobin 10.0 L Oxyhemoglobin 91.3 L Sodium Potassium Chloride Carbon Dioxide BUN Creatinine Glucose POC Glucose Calcium Magnesium Ferritin 3105.0 H Direct Bilirubin AST ALT Alkaline Phosphatase Lactate Dehydrogenase Troponin T C-Reactive Protein NT-Pro-B Natriuret Pep Total Protein Albumin Crossmatch 01/20/20 01/20/20 01/20/20 07:37 07:37 07:37 WBC RBC Hgb Hct MCV RDW Plt Count Lymph % (Auto) [place] % (Auto) Lymph # Seg Neutrophils % Seg Neuts % (Manual) Lymphocytes % (Manual) Nucleated RBC % Seg Neutrophils # Man Lymphocytes # (Manual) Monocytes # (Manual) Eosinophils # (Manual) PT INR D-Dimer 2072.25 H Heparin Anti-Xa Level ABG pH ABG pO2 ABG HCO3 ABG O2 Saturation ABG Base Excess ABG Hemoglobin Oxyhemoglobin Sodium Potassium Chloride Carbon Dioxide BUN Creatinine Glucose POC Glucose Calcium Magnesium Ferritin 1826.0 H Direct Bilirubin AST ALT Alkaline Phosphatase Lactate Dehydrogenase 496 H Troponin T C-Reactive Protein 19.30 H NT-Pro-B Natriuret Pep Total Protein Albumin Crossmatch 01/20/20 01/21/20 01/21/20 17:30 03:59 17:35 WBC RBC Hgb Hct MCV RDW Plt Count Lymph % (Auto) [place] % (Auto) Lymph # Seg Neutrophils % Seg Neuts % (Manual) Lymphocytes % (Manual) Nucleated RBC % Seg Neutrophils # Man Lymphocytes # (Manual) Monocytes # (Manual) Eosinophils # (Manual) PT INR D-Dimer Heparin Anti-Xa Level ABG pH ABG pO2 61.1 L 67.4 L ABG HCO3 29.9 H 26.2 H ABG O2 Saturation 91.7 L 93.4 L ABG Base Excess 4.9 H ABG Hemoglobin 9.0 L 9.1 L Oxyhemoglobin 89.5 L 91.1 L Sodium 136 L Potassium Chloride Carbon Dioxide BUN 36 H Creatinine 4.9 H Glucose POC Glucose Calcium Magnesium Ferritin Direct Bilirubin AST ALT Alkaline Phosphatase Lactate Dehydrogenase Troponin T C-Reactive Protein NT-Pro-B Natriuret Pep Total Protein Albumin Crossmatch 01/21/20 01/22/20 01/22/20 Unknown 03:41 03:41 WBC RBC Hgb Hct MCV RDW Plt Count Lymph % (Auto) [place] % (Auto) Lymph # Seg Neutrophils % Seg Neuts % (Manual) Lymphocytes % (Manual) Nucleated RBC % Seg Neutrophils # Man Lymphocytes # (Manual) Monocytes # (Manual) Eosinophils # (Manual) PT INR D-Dimer Heparin Anti-Xa Level ABG pH 7.465 H ABG pO2 48.9 L ABG HCO3 26.6 H ABG O2 Saturation 85.7 L ABG Base Excess ABG Hemoglobin 10.4 L Oxyhemoglobin 83.5 L Sodium Potassium Chloride Carbon Dioxide BUN Creatinine Glucose POC Glucose Calcium Magnesium Ferritin 6071.0 H Direct Bilirubin AST ALT Alkaline Phosphatase Lactate Dehydrogenase 963 H Troponin T C-Reactive Protein 30.00 H NT-Pro-B Natriuret Pep Total Protein Albumin Crossmatch 01/22/20 01/22/20 01/22/20 03:41 07:47 11:20 WBC RBC Hgb Hct MCV RDW Plt Count Lymph % (Auto) [place] % (Auto) Lymph # Seg Neutrophils % Seg Neuts % (Manual) Lymphocytes % (Manual) Nucleated RBC % Seg Neutrophils # Man Lymphocytes # (Manual) Monocytes # (Manual) Eosinophils # (Manual) PT INR D-Dimer > 81202 H Heparin Anti-Xa Level ABG pH ABG pO2 66.7 L ABG HCO3 28.7 H ABG O2 Saturation 91.9 L ABG Base Excess ABG Hemoglobin 9.1 L Oxyhemoglobin 89.5 L Sodium Potassium Chloride 94.3 L Carbon Dioxide BUN 53 H Creatinine 6.5 H Glucose POC Glucose Calcium Magnesium Ferritin Direct Bilirubin AST ALT Alkaline Phosphatase Lactate Dehydrogenase Troponin T C-Reactive Protein NT-Pro-B Natriuret Pep Total Protein Albumin Crossmatch 01/22/20 01/22/20 01/23/20 11:49 Unknown 04:55 WBC 15.1 H RBC 3.05 L Hgb 8.8 L Hct 28.3 L MCV RDW 17.8 H Plt Count 125 L Lymph % (Auto) [place] % (Auto) Lymph # Seg Neutrophils % Seg Neuts % (Manual) Lymphocytes % (Manual) Nucleated RBC % Seg Neutrophils # Man Lymphocytes # (Manual) Monocytes # (Manual) Eosinophils # (Manual) PT INR D-Dimer Heparin Anti-Xa Level ABG pH 7.340 L ABG pO2 77.7 L 136.3 H ABG HCO3 27.6 H 28.8 H ABG O2 Saturation ABG Base Excess ABG Hemoglobin 9.3 L 10.9 L Oxyhemoglobin 94.2 L Sodium Potassium Chloride Carbon Dioxide BUN Creatinine Glucose POC Glucose Calcium Magnesium Ferritin Direct Bilirubin AST ALT Alkaline Phosphatase Lactate Dehydrogenase Troponin T C-Reactive Protein NT-Pro-B Natriuret Pep Total Protein Albumin Crossmatch 01/23/20 01/23/20 01/23/20 06:23 07:07 12:23 WBC RBC Hgb Hct MCV RDW Plt Count Lymph % (Auto) [place] % (Auto) Lymph # Seg Neutrophils % Seg Neuts % (Manual) Lymphocytes % (Manual) Nucleated RBC % Seg Neutrophils # Man Lymphocytes # (Manual) Monocytes # (Manual) Eosinophils # (Manual) PT INR D-Dimer Heparin Anti-Xa Level ABG pH ABG pO2 ABG HCO3 ABG O2 Saturation ABG Base Excess ABG Hemoglobin Oxyhemoglobin Sodium Potassium Chloride Carbon Dioxide BUN Creatinine Glucose POC Glucose 57 L 127 H 131 H Calcium Magnesium Ferritin Direct Bilirubin AST ALT Alkaline Phosphatase Lactate Dehydrogenase Troponin T C-Reactive Protein NT-Pro-B Natriuret Pep Total Protein Albumin Crossmatch 01/23/20 01/23/20 01/24/20 Unknown Unknown 04:00 WBC 16.2 H RBC 3.08 L Hgb 8.9 L Hct 28.6 L MCV RDW 17.8 H Plt Count 139 L Lymph % (Auto) [place] % (Auto) Lymph # Seg Neutrophils % Seg Neuts % (Manual) Lymphocytes % (Manual) Nucleated RBC % Seg Neutrophils # Man Lymphocytes # (Manual) Monocytes # (Manual) Eosinophils # (Manual) PT INR D-Dimer Heparin Anti-Xa Level < 0.10 L ABG pH ABG pO2 ABG HCO3 ABG O2 Saturation ABG Base Excess ABG Hemoglobin Oxyhemoglobin Sodium Potassium Chloride Carbon Dioxide BUN Creatinine Glucose POC Glucose Calcium Magnesium Ferritin 4195.0 H Direct Bilirubin AST ALT Alkaline Phosphatase Lactate Dehydrogenase Troponin T C-Reactive Protein NT-Pro-B Natriuret Pep Total Protein Albumin Crossmatch 01/24/20 01/24/20 01/24/20 04:00 04:00 04:00 WBC RBC Hgb Hct MCV RDW Plt Count Lymph % (Auto) [place] % (Auto) Lymph # Seg Neutrophils % Seg Neuts % (Manual) Lymphocytes % (Manual) Nucleated RBC % Seg Neutrophils # Man Lymphocytes # (Manual) Monocytes # (Manual) Eosinophils # (Manual) PT INR D-Dimer 5783.11 H Heparin Anti-Xa Level ABG pH 7.188 L* ABG pO2 70.8 L ABG HCO3 32.2 H ABG O2 Saturation 90.4 L ABG Base Excess ABG Hemoglobin 8.5 L Oxyhemoglobin 88.1 L Sodium Potassium Chloride Carbon Dioxide BUN Creatinine Glucose POC Glucose Calcium Magnesium Ferritin Direct Bilirubin AST ALT Alkaline Phosphatase Lactate Dehydrogenase 474 H Troponin T C-Reactive Protein 29.80 H NT-Pro-B Natriuret Pep Total Protein Albumin Crossmatch 01/24/20 01/24/20 01/24/20 05:20 05:51 09:14 WBC RBC Hgb Hct MCV RDW Plt Count Lymph % (Auto) [place] % (Auto) Lymph # Seg Neutrophils % Seg Neuts % (Manual) Lymphocytes % (Manual) Nucleated RBC % Seg Neutrophils # Man Lymphocytes # (Manual) Monocytes # (Manual) Eosinophils # (Manual) PT INR D-Dimer Heparin Anti-Xa Level ABG pH 7.214 L ABG pO2 71.7 L ABG HCO3 31.5 H ABG O2 Saturation 91.8 L ABG Base Excess ABG Hemoglobin 9.1 L Oxyhemoglobin 89.3 L Sodium Potassium Chloride Carbon Dioxide BUN Creatinine Glucose POC Glucose 50 L 53 L Calcium Magnesium Ferritin Direct Bilirubin AST ALT Alkaline Phosphatase Lactate Dehydrogenase Troponin T C-Reactive Protein NT-Pro-B Natriuret Pep Total Protein Albumin Crossmatch 01/24/20 01/24/20 01/24/20 15:10 18:04 21:10 WBC RBC Hgb Hct MCV RDW Plt Count Lymph % (Auto) [place] % (Auto) Lymph # Seg Neutrophils % Seg Neuts % (Manual) Lymphocytes % (Manual) Nucleated RBC % Seg Neutrophils # Man Lymphocytes # (Manual) Monocytes # (Manual) Eosinophils # (Manual) PT INR D-Dimer Heparin Anti-Xa Level ABG pH ABG pO2 ABG HCO3 ABG O2 Saturation ABG Base Excess ABG Hemoglobin Oxyhemoglobin Sodium Potassium Chloride Carbon Dioxide BUN Creatinine Glucose POC Glucose 114 H 51 L 144 H Calcium Magnesium Ferritin Direct Bilirubin AST ALT Alkaline Phosphatase Lactate Dehydrogenase Troponin T C-Reactive Protein NT-Pro-B Natriuret Pep Total Protein Albumin Crossmatch 01/24/20 01/25/20 01/25/20 Unknown 00:32 03:50 WBC 13.0 H RBC 3.10 L Hgb 9.2 L Hct 29.0 L MCV RDW 17.7 H Plt Count Lymph % (Auto) [place] % (Auto) Lymph # Seg Neutrophils % Seg Neuts % (Manual) 92.0 H Lymphocytes % (Manual) 5.0 L Nucleated RBC % Seg Neutrophils # Man 12.0 H Lymphocytes # (Manual) 0.7 L Monocytes # (Manual) Eosinophils # (Manual) PT INR D-Dimer Heparin Anti-Xa Level ABG pH 7.291 L ABG pO2 71.3 L ABG HCO3 30.6 H ABG O2 Saturation 93.6 L ABG Base Excess 3.3 H ABG Hemoglobin 8.1 L Oxyhemoglobin 91.2 L Sodium Potassium Chloride Carbon Dioxide BUN Creatinine Glucose POC Glucose 114 H Calcium Magnesium Ferritin Direct Bilirubin AST ALT Alkaline Phosphatase Lactate Dehydrogenase Troponin T C-Reactive Protein NT-Pro-B Natriuret Pep Total Protein Albumin Crossmatch 01/25/20 01/25/20 01/25/20 04:22 06:05 17:28 WBC RBC Hgb Hct MCV RDW Plt Count Lymph % (Auto) [place] % (Auto) Lymph # Seg Neutrophils % Seg Neuts % (Manual) Lymphocytes % (Manual) Nucleated RBC % Seg Neutrophils # Man Lymphocytes # (Manual) Monocytes # (Manual) Eosinophils # (Manual) PT INR D-Dimer Heparin Anti-Xa Level ABG pH 7.304 L ABG pO2 69.5 L ABG HCO3 29.7 H ABG O2 Saturation 93.2 L ABG Base Excess ABG Hemoglobin 8.7 L Oxyhemoglobin 90.7 L Sodium Potassium Chloride Carbon Dioxide BUN Creatinine Glucose POC Glucose 136 H 127 H Calcium Magnesium Ferritin Direct Bilirubin AST ALT Alkaline Phosphatase Lactate Dehydrogenase Troponin T C-Reactive Protein NT-Pro-B Natriuret Pep Total Protein Albumin Crossmatch 01/26/20 01/26/20 01/26/20 00:20 02:31 02:31 WBC RBC Hgb Hct MCV RDW Plt Count Lymph % (Auto) [place] % (Auto) Lymph # Seg Neutrophils % Seg Neuts % (Manual) Lymphocytes % (Manual) Nucleated RBC % Seg Neutrophils # Man Lymphocytes # (Manual) Monocytes # (Manual) Eosinophils # (Manual) PT INR D-Dimer Heparin Anti-Xa Level ABG pH ABG pO2 ABG HCO3 ABG O2 Saturation ABG Base Excess ABG Hemoglobin Oxyhemoglobin Sodium Potassium Chloride Carbon Dioxide BUN Creatinine Glucose POC Glucose 127 H Calcium Magnesium Ferritin 3764.0 H Direct Bilirubin AST ALT Alkaline Phosphatase Lactate Dehydrogenase 393 H Troponin T C-Reactive Protein 28.60 H NT-Pro-B Natriuret Pep Total Protein Albumin Crossmatch 01/26/20 01/26/20 01/26/20 02:31 04:45 05:24 WBC RBC Hgb Hct MCV RDW Plt Count Lymph % (Auto) [place] % (Auto) Lymph # Seg Neutrophils % Seg Neuts % (Manual) Lymphocytes % (Manual) Nucleated RBC % Seg Neutrophils # Man Lymphocytes # (Manual) Monocytes # (Manual) Eosinophils # (Manual) PT INR D-Dimer 3828.76 H Heparin Anti-Xa Level ABG pH ABG pO2 ABG HCO3 30.8 H ABG O2 Saturation ABG Base Excess 4.9 H ABG Hemoglobin 7.4 L Oxyhemoglobin 94.6 L Sodium Potassium Chloride Carbon Dioxide BUN Creatinine Glucose POC Glucose 121 H Calcium Magnesium Ferritin Direct Bilirubin AST ALT Alkaline Phosphatase Lactate Dehydrogenase Troponin T C-Reactive Protein NT-Pro-B Natriuret Pep Total Protein Albumin Crossmatch 01/26/20 01/26/20 01/26/20 10:40 12:36 18:10 WBC RBC Hgb Hct MCV RDW Plt Count Lymph % (Auto) [place] % (Auto) Lymph # Seg Neutrophils % Seg Neuts % (Manual) Lymphocytes % (Manual) Nucleated RBC % Seg Neutrophils # Man Lymphocytes # (Manual) Monocytes # (Manual) Eosinophils # (Manual) PT INR D-Dimer Heparin Anti-Xa Level ABG pH ABG pO2 ABG HCO3 ABG O2 Saturation ABG Base Excess ABG Hemoglobin Oxyhemoglobin Sodium Potassium Chloride Carbon Dioxide BUN Creatinine Glucose POC Glucose 119 H 126 H 159 H Calcium Magnesium Ferritin Direct Bilirubin AST ALT Alkaline Phosphatase Lactate Dehydrogenase Troponin T C-Reactive Protein NT-Pro-B Natriuret Pep Total Protein Albumin Crossmatch 01/27/20 01/27/20 01/27/20 03:45 06:15 12:19 WBC RBC Hgb Hct MCV RDW Plt Count Lymph % (Auto) [place] % (Auto) Lymph # Seg Neutrophils % Seg Neuts % (Manual) Lymphocytes % (Manual) Nucleated RBC % Seg Neutrophils # Man Lymphocytes # (Manual) Monocytes # (Manual) Eosinophils # (Manual) PT INR D-Dimer Heparin Anti-Xa Level ABG pH 7.307 L ABG pO2 91.1 H ABG HCO3 30.5 H ABG O2 Saturation ABG Base Excess 3.4 H ABG Hemoglobin 8.7 L Oxyhemoglobin 94.3 L Sodium Potassium Chloride Carbon Dioxide BUN Creatinine Glucose POC Glucose 147 H 164 H Calcium Magnesium Ferritin Direct Bilirubin AST ALT Alkaline Phosphatase Lactate Dehydrogenase Troponin T C-Reactive Protein NT-Pro-B Natriuret Pep Total Protein Albumin Crossmatch 01/27/20 01/28/20 01/28/20 17:42 00:29 04:34 WBC RBC Hgb Hct MCV RDW Plt Count Lymph % (Auto) [place] % (Auto) Lymph # Seg Neutrophils % Seg Neuts % (Manual) Lymphocytes % (Manual) Nucleated RBC % Seg Neutrophils # Man Lymphocytes # (Manual) Monocytes # (Manual) Eosinophils # (Manual) PT INR D-Dimer Heparin Anti-Xa Level ABG pH ABG pO2 ABG HCO3 ABG O2 Saturation ABG Base Excess ABG Hemoglobin Oxyhemoglobin Sodium Potassium Chloride Carbon Dioxide BUN Creatinine Glucose POC Glucose 149 H 178 H Calcium Magnesium Ferritin > 2000.0 H Direct Bilirubin AST ALT Alkaline Phosphatase Lactate Dehydrogenase Troponin T C-Reactive Protein NT-Pro-B Natriuret Pep Total Protein Albumin Crossmatch 01/28/20 01/28/20 01/28/20 04:34 04:34 05:20 WBC RBC Hgb Hct MCV RDW Plt Count Lymph % (Auto) [place] % (Auto) Lymph # Seg Neutrophils % Seg Neuts % (Manual) Lymphocytes % (Manual) Nucleated RBC % Seg Neutrophils # Man Lymphocytes # (Manual) Monocytes # (Manual) Eosinophils # (Manual) PT INR D-Dimer 2379 H Heparin Anti-Xa Level ABG pH 7.237 L ABG pO2 90.9 H ABG HCO3 29.1 H ABG O2 Saturation ABG Base Excess ABG Hemoglobin 7.5 L Oxyhemoglobin 94.0 L Sodium Potassium Chloride Carbon Dioxide BUN Creatinine Glucose POC Glucose Calcium Magnesium Ferritin Direct Bilirubin AST ALT Alkaline Phosphatase Lactate Dehydrogenase 434 H Troponin T C-Reactive Protein 9.70 H NT-Pro-B Natriuret Pep Total Protein Albumin Crossmatch 01/28/20 01/28/20 01/28/20 06:21 12:25 18:17 WBC RBC Hgb Hct MCV RDW Plt Count Lymph % (Auto) [place] % (Auto) Lymph # Seg Neutrophils % Seg Neuts % (Manual) Lymphocytes % (Manual) Nucleated RBC % Seg Neutrophils # Man Lymphocytes # (Manual) Monocytes # (Manual) Eosinophils # (Manual) PT INR D-Dimer Heparin Anti-Xa Level ABG pH ABG pO2 ABG HCO3 ABG O2 Saturation ABG Base Excess ABG Hemoglobin Oxyhemoglobin Sodium Potassium Chloride Carbon Dioxide BUN Creatinine Glucose POC Glucose 127 H 196 H 190 H Calcium Magnesium Ferritin Direct Bilirubin AST ALT Alkaline Phosphatase Lactate Dehydrogenase Troponin T C-Reactive Protein NT-Pro-B Natriuret Pep Total Protein Albumin Crossmatch 01/28/20 01/29/20 01/29/20 23:35 04:00 04:00 WBC 12.6 H RBC 3.01 L Hgb 9.2 L Hct 29.3 L MCV 98 H RDW 18.1 H Plt Count Lymph % (Auto) [place] % (Auto) Lymph # Seg Neutrophils % Seg Neuts % (Manual) Lymphocytes % (Manual) Nucleated RBC % Seg Neutrophils # Man Lymphocytes # (Manual) Monocytes # (Manual) Eosinophils # (Manual) PT INR D-Dimer Heparin Anti-Xa Level ABG pH ABG pO2 ABG HCO3 ABG O2 Saturation ABG Base Excess ABG Hemoglobin Oxyhemoglobin Sodium 132 L Potassium Chloride 90.1 L Carbon Dioxide BUN 50 H Creatinine 3.7 H Glucose 184 H POC Glucose 177 H Calcium Magnesium Ferritin Direct Bilirubin AST 93 H ALT Alkaline Phosphatase 678 H Lactate Dehydrogenase Troponin T C-Reactive Protein NT-Pro-B Natriuret Pep Total Protein Albumin 1.7 L Crossmatch 01/29/20 01/29/20 01/29/20 05:03 11:53 16:44 WBC RBC Hgb Hct MCV RDW Plt Count Lymph % (Auto) [place] % (Auto) Lymph # Seg Neutrophils % Seg Neuts % (Manual) Lymphocytes % (Manual) Nucleated RBC % Seg Neutrophils # Man Lymphocytes # (Manual) Monocytes # (Manual) Eosinophils # (Manual) PT INR D-Dimer Heparin Anti-Xa Level ABG pH ABG pO2 ABG HCO3 ABG O2 Saturation ABG Base Excess ABG Hemoglobin Oxyhemoglobin Sodium Potassium Chloride Carbon Dioxide BUN Creatinine Glucose POC Glucose 145 H 193 H 174 H Calcium Magnesium Ferritin Direct Bilirubin AST ALT Alkaline Phosphatase Lactate Dehydrogenase Troponin T C-Reactive Protein NT-Pro-B Natriuret Pep Total Protein Albumin Crossmatch 01/29/20 01/30/20 01/30/20 23:38 04:25 11:45 WBC RBC Hgb Hct MCV RDW Plt Count Lymph % (Auto) [place] % (Auto) Lymph # Seg Neutrophils % Seg Neuts % (Manual) Lymphocytes % (Manual) Nucleated RBC % Seg Neutrophils # Man Lymphocytes # (Manual) Monocytes # (Manual) Eosinophils # (Manual) PT INR D-Dimer Heparin Anti-Xa Level ABG pH 7.253 L ABG pO2 61.8 L ABG HCO3 29.7 H ABG O2 Saturation 90.1 L ABG Base Excess ABG Hemoglobin 8.2 L Oxyhemoglobin 87.5 L Sodium Potassium Chloride Carbon Dioxide BUN Creatinine Glucose POC Glucose 144 H 191 H Calcium Magnesium Ferritin Direct Bilirubin AST ALT Alkaline Phosphatase Lactate Dehydrogenase Troponin T C-Reactive Protein NT-Pro-B Natriuret Pep Total Protein Albumin Crossmatch 01/30/20 01/31/20 01/31/20 18:21 00:04 03:52 WBC RBC Hgb Hct MCV RDW Plt Count Lymph % (Auto) [place] % (Auto) Lymph # Seg Neutrophils % Seg Neuts % (Manual) Lymphocytes % (Manual) Nucleated RBC % Seg Neutrophils # Man Lymphocytes # (Manual) Monocytes # (Manual) Eosinophils # (Manual) PT INR D-Dimer Heparin Anti-Xa Level ABG pH ABG pO2 69.3 L ABG HCO3 29.4 H ABG O2 Saturation ABG Base Excess 3.7 H ABG Hemoglobin 10.8 L Oxyhemoglobin Sodium Potassium Chloride Carbon Dioxide BUN Creatinine Glucose POC Glucose 198 H 129 H Calcium Magnesium Ferritin Direct Bilirubin AST ALT Alkaline Phosphatase Lactate Dehydrogenase Troponin T C-Reactive Protein NT-Pro-B Natriuret Pep Total Protein Albumin Crossmatch 01/31/20 01/31/20 01/31/20 04:00 04:16 05:12 WBC 16.7 H RBC 2.73 L Hgb 8.3 L Hct 25.7 L MCV RDW 18.0 H Plt Count Lymph % (Auto) [place] % (Auto) Lymph # Seg Neutrophils % Seg Neuts % (Manual) 92.0 H Lymphocytes % (Manual) 2.0 L Nucleated RBC % Seg Neutrophils # Man 15.4 H Lymphocytes # (Manual) 0.3 L Monocytes # (Manual) 1.0 H Eosinophils # (Manual) PT INR D-Dimer Heparin Anti-Xa Level ABG pH ABG pO2 ABG HCO3 ABG O2 Saturation ABG Base Excess ABG Hemoglobin Oxyhemoglobin Sodium 130 L Potassium Chloride 90.1 L Carbon Dioxide BUN 61 H Creatinine 3.4 H Glucose 128 H POC Glucose 157 H Calcium Magnesium Ferritin Direct Bilirubin AST 103 H ALT 63 H Alkaline Phosphatase 534 H Lactate Dehydrogenase Troponin T C-Reactive Protein NT-Pro-B Natriuret Pep Total Protein Albumin 2.1 L Crossmatch 01/31/20 01/31/20 01/31/20 11:50 17:39 18:47 WBC RBC Hgb Hct MCV RDW Plt Count Lymph % (Auto) [place] % (Auto) Lymph # Seg Neutrophils % Seg Neuts % (Manual) Lymphocytes % (Manual) Nucleated RBC % Seg Neutrophils # Man Lymphocytes # (Manual) Monocytes # (Manual) Eosinophils # (Manual) PT INR D-Dimer Heparin Anti-Xa Level ABG pH ABG pO2 ABG HCO3 ABG O2 Saturation ABG Base Excess ABG Hemoglobin Oxyhemoglobin Sodium Potassium Chloride Carbon Dioxide BUN Creatinine Glucose POC Glucose 129 H 51 L 172 H Calcium Magnesium Ferritin Direct Bilirubin AST ALT Alkaline Phosphatase Lactate Dehydrogenase Troponin T C-Reactive Protein NT-Pro-B Natriuret Pep Total Protein Albumin Crossmatch 02/01/20 02/01/20 02/01/20 03:49 03:49 05:00 WBC 17.4 H RBC 2.68 L Hgb 8.0 L Hct 25.2 L MCV RDW 18.4 H Plt Count Lymph % (Auto) [place] % (Auto) Lymph # Seg Neutrophils % Seg Neuts % (Manual) Lymphocytes % (Manual) Nucleated RBC % Seg Neutrophils # Man Lymphocytes # (Manual) Monocytes # (Manual) Eosinophils # (Manual) PT INR D-Dimer Heparin Anti-Xa Level ABG pH 7.290 L ABG pO2 ABG HCO3 26.8 H ABG O2 Saturation ABG Base Excess ABG Hemoglobin 7.5 L Oxyhemoglobin 94.2 L Sodium 133 L Potassium Chloride 90.8 L Carbon Dioxide 21 L BUN 90 H Creatinine 4.6 H Glucose 145 H POC Glucose Calcium Magnesium Ferritin Direct Bilirubin AST ALT Alkaline Phosphatase Lactate Dehydrogenase Troponin T C-Reactive Protein NT-Pro-B Natriuret Pep Total Protein Albumin Crossmatch 02/01/20 02/01/20 02/01/20 05:34 06:09 12:42 WBC RBC Hgb Hct MCV RDW Plt Count Lymph % (Auto) [place] % (Auto) Lymph # Seg Neutrophils % Seg Neuts % (Manual) Lymphocytes % (Manual) Nucleated RBC % Seg Neutrophils # Man Lymphocytes # (Manual) Monocytes # (Manual) Eosinophils # (Manual) PT INR D-Dimer Heparin Anti-Xa Level ABG pH ABG pO2 ABG HCO3 ABG O2 Saturation ABG Base Excess ABG Hemoglobin Oxyhemoglobin Sodium Potassium Chloride Carbon Dioxide BUN Creatinine Glucose POC Glucose 166 H 143 H 218 H Calcium Magnesium Ferritin Direct Bilirubin AST ALT Alkaline Phosphatase Lactate Dehydrogenase Troponin T C-Reactive Protein NT-Pro-B Natriuret Pep Total Protein Albumin Crossmatch 04/02/01/20 02/02/20 17:38 18:24 05:00 WBC RBC Hgb Hct MCV RDW Plt Count Lymph % (Auto) [place] % (Auto) Lymph # Seg Neutrophils % Seg Neuts % (Manual) Lymphocytes % (Manual) Nucleated RBC % Seg Neutrophils # Man Lymphocytes # (Manual) Monocytes # (Manual) Eosinophils # (Manual) PT INR D-Dimer Heparin Anti-Xa Level ABG pH 7.317 L ABG pO2 ABG HCO3 28.2 H ABG O2 Saturation ABG Base Excess ABG Hemoglobin 10.1 L Oxyhemoglobin 94.0 L Sodium Potassium Chloride Carbon Dioxide BUN Creatinine Glucose POC Glucose 158 H 233 H Calcium Magnesium Ferritin Direct Bilirubin AST ALT Alkaline Phosphatase Lactate Dehydrogenase Troponin T C-Reactive Protein NT-Pro-B Natriuret Pep Total Protein Albumin Crossmatch 02/02/20 02/02/20 02/02/20 05:44 05:44 05:44 WBC 16.0 H RBC 2.85 L Hgb 8.3 L Hct 26.3 L MCV RDW 18.6 H Plt Count Lymph % (Auto) [place] % (Auto) Lymph # Seg Neutrophils % Seg Neuts % (Manual) 91.0 H Lymphocytes % (Manual) 2.0 L Nucleated RBC % Seg Neutrophils # Man 14.6 H Lymphocytes # (Manual) 0.3 L Monocytes # (Manual) Eosinophils # (Manual) PT INR D-Dimer Heparin Anti-Xa Level 0.77 H ABG pH ABG pO2 ABG HCO3 ABG O2 Saturation ABG Base Excess ABG Hemoglobin Oxyhemoglobin Sodium Potassium Chloride 95.5 L Carbon Dioxide BUN 57 H Creatinine 3.0 H Glucose 144 H POC Glucose Calcium 8.1 L Magnesium Ferritin Direct Bilirubin 0.3 H AST 179 H ALT 106 H Alkaline Phosphatase 557 H Lactate Dehydrogenase Troponin T C-Reactive Protein NT-Pro-B Natriuret Pep Total Protein 6.1 L Albumin 2.3 L Crossmatch 02/02/20 02/02/20 02/02/20 11:17 11:33 12:24 WBC RBC Hgb Hct MCV RDW Plt Count Lymph % (Auto) [place] % (Auto) Lymph # Seg Neutrophils % Seg Neuts % (Manual) Lymphocytes % (Manual) Nucleated RBC % Seg Neutrophils # Man Lymphocytes # (Manual) Monocytes # (Manual) Eosinophils # (Manual) PT INR D-Dimer Heparin Anti-Xa Level ABG pH ABG pO2 ABG HCO3 ABG O2 Saturation ABG Base Excess ABG Hemoglobin Oxyhemoglobin Sodium Potassium Chloride Carbon Dioxide BUN Creatinine Glucose POC Glucose < 40 L < 40 L 224 H Calcium Magnesium Ferritin Direct Bilirubin AST ALT Alkaline Phosphatase Lactate Dehydrogenase Troponin T C-Reactive Protein NT-Pro-B Natriuret Pep Total Protein Albumin Crossmatch 02/02/20 02/02/20 02/03/20 12:33 17:42 00:25 WBC RBC Hgb Hct MCV RDW Plt Count Lymph % (Auto) [place] % (Auto) Lymph # Seg Neutrophils % Seg Neuts % (Manual) Lymphocytes % (Manual) Nucleated RBC % Seg Neutrophils # Man Lymphocytes # (Manual) Monocytes # (Manual) Eosinophils # (Manual) PT INR D-Dimer Heparin Anti-Xa Level ABG pH ABG pO2 ABG HCO3 ABG O2 Saturation ABG Base Excess ABG Hemoglobin Oxyhemoglobin Sodium Potassium Chloride Carbon Dioxide BUN Creatinine Glucose 296 H POC Glucose 228 H < 40 L Calcium Magnesium Ferritin Direct Bilirubin AST ALT Alkaline Phosphatase Lactate Dehydrogenase Troponin T C-Reactive Protein NT-Pro-B Natriuret Pep Total Protein Albumin Crossmatch 02/03/20 02/03/20 02/03/20 00:27 03:59 03:59 WBC 22.9 H RBC 2.80 L Hgb 8.3 L Hct 27.4 L MCV 98 H RDW 19.2 H Plt Count Lymph % (Auto) [place] % (Auto) Lymph # Seg Neutrophils % Seg Neuts % (Manual) 92.0 H Lymphocytes % (Manual) 4.0 L Nucleated RBC % Seg Neutrophils # Man 21.1 H Lymphocytes # (Manual) 0.9 L Monocytes # (Manual) Eosinophils # (Manual) PT INR D-Dimer Heparin Anti-Xa Level ABG pH ABG pO2 ABG HCO3 ABG O2 Saturation ABG Base Excess ABG Hemoglobin Oxyhemoglobin Sodium 134 L Potassium 3.5 L Chloride Carbon Dioxide 21 L BUN 40 H Creatinine 2.6 H Glucose 180 H POC Glucose 198 H Calcium Magnesium Ferritin Direct Bilirubin AST ALT Alkaline Phosphatase Lactate Dehydrogenase Troponin T C-Reactive Protein NT-Pro-B Natriuret Pep Total Protein Albumin Crossmatch 02/03/20 02/03/20 02/03/20 04:48 05:00 12:21 WBC RBC Hgb Hct MCV RDW Plt Count Lymph % (Auto) [place] % (Auto) Lymph # Seg Neutrophils % Seg Neuts % (Manual) Lymphocytes % (Manual) Nucleated RBC % Seg Neutrophils # Man Lymphocytes # (Manual) Monocytes # (Manual) Eosinophils # (Manual) PT INR D-Dimer Heparin Anti-Xa Level ABG pH 7.315 L ABG pO2 97.3 H ABG HCO3 28.5 H ABG O2 Saturation ABG Base Excess ABG Hemoglobin 8.3 L Oxyhemoglobin 94.8 L Sodium Potassium Chloride Carbon Dioxide BUN Creatinine Glucose POC Glucose 182 H 201 H Calcium Magnesium Ferritin Direct Bilirubin AST ALT Alkaline Phosphatase Lactate Dehydrogenase Troponin T C-Reactive Protein NT-Pro-B Natriuret Pep Total Protein Albumin Crossmatch 02/03/20 02/03/20 02/04/20 17:43 23:36 04:50 WBC RBC Hgb Hct MCV RDW Plt Count Lymph % (Auto) [place] % (Auto) Lymph # Seg Neutrophils % Seg Neuts % (Manual) Lymphocytes % (Manual) Nucleated RBC % Seg Neutrophils # Man Lymphocytes # (Manual) Monocytes # (Manual) Eosinophils # (Manual) PT INR D-Dimer Heparin Anti-Xa Level ABG pH ABG pO2 ABG HCO3 ABG O2 Saturation ABG Base Excess ABG Hemoglobin Oxyhemoglobin Sodium 135 L Potassium Chloride 96.3 L Carbon Dioxide 21 L BUN 63 H Creatinine 4.1 H D Glucose 156 H POC Glucose 224 H 146 H Calcium 8.2 L Magnesium Ferritin Direct Bilirubin AST ALT Alkaline Phosphatase Lactate Dehydrogenase Troponin T C-Reactive Protein NT-Pro-B Natriuret Pep Total Protein Albumin Crossmatch 02/04/20 02/04/20 02/04/20 04:50 05:30 05:40 WBC 18.3 H RBC 2.31 L Hgb 6.9 L Hct 22.0 L MCV RDW 18.2 H Plt Count Lymph % (Auto) [place] % (Auto) Lymph # Seg Neutrophils % Seg Neuts % (Manual) 85.0 H Lymphocytes % (Manual) 4.0 L Nucleated RBC % 1.0 H Seg Neutrophils # Man 15.6 H Lymphocytes # (Manual) 0.7 L Monocytes # (Manual) Eosinophils # (Manual) PT INR D-Dimer Heparin Anti-Xa Level ABG pH 7.317 L ABG pO2 77.7 L ABG HCO3 27.4 H ABG O2 Saturation ABG Base Excess ABG Hemoglobin 8.0 L Oxyhemoglobin 94.5 L Sodium Potassium Chloride Carbon Dioxide BUN Creatinine Glucose POC Glucose 202 H Calcium Magnesium Ferritin Direct Bilirubin AST ALT Alkaline Phosphatase Lactate Dehydrogenase Troponin T C-Reactive Protein NT-Pro-B Natriuret Pep Total Protein Albumin Crossmatch 02/04/20 02/04/20 02/04/20 10:47 12:53 18:44 WBC RBC Hgb Hct MCV RDW Plt Count Lymph % (Auto) [place] % (Auto) Lymph # Seg Neutrophils % Seg Neuts % (Manual) Lymphocytes % (Manual) Nucleated RBC % Seg Neutrophils # Man Lymphocytes # (Manual) Monocytes # (Manual) Eosinophils # (Manual) PT INR D-Dimer Heparin Anti-Xa Level ABG pH ABG pO2 ABG HCO3 ABG O2 Saturation ABG Base Excess ABG Hemoglobin Oxyhemoglobin Sodium Potassium Chloride Carbon Dioxide BUN Creatinine Glucose POC Glucose 197 H 143 H Calcium Magnesium Ferritin Direct Bilirubin AST ALT Alkaline Phosphatase Lactate Dehydrogenase Troponin T C-Reactive Protein NT-Pro-B Natriuret Pep Total Protein Albumin Crossmatch See Detail 02/05/20 02/05/20 02/05/20 00:43 04:14 04:35 WBC RBC Hgb Hct MCV RDW Plt Count Lymph % (Auto) [place] % (Auto) Lymph # Seg Neutrophils % Seg Neuts % (Manual) Lymphocytes % (Manual) Nucleated RBC % Seg Neutrophils # Man Lymphocytes # (Manual) Monocytes # (Manual) Eosinophils # (Manual) PT INR D-Dimer Heparin Anti-Xa Level ABG pH 7.327 L ABG pO2 75.5 L ABG HCO3 30.1 H ABG O2 Saturation ABG Base Excess 3.5 H ABG Hemoglobin 8.4 L Oxyhemoglobin 93.8 L Sodium 134 L Potassium 3.3 L Chloride 97.3 L Carbon Dioxide BUN 38 H Creatinine 2.2 H Glucose 187 H POC Glucose 163 H Calcium 8.1 L Magnesium Ferritin Direct Bilirubin AST ALT Alkaline Phosphatase Lactate Dehydrogenase Troponin T C-Reactive Protein NT-Pro-B Natriuret Pep Total Protein Albumin Crossmatch 02/05/20 02/05/20 02/05/20 04:35 05:16 12:17 WBC 24.4 H RBC 2.75 L Hgb 7.9 L Hct 25.2 L MCV RDW 18.1 H Plt Count Lymph % (Auto) [place] % (Auto) Lymph # Seg Neutrophils % Seg Neuts % (Manual) 96.0 H Lymphocytes % (Manual) 1.0 L Nucleated RBC % Seg Neutrophils # Man 23.4 H Lymphocytes # (Manual) 0.2 L Monocytes # (Manual) Eosinophils # (Manual) 0.5 H PT INR D-Dimer Heparin Anti-Xa Level ABG pH ABG pO2 ABG HCO3 ABG O2 Saturation ABG Base Excess ABG Hemoglobin Oxyhemoglobin Sodium Potassium Chloride Carbon Dioxide BUN Creatinine Glucose POC Glucose 196 H 174 H Calcium Magnesium Ferritin Direct Bilirubin AST ALT Alkaline Phosphatase Lactate Dehydrogenase Troponin T C-Reactive Protein NT-Pro-B Natriuret Pep Total Protein Albumin Crossmatch 02/05/20 02/05/20 02/05/20 13:55 13:55 13:55 WBC RBC Hgb Hct MCV RDW Plt Count Lymph % (Auto) [place] % (Auto) Lymph # Seg Neutrophils % Seg Neuts % (Manual) Lymphocytes % (Manual) Nucleated RBC % Seg Neutrophils # Man Lymphocytes # (Manual) Monocytes # (Manual) Eosinophils # (Manual) PT INR D-Dimer 2896.73 H Heparin Anti-Xa Level ABG pH ABG pO2 ABG HCO3 ABG O2 Saturation ABG Base Excess ABG Hemoglobin Oxyhemoglobin Sodium Potassium Chloride Carbon Dioxide BUN Creatinine Glucose POC Glucose Calcium Magnesium Ferritin > 2000.0 H Direct Bilirubin AST ALT Alkaline Phosphatase Lactate Dehydrogenase 311 H Troponin T C-Reactive Protein 17.30 H NT-Pro-B Natriuret Pep Total Protein Albumin Crossmatch 02/05/20 02/05/20 02/06/20 17:20 21:53 04:50 WBC RBC Hgb Hct MCV RDW Plt Count Lymph % (Auto) [place] % (Auto) Lymph # Seg Neutrophils % Seg Neuts % (Manual) Lymphocytes % (Manual) Nucleated RBC % Seg Neutrophils # Man Lymphocytes # (Manual) Monocytes # (Manual) Eosinophils # (Manual) PT INR D-Dimer Heparin Anti-Xa Level ABG pH 7.349 L ABG pO2 64.5 L ABG HCO3 28.4 H ABG O2 Saturation 94.0 L ABG Base Excess ABG Hemoglobin 8.4 L Oxyhemoglobin 91.8 L Sodium Potassium Chloride Carbon Dioxide BUN Creatinine Glucose POC Glucose 191 H 200 H Calcium Magnesium Ferritin Direct Bilirubin AST ALT Alkaline Phosphatase Lactate Dehydrogenase Troponin T C-Reactive Protein NT-Pro-B Natriuret Pep Total Protein Albumin Crossmatch 02/06/20 02/06/20 02/06/20 05:55 05:55 05:58 WBC 22.4 H RBC 3.02 L Hgb 8.5 L Hct 27.6 L MCV RDW 18.8 H Plt Count Lymph % (Auto) [place] % (Auto) Lymph # Seg Neutrophils % Seg Neuts % (Manual) Lymphocytes % (Manual) Nucleated RBC % Seg Neutrophils # Man Lymphocytes # (Manual) Monocytes # (Manual) Eosinophils # (Manual) PT INR D-Dimer Heparin Anti-Xa Level ABG pH ABG pO2 ABG HCO3 ABG O2 Saturation ABG Base Excess ABG Hemoglobin Oxyhemoglobin Sodium 136 L Potassium Chloride 96.4 L Carbon Dioxide BUN 66 H Creatinine 3.6 H D Glucose 139 H POC Glucose 110 H Calcium Magnesium Ferritin Direct Bilirubin AST ALT Alkaline Phosphatase Lactate Dehydrogenase Troponin T C-Reactive Protein NT-Pro-B Natriuret Pep Total Protein Albumin Crossmatch 02/06/20 02/06/20 02/06/20 12:19 17:52 23:47 WBC RBC Hgb Hct MCV RDW Plt Count Lymph % (Auto) [place] % (Auto) Lymph # Seg Neutrophils % Seg Neuts % (Manual) Lymphocytes % (Manual) Nucleated RBC % Seg Neutrophils # Man Lymphocytes # (Manual) Monocytes # (Manual) Eosinophils # (Manual) PT INR D-Dimer Heparin Anti-Xa Level ABG pH ABG pO2 ABG HCO3 ABG O2 Saturation ABG Base Excess ABG Hemoglobin Oxyhemoglobin Sodium Potassium Chloride Carbon Dioxide BUN Creatinine Glucose POC Glucose 185 H 185 H 173 H Calcium Magnesium Ferritin Direct Bilirubin AST ALT Alkaline Phosphatase Lactate Dehydrogenase Troponin T C-Reactive Protein NT-Pro-B Natriuret Pep Total Protein Albumin Crossmatch 02/07/20 02/07/20 02/07/20 05:04 11:46 11:52 WBC RBC Hgb Hct MCV RDW Plt Count Lymph % (Auto) [place] % (Auto) Lymph # Seg Neutrophils % Seg Neuts % (Manual) Lymphocytes % (Manual) Nucleated RBC % Seg Neutrophils # Man Lymphocytes # (Manual) Monocytes # (Manual) Eosinophils # (Manual) PT INR D-Dimer Heparin Anti-Xa Level ABG pH ABG pO2 ABG HCO3 ABG O2 Saturation ABG Base Excess ABG Hemoglobin Oxyhemoglobin Sodium Potassium Chloride Carbon Dioxide BUN Creatinine Glucose POC Glucose 145 H 240 H 251 H Calcium Magnesium Ferritin Direct Bilirubin AST ALT Alkaline Phosphatase Lactate Dehydrogenase Troponin T C-Reactive Protein NT-Pro-B Natriuret Pep Total Protein Albumin Crossmatch 02/07/20 02/08/20 02/08/20 18:18 00:22 05:43 WBC RBC Hgb Hct MCV RDW Plt Count Lymph % (Auto) [place] % (Auto) Lymph # Seg Neutrophils % Seg Neuts % (Manual) Lymphocytes % (Manual) Nucleated RBC % Seg Neutrophils # Man Lymphocytes # (Manual) Monocytes # (Manual) Eosinophils # (Manual) PT INR D-Dimer Heparin Anti-Xa Level ABG pH ABG pO2 ABG HCO3 ABG O2 Saturation ABG Base Excess ABG Hemoglobin Oxyhemoglobin Sodium Potassium Chloride Carbon Dioxide BUN Creatinine Glucose POC Glucose 225 H 274 H 307 H Calcium Magnesium Ferritin Direct Bilirubin AST ALT Alkaline Phosphatase Lactate Dehydrogenase Troponin T C-Reactive Protein NT-Pro-B Natriuret Pep Total Protein Albumin Crossmatch 02/08/20 02/08/20 02/08/20 09:40 12:09 17:42 WBC RBC Hgb Hct MCV RDW Plt Count Lymph % (Auto) [place] % (Auto) Lymph # Seg Neutrophils % Seg Neuts % (Manual) Lymphocytes % (Manual) Nucleated RBC % Seg Neutrophils # Man Lymphocytes # (Manual) Monocytes # (Manual) Eosinophils # (Manual) PT INR D-Dimer Heparin Anti-Xa Level ABG pH 7.167 L* ABG pO2 ABG HCO3 30.3 H ABG O2 Saturation 92.6 L ABG Base Excess ABG Hemoglobin 8.8 L Oxyhemoglobin 90.4 L Sodium Potassium Chloride Carbon Dioxide BUN Creatinine Glucose POC Glucose 327 H 269 H Calcium Magnesium Ferritin Direct Bilirubin AST ALT Alkaline Phosphatase Lactate Dehydrogenase Troponin T C-Reactive Protein NT-Pro-B Natriuret Pep Total Protein Albumin Crossmatch 02/08/20 02/09/20 02/09/20 20:45 01:16 04:48 WBC 22.9 H RBC 2.86 L Hgb 8.3 L Hct 26.2 L MCV RDW 18.0 H Plt Count 507 H Lymph % (Auto) [place] % (Auto) Lymph # Seg Neutrophils % Seg Neuts % (Manual) Lymphocytes % (Manual) Nucleated RBC % Seg Neutrophils # Man Lymphocytes # (Manual) Monocytes # (Manual) Eosinophils # (Manual) PT INR D-Dimer Heparin Anti-Xa Level ABG pH ABG pO2 79.1 L ABG HCO3 31.7 H ABG O2 Saturation ABG Base Excess 4.6 H ABG Hemoglobin Oxyhemoglobin 93.5 L Sodium Potassium Chloride Carbon Dioxide BUN Creatinine Glucose POC Glucose 150 H Calcium Magnesium Ferritin Direct Bilirubin AST ALT Alkaline Phosphatase Lactate Dehydrogenase Troponin T C-Reactive Protein NT-Pro-B Natriuret Pep Total Protein Albumin Crossmatch 02/09/20 02/09/20 02/09/20 04:48 05:14 13:11 WBC RBC Hgb Hct MCV RDW Plt Count Lymph % (Auto) [place] % (Auto) Lymph # Seg Neutrophils % Seg Neuts % (Manual) Lymphocytes % (Manual) Nucleated RBC % Seg Neutrophils # Man Lymphocytes # (Manual) Monocytes # (Manual) Eosinophils # (Manual) PT INR D-Dimer Heparin Anti-Xa Level ABG pH ABG pO2 ABG HCO3 ABG O2 Saturation ABG Base Excess ABG Hemoglobin Oxyhemoglobin Sodium Potassium Chloride 93.9 L Carbon Dioxide BUN 59 H Creatinine 2.5 H Glucose 309 H POC Glucose 356 H 184 H Calcium Magnesium Ferritin Direct Bilirubin AST ALT Alkaline Phosphatase Lactate Dehydrogenase Troponin T C-Reactive Protein NT-Pro-B Natriuret Pep Total Protein Albumin Crossmatch 02/09/20 02/10/20 02/10/20 16:53 00:20 05:38 WBC RBC Hgb Hct MCV RDW Plt Count Lymph % (Auto) [place] % (Auto) Lymph # Seg Neutrophils % Seg Neuts % (Manual) Lymphocytes % (Manual) Nucleated RBC % Seg Neutrophils # Man Lymphocytes # (Manual) Monocytes # (Manual) Eosinophils # (Manual) PT INR D-Dimer Heparin Anti-Xa Level ABG pH ABG pO2 ABG HCO3 ABG O2 Saturation ABG Base Excess ABG Hemoglobin Oxyhemoglobin Sodium Potassium Chloride Carbon Dioxide BUN Creatinine Glucose POC Glucose 357 H 298 H 300 H Calcium Magnesium Ferritin Direct Bilirubin AST ALT Alkaline Phosphatase Lactate Dehydrogenase Troponin T C-Reactive Protein NT-Pro-B Natriuret Pep Total Protein Albumin Crossmatch 02/10/20 02/10/20 02/11/20 12:38 18:17 00:08 WBC RBC Hgb Hct MCV RDW Plt Count Lymph % (Auto) [place] % (Auto) Lymph # Seg Neutrophils % Seg Neuts % (Manual) Lymphocytes % (Manual) Nucleated RBC % Seg Neutrophils # Man Lymphocytes # (Manual) Monocytes # (Manual) Eosinophils # (Manual) PT INR D-Dimer Heparin Anti-Xa Level ABG pH ABG pO2 ABG HCO3 ABG O2 Saturation ABG Base Excess ABG Hemoglobin Oxyhemoglobin Sodium Potassium Chloride Carbon Dioxide BUN Creatinine Glucose POC Glucose 350 H 271 H 164 H Calcium Magnesium Ferritin Direct Bilirubin AST ALT Alkaline Phosphatase Lactate Dehydrogenase Troponin T C-Reactive Protein NT-Pro-B Natriuret Pep Total Protein Albumin Crossmatch 02/11/20 02/11/20 02/11/20 05:34 12:18 17:27 WBC RBC Hgb Hct MCV RDW Plt Count Lymph % (Auto) [place] % (Auto) Lymph # Seg Neutrophils % Seg Neuts % (Manual) Lymphocytes % (Manual) Nucleated RBC % Seg Neutrophils # Man Lymphocytes # (Manual) Monocytes # (Manual) Eosinophils # (Manual) PT INR D-Dimer Heparin Anti-Xa Level ABG pH ABG pO2 ABG HCO3 ABG O2 Saturation ABG Base Excess ABG Hemoglobin Oxyhemoglobin Sodium Potassium Chloride Carbon Dioxide BUN Creatinine Glucose POC Glucose 274 H 246 H 174 H Calcium Magnesium Ferritin Direct Bilirubin AST ALT Alkaline Phosphatase Lactate Dehydrogenase Troponin T C-Reactive Protein NT-Pro-B Natriuret Pep Total Protein Albumin Crossmatch 02/12/20 02/12/20 02/12/20 00:19 05:00 05:00 WBC 31.3 H RBC 2.79 L Hgb 8.0 L Hct 25.4 L MCV RDW 18.4 H Plt Count 566 H Lymph % (Auto) [place] % (Auto) Lymph # Seg Neutrophils % Seg Neuts % (Manual) Lymphocytes % (Manual) Nucleated RBC % Seg Neutrophils # Man Lymphocytes # (Manual) Monocytes # (Manual) Eosinophils # (Manual) PT INR D-Dimer Heparin Anti-Xa Level ABG pH ABG pO2 ABG HCO3 ABG O2 Saturation ABG Base Excess ABG Hemoglobin Oxyhemoglobin Sodium 136 L Potassium Chloride 95.6 L Carbon Dioxide BUN 102 H Creatinine 3.0 H Glucose 170 H POC Glucose 227 H Calcium Magnesium Ferritin Direct Bilirubin AST ALT Alkaline Phosphatase Lactate Dehydrogenase Troponin T C-Reactive Protein NT-Pro-B Natriuret Pep Total Protein Albumin Crossmatch 02/12/20 02/12/20 02/12/20 05:25 12:21 18:58 WBC RBC Hgb Hct MCV RDW Plt Count Lymph % (Auto) [place] % (Auto) Lymph # Seg Neutrophils % Seg Neuts % (Manual) Lymphocytes % (Manual) Nucleated RBC % Seg Neutrophils # Man Lymphocytes # (Manual) Monocytes # (Manual) Eosinophils # (Manual) PT INR D-Dimer Heparin Anti-Xa Level ABG pH ABG pO2 ABG HCO3 ABG O2 Saturation ABG Base Excess ABG Hemoglobin Oxyhemoglobin Sodium Potassium Chloride Carbon Dioxide BUN Creatinine Glucose POC Glucose 157 H 230 H 197 H Calcium Magnesium Ferritin Direct Bilirubin AST ALT Alkaline Phosphatase Lactate Dehydrogenase Troponin T C-Reactive Protein NT-Pro-B Natriuret Pep Total Protein Albumin Crossmatch 02/12/20 02/13/20 02/13/20 23:36 05:30 08:39 WBC RBC Hgb Hct MCV RDW Plt Count Lymph % (Auto) [place] % (Auto) Lymph # Seg Neutrophils % Seg Neuts % (Manual) Lymphocytes % (Manual) Nucleated RBC % Seg Neutrophils # Man Lymphocytes # (Manual) Monocytes # (Manual) Eosinophils # (Manual) PT INR D-Dimer Heparin Anti-Xa Level ABG pH ABG pO2 ABG HCO3 ABG O2 Saturation ABG Base Excess ABG Hemoglobin Oxyhemoglobin Sodium 135 L Potassium Chloride 93.8 L Carbon Dioxide BUN 72 H Creatinine 2.2 H Glucose 212 H POC Glucose 166 H 247 H Calcium Magnesium Ferritin Direct Bilirubin AST ALT Alkaline Phosphatase Lactate Dehydrogenase Troponin T C-Reactive Protein NT-Pro-B Natriuret Pep Total Protein Albumin Crossmatch 02/13/20 02/13/20 02/13/20 13:19 18:05 23:37 WBC RBC Hgb Hct MCV RDW Plt Count Lymph % (Auto) [place] % (Auto) Lymph # Seg Neutrophils % Seg Neuts % (Manual) Lymphocytes % (Manual) Nucleated RBC % Seg Neutrophils # Man Lymphocytes # (Manual) Monocytes # (Manual) Eosinophils # (Manual) PT INR D-Dimer Heparin Anti-Xa Level ABG pH ABG pO2 ABG HCO3 ABG O2 Saturation ABG Base Excess ABG Hemoglobin Oxyhemoglobin Sodium Potassium Chloride Carbon Dioxide BUN Creatinine Glucose POC Glucose 244 H 232 H 233 H Calcium Magnesium Ferritin Direct Bilirubin AST ALT Alkaline Phosphatase Lactate Dehydrogenase Troponin T C-Reactive Protein NT-Pro-B Natriuret Pep Total Protein Albumin Crossmatch 02/14/20 02/14/20 02/14/20 05:11 11:36 17:36 WBC RBC Hgb Hct MCV RDW Plt Count Lymph % (Auto) [place] % (Auto) Lymph # Seg Neutrophils % Seg Neuts % (Manual) Lymphocytes % (Manual) Nucleated RBC % Seg Neutrophils # Man Lymphocytes # (Manual) Monocytes # (Manual) Eosinophils # (Manual) PT INR D-Dimer Heparin Anti-Xa Level ABG pH ABG pO2 ABG HCO3 ABG O2 Saturation ABG Base Excess ABG Hemoglobin Oxyhemoglobin Sodium Potassium Chloride Carbon Dioxide BUN Creatinine Glucose POC Glucose 239 H 67 L 216 H Calcium Magnesium Ferritin Direct Bilirubin AST ALT Alkaline Phosphatase Lactate Dehydrogenase Troponin T C-Reactive Protein NT-Pro-B Natriuret Pep Total Protein Albumin Crossmatch 02/14/20 02/14/20 02/15/20 18:30 23:41 04:58 WBC 36.1 H RBC 3.53 L Hgb Hct MCV RDW 19.4 H Plt Count 750 H Lymph % (Auto) [place] % (Auto) Lymph # Seg Neutrophils % Seg Neuts % (Manual) Lymphocytes % (Manual) Nucleated RBC % Seg Neutrophils # Man Lymphocytes # (Manual) Monocytes # (Manual) Eosinophils # (Manual) PT INR D-Dimer Heparin Anti-Xa Level ABG pH ABG pO2 ABG HCO3 ABG O2 Saturation ABG Base Excess ABG Hemoglobin Oxyhemoglobin Sodium Potassium Chloride Carbon Dioxide BUN Creatinine Glucose POC Glucose 141 H 203 H Calcium Magnesium Ferritin Direct Bilirubin AST ALT Alkaline Phosphatase Lactate Dehydrogenase Troponin T C-Reactive Protein NT-Pro-B Natriuret Pep Total Protein Albumin Crossmatch 02/15/20 02/15/20 02/15/20 04:58 04:58 18:13 WBC RBC Hgb Hct MCV RDW Plt Count Lymph % (Auto) [place] % (Auto) Lymph # Seg Neutrophils % Seg Neuts % (Manual) Lymphocytes % (Manual) Nucleated RBC % Seg Neutrophils # Man Lymphocytes # (Manual) Monocytes # (Manual) Eosinophils # (Manual) PT 15.2 H INR 1.18 H D-Dimer Heparin Anti-Xa Level ABG pH ABG pO2 ABG HCO3 ABG O2 Saturation ABG Base Excess ABG Hemoglobin Oxyhemoglobin Sodium Potassium 5.4 H Chloride 94.5 L Carbon Dioxide BUN 102 H Creatinine 3.1 H Glucose POC Glucose 69 L Calcium Magnesium Ferritin Direct Bilirubin AST ALT Alkaline Phosphatase Lactate Dehydrogenase Troponin T C-Reactive Protein NT-Pro-B Natriuret Pep Total Protein Albumin Crossmatch 02/16/20 02/16/20 02/16/20 05:53 12:08 18:41 WBC RBC Hgb Hct MCV RDW Plt Count Lymph % (Auto) [place] % (Auto) Lymph # Seg Neutrophils % Seg Neuts % (Manual) Lymphocytes % (Manual) Nucleated RBC % Seg Neutrophils # Man Lymphocytes # (Manual) Monocytes # (Manual) Eosinophils # (Manual) PT INR D-Dimer Heparin Anti-Xa Level ABG pH ABG pO2 ABG HCO3 ABG O2 Saturation ABG Base Excess ABG Hemoglobin Oxyhemoglobin Sodium Potassium Chloride Carbon Dioxide BUN Creatinine Glucose POC Glucose 64 L 178 H 192 H Calcium Magnesium Ferritin Direct Bilirubin AST ALT Alkaline Phosphatase Lactate Dehydrogenase Troponin T C-Reactive Protein NT-Pro-B Natriuret Pep Total Protein Albumin Crossmatch 02/17/20 02/17/20 02/17/20 00:12 05:11 12:36 WBC RBC Hgb Hct MCV RDW Plt Count Lymph % (Auto) [place] % (Auto) Lymph # Seg Neutrophils % Seg Neuts % (Manual) Lymphocytes % (Manual) Nucleated RBC % Seg Neutrophils # Man Lymphocytes # (Manual) Monocytes # (Manual) Eosinophils # (Manual) PT INR D-Dimer Heparin Anti-Xa Level ABG pH ABG pO2 ABG HCO3 ABG O2 Saturation ABG Base Excess ABG Hemoglobin Oxyhemoglobin Sodium Potassium Chloride Carbon Dioxide BUN Creatinine Glucose POC Glucose 232 H 176 H 294 H Calcium Magnesium Ferritin Direct Bilirubin AST ALT Alkaline Phosphatase Lactate Dehydrogenase Troponin T C-Reactive Protein NT-Pro-B Natriuret Pep Total Protein Albumin Crossmatch 02/17/20 02/18/20 02/18/20 18:17 00:18 05:37 WBC RBC Hgb Hct MCV RDW Plt Count Lymph % (Auto) [place] % (Auto) Lymph # Seg Neutrophils % Seg Neuts % (Manual) Lymphocytes % (Manual) Nucleated RBC % Seg Neutrophils # Man Lymphocytes # (Manual) Monocytes # (Manual) Eosinophils # (Manual) PT INR D-Dimer Heparin Anti-Xa Level ABG pH ABG pO2 ABG HCO3 ABG O2 Saturation ABG Base Excess ABG Hemoglobin Oxyhemoglobin Sodium Potassium Chloride Carbon Dioxide BUN Creatinine Glucose POC Glucose 193 H 227 H 168 H Calcium Magnesium Ferritin Direct Bilirubin AST ALT Alkaline Phosphatase Lactate Dehydrogenase Troponin T C-Reactive Protein NT-Pro-B Natriuret Pep Total Protein Albumin Crossmatch Allied health notes reviewed: nursing
[2020-02-18] MEDS: HEPARIN 5,000 UNIT/1 ML VIAL SUB-Q SCH (09:47)
[2020-02-18] MEDS: INSULIN GLARGINE 100 UNITS/ML SUB-Q SCH (09:48)
[2020-02-18] MEDS: FAMOTIDINE 20 MG TAB PO SCH (10:14)
--- NOTE | 2020-02-18 10:39 | Progress Note ---
Assessment and Plan Assessment and plan: 64-year-old female with history of hyperlipidemia, end-stage renal disease on dialysis, hypertension and depression admitted on due to a week history of chest pain and shortness of breath and generalized body swelling. Patient had MELVIN and orthopnea prior to admission. In spite of dialysis, the patient did not feel better. No nausea vomiting reported on admission. No fever or chills. No exposure to coronavirus patients or family members. On arrival, temp 99-100.5. WBC normal with lymphopenia. Trop high. Blood culture negative. CXR steph interstitial infiltrates. The patient was admitted with suspected COVID- 19 which was later confirmed. Patient was noted to have elevated inflammatory markers of ferritin, CRP, LDH and d-dimer. The patient was admitted with diagnosis of acute hypoxemic respiratory failure secondary to COVID-19 infection/viral pneumonia, ARDS. Patient also had other complications with acute on chronic diastolic heart failure secondary to volume overload. Patient also underwent stress test that was negative for ischemia for chest pain. Bilateral pneumonia. Continue antibiotics per ID ARDS. Etiology secondary to above. Acute hypoxemic respiratory failure. Continue oxygen to maintain sats greater than 92% Appears stable on HFNC; wean FiO2 then flow Chest pain Stress test neg for ischemia GERD and costochondritis in differential diagnosis Volume overload s/p hemodialysis Nephrology consulted,following Acute on Chronic diastolic CHF exacerbation Secondary to volume overload End stage renal disease on dialysis Nephrology following T2DM (type 2 diabetes mellitus) Continue continue coverage Check hemoglobin A1c Hypertension Continue antihypertensives Hyponatremia Secondary to increased volume--dilutional DVT prophylaxis On heparin and GI prophylaxis 01/11 Covid 19 survey testing sent, nasal swab done 01/10 01/12 Patient has acute resp failure. may need Oxygen on dc. awaiting Covid result 01/13 Still has shortness of breath, awaiting Covid test. 01/14 Pt still dyspneic, await covid testing, Pulse ox 83% 01/16/2020. Patient remains dyspneic. Follow-up COVID testing. 01/17/2020. Patient still requiring large amounts of oxygen. Patient currently with 15 L satting at 95%. Patient with increased inflammatory markers. Follow-up chest x-ray today. 01/18/20--Patient still requiring large amounts of oxygen. Patient currently with 15 L %. Patient with increased inflammatory markers. 01/19/2020 very elevated inflammatory markers- ferritin> 2000, CRP >24, LDH> 600, d-dimer >1000 putting her at high risk for ARDS. Continue hydroxychloroquine 400 mg PO BID for 1 day then 200 mg PO BID for 4 days (total 5 days) with zinc 2 20 mg PO qday. Continue ceftriaxone. ContinueCOVID isolationprecautions per [facility] protocol. Continue serial Ferritin, LDH, D-Dimer, CRP every 48h 01/20/2020. Inflammatory markers remain elevated with ferritin 1826, LDH 496, CRP 19.3, and d-dimer 2072. Patient requiring high flow nasal cannula 40L, FiO2 80%. Pulmonary following. Continue antibiotics and Plaquenil. Continue COVID isolationprecautions per [facility] protocol. Patient has a high risk mortality and remains guarded. 01/21/2020. Continue antibiotics and Plaquenil. Continue COVID isolationprecautions per [facility] protocol. Maintain sats of 88% and greater. Still on HFNC, O2 weaned to 95% overnight. Sats documented at 98%. Pulmonary following and reports If patient progresses could give bipap a one hour trial to see if there is improvement, repeat ABG, if not would suggest elective intubation 01/22/2020 Patient still critically ill. Yesterday 01/20 had cardiopulmonary arrest so now intubated in ICU. Prognosis guarded. 01/23/2020 still critically ill. No more fever. Continue vent management. 01/24/20 Still critically ill, remain on vent. Continue current management. Will call . 01/25/20 Patient still critically ill. I called Davis Ramsey and gave update. He wants DNR status and says he will request withdrawal of care if patient does not get better after weekend. I discussed with Statistical Modeler. 01/26/20 patient still intubated, on vent. She means a DNR order. Discussed with Nurse 01/26 patient still critically ill, vent dependent. 01/27 patient still intubated, on vent. On levophed to keep MAP>65mmhg 01/29/2020 patient still intubated on mechanical ventilation. AC mode ventilation with rate 20, tidal volume 400, FiO2 45% and PEEP 12. patient with no fever. Patient currently with sedation of propofol. Patient received hemodialysis yesterday with approximately 3 L removed. 01/30/2020. Patient still on mechanical ventilation. AC mode ventilation with rate 20, tidal volume 400, FiO2 45% and PEEP 8. Patient with elevated alkaline phosphatase. Check abdominal ultrasound. 01/31/2020. Patient still on mechanical ventilation. PSV mode ventilation with FiO2 50% and PEEP 8 and PS=12. Follow-up abdominal ultrasound for elevated alkaline phosphatase 02/01/2020. Patient currently with PSV FiO2 50%, pressure support 12, PEEP 8. Continue PSV trials per pulmonary. Continue Levophed to maintain MAP greater than 65. Continue propofol for sedation. 02/02/2020. Patient currently on AC mode ventilation rate 20, tidal volume 450, FiO2 50% and PEEP of 6. ABG with pH of 7.31, PCO2 56.4, and PO2 85. Patient confirmed COVID-19 positive on 01/17/2020. Patient with MOSF and guarded progno sis. Follow-up abdominal ultrasound (ordered 3 days ago) for elevated alkaline phosphatase and fevers. 02/03/2020. Patient continues on mechanical ventilation AC mode with rate 20, tidal volume 450 and PEEP of 8. Patient still with temperature 100.5. Patient off sedation but requiring Levophed at 2 mics. Patient with an episode of hypoglycemia yesterday requiring D5 half-normal. Continue to monitor for hypoglycemia. Patient with MOSF and guarded prognosis. Follow-up abdominal ultrasound (ordered 4 days ago) for elevated alkaline phosphatase and fevers. 02/04/2020. Patient continues on mechanical ventilation AC mode with rate 20, tidal volume 450, FiO2 50% and PEEP of 8. Patient continues to have fevers. Patient currently on Levophed. Continue pressors to maintain map greater than 65. Hemoglobin 6.9-1 unit PRBCs ordered. Patient may be able to wean off of Levophed with volume resuscitation of PRBCs. Follow-up abdominal ultrasound (ordered 5 days ago) for elevated alkaline phosphatase and fevers. Patient's prognosis remains guarded. 02/05/2020 patient with covid-19 infection with acute resp failure, intubated, still on vent. Now off Levophed since 02/0302/06/2020 patient with Covid-19 infection. fever yesterday, none today. Continuje current management. Prognosis guarded. 02/07/2020 patient with Covid-19 infection. Still intubated, on vent. Ongoig fever. DNR code status. prognosis remains guarded. 02/08/2020 patient with Covid-19 infection. Still intubated. Ongoing weaning attempts. I called and gave update to , Mr. Davis Medina yesterday. 02/09/2020 patient with Covid-19. No fever X 48 hrs. Repeat covid-19 test negative. I discussed with yesterday 02/08/20. 02/10/2020 Patient with Covid-19. No more fever 02/11/2020 Patient with Covid 19 infection,still intubated, on vent. Plan is to arrange transfer o [place], case worker working on it. 02/12/2020. Continue steroids for 7 days followed by taper per ID recommendations. Antibiotics completed. Patient will likely need trach and LTAC placement. 02/13/2020. I attempted to call her Davis Ramsey to follow-up with regards to consent for trach and PEG. No answer. Await decision in regards to further goals of care. I discussed the case with pulmonary. Continu e PSB trials. Continue hemodialysis per renal. 02/14/2020. Patient continues to remain on mechanical ventilation, AC mode with rate 20, tidal volume 450, FiO2 35% and PEEP of 6. I had a discussion with the spouse Davis Ramsey and he informed that he is willing to move forward with tracheostomy and PEG placement. I have called the surgeon to reevaluate. 02/15/2020. Patient for trach and PEG placement today. Postoperatively, patient remained stable, patient will be transferred to LTAC facility potentially tomorrow. 02/16/2020. Patient still on mechanical ventilation with AC mode, rate 20, tidal volume 450 and FiO2 30%. Patient will be transferred to select LTAC facility when bed available. 02/17/2020. Patient still on mechanical ventilation with AC mode, rate 20, tidal volume 450 and FiO2 30%. Patient will be transferred to select LTAC facility when bed available. 02/18/2020. Patient still on mechanical ventilation with AC mode, rate 20, tidal volume 450 and FiO2 30%. Patient will be transferred to select LTAC facility potentially today. The high probability of a clinically significant, sudden or life threatening deterioration of the [immunologic and respiratory] system(s) required my full and direct attention, intervention and personal management. The aggregate criti nick care time was [31] minutes. This time is in addition to time spent performing reported procedures but includes the following: [x] Data Review and interpretation [x] Patient assessment and monitoring of vital signs [x] Documentation [x] Medication orders and management - Patient Problems (1) Toxic metabolic encephalopathy Current Visit: Yes Status: Acute (2) ARDS (adult respiratory distress syndrome) Current Visit: Yes Status: Acute (3) Anemia in CKD (chronic kidney disease) Current Visit: Yes Status: Acute Qualifiers: Chronic kidney disease stage: on chronic dialysis Qualified Code(s): N18.6 - End stage renal disease; D63.1 - Anemia in chronic kidney disease; Z99.2 - Dependence on renal dialysis (4) Pneumonia due to COVID-19 virus Current Visit: Yes Status: Acute (5) Sepsis with hypotension Current Visit: Yes Status: Acute (6) T2DM (type 2 diabetes mellitus) Current Visit: Yes Status: Acute Qualifiers: Diabetes mellitus intermediate insulin use: unspecified intermediate insulin use status (7) Hypertension Current Visit: Yes Status: Chronic Qualifiers: Hypertension type: essential hypertension Qualified Code(s): I10 - Essential (primary) hypertension (8) Acute respiratory failure with hypoxia Current Visit: No Status: Acute (9) COPD exacerbation Current Visit: No Status: Acute (10) Elevated troponin Current Visit: No Status: Acute (11) Hyperkalemia Current Visit: No Status: Acute (12) Hyponatremia Current Visit: No Status: Acute (13) Type 2 diabetes mellitus with diabetic nephropathy Current Visit: No Status: Acute (14) End stage renal disease on dialysis Current Visit: No Status: Chronic (15) NSTEMI (non-ST elevated myocardial infarction) Current Visit: No Status: Chronic (16) T2DM (type 2 diabetes mellitus) Current Visit: No Status: Chronic Qualifiers: Diabetes mellitus intermediate insulin use: unspecified remote 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 Hospitalist Physical - Constitutional Vitals: Temp Pulse Resp BP Pulse Ox 98.2 F 89 24 119/68 100 02/18/20 08:00 02/18/20 09:45 02/18/20 08:00 02/18/20 09:45 02/18/20 09:00 General appearance: Present: no acute distress, well-nourished - EENT Eyes: Present: PERRL, EOM intact ENT: hearing intact, clear oral mucosa, dentition normal - Neck Neck: Present: supple, normal ROM - Respiratory Respiratory effort: normal Respiratory: bilateral: CTA - Cardiovascular Rhythm: regular Heart Sounds: Present: S1 & S2. Absent: gallop, rub - Extremities Extremities: no ischemia, No edema, Full ROM - Abdominal General gastrointestinal: soft, non-tender, non-distended, normal bowel sounds - Integumentary Integumentary: Present: clear, warm, dry - Neurologic Neurologic: CNII-XII intact, moves all extremities BREEZY score - Breezy Score Age > 65: (1) Yes Aspirin use within the Past 7 Days: (1) Yes 3 or more CAD Risk Factors: (1) Yes 2 or more Angina events in past 24 hrs: (1) Yes Known CAD with more than 50% Stenosis: (0) No Elevated Cardiac Markers: (0) No ST Deviation Greater than 0.5mm: (0) No BREEZY Score: 4 Results - Labs CBC & Chem 7: 02/15/20 04:58 02/15/20 04:58 Labs: Laboratory Last Values WBC 36.1 K/mm3 (4.5-11.0) H 02/15/20 04:58 RBC 3.53 M/mm3 (3.65-5.03) L 02/15/20 04:58 Hgb 10.2 gm/dl (10.1-14.3) 02/15/20 04:58 Hct 32.7 % (30.3-42.9) D 02/15/20 04:58 MCV 93 fl (79-97) 02/15/20 04:58 MCH 29 pg (28-32) 02/15/20 04:58 MCHC 31 % (30-34) 02/15/20 04:58 RDW 19.4 % (13.2-15.2) H 02/15/20 04:58 Plt Count 750 K/mm3 (140-440) H 02/15/20 04:58 Lymph % (Auto) Bobbin Fixer 02/03/20 03:59 [place] % (Auto) Bobbin Fixer 02/03/20 03:59 Eos % (Auto) Bobbin Fixer 02/03/20 03:59 Baso % (Auto) Bobbin Fixer 02/03/20 03:59 Lymph # Bobbin Fixer 02/03/20 03:59 [place] # Bobbin Fixer 02/03/20 03:59 Eos # Bobbin Fixer 02/03/20 03:59 Baso # Bobbin Fixer 02/03/20 03:59 Add Manual Diff Complete 02/05/20 04:35 Total Counted 100 02/05/20 04:35 Seg Neutrophils % Bobbin Fixer 02/05/20 04:35 Seg Neuts % (Manual) 96.0 % (40.0-70.0) H 02/05/20 04:35 Band Neutrophils % 0 % 02/05/20 04:35 Lymphocytes % (Manual) 1.0 % (13.4-35.0) L 02/05/20 04:35 Reactive Lymphs % (Man) 0 % 02/05/20 04:35 Monocytes % (Manual) 1.0 % (0.0-7.3) 02/05/20 04:35 Eosinophils % (Manual) 2.0 % (0.0-4.3) 02/05/20 04:35 Basophils % (Manual) 0 % (0.0-1.8) 02/05/20 04:35 Metamyelocytes % 0 % 02/05/20 04:35 Myelocytes % 0 % 02/05/20 04:35 Promyelocytes % 0 % 02/05/20 04:35 Blast Cells % 0 % 02/05/20 04:35 Nucleated RBC % Not Reportable 02/05/20 04:35 Seg Neutrophils # Bobbin Fixer 02/03/20 03:59 Seg Neutrophils # Man 23.4 K/mm3 (1.8-7.7) H 02/05/20 04:35 Band Neutrophils # 0.0 K/mm3 02/05/20 04:35 Lymphocytes # (Manual) 0.2 K/mm3 (1.2-5.4) L 02/05/20 04:35 Abs React Lymphs (Man) 0.0 K/mm3 02/05/20 04:35 Monocytes # (Manual) 0.2 K/mm3 (0.0-0.8) 02/05/20 04:35 Eosinophils # (Manual) 0.5 K/mm3 (0.0-0.4) H 02/05/20 04:35 Basophils # (Manual) 0.0 K/mm3 (0.0-0.1) 02/05/20 04:35 Metamyelocytes # 0.0 K/mm3 02/05/20 04:35 Myelocytes # 0.0 K/mm3 02/05/20 04:35 Promyelocytes # 0.0 K/mm3 02/05/20 04:35 Blast Cells # 0.0 K/mm3 02/05/20 04:35 WBC Morphology Not Reportable 02/05/20 04:35 Hypersegmented Neuts Not Reportable 02/05/20 04:35 Hyposegmented Neuts Not Reportable 02/05/20 04:35 Hypogranular Neuts Not Reportable 02/05/20 04:35 Smudge Cells Not Reportable 02/05/20 04:35 Toxic Granulation Not Reportable 02/05/20 04:35 Toxic Vacuolation Not Reportable 02/05/20 04:35 Dohle Bodies Not Reportable 02/05/20 04:35 Pelger-Huet Anomaly Not Reportable 02/05/20 04:35 Armando Rods Not Reportable 02/05/20 04:35 Platelet Estimate Consistent w auto 02/05/20 04:35 Clumped Platelets Not Reportable 02/05/20 04:35 Plt Clumps, EDTA Not Reportable 02/05/20 04:35 Large Platelets Not Reportable 02/05/20 04:35 Giant Platelets Not Reportable 02/05/20 04:35 Platelet Satelliting Not Reportable 02/05/20 04:35 Plt Morphology Comment Not Reportable 02/05/20 04:35 RBC Morphology Not Reportable 02/05/20 04:35 Dimorphic RBCs Not Reportable 02/05/20 04:35 Polychromasia Not Reportable 02/05/20 04:35 Hypochromasia Rare 02/05/20 04:35 Poikilocytosis Not Reportable 02/05/20 04:35 Anisocytosis Few 02/05/20 04:35 Microcytosis Not Reportable 02/05/20 04:35 Macrocytosis Rare 02/05/20 04:35 Spherocytes Not Reportable 02/05/20 04:35 Pappenheimer Bodies Not Reportable 02/05/20 04:35 Sickle Cells Not Reportable 02/05/20 04:35 Target Cells Not Reportable 02/05/20 04:35 Tear Drop Cells Not Reportable 02/05/20 04:35 Ovalocytes Not Reportable 02/05/20 04:35 Helmet Cells Not Reportable 02/05/20 04:35 [place] Bodies Not Reportable 02/05/20 04:35 [place] Rings Not Reportable 02/05/20 04:35 [place] Cells Not Reportable 02/05/20 04:35 Bite Cells Not Reportable 02/05/20 04:35 Crenated Cell Not Reportable 02/05/20 04:35 Elliptocytes Not Reportable 02/05/20 04:35 Acanthocytes (Spur) Not Reportable 02/05/20 04:35 Rouleaux Not Reportable 02/05/20 04:35 Hemoglobin C Crystals Not Reportable 02/05/20 04:35 Schistocytes Not Reportable 02/05/20 04:35 Malaria parasites Not Reportable 02/05/20 04:35 Ney Bodies Not Reportable 02/05/20 04:35 Hem Pathologist Commnt No 02/05/20 04:35 PT 15.2 Sec. (12.2-14.9) H 02/15/20 04:58 INR 1.18 (0.87-1.13) H 02/15/20 04:58 APTT 31.5 Sec. (24.2-36.6) 01/09/20 12:55 D-Dimer 2896.73 ng/mlDDU (0-234) H 02/05/20 13:55 Heparin Anti-Xa Level 0.77 U.I./ml (0.3-0.7) H 02/02/20 05:44 ABG pH 7.351 pH Units (7.350-7.450) 02/08/20 20:45 ABG pCO2 58.7 mm Hg 02/08/20 20:45 ABG pO2 79.1 mm Hg (80.0-90.0) L 02/08/20 20:45 ABG HCO3 31.7 mmol/L (20.0-26.0) H 02/08/20 20:45 ABG O2 Saturation 95.6 % (95.0-99.0) 02/08/20 20:45 ABG O2 Content 17.0 (0.0-44) 02/08/20 20:45 ABG Base Excess 4.6 mmol/L (-2.0-3.0) H 02/08/20 20:45 ABG Hemoglobin 12.9 gm/dl (12.0-16.0) 02/08/20 20:45 ABG Carboxyhemoglobin 1.7 % (0.0-5.0) 02/08/20 20:45 ABG Methemoglobin 0.5 % (0.0-1.5) 02/08/20 20:45 Oxyhemoglobin 93.5 % (95.0-99.0) L 02/08/20 20:45 FiO2 40 % 02/08/20 20:45 Sodium 140 mmol/L (137-145) 02/15/20 04:58 Potassium 5.4 mmol/L (3.6-5.0) H 02/15/20 04:58 Chloride 94.5 mmol/L (98-107) L 02/15/20 04:58 Carbon Dioxide 25 mmol/L (22-30) 02/15/20 04:58 Anion Gap 26 mmol/L 02/15/20 04:58 BUN 102 mg/dL (7-17) H 02/15/20 04:58 Creatinine 3.1 mg/dL (0.7-1.2) H 02/15/20 04:58 Estimated GFR 18 ml/min 02/15/20 04:58 BUN/Creatinine Ratio 33 % 02/15/20 04:58 Glucose 87 mg/dL (65-100) 02/15/20 04:58 POC Glucose 168 (70-105) H 02/18/20 05:37 Hemoglobin A1c 5.0 % (4-6) 01/10/20 06:54 Calcium 9.6 mg/dL (8.4-10.2) 02/15/20 04:58 Phosphorus 3.30 mg/dL (2.5-4.5) 01/12/20 16:01 Magnesium 2.00 mg/dL (1.7-2.3) 01/13/20 06:11 Ferritin > 2000.0 ng/mL (13.0-400.0) H 02/05/20 13:55 Total Bilirubin 0.50 mg/dL (0.1-1.2) 02/02/20 05:44 Direct Bilirubin 0.3 mg/dL (0-0.2) H 02/02/20 05:44 Indirect Bilirubin 0.2 mg/dL 02/02/20 05:44 AST 179 units/L (5-40) H 02/02/20 05:44 ALT 106 units/L (7-56) H 02/02/20 05:44 Alkaline Phosphatase 557 units/L (35-129) H 02/02/20 05:44 Lactate Dehydrogenase 311 units/L (91-180) H 02/05/20 13:55 Troponin T 0.315 ng/mL (0.00-0.029) H* 01/10/20 06:54 C-Reactive Protein 17.30 mg/dL (0.00-1.30) H 02/05/20 13:55 NT-Pro-B Natriuret Pep 72162 pg/mL (0-900) H 01/09/20 12:55 Total Protein 6.1 g/dL (6.3-8.2) L 02/02/20 05:44 Albumin 2.3 g/dL (3.9-5) L 02/02/20 05:44 Albumin/Globulin Ratio 0.6 % 02/02/20 05:44 Triglycerides 56 mg/dL (2-149) 01/30/20 04:04 Cholesterol 123 mg/dL (50-199) 01/09/20 12:55 LDL Cholesterol Direct 66 mg/dL (50-130) 01/09/20 12:55 HDL Cholesterol 47 mg/dL (40-59) 01/09/20 12:55 Cholesterol/HDL Ratio 2.61 % 01/09/20 12:55 Random Vancomycin 23.9 ug/mL (0-40.0) 02/08/20 04:56 Coronavirus (PCR) Negative (Negative) 02/08/20 10:06 Hepatitis A IgM Ab Non-reactive (NonReactive) 01/21/20 23:40 Hep Bs Antigen Non-reactive (Negative) 01/21/20 23:40 Hep B Core IgM Ab Non-reactive (NonReactive) 01/21/20 23:40 Hepatitis C Antibody Non-reactive (NonReactive) 01/21/20 23:40 Miscellaneous Test See scanned result 01/11/20 Unknown Miscellaneous Test See scanned result 01/11/20 Unknown Blood Type O POSITIVE 02/04/20 10:47 Antibody Screen Negative 02/04/20 10:47 Crossmatch See Detail 02/04/20 10:47 Pleitez/IV: Voiding Method Indwelling Catheter IV Catheter Type [Left Chest] Infusaport IV Catheter Type [Right Peripheral IV External Jugular] IV Catheter Type [Left INT / Saline Lock External Jugular] IV Catheter Type [Left Upper AV Graft arm] Active Medications - Current Medications Current Medications: Generic Name Dose Route Start Last Admin Trade Name Freq PRN Reason Stop Dose Admin Acetaminophen 650 mg 01/09/20 16:33 02/18/20 00:40 Tylenol PO 650 mg Q4H PRN Administration Pain MILD(1-3)/Fever >100.5/MEANS Lipase/Protease/Amylase 1 each 01/23/20 14:28 02/07/20 13:[address] 10,500 Unit FEEDTUBE 1 each PRN PRN Administration For Clogged Feeding Tube Atorvastatin Calcium 40 mg 01/09/20 22:00 02/17/20 22:46 Lipitor PO 40 mg QHS PHILLY Administration Dextrose 50 ml 01/23/20 07:26 02/16/20 06:03 D50w (25gm) Syringe IV 50 ml Q30MIN PRN Administration BLOOD GLUCOSE < 70 Dextrose 25 ml 01/24/20 08:58 01/24/20 13:41 D50w (25gm) Syringe IV 25 ml Q4H PRN Administration BG < 80 MG/DL Docusate Sodium 100 mg 01/25/20 22:00 02/18/20 09:47 Colace PO 100 mg BID PHILLY Administration Epoetin Helio 20,000 unit 02/04/20 12:00 02/04/20 13:00 Procrit SUB-Q 20,000 unit SILVERIO PHILLY Administration Famotidine 20 mg 01/09/20 22:00 02/17/20 09:50 Pepcid PO 20 mg DAILY PHILLY Administration Heparin Sodium (Porcine) 5,000 unit 02/07/20 10:00 02/18/20 09:47 Heparin SUB-Q 5,000 unit Q12HR PHILLY Administration Norepinephrine 4 mg in 250 mls @ 7.5 mls/hr 01/21/20 18:00 02/11/20 15:00 Levophed Drip 4 Mg/Ns 250 Ml IV 0 mcg/min TITR PHILLY 0 mls/hr Titration Protocol 2 MCG/MIN Sodium Chloride 100 mls @ 999 mls/hr 02/12/20 08:17 Nacl 0.9% IV SILVERIO PRN Hypotension Sodium Chloride 1,000 mls @ 50 mls/hr 02/15/20 08:00 Nacl 0.9% 1000 Ml IV DIRECT PHILLY Insulin Glargine 15 units 02/10/20 13:00 02/18/20 09:48 Lantus SUB-Q 15 units DAILY PHILLY Administration Insulin Human Lispro 0 unit 02/07/20 12:00 02/18/20 05:38 Humalog SUB-Q 2 unit Q6HR PHILLY Administration Protocol Lorazepam 2 mg 01/23/20 15:36 Ativan IV Q10MIN PRN Agitation Methylprednisolone Sodium Succinate 20 mg 02/14/20 14:00 02/18/20 05:37 Solu-Medrol IV 20 mg Q8HR PHILLY Administration Ondansetron HCl 4 mg 01/09/20 16:33 01/20/20 10:19 Zofran IV 4 mg Q8H PRN Administration Nausea And Vomiting Simple Syrup 15 ml 01/23/20 14:28 02/14/20 12:02 Simple Syrup FEEDTUBE 15 ml PRN PRN Administration Hypoglycemia Simple Syrup 30 ml 01/23/20 14:28 Simple Syrup FEEDTUBE PRN PRN Hypoglycemia Sodium Bicarbonate 325 mg 01/23/20 14:28 Sodium Bicarbonate FEEDTUBE PRN PRN For Clogged Feeding Tube Sodium Chloride 10 ml 01/09/20 22:00 02/18/20 09:49 Sodium Chloride Flush Syringe 10 Ml IV 10 ml BID PHILLY Administration Sodium Chloride 10 ml 01/09/20 16:33 Sodium Chloride Flush Syringe 10 Ml IV PRN PRN LINE FLUSH Nutrition/Malnutrition Assess - Dietary Evaluation Nutrition/Malnutrition Findings: Nutrition Notes Start: 01/17/20 13:49 Freq: Status: Active Protocol: Document 02/15/20 09:22 LP (Rec: 02/15/20 09:24 LP [id number]) Nutrition Notes Initial or Follow up Brief Note Current Diagnosis CKD (stage V CKD),Diabetes, Hypertension,Heart Failure, Respiratory Failure Other Pertinent Diagnosis on HD, Bilat pneu, COVID-19 (+ ) Current Diet NPO Weight Status Appropriate Subjective/Other Information Pt NPO for trach and PEG. Nutrition Intervention Follow-Up By: 02/18/20 Additional Comments Follow for TF restart
--- NOTE | 2020-02-18 11:17 | Progress Note ---
Assessment and Plan - Patient Problems (1) End stage renal disease on dialysis Current Visit: No Status: Chronic Plan to address problem: continue HD on MWF schedule. vasopressor support during HD prn to maintain MAP > 65mmhg (2) Pneumonia due to COVID-19 virus Current Visit: Yes Status: Acute Plan to address problem: continue treatment per infectious disease. (3) Acute respiratory failure with hypoxia Current Visit: No Status: Acute Plan to address problem: ventilator management by pulmonary/state's attorney (4) Volume overload Current Visit: Yes Status: Acute Qualifiers: Plan to address problem: Fluid status improved with HD (5) Hyponatremia Current Visit: No Status: Acute Plan to address problem: improving with optimizing volume status with HD. 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 (8) Anemia in CKD (chronic kidney disease) Current Visit: Yes Status: Acute Qualifiers: Chronic kidney disease stage: on chronic dialysis Qualified Code(s): N18.6 - End stage renal disease; D63.1 - Anemia in chronic kidney disease; Z99.2 - Dependence on renal dialysis Plan to address problem: CLARITA therapy with HD. (9) Secondary hyperparathyroidism (of renal origin) Current Visit: Yes Status: Chronic Plan to address problem: Continue on current outpatient phos binder regimen. Subjective Date of service: 02/18/20 Principal diagnosis: Pneumonia Interval history: pt intubated, sedated, receiving HD without acute issues Objective - Exam Narrative Exam: Exam reviewed in chart for PPE conservation - Vital Signs Vital signs: Vital Signs - 12hr 02/17/20 02/18/20 02/18/20 23:46 00:00 00:09 Temperature 100 F H Pulse Rate 93 H 94 H Pulse Rate [ 94 H From Monitor] Respiratory 17 19 Rate Blood Pressure 169/58 140/54 O2 Sat by Pulse 100 100 100 Oximetry O2 Sat by Pulse Oximetry [ Anterior Bilateral Throughout] O2 Sat by Pulse Oximetry [ Assessment] O2 Sat by Pulse Oximetry [ Posterior Bilateral Throughout] 02/18/20 02/18/2020 00:24 01:00 02:00 Temperature Pulse Rate 94 H 93 H 98 H Pulse Rate [ From Monitor] Respiratory 19 20 Rate Blood Pressure 140/54 136/54 136/51 O2 Sat by Pulse 100 100 100 Oximetry O2 Sat by Pulse Oximetry [ Anterior Bilateral Throughout] O2 Sat by Pulse Oximetry [ Assessment] O2 Sat by Pulse Oximetry [ Posterior Bilateral Throughout] 02/18/20 02/18/20 02/18/20 03:00 03:48 04:00 Temperature 99 F Pulse Rate 97 H 97 H 99 H Pulse Rate [ 90 From Monitor] Respiratory 18 19 Rate Blood Pressure 132/57 136/62 O2 Sat by Pulse 100 100 Oximetry O2 Sat by Pulse Oximetry [ Anterior Bilateral Throughout] O2 Sat by Pulse Oximetry [ Assessment] O2 Sat by Pulse Oximetry [ Posterior Bilateral Throughout] 02/18/20 02/18/20 02/18/20 04:55 05:00 05:06 Temperature Pulse Rate 91 H 97 H Pulse Rate [ From Monitor] Respiratory 20 Rate Blood Pressure 149/66 149/66 O2 Sat by Pulse 100 100 Oximetry O2 Sat by Pulse Oximetry [ Anterior Bilateral Throughout] O2 Sat by Pulse 100 Oximetry [ Assessment] O2 Sat by Pulse Oximetry [ Posterior Bilateral Throughout] 02/18/20 02/18/20 02/18/20 06:00 07:00 08:00 Temperature 98.2 F Pulse Rate 89 92 H 92 H Pulse Rate [ 88 From Monitor] Respiratory 20 23 24 Rate Blood Pressure 128/52 136/67 149/64 O2 Sat by Pulse 100 100 100 Oximetry O2 Sat by Pulse Oximetry [ Anterior Bilateral Throughout] O2 Sat by Pulse Oximetry [ Assessment] O2 Sat by Pulse Oximetry [ Posterior Bilateral Throughout] 02/18/20 02/18/20 02/18/20 08:45 09:00 09:15 Temperature Pulse Rate 87 85 Pulse Rate [ From Monitor] Respiratory Rate Blood Pressure 140/65 124/52 O2 Sat by Pulse 100 Oximetry O2 Sat by Pulse 98 Oximetry [ Anterior Bilateral Throughout] O2 Sat by Pulse Oximetry [ Assessment] O2 Sat by Pulse 98 Oximetry [ Posterior Bilateral Throughout] 02/18/20 02/18/20 02/18/20 09:30 09:45 10:00 Temperature Pulse Rate 88 89 90 Pulse Rate [ From Monitor] Respiratory Rate Blood Pressure 126/70 119/68 113/67 O2 Sat by Pulse Oximetry O2 Sat by Pulse Oximetry [ Anterior Bilateral Throughout] O2 Sat by Pulse Oximetry [ Assessment] O2 Sat by Pulse Oximetry [ Posterior Bilateral Throughout] 02/18/20 02/18/20 02/18/20 10:15 10:31 10:45 Temperature Pulse Rate 85 89 91 H Pulse Rate [ From Monitor] Respiratory Rate Blood Pressure 104/62 105/58 108/68 O2 Sat by Pulse Oximetry O2 Sat by Pulse Oximetry [ Anterior Bilateral Throughout] O2 Sat by Pulse Oximetry [ Assessment] O2 Sat by Pulse Oximetry [ Posterior Bilateral Throughout] 02/18/20 11:00 Temperature Pulse Rate 91 H Pulse Rate [ From Monitor] Respiratory Rate Blood Pressure 106/66 O2 Sat by Pulse Oximetry O2 Sat by Pulse Oximetry [ Anterior Bilateral Throughout] O2 Sat by Pulse Oximetry [ Assessment] O2 Sat by Pulse Oximetry [ Posterior Bilateral Throughout] - Lab 02/15/20 04:58 02/15/20 04:58 Most recent lab results ABG pH 7.351 pH Units (7.350-7.450) 02/08/20 20:45 ABG pCO2 58.7 mm Hg 02/08/20 20:45 ABG pO2 79.1 mm Hg (80.0-90.0) L 02/08/20 20:45 ABG HCO3 31.7 mmol/L (20.0-26.0) H 02/08/20 20:45 ABG O2 Saturation 95.6 % (95.0-99.0) 02/08/20 20:45 Calcium 9.6 mg/dL (8.4-10.2) 02/15/20 04:58 Phosphorus 3.30 mg/dL (2.5-4.5) 01/12/20 16:01 Magnesium 2.00 mg/dL (1.7-2.3) 01/13/20 06:11 Medications & Allergies - Medications Allergies/Adverse Reactions: Allergies cheese Allergy (Mild, Verified 12/20/19 10:19) Itching iodine Allergy (Mild, Verified 12/20/19 10:16) Anaphylaxis clonidine Allergy (Verified 12/19/19 04:13) Anaphylaxis shellfish derived Adverse Reaction (Verified 12/19/19 04:13) Angioedema Home Medications: Home Medications Medication Instructions Recorded Confirmed Last Taken Type Atorvastatin [Lipitor] 40 mg PO DAILY 11/06/19 01/13/20 01/02/20 10:00 History DULoxetine [Cymbalta] 30 mg PO QDAY #30 capsule 01/04/20 01/13/20 Unknown Rx Acetaminophen [Acetaminophen TAB] 650 mg PO Q4H PRN tablet 02/16/20 Unknown Rx AtorvaSTATin [Lipitor] 40 mg PO QHS tablet 02/16/20 Unknown Rx Insulin Glargine [Lantus VIAL] 15 units SUB-Q DAILY 30 Days units 02/16/20 Unknown Rx Lipase/Protease/Amylase [Pancreaze 1 each FEEDTUBE PRN PRN capsule 02/16/20 Unknown Rx 10,500 Unit] Lispro Insulin [HumaLOG] 0 unit SUB-Q Q6HR units 02/16/20 Unknown Rx Simple Syrup 15 ml FEEDTUBE PRN PRN oral.liqd 02/16/20 Unknown Rx Simple Syrup 30 ml FEEDTUBE PRN PRN oral.liqd 02/16/20 Unknown Rx Sodium Bicarbonate 325 mg FEEDTUBE PRN PRN tablet 02/16/20 Unknown Rx methylPREDNISolone Sod Suc 20 mg IV Q8HR vial 02/16/20 Unknown Rx [Solu-MEDROL] Active Medications: Generic Name Dose Route Start Last Admin Trade Name Freq PRN Reason Stop Dose Admin Acetaminophen 650 mg 01/09/20 16:33 02/18/20 00:40 Tylenol PO 650 mg Q4H PRN Administration Pain MILD(1-3)/Fever >100.5/MEANS Lipase/Protease/Amylase 1 each 01/23/20 14:28 02/07/20 13:18 Pancreestrella Albarran 10,500 Unit FEEDTUBE 1 each PRN PRN Administration For Clogged Feeding Tube Atorvastatin Calcium 40 mg 01/09/20 22:00 02/17/20 22:46 Lipitor PO 40 mg QHS PHILLY Administration Dextrose 50 ml 01/23/20 07:26 02/16/20 06:03 D50w (25gm) Syringe IV 50 ml Q30MIN PRN Administration BLOOD GLUCOSE < 70 Dextrose 25 ml 01/24/20 08:58 01/24/20 13:41 D50w (25gm) Syringe IV 25 ml Q4H PRN Administration BG < 80 MG/DL Docusate Sodium 100 mg 01/25/20 22:00 02/18/20 09:47 Colace PO 100 mg BID [facility] Administration Epoetin Helio 20,000 unit 02/04/20 12:00 02/04/20 13:00 Procrit SUB-Q 20,000 unit SILVERIO PHILLY Administration Famotidine 20 mg 01/09/20 22:00 02/17/20 09:50 Pepcid PO 20 mg DAILY PHILLY Administration Heparin Sodium (Porcine) 5,000 unit 02/07/20 10:00 02/18/20 09:47 Heparin SUB-Q 5,000 unit Q12HR PHILLY Administration Norepinephrine 4 mg in 250 mls @ 7.5 mls/hr 01/21/20 18:00 02/11/20 15:00 Levophed Drip 4 Mg/Ns 250 Ml IV 0 mcg/min TITR PHILLY 0 mls/hr Titration Protocol 2 MCG/MIN Sodium Chloride 100 mls @ 999 mls/hr 02/12/20 08:17 Nacl 0.9% IV SILVERIO PRN Hypotension Sodium Chloride 1,000 mls @ 50 mls/hr 02/15/20 08:00 Nacl 0.9% 1000 Ml IV DIRECT [facility] Insulin Glargine 15 units 02/10/20 13:00 02/18/20 09:48 Lantus SUB-Q 15 units DAILY [facility] Administration Insulin Human Lispro 0 unit 02/07/20 12:00 02/18/20 05:38 Humalog SUB-Q 2 unit Q6HR [facility] Administration Protocol Lorazepam 2 mg 01/23/20 15:36 Ativan IV Q10MIN PRN Agitation Methylprednisolone Sodium Succinate 20 mg 02/14/20 14:00 02/18/20 05:37 Solu-Medrol IV 20 mg Q8HR [facility] Administration Ondansetron HCl 4 mg 01/09/20 16:33 01/20/20 10:19 Zofran IV 4 mg Q8H PRN Administration Nausea And Vomiting Simple Syrup 15 ml 01/23/20 14:28 02/14/20 12:02 Simple Syrup FEEDTUBE 15 ml PRN PRN Administration Hypoglycemia Simple Syrup 30 ml 01/23/20 14:28 Simple Syrup FEEDTUBE PRN PRN Hypoglycemia Sodium Bicarbonate 325 mg 01/23/20 14:28 Sodium Bicarbonate FEEDTUBE PRN PRN For Clogged Feeding Tube Sodium Chloride 10 ml 01/09/20 22:00 02/18/20 09:49 Sodium Chloride Flush Syringe 10 Ml IV 10 ml BID PHILLY Administration Sodium Chloride 10 ml 01/09/20 16:33 Sodium Chloride Flush Syringe 10 Ml IV PRN PRN LINE FLUSH
[2020-02-18] MEDS ORDERED: SODIUM CHLORIDE*PRIMING MACHINE ONLY FOR DIALYSIS MC ONE (16:01)
[2020-02-18 16:08] VITALS: BP 139/69
--- NOTE | 2020-02-18 16:14 | Progress Note ---
Assessment and Plan Cultures: 01/10/2020 blood culture: No growth 01/21/2020 sputum culture: No growth 01/25/2020 blood culture: No growth 02/04/2020 blood culture: no growth A/P: 64/F with #Sepsis with shock: likely due to severe COVID pneumonia. Completed empiric Cefepime x 5 days. Now back on antibiotics. #Severe COVID pneumonia: very elevated inflammatory markers. S/p ivermectin x 1 on 01/21/2020 (off label use). S/p hydroxychloroquine with zinc x 5 days. Markers remain elevated. #Acute hypoxic resp failure: intubated, on the vent. Vent requirements not too high #ESRD on HD: nephrology following. #Thrombocytopenia: resolved #Elevated LFTs: etiology unclear. Bilirubin is normal. Alk phos and transaminases elevated. RUQ US showed no gall bladder, CBD appeared normal. Recs: Steroid taper. Pending trach + LTACH placement. Possibly today. Patient has been here for some time - initial positive test on 01/17/2020. Can be removed from precautions after 4 weeks from initial diagnosis. Lloyd Loza MD [facility] M: [phone] O: [phone] F: [phone] Subjective Date of service: 02/18/20 Principal diagnosis: Pneumonia Interval history: Remains afebrile. For discharge to LTAC today. Objective - Exam Narrative Exam: Physical Exam (reviewed in chart due to PPE conservation) Constitutional: intubated, on the vent Head, Ears, Nose: normocephalic, atraumatic Eyes: limited due to PPE conservation strategy Neck: intubated Oral: intubated Cardiovascular: limited due to PPE conservation strategy Respiratory: limited due to PPE conservation strategy GI: limited due to PPE conservation strategy Musculoskeletal: limited due to PPE conservation strategy Skin: limited due to PPE conservation strategy Hem/Lymphatic: limited due to PPE conservation strategy Psych: no agitation Neurological: intubated, on the vent, exam limited - Constitutional Vitals: Vital Signs Temp Pulse Resp BP Pulse Ox 98.2 F 93 H 19 139/69 94 02/18/20 08:00 02/18/20 15:00 02/18/20 15:00 02/18/20 15:00 05/04/20 15:00 Temperature -Last 24 Hours Temperature 98.2 F Temperature 99 F Temperature 100 F Temperature 98.2 F - Labs CBC & Chem 7: 02/15/20 04:58 02/15/20 04:58 Labs: Abnormal lab results 02/17/20 02/18/20 02/18/20 Range/Units 18:17 00:18 05:37 POC Glucose 193 H 227 H 168 H (70-105) 02/18/20 Range/Units 12:39 POC Glucose 188 H (70-105)
== END 2020-02-18 15:20 | DRG 4 ==
LOC: ED 12:02 → 4A 14:26 → INTOOBSV 14:26 → 4A 18:10 → OBSVTOIN 01-10 15:03 → 3A 01-10 16:18 → CC1 01-21 16:31
PROVIDERS: ADMIT Internal Medicine; ATTEND Hospitalist
PROC: 5A1D70Z Performance of Urinary Filtration, Intermittent, Less than 6 Hours Per Day (ICD-10-PCS; 2020-01-10)
PROC: 5A1D70Z Performance of Urinary Filtration, Intermittent, Less than 6 Hours Per Day (ICD-10-PCS; 2020-01-12)
PROC: 5A1D70Z Performance of Urinary Filtration, Intermittent, Less than 6 Hours Per Day (ICD-10-PCS; 2020-01-15)
PROC: 5A1D70Z Performance of Urinary Filtration, Intermittent, Less than 6 Hours Per Day (ICD-10-PCS; 2020-01-17)
PROC: 4A033R1 Measurement of Arterial Saturation, Peripheral, Percutaneous Approach (ICD-10-PCS; 2020-01-18)
PROC: 5A1D70Z Performance of Urinary Filtration, Intermittent, Less than 6 Hours Per Day (ICD-10-PCS; 2020-01-19)
PROC: 0BH17EZ Insertion of Endotracheal Airway into Trachea, Via Natural or Artificial Opening (ICD-10-PCS; principal; 2020-01-21)
PROC: 5A1955Z Respiratory Ventilation, Greater than 96 Consecutive Hours (ICD-10-PCS; 2020-01-21)
PROC: 5A1D70Z Performance of Urinary Filtration, Intermittent, Less than 6 Hours Per Day (ICD-10-PCS; 2020-01-22)
PROC: 5A1D70Z Performance of Urinary Filtration, Intermittent, Less than 6 Hours Per Day (ICD-10-PCS; 2020-01-23)
PROC: 5A1D70Z Performance of Urinary Filtration, Intermittent, Less than 6 Hours Per Day (ICD-10-PCS; 2020-01-24)
PROC: 5A1D70Z Performance of Urinary Filtration, Intermittent, Less than 6 Hours Per Day (ICD-10-PCS; 2020-01-25)
PROC: 5A1D70Z Performance of Urinary Filtration, Intermittent, Less than 6 Hours Per Day (ICD-10-PCS; 2020-01-26)
PROC: 5A1D70Z Performance of Urinary Filtration, Intermittent, Less than 6 Hours Per Day (ICD-10-PCS; 2020-01-28)
PROC: 5A1D70Z Performance of Urinary Filtration, Intermittent, Less than 6 Hours Per Day (ICD-10-PCS; 2020-01-30)
PROC: 5A1D70Z Performance of Urinary Filtration, Intermittent, Less than 6 Hours Per Day (ICD-10-PCS; 2020-02-01)
PROC: 5A1D70Z Performance of Urinary Filtration, Intermittent, Less than 6 Hours Per Day (ICD-10-PCS; 2020-02-02)
PROC: 30233N1 Transfusion of Nonautologous Red Blood Cells into Peripheral Vein, Percutaneous Approach (ICD-10-PCS; 2020-02-04)
PROC: 5A1D70Z Performance of Urinary Filtration, Intermittent, Less than 6 Hours Per Day (ICD-10-PCS; 2020-02-04)
PROC: 5A1D70Z Performance of Urinary Filtration, Intermittent, Less than 6 Hours Per Day (ICD-10-PCS; 2020-02-06)
PROC: 5A1D70Z Performance of Urinary Filtration, Intermittent, Less than 6 Hours Per Day (ICD-10-PCS; 2020-02-08)
PROC: 5A1D70Z Performance of Urinary Filtration, Intermittent, Less than 6 Hours Per Day (ICD-10-PCS; 2020-02-11)
PROC: 5A1D70Z Performance of Urinary Filtration, Intermittent, Less than 6 Hours Per Day (ICD-10-PCS; 2020-02-12)
PROC: 5A1D70Z Performance of Urinary Filtration, Intermittent, Less than 6 Hours Per Day (ICD-10-PCS; 2020-02-13)
PROC: 0B110F4 Bypass Trachea to Cutaneous with Tracheostomy Device, Open Approach (ICD-10-PCS; 2020-02-15)
PROC: 5A1D70Z Performance of Urinary Filtration, Intermittent, Less than 6 Hours Per Day (ICD-10-PCS; 2020-02-15)
PROC: 0DH63UZ Insertion of Feeding Device into Stomach, Percutaneous Approach (ICD-10-PCS; 2020-02-15)
PROC: 5A1D70Z Performance of Urinary Filtration, Intermittent, Less than 6 Hours Per Day (ICD-10-PCS; 2020-02-18)
DX: A41.89 Other specified sepsis (principal); U07.1 COVID-19; J12.89 Other viral pneumonia; J96.01 Acute respiratory failure with hypoxia; N18.6 End stage renal disease; I50.43 Acute on chronic combined systolic (congestive) and diastolic (congestive) heart failure; R65.21 Severe sepsis with septic shock; G92 Toxic encephalopathy; I21.4 Non-ST elevation (NSTEMI) myocardial infarction; E87.1 Hypo-osmolality and hyponatremia; I13.2 Hypertensive heart and chronic kidney disease with heart failure and with stage 5 chronic kidney disease, or end stage renal disease; N25.81 Secondary hyperparathyroidism of renal origin; Z99.11 Dependence on respirator [ventilator] status; J44.1 Chronic obstructive pulmonary disease with (acute) exacerbation; J44.0 Chronic obstructive pulmonary disease with (acute) lower respiratory infection; Z66 Do not resuscitate; K21.9 Gastro-esophageal reflux disease without esophagitis; E11.21 Type 2 diabetes mellitus with diabetic nephropathy; D63.1 Anemia in chronic kidney disease; I25.10 Atherosclerotic heart disease of native coronary artery without angina pectoris; E87.5 Hyperkalemia; D69.6 Thrombocytopenia, unspecified; Z99.2 Dependence on renal dialysis; E87.70 Fluid overload, unspecified; E78.5 Hyperlipidemia, unspecified; F32.9 Major depressive disorder, single episode, unspecified; Z95.5 Presence of coronary angioplasty implant and graft; E11.22 Type 2 diabetes mellitus with diabetic chronic kidney disease; Z79.4 Long term (current) use of insulin; Z91.011 Allergy to milk products; Z91.041 Radiographic dye allergy status; Z88.8 Allergy status to other drugs, medicaments and biological substances; Z85.3 Personal history of malignant neoplasm of breast; Z90.710 Acquired absence of both cervix and uterus; Z79.899 Other long term (current) drug therapy; I25.2 Old myocardial infarction; Z82.49 Family history of ischemic heart disease and other diseases of the circulatory system; Z87.891 Personal history of nicotine dependence
CPT/HCPCS: 36415; 36430; 36600; 71045; 74018; 76700; 78452; 80048; 80053; 80061; 80074; 80076; 80202; 82728; 82803; 82947; 82962; 83036; 83615; 83735; 83880; 84100; 84478; 84484; 85007; 85025; 85027; 85379; 85520; 85610; 85730; 86140; 86850; 86900; 86901; 86920; 87040; 87070; 87205; 87635; 93005; 93010; 93017; 94002; 94003; 94760; G0378; A9270-GY; A9502; J0171; J0692; J0696; J0885; J1200; J1450; J1644; J1650; J1815; J1956; J2270; J2370; J2405; J2704; J2785; J2920; J3010; J3370; J3475; J7030; J7040; J7050; J7120; P9016; U0003